=== PATIENT | female | born 1970 | race Caucasian/White ===

== ENCOUNTER → 2021-09-23 14:27 | Outpatient (CLI) | payer MEDICAID, SELFPAY ==
[2021-09-24 09:45] LABS: HIV - WCH Non-Reactive (Nonreactive); Hepatitis B Surface Antibody Non-Reactive; Hepatitis B Surface Antigen Non-Reactive (Nonreactive); Syphilis Antibodies Reactive
[2021-09-25 07:08] LABS: HEPATITIS B SURFACE AG Negative (Negative); Hepatitis A IgM Antibody Negative (Negative); Hepatitis B Core AB IgM Negative (Negative)
[2021-09-25 13:31] LABS: Hep C Antibodies <0.1 s/co ratio (0.0-0.9)
== END ==
PROVIDERS: Referring Provider Dermatology; Visit Provider Dermatology
DX: L08.9 Local infection of the skin and subcutaneous tissue, unspecified (principal)
CPT/HCPCS: 36415; 80074; 86703; 86706; 86780; 87340

== ENCOUNTER 2022-11-18 17:25 | Inpatient (IN) | payer MEDICAID, SELFPAY ==
[2022-11-18 17:30] VITALS: BP 133/81; PULSE 64; RESP 18; TEMP 35.8; O2SAT 96; BMI 30.4
[2022-11-18 17:38] VITALS: BMI 47.6
--- NOTE | 2022-11-18 18:05 | EX.ED.DYSGE1 ---
HPI History of Present Illness Chief Complaint: Confusion Informant: patient and family Onset/Context/Timing Onset: Today Context: Gradual Onset Timing: Continuous Quality: Confusion Location: Generalized Worsened by: Nothing Relieved by: Nothing Narrative Narrative: Patient presents with confusion that became worse today. Patient was admitted to [facility] yesterday and was discharged today. Brother states the patient is more confused today. Brother states patient has not been taking her lactulose as scheduled. Brother states that whenever she misses a dose of lactulose her confusion becomes worse. Brother states that patient told him that she needed to go get her car keys and then went to the refrigerator. Brother states the patient walks out of his house and is unsure where she is going. Patient is confused and is a poor informant. Prior similar symptoms: Yes PFSH [facility] Medical History Acidosis Alcohol abuse Alcoholic cirrhosis of liver without ascites Anxiety and depression Bipolar disorder Cirrhosis Edema Essential (primary) hypertension Hepatic encephalopathy Iron deficiency anemia Lactic acidosis Low urine output Pancytopenia Portal hypertension Splenomegaly Thrombocytopenia Urea cycle metabolism disorder UTI (urinary tract infection) Home Medications buspirone 10 mg tablet 10 mg PO TID 10/28/22 [History Last Taken Unknown] citalopram 40 mg tablet 40 mg PO DAILY 10/28/22 [History Last Taken Unknown] clonidine HCl 0.1 mg tablet 0.1 mg PO PRN 10/28/22 [History Last Taken Unknown] ferrous sulfate 325 mg (65 mg iron) tablet 325 mg PO DAILY 10/28/22 [History Last Taken Unknown] furosemide 20 mg tablet 20 mg PO BID 10/28/22 [History Last Taken Unknown] lactulose 10 gram/15 mL oral solution (Constulose) 45 ml PO Q6H 10/28/22 [History Last Taken Unknown] prazosin 2 mg capsule 2 mg PO QHS 10/28/22 [History Last Taken Unknown] propranolol 10 mg tablet 10 mg PO TID 10/28/22 [History Last Taken Unknown] quetiapine 50 mg tablet 50 mg PO QHS 10/28/22 [History Last Taken Unknown] rifaximin 550 mg tablet (Xifaxan) 550 mg PO BID 10/28/22 [History Last Taken Unknown] Allergy/AdvReac Type Severity Reaction Status Date / Time No Known Allergies Allergy Verified 11/18/22 17:29 Family History Grandmother Breast cancer Surgical History History of ankle surgery Hx of section Hx of cholecystectomy Hx of hand surgery Hx of shoulder surgery Hx of total knee replacement Social History Smoking Status: Current every day smoker tobacco type: e-cigarettes alcohol intake: former year quit: 2021 details: 11/26/21 substance use type: amphetamines ROS ROS ED Constitutional Constitutional ED: Reports chills and subjective; Denies fever(s) Eyes Eyes: Denies blurry vision or change in vision ENT ENT ED: Denies rhinorrhea or sore throat Cardiovascular Cardiovascular: Denies chest pain or palpitations Respiratory/Chest Respiratory/Chest: Denies cough or dyspnea Gastrointestinal Gastrointestinal: Reports nausea; Denies vomiting Genitourinary Genitourinary ED: Denies dysuria or hematuria Musculoskeletal Musculoskeletal: Denies back pain or neck pain Integumentary Denies abscess or rash Neurologic Neurologic: Denies headache(s) or weakness Allergic/Immunologic Allergic/Immunologic ED: Denies mouth swelling or urticaria EXAM Physical Exam Const Vital Signs: 11/18/22 17:30 11/18/22 19:29 Temperature 96.5 F L 97.3 F L Temperature Source Temporal Temporal Pulse Rate 64 73 Respiratory Rate 18 15 Blood Pressure 133/81 H 134/80 H Blood Pressure Mean 98 98 Pulse Ox 96 97 Oxygen Delivery Method Room Air Room Air Positive well nourished, well developed and obese General Appearance ED: well developed and NAD Nutritional Appearance: obese HEENT Reports moist mucous membranes Neck supple and no JVD Resp normal respiratory effort and clear to auscultation bilaterally Cardio regular rate, regular rhythm and no murmurs GI non-tender GI Narrative: There is some mild abdominal distention due to ascites. There is no tenderness, rebound, or guarding. Auscultation: normoactive bowel sounds Palpation: soft Extremity normal to inspection General Extremety ED: Negative for edema or tenderness General Extremity: Negative for edema Neuro CN's II-XII intact bilaterally and no sensory deficits noted Sensorium / Orientation: alert Motor Exam: strength 5/5 throughout Psych mental status grossly normal Skin no rashes or lesions noted MDM MDM MDM Narrative Medical decision making narrative: Differential diagnosis includes hepatic encephalopathy, stroke, anemia, electrolyte abnormality, pancreatitis, infection, and sepsis. CBC will be obtained to assess for leukocytosis and anemia. Comprehensive metabolic profile will be obtained to assess for electrolyte abnormality, renal function, and hepatic function. Lipase will be obtained to check for pancreatitis. Ammonia level will be obtained to check for hepatic encephalopathy. PT was INR and PTT will be obtained to assess for coagulopathy and liver function. CT scan of the brain will be obtained to assess for stroke or intracranial bleeding. Lactate will be obtained to assess for sepsis or infection. Urinalysis will be obtained to check for urinary tract infection and hematuria. Lab Data Attestation: I reviewed the patient's lab results. Lab results narrative: CBC was reviewed. White blood cell count was 4.3. Platelets were 83. Prior outpatient results were reviewed and were similar. PT with INR and PTT were reviewed and were essentially within normal limits. Comprehensive metabolic profile was reviewed. Alkaline phosphatase was mildly elevated at 155 and AST was 43. ALT was normal. Bilirubin was normal. Lipase was reviewed and was normal. Ammonia was reviewed and was elevated at 82. Lactate was reviewed and was normal. Urinalysis was reviewed. There is no evidence of urinary tract infection or hematuria. Labs: Laboratory Results - last 24 hr 11/18/22 11/18/22 11/18/22 17:50 17:50 17:50 WBC 4.3 L RBC 4.70 Hgb 13.0 Hct 41.5 MCV 88.3 MCH 27.7 MCHC 31.3 L RDW Std Deviation 67.9 H RDW Coeff of Stephon 21.8 H Plt Count 83 L MPV 9.8 Immature Gran % (Auto) 0.200 Neut % (Auto) 52.2 Lymph % (Auto) 25.1 [place] % (Auto) 14.1 H Eos % (Auto) 7.5 H Baso % (Auto) 0.9 Absolute Neuts (auto) 2.2 Absolute Lymphs (auto) 1.07 Nucleated RBC % 0 Differential Comment SCANNED Hypochromasia 1+ Anisocytosis 2+ Microcytosis 1+ Macrocytosis 1+ PT 14.9 INR 1.2 APTT 34.2 Sodium 141 Potassium 4.0 Chloride 110 H Carbon Dioxide 26.0 Anion Gap 5 BUN 15 Creatinine 0.81 Estim Creat Clear Calc 68.56 Est GFR (MDRD) Af Amer 95 Est GFR (MDRD) Non-Af 78 BUN/Creatinine Ratio 18.5 Glucose 124 H Lactic Acid Calcium 9.7 Total Bilirubin 0.90 AST 43 H ALT 33 Alkaline Phosphatase 155 H Ammonia Total Protein 6.9 Albumin 3.3 Globulin 3.6 Albumin/Globulin Ratio 0.9 Lipase 187 Urine Color Urine Clarity Urine pH Ur Specific [place] Urine Protein Urine Glucose (UA) Urine Ketones Urine Occult Blood Urine Nitrite Urine Bilirubin Urine Urobilinogen Ur Leukocyte Esterase Urine RBC Urine WBC Ur Squamous Epith Cells Urine Bacteria Urine Mucus 11/18/22 11/18/22 11/18/22 17:50 17:50 17:50 WBC RBC Hgb Hct MCV MCH MCHC RDW Std Deviation RDW Coeff of Stephon Plt Count MPV Immature Gran % (Auto) Neut % (Auto) Lymph % (Auto) [place] % (Auto) Eos % (Auto) Baso % (Auto) Absolute Neuts (auto) Absolute Lymphs (auto) Nucleated RBC % Differential Comment Hypochromasia Anisocytosis Microcytosis Macrocytosis PT INR APTT Sodium Potassium Chloride Carbon Dioxide Anion Gap BUN Creatinine Estim Creat Clear Calc Est GFR (MDRD) Af Amer Est GFR (MDRD) Non-Af BUN/Creatinine Ratio Glucose Lactic Acid 1.4 Calcium Total Bilirubin AST ALT Alkaline Phosphatase Ammonia 82.0 H Total Protein Albumin Globulin Albumin/Globulin Ratio Lipase Urine Color Yellow Urine Clarity Clear Urine pH 6.0 Ur Specific [place] 1.020 Urine Protein Negative Urine Glucose (UA) NEGATIVE Urine Ketones Negative Urine Occult Blood Negative Urine Nitrite Negative Urine Bilirubin 1 H Urine Urobilinogen 8 H Ur Leukocyte Esterase Negative Urine RBC 0 SEEN Urine WBC 0-5 SEEN Ur Squamous Epith Cells 0-5 SEEN Urine Bacteria RARE Urine Mucus 0 SEEN Treatment and Re-Evaluation Narrative: Patient and her brother were advised of her findings. Patient was given a dose of lactulose here initially. Patient was given a repeat dose of lactulose. Case was discussed with the hospitalist. She will admit the patient to her service. Patient and brother understand and are agreeable with the plan. All questions were answered. Discharge Plan Dx/Rx/DC Orders Clinical Impression: Hepatic encephalopathy, Thrombocytopenia, Cirrhosis of liver Disposition Disposition: Acute Care [facility]
[2022-11-18 18:21] LABS: Mucous, Urine 0 SEEN /hpf (<or=2+); Red Blood Cells-Urine 0 SEEN /hpf (0-5)
[2022-11-18 18:23] LABS: Absolute Lymphocyte Count 1.07 X10^3/uL (0.83-4.51); Absolute Neutrophil Count 2.2 X10^3/uL (2.0-7.7); Basophil# 0.04 X10^3/uL; Basophil% 0.9 % (0-1); Eosinophil# 0.32 X10^3/uL; Eosinophils% 7.5 % (0-5); Hematocrit 41.5 % (37-47); Lymphocyte # 1.07 X10^3/ul (0.83-4.51); Lymphocyte % 25.1 % (19-41); Mean Corp Hgb Conc 31.3 g/dL (32-36); Mean Corpuscular Hgb 27.7 pg (27.0-32.0); Mean Corpuscular Volume 88.3 fL (81-99); Mean Platelet Vol. 9.8 fl (6.2-12.0); Monocyte% 14.1 % (0-10); NRBC Flagged by Analyzer 0 % (0-5); Neutrophil # 2.23 X10^3/uL (2.7-7.7); Neutrophil % 52.2 % (47-70); POSITIVE COUNT YES; POSITIVE MORPHOLOGY YES; Platelet Count 83 K/mm3 (150-450); RBC Distribution Width CV 21.8 % (11.6-14.6); RBC Distribution Width SD 67.9 fl (35.1-43.9); White Blood Count 4.3 K/mm3 (4.4-11.0)
[2022-11-18 18:25] LABS: Differential Indicated SCAN CRITERIA MET
[2022-11-18 18:31] LABS: International Normalized Ratio 1.2; Prothrombin Time (Protime)PT. 14.9 SECONDS (11.7-14.9)
[2022-11-18 18:32] LABS: Partial Thromboplast Time 34.2 Seconds (24.1-36.2)
[2022-11-18 18:52] LABS: Color, Urine Yellow (Yellow); Glucose, Dipstick NEGATIVE (Normal); Urine Clarity Clear (Clear)
[2022-11-18 18:53] LABS: Ketone-Dipstick Negative (Negative); Leukocyte Esterase-Dipstick Negative /ul (Negative); Nitrite-Dipstick Negative (Negative); Occult Blood-Urine Negative /ul (Negative); Protein-Dipstick Negative (Negative); Urine Bilirubin Dipstick 1 mg/dL (Negative); Urine Urobilinogen 8 mg/dl (Normal)
[2022-11-18 18:54] LABS: White Blood Cells 0-5 SEEN /hpf (0-5)
[2022-11-18 18:55] LABS: Bacteria RARE /hpf (None Seen); Differential Comment SCANNED; Lactic Acid 1.4 mmol/L (0.4-1.9); Squamous Epithelial Cells - UA 0-5 SEEN /hpf (5-10)
[2022-11-18 18:56] LABS: Anisocytosis 2+; Hypochromasia 1+; Macrocytosis 1+; Microcytosis 1+
[2022-11-18 18:57] LABS: ALB/GLOB Ratio 0.9 RATIO (0.9-2.4); AST(SGOT) 43 U/L (15-37); Alanine Aminotransfer ALT/SGPT 33 U/L (13-56); Albumin, Serum 3.3 g/dL (3.2-5.0); Alkaline Phosphatase 155 U/L (45-117); Anion Gap 5 (5-15); BUN 15 mg/dL (7-18); BUN/Creat Ratio 18.5 RATIO (10-20); Calcium,Total 9.7 mg/dL (8.5-10.1); Chloride 110 mmol/L (98-107); Creatinine, Serum 0.81 mg/dL (0.55-1.02); EST Glomerular Filtration Rate 78 mL/min (>60); Est Glom Filt Rate - Afr Amer 95 mL/min (>60); Estimated Creatinine Clearance 68.56 ml/min; Globulin 3.6 g/dL (2.2-4.2); Glucose 124 mg/dL (74-106); Lipase 187 U/L (73-393); Protein, Total 6.9 g/dL (6.4-8.2); Sodium Level 141 mmol/L (136-145)
[2022-11-18] MEDS: Lactulose 20 GM/30 ML UDC 10 GM PO ×2 (19:25→20:21)
[2022-11-18 19:29] VITALS: BP 134/80; PULSE 73; RESP 15; TEMP 36.3; O2SAT 97
--- NOTE | 2022-11-18 20:19 | PCM.HP.STD ---
HPI - General General Date of Admission: 11/18/22 Date of Service: 11/18/22 Chief Complaint: Confusion. HPI Narrative The patient is a 52 y/o F w/ PMHx: Morbid Obesity, Chronic EtOH Liver Cirrhosis w/ associated Chronic pancytopenia/Portal HTN/Splenomegaly reporting sobriety since 2021, Polysubstance abuse (Meth), HTN, HLD, Anxiety and Depression/Bipolar disorder, Chronic anemia/Fe deficiency anemia, Former cigarette tobacco use transitioned to vaping who presents to the [facility] ED on 11/18/22 with history of increased confusion over the last several days, progressively worsening on day of presentation recently admitted at [place] in hospital day prior however she was discharged today despite her increased confusion per family report and reportedly not taking her scheduled lactulose as a result with progressively worsening confusion prompting family eventually bring her in for evaluation. Patient does admit that she some times when she is confused has difficulty remembering to take her lactulose regimen. She does state that she remains sober and clean since 11/26/2021. Work-up in the ED included T97.3, heart 73, BP 134/80, respiratory rate 15, 97% on room air, CBC with WC 4.3, hemoglobin 13, platelet 83 without marked shift, unremarkable coags, CMP with chloride 110, glucose 124, hepatic profile with total bili 0.90, AST/ALT 43/33, alk phos 155, ammonia level 82, lipase 187, urinalysis with no obvious evidence of UTI. In the ED patient ministered lactulose 10 mg p.o. x1. [facility] Medical History Acidosis Alcohol abuse Alcoholic cirrhosis of liver without ascites Anxiety and depression Bipolar disorder Cirrhosis Edema Essential (primary) hypertension Hepatic encephalopathy Iron deficiency anemia Lactic acidosis Low urine output Pancytopenia Portal hypertension Splenomegaly Thrombocytopenia Urea cycle metabolism disorder UTI (urinary tract infection) Home Medications buspirone 10 mg tablet 10 mg PO TID 10/28/22 [History Last Taken Unknown] citalopram 40 mg tablet 40 mg PO DAILY 10/28/22 [History Last Taken Unknown] clonidine HCl 0.1 mg tablet 0.1 mg PO PRN 10/28/22 [History Last Taken Unknown] ferrous sulfate 325 mg (65 mg iron) tablet 325 mg PO DAILY 10/28/22 [History Last Taken Unknown] furosemide 20 mg tablet 20 mg PO BID 10/28/22 [History Last Taken Unknown] lactulose 10 gram/15 mL oral solution (Constulose) 45 ml PO Q6H 10/28/22 [History Last Taken Unknown] prazosin 2 mg capsule 2 mg PO QHS 10/28/22 [History Last Taken Unknown] propranolol 10 mg tablet 10 mg PO TID 10/28/22 [History Last Taken Unknown] quetiapine 50 mg tablet 50 mg PO QHS 10/28/22 [History Last Taken Unknown] rifaximin 550 mg tablet (Xifaxan) 550 mg PO BID 10/28/22 [History Last Taken Unknown] Allergy/AdvReac Type Severity Reaction Status Date / Time No Known Allergies Allergy Verified 11/18/22 17:29 Family History Grandmother Breast cancer other (Patient denies any marked maternal or paternal family history interim parents including heart disease, diabetes, cancer, substance abuse.) Surgical History History of ankle surgery Hx of section Hx of cholecystectomy Hx of hand surgery Hx of shoulder surgery Hx of total knee replacement Social History (Updated 11/18/22 @ 20:[address] Sherri Dave MD) Smoking Status: Current every day smoker tobacco type: e-cigarettes Electronic Cigarette Use: with nicotine how long ago did patient quit smoking: Transitioned from cig tob to vaping, heavy currently. alcohol intake: former year quit: 2021 details: 11/26/21 substance use type: other details: Former amphetamine/meth use, clean since 11/26/21. ROS ROS Narrative Admission Review of Systems: CONSTITUTIONAL: No weight loss, fever, chills, + weakness or fatigue. HEENT: Eyes: No visual loss, blurred vision, double vision or yellow sclerae. Ears, Nose, Throat: No hearing loss, sneezing, congestion, runny nose or sore throat. SKIN: No rash or itching, lesions, wounds. CARDIOVASCULAR: No chest pain, chest pressure or chest discomfort, palpitations, edema, orthopnea, syncopal events. RESPIRATORY: No shortness of breath, cough or sputum, wheezing, hemoptysis. GASTROINTESTINAL: + anorexia, nausea, No vomiting or diarrhea, abdominal pain, melena, BRBPR. GENITOURINARY: No dysuria, frequency, urgency or retention. NEUROLOGICAL: + Confusion. No headache, dizziness, syncope, paralysis, ataxia, numbness or tingling in the extremities, focal weakness, change in bowel or bladder control, seizure. MUSCULOSKELETAL: + muscle, back pain, joint pain or stiffness. HEMATOLOGIC: + anemia, bleeding or bruising. LYMPHATICS: No enlarged nodes. No history of splenectomy. PSYCHIATRIC: + history of depression or anxiety. ENDOCRINOLOGIC: No reports of sweating, cold or heat intolerance. No polyuria or polydipsia. ALLERGIES: No history of asthma, hives, eczema or rhinitis. Vital Signs Vital Signs Vital Signs: 11/18/22 17:30 11/18/22 19:29 Temperature 96.5 F L 97.3 F L Temperature Source Temporal Temporal Pulse Rate 64 73 Respiratory Rate 18 15 Blood Pressure 133/81 H 134/80 H Blood Pressure Mean 98 98 Pulse Ox 96 97 Oxygen Delivery Method Room Air Room Air Weight Weight: 277 lb 5.464 oz Body Mass Index (BMI) 47.6 Physical Exam Narrative Physical Examination: General: Awake, alert, oriented to self, place and some recent events but still having difficulty recalling the last several days and per family has not been herself and not able to function appropriately, confusing objects, currently remain cooperative, seated upright in the ED, fatigued otherwise no acute distress. Skin: Normal color, normal turgor, no icterus, no cyanosis. HEENT: AT/NC, EOMI, PERRLA, mildly dry MM, no carotid bruits or JVD noted; however, thickened neck makes evaluation to. Lungs: Diminished, greater bases appropriate effort, no rales, ronchi or wheezing. Heart: Currently regular rate and rhythm; no gallop, rub audible. Abdomen: Soft, morbidly obese, NTTP, difficult to assess distention given habitus, normal BS, difficult to assess HSM given habitus Extremities: No cyanosis, clubbing, or edema. Neurological: Patient awake, alert, oriented as noted cognitive function improving but per family still not baseline intact with confusion; pupils equally reactive to light and accommodation, cranial nerves II-XII grossly normal, moving all 4 extremities, no focal deficits, strength mildly to moderately global decrease secondary to acute presentation. Psychiatric: Affect appears mildly fatigued, no acute evidence of depressive or anxiety feelings but does have underlying history. Results Lab / Micro Data Result Diagrams: 11/18/22 17:50 11/18/22 17:50 Labs: Laboratory Results - last 24 hr 11/18/22 17:50: WBC 4.3 L, RBC 4.70, Hgb 13.0, Hct 41.5, MCV 88.3, MCH 27.7, MCHC 31.3 L, RDW Std Deviation 67.9 H, RDW Coeff of Stephon 21.8 H, Plt Count 83 L, MPV 9.8, Immature Gran % (Auto) 0.200, Neut % (Auto) 52.2, Lymph % (Auto) 25.1, [place] % (Auto) 14.1 H, Eos % (Auto) 7.5 H, Baso % (Auto) 0.9, Absolute Neuts (auto) 2.2, Absolute Lymphs (auto) 1.07, Nucleated RBC % 0, Differential Comment SCANNED, Hypochromasia 1+, Anisocytosis 2+, Microcytosis 1+, Macrocytosis 1+ 11/18/22 17:50: PT 14.9, INR 1.2, APTT 34.2 11/18/22 17:50: Sodium 141, Potassium 4.0, Chloride 110 H, Carbon Dioxide 26.0, Anion Gap 5, BUN 15, Creatinine 0.81, Estim Creat Clear Calc 68.56, Est GFR (MDRD) Af Amer 95, Est GFR (MDRD) Non-Af 78, BUN/Creatinine Ratio 18.5, Glucose 124 H, Calcium 9.7, Total Bilirubin 0.90, AST 43 H, ALT 33, Alkaline Phosphatase 155 H, Total Protein 6.9, Albumin 3.3, Globulin 3.6, Albumin/Globulin Ratio 0.9, Lipase 187 11/18/22 17:50: Ammonia 82.0 H 11/18/22 17:50: Lactic Acid 1.4 11/18/22 17:50: Urine Color Yellow, Urine Clarity Clear, Urine pH 6.0, Ur Specific [place] 1.020, Urine Protein Negative, Urine Glucose (UA) NEGATIVE, Urine Ketones Negative, Urine Occult Blood Negative, Urine Nitrite Negative, Urine Bilirubin 1 H, Urine Urobilinogen 8 H, Ur Leukocyte Esterase Negative, Urine RBC 0 SEEN, Urine WBC 0-5 SEEN, Ur Squamous Epith Cells 0-5 SEEN, Urine Bacteria RARE, Urine Mucus 0 SEEN Assessment & Plan Assessment/Plan (1) Hepatic encephalopathy: PLAN: Plan The patient is a 52 y/o F w/ PMHx: Morbid Obesity, Chronic EtOH Liver Cirrhosis w/ associated Chronic pancytopenia/Portal HTN/Splenomegaly reporting sobriety since 2021, Polysubstance abuse (Meth), HTN, HLD, Anxiety and Depression/Bipolar disorder, Chronic anemia/Fe deficiency anemia, Former cigarette tobacco use transitioned to vaping who presents to the [facility] ED on 11/18/22 with history of increased confusion over the last several days, progressively worsening on day of presentation recently admitted at [place] in hospital day prior however she was discharged today despite her increased confusion per family report and reportedly not taking her scheduled lactulose as a result with progressively worsening confusion prompting family eventually bring her in for evaluation. #1. Acute hepatic encephalopathy with underlying chronic alcoholic liver cirrhosis with associated chronic pancytopenia/portal hypertension/spinal megaly reportedly so: Will admit to medical surgical floor, maintain on low Na/DM diet, will initiate aggressive lactulose regimen, continue patient home rifaximin, propranolol, Lasix home regimen, per review of current list not on spironolactone. We will continue closely monitor, maintain on fall and aspiration precautions and if necessary may involve GI #2. Anxiety and depression: We will continue patient home citalopram and BuSpar as well as Seroquel regimen once confusion has improved given acute presentation hepatic encephalopathy. #3. Chronic anemia, iron deficiency anemia: Admission hemoglobin 13, stable, continue trending and iron supplementation as able. #4. Hypertension: Continue home regimen including Lasix, prazosin, propranolol with hold parameters as needed, PRN hydralazine. #5. Hyperlipidemia: Not on statin therapy, defer given underlying history. #6. Tobacco Abuse: Prior cigarette tobacco use with transition to vaping encouraged vaping tobacco cessation, inpatient consultation per RT, NR if desired. #7. Former alcohol abuse with associated chronic alcoholic liver cirrhosis as noted #1: Encourage continued sobriety, case management consulted. #8. Former polysubstance abuse: Notes history of previous amphetamine/methamphetamine, encourage continued clean status, reports clean since 11/26/2021. #9. Obesity: Weight loss and lifestyle changes encouraged. #10. DVT prophylaxis: SCDs, given liver disease will hold on chemoprophylaxis, encourage ambulation is improving. Admission Evaluation Time spent evaluating chart, patient history, patient evaluation, care planning and discussion with specialists: 76 minutes. Charges/Coding Visit Charges Inpatient E&M: 25737 Init Hosp L3
[2022-11-18 20:43] LABS: Magnesium 2.2 mg/dL (1.6-2.6); Phosphorus 3.6 mg/dL (2.5-4.9)
[2022-11-18 21:15] VITALS: BMI 42.9
[2022-11-18 21:20] VITALS: BP 151/87; PULSE 67; RESP 18; TEMP 37.2; O2SAT 97
[2022-11-18] MEDS: busPIRone 5 MG Tablet 10 MG PO (22:37)
[2022-11-18] MEDS: Furosemide 20 MG Tablet PO (22:37)
[2022-11-18] MEDS: QUEtiapine 25 MG Tablet 50 MG PO (22:37)
[2022-11-18] MEDS: MELATONIN 3 MG TABLET PO (22:37)
[2022-11-18] MEDS: rifAXIMin 550 MG Tablet PO (22:37)
[2022-11-18] MEDS: Doxazosin 1 MG Tablet 2 MG PO (22:37)
[2022-11-18] MEDS: Propranolol 10 MG Tablet PO (22:37)
[2022-11-18] MEDS: Acetaminophen 500 MG Tablet PO (22:37)
[2022-11-18] MEDS: Ondansetron 4 MG/2 ML Vial IV (22:43)
[2022-11-18] MEDS: 0.9% Saline Lock 10 ML Syringe IV (22:43)
[2022-11-19 04:01] VITALS: BP 124/67; PULSE 68; RESP 18; TEMP 36.9; O2SAT 96
[2022-11-19] MEDS: Lactulose 20 GM/30 ML UDC PO ×4 (05:22→21:15)
[2022-11-19] MEDS: Propranolol 10 MG Tablet PO ×3 (05:22→21:05)
[2022-11-19] MEDS: busPIRone 5 MG Tablet 10 MG PO (05:22)
[2022-11-19 06:10] LABS: Absolute Lymphocyte Count 1.38 X10^3/uL (0.83-4.51); Absolute Neutrophil Count 2.3 X10^3/uL (2.0-7.7); Basophil# 0.05 X10^3/uL; Eosinophil# 0.38 X10^3/uL; Eosinophils% 7.9 % (0-5); Hematocrit 39.5 % (37-47); Hemoglobin 12.6 g/dL (12.0-15.0); Lymphocyte # 1.38 X10^3/ul (0.83-4.51); Lymphocyte % 28.8 % (19-41); Mean Corp Hgb Conc 31.9 g/dL (32-36); Mean Corpuscular Hgb 27.9 pg (27.0-32.0); Mean Corpuscular Volume 87.6 fL (81-99); Monocyte% 14.6 % (0-10); NRBC Flagged by Analyzer 0 % (0-5); Neutrophil # 2.27 X10^3/uL (2.7-7.7); Neutrophil % 47.3 % (47-70); POSITIVE COUNT YES; POSITIVE MORPHOLOGY YES; Platelet Count 86 K/mm3 (150-450); RBC Distribution Width CV 21.9 % (11.6-14.6); RBC Distribution Width SD 67.6 fl (35.1-43.9); Red Blood Count 4.51 M/mm3 (4.2-5.4); White Blood Count 4.8 K/mm3 (4.4-11.0)
[2022-11-19 06:25] LABS: Differential Indicated SCAN CRITERIA MET
[2022-11-19 06:48] LABS: ALB/GLOB Ratio 0.8 RATIO (0.9-2.4); AST(SGOT) 45 U/L (15-37); Alanine Aminotransfer ALT/SGPT 32 U/L (13-56); Albumin, Serum 3.1 g/dL (3.2-5.0); Alkaline Phosphatase 142 U/L (45-117); Anion Gap 9 (5-15); BUN 14 mg/dL (7-18); BUN/Creat Ratio 16.8 RATIO (10-20); Calcium,Total 9.2 mg/dL (8.5-10.1); Chloride 108 mmol/L (98-107); Creatinine, Serum 0.84 mg/dL (0.55-1.02); EST Glomerular Filtration Rate 76 mL/min (>60); Est Glom Filt Rate - Afr Amer 92 mL/min (>60); Estimated Creatinine Clearance 74.45 ml/min; Globulin 3.7 g/dL (2.2-4.2); Glucose 126 mg/dL (74-106); Potassium 3.7 mmol/L (3.5-5.1); Protein, Total 6.8 g/dL (6.4-8.2); Sodium Level 140 mmol/L (136-145)
[2022-11-19 06:57] LABS: Anisocytosis 2+; Platelet Estimate MOD DEC (ADEQ)
[2022-11-19 08:30] VITALS: O2SAT 96
[2022-11-19 08:43] VITALS: BP 117/52; PULSE 64; RESP 18; TEMP 36.6; O2SAT 96
[2022-11-19] MEDS: Ferrous Sulfate 325 MG Tablet PO (08:51)
[2022-11-19] MEDS: Citalopram 40 MG TABLET PO (08:51)
[2022-11-19] MEDS: rifAXIMin 550 MG Tablet PO ×2 (08:51→21:05)
[2022-11-19] MEDS: Furosemide 20 MG Tablet PO ×2 (08:51→17:25)
--- NOTE | 2022-11-19 10:25 | PCM.PN.HOSP ---
Subjective Subjective Follow-up for decompensated alcoholic cirrhosis with hepatic encephalopathy. Patient also has abdominal distention probably ascites. Objective Data Objective Data Vital Signs: Vital Signs Temp Pulse Resp BP Pulse Ox O2 Del Method 97.8 F 64 18 117/52 L 96 Room Air 11/19/22 08:43 11/19/22 08:43 11/19/22 08:43 11/19/22 08:43 11/19/22 08:43 11/19/22 08:53 Oxygen Delivery Method Room Air Weight: 274 lb 4.081 oz Body Mass Index (BMI) 42.9 Intake & Output: Intake and Output for Last 24 Hours 11/17/22 11/18/22 11/19/22 23:59 23:59 23:59 Intake Total 400 / 400 Balance 400 / 400 Lab / Micro Data Result Diagrams: 11/19/22 05:55 11/19/22 05:55 Labs: Laboratory Results - last 24 hr 11/18/22 17:50: WBC 4.3 L, RBC 4.70, Hgb 13.0, Hct 41.5, MCV 88.3, MCH 27.7, MCHC 31.3 L, RDW Std Deviation 67.9 H, RDW Coeff of Stephon 21.8 H, Plt Count 83 L, MPV 9.8, Immature Gran % (Auto) 0.200, Neut % (Auto) 52.2, Lymph % (Auto) 25.1, Dougherty % (Auto) 14.1 H, Eos % (Auto) 7.5 H, Baso % (Auto) 0.9, Absolute Neuts (auto) 2.2, Absolute Lymphs (auto) 1.07, Nucleated RBC % 0, Differential Comment SCANNED, Hypochromasia 1+, Anisocytosis 2+, Microcytosis 1+, Macrocytosis 1+ 11/18/22 17:50: PT 14.9, INR 1.2, APTT 34.2 11/18/22 17:50: Sodium 141, Potassium 4.0, Chloride 110 H, Carbon Dioxide 26.0, Anion Gap 5, BUN 15, Creatinine 0.81, Estim Creat Clear Calc 68.56, Est GFR (MDRD) Af Amer 95, Est GFR (MDRD) Non-Af 78, BUN/Creatinine Ratio 18.5, Glucose 124 H, Calcium 9.7, Total Bilirubin 0.90, AST 43 H, ALT 33, Alkaline Phosphatase 155 H, Total Protein 6.9, Albumin 3.3, Globulin 3.6, Albumin/Globulin Ratio 0.9, Lipase 187 11/18/22 17:50: Ammonia 82.0 H 11/18/22 17:50: Lactic Acid 1.4 11/18/22 17:50: Urine Color Yellow, Urine Clarity Clear, Urine pH 6.0, Ur Specific [place] 1.020, Urine Protein Negative, Urine Glucose (UA) NEGATIVE, Urine Ketones Negative, Urine Occult Blood Negative, Urine Nitrite Negative, Urine Bilirubin 1 H, Urine Urobilinogen 8 H, Ur Leukocyte Esterase Negative, Urine RBC 0 SEEN, Urine WBC 0-5 SEEN, Ur Squamous Epith Cells 0-5 SEEN, Urine Bacteria RARE, Urine Mucus 0 SEEN 11/18/22 17:50: Phosphorus 3.6, Magnesium 2.2 11/19/22 05:55: WBC 4.8, RBC 4.51, Hgb 12.6, Hct 39.5, MCV 87.6, MCH 27.9, MCHC 31.9 L, RDW Std Deviation 67.6 H, RDW Coeff of Stephon 21.9 H, Plt Count 86 L, MPV 10.0, Immature Gran % (Auto) 0.400, Neut % (Auto) 47.3, Lymph % (Auto) 28.8, Dougherty % (Auto) 14.6 H, Eos % (Auto) 7.9 H, Baso % (Auto) 1.0, Absolute Neuts (auto) 2.3, Absolute Lymphs (auto) 1.38, Nucleated RBC % 0, Platelet Estimate MOD DEC, Anisocytosis 2+ 11/19/22 05:55: Sodium 140, Potassium 3.7, Chloride 108 H, Carbon Dioxide 23.0, Anion Gap 9, BUN 14, Creatinine 0.84, Estim Creat Clear Calc 74.45, Est GFR (MDRD) Af Amer 92, Est GFR (MDRD) Non-Af 76, BUN/Creatinine Ratio 16.8, Glucose 126 H, Calcium 9.2, Total Bilirubin 0.90, AST 45 H, ALT 32, Alkaline Phosphatase 142 H, Total Protein 6.8, Albumin 3.1 L, Globulin 3.7, Albumin/Globulin Ratio 0.8 L 11/19/22 05:55: Ammonia 86.0 H Physical Exam Narrative Physical exam General: Lethargic, oriented to place and person but disoriented to time. Intermittent confusion HEENT: Atraumatic, PERRLA, EOMI, Normocephalic Oral: Oral mucosa dry. No Gingival or Mucosal Lesions/ Ulcerations Neck: Supple, No JVD, Negative Carotid Bruits Lungs: Air entry diminished in bilateral lung bases. No crepitation/rhonchi Cardiovascular: Regular rate, Regular Rhythm, Normal S1, Normal S2, No murmurs Abdomen: Soft, distended abdomen, shifting dullness present. Ascites. Bowel Sounds Present : No renal angle tenderness. No suprapubic tenderness. Extremities: Bilateral 2+ below-knee pitting edema, Capillary Refill Less than 3 Seconds Skin: No rashes, No breakdown Musculoskeletal: No Tenderness to Palpation of Joints or Extremities Neurological: Cranial nerves II-XII grossly intact, DTR 2+/4 and Symmetrical, Neuro grossly intact Psych/Mental Status: Flat affect, mild amnesia. Assessment & Plan Assessment/Plan (1) Hepatic encephalopathy: PLAN: Plan The patient is a 52 y/o F with history of alcoholic cirrhosis was admitted for confusion, altered mental status consistent with hepatic encephalopathy. 1. Acute hepatic encephalopathy due to decompensated alcoholic cirrhosis with portal hypertension, thrombocytopenia and ascites: Patient was discharged from [place] on the day of admission and was not taking lactulose. Patient is still confused in the morning. Ask repetitive questions and not able to retain answers. Continue lactulose, rifaximin, Lasix and add spironolactone. Strict intake and output, fluid restriction less than 1500 mL, daily weight monitoring, kidney and electrolytes monitoring. Patient has not seen wringer machine operator in a long time. She has appointment with Dr. Ramos. Did not had EGD. Denies recent history of hematemesis or melena. Ultrasound-guided paracentesis with lab analysis ordered. Patient is states he is sober for about 1 year. She needs to be further follow-up with tertiary care for liver transplant evaluation and listing #2. Anxiety and depression: Discontinue citalopram and BuSpar as well as Seroquel as needed regimen as patient is confused and resume once she is more alert. #3. Chronic anemia, iron deficiency anemia: Admission hemoglobin 13, and mild ascites hemoglobin is on baseline. #4. Hypertension: Continue home regimen including Lasix, prazosin, propranolol with hold parameters as needed, PRN hydralazine. #5. Hyperlipidemia: Not on statin therapy, defer given underlying history. #6. Tobacco Abuse: Prior cigarette tobacco use with transition to vaping encouraged vaping tobacco cessation, inpatient consultation per RT, NR if desired. #7. Former alcohol abuse with associated chronic alcoholic liver cirrhosis as noted #1: Encourage continued sobriety, case management consulted. #8. Former polysubstance abuse: Notes history of previous amphetamine/methamphetamine, encourage continued clean status, reports clean since 11/26/2021. #9. Obesity: Weight loss and lifestyle changes encouraged. #10. DVT prophylaxis: SCDs, given liver disease will hold on chemoprophylaxis, encourage ambulation is improving. Total time of the visit including total time spent in counseling or coordination of care, (more than 50% of the total time, spent in obtaining medical information from nurses and other ancillary care providers,explaining to the patient about labs, imaging, diagnosis and management of active complex medical conditions), medical record review, review of labs and imaging is 40 minutes. Charges/Coding Visit Charges Inpatient E&M: 12381 Subs Hosp L3
--- NOTE | 2022-11-19 11:10 | CASEMGMT ---
Addendum entered by Adriana Root 11/19/22 15:14: TC back to [facility], appt rescheduled for Nov 24 at 2pm. BECKA JESSIAC in to pt room to make aware, written on her board. Pt will set up transportation for herself. Pt states she does not know about the C yet, she will continue to think about it. Addendum entered by Adriana Root 11/19/22 13:54: TC to [facility] to reschedule pt appt, left message to cancel today's appt and asked for returned call to reschedule. Addendum entered by Adriana Root 11/19/22 12:13: BECKA JESSICA in to pt room, pt aware that Luz Dhaliwal is in [place]. Pt is agreeable to BECKA JESSICA to reschedule appt and she will set up her transportation. She prefers an afternoon appt. Discussed with her her brother's concerns with her taking her medications as ordered. Pt became upset. She states she does not want the [facility] but fine, do whatever he wants. Pt states that she will think about the C and asks BECKA JESSICA to check back. TC to Luz Dhaliwal's office, office is closed at this time. Original Note: 1057-Received tc from Estrella at [facility] who states they were ordered to see pt for medication set up. She states pt was to see NURSE CASE MANAGER Luz Dhaliwal for establishment of PCP and then they were to see her. BECKA JESSICA Assessment: Face to Face with pt for initial transition planning/care coordination assessment. BECKA JESSICA introduced self and role at [facility], pt voices understanding and consents to assessment. Pt is A/O x4 and answers all questions appropriately at this time. Pt able to carry on conversation for 15 minutes and was alert and oriented throughout. Care providers, pharmacy, and demographics verified/updated. Admitting Dx: hepatic encephalopathy PCP:Pt states she was supposed to have had an appt with Luz Dhaliwal today to establish for PCP. Pt states she is in [place] and she does not want to have a PCP in [place]. Specialists:Pt to see Dr.Friend PREM on 12/10 and she sees a counselor weekly at [facility] Preferred Pharmacy: [facility] Insurance: [facility] Prescription Benefit: yes LNOK: Vaibhav Mckeon, brother Living Arrangements: Pt lives with two brothers Vaibhav and Shon in a mobile home with 4 steps to enter with a rail. Pt reports she is I in ADL's and denies concerns at home. Transportation: Pt does not drive. She uses [employer] for transportation. DME/HHC/SNF: Pt has a rx for BSC from [facility] but did not have a chance to pick it up. Pt was set up with [facility] from [facility], pt states she does not remember this being set up. She states she does not need help with her meds. She states she takes her meds but her brother does not believe her. She states she has to plan her med times around what she is doing for the day as it causes BM's. Pt currently does not want the [facility] to see her. Pt denies SNF stays. Pt states no concerns with going home at time of dc. She is agreeable to BECKA JESSICA calling her brother Vaibhav to discuss dc plan. Pt states she will be sober 1 year on Nov 25. She states she used AA meetings and a sponsor that helped her with this. She inquires about [employer] taking her to AA meetings. She states she is currently not active with them. Notified SW of this question. Pt states no further concerns/needs. CM to follow. Advised pt to ask CM if any further question/concerns/needs arise, voices understanding. Pt Goal: Home Plan: Home vs Home with [facility] 1147-TC to pt brother Vaibhav, he states pt needs assistance with her meds. He states she does not take as ordered and she goes a couple of days and is fine but then needs rehospitalized. States pt has been to [facility] multiple times. He states he works trial justice and he cannot risk losing his job. He would like to see pt go to a facility for medical stabilization. He states pt does not want to go. He is aware that pt is alert and oriented. He would like [facility] to see her. BECKA JESSICA to follow.
--- NOTE | 2022-11-19 14:14 | CASEMGMT ---
Social Work Referral from RNCM that pt is inquiring about transportation to AA meetings. Phone call to [facility] [facility] who confirms they will transport to evening AA meetings. Pt updated and provided with written information on [facility]. Pt appreciative of information. ADALBERTO العراقي
--- NOTE | 2022-11-19 14:19 | CASEMGMT ---
Social Work Pt denies having completed living will or HCPOA. Pt is interested in information but not interested in completing at this time. SW provided blank forms and copy of Advance Directive Rack Card. Pt notified that SW can assist if pt would like to complete. ADALBERTO العراقي
[2022-11-19 14:31] VITALS: BP 109/57; PULSE 69; RESP 18; TEMP 36.9; O2SAT 94
[2022-11-19] MEDS: Spironolactone 25 MG Tablet PO (14:37)
--- NOTE | 2022-11-19 15:35 | CHAPLAIN ---
Type of Pastoral Visit _x__ Initial Visit ___ Follow-up Visit ___ On-call Visit ___ General Patient Visit ___ Spiritual Assessment ___ Family Conference ___ Bereavement ___ Rapid Response ___ Code Blue ___ Other (describe below) Pastoral Care Referral From _x__ Patient ___ Family ___ Nurse ___ Physician ___ Sales Department Manager ___ Carbon Cleaner ___ Other (describe below) Sacrament/Intervention _x__ Active listening ___ Anointing ___ Latter-Day ___ Bereavement ___ Communion _x__ Cynthia exploration ___ _x__ Life review _x__ Prayer ___ Reconciliation ___ Sacrament of Sick _x__ Supportive presence ___ Wedding ___ Other (describe below) Pastoral Comments patient spoke of her situation and feelings; pt requested prayer for procedure tomorrow; pt asked questions about finding a yazidi in her area; researched churches for her and gave same information; prayer and presence
[2022-11-19 19:45] VITALS: O2SAT 97
[2022-11-19 20:30] VITALS: BP 111/60; PULSE 70; RESP 18; TEMP 37; O2SAT 96
[2022-11-19] MEDS: Acetaminophen 500 MG Tablet PO (21:02)
[2022-11-19] MEDS: MELATONIN 3 MG TABLET PO (21:03)
[2022-11-19] MEDS: QUEtiapine 25 MG Tablet 50 MG PO (21:03)
[2022-11-19] MEDS: Doxazosin 1 MG Tablet 2 MG PO (21:04)
[2022-11-19] MEDS: busPIRone 5 MG Tablet PO (21:10)
[2022-11-20 05:05] VITALS: BP 123/62; PULSE 72; RESP 18; TEMP 36.6; O2SAT 94
[2022-11-20] MEDS: busPIRone 5 MG Tablet PO (06:29)
[2022-11-20] MEDS: Lactulose 20 GM/30 ML UDC PO ×2 (06:29→13:14)
[2022-11-20] MEDS: Propranolol 10 MG Tablet PO (06:29)
[2022-11-20 07:54] LABS: AST(SGOT) 45 U/L (15-37); Alanine Aminotransfer ALT/SGPT 34 U/L (13-56); Albumin, Serum 3.1 g/dL (3.2-5.0); Alkaline Phosphatase 148 U/L (45-117); Bilirubin, Direct 0.34 mg/dL (0.00-0.30); Globulin 3.4 g/dL (2.2-4.2); Protein, Total 6.5 g/dL (6.4-8.2)
[2022-11-20 08:03] VITALS: BP 119/65; PULSE 58; RESP 16; TEMP 37.1; O2SAT 93
[2022-11-20] MEDS: Ferrous Sulfate 325 MG Tablet PO (08:14)
--- NOTE | 2022-11-20 10:02 | PCM.DC ---
Discharge Instructions Diet Discharge Diet: 8 Cup Fluid Restriction and 2000 mg Sodium Diet Activity Discharge Activity: Return to Normal Activity and May Not Drive Weight Bearing Status: Weight bearing as tolerated Dressing / Incision Call your doctor if you observe: Fever of 101 or Higher, Coldness, Increased Pain, Numbness or Tingling, Change in Color, Inability to urinate, Inability to have a bowel movement, Using more than 1 pad per hour, Shortness of breath, Dizziness, Fainting spells, Swelling in the ankles, Chest pain, Prolonged hiccupping, Increased palpitations (irregular heartbeat) and Calf discomfort Follow Up Care When: IN 2 WEEKS Test Results: Test results from this visit will be discussed in further detail at your follow-up appointment, if applicable. Discharge Plan Admission Admit Date/Time: 11/18/22 19:44 Primary Reason for Your Visit: Decompensated alcoholic cirrhosis with hepatic encephalopathy Attending Provider: Placido Aponte Primary Care Provider: Luz Dhaliwal NP Consulting Providers: Sherri Dave Instructions Patient Instructions: DESI RN Paracentesis Dc Additional Instructions / Restrictions: Hold quetiapine, fluoxetine and citalopram while patient is confused on lethargy. Dosages of buspirone, hydroxyzine is decreased. Patient advised to follow-up primary care/psychiatrist to reconcile antipsychotic medications. Discharge Orders/Prescriptions Prescriptions: New spironolactone 25 mg Tablet 50 mg PO DAILY 30 Days Qty: 60 2RF Rx Instructions: Hold if serum potassium more than 5.0. cefdinir 300 mg capsule 300 mg PO BID 5 Days Qty: 10 0RF Continued furosemide 20 mg tablet 20 mg PO BID propranolol 10 mg tablet 10 mg PO TID Xifaxan 550 mg tablet 550 mg PO BID Label Comments: TAKE 1 TABLET BY MOUTH TWICE DAILY citalopram 40 mg tablet 40 mg PO DAILY clonidine HCl 0.1 mg tablet 0.1 mg PO TID PRN PRN (Reason: Anxiety) prazosin 2 mg capsule 2 mg PO QHS Label Comments: take 1 capsule by mouth at bedtime; 1 hour before bedtime quetiapine 50 mg tablet 100 mg PO QHS fluoxetine 20 mg capsule 20 mg PO DAILY Label Comments: TAKE 1 CAPSULE BY MOUTH ONCE DAILY bupropion HCl 300 mg tablet extended release 24 hr 300 mg PO DAILY Label Comments: take 1 tablet by mouth once daily Changed hydroxyzine pamoate 50 mg capsule 25 mg PO TID PRN PRN (Reason: Anxiety) Qty: 10 0RF Label Comments: TAKE 1 CAPSULE BY MOUTH THREE TIMES DAILY NEEDED FOR ANXIETY OR SLEEP ferrous sulfate 325 mg (65 mg iron) tablet 325 mg PO QODAY Qty: 30 0RF buspirone 10 mg tablet 10 mg PO TID PRN PRN (Reason: Anxiety) Qty: 30 0RF Label Comments: take 2 tablets by mouth three times a day if needed lactulose 10 gram/15 mL solution 30 ml PO TID Qty: 473 2RF Rx Instructions: Titrate the dose of lactulose to have a goal of 2-3 soft bowel movements per day Referrals / Follow Up: Samir Ramos DO [Med Staff - Active Staff] - Within 1 Week (Patient has appointment with Dr. Ramos in the next 1 week.) Luz Dhaliwal SOLAR CONSULTANT, SOLAR CONSULTANT-C [Primary Care Provider] - 11/24/22 2:00 pm Disposition Disposition (needs filled in before D/C Order can be placed): Home, Self Care
[2022-11-20] MEDS: Spironolactone 25 MG Tablet PO (10:21)
[2022-11-20] MEDS: buPROPion (XL) 300 MG TABLET.XL PO (10:21)
[2022-11-20] MEDS: Furosemide 20 MG Tablet PO (10:21)
[2022-11-20] MEDS: rifAXIMin 550 MG Tablet PO (10:21)
--- NOTE | 2022-11-20 10:35 | CASEMGMT ---
RN CM in to pt room, pt nurse at bedside. Pt is agreeable to having [facility] come out for medication teaching. Pt would like [facility] as that is the agency previously set up. Pt denies need for a list of other possible providers within her insurance. Reminded pt of appt with Luz Dhaliwal that is written on her board so that she can set up her transportation. Pt aware. Pt denies having transportation home today. TC to [facility], they are able to take pt home at 2pm. Updated pt nurse and pt. TC to Estrella at [facility], left for her of appointment with Luz Dhaliwal and that pt is agreeable to services. Uploaded info into careport and referral sent.
--- NOTE | 2022-11-20 10:39 | DS.PCM_ITS ---
Providers Date of Admission: 11/18/22 Date of Discharge: 11/20/22 Primary Care Physician: Luz Dhaliwal, [employer] SUPERVISOR-C Reason For Visit: HEPATIC ENCEPHALOPATHY Diagnosis Discharge Diagnosis (1) Hepatic encephalopathy: Status: Acute Code(s): K76.82 - Hepatic encephalopathy Plan The patient is a 52 y/o F with history of alcoholic cirrhosis was admitted for confusion, altered mental status consistent with hepatic encephalopathy. 1. Acute hepatic encephalopathy due to decompensated alcoholic cirrhosis with p ortal hypertension, thrombocytopenia and ascites: Patient was discharged from [place] on the day of admission and was not taking lactulose. Patient is still confused in the morning. Ask repetitive questions and not able to retain answers. Continue lactulose, rifaximin, Lasix and add spironolactone. Strict intake and output, fluid restriction less than 1500 mL, daily weight monitoring, kidney and electrolytes monitoring. Patient has not seen realty specialist in a long time. She has appointment with Dr. Ramos. Did not had EGD. Denies recent history of hematemesis or melena. Ultrasound-guided paracentesis with lab analysis ordered. Patient is states he is sober for about 1 year. She needs to be further follow- up with tertiary care for liver transplant evaluation and listing 11/20: Patient is sitting up in the bed. She is alert awake and oriented x3. She states her brother is caregiver but he works 15-16 hrs. and sometimes she forgets lactulose and cannot take very often. Discussed with social contact worker. Abdominal ultrasound was done but there was not enough fluid for tap. She has appointment with Dr. Ramos in 1 week encouraged to keep up the appointment. MELD Na score is low 8 therefore not candidate for transplant evaluation. CPT 8, class B. #2. Anxiety and depression: Discontinue citalopram and BuSpar as well as Seroquel as needed regimen as patient is confused and resume once she is more alert. 11/20: Yesterday, I tried to discontinue BuSpar, citalopram and Seroquel but patient gets very anxious. Therefore dose of hydroxyzine and BuSpar decreased. Advised to follow with PCP/psychiatrist. #3. Chronic anemia, iron deficiency anemia: Admission hemoglobin 13, and mild ascites hemoglobin is on baseline. 11/20: Hemoglobin on baseline. #4. Hypertension: Continue home regimen including Lasix, prazosin, propranolol with hold parameters as needed, PRN hydralazine. #5. Hyperlipidemia: Not on statin therapy, defer given underlying history. #6. Tobacco Abuse: Prior cigarette tobacco use with transition to vaping encouraged vaping tobacco cessation, inpatient consultation per RT, NR if desired. #7. Former alcohol abuse with associated chronic alcoholic liver cirrhosis as noted #1: Encourage continued sobriety, case management consulted. #8. Former polysubstance abuse: Notes history of previous amphetamine/methamphetamine, encourage continued clean status, reports clean since 11/26/2021. #9. Obesity: Weight loss and lifestyle changes encouraged. #10. DVT prophylaxis: SCDs, given liver disease will hold on chemoprophylaxis, encourage ambulation is improving. Discharge medication reconciliation done. Discharge follow-up instructions completed. Discharge process discussed with the patient and all questions were answered to patient's satisfaction. Total time spent, exact 35 minutes on discharge meds reconciliation, examination, coordination of care with nurses and ancillary staff, review of imaging and blood test and discussion with the patient on follow-up instructions. Medications at Discharge Home Medications citalopram 40 mg tablet 40 mg PO DAILY depression 10/28/22 clonidine HCl 0.1 mg tablet 0.1 mg PO TID PRN PRN Anxiety 10/28/22 furosemide 20 mg tablet 20 mg PO BID diuretic 10/28/22 prazosin 2 mg capsule 2 mg PO QHS sleep 10/28/22 propranolol 10 mg tablet 10 mg PO TID tremors 10/28/22 quetiapine 50 mg tablet 100 mg PO QHS sleep 10/28/22 rifaximin 550 mg tablet (Xifaxan) 550 mg PO BID cirrhosis 10/28/22 bupropion HCl 300 mg 24 hr tablet, extended release 300 mg PO DAILY depression 11/18/22 fluoxetine 20 mg capsule 20 mg PO DAILY depression 11/18/22 buspirone 10 mg tablet 10 mg PO TID PRN PRN Anxiety #30 tabs 11/20/22 cefdinir 300 mg capsule 300 mg PO BID 5 days #10 caps 11/20/22 ferrous sulfate 325 mg (65 mg iron) tablet 325 mg PO QODAY supplement #30 tabs 11/20/22 hydroxyzine pamoate 50 mg capsule 25 mg PO TID PRN PRN Anxiety #10 caps 01/27/23 lactulose 10 gram/15 mL oral solution 30 ml PO TID cirrhosis #473 mL 11/20/22 spironolactone 25 mg tablet 50 mg PO DAILY 30 days #60 tabs 11/20/22 Physical Exam Narrative Seen and examined on the day of discharge Physical exam General: Alert awake oriented x3. Patient sitting on the bed. HEENT: Atraumatic, PERRLA, EOMI, Normocephalic Oral: Oral mucosa moist. No Gingival or Mucosal Lesions/ Ulcerations Neck: Supple, No JVD, Negative Carotid Bruits Lungs: Air entry diminished in bilateral lung bases. No crepitation/rhonchi Cardiovascular: Regular rate, Regular Rhythm, Normal S1, Normal S2, No murmurs Abdomen: Soft, distended abdomen, shifting dullness present. Mild ascites. Bowel Sounds Present : No renal angle tenderness. No suprapubic tenderness. Extremities: Bilateral 1+ below-knee pitting edema, Capillary Refill Less than 3 Seconds Skin: No rashes, No breakdown Musculoskeletal: No Tenderness to Palpation of Joints or Extremities Neurological: Cranial nerves II-XII grossly intact, DTR 2+/4 and Symmetrical, Neuro grossly intact Psych/Mental Status: Flat affect, mild amnesia. Weight / BMI Weight Weight: 272 lb 4.334 oz Body Mass Index (BMI) 42.9 ABG / Lab / Microbiology Data Result Diagrams: 11/19/22 05:55 11/19/22 05:55 Laboratory: Laboratory Results - last 24 hr 11/20/22 07:06: Total Bilirubin 1.00, Direct Bilirubin 0.34 H, AST 45 H, ALT 34, Alkaline Phosphatase 148 H, Total Protein 6.5, Albumin 3.1 L, Globulin 3.4 D/C Instructions Discharge Diet: 8 Cup Fluid Restriction and 2000 mg Sodium Diet Weight Bearing Status: Weight bearing as tolerated Call your doctor if you observe: Fever of 101 or Higher, Coldness, Increased Pain, Numbness or Tingling, Change in Color, Inability to urinate, Inability to have a bowel movement, Using more than 1 pad per hour, Shortness of breath, Di zziness, Fainting spells, Swelling in the ankles, Chest pain, Prolonged hiccupping, Increased palpitations (irregular heartbeat) and Calf discomfort When: IN 2 WEEKS Meaningful Use Info Meaningful Use Diagnoses (Choose all that apply): None applicable Discharge Plan Admission Admit Date/Time: 11/18/22 19:44 Primary Reason for Your Visit: Decompensated alcoholic cirrhosis with hepatic encephalopathy Attending Provider: Placido Aponte Primary Care Provider: Luz Dhaliwal NP Consulting Providers: Sherri Dave Instructions Patient Instructions: DESI RN Paracentesis Dc Additional Instructions / Restrictions: Hold quetiapine, fluoxetine and citalopram while patient is confused on lethargy. Dosages of buspirone, hydroxyzine is decreased. Patient advised to follow-up primary care/psychiatrist to reconcile antipsychotic medications. Discharge Orders/Prescriptions Prescriptions: New spironolactone 25 mg Tablet 50 mg PO DAILY 30 Days Qty: 60 2RF Rx Instructions: Hold if serum potassium more than 5.0. cefdinir 300 mg capsule 300 mg PO BID 5 Days Qty: 10 0RF Continued furosemide 20 mg tablet 20 mg PO BID propranolol 10 mg tablet 10 mg PO TID Xifaxan 550 mg tablet 550 mg PO BID Label Comments: TAKE 1 TABLET BY MOUTH TWICE DAILY citalopram 40 mg tablet 40 mg PO DAILY clonidine HCl 0.1 mg tablet 0.1 mg PO TID PRN PRN (Reason: Anxiety) prazosin 2 mg capsule 2 mg PO QHS Label Comments: take 1 capsule by mouth at bedtime; 1 hour before bedtime quetiapine 50 mg tablet 100 mg PO QHS fluoxetine 20 mg capsule 20 mg PO DAILY Label Comments: TAKE 1 CAPSULE BY MOUTH ONCE DAILY bupropion HCl 300 mg tablet extended release 24 hr 300 mg PO DAILY Label Comments: take 1 tablet by mouth once daily Changed hydroxyzine pamoate 50 mg capsule 25 mg PO TID PRN PRN (Reason: Anxiety) Qty: 10 0RF Label Comments: TAKE 1 CAPSULE BY MOUTH THREE TIMES DAILY NEEDED FOR ANXIETY OR SLEEP ferrous sulfate 325 mg (65 mg iron) tablet 325 mg PO QODAY Qty: 30 0RF buspirone 10 mg tablet 10 mg PO TID PRN PRN (Reason: Anxiety) Qty: 30 0RF Label Comments: take 2 tablets by mouth three times a day if needed lactulose 10 gram/15 mL solution 30 ml PO TID Qty: 473 2RF Rx Instructions: Titrate the dose of lactulose to have a goal of 2-3 soft bowel movements per day Referrals / Follow Up: Samir Ramos, [Med Staff - Active Staff] - Within 1 Week (Patient has appointment with Dr. Ramos in the next 1 week.) Luz Dhaliwal NP, [employer] SUPERVISOR-C [Primary Care Provider] - 11/24/22 2:00 pm Disposition Disposition (needs filled in before D/C Order can be placed): Home Health Service Charges/Coding Visit Charges Inpatient E&M: 90264 Disch Hosp >30min
--- NOTE | 2022-11-20 12:00 | US_ITS ---
STUDY: ABDOMINAL ULTRASOUND - 4 quadrants for ascites. REASON FOR VISIT: Female, 52 years old suspected SBP -- 11/20/22 12noon TECHNIQUE: Ultrasound evaluation of the 4 quadrants was performed with real-time and static gage-scale imaging. TECHNICAL QUALITY: Adequate. COMPARISON: None. FINDINGS: The 4 quadrants of the abdomen was examined with ultrasound. No ascites is present. US/Abdomen Limited IMPRESSION: No evidence of ascites. Electronically Signed: Ronaldo Edwards MD at 15:31 EST ,
--- NOTE | 2022-11-20 12:35 | NURSING ---
Per Lonnie Rn in radiology for report: no paracentesis done as not enough fluid.
[2022-11-20 13:10] VITALS: BP 109/63; PULSE 62; RESP 16; TEMP 36.9; O2SAT 98
== END 2022-11-20 13:55 | disposition home health service (06) | DRG 280 ==
LOC: ED 19:35 → MS3 19:59
PROVIDERS: Admitting Provider Family Medicine; Emergency Provider Emergency Medicine; PCP Nurse Practitioner Family; Visit Provider Internal Medicine
DX: K70.31 Alcoholic cirrhosis of liver with ascites (principal); K76.6 Portal hypertension; D69.6 Thrombocytopenia, unspecified; F10.20 Alcohol dependence, uncomplicated; D50.9 Iron deficiency anemia, unspecified; E78.5 Hyperlipidemia, unspecified; F31.9 Bipolar disorder, unspecified; K76.82 Hepatic encephalopathy; I10 Essential (primary) hypertension; F15.90 Other stimulant use, unspecified, uncomplicated; F17.210 Nicotine dependence, cigarettes, uncomplicated; F41.9 Anxiety disorder, unspecified; Y90.9 Presence of alcohol in blood, level not specified
CPT/HCPCS: 36415; 76705; 80053; 80076; 81001; 82140; 83605; 83690; 83735; 84100; 85025; 85610; 85730; 94668; 97802; 99284; A4216; J0696; J2405

== ENCOUNTER 2022-12-01 21:43 | Emergency (ER) | payer MEDICAID, SELFPAY ==
[2022-12-01 21:43] VITALS: BP 135/90; PULSE 61; RESP 16; TEMP 36.3; O2SAT 97; BMI 42.3
--- NOTE | 2022-12-01 22:20 | EX.ED.DYSGE1 ---
HPI History of Present Illness Chief Complaint: General Illness Informant: patient and family (brother) Onset/Context/Timing Onset: Today Context: Gradual Onset Timing: Intermittent Current Severity: Mild Maximum Severity: Moderate Narrative Narrative: Patient states today she has felt like her body is warm without any subjective fevers or chills, she has had some tunnel vision, some disequilibrium, frontal headache bifrontal, some nausea. No nicole vertigo,, no recent illness, no injury. She has a history of hepatic cirrhosis, she has been compliant with her lactulose, she usually takes it 3 times a day symptoms for if she has not had a bowel movement yet, she is taking it 3 times a day and she has not had a bowel movement today. She states that this sort of feels like her hepatic encephalopathy coming on. She states that it does not usually occur this way. Brother states she usually suddenly is disoriented like you through a switch and he comes in with her tonight out of concern for safety if he puts her to sleep and she gets worse in the middle of the night. They both agree that she is not confused right now but the brother states that on occasion her speech has been abnormal today. She states at times she has been having flapping of her hands, describing asterixis that she agrees is not there right now. She has drank no alcohol. [facility] Medical History Acidosis Alcohol abuse Alcoholic cirrhosis of liver without ascites Anxiety and depression Bipolar disorder Cirrhosis Cirrhosis of liver Edema Essential (primary) hypertension Hepatic encephalopathy Iron deficiency anemia Lactic acidosis Low urine output Pancytopenia Portal hypertension Splenomegaly Thrombocytopenia Thrombocytopenia Urea cycle metabolism disorder UTI (urinary tract infection) Home Medications citalopram 40 mg tablet 40 mg PO DAILY depression 10/28/22 [History Last Taken Unknown] clonidine HCl 0.1 mg tablet 0.1 mg PO TID PRN PRN Anxiety 10/28/22 [History Last Taken Unknown] furosemide 20 mg tablet 20 mg PO BID diuretic 10/28/22 [History Last Taken Unknown] prazosin 2 mg capsule 2 mg PO QHS sleep 10/28/22 [History Last Taken Unknown] propranolol 10 mg tablet 10 mg PO TID tremors 10/28/22 [History Last Taken Unknown] quetiapine 50 mg tablet 100 mg PO QHS sleep 10/28/22 [History Last Taken Unknown] rifaximin 550 mg tablet (Xifaxan) 550 mg PO BID cirrhosis 10/28/22 [History Last Taken Unknown] bupropion HCl 300 mg 24 hr tablet, extended release 300 mg PO DAILY depression 11/18/22 [History Last Taken Unknown] fluoxetine 20 mg capsule 20 mg PO DAILY depression 11/18/22 [History Last Taken Unknown] buspirone 10 mg tablet 10 mg PO TID PRN PRN Anxiety #30 tabs 11/20/22 [Rx Last Taken Unknown] cefdinir 300 mg capsule 300 mg PO BID 5 days #10 caps 11/20/22 [Rx Last Taken Unknown] ferrous sulfate 325 mg (65 mg iron) tablet 325 mg PO QODAY supplement #30 tabs 11/20/22 [Rx Last Taken Unknown] hydroxyzine pamoate 50 mg capsule 25 mg PO TID PRN PRN Anxiety #10 caps 11/20/22 [Rx Last Taken Unknown] lactulose 10 gram/15 mL oral solution 30 ml PO TID cirrhosis #473 mL 11/20/22 [Rx Last Taken Unknown] spironolactone 25 mg tablet 50 mg PO DAILY 30 days #60 tabs 11/20/22 [Rx Last Taken Unknown] Allergy/AdvReac Type Severity Reaction Status Date / Time No Known Allergies Allergy Verified 12/01/22 21:45 Family History Grandmother Breast cancer Surgical History History of ankle surgery Hx of section Hx of cholecystectomy Hx of hand surgery Hx of shoulder surgery Hx of total knee replacement Social History Smoking Status: Current every day smoker tobacco type: e-cigarettes Electronic Cigarette Use: with nicotine how long ago did patient quit smoking: Transitioned from cig tob to vaping, heavy currently. alcohol intake: former year quit: 2021 details: 11/26/21 substance use type: other details: Former amphetamine/meth use, clean since 11/26/21. ROS ROS ED Constitutional Constitutional ED: Reports malaise; Denies chills or fever(s) Eyes Eyes: Reports change in vision bilateral (tunnel vision); Denies diplopia ENT ENT ED: Denies rhinorrhea or sore throat Cardiovascular Cardiovascular: Denies chest pain or palpitations Respiratory/Chest Respiratory/Chest: Denies cough or dyspnea Gastrointestinal Gastrointestinal: Reports nausea; Denies abdominal pain, diarrhea or vomiting Genitourinary Genitourinary ED: Denies dysuria or hematuria Musculoskeletal Musculoskeletal: Denies back pain or neck pain Integumentary Denies abscess or rash Neurologic Neurologic: Reports as per HPI, abnormal speech, disequilibrium and tremor(s); Denies confusion, headache(s), paresthesias or weakness Psychiatric Psychiatric: Reports anxiety; Denies suicidal thoughts EXAM Physical Exam Const Vital Signs: 12/01/22 21:43 12/01/22 22:34 12/01/22 23:43 Temperature 97.4 F L Temperature Source Temporal Pulse Rate 61 78 Respiratory Rate 16 16 Respiratory Pattern Normal Blood Pressure 135/90 H 132/78 H Blood Pressure Mean 105 96 Pulse Ox 97 99 Oxygen Delivery Method Room Air Room Air Positive well nourished, well developed and obese General Appearance ED: well developed and NAD Nutritional Appearance: obese HEENT Reports moist mucous membranes normocephalic and atraumatic Eyes PERRL and EOMs intact bilaterally Neck full ROM and supple Resp normal respiratory effort and clear to auscultation bilaterally Cardio regular rate, regular rhythm and no murmurs GI non-tender and non-distended GI Narrative: Probable ascites. Not tense. Auscultation: normoactive bowel sounds Palpation: soft Back/Spine no CVA tenderness General Back: other FROM Extremity normal to inspection General Extremety ED: Yes edema; Negative for pulses abnormal or tenderness General Extremity: edema bilateral lower extremity Details: mild; Negative for pulses abnormal Neuro oriented x3, CN's II-XII intact bilaterally and no sensory deficits noted Neuro Narrative: Normal speech. Conversive appropriately. Appropriate answers. No asterixis. Sensorium / Orientation: awake and alert Motor Exam: strength 5/5 throughout Psych Psych Narrative: A little anxious. Skin no rashes or lesions noted and no wounds MDM MDM MDM Narrative Medical decision making narrative: I did check labs on this patient including an ammonia. It is 136, the highest it has ever been for her, and the rest of the testing is unremarkable, so she probably is symptomatic from the elevated pneumonia, I suspect. However she is not encephalopathic. While waiting for the labs to return she was given 20 g of lactulose, she tolerated it well, and she has not yet had a bowel movement. She states she had liquid bowel movements today but no stool. I offered extended observation here in emergency department, and more lactulose until she has a bowel movement and to see if she feels better. I do not necessarily think she needs to be admitted since she is not encephalopathic, she does need to increase her lactulose intake in my judgment. She is in agreement with this and does not want to be admitted or stay here any longer she wants to go home and will take another dose of it when she gets home and follow-up with her doctor, she has an appointment with GI coming up in about 10 days, and I advise increasing her lactulose of the next couple days to take her ammonia level down. Lab Data Attestation: I reviewed the patient's lab results. Labs: Laboratory Results - last 24 hr 12/01/22 12/01/22 12/01/22 22:46 22:46 22:46 WBC 6.0 RBC 4.81 Hgb 14.0 Hct 42.6 MCV 88.6 MCH 29.1 MCHC 32.9 RDW Std Deviation 62.7 H RDW Coeff of Stephon 19.3 H Plt Count 92 L MPV 10.2 Immature Gran % (Auto) 0.300 Neut % (Auto) 46.9 L Lymph % (Auto) 29.0 [place] % (Auto) 12.6 H Eos % (Auto) 10.2 H Baso % (Auto) 1.0 Absolute Neuts (auto) 2.8 Absolute Lymphs (auto) 1.73 Nucleated RBC % 0 Sodium 141 Potassium 4.3 Chloride 108 H Carbon Dioxide 28.0 Anion Gap 5 BUN 12 Creatinine 0.90 Estim Creat Clear Calc 69.49 Est GFR (MDRD) Af Amer 84 Est GFR (MDRD) Non-Af 69 BUN/Creatinine Ratio 13.3 Glucose 112 H Calcium 9.4 Ammonia 136.0 H Urine Color Urine Clarity Urine pH Ur Specific [place] Urine Protein Urine Glucose (UA) Urine Ketones Urine Occult Blood Urine Nitrite Urine Bilirubin Urine Urobilinogen Ur Leukocyte Esterase Urine RBC Urine WBC Ur Squamous Epith Cells Urine Bacteria Urine Mucus 12/01/22 22:51 WBC RBC Hgb Hct MCV MCH MCHC RDW Std Deviation RDW Coeff of [place] Plt Count MPV Immature Gran % (Auto) Neut % (Auto) Lymph % (Auto) [place] % (Auto) Eos % (Auto) Baso % (Auto) Absolute Neuts (auto) Absolute Lymphs (auto) Nucleated RBC % Sodium Potassium Chloride Carbon Dioxide Anion Gap BUN Creatinine Estim Creat Clear Calc Est GFR (MDRD) Af Amer Est GFR (MDRD) Non-Af BUN/Creatinine Ratio Glucose Calcium Ammonia Urine Color Yellow Urine Clarity Clear Urine pH 6.0 Ur Specific [place] 1.020 Urine Protein 15 H Urine Glucose (UA) Normal Urine Ketones 5 H Urine Occult Blood 10 H Urine Nitrite Negative Urine Bilirubin Negative Urine Urobilinogen 8 H Ur Leukocyte Esterase 25 H Urine RBC 0 SEEN Urine WBC 0-5 SEEN Ur Squamous Epith Cells 0-5 SEEN Urine Bacteria RARE Urine Mucus 0 SEEN Radiography Diagnostic Testing: Clinical Impression(s) from Imaging Studies Brain CT 12/01/22 22:23 IMPRESSION: Negative head/brain CT without intravenous contrast. Electronically Signed: Kendell Zamorano MD at 23:27 EST , Discharge Plan Triage Chief Complaint: General Illness ED Provider: Shaun dOom Dx/Rx/DC Orders Clinical Impression: Hyperammonemia, Hepatic cirrhosis Instructions: Ammonia Prescriptions: No Action furosemide 20 mg tablet 20 mg PO BID propranolol 10 mg tablet 10 mg PO TID Xifaxan 550 mg tablet 550 mg PO BID Label Comments: TAKE 1 TABLET BY MOUTH TWICE DAILY citalopram 40 mg tablet 40 mg PO DAILY clonidine HCl 0.1 mg tablet 0.1 mg PO TID PRN PRN (Reason: Anxiety) prazosin 2 mg capsule 2 mg PO QHS Label Comments: take 1 capsule by mouth at bedtime; 1 hour before bedtime quetiapine 50 mg tablet 100 mg PO QHS fluoxetine 20 mg capsule 20 mg PO DAILY Label Comments: TAKE 1 CAPSULE BY MOUTH ONCE DAILY bupropion HCl 300 mg tablet extended release 24 hr 300 mg PO DAILY Label Comments: take 1 tablet by mouth once daily spironolactone 25 mg Tablet 50 mg PO DAILY 30 Days Qty: 60 2RF Rx Instructions: Hold if serum potassium more than 5.0. cefdinir 300 mg capsule 300 mg PO BID 5 Days Qty: 10 0RF hydroxyzine pamoate 50 mg capsule 25 mg PO TID PRN PRN (Reason: Anxiety) Qty: 10 0RF Label Comments: TAKE 1 CAPSULE BY MOUTH THREE TIMES DAILY NEEDED FOR ANXIETY OR SLEEP ferrous sulfate 325 mg (65 mg iron) tablet 325 mg PO QODAY Qty: 30 0RF buspirone 10 mg tablet 10 mg PO TID PRN PRN (Reason: Anxiety) Qty: 30 0RF Label Comments: take 2 tablets by mouth three times a day if needed lactulose 10 gram/15 mL solution 30 ml PO TID Qty: 473 2RF Rx Instructions: Titrate the dose of lactulose to have a goal of 2-3 soft bowel movements per day Primary Care Provider: Luz Dhaliwal NP Referrals: Luz Dhaliwal NP, ACADEMIC INTERN-C [Primary Care Provider] - As soon as possible (and/or GI as scheduled) Activity Restrictions/Additional Instructions: take extra doses of lactulose; one when you get home tonight, and 4-5 doses each day over next several days or until feeling better Disposition Disposition: Home, Self Care
--- NOTE | 2022-12-01 22:23 | CT_ITS ---
EXAM: CT HEAD WITHOUT INTRAVENOUS CONTRAST CLINICAL INDICATION: headache, dysequilibrium, hepatic cirrhosis TECHNIQUE: Multiple axial images were obtained of the head without intravenous contrast. This CT exam was performed using one or more of the following dose reduction techniques: automated exposure control, adjustment of the mA and/or kV according to patient size, and/or use of iterative reconstruction technique. This report was created using [employer] report generation technology. RADIATION DOSE: CTDIvol = 44.99 mGy, DLP = 796.11 mGy-cm. COMPARISON: None. FINDINGS: BRAIN AND EXTRA-AXIAL SPACES: Unremarkable. No intra- or extra-axial hemorrhage. No evidence of acute infarct. No intracranial mass or mass effect. There is preservation of the gage/white matter interface. Posterior fossa structures are unremarkable. Ventricles are appropriate for age. No hydrocephalus. Basal cisterns are patent. BONES/JOINTS: Unremarkable. No discrete lytic or blastic abnormalities. SINUSES: Unremarkable as visualized. Clear. MASTOID AIR CELLS: Unremarkable. Clear. ORBITS: Visualized globes, extraocular muscles, optic nerves and retrobulbar fat appear unremarkable. CT/Brain/Head without Contrast IMPRESSION: Negative head/brain CT without intravenous contrast. Electronically Signed: Kendell Zamorano MD at 23:27 EST ,
[2022-12-01] MEDS: Meclizine HCl 25 MG Tablet PO (22:43)
[2022-12-01] MEDS: Acetaminophen 500 MG Tablet 1000 MG PO (22:44)
[2022-12-01] MEDS: Lactulose 20 GM/30 ML UDC PO (22:44)
[2022-12-01] MEDS: Ondansetron ODT 4 MG Tablet 8 MG PO (22:44)
[2022-12-01 22:57] LABS: Absolute Lymphocyte Count 1.73 X10^3/uL (0.83-4.51); Absolute Neutrophil Count 2.8 X10^3/uL (2.0-7.7); Basophil# 0.06 X10^3/uL; Eosinophil# 0.61 X10^3/uL; Eosinophils% 10.2 % (0-5); Hematocrit 42.6 % (37-47); Lymphocyte # 1.73 X10^3/ul (0.83-4.51); Mean Corp Hgb Conc 32.9 g/dL (32-36); Mean Corpuscular Hgb 29.1 pg (27.0-32.0); Mean Corpuscular Volume 88.6 fL (81-99); Mean Platelet Vol. 10.2 fl (6.2-12.0); Monocyte# 0.75 X10^3/uL; Monocyte% 12.6 % (0-10); NRBC Flagged by Analyzer 0 % (0-5); Neutrophil % 46.9 % (47-70); POSITIVE COUNT YES; Platelet Count 92 K/mm3 (150-450); RBC Distribution Width CV 19.3 % (11.6-14.6); RBC Distribution Width SD 62.7 fl (35.1-43.9); Red Blood Count 4.81 M/mm3 (4.2-5.4)
[2022-12-01 23:02] LABS: Mucous, Urine 0 SEEN /hpf (<or=2+); Red Blood Cells-Urine 0 SEEN /hpf (0-5)
[2022-12-01 23:06] LABS: Color, Urine Yellow (Yellow); Glucose, Dipstick Normal (Normal); Ketone-Dipstick 5 mg/dl (Negative); Leukocyte Esterase-Dipstick 25 /ul (Negative); Nitrite-Dipstick Negative (Negative); Occult Blood-Urine 10 /ul (Negative); Protein-Dipstick 15 mg/dl (Negative); Urine Bilirubin Dipstick Negative (Negative); Urine Clarity Clear (Clear); Urine Urobilinogen 8 mg/dl (Normal)
[2022-12-01 23:10] LABS: Anion Gap 5 (5-15); BUN 12 mg/dL (7-18); BUN/Creat Ratio 13.3 RATIO (10-20); Calcium,Total 9.4 mg/dL (8.5-10.1); Chloride 108 mmol/L (98-107); EST Glomerular Filtration Rate 69 mL/min (>60); Est Glom Filt Rate - Afr Amer 84 mL/min (>60); Estimated Creatinine Clearance 69.49 ml/min; Glucose 112 mg/dL (74-106); Potassium 4.3 mmol/L (3.5-5.1); Sodium Level 141 mmol/L (136-145)
[2022-12-01 23:27] LABS: Differential Indicated SCAN CRITERIA MET
[2022-12-01 23:27] LABS: Bacteria RARE /hpf (None Seen); Squamous Epithelial Cells - UA 0-5 SEEN /hpf (5-10); White Blood Cells 0-5 SEEN /hpf (0-5)
[2022-12-01 23:43] VITALS: BP 132/78; PULSE 78; RESP 16; O2SAT 99
[2022-12-02 00:21] VITALS: BP 128/78; PULSE 78; RESP 16; O2SAT 100
== END 2022-12-02 00:31 | disposition home or self-care (01) ==
PROVIDERS: Emergency Provider Emergency Medicine; PCP Nurse Practitioner Family; Visit Provider Emergency Medicine
DX: K74.60 Unspecified cirrhosis of liver (principal); E72.4 Disorders of ornithine metabolism; F15.90 Other stimulant use, unspecified, uncomplicated; F17.210 Nicotine dependence, cigarettes, uncomplicated; I10 Essential (primary) hypertension
CPT/HCPCS: 70450; 80048; 81001; 82140; 85025; 99283

== ENCOUNTER → 2022-12-10 | Outpatient (CLI) | payer MEDICAID, SELFPAY ==
[2022-12-10 15:41] LABS: Absolute Lymphocyte Count 1.68 X10^3/uL (0.83-4.51); Absolute Neutrophil Count 3.5 X10^3/uL (2.0-7.7); Basophil# 0.05 X10^3/uL; Basophil% 0.7 % (0-1); Eosinophil# 0.49 X10^3/uL; Eosinophils% 7.3 % (0-5); Hematocrit 45.8 % (37-47); Hemoglobin 14.9 g/dL (12.0-15.0); Lymphocyte # 1.68 X10^3/ul (0.83-4.51); Mean Corp Hgb Conc 32.5 g/dL (32-36); Mean Corpuscular Hgb 29.4 pg (27.0-32.0); Mean Corpuscular Volume 90.5 fL (81-99); Mean Platelet Vol. 10.1 fl (6.2-12.0); Monocyte# 0.96 X10^3/uL; Monocyte% 14.3 % (0-10); NRBC Flagged by Analyzer 0 % (0-5); Neutrophil # 3.52 X10^3/uL (2.7-7.7); Neutrophil % 52.6 % (47-70); Platelet Count 116 K/mm3 (150-450); RBC Distribution Width CV 17.7 % (11.6-14.6); RBC Distribution Width SD 59.7 fl (35.1-43.9); Red Blood Count 5.06 M/mm3 (4.2-5.4); White Blood Count 6.7 K/mm3 (4.4-11.0)
[2022-12-10 15:54] LABS: Hemoglobin A1c 5.5 % (3.8-5.6)
[2022-12-10 15:55] LABS: Erythrocyte Sedimentation Rate 8 mm/hr (0-30)
[2022-12-10 15:58] LABS: International Normalized Ratio 1.3; Prothrombin Time (Protime)PT. 15.4 SECONDS (11.7-14.9)
[2022-12-10 16:24] LABS: ALB/GLOB Ratio 0.8 RATIO (0.9-2.4); AST(SGOT) 43 U/L (15-37); Alanine Aminotransfer ALT/SGPT 35 U/L (13-56); Albumin, Serum 3.3 g/dL (3.2-5.0); Alkaline Phosphatase 160 U/L (45-117); Anion Gap 3 (5-15); BUN 14 mg/dL (7-18); BUN/Creat Ratio 19.1 RATIO (10-20); CRP < 2.90 mg/L (0.0-3.0); Calcium,Total 9.6 mg/dL (8.5-10.1); Chloride 109 mmol/L (98-107); Creatinine, Serum 0.73 mg/dL (0.55-1.02); EST Glomerular Filtration Rate 88 mL/min (>60); Est Glom Filt Rate - Afr Amer 106 mL/min (>60); Ferritin 33 ng/mL (8-252); Glucose 73 mg/dL (74-106); Iron 69 ug/dL (50-170); Iron Binding Capacity,Total 350 ug/dL (250-450); LDH 223 U/L (84-246); PERCENT IRON SATURATION 19.7 % (15.0-55.0); Potassium 4.9 mmol/L (3.5-5.1); Protein, Total 7.3 g/dL (6.4-8.2); Sodium Level 141 mmol/L (136-145)
[2022-12-10 16:36] LABS: HIV - WCH Non-Reactive (Nonreactive); Hepatitis B Surface Antibody Non-Reactive; Vitamin B12 578 pg/mL (211-911)
[2022-12-14 14:08] LABS: Angiotensin Convert Enzyme 232 U/L (14-82); Ceruloplasmin 20.6 mg/dL (19.0-39.0); Cytoplasmic Ab (C-ANCA) <1:20 titer (Neg:<1:20); HEPATITIS B SURFACE AG Negative (Negative); Hep C Antibodies Non Reactive (Non Reactive); Hepatitis A IgM Antibody Negative (Negative); Hepatitis B Core AB IgM Negative (Negative)
[2022-12-14 15:07] LABS: Anti-Centromere B Ab <0.2 AI (0.0-0.9); Anti-Chromatin 0.3 AI (0.0-0.9); Anti-Jo <0.2 AI (0.0-0.9); Anti-Scleroderma-70 AB <0.2 AI (0.0-0.9); RNP Ab 1.3 AI (0.0-0.9); SJOGREN'S Anti-SS-A test 0.2 AI (0.0-0.9); SJOGREN'S Anti-SS-B test < 0.2 AI (0.0-0.9); Smith Ab <0.2 AI (0.0-0.9)
[2022-12-14 16:32] LABS: AFP, Tumor Marker 4.9 ng/mL (0.0-9.2); Anti-Smooth Muscle ABS 18 Units (0-19); Copper, Serum or Plasma 86 ug/dL (80-158); Haptoglobin 54 mg/dL (33-346); Perinuclear Ab (P-ANCA) <1:20 titer (Neg:<1:20)
[2022-12-14 19:19] LABS: Anti-dsDNA Ab 3 IU/mL (0-9); Vitamin D 1,25-Dihydroxy 30.6 pg/mL (24.8-81.5)
== END | disposition home or self-care (01) ==
LOC: LAB 15:03
PROVIDERS: PCP Nurse Practitioner Family; Visit Provider Nurse Practitioner Adult Health
DX: Z01.84 Encounter for antibody response examination (principal); K74.60 Unspecified cirrhosis of liver; D50.9 Iron deficiency anemia, unspecified
CPT/HCPCS: 36415; 80053; 80074; 82105; 82140; 82164; 82390; 82525; 82607; 82652; 82728; 82746; 83010; 83036; 83516; 83540; 83550; 83615; 85025; 85610; 85652; 86140; 86225; 86235; 86256; 86703; 86706

== ENCOUNTER 2023-01-02 14:44 | Inpatient (IN) | payer MEDICAID, SELFPAY ==
[2023-01-02] VITALS (7 sets, daily range): BP systolic 109–135; BP diastolic 49–79; PULSE 61–68; RESP 13–18; TEMP 35.9–37; O2SAT 94–100; BMI 45.7; BMI 43.3
--- OUTSIDE RECORDS SUMMARY | 2023-01-02 14:55 | XMS RPT_ITS | CCD ---
:1970 Author Organization [facility] Care Team Providers Name Role Phone Swa Torres Unavailable Unavailable PROVIDER, UNKNOWN Unavailable Unavailable PROVIDER, UNKNOWN Unavailable Unavailable Kendell Cha Unavailable Unavailable PROVIDER, UNKNOWN Unavailable Unavailable PROVIDER, UNKNOWN Unavailable Unavailable CAPSARMAD JAMESCY N Referring Unavailable CAPITO, JAY N Primary Care Unavailable CAPSARMAD JAMESCY N Primary Care Unavailable YESSI KENNEDY Attending Unavailable Delia Galicia I Primary Care Provider Delia Galicia I Primary Care Provider Delia Galicia MD I Primary Care Provider Mikael Drew APRN - NORBERT, Tim Primary Care Provider CHEVY WHITTINGTON Attending Unavailable Vitjovany, Delia Primary Care Unavailable PROVIDER, UNKNOWN Referring Unavailable DONTE CARUSO Attending Unavailable Helio Galician Primary Care Unavailable PROVIDER, UNKNOWN Referring Unavailable MEENA TOUSSAINT TIM Primary Care Physician [phone] TIM DELONG Attending Unavailable Unavailable Primary Care Provider Unavailable DAYO BELL Primary Care Unavailable CALVIN URBAN Admitting Unavailable CALVIN URBAN Attending Unavailable BENSON GARCIA Admitting Unavailable MEENA TOUSSAINT, TIM Primary Care Unavailable AMEE RICCI, HARMAN Maria Attending Unavailable LINDA RICCI, DR JALEESA Chandra Consulting Unavailable MEENA TOUSSAINT, TIM Consulting Unavailable KATHLEEN RICCI, CADE Consulting Unavailable ANAM KAISER DO Consulting Unavailable DR MUSTAPHA WOODWARD MD Admitting Unavailable MEENA TOUSSAINTTIM Primary Care Unavailable ALHATEM MD, DR SOHA Attending Unavailable PAULO GARCIA Attending Unavailable PAULO GARCIA Admitting Unavailable PAULO GARCIA Primary Care Unavailable CONSTANTINE JACOBSON MD Admitting Unavailable CONSTANTINE JACOBSON MD Primary Care Unavailable CONSTANTINE JACOBSON MD Attending Unavailable LYNDSEY JARRELL ROOFER GYPSUM Admitting Unavailable LYNDSEY JARRELL NP Primary Care Unavailable LYNDSEY JARRELL ROOFER GYPSUM Attending Unavailable LOIS MELGAR MD Admitting Unavailable LOIS MELGAR MD Primary Care Unavailable LOIS MELGAR MD Attending Unavailable SAW RIVER DO Primary Care Unavailable SAW RIVER DO Attending Unavailable SAW RIVER DO Admitting Unavailable Allergies Allergy Reported Allergy Type Date of Reaction(s) Facility Classification Allergen(s) Onset Acetaminophen / Drug Allergy [facility]a [facility] (11 sources) HYDROcodone; 4 Vomiting, [facility] [place], Translations: Upset [place] [HYDROCODONE-ACETA MINOPHEN] Dicyclomine Drug Allergy [facility] (8 sources) [address] [place] [address]- [place], [place] Medications Current Medications Medication Drug Class(es) Dates Sig (Normalized) Sig (Orig inal) [id number] 200 actuat albuterol 0.09 mg/actuat metered dose inhaler beta2-Adrenergic Start: take 2 puff(s) by albuterol sulfate (1 source) Agonist 08-11-2022 inhalation every six HFA (GA OVENTIL hours as needed for HFA) 108 (90 wheezing Base) MCG/ACT inhaler Inhale 2 puffs into the lungs every 6 hours as needed for Wheezing 18 g 0 08/11/2022 Active Start: 08-11-2022 take 2 puff(s) by inhalation every albut shirin sulfate HFA (PROVENTIL six hours as needed for wheezing HFA) 10 8 (90 Base) MCG/ACT inhaler Inhale 2 puf fs into the lungs every 6 hours as needed for Wheezing 18 g 0 07/25 Active ascorbic acid 500 mg oral tablet Vitamin C Start: 05-16-2020 paulina e 250 mg by 250 mg, Oral, 2 (12 sources) mouth twice daily TIMES DANIE Y, First dose on 04/25 at 0230 Start: 05-08-2020 take 250 mg by mouth twice 250 mg, Oral, 2 TIMES DAILY, First daily dose on 05/08/20 at 0900 Start: 04-09-2019 take 0.5 tablet by mouth twice vitamin C (ASCORBIC ACID) 500 MG End: 08-23-2021 daily tablet TAKE 1/2 OF A TABLET BY MOUTH TWICE DAILY. TAKE WI TH IRON 1 04/09/2019 1 Discontinued (LIST CLEANUP) Start: 02-16-2019 take 1 tablet by mouth twice Ascorbic Ac id (VITAMIN C) 250 MG End: 05-16-2020 daily tablet TAKE 1 TABLET BY MOUTH TWICE DAILY. TAKE WITH iro n. 3 02/16/2019 05/16/2020 Discontin ued (LIST CLEANUP) b yefxdoc-N-R-zinc (STRESS FORMULA W/ ZINC) 1 tablet S tart: 05-08-2020 take 1 1 tablet, Oral, (1 source) tablet by DAILY, First mouth once dose on Wed daily 05/08/20 at 0900 benzonatate 100 mg oral capsule Non-narcotic Start: 05-03-2020 take 100 mg 100 mg, Oral, 3 (2 sources) Antitussive End: 05-08-2020 by mouth TIMES DAILY three times PRN, Cough, daily as Starting Wed needed for 05/08/20 at 0539 cough 24 hr buPROPion hydrochloride 300 mg extended release oral t ablet Aminoketone Start: 10-31-2022 take 1 buPROPion 300 (14 sources) tablet by mg/24 hours mouth every (XL) oral hour, then tablet, take 1 extended tablet by release Dose : mouth once 300 mg = 1 daily tab(s), Oral, qDay, # 30 tab(s), 0 Refill(s) Start Date: 10/31/22 Status: Ordered Start: 05-12-2020 take 1 tablet by mouth once buPROPion (W ELLBUTRIN XL) 300 MG End: 08-23-2021 daily extended release tab let Take 1 tablet by mouth danie y 30 tablet 0 05/12/2020 1 Discontinued (LIST CLEANUP) Start: 04-17-2019 take 300 mg by mouth once 300 mg, Oral, DAILY, First dose on End: 05-08-2020 daily 05/08/20 at 0900 Do not crush or break. take 1 tablet by mouth once buPROPion XL (WELLBUTRIN XL) 150 mg daily 24 hr tablet Take 15 0 mg by mouth once daily. 0 Active Comment on above: Take 150 mg by mouth once da yvrose. busPIRone hydrochloride 10 mg oral tablet Start: 10-03 busPIRone 10 mg oral tablet (5 sources) Dose : 20 mg = 2 tab(s), Oral, TID, PRN Anxiety, # 90 tab(s), 1 Refil l(s) Start Date: 10/03/22 Status: Ordered Start: 04-07-2022 take 1-2 tablets by mouth three busPIRon e (BUSPAR) 5 MG tablet times daily as needed for Indications: G AD (generalized anxiety anxiety disorder) , Mood disorder ([facility]) TAKE 1 TO 2 TA BLETS BY MOUTH THREE TIMES A DAY NEEDED FOR ANXIETY 30 tablet 0 04/07/2022 Active Comment on above: Take 10 mg by mouth three ti mes daily as needed. citalopram 40 mg oral tablet Serotonin Reuptake Start: 10-03-2022 citalopram 40 mg oral (14 sources) Inhibitor tablet Dose : 4 0 mg = 1 tab(s), Oral, qDay, # 30 tab(s), 1 Refill(s) Start Date: 10/03/22 Status : Ordered Start: 03-17-2022 take 1 tablet by mouth once citalopram ( CELEXA) 40 MG tablet daily in the morning Indications: Mood d isorder ([facility]) Take 1 tablet by starr th every morning 30 tablet 2 03/17/2022 Active Start: 05-08-2020 take 40 mg by mouth once daily 40 mg, Or al, DAILY, First dose on End: 08-23-2021 Edith 05/16/20 at 0900 Comment on above: Take 40 mg by mouth once jorgito ly. cloNIDine hydrochloride 0.1 mg oral tablet Central alpha-2 Start: take 1 cloNIDine 0.1 mg (2 sources) Adrenergic 10-03-2022 tablet by oral tablet Dos e : Agonist mouth twice 0.01 mg =, Oral , daily as BID, PRN Anxiet y, 1 needed for Refill(s) Start anxiety Date: 10/03/22 Status: Ordered diclofenac sodium 0.01 mg/mg topical gel Nonsteroidal Start: diclofenac sodium (1 source) Anti-inflammatory 09-09-2022 (VOLTAREN) 1 % GEL Drug Indications: Ri ght knee pain, unspecified chronicity Appl y 2 g topically 4 sherrie es daily for 7 day s 56 g 0 07/03/2022 Active diphenhydrAMINE hydrochloride 25 mg oral tablet Histamine-1 Start: take 1 dose diphenhydrAMINE Dose (2 sources) Receptor 10-31-2022 by mouth : 25 mg =, Oral , Antagonist every six q6hr, PRN as ne eded hours as for allergy needed symptoms, 0 Refill(s) Start Date: 10/31/22 [facility]: Ordered Start: 05-08-2020 diphenhydrAMINE (INEZ ADRYL) tablet 25 mg docusate sodium 100 mg oral capsule Start: 05-16-2020 take 100 mg by mouth 100 mg, Oral, 2 TIMES (9 sources) twice daily as needed DAILY PRN, for constipation Constipatio n, Starting Edith 05/16/20 at 0205 Do not crush or br eak. Start: 05-11-2020 docusate sodium (COL AHMET) capsule End: 08-23-2021 100 mg Start: 04-09-2019 take 1 capsule by mouth once STOOL SOFTE NER 100 MG capsule daily at bedtime as needed TAKE ONE CAPS ULE BY MOUTH EVERY DAY AT BEDTIME NE EDED 0 04/09/2019 Active doxepin 3 mg oral tablet Tricyclic take 2 tablets b y doxepin (SILENOR) (1 source) Antidepressant mouth once daily, 3 MG TAB S tablet then take 1 tablet Take 6 mg by by mouth mouth nightly 0 Active 0.4 ml enoxaparin sodium 100 mg/ml prefilled syringe Low Mol ecular Weight Start: inject 40 mg by 40 mg, (1 source) Heparin 05-16-20 subcutaneous Subcutaneous, 20 injection once daily DAILY, First dose on Edith 05/16/20 at 0900 ferrous sulfate 325 mg oral tablet Start: IRON (ferrous (12 sources) 10-31-19 sulfate 325 mg) 23 65 mg oral tabl et Dose : 325 mg = 1 tab(s), Oral, qDay, Take with food., # 60 tab(s), 3 Refill(s) Start Date: 10/31/22 Status: Ordered Start: 10-07-2022 ferrous sulfate 325 mg (65 mg elemental iron) oral delayed release tablet Dose : 325 mg = 1 tab(s), Oral, qDay, # 30 tab(s), 0 Refill(s), Pharmacy: [facility][id number], 165, cm, 08/15 11:32:00 EST, Height Start Da te: 10/07/22 Status: Ordered Start: 06-26-2022 take 1 tablet by mouth once ferrous sulf ate (IRON 325) 325 (65 daily at breakfast Fe) MG tablet Indica tions: Iron deficiency anemia, u nspecified iron deficiency anem ia type Take 1 tablet by mouth danie y (with breakfast) 180 table t 1 06/26/2022 Active Start: 04-09-2019 take 1 tablet by mouth twice ferrous sul fate 325 (65 Fe) MG End: 08-23-2021 daily tablet TAKE ONE TABL ET BY MOUTH TWO TIMES A DAY. PAULINA E WITH VITAMIN C 1 04/09/201908/23 Discontinued (LIST C LEANUP) fluticasone propionate 0.05 mg/actuat metered dose nasal spr ay Corticosteroid Start: 06-09-2022 take 1 spray(s) fluticasone (3 sources) nasal route in (FLONASE) 50 the morning MCG/ACT nasal s pray Indications: Seasonal allerg ies 1 spray by Each Nostril route i n the morning. 16 g 3 06/09/2022 Acti ve fluticasone propiona te (FLONASE NASAL) Use in the nose once daily. 0 Active Comment on above: Use in the nose once daily. furosemide 20 mg oral tablet Loop Diuretic Start: 10-07-2022 Lasix 20 mg oral tablet (5 sources) Dose : 20 mg = 1 tab(s), Oral, BID, # 60 tab(s), 0 Refill(s), Phar [facility]: [facility] #[id number], 165 , cm, 10/03/22 11:32: 00 EST, Height Start Da te: 10/07/22 Status : Ordered Start: 07-16-2022 take 1 tablet by mouth once furosemide ( LASIX) 20 MG tablet daily Indications: Edema, unspecified type Take 1 tablet by starr th daily 60 tablet 3 07/16/2022 Active Start: 05-21-2020 furosemide (LASIX) i njection 20 mg End: 05-22-2020 4 ml labetalol hydrochloride 5 mg/ml cartridge beta-Adrenergic Star t: 10 mg, (1 source) Nolan 05-08-2020 Intravenous, EV LORETTA 4 HOURS PRN, Hi gh Blood Pressure, SBP>160. Use fi rst prior to hydralazine ord er, Starting 05/08/20 at 0539 HOLD for HR<60 lactulose 667 mg/ml oral solution Osmotic Laxative Start: 2022 take 1 dose Constulose 10 g/15 (10 sources) End: 12-02-2022 by mouth mL oral liqu id three times Dose : 30 gram( s) daily = 45 mL, Oral, TID, X 30 day(s ), # 4,050 mL, 0 Refill(s), 12/02/22 7:43:0 0 EST, Pharmacy: [id number], 165.1, cm , 10/31/22 1:25:0 0 EST, Height Sta rt Date: 11/02/22 St op Date: 12/02/22 Status: Ordered Start: 10-07-2022 take 1 dose by mouth every six lactulose 10 g/15 mL oral syrup Dose End: 11-06-2022 hours : 30 gram(s) = 45 mL , Oral, q6h, X 30 day(s), # 5,400 m L, 0 Refill(s), 11/06/22 11:45:00 ES T, Pharmacy: [facility] #[id number], 165 , cm, 10/03/22 11:32:00 EST, Height Start Date: 10/07/22 Stop Date: 11/06/22 Status: Ordered Start: 05-22-2020 lactulose (CHRONULAC ) 10 GM/15ML End: 08-23-2021 solution Take 15 mLs by mouth 2 times daily Ok to de crease dose if having more than two bowel movements per day. 1 Bottle 1 05/22/2020 08/23/2021 Discontin ued (LIST CLEANUP) Start: 05-22-2020 lactulose (CHRONULAC ) 10 GM/15ML solution 10 g Start: 05-20-2020 lactulose (CHRONULAC ) 10 GM/15ML End: 05-21-2020 solution 20 g loratadine 10 mg oral capsule Start: 06-09-2022 take 1 capsule by loratadine (CLARITIN) 10 (3 sources) mouth in the MG capsule Chetna cations: morning Seasonal allerg ies Take 1 capsule by mo uth in the morning. 30 capsule 3 06/09/2022 Ac tive take 1 tablet by mouth once daily lorata dine (CLARITIN) 10 mg tablet Take 10 mg by mouth once daily. 0 Active Comment on above: Take 10 mg by mouth once jorgito ly. magnesium citrate Start: 05-25-2019 take 1 dose by mag nesium citrate (1 source) mouth every other solution I ndications: day Encounter for diagnostic colo noscopy due to change i n bowel habits Take 296 mLs by mouth once for 1 dose 2 days preparatio n, see instruction let ter, pending colonos copy 296 mL 0 05/25/2019 Active melatonin 3 mg oral tablet Start: 05-08-2020 take 3 mg by mouth 3 mg, Oral, NIGHTLY (9 sources) End: 08-23-2021 once daily as PRN, Sleep, Starting needed for sleep Edith 05/16/20 at 0205 mirtazapine 15 mg oral tablet Start: 06-26-2022 take 1 tablet by mirtazapine (REMERON) (4 sources) mouth once daily 15 MG table t Indications: GA D (generalized an xiety disorder) , Anx iety Take 1 tablet b y mouth nightly 30 tabl et 1 06/26/2022 Acti ve take 1 tablet by mouth once mirtazapine (REMERON) 30 MG tablet End: 05-11-2020 daily Take 30 mg by mouth nightly 0 05/11/2020 Discontin ued (Stop Taking at Discharge) Comment on above: Take 15 mg by mouth daily at bedtime. naproxen 500 mg oral tablet Nonsteroidal Start: take 1 naproxen (1 source) Anti-inflammatory Drug 06-05-2022 tablet by (NAPR OSYN) 500 MG mouth in the tablet morning Indications: Chronic pain of right knee Take 1 tablet by mouth in the morning and 1 tablet in the evening. Ta ke with meals. Do all this for 10 days. 20 tablet 0 06/05/2022 Acti ve oxyCODONE hydrochloride 5 mg oral tablet Opioid Agonist Start: 05-22-2020 take 1 oxyCODONE (4 sources) End: 05-25-2020 tablet by (ROXICODONE) 5 MG mouth every immediate relea se six hours as tablet needed for Indications: pain Right lower quadrant abdominal pain Take 1 tablet b y mouth every 6 hours as needed (Severe pain) f or up to 3 days. 1 2 tablet 0 05/22/2020 05/25/2020 Acti ve Start: 05-20-2020 oxyCODONE (ROXICODON E) immediate release tablet 5 mg Start: 05-08-2020 take 1 tablet by mouth every oxyCODONE ( ROXICODONE) 5 MG End: 05-14-2020 four hours as needed for pain immediate release tablet Indications: Hematom a of right kidney, initial enco unter Take 1 tablet by mouth ever y 4 hours as needed for Pain for up to 3 days. 12 tablet 0 05/11/2020 05/14/2020 Active pantoprazole 40 mg delayed release oral tablet Proton Pump S tart: 05-25-2019 take 40 mg by 40 mg, Oral, DAILY (8 sources) Inhibitor End: 08-23-2021 mouth once BEFORE BREAK FAST, daily before First dose on hu breakfast 05/16/20 at 0700 Do not crush or break. polyethylene glycol 3350 34398 mg powder for oral solution O smotic Laxative Start: 05-16-2020 17 g, Oral, DAILY (1 source) PRN, Constipati on, Starting Edith 05/16/20 at 0205 First line ther apy for constipatio n prazosin 1 mg oral capsule alpha-Adrenergic Start: 06-26-2022 take 1 capsule prazosin 1 mg oral (5 sources) Nolan by mouth once capsule Dose : 2 daily at mg =, Oral, qHS , 0 bedtime Refill(s) Start Date: 10/03/22 Status: Ordered Comment on above: Take 1 mg by mouth daily at bedtime. Promethazine Phenothiazine Start: 05-16-2020 promethaz ine (PHENERGAN) tablet 12.5 (2 sources) mg Start: 05-08-2020 take 12.5 mg intravenous route 12.5 mg, Intravenous, EVERY 6 HOURS every six hours as needed for PRN, Nause a, Vomiting, Starting Wed nausea 05/08/20 at 0539 If P O nausea medication ordered, please use PO FIRST. Use IV or IM Phenergan if patient cannot ben ate PO order or use following PO med ication if the patient is having br eakthrough nausea For IV a dministration, dilute to 10ml with normal saline. Must be administered over at least 10 minutes. propranolol hydrochloride 10 mg oral tablet beta-Adrenergic Start: propranolol 10 (2 sources) Nolan 10-07-2022 mg oral tablet Dose : 10 mg = 1 tab(s), Oral, TID, # 90 tab(s), 0 Refill(s), Pharmacy: [facility] #[id number], 165 , cm, 10/03/22 11:32:00 EST, Height Start Date: 10/07/22 Status: Ordered QUEtiapine 100 mg oral tablet Atypical Start: take 1 dose QUEtiapine Dose (2 sources) Antipsychotic 10-31-2022 by mouth once : 100 mg =, daily at Oral, qHS, 0 bedtime Refill(s) Start Date: 10/31/22 Status: Ordered Start: 10-03-2022 SEROquel 50 mg oral tablet Dose : 50 mg = 1 tab(s), Oral, qHS, 0 Refill(s) Start Date : 10/03/22 Status: Ordered rifAXIMin 550 mg oral tablet Rifamycin Antibacterial Start: 022 Xifaxan 550 mg oral (3 sources) tablet Dose : 5 50 mg = 1 tab(s), Ora l, BID, # 60 tab(s ), 0 Refill(s) Start Date: 10/31/22 [facility]: Ordered sennosides, [facility] 8.6 mg oral tablet Start: 05-11-2020 senna (SENOKOT) (1 source) tablet 17.2 mg 3 ml sodium chloride 9 mg/ml injection Start: 05-20-20 20 sodium chloride (8 sources) flush 0.9 % injection 10 mL Start: 05-16-2020 10 mL, Intravenous, EVERY 12 HOURS SCHEDULED (2 t imes per day), First dose on Edith 05/16/20 at 0900 Start: 05-16-2020 take 10 mL intravenous route once 10 mL, Intravenous, PRN, Line as needed Care, After every IV line use, Starting Edith 05/16/20 at 0205 Start: 05-15-2020 0.9 % sodium chlorid e IV bolus End: 05-15-2020 3,402 mL Start: 05-15-2020 0.9 % sodium chlorid e bolus End: 05-15-2020 Start: 05-08-2020 10 mL, Intravenous, EVERY 12 HOURS SCHEDULED (2 t imes per day), First dose on Wed05/08/20 at 0900 Start: 05-08-2020 take 10 mL intravenous route once 10 mL, Intravenous, PRN, Line as needed Care, After every IV line use, Starting Wed05/08/20 at 0539 Start: 06-08-2019 0.9 % sodium chlorid e infusion sodium chloride flush 0.9 % injection 3 mL Start: 04-25 sodium chloride flush 0.9 % (1 source) injection 3 mL ursodiol 300 mg oral capsule Bile Acid Start: 05-16-2020 ursodiol (ACTIGALL) capsule (7 sources) 300 mg Start: 05-11-2020 take 1 tablet by mouth three ursodiol (A CTIGALL) 250 MG tablet End: 08-23-2021 times daily Take 1 tablet by starr 3 times daily 90 tablet 1 05/11/20 20 08/23/2021 Discontinued (LIST C LEANUP) Completed/Discontinued Medications Medication Drug Class(es) Dates Sig (Normalized) Sig (Orig inal) acetaminophen 500 mg oral tablet Start: 08-11-2022 acetaminophen (4 sources) End: 08-11-2022 (TYLENOL) ta blet 1,000 mg Start: 05-20-2020 acetaminophen (TYLEN OL) tablet 650 mg Start: 05-08-2020 acetaminophen (TYLEN OL) tablet 650 mg Start: 05-07-2020 acetaminophen (TYLEN OL) tablet 1,000 mg End: 05-07-2020 acetaminophen 325 mg / oxyCODONE hydrochloride 5 mg oral tab let Opioid Agonist Start: 05-16-2020 take 1 tablet 1 tablet, Oral, (1 source) End: 05-20-2020 by mouth every EVERY 4 HO URS PRN, four hours as Pain Moderate (4-6), needed for Starting [facility] pain at 0205 Maximum dose of acetaminophe n is 4000 mg from al l sources in 24 h ours. b complex vitamins capsule take 1 capsule b complex vitamins (7 sources) End: 08-23-2021 by mouth once capsule Paulina e 1 daily capsule by mout h daily 0 021 Discontinued (L IST CLEANUP) take 1 capsule by mouth once daily b com plex vitamins capsule Take 1 capsule by mouth daily 0 Active calcium chloride 0.0014 meq/ml / potassi um chloride 0.004 meq/ml / sodium chloride 0.103 meq/ml / sodium lactate 0.028 meq/ml injectable solution Start: 05-16-2020 1,000 mL, Intravenous, at 50 0 (3 sources) End: 05-16-2020 mL/hr, Admin ister over 2 Hours, ONCE, Edith at 0230, For 1 dose Start: 05-16-2020 Intravenous, at 125 mL/hr, CONTINUOUS, Starting Edith 05/16/20 at End: 05-17-2020 0230 Start: 05-07-2020 lactated [facility] End: 05-08-2020 cefTRIAXone (ROCEPHIN) 1 g IVPB in 50 mL D5W minibag S tart: 05-08-2020 cefTRIAXone (1 source) End: 05-08-2020 (ROCEPHIN) 1 g IVPB in 50 mL D 5W minibag docusate sodium 50 mg / sennosides, [facility] 8.6 mg oral tablet Start: 05-19-2020 sennosides-docusat (1 source) End: 05-21-2020 e sodium (SENOKOT-S) 8.6 -50 MG tablet 2 tab let ergocalciferol 1.25 mg oral capsule Provitamin D2 Start: 05-27-2020 take 1 vitamin D (6 sources) Compound End: 08-23-2021 capsule by (ERGOCALCIFE ROL) mouth every 1.25 MG (03770 UT) week CAPS capsule Ta ke 1 capsule by mo ut once a week 5 capsule 0 05/27/2020 08/23/2021 Discontinued (L IST CLEANUP) Start: 05-27-2020 take 1 capsule by mouth every vitamin D (ERGOCALCIFEROL) 1.25 MG week (64731 UT) CAPS caps ule Take 1 capsule by mouth once a week 5 capsule 0 05/27/2020 Active Start: 05-20-2020 vitamin D (ERGOCALCI FEROL) capsule 50,000 Units 2 ml famotidine 10 mg/ml injection Histamine-2 Receptor Start: 04-24 famotidine (PEPCID) (1 source) Antagonist End: 05-07-2020 injection 20 mg 2 ml fentaNYL 0.05 mg/ml injection Opioid Agonist Start: 05-20-2020 fentaNYL (SUBLIMAZE) (2 sources) End: 05-20-2020 injection Start: 05-16-2020 fentaNYL (SUBLIMAZE) injection End: 05-16-2020 1 ml HYDROmorphone hydrochloride 1 mg/ml cartridge Opioid Ag onist Start: 05-17-2020 HYDROmorphone (DILAUDID) (4 sources) End: 05-17-2020 injection 1 mg Start: 05-16-2020 take 0.5 mg by mouth every 0.5 mg, Intra venous, EVERY 4 HOURS End: 05-21-2020 four hours as needed for pain PRN, Pain Severe (7-10), Starting Edith 05/16/20 at 0205 If oral and IV narcotics ordered, u se oral first and only use IV if o ral is ineffective or canno t take oral. Do Not give oral and IV within 1 hour of each other unless specifically ordered. Start: 05-15-2020 HYDROmorphone (DILAU DID) injection 1 End: 05-15-2020 mg ibuprofen 800 mg oral tablet Nonsteroidal Start: 03-14-2019 take 1 ibuprofen (4 sources) Anti-inflammatory Drug End: 05-22-2020 tablet by (A DVIL;MOTCAROLE) 800 mouth three MG tablet TAKE 1 times daily TABLET BY MOUTH at mealtime THREE TIMES JORGITO LY as needed WITH FOOD for pain NEEDED FOR BACK /leg pain 0 03/14/2019 05/22/2020 Discontinued (S top Taking at Discharge) iopamidol (ISOVUE-370) 76 % injection 75 mL Start: iopamidol (1 source) End: 05-10-2020 (ISOVUE-370) 76 % injection 75 mL 150 ml levoFLOXacin 5 mg/ml injection Quinolone Start: 0 levoFLOXacin (1 source) Antimicrobial End: 05-16-2020 (LEVAQUIN) 750 MG/150ML infusi on 750 mg 10 ml lidocaine hydrochloride 10 mg/ml injection Antiarrhyth stew, Amide Start: 05-20-2020 lidocaine PF 1 % (1 source) Local Anesthetic End: 05-20-2020 injectio n 1 ml LORazepam 2 mg/ml injection Benzodiazepine Start: 08-23-2021 LORazepam (ATIVAN) (3 sources) End: 08-23-2021 injection 1 mg Start: 08-23-2021 take 1 tablet by mouth every LORazepam ( ATIVAN) 1 MG tablet End: 08-27-2021 eight hours as needed for Indications: A nxiety state , anxiety Shortness of breath , Shaking Take 1 tablet by mouth ev loretta 8 hours as needed for Anxiety f or up to 3 days. 9 tablet 0 08/27/2021 Active 100 ML metroNIDAZOLE 5 MG/ML Injection Nitroimidazole Start: 2019 metronidazole (1 source) Antimicrobial End: 05-08-2020 (FLAGYL) 50 0 mg in NaCl 100 mL IVP B premix 1 ml midazolam 5 mg/ml cartridge Benzodiazepine Start: 05-16-2020 midazolam (VERSED) (2 sources) End: 05-16-2020 injection 1 ml morphine sulfate 10 mg/ml injection Opioid Agonist Start: 04-24 morphine injection 4 (1 source) End: 05-08-2020 mg Multiple Vitamins-Minerals (MULTIVITAMIN ADULT PO) Multiple (7 sources) End: 08-23-2021 Vitamins-Min erals (MULTIVITAMIN A DULT PO) Take by starr th daily 0 021 Discontinued (L IST CLEANUP) Multiple Vitamins-Mi nerals (MULTIVITAMIN ADULT PO) Take by mouth daily 0 Active nadolol 20 mg oral tablet beta-Adrenergic Start: 07-31-2020 take 1 tablet nadolol (CORGARD) (2 sources) Nolan End: 08-23-2021 by mouth once 20 MG table t Take daily 1 tablet by starr th daily 30 tablet 2 07/31/2020 08/23/2021 Discontinued (LIST CLEANUP) omeprazole 40 mg delayed release oral capsule Proton Pump In hibitor Start: 04-09-2019 take 1 capsule omeprazole (2 sources) End: 05-08-2020 by mouth once (PRILOSEC) 40 MG daily before delayed release mealtime capsule TAKE ON E CAPSULE BY MOUT H EVERY DAY BEFOR E A MEAL 0 04/09/2019 05/08/2020 Discontinued (LIST CLEANUP) ondansetron 4 mg oral tablet Serotonin-3 Receptor Start: 020 take 1 tablet ondansetron (5 sources) Antagonist End: 08-23-2021 by mouth once (ZOFRAN) 4 MG daily as tablet Take 1 needed for tablet by mouth nausea daily as needed for Nausea or Vomiting 10 tablet 0 07/31/2020 08/23/2021 Discontinued (LIST CLEANUP) Start: 05-15-2020 ondansetron (ZOFRAN) injection 4 mg End: 05-15-2020 Start: 05-08-2020 take 4 mg by mouth every eight 4 mg, Ora l, EVERY 8 HOURS PRN, hours as needed for nausea Nausea, Vomit ing, Starting Wed05/08/20 at 0539 Start: 05-07-2020 ondansetron (ZOFRAN) injection 4 mg End: 05-07-2020 piperacillin 3000 mg / tazobactam 375 mg injection Penicilli n-class Start: 05-16-2020 3.375 g, (3 sources) Antibacterial, beta End: 05-20-2020 Intra venous, EVERY 8 Lactamase Inhibitor HOURS, F irst dose on Wed05/16/20 at 0230, Until Discontin ued Start: 05-15-2020 piperacillin-tazobac espino (ZOSYN) 4.5 g in dextrose 100 mL IVPB End: 05-15-2020 (premix) Start: 05-08-2020 3.375 g, Intravenous , EVERY 8 HOURS, First dose on Wed05/08/20 End: 05-11-2020 at 0700, Until Disco ntinued Suspected Sepsis of Abdominal Origin microencapsulated potassium chloride 10 meq extended release oral tablet Start: 05-22-2020 potassium chloride (5 sources) End: 05-22-2020 (KLOR-CON M) extended release tablet 40 mEq Start: 05-21-2020 potassium chloride ( KLOR-CON M) extended release tablet 40 mEq End: 05-21-2020 Start: 05-20-2020 potassium chloride 1 0 mEq/100 mL IVPB (Peripheral Line) End: 05-20-2020 Start: 05-18-2020 potassium chloride ( KLOR-CON M) extended release tablet 20 mEq End: 05-18-2020 Start: 05-09-2020 potassium chloride ( KLOR-CON) packet 40 mEq End: 05-09-2020 rOPINIRole 0.5 mg oral tablet Nonergot Dopamine Start: 05-17-2020 rOPINIRole (REQUIP) (11 sources) Agonist tablet 0.5 mg Start: 05-16-2020 rOPINIRole (REQUIP) tablet 1 mg Start: 05-08-2020 take 0.25 mg by mouth twice 0.25 mg, Ora l, 2 TIMES DAILY, First daily dose on Wed05/08/20 at 0900 Start: 04-09-2019 take 1 tablet by mouth twice rOPINIRole (REQUIP) 0.5 MG tablet End: 08-23-2021 daily Take 1 tablet by starr 2 times daily 20 tablet 0 05/22/20 20 08/23/2021 Discontinued (LIST C LEANUP) vancomycin (VANCOCIN) 1,750 mg in dextrose 5 % 500 mL IVPB Start: 05-16-2020 vancomycin (VANCOCIN) 1,750 mg (1 source) End: 05-16-2020 in dextrose 5 % 500 mL IVPB vancomycin (VANCOCIN) 2,500 mg in dextrose 5 % 500 mL IVPB Start: 05-15-2020 vancomycin (VANCOCIN) 2,500 mg (1 source) End: 05-16-2020 in dextrose 5 % 500 mL IVPB Problems Active Problems Problem Classification Problem Date Documented Date Ep isodic/Chronic Abdominal hernia Hiatal hernia; 06-08-2019 Episodic (8 sources) Translations: [Diaphragmatic hernia without obstruction or gangrene] Adjustment disorders Adjustment disorder Onset: 08-10-2014 Chronic (8 sources) with anxious mood; Translations: 4 [Adjustment disorder with anxiety] Alcohol-related disorders Alcoholic cirrhosis; Onset: Chronic (9 sources) Translations: [Alcoholic cirrhosis 2 of liver without ascites] Allergic reactions Allergy status to Onset: Epis odic (10 sources) other drugs, medicaments and 8 biological substances status; Translations: [Allergy status to narcotic agent status] Anxiety disorders Anxiety disorder, Onset: 11-06-2015 Chron ic (20 sources) unspecified; Translations: 6 [Anxiety] Blindness and vision defects Blurring of visual Episodic (1 source) image; Translations: [Blurry vision, bilateral] Chronic obstructive pulmonary disease and bronchiectasis Bronchitis ; Onset: Episodic (4 sources) Translations: [Bronchitis, not 2 specified as acute or chronic] Coagulation and hemorrhagic disorders Thrombocytopenic Chronic (1 source) disorder; Translations: [Thrombocytopenia, unspecified] Contraceptive and procreative management Tubal ligation status; Ons et: Episodic (1 source) Translations: [Tubal ligation status] 3 Deficiency and other anemia Pancytopenia; Chronic (2 sources) Translations: [Other pancytopenia] Deficiency and other anemia Anemia, unspecified; Onset: Episodic (1 source) Translations: [Anemia, unspecified] 9 Deficiency and other anemia Anemia; Translations: 05-25 Episodic (8 sources) [Anemia, unspecified] Deficiency and other anemia Iron deficiency Onset: Episodic (2 sources) anemia, unspecified; Translations: [Iron 2 deficiency anemia, unspecified] Deficiency and other anemia Iron deficiency Episodic (1 source) anemia; Translations: [Iron deficiency anemia, unspecified] Diseases of white blood cells Leukocytosis; Chronic (1 source) Translations: [Other elevated white blood cell (WBC) count] Diverticulosis and diverticulitis Diverticulosis of Chronic (8 sources) large intestine without diverticulitis; Translations: [Diverticulosis of large intestine without perforation or abscess without bleeding] Esophageal disorders Gastro-esophageal Onset: Ch ronic (2 sources) reflux disease without esophagitis; 2 Translations: [Gastro-esophageal reflux disease without esophagitis] Essential hypertension Essential Chron ic (2 sources) hypertension; Translations: [Essential (primary) hypertension] External cause codes: Natural/environment Overexertion from Onset: (2 sources) strenuous movement or load, initial 8 encounter; Translations: [Overexertion from strenuous movement or load, init] Fluid and electrolyte disorders Hypokalemia; Episodic (3 sources) Translations: [Lactic acidosis] Gastritis and duodenitis Chronic antral 06-08-2019 C hronic (2 sources) gastritis; Translations: [Unspecified chronic gastritis without bleeding] Gastritis and duodenitis Chronic antral 06-08-2019 E pisodic (6 sources) gastritis; Translations: [Chronic antral gastritis] Hemorrhoids Internal hemorrhoids 06-08-2019 Episodi c (2 sources) grade I; Translations: [First degree hemorrhoids] Hemorrhoids Internal hemorrhoids 06-08-2019 (6 sources) grade I; Translations: [First degree hemorrhoids] Influenza Influenza; Onset: Episodic (2 sources) Translations: [Influenza due to 3 other identified influenza virus with other respiratory manifestations] Mood disorders Depressive disorder; Onset: 11-06-2015 Chron ic (10 sources) Translations: [Depression] 6 Mood disorders Major depressive Onset: (3 sources) disorder, single episode, unspecified; 8 Translations: [Mood disorders] Nonmalignant breast conditions Cellulitis of breast; Episodic (1 source) Translations: [Cellulitis of left breast] Osteoarthritis Osteoarthritis of left Onset: 11-16-2017 Chr onic (4 sources) knee joint; Translations: 8 [Unilateral primary osteoarthritis, left knee] Other aftercare 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; Translations: 3 [Other watermelon harvesting supervisor (current) drug therapy] Other bone disease and musculoskeletal deformities Chondroco stal junction Onset: Episodic (1 source) syndrome [Tietze]; Translations: 9 [Chondrocostal junction syndrome (tietze)] Other connective tissue disease Presence of Onset: Chronic (2 sources) unspecified orthopedic joint implant; 8 Translations: [Presence of unspecified orthopedic joint implant] Other connective tissue disease Presence of left Onset: Chronic (3 sources) artificial knee joint; Translations: 2 [Presence of left artificial knee joint] Other diseases of kidney and ureters Hemorrhage of kidney; Onset: 05-08-2020 Episodic (2 sources) Translations: [Renal hemorrhage, right] 0 Other gastrointestinal disorders Irritable bowel Onset: Chronic (5 sources) syndrome without diarrhea; 8 Translations: [Irritable bowel syndrome without diarrhea] Other gastrointestinal disorders Irritable bowel Onset: 02-03 Chronic (2 sources) syndrome; Translations: 8 [Irritable bowel syndrome without diarrhea] Other gastrointestinal disorders Pale feces; Episodic (1 source) Translations: [Light stools] Other gastrointestinal disorders Splenomegaly; Episodic (1 source) Translations: [Splenomegaly, not elsewhere classified] Other liver diseases 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 biliary 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; Translations: [Primary biliary cirrhosis (HCC)] Other liver diseases Cirrhosis of liver; Onset: 07-18-2020 Chronic (10 sources) Translations: [Unspecified cirrhosis 8 of liver] Other liver diseases Portal hypertension; Chronic (2 sources) Translations: [Portal hypertension] Other liver diseases Unspecified cirrhosis Onset: Chronic (1 source) of liver; Translations: 3 [Unspecified cirrhosis of liver] Other liver diseases Abnormal levels of Onset: E pisodic (1 source) other serum enzymes; Translations: 9 [Abnormal levels of other serum enzymes] Other liver diseases Hepatic failure; Onset: Epi sodic (1 source) Translations: [Hepatic failure, unspecified 2 without coma] Other liver diseases Hepatic Onset: Episodi c (8 sources) encephalopathy; Translations: [Hepatic 2 encephalopathy] Other lower respiratory disease Cough; Translations: Onset: Episodic (2 sources) [Cough] 8 Other nervous system disorders Tremor; Translations: Episodic (1 source) [Tremor, unspecified] Other non-traumatic joint disorders Pain in left shoulder; Onset: Episodic (2 sources) Translations: [Pain in left shoulder] 8 Other nutritional; endocrine; and metabolic disorders 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; Translations: [Disorder of urea cycle metabolism, unspecified] Other nutritional; endocrine; and metabolic disorders Obesit y; Translations: Onset: 11-16-2017 Chronic (2 sources) [Obesity, unspecified] 8 Other nutritional; endocrine; and metabolic disorders Obese clas s II; Onset: 06-15-2022 Chronic (2 sources) Translations: [Obesity, unspecified] 2 Other nutritional; endocrine; and metabolic disorders Disord er of urea cycle Onset: Chronic (1 source) metabolism, unspecified; 3 Translations: [Disorder of urea cycle metabolism, unspecified] Other upper respiratory disease Other seasonal Onset: Chronic (2 sources) allergic rhinitis; Translations: [Other 2 seasonal allergic rhinitis] Other upper respiratory disease Pain in throat; Episodic (1 source) Translations: [Pain in throat] Other upper respiratory disease Pain in throat; Onset: Episodic (2 sources) Translations: [Pain in throat] 2 Other upper respiratory infections Acute maxillary Onset: Episodic (2 sources) sinusitis, unspecified; 8 Translations: [Acute maxillary sinusitis, unspecified] Pneumonia (except that caused by tuberculosis or sexua lly transmitted disease) Infective pneumonia; 05-16-2020 Episodic (7 sources) Translations: [Pneumonia, unspecified organism] Residual codes; unclassified Insomnia, unspecified; Onset: Episodic (4 sources) Translations: [Insomnia, 8 unspecified] Residual codes; unclassified Acquired absence of Onset: Episodic (5 sources) other specified parts of digestive tract; 8 Translations: [Acquired absence of other specified parts of digestive tract] Residual codes; unclassified Altered mental status, Onset: Episodic (4 sources) unspecified; Translations: [Altered 3 mental status, unspecified] Screening and history of mental health and substance a buse codes Personal history of Onset: Episodic (4 sources) nicotine dependence; Translations: 8 [Personal history of nicotine dependence] Septicemia (except in labor) Sepsis without acute (1 source) organ dysfunction; Translations: [Sepsis without acute organ dysfunction, due to unspecified organism (HCC)] Substance-related disorders Nicotine dependence; Onset: 06-15 Chronic (3 sources) Translations: [Nicotine dependence, 2 unspecified, uncomplicated] Unclassified Sprain of left rotator Onset: 10-09-2018 (6 sources) cuff capsule; Translations: [Sprain 8 of left rotator cuff capsule] Unclassified Finding of pelvis; (1 source) Translations: [Free fluid in pelvis] Unclassified Encounter for Onset: (1 source) laboratory testing for COVID-19 virus; 2 Translations: [Encounter for laboratory testing for COVID-19 virus] Urinary tract infections Urinary tract Ep isodic (1 source) infectious disease; Translations: [Urinary tract infection, site not specified] Past or Other Problems Problem Problem Date Documented Date Episodic/Chr onic Classification Abdominal pain Right lower quadrant Episo dic (2 sources) pain; Translations: [Right lower quadrant abdominal pain] Anal and rectal conditions Rectal polyp; 06-08-2019 Episodic (8 sources) Translations: [Rectal Resolved: 06-13-2019 polyp] Nausea and vomiting Nausea with vomiting, Onset: Episodic (1 source) unspecified; 05-06-2022 Translations: [Nausea and vomiting, unspecified vomiting type] Other and unspecified benign neoplasm Benign neoplasm of 06-08-2019 Episodic (8 sources) transverse colon; Resolved: 06-13-2019 Translations: [Benign neoplasm of transverse colon] Other and unspecified benign neoplasm Benign neoplasm of 06-08-2019 Episodic (8 sources) cecum; Translations: Resolved: 06-13-2019 [Benign neoplasm of cecum] Other and unspecified benign neoplasm History of Onset: Episodic (7 sources) adenomatous polyp of 06-13-2019 colon; Translations: [Personal history of colonic polyps] Other connective tissue disease Spasm; Translations: Onset: 1 Episodic (8 sources) [Other muscle spasm] 08-10-2014 Other diseases of kidney and ureters Hematoma of kidney; Onset: 05-17-2020 Episodic (8 sources) Translations: [Minor 05-08-2020 contusion of unspecified kidney, initial encounter] Other liver diseases Hepatic failure, Onset: Epi sodic (1 source) unspecified without 06-12-2022 coma; Translations: [Hepatic encephalopathy (HCC)] Other lower respiratory disease Dyspnea; Onset: Episodic (2 sources) Translations: 08-23-2021 [Shortness of breath] Other lower respiratory disease Shortness of breath; Onset: Episodic (1 source) Translations: 08-23-2021 [Shortness of breath] Other lower respiratory disease Other nonspecific Onset: Episodic (2 sources) abnormal finding of 08-23-2021 lung field; Translations: [Other nonspecific abnormal finding of lung field] Other non-traumatic joint disorders Shoulder pain; Onset: Episodic (8 sources) Translations: [Pain 10-09-2018 in left shoulder] Other screening for suspected conditions (not mental disorders or infectious disease) Liver function tests Onset: 08-17-2014 Episodic (16 sources) abnormal; 08-17-2014 Translations: [CT of head abnormal] Residual codes; unclassified Insomnia; Onset: 11-06-2015 Episodic (8 sources) Translations: 11-06-2015 [Insomnia, unspecified] Septicemia (except in labor) Sepsis; Translations: Onset: Episodic (8 sources) [Sepsis, unspecified 05-15-2020 organism] Spondylosis; intervertebral disc disorders; other back problems Sciatica, right side; Onset: 08-10-2014 Episodic (10 sources) Translations: [Low 08-10-2014 back pain] Sprains and strains Sprain of left Onset: 10-09-2018 Episod ic (4 sources) rotator cuff capsule, 10-09-2018 initial encounter; Translations: [Sprain of left rotator cuff capsule] Results Test Name Value Interpretation Reference Range Facility CBC + DIFF DAILY on 01-01-2023 Baso # 0.00 x10EE3/UL Normal 0.00 - 0.10 [facility] Comment on above: Performed By: #### [id number] ## ##[facility],[address] [place] [address] Basophils/100 WBC (Bld) 0.8 % Normal 0.0 - 2.0 [facility] Comment on above: Performed By: #### [id number] ## ##[facility],[address] [place] [address] CBC + DIFF DAILY Normal [facility] Comment on above: Result Comment: CBC-COMPLETE BLOOD COUNT Performed By: #### [id number] ## ##[facility],[address] [place] [address] EO # 0.20 x10EE3/UL Normal 0.00 - 0.50 [facility] Comment on above: Performed By: #### [id number] ## ##[facility],[address] [place], [place] [id number] Eosinophils/100 WBC (Bld) 7.7 % High 0.0 - 7.0 [facility] Comment on above: Performed By: #### [id number] ## ##[facility],[address] [place] [address] Erythrocyte distribution width 16.1 % High 12.0 - 15. 6 [facility] (RBC) [Ratio] Hospital Comment on above: Performed By: #### [id number] ## ##[facility],[address] [place] [address] Hematocrit (Bld) [Volume 36.8 % Normal 34.0 - 46.0 [facility]] [facility] Comment on above: Performed By: #### [id number] ## ##[facility],[address] [place], [place] [id number] Hemoglobin (Bld) [Mass/Vol] 12.2 g/dL Normal 12.0 - 16.0 [facility] Comment on above: Performed By: #### [id number] ## ##[facility],[address] [place] [address] Lymph # 1.00 x10EE3/UL Normal 0.80 - 2.80 [facility] Comment on above: Performed By: #### [id number] ## ##[facility],[address] [place] [address] Lymphocytes/100 WBC (Bld) 32.5 % Normal 20.0 - 45.0 [facility] Comment on above: Performed By: #### [id number] ## ##[facility],[address] [place] [address] MANUAL DIFF N/A Normal [facility] Comment on above: Performed By: #### [id number] ## ##[facility],[address] [place] [address] 54038 MCH (RBC) [Entitic mass] 31 pg Normal 27 - 33 [facility] Comment on above: Performed By: #### [id number] ## ##[facility],[address] [place] [address] 30689 MCHC 33 X10 3 Normal 32 - 36 [facility] Comment on above: Performed By: #### [id number] ## ##[facility],[address] [place] [address] 67377 MCV (RBC) [Entitic vol] 92 fL Normal 80 - 99 [facility] Comment on above: Performed By: #### [id number] ## ##[facility],[address] [place] [address] 33015 Sequoyah # 0.40 x10EE3/UL Normal 0.20 - 1.00 [facility] Comment on above: Performed By: #### [id number] ## ##[facility],[address] [place] [address] 27055 MONOS % 14.4 % High 0.0 - 10.0 [facility] Comment on above: Performed By: #### [id number] ## ##[facility],[address] [place] [address] 23575 Morphology Giovanni (Bld) [Interp] N/A Normal [facility] Comment on above: Performed By: #### [id number] ## ##[facility],[address] [place] [address] 15898 Neut # 1.40 x10EE3/UL Low 1.50 - 7.10 [facility] Comment on above: Performed By: #### [id number] ## ##[facility],[address] [place] [address] 60632 Neutrophils/100 WBC (Bld) 44.6 % Low 46.0 - 76.0 [facility] Comment on above: Performed By: #### [id number] ## ##[facility],[address] [place] [address] 45942 PLATELET 78 x10EE3/UL Low 150 - 450 [facility] Comment on above: Performed By: #### [id number] ## ##[facility],[address] [place] [address] 84851 Platelet mean volume (Bld) 9.1 fL Normal 6.6 - 10.5 [facility]] [facility] Comment on above: Result Comment: AUTOMATED DI FFERENTIAL Performed By: #### [id number] ## ##[facility],[address] [place] [address] 26053 RBC 3.99 x 10EE6/UL Low 4.10 - 5.30 [facility] Comment on above: Performed By: #### [id number] ## ##[facility],[address] [place] [address] 11505 WBC 3.1 x 10EE3/UL Low 4.5 - 10.8 [facility] Comment on above: Performed By: #### [id number] ## ##[facility],[address] [place] [address] CBC + DIFF DAILY on 12-31-2022 CBC + DIFF DAILY Normal [facility] Comment on above: Result Comment: CBC-COMPLETE BLOOD COUNT Performed By: #### [id number] ## ## [facility],[address] [place] [address] CELL COUNT 100 Normal [facility] Comment on above: Performed By: #### [id number] ## ## [facility],[address] [place] [address] EO 8.0 % High 0.0 - 4.0 [facility] Comment on above: Performed By: #### [id number] ## ## [facility],[address] [place] [address] Erythrocyte distribution width 16.5 % High 12.0 - 15. 6 [facility] (RBC) [Ratio] [facility] Comment on above: Performed By: #### [id number] ## ## [facility],[address] [place] [address] Hematocrit (Bld) [Volume 38.3 % Normal 34.0 - 46.0 [facility] Comment on above: Performed By: #### [id number] ## ## [facility],[address] [place] [address] Hemoglobin (Bld) [Mass/Vol] 12.7 g/dL Normal 12.0 - 16.0 [facility] Comment on above: Performed By: #### [id number] ## ## [facility],[address] [place] [address] Lymphocytes/100 WBC (Bld) 24 % Normal 20 - 40 [facility] Comment on above: Performed By: #### [id number] ## ## [facility],[address] [place] [address] MANUAL DIFF SEE BELOW Normal [facility] Comment on above: Performed By: #### [id number] ## ## [facility],[address] [place] [address] MCH (RBC) [Entitic mass] 30 pg Normal 27 - 33 [facility] Comment on above: Performed By: #### [id number] ## ## [facility],[address] [place] [address] MCHC 33 X10 3 Normal 32 - 36 [facility] Comment on above: Performed By: #### [id number] ## ## [place] [address] MCV (RBC) [Entitic vol] 92 fL Normal 80 - 99 [facility] Comment on above: Performed By: #### [id number] ## ## [facility],[address] [place] [address] MONOS 11 % High 0 - 8 [facility] Comment on above: Performed By: #### [id number] ## ## [place] [address] Morphology Giovanni (Bld) [Interp] REVIEWED Normal [facility] Comment on above: Performed By: #### [id number] ## ## [place] [address] PLATELET 79 x10EE3/UL Low 150 - 450 [facility] Comment on above: Performed By: #### [id number] ## ## [place] [address] Platelet mean volume (Bld) 8.4 fL Normal 6.6 - 10.5 [facility] [Entitic vol] [facility] Comment on above: Result Comment: AUTOMATED DI FFERENTIAL Performed By: #### [id number] ## ## [address],[place] [address] RBC 4.17 x 10EE6/UL Normal 4.10 - 5.30 [facility] Comment on above: Performed By: #### [id number] ## ## [facility],[address] [place] [address] 73123 SEGS 57 % Normal 50 - 70 [facility] Comment on above: Performed By: #### [id number] ## ## [facility],[address] [place] [address] 57480 WBC 3.6 x 10EE3/UL Low 4.5 - 10.8 [facility] Comment on above: Performed By: #### [id number] ## ## [facility],[address] [place], [place] [id number] CBC + DIFF DAILY on 12-30-2022 CBC + DIFF DAILY Normal [facility] Comment on above: Result Comment: CBC-COMPLETE BLOOD COUNT Performed By: #### [id number] ## ## [facility],[address] [place] [address] 43950 EO 8.0 % High 0.0 - 4.0 [facility] Comment on above: Performed By: #### [id number] ## ## [facility],[address] [place] [address] 22783 EO # 0.30 x10EE3/UL Normal 0.00 - 0.50 [facility] Comment on above: Performed By: #### [id number] ## ## [facility],[address] [place] [address] 52690 Erythrocyte distribution width 15.7 % High 12.0 - 15. 6 [facility] (RBC) [Ratio] [facility] Comment on above: Performed By: #### [id number] ## ## [facility],[address] [place] [address] 69623 Hematocrit (Bld) [Volume 37.3 % Normal 34.0 - 46.0 [facility] Comment on above: Performed By: #### [id number] ## ## [facility],[address] [place] [address] Hemoglobin (Bld) [Mass/Vol] 12.3 g/dL Normal 12.0 - 16.0 [facility] Comment on above: Performed By: #### [id number] ## ## [facility],[address] [place] [address] Lymph # 1.30 x10EE3/UL Normal 0.80 - 2.80 [facility] Comment on above: Performed By: #### [id number] ## ## [facility],[address] [place] [address] Lymphocytes/100 WBC (Bld) 38 % Normal 20 - 40 [facility] Comment on above: Performed By: #### [id number] ## ## [facility],[address] [place] [address] MANUAL DIFF SEE BELOW Normal [facility] Comment on above: Performed By: #### [id number] ## ## [facility],[address] [place] [address] MCH (RBC) [Entitic mass] 29 pg Normal 27 - 33 [facility] Comment on above: Performed By: #### [id number] ## ## [facility],[address] [place] [address] MCHC 33 X10 3 Normal 32 - 36 [facility] Comment on above: Performed By: #### [id number] ## ## [facility],[address] [place], [place] [id number] MCV (RBC) [Entitic vol] 89 fL Normal 80 - 99 [facility] Comment on above: Performed By: #### [id number] ## ## [facility],[address] [place] [address] Sequoyah # 0.30 x10EE3/UL Normal 0.20 - 1.00 [facility] Comment on above: Performed By: #### [id number] ## ## [facility],[address] [place] [address] 10073 MONOS 8 % Normal 0 - 8 [facility] Comment on above: Performed By: #### [id number] ## ## [facility],[address] [place] [address] 64714 Morphology Giovanni (Bld) [Interp] NORMAL Normal [facility] Comment on above: Performed By: #### [id number] ## ## [facility],[address] [place] [address] 82745 Neut # 1.50 x10EE3/UL Normal 1.50 - 7.10 [facility] Comment on above: Performed By: #### [id number] ## ## [facility],[address] [place] [address] 90279 PLATELET 72 x10EE3/UL Low 150 - 450 [facility] Comment on above: Performed By: #### [id number] ## ## [facility],[address] [place] [address] 37705 Platelet mean volume (Bld) 8.4 fL Normal 6.6 - 10.5 [facility] [[facility] Comment on above: Result Comment: AUTOMATED DI FFERENTIAL Performed By: #### [id number] ## ## [facility],[address] [place] [address] 60301 RBC 4.18 x 10EE6/UL Normal 4.10 - 5.30 [facility] Comment on above: Performed By: #### [id number] ## ## [facility],[address] [place] [address] 26654 SEGS 46 % Low 50 - 70 [facility] Comment on above: Performed By: #### [id number] ## ## [facility],[address] [place] [address] 17005 WBC 3.3 x 10EE3/UL Low 4.5 - 10.8 [facility] Comment on above: Performed By: #### [id number] ## ## [facility],[address] [place], [place] [id number] EMERGENCY REPORT on 12-30-2022 EMERGENCY REPORT [facility] Normal [facility] EMERGENCY ROOM REPORT NAME ACCOUNT SEX AGE ADMIT DISCHARGE PT MED. RECORD# NUMBER DATE DATE TYPE LINDA [id number] F 52 12/22/22 3 [facility] [id number] ROOM: ER DATE OF : 1970 DICTATING PHYSICIAN: Paulo Garcia CHIEF COMPLAINT: Confusion and mental status changes. HISTORY OF PRESENT ILLNESS: The patient has a known hi story significant for liver cirrhosis and hepatic encephalopathy. She probably has a mood disorder as well. She has had at least in the past noncompliance with medications and so recurrent episodes of confusion and me ntal status changes. She lives with her brother who helps with her care. I talke d with him and he states that she usually is quite well when she is taking her medication s. She had been doing fairly well. She had been admitted to [place] over a month ago and to [place] several weeks ago. He states that she sleeps in another room down the jackson and he hear d her through the night being somewhat restless. This morn ing when he left for work he looked in on her and she was not sleeping but did not seem in any distress. When he got home from work this afternoon she had been incontinent of stool on t he floor of her room. She was apparently playing in the [place] and seemed very confused and uncooperative. He had to call the squad to transpo rt her here. Upon arrival here she is confused, somewhat lethargic, and really not ab le to give any history. When I talked to her she will basically just repeat her name, either that or she will not answer me at all. She does not seem to be in distress. PAST MEDICAL HISTORY: As mentioned significant f or a history of alcohol abuse with liver cirrhosis. Also a history of depression, anxiety and some mood disorder. PAST SURGICAL HISTORY: As per surgery list. MEDICATIONS: Per medication reconciliation list. SOCIAL HISTORY: She lives at home with her brother who helps with her care though he states that he nee ds to leave for work and so is not there a lot. She does not smoke or drink alcohol. She has a history of drink ing in the past. REVIEW OF SYSTEMS: Unable to obtain from the patient. I talked to her brother. He states that she is seeing several physicians trying to get this condition under control and when she gets like this she is supposed to go to [place] . He did not know the name of her physicians and she is unable to tell me th ose. PHYSICAL EXAMINATION: GENERAL: A 52-year-old obese fem chris who is awake but does not really respond to questions or commands. She is not agitated or Page 1 of 2 [facility] Emergency Room Report [facility] : 1970 combative. She does not appear in any distress. SKIN: [place], warm and dry. HEENT: Normal. NECK: Supple. LUNGS: Clear. CARDIAC: Re gular rhythm without ectopy or murmurs. She is obese. ABDOMEN: Soft , nontender. She moves extremities appropriat james without any focal weakness. Good peripheral pulses and capillary refill. She do es have stool on her hands. VITAL SIGNS: Temperature 97.8. Pulse 106. Respirations 18. BP 146/67. Her O2 sa turation is 96%. DIAGNOSTIC DATA: We did proceed to get a head CT which was negative and a number of lab studies. CBC s howed a white count of 5100. Unremarkable differential. Hemoglobin 15.2 and hematocrit 46.2. Sedimentation rat e was 3. INR 1.1. CMP normal. Electrolytes normal BUN and creatinine. AST an d ALT were 43 and 27. Alkaline phosphatase 167. Bi lirubin 1.2. Lactate is 1.3. Her ammonia level returns significantly elevated at 94. CPK and CRP are normal. Troponin and BNP are normal. I did get ABGs which were generally unremarkable as well, pH 7.39, PCO2 42, PO2 66, bicarb 25. DIAGNOSIS: Impression is hepatic encephalopathy. PLAN/DISPOSITION: I talked t o her brother who is leaving and is going to be gone for a couple of days. I am i n the process of trying to arrange admission for her. Dictated By: Paulo Garcia MD 12/22/22 20:51 JOB #: [id number] Transcribed By: irwin 12/22/22 21:52 Electronically signed by: NORBERT Garcia M.D. 12/30/22 07:05 Page 2 of 2 [facility] Emergency Room Report CBC + DIFF DAILY on 12-29-2022 Baso # 0.00 x10EE3/UL Normal 0.00 - 0.10 [facility] Comment on above: Performed By: #### [id number] ## ##[facility],[address] [place] [address] 61289 Basophils/100 WBC (Bld) 1.5 % Normal 0.0 - 2.0 [facility] Comment on above: Performed By: #### [id number] ## ##[facility],[address] [place] [address] 16850 CBC + DIFF DAILY Normal [facility] Comment on above: Result Comment: CBC-COMPLETE BLOOD COUNT Performed By: #### [id number] ## ##[facility],[address] [place] [address] 40064 EO # 0.30 x10EE3/UL Normal 0.00 - 0.50 [facility] Comment on above: Performed By: #### [id number] ## ##[facility],[address] [place] [address] 00583 Eosinophils/100 WBC (Bld) 8.6 % High 0.0 - 7.0 [facility] Comment on above: Performed By: #### [id number] ## ##[facility],[address] [place] [address] 52140 Erythrocyte distribution width 16.1 % High 12.0 - 15. 6 [facility] (RBC) [Ratio] [facility] Comment on above: Performed By: #### [id number] ## ##[facility],[address] [place] [address] 58617 Hematocrit (Bld) [Volume 38.7 % Normal 34.0 - 46.0 [facility] Comment on above: Performed By: #### [id number] ## ##[facility],[address] [place] [address] 15458 Hemoglobin (Bld) [Mass/Vol] 12.7 g/dL Normal 12.0 - 16.0 [facility] Comment on above: Performed By: #### [id number] ## ##[place] [address] Lymph # 0.90 x10EE3/UL Normal 0.80 - 2.80 [facility] Comment on above: Performed By: #### [id number] ## ##[place] [address] Lymphocytes/100 WBC (Bld) 30.0 % Normal 20.0 - 45.0 [facility] Comment on above: Performed By: #### [id number] ## ##[place] [address] MANUAL DIFF N/A Normal [facility] Comment on above: Performed By: #### [id number] ## ##[place] [address] MCH (RBC) [Entitic mass] 30 pg Normal 27 - 33 [facility] Comment on above: Performed By: #### [id number] ## ##[place] [address] MCHC 33 X10 3 Normal 32 - 36 [facility] Comment on above: Performed By: #### [id number] ## ##[place] [address] MCV (RBC) [Entitic vol] 91 fL Normal 80 - 99 [facility] Comment on above: Performed By: #### [id number] ## ##[place] [address] Sequoyah # 0.40 x10EE3/UL Normal 0.20 - 1.00 [facility] Comment on above: Performed By: #### [id number] ## ##[place] [address] MONOS % 14.6 % High 0.0 - 10.0 [facility] Comment on above: Performed By: #### [id number] ## ##[facility],[address] [place] [address] 14120 Morphology Giovanni (Bld) [Interp] N/A Normal [facility] Comment on above: Performed By: #### [id number] ## ##[facility],[address] [place] [address] 19428 Neut # 1.40 x10EE3/UL Low 1.50 - 7.10 [facility] Comment on above: Performed By: #### [id number] ## ##[facility],[address] [place] [address] Neutrophils/100 WBC (Bld) 45.3 % Low 46.0 - 76.0 [facility] Comment on above: Performed By: #### [id number] ## ##[place] [address] PLATELET 67 x10EE3/UL Low 150 - 450 [facility] Comment on above: Performed By: #### [id number] ## ##[facility],[address] [place] [address] Platelet mean volume (Bld) 9.0 fL Normal 6.6 - 10.5 [facility] [[facility]] [facility] Comment on above: Result Comment: AUTOMATED DI FFERENTIAL Performed By: #### [id number] ## ##[facility],[address] [place] [address] 25584 RBC 4.23 x 10EE6/UL Normal 4.10 - 5.30 [facility] Comment on above: Performed By: #### [id number] ## ##[facility],[address] [place], [place] [id number] WBC 3.0 x 10EE3/UL Low 4.5 - 10.8 [facility] Comment on above: Performed By: #### [id number] ## ##[facility],[address] [place] [address] CORONAVIRUS (SARS) ANTIGEN TEST on EXTERNAL QC DONE? YES Normal [facility] Comment on above: Performed By: #### [id number] ## ## [facility],[address] [place] [address] 06746 INTERNAL CONTROL PASS Normal [facility] Comment on above: Performed By: #### [id number] ## ## [facility],[address] [place] [address],[facility] [address] SARS ANTIGEN Negative Normal NORMAL: NEGATIVE [facility] Comment on above: Performed By: #### [id number] ## ## [facility],[address] [place], [place] [id number] SEND TO IC? YES Normal [facility] Comment on above: Result Comment: SARS-CoV-2 THIS TEST IS BEING USED UNDE R THE FDA EUA PROCEDURE. THIS ASSAY HAS BEEN VALIDATED AT [facility] FOR USE WITH NASAL AND NASOPHARYNGEAL SWAB SPECIMENS. INTERPRETIVE DATA TEST RESULTS SHOULD ALWAYS B E CONSIDERED IN THE CONTEXT OF CLINICAL OBSERVATIONS AND EPIDEMIOLOG ICAL DATA IN MAKING FINAL DIAGNOSIS AND PATIENT MANAGEMENT DECISIONS. PATIEN T MANAGEMENT SHOULD FOLLOW CURRENT CDC GUIDELINES. THE ABIGAIL SARS ANTIGEN KEAGAN D OES NOT DIFFERENTIATE BETWEEN SARS-CoV & SARS-CoV-2. A POSITIVE TEST RESULT INDIC ATES THE PRESENCE OF SARS-CoV-2 NUCLEOCAPSID PROTEIN ANTIGEN, AND THE PATIENT IS INFECTED WITH THE VIRUS AND PRESUMED TO BE CONTAGIOUS. A NEGATIVE TEST RESULT FOR T HIS TEST MEANS THAT SARS-CoV-2 NUCLEOCAPSID PROTEIN ANTIGEN WAS NOT PRESENT IN T HE SPECIMEN ABOVE THE LIMIT OF DETECTION. HOWEVER, A NEGATIVE RESULT DOES NOT RUL E OUT COVID-19 AND SHOULD NOT BE USED THE SOLE BASIS FOR TREATMENT OR PATIE NT MANAGEMENT DECISIONS. A NEGATIVE RESULT DOES NOT EXCLUDE THE POSSIBILITY OF C OVID-19. NEGATIVE RESULTS, FROM PATIENTS WITH SYMPTOM ONSET BEYOND FIVE DA YS, SHOULD BE TREATED PRESUMPTIVE AND CONFIRMATION WITH A MOLECULA R ASSAY, IF NECESSARY, FOR PATIENT MANAGEMENT, MAY BE PERFORMED. WHEN DIAGNOSTIC TESTING IS N EGATIVE, THE POSSIBLILTY OF A FALSE NEGATIVE RESULT SHOULD BE CONSIDERED IN THE CONTEXT OF A PATIENT'S RECENT EXPOSURES AND THE PRESENCE OF CLINICAL SIGNS A ND SYMPTOMS CONSISTENT WITH COVID-19. THE POSSIBILITY OF A FALSE NEGAT COREEN RESULT SHOULD ESPECIALLY BE CONSIDERED IF THE PATIENT'S RECENT EXPOSURES O R CLINICAL PRESENTATION INDICATE THAT COVID-19 IS LIKELY, AND DIAGNOSTIC TESTS FOR OTHER CAUSES OF ILLNESS (e.g., OTHER RESPIRATORY ILLNESS) ARE NEG ATIVE. IF COVID-19 IS STILL SUSPECTED BASED ON EXPOSURE HISTORY TOGETHER WI TH OTHER CLINICAL FINDINGS, RE-TESTING SHOULD BE CONSIDERED BY [employer] IN CONSULTATION WITH PUBLIC HEALTH AUTHORITIES. Performed By: #### [id number] ## ## [facility],[address] [place], [place] [id number] AMMONIA on 12-28-2022 Ammonia (P) [Moles/Vol] 100.0 umol/L High 11.0 - 32.0 [facility] Comment on above: Performed By: #### [id number] ## ## [place] [address] CBC + DIFF DAILY on 12-28-2022 Baso # 0.00 x10EE3/UL Normal 0.00 - 0.10 [facility] Comment on above: Performed By: #### [id number] ## ## [address] [address] Basophils/100 WBC (Bld) 1.0 % Normal 0.0 - 2.0 [facility] Comment on above: Performed By: #### [id number] ## ## [address] [address] CBC + DIFF DAILY Normal [facility] Comment on above: Result Comment: CBC-COMPLETE BLOOD COUNT Performed By: #### [id number] ## ## [address] [address] EO # 0.30 x10EE3/UL Normal 0.00 - 0.50 [facility] Comment on above: Performed By: #### [id number] ## ## [address] [address] Eosinophils/100 WBC (Bld) 8.9 % High 0.0 - 7.0 [facility] Comment on above: Performed By: #### [id number] ## ## [facility],[address] [place] [address] Erythrocyte distribution width 16.6 % High 12.0 - 15. 6 [facility] (RBC) [Ratio] [facility] Comment on above: Performed By: #### [id number] ## ## [facility],[address] [place] [address] Hematocrit (Bld) [Volume 37.6 % Normal 34.0 - 46.0 [facility] Comment on above: Performed By: #### [id number] ## ## [facility],[address] [place] [address] Hemoglobin (Bld) [Mass/Vol] 12.5 g/dL Normal 12.0 - 16.0 [facility] Comment on above: Performed By: #### [id number] ## ## [facility],[address] [place] [address] Lymph # 1.00 x10EE3/UL Normal 0.80 - 2.80 [facility] Comment on above: Performed By: #### [id number] ## ## [place] [address] Lymphocytes/100 WBC (Bld) 33.6 % Normal 20.0 - 45.0 [facility] Comment on above: Performed By: #### [id number] ## ## [facility],[address] [place] [address] MANUAL DIFF REVIEWED Normal [facility] Comment on above: Performed By: #### [id number] ## ## [facility],[address] [place] [address] MCH (RBC) [Entitic mass] 30 pg Normal 27 - 33 [facility] Comment on above: Performed By: #### [id number] ## ## [facility],[address] [place], [place] [id number] MCHC 33 X10 3 Normal 32 - 36 [facility] Comment on above: Performed By: #### [id number] ## ## [facility],[address] [place] [address]576 MCV (RBC) [Entitic vol] 91 fL Normal 80 - 99 [facility] Comment on above: Performed By: #### [id number] ## ## [facility],[address] [place] [address] Sequoyah # 0.40 x10EE3/UL Normal 0.20 - 1.00 [facility] Comment on above: Performed By: #### [id number] ## ## [facility],[address] [place], [place] [id number] MONOS % 13.6 % High 0.0 - 10.0 [facility] Comment on above: Performed By: #### [id number] ## ## [facility],[address] [place], [place] [id number] Morphology Giovanni (Bld) [Interp] SEE BELOW Normal [facility] Comment on above: Performed By: #### [id number] ## ## [facility],[address] [place], [place] [id number] Neut # 1.20 x10EE3/UL Low 1.50 - 7.10 [facility] Comment on above: Performed By: #### [id number] ## ## [facility],[address] [place], [place] [id number] Neutrophils/100 WBC (Bld) 42.9 % Low 46.0 - 76.0 [facility] Comment on above: Performed By: #### [id number] ## ## [facility],[address] [place], [place] [id number] PLATELET 60 x10EE3/UL Low 150 - 450 [facility] Comment on above: Performed By: #### [id number] ## ## [facility],[address] [place] [address] 82662 Platelet mean volume (Bld) 8.7 fL Normal 6.6 - 10.5 [facility] [[facility]] [facility] Comment on above: Result Comment: AUTOMATED DI FFERENTIAL Performed By: #### [id number] ## ## [facility],[address] [place] [address] 02888 PLT EST DECREASED Normal [facility] Comment on above: Performed By: #### [id number] ## ## [facility],[address] [place] [address] 92075 RBC 4.14 x 10EE6/UL Normal 4.10 - 5.30 [facility] Comment on above: Performed By: #### [id number] ## ## [facility],[address] [place] [address] 86511 WBC 2.9 x 10EE3/UL Low 4.5 - 10.8 [facility] Comment on above: Performed By: #### [id number] ## ## [facility],[address] [place] [address] AMMONIA on 12-27-2022 Ammonia (P) [Moles/Vol] 114.0 umol/L High 11.0 - 32.0 [facility] Comment on above: Performed By: #### [id number] ## ## [facility],[address] [place] [address] 38816 AMMONIA on 12-26-2022 Ammonia (P) [Moles/Vol] 119.0 umol/L High 11.0 - 32.0 [facility] Comment on above: Performed By: #### [id number] ## ## [facility],[address] [place] [address]39 EMERGENCY REPORT on 12-26-2022 EMERGENCY REPORT [facility] Normal [facility] EMERGENCY ROOM REPORT NAME ACCOUNT SEX AGE ADMIT DISCHARGE PT MED. RECORD# NUMBER DATE DATE TYPE LINDA, [id number] F 52 12/23/22 1 [facility] [id number] ROOM: 302 DATE OF : 1970 DICTATING PHYSICIAN: Robson Gandhi CHIEF COMPLAINT: Patient came to the Emergency Departm ent last evening for altered mental status. HISTORY OF PRESENT ILLNESS: She has a history of hepat ic encephalopathy from apparently not taking her me dication. While she is here she did take her lactulose. She is pleasantly confused. She does follow commands and can be directed but she does not know what year it i s or what month. Had a conversation with Ever's brother Vaibhav. Vaibhav wanted to try t o take care of her when she was here the last time and at the end of October he felt t hat he could make her take her medications and he could live with her and he was jairon faria to try this. In talking with Vaibhav this morning he says he can no longer do this. He wo rks and is gone from the house from 4:00 a.m. to 4:00 p.m. most days and this is j ust too much for him. He has tried it for 2 months and he cannot do it any longer. Als o, an issue of contention with Ever according to Vaibhav is her medical power of finance attorney at this time. She has her own medical power of finance attorney which and she has not been c ompliant with her medications and is not able to take care of herself. She is an alcoho lic but has not had any alcohol to drink for over 2 months. Vaibhav states that she has no alcohol or drug use. She is in probation he states and gets drug tested twice a wee k. Initially Dr. Garcia talked to Dr. Jacobson and the game plan was to try to get her a dmitted to [place]. She has been here for over 15 hours. We still do not have a bed f or her, but in light of her issues I think her main issue has been noncompliance with not taking her lactulose. I think if we admit her here and she takes her lactulose we can t hen get her hopefully admitted to a fdc or half-way where she can be cared for. I did discuss this with Dr. Jacobson this morning. He is agreeable to admit her. EMERGENCY DEPARTMENT COURSE AND TREATMENT: We did repe at her blood work. Since she has been her e she has had 3 doses of lactulose, although the 3rd dose was concurrent with melia wing her blood. Her second ammonia level was 90. Her BUN is 20, creatinine 0.8. W bridger count 6,000 and she will be admitted to the hospital. DIAGNOSIS: Patient is diagno sed with altered mental status, hepatic encephalopathy, probably secondary to noncompliance. Dictated By: Robson Gandhi DO 12/23/22 19:02 Page 1 of 2 [facility] Emergency Room Report [facility] : 1970 JOB #: [id number] Transcribed By: kandice 12/23/22 19:39 Electronically signed by: NORBERT Gandhi DO 12/26/22 08:34 Page 2 of 2 [facility] Emergency Room Report AMMONIA on 12-25-2022 Ammonia (P) [Moles/Vol] 177.0 umol/L High 11.0 - 32.0 [facility] Comment on above: Performed By: #### [id number] ## ## [facility],[address] [place] [address] Ammonia (P) [Moles/Vol] 185.0 umol/L High 11.0 - 32.0 [facility] Comment on above: Performed By: #### [id number] ## ##[facility],[address] [place], [place] [id number] CBC + DIFF on 12-25-2022 Baso # 0.00 x10EE3/UL Normal 0.00 - 0.10 [facility] Comment on above: Performed By: #### [id number] ## ## [facility],[address] [place] [address] 15394 Basophils/100 WBC (Bld) 0.6 % Normal 0.0 - 2.0 [facility] Comment on above: Performed By: #### [id number] ## ## [facility],[address] [place], [place] [address] CBC + DIFF Normal [facility] Comment on above: Result Comment: CBC-COMPLETE BLOOD COUNT Performed By: #### [id number] ## ## [facility],[address] [place] [address] 61167 EO # 0.30 x10EE3/UL Normal 0.00 - 0.50 [facility] Comment on above: Performed By: #### [id number] ## ## [facility],[address] [place], [place] [id number] Eosinophils/100 WBC (Bld) 6.9 % Normal 0.0 - 7.0 [facility] Comment on above: Performed By: #### [id number] ## ## [facility],[address] [place] [address] Erythrocyte distribution width 16.9 % High 12.0 - 15. 6 [facility] (RBC) [Ratio] [facility] Comment on above: Performed By: #### [id number] ## ## [place] [address] Hematocrit (Bld) [Volume 39.7 % Normal 34.0 - 46.0 [facility] Comment on above: Performed By: #### [id number] ## ## [facility],[address] [place], [place] [id number] Hemoglobin (Bld) [Mass/Vol] 13.3 g/dL Normal 12.0 - 16.0 [facility] Comment on above: Performed By: #### [id number] ## ## [facility],[address] [place] [address] 99789 Lymph # 1.30 x10EE3/UL Normal 0.80 - 2.80 [facility] Comment on above: Performed By: #### [id number] ## ## [facility],[address] [place], [place] [id number] Lymphocytes/100 WBC (Bld) 31.3 % Normal 20.0 - 45.0 [facility] Comment on above: Performed By: #### [id number] ## ## [facility] [place] [address] MANUAL DIFF REVIEWED Normal [facility] Comment on above: Performed By: #### [id number] ## ## [facility],[address] [place] [address] MCH (RBC) [Entitic mass] 30 pg Normal 27 - 33 [facility] Comment on above: Performed By: #### [id number] ## ## [facility],[address] [place] [address] MCHC 34 X10 3 Normal 32 - 36 [facility] Comment on above: Performed By: #### [id number] ## ## [facility],[address] [place] [address] MCV (RBC) [Entitic vol] 91 fL Normal 80 - 99 [facility] Comment on above: Performed By: #### [id number] ## ## [facility],[address] [place] [address] Sequoyah # 0.70 x10EE3/UL Normal 0.20 - 1.00 [facility] Comment on above: Performed By: #### [id number] ## ## [facility],[address] [place] [address] MONOS % 15.8 % High 0.0 - 10.0 [facility] Comment on above: Performed By: #### [id number] ## ## [facility],[address] [place], [place] [id number] Morphology Giovanni (Bld) [Interp] REVIEWED Normal [facility] Comment on above: Performed By: #### [id number] ## ## [facility],[address] [place] [address] Neut # 1.90 x10EE3/UL Normal 1.50 - 7.10 [facility] Comment on above: Performed By: #### [id number] ## ## [facility],[address] [place] [address] 04092 Neutrophils/100 WBC (Bld) 45.4 % Low 46.0 - 76.0 [facility] Comment on above: Performed By: #### [id number] ## ## [facility],[address] [place] [address] 81490 PLATELET 74 x10EE3/UL Low 150 - 450 [facility] Comment on above: Performed By: #### [id number] ## ## [facility],[address] [place] [address] 96577 Platelet mean volume (Bld) 9.0 fL Normal 6.6 - 10.5 [facility] [Entitic [facility]] [facility] Comment on above: Result Comment: AUTOMATED DI FFERENTIAL Performed By: #### [id number] ## ## [facility],[address] [place] [address] 78294 RBC 4.37 x 10EE6/UL Normal 4.10 - 5.30 [facility] Comment on above: Performed By: #### [id number] ## ## [facility],[address] [place] [address] 69107 WBC 4.1 x 10EE3/UL Low 4.5 - 10.8 [facility] Comment on above: Performed By: #### [id number] ## ## [facility],[address] [place] [address] 62399 CMP with eGFR on 12-25-2022 AGE 52 years Normal [facility] Comment on above: Performed By: #### [id number] ## ## [facility],[address] [place] [address] 13258 Albumin [Mass/Vol] 2.5 g/dL Low 3.4 - 5.0 [facility] Comment on above: Performed By: #### [id number] ## ## [facility],[address] [place] [address] 51000 Albumin/Globulin [Mass ratio] 0.8 {ratio} Low 0.9 - 1.6 [facility] Comment on above: Performed By: #### [id number] ## ## [facility],[address] [place] [address] 78131 ALK PHOS 141 U/L High 46 - 116 [facility] Comment on above: Performed By: #### [id number] ## ## [facility],[address] [place] [address] 03444 ALT [Catalytic activity/Vol] 29 U/L Normal 14 - 59 [facility] Comment on above: Performed By: #### [id number] ## ## [facility],[address] [place] [address] 01501 Anion gap [Moles/Vol] 8 mmol/L Low 10 - 20 [facility] Comment on above: Performed By: #### [id number] ## ## [facility],[address] [place] [address] 87119 AST [Catalytic activity/Vol] 34 U/L Normal 13 - 39 [facility] Comment on above: Performed By: #### [id number] ## ## [facility],[address] [place] [address] 02148 B/C RATIO 16 ratio Normal 0 - 30 [facility] Comment on above: Performed By: #### [id number] ## ## [facility],[address] [place] [address] 30258 Bilirubin [Mass/Vol] 0.8 mg/dL Normal 0.2 - 1.0 [facility] Comment on above: Performed By: #### [id number] ## ## [facility],[address] [place] [address] 02734 Calcium [Mass/Vol] 9.6 mg/dL Normal 8.5 - 10.1 [facility] Comment on above: Performed By: #### [id number] ## ## [facility],[address] [facility] [address] Chloride [Moles/Vol] 105 mmol/L Normal 98 - 107 [facility] Comment on above: Performed By: #### [id number] ## ## [facility],[address] [facility] 14878 CMP with eGFR Normal [facility] Comment on above: Result Comment: COMPREHENSIV E METABOLIC PANEL Performed By: #### [id number] ## ## [facility],[address] [facility] 8[address] CO2 [Moles/Vol] 27.4 mmol/L Normal 21.0 - 32.0 [facility] Comment on above: Performed By: #### [id number] ## ## [facility],[address] [place] [address] 85572 Creatinine [Mass/Vol] 0.86 mg/dL Normal 0.55 - 1.02 [facility] Comment on above: Performed By: #### [id number] ## ## [facility],[address] [place] [address] 42249 GFR/1.73 sq M.predicted mL/min/{1.73_m2} Normal 60 - 999 [facility] among non-blacks MDRD Hospit al (S/P/Bld) [Vol rate/Area] Comment on above: Performed By: #### [id number] ## ## [facility],[address] [place] [address] 87101 Result Comment: ACCORDING TO THE NATIONAL KIDNEY DISEASE EDUCATION PROGRAM(NKDE), A NORMAL eGFR IS A VALUE GREATER THAN OR E QUAL TO 60 ML/MIN/1.73 SQ METERS. CHRONIC KIDNEY DISEASE: <60m L/MIN/1.73 SQ METERS KIDNEY FAILURE: <15mL/MIN/1. 73 SQ METERS THIS TEST SHOULD ONLY BE USE D FOR PATIENTS 18 YEARS OF AGE AND OLDER. Globulin (S) [Mass/Vol] 3.1 g/dL Normal 1.5 - 3.8 [facility] Comment on above: Performed By: #### [id number] ## ## [facility],[address] [place] [address] 90032 Glucose [Mass/Vol] 123 mg/dL High 74 - 106 [facility] Comment on above: Performed By: #### [id number] ## ## [facility],[address] [place] [address] 57197 Potassium [Moles/Vol] 3.8 mmol/L Normal 3.5 - 5.1 [facility] Comment on above: Performed By: #### [id number] ## ## [facility],[address] [place] [address] 95367 Protein [Mass/Vol] 5.6 g/dL Low 6.4 - 8.2 [facility] Comment on above: Performed By: #### [id number] ## ## [facility],[address] [place] [address] 18856 Sodium [Moles/Vol] 137 mmol/L Normal 136 - 145 [facility] Comment on above: Performed By: #### [id number] ## ## [facility],[address] [place] [address] 47791 Urea nitrogen [Mass/Vol] 14 mg/dL Normal 7 - 18 [facility] Comment on above: Performed By: #### [id number] ## ## [facility],[address] [place] [address] 25779 TROPONIN I, HIGH SENSITIVITY on 023 HS TROPONIN 5.5 pg/mL Normal 0.0 - 51.4 [facility] Comment on above: Performed By: #### [id number] ## ## [facility],[address] [place] [address] 67653 AMMONIA on 12-24-2022 Ammonia (P) [Moles/Vol] 66.0 umol/L High 11.0 - 32.0 [facility] Comment on above: Performed By: #### [id number] ## ## [facility],[address] [place] [address] 02062 CBC + DIFF on 12-24-2022 Baso # 0.00 x10EE3/UL Normal 0.00 - 0.10 [facility] Comment on above: Performed By: #### [id number] ## ##[facility],[address] [place] [address] 86719 Basophils/100 WBC (Bld) 0.8 % Normal 0.0 - 2.0 [facility] Comment on above: Performed By: #### [id number] ## ##[facility],[address] [place] [address] 07084 CBC + DIFF Normal [facility] Comment on above: Result Comment: CBC-COMPLETE BLOOD COUNT Performed By: #### [id number] ## ##[facility],[address] [place] [address] 44037 EO # 0.30 x10EE3/UL Normal 0.00 - 0.50 [facility] Comment on above: Performed By: #### [id number] ## ##[facility],[address] [place] [address] 38164 Eosinophils/100 WBC (Bld) 6.8 % Normal 0.0 - 7.0 [facility] Comment on above: Performed By: #### [id number] ## ##[facility],[address] [place] [address] 39316 Erythrocyte distribution width 17.1 % High 12.0 - 15. 6 [facility] (RBC) [Ratio] [facility] Comment on above: Performed By: #### [id number] ## ##[facility],[address] [place] [address] 24888 Hematocrit (Bld) [Volume 40.1 % Normal 34.0 - 46.0 [facility] Comment on above: Performed By: #### [id number] ## ##[facility],[address] [place] [address] 74369 Hemoglobin (Bld) [Mass/Vol] 13.5 g/dL Normal 12.0 - 16.0 [facility] Comment on above: Performed By: #### [id number] ## ##[facility],[address] [place] [address] Lymph # 1.50 x10EE3/UL Normal 0.80 - 2.80 [facility] Comment on above: Performed By: #### [id number] ## ##[facility],[address] [place] [address] Lymphocytes/100 WBC (Bld) 35.0 % Normal 20.0 - 45.0 [facility] Comment on above: Performed By: #### [id number] ## ##[facility],[address] [place] [address] MANUAL DIFF REVIEWED Normal [facility] Comment on above: Performed By: #### [id number] ## ##[facility],[address] [place] [address] MCH (RBC) [Entitic mass] 30 pg Normal 27 - 33 [facility] Comment on above: Performed By: #### [id number] ## ##[facility],[address] [place] [address] MCHC 34 X10 3 Normal 32 - 36 [facility] Comment on above: Performed By: #### [id number] ## ##[facility],[address] [place] [address] MCV (RBC) [Entitic vol] 89 fL Normal 80 - 99 [facility] Comment on above: Performed By: #### [id number] ## ##[facility],[address] [place] [address] 23982 Sequoyah # 0.60 x10EE3/UL Normal 0.20 - 1.00 [facility] Comment on above: Performed By: #### [id number] ## ##[facility],[address] [place] [address] MONOS % 13.8 % High 0.0 - 10.0 [facility] Comment on above: Performed By: #### [id number] ## ##[facility],[address] [place] [address] 78778 Morphology Giovanni (Bld) [Interp] REVIEWED Normal [facility] Comment on above: Performed By: #### [id number] ## ##[facility],[address] [place] [address] 19506 Neut # 1.90 x10EE3/UL Normal 1.50 - 7.10 [facility] Comment on above: Performed By: #### [id number] ## ##[facility],[address] [place] [address] 76980 Neutrophils/100 WBC (Bld) 43.6 % Low 46.0 - 76.0 [facility] Comment on above: Performed By: #### [id number] ## ##[facility],[address] [place] [address] 20317 PLATELET 73 x10EE3/UL Low 150 - 450 [facility] Comment on above: Performed By: #### [id number] ## ##[facility],[address] [place] [address] 95076 Platelet mean volume (Bld) 8.5 fL Normal 6.6 - 10.5 [facility] [[facility]] [facility] Comment on above: Result Comment: AUTOMATED DI FFERENTIAL Performed By: #### [id number] ## ##[facility],[address] [place] [address] 43528 RBC 4.50 x 10EE6/UL Normal 4.10 - 5.30 [facility] Comment on above: Performed By: #### [id number] ## ##[facility],[address] [place] [address] 95062 WBC 4.4 x 10EE3/UL Low 4.5 - 10.8 [facility] Comment on above: Performed By: #### [id number] ## ##[facility],[address] [place] [address] 42663 CMP with eGFR on 12-24-2022 AGE 52 years Normal [facility] Comment on above: Performed By: #### [id number] ## ## [facility],[address] [place] [address] 29210 Albumin [Mass/Vol] 2.8 g/dL Low 3.4 - 5.0 [facility] Comment on above: Performed By: #### [id number] ## ## [facility],[address] [place], [place] [id number] Albumin/Globulin [Mass ratio] 0.9 {ratio} Normal 0.9 - 1.6 [facility] Comment on above: Performed By: #### [id number] ## ## [facility],[address] [place] [address] 25566 ALK PHOS 119 U/L High 46 - 116 [facility] Comment on above: Performed By: #### [id number] ## ## [facility],[address] [place], [place] [id number] ALT [Catalytic activity/Vol] 25 U/L Normal 14 - 59 [facility] Comment on above: Performed By: #### [id number] ## ## [facility],[address] [place] [address] 86592 Anion gap [Moles/Vol] 12 mmol/L Normal 10 - 20 [facility] Comment on above: Performed By: #### [id number] ## ## [facility],[address] [place] [address] 49934 AST [Catalytic activity/Vol] 39 U/L Normal 13 - 39 [facility] Comment on above: Performed By: #### [id number] ## ## [facility],[address] [place] [address] 17587 B/C RATIO 16 ratio Normal 0 - 30 [facility] Comment on above: Performed By: #### [id number] ## ## [facility],[address] [place] [address] 03619 Bilirubin [Mass/Vol] 1.4 mg/dL High 0.2 - 1.0 [facility] Comment on above: Performed By: #### [id number] ## ## [facility],[address] [facility] [address] Calcium [Mass/Vol] 9.2 mg/dL Normal 8.5 - 10.1 [facility] Comment on above: Performed By: #### [id number] ## ## [facility],[address] [facility] 06616 Chloride [Moles/Vol] 111 mmol/L High 98 - 107 [facility] Comment on above: Performed By: #### [id number] ## ## [facility],[address] [place], [place] [id number] CMP with eGFR Normal [facility] Comment on above: Result Comment: COMPREHENSIV E METABOLIC PANEL Performed By: #### [id number] ## ## [facility],[address] [place] [address] 79031 CO2 [Moles/Vol] 23.6 mmol/L Normal 21.0 - 32.0 [facility] Comment on above: Performed By: #### [id number] ## ## [facility],[address] [place] [address] 94548 Creatinine [Mass/Vol] 0.75 mg/dL Normal 0.55 - 1.02 [facility] Comment on above: Performed By: #### [id number] ## ## [facility],[address] [place] [address] 55620 GFR/1.73 sq M.predicted mL/min/{1.73_m2} Normal 60 - 999 [facility]-blacks MDRD Hospit al (S/P/Bld) [Vol rate/Area] Comment on above: Performed By: #### [id number] ## ## [facility],[address] [place] [address] 62357 Result Comment: ACCORDING TO THE NATIONAL KIDNEY DISEASE EDUCATION PROGRAM(NKDE), A NORMAL eGFR IS A VALUE GREATER THAN OR E QUAL TO 60 ML/MIN/1.73 SQ METERS. CHRONIC KIDNEY DISEASE: <60m L/MIN/1.73 SQ METERS KIDNEY FAILURE: <15mL/MIN/1. 73 SQ METERS THIS TEST SHOULD ONLY BE USE D FOR PATIENTS 18 YEARS OF AGE AND OLDER. Globulin (S) [Mass/Vol] 3.2 g/dL Normal 1.5 - 3.8 [facility] Comment on above: Performed By: #### [id number] ## ## [facility],[address] [place] [address] 16790 Glucose [Mass/Vol] 95 mg/dL Normal 74 - 106 [facility] Comment on above: Performed By: #### [id number] ## ## [facility],[address] [place] [address] 56802 Potassium [Moles/Vol] 3.8 mmol/L Normal 3.5 - 5.1 [facility] Comment on above: Performed By: #### [id number] ## ## [facility],[address] [place] [address] 25305 Protein [Mass/Vol] 6.0 g/dL Low 6.4 - 8.2 [facility] Comment on above: Performed By: #### [id number] ## ## [facility],[address] [place] [address] 62725 Sodium [Moles/Vol] 143 mmol/L Normal 136 - 145 [facility] Comment on above: Performed By: #### [id number] ## ## [facility],[address] [place] [address] 86507 Urea nitrogen [Mass/Vol] 12 mg/dL Normal 7 - 18 [facility] Comment on above: Performed By: #### [id number] ## ## [facility],[address] [place] [address] 76289 AMMONIA on 12-23-2022 Ammonia (P) [Moles/Vol] 90.0 umol/L High 11.0 - 32.0 [facility] Comment on above: Performed By: #### [id number] ## ## [facility],[address] [place] [address] 49166 CBC + DIFF on 12-23-2022 Baso # 0.10 x10EE3/UL Normal 0.00 - 0.10 [facility] Comment on above: Performed By: #### [id number] ## ## [facility],[address] [place] [address] 84571 Basophils/100 WBC (Bld) 0.9 % Normal 0.0 - 2.0 [facility] Comment on above: Performed By: #### [id number] ## ## [facility],[address] [place] [address] 88957 CBC + DIFF Normal [facility] Comment on above: Result Comment: CBC-COMPLETE BLOOD COUNT Performed By: #### [id number] ## ## [facility],[address] [place] [address] 93930 EO # 0.30 x10EE3/UL Normal 0.00 - 0.50 [facility] Comment on above: Performed By: #### [id number] ## ## [facility],[address] [place] [address] 16256 Eosinophils/100 WBC (Bld) 5.7 % Normal 0.0 - 7.0 [facility] Comment on above: Performed By: #### [id number] ## ## [facility],[address] [place] [address] 22075 Erythrocyte distribution width 17.5 % High 12.0 - 15. 6 [facility] (RBC) [Ratio] [facility] Comment on above: Performed By: #### [id number] ## ## [facility],[address] [place] [address] 15582 Hematocrit (Bld) [Volume 41.5 % Normal 34.0 - 46.0 [facility]] [facility] Comment on above: Performed By: #### [id number] ## ## [facility],[address] [place] [address] Hemoglobin (Bld) [Mass/Vol] 13.8 g/dL Normal 12.0 - 16.0 [facility] Comment on above: Performed By: #### [id number] ## ## [facility],[address] [place] [address] Lymph # 1.50 x10EE3/UL Normal 0.80 - 2.80 [facility] Comment on above: Performed By: #### [id number] ## ## [facility],[address] [place] [address] Lymphocytes/100 WBC (Bld) 24.6 % Normal 20.0 - 45.0 [facility] Comment on above: Performed By: #### [id number] ## ## [facility],[address] [place] [address] MANUAL DIFF REVIEWED Normal [facility] Comment on above: Performed By: #### [id number] ## ## [facility],[address] [place] [address] MCH (RBC) [Entitic mass] 30 pg Normal 27 - 33 [facility] Comment on above: Performed By: #### [id number] ## ## [facility],[address] [place] [address] MCHC 33 X10 3 Normal 32 - 36 [facility] Comment on above: Performed By: #### [id number] ## ## [facility],[address] [place], [place] [id number] MCV (RBC) [Entitic vol] 90 fL Normal 80 - 99 [facility] Comment on above: Performed By: #### [id number] ## ## [facility],[address] [place] [address] Sequoyah # 1.00 x10EE3/UL Normal 0.20 - 1.00 [facility] Comment on above: Performed By: #### [id number] ## ## [facility],[address] [place] [address] 94174 MONOS % 16.3 % High 0.0 - 10.0 [facility] Comment on above: Performed By: #### [id number] ## ## [facility],[address] [place] [address] Morphology Giovanni (Bld) [Interp] REVIEWED Normal [facility] Comment on above: Result Comment: {CD] Performed By: #### [id number] ## ## [facility],[address] [place] [address] Neut # 3.20 x10EE3/UL Normal 1.50 - 7.10 [facility] Comment on above: Performed By: #### [id number] ## ## [facility],[address] [place] [address] Neutrophils/100 WBC (Bld) 52.5 % Normal 46.0 - 76.0 [facility] Comment on above: Performed By: #### [id number] ## ## [facility],[address] [place] [address] PLATELET 86 x10EE3/UL Low 150 - 450 [facility] Comment on above: Performed By: #### [id number] ## ## [facility],[address] [place] [address] Platelet mean volume (Bld) 8.6 fL Normal 6.6 - 10.5 [facility] [[facility]] [facility] Comment on above: Result Comment: AUTOMATED DI FFERENTIAL Performed By: #### [id number] ## ## [facility],[address] [place], [place] [id number] RBC 4.62 x 10EE6/UL Normal 4.10 - 5.30 [facility] Comment on above: Performed By: #### [id number] ## ## [facility],[address] [facility] 25988 WBC 6.0 x 10EE3/UL Normal 4.5 - 10.8 [facility] Comment on above: Performed By: #### [id number] ## ## [facility],[address] [facility] [facility] [id number] CMP with eGFR on 12-23-2022 AGE 52 years Normal [facility] Comment on above: Performed By: #### [id number] ## ## [facility],[address] [facility] [address] Albumin [Mass/Vol] 3.0 g/dL Low 3.4 - 5.0 [facility] Comment on above: Performed By: #### [id number] ## ## [facility] [facility] [address]017 Albumin/Globulin [Mass ratio] 0.9 {ratio} Normal 0.9 - 1.6 [facility] Comment on above: Performed By: #### [id number] ## ## [facility] [facility] [address] ALK PHOS 129 U/L High 46 - 116 [facility] Comment on above: Performed By: #### [id number] ## ## [facility],[address] [facility] [address]39 ALT [Catalytic activity/Vol] 28 U/L Normal 14 - 59 [facility] Comment on above: Performed By: #### [id number] ## ## [facility],[address] [facility] 23757 Anion gap [Moles/Vol] 10 mmol/L Normal 10 - 20 [facility] Comment on above: Performed By: #### [id number] ## ## [facility],[address] [facility] 6[address]38 AST [Catalytic activity/Vol] 41 U/L High 13 - 39 [facility] Comment on above: Performed By: #### [id number] ## ## [facility],[address] [facility] 725[address] B/C RATIO 20 ratio Normal 0 - 30 [facility] Comment on above: Performed By: #### [id number] ## ## [facility],[address] [facility] [address]758 Bilirubin [Mass/Vol] 1.2 mg/dL High 0.2 - 1.0 [facility] Comment on above: Performed By: #### [id number] ## ## [facility],[address] [facility] 9[address] Calcium [Mass/Vol] 9.4 mg/dL Normal 8.5 - 10.1 [facility] Comment on above: Performed By: #### [id number] ## ## [facility] [facility] 5[address]19 Chloride [Moles/Vol] 111 mmol/L High 98 - 107 [facility] Comment on above: Performed By: #### [id number] ## ## [facility] [facility] 39[address] CMP with eGFR Normal [facility] Comment on above: Result Comment: COMPREHENSIV E METABOLIC PANEL Performed By: #### [id number] ## ## [facility] [facility] 83524 CO2 [Moles/Vol] 26.5 mmol/L Normal 21.0 - 32.0 [facility] Comment on above: Performed By: #### [id number] ## ## [facility] [facility] [address]33 Creatinine [Mass/Vol] 0.98 mg/dL Normal 0.55 - 1.02 [facility] Comment on above: Performed By: #### [id number] ## ## [facility] [address] eGFR 59 ML/MINUTE Low 60 - 999 [facility] Comment on above: Performed By: #### [id number] ## ## [facility],[address] [place] [address] GFR/1.73 sq M.predicted mL/min/{1.73_m2} Normal 60 - 999 [facility] non-blacks MDRD Hospit al (S/P/Bld) [Vol rate/Area] Comment on above: Result Comment: ACCORDING TO THE NATIONAL KIDNEY DISEASE EDUCATION PROGRAM(NKDE), A NORMAL eGFR IS A VALUE GREATER THAN OR E QUAL TO 60 ML/MIN/1.73 SQ METERS. CHRONIC KIDNEY DISEASE: <60m L/MIN/1.73 SQ METERS KIDNEY FAILURE: <15mL/MIN/1. 73 SQ METERS THIS TEST SHOULD ONLY BE USE D FOR PATIENTS 18 YEARS OF AGE AND OLDER. Performed By: #### [id number] ## ## [facility],[address] [place] [address] Globulin (S) [Mass/Vol] 3.3 g/dL Normal 1.5 - 3.8 [facility] Comment on above: Performed By: #### [id number] ## ## [facility],[address] [place] [address]03 Glucose [Mass/Vol] 128 mg/dL High 74 - 106 [facility] Comment on above: Performed By: #### [id number] ## ## [facility],[address] [place] [address]7915 Potassium [Moles/Vol] 4.0 mmol/L Normal 3.5 - 5.1 [facility] Comment on above: Performed By: #### [id number] ## ## [facility],[address] [place] [address]250 Protein [Mass/Vol] 6.3 g/dL Low 6.4 - 8.2 [facility] Comment on above: Performed By: #### [id number] ## ## [facility],[address] [place] [address] 65365 Sodium [Moles/Vol] 143 mmol/L Normal 136 - 145 [facility] Comment on above: Performed By: #### [id number] ## ## [facility],[address] [place], [place] [id number] Urea nitrogen [Mass/Vol] 20 mg/dL High 7 - 18 [facility] Comment on above: Performed By: #### [id number] ## ## [facility],[address] [place], [place] [id number] CORONAVIRUS PCR - TOUGALOO on 3 SARS-CoV-2 (COVID-19) RNA Negative Normal NORMAL: NEGATIV E [facility]probe Ql (Un[facility] spec[facility] Comment on above: Performed By: #### [id number] ## ## [facility],[address] [place] [address] SEND TO IC? YES Normal [facility] Comment on above: Result Comment: RESULTS FAXE D TO INFECTION CONTROL. SARS-CoV-2 THIS TEST IS BEING USED UNDE R THE FDA EUA PROCEDURE. THIS ASSAY HAS BEEN VALIDATED IN THE [facility] FOR USE WITH NASOPHARYNGEAL SPECIMENS IN [facility]. INTERPRETIVE DATA LABORATORY TEST RESULTS SHOU LD ALWAYS BE CONSIDERED IN THE CONTEXT OF CLINICAL OBSERVATIONS AND EPIDEMIOLOG ICAL DATA IN MAKING FINAL DIAGNOSIS AND PATIENT MANAGEMENT DECISIONS. PATIEN T MANAGEMENT SHOULD FOLLOW CURRENT CDC GUIDELINES. A POSITIVE TEST RESULT FOR C OVID-19 INDICATES THAT RNA FROM SARS-CoV-2 WAS DETECTED, AND THE PATIENT IS INFECTED WITH THE VIRUS AND PRESUMED TO BE CONTAGIOUS. A NEGATIVE TEST RESULT FOR T HIS TEST MEANS THAT SARS-CoV-2 RNA WAS NOT PRESENT IN THE SPECIMEN ABOVE THE LI CRISTY OF DETECTION. HOWEVER, A NEGATVIE RESULT DOES NOT RULE OUT COVID-19 AND SH OULD NOT BE USED THE SOLE BASIS FOR TREATMENT OR PATIENT MANAGEMENT DECISIONS . A NEGATIVE RESULT DOES NOT EXCLUDE THE POSSIBILITY OF COVID-19. WHEN DIAGNOSTIC TESTING IS N EGATIVE, THE POSSIBLILTY OF A FALSE NEGATIVE RESULT SHOULD BE CONSIDERED IN THE CONTEXT OF A PATIENT'S RECENT EXPOSURES AND THE PRESENCE OF CLINICAL SIGNS A ND SYMPTOMS CONSISTENT WITH COVID-19. THE POSSIBILITY OF A FALSE NEGAT COREEN RESULT SHOULD ESPECIALLY BE CONSIDERED IF THE PATIENT'S RECENT EXPOSURES O R CLINICAL PRESENTATION INDICATE THAT COVID-19 IS LIKELY, AND DIAGNOSTIC TESTS FOR OTHER CAUSES OF ILLNESS (e.g., OTHER RESPIRATORY ILLNESS) ARE NEG ATIVE. IF COVID-19 IS STILL SUSPECTED BASED ON EXPOSURE HISTORY TOGETHER WI TH OTHER CLINICAL FINDINGS, RE-TESTED SHOULD BE CONSIDERED BY [employer] IN CONSULTATION WITH PUBLIC HEALTH AUTHORITIES. Performed By: #### [id number] ## ## [facility],[address] [place], [place] [address] DRUG SCREEN URINE MEDIC on 12-23-2022 AMPHETAMINES Negative [facility] Comment on above: Performed By: #### [id number] ## ## [facility],[address] [place], [place] [address] B-DIAZEPINES Negative [facility] Comment on above: Performed By: #### [id number] ## ## [facility],[address] [place], [place] [address] BARBITURATES Negative [facility] Comment on above: Performed By: #### [id number] ## ## [facility],[address] [place], [place] [address] COCAINE Negative [facility] Comment on above: Performed By: #### [id number] ## ## [facility],[address] [place], [place] [id number] DRUG SCREEN URINE MEDIC Normal [facility] Comment on above: Result Comment: DRUG SCREEN - URINE Performed By: #### [id number] ## ## [facility],[address] [place] [address] 83243 METHADONE Negative [facility] Comment on above: Performed By: #### [id number] ## ## [facility],[address] [place] [address] 26442 OPIATES Negative [facility] Comment on above: Performed By: #### [id number] ## ## [facility],[address] [place] [address]274 PCP Negative Normal [facility] Comment on above: Performed By: #### [id number] ## ## [facility],[address] [place] [address] 54424 THC Negative Normal [facility] Comment on above: Result Comment: PATIENTS REC EIVING PROTON PUMP INHIBITORS MAY DEMONSTRATE FALSE POSITIVE THC/CANNABINOID RESULTS. AN ALTERNATIVE CONFIRMATORY METHOD SHOULD BE CONSIDERED TO VERIFY POSITIVE RESULTS. Performed By: #### [id number] ## ## [facility],[address] [place] [address] URINALYSIS on 12-23-2022 Amorphous 2+ Normal [facility] Comment on above: Performed By: #### [id number] ## ##[facility],[address] [place] [address] 86830 Bacteria 3+ Normal [facility] Comment on above: Performed By: #### [id number] ## ##[facility],[address] [place] [address] 30680 Bilirubin Ql (U) Negative Normal NORMAL: NEGATIVE [facility] Comment on above: Performed By: #### [id number] ## ##[facility],[address] [place] [address] 67558 Casts NONE Normal [facility] Comment on above: Performed By: #### [id number] ## ##[facility],[address] [place] [address] 90612 Clarity (U) very cloudy Normal NORMAL: CLEAR [facility] Comment on above: Performed By: #### [id number] ## ##[facility],[address] [place] [address] 79581 Color (U) ART Normal NORMAL: YELLOW [facility] Comment on above: Performed By: #### [id number] ## ##[facility],[address] [place] [address] 45424 Crystals LM Nom (Urine sed) NONE Normal [facility] Comment on above: Performed By: #### [id number] ## ##[facility],[address] [place] [address] 42396 Epi Cells MANY Normal [facility] Comment on above: Performed By: #### [id number] ## ##[facility],[address] [place] [address] 54140 Glucose Ql (U) NORM Normal NORMAL: NORMAL [facility] Comment on above: Performed By: #### [id number] ## ##[facility],[address] [place] [address] 96014 Hemoglobin Ql (U) 50 Abnormal NORMAL: NEGATIVE [facility] Comment on above: Performed By: #### [id number] ## ##[facility],[address] [place] [address] 15158 Ketone 5 Abnormal NORMAL: NEGATIVE [facility] Comment on above: Performed By: #### [id number] ## ##[facility],[address] [place] [address] 41126 Leukocytes 25 Abnormal NORMAL: NEGATIVE [facility] Comment on above: Performed By: #### [id number] ## ##[facility],[address] [place] [address] 40464 Mucous 2+ Normal [facility] Comment on above: Performed By: #### [id number] ## ##[facility],[address] [place] [address] 25019 Nitrite Ql (U) Negative Normal NORMAL: NEGATIVE [facility] Comment on above: Performed By: #### [id number] ## ##[facility],[address] [place] [address] 71556 pH (U) 6 [pH] Normal NORMAL: 5.0-8.0 [facility] Comment on above: Performed By: #### [id number] ## ##[facility],[address] [place] [address] 81612 Protein Ql (U) 15 Abnormal NORMAL: NEGATIVE [facility] Comment on above: Performed By: #### [id number] ## ##[facility],[address] [place] [address] Rbc 10-15 Normal 0-3/hpf [facility] Comment on above: Performed By: #### [id number] ## ##[facility],[address] [place] [address] Sp [place] 1.025 Normal NORMAL: 1.010-1.030 [facility] Comment on above: Performed By: #### [id number] ## ##[facility],[address] [place] [address] Specimen Type UNSPECIFIED Normal [facility] Comment on above: Performed By: #### [id number] ## ##[facility],[address] [place] [address] Urinalysis dipstick W Reflex SEE BELOW Normal [facility] Microscopic panel (U) Comment on above: Result Comment: MICROSCOPIC Performed By: #### [id number] ## ##[facility],[address] [place] [address] Urobilinog 8 Abnormal NORMAL: NORMAL [facility] Comment on above: Performed By: #### [id number] ## ##[facility],[address] [place] [address] Wbc 6-10 Normal 0-5/hpf [facility] Comment on above: Performed By: #### [id number] ## ##[facility],[address] [place] [address] Yeast NONE Normal [facility] Comment on above: Performed By: #### [id number] ## ##[facility],[address] [place] [address] ACETAMINOPHEN on 12-22-2022 ACETAMINOPHEN <0.0 Low 10.0 - 30.0 [facility] Comment on above: Performed By: #### [id number] ## ## [facility],[address] [place] [address] ALCOHOL-BLOOD MEDICAL on 12-22-2022 Ethanol [Mass/Vol] mg/dL Normal 0 - 50 [facility] Comment on above: Performed By: #### [id number] ## ## [facility],[address] [place] [address] 82899 AMMONIA on 12-22-2022 Ammonia (P) [Moles/Vol] 94.0 umol/L High 11.0 - 32.0 [facility] Comment on above: Performed By: #### [id number] ## ## [facility],[address] [facility] [address] ARTERIAL BLOOD GAS ANALYSIS on 12-22-19 23 ALLENS TEST + Normal [facility] Comment on above: Result Comment: { TIME CHACON D 1810 Performed By: #### [id number] ## ## [facility],[address] [place] [address] ARTERIAL BLOOD GAS ANALYSIS Normal [facility] Comment on above: Result Comment: ARTERIAL BLO OD GAS Performed By: #### [id number] ## ## [facility],[address] [place] [address] 85714 BE 0 Normal -2 - 3 [facility] Comment on above: Performed By: #### [id number] ## ## [facility],[address] [facility] [address] HCO3 (Bld) [Moles/Vol] 25 mmol/L High 20 - 24 [facility] Comment on above: Performed By: #### [id number] ## ## [facility],[address] [facility] 02199 Heart rate 106 /min Normal [facility] Comment on above: Performed By: #### [id number] ## ## [facility],[address] [place] [address] 81255 MODALITY . Normal [facility] Comment on above: Performed By: #### [id number] ## ## [facility] [facility] [address]609 PCO2 42 mm Hg Normal 35 - 45 [facility] Comment on above: Performed By: #### [id number] ## ## [facility],981 [facility] [address] pH (Bld) 7.39 [pH] Normal 7.35 - 7.45 [facility] Comment on above: Performed By: #### [id number] ## ## [facility] [facility] 16349 PO2 66 mm Hg Low 80 - 105 [facility] Comment on above: Performed By: #### [id number] ## ## [facility] [facility] 960[address] SAMPLE SITE LT RAD Normal [facility] Comment on above: Performed By: #### [id number] ## ## [facility] [facility] [address] SaO2 92 Low 95 - 98 [facility] Comment on above: Result Comment: TIME RESULT CALLED _1809 12/22/[id number].[id number]. { FIO2/LPM RA Performed By: #### [id number] ## ## [facility],[address] [facility] 78071 TOTAL RR 20 Normal [facility] Comment on above: Performed By: #### [id number] ## ## [facility] [facility] 54451 VENT N/A Normal [facility] Comment on above: Performed By: #### [id number] ## ## [facility] [facility] 8[address]78 C-REACTIVE PROTEIN on 12-22-2022 CRP [Mass/Vol] mg/L Normal 0.00 - 0.90 [facility] Comment on above: Performed By: #### [id number] ## ## [facility],[address] [place] [address] CBC + DIFF on 12-22-2022 Baso # 0.00 x10EE3/UL Normal 0.00 - 0.10 [facility] Comment on above: Performed By: #### [id number] ## ##[facility],[address] [place] [address] Basophils/100 WBC (Bld) 1.0 % Normal 0.0 - 2.0 [facility] Comment on above: Performed By: #### [id number] ## ##[place] [address] CBC + DIFF Normal [facility] Comment on above: Result Comment: CBC-COMPLETE BLOOD COUNT Performed By: #### [id number] ## ##[place] [address] EO # 0.30 x10EE3/UL Normal 0.00 - 0.50 [facility] Comment on above: Performed By: #### [id number] ## ##[place] [address] Eosinophils/100 WBC (Bld) 5.7 % Normal 0.0 - 7.0 [facility] Comment on above: Performed By: #### [id number] ## ##[place] [address] Erythrocyte distribution width 17.3 % High 12.0 - 15. 6 [facility] (RBC) [Ratio] [facility] Comment on above: Performed By: #### [id number] ## ##[place] [address] Hematocrit (Bld) [Volume 46.2 % High 34.0 - 46.0 [facility]] [facility] Comment on above: Performed By: #### [id number] ## ##[place] [address] Hemoglobin (Bld) [Mass/Vol] 15.2 g/dL Normal 12.0 - 16.0 [facility] Comment on above: Performed By: #### [id number] ## ##[facility],[address] [place] [address] Lymph # 1.20 x10EE3/UL Normal 0.80 - 2.80 [facility] Comment on above: Performed By: #### [id number] ## ##[facility],[address] [place] [address] Lymphocytes/100 WBC (Bld) 24.3 % Normal 20.0 - 45.0 [facility] Comment on above: Performed By: #### [id number] ## ##[facility],[address] [place] [address] MANUAL DIFF REVIEWED Normal [facility] Comment on above: Performed By: #### [id number] ## ##[facility],[address] [place] [address] MCH (RBC) [Entitic mass] 30 pg Normal 27 - 33 [facility] Comment on above: Performed By: #### [id number] ## ##[facility],[address] [place] [address] MCHC 33 X10 3 Normal 32 - 36 [facility] Comment on above: Performed By: #### [id number] ## ##[facility],[address] [place] [address] MCV (RBC) [Entitic vol] 91 fL Normal 80 - 99 [facility] Comment on above: Performed By: #### [id number] ## ##[place] [address] Sequoyah # 0.60 x10EE3/UL Normal 0.20 - 1.00 [facility] Comment on above: Performed By: #### [id number] ## ##[place] [address] MONOS % 11.9 % High 0.0 - 10.0 [facility] Comment on above: Performed By: #### [id number] ## ##[facility],[address] [place] [address] 85954 Morphology Giovanni (Bld) [Interp] SEE BELOW Normal [facility] Comment on above: Performed By: #### [id number] ## ##[facility],[address] [place] [address] 42535 Neut # 2.90 x10EE3/UL Normal 1.50 - 7.10 [facility] Comment on above: Performed By: #### [id number] ## ##[facility],[address] [place] [address] 61590 Neutrophils/100 WBC (Bld) 57.1 % Normal 46.0 - 76.0 [facility] Comment on above: Performed By: #### [id number] ## ##[facility],[address] [place] [address] 25092 PLATELET 99 x10EE3/UL Low 150 - 450 [facility] Comment on above: Performed By: #### [id number] ## ##[facility],[address] [place] [address] 59118 Platelet mean volume (Bld) 9.0 fL Normal 6.6 - 10.5 [facility] Comment on above: Result Comment: AUTOMATED DI FFERENTIAL Performed By: #### [id number] ## ##[facility],[address] [place] [address] 24693 PLT EST DECREASED Normal [facility] Comment on above: Performed By: #### [id number] ## ##[facility],[address] [place] [address] 70559 RBC 5.09 x 10EE6/UL Normal 4.10 - 5.30 [facility] Comment on above: Performed By: #### [id number] ## ##[facility],[address] [place] [address] 37205 WBC 5.1 x 10EE3/UL Normal 4.5 - 10.8 [facility] Comment on above: Performed By: #### [id number] ## ##[facility],[address] [place] [address] 64524 Other RARE GIANT PLATELET Normal [facility] Comment on above: Result Comment: {CD] Performed By: #### [id number] ## ##[facility],[address] [place] [address] 60099 CMP with eGFR on 12-22-2022 AGE 52 years Normal [facility] Comment on above: Performed By: #### [id number] ## ## [facility],[address] [place] [address] 13859 Albumin [Mass/Vol] 3.5 g/dL Normal 3.4 - 5.0 [facility] Comment on above: Performed By: #### [id number] ## ## [facility],[address] [place], [place] [id number] Albumin/Globulin [Mass ratio] 0.9 {ratio} Normal 0.9 - 1.6 [facility] Comment on above: Performed By: #### [id number] ## ## [facility],[address] [place] [address] 23539 ALK PHOS 167 U/L High 46 - 116 [facility] Comment on above: Performed By: #### [id number] ## ## [facility],[address] [place] [address] 52683 ALT [Catalytic activity/Vol] 27 U/L Normal 14 - 59 [facility] Comment on above: Performed By: #### [id number] ## ## [facility],[address] [place] [address] 05948 Anion gap [Moles/Vol] 12 mmol/L Normal 10 - 20 [facility] Comment on above: Performed By: #### [id number] ## ## [facility],[address] [facility] [address] AST [Catalytic activity/Vol] 43 U/L High 13 - 39 [facility] Comment on above: Performed By: #### [id number] ## ## [facility] [facility] [address] B/C RATIO 17 ratio Normal 0 - 30 [facility] Comment on above: Performed By: #### [id number] ## ## [facility] [facility] [address]11 Bilirubin [Mass/Vol] 1.2 mg/dL High 0.2 - 1.0 [facility] Comment on above: Performed By: #### [id number] ## ## [facility] [facility] [address]98 Calcium [Mass/Vol] 9.7 mg/dL Normal 8.5 - 10.1 [facility] Comment on above: Performed By: #### [id number] ## ## [facility] [facility] 22002 Chloride [Moles/Vol] 110 mmol/L High 98 - 107 [facility] Comment on above: Performed By: #### [id number] ## ## [facility] [facility] 70231 CMP with eGFR Normal [facility] Comment on above: Result Comment: COMPREHENSIV E METABOLIC PANEL Performed By: #### [id number] ## ## [facility] [facility] 33336 CO2 [Moles/Vol] 27.9 mmol/L Normal 21.0 - 32.0 [facility] Comment on above: Performed By: #### [id number] ## ## [facility] [address] Creatinine [Mass/Vol] 0.84 mg/dL Normal 0.55 - 1.02 [facility] Comment on above: Performed By: #### [id number] ## ## [facility],[address] [facility] [address]402 GFR/1.73 sq M.predicted mL/min/{1.73_m2} Normal 60 - 999 [facility] non-blacks MDRD Hospit al (S/P/Bld) [Vol rate/Area] Comment on above: Performed By: #### [id number] ## ## [facility],[address] [place] [address]375 Result Comment: ACCORDING TO THE NATIONAL KIDNEY DISEASE EDUCATION PROGRAM(NKDE), A NORMAL eGFR IS A VALUE GREATER THAN OR E QUAL TO 60 ML/MIN/1.73 SQ METERS. CHRONIC KIDNEY DISEASE: <60m L/MIN/1.73 SQ METERS KIDNEY FAILURE: <15mL/MIN/1. 73 SQ METERS THIS TEST SHOULD ONLY BE USE D FOR PATIENTS 18 YEARS OF AGE AND OLDER. Globulin (S) [Mass/Vol] 3.9 g/dL High 1.5 - 3.8 [facility] Comment on above: Performed By: #### [id number] ## ## [facility],[address] [place] [address] 63152 Glucose [Mass/Vol] 104 mg/dL Normal 74 - 106 [facility] Comment on above: Performed By: #### [id number] ## ## [facility],[address] [place] [address] 90713 Potassium [Moles/Vol] 4.5 mmol/L Normal 3.5 - 5.1 [facility] Comment on above: Performed By: #### [id number] ## ## [facility],[address] [place] [address] 42797 Protein [Mass/Vol] 7.4 g/dL Normal 6.4 - 8.2 [facility] Comment on above: Performed By: #### [id number] ## ## [facility],[address] [place] [address] 81245 Sodium [Moles/Vol] 145 mmol/L Normal 136 - 145 [facility] Comment on above: Performed By: #### [id number] ## ## [facility],[address] [place] [address] 36021 Urea nitrogen [Mass/Vol] 14 mg/dL Normal 7 - 18 [facility] Comment on above: Performed By: #### [id number] ## ## [facility],[address] [place] [address] 78176 CPK on 12-22-2022 CPK 184 U/L Normal 26 - 192 [facility] Comment on above: Performed By: #### [id number] ## ## [facility],[address] [place] [address] BRAIN W/O CONTRAST on 12-22-2022 CT BRAIN W/O CONTRAST [facility] Normal [place] [address] Patient: EVER MCKEON Phone#: : 1970 Age: 52 Gender: F Pt. Type: ER Account: [id number] Location: [facility] Ordering: PAULO GARCIA Exam Date: 12/22/2022/19:36 Family Phys: Charge Code: [id number] Physician: [facility] Order #: [id number] Dose#: [id number] PROCEDURE: CT BRAIN WITHOUT CONTRAST COMPARISON: [facility], CT, BRAIN W/O CON, 11/17, 16:21. INDICATIONS: Altered mental status. TECHNIQUE: CT images were obtained without contrast de saman. All CT scans at this facilit y use dose modulation, iterative reconstruction, and/or weight based dosing when appropriate to reduce radiati on dose to as low as reasonably achievable. IV CONTRAST: No IV contrast used,0ml TOTAL DOSE: 52.30 CTDIvol(mGy) FINDINGS: CEREBRUM: No edema, hemorrha ge, mass, acute infarction, or inappropriate atrophy. CEREBELLUM: No edema, hemorr mar, mass, acute infarction, or inappropriate atrophy. BRAINSTEM: No edema, hemorrh age, mass, acute infarction, or inappropriate atrophy. CSF SPACES: Ventricles, cist erns, and sulci are appropriate for age. No hydrocephalus, subarachnoid hemorrhage, or mass. SKULL: No mass or other significant visible lesion. SINUSES: Limited views demonstrate no si gnificant mucosal thickening or fluid. ORBITS: Limited views are unremarkable. OTHER: Negative. CONCLUSION: 1. There is no evidence of acute intracranial abnormal ity. Dictated by: Danette Welsh MD on 12/22/2022 at 19:56 Approved by: Danette Welsh MD on 12/22/2022 at 19:57 CULTURE BLOOD [DIANA] on 12-22-2022 Microscopic CULTURE BLOOD [DIANA] Normal [facility] examination of blood, _BLOOD CULTURE_ [facility] culture [facility] FOR SCANNED REPO RT 12/[email or web address] Comment on above: Performed By: #### [id number] ## ## [facility],[address] [place] [address] 20138 Microscopic CULTURE BLOOD [DIANA] Normal [facility] examination of blood, _BLOOD CULTURE_ [facility] culture [facility] AND ATTACHMENTS FOR SCANNED REPO RT 12/[email or web address] Comment on above: Performed By: #### [id number] ## ## [facility],[address] [place] [address] 13689 LACTATE on 12-22-2022 Lactate [Moles/Vol] 1.3 mmol/L Normal 0.4 - 2.0 [facility] Comment on above: Performed By: #### [id number] ## ## [address] [address] MAGNESIUM on 12-22-2022 Magnesium [Mass/Vol] 2.4 mg/dL Normal 1.8 - 2.4 [facility] Comment on above: Performed By: #### [id number] ## ## [facility],[address] [place] [address] 72300 NT-proBNP on 12-22-2022 Natriuretic peptide B (Bld) 44 pg/mL Normal 0 - 125 [facility] [[facility]] [facility] Comment on above: Performed By: #### [id number] ## ## [facility],[address] [place] [address] PROTHROMBIN TIME AND INR on 12-22-2022 INR Coag (PPP) [Relative time] 1.1 {INR} Normal 0.8 - 1.2 [facility] Comment on above: Result Comment: THE HEMOS IL THROMBOPLASTIN REAGENT USED IN THE PROTHROMBIN TIME TEST INTERACTS WITH THE DRUG CUBICIN (DAPTOMYCIN) AND WILL RESULT IN FALSELY ELEVATED PT / INR RESULTS INR INTERPRETATION INR INDICATION PREVENTION AND TREATMENT OF THROMBOEMBOLISM ASSOCIATED WITH: 2.0 - 3.0 ATRIAL FIBRILLATIO N, BIOPROSTHETIC HEART VALVES, PULMONARY EMBOLISM, VENOUS THROMBOSIS, SYSTEMIC EMBOLISM POST MYOCARDIAL INFARCTION 2.5 - 3.5 [facility] Performed By: #### [id number] ## ##[facility],[address] [place] [address] PROTHROMBIN TIME AND INR Normal [facility] Comment on above: Result Comment: PROTHROMBIN TIME AND INR Performed By: #### [id number] ## ##[place] [address] PT-COUMADIN 13.3 sec Normal 9.3 - 14.1 [facility] Comment on above: Performed By: #### [id number] ## ##[place] [address] SEDRATE on 12-22-2022 SEDRATE 3 mm/hr Normal 0 - 30 [facility] Comment on above: Performed By: #### [id number] ## ##[place] [address]1284 TROPONIN I, HIGH SENSITIVITY on 023 HS TROPONIN 7.4 pg/mL Normal 0.0 - 51.4 [facility] Comment on above: Performed By: #### [id number] ## ## [facility],[address] [place] [address] 11242 HS TROPONIN 6.5 pg/mL Normal 0.0 - 51.4 [facility] Comment on above: Performed By: #### [id number] ## ## [facility],[address] [place] [address]256 TSH on 12-22-2022 TSH Qn 2.93 m[IU]/L Normal 0.35 - 3.74 [facility] Comment on above: Performed By: #### [id number] ## ## [facility],[address] [place] [address]99 EMERGENCY REPORT on 11-21-2022 EMERGENCY REPORT [facility] Normal [facility] EMERGENCY ROOM REPORT NAME ACCOUNT SEX AGE ADMIT DISCHARGE PT MED. RECORD# NUMBER DATE DATE TYPE LINDA, [id number] F 52 11/17/22 1 [facility] [id number] ROOM: [facility] DATE OF : 1970 DICTATING PHYSICIAN: Eyal Franco ADDENDUM: DIAGNOSTIC DATA: CBC revealed a white count of 4 .3, hemoglobin 13, hematocrit 43, and platelet count 95,00 0. There is no significant shift on the differential. Chemistries revealed a sodiu m of 147, potassium 4.8, chloride 111, bicarbonate 27, BUN is 11, creatinine 0.64. Glucose is 73. AST is 58, ALT 38, alkaline phosphatase 173 and total bilirubin 1.0. Her ammonia was 99. Her lacta te is normal at 0.7. Influenza screening is negative for flu A and flu B. COVID-19 PCR is negative for coronavirus. Urine drug s creen is negative. Urinalysis was negative for leukocyte esterase, negative for nitrites, 1 to 5 white cells per high-powered field, 2+ b acteria, and a few epithelial cells. No evidence of acute UTI. DIAGNOSES: 1. Hepatic encephalopathy. 2. Hyperammonemia. 3. Cirrhosis. PLAN/DISPOSITION: I discussed the case with Dr. Melgar. Dr. Melgar has accepted the patient for admission. I did discuss the case with the patient's brother. The patient's brother is Vaibhav Mckeon. His phone number is . I did talk with him. He states that she lives at home with him. He works and he cannot keep track of her med ications. She has been noncompliant with her medica tions. He says he is having a tough time taking care of her and working a full job and trying to keep the house. Costa morrison see orders. Dictated By: Eyal Franco DO 11/17/22 19:25 JOB #: [id number] Transcribed By: am 11/18/22 12:09 Page 1 of 2 EVER MCKEON Emergency Room Report LINDA EVER : 1970 Electronically signed by: Dr. Eyal Franco DO 11/21/22 07:12 Page 2 of 2 EVER MCKEON Emergency Room Report EMERGENCY REPORT [facility] Normal [facility] EMERGENCY ROOM REPORT NAME ACCOUNT SEX AGE ADMIT DISCHARGE PT MED. RECORD# NUMBER DATE DATE TYPE LINDA [id number] F 52 11/17/22 1 EVER [id number] ROOM: [facility] DATE OF : 1970 DICTATING PHYSICIAN: Eyal Franco HISTORY OF PRESENT ILLNESS: The patient is brought in with altered mental status. This is a 52-year-old female with a history of cirrhosis and hyperammonemia and confusion that is worse over her baseline at home. She was sent in for increased confusion. On arrival here, she is alert and oriented to name only. She is unable to tell me her birthday. She is unab le to tell me the month or where she is. There has been no reported nausea, vomiting, o r diarrhea. There is no family here to talk to at this point in time. I did review old charts. PAST MEDICAL HISTORY: The patient has a past medical history of depression and anxiety, IBS, cirrhosis, ascites, hepatic encephalopat hy, and hypertension. PAST SURGICAL HISTORY: Unkno wn, but no reported recent surgeries. Per old chart review, she had a previous c holecystectomy, , tubal ligation, and knee replacement. ALLERGIES: Unknown. SOCIAL HISTORY: No tobacco u se. Uncertain whether she has had any recent alcohol use. She told me no, but I a m not sure how reliable she is. She has no reported recreational drug use. REVIEW OF SYSTEMS: A complet e review of systems cannot be obtained at this time. PHYSICAL EXAMINATION: VITAL SIGNS: Revealed a temperat ure of 97.4, pulse 59, respirations 16, blood press ure 131/82, and pulse oximetry 94% on room air. HEENT: Head is normocephalic and at raumatic. The patient is alert and oriented x1. She does follow some commands. She is disoriented to place, sherrie e, or purpose. Mucous membranes are pink, moist, a nd grossly intact. NECK: Neck is supple. There is no nuchal rigidity. HEART: Regu lar and bradycardic. No murmur, click, gallop, or rub. LUNGS: Lungs are essentially clear. No nicole rales, rhonchi, or wheeze. ABDOMEN: Obese and soft, questionable fluid wave. No rebound, rigidity, or guarding. No acute peritoneal signs. EXTREMITIE S: Motor and sensory are grossly intact in the upper and lower extremities. She has g eneralized weakness. She had no significant pitting edema of the lower extremities. No unusual rashes. No petech iae or purpura. DIAGNOSTIC DATA: EKG at 1600 hours reveals sinus bradycardia, rate 56 beats per Page 1 of 2 [facility] Emergency Room Report EVER MCKEON : 1970 minute. [place] is normal. GA, QRS, and QT intervals are grossly normal. [place] is normal. There is no acute ST-T change. No evidence of acute is chemia. No STEMI. CBC revealed a white count o f 4.3, hemoglobin 13.8, hematocrit 43.3, and platelet count 95,000. There is no shift on the different ial. INR is 1.1. PTT is 29.8. Sodium is 147, potassium 4.8 , chloride 111, bicarbonate 27.7, BUN 11, creatinine 0.64. Glucose is 73. Total bilirubin is 1.0. AST is 58, ALT 38, alkaline ph osphatase 173. Lactate is normal at 0.7. Am monia level is 99.9. High-sensitivity troponin is normal at 7.9. Influenza screening is negative. CT of the brain shows no kingsley reciable acute intracranial abnormality or interval change within the limits of the study. Chest x-ray single view study shows cardiomegaly with increased pulmonary vascularity, correlate for possible CHF. EMERGENCY DEPARTMENT COURSE AND TREATMENT: We will sta rt the patient on some lactulose. She is cl early confused. I have had no opportunity to speak with family. There is no family h ere. We will attempt to see if we have a phone number to call them. DIAGNOSES: 1. Hyperammonemia. 2. Hepatic encephalopathy. PLAN/DISPOSITION: I will dic painter an addendum for disposition once the remaining studies are back. Dictated By: Eyal Franco, 11/17/22 17:49 JOB #: [id number] Transcribed By: am 11/18/22 11:46 Electronically signed by: Dr. Eyal Franco, 11/21/22 07:12 Page 2 of 2 EVER MCKEON Emergency Room Report CBC + DIFF on 11-18-2022 ANISO 2+ Normal [facility] Comment on above: Performed By: #### [id number] ## ## [place] [address] Baso # 0.00 x10EE3/UL Normal 0.00 - 0.10 [facility] Comment on above: Performed By: #### [id number] ## ## [place] [address] Basophils/100 WBC (Bld) 1.0 % Normal 0.0 - 2.0 [facility] Comment on above: Performed By: #### [id number] ## ## [facility],[address] [place] [address] CBC + DIFF Normal [facility] Comment on above: Result Comment: CBC-COMPLETE BLOOD COUNT Performed By: #### [id number] ## ## [place] [address] EO # 0.30 x10EE3/UL Normal 0.00 - 0.50 [facility] Comment on above: Performed By: #### [id number] ## ## [place] [address] Eosinophils/100 WBC (Bld) 6.8 % Normal 0.0 - 7.0 [facility] Comment on above: Performed By: #### [id number] ## ## [facility],[address] [place], [place] [id number] Erythrocyte distribution width 25.2 % High 12.0 - 15. 6 [facility] (RBC) [Ratio] [facility] Comment on above: Performed By: #### [id number] ## ## [facility],[address] [place] [address] Hematocrit (Bld) [Volume 36.0 % Normal 34.0 - 46.0 [facility] Comment on above: Performed By: #### [id number] ## ## [facility],[address] [place], [place] [id number] Hemoglobin (Bld) [Mass/Vol] 11.8 g/dL Low 12.0 - 16.0 [facility] Comment on above: Performed By: #### [id number] ## ## [facility],[address] [place] [address] HYPOCHROM 1+ Normal [facility] Comment on above: Performed By: #### [id number] ## ## [facility],[address] [place], [place] [id number] Lymph # 1.20 x10EE3/UL Normal 0.80 - 2.80 [facility] Comment on above: Performed By: #### [id number] ## ## [facility],[address] [place] [address] 93567 Lymphocytes/100 WBC (Bld) 26.2 % Normal 20.0 - 45.0 [facility] Comment on above: Performed By: #### [id number] ## ## [facility],[address] [place] [address] MANUAL DIFF N/A Normal [facility] Comment on above: Performed By: #### [id number] ## ## [facility] [facility] [address]86 MCH (RBC) [Entitic mass] 28 pg Normal 27 - 33 [facility] Comment on above: Performed By: #### [id number] ## ## [facility],[address] [facility] [address] MCHC 33 X10 3 Normal 32 - 36 [facility] Comment on above: Performed By: #### [id number] ## ## [facility],[address] [place] [address] 45164 MCV (RBC) [Entitic vol] 85 fL Normal 80 - 99 [facility] Comment on above: Performed By: #### [id number] ## ## [facility],[address] [place] [address] MICROCYTES 2+ Normal [facility] Comment on above: Performed By: #### [id number] ## ## [facility],[address] [place] [address]40 Sequoyah # 0.60 x10EE3/UL Normal 0.20 - 1.00 [facility] Comment on above: Performed By: #### [id number] ## ## [facility],[address] [place] [address] 37277 MONOS % 13.1 % High 0.0 - 10.0 [facility] Comment on above: Performed By: #### [id number] ## ## [facility],[address] [place] [address] Morphology Giovanni (Bld) [Interp] SEE BELOW Normal [facility] Comment on above: Performed By: #### [id number] ## ## [facility],[address] [facility] [address] Neut # 2.40 x10EE3/UL Normal 1.50 - 7.10 [facility] Comment on above: Performed By: #### [id number] ## ## [facility],[address] [place] [address] 44714 Neutrophils/100 WBC (Bld) 52.9 % Normal 46.0 - 76.0 [facility] Comment on above: Performed By: #### [id number] ## ## [facility],[address] [place] [address] 14822 PLATELET 87 x10EE3/UL Low 150 - 450 [facility] Comment on above: Performed By: #### [id number] ## ## [facility],[address] [place] [address] 93250 Platelet mean volume (Bld) 8.2 fL Normal 6.6 - 10.5 [facility] [[facility]] [facility] Comment on above: Result Comment: AUTOMATED DI FFERENTIAL Performed By: #### [id number] ## ## [facility],[address] [place], [place] [id number] POIKILO 1+ Normal [facility] Comment on above: Result Comment: {CD] Performed By: #### [id number] ## ## [facility],[address] [place] [address] 23353 RBC 4.24 x 10EE6/UL Normal 4.10 - 5.30 [facility] Comment on above: Performed By: #### [id number] ## ## [facility],[address] [place] [address] 37418 WBC 4.6 x 10EE3/UL Normal 4.5 - 10.8 [facility] Comment on above: Performed By: #### [id number] ## ## [facility],[address] [place] [address] 48514 CMP with eGFR on 11-18-2022 AGE 52 years Normal [facility] Comment on above: Performed By: #### [id number] ## ##[facility],[address] [place] [address] 47036 Albumin [Mass/Vol] 2.7 g/dL Low 3.4 - 5.0 [facility] Comment on above: Performed By: #### [id number] ## ##[facility],[address] [place] [address] 96824 Albumin/Globulin [Mass ratio] 0.8 {ratio} Low 0.9 - 1.6 [facility] Comment on above: Performed By: #### [id number] ## ##[facility],[address] [place] [address] 37720 ALK PHOS 125 U/L High 46 - 116 [facility] Comment on above: Performed By: #### [id number] ## ##[facility],[address] [place] [address] 42356 ALT [Catalytic activity/Vol] 29 U/L Normal 14 - 59 [facility] Comment on above: Performed By: #### [id number] ## ##[facility],[address] [place] [address] 15634 Anion gap [Moles/Vol] 13 mmol/L Normal 10 - 20 [facility] Comment on above: Performed By: #### [id number] ## ##[facility],[address] [place] [address] 71729 AST [Catalytic activity/Vol] 47 U/L High 13 - 39 [facility] Comment on above: Performed By: #### [id number] ## ##[facility],[address] [place] [address] 52725 B/C RATIO 17 ratio Normal 0 - 30 [facility] Comment on above: Performed By: #### [id number] ## ##[facility],[address] [place] [address] 01775 Bilirubin [Mass/Vol] 0.8 mg/dL Normal 0.2 - 1.0 [facility] Comment on above: Performed By: #### [id number] ## ##[facility],[address] [place] [address] 97148 Calcium [Mass/Vol] 9.2 mg/dL Normal 8.5 - 10.1 [facility] Comment on above: Performed By: #### [id number] ## ##[facility],[address] [place] [address] 97341 Chloride [Moles/Vol] 113 mmol/L High 98 - 107 [facility] Comment on above: Performed By: #### [id number] ## ##[facility],[address] [place] [address] 00319 CMP with eGFR Normal [facility] Comment on above: Result Comment: COMPREHENSIV E METABOLIC PANEL Performed By: #### [id number] ## ##[facility],[address] [place] [address] 36209 CO2 [Moles/Vol] 25.5 mmol/L Normal 21.0 - 32.0 [facility] Comment on above: Performed By: #### [id number] ## ##[facility],[address] [place] [address] 06826 Creatinine [Mass/Vol] 0.82 mg/dL Normal 0.55 - 1.02 [facility] Comment on above: Performed By: #### [id number] ## ##[facility],[address] [place] [address] 24993 GFR/1.73 sq M.predicted mL/min/{1.73_m2} Normal 60 - 999 [facility] non-blacks MDRD Hospit al (S/P/Bld) [Vol rate/Area] Comment on above: Performed By: #### [id number] ## ##[facility],[address] [place], [place] [id number] Result Comment: ACCORDING TO THE NATIONAL KIDNEY DISEASE EDUCATION PROGRAM(NKDE), A NORMAL eGFR IS A VALUE GREATER THAN OR E QUAL TO 60 ML/MIN/1.73 SQ METERS. CHRONIC KIDNEY DISEASE: <60m L/MIN/1.73 SQ METERS KIDNEY FAILURE: <15mL/MIN/1. 73 SQ METERS THIS TEST SHOULD ONLY BE USE D FOR PATIENTS 18 YEARS OF AGE AND OLDER. Globulin (S) [Mass/Vol] 3.5 g/dL Normal 1.5 - 3.8 [facility] Comment on above: Performed By: #### [id number] ## ##[facility],[address] [place] [address] 36567 Glucose [Mass/Vol] 93 mg/dL Normal 74 - 106 [facility] [facility] Comment on above: Performed By: #### [id number] ## ##[facility],[address] [place] [address] 74274 Potassium [Moles/Vol] 4.1 mmol/L Normal 3.5 - 5.1 [facility] Comment on above: Performed By: #### [id number] ## ##[facility],[address] [place] [address] 18478 Protein [Mass/Vol] 6.2 g/dL Low 6.4 - 8.2 [facility] Comment on above: Performed By: #### [id number] ## ##[facility],[address] [place] [address] 46433 Sodium [Moles/Vol] 147 mmol/L High 136 - 145 [facility] Comment on above: Performed By: #### [id number] ## ##[facility],[address] [place] [address] 28274 Urea nitrogen [Mass/Vol] 14 mg/dL Normal 7 - 18 [facility] Comment on above: Performed By: #### [id number] ## ##[facility],[address] [place] [address] 37771 TROPONIN I, HIGH SENSITIVITY on 023 HS TROPONIN 7.1 pg/mL Normal 0.0 - 51.4 [facility] Comment on above: Performed By: #### [id number] ## ## [facility],[address] [place] [address] 59870 HS TROPONIN 7.3 pg/mL Normal 0.0 - 51.4 [facility] Comment on above: Performed By: #### [id number] ## ## [facility],[address] [place] [address] ALCOHOL-BLOOD MEDICAL on 11-17-2022 Ethanol [Mass/Vol] 5 mg/dL Normal 0 - 50 [facility] Comment on above: Performed By: #### [id number] ## ##[place] [address] AMMONIA on 11-17-2022 Ammonia (P) [Moles/Vol] 99.0 umol/L High 11.0 - 32.0 [facility] Comment on above: Performed By: #### [id number] ## ## [facility],[address] [place] [address] APTT on 11-17-2022 aPTT Coag (Bld) [Time] 29.8 s Normal 25.4 - 38.4 [facility] Comment on above: Performed By: #### [id number] ## ##[facility],[address] [place] [address] Bacteria Ur Cult on 11-17-2022 Bacteria identified Cx Nom ORGANISM ID: 1 Normal [facility] (U) >=100,000 CFU/ml Normal urogenital shaneka Durant Comment on above: Performed By: #### [id number] ### # [facility] CLIA [id number] [address] [place] [address] [place] CBC + DIFF on 11-17-2022 ANISO 3+ Normal [facility] Comment on above: Result Comment: {CD] Performed By: #### [id number] ## ## [facility],[address] [place] [address] Baso # 0.00 x10EE3/UL Normal 0.00 - 0.10 [facility] Comment on above: Performed By: #### [id number] ## ## [facility],[address],[place] [address] Basophils/100 WBC (Bld) 0.9 % Normal 0.0 - 2.0 [facility] Comment on above: Performed By: #### [id number] ## ## [facility],[address] [place], [place] [id number] CBC + DIFF Normal [facility] Comment on above: Result Comment: CBC-COMPLETE BLOOD COUNT Performed By: #### [id number] ## ## [facility],[address] [place] [address] EO # 0.30 x10EE3/UL Normal 0.00 - 0.50 [facility] Comment on above: Performed By: #### [id number] ## ## [facility],[address] [place] [address] Eosinophils/100 WBC (Bld) 6.8 % Normal 0.0 - 7.0 [facility] Comment on above: Performed By: #### [id number] ## ## [facility],[address] [place] [address] Erythrocyte distribution width 25.7 % High 12.0 - 15. 6 [facility] (RBC) [Ratio] [facility] Comment on above: Performed By: #### [id number] ## ## [facility],[address] [place] [address] Hematocrit (Bld) [Volume 43.3 % Normal 34.0 - 46.0 [facility]] [facility] Comment on above: Performed By: #### [id number] ## ## [facility],[address] [place], [place] [id number] Hemoglobin (Bld) [Mass/Vol] 13.8 g/dL Normal 12.0 - 16.0 [facility] Comment on above: Performed By: #### [id number] ## ## [facility],[address] [place] [address] Lymph # 0.70 x10EE3/UL Low 0.80 - 2.80 [facility] Comment on above: Performed By: #### [id number] ## ## [facility],[address] [place] [address] 07600 Lymphocytes/100 WBC (Bld) 16.6 % Low 20.0 - 45.0 [facility] Comment on above: Performed By: #### [id number] ## ## [facility],[address] [place] [address] 14456 MANUAL DIFF REVIEWED Normal [facility] Comment on above: Performed By: #### [id number] ## ## [facility],[address] [place] [address] 83169 MCH (RBC) [Entitic mass] 27 pg Normal 27 - 33 [facility] Comment on above: Performed By: #### [id number] ## ## [facility],[address] [place] [address] 92407 MCHC 32 X10 3 Normal 32 - 36 [facility] Comment on above: Performed By: #### [id number] ## ## [facility],[address] [place] [address] 78186 MCV (RBC) [Entitic vol] 86 fL Normal 80 - 99 [facility] Comment on above: Performed By: #### [id number] ## ## [facility],[address] [place] [address] 88314 Sequoyah # 0.40 x10EE3/UL Normal 0.20 - 1.00 [facility] Comment on above: Performed By: #### [id number] ## ## [facility],[address] [place] [address] 16616 MONOS % 9.5 % Normal 0.0 - 10.0 [facility] Comment on above: Performed By: #### [id number] ## ## [facility],[address] [place] [address] 88864 Morphology Giovanni (Bld) [Interp] SEE BELOW Normal [facility] Comment on above: Performed By: #### [id number] ## ## [facility],[address] [place] [address] 04676 Neut # 2.80 x10EE3/UL Normal 1.50 - 7.10 [facility] Comment on above: Performed By: #### [id number] ## ## [facility],[address] [place] [address] 10964 Neutrophils/100 WBC (Bld) 66.2 % Normal 46.0 - 76.0 [facility] Comment on above: Performed By: #### [id number] ## ## [facility],[address] [place] [address] 67464 PLATELET 95 x10EE3/UL Low 150 - 450 [facility] Comment on above: Performed By: #### [id number] ## ## [facility],[address] [place] [address] 29809 Platelet mean volume (Bld) 8.8 fL Normal 6.6 - 10.5 [facility] Comment on above: Result Comment: AUTOMATED DI FFERENTIAL Performed By: #### [id number] ## ## [facility],[address] [place] [address] 82237 RBC 5.05 x 10EE6/UL Normal 4.10 - 5.30 [facility] Comment on above: Performed By: #### [id number] ## ## [facility],[address] [place] [address] 98444 WBC 4.3 x 10EE3/UL Low 4.5 - 10.8 [facility] Comment on above: Performed By: #### [id number] ## ## [facility],[address] [place] [address] 60004 CHEST 1 VIEW on 11-17-2022 CHEST 1 VIEW [facility] Normal [place] [address] Patient: EVER MCKEON Phone#: : 1970 Age: 52 Gender: F Pt. Type: ER Account: [id number] Location: 052 Ordering: EYAL FRANCO Exam Date: 11/17/2022/16:38 Family Phys: Charge Code: [id number] Physician: [facility] Order #: [id number] Dose#: PROCEDURE: X-RAY CHEST 1 VIEW COMPARISON: [facility], XR, CHEST 1 VIEW, 2022, 19:10. INDICATIONS: Cough. FINDINGS: Study limited by patient body habitus LUNGS: Opacification at the right costophrenic angle may be due to overlying soft tissue or space disease. VASCULATURE: Mild increased pulmonary vascularity CARDIAC: Cardiomegaly MEDIASTINUM: Normal. No visible mass or adenopathy. PLEURA: Normal. No effusion or pleural thickening. BONES: Normal. No fracture or visible bony lesion. OTHER: Monitoring leads project across the thorax CONCLUSION: 1. Cardiomegaly and increased pulmonary vascularity, c orrelate for CHF Dictated by: Nette Minor MD on 11/17/2022 at 16:44 Approved by: Nette Minor MD on 11/17/2022 at 17:02 CMP with eGFR on 11-17-2022 AGE 52 years Normal [facility] Comment on above: Performed By: #### [id number] ## ## [facility],[address] [place] [address] 08239 Albumin [Mass/Vol] 3.4 g/dL Normal 3.4 - 5.0 [facility] Comment on above: Performed By: #### [id number] ## ## [facility],[address] [place] [address] 21763 Albumin/Globulin [Mass ratio] 0.9 {ratio} Normal 0.9 - 1.6 [facility] Comment on above: Performed By: #### [id number] ## ## [facility],[address] [place] [address] 74081 ALK PHOS 173 U/L High 46 - 116 [facility] Comment on above: Performed By: #### [id number] ## ## [facility],[address] [place] [address] 83554 ALT [Catalytic activity/Vol] 38 U/L Normal 14 - 59 [facility] Comment on above: Performed By: #### [id number] ## ## [facility],[address] [place] [address] 04123 Anion gap [Moles/Vol] 13 mmol/L Normal 10 - 20 [facility] Comment on above: Performed By: #### [id number] ## ## [facility],[address] [place] [address] 80691 AST [Catalytic activity/Vol] 58 U/L High 13 - 39 [facility] Comment on above: Performed By: #### [id number] ## ## [facility],[address] [place] [address] 80386 B/C RATIO 17 ratio Normal 0 - 30 [facility] Comment on above: Performed By: #### [id number] ## ## [facility],[address] [place] [address] 75560 Bilirubin [Mass/Vol] 1.0 mg/dL Normal 0.2 - 1.0 [facility] Comment on above: Performed By: #### [id number] ## ## [facility],[address] [place] [address] 80294 Calcium [Mass/Vol] 9.5 mg/dL Normal 8.5 - 10.1 [facility] Comment on above: Performed By: #### [id number] ## ## [facility],[address] [place] [address] 78629 Chloride [Moles/Vol] 111 mmol/L High 98 - 107 [facility] Comment on above: Performed By: #### [id number] ## ## [facility],[address] [place] [address] 53146 CMP with eGFR Normal [facility] Comment on above: Result Comment: COMPREHENSIV E METABOLIC PANEL Performed By: #### [id number] ## ## [facility],[address] [place] [address] 35347 CO2 [Moles/Vol] 27.7 mmol/L Normal 21.0 - 32.0 [facility] Comment on above: Performed By: #### [id number] ## ## [facility],[address] [place], [place] [id number] Creatinine [Mass/Vol] 0.64 mg/dL Normal 0.55 - 1.02 [facility] Comment on above: Performed By: #### [id number] ## ## [facility],[address] [place], [place] [id number] GFR/1.73 sq M.predicted mL/min/{1.73_m2} Normal 60 - 999 [facility] non-blacks [facility] Hospit al (S/P/Bld) [Vol rate/Area] Comment on above: Performed By: #### [id number] ## ## [facility],[address] [place], [place] [id number] Result Comment: ACCORDING TO THE NATIONAL KIDNEY DISEASE EDUCATION PROGRAM(NKDE), A NORMAL eGFR IS A VALUE GREATER THAN OR E QUAL TO 60 ML/MIN/1.73 SQ METERS. CHRONIC KIDNEY DISEASE: <60m L/MIN/1.73 SQ METERS KIDNEY FAILURE: <15mL/MIN/1. 73 SQ METERS THIS TEST SHOULD ONLY BE USE D FOR PATIENTS 18 YEARS OF AGE AND OLDER. Globulin (S) [Mass/Vol] 3.8 g/dL Normal 1.5 - 3.8 [facility] Comment on above: Performed By: #### [id number] ## ## [facility],[address] [place], [place] [id number] Glucose [Mass/Vol] 73 mg/dL Low 74 - 106 [facility] Comment on above: Performed By: #### [id number] ## ## [facility],[address] [place] [address] 19532 Potassium [Moles/Vol] 4.8 mmol/L Normal 3.5 - 5.1 [facility] Comment on above: Performed By: #### [id number] ## ## [facility],[address] [place] [address] 06467 Protein [Mass/Vol] 7.2 g/dL Normal 6.4 - 8.2 [facility] Comment on above: Performed By: #### [id number] ## ## [facility],[address] [place] [address] Sodium [Moles/Vol] 147 mmol/L High 136 - 145 [facility] Comment on above: Performed By: #### [id number] ## ## [facility],[address] [place] [address] Urea nitrogen [Mass/Vol] 11 mg/dL Normal 7 - 18 [facility] Comment on above: Performed By: #### [id number] ## ## [facility],[address] [place], [place] [id number] CORONAVIRUS PCR - TOUGALOO on 3 SARS-CoV-2 (COVID-19) RNA Negative Normal NORMAL: NEGATIV E [facility]ADIA+probe Ql ([facility] spec[facility] Comment on above: Performed By: #### [id number] ## ## [facility],[address] [place] [address] SEND TO IC? YES Normal [facility] Comment on above: Result Comment: RESULTS FAXE D TO INFECTION CONTROL. SARS-CoV-2 THIS TEST IS BEING USED UNDE R THE FDA EUA PROCEDURE. THIS ASSAY HAS BEEN VALIDATED IN THE [facility] FOR USE WITH NASOPHARYNGEAL SPECIMENS IN [facility]. INTERPRETIVE DATA LABORATORY TEST RESULTS SHOU LD ALWAYS BE CONSIDERED IN THE CONTEXT OF CLINICAL OBSERVATIONS AND EPIDEMIOLOG ICAL DATA IN MAKING FINAL DIAGNOSIS AND PATIENT MANAGEMENT DECISIONS. PATIEN T MANAGEMENT SHOULD FOLLOW CURRENT CDC GUIDELINES. A POSITIVE TEST RESULT FOR C OVID-19 INDICATES THAT RNA FROM SARS-CoV-2 WAS DETECTED, AND THE PATIENT IS INFECTED WITH THE VIRUS AND PRESUMED TO BE CONTAGIOUS. A NEGATIVE TEST RESULT FOR T HIS TEST MEANS THAT SARS-CoV-2 RNA WAS NOT PRESENT IN THE SPECIMEN ABOVE THE LI CRISTY OF DETECTION. HOWEVER, A NEGATVIE RESULT DOES NOT RULE OUT COVID-19 AND SH OULD NOT BE USED THE SOLE BASIS FOR TREATMENT OR PATIENT MANAGEMENT DECISIONS . A NEGATIVE RESULT DOES NOT EXCLUDE THE POSSIBILITY OF COVID-19. WHEN DIAGNOSTIC TESTING IS N EGATIVE, THE POSSIBLILTY OF A FALSE NEGATIVE RESULT SHOULD BE CONSIDERED IN THE CONTEXT OF A PATIENT'S RECENT EXPOSURES AND THE PRESENCE OF CLINICAL SIGNS A ND SYMPTOMS CONSISTENT WITH COVID-19. THE POSSIBILITY OF A FALSE NEGAT COREEN RESULT SHOULD ESPECIALLY BE CONSIDERED IF THE PATIENT'S RECENT EXPOSURES O R CLINICAL PRESENTATION INDICATE THAT COVID-19 IS LIKELY, AND DIAGNOSTIC TESTS FOR OTHER CAUSES OF ILLNESS (e.g., OTHER RESPIRATORY ILLNESS) ARE NEG ATIVE. IF COVID-19 IS STILL SUSPECTED BASED ON EXPOSURE HISTORY TOGETHER WI TH OTHER CLINICAL FINDINGS, RE-TESTED SHOULD BE CONSIDERED BY [employer] IN CONSULTATION WITH PUBLIC HEALTH AUTHORITIES. Performed By: #### [id number] ## ## [facility],[address] [place] [address] CT BRAIN W/O CONTRAST on 11-17-2022 CT BRAIN W/O CONTRAST [facility] Normal [place] [address] Patient: EVER MCKEON Phone#: : 1970 Age: 52 Gender: F Pt. Type: ER Account: [id number] Location: [facility] Ordering: EYAL CSERDARELLIK Exam Date: 11/17/2022/16:21 Family Phys: Charge Code: [id number] Physician: [facility] Order #: [id number] Dose#: [id number] PROCEDURE: CT BRAIN WITHOUT CONTRAST COMPARISON: [facility], CT, BRAIN W/O CON, 10/30, 18:38. INDICATIONS: Altered mental status. TECHNIQUE: CT images were obtained without contrast taina davison. All CT scans at this facilit y use dose modulation, iterative reconstruction, and/or weight based dosing when appropriate to reduce radiati on dose to as low as reasonably achievable. IV CONTRAST: No IV contrast used,0ml TOTAL DOSE: 52.30 CTDIvol(mGy) FINDINGS: Patient motion limits the evaluation CEREBRUM: No edema, hemorrhage, mass, or inappropriate atrophy. CEREBELLUM: No edema, hemorrhage, mass, or inappropria te atrophy. BRAINSTEM: No edema, hemorrhage, mass, or inappropriat e atrophy. CSF SPACES: Ventricles, cist erns, and sulci are appropriate for age. No hydrocephalus, subarachnoid hemorrhage, or mass. SKULL: Hyperostosis frontalis interna, benign age rela dori finding SINUSES: Limited views demonstrate no si gnificant mucosal thickening or fluid. ORBITS: Limited views are unremarkable. OTHER: Negative. CONCLUSION: 1. No appreciable acute intr acranial abnormality or interval change within the limits of patient motion. Dictated by: Nette Minor MD on 11/17/2022 at 17:02 Approved by: Nette Minor MD on 11/17/2022 at 17:06 CULTURE BLOOD [DIANA] on 11-17-2022 Microscopic CULTURE BLOOD [DIANA] Normal [facility] examination of blood, _BLOOD CULTURE_ [facility] culture [facility] AND [facility]ACH[facility] FOR SCANNED REPO RT 11/[email or web address] Comment on above: Performed By: #### [id number] ## ## [place] [address] Microscopic CULTURE BLOOD [DIANA] Normal [facility] examination of blood, _BLOOD CULTURE_ [facility] culture [facility] RE[facility] AND ATTACHMENTS FOR SCANNED REPO RT 11/[email or web address] Comment on above: Performed By: #### [id number] ## ## [place] [address] DRUG SCREEN URINE MEDIC on 11-17-2022 AMPHETAMINES Negative Normal [facility] Comment on above: Performed By: #### [id number] ## ##[place] [address] B-DIAZEPINES Negative Normal [facility] Comment on above: Performed By: #### [id number] ## ##[facility],[address] [place] [address] 38799 BARBITURATES Negative [facility] Comment on above: Performed By: #### [id number] ## ##[facility],[address] [place] [address] 68755 COCAINE Negative [facility] Comment on above: Performed By: #### [id number] ## ##[facility],[address] [place] [address] 61155 DRUG SCREEN URINE MEDIC [facility] Comment on above: Result Comment: DRUG SCREEN - URINE Performed By: #### [id number] ## ##[facility],[address] [place] [address] 12626 METHADONE Negative [facility] Comment on above: Performed By: #### [id number] ## ##[facility],[address] [place] [address] 33031 OPIATES Negative [facility] Comment on above: Performed By: #### [id number] ## ##[facility],[address] [place] [address] 25863 PCP Negative [facility] Comment on above: Performed By: #### [id number] ## ##[facility],[address] [place] [address] 06076 THC Negative [facility] Comment on above: Result Comment: PATIENTS REC EIVING PROTON PUMP INHIBITORS MAY DEMONSTRATE FALSE POSITIVE THC/CANNABINOID RESULTS. AN ALTERNATIVE CONFIRMATORY METHOD SHOULD BE CONSIDERED TO VERIFY POSITIVE RESULTS. Performed By: #### [id number] ## ##[facility],[address] [place] [address] 67182 INFLUENZA VIRUS RAPID A/B on 3 INFLUENZA VIRUS RAPID IN[facility]ZA [facility] NEGATIVE INTERNAL NEG QC PASS INTERNAL POS QC PASS EXTERNAL QC DONE? YES SEND TO IC? YES A NEGATIVE TEST RESULT DOES NOT EXCLUDE INFECTION WITH INFLUENZA A OR B. THEREFORE, THE RESULTS OBTAINED FROM THIS FLU TEST SHOULD BE USED IN CONJUCTION WITH CLINIC AL FINDINGS TO MAKE AN ACCURATE DIAGNOSIS. A POSITIVE RESULT DOES NOT RULE OUT CO-INFECTIONS WITH OTHER PATHOGENS OR IDENTIFY ANY SPECIFIC INFLUENZA A VIRUS SUBTYPE.CO-INFECTION WITH INFLUENZA A AND B IS R ARE. IT IS RECOMMENDED THAT DUAL POSITIVE RESULTS BE CONF IRMED BY VIRAL CULTURE OR AN FDA-CLEARED INFLUENZA A AND B MOLECULAR ASSAY. INDIVIDUALS WHO HAVE RECEIVED NASALLY ADMINISTERED INF LUENZA A VACCINE MAY TEST POSITIVE IN COMMERCIALLY AVAILABLE INFLUENZA RAPID DIAGNOSTIC TESTS FOR UP TO THREE DAYS. RESULT CRITICAL? NO Comment on above: Performed By: #### [id number] ## ##[place] [id number] LACTATE on 11-17-2022 Lactate [Moles/Vol] 0.7 mmol/L Normal 0.4 - 2.0 [facility] Comment on above: Performed By: #### [id number] ## ## [facility],[address] [place], [place] [address] PROTHROMBIN TIME AND INR on 11-17-2022 INR Coag (PPP) [Relative time] 1.1 {INR} Normal 0.8 - 1.2 [facility] Comment on above: Result Comment: THE HEMOS IL THROMBOPLASTIN REAGENT USED IN THE PROTHROMBIN TIME TEST INTERACTS WITH THE DRUG CUBICIN (DAPTOMYCIN) AND WILL RESULT IN FALSELY ELEVATED PT / INR RESULTS INR INTERPRETATION INR INDICATION PREVENTION AND TREATMENT OF THROMBOEMBOLISM ASSOCIATED WITH: 2.0 - 3.0 ATRIAL FIBRILLATIO N, BIOPROSTHETIC HEART VALVES, PULMONARY EMBOLISM, VENOUS THROMBOSIS, SYSTEMIC EMBOLISM POST MYOCARDIAL INFARCTION 2.5 - 3.5 MECHANICAL HEART V JOSEPH Performed By: #### [id number] ## ## [facility],[address] [place], [place] [address] PROTHROMBIN TIME AND INR Normal [facility] Comment on above: Result Comment: PROTHROMBIN TIME AND INR Performed By: #### [id number] ## ## [facility],[address],[place] [address] PT-COUMADIN 13.3 sec Normal 9.3 - 14.1 [facility] Comment on above: Performed By: #### [id number] ## ## [facility],[address] [place] [address] 35158 TROPONIN I, HIGH SENSITIVITY on 023 HS TROPONIN 7.8 pg/mL Normal 0.0 - 51.4 [facility] Comment on above: Performed By: #### [id number] ## ##[facility],[address] [place] [address] 02546 HS TROPONIN 7.9 pg/mL Normal 0.0 - 51.4 [facility] Comment on above: Performed By: #### [id number] ## ## [facility],[address] [place] [address] 91110 URINALYSIS on 11-17-2022 Amorphous NONE Normal [facility] Comment on above: Performed By: #### [id number] ## ## [facility],[address] [place] [address] 50429 Bacteria 2+ Normal [facility] Comment on above: Performed By: #### [id number] ## ## [facility],[address] [place] [address] 53603 Bilirubin Ql (U) Negative Normal NORMAL: NEGATIVE [facility] Comment on above: Performed By: #### [id number] ## ## [facility],[address] [place] [address] 45297 Casts NONE Normal [facility] Comment on above: Performed By: #### [id number] ## ## [facility],[address] [place] [address] 25312 Clarity (U) clear Normal NORMAL: CLEAR [facility] Comment on above: Performed By: #### [id number] ## ## [facility],[address] [place] [address] 91840 Color (U) p.yel Normal NORMAL: YELLOW [facility] Comment on above: Performed By: #### [id number] ## ## [facility],[address] [place] [address] 44819 Crystals LM Nom (Urine sed) NONE Normal [facility] Comment on above: Performed By: #### [id number] ## ## [facility],[address] [place] [address] 23902 Epi Cells FEW Normal [facility] Comment on above: Performed By: #### [id number] ## ## [facility],[address] [place] [address],[facility] [address] Glucose Ql (U) NORM Normal NORMAL: NORMAL [facility] Comment on above: Performed By: #### [id number] ## ## [facility],[address] [place] [address] Hemoglobin Ql (U) 10 Abnormal NORMAL: NEGATIVE [facility] Comment on above: Performed By: #### [id number] ## ## [facility],[address] [place] [address] Ketone Negative Normal NORMAL: NEGATIVE [facility] Comment on above: Performed By: #### [id number] ## ## [facility],[address] [place] [address]46[address] Leukocytes Negative Normal NORMAL: NEGATIVE [facility] Comment on above: Performed By: #### [id number] ## ## [facility],[address] [place] [address] Mucous NONE Normal [facility] Comment on above: Performed By: #### [id number] ## ## [facility],[address] [place] [address] Nitrite Ql (U) Negative Normal NORMAL: NEGATIVE [facility] Comment on above: Performed By: #### [id number] ## ## [facility],[address] [address] pH (U) 7 [pH] Normal NORMAL: 5.0-8.0 [facility] Comment on above: Performed By: #### [id number] ## ## [facility],[address] [place] [address] Protein Ql (U) Negative Normal NORMAL: NEGATIVE [facility] Comment on above: Performed By: #### [id number] ## ## [facility],[address] [place] [address] Rbc 0-5 Normal 0-3/hpf [facility] Comment on above: Performed By: #### [id number] ## ## [facility],[address] [place] [address] Sp [place] 1.005 Low NORMAL: 1.010-1.030 [facility] Comment on above: Performed By: #### [id number] ## ## [facility],[address] [place] [address] Specimen Type UNSPECIFIED Normal [facility] Comment on above: Performed By: #### [id number] ## ## [facility],[address] [place] [address] Urinalysis dipstick W Reflex SEE BELOW Normal [facility] Microscopic panel (U) Comment on above: Result Comment: MICROSCOPIC Performed By: #### [id number] ## ## [facility],[address] [place] [address] Urobilinog 1 Abnormal NORMAL: NORMAL [facility] Comment on above: Performed By: #### [id number] ## ## [facility],[address] [place] [address] Wbc 1-5 Normal 0-5/hpf [facility] Comment on above: Performed By: #### [id number] ## ## [facility],[address] [place] [address] Yeast NONE Normal [facility] Comment on above: Performed By: #### [id number] ## ## [facility],[address] [place] [address] URINE CULTURE [CCL] on 11-17-2022 Bacteria identified Cx URCUL Normal [facility] Nom (U) See Results Below Hospital See Below CULTURE, URINE NORMAL UROGENITAL SHANEKA >=100,000 CFU/ml Normal urogenital shaneka SOURCE: URINE [facility] [address] [place] [address] Aristeo Malloy III, M.D. [id number] Comment on above: Performed By: #### [id number] ## ## [facility],[address] [place] [address] EMERGENCY REPORT on 11-12-2022 EMERGENCY REPORT [facility] Normal [facility] EMERGENCY ROOM REPORT NAME ACCOUNT SEX AGE ADMIT DISCHARGE PT MED. RECORD# NUMBER DATE DATE TYPE LINDA, [id number] F 52 10/30/22 10/31/22 3 [facility] [id number] ROOM: ER DATE OF : 1970 DICTATING PHYSICIAN: Saw River DATE SEEN: October 30, 2022 DIAGNOSTIC DATA: Ammonia level came back elevated at 1 10. High normal is 32. Blood alcohol was less than 3 mg/dL, so it was normal. BNP was normal at 67. Lactate was normal at 1.0. I nfluenza swab did come back positive for influenza A. So addendum diagnosis will be influenza A. EMERGENCY DEPARTMENT COURSE: I did give the patient of Tamiflu 75 mg p.o. here for the influenza. DISPOSITION/PLAN: I did annita millard with Dr. Jacobson, our hospitalist here, but he did not feel comfortable admitting h er here since we do not have gastroenterology to consult. So I spoke with the [place] transfer line since this patient had been admitted up there at [place] in September of 2022 for same problem. I spo ke with Dr. Woodward, the hospitalist on [facility]. He d id accept the patient for admission, direct admission to their regular medical floor under his service. Presently we are awaiting a bed assignment. Once we have that we will ca ll an ambulance for EMS transfer to [place] for direct admission and for the therapy. DIAGNOSES: 1. Hepatic encephalopathy. 2. Altered mental status secondary to number one. 3. Influenza A. Dictated By: Saw River DO 10/30/22 21:41 JOB #: [id number] Transcribed By: kandice 11/02/22 00:53 Electronically signed by: E-Sign: Dr. aSw River D.O. 11/12/22 06:41 Page 1 of 2 [facility] Report [facility] : 1970 Page 2 of 2 [facility] Report CNPN on 11-10-2022 [place]ERT[place] Telephone (ROSALBA) Normal [facility] ([id number]) 1970 F Medical Date Time Provider Department Center 11/10/22 MARILYNN CARBALLO During your visit today, we recorded the following inf ormation about you: Krysten Delgadoirajfreeman 11/10/2022 2:45 PM Signed No Show Documentation Ever Kiel Linda no showed for an appointment on 0 11/10/22 with Marilynn Carballo APRN.CNP at 2:00 pm. She was scheduled for a new patient hospital follow up . I called and spoke with the patient regarding her miss ed appointment. Ever stated the reason that she missed her appointment was because that she has . Been trying to call the office to reschedule. Resources discussed/offered to patient: reschedule kingsley ointment. No show determined to be fau lt of patient: N/A-patient has not established care yet. This is the patients first no show in the last 12 lidia hs. Patient was rescheduled for 11/16/22 at 2:00 pm. Letter mailed : N/A Is this the Third or Fourth No Show ? No Krysten Iris November 10, 2022 2:39 PM Allergies As of Date: 11/10/2022 Noted Allergy Reactio n VICODIN (HYDROCODONE-ACETAMINOPHE*07/16/2014 8 - GI Up set Date Reviewed: 06/12/2022 Reviewed by: Gunnar Zhou MD - Fully Assessed Reason for Visit: Missed Appointment [1304] Cmt: New patient missed appo intment. Prescriptions as of 11/10/2022 - buPROPion XL (WELLBUTRIN XL) 150 mg 24 hr tablet Take 150 mg by mouth once daily. - loratadine (CLARITIN) 10 mg tablet Take 10 mg by mouth once daily. - fluticasone propionate (FLONASE NASAL) Use in the nose once daily. - busPIRone (BUSPAR) 10 mg tablet Take 10 mg by mouth three times daily as needed. - citalopram (CELEXA) 40 mg tablet Take 40 mg by mouth once daily. - mirtazapine (REMERON) 15 mg tablet Take 15 mg by mouth daily at bedtime. - prazosin (MINIPRESS) 1 mg cap Take 1 mg by mouth daily at bedtime. Problem List As Of Date 11/10/2022 Noted Resolved Primary osteoarthritis of left knee [M17.12] 8 Non morbid obesity [E66.9] 11/16/2017 Cirrhosis of liver without ascites (HCC) [K74.6*2017 IBS (irritable bowel syndrome) [K58.9] 02/03/2018 Depression with anxiety [F41.8] 02/03/2018 OA (osteoarthritis) of knee [M17.9] 02/08/2018 Encephalopathy acute [G93.40] 06/12/2022 06/15/2022 Nicotine use disorder, F17.2 [F17.200] 06/15/2022 Obesity, Class II, BMI 35-39.9 [E66.9] 06/15/2022 Encounter Status:Closed by KRYSTEN SIMMONS on .Auto Diff on 11-02-2022 Basophil, Absolute 0.0 10 3/mcL Normal 0.0-0.3 [facility] ([place] Comment on above: Performed By: #### CMP, GFR, AMM, LAC, HEPAC #### [facility] [address] [place], [place] [address] Basophils/100 WBC (Bld) 0.7 % Normal 0.0-2.5 [facility] ([place] Comment on above: Performed By: #### CMP, GFR, AMM, LAC, HEPAC #### [address] [address] Eosinophil, Absolute 0.3 10 3/mcL Normal 0.0-0.7 [facility] ([place] Comment on above: Performed By: #### CMP, GFR, AMM, LAC, HEPAC #### [address] [address] Eosinophils/100 WBC (Bld) 6.0 % Normal 0.0-6.0 [facility] ([place] Comment on above: Performed By: #### CMP, GFR, AMM, LAC, HEPAC #### [address] [address] Lymphocyte, Absolute 1.5 10 3/mcL Normal 0.9-4.3 [facility] ([place] Comment on above: Performed By: #### CMP, GFR, AMM, LAC, HEPAC #### [address] [address] Lymphocytes/100 WBC (Bld) 25.3 % Normal 20.0-40.0 [facility] ([place] Comment on above: Performed By: #### CMP, GFR, AMM, LAC, HEPAC #### [address] [address] Monocyte, Absolute 0.8 10 3/mcL Normal 0.1-1.4 [facility] ([place] Comment on above: Performed By: #### CMP, GFR, AMM, LAC, HEPAC #### [address] [address] Monocytes/100 WBC (Bld) 14.4 % High 2.0-13.0 [facility] ([place] Comment on above: Performed By: #### CMP, GFR, AMM, LAC, HEPAC #### [address] [address] Neutrophils/100 WBC (Bld) 53.6 % Normal 50.0-75.0 [facility] ([place] Comment on above: Performed By: #### CMP, GFR, AMM, LAC, HEPAC #### [address] [address] .GFR on 11-02-2022 GFR Non- >60 Normal [facility] ([place] Comment on above: Result Comment: GFR Population mean for Afri can Chinese, Non- Americans Ages 20-29 = 116 mL/min/1.73 sq.m. Ages 30-39 = 107 mL/min/1.73 sq.m. Ages 40-49 = 99 mL/min/1.73 sq.m. Ages 50-59 = 93 mL/min/1.73 sq.m. Ages 60-69 = 85 mL/min/1.73 sq.m. Ages 70+ = 75 mL/min/1.73 sq .m. Chronic Kidney Disease: Less than 60 mL/min/1.73 square meters End Stage Renal Disease: Les s than 15 mL/min/1.73 square meters Performed By: #### CMP, GFR, AMM, LAC, HEPAC #### [address] [address] GFR >60 Normal [facility] ([place] Comment on above: Result Comment: GFR Population mean for Afri can Chinese, Non- Americans Ages 20-29 = 116 mL/min/1.73 sq.m. Ages 30-39 = 107 mL/min/1.73 sq.m. Ages 40-49 = 99 mL/min/1.73 sq.m. Ages 50-59 = 93 mL/min/1.73 sq.m. Ages 60-69 = 85 mL/min/1.73 sq.m. Ages 70+ = 75 mL/min/1.73 sq .m. Chronic Kidney Disease: Less than 60 mL/min/1.73 square meters End Stage Renal Disease: Les s than 15 mL/min/1.73 square meters Performed By: #### CMP, GFR, AMM, LAC, HEPAC #### [address] [address] .Morph on 11-02-2022 Anisocytosis Ql (Bld) 2+ Normal [facility] ([place] Comment on above: Performed By: #### CMP, GFR, AMM, LAC, HEPAC #### [address] [address] Ovalocytes 1+ Normal [facility] ([place] Comment on above: Performed By: #### CMP, GFR, AMM, LAC, HEPAC #### [address] [address] Platelet Estimate Decreased Normal [facility] ([place] Comment on above: Performed By: #### CMP, GFR, AMM, LAC, HEPAC #### [address] [address] Poik 1+ Normal [facility] ([place] Comment on above: Performed By: #### CMP, GFR, AMM, LAC, HEPAC #### [address] [address] Tear Cell 1+ Normal [facility] ([place] Comment on above: Performed By: #### CMP, GFR, AMM, LAC, HEPAC #### [address] [address] .NEUABS on 11-02-2022 Neutrophil, Absolute 3.1 10 3/mcL Normal 2.3-8.1 [facility] ([place] Comment on above: Performed By: #### CMP, GFR, AMM, LAC, HEPAC #### [address] [id number] AMM on 11-02-2022 Ammonia 111 mcmol/l High 11-32 [facility] ([place] Comment on above: Performed By: #### CMP, GFR, AMM, LAC, HEPAC #### [address] [address] BMP on 11-02-2022 BUN/Creatinine Ratio 23.7 ratio High 10.0-22.0 [facility] ([place] Comment on above: Performed By: #### CMP, GFR, AMM, LAC, HEPAC #### [address] [address] Calcium [Mass/Vol] 9.5 mg/dL Normal 8.7-10.4 [facility] ([place] Comment on above: Performed By: #### CMP, GFR, AMM, LAC, HEPAC #### [address] [address] Chloride [Moles/Vol] 110 mmol/L Normal 98-110 [facility] ([place] Comment on above: Performed By: #### CMP, GFR, AMM, LAC, HEPAC #### [address] [address] CO2 [Moles/Vol] 27 mmol/L Normal 22-32 [facility] Comment on above: Performed By: #### CMP, GFR, AMM, LAC, HEPAC #### [address] [address] Creatinine [Mass/Vol] 0.76 mg/dL Normal 0.50-1.20 [facility] ([place] Comment on above: Performed By: #### CMP, GFR, AMM, LAC, HEPAC #### [address] [address] Electrolyte Balance 4.0 mEq/L Normal 4.0-15.0 [facility] ([place] Comment on above: Performed By: #### CMP, GFR, AMM, LAC, HEPAC #### [address] [address] Glucose [Mass/Vol] 82 mg/dL Normal 70-110 [facility] ([place] Comment on above: Performed By: #### CMP, GFR, AMM, LAC, HEPAC #### [address] [address] Potassium [Moles/Vol] 3.8 mmol/L Normal 3.5-5.0 [facility] ([place] Comment on above: Performed By: #### CMP, GFR, AMM, LAC, HEPAC #### [address] [address] Sodium [Moles/Vol] 141 mmol/L Normal 136-145 [facility] ([place] Comment on above: Performed By: #### CMP, GFR, AMM, LAC, HEPAC #### [address] [place] [id number] Urea nitrogen [Mass/Vol] 18.0 mg/dL Normal 8.0-22.0 [facility] ([place] Comment on above: Performed By: #### CMP, GFR, AMM, LAC, HEPAC #### [place] [id number] CBC on 11-02-2022 Erythrocyte distribution width 27.7 % High 11.5-15.5 [facility] ([place] (RBC) [Ratio] Comment on above: Performed By: #### CMP, GFR, AMM, LAC, HEPAC #### [address] [place] [id number] Hematocrit (Bld) [Volume 35.6 % Normal 34.0-46.0 [facility] ([place] fraction] Comment on above: Performed By: #### CMP, GFR, AMM, LAC, HEPAC #### [address] [place] [id number] Hgb 11.7 G/dL Low 12.0-16.0 [facility] ([place] Comment on above: Performed By: #### CMP, GFR, AMM, LAC, HEPAC #### [address] [address] MCH (RBC) [Entitic mass] 27.1 pg Normal 27.0-33.0 [facility] ([place] Comment on above: Performed By: #### CMP, GFR, AMM, LAC, HEPAC #### [address] [place] [id number] MCHC 32.9 G/dL Normal 32.0-36.0 [facility] ([place] Comment on above: Performed By: #### CMP, GFR, AMM, LAC, HEPAC #### [address] [address] MCV (RBC) [Entitic vol] 82.5 fL Normal 80.0-99.0 [facility] ([place] Comment on above: Performed By: #### CMP, GFR, AMM, LAC, HEPAC #### [facility] [address] [place] [address] Platelet 69 10 3/mcL Low 150-450 [facility] ([place] Comment on above: Performed By: #### CMP, GFR, AMM, LAC, HEPAC #### [facility] [address] [place] [address] Platelet mean volume (Bld) 8.6 fL Normal 6.6-10.5 [facility] ([place] [Entitic vol] Comment on above: Performed By: #### CMP, GFR, AMM, LAC, HEPAC #### [address] [address] RBC 4.31 10 6/mcL Normal 4.10-5.30 [facility] ([place] Comment on above: Performed By: #### CMP, GFR, AMM, LAC, HEPAC #### [address] [address] WBC 5.8 10 3/mcL Normal 4.5-10.8 [facility] ([place] Comment on above: Performed By: #### CMP, GFR, AMM, LAC, HEPAC #### [address] [address] LABORATORY Ordered By: Gogo Campbell on 11-02-2022 Blood Glucose Routine [facility] al Testing Reason (11/02/22 8:11 AM) Work Phon e: Glucose 94 mg/dL Invalid Interpretation 70 - 110 [facility] [Mass/Vol] Code mg/dL Work Phone: LABORATORY Ordered By: SYSTEM SYSTEM on 11-02-2022 Ammonia (P) 111 umol/L Invalid 11 - 32 ADM SS [Moles/Vol] Interpretation Code mcmol/L Anisocytosis Ql (Bld) 2+ Invalid AH Wor kflow SS *NA* Interpretation Code (11/02/22 4:08 AM) Basophils (Bld) 0.0 103/mcL Invalid 0.0 - 0.3 Workflow SS [#/Vol] Interpretation Code 10^3/mcL Basophils/100 WBC 0.7 % Invalid 0.0 - 2.5 % Workflo w SS (Bld) Interpretation Code Calcium [Mass/Vol] 9.5 mg/dL Invalid 8.7 - 10.4 ADM SS Interpretation Code mg/dL Chloride [Moles/Vol] 110 mmol/L Invalid 98 - 110 AH ADM SS Interpretation Code mEq/L CO2 [Moles/Vol] 27 mmol/L Invalid 22 - 32 mEq/L AH ADM SS Interpretation Code Creatinine [Mass/Vol] 0.76 mg/dL Invalid 0.50 - 1.20 ADM SS Interpretation Code mg/dL Electrolyte Balance 4.0 mEq/L Invalid 4.0 - 15.0 ADM S S Interpretation Code mEq/L Eosinophils (Bld) 0.3 103/mcL Invalid 0.0 - 0.7 [employer] w SS [#/Vol] Interpretation Code 10^3/mcL Eosinophils/100 WBC 6.0 % Invalid 0.0 - 6.0 % Workf low SS (Bld) Interpretation Code Erythrocyte 27.7 % Invalid 11.5 - 15.5 % Workflow SS distribution width Interpretation Code (RBC) [Ratio] GFR/1.73 sq ml/min/1.73sqm Invalid Chemistry S M.predicted among Interpretation Code blacks MDRD (S/P/Bld) [Vol rate/Area] GFR/1.73 sq ml/min/1.73sqm Invalid Chemistry S M.predicted among Interpretation Code non-blacks MDRD (S/P/Bld) [Vol rate/Area] Glucose [Mass/Vol] 82 mg/dL Invalid 70 - 110 ADM SS Interpretation Code mg/dL Hematocrit (Bld) 35.6 % Invalid 34.0 - 46.0 % [employer]flo w SS [Volume fraction] Interpretation Code Hemoglobin (Bld) 11.7 G/dL Invalid 12.0 - 16.0 Workflow SS [Mass/Vol] Interpretation Code G/dL Lymphocytes (Bld) 1.5 103/mcL Invalid 0.9 - 4.3 [employer] w SS [#/Vol] Interpretation Code 10^3/mcL Lymphocytes/100 WBC 25.3 % Invalid 20.0 - 40.0 % Work flow SS (Bld) Interpretation Code MCH (RBC) [Entitic 27.1 pg Invalid 27.0 - 33.0 Workfl ow SS mass] Interpretation Code pg MCHC 32.9 G/dL Invalid 32.0 - 36.0 AH Workflow SS Interpretation Code G/dL MCV (RBC) [Entitic 82.5 fL Invalid 80.0 - 99.0 AH Workfl ow SS vol] Interpretation Code fL Monocytes (Bld) 0.8 103/mcL Invalid 0.1 - 1.4 AH Workflow SS [#/Vol] Interpretation Code 10^3/mcL Monocytes/100 WBC 14.4 % Invalid 2.0 - 13.0 % AH Workflo w SS (Bld) Interpretation Code Neutrophils (Bld) 3.1 103/mcL Invalid 2.3 - 8.1 AH [employer]flo w SS [#/Vol] Interpretation Code 10^3/mcL Neutrophils/100 WBC 53.6 % Invalid 50.0 - 75.0 % AH Work flow SS (Bld) Interpretation Code Ovalocytes LM Ql 1+ Invalid AH Workflow SS (Bld) *NA* Interpretation Code (11/02/22 4:08 AM) Platelet mean volume 8.6 fL Invalid 6.6 - 10.5 fL AH Wor kflow SS (Bld) [Entitic vol] Interpretation Code Platelets (Bld) 69 103/mcL Invalid 150 - 450 AH Workflow SS [#/Vol] Interpretation Code 10^3/mcL Platelets LM Ql (Bld) Decreased Invalid AH Wor kflow SS *NA* Interpretation Code (11/02/22 4:08 AM) Poikilocytosis LM Ql 1+ Invalid AH Work flow SS (Bld) *NA* Interpretation Code (11/02/22 4:08 AM) Potassium [Moles/Vol] 3.8 mmol/L Invalid 3.5 - 5.0 AH ADM SS Interpretation Code mEq/L RBC (Bld) [#/Vol] 4.31 106/mcL Invalid 4.10 - 5.30 AH [employer]flo w SS Interpretation Code 10^6/mcL Sodium [Moles/Vol] 141 mmol/L Invalid 136 - 145 AH ADM SS Interpretation Code mEq/L Tear Cell 1+ Invalid AH Workflow SS *NA* Interpretation Code (11/02/22 4:08 AM) Urea nitrogen 18.0 mg/dL Invalid 8.0 - 22.0 AH ADM SS [Mass/Vol] Interpretation Code mg/dL Urea 23.7 ratio Invalid 10.0 - 22.0 AH ADM SS nitrogen/Creatinine Interpretation Code ratio [Mass ratio] WBC (Bld) [#/Vol] 5.8 103/mcL Invalid 4.5 - 10.8 [employer]flo w SS Interpretation Code 10^3/mcL .Auto Diff on 11-01-2022 Basophil, Absolute 0.0 10 3/mcL Normal 0.0-0.3 [facility] ([place] Comment on above: Performed By: #### CMP, GFR, AMM, LAC, HEPAC #### [address] [address] Basophils/100 WBC (Bld) 0.7 % Normal 0.0-2.5 [facility] ([place] Comment on above: Performed By: #### CMP, GFR, AMM, LAC, HEPAC #### [address] [address] Eosinophil, Absolute 0.3 10 3/mcL Normal 0.0-0.7 [facility] ([place] Comment on above: Performed By: #### CMP, GFR, AMM, LAC, HEPAC #### [address] [address] Eosinophils/100 WBC (Bld) 4.6 % Normal 0.0-6.0 [facility] ([place] Comment on above: Performed By: #### CMP, GFR, AMM, LAC, HEPAC #### [address] [address] Lymphocyte, Absolute 1.0 10 3/mcL Normal 0.9-4.3 [facility] ([place] Comment on above: Performed By: #### CMP, GFR, AMM, LAC, HEPAC #### [address] [address] Lymphocytes/100 WBC (Bld) 16.9 % Low 20.0-40.0 [facility] ([place] Comment on above: Performed By: #### CMP, GFR, AMM, LAC, HEPAC #### [address] [address] Monocyte, Absolute 0.8 10 3/mcL Normal 0.1-1.4 [facility] ([place] Comment on above: Performed By: #### CMP, GFR, AMM, LAC, HEPAC #### [address] [address] Monocytes/100 WBC (Bld) 14.5 % High 2.0-13.0 [facility] ([place] Comment on above: Performed By: #### CMP, GFR, AMM, LAC, HEPAC #### [address] [address] Neutrophils/100 WBC (Bld) 63.3 % Normal 50.0-75.0 [facility] ([place] Comment on above: Performed By: #### CMP, GFR, AMM, LAC, HEPAC #### [address] [address] .GFR on 11-01-2022 GFR >60 Normal [facility] ([place] Comment on above: Result Comment: GFR Population mean for Afri can Chinese, Non- Americans Ages 20-29 = 116 mL/min/1.73 sq.m. Ages 30-39 = 107 mL/min/1.73 sq.m. Ages 40-49 = 99 mL/min/1.73 sq.m. Ages 50-59 = 93 mL/min/1.73 sq.m. Ages 60-69 = 85 mL/min/1.73 sq.m. Ages 70+ = 75 mL/min/1.73 sq .m. Chronic Kidney Disease: Less than 60 mL/min/1.73 square meters End Stage Renal Disease: Les s than 15 mL/min/1.73 square meters Performed By: #### CMP, GFR, AMM, LAC, HEPAC #### [address] [address] GFR Non- >60 Normal [facility] ([place] Comment on above: Result Comment: GFR Population mean for Afri can Chinese, Non- Americans Ages 20-29 = 116 mL/min/1.73 sq.m. Ages 30-39 = 107 mL/min/1.73 sq.m. Ages 40-49 = 99 mL/min/1.73 sq.m. Ages 50-59 = 93 mL/min/1.73 sq.m. Ages 60-69 = 85 mL/min/1.73 sq.m. Ages 70+ = 75 mL/min/1.73 sq .m. Chronic Kidney Disease: Less than 60 mL/min/1.73 square meters End Stage Renal Disease: Les s than 15 mL/min/1.73 square meters Performed By: #### CMP, GFR, AMM, LAC, HEPAC #### [address] [address] .Morph on 11-01-2022 Anisocytosis Ql (Bld) 2+ Normal [facility] ([place] Comment on above: Performed By: #### CMP, GFR, AMM, LAC, HEPAC #### [place] [address] Ovalocytes 1+ Normal [facility] ([place] Comment on above: Performed By: #### CMP, GFR, AMM, LAC, HEPAC #### [place] [address] Platelet Estimate Decreased Normal [facility] ([place] Comment on above: Performed By: #### CMP, GFR, AMM, LAC, HEPAC #### [place] [address] Poik 1+ Normal [facility] ([place] Comment on above: Performed By: #### CMP, GFR, AMM, LAC, HEPAC #### [place] [address] Tear Cell 1+ Normal [facility] ([place] Comment on above: Performed By: #### CMP, GFR, AMM, LAC, HEPAC #### [place] [address] .NEUABS on 11-01-2022 Neutrophil, Absolute 3.6 10 3/mcL Normal 2.3-8.1 [facility] ([place] Comment on above: Performed By: #### CMP, GFR, AMM, LAC, HEPAC #### [place] [address] AMM on 11-01-2022 Ammonia 77 mcmol/l High 11-32 [facility] ([place] Comment on above: Performed By: #### CMP, GFR, AMM, LAC, HEPAC #### [address] [address] BMP on 11-01-2022 BUN/Creatinine Ratio 21.4 ratio Normal 10.0-22.0 [facility] ([place] Comment on above: Performed By: #### CMP, GFR, AMM, LAC, HEPAC #### [address] [address] Calcium [Mass/Vol] 9.6 mg/dL Normal 8.7-10.4 [facility] ([place] Comment on above: Performed By: #### CMP, GFR, AMM, LAC, HEPAC #### [place] [id number] Chloride [Moles/Vol] 109 mmol/L Normal 98-110 [facility] ([place] Comment on above: Performed By: #### CMP, GFR, AMM, LAC, HEPAC #### [place] [id number] CO2 [Moles/Vol] 24 mmol/L Normal 22-32 [facility] Comment on above: Performed By: #### CMP, GFR, AMM, LAC, HEPAC #### [place] [id number] Creatinine [Mass/Vol] 0.70 mg/dL Normal 0.50-1.20 [facility] ([place] Comment on above: Performed By: #### CMP, GFR, AMM, LAC, HEPAC #### [place] [id number] Electrolyte Balance 8.0 mEq/L Normal 4.0-15.0 [facility] ([place] Comment on above: Performed By: #### CMP, GFR, AMM, LAC, HEPAC #### [place] [id number] Glucose [Mass/Vol] 132 mg/dL High 70-110 [facility] ([place] Comment on above: Performed By: #### CMP, GFR, AMM, LAC, HEPAC #### [place] [id number] Potassium [Moles/Vol] 3.9 mmol/L Normal 3.5-5.0 [facility] ([place] Comment on above: Performed By: #### CMP, GFR, AMM, LAC, HEPAC #### [address] [address] Sodium [Moles/Vol] 141 mmol/L Normal 136-145 [facility] ([place] Comment on above: Performed By: #### CMP, GFR, AMM, LAC, HEPAC #### [place] [id number] Urea nitrogen [Mass/Vol] 15.0 mg/dL Normal 8.0-22.0 [facility] ([place]) Comment on above: Performed By: #### CMP, GFR, AMM, LAC, HEPAC #### [address] [address] CBC on 11-01-2022 Erythrocyte distribution width 27.9 % High 11.5-15.5 [facility] ([place] (RBC) [Ratio] Comment on above: Performed By: #### CMP, GFR, AMM, LAC, HEPAC #### [place] [address] Hematocrit (Bld) [Volume 38.7 % Normal 34.0-46.0 [facility] ([place] fraction] Comment on above: Performed By: #### CMP, GFR, AMM, LAC, HEPAC #### [place] [id number] Hgb 12.4 G/dL Normal 12.0-16.0 [facility] ([place] Comment on above: Performed By: #### CMP, GFR, AMM, LAC, HEPAC #### [address] [address] MCH (RBC) [Entitic mass] 26.7 pg Low 27.0-33.0 [facility] ([place] Comment on above: Performed By: #### CMP, GFR, AMM, LAC, HEPAC #### [place] [id number] MCHC 32.0 G/dL Normal 32.0-36.0 [facility] ([place] Comment on above: Performed By: #### CMP, GFR, AMM, LAC, HEPAC #### [address] [address] MCV (RBC) [Entitic vol] 83.2 fL Normal 80.0-99.0 [facility] ([place] Comment on above: Performed By: #### CMP, GFR, AMM, LAC, HEPAC #### [place] [id number] Platelet 70 10 3/mcL Low 150-450 [facility] ([place] Comment on above: Performed By: #### CMP, GFR, AMM, LAC, HEPAC #### [place] [id number] Platelet mean volume (Bld) 8.6 fL Normal 6.6-10.5 [facility] ([place] [Entitic vol] Comment on above: Performed By: #### CMP, GFR, AMM, LAC, HEPAC #### [place] [id number] RBC 4.66 10 6/mcL Normal 4.10-5.30 [facility] ([place] Comment on above: Performed By: #### CMP, GFR, AMM, LAC, HEPAC #### [place] [id number] WBC 5.8 10 3/mcL Normal 4.5-10.8 [facility] ([place] Comment on above: Performed By: #### CMP, GFR, AMM, LAC, HEPAC #### [place] [id number] EMERGENCY REPORT on 11-01-2022 EMERGENCY REPORT [facility] Normal [facility] EMERGENCY ROOM REPORT NAME ACCOUNT SEX AGE ADMIT DISCHARGE PT MED. RECORD# [id number] DATE DATE TYPE LINDA [id number] F 52 10/30/22 10/31/22 3 [facility] [id number] ROOM: ER DATE OF : 1970 DICTATING PHYSICIAN: [place] TIME SEEN: 1850 hours. HISTORY OF PRESENT ILLNESS: This is a 52-year-old white female brought here for evaluation of altered mental status. According to her brother, she has been confused and has been noted to have some righ t-sided facial droop and difficulty speaking since last night. Brother tried to get her to come in to the hospital last night, but she had refused. Her last known well was close to 24 hours ago. She has been confused and o riented to name only. PAST MEDICAL HISTORY: Depres garrett/anxiety, irritable bowel syndrome, and cirrhosis of the liver. PAST SURGICAL HISTORY: Loulou cystectomy, previous left total knee replacement, , and tubal ligation. SOCIAL HISTORY: She does kelton e at home with family. She does have a past history of alcohol abuse. She has been sober no w for approximately 8 months, according to the history. She denies any drug or tobacco use. REVIEW OF SYSTEMS: Unobtaina ble due to the patient being a poor historian. She will answer a few questions. PHYSICAL EXAMINATION: VITAL SIGNS: Temperature is 98.8, pulse 110, respirations 18, blood pressure 184/88, pulse oximetry 99% on room air, and weight 240 pounds. GENERAL: The patient is presently kiki ke, but she is oriented to name only. She will follow some commands and other commands she will not follow. At times, it is hard to get her to pay attention to you, but if you do focus on talking to her directly she will make eye contact with you. There was some question of s ome right-sided neglect, but when we talked to her at length we did get her to look at the n corale standing on the right side of her bed, and she did actually look at her. HEENT: I do note what a ppears to be somewhat of a small right facial droop. Her speech at this time does not appear to be slurred. She is mostly nonverbal, but she will say a few words. When she tries to smile, the re is some right-sided facial droop. Her pupils are constricted but do react to light. Red reflexes are intact bilaterally. No conjunctival injection. NOSE: Nose exhibits no rhinorrhea or epistaxis. MOUTH: Mucous membranes are dry. No pharyngeal erythema. Uvula is midline and elevate s. NECK: Neck is supple. Trachea is midline. No JVD or lymphadenopathy. No posterio r cervical tenderness. No nuchal rigidity. LUNGS: Lungs are clear to auscultation bilaterally. No adventitious sounds are noted. No accessory muscle use is noted. CV: Heart rate and rhythm ar e regular. Somewhat distant heart sounds but no murmur noted. ABDOMEN: Abdomen is soft, obese and nont kike with normoactive bowel sounds x4 quadrants. No guarding or ri gidity. No rebound. No palpable abdominal masses. No Page 1 of 2 [facility] Report LINDA EVER : 1970 hepatosplenomegaly. BACK: Ba ck exhibits no midline or paraspinal region tenderness. No increased paraspinal muscle rigidity. Negative Yaron's sign. EXTREMITIES: The patient does exhibit a lot of diffuse gen eralized weakness to all 4 extremities, but I do not note any focal weakness to her extremities. We did ask her to do the [id number] test, and she did that very poorly. We did not really no mono any drift with her upper extremities, but when she holds them up she can only hold them up fo r a few seconds and then she will lower them. SKIN: Her skin is warm and dry and somewhat pa le but no diaphoresis or rash. NEUROLOGIC: Neurologic examination presently shows the patient to be awake, but she is oriented to name only. She does not know time or place. She does move all 4 extremities, but they are very weak but do appear to be symmetrically w eak. She is mostly nonverbal, but when she does speak occasionally her speech does not sound slurred to me. DIAGNOSTIC DATA: CT scan of the brain was read by the radiologist as showing no CT evidence of a large acute te rritorial infarct, hemorrhage, mass effect or midline shift. There was some cerebral parenchymal vo lume loss with mild chronic microvascular ischemic changes. No calvarial fractures. There w as a mild atraumatic deviation of the nasal septum to the left and intracranial vascular calcifications. CBC showed a white count of 4.1, hemoglobin 13.2, hematocrit 41.3, and platelet count low at 84,000. Chemistry showed a s odium of 142, potassium 4.5, chloride 108, CO2 of 24, glucose 95, BUN 10, and creatinine 0 .67. AST is 47, which is mildly elevated. Alkaline phosphatase is mildly elevated at 179. ALT was normal at 33. Total bilirubin was minimally elevated at 1.2. Anion gap is normal at 15. Her EKG was done here at 185 0 hours, and it shows a normal sinus rhythm at a rate of [address]-segment changes ar (more content not inclu ded)... LABORATORY Ordered By: [place] on 11-01-2022 Glucose [Mass/Vol] 106 mg/dL Invalid 70 - 110 [facility] Interpretation Code mg/dL Work Adolfo ne: Blood Glucose Routine [facility] al Testing Reason (11/01/22 4:34 PM) Work Phon e: Glucose [Mass/Vol] 112 mg/dL Invalid 70 - 110 [facility] Interpretation Code mg/dL Work Adolfo ne: LABORATORY Ordered By: Wolf Choi on 0 11-01-2022 Blood Glucose Testing Reason Routine [facility] (11/01/22 12:57 PM) Blood Glucose Interventions Administered food/juice [facility] (11/01/22 12:11 PM) LABORATORY Ordered By: [place] on 11-01-2022 Ammonia (P) 77 umol/L Invalid 11 - 32 ADM SS [Moles/Vol] Interpretation Code mcmol/L Anisocytosis Ql (Bld) 2+ Invalid Wor kflow SS *NA* Interpretation Code (11/01/22 4:49 AM) Basophils (Bld) 0.0 103/mcL Invalid 0.0 - 0.3 Workflow SS [#/Vol] Interpretation Code 10^3/mcL Basophils/100 WBC 0.7 % Invalid 0.0 - 2.5 % Workflo w SS (Bld) Interpretation Code Calcium [Mass/Vol] 9.6 mg/dL Invalid 8.7 - 10.4 ADM SS Interpretation Code mg/dL Chloride [Moles/Vol] 109 mmol/L Invalid 98 - 110 ADM SS Interpretation Code mEq/L CO2 [Moles/Vol] 24 mmol/L Invalid 22 - 32 mEq/L ADM SS Interpretation Code Creatinine [Mass/Vol] 0.70 mg/dL Invalid 0.50 - 1.20 ADM SS Interpretation Code mg/dL Electrolyte Balance 8.0 mEq/L Invalid 4.0 - 15.0 AH ADM S S Interpretation Code mEq/L Eosinophils (Bld) 0.3 103/mcL Invalid 0.0 - 0.7 AH Workflo w SS [#/Vol] Interpretation Code 10^3/mcL Eosinophils/100 WBC 4.6 % Invalid 0.0 - 6.0 % AH Workf low SS (Bld) Interpretation Code Erythrocyte 27.9 % Invalid 11.5 - 15.5 % AH Workflow SS distribution width Interpretation Code (RBC) [Ratio] GFR/1.73 sq ml/min/1.73sqm Invalid Chemistry S M.predicted among Interpretation Code blacks MDRD (S/P/Bld) [Vol rate/Area] GFR/1.73 sq ml/min/1.73sqm Invalid Chemistry S M.predicted among Interpretation Code non-blacks MDRD (S/P/Bld) [Vol rate/Area] Glucose [Mass/Vol] 132 mg/dL Invalid 70 - 110 ADM SS Interpretation Code mg/dL Hematocrit (Bld) 38.7 % Invalid 34.0 - 46.0 % AH Workflo w SS [Volume fraction] Interpretation Code Hemoglobin (Bld) 12.4 G/dL Invalid 12.0 - 16.0 AH Workflow SS [Mass/Vol] Interpretation Code G/dL Lymphocytes (Bld) 1.0 103/mcL Invalid 0.9 - 4.3 AH Workflo w SS [#/Vol] Interpretation Code 10^3/mcL Lymphocytes/100 WBC 16.9 % Invalid 20.0 - 40.0 % AH Work flow SS (Bld) Interpretation Code MCH (RBC) [Entitic 26.7 pg Invalid 27.0 - 33.0 AH Workfl ow SS mass] Interpretation Code pg MCHC 32.0 G/dL Invalid 32.0 - 36.0 AH Workflow SS Interpretation Code G/dL MCV (RBC) [Entitic 83.2 fL Invalid 80.0 - 99.0 AH Workfl ow SS vol] Interpretation Code fL Monocytes (Bld) 0.8 103/mcL Invalid 0.1 - 1.4 AH Workflow SS [#/Vol] Interpretation Code 10^3/mcL Monocytes/100 WBC 14.5 % Invalid 2.0 - 13.0 % AH Workflo w SS (Bld) Interpretation Code Neutrophils (Bld) 3.6 103/mcL Invalid 2.3 - 8.1 AH Workflo w SS [#/Vol] Interpretation Code 10^3/mcL Neutrophils/100 WBC 63.3 % Invalid 50.0 - 75.0 % AH Work flow SS (Bld) Interpretation Code Ovalocytes LM Ql 1+ Invalid AH Workflow SS (Bld) *NA* Interpretation Code (11/01/22 4:49 AM) Platelet mean volume 8.6 fL Invalid 6.6 - 10.5 fL AH Wor kflow SS (Bld) [Entitic vol] Interpretation Code Platelets (Bld) 70 103/mcL Invalid 150 - 450 AH Workflow SS [#/Vol] Interpretation Code 10^3/mcL Platelets LM Ql (Bld) Decreased Invalid AH Wor kflow SS *NA* Interpretation Code (11/01/22 4:49 AM) Poikilocytosis LM Ql 1+ Invalid AH Work flow SS (Bld) *NA* Interpretation Code (11/01/22 4:49 AM) Potassium [Moles/Vol] 3.9 mmol/L Invalid 3.5 - 5.0 AH ADM SS Interpretation Code mEq/L RBC (Bld) [#/Vol] 4.66 106/mcL Invalid 4.10 - 5.30 AH Workflo w SS Interpretation Code 10^6/mcL Sodium [Moles/Vol] 141 mmol/L Invalid 136 - 145 AH ADM SS Interpretation Code mEq/L Tear Cell 1+ Invalid AH Workflow SS *NA* Interpretation Code (11/01/22 4:49 AM) Urea nitrogen 15.0 mg/dL Invalid 8.0 - 22.0 AH ADM SS [Mass/Vol] Interpretation Code mg/dL Urea 21.4 ratio Invalid 10.0 - 22.0 AH ADM SS nitrogen/Creatinine Interpretation Code ratio [Mass ratio] WBC (Bld) [#/Vol] 5.8 103/mcL Invalid 4.5 - 10.8 AH Workflo w SS Interpretation Code 10^3/mcL .Auto Diff on 10-31-2022 Basophil, Absolute 0.0 10 3/mcL Normal 0.0-0.3 [facility] ([place] Comment on above: Performed By: #### GFR, MG, PRO, CMP, AMM #### [address] [address] Basophils/100 WBC (Bld) 1.0 % Normal 0.0-2.5 [facility] ([place] Comment on above: Performed By: #### GFR, MG, PRO, CMP, AMM #### [address] [address] Eosinophil, Absolute 0.3 10 3/mcL Normal 0.0-0.7 [facility] ([place] Comment on above: Performed By: #### GFR, MG, PRO, CMP, AMM #### [address] [address] Eosinophils/100 WBC (Bld) 7.3 % High 0.0-6.0 [facility] ([place] Comment on above: Performed By: #### GFR, MG, PRO, CMP, AMM #### [address] [address] Lymphocyte, Absolute 1.2 10 3/mcL Normal 0.9-4.3 [facility] ([place] Comment on above: Performed By: #### GFR, MG, PRO, CMP, AMM #### [address] [address] Lymphocytes/100 WBC (Bld) 27.6 % Normal 20.0-40.0 [facility] ([place] Comment on above: Performed By: #### GFR, MG, PRO, CMP, AMM #### [address] [address] Monocyte, Absolute 0.6 10 3/mcL Normal 0.1-1.4 [facility] ([place] Comment on above: Performed By: #### GFR, MG, PRO, CMP, AMM #### [address] [address] Monocytes/100 WBC (Bld) 13.2 % High 2.0-13.0 [facility] ([place] Comment on above: Performed By: #### GFR, MG, PRO, CMP, AMM #### [address] [address] Neutrophils/100 WBC (Bld) 50.9 % Normal 50.0-75.0 [facility] ([place] Comment on above: Performed By: #### GFR, MG, PRO, CMP, AMM #### [address] [address] .GFR on 10-31-2022 GFR Non- >60 Normal [facility] ([place] Comment on above: Result Comment: GFR Population mean for Afri can Chinese, Non- Americans Ages 20-29 = 116 mL/min/1.73 sq.m. Ages 30-39 = 107 mL/min/1.73 sq.m. Ages 40-49 = 99 mL/min/1.73 sq.m. Ages 50-59 = 93 mL/min/1.73 sq.m. Ages 60-69 = 85 mL/min/1.73 sq.m. Ages 70+ = 75 mL/min/1.73 sq .m. Chronic Kidney Disease: Less than 60 mL/min/1.73 square meters End Stage Renal Disease: Les s than 15 mL/min/1.73 square meters Performed By: #### LAC #### [place] [address] GFR >60 Normal [facility] ([place] Comment on above: Result Comment: GFR Population mean for Afri can Chinese, Non- Americans Ages 20-29 = 116 mL/min/1.73 sq.m. Ages 30-39 = 107 mL/min/1.73 sq.m. Ages 40-49 = 99 mL/min/1.73 sq.m. Ages 50-59 = 93 mL/min/1.73 sq.m. Ages 60-69 = 85 mL/min/1.73 sq.m. Ages 70+ = 75 mL/min/1.73 sq .m. Chronic Kidney Disease: Less than 60 mL/min/1.73 square meters End Stage Renal Disease: Les s than 15 mL/min/1.73 square meters Performed By: #### LAC #### [address] [address] .Morph on 10-31-2022 Anisocytosis Ql (Bld) 2+ Normal [facility] ([place] Comment on above: Performed By: #### GFR, MG, PRO, CMP, AMM #### [place] [address] Ovalocytes 1+ Normal [facility] ([place] Comment on above: Performed By: #### GFR, MG, PRO, CMP, AMM #### [place] [address] Platelet Estimate Decreased Normal [facility] ([place] Comment on above: Performed By: #### GFR, MG, PRO, CMP, AMM #### [place] [address] Poik 1+ Normal [facility] ([place] Comment on above: Performed By: #### GFR, MG, PRO, CMP, AMM #### [place] [address] Tear Cell 1+ Normal [facility] ([place] Comment on above: Performed By: #### GFR, MG, PRO, CMP, AMM #### [place] [address] .NEUABS on 10-31-2022 Neutrophil, Absolute 2.2 10 3/mcL Low 2.3-8.1 [facility]) Comment on above: Performed By: #### GFR, MG, PRO, CMP, AMM #### [place] [address] AMM on 10-31-2022 Ammonia 127 mcmol/l High 11-32 [facility] ([place] Comment on above: Performed By: #### LAC #### [place] [address] CBC on 10-31-2022 Erythrocyte distribution width 28.4 % High 11.5-15.5 [facility] ([place] (RBC) [Ratio] Comment on above: Performed By: #### LAC #### [place] [address] Hematocrit (Bld) [Volume 37.5 % Normal 34.0-46.0 [facility] ([place] fraction] Comment on above: Performed By: #### LAC #### [place] [address] Hgb 12.1 G/dL Normal 12.0-16.0 [facility] ([place] Comment on above: Performed By: #### LAC #### [address] [address] MCH (RBC) [Entitic mass] 26.8 pg Low 27.0-33.0 [facility] ([place] Comment on above: Performed By: #### LAC #### [place] [id number] MCHC 32.3 G/dL Normal 32.0-36.0 [facility] ([place] Comment on above: Performed By: #### LAC #### [place] [id number] MCV (RBC) [Entitic vol] 83.1 fL Normal 80.0-99.0 [facility] ([place] Comment on above: Performed By: #### LAC #### [place] [address] Platelet 80 10 3/mcL Low 150-450 [facility] ([place] Comment on above: Performed By: #### LAC #### [place] [address] Platelet mean volume (Bld) 8.6 fL Normal 6.6-10.5 [facility] ([place] [Entitic vol] Comment on above: Performed By: #### LAC #### [place] [address] RBC 4.51 10 6/mcL Normal 4.10-5.30 [facility] ([place] Comment on above: Performed By: #### LAC #### [place] [address] WBC 4.3 10 3/mcL Low 4.5-10.8 [facility] ([place] Comment on above: Performed By: #### LAC #### [place] [id number] CMP on 10-31-2022 Albumin Level 3.3 G/dL Normal 3.2-4.8 [facility] ([place] Comment on above: Performed By: #### LAC #### [place] [address] Albumin/Globulin [Mass ratio] 1.0 {ratio} Normal 0.9-1.6 [facility] ([place] Comment on above: Performed By: #### LAC #### [address] [address] ALP [Catalytic activity/Vol] 135 U/L High 38-126 [facility] ([place] Comment on above: Performed By: #### LAC #### [address] [address] ALT [Catalytic activity/Vol] 25 U/L Normal 10-49 [facility] ([place] Comment on above: Performed By: #### LAC #### [address] [address] AST [Catalytic activity/Vol] 41 U/L High 8-34 [facility] ([place] Comment on above: Performed By: #### LAC #### [address] [address] Bili Total 1.40 mg/dL High 0.20-1.20 [facility] ([place] Comment on above: Result Comment: Use of this assay is not recommended for patients undergoing treatment with eltrombopag d ue to the potential for falsely elevated results. Performed By: #### LAC #### [place] [id number] BUN/Creatinine Ratio 18.3 ratio Normal 10.0-22.0 [facility] ([place] Comment on above: Performed By: #### LAC #### [address] [address] Calcium [Mass/Vol] 9.4 mg/dL Normal 8.7-10.4 [facility] ([place] Comment on above: Performed By: #### LAC #### [address] [address] Chloride [Moles/Vol] 111 mmol/L High 98-110 [facility] ([place] Comment on above: Performed By: #### LAC #### [address] [address] CO2 [Moles/Vol] 22 mmol/L Normal 22-32 [facility] [place]: Performed By: #### LAC #### [address] [address] Creatinine [Mass/Vol] 0.82 mg/dL Normal 0.50-1.20 [facility] ([place] Comment on above: Performed By: #### LAC #### [address] [address] Electrolyte Balance 9.0 mEq/L Normal 4.0-15.0 [facility] ([place] Comment on above: Performed By: #### LAC #### [address] [address] Globulin 3.2 G/dL Normal 1.5-3.8 [facility] ([place] Comment on above: Performed By: #### LAC #### [place] [id number] Glucose [Mass/Vol] 244 mg/dL High 70-110 [facility] ([place] Comment on above: Performed By: #### LAC #### [place] [id number] Potassium [Moles/Vol] 4.0 mmol/L Normal 3.5-5.0 [facility] [place] Comment on above: Performed By: #### LAC #### [place] [id number] Sodium [Moles/Vol] 142 mmol/L Normal 136-145 [facility] ([place] Comment on above: Performed By: #### LAC #### [place] [id number] Total Protein 6.5 G/dL Normal 5.7-8.2 [facility] ([place] Comment on above: Result Comment: Note - New Reference Range in effect 20 Performed By: #### LAC #### [address] [address] Urea nitrogen [Mass/Vol] 15.0 mg/dL Normal 8.0-22.0 [facility] ([place] Comment on above: Performed By: #### LAC #### [address] [address] LABORATORY Ordered By: SYSTEM SYSTEM on 10-31-2022 Albumin BCP dye 3.3 G/dL Invalid 3.2 - 4.8 ADM SS [Mass/Vol] Interpretation Code G/dL Albumin/Globulin 1.0 {ratio} Invalid 0.9 - 1.6 ADM SS [Mass ratio] Interpretation Code ratio ALP [Catalytic 135 U/L Invalid 38 - 126 U/L AH ADM SS activity/Vol] Interpretation Code ALT No additional 25 U/L Invalid 10 - 49 U/L ADM SS P-5'-P [Catalytic Interpretation Code activity/Vol] Ammonia (P) 127 umol/L Invalid 11 - 32 ADM SS [Moles/Vol] Interpretation Code mcmol/L Anisocytosis Ql (Bld) 2+ Invalid Wor kflow SS *NA* Interpretation Code (10/31/22 4:17 AM) AST [Catalytic 41 U/L Invalid 8 - 34 U/L ADM SS activity/Vol] Interpretation Code Basophils (Bld) 0.0 103/mcL Invalid 0.0 - 0.3 Workflow SS [#/Vol] Interpretation Code 10^3/mcL Basophils/100 WBC 1.0 % Invalid 0.0 - 2.5 % Workflo w SS (Bld) Interpretation Code Bilirubin [Mass/Vol] 1.40 mg/dL Invalid 0.20 - 1.20 ADM SS Interpretation Code mg/dL Calcium [Mass/Vol] 9.4 mg/dL Invalid 8.7 - 10.4 ADM SS Interpretation Code mg/dL Chloride [Moles/Vol] 111 mmol/L Invalid 98 - 110 ADM SS Interpretation Code mEq/L CO2 [Moles/Vol] 22 mmol/L Invalid 22 - 32 ADM SS Interpretation Code mEq/L Creatinine [Mass/Vol] 0.82 mg/dL Invalid 0.50 - 1.20 ADM SS Interpretation Code mg/dL Electrolyte Balance 9.0 mEq/L Invalid 4.0 - 15.0 ADM S S Interpretation Code mEq/L Eosinophils (Bld) 0.3 103/mcL Invalid 0.0 - 0.7 Workflo w SS [#/Vol] Interpretation Code 10^3/mcL Eosinophils/100 WBC 7.3 % Invalid 0.0 - 6.0 % Workf low SS (Bld) Interpretation Code Erythrocyte 28.4 % Invalid 11.5 - 15.5 Workflow SS distribution width Interpretation Code % (RBC) [Ratio] GFR/1.73 sq ml/min/1.73sqm Invalid Chemistry S M.predicted among Interpretation Code blacks MDRD (S/P/Bld) [Vol rate/Area] GFR/1.73 sq ml/min/1.73sqm Invalid Chemistry S M.predicted among Interpretation Code non-blacks MDRD (S/P/Bld) [Vol rate/Area] Globulin 3.2 G/dL Invalid 1.5 - 3.8 ADM SS Interpretation Code G/dL Glucose [Mass/Vol] 244 mg/dL Invalid 70 - 110 ADM SS Interpretation Code mg/dL Hematocrit (Bld) 37.5 % Invalid 34.0 - 46.0 Workflow SS [Volume fraction] Interpretation Code % Hemoglobin (Bld) 12.1 G/dL Invalid 12.0 - 16.0 Workflow SS [Mass/Vol] Interpretation Code G/dL Lymphocytes (Bld) 1.2 103/mcL Invalid 0.9 - 4.3 Workflo w SS [#/Vol] Interpretation Code 10^3/mcL Lymphocytes/100 WBC 27.6 % Invalid 20.0 - 40.0 Workf low SS (Bld) Interpretation Code % Magnesium [Mass/Vol] 2.0 mg/dL Invalid 1.6 - 2.4 ADM SS Interpretation Code mg/dL MCH (RBC) [Entitic 26.8 pg Invalid 27.0 - 33.0 Workfl ow SS mass] Interpretation Code pg MCHC 32.3 G/dL Invalid 32.0 - 36.0 Workflow SS Interpretation Code G/dL MCV (RBC) [Entitic 83.1 fL Invalid 80.0 - 99.0 Workfl ow SS vol] Interpretation Code fL Monocytes (Bld) 0.6 103/mcL Invalid 0.1 - 1.4 Workflow SS [#/Vol] Interpretation Code 10^3/mcL Monocytes/100 WBC 13.2 % Invalid 2.0 - 13.0 % Workflo w SS (Bld) Interpretation Code Neutrophils (Bld) 2.2 103/mcL Invalid 2.3 - 8.1 Workflo w SS [#/Vol] Interpretation Code 10^3/mcL Neutrophils/100 WBC 50.9 % Invalid 50.0 - 75.0 AH Workf low SS (Bld) Interpretation Code % Ovalocytes LM Ql 1+ Invalid AH Workflow SS (Bld) *NA* Interpretation Code (10/31/22 4:17 AM) Platelet mean volume 8.6 fL Invalid 6.6 - 10.5 AH Work flow SS (Bld) [Entitic vol] Interpretation Code fL Platelets (Bld) 80 103/mcL Invalid 150 - 450 AH Workflow SS [#/Vol] Interpretation Code 10^3/mcL Platelets LM Ql (Bld) Decreased Invalid AH Wor kflow SS *NA* Interpretation Code (10/31/22 4:17 AM) Poikilocytosis LM Ql 1+ Invalid AH Work flow SS (Bld) *NA* Interpretation Code (10/31/22 4:17 AM) Potassium [Moles/Vol] 4.0 mmol/L Invalid 3.5 - 5.0 AH ADM SS Interpretation Code mEq/L Protein [Mass/Vol] 6.5 G/dL Invalid 5.7 - 8.2 AH ADM SS Interpretation Code G/dL RBC (Bld) [#/Vol] 4.51 106/mcL Invalid 4.10 - 5.30 AH Workflo w SS Interpretation Code 10^6/mcL Sodium [Moles/Vol] 142 mmol/L Invalid 136 - 145 AH ADM SS Interpretation Code mEq/L Tear Cell 1+ Invalid AH Workflow SS *NA* Interpretation Code (10/31/22 4:17 AM) Urea nitrogen 15.0 mg/dL Invalid 8.0 - 22.0 AH ADM SS [Mass/Vol] Interpretation Code mg/dL Urea 18.3 ratio Invalid 10.0 - 22.0 AH ADM SS nitrogen/Creatinine Interpretation Code ratio [Mass ratio] WBC (Bld) [#/Vol] 4.3 103/mcL Invalid 4.5 - 10.8 AH [employer] w SS Interpretation Code 10^3/mcL LABORATORY Ordered By: Ivonne Orosco on 10-31-2022 INR Coag (PPP) 1.2 {INR} Invalid Interpretation AH Auto Coag [Relative time] Code SS PT Coag (PPP) [Time] 15.0 s Invalid Interpretation 9.0 - 14.9 AH Auto Coag Code seconds SS MG on 10-31-2022 Magnesium [Mass/Vol] 2.0 mg/dL Normal 1.6-2.4 [facility] [place] Comment on above: Performed By: #### LAC #### [address] [address] PRO on 10-31-2022 INR Coag (PPP) [Relative time] 1.2 {INR} Normal [facility] [place] Comment on above: Result Comment: [employer] (CHEST, 1992, 102:312S-25S) recommended therapeutic rang e for oral anticoagulant therapy is: LOW RISK: Prophylaxis of starr ous thrombosis INR: 2.0-3.0 Treatment of pulmonary embol ism 2.0-3.0 Prevention of systemic embol ism 2.0-3.0 HIGH RISK: Mechanical prosth etic valves 2.5-3.5 Performed By: #### LAC #### [address] [id number] PT Coag (PPP) [Time] 15.0 s High 9.0-14.9 [facility] ([place] Comment on above: Result Comment: Effective , Protime results may be affected by some antibiotics (i.e. Ci profloxacin, Azithromycin, Bactrim) which may potentiate the act ion of oral anticoagulants, with further increases in Protime /INR. Performed By: #### LAC #### [place] [address] ALCOHOL-BLOOD MEDICAL on 10-30-2022 Ethanol [Mass/Vol] mg/dL Normal 0 - 50 [facility] Comment on above: Performed By: #### [id number] ## ## [facility],[address] [place] [address] AMMONIA on 10-30-2022 Ammonia (P) [Moles/Vol] 110.0 umol/L High 11.0 - 32.0 [facility] Comment on above: Performed By: #### [id number] ## ## [facility],[address] [place] [address] CBC (NO DIFF) on 10-30-2022 CBC panel Auto (Bld) Normal [facility] Comment on above: Result Comment: CBC(WITHOUT DIFFERENTIAL) Performed By: #### [id number] ## ## [facility],[address] [place] [address] Erythrocyte distribution width 27.7 % High 12.0 - 15. 6 [facility] (RBC) [Ratio] [facility] Comment on above: Performed By: #### [id number] ## ## [facility],[address] [place], [place] [id number] Hematocrit (Bld) [Volume 41.3 % Normal 34.0 - 46.0 [facility] Comment on above: Performed By: #### [id number] ## ## [facility],[address] [place], [place] [id number] Hemoglobin (Bld) [Mass/Vol] 13.2 g/dL Normal 12.0 - 16.0 [facility] Comment on above: Performed By: #### [id number] ## ## [facility],[address] [place], [place] [id number] MCH (RBC) [Entitic mass] 26 pg Low 27 - 33 [facility] Comment on above: Performed By: #### [id number] ## ## [facility],[address] [place], [place] [id number] MCHC 32 X10 3 Normal 32 - 36 [facility] Comment on above: Performed By: #### [id number] ## ## [facility],[address] [place], [place] [id number] MCV (RBC) [Entitic vol] 82 fL Normal 80 - 99 [facility] Comment on above: Performed By: #### [id number] ## ## [facility],[address] [place] [address] PLATELET 84 x10EE3/UL Low 150 - 450 [facility] Comment on above: Performed By: #### [id number] ## ## [facility],[address] [place], [place] [id number] Platelet mean volume (Bld) 8.5 fL Normal 6.6 - 10.5 J oel [facility] [Entitic [facility]] [facility] Comment on above: Result Comment: {CB] Performed By: #### [id number] ## ## [facility],[address] [place] [address] RBC 5.03 x 10EE6/UL Normal 4.10 - 5.30 [facility] Comment on above: Performed By: #### [id number] ## ## [facility],[address] [place] [address]8500 WBC 4.1 x 10EE3/UL Low 4.5 - 10.8 [facility] Comment on above: Performed By: #### [id number] ## ## [facility],[address] [place] [address] CHEST 1 VIEW on 10-30-2022 CHEST 1 VIEW [place] [address] Patient: EVER MCKEON Phone#: : 1970 Age: 52 Gender: F Pt. Type: ER Account: [id number] Location: [facility] Ordering: SAW [place] Exam Date: 10/30/2022/19:10 Family Phys: Charge Code: [id number] Physician: [facility] Order #: [id number] Dose#: PROCEDURE: X-RAY CHEST 1 VIEW COMPARISON: [facility], XR, CHEST 1 VIEW, 10/02, 23:20. INDICATIONS: Cough. FINDINGS: LUNGS: Normal. No significant pulmonary parenchymal ab normalities. VASCULATURE: Mildly increased pulmonary vasculature. CARDIAC: Normal. No cardiac silhouette abnormality or cardiomegaly. MEDIASTINUM: Normal. No visible mass or adenopathy. PLEURA: Normal. No effusion or pleural thickening. BONES: Normal. No fracture or visible bony lesion. Mil d passive congestion. OTHER: Negative. CONCLUSION: Fibndings consistent with mild congestive heart failure Dictated by: Danette Welsh MD on 10/31/2022 at 14:10 Approved by: Danette Welsh MD on 10/31/2022 at 14:13 CMP with eGFR on 10-30-2022 AGE 52 years Normal [facility] Comment on above: Performed By: #### [id number] ## ##[facility],[address] [place] [address] Albumin [Mass/Vol] 3.6 g/dL Normal 3.4 - 5.0 [facility] Comment on above: Performed By: #### [id number] ## ##[facility],[address] [place] [address] Albumin/Globulin [Mass ratio] 0.9 {ratio} Normal 0.9 - 1.6 [facility] Comment on above: Performed By: #### [id number] ## ##[facility],[address] [place] [address] ALK PHOS 179 U/L High 46 - 116 [facility] Comment on above: Performed By: #### [id number] ## ##[facility],[address] [place] [address] 22026 ALT [Catalytic activity/Vol] 33 U/L Normal 14 - 59 [facility] Comment on above: Performed By: #### [id number] ## ##[facility],[address] [place] [address]10 Anion gap [Moles/Vol] 15 mmol/L Normal 10 - 20 [facility] Comment on above: Performed By: #### [id number] ## ##[facility],[address] [place] [address] 09159 AST [Catalytic activity/Vol] 47 U/L High 13 - 39 [facility] Comment on above: Performed By: #### [id number] ## ##[facility],[address] [place] [address] B/C RATIO 15 ratio Normal 0 - 30 [facility] Comment on above: Performed By: #### [id number] ## ##[facility],[address] [place] [address] 19872 Bilirubin [Mass/Vol] 1.2 mg/dL High 0.2 - 1.0 [facility] Comment on above: Performed By: #### [id number] ## ##[facility],[address] [place] [address] Calcium [Mass/Vol] 9.4 mg/dL Normal 8.5 - 10.1 [facility] Comment on above: Performed By: #### [id number] ## ##[facility],[address] [place] [address] Chloride [Moles/Vol] 108 mmol/L High 98 - 107 [facility] Comment on above: Performed By: #### [id number] ## ##[facility],[address] [place] [address] CMP with eGFR Normal [facility] Comment on above: Result Comment: COMPREHENSIV E METABOLIC PANEL Performed By: #### [id number] ## ##[facility],[address] [place] [address] 24780 CO2 [Moles/Vol] 24.0 mmol/L Normal 21.0 - 32.0 [facility] Comment on above: Performed By: #### [id number] ## ##[facility],[address] [place] [address]60 Creatinine [Mass/Vol] 0.67 mg/dL Normal 0.55 - 1.02 [facility] Comment on above: Performed By: #### [id number] ## ##[facility],[address] [place] [address]10 GFR/1.73 sq M.predicted mL/min/{1.73_m2} Normal 60 - 999 [facility] among non-blacks MDRD Hospit al (S/P/Bld) [Vol rate/Area] Comment on above: Performed By: #### [id number] ## ##[facility],[address] [place] [address] Result Comment: ACCORDING TO THE NATIONAL KIDNEY DISEASE EDUCATION PROGRAM(NKDE), A NORMAL eGFR IS A VALUE GREATER THAN OR E QUAL TO 60 ML/MIN/1.73 SQ METERS. CHRONIC KIDNEY DISEASE: <60m L/MIN/1.73 SQ METERS KIDNEY FAILURE: <15mL/MIN/1. 73 SQ METERS THIS TEST SHOULD ONLY BE USE D FOR PATIENTS 18 YEARS OF AGE AND OLDER. Globulin (S) [Mass/Vol] 4.0 g/dL High 1.5 - 3.8 [facility] Comment on above: Performed By: #### [id number] ## ##[facility],[address] [place] [address] Glucose [Mass/Vol] 95 mg/dL Normal 74 - 106 [facility] Comment on above: Performed By: #### [id number] ## ##[facility],[address] [place] [address] 78162 Potassium [Moles/Vol] 4.5 mmol/L Normal 3.5 - 5.1 [facility] Comment on above: Performed By: #### [id number] ## ##[facility],[address] [place] [address] 57289 Protein [Mass/Vol] 7.6 g/dL Normal 6.4 - 8.2 [facility] Comment on above: Performed By: #### [id number] ## ##[facility],[address] [place] [address] Sodium [Moles/Vol] 142 mmol/L Normal 136 - 145 [facility] Comment on above: Performed By: #### [id number] ## ##[facility],[address] [place] [address] 11988 Urea nitrogen [Mass/Vol] 10 mg/dL Normal 7 - 18 [facility] Comment on above: Performed By: #### [id number] ## ##[facility],[address] [place] [address] 11745 CORONAVIRUS PCR - [place]OU[place] on 3 SARS-CoV-2 (COVID-19) RNA Negative Normal NORMAL: NEGATIV E [facility] SAADIA+probe Ql (Unsp spec) Hos pital Comment on above: Performed By: #### [id number] ## ## [facility],[address] [place] [address] SEND TO ? YES Normal [facility] Comment on above: Result Comment: RESULTS FAXE D TO INFECTION CONTROL. SARS-CoV-2 THIS TEST IS BEING USED UNDE R THE FDA EUA PROCEDURE. THIS ASSAY HAS BEEN VALIDATED IN THE [facility] FOR USE WITH NASOPHARYNGEAL SPECIMENS IN [facility]. INTERPRETIVE DATA LABORATORY TEST RESULTS SHOU LD ALWAYS BE CONSIDERED IN THE CONTEXT OF CLINICAL OBSERVATIONS AND EPIDEMIOLOG ICAL DATA IN MAKING FINAL DIAGNOSIS AND PATIENT MANAGEMENT DECISIONS. PATIEN T MANAGEMENT SHOULD FOLLOW CURRENT CDC GUIDELINES. A POSITIVE TEST RESULT FOR C OVID-19 INDICATES THAT RNA FROM SARS-CoV-2 WAS DETECTED, AND THE PATIENT IS INFECTED WITH THE VIRUS AND PRESUMED TO BE CONTAGIOUS. A NEGATIVE TEST RESULT FOR T HIS TEST MEANS THAT SARS-CoV-2 RNA WAS NOT PRESENT IN THE SPECIMEN ABOVE THE LI CRISTY OF DETECTION. HOWEVER, A NEGATVIE RESULT DOES NOT RULE OUT COVID-19 AND SH OULD NOT BE USED THE SOLE BASIS FOR TREATMENT OR PATIENT MANAGEMENT DECISIONS . A NEGATIVE RESULT DOES NOT EXCLUDE THE POSSIBILITY OF COVID-19. WHEN DIAGNOSTIC TESTING IS N EGATIVE, THE POSSIBLILTY OF A FALSE NEGATIVE RESULT SHOULD BE CONSIDERED IN THE CONTEXT OF A PATIENT'S RECENT EXPOSURES AND THE PRESENCE OF CLINICAL SIGNS A ND SYMPTOMS CONSISTENT WITH COVID-19. THE POSSIBILITY OF A FALSE NEGAT COREEN RESULT SHOULD ESPECIALLY BE CONSIDERED IF THE PATIENT'S RECENT EXPOSURES O R CLINICAL PRESENTATION INDICATE THAT COVID-19 IS LIKELY, AND DIAGNOSTIC TESTS FOR OTHER CAUSES OF ILLNESS (e.g., OTHER RESPIRATORY ILLNESS) ARE NEG ATIVE. IF COVID-19 IS STILL SUSPECTED BASED ON EXPOSURE HISTORY TOGETHER WI TH OTHER CLINICAL FINDINGS, RE-TESTED SHOULD BE CONSIDERED BY HEALTHCARE [employer]ERS IN CONSULTATION WITH PUBLIC HEALTH AUTHORITIES. Performed By: #### [id number] ## ## [facility],[address] [place] [address] CT BRAIN W/O CONTRAST on 10-30-2022 CT BRAIN W/O CONTRAST [facility] Normal [place] [address] [place], [place] [address] Patient: EVER MCKEON Phone#: : 1970 Age: 52 Gender: F Pt. Type: ER Account: [id number] Location: 052 Ordering: PAULO GARCIA Exam Date: 10/30/2022/18:38 Family Phys: Charge Code: [id number] Physician: [facility] Order #: [id number] Dose#: [id number] PROCEDURE: CT BRAIN WITHOUT CONTRAST COMPARISON: [facility], CT, BRAIN W/O CON, 06/2022, 23:14. INDICATIONS: Altered mental status. TECHNIQUE: CT images were obtained without contrast de saman. All CT scans at this facilit y use dose modulation, iterative reconstruction, and/or weight based dosing when appropriate to reduce radiati on dose to as low as reasonably achievable. IV CONTRAST: No IV contrast used,0ml TOTAL DOSE: 52.30 CTDIvol(mGy) FINDINGS: CEREBRUM: No edema, hemorrha ge, mass, acute infarction, or inappropriate atrophy. CEREBELLUM: No edema, hemorr mar, mass, acute infarction, or inappropriate atrophy. BRAINSTEM: No edema, hemorrh age, mass, acute infarction, or inappropriate atrophy. CSF SPACES: Ventricles, cist erns, and sulci are appropriate for age. No hydrocephalus, subarachnoid hemorrhage, or mass. SKULL: No mass or other significant visible lesion. SINUSES: Limited views demonstrate no si gnificant mucosal thickening or fluid. ORBITS: Limited views are unremarkable. OTHER: Negative. CONCLUSION: No acute disease. Dictated by: Danette Welsh MD on 10/31/2022 at 16:06 Approved by: Danette Welsh MD on 10/31/2022 at 16:08 CULTURE BLOOD [DIANA] on 10-30-2022 Microscopic CULTURE BLOOD [DIANA] Ladi Maria examination of blood, _BLOOD CULTURE_ Mem [facility] culture GO TO [facility] REPORTS AND ATTACHMENTS FOR SCANNED REPO RT 11/06/[email or web address] Comment on above: Performed By: #### [id number] ## ## [facility],[address] [facility] [address] Microscopic CULTURE BLOOD [DIANA] Normal [facility] examination of blood, _BLOOD CULTURE_ [facility] culture [facility] RE[facility] AND [facility]ACH[facility] FOR SCANNED REPO RT 11/06/[email or web address] Comment on above: Performed By: #### [id number] ## ## [facility],[address] [facility] [address] DRUG SCREEN URINE MEDIC on 10-30-2022 AMPHETAMINES Negative Normal [facility] Comment on above: Performed By: #### [id number] ## ## [facility],[address] [place] [address]47 B-DIAZEPINES Negative [facility] Comment on above: Performed By: #### [id number] ## ## [facility],[address] [place] [address] 21490 BARBITURATES Negative [facility] Comment on above: Performed By: #### [id number] ## ## [facility],[address] [place] [address] 19973 COCAINE Negative [facility] Comment on above: Performed By: #### [id number] ## ## [facility],[address] [place] [address] 04716 DRUG SCREEN URINE MEDIC Normal [facility] Comment on above: Result Comment: DRUG SCREEN - URINE Performed By: #### [id number] ## ## [facility],[address] [facility] [address] METHADONE Negative [facility] Comment on above: Performed By: #### [id number] ## ## [facility],[address] [place] [address] 68455 OPIATES Negative [facility] Comment on above: Performed By: #### [id number] ## ## [facility],[address] [place] [address] 35981 PCP Negative Normal [facility] Comment on above: Performed By: #### [id number] ## ## [facility],[address] [place] [address] 35331 THC Negative Normal [facility] Comment on above: Result Comment: PATIENTS REC EIVING PROTON PUMP INHIBITORS MAY DEMONSTRATE FALSE POSITIVE THC/CANNABINOID RESULTS. AN ALTERNATIVE CONFIRMATORY METHOD SHOULD BE CONSIDERED TO VERIFY POSITIVE RESULTS. Performed By: #### [id number] ## ## [facility],[address] [place] [address]396 INFLUENZA VIRUS RAPID A/B on INFLUENZA VIRUS RAPID INFLUENZA A Normal Gigi oliver A/B POSITIVE [facility] INFLUENZA B NEGATIVE INTERNAL NEG QC PASS INTERNAL POS QC PASS EXTERNAL QC DONE? YES SEND TO IC? YES A NEGATIVE TEST RESULT DOES NOT EXCLUDE INFECTION WITH INFLUENZA A OR B. THEREFORE, THE RESULTS OBTAINED FROM THIS FLU TEST SHOULD BE USED IN CONJUCTION WITH CLINIC AL FINDINGS TO MAKE AN ACCURATE DIAGNOSIS. A POSITIVE RESULT DOES NOT RULE OUT CO-INFECTIONS WITH OTHER PATHOGENS OR IDENTIFY ANY SPECIFIC INFLUENZA A VIRUS SUBTYPE.CO-INFECTION WITH INFLUENZA A AND B IS R ARE. IT IS RECOMMENDED THAT DUAL POSITIVE RESULTS BE CONF IRMED BY VIRAL CULTURE OR AN FDA-CLEARED INFLUENZA A AND B MOLECULAR ASSAY. INDIVIDUALS WHO HAVE RECEIVED NASALLY ADMINISTERED INF LUENZA A VACCINE MAY TEST POSITIVE IN COMMERCIALLY AVAILABLE INFLUENZA RAPID DIAGNOSTIC TESTS FOR UP TO THREE DAYS. RESULT CRITICAL? YES { CALLED TO MARIYA/SHAUN { READ BACK BY Comment on above: Performed By: #### [id number] ## ## [facility],[address] [place] [address] 21911 LACTATE on 10-30-2022 Lactate [Moles/Vol] 1.0 mmol/L Normal 0.4 - 2.0 [facility] Comment on above: Performed By: #### [id number] ## ## [facility],[address] [place] [address] 21034 NT-proBNP on 10-30-2022 Natriuretic peptide B (Bld) 67 pg/mL Normal 0 - 125 [facility] [[facility]] [facility] Comment on above: Performed By: #### [id number] ## ##[facility],[address] [place] [address] 70531 TROPONIN I, HIGH SENSITIVITY on 023 HS TROPONIN 7.3 pg/mL Normal 0.0 - 51.4 [facility] Comment on above: Performed By: #### [id number] ## ## [facility],[address] [place] [address] 80715 URINALYSIS on 10-30-2022 Bilirubin Ql (U) Negative Normal NORMAL: NEGATIVE [facility] Comment on above: Performed By: #### [id number] ## ## [facility],[address] [place] [address]223 Clarity (U) clear Normal NORMAL: CLEAR [facility] Comment on above: Performed By: #### [id number] ## ## [facility],[address] [place] [address] 60924 Color (U) art Normal NORMAL: YELLOW [facility] Comment on above: Performed By: #### [id number] ## ## [facility],[address] [place] [address] 79707 Glucose Ql (U) NORM Normal NORMAL: NORMAL [facility] Comment on above: Performed By: #### [id number] ## ## [facility],[address] [place] [address] 93102 Hemoglobin Ql (U) Negative Normal NORMAL: NEGATIVE [facility] Comment on above: Performed By: #### [id number] ## ## [facility],[address] [place] [address] 59164 Ketone Negative Normal NORMAL: NEGATIVE [facility] Comment on above: Performed By: #### [id number] ## ## [facility],[address] [place] [address] 61679 Leukocytes Negative Normal NORMAL: NEGATIVE [facility] Comment on above: Performed By: #### [id number] ## ## [facility],[address] [facility] [address] Nitrite Ql (U) Negative Normal NORMAL: NEGATIVE [facility] Comment on above: Performed By: #### [id number] ## ## [facility],[address] [facility] [address] pH (U) 7 [pH] Normal NORMAL: 5.0-8.0 [facility] Comment on above: Performed By: #### [id number] ## ## [facility],[address] [facility] [address] Protein Ql (U) 15 Abnormal NORMAL: NEGATIVE [facility] Comment on above: Performed By: #### [id number] ## ## [facility],[address] [facility] [address] Sp [place] 1.005 Low NORMAL: 1.010-1.030 [facility] Comment on above: Performed By: #### [id number] ## ## [facility],[address] [place] [address]15 Specimen Type Void Normal [facility] Comment on above: Performed By: #### [id number] ## ## [facility],[address] [place] [address] 43344 Urinalysis dipstick W Reflex NOT INDICATED Normal [facility] Microscopic panel (U) Hospit al Comment on above: Performed By: #### [id number] ## ## [facility],[address] [facility] [address] Urobilinog 1 Abnormal NORMAL: NORMAL [facility] Comment on above: Performed By: #### [id number] ## ## [facility],[address] [facility] [address] Progress Note on 10-16-2022 Progress Note . Normal [facility] S [facility]stem [facility] E [facility] [facility] [address] Dept: [phone] Dept Visit type: Established patient Reason for Visit: Follow-up Assessment and Plan 1. Hepatic encephalopathy 2. Alcoholic cirrhosis, unspecified whether ascites pr esent (HCC) - Chronic, uncontrolled. Rec ommenrobbie continuing lactulose and scheduling her tests that were requested from [place] discharge instruction s. Patient plans on establishing with a new PCP and scalp treatment operator that are closer to her new home in [place] because she has difficulty getting to [place]. Follow up in about 3 months (around 01/14/2023). Subjective Patient presents today for hospital follow up. According to patient she was admitted at [place] 10/02- 10/07. Ran out of lactulose and developed ment al status changes. They found her to be anemic. Low iron and platelets. She states that she is needing to get a bone marrow biopsy and upper and lower GI. She states that she was given phone numbers to schedule. Unable to access records via Care Everywhere. Ever had a previous admissio n in May that was due to hepatic encephalopathy. At her follow up visit with me , plan was for her to continue lactulose 2-3 times day with target BM 's to 4 per day and she was referred to hepatology. She has not yet established with them due to moving to [facility] and not having a ride. She states that she is tryin g to establish with a new PCP closer to her home for follow up. Today she states that she is taking l actulose but it depends on if she needs to go somewhere whether she takes it. Review of Systems Constitutional: Negative for chills and fever. Respiratory: Negative for shortness of breath. Cardiovascular: Negative for chest pain. Gastrointestinal: Negative for blood in stool. Psychiatric/Behavioral: Negative for confusion. Allergies Allergen Reactions Dicyclomine Makes me crazy Hydrocodone-Acetaminophen Nausea And Vomiting Outpatient Medications Prior to Visit Medication Sig Dispense Refill albuterol 108 (90 Base) MCG/ ACT inhaler Inhale 2 puffs every 6 hours as needed. buPROPion XL (Wellbutrin XL) 150 MG 24 hr tablet Take 150 mg by mouth daily. busPIRone (Buspar) 10 MG tab let Take 10 mg by mouth 3 times daily as needed for anxiety. citalopram (CeleXA) 40 MG tablet Take 40 mg by mouth d aily. FeroSul 325 (65 Fe) MG tablet Take 1 tablet by mouth d aily (with breakfast). fluticasone (Flonase) 50 MCG/ACT nasal s pray instill 1 spray into each nostril in the morning furosemide (Lasix) 20 MG tablet Take 1 tablet by mouth daily. ibuprofen 800 MG tablet Take 800 mg by mouth. loratadine (Claritin) 10 MG tablet Take 10 mg by mouth every morning. mirtazapine (Remeron) 15 MG tablet Take 1 tablet by mo uth Nightly. prazosin (Minipress) 1 MG capsule Take 1 mg by mouth N ightly. QUEtiapine (SEROquel) 50 MG tablet Take 50 mg by mouth Nightly. No facility-administered medications prior to visit. Past Medical History: Diagnosis Date Anxiety Depression Environmental allergies GERD (gastroesophageal reflux disease) IBS (irritable bowel syndrome) BARBARA (iron deficiency anemia) Insomnia Social History Tobacco Use Smoking status: Former Packs/day: 0.50 Types: Cigarettes Start date: 10/25/1986 Quit date: 09/24/2018 Years since quittin.0 Smokeless tobacco: Never Substance Use Topics Alcohol use: Not Currently Past Surgical History: Procedure Laterality Date ANKLE SURGERY Right 2002 SECTION (HISTORICAL) 1990, 2005 CHOLECYSTECTOMY 1998 COLONOSCOPY 06/08/2019 Dr Guerrier HAND SURGERY Right 2000 SHOULDER SURGERY Right 2009 TOTAL KNEE ARTHROPLASTY Left 2018 UPPER GASTROINTESTINAL ENDOSCOPY 06/08/2019 Dr Guerrier UPPER GASTROINTESTINAL ENDOSCOPY 07/18/2020 Dr. Gaxiola Family History Problem Relation Name Age of Onset Hyperlipidemia Mother Depression Mother Cervical cancer Mother Allergies Mother Multiple sclerosis Son Breast cancer Maternal Grandmother Hypertension Mother Liver disease Neg Hx Cirrhosis Neg Hx COPD Mother Liver cancer Neg Hx Colon cancer Neg Hx Stomach cancer Neg Hx Objective There were no vitals taken for this visit. Physical Exam Vitals reviewed: virtual visit. Constitutional: Appearance: She is not ill-appearing. HENT: Head: Normocephalic. Pulmonary: Effort: Pulmonary effort is normal. No respiratory dis tress. Comments: Patient speaking in full and complete senten melquiades; no audible wheezing; no coughing during visit Neurological: General: No focal deficit present. Mental Status: She is alert and oriented to person, pl ahmet, and time. Psychiatric: Mood and Affect: Mood is anxious. Behavior: Behavior is hyperactive. Thought Content: Thought content normal. Data Reviewed and Summarized Labs: Imaging/Testing: Tim Drew, VOICE SYSTEMS ENGINEER - HAND HIDE STRETCHER EMERGENCY REPORT on 10-09-2022 EMERGENCY REPORT [facility] Normal Gigi P [facility] EMERGENCY ROOM REPORT NAME ACCOUNT SEX AGE ADMIT DISCHARGE PT MED. RECORD# NUMBER DATE DATE TYPE LINDA, [id number] F 51 10/02/22 10/03/22 3 [facility] [id number] ROOM: ER DATE OF : 1970 DICTATING PHYSICIAN: Saw River ADDENDUM DIAGNOSTIC DATA: White count was 4.1, hemoglobin 9.6, hematocrit 31.5, platelet count was 99,000. Sodium 145, potassium 3.5, chloride 113, CO2 23.3, BUN 10, creatinine 0.84, glucose 203 . AST is 38. ALT is 31. Alk phos 189. Total bilirubin 0.7. Ammonia level was elevated a t 115. Lactate level was elevated at 3.0. We are giving the patient IV fluids here. Anion gap was normal at 12. Troponin was normal at 6.5. I do have 2 blood cultures pendin g. Her BNP came back normal at 19. Acetaminophen level was less than 2.0. Salicylat e level was 0.3. Blood alcohol was normal at less than 3 mg/dL. Her COVID swab here was negative. Her EKG was done at [address] It showed a normal sinus rhythm at a rate of 94 beats per minute. No acute S T segment changes are noted. [place] is approximately [address] scan of the brain showed no acute disease. No CT evidence of any acute cortical CVA, mass effect, intracrani al hemorrhage or skull fracture. Ventricular volume normal for age. CT scan of the abdomen and p maggi did show a nodular service contour to the liver, most consistent with underlying hepatocellular disease . Small liver size. Cholecystectomy clips were n oted in the right upper quadrant which is consistent with the patient's history. Enlar ged spleen noted to measure 17.8 cm in length. No acute process seen in the pancreas , adrenal glands and kidneys. There was some mild left colon and sigmoid colon dive rticulosis but no free air or free fluid. No abscess or hematoma. No features to sug gest acute appendicitis. No bowel or renal obstruction. No abdominal aortic aneurysm or retroperitoneal hemorrhage. Mild enlarged heart size. EMERGENCY DEPARTMENT COURSE AND TREATMENT: I did give the patient lactulose 30 mL p.o. here. I did discuss the case with Dr. Melgar, our hospitalist front edger but he felt that the patient should be transferred to a higher level of care. I did talk to [facility]. They presently h ave no beds right now. They can put us on a waiting list, which they did. I also spoke with [facility] and Dr. Garcia, the hospitalist front edger [facility] did accept the patie nt for admission to their stepdown unit with a monitored bed. They do not have a bed right now but they do anticipate having a bed later this morning. At this point, it looks like the patient will be admitted to [facility] once we obtain Page 1 of 2 [facility] Room Report [facility] : 1970 a bed assignment. The patien t has remained in a clinically stable condition. She is still confused. She will talk to y ou but she just really does not make any sense. She does not directly answer any of y our questions but she is ambulatory. She gets up and walks. DIAGNOSES: 1. Altered mental status. 2. Hepatic encephalopathy. 3. Hepatocellular disease. PLAN/DISPOSITION: At this po int we are waiting for a bed assignment and will most likely admit the patient to [facility]. Please see the written document for final patient disposition. Dictated By: Saw River DO 10/03/22 05:15 JOB #: [id number] Transcribed By: mike 10/04/22 07:48 Electronically signed by: E-Sign: Dr. Saw River D.O. 10/09/22 06:47 Page 2 of 2 [facility] Emergency Room Report EMERGENCY REPORT [facility] Normal Gigi P [facility] EMERGENCY ROOM REPORT NAME ACCOUNT SEX AGE ADMIT DISCHARGE PT MED. RECORD# NUMBER DATE DATE TYPE LINDA [id number] F 51 10/02/22 10/03/22 3 [facility] [id number] ROOM: ER DATE OF : 1970 DICTATING PHYSICIAN: Saw River DATE SEEN: October 02, 2022 TIME SEEN: 2250 hours HISTORY OF PRESENT ILLNESS: This is a 51-year-old whit e female. Family has noticed the patient has been confused all day today and has altered mental status. She has just been very confu sed. At times she really cannot comprehend what the family is asking her. The br other noticed that she would come in his room and turn the light on and then turn off a nd turn it back again and he would ask her what are you doing and she could not comp rehend why he would be asking her what she is doing. She obviously just did not r emember she was turning the light on and off. The family tried to get her to take her medications tonight but she would not take them. She admits she is not taking her medications but she cannot tell really anybody how long that has been the case. Brina torres noticed too that they just could not get a straight answer from her. She will ju st kind of meander on with an answer that does not make a whole lot of sense. She prado s not fallen. Family states she does stumble a lot but she has not fallen and they noti dustin that she has had a little bit of a resting tremor and been shaky for the past 3 - 4 day s. She has complained of being short of breath but her pulse oxygenation is noted t o be 99% in triage on room air and she has complained of some chest pain but it was v loretta vague. She could not tell me where it was at or what it felt like. She does have a h istory of cirrhosis of the liver. She has a long history of alcoholism. Brother states t hat she was sober for 13 years and then relapsed and this time she has been sober for about 8 months. PAST MEDICAL HISTORY: Alcohol abuse and from the patient's family description sounds like she does have a history of cirrhosis of the liver. She also has a history of depression and anxiety. She has a history of irritable bowel syndrome. PAST SURGICAL HISTORY: Left total knee replacement. Edmund giraldo has had a , tubal ligation. Old charts indicate she has had a cholecystectomy in the past. SOCIAL HISTORY: She presentl y denies any alcohol or drug use. But does admit to a history of alcoholism and prado s been sober this time for about 8 months according to family. REVIEW OF SYSTEMS: Does admit to some chest pain and s hortness of breath. Denies any cough, sputum, wh eezing, abdominal pain, nausea, vomiting, diarrhea, constipation, melena, hematochezia, head ache, numbness. Does admit to unsteady Page 1 of 3 [facility] Report [facility] : 1970 gait and weakness and fatigu e but denies any neck or back pain, joint pain, skin rash or swelling. Family admits to t patient being confused and exhibiting an altered mental status. Further review of systems negative. PHYSICAL EXAMINATION: Temperature 98.8, pulse 110, res pirations 18, blood pressure 184/88. Weight 240 pounds. PCP is Meghana Drew. Patient is alert, awake. She is oriented to na me but confused to time and place. She will answer your questions but mainly yes or no and when you start to ask her for details she will start to become very vague and wander off and really cannot answer your questions. But she is awake and looking about t room. HEENT: Head appears atraumatic. Pupils are equal and reactive to light. Red reflexes intact bilaterally. Extraocular muscles are intact. No conjunctival inje ction. Ears: TM's intact bilaterally. No erythema noted. No external auditory canal edema or bleeding. Nose exh ibits no rhinorrhea or epistaxis. Mouth: Mucous membranes are mildly dry. No pharyngeal erythema. Uvula is midline and elevates. Neck is supple wi th trachea midline. No JVD or lymphadenopathy. No posterio r cervical tenderness. No nuchal rigidity. Lungs are clear to auscultation bilate rally. No adventitious sounds are noted. No accessory muscle use noted. CV: Heart rate and rhythm is regular . No murmur noted. Abdomen is soft, obese, nont kike with normoactive bowel sounds x4 quadrants. No guarding or rigidity. No rebound. No palpable abdomina l masses. No hepatosplenomegaly. Back exh ibits no midline or paraspinal region tenderness. No increased paraspinal muscle rigidity. Negative Yaron's sign. Extremities: No edema or cyanosis. Peripheral puls es are intact. No motor or sensory deficits are noted. Hand chief of party is strong, symmetric. Skin is somewhat pale but warm and dry. No diaphoresis or rash. Neurolo gic examination shows the patient to be awake, alert, oriented to name only. Disor iented to time and place. She is a very vague historian. Cannot really answer any of your questions with any detail. Pretty much will just say yes or no in response to questions. Her (more content not included)... .Auto Diff on 10-07-2022 Basophil, Absolute 0.0 10 3/mcL Normal 0.0-0.3 [facility] ([place]) Comment on above: Performed By: #### CMP, GFR, AMM, LAC, HEPAC #### [address] [address] Basophils/100 WBC (Bld) 0.8 % Normal 0.0-2.5 [facility] ([place]) Comment on above: Performed By: #### CMP, GFR, AMM, LAC, HEPAC #### [address] [address] Eosinophil, Absolute 0.4 10 3/mcL Normal 0.0-0.7 [facility] ([place]) Comment on above: Performed By: #### CMP, GFR, AMM, LAC, HEPAC #### [address] [address] Eosinophils/100 WBC (Bld) 9.6 % High 0.0-6.0 [facility] ([place]) Comment on above: Performed By: #### CMP, GFR, AMM, LAC, HEPAC #### [address] [address] Lymphocyte, Absolute 0.9 10 3/mcL Normal 0.9-4.3 [facility] ([place]) Comment on above: Performed By: #### CMP, GFR, AMM, LAC, HEPAC #### [address] [address] Lymphocytes/100 WBC (Bld) 22.9 % Normal 20.0-40.0 [facility] ([place]) Comment on above: Performed By: #### CMP, GFR, AMM, LAC, HEPAC #### [address] [address] Monocyte, Absolute 0.7 10 3/mcL Normal 0.1-1.4 [facility] ([place]) Comment on above: Performed By: #### CMP, GFR, AMM, LAC, HEPAC #### [address] [address] Monocytes/100 WBC (Bld) 16.4 % High 2.0-13.0 [facility] ([place]) Comment on above: Performed By: #### CMP, GFR, AMM, LAC, HEPAC #### [address] [address] Neutrophils/100 WBC (Bld) 50.3 % Normal 50.0-75.0 [facility] ([place]) Comment on above: Performed By: #### CMP, GFR, AMM, LAC, HEPAC #### [address] [address] .GFR on 10-07-2022 GFR Non- >60 Normal [facility] ([place]) Comment on above: Result Comment: GFR Population mean for Afri can Chinese, Non- Americans Ages 20-29 = 116 mL/min/1.73 sq.m. Ages 30-39 = 107 mL/min/1.73 sq.m. Ages 40-49 = 99 mL/min/1.73 sq.m. Ages 50-59 = 93 mL/min/1.73 sq.m. Ages 60-69 = 85 mL/min/1.73 sq.m. Ages 70+ = 75 mL/min/1.73 sq .m. Chronic Kidney Disease: Less than 60 mL/min/1.73 square meters End Stage Renal Disease: Les s than 15 mL/min/1.73 square meters Performed By: #### CMP, GFR, AMM, LAC, HEPAC #### [address] [address] GFR >60 Normal [facility] ([place]) Comment on above: Result Comment: GFR Population mean for Afri can Chinese, Non- Americans Ages 20-29 = 116 mL/min/1.73 sq.m. Ages 30-39 = 107 mL/min/1.73 sq.m. Ages 40-49 = 99 mL/min/1.73 sq.m. Ages 50-59 = 93 mL/min/1.73 sq.m. Ages 60-69 = 85 mL/min/1.73 sq.m. Ages 70+ = 75 mL/min/1.73 sq .m. Chronic Kidney Disease: Less than 60 mL/min/1.73 square meters End Stage Renal Disease: Les s than 15 mL/min/1.73 square meters Performed By: #### CMP, GFR, AMM, LAC, HEPAC #### [address] [address] .NEUABS on 10-07-2022 Neutrophil, Absolute 2.0 10 3/mcL Low 2.3-8.1 [facility] ([place]) Comment on above: Performed By: #### CMP, GFR, AMM, LAC, HEPAC #### [address] [address] AMM on 10-07-2022 Ammonia 69 mcmol/l High 11-32 [facility] ([place]) Comment on above: Result Comment: Specimen sli ghtly hemolyzed. Performed By: #### CMP, GFR, AMM, LAC, HEPAC #### [address] [address] CBC on 10-07-2022 Erythrocyte distribution width 18.1 % High 11.5-15.5 [facility] ([place]) (RBC) [Ratio] Comment on above: Performed By: #### CMP, GFR, AMM, LAC, HEPAC #### [address] [address] Hematocrit (Bld) [Volume 29.5 % Low 34.0-46.0 [facility] ([place]) fraction] Comment on above: Performed By: #### CMP, GFR, AMM, LAC, HEPAC #### [address] [address] Hgb 9.3 G/dL Low 12.0-16.0 [facility] ([place]) Comment on above: Performed By: #### CMP, GFR, AMM, LAC, HEPAC #### [address] [address] MCH (RBC) [Entitic mass] 23.2 pg Low 27.0-33.0 l [facility] ([place]) Comment on above: Performed By: #### CMP, GFR, AMM, LAC, HEPAC #### [place] [address] MCHC 31.5 G/dL Low 32.0-36.0 [facility] ([place]) Comment on above: Performed By: #### CMP, GFR, AMM, LAC, HEPAC #### [place] [address] MCV (RBC) [Entitic vol] 73.6 fL Low 80.0-99.0 [facility] ([place]) Comment on above: Performed By: #### CMP, GFR, AMM, LAC, HEPAC #### [place] [address] Platelet 82 10 3/mcL Low 150-450 [facility] ([place]) Comment on above: Performed By: #### CMP, GFR, AMM, LAC, HEPAC #### [place] [address] Platelet mean volume (Bld) 9.1 fL Normal 6.6-10.5 A [facility] ([place]) [Entitic vol] Comment on above: Performed By: #### CMP, GFR, AMM, LAC, HEPAC #### [place] [address] RBC 4.01 10 6/mcL Low 4.10-5.30 [facility] ([place]) Comment on above: Performed By: #### CMP, GFR, AMM, LAC, HEPAC #### [place] [address] WBC 4.0 10 3/mcL Low 4.5-10.8 [facility] ([place]) Comment on above: Performed By: #### CMP, GFR, AMM, LAC, HEPAC #### [place] [address] CMP on 10-07-2022 Albumin Level 3.4 G/dL Normal 3.2-4.8 [facility] ([place]) Comment on above: Performed By: #### CMP, GFR, AMM, LAC, HEPAC #### [facility] [address] [place], [place] [address] Albumin/Globulin [Mass ratio] 1.3 {ratio} Normal 0.9-1.6 [facility] ([place]) Comment on above: Performed By: #### CMP, GFR, AMM, LAC, HEPAC #### [address] [address] ALP [Catalytic activity/Vol] 122 U/L Normal 38-126 [facility] ([place]) Comment on above: Performed By: #### CMP, GFR, AMM, LAC, HEPAC #### [address] [address] ALT [Catalytic activity/Vol] 26 U/L Normal 10-49 [facility] ([place]) Comment on above: Performed By: #### CMP, GFR, AMM, LAC, HEPAC #### [address] [address] AST [Catalytic activity/Vol] 56 U/L High 8-34 [facility] ([place]) Comment on above: Performed By: #### CMP, GFR, AMM, LAC, HEPAC #### [address] [address] Bili Total 0.70 mg/dL Normal 0.20-1.20 [facility] ([place]) Comment on above: Result Comment: Use of this assay is not recommended for patients undergoing treatment with eltrombopag d ue to the potential for falsely elevated results. Performed By: #### CMP, GFR, AMM, LAC, HEPAC #### [place] [id number] BUN/Creatinine Ratio 16.4 ratio Normal 10.0-22.0 [facility] ([place] Comment on above: Performed By: #### CMP, GFR, AMM, LAC, HEPAC #### [address] [address] Calcium [Mass/Vol] 9.5 mg/dL Normal 8.7-10.4 [facility] ([place]) Comment on above: Performed By: #### CMP, GFR, AMM, LAC, HEPAC #### [address] [address] Chloride [Moles/Vol] 110 mmol/L Normal 98-110 [facility] ([place]) Comment on above: Performed By: #### CMP, GFR, AMM, LAC, HEPAC #### [address] [address] CO2 [Moles/Vol] 28 mmol/L Normal 22-32 [facility] Comment on above: Performed By: #### CMP, GFR, AMM, LAC, HEPAC #### [address] [address] Creatinine [Mass/Vol] 0.61 mg/dL Normal 0.50-1.20 [facility] ([place]) Comment on above: Performed By: #### CMP, GFR, AMM, LAC, HEPAC #### [address] [address] Electrolyte Balance 7.0 mEq/L Normal 4.0-15.0 [facility] ([place]) Comment on above: Performed By: #### CMP, GFR, AMM, LAC, HEPAC #### [address] [address] Globulin 2.6 G/dL Normal 1.5-3.8 [facility] ([place]) Comment on above: Performed By: #### CMP, GFR, AMM, LAC, HEPAC #### [address] [address] Glucose [Mass/Vol] 81 mg/dL Normal 70-110 [facility] ([place]) Comment on above: Performed By: #### CMP, GFR, AMM, LAC, HEPAC #### [address] [address] Potassium [Moles/Vol] 3.6 mmol/L Normal 3.5-5.0 [facility] ([place]) Comment on above: Performed By: #### CMP, GFR, AMM, LAC, HEPAC #### [address] [address] Sodium [Moles/Vol] 145 mmol/L Normal 136-145 [facility] ([place]) Comment on above: Performed By: #### CMP, GFR, AMM, LAC, HEPAC #### [place] [address] [address] [place], [place] [id number] Total Protein 6.0 G/dL Normal 5.7-8.2 [facility] ([place]) Comment on above: Result Comment: Note - New Reference Range in effect 20 Performed By: #### CMP, GFR, AMM, LAC, HEPAC #### [place] [id number] Urea nitrogen [Mass/Vol] 10.0 mg/dL Normal 8.0-22.0 [facility] ([place]) Comment on above: Performed By: #### CMP, GFR, AMM, LAC, HEPAC #### [place] [id number] ENDO on 10-07-2022 TGT Ab (IGA) <20.0 Normal <=20.0 [facility] ([place]) Comment on above: Result Comment: Effective : Evaluation of Transglutamina se Ab (IgA) results: Negative: Less than 20 Weak positive: 20 to 30 Positive: Greater than 30 Transglutaminase Ab is prese nt in approximately 95% to 100% of patients with celiac dise ase and 80% of patients with dermatitis herpetiformis. Th e antibody is rarely found in other conditions. Transgluta minase Ab levels will decrease or increase depending on the removal or reintroduction of gluten into the diet. Patien ts who are IgA deficient develop celiac disease more frequent ly than individuals who have an intact IgA system. Therefore , gliadin and transglutaminase IgA antibodies may be absent in patients with celiac disease. IgG antibodies to gliadin ar e especially helpful in IgA deficient patients. These test results were obta ined with the [employer] Lite h-tTG IgA ZINA. h-tTG IgA v alues obtained with different manufacturers' assay methods may not be used interchangeably. Performed By: #### LAC #### [place] [address] LABORATORY Ordered By: SYSTEM SYSTEM on 10-07-2022 Albumin BCP dye 3.4 G/dL Invalid Interpretation 3.2 - 4.8 G/dL AH ADM SS [Mass/Vol] Code Albumin/Globulin [Mass 1.3 {ratio} Invalid Interpretation 0.9 - 1. 6 ratio AH ADM SS ratio] Code ALP [Catalytic 122 U/L Invalid Interpretation 38 - 126 U/L AH ADM SS activity/Vol] Code ALT No additional 26 U/L Invalid Interpretation 10 - 49 U/L AH ADM SS P-5'-P [Catalytic Code activity/Vol] Ammonia (P) 69 umol/L Invalid Interpretation 11 - 32 mcmol/L AH ADM SS [Moles/Vol] Code Comment on above: Result Comment: Specimen sli ghtly hemolyzed. AST [Catalytic 56 U/L Invalid Interpretation 8 - 34 U/L AH ADM SS activity/Vol] Code Basophils (Bld) 0.0 103/mcL Invalid Interpretation 0.0 - 0.3 Workflow SS [#/Vol] Code 10^3/mcL Basophils/100 WBC 0.8 % Invalid Interpretation 0.0 - 2.5 % Workflow SS (Bld) Code Bilirubin [Mass/Vol] 0.70 mg/dL Invalid Interpretation 0.20 - 1.2 0 ADM SS Code mg/dL Calcium [Mass/Vol] 9.5 mg/dL Invalid Interpretation 8.7 - 10.4 AH ADM SS Code mg/dL Chloride [Moles/Vol] 110 mmol/L Invalid Interpretation 98 - 110 AH ADM SS Code mEq/L CO2 [Moles/Vol] 28 mmol/L Invalid Interpretation 22 - 32 mEq/L A H ADM SS Code Creatinine [Mass/Vol] 0.61 mg/dL Invalid Interpretation 0.50 - 1. 20 AH ADM SS Code mg/dL Electrolyte Balance 7.0 mEq/L Invalid Interpretation 4.0 - 15.0 AH ADM SS Code mEq/L Eosinophils (Bld) 0.4 103/mcL Invalid Interpretation 0.0 - 0.7 Workflow SS [#/Vol] Code 10^3/mcL Eosinophils/100 WBC 9.6 % Invalid Interpretation 0.0 - 6.0 % Workflow SS (Bld) Code Erythrocyte 18.1 % Invalid Interpretation 11.5 - 15.5 % W orkflow SS distribution width Code (RBC) [Ratio] GFR/1.73 sq ml/min/1.73sq Invalid Interpretation C hemistry S M.predicted among m Code blacks MDRD (S/P/Bld) [Vol rate/Area] GFR/1.73 sq ml/min/1.73sq Invalid Interpretation C hemistry S M.predicted among m Code non-blacks MDRD (S/P/Bld) [Vol rate/Area] Globulin 2.6 G/dL Invalid Interpretation 1.5 - 3.8 AD M SS Code G/dL Glucose [Mass/Vol] 81 mg/dL Invalid Interpretation 70 - 110 ADM SS Code mg/dL Hematocrit (Bld) 29.5 % Invalid Interpretation 34.0 - 46.0 % Workflow SS [Volume fraction] Code Hemoglobin (Bld) 9.3 G/dL Invalid Interpretation 12.0 - 16.0 A H Workflow SS [Mass/Vol] Code G/dL Lymphocytes (Bld) 0.9 103/mcL Invalid Interpretation 0.9 - 4.3 Workflow SS [#/Vol] Code 10^3/mcL Lymphocytes/100 WBC 22.9 % Invalid Interpretation 20.0 - 40.0 % Workflow SS (Bld) Code Magnesium [Mass/Vol] 2.0 mg/dL Invalid Interpretation 1.6 - 2.4 ADM SS Code mg/dL MCH (RBC) [Entitic 23.2 pg Invalid Interpretation 27.0 - 33.0 Workflow SS mass] Code pg MCHC 31.5 G/dL Invalid Interpretation 32.0 - 36.0 Wo rkflow SS Code G/dL MCV (RBC) [Entitic 73.6 fL Invalid Interpretation 80.0 - 99.0 Workflow SS vol] Code fL Monocytes (Bld) 0.7 103/mcL Invalid Interpretation 0.1 - 1.4 Workflow SS [#/Vol] Code 10^3/mcL Monocytes/100 WBC 16.4 % Invalid Interpretation 2.0 - 13.0 % Workflow SS (Bld) Code Neutrophils (Bld) 2.0 103/mcL Invalid Interpretation 2.3 - 8.1 Workflow SS [#/Vol] Code 10^3/mcL Neutrophils/100 WBC 50.3 % Invalid Interpretation 50.0 - 75.0 % Workflow SS (Bld) Code Platelet mean volume 9.1 fL Invalid Interpretation 6.6 - 10.5 fL Workflow SS (Bld) [Entitic vol] Code Platelets (Bld) 82 103/mcL Invalid Interpretation 150 - 450 Workflow SS [#/Vol] Code 10^3/mcL Potassium [Moles/Vol] 3.6 mmol/L Invalid Interpretation 3.5 - 5.0 AH ADM SS Code mEq/L Protein [Mass/Vol] 6.0 G/dL Invalid Interpretation 5.7 - 8.2 AH ADM SS Code G/dL RBC (Bld) [#/Vol] 4.01 106/mcL Invalid Interpretation 4.10 - 5.30 AH Workflow SS Code 10^6/mcL Sodium [Moles/Vol] 145 mmol/L Invalid Interpretation 136 - 145 AH ADM SS Code mEq/L Urea nitrogen 10.0 mg/dL Invalid Interpretation 8.0 - 22.0 AH A DM SS [Mass/Vol] Code mg/dL Urea 16.4 ratio Invalid Interpretation 10.0 - 22.0 AH AD M SS nitrogen/Creatinine Code ratio [Mass ratio] WBC (Bld) [#/Vol] 4.0 103/mcL Invalid Interpretation 4.5 - 10.8 Workflow SS Code 10^3/mcL LABORATORY Ordered By: Omari Edwards on 10-07-2022 INR Coag (PPP) 1.3 {INR} Invalid Interpretation AH Auto Coag [Relative time] Code SS PT Coag (PPP) [Time] 15.7 s Invalid Interpretation 9.0 - 14.9 Auto Coag Code seconds SS MG on 10-07-2022 Magnesium [Mass/Vol] 2.0 mg/dL Normal 1.6-2.4 [facility] ([place] Comment on above: Performed By: #### CMP, GFR, AMM, LAC, HEPAC #### [place] [address] PRO on 10-07-2022 INR Coag (PPP) [Relative time] 1.3 {INR} Normal [facility] ([place] Comment on above: Result Comment: [employer] (CHEST, 1992, 102:[id number]) recommended therapeutic rang e for oral anticoagulant therapy is: LOW RISK: Prophylaxis of starr ous thrombosis INR: 2.0-3.0 Treatment of pulmonary embol ism 2.0-3.0 Prevention of systemic embol ism 2.0-3.0 HIGH RISK: Mechanical prosth etic valves 2.5-3.5 Performed By: #### CMP, GFR, AMM, LAC, HEPAC #### [address] [address] PT Coag (PPP) [Time] 15.7 s High 9.0-14.9 [facility] ([place] Comment on above: Result Comment: Effective , Protime results may be affected by some antibiotics (i.e. Ci profloxacin, Azithromycin, Bactrim) which may potentiate the act ion of oral anticoagulants, with further increases in Protime /INR. Performed By: #### CMP, GFR, AMM, LAC, HEPAC #### [address] [address] .Auto Diff on 10-06-2022 Basophil, Absolute 0.0 10 3/mcL Normal 0.0-0.3 [facility] ([place] Comment on above: Performed By: #### CMP, GFR, AMM, LAC, HEPAC #### [address] [address] Basophils/100 WBC (Bld) 1.1 % Normal 0.0-2.5 [facility] ([place] Comment on above: Performed By: #### CMP, GFR, AMM, LAC, HEPAC #### [address] [address] Eosinophil, Absolute 0.3 10 3/mcL Normal 0.0-0.7 [facility] ([place] Comment on above: Performed By: #### CMP, GFR, AMM, LAC, HEPAC #### [address] [address] Eosinophils/100 WBC (Bld) 9.2 % High 0.0-6.0 [facility] ([place] Comment on above: Performed By: #### CMP, GFR, AMM, LAC, HEPAC #### [address] [address] Lymphocyte, Absolute 0.7 10 3/mcL Low 0.9-4.3 [facility] ([place] Comment on above: Performed By: #### CMP, GFR, AMM, LAC, HEPAC #### [address] [address] Lymphocytes/100 WBC (Bld) 24.2 % Normal 20.0-40.0 [facility] ([place] Comment on above: Performed By: #### CMP, GFR, AMM, LAC, HEPAC #### [address] [address] Monocyte, Absolute 0.5 10 3/mcL Normal 0.1-1.4 [facility] ([place] Comment on above: Performed By: #### CMP, GFR, AMM, LAC, HEPAC #### [address] [address] Monocytes/100 WBC (Bld) 15.9 % High 2.0-13.0 [facility] ([place] Comment on above: Performed By: #### CMP, GFR, AMM, LAC, HEPAC #### [address] [address] Neutrophils/100 WBC (Bld) 49.6 % Low 50.0-75.0 [facility] ([place] Comment on above: Performed By: #### CMP, GFR, AMM, LAC, HEPAC #### [address] [address] .GFR on 10-06-2022 GFR >60 Normal [facility] ([place] Comment on above: Result Comment: GFR Population mean for Afri can Chinese, Non- Americans Ages 20-29 = 116 mL/min/1.73 sq.m. Ages 30-39 = 107 mL/min/1.73 sq.m. Ages 40-49 = 99 mL/min/1.73 sq.m. Ages 50-59 = 93 mL/min/1.73 sq.m. Ages 60-69 = 85 mL/min/1.73 sq.m. Ages 70+ = 75 mL/min/1.73 sq .m. Chronic Kidney Disease: Less than 60 mL/min/1.73 square meters End Stage Renal Disease: Les s than 15 mL/min/1.73 square meters Performed By: #### CMP, GFR, AMM, LAC, HEPAC #### [address] [address] GFR Non- >60 Normal [facility] ([place] Comment on above: Result Comment: GFR Population mean for Afri can Chinese, Non- Americans Ages 20-29 = 116 mL/min/1.73 sq.m. Ages 30-39 = 107 mL/min/1.73 sq.m. Ages 40-49 = 99 mL/min/1.73 sq.m. Ages 50-59 = 93 mL/min/1.73 sq.m. Ages 60-69 = 85 mL/min/1.73 sq.m. Ages 70+ = 75 mL/min/1.73 sq .m. Chronic Kidney Disease: Less than 60 mL/min/1.73 square meters End Stage Renal Disease: Les s than 15 mL/min/1.73 square meters Performed By: #### CMP, GFR, AMM, LAC, HEPAC #### [address] [address] .MITOT on 10-06-2022 Mitochondrial Ab Titer Pos 320 or > Normal [facility] ([place] Comment on above: Result Comment: An Anti-ora chondrial Antibody (AMA) titer of 1:160 or greater is seen in more than 90% of patients with Primary Biliary Cirrhosis (PBC). AMA may be seen in low titers in 25%-30% of patients with Chronic Active Hepatitis or Cryptogenic Cirrhosis. Performed By: #### LAC #### [address] [address] .NEUABS on 10-06-2022 Neutrophil, Absolute 1.5 10 3/mcL Low 2.3-8.1 [facility] ([place] Comment on above: Performed By: #### CMP, GFR, AMM, LAC, HEPAC #### [address] [address] AMM on 10-06-2022 Ammonia 217 mcmol/l High 11-32 [facility] ([place] Comment on above: Performed By: #### CMP, GFR, AMM, LAC, HEPAC #### [address] [address] CBC on 10-06-2022 Erythrocyte distribution width 18.2 % High 11.5-15.5 [facility] ([place] (RBC) [Ratio] Comment on above: Performed By: #### CMP, GFR, AMM, LAC, HEPAC #### [place] [phone] Hematocrit (Bld) [Volume 28.1 % Low 34.0-46.0 [facility] ([place] fraction] Comment on above: Performed By: #### CMP, GFR, AMM, LAC, HEPAC #### [place] [phone] Hgb 8.7 G/dL Low 12.0-16.0 [facility] ([place] Comment on above: Performed By: #### CMP, GFR, AMM, LAC, HEPAC #### [place] [phone] MCH (RBC) [Entitic mass] 22.8 pg Low 27.0-33.0 [facility] ([place] Comment on above: Performed By: #### CMP, GFR, AMM, LAC, HEPAC #### [place] [id number] MCHC 31.0 G/dL Low 32.0-36.0 [facility] ([place] Comment on above: Performed By: #### CMP, GFR, AMM, LAC, HEPAC #### [place] [phone] MCV (RBC) [Entitic vol] 73.7 fL Low 80.0-99.0 [facility] ([place] Comment on above: Performed By: #### CMP, GFR, AMM, LAC, HEPAC #### [place] [phone] Platelet 68 10 3/mcL Low 150-450 [facility] ([place] Comment on above: Performed By: #### CMP, GFR, AMM, LAC, HEPAC #### [place] [address] Platelet mean volume (Bld) 8.5 fL Normal 6.6-10.5 [facility] ([place] [Entitic vol] Comment on above: Performed By: #### CMP, GFR, AMM, LAC, HEPAC #### [address] [address] RBC 3.81 10 6/mcL Low 4.10-5.30 [facility] ([place] Comment on above: Performed By: #### CMP, GFR, AMM, LAC, HEPAC #### [address] [address] WBC 3.0 10 3/mcL Low 4.5-10.8 [facility] ([place] Comment on above: Performed By: #### CMP, GFR, AMM, LAC, HEPAC #### [address] [address] CMP on 10-06-2022 Albumin Level 3.5 G/dL Normal 3.2-4.8 [facility] ([place] Comment on above: Performed By: #### CMP, GFR, AMM, LAC, HEPAC #### [address] [address] Albumin/Globulin [Mass ratio] 1.3 {ratio} Normal 0.9-1.6 [facility] ([place] Comment on above: Performed By: #### CMP, GFR, AMM, LAC, HEPAC #### [address] [address] ALP [Catalytic activity/Vol] 124 U/L Normal 38-126 [facility] ([place] Comment on above: Performed By: #### CMP, GFR, AMM, LAC, HEPAC #### [address] [address] ALT [Catalytic activity/Vol] 22 U/L Normal 10-49 [facility] ([place] Comment on above: Performed By: #### CMP, GFR, AMM, LAC, HEPAC #### [address] [address] AST [Catalytic activity/Vol] 38 U/L High 8-34 [facility] ([place] Comment on above: Performed By: #### CMP, GFR, AMM, LAC, HEPAC #### [address] [address] Bili Total 0.70 mg/dL Normal 0.20-1.20 [facility] ([place] Comment on above: Result Comment: Use of this assay is not recommended for patients undergoing treatment with eltrombopag d ue to the potential for falsely elevated results. Performed By: #### CMP, GFR, AMM, LAC, HEPAC #### [address] [address] BUN/Creatinine Ratio 17.5 ratio Normal 10.0-22.0 [facility] ([place] Comment on above: Performed By: #### CMP, GFR, AMM, LAC, HEPAC #### [place] [phone] Calcium [Mass/Vol] 9.3 mg/dL Normal 8.7-10.4 [facility] ([place] Comment on above: Performed By: #### CMP, GFR, AMM, LAC, HEPAC #### [place] [phone] Chloride [Moles/Vol] 111 mmol/L High 98-110 [facility] ([place] Comment on above: Performed By: #### CMP, GFR, AMM, LAC, HEPAC #### [address] [address] CO2 [Moles/Vol] 26 mmol/L Normal 22-32 [facility] [place]: Performed By: #### CMP, GFR, AMM, LAC, HEPAC #### [address] [address] Creatinine [Mass/Vol] 0.63 mg/dL Normal 0.50-1.20 [facility] ([place] Comment on above: Performed By: #### CMP, GFR, AMM, LAC, HEPAC #### [address] [address] Electrolyte Balance 8.0 mEq/L Normal 4.0-15.0 [facility] ([place] Comment on above: Performed By: #### CMP, GFR, AMM, LAC, HEPAC #### [address] [address] Globulin 2.7 G/dL Normal 1.5-3.8 [facility] ([place] Comment on above: Performed By: #### CMP, GFR, AMM, LAC, HEPAC #### [address] [address] Glucose [Mass/Vol] 126 mg/dL High 70-110 [facility] ([place] Comment on above: Performed By: #### CMP, GFR, AMM, LAC, HEPAC #### [address] [address] Potassium [Moles/Vol] 3.9 mmol/L Normal 3.5-5.0 [facility] ([place] Comment on above: Performed By: #### CMP, GFR, AMM, LAC, HEPAC #### [address] [address] Sodium [Moles/Vol] 145 mmol/L Normal 136-145 [facility] ([place] Comment on above: Performed By: #### CMP, GFR, AMM, LAC, HEPAC #### [place] [phone] Total Protein 6.2 G/dL Normal 5.7-8.2 [facility] ([place] Comment on above: Result Comment: Note - New Reference Range in effect 20 Performed By: #### CMP, GFR, AMM, LAC, HEPAC #### [address] [address] Urea nitrogen [Mass/Vol] 11.0 mg/dL Normal 8.0-22.0 [facility] ([place] Comment on above: Performed By: #### CMP, GFR, AMM, LAC, HEPAC #### [address] [address] LABORATORY Ordered By: SYSTEM SYSTEM on 10-06-2022 Albumin BCP dye 3.5 G/dL Invalid Interpretation 3.2 - 4.8 AH ADM SS [Mass/Vol] Code G/dL Albumin/Globulin 1.3 {ratio} Invalid Interpretation 0.9 - 1.6 A H ADM SS [Mass ratio] Code ratio ALP [Catalytic 124 U/L Invalid Interpretation 38 - 126 U/L AH ADM SS activity/Vol] Code ALT No additional 22 U/L Invalid Interpretation 10 - 49 U/L AH ADM SS P-5'-P [Catalytic Code activity/Vol] Ammonia (P) 217 umol/L Invalid Interpretation 11 - 32 AH AD M SS [Moles/Vol] Code mcmol/L AST [Catalytic 38 U/L Invalid Interpretation 8 - 34 U/L AH ADM SS activity/Vol] Code Basophils (Bld) 0.0 103/mcL Invalid Interpretation 0.0 - 0.3 Workflow SS [#/Vol] Code 10^3/mcL Basophils/100 WBC 1.1 % Invalid Interpretation 0.0 - 2.5 % Workflow SS (Bld) Code Bilirubin [Mass/Vol] 0.70 mg/dL Invalid Interpretation 0.20 - 1.2 0 ADM SS Code mg/dL Calcium [Mass/Vol] 9.3 mg/dL Invalid Interpretation 8.7 - 10.4 ADM SS Code mg/dL Chloride [Moles/Vol] 111 mmol/L Invalid Interpretation 98 - 110 ADM SS Code mEq/L CO2 [Moles/Vol] 26 mmol/L Invalid Interpretation 22 - 32 mEq/L A H ADM SS Code Creatinine [Mass/Vol] 0.63 mg/dL Invalid Interpretation 0.50 - 1. 20 ADM SS Code mg/dL Electrolyte Balance 8.0 mEq/L Invalid Interpretation 4.0 - 15.0 ADM SS Code mEq/L Eosinophils (Bld) 0.3 103/mcL Invalid Interpretation 0.0 - 0.7 Workflow SS [#/Vol] Code 10^3/mcL Eosinophils/100 WBC 9.2 % Invalid Interpretation 0.0 - 6.0 % Workflow SS (Bld) Code Erythrocyte 18.2 % Invalid Interpretation 11.5 - 15.5 % W orkflow SS distribution width Code (RBC) [Ratio] GFR/1.73 sq ml/min/1.73sqm Invalid Interpretation AH Chemistry S M.predicted among Code blacks MDRD (S/P/Bld) [Vol rate/Area] GFR/1.73 sq ml/min/1.73sqm Invalid Interpretation AH Chemistry S M.predicted among Code non-blacks MDRD (S/P/Bld) [Vol rate/Area] Globulin 2.7 G/dL Invalid Interpretation 1.5 - 3.8 AD M SS Code G/dL Glucose [Mass/Vol] 126 mg/dL Invalid Interpretation 70 - 110 AH ADM SS Code mg/dL Hematocrit (Bld) 28.1 % Invalid Interpretation 34.0 - 46.0 % Workflow SS [Volume fraction] Code Hemoglobin (Bld) 8.7 G/dL Invalid Interpretation 12.0 - 16.0 A H Workflow SS [Mass/Vol] Code G/dL Lymphocytes (Bld) 0.7 103/mcL Invalid Interpretation 0.9 - 4.3 AH Workflow SS [#/Vol] Code 10^3/mcL Lymphocytes/100 WBC 24.2 % Invalid Interpretation 20.0 - 40.0 % Workflow SS (Bld) Code Magnesium [Mass/Vol] 2.0 mg/dL Invalid Interpretation 1.6 - 2.4 AH ADM SS Code mg/dL MCH (RBC) [Entitic 22.8 pg Invalid Interpretation 27.0 - 33.0 Workflow SS mass] Code pg MCHC 31.0 G/dL Invalid Interpretation 32.0 - 36.0 Wo rkflow SS Code G/dL MCV (RBC) [Entitic 73.7 fL Invalid Interpretation 80.0 - 99.0 Workflow SS vol] Code fL Monocytes (Bld) 0.5 103/mcL Invalid Interpretation 0.1 - 1.4 Workflow SS [#/Vol] Code 10^3/mcL Monocytes/100 WBC 15.9 % Invalid Interpretation 2.0 - 13.0 % Workflow SS (Bld) Code Neutrophils (Bld) 1.5 103/mcL Invalid Interpretation 2.3 - 8.1 Workflow SS [#/Vol] Code 10^3/mcL Neutrophils/100 WBC 49.6 % Invalid Interpretation 50.0 - 75.0 % Workflow SS (Bld) Code Platelet mean volume 8.5 fL Invalid Interpretation 6.6 - 10.5 fL Workflow SS (Bld) [Entitic vol] Code Platelets (Bld) 68 103/mcL Invalid Interpretation 150 - 450 Workflow SS [#/Vol] Code 10^3/mcL Potassium [Moles/Vol] 3.9 mmol/L Invalid Interpretation 3.5 - 5.0 AH ADM SS Code mEq/L Protein [Mass/Vol] 6.2 G/dL Invalid Interpretation 5.7 - 8.2 ADM SS Code G/dL RBC (Bld) [#/Vol] 3.81 106/mcL Invalid Interpretation 4.10 - 5.30 Workflow SS Code 10^6/mcL Sodium [Moles/Vol] 145 mmol/L Invalid Interpretation 136 - 145 AH ADM SS Code mEq/L Urea nitrogen 11.0 mg/dL Invalid Interpretation 8.0 - 22.0 AH A DM SS [Mass/Vol] Code mg/dL Urea 17.5 ratio Invalid Interpretation 10.0 - 22.0 AH AD M SS nitrogen/Creatinine Code ratio [Mass ratio] WBC (Bld) [#/Vol] 3.0 103/mcL Invalid Interpretation 4.5 - 10.8 Workflow SS Code 10^3/mcL LABORATORY Ordered By: Greg Ely on 10-06-2022 Hemoglobin.gastrointestinal 8th Negative Invalid Negative Manual specimen Ql (Stl) (10/06/22 3:37 AM) Interpretation Code Urine SS MG on 10-06-2022 Magnesium [Mass/Vol] 2.0 mg/dL Normal 1.6-2.4 [facility] ([place] Comment on above: Performed By: #### CMP, GFR, AMM, LAC, HEPAC #### [address] [address] OCC (LAB) on 10-06-2022 Occult Blood Fecal Negative Normal Negative [facility] ([place] Comment on above: Result Comment: This test ut ilizes the guaiac fecal blood method, which detects peroxidase activity (heme) indicating bleeding from stomach, small intestin e, or large intestine. If bleeding from either upper o r lower gastrointestinal tract is a clinical consider ation, the [place] [facility] recommends the use of both t he guaiac fecal blood test and the Immunochemical fecal blo od test. Performed By: #### CMP, GFR, AMM, LAC, HEPAC #### [address] [address] .KASHIF on 2022 SELIN Pattern 1 Speckled Normal [facility] ([place] Comment on above: Result Comment: At [place], an SELIN titer of less than 160 is not considered suggestive of sig nificant rheumatoid disease. If clinical suspicion is high, suggest repeat testing in 1-2 months. Performed By: #### LAC #### [address] [address] SELIN Titer 1 40 Normal [facility] ([place] Comment on above: Result Comment: strong cytop lasmic (ora) Performed By: #### LAC #### [address] [address] .Auto Diff on 2022 Basophil, Absolute 0.0 10 3/mcL Normal 0.0-0.3 [facility] ([place] Comment on above: Performed By: #### CMP, GFR, AMM, LAC, HEPAC #### [address] [address] Basophils/100 WBC (Bld) 0.9 % Normal 0.0-2.5 [facility] ([place] Comment on above: Performed By: #### CMP, GFR, AMM, LAC, HEPAC #### [address] [address] Eosinophil, Absolute 0.2 10 3/mcL Normal 0.0-0.7 [facility] ([place] Comment on above: Performed By: #### CMP, GFR, AMM, LAC, HEPAC #### [address] [address] Eosinophils/100 WBC (Bld) 5.5 % Normal 0.0-6.0 [facility] ([place] Comment on above: Performed By: #### CMP, GFR, AMM, LAC, HEPAC #### [address] [address] Lymphocyte, Absolute 1.0 10 3/mcL Normal 0.9-4.3 [facility] ([place] Comment on above: Performed By: #### CMP, GFR, AMM, LAC, HEPAC #### [address] [address] Lymphocytes/100 WBC (Bld) 30.7 % Normal 20.0-40.0 [facility] ([place] Comment on above: Performed By: #### CMP, GFR, AMM, LAC, HEPAC #### [address] [address] Monocyte, Absolute 0.4 10 3/mcL Normal 0.1-1.4 [facility] ([place] Comment on above: Performed By: #### CMP, GFR, AMM, LAC, HEPAC #### [address] [address] Monocytes/100 WBC (Bld) 13.8 % High 2.0-13.0 [facility] ([place] Comment on above: Performed By: #### CMP, GFR, AMM, LAC, HEPAC #### [address] [address] Neutrophils/100 WBC (Bld) 49.1 % Low 50.0-75.0 [facility] ([place] Comment on above: Performed By: #### CMP, GFR, AMM, LAC, HEPAC #### [address] [address] .GFR on 2022 GFR >60 Normal [facility] ([place] Comment on above: Result Comment: GFR Population mean for Afri can Chinese, Non- Americans Ages 20-29 = 116 mL/min/1.73 sq.m. Ages 30-39 = 107 mL/min/1.73 sq.m. Ages 40-49 = 99 mL/min/1.73 sq.m. Ages 50-59 = 93 mL/min/1.73 sq.m. Ages 60-69 = 85 mL/min/1.73 sq.m. Ages 70+ = 75 mL/min/1.73 sq .m. Chronic Kidney Disease: Less than 60 mL/min/1.73 square meters End Stage Renal Disease: Les s than 15 mL/min/1.73 square meters Performed By: #### CMP, GFR, AMM, LAC, HEPAC #### [address] [address] GFR Non- >60 Normal [facility] ([place] Comment on above: Result Comment: GFR Population mean for Afri can Chinese, Non- Americans Ages 20-29 = 116 mL/min/1.73 sq.m. Ages 30-39 = 107 mL/min/1.73 sq.m. Ages 40-49 = 99 mL/min/1.73 sq.m. Ages 50-59 = 93 mL/min/1.73 sq.m. Ages 60-69 = 85 mL/min/1.73 sq.m. Ages 70+ = 75 mL/min/1.73 sq .m. Chronic Kidney Disease: Less than 60 mL/min/1.73 square meters End Stage Renal Disease: Les s than 15 mL/min/1.73 square meters Performed By: #### CMP, GFR, AMM, LAC, HEPAC #### [address] [address] .NEUABS on 2022 Neutrophil, Absolute 1.6 10 3/mcL Low 2.3-8.1 [facility] ([place] Comment on above: Performed By: #### CMP, GFR, AMM, LAC, HEPAC #### [place] [phone] AMM on 2022 Ammonia 137 mcmol/l High 11-32 [facility] ([place] Comment on above: Performed By: #### CMP, GFR, AMM, LAC, HEPAC #### [place] [id number] SELIN on 2022 SELIN See Titer Normal Neg 40 [facility] ([place] Comment on above: Result Comment: SELIN Screen a nd Titer methodology is an immunofluorescent technique utilizing Hep2 Substrate. Performed By: #### LAC #### [address] [address] CBC on 2022 Erythrocyte distribution width 17.9 % High 11.5-15.5 [facility] ([place] (RBC) [Ratio] Comment on above: Performed By: #### GFR, MG, PRO, CMP, AMM #### [address] [address] Hematocrit (Bld) [Volume 28.6 % Low 34.0-46.0 [facility] ([place] fraction] Comment on above: Performed By: #### GFR, MG, PRO, CMP, AMM #### [address] [address] Hgb 9.0 G/dL Low 12.0-16.0 [facility] ([place] Comment on above: Performed By: #### GFR, MG, PRO, CMP, AMM #### [address] [address] MCH (RBC) [Entitic mass] 22.9 pg Low 27.0-33.0 [facility] ([place] Comment on above: Performed By: #### GFR, MG, PRO, CMP, AMM #### [place] [address] MCHC 31.6 G/dL Low 32.0-36.0 [facility] ([place] Comment on above: Performed By: #### GFR, MG, PRO, CMP, AMM #### [place] [address] MCV (RBC) [Entitic vol] 72.6 fL Low 80.0-99.0 [facility] ([place] Comment on above: Performed By: #### GFR, MG, PRO, CMP, AMM #### [place] [address] Platelet 74 10 3/mcL Low 150-450 [facility] ([place] Comment on above: Performed By: #### GFR, MG, PRO, CMP, AMM #### [place] [address] Platelet mean volume (Bld) 8.3 fL Normal 6.6-10.5 [facility] ([place] [Entitic vol] Comment on above: Performed By: #### GFR, MG, PRO, CMP, AMM #### [place] [address] RBC 3.94 10 6/mcL Low 4.10-5.30 [facility] ([place] Comment on above: Performed By: #### GFR, MG, PRO, CMP, AMM #### [place] [address] WBC 3.2 10 3/mcL Low 4.5-10.8 [facility] ([place] Comment on above: Performed By: #### GFR, MG, PRO, CMP, AMM #### [place] [address] CMP on 2022 Albumin Level 3.5 G/dL Normal 3.2-4.8 [facility] ([place] Comment on above: Performed By: #### CMP, GFR, AMM, LAC, HEPAC #### [address] [address] Albumin/Globulin [Mass ratio] 1.2 {ratio} Normal 0.9-1.6 [facility] ([place] Comment on above: Performed By: #### CMP, GFR, AMM, LAC, HEPAC #### [address] [address] ALP [Catalytic activity/Vol] 117 U/L Normal 38-126 [facility] ([place] Comment on above: Performed By: #### CMP, GFR, AMM, LAC, HEPAC #### [place] [phone] ALT [Catalytic activity/Vol] 24 U/L Normal 10-49 [facility] ([place] Comment on above: Performed By: #### CMP, GFR, AMM, LAC, HEPAC #### [place] [phone] AST [Catalytic activity/Vol] 37 U/L High 8-34 [facility] ([place] Comment on above: Performed By: #### CMP, GFR, AMM, LAC, HEPAC #### [address] [address] Bili Total 1.00 mg/dL Normal 0.20-1.20 [facility] ([place] Comment on above: Result Comment: Use of this assay is not recommended for patients undergoing treatment with eltrombopag d ue to the potential for falsely elevated results. Performed By: #### CMP, GFR, AMM, LAC, HEPAC #### [place] [phone] BUN/Creatinine Ratio 29.0 ratio High 10.0-22.0 [facility] ([place] Comment on above: Performed By: #### CMP, GFR, AMM, LAC, HEPAC #### [place] [phone] Calcium [Mass/Vol] 9.4 mg/dL Normal 8.7-10.4 [facility] ([place] Comment on above: Performed By: #### CMP, GFR, AMM, LAC, HEPAC #### [address] [address] Chloride [Moles/Vol] 110 mmol/L Normal 98-110 [facility] ([place] Comment on above: Performed By: #### CMP, GFR, AMM, LAC, HEPAC #### [address] [address] CO2 [Moles/Vol] 24 mmol/L Normal 22-32 [facility] [place] Comment on above: Performed By: #### CMP, GFR, AMM, LAC, HEPAC #### [address] [address] Creatinine [Mass/Vol] 0.62 mg/dL Normal 0.50-1.20 [facility] ([place] Comment on above: Performed By: #### CMP, GFR, AMM, LAC, HEPAC #### [address] [address] Electrolyte Balance 11.0 mEq/L Normal 4.0-15.0 [facility] ([place] Comment on above: Performed By: #### CMP, GFR, AMM, LAC, HEPAC #### [address] [address] Globulin 2.8 G/dL Normal 1.5-3.8 [facility] ([place] Comment on above: Performed By: #### CMP, GFR, AMM, LAC, HEPAC #### [address] [address] Glucose [Mass/Vol] 113 mg/dL High 70-110 [facility] ([place] Comment on above: Performed By: #### CMP, GFR, AMM, LAC, HEPAC #### [address] [address] Potassium [Moles/Vol] 4.0 mmol/L Normal 3.5-5.0 [facility] ([place] Comment on above: Performed By: #### CMP, GFR, AMM, LAC, HEPAC #### [place] [phone] [place] [address] Sodium [Moles/Vol] 145 mmol/L Normal 136-145 [facility] ([place] Comment on above: Performed By: #### CMP, GFR, AMM, LAC, HEPAC #### [address] [address] Total Protein 6.3 G/dL Normal 5.7-8.2 [facility] [facility] ([place] Comment on above: Result Comment: Note - New Reference Range in effect 20 Performed By: #### CMP, GFR, AMM, LAC, HEPAC #### [address] [address] Urea nitrogen [Mass/Vol] 18.0 mg/dL Normal 8.0-22.0 [facility] ([place]) Comment on above: Performed By: #### CMP, GFR, AMM, LAC, HEPAC #### [address] [address] LABORATORY Ordered By: SYSTEM SYSTEM on 2022 Albumin BCP dye 3.5 G/dL Invalid Interpretation 3.2 - 4.8 ADM SS [Mass/Vol] Code G/dL Albumin/Globulin 1.2 {ratio} Invalid Interpretation 0.9 - 1.6 A H ADM SS [Mass ratio] Code ratio ALP [Catalytic 117 U/L Invalid Interpretation 38 - 126 U/L ADM SS activity/Vol] Code ALT No additional 24 U/L Invalid Interpretation 10 - 49 U/L ADM SS P-5'-P [Catalytic Code activity/Vol] Ammonia (P) 137 umol/L Invalid Interpretation 11 - 32 AD M SS [Moles/Vol] Code mcmol/L AST [Catalytic 37 U/L Invalid Interpretation 8 - 34 U/L ADM SS activity/Vol] Code Basophils (Bld) 0.0 103/mcL Invalid Interpretation 0.0 - 0.3 Workflow SS [#/Vol] Code 10^3/mcL Basophils/100 WBC 0.9 % Invalid Interpretation 0.0 - 2.5 % Workflow SS (Bld) Code Bilirubin [Mass/Vol] 1.00 mg/dL Invalid Interpretation 0.20 - 1.2 0 ADM SS Code mg/dL Calcium [Mass/Vol] 9.4 mg/dL Invalid Interpretation 8.7 - 10.4 ADM SS Code mg/dL Chloride [Moles/Vol] 110 mmol/L Invalid Interpretation 98 - 110 ADM SS Code mEq/L CO2 [Moles/Vol] 24 mmol/L Invalid Interpretation 22 - 32 mEq/L A H ADM SS Code Creatinine [Mass/Vol] 0.62 mg/dL Invalid Interpretation 0.50 - 1. 20 ADM SS Code mg/dL Electrolyte Balance 11.0 mEq/L Invalid Interpretation 4.0 - 15.0 ADM SS Code mEq/L Eosinophils (Bld) 0.2 103/mcL Invalid Interpretation 0.0 - 0.7 Workflow SS [#/Vol] Code 10^3/mcL Eosinophils/100 WBC 5.5 % Invalid Interpretation 0.0 - 6.0 % Workflow SS (Bld) Code Erythrocyte 17.9 % Invalid Interpretation 11.5 - 15.5 % W orkflow SS distribution width Code (RBC) [Ratio] GFR/1.73 sq ml/min/1.73sqm Invalid Interpretation Chemistry S M.predicted among Code blacks MDRD (S/P/Bld) [Vol rate/Area] GFR/1.73 sq ml/min/1.73sqm Invalid Interpretation Chemistry S M.predicted among Code non-blacks MDRD (S/P/Bld) [Vol rate/Area] Globulin 2.8 G/dL Invalid Interpretation 1.5 - 3.8 AD M SS Code G/dL Glucose [Mass/Vol] 113 mg/dL Invalid Interpretation 70 - 110 ADM SS Code mg/dL Hematocrit (Bld) 28.6 % Invalid Interpretation 34.0 - 46.0 % Workflow SS [Volume fraction] Code Hemoglobin (Bld) 9.0 G/dL Invalid Interpretation 12.0 - 16.0 A H Workflow SS [Mass/Vol] Code G/dL Lymphocytes (Bld) 1.0 103/mcL Invalid Interpretation 0.9 - 4.3 Workflow SS [#/Vol] Code 10^3/mcL Lymphocytes/100 WBC 30.7 % Invalid Interpretation 20.0 - 40.0 % Workflow SS (Bld) Code Magnesium [Mass/Vol] 2.1 mg/dL Invalid Interpretation 1.6 - 2.4 AH ADM SS Code mg/dL MCH (RBC) [Entitic 22.9 pg Invalid Interpretation 27.0 - 33.0 Workflow SS mass] Code pg MCHC 31.6 G/dL Invalid Interpretation 32.0 - 36.0 Wo rkflow SS Code G/dL MCV (RBC) [Entitic 72.6 fL Invalid Interpretation 80.0 - 99.0 Workflow SS vol] Code fL Monocytes (Bld) 0.4 103/mcL Invalid Interpretation 0.1 - 1.4 Workflow SS [#/Vol] Code 10^3/mcL Monocytes/100 WBC 13.8 % Invalid Interpretation 2.0 - 13.0 % Workflow SS (Bld) Code Neutrophils (Bld) 1.6 103/mcL Invalid Interpretation 2.3 - 8.1 Workflow SS [#/Vol] Code 10^3/mcL Neutrophils/100 WBC 49.1 % Invalid Interpretation 50.0 - 75.0 % Workflow SS (Bld) Code Platelet mean volume 8.3 fL Invalid Interpretation 6.6 - 10.5 fL Workflow SS (Bld) [Entitic vol] Code Platelets (Bld) 74 103/mcL Invalid Interpretation 150 - 450 Workflow SS [#/Vol] Code 10^3/mcL Potassium [Moles/Vol] 4.0 mmol/L Invalid Interpretation 3.5 - 5.0 ADM SS Code mEq/L Protein [Mass/Vol] 6.3 G/dL Invalid Interpretation 5.7 - 8.2 ADM SS Code G/dL RBC (Bld) [#/Vol] 3.94 106/mcL Invalid Interpretation 4.10 - 5.30 Workflow SS Code 10^6/mcL Sodium [Moles/Vol] 145 mmol/L Invalid Interpretation 136 - 145 ADM SS Code mEq/L Urea nitrogen 18.0 mg/dL Invalid Interpretation 8.0 - 22.0 A DM SS [Mass/Vol] Code mg/dL Urea 29.0 ratio Invalid Interpretation 10.0 - 22.0 AD M SS nitrogen/Creatinine Code ratio [Mass ratio] WBC (Bld) [#/Vol] 3.2 103/mcL Invalid Interpretation 4.5 - 10.8 Workflow SS Code 10^3/mcL LABORATORY Ordered By: Charmaine Ordaz on 2022 INR Coag (PPP) 1.2 {INR} Invalid Interpretation AH Auto Coag [Relative time] Code SS PT Coag (PPP) [Time] 14.5 s Invalid Interpretation 9.0 - 14.9 AH Auto Coag Code seconds SS MG on 2022 Magnesium [Mass/Vol] 2.1 mg/dL Normal 1.6-2.4 [facility] ([place] Comment on above: Performed By: #### CMP, GFR, AMM, LAC, HEPAC #### [address] [address] ORA on 2022 Mitochondrial Ab See Titer Normal Neg 20 [facility] ([place]) Comment on above: Result Comment: Mitochondria l Ab Screen and Titer methodology is an immunofluorescent technique utilizing MSK Substrate. Performed By: #### CMP, GFR, AMM, LAC, HEPAC #### [address] [address] PRO on 2022 INR Coag (PPP) [Relative time] 1.2 {INR} Normal [facility] ([place]) Comment on above: Result Comment: [employer] (CHEST, 1992, 102:[id number]) recommended therapeutic rang e for oral anticoagulant therapy is: LOW RISK: Prophylaxis of starr ous thrombosis INR: 2.0-3.0 Treatment of pulmonary embol ism 2.0-3.0 Prevention of systemic embol ism 2.0-3.0 HIGH RISK: Mechanical prosth etic valves 2.5-3.5 Performed By: #### CMP, GFR, AMM, LAC, HEPAC #### [address] [address] PT Coag (PPP) [Time] 14.5 s Normal 9.0-14.9 [facility] ([place] Comment on above: Result Comment: Effective , Protime results may be affected by some antibiotics (i.e. Ci profloxacin, Azithromycin, Bactrim) which may potentiate the act ion of oral anticoagulants, with further increases in Protime /INR. Performed By: #### CMP, GFR, AMM, LAC, HEPAC #### [address] [address] [facility] on 2022 Smooth Muscle Ab Neg 20 Normal Neg 20 [facility] ([place] Comment on above: Result Comment: Smooth Muscl e Ab Screen and Titer methodology is an immunofluorescent technique utilizing MSK Substrate. Performed By: #### CMP, GFR, AMM, LAC, HEPAC #### [address] [address] .Auto Diff on 10-04-2022 Basophil, Absolute 0.0 10 3/mcL Normal 0.0-0.3 [facility] ([place] Comment on above: Performed By: #### CMP, GFR, AMM, LAC, HEPAC #### [address] [address] Basophils/100 WBC (Bld) 1.1 % Normal 0.0-2.5 [facility] ([place] Comment on above: Performed By: #### CMP, GFR, AMM, LAC, HEPAC #### [address] [address] Eosinophil, Absolute 0.3 10 3/mcL Normal 0.0-0.7 [facility] ([place] Comment on above: Performed By: #### CMP, GFR, AMM, LAC, HEPAC #### [address] [address] Eosinophils/100 WBC (Bld) 7.0 % High 0.0-6.0 [facility] ([place]) Comment on above: Performed By: #### CMP, GFR, AMM, LAC, HEPAC #### [address] [address] Lymphocyte, Absolute 1.3 10 3/mcL Normal 0.9-4.3 [facility] ([place] Comment on above: Performed By: #### CMP, GFR, AMM, LAC, HEPAC #### [address] [address] Lymphocytes/100 WBC (Bld) 32.4 % Normal 20.0-40.0 [facility] ([place] Comment on above: Performed By: #### CMP, GFR, AMM, LAC, HEPAC #### [address] [address] Monocyte, Absolute 0.6 10 3/mcL Normal 0.1-1.4 [facility] ([place] Comment on above: Performed By: #### CMP, GFR, AMM, LAC, HEPAC #### [address] [address] Monocytes/100 WBC (Bld) 15.6 % High 2.0-13.0 [facility] ([place] Comment on above: Performed By: #### CMP, GFR, AMM, LAC, HEPAC #### [address] [address] Neutrophils/100 WBC (Bld) 43.9 % Low 50.0-75.0 [facility] ([place] Comment on above: Performed By: #### CMP, GFR, AMM, LAC, HEPAC #### [address] [address] .GFR on 10-04-2022 GFR >60 Normal [facility] ([place] Comment on above: Result Comment: GFR Population mean for Afri can Chinese, Non- Americans Ages 20-29 = 116 mL/min/1.73 sq.m. Ages 30-39 = 107 mL/min/1.73 sq.m. Ages 40-49 = 99 mL/min/1.73 sq.m. Ages 50-59 = 93 mL/min/1.73 sq.m. Ages 60-69 = 85 mL/min/1.73 sq.m. Ages 70+ = 75 mL/min/1.73 sq .m. Chronic Kidney Disease: Less than 60 mL/min/1.73 square meters End Stage Renal Disease: Les s than 15 mL/min/1.73 square meters Performed By: #### CMP, GFR, AMM, LAC, HEPAC #### [address] [address] GFR Non- >60 Normal [facility] ([place] Comment on above: Result Comment: GFR Population mean for Afri can Chinese, Non- Americans Ages 20-29 = 116 mL/min/1.73 sq.m. Ages 30-39 = 107 mL/min/1.73 sq.m. Ages 40-49 = 99 mL/min/1.73 sq.m. Ages 50-59 = 93 mL/min/1.73 sq.m. Ages 60-69 = 85 mL/min/1.73 sq.m. Ages 70+ = 75 mL/min/1.73 sq .m. Chronic Kidney Disease: Less than 60 mL/min/1.73 square meters End Stage Renal Disease: Les s than 15 mL/min/1.73 square meters Performed By: #### CMP, GFR, AMM, LAC, HEPAC #### [address] [address] .NEUABS on 10-04-2022 Neutrophil, Absolute 1.7 10 3/mcL Low 2.3-8.1 [facility] ([place] Comment on above: Performed By: #### CMP, GFR, AMM, LAC, HEPAC #### [address] [address] AMM on 10-04-2022 Ammonia 117 mcmol/l High [facility] ([place] Comment on above: Performed By: #### CMP, GFR, AMM, LAC, HEPAC #### [address] [address] CBC on 10-04-2022 Erythrocyte distribution width 18.2 % High 11.5-15.5 [facility] ([place] (RBC) [Ratio] Comment on above: Performed By: #### CMP, GFR, AMM, LAC, HEPAC #### [place] [id number] Hematocrit (Bld) [Volume 28.0 % Low 34.0-46.0 [facility] ([place] fraction] Comment on above: Performed By: #### CMP, GFR, AMM, LAC, HEPAC #### [place] [id number] Hgb 8.9 G/dL Low 12.0-16.0 [facility] ([place] Comment on above: Performed By: #### CMP, GFR, AMM, LAC, HEPAC #### [address] [address] MCH (RBC) [Entitic mass] 23.0 pg Low 27.0-33.0 [facility] ([place] Comment on above: Performed By: #### CMP, GFR, AMM, LAC, HEPAC #### [place] [address] MCHC 31.8 G/dL Low 32.0-36.0 [facility] ([place] Comment on above: Performed By: #### CMP, GFR, AMM, LAC, HEPAC #### [place] [address] MCV (RBC) [Entitic vol] 72.3 fL Low 80.0-99.0 [facility] ([place] Comment on above: Performed By: #### CMP, GFR, AMM, LAC, HEPAC #### [place] [address] Platelet 84 10 3/mcL Low 150-450 [facility] ([place] Comment on above: Performed By: #### CMP, GFR, AMM, LAC, HEPAC #### [place] [address] Platelet mean volume (Bld) 8.4 fL Normal 6.6-10.5 [facility] ([place] [Entitic vol] Comment on above: Performed By: #### CMP, GFR, AMM, LAC, HEPAC #### [place] [address] RBC 3.87 10 6/mcL Low 4.10-5.30 [facility] ([place] Comment on above: Performed By: #### CMP, GFR, AMM, LAC, HEPAC #### [place] [address] WBC 3.9 10 3/mcL Low 4.5-10.8 [facility] ([place] Comment on above: Performed By: #### CMP, GFR, AMM, LAC, HEPAC #### [place] [address] CMP on 10-04-2022 Albumin Level 2.9 G/dL Low 3.2-4.8 [facility] ([place] Comment on above: Performed By: #### CMP, GFR, AMM, LAC, HEPAC #### [address] [address] Albumin/Globulin [Mass ratio] 1.0 {ratio} Normal 0.9-1.6 [facility] ([place] Comment on above: Performed By: #### CMP, GFR, AMM, LAC, HEPAC #### [address] [address] ALP [Catalytic activity/Vol] 122 U/L Normal 38-126 [facility] ([place] Comment on above: Performed By: #### CMP, GFR, AMM, LAC, HEPAC #### [address] [address] ALT [Catalytic activity/Vol] 25 U/L Normal 10-49 [facility] ([place] Comment on above: Performed By: #### CMP, GFR, AMM, LAC, HEPAC #### [place] [phone] AST [Catalytic activity/Vol] 37 U/L High 8-34 [facility] ([place] Comment on above: Performed By: #### CMP, GFR, AMM, LAC, HEPAC #### [address] [address] Bili Total 1.10 mg/dL Normal 0.20-1.20 [facility] ([place] Comment on above: Result Comment: Use of this assay is not recommended for patients undergoing treatment with eltrombopag d ue to the potential for falsely elevated results. Performed By: #### CMP, GFR, AMM, LAC, HEPAC #### [address] [address] BUN/Creatinine Ratio 23.9 ratio High 10.0-22.0 [facility] ([place] Comment on above: Performed By: #### CMP, GFR, AMM, LAC, HEPAC #### [address] [address] Calcium [Mass/Vol] 9.0 mg/dL Normal 8.7-10.4 [facility] ([place] Comment on above: Performed By: #### CMP, GFR, AMM, LAC, HEPAC #### [address] [address] Chloride [Moles/Vol] 113 mmol/L High 98-110 [facility] ([place] Comment on above: Performed By: #### CMP, GFR, AMM, LAC, HEPAC #### [address] [address] CO2 [Moles/Vol] 25 mmol/L Normal 22-32 [facility] [place]: Performed By: #### CMP, GFR, AMM, LAC, HEPAC #### [address] [address] Creatinine [Mass/Vol] 0.67 mg/dL Normal 0.50-1.20 [facility] ([place] Comment on above: Performed By: #### CMP, GFR, AMM, LAC, HEPAC #### [address] [address] Electrolyte Balance 9.0 mEq/L Normal 4.0-15.0 [facility] ([place] Comment on above: Performed By: #### CMP, GFR, AMM, LAC, HEPAC #### [address] [address] Globulin 3.0 G/dL Normal 1.5-3.8 [facility] ([place] Comment on above: Performed By: #### CMP, GFR, AMM, LAC, HEPAC #### [address] [address] Glucose [Mass/Vol] 102 mg/dL Normal 70-110 [facility] ([place] Comment on above: Performed By: #### CMP, GFR, AMM, LAC, HEPAC #### [address] [address] Potassium [Moles/Vol] 3.9 mmol/L Normal 3.5-5.0 [facility] ([place] Comment on above: Performed By: #### CMP, GFR, AMM, LAC, HEPAC #### [address] [address] Sodium [Moles/Vol] 147 mmol/L High 136-145 [facility] ([place] Comment on above: Performed By: #### CMP, GFR, AMM, LAC, HEPAC #### [place] [phone] [place] [address] Total Protein 5.9 G/dL Normal 5.7-8.2 [facility] ([place] Comment on above: Result Comment: Note - New Reference Range in effect 20 Performed By: #### CMP, GFR, AMM, LAC, HEPAC #### [facility] [address] [place] [address] Urea nitrogen [Mass/Vol] 16.0 mg/dL Normal 8.0-22.0 [facility] ([place] Comment on above: Performed By: #### CMP, GFR, AMM, LAC, HEPAC #### [address] [address] LABORATORY Ordered By: Ysabel Soto on 10-04-2022 Appearance (U) Clear Invalid Interpretation Clear AH Auto Urine (10/04/22 5:02 PM) Code SS Bilirubin Ql (U) Negative 1 Invalid Interpretation Neg-Trace A H Auto Urine (10/04/22 5:02 PM) Code SS Comment on above: Result Comment: Bilirubin co nfirmed by alternate method Color (U) Dark Yellow Invalid AH Auto *NA* Interpretation Code Urine SS (10/04/22 5:02 PM) Glucose Test strip Negative Invalid Negativemg/dL AH Auto (U) [Mass/Vol] Interpretation Code Urine SS Hemoglobin Auto test Negative Invalid Neg-Trace AH Auto strip (U) [Mass/Vol] (10/04/22 5:02 PM) Interpretation Code Urine SS Ketones Ql (U) Trace mg/dL Invalid Neg-Tracemg/dL AH Auto Interpretation Code Urine SS UA Leuk Est Small Invalid Negative AH Auto *ABN* Interpretation Code Urine SS (10/04/22 5:02 PM) UA Nitrite Negative Invalid Negative AH Auto (10/04/22 5:02 PM) Interpretation Code Ur ine SS UA pH 5.5 Invalid 5.0 - 8.0 AH Auto (10/04/22 5:02 PM) Interpretation Code Ur ine SS UA Protein Negative Invalid Negativemg/dL AH Auto Interpretation Code Urine SS UA RBC Rare /HPF Invalid 0-2/HPF AH Auto Interpretation Code Urine SS UA Spec Grav >=1.030 Invalid 1.006-1.029 AH Auto *ABN* Interpretation Code Urine SS (10/04/22 5:02 PM) UA Specimen Type Void Invalid AH Auto (10/04/22 5:02 PM) Interpretation Code Ur ine SS UA Squam Epithelial 3-5 /HPF Invalid 0-20/HPF AH Auto Interpretation Code Urine SS UA Transitional 0-2 /HPF Invalid AH Auto Epithelial Interpretation Code Urine SS UA Urobilinogen 2.0 E.U./dL Invalid 0.2-1.0E.U./dL AH Auto Interpretation Code Urine SS WBC LM.HPF (Urine 5-10 /HPF Invalid 0-5/HPF AH Auto sed) [#/Area] Interpretation Code Urine S S No Panel Information on 10-04-2022 Culture Urine No growth at 48 hours. [facility] Work Phone: UA on 10-04-2022 Color (U) Dark Yellow Normal [facility] ([place] Comment on above: Performed By: #### CMP, GFR, AMM, LAC, HEPAC #### [address] [address] Glucose (U) [Mass/Vol] Negative Normal Negative [facility] ([place] Comment on above: Performed By: #### CMP, GFR, AMM, LAC, HEPAC #### [address] [address] Ketones Ql (U) Trace Normal Neg-Trace [facility] ([place]) Comment on above: Performed By: #### CMP, GFR, AMM, LAC, HEPAC #### [address] [address] UA Appear Clear Normal Clear [facility] ([place] Comment on above: Performed By: #### CMP, GFR, AMM, LAC, HEPAC #### [address] [address] UA Blood Negative Normal Neg-Trace [facility] ([place] Comment on above: Performed By: #### CMP, GFR, AMM, LAC, HEPAC #### [address] [address] UA Leuk Est Small Abnormal Negative [facility] ([place] Comment on above: Performed By: #### CMP, GFR, AMM, LAC, HEPAC #### [address] [address] UA Nitrite Negative Normal Negative [facility] ([place] Comment on above: Performed By: #### CMP, GFR, AMM, LAC, HEPAC #### [address] [address] UA pH 5.5 Normal 5.0 - 8.0 [facility] ([place] Comment on above: Performed By: #### CMP, GFR, AMM, LAC, HEPAC #### [address] [address] UA Protein Negative Normal Negative [facility] ([place] Comment on above: Performed By: #### CMP, GFR, AMM, LAC, HEPAC #### [address] [address] UA Spec Grav >=1.030 Abnormal 1.006-1.029 [facility] ([place] Comment on above: Performed By: #### CMP, GFR, AMM, LAC, HEPAC #### [address] [address] UA Specimen Type Void Normal [facility] ([place] Comment on above: Performed By: #### CMP, GFR, AMM, LAC, HEPAC #### [address] [address] UA Urobilinogen 2.0 E.U./dL Abnormal 0.2-1.0 [facility] [place] [place]: Performed By: #### CMP, GFR, AMM, LAC, HEPAC #### [address] [address] Urobilinogen (U) [Mass/Vol] Negative Normal Neg-Trace [facility] ([place] Comment on above: Result Comment: Bilirubin co nfirmed by alternate method Performed By: #### CMP, GFR, AMM, LAC, HEPAC #### [address] [address] UAMIC on 10-04-2022 UA RBC Rare Normal 0-2 [facility] ([place] Comment on above: Performed By: #### CMP, GFR, AMM, LAC, HEPAC #### [address] [address] UA Squam Epithelial 3-5 Normal 0-20 [facility] ([place] Comment on above: Performed By: #### CMP, GFR, AMM, LAC, HEPAC #### [address] [address] UA Transitional Epithelial 0-2 Normal A [facility] ([place] Comment on above: Performed By: #### CMP, GFR, AMM, LAC, HEPAC #### [address] [address] UA WBC 5-10 Abnormal 0-5 [facility] ([place] Comment on above: Performed By: #### CMP, GFR, AMM, LAC, HEPAC #### [address] [address] US ABDOMEN/ELASTOGRAPHY/DOPPLER ABDOMEN on 10-04-2022 US ABDOMEN/ELASTOGRAPHY/DOPPLER ORIGINAL Normal [facility] ABDOMEN EXAMINATION: [facility] ([place] Hepatic elastography TECHNIQUE: 2D Shear Wave Elastography of the liver was performed in the right lobe. COMPARISON: None HISTORY: Cirrhosis FINDINGS: Exam sensitivity is decreased by persistent involuntar y patient motion artifact. Additionally the patient was unable to suspe nd respiration or follow direction. Cirrhotic morphology of the liver is demonstrated. Spl enomegaly is noted at 15.2 cm. Common bile duct measuring 0.4 cm. No biliary dilatation. Gallbladder surgically absent. A pancreas is suboptimally visualized. And kidneys kingsley ear within normal limits. However and left kidney is suboptimally visual ized by positioning. Aorta and IVC are also not well visualized. Median velocity: 1.69 m/s IQR/median ratio: 14 5% (Value less than or equal to 15% should be seen to ens ure exam adequacy.) IMPRESSION: Limited examination. Elastography indicates a mild mod erate risk of clinically significant liver fibrosis. Cirrhotic morphology of the liver. Splenomegaly Shear Wave Liver Elastography-liver fibrosis staging Median Velocity: Recommendation: 1.35-1.66 m/s (5.48 kPa - 8.29 kPa) Normal to mild risk of clinically significant liver fibrosis : METAVIR Stage F1 1.66-1.77 m/s (8.29 kPa - 9.40 kPa) Vavv-ir-mgkymtwm risk of clinically significant liver fibrosis. (METAVIR Stage F2) 1.77-1.99 m/s (9.40 kPa - 11.9 kPa) Moderate to severe risk of clinically significant live r fibrosis (METAVIR Stage F3) > 1.99 m/s (> 11.9 kPa) Advanced Fibrosis and/or Cirrhosis: (METAVIR Stage F4) Interpreted by: Owen Aguilar Preliminary Report By: Owen Aguilar Electronically signed By Owen Aguilar Dictated Date: 10/04/2022 8:37:01 PM Prelim Date: 10/04/2022 8:40:55 PM Sign Date: 10/04/2022 8:40:55 PM Ordering Provider: JALEESA PEREZ .Auto Diff on 10-03-2022 Basophil, Absolute 0.0 10 3/mcL Normal 0.0-0.3 [facility] ([place] Comment on above: Performed By: #### CMP, GFR, AMM, LAC, HEPAC #### [address] [address] Basophils/100 WBC (Bld) 0.8 % Normal 0.0-2.5 [facility] ([place] Comment on above: Performed By: #### CMP, GFR, AMM, LAC, HEPAC #### [address] [address] Eosinophil, Absolute 0.3 10 3/mcL Normal 0.0-0.7 [facility] ([place] Comment on above: Performed By: #### CMP, GFR, AMM, LAC, HEPAC #### [address] [address] Eosinophils/100 WBC (Bld) 5.6 % Normal 0.0-6.0 [facility] ([place] Comment on above: Performed By: #### CMP, GFR, AMM, LAC, HEPAC #### [address] [address] Lymphocyte, Absolute 1.0 10 3/mcL Normal 0.9-4.3 [facility] ([place] Comment on above: Performed By: #### CMP, GFR, AMM, LAC, HEPAC #### [address] [address] Lymphocytes/100 WBC (Bld) 20.8 % Normal 20.0-40.0 [facility] ([place] Comment on above: Performed By: #### CMP, GFR, AMM, LAC, HEPAC #### [address] [address] Monocyte, Absolute 0.6 10 3/mcL Normal 0.1-1.4 [facility] ([place] Comment on above: Performed By: #### CMP, GFR, AMM, LAC, HEPAC #### [address] [address] Monocytes/100 WBC (Bld) 12.6 % Normal 2.0-13.0 [facility] ([place] Comment on above: Performed By: #### CMP, GFR, AMM, LAC, HEPAC #### [address] [address] Neutrophils/100 WBC (Bld) 60.2 % Normal 50.0-75.0 [facility] ([place] Comment on above: Performed By: #### CMP, GFR, AMM, LAC, HEPAC #### [address] [address] .GFR on 10-03-2022 GFR Non- >60 Normal [facility] ([place] Comment on above: Result Comment: GFR Population mean for Afri can Chinese, Non- Americans Ages 20-29 = 116 mL/min/1.73 sq.m. Ages 30-39 = 107 mL/min/1.73 sq.m. Ages 40-49 = 99 mL/min/1.73 sq.m. Ages 50-59 = 93 mL/min/1.73 sq.m. Ages 60-69 = 85 mL/min/1.73 sq.m. Ages 70+ = 75 mL/min/1.73 sq .m. Chronic Kidney Disease: Less than 60 mL/min/1.73 square meters End Stage Renal Disease: Les s than 15 mL/min/1.73 square meters Performed By: #### CMP, GFR, AMM, LAC, HEPAC #### [address] [address] GFR >60 Normal [facility] ([place] Comment on above: Result Comment: GFR Population mean for Afri can Chinese, Non- Americans Ages 20-29 = 116 mL/min/1.73 sq.m. Ages 30-39 = 107 mL/min/1.73 sq.m. Ages 40-49 = 99 mL/min/1.73 sq.m. Ages 50-59 = 93 mL/min/1.73 sq.m. Ages 60-69 = 85 mL/min/1.73 sq.m. Ages 70+ = 75 mL/min/1.73 sq .m. Chronic Kidney Disease: Less than 60 mL/min/1.73 square meters End Stage Renal Disease: Les s than 15 mL/min/1.73 square meters Performed By: #### CMP, GFR, AMM, LAC, HEPAC #### [place] [address] .NEUABS on 10-03-2022 Neutrophil, Absolute 3.0 10 3/mcL Normal 2.3-8.1 [facility] ([place] Comment on above: Performed By: #### CMP, GFR, AMM, LAC, HEPAC #### [address] [address] AAT on 10-03-2022 Alpha 1 Antitrypsin 150 mg/dL Normal 78-200 [facility] ([place] Comment on above: Result Comment: Note - New Reference Range in effect 20 Performed By: #### CMP, GFR, AMM, LAC, HEPAC #### [place] [id number] ACETAMINOPHEN on 10-03-2022 Acetaminophen [Mass/Vol] ug/mL Low 10.0 - 30.0 [facility] Comment on above: Performed By: #### [id number] ## ## [facility],[address] [place] [address] AFPS on 10-03-2022 AFP, Tumor Marker 3.3 ng/mL Normal 0.0-8.5 [facility] ([place]) Comment on above: Result Comment: Patient resu lts determined by assays using different manufacturers for methods may not be comparable. Performed By: #### CMP, GFR, AMM, LAC, HEPAC #### [address] [address] ALCOHOL-BLOOD MEDICAL on 10-03-2022 Ethanol [Mass/Vol] mg/dL Normal 0 - 50 [facility] Comment on above: Performed By: #### [id number] ## ## [facility],[address] [place] [address] AMM on 10-03-2022 Ammonia 65 mcmol/l High 11-32 [facility] ([place] Comment on above: Performed By: #### CMP, GFR, AMM, LAC, HEPAC #### [place] [id number] AMMONIA on 10-03-2022 Ammonia (P) [Moles/Vol] 115.0 umol/L High 11.0 - 32.0 [facility] Comment on above: Performed By: #### [id number] ## ## [facility],[address] [place] [address] B12 on 10-03-2022 Cobalamin (Vitamin B12) 682 pg/mL Normal 211-911 [facility] ([place] [Mass/Vol] Comment on above: Performed By: #### CMP, GFR, AMM, LAC, HEPAC #### [address] [address] CBC on 10-03-2022 Erythrocyte distribution width 18.2 % High 11.5-15.5 [facility] ([place] (RBC) [Ratio] Comment on above: Performed By: #### CMP, GFR, AMM, LAC, HEPAC #### [facility] [address] [place] [address] Hematocrit (Bld) [Volume 32.0 % Low 34.0-46.0 [facility] ([place] fraction] Comment on above: Performed By: #### CMP, GFR, AMM, LAC, HEPAC #### [place] [address] Hgb 10.1 G/dL Low 12.0-16.0 [facility] ([place] Comment on above: Performed By: #### CMP, GFR, AMM, LAC, HEPAC #### [place] [id number] MCH (RBC) [Entitic mass] 22.9 pg Low 27.0-33.0 [facility] ([place] Comment on above: Performed By: #### CMP, GFR, AMM, LAC, HEPAC #### [place] [address] MCHC 31.5 G/dL Low 32.0-36.0 [facility] ([place] Comment on above: Performed By: #### CMP, GFR, AMM, LAC, HEPAC #### [place] [address] MCV (RBC) [Entitic vol] 72.5 fL Low 80.0-99.0 [facility] ([place] Comment on above: Performed By: #### CMP, GFR, AMM, LAC, HEPAC #### [place] [address] Platelet 103 10 3/mcL Low 150-450 [facility] ([place] Comment on above: Performed By: #### CMP, GFR, AMM, LAC, HEPAC #### [place] [address] Platelet mean volume (Bld) 8.6 fL Normal 6.6-10.5 [facility] ([place]) [Entitic vol] Comment on above: Performed By: #### CMP, GFR, AMM, LAC, HEPAC #### [place] [address] RBC 4.41 10 6/mcL Normal 4.10-5.30 [facility] ([place] Comment on above: Performed By: #### CMP, GFR, AMM, LAC, HEPAC #### [facility] [address] [place] [address] WBC 5.0 10 3/mcL Normal 4.5-10.8 [facility] ([place] Comment on above: Performed By: #### CMP, GFR, AMM, LAC, HEPAC #### [facility] [address] [place] [address] CBC + DIFF on 10-03-2022 Baso # 0.00 x10EE3/UL Normal 0.00 - 0.10 [facility] Comment on above: Performed By: #### [id number] ## ## [facility],[address] [place] [address] Basophils/100 WBC (Bld) 0.7 % Normal 0.0 - 2.0 [facility] Comment on above: Performed By: #### [id number] ## ## [facility],[address] [place] [address] CBC + DIFF Normal [facility] Comment on above: Result Comment: CBC-COMPLETE BLOOD COUNT Performed By: #### [id number] ## ## [facility],[address] [place] [address] EO # 0.20 x10EE3/UL Normal 0.00 - 0.50 [facility] Comment on above: Performed By: #### [id number] ## ## [facility],[address] [place] [address]23[address] Eosinophils/100 WBC (Bld) 4.7 % Normal 0.0 - 7.0 [facility] Comment on above: Performed By: #### [id number] ## ## [facility],[address] [place] [address] Erythrocyte distribution width 18.6 % High 12.0 - 15. 6 [facility] (RBC) [Ratio] [facility] Comment on above: Performed By: #### [id number] ## ## [facility],[address] [place] [address] Hematocrit (Bld) [Volume 31.5 % Low 34.0 - 46.0 [facility] Comment on above: Performed By: #### [id number] ## ## [facility],[address] [place] [address] Hemoglobin (Bld) [Mass/Vol] 9.6 g/dL Low 12.0 - 16.0 [facility] Comment on above: Performed By: #### [id number] ## ## [facility],[address] [place] [address] Lymph # 0.70 x10EE3/UL Low 0.80 - 2.80 [facility] Comment on above: Performed By: #### [id number] ## ## [facility],[address] [place] [address] Lymphocytes/100 WBC (Bld) 17.3 % Low 20.0 - 45.0 [facility] Comment on above: Performed By: #### [id number] ## ## [facility],[address] [place] [address] MANUAL DIFF N/A Normal [facility] Comment on above: Performed By: #### [id number] ## ## [facility],[address] [place] [address] MCH (RBC) [Entitic mass] 22 pg Low 27 - 33 [facility] Comment on above: Performed By: #### [id number] ## ## [facility],[address] [place] [address] MCHC 30 X10 3 Low 32 - 36 [facility] Comment on above: Performed By: #### [id number] ## ## [facility],[address] [place] [address] MCV (RBC) [Entitic vol] 74 fL Low 80 - 99 [facility] Comment on above: Performed By: #### [id number] ## ## [facility],[address] [place] [address] MICROCYTES 1+ Normal [facility] Comment on above: Result Comment: {CD] Performed By: #### [id number] ## ## [facility],[address] [facility] [address] Sequoyah # 0.50 x10EE3/UL Normal 0.20 - 1.00 [facility] Comment on above: Performed By: #### [id number] ## ## [facility],[address] [place] [address] MONOS % 13.2 % High 0.0 - 10.0 [facility] Comment on above: Performed By: #### [id number] ## ## [facility] [facility] [address] Morphology Giovanni (Bld) [Interp] SEE BELOW Normal [facility] Comment on above: Performed By: #### [id number] ## ## [facility] [facility] [address] Neut # 2.70 x10EE3/UL Normal 1.50 - 7.10 [facility] Comment on above: Performed By: #### [id number] ## ## [facility],[address] [place] [address] Neutrophils/100 WBC (Bld) 64.1 % Normal 46.0 - 76.0 [facility] Comment on above: Performed By: #### [id number] ## ## [facility] [facility] [address] PLATELET 99 x10EE3/UL Low 150 - 450 [facility] Comment on above: Performed By: #### [id number] ## ## [facility] [facility] [address] Platelet mean volume (Bld) 8.3 fL Normal 6.6 - 10.5 [facility] Comment on above: Result Comment: AUTOMATED DI FFERENTIAL Performed By: #### [id number] ## ## [facility],[address] [place] [address] RBC 4.28 x 10EE6/UL Normal 4.10 - 5.30 [facility] Comment on above: Performed By: #### [id number] ## ## [facility],[address] [place] [address] WBC 4.1 x 10EE3/UL Low 4.5 - 10.8 [facility] Comment on above: Performed By: #### [id number] ## ## [facility],[address] [place] [address] CERUL on 10-03-2022 Ceruloplasmin 26.0 mg/dL Normal 22.0-58.0 [facility] ([place] Comment on above: Performed By: #### CMP, GFR, AMM, LAC, HEPAC #### [place] [address] CHEST 1 VIEW on 10-03-2022 CHEST 1 VIEW [facility] Normal [place] [address] Patient: EVER MCKEON Phone#: : 1970 Age: 51 Gender: F Pt. Type: ER Account: [id number] Location: 052 Ordering: SAW RIVER Exam Date: 10/02/2022/23:20 Family Phys: Charge Code: [id number] Physician: [facility] Order #: [id number] Dose#: PROCEDURE: X-RAY CHEST 1 VIEW COMPARISON: None. INDICATIONS: Pneumonia. FINDINGS: LUNGS: Normal. No significant pulmonary parenchymal ab normalities. VASCULATURE: Normal. Unremarkable pulmonary vasculatur e. CARDIAC: Normal. No cardiac silhouette abnormality or cardiomegaly. MEDIASTINUM: Normal. No visible mass or adenopathy. PLEURA: Normal. No effusion or pleural thickening. BONES: Normal. No fracture or visible bony lesion. OTHER: Negative. CONCLUSION: No acute disease. Dictated by: Danette Welsh MD on 10/04/2022 at 11:42 Approved by: Danette Welsh MD on 10/04/2022 at 11:43 CMP on 10-03-2022 Albumin Level 3.4 G/dL Normal 3.2-4.8 [facility] ([place] Comment on above: Performed By: #### CMP, GFR, AMM, LAC, HEPAC #### [address] [address] Albumin/Globulin [Mass ratio] 1.0 {ratio} Normal 0.9-1.6 [facility] ([place] Comment on above: Performed By: #### CMP, GFR, AMM, LAC, HEPAC #### [address] [address] ALP [Catalytic activity/Vol] 147 U/L High 38-126 [facility] ([place] Comment on above: Performed By: #### CMP, GFR, AMM, LAC, HEPAC #### [address] [address] ALT [Catalytic activity/Vol] 29 U/L Normal 10-49 [facility] ([place] Comment on above: Performed By: #### CMP, GFR, AMM, LAC, HEPAC #### [address] [address] AST [Catalytic activity/Vol] 44 U/L High 8-34 [facility] ([place] Comment on above: Performed By: #### CMP, GFR, AMM, LAC, HEPAC #### [address] [address] Bili Total 1.20 mg/dL Normal 0.20-1.20 [facility] ([place] Comment on above: Result Comment: Use of this assay is not recommended for patients undergoing treatment with eltrombopag d ue to the potential for falsely elevated results. Performed By: #### CMP, GFR, AMM, LAC, HEPAC #### [address] [address] BUN/Creatinine Ratio 18.3 ratio Normal 10.0-22.0 [facility] ([place] Comment on above: Performed By: #### CMP, GFR, AMM, LAC, HEPAC #### [address] [address] Calcium [Mass/Vol] 9.5 mg/dL Normal 8.7-10.4 [facility] ([place] Comment on above: Performed By: #### CMP, GFR, AMM, LAC, HEPAC #### [address] [address] Chloride [Moles/Vol] 115 mmol/L High 98-110 [facility] ([place] Comment on above: Performed By: #### CMP, GFR, AMM, LAC, HEPAC #### [address] [address] CO2 [Moles/Vol] 23 mmol/L Normal 22-32 [facility] Comment on [place]: Performed By: #### CMP, GFR, AMM, LAC, HEPAC #### [address] [address] Creatinine [Mass/Vol] 0.60 mg/dL Normal 0.50-1.20 [facility] ([place] Comment on above: Performed By: #### CMP, GFR, AMM, LAC, HEPAC #### [address] [address] Electrolyte Balance 9.0 mEq/L Normal 4.0-15.0 [facility] ([place] Comment on above: Performed By: #### CMP, GFR, AMM, LAC, HEPAC #### [address] [address] Globulin 3.4 G/dL Normal 1.5-3.8 [facility] ([place] Comment on above: Performed By: #### CMP, GFR, AMM, LAC, HEPAC #### [address] [address] Glucose [Mass/Vol] 104 mg/dL Normal 70-110 [facility] ([place] Comment on above: Performed By: #### CMP, GFR, AMM, LAC, HEPAC #### [address] [address] Potassium [Moles/Vol] 3.7 mmol/L Normal 3.5-5.0 [facility] ([place] Comment on above: Performed By: #### CMP, GFR, AMM, LAC, HEPAC #### [address] [address] Sodium [Moles/Vol] 147 mmol/L High 136-145 [facility] ([place] Comment on above: Performed By: #### CMP, GFR, AMM, LAC, HEPAC #### [address] [address] Total Protein 6.8 G/dL Normal 5.7-8.2 [facility] ([place] Comment on above: Result Comment: Note - New Reference Range in effect 20 Performed By: #### CMP, GFR, AMM, LAC, HEPAC #### [address] [address] Urea nitrogen [Mass/Vol] 11.0 mg/dL Normal 8.0-22.0 [facility] ([place] Comment on above: Performed By: #### CMP, GFR, AMM, LAC, HEPAC #### [address] [address] CMP with eGFR on 10-03-2022 AGE 51 years Normal [facility] Comment on above: Performed By: #### [id number] ## ## [facility],[address] [place] [address] Albumin [Mass/Vol] 3.3 g/dL Low 3.4 - 5.0 [facility] Comment on above: Performed By: #### [id number] ## ## [facility],[address] [place] [address] Albumin/Globulin [Mass ratio] 0.9 {ratio} Normal 0.9 - 1.6 [facility] Comment on above: Performed By: #### [id number] ## ## [facility] tr[facility],[address] [facility] [address] ALK PHOS 189 U/L High 46 - 116 [facility] Comment on above: Performed By: #### [id number] ## ## [facility] [facility] [address] ALT [Catalytic activity/Vol] 31 U/L Normal 14 - 59 [facility] Comment on above: Performed By: #### [id number] ## ## [facility],[address] [place] [id number] Anion gap [Moles/Vol] 12 mmol/L Normal 10 - 20 [facility] Comment on above: Performed By: #### [id number] ## ## [facility],[address] [place] [address] AST [Catalytic activity/Vol] 38 U/L Normal 13 - 39 [facility] Comment on above: Performed By: #### [id number] ## ## [facility],[address] [facility] [address] B/C RATIO 12 ratio Normal 0 - 30 [facility] Comment on above: Performed By: #### [id number] ## ## [facility],[address] [facility] [address] Bilirubin [Mass/Vol] 0.7 mg/dL Normal 0.2 - 1.0 [facility] Comment on above: Performed By: #### [id number] ## ## [facility],[address] [facility] [address] Calcium [Mass/Vol] 8.9 mg/dL Normal 8.5 - 10.1 [facility] Comment on above: Performed By: #### [id number] ## ## [facility],[address] [facility] [address] Chloride [Moles/Vol] 113 mmol/L High 98 - 107 [facility] Comment on above: Performed By: #### [id number] ## ## [facility],[address] [place] [address] CMP with eGFR Normal [facility] Comment on above: Result Comment: COMPREHENSIV E METABOLIC PANEL Performed By: #### [id number] ## ## [facility],[address] [place] [address]33 CO2 [Moles/Vol] 23.3 mmol/L Normal 21.0 - 32.0 [facility] Comment on above: Performed By: #### [id number] ## ## [facility],[address] [place] [address] Creatinine [Mass/Vol] 0.84 mg/dL Normal 0.55 - 1.02 [facility] Comment on above: Performed By: #### [id number] ## ## [facility],[address] [place] [address]190 GFR/1.73 sq M.predicted mL/min/{1.73_m2} Normal 60 - 999 [facility]D Hospit al (S/P/Bld) [Vol rate/Area] Comment on above: Performed By: #### [id number] ## ## [facility],[address] [place] [address] Result Comment: ACCORDING TO THE NATIONAL KIDNEY DISEASE EDUCATION PROGRAM(NKDE), A NORMAL eGFR IS A VALUE GREATER THAN OR E QUAL TO 60 ML/MIN/1.73 SQ METERS. CHRONIC KIDNEY DISEASE: <60m L/MIN/1.73 SQ METERS KIDNEY FAILURE: <15mL/MIN/1. 73 SQ METERS THIS TEST SHOULD ONLY BE USE D FOR PATIENTS 18 YEARS OF AGE AND OLDER. Globulin (S) [Mass/Vol] 3.6 g/dL Normal 1.5 - 3.8 [facility] Comment on above: Performed By: #### [id number] ## ## [facility],[address] [place] [address]69 Glucose [Mass/Vol] 203 mg/dL High 74 - 106 [facility] Comment on above: Performed By: #### [id number] ## ## [facility],[address] [place] [address]24 Potassium [Moles/Vol] 3.5 mmol/L Normal 3.5 - 5.1 [facility] Comment on above: Performed By: #### [id number] ## ## [facility],[address] [place], [place] [id number] Protein [Mass/Vol] 6.9 g/dL Normal 6.4 - 8.2 [facility] Comment on above: Performed By: #### [id number] ## ## [facility],[address] [place] [address] Sodium [Moles/Vol] 145 mmol/L Normal 136 - 145 [facility] Comment on above: Performed By: #### [id number] ## ## [facility],[address] [place] [address] Urea nitrogen [Mass/Vol] 10 mg/dL Normal 7 - 18 [facility] Comment on above: Performed By: #### [id number] ## ## [facility],[address] [place] [address] CORONAVIRUS (SARS) ANTIGEN TEST on 09-24 EXTERNAL QC DONE? YES Normal [facility] Comment on above: Performed By: #### [id number] ## ## [facility],[address] [place] [address] INTERNAL CONTROL PASS Normal [facility] Comment on above: Performed By: #### [id number] ## ## [facility],[address] [place], [place] [id number] SARS ANTIGEN Negative Normal NORMAL: NEGATIVE [facility] Comment on above: Performed By: #### [id number] ## ## [facility],[address] [place], [place] [id number] SEND TO ? NO Normal [facility] Comment on above: Result Comment: SARS-CoV-2 THIS TEST IS BEING USED UNDE R THE FDA EUA PROCEDURE. THIS ASSAY HAS BEEN VALIDATED AT [facility] FOR USE WITH NASAL AND NASOPHARYNGEAL SWAB SPECIMENS. INTERPRETIVE DATA TEST RESULTS SHOULD ALWAYS B E CONSIDERED IN THE CONTEXT OF CLINICAL OBSERVATIONS AND EPIDEMIOLOG ICAL DATA IN MAKING FINAL DIAGNOSIS AND PATIENT MANAGEMENT DECISIONS. PATIEN T MANAGEMENT SHOULD FOLLOW CURRENT CDC GUIDELINES. THE ABIGAIL SARS ANTIGEN KEAGAN D OES NOT DIFFERENTIATE BETWEEN SARS-CoV & SARS-CoV-2. A POSITIVE TEST RESULT INDIC ATES THE PRESENCE OF SARS-CoV-2 NUCLEOCAPSID PROTEIN ANTIGEN, AND THE PATIENT IS INFECTED WITH THE VIRUS AND PRESUMED TO BE CONTAGIOUS. A NEGATIVE TEST RESULT FOR T HIS TEST MEANS THAT SARS-CoV-2 NUCLEOCAPSID PROTEIN ANTIGEN WAS NOT PRESENT IN T HE SPECIMEN ABOVE THE LIMIT OF DETECTION. HOWEVER, A NEGATIVE RESULT DOES NOT RUL E OUT COVID-19 AND SHOULD NOT BE USED THE SOLE BASIS FOR TREATMENT OR PATIE NT MANAGEMENT DECISIONS. A NEGATIVE RESULT DOES NOT EXCLUDE THE POSSIBILITY OF C OVID-19. NEGATIVE RESULTS, FROM PATIENTS WITH SYMPTOM ONSET BEYOND FIVE DA YS, SHOULD BE TREATED PRESUMPTIVE AND CONFIRMATION WITH A MOLECULA R ASSAY, IF NECESSARY, FOR PATIENT MANAGEMENT, MAY BE PERFORMED. WHEN DIAGNOSTIC TESTING IS N EGATIVE, THE POSSIBLILTY OF A FALSE NEGATIVE RESULT SHOULD BE CONSIDERED IN THE CONTEXT OF A PATIENT'S RECENT EXPOSURES AND THE PRESENCE OF CLINICAL SIGNS A ND SYMPTOMS CONSISTENT WITH COVID-19. THE POSSIBILITY OF A FALSE NEGAT COREEN RESULT SHOULD ESPECIALLY BE CONSIDERED IF THE PATIENT'S RECENT EXPOSURES O R CLINICAL PRESENTATION INDICATE THAT COVID-19 IS LIKELY, AND DIAGNOSTIC TESTS FOR OTHER CAUSES OF ILLNESS (e.g., OTHER RESPIRATORY ILLNESS) ARE NEG ATIVE. IF COVID-19 IS STILL SUSPECTED BASED ON EXPOSURE HISTORY TOGETHER WI TH OTHER CLINICAL FINDINGS, RE-TESTING SHOULD BE CONSIDERED BY [employer] IN CONSULTATION WITH PUBLIC HEALTH AUTHORITIES. Performed By: #### [id number] ## ## [facility],[address] [place] [address] CT ABDOMEN/PELVIS WO on 10-03-2022 CT ABDOMEN/PELVIS WO [facility] Normal [place] [address] Patient: EVER MCKEON Phone#: : 1970 Age: 51 Gender: F Pt. Type: ER Account: [id number] Location: 052 Ordering: SAW RIVER Exam Date: 10/03/2022/3:22 Family Phys: Charge Code: [id number] Physician: [facility] Order #: [id number] Dose#: 26.00 PROCEDURE: CT ABDOMEN/PELVIS WITHOUT CONTRAST COMPARISON: None. INDICATIONS: Abdominal pain. TECHNIQUE: CT images were created without intravenous contrast. All CT scans at this facilit y use dose modulation, iterative reconstruction, and/or weight based dosing when appropriate to reduce radiati on dose to as low as reasonably achievable. IV CONTRAST: No IV contrast used,0ml TOTAL DOSE: 26.00 CTDIvol(mGy) FINDINGS: LIVER: Nodular hepatic surfa ce suspicious for cirrhotic changes. No enlargement, atrophy, abnormal density, or significant focal lesion . BILIARY: The gallbladder is absent. PANCREAS: Normal. No lesion, fluid collection, d uctal dilatation, or atrophy. SPLEEN: Splenomegaly. KIDNEYS: Normal. No mass, obstruction, or calcificatio n. ADRENALS: Normal. No mass or enlargement. AORTA/VASCULAR: Normal. No aneurysm. RETROPERITONEUM: Normal. No mass or adenopathy. BOWEL/MESENTERY: Moderate hi atal hernia is present. There is sigmoid diverticulosis without inflammatory change. ABDOMINAL WALL: Small umbilical hernia with fat. URINARY BLADDER: Normal. No visible focal wall thickening, lesion, or calculus. PELVIC NODES: Normal. No adenopathy. PELVIC ORGANS: Normal. No vi sible mass. Pelvic organs appropriate for patient age. BONES: Degenerative changes of the spine are present at the L5-S1 level. Pars defect is present. Continued Report - Page 2 of 2 Patient: EVER MCKEON Phone#: : 1970 Age: 51 Gender: F Pt. Type: ER Account: [id number] Location: 052 Ordering: SAW RIVER Exam Date: 10/03/2022/3:22 Family Phys: Charge Code: [id number] Physician: [facility] Order #: [id number] Dose#: 26.00 LUNG BASES: Normal. No visible pulmonary or pleural di sease. OTHER: Negative. CONCLUSION: 1. Splenomegaly. 2. Probable cirrhotic changes the liver. Dictated by: Danette Welsh MD on 10/04/2022 at 12:26 Approved by: Danette Welsh MD on 10/04/2022 at 12:31 CT BRAIN W/O CONTRAST on 10-03-2022 CT BRAIN W/O CONTRAST [facility] Normal [place] [address] Patient: EVER MCKEON Phone#: : 1970 Age: 51 Gender: F Pt. Type: ER Account: [id number] Location: [facility] Ordering: SAW RIVER Exam Date: 10/02/2022/23:14 Family Phys: Charge Code: [id number] Physician: [facility] Order #: [id number] Dose#: 52.30 PROCEDURE: CT BRAIN WITHOUT CONTRAST COMPARISON: None. INDICATIONS: Altered mental status. TECHNIQUE: CT images were obtained without contrast [facility]. All CT scans at this facilit y use dose modulation, iterative reconstruction, and/or weight based dosing when appropriate to reduce radiati on dose to as low as reasonably achievable. IV CONTRAST: No IV contrast used,0ml TOTAL DOSE: 52.30 CTDIvol(mGy) FINDINGS: CEREBRUM: No edema, hemorrha ge, mass, acute infarction, or inappropriate atrophy. CEREBELLUM: No edema, hemorr mar, mass, acute infarction, or inappropriate atrophy. BRAINSTEM: No edema, hemorrh age, mass, acute infarction, or inappropriate atrophy. CSF SPACES: Ventricles, cist erns, and sulci are appropriate for age. No hydrocephalus, subarachnoid hemorrhage, or mass. SKULL: No mass or other significant visible lesion. SINUSES: Limited views demonstrate no si gnificant mucosal thickening or fluid. ORBITS: Limited views are unremarkable. OTHER: Negative. CONCLUSION: No acute disease. Dictated by: Danette Welsh MD on 10/04/2022 at 12:20 Approved by: Danette Welsh MD on 10/04/2022 at 12:22 CULTURE BLOOD [DIANA] on 10-03-2022 Microscopic CULTURE BLOOD [DIANA] Normal Gigi Pomereoh examination of blood, _BLOOD CULTURE_ [facility] culture [facility] FOR SCANNED REPO RT 10/09/22.1520.TLJ.COMPLETE Comment on above: Performed By: #### [id number] ## ## [facility],[address] [place] [address] Microscopic CULTURE BLOOD [DIANA] Normal Gigi Pomereoh examination of blood, _BLOOD CULTURE_ [facility] culture [facility] AND ATTACH[facility] FOR SCANNED REPO RT 10/09/22.1523.TLJ.COMPLETE Comment on above: Performed By: #### [id number] ## ## [facility],[address] [place] [address] FERR on 10-03-2022 Ferritin [Mass/Vol] 6.3 ng/mL Low 8.0-252.0 [facility] ([place] Comment on above: Performed By: #### CMP, GFR, AMM, LAC, HEPAC #### [address] [address] FES on 10-03-2022 Iron [Mass/Vol] 34 ug/dL Low 50-170 [facility] Comment on above: Performed By: #### CMP, GFR, AMM, LAC, HEPAC #### [address] [address] Iron Sat 9 % Normal [facility] ([place] Comment on above: Performed By: #### CMP, GFR, AMM, LAC, HEPAC #### [address] [address] TIBC 397 mcg/dL Normal 250-500 [facility] ([place] Comment on above: Performed By: #### CMP, GFR, AMM, LAC, HEPAC #### [address] [address] FOL on 10-03-2022 Folate 20.61 ng/mL Normal 5.38-24.00 [facility] ([place] Comment on above: Performed By: #### CMP, GFR, AMM, LAC, HEPAC #### [address] [address] HEPAC on 10-03-2022 Hep A IgM Ab Non-Reactive Normal Non-Reactive [facility] ([place] Comment on above: Performed By: #### CMP, GFR, AMM, LAC, HEPAC #### [place] [id number] Hep A IgM Ab Int Normal [facility] ([place] Comment on above: Result Comment: No serologic al evidence of a current Hepatitis A infection. See Interp Performed By: #### CMP, GFR, AMM, LAC, HEPAC #### [place] [id number] Hep B Core IgM Ab Non-Reactive Normal Non-Reactive [facility] ([place] Comment on above: Performed By: #### CMP, GFR, AMM, LAC, HEPAC #### [place] [id number] Hep B Core IgM Ab Int [facility] ([place] Comment on above: Result Comment: Samples with a value < 0.80 Index are considered nonreactive (negative) for IgM antibodies to hepatitis B core antigen. See Interp Performed By: #### CMP, GFR, AMM, LAC, HEPAC #### [place] [id number] Hep C Ab Non-Reactive Normal Non-Reactive [facility] ([place] Comment on above: Performed By: #### CMP, GFR, AMM, LAC, HEPAC #### [place] [id number] Hep C Ab Int [facility] ([place] Comment on above: Result Comment: Nonreactive: Samples with a value < 0.80 are considered nonreactive (negative) for antibodies to HCV. A negative test result does not exclude the possibility of exposure to or infection with HCV. HCV antibodies may be undetectable in some stages of the infection and in some clinical conditions. See Interp Performed By: #### CMP, GFR, AMM, LAC, HEPAC #### [address] [address] Hep A IgM Ab Non-Reactive Normal Non-Reactive [facility] ([place] Comment on above: Performed By: #### CMP, GFR, AMM, LAC, HEPAC #### [address] [address] Hep A IgM Ab Int Normal [facility] ([place] Comment on above: Result Comment: No serologic al evidence of a current Hepatitis A infection. See Interp Performed By: #### CMP, GFR, AMM, LAC, HEPAC #### [address] [address] Hep B Core IgM Ab Non-Reactive Normal Non-Reactive [facility] ([place] Comment on above: Performed By: #### CMP, GFR, AMM, LAC, HEPAC #### [address] [address] Hep B Core IgM Ab Int [facility] ([place] Comment on above: Result Comment: Samples with a value < 0.80 Index are considered nonreactive (negative) for IgM antibodies to hepatitis B core antigen. See Interp Performed By: #### CMP, GFR, AMM, LAC, HEPAC #### [place] [id number] Hep C Ab Non-Reactive Normal Non-Reactive [facility] ([place] Comment on above: Performed By: #### CMP, GFR, AMM, LAC, HEPAC #### [place] [id number] Hep C Ab Int [facility] ([place] Comment on above: Result Comment: Nonreactive: Samples with a value < 0.80 are considered nonreactive (negative) for antibodies to HCV. A negative test result does not exclude the possibility of exposure to or infection with HCV. HCV antibodies may be undetectable in some stages of the infection and in some clinical conditions. See Interp Performed By: #### CMP, GFR, AMM, LAC, HEPAC #### [address] [address] Hep B Surf Ag Non-Reactive Normal Non-Reactive [facility] ([place] Comment on above: Performed By: #### CMP, GFR, AMM, LAC, HEPAC #### [facility] [address] [place] [address] Hep B Surf Ag Non-Reactive Normal Non-Reactive [facility] ([place] Comment on above: Performed By: #### CMP, GFR, AMM, LAC, HEPAC #### [facility] [address] [place] [address] IGA on 10-03-2022 IgA [Mass/Vol] 269 mg/dL Normal 40-350 [facility] ([place] Comment on above: Result Comment: Note - New Reference Range in effect 20 Performed By: #### CMP, GFR, AMM, LAC, HEPAC #### [address] [address] LABORATORY Ordered By: Greg Ely on 10-03-2022 Lactate [Moles/Vol] 1.8 mmol/L Invalid Interpretation 0.2 - 2.0 m mol/L Auto Chem Code SS LABORATORY Ordered By: Greg Champagne on 10-03-2022 Lactate [Moles/Vol] 2.1 mmol/L Invalid Interpretation 0.2 - 2.0 m mol/L AH Auto Chem Code SS LABORATORY Ordered By: [place] on 10-03-2022 Phosphate [Mass/Vol] 3.3 mg/dL Invalid Interpretation 2.4 - 5.1 mg/dL ADM SS Code AFP [Mass/Vol] 3.3 ng/mL Invalid Interpretation 0.0 - 8.5 ng/mL ADM SS Code Alpha 1 antitrypsin 150 mg/dL Invalid Interpretation 78 - 200 mg /dL ADM SS [Mass/Vol] Code Ceruloplasmin [Mass/Vol] 26.0 mg/dL Invalid Interpretation 22.0 - 58.0 ADM SS Code mg/dL Cobalamin (Vitamin B12) 682 pg/mL Invalid Interpretation 211 - 9 11 pg/mL AH ADM SS [Mass/Vol] Code Ferritin [Mass/Vol] 6.3 ng/mL Invalid Interpretation 8.0 - 252.0 ADM SS Code ng/mL Folate [Mass/Vol] 20.61 ng/mL Invalid Interpretation 5.38 - 24.00 ADM SS Code ng/mL IgA [Mass/Vol] 269 mg/dL Invalid Interpretation 40 - 350 mg/dL A H ADM SS Code Iron [Mass/Vol] 34 ug/dL Invalid Interpretation 50 - 170 mcg/dL AH ADM SS Code Iron binding capacity 397 mcg/dL Invalid Interpretation 250 - 500 AH ADM SS [Mass/Vol] Code mcg/dL Iron saturation [Mass 9 1 Invalid Interpretation AH ADM SS fraction] Code LABORATORY Ordered By: Obdulia Drew on 10-03-2022 INR Coag (PPP) 1.2 {INR} Invalid Interpretation AH Auto Coag [Relative time] Code SS PT Coag (PPP) [Time] 14.1 s Invalid Interpretation 9.0 - 14.9 AH Auto Coag Code seconds SS LABORATORY Ordered By: Carla ley 10-03-2022 Mitochondria Ab IF Pos 320 or > Invalid Interpretation AH Man Viro/Sero (S) [Titer] (10/03/22 12:46 PM) Code SS Mitochondria Ab IF Ql See Titer Invalid Interpretation Neg 20 AH Man Viro/Sero (S) (10/03/22 12:46 PM) Code SS Nuclear Ab IF (S) 40 Invalid Interpretation AH Man Viro/Sero [Titer] (10/03/22 12:46 PM) Code SS Nuclear Ab IF Ql (S) See Titer Invalid Interpretation Neg 40 AH Man Viro/Sero (10/03/22 12:46 PM) Code SS Nuclear Ab pattern IF Speckled 3 Invalid Interpretation AH Man Viro/Sero (S) [Interp] (10/03/22 12:46 PM) Code SS Comment on above: Result Comment: At [place], an SELIN titer of less than 160 is not considered suggestive of sig nificant rheumatoid disease. If clinical suspicion is high, suggest repeat testing in 1-2 months. Smooth muscle Ab Neg 20 Invalid Interpretation Neg 20 A H Man Viro/Sero SS IF Ql (S) (10/03/22 12:46 PM) Code tTG IgA IA Qn 1 Invalid Interpretation <=20.0 AH A uto Viro/Sero (S) Code SS LAC on 10-03-2022 Lactic Acid Lvl 1.8 mmol/L Normal 0.2-2.0 [facility] Comment on above: Order Comment: Ordered carissa carreno to Lactic Acid result greater than or equal to 2.0 Performed By: #### LAC #### [facility] [address] [place] [address] Lactic Acid Lvl 2.1 mmol/L High 0.2-2.0 [facility] Comment on above: Performed By: #### CMP, GFR, AMM, LAC, HEPAC #### [address] [address] LACTATE on 10-03-2022 Lactate [Moles/Vol] 1.5 mmol/L Normal 0.4 - 2.0 [facility] Comment on above: Performed By: #### [id number] ## ## [facility],[address] [place] [address] Lactate [Moles/Vol] 3.0 mmol/L High 0.4 - 2.0 [facility] Comment on above: Result Comment: LACTATE 3 HR NOTIFIED TO: _PEYTON 10/03/22.0035.AEL. . . LACTATE 3 HR NOTIFIED BY: _A EL 10/03/22.0035.AEL. . . Performed By: #### [id number] ## ##[facility],[address] [place] [address] Laboratory - Microbiology and Antimicrob ial susceptibility Ordered By: Lyndsey Crain on 10-03-2022 HAV IgM IA Ql Non-Reactive Invalid Interpretation Non-Reactive AH A DM SS (10/03/22 12:46 PM) Code HAV IgM IA Ql No serological Invalid Interpretation AH Chemistry S evidence of a current Code Hepatitis A infection. HBV core IgM Non-Reactive Invalid Interpretation Non-Reactive AH AD M SS IA Ql (10/03/22 12:46 PM) Code HBV core IgM Samples with a value Invalid Interpretation AH Chemistry S IA Ql < 0.80 Index are Code considered nonreactive (negative) for IgM antibodies to hepatitis B core antigen. HCV Ab IA Ql Non-Reactive Invalid Interpretation Non-Reactive AH AD M SS (10/03/22 12:46 PM) Code HCV Ab IA Ql Nonreactive: Samples Invalid Interpretation AH Chemistry S with a value < 0.80 Code are considered nonreactive (negative) for antibodies to HCV.A negative test result does not exclude the possibility of exposure to or infection with HCV. HCV antibodies may be undetectable in some stages of the infection and in some clinical conditions. Laboratory - Microbiology and Antimicrob ial susceptibility Ordered By: SYSTEM SYSTEM on 10-03-2022 HBV surface Ag IA Non-Reactive Invalid Interpretation Non-Reactive AH ADM SS Ql (10/03/22 12:46 PM) Code MG on 10-03-2022 Magnesium [Mass/Vol] 1.9 mg/dL Normal 1.6-2.4 [facility] ([place] Comment on above: Performed By: #### CMP, GFR, AMM, LAC, HEPAC #### [place] [address] NT-proBNP on 10-03-2022 Natriuretic peptide B (Bld) 19 pg/mL Normal 0 - 125 [facility] [Mass/Vol] [facility] Comment on above: Performed By: #### [id number] ## ##[facility],[address] [place] [address] PHOS on 10-03-2022 Phosphate [Mass/Vol] 3.3 mg/dL Normal 2.4-5.1 [facility] ([place] Comment on above: Result Comment: Note - New Reference Range in effect 20 Performed By: #### CMP, GFR, AMM, LAC, HEPAC #### [place] [address] PRO on 10-03-2022 INR Coag (PPP) [Relative time] 1.2 {INR} Normal [facility] ([place] Comment on above: Result Comment: [employer] (CHEST, 1992, 102:312S-25S) recommended therapeutic rang e for oral anticoagulant therapy is: LOW RISK: Prophylaxis of strar ous thrombosis INR: 2.0-3.0 Treatment of pulmonary embol ism 2.0-3.0 Prevention of systemic embol ism 2.0-3.0 HIGH RISK: Mechanical prosth etic valves 2.5-3.5 Performed By: #### CMP, GFR, AMM, LAC, HEPAC #### [address] [address] PT Coag (PPP) [Time] 14.1 s Normal 9.0-14.9 [facility] ([place]) Comment on above: Result Comment: Effective , Protime results may be affected by some antibiotics (i.e. Ci profloxacin, Azithromycin, Bactrim) which may potentiate the act ion of oral anticoagulants, with further increases in Protime /INR. Performed By: #### CMP, GFR, AMM, LAC, HEPAC #### [place] [address] [place] [address] SALICYLATE on 10-03-2022 SALICYLATE 0.3 mg/dl Low 2.8 - 20.0 [facility] Comment on above: Result Comment: *PATIENTS TR EATED WITH SULFASALAZINE MAY GENERATE A FALSE HIGH RESULT FOR SALICYLATE. *PATIENTS TREATED WITH SULFA PYRIDINE MAY GENERATE A FALSE LOW RESULT FOR SALICYLATE. Performed By: #### [id number] ## ## [facility],[address] [place] [address] TROPONIN I, HIGH SENSITIVITY on 022 HS TROPONIN 6.5 pg/mL Normal 0.0 - 51.4 [facility] Comment on above: Performed By: #### [id number] ## ## [facility],[address] [place] [address] XR CHEST 1 VIEW on 10-03-2022 XR CHEST 1 VIEW ORIGINAL Normal [facility] EXAMINATION: ([place]) ONE XRAY VIEW OF THE CHEST 10/03/2022 2:20 pm COMPARISON: None. HISTORY: ORDERING SYSTEM PROVIDED HISTORY: Reason for Exam: cough FINDINGS: The cardiomediastinal silhouette appears mildly enlarg ed. Likely left atrial enlargement is appreciated. No consolidates are seen. There is no pleural effusion or pneumothorax. No free air seen beneath the level of the diaphragm. The bony thorax appears acutely intact. Rig ht shoulder postsurgical anchors are noted. IMPRESSION: No evidence of an acute process. Mild cardiomegaly with likely left atrial enlargement. Interpreted by: Mustapha Morales MD Preliminary Report By: Mustapha Morales MD Electronically signed By Mustapha Morales MD Dictated Date: 10/03/2022 3:47:55 PM Prelim Date: 10/03/2022 3:48:50 PM Sign Date: 10/03/2022 3:48:50 PM Ordering Provider: JALEESA PEREZ CR Chest Portable on 08-11-2022 CR Chest Portable Patient Name: EVER MCKEON [facility] Diagnostic Radiology ACCESSION EXAM DATE/TIME PROCEDURE ORDERING PROVIDER [id number] 08/11/2022 10:55 EDT CR Chest Portable Crow OGDEN MD, DONTE CPT code 28849 Reason For Exam (CR Chest Portable) cough Report CHEST: CLINICAL INDICATION: Cough TECHNIQUE: AP portable chest COMPARISON: 08/23/2021 FINDINGS: Support devices: EKG leads The cardiomediastinal silhouette appears unchanged fro m the prior exam. The lungs are clear. There is no sizable pleural effusion. Postsurgical changes in the right shoulder. IMPRESSION: No acute process. Report Dictated on Final Dictated: 08/11/2022 11:08 am Dictating Physician: MD CULVER NICHOLAS Signed Date and Time: 08/11/2022 11:10 am Signed by: MD CULVER NICHOLAS Transcribed Date and Time: 08/11/2022 11:08 Group A Strep Screen By PCR on 08-11-20 Group A Strep Screen By NOT Detected [facility] A PCR Expected Result: Not Detected Work Phone: Methodology - Real Time PCR (Cepheid) Test Performed by [facility], [address] Work Phone: Group A Strep Screen by PCR on 08-11-20 Group A Strep Screen by Group A Strep Screen by PCR --> Status: F N ormal [facility] PCR NOT Detected Expected Result: Not Detected Methodology - Real Time PCR (Cepheid) Expected Result: Not Detected Methodology - Real Time PCR (Cepheid) Comment on above: Performed By: #### GASPC ### # [place] [id number] [place] [address] XR CHEST PORTABLE on 08-11-2022 Patient Name: EVER MCKEON Diagnostic Radiology ACCESSION EXAM DATE/TIME PROCEDURE ORDERING PROVIDER [id number] 08/11/2022 10:55 EDT CR Chest Portable MD CARUSO VIJAY CPT code 06784 Reason For Exam (CR Chest Portable) cough Report CHEST: CLINICAL INDICATION: Cough TECHNIQUE: AP portable chest COMPARISON: 08/23/2021 FINDINGS: Support devices: EKG leads The cardiomediastinal silhouette appears unchanged fro m the prior exam. The lungs are clear. There is no sizable pleural effusion. Postsurgical changes in the right shoulder. IMPRESSION: No acute process. Report Dictated on --- Final --- Dictated: 08/11/2022 11:08 am Dictating Physician: MD CULVER NICHOLAS Signed Date and Time: 08/11/2022 11:10 am Signed by: MD CULVER NICHOLAS Transcribed Date and Time: 08/11/2022 11:08 Owen Culver MD - [facility] Patient Name: EVER MCKEON Work Phone: Diagnostic Radiology ACCESSION EXAM DATE/TIME PROCEDURE ORDERING PROVIDER [id number] 08/11/2022 10:55 EDT CR Chest Portable Crow OGDEN MD, VIJAY CPT code 23989 Reason For Exam (CR Chest Portable) cough Report CHEST: CLINICAL INDICATION: Cough TECHNIQUE: AP portable chest COMPARISON: 08/23/2021 FINDINGS: Support devices: EKG leads The cardiomediastinal silhouette appears unchanged fro m the prior exam. The lungs are clear. There is no sizable pleural effusion. Postsurgical changes in the right shoulder. IMPRESSION: No acute process. Report Dictated on --- Final --- Dictated: 08/11/2022 11:08 am Dictating Physician: MD CULVER NICHOLAS Signed Date and Time: 08/11/2022 11:10 am Signed by: MD CULVER NICHOLAS Transcribed Date and Time: 08/11/2022 11:08 Radiology Study observation [facility] (narrative) Work Phone: XR CHEST PORTABLE Ordered By: Owen Culver on 08-11-2022 [facility] Work Phone: CNDS on 06-15-2022 [facility] HNO ID: [id number] Normal [place] Author: MD Lakhwinder Gunn Service: [facility] Author Type: Resident Center Type: Discharge Summary Filed: 06/15/2022 4:40 PM Note Text: Attestation signed by Calvin Urban MD at 6:47 PM Attending Note I personally saw and examined the patient on 06/15/22 . I reviewed the resident's note. I agree with the resident's assessmen t and plan unless otherwise noted. Signature: Calvin Urban MD Attending, [facility] edicine Date: 06/15/2022 Time: 6:47 PM DISCHARGE SUMMARY PATIENT NAME: Ever Mckeon ADMISSION DATE: 06/12/2022 DISCHARGE DATE: 06/15/2022 Attending Physician: Dr. Calvin Urban Code Status: Full code Highest Readmission Risk Score: 19 The 30 day readmissions risk score is derived from an internally validated risk model which evaluates patient level larry racteristics, utilization history, medication orders and lab results up until the day of discharge. Patients with a score of 40 or above are co nsidered highest risk for readmission. Specific patient level drivers w ill be listed at the bottom of the summary. The 30 day readmissions risk score is derived from an internally validated risk model which evaluates patient level larry racteristics, utilization history, medication orders and lab results up until the day of discharge. Patients with a score of 40 or above are co nsidered highest risk for readmission. Specific patient level drivers w ill be listed at the bottom of the summary. PRINCIPAL PROBLEM: Encephalopathy acute Operations During Hospitalization: None Procedures During Hospitalization: EKG, CT scan Hospital Course: 51-year-old female with past medical history of liver cirrhosis, tobacco alcohol dependence in the past, former IV drug user, i jasbir deficiency anemia, perirenal hematoma s/p IR guided drain placeme nt, GERD, diverticulosis, IBS, cholecystitis s/p cholecystectomy , obesity, anxiety, depression, insomnia, seasonal allergies presented to [facility] for evaluation of strokelike symptoms. CT brain demonstrat ed a focal white matter hypodensity in the left frontal chaudhari radiata that was new from 2014 and could represent age-indeterminate lacunar inf arct. CTA head / neck showed diffuse small caliber of the right cervica l vertebral artery, but otherwise was unremarkable with no large vessel oc clusion. Patient was evaluated by neurology, NIHSS score of 2. Neurolog y deemed her speech difficulty likely secondary to anxiety and possible un derlying encephalopathy. [facility] Patient was started on lactulose. Also received Roceph in for SBP prophylaxis. Patient is stable for discharge with recommendation to follow-up with PCP for evaluation of abnormal liver function test and ane aye. Patient is recommended to follow-up with psychiatry she is on mul tiple psychiatric medications putting her at risk of serotonin syndrome. Consider decreasing escitalopram if intermittent delirium persists. Principal Problem (Resolved): Encephalopathy acute POA: Yes Active Problems: Nicotine use disorder, F17.2 POA: Unknown Obesity, Class II, BMI 35-39.9 POA: Unknown Consulting Teams During Hospitalization: Neurology Patient Condition @ Discharge: Stable Patient is able to complete both ADLS and IADLS which represents a return to baseline mental/physical health. Discharge Disposition: Home, Sober Living home Diet: Resume pre-hospital diet Activity: Resume pre-hospital activity Wound/Surgical Site Care: None ALLERGIES Allergen Reactions Vicodin [Hydrocodon* GI Upset Discharge Medications: Discharge Medication List as of 06/15/2022 2:07 PM START taking these medications lactulose (DUPHALAC, CONSTULOSE) 10 gram/15 mL solutio n Take 30 mL by mouth three times daily. Normal, Disp-2700 mL, R-0 CONTINUE these medications which have NOT CHANGED buPROPion XL (WELLBUTRIN XL) 150 mg 24 hr tablet Take 150 mg by mouth once daily. Historical Med loratadine (CLARITIN) 10 mg tablet Take 10 mg by mouth once daily. Historical Med fluticasone propionate (FLONASE NASAL) Use in the nose once daily. Historical Med busPIRone (BUSPAR) 10 mg tablet Take 10 mg by mouth three times daily as needed. Historical Med citalopram (CELEXA) 40 mg tablet Take 40 mg by mouth once daily. Historical Med mirtazapine (REMERON) 15 mg tablet Take 15 mg by mouth daily at bedtime. Historical Med, Long-term prazosin (MINIPRESS) 1 mg cap Take 1 mg by mouth daily at bedtime. Historical Med STOP taking these medications diclofenac (VOLTAREN) 1 % topical gel Comments: Reason for Stopping: nabumetone (RELAFEN) 500 mg tablet Comments: Reason for Stopping: naproxen (NAPROSYN) 500 mg tablet Comments: Sierra (more content not included)... Comprehensive metabolic 2000 panel on 0 06-15-2022 Albumin [Mass/Vol] 3.2 g/dL Low 3.9-4.9 [facility] Comment on above: Order Comment: Specimen Type : BLOOD SPECIMEN Ordering Facility: [facility] Address: [address] [place] [address] Performed By: #### 3298-7, 4 024-6, 5643-2 #### [facility] [id number] [address] [place] [address] [place] Y[place] ALP [Catalytic activity/Vol] 163 U/L High 34-123 [facility] Comment on above: Order Comment: Specimen Type : BLOOD SPECIMEN Ordering Facility: [facility] Address: [address] [place] [address] Performed By: #### 3298-7, 4 024-6, 5643-2 #### [facility] CLIA [id number] [address] ALT With P-5'-P [Catalytic 28 U/L Normal 7-38 A [facility] activity/Vol] Comment on above: Order Comment: Specimen Type : BLOOD SPECIMEN Ordering Facility: [facility] Address: [address] [place] [address] Performed By: #### 3298-7, 4 024-6, 5643-2 #### [facility] CLIA [id number] [address] Anion gap [Moles/Vol] 7 mmol/L Low 9-18 [facility] Comment on above: Order Comment: Specimen Type : BLOOD SPECIMEN Ordering Facility: [facility] Address: [facility] [address] [place] [address] Performed By: #### 3298-7, 4 024-6, 5643-2 #### [facility] CLIA [id number] [address] AST With P-5'-P [Catalytic 39 U/L High 13-35 A [facility] activity/Vol] Comment on above: Order Comment: Specimen Type : BLOOD SPECIMEN Ordering Facility: [facility] Address: [address] [place] [address] Performed By: #### 3298-7, 4 024-6, 5643-2 #### [facility] CLIA [id number] [address] Bilirubin [Mass/Vol] 0.3 mg/dL Normal 0.2-1.3 [facility] Comment on above: Order Comment: Specimen Type : BLOOD SPECIMEN Ordering Facility: [facility] Address: [address] [place] [address] Performed By: #### 3298-7, 4 024-6, 5643-2 #### [facility] CLIA [id number] 1 [place] [address] [place] Calcium [Mass/Vol] 8.5 mg/dL Normal 8.5-10.2 [facility] Comment on above: Order Comment: Specimen Type : BLOOD SPECIMEN Ordering Facility: [facility] Address: [address] [place] [address] Performed By: #### 3298-7, 4 024-6, 5643-2 #### [facility] CLIA [id number] 1 [place] [address] [place] Chloride [Moles/Vol] 108 mmol/L High 97-105 [facility] Comment on above: Order Comment: Specimen Type : BLOOD SPECIMEN Ordering Facility: [facility] Address: [address] [place] [address] Performed By: #### 3298-7, 4 024-6, 5643-2 #### [facility] CLIA [id number] [address] [place] [facility] CO2 [Moles/Vol] 22 mmol/L Normal 22-30 [facility] Comment on above: Order Comment: Specimen Type : BLOOD SPECIMEN Ordering Facility: [facility] Address: [address] [place] [address] Performed By: #### 3298-7, 4 024-6, 5643-2 #### [facility] CLIA [id number] 1 [place] [address] [place] Creatinine [Mass/Vol] 0.66 mg/dL Normal 0.58-0.96 [facility] Comment on above: Order Comment: Specimen Type : BLOOD SPECIMEN Ordering Facility: [facility] Address: [address] [place] [address] Performed By: #### 3298-7, 4 024-6, 5643-2 #### [facility] CLIA [id number] 1 [place] [address] [place] ESTIMATED GLOMERULAR 105 mL/min/1.73m??? Normal >=60 [facility] Comment on above: Order Comment: Specimen Type : BLOOD SPECIMEN Ordering Facility: [facility] Address: [address] [place], [place] [address] [address] Result Comment: Estimated Gl omerular Filtration Rate (eGFR) is calculated using the 2020 CK D-EPI creatinine equation. This equation utilizes serum crea tinine, sex, and age as parameters. The creatinine assay has traceab le calibration to isotope dilution-mass spectrometry. Refer to KDIGO guidelines for clinical interpretation. In patients with unstable renal function, e.g. those with acute kidney inju ry, the eGFR may not accurately reflect actual GFR. Performed By: #### 3298-7, 4 024-6, 5643-2 #### [facility] CLIA [id number] 1 [place] [address] [place] Glucose [Mass/Vol] 70 mg/dL Low 74-99 [facility] Comment on above: Order Comment: Specimen Type : BLOOD SPECIMEN Ordering Facility: [facility] Address: [address] [place] [id number] Result Comment: The [employer] Diabetes Association (ADA) provides guidance for cutoff values for fasting glucose and random glucose. The ADA defines fasting as no caloric intake for at least 8 hours. Fas ting plasma glucose results between 100 to 125 mg/dL indicate increased risk for diabetes (prediabetes). Fasting plasma glucose resul ts greater than or equal to 126 mg/dL meet the criteria for diagnosis of diabetes. In the absence of unequivocal hyperglycemia, results should be confirmed by repeat testing. In a patient with classic s ymptoms of hyperglycemia or hyperglycemic crisis, random plasma glucose results greater than or equal to 200 mg/dL meet the criteria for diagnosis of diabetes. Reference: Standards of [facility] Care in Diabetes 2016, [employer] Diabetes Association. Diabetes Care. 2016.39(Suppl 1). Performed By: #### 3298-7, 4 024-6, 5643-2 #### [facility] CLIA [id number] 1 [place] [address] [place] Potassium [Moles/Vol] 3.6 mmol/L Low 3.7-5.1 [facility] Comment on above: Order Comment: Specimen Type : BLOOD SPECIMEN Ordering Facility: [facility] Address: [facility] [address] [place] [address] Performed By: #### 3298-7, 4 024-6, 5643-2 #### [facility] CLIA [id number] [address] Protein [Mass/Vol] 5.6 g/dL Low 6.3-8.0 [facility] Comment on above: Order Comment: Specimen Type : BLOOD SPECIMEN Ordering Facility: [facility] Address: [facility] [address] [place] [place] [address] Performed By: #### 3298-7, 4 024-6, 5643-2 #### [facility] CLIA [id number] [address] [place] [address] Sodium [Moles/Vol] 137 mmol/L Normal 136-144 [facility] Comment on above: Order Comment: Specimen Type : BLOOD SPECIMEN Ordering Facility: [facility] Address: [facility] [address] [place] [address] Performed By: #### 3298-7, 4 024-6, 5643-2 #### [facility] CLIA [id number] [address] [place] [address] Urea nitrogen [Mass/Vol] 17 mg/dL Normal 7-21 [facility] Comment on above: Order Comment: Specimen Type : BLOOD SPECIMEN Ordering Facility: [facility] Address: [facility] [address] [place] [place] [address] Performed By: #### 3298-7, 4 024-6, 5643-2 #### [facility] CLIA [id number] [address] THERAPY NT on 06-15-2022 THERAPY NT HNO ID: [id number] Normal [facility] Author: Ronna Lino, PT Ce nter Service: Physical Therapy Author Type: Physical Therapist Type: Therapy (PT/OT/Speech/Resp) Filed: 06/15/2022 11:55 AM Note Text: Physical Therapy Evaluation SERVICE DATE: 06/15/2022 SERVICE TIME: 918 to 933 ROOM: [id number] Recommended Discharge Disposition: Home Recommended Discharge Disposition Comments: home with self care. patient independent in functional mobility and no further acut e PT needs identified, will sign off. Recommended Discharge Equipment: No equipment needs an ticipated PT 6 Clicks Score: 22 Current Hospital Course: 51 y/o female presents with a ltered mental status. CVA vs hepatic encephalopathy. Medical managem ent ongoing. Reason for Hospital Admission: hepatic encephalopathy Relevant Past Medical History: EtOH, cirrhosis of live r, obesity Response to Therapy Interventions: Good participation in activities, On-track to achieve discharge goals Continue skilled needs due to: (N/A) Physical Therapy Problem List: Education Deficit Home Environment Patient Lives With: Other: See Comment Comments: Recovery house Assistance Available: None Entry To Home: Stairs;With Rail Number Of Stairs Into Home: 3 Number Of Stairs To Bed/Bath: 12 Stairs to Bed/Bath with: Unilateral Rail Prior Functional Level: Within Functional Limits Prior Functional Level Comments: pateint reports typic ally completely independent in mobility, ADLs, and iADLs Patient Report: Pleasant and agreeable to PT. Reports feeling much better and wants to go home. CURRENT FUNCTIONAL STATUS: Most recent performance Current Functional Mobility Assist Level Additional In formation Rolling Supine to Sit Independent Sit to Supine Independent Scooting Sit to Stand Stand By Assistance Stand to Sit Stand By Assistance Bed to Chair Toilet/Commode Gait Contact Guard Assistance;Additional Information Gait D evice: None Gait Distance (feet): [id number] initally CGA but quickly progresses to stand by assist , no loss of balance or assist required with head turns or dual tasking Stairs Curb Step Car Transfer Blank gonzáles indicate activity not attempted General Deviations/Observations: Kathy decreased Range of Motion: Lower Extremity Comments Right Lower Extremity ROM Comments: WFL Left Lower Extremity ROM Comments: WFL Strength: Lower Extremity Comments Right Lower Extremity Strength Comments: WFL Left Lower Extremity Strength Comments: WFL Balance: Static Sitting;Dynamic Sitting;Static Standin g;Dynamic Standing Static Sitting Balance: Normal Patient able to maintai n steady balance without handhold support Dynamic Sitting Balance: Normal Patient accepts aimee l challenge and can shift weight easily within full range in all direc tions Static Standing Balance: Good Patient able to maintain balance without handhold support, limited postural sway Dynamic Standing Balance: Good Patient accepts moderat e challenge, able to maintain balance while picking up object off floor JH-HLM: 7: Walk 25 feet or more Learning/Educational Needs: Discharge Plan;Safety Goals for Plan of Care: No acute physical therapy goals identified. Patient will be discontinued from Physical Therapy whe n no further skilled needs are identified in this setting. PLAN: PT Frequency: Discontinue therapy services Reasons Therapy Services Discontinued: No skilled need s Plan of Care developed with: Patient TREATMENT INTERVENTIONS: Therapy Diagnosis: No Skilled Need Interventions Provided: Evaluation $ Evaluation-Low (77042) Billed Units: 1 unit Training AND education provided in: Benefits of in-hos pital mobility, Discharge planning, Role of Physical Therapy The following therapeutic skills were used: Activity d osing, Cuing verbal, Movement facilitation Skilled Treatment Time (minutes): 15 Please see discipline specific clinical documentation flowsheet for complete details for this therapy evaluation/treatment . SIGNATURE: Ronna Lino PT PATIENT NAME: Ever wells DATE: June 15, 2022 TIME: 11:55 AM THERAPY NT HNO ID: [id number] Normal [facility] Author: CHELSEY Bruce/[facility]in [place] Service: Occupational Therapy Author Type: Occupational Therapist Type: Therapy (PT/OT/Speech/Resp) Filed: 06/15/2022 9:34 AM Note Text: OCCUPATIONAL THERAPY MISSED VISIT SERVICE DATE: 06/15/2022 SERVICE TIME: 932 to 09 ROOM: [place] [address] Patient not seen due to No Skilled Needs. Per physical therapist, pt is currently functioning back to baseline and independent with all activities. OT will sign off at this time with no furt her skilled needs. SIGNATURE: Halle Carrasco OTR/Chin PATIENT NAME: Ever Mckeon DATE: June 15, 2022 TIME: 9:34 AM CBC panel Auto (Bld) on 06-14-2022 Erythrocyte distribution width 15.8 % High 11.5-15.0 [facility] (RBC) [Ratio] Comment on above: Order Comment: Specimen Type : BLOOD SPECIMEN Ordering Facility: [facility] Address: [address] [place] [address] Performed By: #### 3298-7, 4 024-6, 5643-2 #### [facility] CLIA [id number] [address] Hematocrit (Bld) [Volume fraction] 28.0 % Low 36.0-4 6.0 [facility] Comment on above: Order Comment: Specimen Type : BLOOD SPECIMEN Ordering Facility: [facility] Address: [address] [place] [address] Performed By: #### 3298-7, 4 024-6, 5643-2 #### [facility] CLIA [id number] [address] Hemoglobin (Bld) [Mass/Vol] 8.7 g/dL Low 11.5-15.5 [facility] Comment on above: Order Comment: Specimen Type : BLOOD SPECIMEN Ordering Facility: [facility] Address: [address] [place] [address] Performed By: #### 3298-7, 4 024-6, 5643-2 #### [facility] CLIA [id number] [address] MCH (RBC) [Entitic mass] 24.0 pg Low 26.0-34.0 [facility] Comment on above: Order Comment: Specimen Type : BLOOD SPECIMEN Ordering Facility: [facility] Address: [address] [place] [address] Performed By: #### 3298-7, 4 024-6, 5643-2 #### [facility] CLIA [id number] [address] MCHC (RBC) [Mass/Vol] 31.1 g/dL Normal 30.5-36.0 [facility] Comment on above: Order Comment: Specimen Type : BLOOD SPECIMEN Ordering Facility: [facility] Address: [address] [place] [address] Performed By: #### 3298-7, 4 024-6, 5643-2 #### [facility] CLIA [id number] [address] MCV (RBC) [Entitic vol] 77.3 fL Low 80.0-100.0 [facility] Comment on above: Order Comment: Specimen Type : BLOOD SPECIMEN Ordering Facility: [facility] Address: [address] [place] [address] Performed By: #### 3298-7, 4 024-6, 5643-2 #### [facility] CLIA [id number] [address] Nucleated RBC (Bld) [#/Vol] 10*3/uL Normal <0.01 [facility] Comment on above: Order Comment: Specimen Type : BLOOD SPECIMEN Ordering Facility: [facility] Address: [address] [place] [address] Performed By: #### 3298-7, 4 024-6, 5643-2 #### [facility] CLIA [id number] [address] Platelet mean volume (Bld) 10.7 fL Normal 9.0-12.7 [facility] [Entitic vol] Comment on above: Order Comment: Specimen Type : BLOOD SPECIMEN Ordering Facility: [facility] Address: [facility] [place] [address] Performed By: #### 3298-7, 4 024-6, 5643-2 #### [facility] CLIA [id number] [address] Platelets (Bld) [#/Vol] 78 10*3/uL Low 150-400 [facility] Comment on above: Order Comment: Specimen Type : BLOOD SPECIMEN Ordering Facility: [facility] Address: [address] [place] [address] Result Comment: Results chec ked and verified Performed By: #### 3298-7, 4 024-6, 5643-2 #### [facility] CLIA [id number] [address] [place] RBC (Bld) [#/Vol] 3.62 10*6/uL Low 3.90-5.20 [facility] Comment on above: Order Comment: Specimen Type : BLOOD SPECIMEN Ordering Facility: [facility] Address: [address] [place] [address] Performed By: #### 3298-7, 4 024-6, 5643-2 #### [facility] CLIA [id number] [address] WBC (Bld) [#/Vol] 5.69 10*3/uL Normal 3.70-11.00 [facility] Comment on above: Order Comment: Specimen Type : BLOOD SPECIMEN Ordering Facility: [facility] Address: [address] [place] [address] Performed By: #### 3298-7, 4 024-6, 5643-2 #### [facility] CLIA [id number] [address] Comprehensive metabolic 2000 panel on 0 06-14-2022 Albumin [Mass/Vol] 3.2 g/dL Low 3.9-4.9 [facility] Comment on above: Order Comment: Specimen Type : BLOOD SPECIMEN Ordering Facility: [facility] Address: [address] [place] [address] Performed By: #### 3298-7, 4 024-6, 5643-2 #### [facility] CLIA [id number] [address] [facility] ALP [Catalytic activity/Vol] 159 U/L High 34-123 [facility] Comment on above: Order Comment: Specimen Type : BLOOD SPECIMEN Ordering Facility: [facility] Address: [address] [place] [address] Performed By: #### 3298-7, 4 024-6, 5643-2 #### [facility] CLIA [id number] [address] ALT With P-5'-P [Catalytic 27 U/L Normal 7-38 [facility] activity/Vol] Comment on above: Order Comment: Specimen Type : BLOOD SPECIMEN Ordering Facility: [facility] Address: [facility] [address] [place] [address] Performed By: #### 3298-7, 4 024-6, 5643-2 #### [facility] CLIA [id number] [address] [facility] Anion gap [Moles/Vol] 9 mmol/L Normal 9-18 [facility] Comment on above: Order Comment: Specimen Type : BLOOD SPECIMEN Ordering Facility: [facility] Address: [facility] [address] [place] [address] Performed By: #### 3298-7, 4 024-6, 5643-2 #### [facility] CLIA [id number] [address] [place] [facility] AST With P-5'-P [Catalytic 37 U/L High 13-35 A [facility] activity/Vol] Comment on above: Order Comment: Specimen Type : BLOOD SPECIMEN Ordering Facility: [facility] Address: [facility] [address] [place] [address] Performed By: #### 3298-7, 4 024-6, 5643-2 #### [facility] CLIA [id number] [address] [place] Bilirubin [Mass/Vol] 0.4 mg/dL Normal 0.2-1.3 [facility] Comment on above: Order Comment: Specimen Type : BLOOD SPECIMEN Ordering Facility: [facility] Address: [address] [place] [address] Performed By: #### 3298-7, 4 024-6, 5643-2 #### [facility] CLIA [id number] [address] [place] Calcium [Mass/Vol] 8.5 mg/dL Normal 8.5-10.2 [facility] Comment on above: Order Comment: Specimen Type : BLOOD SPECIMEN Ordering Facility: [facility] Address: [address] Performed By: #### 3298-7, 4 024-6, 5643-2 #### [facility] CLIA [id number] 1 [place] [address] [place] Chloride [Moles/Vol] 110 mmol/L High 97-105 [facility] Comment on above: Order Comment: Specimen Type : BLOOD SPECIMEN Ordering Facility: [facility] Address: [address] [place] [address] Performed By: #### 3298-7, 4 024-6, 5643-2 #### [facility] CLIA [id number] 1 [place] [address] [place] CO2 [Moles/Vol] 21 mmol/L Low 22-30 [facility] Comment on above: Order Comment: Specimen Type : BLOOD SPECIMEN Ordering Facility: [facility] Address: [address] [place] [address] Performed By: #### 3298-7, 4 024-6, 5643-2 #### [facility] CLIA [id number] 1 [place] [address] [place] Creatinine [Mass/Vol] 0.65 mg/dL Normal 0.58-0.96 [facility] Comment on above: Order Comment: Specimen Type : BLOOD SPECIMEN Ordering Facility: [facility] Address: [address] [place] [address] Performed By: #### 3298-7, 4 024-6, 5643-2 #### [facility] CLIA [id number] [address] S [place] ESTIMATED GLOMERULAR 105 mL/min/1.73m??? Normal >=60 [facility] Comment on above: Order Comment: Specimen Type : BLOOD SPECIMEN Ordering Facility: [facility] Address: [address] [place] [address] Result Comment: Estimated Gl omerular Filtration Rate (eGFR) is calculated using the 2020 CK D-EPI creatinine equation. This equation utilizes serum crea tinine, sex, and age as parameters. The creatinine assay has traceab le calibration to isotope dilution-mass spectrometry. Refer to KDIGO guidelines for clinical interpretation. In patients with unstable renal function, e.g. those with acute kidney inju ry, the eGFR may not accurately reflect actual GFR. Performed By: #### 3298-7, 4 024-6, 5643-2 #### [facility] CLIA [id number] 1 [place] [address] [place] Glucose [Mass/Vol] 192 mg/dL High 74-99 [facility] Comment on above: Order Comment: Specimen Type : BLOOD SPECIMEN Ordering Facility: [facility] Address: [address] [place] [id number] Result Comment: The [place] Diabetes Association (ADA) provides guidance for cutoff values for fasting glucose and random glucose. The ADA defines fasting as no caloric intake for at least 8 hours. Fas ting plasma glucose results between 100 to 125 mg/dL indicate increased risk for diabetes (prediabetes). Fasting plasma glucose resul ts greater than or equal to 126 mg/dL meet the criteria for diagnosis of diabetes. In the absence of unequivocal hyperglycemia, results should be confirmed by repeat testing. In a patient with classic s ymptoms of hyperglycemia or hyperglycemic crisis, random plasma glucose results greater than or equal to 200 mg/dL meet the criteria for diagnosis of diabetes. Reference: Standards of [facility] Care in Diabetes 2016, [employer] Diabetes Association. Diabetes Care. 2016.39(Suppl 1). Performed By: #### 3298-7, 4 024-6, 5643-2 #### [facility] CLIA [id number] 1 [place] [address] [place] Potassium [Moles/Vol] 3.8 mmol/L Normal 3.7-5.1 [facility] Comment on above: Order Comment: Specimen Type : BLOOD SPECIMEN Ordering Facility: [facility] Address: [address] [place] [address] Performed By: #### 3298-7, 4 024-6, 5643-2 #### [facility] CLIA [id number] [address] [place] Protein [Mass/Vol] 5.4 g/dL Low 6.3-8.0 [facility] Comment on above: Order Comment: Specimen Type : BLOOD SPECIMEN Ordering Facility: [facility] Address: [address] [place] [address] Performed By: #### 3298-7, 4 024-6, 5643-2 #### [facility] CLIA [id number] [address] Sodium [Moles/Vol] 140 mmol/L Normal 136-144 [facility] Comment on above: Order Comment: Specimen Type : BLOOD SPECIMEN Ordering Facility: [facility] Address: [facility] [place] [place] [address] Performed By: #### 3298-7, 4 024-6, 5643-2 #### [facility] CLIA [id number] [address] [place] [address] Urea nitrogen [Mass/Vol] 17 mg/dL Normal 7-21 [facility] Comment on above: Order Comment: Specimen Type : BLOOD SPECIMEN Ordering Facility: [facility] Address: [facility] [place] [address] Performed By: #### 3298-7, 4 024-6, 5643-2 #### [facility] CLIA [id number] [address] CBC panel Auto (Bld) on 06-13-2022 Erythrocyte distribution width 15.6 % High 11.5-15.0 [facility] (RBC) [Ratio] Comment on above: Order Comment: Specimen Type : BLOOD SPECIMEN Ordering Facility: [facility] Address: [address] [place] [address] Performed By: #### 3298-7, 4 024-6, 5643-2 #### [facility] CLIA [id number] [address] [facility] Hematocrit (Bld) [Volume fraction] 26.4 % Low 36.0-4 6.0 [facility] Comment on above: Order Comment: Specimen Type : BLOOD SPECIMEN Ordering Facility: [facility] Address: [address] [place] [address] Performed By: #### 3298-7, 4 024-6, 5643-2 #### [facility] CLIA [id number] [address] S [facility] Hemoglobin (Bld) [Mass/Vol] 8.3 g/dL Low 11.5-15.5 [facility] Comment on above: Order Comment: Specimen Type : BLOOD SPECIMEN Ordering Facility: [facility] Address: [address] [place] [address] Performed By: #### 3298-7, 4 024-6, 5643-2 #### [facility] CLIA [id number] [address] [place] [address] [place] OF [place] MCH (RBC) [Entitic mass] 24.4 pg Low 26.0-34.0 [facility] Comment on above: Order Comment: Specimen Type : BLOOD SPECIMEN Ordering Facility: [facility] Address: [address] [address] Performed By: #### 3298-7, 4 024-6, 5643-2 #### [facility] CLIA [id number] [address] [place] [address] [place] [facility] MCHC (RBC) [Mass/Vol] 31.4 g/dL Normal 30.5-36.0 [facility] Comment on above: Order Comment: Specimen Type : BLOOD SPECIMEN Ordering Facility: [facility] Address: [address] [place] [address] Performed By: #### 3298-7, 4 024-6, 5643-2 #### [facility] CLIA [id number] [address] [place] [facility] MCV (RBC) [Entitic vol] 77.6 fL Low 80.0-100.0 [facility] Comment on above: Order Comment: Specimen Type : BLOOD SPECIMEN Ordering Facility: [facility] Address: [address] Performed By: #### 3298-7, 4 024-6, 5643-2 #### [facility] CLIA [id number] 1 [place] [address] [place] Nucleated RBC (Bld) [#/Vol] 10*3/uL Normal <0.01 [facility] Comment on above: Order Comment: Specimen Type : BLOOD SPECIMEN Ordering Facility: [facility] Address: [address] [place] [address] Performed By: #### 3298-7, 4 024-6, 5643-2 #### [facility] CLIA [id number] [address] [facility] Platelet mean volume (Bld) 10.2 fL Normal 9.0-12.7 [facility] [Entitic vol] Comment on above: Order Comment: Specimen Type : BLOOD SPECIMEN Ordering Facility: [facility] Address: [facility] [place] [address] Performed By: #### 3298-7, 4 024-6, 5643-2 #### [facility] CLIA [id number] [address] [place] Platelets (Bld) [#/Vol] 76 10*3/uL Low 150-400 [facility] Comment on above: Order Comment: Specimen Type : BLOOD SPECIMEN Ordering Facility: [facility] Address: [address] [place] [address] Result Comment: Platelet cou nt confirmed by manual review of peripheral blood smear Performed By: #### 3298-7, 4 024-6, 5643-2 #### [facility] CLIA [id number] 1 [place] [address] [place] [facility] [place] RBC (Bld) [#/Vol] 3.40 10*6/uL Low 3.90-5.20 [facility] Comment on above: Order Comment: Specimen Type : BLOOD SPECIMEN Ordering Facility: [facility] Address: [address] [place] [address] Performed By: #### 3298-7, 4 024-6, 5643-2 #### [facility] CLIA [id number] [address] OF [facility] WBC (Bld) [#/Vol] 3.36 10*3/uL Low 3.70-11.00 [facility] Comment on above: Order Comment: Specimen Type : BLOOD SPECIMEN Ordering Facility: [facility] Address: [address] [place] [address] Performed By: #### 3298-7, 4 024-6, 5643-2 #### [facility] CLIA [id number] [address] Comprehensive metabolic 2000 panel on 0 06-13-2022 Albumin [Mass/Vol] 3.2 g/dL Low 3.9-4.9 [facility] Comment on above: Order Comment: Specimen Type : BLOOD SPECIMEN Ordering Facility: [facility] Address: [address] [place] [address] Performed By: #### 3298-7, 4 024-6, 5643-2 #### [facility] CLIA [id number] [address] ALP [Catalytic activity/Vol] 155 U/L High 34-123 [facility] Comment on above: Order Comment: Specimen Type : BLOOD SPECIMEN Ordering Facility: [facility] Address: [address] [place] [address] Performed By: #### 3298-7, 4 024-6, 5643-2 #### [facility] CLIA [id number] [address] ALT With P-5'-P [Catalytic 29 U/L Normal 7-38 A [facility] activity/Vol] Comment on above: Order Comment: Specimen Type : BLOOD SPECIMEN Ordering Facility: [facility] Address: [address] [place] [address] Performed By: #### 3298-7, 4 024-6, 5643-2 #### [facility] CLIA [id number] 1 [place] [address] [place] Anion gap [Moles/Vol] 9 mmol/L Normal 9-18 [facility] Comment on above: Order Comment: Specimen Type : BLOOD SPECIMEN Ordering Facility: [facility] Address: [address] [place] [address] [place] [address] Performed By: #### 3298-7, 4 024-6, 5643-2 #### [facility] CLIA [id number] 1 [place] [address] [place] AST With P-5'-P [Catalytic 44 U/L High 13-35 A [facility] activity/Vol] Comment on above: Order Comment: Specimen Type : BLOOD SPECIMEN Ordering Facility: [facility] Address: [address] [place] [address] Performed By: #### 3298-7, 4 024-6, 5643-2 #### [facility] CLIA [id number] [address] [place] Bilirubin [Mass/Vol] 0.7 mg/dL Normal 0.2-1.3 [facility] Comment on above: Order Comment: Specimen Type : BLOOD SPECIMEN Ordering Facility: [facility] Address: [facility] [place] [address] Performed By: #### 3298-7, 4 024-6, 5643-2 #### [facility] CLIA [id number] [address] [place] Calcium [Mass/Vol] 8.7 mg/dL Normal 8.5-10.2 [facility] Comment on above: Order Comment: Specimen Type : BLOOD SPECIMEN Ordering Facility: [facility] Address: [address] [place] [address] [place] [address] Performed By: #### 3298-7, 4 024-6, 5643-2 #### [facility] CLIA [id number] [address] [place] Chloride [Moles/Vol] 109 mmol/L High 97-105 [facility] Comment on above: Order Comment: Specimen Type : BLOOD SPECIMEN Ordering Facility: [facility] Address: [address] [place] [address] Performed By: #### 3298-7, 4 024-6, 5643-2 #### [facility] CLIA [id number] [address] S [facility] CO2 [Moles/Vol] 23 mmol/L Normal 22-30 [facility] Comment on above: Order Comment: Specimen Type : BLOOD SPECIMEN Ordering Facility: [facility] Address: [address] [place] [address] Performed By: #### 3298-7, 4 024-6, 5643-2 #### [facility] CLIA [id number] [address] Creatinine [Mass/Vol] 0.53 mg/dL Low 0.58-0.96 [facility] Comment on above: Order Comment: Specimen Type : BLOOD SPECIMEN Ordering Facility: [facility] Address: [address] [place] [address] Performed By: #### 3298-7, 4 024-6, 5643-2 #### [facility] CLIA [id number] [address] ESTIMATED GLOMERULAR 111 mL/min/1.73m??? Normal >=60 [facility] Comment on above: Order Comment: Specimen Type : BLOOD SPECIMEN Ordering Facility: [facility] Address: [address] [place] [address] Result Comment: Estimated Gl omerular Filtration Rate (eGFR) is calculated using the 2020 CK D-EPI creatinine equation. This equation utilizes serum crea tinine, sex, and age as parameters. The creatinine assay has traceab le calibration to isotope dilution-mass spectrometry. Refer to KDIGO guidelines for clinical interpretation. In patients with unstable renal function, e.g. those with acute kidney inju ry, the eGFR may not accurately reflect actual GFR. Performed By: #### 3298-7, 4 024-6, 5643-2 #### [facility] CLIA [id number] 1 [place] [address] [place] Glucose [Mass/Vol] 102 mg/dL High 74-99 [facility] Comment on above: Order Comment: Specimen Type : BLOOD SPECIMEN Ordering Facility: [facility] Address: [address] [address] Result Comment: The [employer] Diabetes Association (ADA) provides guidance for cutoff values for fasting glucose and random glucose. The ADA defines fasting as no caloric intake for at least 8 hours. Fas ting plasma glucose results between 100 to 125 mg/dL indicate increased risk for diabetes (prediabetes). Fasting plasma glucose resul ts greater than or equal to 126 mg/dL meet the criteria for diagnosis of diabetes. In the absence of unequivocal hyperglycemia, results should be confirmed by repeat testing. In a patient with classic s ymptoms of hyperglycemia or hyperglycemic crisis, random plasma glucose results greater than or equal to 200 mg/dL meet the criteria for diagnosis of diabetes. Reference: Standards of [facility] Care in Diabetes 2016, [employer] Diabetes Association. Diabetes Care. 2016.39(Suppl 1). Performed By: #### 3298-7, 4 024-6, 5643-2 #### [facility] CLIA [id number] 1 [place] [address] [place] Potassium [Moles/Vol] 3.6 mmol/L Low 3.7-5.1 [facility] Comment on above: Order Comment: Specimen Type : BLOOD SPECIMEN Ordering Facility: [facility] Address: [address] [place] [id number] Performed By: #### 3298-7, 4 024-6, 5643-2 #### [facility] CLIA [id number] 1 [place] [address] [place] Protein [Mass/Vol] 5.8 g/dL Low 6.3-8.0 [facility] Comment on above: Order Comment: Specimen Type : BLOOD SPECIMEN Ordering Facility: [facility] Address: [address] [address] Performed By: #### 3298-7, 4 024-6, 5643-2 #### [facility] CLIA [id number] [address] [place] [facility] Sodium [Moles/Vol] 141 mmol/L Normal 136-144 [facility] Comment on above: Order Comment: Specimen Type : BLOOD SPECIMEN Ordering Facility: [facility] Address: [address] [place], [place] [address] Performed By: #### 3298-7, 4 024-6, 5643-2 #### [facility] CLIA [id number] [address] [place] [facility] Urea nitrogen [Mass/Vol] 14 mg/dL Normal 7-21 [facility] Comment on above: Order Comment: Specimen Type : BLOOD SPECIMEN Ordering Facility: [facility] Address: [address] [place] [address] Performed By: #### 3298-7, 4 024-6, 5643-2 #### [facility] CLIA [id number] [address] [place] US ASCITES SURVEY on 06-13-2022 ASCITES SURVEY * * *Final Report* * * Normal [facility] DATE OF EXAM: Jun 13 2022 11:17AM [facility] 1016 - ASCITES SURVEY / PROCEDURE REASON: Cirrhosis * * * * Physician Interpretation * * * * EXAMINATION: Ascites survey CLINICAL HISTORY: Ascites. TECHNIQUE: Sonography of the abdomen was performed. Im ages were obtained and stored in a permanent archive. COMPARISON: CT from May 04, 2015 No soft tissue mass or collection. No ascites is seen. Struck morphology of the imaged liver. Probable splenomegaly. IMPRESSION: No ascites identified. House Sitter: PSCB Transcribe Date/Time: Jun 13 2022 12:18P Dictated by : RAMSES VILLALTA MD This examination was interpreted and the report review ed and electronically signed by: RAMSES VILLALTA MD on Jun 13 2022 12:19PM EST [id number] APAP SerPl-mCnc on 06-12-2022 Acetaminophen [Mass/Vol] ug/mL Low 10-30 [facility] Comment on above: Order Comment: Specimen Type : BLOOD SPECIMEN Ordering Facility: [facility] Address: [address] [place] [phone] Result Comment: Toxic > 150 ug/mL 4 hours post ingestion The Kacy Panda nomogram can be used to estimate the probability of hepatotoxicity via the relationship of plasma acetaminophen concentration to the post ingestion interval. (Myles. Pedi atrics. 1975. 55:871 to 876 and Kacy et al. Arch Saw Maker Med. 1981. 141:380 to 385). Reference ranges and high/lo w indicator flags are provided as general guidelines only. The treating physician must determine appropriate target levels/dosing based on the specific clinical situation. Performed By: #### 3298-7, 4 024-6, 5643-2 #### [facility] CLIA [id number] 1 [place] [address] [place] Ammonia Plas-sCnc on 06-12-2022 Ammonia (P) [Moles/Vol] 107 umol/L High 11-51 [facility] Comment on above: Order Comment: Specimen Type : BLOOD SPECIMEN Ordering Facility: [facility] Address: [address] [place] [phone] Performed By: #### 3298-7, 4 024-6, 5643-2 #### [facility] CLIA [id number] 1 [place] [address] [place] Bacteria Ur Cult on 06-12-2022 Bacteria identified Cx >=100,000 CFU/mL Three or Abnormal [facility] (U) more organisms, no one type Center predominant, suggesting contamination during collection. Recollect if clinically indicated. Comment on above: Order Comment: Specimen Type : URINE SPECIMENOrdering Facility: [facility] Address: [address] [place] [phone] Performed By: #### 630-4 ### [facility] [id number] [place] [address] [place] Basic metabolic 2000 panel on 2 Anion gap [Moles/Vol] 9 mmol/L Normal 9-18 [facility] Comment on above: Order Comment: Specimen Type : BLOOD SPECIMEN Ordering Facility: [facility] Address: [address] [place] [address] Performed By: #### 3298-7, 4 024-6, 5643-2 #### [facility] CLIA [id number] 1 [place] [address] [place] Calcium [Mass/Vol] 9.5 mg/dL Normal 8.5-10.2 [facility] Comment on above: Order Comment: Specimen Type : BLOOD SPECIMEN Ordering Facility: [facility] Address: [address] [place] [address] Performed By: #### 3298-7, 4 024-6, 5643-2 #### [facility] CLIA [id number] 1 [place] [address] [place] Chloride [Moles/Vol] 109 mmol/L High 97-105 [facility] Comment on above: Order Comment: Specimen Type : BLOOD SPECIMEN Ordering Facility: [facility] Address: [address] [place] [address] Performed By: #### 3298-7, 4 024-6, 5643-2 #### [facility] CLIA [id number] 1 [place] [address] [place] CO2 [Moles/Vol] 22 mmol/L Normal 22-30 [facility] Comment on above: Order Comment: Specimen Type : BLOOD SPECIMEN Ordering Facility: [facility] Address: [address] [place] [address] Performed By: #### 3298-7, 4 024-6, 5643-2 #### [facility] CLIA [id number] 1 [place] [address] [place] Creatinine [Mass/Vol] 0.58 mg/dL Normal 0.58-0.96 [facility] Comment on above: Order Comment: Specimen Type : BLOOD SPECIMEN Ordering Facility: [facility] Address: [address] [place] [address] Performed By: #### 3298-7, 4 024-6, 5643-2 #### [facility] CLIA [id number] 1 [place] [address] [place] ESTIMATED GLOMERULAR 108 mL/min/1.73m??? Normal >=60 [facility] Comment on above: Order Comment: Specimen Type : BLOOD SPECIMEN Ordering Facility: [facility] Address: [address] [place] [address] Result Comment: Estimated Gl omerular Filtration Rate (eGFR) is calculated using the 2020 CK D-EPI creatinine equation. This equation utilizes serum crea tinine, sex, and age as parameters. The creatinine assay has traceab le calibration to isotope dilution-mass spectrometry. Refer to KDIGO guidelines for clinical interpretation. In patients with unstable renal function, e.g. those with acute kidney inju ry, the eGFR may not accurately reflect actual GFR. Performed By: #### 3298-7, 4 024-6, 5643-2 #### [facility] CLIA [id number] [address] [place] [address] [place] Glucose [Mass/Vol] 114 mg/dL High 74-99 [facility] Comment on above: Order Comment: Specimen Type : BLOOD SPECIMEN Ordering Facility: [facility] Address: [address] [place] [address] Result Comment: The [employer] Diabetes Association (ADA) provides guidance for cutoff values for fasting glucose and random glucose. The ADA defines fasting as no caloric intake for at least 8 hours. Fas ting plasma glucose results between 100 to 125 mg/dL indicate increased risk for diabetes (prediabetes). Fasting plasma glucose resul ts greater than or equal to 126 mg/dL meet the criteria for diagnosis of diabetes. In the absence of unequivocal hyperglycemia, results should be confirmed by repeat testing. In a patient with classic s ymptoms of hyperglycemia or hyperglycemic crisis, random plasma glucose results greater than or equal to 200 mg/dL meet the criteria for diagnosis of diabetes. Reference: Standards of [facility] Care in Diabetes 2016, [employer] Diabetes Association. Diabetes Care. 2016.39(Suppl 1). Performed By: #### 3298-7, 4 024-6, 5643-2 #### [facility] CLIA [id number] [address] [place] [facility] Potassium [Moles/Vol] 3.7 mmol/L Normal 3.7-5.1 [facility] Comment on above: Order Comment: Specimen Type : BLOOD SPECIMEN Ordering Facility: [facility] Address: [facility] [place] [address] Performed By: #### 3298-7, 4 024-6, 5643-2 #### [facility] CLIA [id number] [address] [place] [facility] Sodium [Moles/Vol] 140 mmol/L Normal 136-144 [facility] Comment on above: Order Comment: Specimen Type : BLOOD SPECIMEN Ordering Facility: [facility] Address: [facility] [place] [address] Performed By: #### 3298-7, 4 024-6, 5643-2 #### [facility] CLIA [id number] [address] Urea nitrogen [Mass/Vol] 15 mg/dL Normal 7-21 [facility] Comment on above: Order Comment: Specimen Type : BLOOD SPECIMEN Ordering Facility: [facility] Address: [facility] [place] [place] [address] Performed By: #### 3298-7, 4 024-6, 5643-2 #### [facility] CLIA [id number] [address] S [facility] CBC panel Auto (Bld) on 06-12-2022 Erythrocyte distribution width 15.7 % High 11.5-15.0 [facility] (RBC) [Ratio] Comment on above: Order Comment: Specimen Type : BLOOD SPECIMEN Ordering Facility: [facility] Address: [facility] [place] [place] [address] Performed By: #### 3298-7, 4 024-6, 5643-2 #### [facility] CLIA [id number] [address] [place] [address] [place] Hematocrit (Bld) [Volume fraction] 31.5 % Low 36.0-4 6.0 [facility] Comment on above: Order Comment: Specimen Type : BLOOD SPECIMEN Ordering Facility: [facility] Address: [facility] [place] [place] [address] Performed By: #### 3298-7, 4 024-6, 5643-2 #### [facility] CLIA [id number] [address] [place] [facility] Hemoglobin (Bld) [Mass/Vol] 9.9 g/dL Low 11.5-15.5 [facility] Comment on above: Order Comment: Specimen Type : BLOOD SPECIMEN Ordering Facility: [facility] Address: [facility] [address] [place] [address] Performed By: #### 3298-7, 4 024-6, 5643-2 #### [facility] CLIA [id number] [address] [place] [address] [facility] MCH (RBC) [Entitic mass] 24.7 pg Low 26.0-34.0 [facility] Comment on above: Order Comment: Specimen Type : BLOOD SPECIMEN Ordering Facility: [facility] Address: [facility] [address] [place] [address] Performed By: #### 3298-7, 4 024-6, 5643-2 #### [facility] CLIA [id number] [address] [place] [address] [facility] MCHC (RBC) [Mass/Vol] 31.4 g/dL Normal 30.5-36.0 [facility] Comment on above: Order Comment: Specimen Type : BLOOD SPECIMEN Ordering Facility: [facility] Address: [facility] [address] [place] [address] Performed By: #### 3298-7, 4 024-6, 5643-2 #### [facility] CLIA [id number] [address] [place] MCV (RBC) [Entitic vol] 78.6 fL Low 80.0-100.0 [facility] Comment on above: Order Comment: Specimen Type : BLOOD SPECIMEN Ordering Facility: [facility] Address: [address] [place] [address] Performed By: #### 3298-7, 4 024-6, 5643-2 #### [facility] CLIA [id number] 1 [place] [address] [place] Nucleated RBC (Bld) [#/Vol] 10*3/uL Normal <0.01 [facility] Comment on above: Order Comment: Specimen Type : BLOOD SPECIMEN Order[facility] Facility: [facility] Address: [address] [place] [address] Performed By: #### 3298-7, 4 024-6, 5643-2 #### [facility] CLIA [id number] [address] [place] Platelet mean volume (Bld) 10.0 fL Normal 9.0-12.7 [facility] [Entitic vol] Comment on above: Order Comment: Specimen Type : BLOOD SPECIMEN Order[facility] Facility: [facility] Address: [address] [place] [address] Performed By: #### 3298-7, 4 024-6, 5643-2 #### [facility] CLIA [id number] [address] [place] Platelets (Bld) [#/Vol] 99 10*3/uL Low 150-400 [facility] Comment on above: Order Comment: Specimen Type : BLOOD SPECIMEN [facility] Facility: [facility] Address: [address] [place] [address] Performed By: #### 3298-7, 4 024-6, 5643-2 #### [facility] CLIA [id number] 1 [place] [address] [place] RBC (Bld) [#/Vol] 4.01 10*6/uL Normal 3.90-5.20 [facility] Comment on above: Order Comment: Specimen Type : BLOOD SPECIMEN Ordering Facility: [facility] Address: [address], [place] [address] Performed By: #### 3298-7, 4 024-6, 5643-2 #### [facility] CLIA [id number] 1 [place] [address] [place] WBC (Bld) [#/Vol] 5.11 10*3/uL Normal 3.70-11.00 [facility] Comment on above: Order Comment: Specimen Type : BLOOD SPECIMEN Ordering Facility: [facility] Address: [address] [place] [address] Performed By: #### 3298-7, 4 024-6, 5643-2 #### [facility] [place] [id number] [address] [place] [id number] [facility] [place] CONSULT on 06-12-2022 CONSULT HNO ID: [id number] Normal [facility] Medical Author: Roderick Benavidez MD [facility] er Service: Neurology General Author Type: Physician Type: Consults Filed: 06/12/2022 1:08 PM Note Text: NEURO STROKE INITIAL CONSULT SERVICE DATE: 06/12/2022 SERVICE TIME: 929 REQUESTING PHYSICIAN: Dr Zhou PCP: No primary care provider on file. REASON FOR STROKE EVALUATION: speech difficulty Subjective HPI: 51 year old female with hx of prior alcoholism and res ulting cirrhosis, anxiety, who called EMS earlier today due to suddenly feeling 'unwell', but could not describe, family felt her speech was imp aired, and stroke team activated upon arrival. Patient was tearful and v loretta anxious during time of our encounter and was able to communicate bett er under calm environment. A CTH and CTA head/neck were unremarkable for acute process. Upon repeated assessment, it was felt her speech diffi culty was predominantly due to anxiety and possible underlying e ncephalopathy, although underlying small stroke could not be entirely dismissed. [place] IVT risks outweigh benefits at this time. Pre-morbid mRS: Premorbid Modified Murdock Score: 0 - N o symptoms at all PAST MEDICAL HISTORY Diagnosis Date Depression with anxiety 02/03/2018 IBS (irritable bowel syndrome) Non morbid obesity 11/16/2017 Primary osteoarthritis of left knee 11/16/2017 PAST SURGICAL HISTORY Procedure Laterality Date ANKLE fx with hardware CHOLECYSTECTOMY HX HAND SURGERY HX Right reconstruction ORTHOPEDICS SURGERY HX rt shoulder PAST SURGICAL HISTORY OF x2 PAST SURGICAL HISTORY OF tubal ligation Social History Tobacco Use Smoking status: Former Packs/day: 0.50 Years: 5.00 Pack years: 2.50 Types: Cigarettes Quit date: 11/02/2017 Years since quittin.6 Smokeless tobacco: Never Tobacco comments: quit 17 months ago Substance Use Topics Alcohol use: Yes Comment: social Drug use: No FAMILY HISTORY Problem Relation Age of Onset Hypertension Mother Hyperlipidemia Mother Cancer Mother cervical other (Fibromyalgia) Mother COPD Father ALLERGIES Allergen Reactions Vicodin [Hydrocodon* GI Upset MEDICATION Pre-admission aspirin 325 mg tablet, Take 1 tablet by mouth twice da yvrose., Disp: 40 tablet, Rfl: 0 Current aspirin 325 mg tabletTake 1 tablet by mouth twice danie y.Disp: 40 tabletRfl: 0 REVIEW OF SYSTEMS limited due to anxiety Objective PHYSICAL EXAM Vital Signs: BP 113/75 Pulse (!) 98 Temp 37.1 ?C (98.8 ?F) (Ora l) Resp 18 Ht 170.2 cm (5' 7 ) Wt 115 kg (253 lb 8.5 oz) LMP 02/02/2018 (Exact Date) SpO2 98% BMI 39.71 kg/m? NEUROLOGICAL: LOC: 0 - alert and responsive 0 LOC Questions: 1 - one correct 1 LOC Commands: 0 - both correct 0 Best Gaze: 0 - normal gaze 0 Visual: 0 - no visual loss 0 Facial Palsy: 0 - normal 0 Motor Left Arm: 0 - no drift 0 Motor Right Arm: 0 - no drift 0 Motor Left Le - no drift 0 Motor Right Le - no drift 0 Limb Ataxia: 0 - no ataxia (or aphasic, hemiplegic) 0 Sensory: 0 - normal 0 Best Language: 1 - mild-mod aphasia (comprehensible) 1 Dysarthria: 0 - normal 0 Extinction and Inattention: 0 - normal, none detected (or visual loss alone) 0 Initial NIHSS Score: 2 (06/12/22 1304 : Sergio Lopez) 2 MENTAL STATUS: Follows commands, very anxious CRANIAL NERVES: EOM's intact, Visual gonzáles intact to confrontation, Extraocular movements intact, Facial sensation intact, Face symmetric, and No facial droop or ptosis MOTOR: No drift MOTOR STRENGTH: Upper and lower extremity 5/5 bilatera lly REFLEXES: UE and LE reflexes are equal and reactive SENSATION: Intact light touch COORDINATION: Finger-to- nose-finger intact bilaterall y DATA: Diagnostic tests reviewed for today's visit: Lipids, HbA1c, CMP, CBC, Coags Recent Labs 06/12/22 0936 06/12/22 0927 NA 140 -- K 3.7 -- CHLOR 109* -- CO2 22 -- BUN 15 -- CREAT 0.58 0.71 GLUC 114* -- CA 9.5 -- WBC 5.11 -- HB 9.9* -- HCT 31.5* -- PLT 99* -- INR 1.1 -- APTT 26.2 -- Cardiac Enzymes Most recent labs and imaging results. STROKE CARE PATH CAREY [employer] Initial NIHSS Score: 2 Date Patient Last Known Well: 06/12/22 Time Patient Last Known Well: 08 Date of Patient Arrival at THIS Facility: 06/12/22 Time of Patient Arrival at THIS Facility: [address] Imaging Review: CT Imaging reviewed, NO acute infar ct/hemorrhage seen CTA Imaging Review: CTA Imaging reviewed, NO large ves kristen occlusion or severe stenosis seen Endovascular Therapy Details Candidate for Endovascular Therapy (Last Known Well wi thin 24 hours): No - Negative for evidence of large vessel occlusion Floyd Coma Scale Totals (Calculated): 15 Stroke Care and Prevention (personally reviewed by Thor Benavidez MD): PROBLEM LIST: Active Problems: * No active hospital problems. * Resolved Problems: * No resolved hospital problems. * Impression/Recommendations IMPRESSION 51 year old (more content not included)... CT BRAIN ATTACK WO IVCON on 06-12-2022 CT BRAIN ATTACK * * *Final Report* * * Invalid Interpretation [facility] WO IVCON DATE OF EXAM: Jun 12 2022 9:40AM [facility] 0502 - CT BRAIN ATTACK WO IVCON / [id number] PROCEDURE REASON: Focal neuro deficit, new, fixed, or worsening, 4.5 to 24 hours, NIHSS 6 or great * * * * Physician Interpretation * * * * EXAMINATION: CT BRAIN ATTACK WO IVCON CLINICAL HISTORY: Focal neuro deficit, new, fixed, or worsening, 4.5 to 24 hours, NIHSS 6 or great Brain attack. TECHNIQUE: Routine CT of the brain without IV contrast . MQ: CTBA_4 CT Radiation dose: Integrated CT Dose-Length Product ( DLP) for this visit = 729 mGy*cm CT Dose Reduction Employed: Iterative recon COMPARISON: CT brain 08/01/2014 RESULT: Acute ischemic change: There is focal white matter hyp odensity in the left frontal chaudhari radiata (2:16) ASPECT Score = 10 Hemorrhage: No evidence of acute intracranial hemorrha ge. ECASS hemorrhagic transformation score: Not Applicable Mass Lesion / Mass Effect: There is no evidence of an intracranial mass or extraaxial fluid collection. No significant mass ef fect. Chronic change: None. Parenchyma: There is no significant volume loss. The b rain parenchyma is otherwise within normal limits for age. Ventricles: Normal caliber and morphology. Other: The visualized calvarium, skull base, orbits an d extracranial soft tissues are normal. Fingerprinter (topogram) images: No additional findings. IMPRESSION: Focal white matter hypodensity in the left frontal cor arron radiata is new from 2013, which may represent age-indeterminate lacun ar infarct. CRITICAL TEST/RESULTS: Communicated with on at 9:48 AM. CR_1 House Sitter: NGOC Transcribe Date/Time: Jun 12 2022 9:43A Dictated by : PHILL WALLIS MD This examination was interpreted and the report review ed and electronically signed by: PHILL WALLIS MD on Jun 12 2022 9:48AM EST [id number] CRITICAL!! CTA HEAD W IVCON on 06-12-2022 CTA HEAD W IVCON * * *Final Report* * * Normal A [facility] DATE OF EXAM: Jun 12 2022 9:50AM [facility] 0022 - CTA HEAD W IVCON / PROCEDURE REASON: Focal neuro deficit, new, fixed, or worsening, 4.5 to 24 hours, NIHSS < 6, strok * * * * Physician Interpretation * * * * EXAMINATION: CTA NECK W IVCON, CTA HEAD W IVCON HISTORY: Focal neuro deficit, new, fixed, or worsening , 4.5 to 24 hours, NIHSS < 6, strok TECHNIQUE: Spiral high resolution axial images were ob tained through the head, neck and superior mediastinum following bolu s administration of intravenous contrast for CT angiography. 3D maximum in tensity projection images were created, reviewed and archived . MQ: CTAHN_4 Contrast: 100 mL Omnipaque [address] Radiation dose: Integrated Dose-Length Product (DLP ) for this visit = 490 mGy*cm. CT Dose Reduction Employed: Automated exposure control (AEC) and iterative recon COMPARISON: Same day CT brain RESULT: BRAIN: Evaluation of the individual slices of the CTA demonst rates no evidence of an acute stroke. ASPECT Score = 10 Hemorrhage: No evidence of acute intracranial hemorrha ge. ECASS hemorrhagic transformation score: Not Applicable Spot Sign Presence: Not Applicable Spot Sign Number: Not Applicable NECK: Soft tissues: The soft tissue planes are maintained th roughout. No evidence of a soft tissue mass in the neck or superior mediastinum. No significant lymphadenopathy is seen. Spine: Straightening of the cervical lordosis. Mild de generative changes are present. Lung apices: The visualized lung apices are clear. CT ARTERIOGRAM: Extracranial Circulation: Aortic Arch: There is a normal branching pattern from the aortic arch.. There is no significant stenosis in the proximal brach iocephalic vessels. No dissection or pseudoaneurysm in the neck vessels. Carotid Stenosis: Right Common: No significant stenosis. Right Internal Carotid Plaque: No significant plaque f ormation. Right Internal Carotid Stenosis (% by NASCET Criteria) : 0% Left Common: No significant stenosis. Left Internal Carotid Plaque: No significant plaque fo rmation. Left Internal Carotid Stenosis (% by NASCET Criteria): 0% Cervical Vertebral Arteries: Diffuse small caliber of the right cervical vertebral artery. Patency: Bilateral Dominance: Left Intracranial Circulation: Anterior Circulation: Intracranial ICAs are patent. Th e ACAs and MCAs are patent. No significant stenosis. No aneurysm. Vertebrobasilar Circulation: The right V4 segment is d iminished after PICA taking off. The left V4 segment is dominant and n ormal, which supplies the basilar artery. The basilar artery is pat ent. trailer mechanic are patent. SCAs are patent. No significant stenosis. No a neurysm. The major dural sinuses and draining veins are patent. Fingerprinter (topogram) images: No additional findings. IMPRESSION: Diffuse small caliber of the right cervical vertebral artery. The right V4 segment is diminished after PICA takeoff, which is of questionable clinical significance. The left vertebral artery is do minant and normal, which supplies the normal basilar artery. Otherwise unremarkable CTA head and neck. Arterial blood flow was measured to detect acute large vessel occlusion by computer aided detection software: None. Concordance between software and imaging review: Lindsey bell. House Sitter: [employer] Transcribe Date/Time: Jun 12 2022 9:56A Dictated by : PHILL WALLIS MD This examination was interpreted and the report review ed and electronically signed by: PHILL WALLIS MD on Jun 12 2022 10:17AM EST [id number] CTA NECK W IVCON on 06-12-2022 CTA NECK W IVCON * * *Final Report* * * Normal A [facility] DATE OF EXAM: Jun 12 2022 9:50AM Center [facility] 0024 - CTA NECK W IVCON / PROCEDURE REASON: Focal neuro deficit, new, fixed, or worsening, 4.5 to 24 hours, NIHSS < 6, strok * * * * Physician Interpretation * * * * EXAMINATION: CTA NECK W IVCON, CTA HEAD W IVCON HISTORY: Focal neuro deficit, new, fixed, or worsening , 4.5 to 24 hours, NIHSS < 6, strok TECHNIQUE: Spiral high resolution axial images were ob tained through the head, neck and superior mediastinum following bolu s administration of intravenous contrast for CT angiography. 3D maximum in tensity projection images were created, reviewed and archived . MQ: CTAHN_4 Contrast: 100 mL Omnipaque [address] Radiation dose: Integrated Dose-Length Product (DLP ) for this visit = 490 mGy*cm. CT Dose Reduction Employed: Automated exposure control (AEC) and iterative recon COMPARISON: Same day CT brain RESULT: BRAIN: Evaluation of the individual slices of the CTA demonst rates no evidence of an acute stroke. ASPECT Score = 10 Hemorrhage: No evidence of acute intracranial hemorrha ge. ECASS hemorrhagic transformation score: Not Applicable Spot Sign Presence: Not Applicable Spot Sign Number: Not Applicable NECK: Soft tissues: The soft tissue planes are maintained th roughout. No evidence of a soft tissue mass in the neck or superior mediastinum. No significant lymphadenopathy is seen. Spine: Straightening of the cervical lordosis. Mild de generative changes are present. Lung apices: The visualized lung apices are clear. CT ARTERIOGRAM: Extracranial Circulation: Aortic Arch: There is a normal branching pattern from the aortic arch.. There is no significant stenosis in the proximal brach iocephalic vessels. No dissection or pseudoaneurysm in the neck vessels. Carotid Stenosis: Right Common: No significant stenosis. Right Internal Carotid Plaque: No significant plaque f ormation. Right Internal Carotid Stenosis (% by NASCET Criteria) : 0% Left Common: No significant stenosis. Left Internal Carotid Plaque: No significant plaque fo rmation. Left Internal Carotid Stenosis (% by NASCET Criteria): 0% Cervical Vertebral Arteries: Diffuse small caliber of the right cervical vertebral artery. Patency: Bilateral Dominance: Left Intracranial Circulation: Anterior Circulation: Intracranial ICAs are patent. Th e ACAs and MCAs are patent. No significant stenosis. No aneurysm. Vertebrobasilar Circulation: The right V4 segment is d iminished after PICA taking off. The left V4 segment is dominant and n ormal, which supplies the basilar artery. The basilar artery is pat ent. trailer mechanic are patent. SCAs are patent. No significant stenosis. No a neurysm. The major dural sinuses and draining veins are patent. Fingerprinter (topogram) images: No additional findings. IMPRESSION: Diffuse small caliber of the right cervical vertebral artery. The right V4 segment is diminished after PICA takeoff, which is of questionable clinical significance. The left vertebral artery is do minant and normal, which supplies the normal basilar artery. Otherwise unremarkable CTA head and neck. Arterial blood flow was measured to detect acute large vessel occlusion by computer aided detection software: None. Concordance between software and imaging review: Lindsey bell. House Sitter: NGOC Transcribe Date/Time: Jun 12 2022 9:56A Dictated by : PHILL WALLIS MD This examination was interpreted and the report review ed and electronically signed by: PHILL WALLIS MD on Jun 12 2022 10:17AM EST [id number] ECG COMPLETE on 06-12-2022 ECG COMPLETE Ventricular Rate : 112 BPM Normal A [facility] Atrial Rate : 112 BPM Center P-R Interval : 166 ms QRS Duration : 88 ms Q-T Interval : 358 ms QTC Calculation(Bazett) : 488 ms Calculated P [place] : 66 degrees Calculated R [place] : 46 degrees Calculated T [place] : 40 degrees SINUS TACHYCARDIA OTHERWISE NORMAL ECG NO PREVIOUS ECGS AVAILABLE Confirmed by MD WADE THOMAS ([id number]) on 06/19/2022 4: 41:58 PM NAME : EVER MCKEON PID : [id number] : 1970 Gender : Female Race : ORD : [id number] Procedure Date : Jun 12 2022 09:57:44 Edit Date : Jun 19 2022 16:42:02 Diagnosis: SINUS TACHYCARDIA OTHERWISE NORMAL ECG NO PREVIOUS ECGS AVAILABLE Confirmed by MD WADE THOMAS ([id number]) on 06/19/2022 4: 41:58 PM Test Reason : Stroke Location : 4 : [facility] EM Overread By : MD WADE THOMAS Edited By : MD WADE THOMAS Referred By : , Acquired by : SOSA DELANEY ED NOTE on 06-12-2022 ED NOTE HNO ID: [id number] [facility] Author: Paula Vital RN Service: Emergency Medicine Author Type: Registered Nurse Type: ED Notes Filed: 06/12/2022 11:21 AM Note Text: To bathroom with steady gait ED NOTE HNO ID: [id number] [facility] Author: Paula Vital RN Service: Emergency Medicine Author Type: Registered Nurse Type: ED Notes Filed: 06/12/2022 10:33 AM Note Text: Error in charting time @0833 actual time 0933 ED PROV NOTE on 06-12-2022 ED HNO ID: [id number] [facility] Author: Manish Huddleston MD General NOTE Service: Emergency Medicine Medical Author Type: Resident Center Type: ED Provider Notes Filed: 06/12/2022 2:14 PM Note Text: Attestation signed by Gunnar Zhou MD at 06/12/2022 2:38 PM Attending Note I evaluated the patient and personally participated in the carey components. I agree with the resident's findings and plan as anjana meadows and have discussed the case and management of the patient's care with the resident. Please see separate ED provi jose note for additional details/changes to resident documentation. Signature: Gunnar Zhou MD Date: 06/12/2022 Time: 2:37 PM ED Provider Note Patient Name: Ever Mckeon : 1970 SERVICE DATE: 06/12/22 History Patient presents with: Potential Stroke Symptoms: See stroke narrator This is a 51-year-old female who presents to the emerg ency department for strokelike symptoms. Patient began having altered ment al status this morning with last known normal at 8:15 AM. EMS noted e xpressive aphasia during their evaluation. Patient denies any symptoms a nd is unsure why she is in the emergency department. Blood glucose was 121. Patient's health care consultant came in later and states that patient has a history of alcohol abuse and drug a buse but as long as she is now on her over the last 6 months she has been clean with no relapse that she is aware of. Per chart review, patient does have a history of alcoh olic cirrhosis. PAST MEDICAL HISTORY Diagnosis Date Depression with anxiety 02/03/2018 IBS (irritable bowel syndrome) Non morbid obesity 11/16/2017 Primary osteoarthritis of left knee 11/16/2017 PAST SURGICAL HISTORY Procedure Laterality Date ANKLE fx with hardware CHOLECYSTECTOMY HX HAND SURGERY HX Right reconstruction ORTHOPEDICS SURGERY HX rt shoulder PAST SURGICAL HISTORY OF x2 PAST SURGICAL HISTORY OF tubal ligation FAMILY HISTORY Problem Relation Age of Onset Hypertension Mother Hyperlipidemia Mother Cancer Mother cervical other (Fibromyalgia) Mother COPD Father Social History Tobacco Use Smoking status: Former Packs/day: 0.50 Years: 5.00 Pack years: 2.50 Types: Cigarettes Quit date: 11/02/2017 Years since quittin.6 Smokeless tobacco: Never Tobacco comments: quit 17 months ago Substance and Sexual Activity Alcohol use: Yes Comment: social Drug use: No Sexual activity: Never ALLERGIES Allergen Reactions Vicodin [Hydrocodon* GI Upset Review of Systems Unable to perform ROS: Mental status change Physical Exam Vitals BP Pulse Temp Temp src Resp SpO2 Weight Height 06/12/22 0930 06/12/22 0930 06/12/22 0954 06/12/22 095 4 06/12/22 0930 06/12/22 0930 06/12/22 0930 06/12/22 0930 127/65 (!) 111 37.1 ?C (98.8 ?F) Oral 20 100 % 115 kg (253 lb 8.5 oz) 1.702 m (5' 7 ) Physical Exam Vitals and nursing note reviewed. Constitutional: General: She is not in acute distress. Appearance: Normal appearance. She is not ill-appearin g. HENT: Head: Normocephalic and atraumatic. Mouth/Throat: Mouth: Mucous membranes are moist. Pharynx: No oropharyngeal exudate or posterior orophar yngeal erythema. Eyes: Extraocular Movements: Extraocular movements intact. Conjunctiva/sclera: Conjunctivae normal. Pupils: Pupils are equal, round, and reactive to light . Cardiovascular: Rate and Rhythm: Normal rate and regular rhythm. Pulses: Normal pulses. Heart sounds: Normal heart sounds. No murmur heard. No friction rub. No gallop. Pulmonary: Effort: Pulmonary effort is normal. No respiratory dis tress. Breath sounds: Normal breath sounds. No wheezing. Chest: Chest wall: No tenderness. Abdominal: General: Abdomen is flat. Bowel sounds are normal. The re is no distension. Palpations: Abdomen is soft. Tenderness: There is no abdominal tenderness. There is no guarding. Musculoskeletal: General: No deformity. Normal range of motion. Skin: General: Skin is warm and dry. Findings: No bruising or rash. Neurological: General: No focal deficit present. Mental Status: She is alert. She is disoriented. Cranial Nerves: No cranial nerve deficit. Sensory: No sensory deficit. Motor: No weakness. Coordination: Coordination normal. Comments: NIHSS: 1(a). Mental Status - LOC 0 = Alert and Attentive 1(b). LOC Questions 2 = Neither 1(c). LOC-Commands 0 = Both 2. Gaze 0 = Normal 3. Visual Gonzáles 0 = Full 4. Facial Weakness 0 = Normal 5(a). Left Arm 0 = No drift 5(b). Right Arm 0 = No drift 6(a). Left Leg 0 = No drift 6(b). Right Leg 0 = No drift 7. Ataxia 0 = Absent 8. Sensory 0 = Normal 9. Aphasia 1 = Mild to Moderate 10. Dysarthria 0 = Absent 11. Neglect 0 = None NIHSS Total (0-42): 3 No asterixis on exam (more content not included)... ED HNO ID: [id number] Normal [place] PROV Author: MD Lakhwinder Hein al NOTE Service: Emergency Medicine Medical Author Type: Physician Brittany del rio Type: ED Provider Notes Filed: 06/12/2022 2:51 PM Note Text: Attending Note I personally saw and examined the patient. I reviewed the resident's note. I agree with the resident's assessment and plan unless otherwise noted. I was present for the significant portion of the procedu re(s). Brief HPI: Ever Mckeon is a 51 year old female with a PMH of alcoholism, anxiety presenting the emergency departmen t for difficulty speaking and feeling unwell. EMS called to home for di fficulty speaking. Last normal 0815 (seen by family, went upstairs and ca me downstairs shortly after with speech difficulty). Evaluated in S bay upon arrival. Tearful and anxious on arrival. NIHSS: 0930 (upon arrival to Ed) was struggling to ans wer orientation question / given birthday / year. Repeat phrases witho ut difficulty. Speech not slurred. 1(a). Mental Status - LOC 0 = Alert and Attentive 1(b). LOC Questions 2 = Neither 1(c). LOC-Commands 0 = Both 2. Gaze 0 = Normal 3. Visual Gonzáles 0 = Full 4. Facial Weakness 0 = Normal 5(a). Left Arm 0 = No drift 5(b). Right Arm 0 = No drift 6(a). Left Leg 0 = No drift 6(b). Right Leg 0 = No drift 7. Ataxia 0 = Absent 8. Sensory 0 = Normal 9. Aphasia 2 = Severe 10. Dysarthria 0 = Absent 11. Neglect 0 = None NIHSS Total (0-42): 4 PAST MEDICAL HISTORY Diagnosis Date Depression with anxiety 02/03/2018 IBS (irritable bowel syndrome) Non morbid obesity 11/16/2017 Primary osteoarthritis of left knee 11/16/2017 Physical Exam: - Gen: Well appearing, NAD, anxious. BP hypertensive f or EMS improved in ED. - HEENT: AT/NC, PERRL. No visual field deficit. Full e xtraocular motions intact. Normal range of motion the neck. - CV: mildly tachycardic. - Pulm: No respiratory distress, CTAB - abdomen: mild distension, soft, non tender. - Neuro: oriented to person and place. Does not rememb er year. NIHSS as above. MDM/Plan: Due to speech impairment/aphasia stroke team was called upon arrival. Her symptoms did improve in the emergency dep artment and felt more to be able related to a mild self colopathy versu s anxiety. Work-up was notable for an elevated ammonia level (looks to prado ve been referred to GI for cirrhosis workup in the past but does not appea r to have been completed). Later in ED visit was alert and oriented x 3 for staff and speech was much improved. Discussion with stroke neurology, felt that tPA risks outweighs benefits and neurologic exam improving on arrival. Utox neg. Am monia 107. Remainder of labs reviewed -elevated alk phos. Nitrite in urine. Culture sent and pending. Admit for AMS / additional stroke workup. Gunnar Zhou MD 06/12/22 1451 Ethanol SerPl-mCnc on 06-12-2022 Ethanol [Mass/Vol] mg/dL Normal <11 [facility] Comment on above: Order Comment: Specimen Type : BLOOD SPECIMEN Ordering Facility: [facility] Address: [address] [place] [address] Performed By: #### 3298-7, 4 024-6, 5643-2 #### [facility] CLIA [id number] [address] [place] [address] [place] HIGH SENSITIVITY TROPONIN T on 06-12-20 HIGH SENSITIVITY JEFFERY 8 ng/L Normal <12 [facility] Comment on above: Order Comment: Specimen Type : BLOOD SPECIMEN Ordering Facility: [facility] Address: [address] [place] [address] Result Comment: When assessi ng risk for acute coronary syndromes: In patients undergoing blood draw greater than or equal to 2 hours from symptom onset, with his tory of very low to moderate risk and non-ischemic ECG, an initial hs-Troponin T less than 12 ng/L AND a 1 hour delta hs-Troponin T l ess than 3 ng/L should be considered very low risk for 30 day MAC E. Performed By: #### 3298-7, 4 [id number] [id number] #### [facility] CLIA [id number] [address] [place] [address] [place] HISTORY PHYSICAL on 06-12-2022 HISTORY HNO ID: [id number] Normal [place] PHYSICAL Author: Neel juarez Service: [facility] Author Type: ? Center Type: [facility] Filed: 06/12/2022 6:54 PM Note Text: Attestation signed by Calvin Urban MD at 8:48 PM Supervision of Medical Student Attestation Note I verified the medical student?s documentation in the medical record. I personally performed a physical exam and medical decis ion making. I made appropriate changes to the documentation and the assessment and plan based on my verification, exam and medical decision making Signature: Calvin Urban MD Date: 06/12/2022 Time: 8:48 PM [facility] Patient Name: Ever Mckeon Admission: Altered Mental Status Date:June 12, 2022 Subjective HPI Ms. Ever Mckeon is a 51 year old female with PMH: a lcohol dependence (Quit in 2021), cirrhosis of liver without ascites, IB S, depression with anxiety, Iron defiency anemia, obesity, insomnia, and Osteoarthritis Patient presented to [facility] 06/12/2022 for evaluation of altered mental status. Her last known well was 8:15 in the morning of 06/12. She was tearful and anxious on arrival and was confused for th e reason for being in the hospital. The patient's health care consultant reported t hat she has a history of alcohol abuse. However, over the 6 months s he has been clean and has had no relapses. Neurology was consulted for s uspicion of stroke and they suggested a toxin/metabolic workup. On arrival to the ED her NIHSS score of 4. Labs were d one. BMP was wnl except for elevated glucose of 114. Her CBC was signif icant for microcytosis, Hgb of 9.9, and platelets of 99. Her LFT s were significant for albumin of 3.8, alk phos of 224, AST of 49, ALT of 32. Her urine tox was negative. Her EtOH level, salicylate, and acetamin ophen levels were normal. CT of the brain showed focal white matter hypo density in the left frontal chaudhari radiata age inderteminate. EKG showed n ormal sinus rhythm. CTA of the head/neck showed no acute stroke but showed , diffuse small caliber of the right cervical vertebral artery. Neurol shelli saw here and suggested that a metabolic workup be done, due to isch emic or hemorrhagic stroke being less likely. Ammonia level was obtained a nd was significant of 107, and she was given a dose of lactulose. She was then admitted to the house medicine service. Spoke to her at bedside. When starting the conversatio n she appeared to be confused and was having difficulty speaking, howeve r, within a minute she was speaking normally. She reports that the last t krystian she felt well was last night. Overnight she reports difficulty sleep ing. She reports that she had one episode of confusion like this in the past, but her workup was largely negative. She reports no recent dif ficulty walking, speaking, lifting things, problems with balance, slurr ed speech, changes in vision, hearing, tinnitus, loss of sensation, or he adaches. She also denies fevers, dysuria, hematuria, incontinence, or po lyuria. She does report increased size of her abdomen over the last 6 m onths. She denies every having gotten a paracentesis. She also reports t hat their is no neurological history in her family, except Multiple sc lerosis in her son. Review of Systems All other systems reviewed and are negative. PAST MEDICAL HISTORY Diagnosis Date Depression with anxiety 02/03/2018 IBS (irritable bowel syndrome) Non morbid obesity 11/16/2017 Primary osteoarthritis of left knee 11/16/2017 PAST SURGICAL HISTORY Procedure Laterality Date ANKLE fx with hardware CHOLECYSTECTOMY HX HAND SURGERY HX Right reconstruction ORTHOPEDICS SURGERY HX rt shoulder PAST SURGICAL HISTORY OF x2 PAST SURGICAL HISTORY OF tubal ligation FAMILY HISTORY Problem Relation Age of Onset Hypertension Mother Hyperlipidemia Mother Cancer Mother cervical other (Fibromyalgia) Mother COPD Father Social History Tobacco Use Smoking status: Former Packs/day: 0.50 Years: 5.00 Pack years: 2.50 Types: Cigarettes Quit date: 11/02/2017 Years since quittin.6 Smokeless tobacco: Never Tobacco comments: quit 17 months ago Substance Use Topics Alcohol use: Yes Comment: social Drug use: No No current facility-administered medications on file p rior to encounter. Current Outpatient Medications on File Prior to Encoun ter Medication Sig buPROPion XL (WELLBUTRIN XL) 150 mg 24 hr tablet Take 150 mg by mouth once daily. diclofenac (VOLTAREN) 1 % topical gel Apply 2 g to aff ected area three times daily. For 10 days nabumetone (RELAFEN) 500 mg tablet Take 500 mg by mout h twice daily. For 10 days with meals loratadine (CLARITIN) 10 mg tablet Take 10 mg by mouth once daily. fluticasone propionate (FLONASE NASAL) Use in the nose once daily. busPIRone ( (more content not included)... HISTORY HNO ID: [id number] Normal [place] PHYSICAL Author: DO Omkar Good Service: [facility] Medicine santos Author Type: Resident Center Type: HANDP Filed: 06/12/2022 5:23 PM Note Text: Attestation signed by Calvin Urban MD at 8:48 PM Supervision of Medical Student Attestation Note I verified the medical student?s documentation in the medical record. I personally performed a physical exam and medical decis ion making. I made appropriate changes to the documentation and the assessment and plan based on my verification, exam and medical decision making Signature: Calvin Urban MD Date: 06/12/2022 Time: 8:48 PM [facility] HANDP Patient Name: Ever Mckeon Date:June 12, 2022 Subjective HPI Ms. Ever Mckeon is a 51 year old female with a past medical history significant for: - Liver cirrhosis [thought to be crossover between lula karen biliary cholangitis, autoimmune hepatitis, and EtOH] - Former alcohol dependence [x 20 years, quit ] - Former tobacco dependence [0.5ppd x 15 years, quit 2 018] - Former IVDU [methamphetamines, last use 05/2019] - Iron deficiency anemia - Hx of pararenal hematoma [04/2020, s/p IR-guided drai n placement] - Diverticulosis - GERD - Moderate hiatal hernia - IBS [constipation] - Cholecystitis [s/p cholecystectomy 1998] - Obesity [BMI 39] - Osteoarthritis [left knee] - Seasonal allergies - Anxiety - Depression - Insomnia Prior ED visit for aphasia [at [facility] on 08/23/2021]: The patient presented with difficulty speaking and fin ding her words. NIH was 0 and neurological workup was unremarkable. The pa jamari was given lorazepam with improvement of her symptoms, which were deemed likely secondary to anxiety / panic attack. She was discharge d with a supply of lorazepam, which the patient says she was never actual ly able to use because it was stolen. Prior GI history [full imaging reports listed under Ob jective]: - Denies family history of colon or stomach cancer - Abdominal surgeries include x2 and cholecy stectomy - EGD [06/08/2019] by Dr. Guerrier to evaluate for source of unexplained BARBARA showed a small hiatal hernia and mild gastritis. Biops y showed reactive gastropathy and focal intestinal metaplasia. - Colonoscopy [06/08/2019] by Dr. Guerrier to evaluate for source of unexplained BARBARA revealed 4 polyps [transverse colon, c ecum, rectum]. Biopsies returned as tubular adenomas. Recommended fol low up colonoscopy in 3 years. - Paracentesis for perihepatic loculated ascites [05/22]: Only drained 10cc fluid, no SBP. - EGD [07/18/2020] by Dr. 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 06/12/2022 for evaluation of stro ke-like symptoms. The patient states that she lives in a rehab home, and last night her housemates were concerned that she was acting strangel y. She reports staying up all night and that she was pouring milk int o a bunch of different containers for no reason, but she did not re radha it was strange at the time. She then reportedly became acutely altere d the morning of presentation, with her last known normal being earlier in the morning at 8:15 AM. Her housemates were concerned that her speech was acutely impaired and felt she should go to the hospital. EMS e ndorsed aphasia on their evaluation. Of note, she was hypertensive to sys tolics of 180s en route to the hospital [with no history of hypertension ]. ED Course [06/12/2022]: Upon arrival, the patient was mildly tachycardic up to 116, but otherwise hemodynamically stable and protecting her airway with adequate saturations on room air. The patient's rn field case manager was present, a nd reports that in the last 6 months that she has been working with the [employer], the patient has not had any relapse of drug or alcohol use. Stroke Team was called for the patient's symptoms, and Dr. Itrat [Neurology] came to bedside to evaluate the patient. Initial lab work showed microcyt ic anemia with hemoglobin 9.9, platelets 99, BG 114, BUN 15, creatini ne 0.58, no significant electrolyte derangements, normal coags, Hs JEFFERY negative, albumin 3.8, total bilirubin 0.5, alk phos 224, AST 49 , ALT 32, negative EtOH, negative salicylates, negative acetaminophen, nega (more content not included)... Hepatic function 2000 panel on 06-12-20 Albumin [Mass/Vol] 3.8 g/dL Low 3.9-4.9 [facility] Comment on above: Order Comment: Specimen Type : BLOOD SPECIMEN Ordering Facility: [facility] Address: [address] [place] [address] [place] [address] Performed By: #### 3298-7, 4 024-6, 5643-2 #### [facility] CLIA [id number] [address] [facility] ALP [Catalytic activity/Vol] 224 U/L High 34-123 [facility] Comment on above: Order Comment: Specimen Type : BLOOD SPECIMEN Ordering Facility: [facility] Address: [address] [place] [address] [place] [address] Performed By: #### 3298-7, 4 024-6, 5643-2 #### [facility] CLIA [id number] [address] [facility] ALT With P-5'-P [Catalytic 32 U/L Normal 7-38 A [facility] activity/Vol] Comment on above: Order Comment: Specimen Type : BLOOD SPECIMEN Ordering Facility: [facility] Address: [address] [place] [address] Performed By: #### 3298-7, 4 024-6, 5643-2 #### [facility] CLIA [id number] [address] [facility] AST With P-5'-P [Catalytic 49 U/L High 13-35 A [facility] activity/Vol] Comment on above: Order Comment: Specimen Type : BLOOD SPECIMEN Ordering Facility: [facility] Address: [address] Performed By: #### 3298-7, 4 024-6, 5643-2 #### [facility] CLIA [id number] [address] [place] Bilirubin [Mass/Vol] 0.5 mg/dL Normal 0.2-1.3 [facility] Comment on above: Order Comment: Specimen Type : BLOOD SPECIMEN Ordering Facility: [facility] Address: [address] [place] [address] Performed By: #### 3298-7, 4 024-6, 5643-2 #### [facility] CLIA [id number] [address] Bilirubin.conjugated [Mass/Vol] mg/dL Normal <0.2 [facility] Comment on above: Order Comment: Specimen Type : BLOOD SPECIMEN Ordering Facility: [facility] Address: [address] [place] [address] Performed By: #### 3298-7, 4 024-6, 5643-2 #### [facility] CLIA [id number] [address] Protein [Mass/Vol] 6.8 g/dL Normal 6.3-8.0 [facility] Comment on above: Order Comment: Specimen Type : BLOOD SPECIMEN Ordering Facility: [facility] Address: [address] [place] [address] Performed By: #### 3298-7, 4 024-6, 5643-2 #### [facility] CLIA [id number] [address] PT panel Coag (PPP) on 06-12-2022 INR Coag (PPP) [Relative time] 1.1 {INR} Normal 0.9-1.3 [facility] Comment on above: Order Comment: Specimen Type : BLOOD SPECIMEN Ordering Facility: [facility] Address: [address] [place] [address] Result Comment: Vitamin K An tagonist (VKA) Therapeutic Range: INR 2 to 3 (Target INR of 2.5) Note: For patients treated w ith VKA drugs, such as warfarin, the [employer] 2012 Guideline recommends a therapeutic INR range of 2 to 3 (target INR of 2.5). This recommendation includes high-risk patients with antiphospholipid syndrome with previous arterial or venous thromboembolism, current-generation mechanical or bioprosthetic aortic heart valve replacement. Note: Patients with experimental preflight mechanic al aortic valve replacement and additional risk factors for thromboembolic events (atrial fibrillation, previous thromboembolism, LV dysfunction, hypercoagulable conditions) or an older generation mecha nical AVR (i.e., ball in-Cage) or any mechanical MVR should have a INR therapeutic range of 2.5 to 3.5 (target INR of 3). Xochitl ZEPEDA, et al. Chest 2012 , 141:7S-47S Denisse MCKEON et al. [facility] 20 , 70: 252-289 Performed By: #### 3298-7, 4 024-6, 5643-2 #### [facility] CLIA [id number] 1 [place] [address] [place] PT Coag (PPP) [Time] 11.6 s Normal 9.7-13.0 [facility] Comment on above: Order Comment: Specimen Type : BLOOD SPECIMEN Ordering Facility: [facility] Address: [address] [place] [phone] Performed By: #### 3298-7, 4 024-6, 5643-2 #### [facility] CLIA [id number] 1 [place] [address] [place] SARS-CoV-2 RNA Resp Ql SAADIA+probe on SARS-CoV-2 (COVID-19) SARS-CoV-2 (Agent of Normal Not Detecte d [facility] RNA SAADIA+probe Ql (Resp) COVID-19) Not Detected [facility] by RT-PCR or equivalent method. Comment on above: Order Comment: Specimen Type : SWAB OF INTERNAL NOSEOrdering Facility: [facility] Address: [address] [place] [phone] Result Comment: This test prado s been authorized by FDA under an Emergency Use Authorization (EUA). Performed By: #### 96607-2 # ###[facility] [id number] [facility] [address] [place] Salicylates SerPl-mCnc on 06-12-2022 Salicylates [Mass/Vol] mg/dL Low 3.0-30.0 [facility] Comment on above: Order Comment: Specimen Type : BLOOD SPECIMEN Ordering Facility: [facility] Address: [address] [place] [address] Result Comment: The therapeu tic range varies and has been reported to be 3.0 to 10.0 mg/dL for anti pyretic/analgesic conditions and 15.0 to 30.0 mg/dL for anti inflammatory/rheumatic fever conditions. Ranges published by the inst rument atm technician. Reference ranges and high/lo w indicator flags are provided as general guidelines only. The treating physician must determine appropriate target levels/dosing based on the specific clinical situation. Performed By: #### 3298-7, 4 024-6, 5643-2 #### [facility] CLIA [id number] [address] [place] [address] [place] TOX SCREEN ROUT UR on 06-12-2022 Amphetamines Confirm (U) Negative Normal Negative [facility] [Mass/Vol] Center Comment on above: Order Comment: Specimen Type : URINE SPECIMEN Ordering Facility: [facility] Address: [address] [place] [address] Result Comment: Cutoff thres hold at 1000 ng/mL. Performed By: #### UTOX2 ### # [facility] CLIA [id number] [address] [place] BARBITURATES, URINE Negative Normal Negative [facility] Comment on above: Order Comment: Specimen Type : URINE SPECIMEN Ordering Facility: [facility] Address: [address] [place], [place] [id number] Result Comment: Cutoff thres hold at 200 ng/mL. Performed By: #### UTOX2 ### # [facility] CLIA [id number] [address] [facility] BENZODIAZEPINES, UR Negative Normal Negative [facility] Comment on above: Order Comment: Specimen Type : URINE SPECIMEN Ordering Facility: [facility] Address: [address] [place] [place] [address] Result Comment: Cutoff thres hold at 200 ng/mL. Performed By: #### UTOX2 ### # [facility] CLIA [id number] [address] [facility] CANNABINOIDS,URINE Negative Normal Negative [facility] Comment on above: Order Comment: Specimen Type : URINE SPECIMEN Ordering Facility: [facility] Address: [address] [place] [address] Result Comment: Cutoff thres hold at 50 ng/mL. Performed By: #### UTOX2 ### # [facility] CLIA [id number] [address] Cocaine Ql (U) Negative Normal Negative [facility] Comment on above: Order Comment: Specimen Type : URINE SPECIMEN Ordering Facility: [facility] Address: [address] [place] [address] Result Comment: Cutoff thres hold at 300 ng/mL. Performed By: #### UTOX2 ### # [facility] CLIA [id number] [address] Ethanol (U) [Mass/Vol] <11 Normal <11 [facility] Comment on above: Order Comment: Specimen Type : URINE SPECIMEN Ordering Facility: [facility] Address: [address] [place] [address] Performed By: #### UTOX2 ### # [facility] CLIA [id number] [address] Opiates Screen Ql (U) Negative Normal Negative [facility] Comment on above: Order Comment: Specimen Type : URINE SPECIMEN Ordering Facility: [facility] Address: [address] [place] [address] Result Comment: Cutoff thres hold at 300 ng/mL. Performed By: #### UTOX2 ### # [facility] CLIA [id number] [address] oxyCODONE cutoff Screen (U) Negative Normal Negative [facility] [Mass/Vol] Comment on above: Order Comment: Specimen Type : URINE SPECIMEN Ordering Facility: [facility] Address: [address] [place] [address] Result Comment: Cutoff thres hold at 100 ng/mL. Performed By: #### UTOX2 ### # [facility] CLIA [id number] [address] Phencyclidine Ql (U) Negative Normal Negative [facility] Comment on above: Order Comment: Specimen Type : URINE SPECIMEN Ordering Facility: [facility] Address: [address] [place] [address] Result Comment: Cutoff thres hold at 25 ng/mL. Performed By: #### UTOX2 ### # [facility] CLIA [id number] [address] Urinalysis complete panel (U) on 2021 Bilirubin Ql (U) Negative Normal Negative [facility] Comment on above: Order Comment: Specimen Type : BLOOD SPECIMEN Ordering Facility: [facility] Address: [address] [place] [address] Performed By: #### 3298-7, 4 024-6, 5643-2 #### [facility] CLIA [id number] [address] Clarity (Unsp spec) Clear Normal Clear [facility] Comment on above: Order Comment: Specimen Type : BLOOD SPECIMEN [facility]ing Facility: [facility] Address: [address] [place] [address] Performed By: #### 3298-7, 4 024-6, 5643-2 #### [facility] CLIA [id number] [address] Color (U) Light Yellow Normal yellow [facility] Comment on above: Order Comment: Specimen Type : BLOOD SPECIMEN Ordering Facility: [facility] Address: [address] [place] [address] Performed By: #### 3298-7, 4 024-6, 5643-2 #### [facility] CLIA [id number] [address] Glucose Test strip (U) Negative Normal Negative [facility] [Mass/Vol] Comment on above: Order Comment: Specimen Type : BLOOD SPECIMEN Ordering Facility: [facility] Address: [address] [place] [address] Performed By: #### 3298-7, 4 024-6, 5643-2 #### [facility] CLIA [id number] [address] Hemoglobin Ql (U) Negative Normal Negative [facility] Comment on above: Order Comment: Specimen Type : BLOOD SPECIMEN Ordering Facility: [facility] Address: [address] [place] [address] Performed By: #### 3298-7, 4 024-6, 5643-2 #### [facility] CLIA [id number] [address] Ketones Ql (U) Negative Normal Negative [facility] Comment on above: Order Comment: Specimen Type : BLOOD SPECIMEN Ordering Facility: [facility] Address: [address] [place] [address] Performed By: #### 3298-7, 4 024-6, 5643-2 #### [facility] CLIA [id number] [address] Leukocyte esterase Test strip Negative Normal Negative [facility] Ql (U) Comment on above: Order Comment: Specimen Type : BLOOD SPECIMEN Ordering Facility: [facility] Address: [address] [place] [address] Performed By: #### 3298-7, 4 024-6, 5643-2 #### [facility] CLIA [id number] [address] [place] Nitrite Ql (U) 2+ Abnormal Negative [facility] Comment on above: Order Comment: Specimen Type : BLOOD SPECIMEN Ordering Facility: [facility] Address: [address] [place] [address] [place] [address] Performed By: #### 3298-7, 4 024-6, 5643-2 #### [facility] CLIA [id number] [address] [place] pH (U) 7.0 [pH] Normal 5.0-8.0 [facility] Comment on above: Order Comment: Specimen Type : BLOOD SPECIMEN Ordering Facility: [facility] Address: [address] [place] [address] Performed By: #### 3298-7, 4 024-6, 5643-2 #### [facility] CLIA [id number] [address] [place] [address] S [facility] Protein (U) [Mass/Vol] Negative Normal Negative [facility] Comment on above: Order Comment: Specimen Type : BLOOD SPECIMEN Ordering Facility: [facility] Address: [address] [place] [address] Performed By: #### 3298-7, 4 024-6, 5643-2 #### [facility] CLIA [id number] [address] [facility] RBC LM.HPF (Urine sed) 3-5 /HPF Abnormal 0-3 /HPF [facility] [#/Area] Comment on above: Order Comment: Specimen Type : BLOOD SPECIMEN Ordering Facility: [facility] Address: [address] [place] [address] Performed By: #### 3298-7, 4 024-6, 5643-2 #### [facility] CLIA [id number] [address] [place] [address] [facility] Specific gravity (U) [Rel 1.030 Normal 1.005-1.030 [place] density] Comment on above: Order Comment: Specimen Type : BLOOD SPECIMEN Ordering Facility: [facility] Address: [address] Performed By: #### 3298-7, 4 024-6, 5643-2 #### [facility] CLIA [id number] [address] Urobilinogen Ql (U) Normal Normal Negative [facility] Comment on above: Order Comment: Specimen Type : BLOOD SPECIMEN Ordering Facility: [facility] Address: [facility] [place] [address] Performed By: #### 3298-7, 4 024-6, 5643-2 #### [facility] CLIA [id number] [address] [place] [address] WBC LM.HPF (Urine sed) [#/Area] 0-5 /HPF Normal 0-5 /HPF [facility] Comment on above: Order Comment: Specimen Type : BLOOD SPECIMEN Ordering Facility: [facility] Address: [facility] [place] [address] Performed By: #### 3298-7, 4 024-6, 5643-2 #### [facility] CLIA [id number] [address] [place] [address] aPTT PPP on 06-12-2022 aPTT Coag (PPP) [Time] 26.2 s Normal 23.0-32.4 [facility] Comment on above: Order Comment: Specimen Type : BLOOD SPECIMEN Ordering Facility: [facility] Address: [facility] [place] [place] [address] Performed By: #### 3298-7, 4 024-6, 5643-2 #### [facility] CLIA [id number] [address] [place] [address] ED PROV NOTE on 05-06-2022 ED PROV NOTE HNO ID: [id number] Normal [facility] Author: Bharat Lane PA-C Center Service: Emergency Medicine Author Type: Physician Balance Recesser Type: ED Provider Notes Filed: 05/07/2022 12:20 AM Note Text: ED Provider Note Patient Name: Ever Mckeon : 1970 SERVICE DATE: 05/06/22 History Patient presents with: Covid19 Concern: Pt sent from a recovery house for cov id test. + nausea, + vomiting since today, + cough, + low grade fever yeste rday 100.3f. Denies abd pain. + ear pain This is a 51-year-old female presenting to the emergen cy department for needing a COVID-19 test. Patient is currently staying at a recovery house, she states that she felt nauseous today and had an episode of vomiting. She states that she is now feeling fine just a bit nauseous. She also reports a cough. She states that she was refe rred to the ER to get COVID tested by the staff at the recovery house. C ontrary to triage note, patient denies any fever. She denies any chest p ain, shortness of breath, sore throat congestion. No sick contacts. PAST MEDICAL HISTORY Diagnosis Date - Depression with anxiety 02/03/2018 - IBS (irritable bowel syndrome) - Non morbid obesity 11/16/2017 - Primary osteoarthritis of left knee 11/16/2017 PAST SURGICAL HISTORY Procedure Laterality Date - ANKLE fx with hardware - CHOLECYSTECTOMY HX - HAND SURGERY HX Right reconstruction - ORTHOPEDICS SURGERY HX rt shoulder - PAST SURGICAL HISTORY OF x2 - PAST SURGICAL HISTORY OF tubal ligation FAMILY HISTORY Problem Relation Age of Onset - Hypertension Mother - Hyperlipidemia Mother - Cancer Mother cervical - other (Fibromyalgia) Mother - COPD Father Social History Tobacco Use - Smoking status: Former Smoker Packs/day: 0.50 Years: 5.00 Pack years: 2.50 Types: Cigarettes Quit date: 11/02/2017 Years since quittin.5 - Smokeless tobacco: Never Used - Tobacco comment: quit 17 months ago Substance and Sexual Activity - Alcohol use: Yes Comment: social - Drug use: No - Sexual activity: Never ALLERGIES Allergen Reactions - Vicodin [Hydrocodon* GI Upset Review of Systems Constitutional: Negative for chills and fever. Respiratory: Positive for cough. Negative for shortnes s of breath. Cardiovascular: Negative for chest pain. Gastrointestinal: Positive for nausea and vomiting. Ne gative for abdominal pain and diarrhea. Genitourinary: Negative for dysuria and hematuria. Psychiatric/Behavioral: Negative for suicidal ideas. All other systems reviewed and are negative. Physical Exam Vitals [05/06/22 1149] BP Pulse Temp Temp src Resp SpO2 Weight Height 136/58 88 36.6 ?C (97.9 ?F) Oral 18 97 % 90.3 kg (199 lb) 1.702 m (5' 7 ) Physical Exam Diagnostic Testing ED Labs Ordered and Reviewed - No data to display Results for orders placed or performed during the hosp ital encounter of 05/06/22 EXPEDITED COVID, FLU A/B + RSV Specimen: UPPER RESPIRATORY TRACT SWAB; Nasal Swab Result Value Ref Range COVID 19 Result Not Detected SARS-CoV-2 (Agent of COVID-19) Not Detected by RT-PCR or equivalent method. Influenza A PCR Negative for Influenza A by RT-PCR Neg ative for Influenza A by RT-PCR Influenza B PCR Negative for Influenza B by RT-PCR Neg ative for Influenza B by RT-PCR RSV PCR Negative for Respiratory Syncytial Virus (RSV) by PCR Negative for Respiratory Syncytial Virus (RSV) by PCR Procedures ED Course / Clinical Impression Vital signs were reviewed. Triage records were reviewed. Medical records were reviewed. Nursing notes were reviewed and incorporated. ASSESSMENT: Briefly, patient is a 51 year old female who presents with nausea, vomiting, also complaining of ear pain here for COVID test. ED COURSE: On arrival to the emergency department vital signs not ed be stable in triage. On exam, heart rate and rhythm is regular. Andreas gs are clear to auscultation throughout. Bilateral TMs show an effusio n no evidence of infection. Oropharynx is clear no erythema or exudate. No tonsillar swelling. Patient was given Zofran here for nausea. Sh e was tested for COVID along with flu and RSV. This was negative. Patie nt tolerated ki chris and crackers. Patient will be discharged ho ms. Will prescribe Zofran if she feels any more nausea. Also given Zyrtec prescription for bilateral TM effusions. We will have patient follow-up with primary care and return if she develops any new or worsening sympto ms. Pt discharged home d/t good condition. Pt instructed to f/u with PCP and encouraged to return if symptoms worsen or if new symptoms develop. Patient expressed understanding and consented to the a sade plan. No barriers of communication were apparent and I answered all questions. This note was generated using [employer] voice dictation. All resonable efforts were made to correct dictation errors but they still may occur given the nature of the software. Clinical Impressions (more content not included)... RPR on 10-08-2021 Reagin Ab RPR Ql (S) REAC Abnormal Non Reactive [facility] Comment on above: Performed By: #### RPR, RPRQ NT, SYPHTX #### [facility] [address] [place] [phone] RPR Quant Titer on 10-08-2021 RPR Quant Titer [id number] Normal [facility] Reference Lab Comment on above: Performed By: #### RPR, RPRQ NT, SYPHTX #### [facility] [address] [place] [phone] Syphilis Ttl w/Reflx on 10-08-2021 Syphilis Interp SYPH2 Normal [facility] Reference [facility] Comment on above: Performed By: #### RPR, RPRQ NT, SYPHTX #### [facility] [address] [place] [phone] Syphilis Ttl w/Reflx on 10-07-2021 Syphilis Screen Rslt REAC Abnormal Non Reactive [facility] Comment on above: Performed By: #### RPR, RPRQ NT, SYPHTX #### [facility] [address] [place] [phone] T. pallidum Ab IgG on 10-07-2021 T. pallidum IgG Qual Abnormal Negative [facility] Comment on above: Result Comment: Incorrect te st ordered. Correct order placed. Results to follow. SEE [id number] CHANGED PER CLIENT SERVICES CALL WITH [employer] [id number] Account Credited T. pallidum, IgG Normal [facility] Reference [facility] Comment on above: Result Comment: Incorrect te st ordered. Correct order placed. Results to follow. SEE [id number] CHANGED PER CLIENT SERVICES CALL WITH [employer] CR [id number] Account Credited GC/Chlamydia Amplif on 12-01-2021 Chlamydia Amplif Normal [facility] Comment on above: Result Comment: Positive for In low prevalence population s, the likelihood of a false positive may be higher than a true positive. Retesting by another method may be appropriate for patients who lack risk factors or clinical signs and symptoms consistent with infection. Chlamydia In low prevalence population s, the likelihood of a false positive may be higher than a true positive. Retesting by another method may be appropriate for patients who lack risk factors or clinical signs and symptoms consistent with infection. trachomatis by In low prevalence population s, the likelihood of a false positive may be higher than a true positive. Retesting by another method may be appropriate for patients who lack risk factors or clinical signs and symptoms consistent with infection. amplification.(*) In low prevalence population s, the likelihood of a false positive may be higher than a true positive. Retesting by another method may be appropriate for patients who lack risk factors or clinical signs and symptoms consistent with infection. GC Amplification NGPOS Normal [facility] RPR on 09-24-2021 Reagin Ab RPR Ql (S) Reactive Abnormal Non Reactive [facility] Comment on above: Performed By: #### RPR, RPRQ NT #### [facility] Immunology [address] [address] RPR Quant Titer on 09-24-2021 RPR Quant Titer [id number] Normal [facility] in Reference Lab Comment on above: Performed By: #### RPR, RPRQ NT #### [facility] [address] [address] Trich vaginalis Ampl on 09-24-2021 Trichomonas RNA Normal [facility] Reference [facility] Comment on above: Result Comment: Negative for This test was developed and its performance characteristics determined by [facility] [place] ([facility]). It has not been cleared or approved by the FDA. [facility] is regul ated under CLIA as qualified to perform high complexity testing. This test is used for clinical purposes. It should not be regarded as investigational or for research. Trichomonas This test was developed and its performance characteristics determined by [facility] [place] ([facility]). It has not been cleared or approved by the FDA. [facility] is regul ated under CLIA as qualified to perform high complexity testing. This test is used for clinical purposes. It should not be regarded as investigational or for research. vaginalis by This test was developed and its performance characteristics determined by [facility] [place] ([facility]). It has not been cleared or approved by the FDA. [facility] is regul ated under CLIA as qualified to perform high complexity testing. This test is used for clinical purposes. It should not be regarded as investigational or for research. amplification This test was developed and its performance characteristics determined by [facility] [place] ([facility]). It has not been cleared or approved by the FDA. [facility] is regul ated under CLIA as qualified to perform high complexity testing. This test is used for clinical purposes. It should not be regarded as investigational or for research. GC/Chlamydia Amplif on 09-23-2021 GC/Chlam Amp Source Vaginal Normal [facility] Reference [facility] Trich vaginalis Ampl on 09-23-2021 Trich vag Amp Source Urine Normal [facility] Basic Metabolic Panel on 08-23-2021 Anion gap [Moles/Vol] 7 mmol/L Normal 3-13 [facility] Comment on above: Performed By: #### BMP3, HEM DF, TROPN #### [facility] [address] [place] [address] Calcium [Mass/Vol] 9.3 mg/dL Normal 8.4-10.4 [facility] Comment on above: Performed By: #### BMP3, HEM DF, TROPN #### [facility] [address] [place] [address] CO2 [Moles/Vol] 23 mmol/L Normal -30 [facility] Comment on above: Performed By: #### BMP3, HEM DF, TROPN #### [facility] [address] [place] [address] Glucose [Mass/Vol] 121 mg/dL High 70-100 [facility] Comment on above: Performed By: #### BMP3, HEM DF, TROPN #### [facility] [address] [place] [address] Urea nitrogen [Mass/Vol] 21 mg/dL High 9-20 [facility] Comment on above: Performed By: #### BMP3, HEM DF, TROPN #### [facility] [address] [place] [address] Creatinine [Mass/Vol] 0.69 mg/dL Normal 0.52-1.25 [facility] Comment on above: Performed By: #### BMP3, HEM DF, TROPN #### [facility] [address] [place] [address] eGFR OTHER > 90.0 Normal >60 [facility] stem Comment on above: Result Comment: KDIGO guidel halley provide the following GFR categories: Stage GFR(ml/min/1.73 m2) [place] G1 >=90 Normal or high G2 60-89 Mildly decreased* G3a 45-59 Mildly to moderate ly decreased G3b 30-44 Moderately to haris rely decreased G4 15-29 Severely decreased G5 <15 Kidney failure *Relative to young adult lev el. In the absence of evidence o f kidney damage, neither GFR category G1 nor G2 fulfill t he criteria for CKD. The CKD-EPI equation is rajesh dated in individuals 18 years of age and older. Currently the best equation for estimating glomerular filtra tion rate (GFR) from serum creatinine in children is th e Bedside Kumar equation. It is less accurate in patie nts with extremes of muscle mass, restriction of dietary protein, ingestion of creatine, extra-renal metabolism of cr eatinine, or treatment with medications that affect sofía l tubular creatinine secretion. Performed By: #### BMP3, HEM DF, TROPN #### [facility] [address] [place] [address] GFR/1.73 sq M.predicted among blacks mL/min/{1.73_m2} Normal >60 [facility] MDRD (S/P/Bld) [Vol rate/Area] Comment on above: Performed By: #### BMP3, HEM DF, TROPN #### [facility] [address] [place] [address] Potassium [Moles/Vol] 3.9 mmol/L Normal 3.5-5.1 [facility] Comment on above: Performed By: #### BMP3, HEM DF, TROPN #### [facility] [address] [place] [address] Sodium [Moles/Vol] 137 mmol/L Normal 135-145 [facility] Comment on above: Performed By: #### BMP3, HEM DF, TROPN #### [facility] [address] [place] [address] Chloride [Moles/Vol] 107 mmol/L Normal 98-107 [facility] Comment on above: Performed By: #### BMP3, HEM DF, TROPN #### [facility] [address] [place] [address] Basic Metabolic Panel Ordered By: Ace Diamond on 08-23-2021 Anion gap [Moles/Vol] 7 mmol/L 3 - 13 mmol/L [facility] Work Phone: Calcium [Mass/Vol] 9.3 mg/dL 8.4 - 10.4 mg/dL [facility] Work Phone: Chloride [Moles/Vol] 107 mmol/L 98 - 107 mmol/L [facility] Work Phone: CO2 [Moles/Vol] 23 mmol/L 22 - 30 mmol/L [facility] Work Phone: [phone] Creatinine [Mass/Vol] 0.69 mg/dL 0.52 - 1.25 mg/dL [facility] Work Phone: EGFR IF NonAfrican >90.0 >60 mL/min [facility] Chinese Work Phone: [phone] Comment on above: KDIGO guidelines provide the following GFR categories: Stage GFR(ml/min/1.73 m2) [place] G1 >=90 Normal or high G2 60-89 Mildly decreased* G3a 45-59 Mildly to moderate ly decreased G3b 30-44 Moderately to haris rely decreased G4 15-29 Severely decreased G5 <15 Kidney failure *Relative to young adult lev el. In the absence of evidence o f kidney damage, neither GFR category G1 nor G2 fulfill t he criteria for CKD. The CKD-EPI equation is rajesh dated in individuals 18 years of age and older. Currently the best equation for estimating glomerular filtra tion rate (GFR) from serum creatinine in children is th e Bedside Kumar equation. It is less accurate in patie nts with extremes of muscle mass, restriction of dietary protein, ingestion of creatine, extra-renal metabolism of cr eatinine, or treatment with medications that affect sofía l tubular creatinine secretion. GFR/1.73 sq mL/min/{1.73_m2} >60 mL/min [facility] Work Phone : blacks MDRD (S/P/Bld) [Vol rate/Area] Glucose [Mass/Vol] 121 mg/dL High 70 - 100 [facility] mg/dL Work Phone: [phone] Interpretation and Abnormal [facility] review of laboratory Work Ph one: results Potassium [Moles/Vol] 3.9 mmol/L 3.5 - 5.1 [facility] mmol/L Work Phone: [phone] Sodium [Moles/Vol] 137 mmol/L 135 - 145 [facility] mmol/L Work Phone: [phone] Urea nitrogen (BldV) 21 mg/dL High 9 - 20 mg/dL [facility] [Mass/Vol] Work Phone: [phone] Test Performed by [facility], [address] [place]: [place] [address] [facility] Work Phone: [phone] CBC WITH AUTO DIFFERENTIAL Ordered By: Rodrigo Diamond on 08-23-2021 Absolute Baso # 0.0 10*3/uL 0.0 - 0.2 [facility] 10*3/uL Work Phone: [phone] Absolute Neut # 4.5 10*3/uL 1.8 - 7.0 [facility] 10*3/uL Work Phone: [phone] Basophils/100 WBC (Bld) 0.6 % 0.0 - 2.0 % [facility] Work Phone: [phone] Eosinophils (Bld) 0.0 10*3/uL 0.0 - 0.5 [facility] [#/Vol] 10*3/uL Work Phone: [phone] Eosinophils/100 WBC 0.4 % Low 1.0 - 6.0 % [facility] (Bld) Work Phone: [phone] Granulocytes/100 WBC 59.9 % 40.0 - 80.0 % [facility] (Bld) Work Phone: [phone] Hematocrit (Bld) 35.8 % 35.0 - 47.0 % [facility] [Volume fraction] Work Phone : Hemoglobin.gastrointest 12.0 g/dL 11.7 - 16.0 g/dL [facility] inal spec 1 Ql (Stl) Work Ph one: Interpretation and Abnormal [facility] review of laboratory Work Ph one: results Lymphocytes (Bld) 1.8 10*3/uL 1.0 - 4.3 [facility] [#/Vol] 10*3/uL Work Phone: [phone] Lymphocytes/100 WBC 24.1 % 20.0 - 40.0 % [facility] (Bld) Work Phone: [phone] MCH (RBC) [Entitic 30.6 pg 26.0 - 34.0 pg [facility] mass] Work Phone: [phone] MCHC (RBC) [Mass/Vol] 33.7 % 32.0 - 36.0 % [facility] Work Phone: [phone] MCV (RBC) [Entitic vol] 91.0 fL 79.0 - 98.0 fL [facility] Work Phone: [phone] Monocytes (Bld) [#/Vol] 1.1 10*3/uL High 0.0 - 0.8 [facility] 10*3/uL Work Phone: [phone] Monocytes/100 WBC (Bld) 15.0 % High 2.0 - 10.0 % [facility] Work Phone: [phone] Platelet distribution 14.6 % High 11.5 - 14.5 % [facility] width (Bld) [Ratio] Work Adolfo ne: Platelet mean volume 8.4 fL 7.4 - 10.4 fL [facility] (Bld) [Entitic vol] Work Adolfo ne: Platelets (Bld) [#/Vol] 301 10*3/uL 140 - 440 [facility] 10*3/uL Work Phone: RBC (Bld) [#/Vol] 3.93 10*6/uL 3.80 - 5.20 [facility] 10*6/uL Work Phone: WBC (Bld) [#/Vol] 7.5 10*3/uL 3.6 - 10.7 [facility] 10*3/uL Work Phone: Test Performed by 1-4 All Work Phone: System, [address] [place] [address] [employer] Work Phone: CR Chest Portable on 08-23-2021 CR Chest Portable Patient Name: EVER MCKEON [facility] Diagnostic Radiology ACCESSION EXAM DATE/TIME PROCEDURE ORDERING PROVIDER [phone] 08/23/2021 21:28 EDT CR Chest Portable SANDRA CAVAZOS CHARLES G CPT code 25318 Reason For Exam (CR Chest Portable) sob Report CLINICAL INFORMATION: Shortness of breath. Portable view of the chest at 2135 hours is provided a nd compared with a previous study dated 05/15/2020. FINDINGS: The cardiac silhouette and mediastinum are w ithin normal limits. A subtle coarse infiltrate has developed in th e periphery the right upper lobe. The left lung remains clear. IMPRESSION: 1. Subtle coarse infiltrate in the periphery the right upper lobe. This is nonspecific. Follow-up studies are recommended until clear. Report Dictated on Final Dictated: 08/23/2021 9:36 pm Dictating Physician: MD LEROY JEFFREY Signed Date and Time: 08/23/2021 9:38 pm Signed by: MD LEROY JEFFREY Transcribed Date and Time: 08/23/2021 9:36 Hemogram w/ Autodiff on 08-23-2021 Abs Baso Cnt 0.0 10*3/uL Normal 0.0-0.2 [facility] stem Comment on above: Performed By: #### BMP3, HEM DF, TROPN #### [address] [place] [address] Abs Neutrophile Cnt 4.5 10*3/uL Normal 1.8-7.0 [facility] Comment on above: Performed By: #### BMP3, HEM DF, TROPN #### [address] [place] [address] Basophils/100 WBC (Bld) 0.6 % Normal 0.0-2.0 [facility] Comment on above: Performed By: #### BMP3, HEM DF, TROPN #### [address] [address] Eosinophils (Bld) [#/Vol] 0.0 10*3/uL Normal 0.0-0.5 [facility] Comment on above: Performed By: #### BMP3, HEM DF, TROPN #### [address] [address] Eosinophils/100 WBC (Bld) 0.4 % Low 1.0-6.0 [facility] Comment on above: Performed By: #### BMP3, HEM DF, TROPN #### [address] [address] Erythrocyte distribution width (RBC) 14.6 % High 11.5 -14.5 [facility] [Ratio] Comment on above: Performed By: #### BMP3, HEM DF, TROPN #### [address] [address] Granulocytes/100 WBC (Bld) 59.9 % Normal 40.0-80.0 S [facility] Comment on above: Performed By: #### BMP3, HEM DF, TROPN #### [address] [address] Hematocrit (Bld) [Volume fraction] 35.8 % Normal 35.0-4 7.0 [facility] Comment on above: Performed By: #### BMP3, HEM DF, TROPN #### [address] [place] [address] Hemoglobin (Bld) [Mass/Vol] 12.0 g/dL Normal 11.7-16.0 [facility] Comment on above: Performed By: #### BMP3, HEM DF, TROPN #### [address] [place] [address] Lymphocytes (Bld) [#/Vol] 1.8 10*3/uL Normal 1.0-4.3 [facility] Comment on above: Performed By: #### BMP3, HEM DF, TROPN #### [address] [address] [place] [address] Lymphocytes/100 WBC (Bld) 24.1 % Normal 20.0-40.0 [facility] Comment on above: Performed By: #### BMP3, HEM DF, TROPN #### [address] [address] MCH (RBC) [Entitic mass] 30.6 pg Normal 26.0-34.0 [facility] Comment on above: Performed By: #### BMP3, HEM DF, TROPN #### [address] [address] [place] [address] MCHC 33.7 % Normal 32.0-36.0 [facility] stem Comment on above: Performed By: #### BMP3, HEM DF, TROPN #### [address] [place] [address] MCV (RBC) [Entitic vol] 91.0 fL Normal 79.0-98.0 [facility] Comment on above: Performed By: #### BMP3, HEM DF, TROPN #### [address] [place] [address] Monocytes (Bld) [#/Vol] 1.1 10*3/uL High 0.0-0.8 [facility] Comment on above: Performed By: #### BMP3, HEM DF, TROPN #### [address] [address] Monocytes/100 WBC (Bld) 15.0 % High 2.0-10.0 [facility] Comment on above: Performed By: #### BMP3, HEM DF, TROPN #### [address] [address] [place] [address] Platelet mean volume (Bld) [Entitic vol] 8.4 fL Normal 7.4-10.4 [facility] Comment on above: Performed By: #### BMP3, HEM DF, TROPN #### [address] [address] Platelets (Bld) [#/Vol] 301 10*3/uL Normal 140-440 [facility] Comment on above: Performed By: #### BMP3, HEM DF, TROPN #### [address] [address] RBC (Bld) [#/Vol] 3.93 10*6/uL Normal 3.80-5.20 [facility] Comment on above: Performed By: #### BMP3, HEM DF, TROPN #### [address] [address] WBC (Bld) [#/Vol] 7.5 10*3/uL Normal 3.6-10.7 [facility] Comment on above: Performed By: #### BMP3, HEM DF, TROPN #### [address] [address] Troponin Ordered By: Rodrigo Diamond on Troponin I.cardiac [Mass/Vol] ng/mL 0.000 - 0.0 34 ng/mL [facility] Work Phone: Comment on above: . Test Performed by [facility], [address] [place] [address] Work Phone: [facility] Work Phone: Troponin I on 08-23-2021 Troponin I.cardiac [Mass/Vol] ng/mL Normal 0.000-0.034 [facility] Comment on above: Result Comment: . Performed By: #### BMP3, HEM DF, TROPN #### [facility] [address] [place] [address] XR CHEST PORTABLE Ordered By: Rodrigo zamudio on 08-23-2021 Patient Name: EVER MCKEON [id number] Diagnostic Radiology ACCESSION EXAM Work Phone: DATE/TIME PROCEDURE ORDERING PROVIDER [phone] 08/23/2021 21:28 EDT CR Chest Portable SANDRA DIAMOND CHARLES G CPT code 18276 Reason For Exam (CR Chest Portable) sob Report CLINICAL INFORMATION: Shortness of breath. Portable view of the chest at 2135 hours is provided and compared with a previous study dated 05/15/2020. FINDINGS: The cardiac silhouette and mediastinum are within normal limits. A subtle coarse infiltrate has developed in the periphery the right upper lobe. The left lung remains clear. IMPRESSION: 1. Subtle coarse infiltrate in the periphery the right upper lobe. This is nonspecific. Follow-up studies are recommended until clear. Report Dictated on --- Final --- Dictated: 08/23/2021 9:36 pm Dictating Physician: MD LEROY JEFFREY Signed Date and Time: 08/23/2021 9:38 pm Signed by: MD LREOY JEFFREY Transcribed Date and Time: 08/23/2021 9:36 Ricky, [facility] Incoming Radiolog y Results From [facility] - 08/23/2021 9:39 PM EDT [facility] Patient Name: EVER MCKEON Work Phone: Diagnostic Radiology ACCESSION EXAM DATE/TIME PROCEDURE ORDERING PROVIDER [phone] 08/23/2021 21:28 EDT CR Chest Portable SANDRA CAVAZOS CHARLES G CPT code 87765 Reason For Exam (CR Chest Portable) sob Report CLINICAL INFORMATION: Shortness of breath. Portable view of the chest at 2135 hours is provided a nd compared with a previous study dated 05/15/2020. FINDINGS: The cardiac silhouette and mediastinum are w ithin normal limits. A subtle coarse infiltrate has developed in th e periphery the right upper lobe. The left lung remains clear. IMPRESSION: 1. Subtle coarse infiltrate in the periphery the right upper lobe. This is nonspecific. Follow-up studies are recommended until clear. Report Dictated on --- Final --- Dictated: 08/23/2021 9:36 pm Dictating Physician: MD LEROY JEFFREY Signed Date and Time: 08/23/2021 9:38 pm Signed by: MD LEROY JEFFREY Transcribed Date and Time: 08/23/2021 9:36 [facility] Work Phone: MRI ABDOMEN WO CONTRAST on 08-08-2020 Patient Name: EVER MCKEON FIN: [place], [place] [id number] ---MRI--- Exam Date/Time 08/08/2020 12:11 :55 EDT Exam MRI Abdomen w/o Contrast Ordering Physician ROLAND DENISE MAUREEN CLAIRE Accession Number [id number] CPT4 Codes 48736 () Reason For Exam bili akbar obstruction Report MRI OF THE ABDOMEN WITH MRCP: CLINI SHANNA INDICATION: Elevated liver function tests, biliary obstruction. TECHNIQUE: Transaxial and coronal T1 and T2 breath hold along with transaxial and coronal gradient echo sequences were performed through the abdomen. Thi ck section multi-angle and thin section multi-slice MRCP sequences were performed through the abdomen as well. Maximum intensity projection 3-D images were created w ith the latter data set on an independent workstation. COMPARISON: 05/19/2020 FINDINGS: Gallbladder: Surgicall y absent. A cystic duct stump is present. Biliary tree: No intrahepatic biliary dilation. Borderline extrahepatic biliary dilation. Common hepatic duct luminal caliber: 0.6 cm. Common bile duct luminal caliber: 0.7 cm. No filli ng defects identified. Normal tapered configuration of th e distal end of the common bile duct. Pancreatic duct: Normal caliber. Liver: Normal size. Nodular contours a nd heterogeneity related to cirrhosis. No focal lesion. Pancreas: No mass or peripancreatic fluid identified. Spleen: Enlarged measuring 16.5 cm in craniocaudal diameter. Adrenals:Normal Kidneys: No contour abnormal ity or hydronephrosis. Small left renal cyst. Vasculature: Normal caliber aorta. Prominent perisplenic varices an d varices in the anterior abdomen. Visualized Osseous structures: Unremarkable. Other: Moderate hiatal herni a. Small right pleural effusion. IMPRESSION: 1. Mild extrahepatic biliary dilation likely due to prior cholecystectomy. No choledocholithiasis or definite pancreatic/periampullary mass. No pancreatic duct dila tion to suggest an occult mass, but correlate with liver function tests and if there is concern for an occult biliary obstructive process, ERCP could be obtained. 2 . Cirrhotic appearing liver. Findings of portal hyperten garrett including splenomegaly and varices. 3. Small right ple ural effusion. 4. Moderate hiatal hernia. Report Dictated o n --- Final --- Dictated: 08/08/2020 2:43 pm Dictating Physician: MD CULVER NICHOLAS Signed Date and Time: 08/08/2020 3:01 pm Sign ed by: MD CULVER NICHOLAS Transcribed Date and Time: 08/08/2020 2:57 Ricky, [facility] Incoming Radiology Results From Radnet - 3:02 PM EDT [place], [place] Patient Name: EVER MCKEON ---MRI--- Exam Date/Time 08/08/2020 12:11:55 EDT Exam MRI Abdomen w/o Contrast Ordering Physician ROLAND DENISE MAUREEN CLAIRE Accession Number [id number] CPT4 Codes 57022 () Reason For Exam biliary obstruction Report MRI OF THE ABDOMEN WITH MRCP: CLINICAL INDICATION: Elevated liver function tests, bi liary obstruction. TECHNIQUE: Transaxial and coronal T1 and T2 breath hol d along with transaxial and coronal gradient echo sequences were pe rformed through the abdomen. Thick section multi-angle and thin sectio n multi-slice MRCP sequences were performed through the abdomen as w ell. Maximum intensity projection 3-D images were created with the latter data set on an independent workstation. COMPARISON: 05/19/2020 FINDINGS: Gallbladder: Surgically absent. A cystic duct stump is present. Biliary tree: No intrahepatic biliary dilation. Border line extrahepatic biliary dilation. Common hepatic duct lum inal caliber:0.6 cm. Common bile duct luminal caliber: 0.7 cm. No filli ng defects identified. Normal tapered configuration of the distal end of the common bile duct. Pancreatic duct: Normal caliber. Liver: Normal size. Nodular contours and heterogeneity related to cirrhosis. No focal lesion. Pancreas: No mass or peripancreatic fluid identified. Spleen: Enlarged measuring 16.5 cm in craniocaudal jimmie meter. Adrenals:Normal Kidneys: No contour abnormality or hydronephrosis. Sma ll left renal cyst. Vasculature: Normal caliber aorta. Prominent perisplen ic varices and varices in the anterior abdomen. Visualized Osseous structures: Unremarkable. Other: Moderate hiatal hernia. Small right pleural eff usion. IMPRESSION: 1. Mild extrahepatic biliary dilation likely due to pr ior cholecystectomy. No choledocholithiasis or definite pancreatic/periampullary mass. No pancreatic duct dila tion to suggest an occult mass, but correlate with liver function test s and if there is concern for an occult biliary obstructive process, ERCP could be obtained. 2. Cirrhotic appearing liver. Findings of portal hyper tension including splenomegaly and varices. 3. Small right pleural effusion. 4. Moderate hiatal hernia. Report Dictated on --- Final --- Dictated: 08/08/2020 2:43 pm Dictating Physician: MD CULVER NICHOLAS Signed Date and Time: 08/08/2020 3:01 pm Signed by: MD CULVER NICHOLAS Transcribed Date and Time: 08/08/2020 2:57 Basic Metabolic Panel w/ Reflex to MG o n 05-22-2020 Anion gap [Moles/Vol] 7 mmol/L [place], [place] Calcium [Mass/Vol] 8.2 mg/dL Low 8.4 - 10.4 mg/dL [place], [place] Chloride [Moles/Vol] 100 mmol/L 98 - 107 mmol/L [place], [place] CO2 [Moles/Vol] 24 mmol/L 22 - 30 mmol/L [place], [place] Creatinine [Mass/Vol] 0.48 mg/dL Low 0.52 - 1.25 mg/dL [place], [place] EGFR IF NonAfrican Chinese >90.0 >60 mL/min [place], [place] Comment on above: KDIGO guidelines provide the following GFR categories: Stage GFR(ml/min/1.73 m2) [place] G1 >=90 Normal or high G2 60-89 Mildly decreased* G3a 45-59 Mildly to moderate ly decreased G3b 30-44 Moderately to haris rely decreased G4 15-29 Severely decreased G5 <15 Kidney failure *Relative to young adult meron ha. In the absence of evidence o f kidney damage, neither GFR category G1 nor G2 fulfill t criteria for CKD. The CKD-EPI equation is rajesh dated in individuals 18 years of age and older. Currently the best equation for estimating glomerular filtra tion rate (GFR) from serum creatinine in children is [facility] Bedside Kumar equation. It is less accurate in patie nts with extremes of muscle mass, restriction of dietary protein, ingestion of creatine, extra-renal metabolism of cr eatinine, or treatment with medications that affect sofía l tubular creatinine secretion. GFR/1.73 sq M predicted mL/min/{1.73_m2} >60 mL/min [facility]- among blacks MDRD [place] (S/P/Bld) [Vol rate/Area] Glucose [Mass/Vol] 74 mg/dL 70 - 100 mg/dL [place], [place] Interpretation and Abnormal [facility]- review of laboratory [place], [place] results Potassium [Moles/Vol] 3.6 mmol/L 3.5 - 5.1 [facility]- mmol/L [place], [place] Sodium [Moles/Vol] 132 mmol/L Low 135 - 145 [facility]- mmol/L [place] Urea nitrogen [Mass/Vol] 9 mg/dL 7 - 20 mg/dL [place], [place] Test Performed by [facility], [address] [place] [address] CBC Auto Differential on 05-22-2020 Absolute Baso # 0.1 10*3/uL 0 - 0.2 10*3/uL [place], [place] Absolute Neut # 4.2 10*3/uL 1.8 - 7 10*3/uL [place], [place] Basophils/100 WBC (Bld) 1.1 % 0 - 2 % [facility], [place] Eosinophils (Bld) [#/Vol] 0.2 10*3/uL 0 - 0.5 10*3/uL [facility], [place] Eosinophils/100 WBC (Bld) 1.9 % 1 - 6 % [facility], [place] Erythrocyte distribution 15.6 % High 11.5 - 14.5 % [facility], width (RBC) [Ratio] [place] Granulocytes/100 WBC 53.8 % 40 - 80 % [facility], (Bld) [place] Hematocrit (Bld) [Volume 30.8 % Low 35 - 47 % [facility], fraction] [place] Hemoglobin (Bld) 10.4 g/dL Low 11.7 - 16 g/dL [facility], [Mass/Vol] [place] Interpretation and review Abnormal [facility], of laboratory results [place] Lymphocytes (Bld) [#/Vol] 2.1 10*3/uL 1 - 4.3 10*3/uL [facility], [place] Lymphocytes/100 WBC (Bld) 26.7 % 20 - 40 % [facility], [place] MCH (RBC) [Entitic mass] 30.4 pg 26 - 34 pg [facility], [place] MCHC (RBC) [Mass/Vol] 33.7 % 32 - 36 % [facility], [place] MCV (RBC) [Entitic vol] 90.1 fL 79 - 98 fL [facility], [place] Monocytes (Bld) [#/Vol] 1.3 10*3/uL High 0 - 0.8 10*3/uL [facility], [place] Monocytes/100 WBC (Bld) 16.5 % High 2 - 10 % [facility], [place] Platelet mean volume 7.4 fL 7.4 - 10.4 fL [facility], (Bld) [Entitic vol] [place] Platelets (Bld) [#/Vol] 174 10*3/uL 140 - 440 10*3/uL [facility], [place] RBC (Bld) [#/Vol] 3.42 10*6/uL Low 3.8 - 5.2 10*6/uL [place], [place] WBC (Bld) [#/Vol] 7.8 10*3/uL 3.6 - 10.7 10*3/uL [place] Test Performed by [facility], [facility], [place] [address] [place] [address] Cytology, non gyne on 05-22-2020 Cytology report Cyto SEE BELOW [place], [place] stain.thin prep Doc (Cvx/Vag) 1 [facility] [id number] [place] DEPARTMENT OF PATHOLOGY AND [facility] LABORATORY MEDICINE [address] [place] [address] FINAL MEDICAL CYTOLOGY REPORT ____ NAME: EVER MCKEON Kiel : 1970 49 Y F BILLING NO.: [id number] LOCATION: [address] [place] [address] PROCEDURE 05/20/2020 A DATE: PHYSICIAN: LUZ MARIA GARCIA MD RECEIVED DATE: 05/21/2020 ATTENDING: WINSTON FLANNERY DO REPORT DATE: 05/22/2020 COPIES TO: SOCO WISE MD; DANIELLA PATTEN DO ____ CLINICAL DATA: DIAGNOSIS NO MALIGNANT CELLS IDENTIFIED. SPECIMEN: ASCITES FLUID PROCEDURE(S): FLUID COLLECTION GROSS DESCRIPTION: 12 ml, yellow fluid, w/o cytolyt Materials Prepared & Examined: Cell Blocks . . . . . . . . . . . . 1 Monolayers . . . . . . . . . . . . 1 JJ1 Screened by JARRED H DEEKEN, M.D. The following statement applies to all immunohistochemistry, in situ hybridization, molecular studies, and immunofluorescence testing. The use of one or more reagents in the above tests is regulated as an analyte specific reagent (ASR). These tests were developed and their performance characteristics determined by the clinical laboratories of [facility]. They have not been cleared by the US Food and Drug Administration (FDA). The FDA has determined that such clearance or approval is not necessary. All the above immunostains were performed on paraffin embedded tissue. Appropriate positive and negative controls (where applicable) were run in parallel with the patient's specimen; these controls showed expected staining pattern, with acceptable intensity of staining. Immunohistochemical assays have not been validated on decalcified tissues. Results should be interpreted with caution given the raised possibility of false negativity on decalcified specimens. Case reviewed at [place] [address] [place] [address]. 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: 1970 Requested By: Sergio RAZA Order Number: [id number] Reading MD: Cinthya Li Measurements Intervals [place] Rate: 84 P: 76 GA: 170 QRS: 48 QRSD: 100 T: -20 QT: 460 QTc: 544 Interpretive Statements Sinus rhythm Borderline T abnormalities, inferior leads Prolonged QT interval Compared to ECG 05/20/2020 12:22:13 No significant changes Electronically Signed On 05-22-2020 7:04:27 EDT by Trista sal johnson [facility] Test Date: 2020-05-21 [facility]: [facility] Room: 1539 Gen jose: F 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 Test [facility], [address] [place] [address] US PARACENTESIS INITIAL on 05-22-2020 Ricky, [facility] Incoming Radiology Results From Radnet - 1:45 PM EDT [place], [place] Patient Name: EVER MCKEON ---Ultrasound--- Exam Date/Time 05/20/2020 16:23:27 EDT Exam US Paracentesis Initial Ordering Physician MD RADHA, [facility] Accession Number [id number] CPT4 Codes 47105 () Reason For Exam perihepatic fluid collection Report ULTRASOUND GUIDED PARACENTESIS: Indication: Ascites. Procedure: Following discussion with the patient regar ding risks, benefits and alternatives, the skin was sterilely prep ared and local anesthesia was applied. Ultrasound shows small perihep atic fluid collection with internal septations, suggesting locula tions. A Yueh catheter was advanced under ultrasound guidance into t he peritoneal cavity within the right mid abdomen near the axillary line. A total of 10 mL of clear yellow fluid was aspirated. Ascitic fluid was sent for Gram stain and culture. The patient tolerated proc edure well. IMPRESSION: Technically successful ultrasound-guided needle parace ntesis of loculated perihepatic fluid. A percutaneous drainage c atheter would likely not be helpful given loculated fluid. Report Dictated on --- Final --- Dictated: 05/22/2020 1:41 pm Dictating Physician: SAW KHAN DO, I Signed Date and Time: 05/22/2020 1:43 pm Signed by: SAW KHAN DO, I Transcribed Date and Time: 05/22/2020 1:41 Patient Name: EVER MCKEON FIN: [place], [place] [id number] ---Ultrasound--- Exam Date/Time 0 16:23:27 EDT Exam US Paracentesis Initial Ordering Physician MD RADHA, [facility] Accession Number [id number] CPT4 Codes 28390 () Reason For Exam perihepatic fluid collection Report ULTRASOUND GUIDED PARACENTESIS: Indication: Ascites. Procedure: Followin g discussion with the patient regarding risks, benefits and alternatives, the skin was sterilely prepared and loca l anesthesia was applied. Ultrasound shows small perihep atic fluid collection with internal septations, suggesting loculations. A Graduway catheter was advanced under ultras ound guidance into the peritoneal cavity within the right m id abdomen near the axillary line. A total of 10 mL of cl ear yellow fluid was aspirated. Ascitic fluid was sent for Gram stain and culture. The patient tolerated procedur e well. IMPRESSION: Technically successful ultrasound-gu ided needle paracentesis of loculated perihepatic fluid. A percutaneous drainage catheter would likely not be hel pful given loculated fluid. Report Dictated on --- Final --- Dictated: 05/22/2020 1:41 pm Dictating Physician: SAW KHAN DO, I Signed Date and Time: 05/22/2020 1:43 pm Signed by: ISSAC KHAN DO, I Transcribed Date and Time: 05/22/2020 1:41 Add On Lab Test on 05-21-2020 Sodium [Moles/Vol] Accepted [place], [place] Comment on above: Specimen available & accepta ble for analysis. Test Performed by [employer] [facility], [facility] [address] [place] [address] Albumin, Fluid on 05-21-2020 Albumin, Fluid 1.5 g/dL No Range [place], [place] Basic Metabolic Panel w/ Reflex to MG on 05-21-2020 Anion gap [Moles/Vol] 7 mmol/L [place], [place] Calcium [Mass/Vol] 8.2 mg/dL Low 8.4 - 10.4 mg/dL [place], [place] Chloride [Moles/Vol] 101 mmol/L 98 - 107 mmol/L [place], [place] CO2 [Moles/Vol] 25 mmol/L 22 - 30 mmol/L [facility], [place] Creatinine [Mass/Vol] 0.47 mg/dL Low 0.52 - 1.25 mg/dL [place], [place] EGFR IF NonAfrican Chinese >90.0 >60 mL/min [place], [place] Comment on above: KDIGO guidelines provide the following GFR categories: Stage GFR(ml/min/1.73 m2) [place] G1 >=90 Normal or high G2 60-89 Mildly decreased* G3a 45-59 Mildly to moderate ly decreased G3b 30-44 Moderately to haris rely decreased G4 15-29 Severely decreased G5 <15 Kidney failure *Relative to young adult meron el. In the absence of evidence o f kidney damage, neither GFR category G1 nor G2 fulfill t he criteria for CKD. The CKD-EPI equation is rajesh dated in individuals 18 years of age and older. Currently the best equation for estimating glomerular filtra tion rate (GFR) from serum creatinine in children is [facility] Bedside Kumar equation. It is less accurate in patie nts with extremes of muscle mass, restriction of dietary protein, ingestion of creatine, extra-renal metabolism of cr eatinine, or treatment with medications that affect sofía l tubular creatinine secretion. GFR/1.73 sq M predicted mL/min/{1.73_m2} >60 mL/min [facility]- among blacks MDRD [place], [place] (S/P/Bld) [Vol rate/Area] Glucose [Mass/Vol] 79 mg/dL 70 - 100 mg/dL [place], [place] Interpretation and Abnormal [facility]- review of laboratory [place], [place] results Potassium [Moles/Vol] 3.4 mmol/L Low 3.5 - 5.1 [facility]- mmol/L [place], [place] Sodium [Moles/Vol] 133 mmol/L Low 135 - 145 [facility]- mmol/L [place] Urea nitrogen [Mass/Vol] 8 mg/dL 7 - 20 mg/dL [place], [place] Test Performed by [facility], [address] [place] [address] Body Fluid Cell Count with Differential on 05-21-2020 Nucl Cell, Fluid 269 {cells}/uL [place], [place] Comment on above: clumped cells founded, inter pret with caution RED BLOOD CELLS, BODY FLUID 620 {RBC}/uL [place], [place] Sodium [Moles/Vol] Ascites [place], [place] Test Performed by [facility], [place] System, [facility] [place] [address] CBC Auto Differential on 05-21-2020 Erythrocyte distribution 15.6 % High 11.5 - 14.5 % [place], [place] width (RBC) [Ratio] Hematocrit (Bld) [Volume 31.1 % Low 35 - 47 % [place], [place] fraction] Hemoglobin (Bld) [Mass/Vol] 10.6 g/dL Low 11.7 - 16 g/d L [place], [place] Interpretation and review of Abnormal [place], [place] laboratory results MCH (RBC) [Entitic mass] 30.5 pg 26 - 34 pg [place], [place] MCHC (RBC) [Mass/Vol] 34.3 % 32 - 36 % [place], [place] MCV (RBC) [Entitic vol] 88.9 fL 79 - 98 fL [place], [place] Platelet mean volume (Bld) 7.3 fL Low 7.4 - 10.4 fL [place], [place] [Entitic vol] Platelets (Bld) [#/Vol] 177 10*3/uL 140 - 440 10*3/uL [place], [place] RBC (Bld) [#/Vol] 3.49 10*6/uL Low 3.8 - 5.2 10*6/uL [place], [place] WBC (Bld) [#/Vol] 8.2 10*3/uL 3.6 - 10.7 10*3/uL [place], [place] Culture, Anaerobic on 05-21-2020 Anaerobic Culture No growth of anaerobes at 5 days. [place], [place] Test Performed by [facility], [address] [place], [place] [address] Differential, Body Fluid on 05-21-2020 Eosinophils/100 WBC (Bld) 3 % [place], [place] Lymphocytes/100 WBC (Bld) 10 % Me [facility], [place] Macrophage count 1 % [facility], [place] Monocytes/100 WBC (Bld) 5 % [facility], [place] Neutrophils/100 WBC (Bld) 81 % Me [facility], [place] Sodium [Moles/Vol] 100 mmol/L [facility], [place] EKG 12 Lead on 05-21-2020 [facility] Test Date: 2020-05-20 Pat Name: [facility] MONICA Mckeon Department: 1A5W Room: [address] [place] [address] 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 : 1970 Requested By: LUZ MARIA GARCIA Order Number: [id number] Reading MD: Lela Grajeda Measurements Intervals [place] Rate: 82 P: 52 GA: 181 QRS: 42 QRSD: 83 T: -15 QT: 443 QTc: 518 Interpretive Statements Sinus rhythm Low voltage, precordial leads Borderline T abnormalities, diffuse leads Prolonged QT interval Electronically Signed On 05-21-2020 17:07:18 EDT by Ector Grajeda Glucose, Body Fluid on 05-21-2020 Glucose, Body Fluid 25 mg/dL No Range [facility], [place] Sodium [Moles/Vol] Acites [facility], [place] Test Performed by [facility], [place] System, [address] [place] [address] Gram stain on 05-21-2020 INR Coag (Bld) [Relative Many polymorphonuclear cells/lpf. [place], [place] time] No organisms seen. Cytocentrifugation performed. Microscopic observation and enumeration of white blood cells should be confirmed b Cell Count with Differential. Test Performed by [facility], [place] System, [address] [place] [address] Specimen Source Comment:Ascitic Fluid Hepatic Function Panel on 05-21-2020 Albumin [Mass/Vol] 2.5 g/dL Low 3.5 - 5 g/dL [place], [place] ALP [Catalytic activity/Vol] 124 U/L 38 - 126 U/L [place], [place] ALT [Catalytic activity/Vol] 12 U/L 0 - 34 U/L [place], [place] Comment on above: The ALT test is performed by an updated assay method. Please note that the referen ce intervals have been changed and are now sex spec ific. AST [Catalytic 45 U/L 15 - 46 U/L [facility], activity/Vol] [place] Bilirubin Ql (U) 1.0 mg/dL 0.2 - 1.3 mg/dL [place], [place] Bilirubin.direct [Mass/Vol] 0.0 mg/dL 0 - 0.3 mg/dL [place], [place] Interpretation and review Abnormal [facility], of laboratory results [place] Protein [Mass/Vol] 6.3 g/dL 6.3 - 8.2 g/dL [place], [place] Test Performed by [facility], [place], [place] [address] [place] [address] Lactate Dehydrogenase, Body Fluid on LD, Fluid 992 U/L No Range [place], [place] Magnesium on 05-21-2020 Magnesium [Mass/Vol] 2.1 mg/dL 1.6 - 2.3 mg/dL [place] Test Performed by [place] [facility], [address] [place] [address] Manual Differential on 05-21-2020 Absolute Baso # 0.1 10*3/uL 0 - 0.2 10*3/uL [facility] [place] [place] Absolute Eos # 0.1 10*3/uL 0 - 0.5 10*3/uL [facility] [place] Absolute Lymph # 0.9 10*3/uL Low 1.1 - 4.5 10*3/uL [facility] [place] Absolute [place] # 0.5 10*3/uL 0.2 - 1.1 10*3/uL [facility] [place] Absolute Neut # 6.5 10*3/uL 2.2 - 8.2 10*3/uL [facility] [place] Atypical Lymphocytes 1 % Abnormal <1 [facility] [place] Bands 4 % High 0 - 3 % [facility] [place] Basophils 1 % 0 - 2 % [facility] [place] Eosinophils 1 % 1 - 6 % [facility] [place] Interpretation and Abnormal [facility]- review of laboratory [place] results Lymphocytes 11 % Low 20 - 40 % [facility] [place] Monocytes 6 % 2 - 10 % [facility] [place] Myelocytes 1 % Abnormal <1 [facility] [place] Ovalocytes Slight [facility] [place] Poikilocytes Slight [facility] [place] Polychromasia Slight [facility] [place] RBC morphology finding ABNORMAL [facility]- Nom (Bld) [place] Seg Neutrophils 75 % 40 - 80 % [facility] [place] Stomatocytes Slight [facility] [place] TOTAL CELLS COUNTED 100 [facility] Toxic Granulation Slight [facility] [place] TOXIC VACUOLES Slight [facility] Test Performed by [facility] [place] System, [address] [place] [address] Other on 05-21-2020 Test Performed by [employer], [address] [facility], [place] [address] Test Performed by [employer] [facility], [address] [facility] [place], [place] [address] Total Protein, Fluid on 05-21-2020 Protein, body fluid 4.0 g/dL No Range [place], [place] Troponin on 05-21-2020 Troponin I.cardiac [Mass/Vol] ng/mL 0 - 0.034 n g/mL [place], [place] Comment on above: . Test Performed by [facility] [facility], [address] [facility], [place] [address] Add On Lab Test on 05-20-2020 Sodium [Moles/Vol] Accepted [place], [place] Comment on above: Specimen available & accepta ble for analysis. Test Performed by [facility], [address] [facility], [place] [address] Basic Metabolic Panel w/ Reflex to MG o n 05-20-2020 Anion gap [Moles/Vol] 8 mmol/L [place], [place] Calcium [Mass/Vol] 8.5 mg/dL 8.4 - 10.4 mg/dL [place], [place] Chloride [Moles/Vol] 100 mmol/L 98 - 107 mmol/L [place], [place] CO2 [Moles/Vol] 26 mmol/L 22 - 30 mmol/L [place], [place] Creatinine [Mass/Vol] 0.5 mg/dL Low 0.52 - 1.25 mg/dL [place], [place] EGFR IF NonAfrican Chinese >90.0 >60 mL/min [place], [place] Comment on above: KDIGO guidelines provide the following GFR categories: Stage GFR(ml/min/1.73 m2) [place] G1 >=90 Normal or high G2 60-89 Mildly decreased* G3a 45-59 Mildly to moderate ly decreased G3b 30-44 Moderately to haris rely decreased G4 15-29 Severely decreased G5 <15 Kidney failure *Relative to young adult lev el. In the absence of evidence o f kidney damage, neither GFR category G1 nor G2 fulfill [facility] criteria for CKD. The CKD-EPI equation is rajesh dated in individuals 18 years of age and older. Currently the best equation for estimating glomerular filtra tion rate (GFR) from serum creatinine in children is e Bedside Kumar equation. It is less accurate in patie nts with extremes of muscle mass, restriction of dietary protein, ingestion of creatine, extra-renal metabolism of cr eatinine, or treatment with medications that affect sofía l tubular creatinine secretion. GFR/1.73 sq M predicted mL/min/{1.73_m2} >60 mL/min [facility]- among blacks [place]D [place] (S/P/Bld) [Vol rate/Area] Glucose [Mass/Vol] 75 mg/dL 70 - 100 mg/dL [place], [place] Interpretation and Abnormal [facility]- review of laboratory [place], [place] results Potassium [Moles/Vol] 3.2 mmol/L Low 3.5 - 5.1 [facility]- mmol/L [place] Sodium [Moles/Vol] 133 mmol/L Low 135 - 145 [facility]- mmol/L [place], [place] Urea nitrogen [Mass/Vol] 9 mg/dL 7 - 20 mg/dL [facility], [place] Test Performed by [facility], [address], [place] [address] CBC Auto Differential on 05-20-2020 Absolute Baso # 0.0 10*3/uL 0 - 0.2 10*3/uL [facility], [place] Absolute Neut # 5.6 10*3/uL 1.8 - 7 10*3/uL [facility], [place] Basophils/100 WBC (Bld) 0.4 % 0 - 2 % [facility], [place] Eosinophils (Bld) [#/Vol] 0.1 10*3/uL 0 - 0.5 10*3/uL [facility], [place] Eosinophils/100 WBC (Bld) 1.3 % 1 - 6 % [facility], [place] Erythrocyte distribution 15.3 % High 11.5 - 14.5 % [facility], width (RBC) [Ratio] [place] Granulocytes/100 WBC 66.5 % 40 - 80 % [facility], (Bld) [place] Hematocrit (Bld) [Volume 31.1 % Low 35 - 47 % [facility], fraction] [place] Hemoglobin (Bld) 10.6 g/dL Low 11.7 - 16 g/dL [facility], [Mass/Vol] [place] Interpretation and review Abnormal [facility], of laboratory results [place] Lymphocytes (Bld) [#/Vol] 1.3 10*3/uL 1 - 4.3 10*3/uL [place], [place] Lymphocytes/100 WBC (Bld) 15.4 % Low 20 - 40 % [place], [place] MCH (RBC) [Entitic mass] 30.5 pg 26 - 34 pg [place], [place] MCHC (RBC) [Mass/Vol] 34.2 % 32 - 36 % [place], [place] MCV (RBC) [Entitic vol] 89.2 fL 79 - 98 fL [place], [place] Monocytes (Bld) [#/Vol] 1.4 10*3/uL High 0 - 0.8 10*3/uL [place], [place] Monocytes/100 WBC (Bld) 16.4 % High 2 - 10 % [place], [place] Platelet mean volume 7.2 fL Low 7.4 - 10.4 fL [facility], (Bld) [Entitic vol] [place] Platelets (Bld) [#/Vol] 181 10*3/uL 140 - 440 10*3/uL [place], [place] RBC (Bld) [#/Vol] 3.48 10*6/uL Low 3.8 - 5.2 10*6/uL [place], [place] WBC (Bld) [#/Vol] 8.4 10*3/uL 3.6 - 10.7 10*3/uL [place] Test Performed by [facility], [place], [place] [address] [place] [address] Culture, Blood 1 on 05-20-2020 Blood Culture, Routine No growth at 5 days. [place], [place] Test Performed by [facility], [place] System, [address] [place] [address] Specimen Source Comment:Blood Culture, Blood 2 on 05-20-2020 Blood Culture, Routine No growth at 5 days. [place], [place] Test Performed by [facility], [place] System, [address] [place] [address] Specimen Source Comment:Blood Magnesium on 05-20-2020 Magnesium [Mass/Vol] 2.1 mg/dL 1.6 - 2.3 mg/dL [place], [place] Test Performed by [place], [place] [facility], [address] [place] [address] PROTIME INR on 05-20-2020 INR Coag (PPP) [Relative time] 1.7 {INR} High [place], [place] Comment on above: Recommended Anticoagulant Th erapy: SEE BELOW ----- INR of 2.0 - 3.0 : - Prophylaxis of Venous Thro mbosis (high-risk surgery) - Treatment of Venous Thromb osis - Treatment of Pulmonary Emb olism (Includes tissue heart valves, Acute Myocardial Inf arction to prevent systemic embolism, Valvular Heart Dis ease, and Atrial Fibrillation) ----- INR of 2.5 - 3.5 : - Mechanical Prosthetic Valv es (high risk) - If oral anticoagulant ther apy is used to prevent Myocardial Infarction Interpretation and review of laboratory Abnormal [place], [place] results PT Coag (PPP) [Time] 18.2 s High 9 - 12 s [place], [place] Comment on above: . Test Performed by [facility], [address] [place] [address] Procalcitonin on 05-20-2020 Interpretation and review of laboratory Abnormal [place], [place] results Procalcitonin 0.3 ng/mL Abnormal <0.10 [place], [place] Sodium [Moles/Vol] See Below [place], [place] Comment on above: PCT <0.50 = Low risk of haris re sepsis and/or septic shock. PCT >2.00 = High risk of sev ere sepsis and/or septic shock. Test Performed by [employer] [place] [address] VITAMIN D 25 HYDROXY on 05-20-2020 Interpretation and review of Abnormal [place], [place] laboratory results Vit D, 25-Hydroxy 14 ng/mL Low 30 - 100 ng/mL [place], [place] Comment on above: Therapy is based on measurem ent of Total 25-OHD with the following classification lev els: Less than 20 ng/mL: Indicati ve of Vit D deficiency 20-30 ng/mL: Suggests Vit D insufficiency Optimal: Greater than or equ al to 30 ng/mL Test performed by [employer], measuring Total Vitamin D, n ot individual fractions. Test Performed by [facility] [facility], [address], [facility], [place], [place] [address] Add On Lab Test on 05-19-2020 Sodium [Moles/Vol] Accepted [place], [place] Comment on above: Specimen available & accepta ble for analysis. Test Performed by [facility], [address] [facility], [place] [address] Ammonia on 05-19-2020 Ammonia (P) [Mass/Vol] 37 umol/L High 9 - 30 umol/L [place], [place] Interpretation and review Abnormal Me [facility], of laboratory results [place] Test Performed by [facility], [facility], [place] [address] [place] [address] Basic Metabolic Panel w/ Reflex to MG o n 05-19-2020 Anion gap [Moles/Vol] 8 mmol/L [place], [place] Calcium [Mass/Vol] 8.3 mg/dL Low 8.4 - 10.4 mg/dL [place], [place] Chloride [Moles/Vol] 100 mmol/L 98 - 107 mmol/L [place], [place] CO2 [Moles/Vol] 24 mmol/L 22 - 30 mmol/L [place], [place] Creatinine [Mass/Vol] 0.53 mg/dL 0.52 - 1.25 mg/dL [place], [place] EGFR IF NonAfrican Chinese >90.0 >60 mL/min [place], [place] Comment on above: KDIGO guidelines provide the following GFR categories: Stage GFR(ml/min/1.73 m2) [place] G1 >=90 Normal or high G2 60-89 Mildly decreased* G3a 45-59 Mildly to moderate ly decreased G3b 30-44 Moderately to haris rely decreased G4 15-29 Severely decreased G5 <15 Kidney failure *Relative to young adult meron el. In the absence of evidence o f kidney damage, neither GFR category G1 nor G2 fulfill t he criteria for CKD. The CKD-EPI equation is rajesh dated in individuals 18 years of age and older. Currently the best equation for estimating glomerular filtra tion rate (GFR) from serum creatinine in children is e Bedside Kumar equation. It is less accurate in patie nts with extremes of muscle mass, restriction of dietary protein, ingestion of creatine, extra-renal metabolism of cr eatinine, or treatment with medications that affect sofía l tubular creatinine secretion. GFR/1.73 sq M predicted mL/min/{1.73_m2} >60 mL/min [facility]- among blacks MDRD [place], [place] (S/P/Bld) [Vol rate/Area] Glucose [Mass/Vol] 91 mg/dL 70 - 100 mg/dL [place], [place] Interpretation and Abnormal [facility]- review of laboratory [place], [place] results Potassium [Moles/Vol] 3.5 mmol/L 3.5 - 5.1 [facility]- mmol/L [place], [place] Sodium [Moles/Vol] 131 mmol/L Low 135 - 145 [facility]- mmol/L [place], [place] Urea nitrogen [Mass/Vol] 9 mg/dL 7 - 20 mg/dL [place], [place] Test Performed by [facility], [address] [place], [place] [address] CBC Auto Differential on 05-19-2020 Absolute Baso # 0.0 10*3/uL 0 - 0.2 10*3/uL [place], [place] Absolute Neut # 7.0 10*3/uL 1.8 - 7 10*3/uL [place], [place] Basophils/100 WBC (Bld) 0.3 % 0 - 2 % [place], [place] Eosinophils (Bld) [#/Vol] 0.1 10*3/uL 0 - 0.5 10*3/uL [place], [place] Eosinophils/100 WBC (Bld) 0.7 % Low 1 - 6 % [place], [place] Erythrocyte distribution 14.8 % High 11.5 - 14.5 % [facility], width (RBC) [Ratio] [place] Granulocytes/100 WBC 71.5 % 40 - 80 % [facility], (Bld) [place] Hematocrit (Bld) [Volume 30.7 % Low 35 - 47 % [facility], fraction] [place] Hemoglobin (Bld) 10.3 g/dL Low 11.7 - 16 g/dL [facility], [Mass/Vol] [place] Interpretation and review Abnormal [facility], of laboratory results [place] Lymphocytes (Bld) [#/Vol] 1.3 10*3/uL 1 - 4.3 10*3/uL [place], [place] Lymphocytes/100 WBC (Bld) 12.8 % Low 20 - 40 % [place], [place] MCH (RBC) [Entitic mass] 30.0 pg 26 - 34 pg [facility], [place] MCHC (RBC) [Mass/Vol] 33.7 % 32 - 36 % [place], [place] MCV (RBC) [Entitic vol] 89.0 fL 79 - 98 fL [place], [place] Monocytes (Bld) [#/Vol] 1.4 10*3/uL High 0 - 0.8 10*3/uL [facility], [place] Monocytes/100 WBC (Bld) 14.7 % High 2 - 10 % [place], [place] Platelet mean volume 7.1 fL Low 7.4 - 10.4 fL [facility], (Bld) [Entitic vol] [place] Platelets (Bld) [#/Vol] 195 10*3/uL 140 - 440 10*3/uL [place], [place] RBC (Bld) [#/Vol] 3.45 10*6/uL Low 3.8 - 5.2 10*6/uL [facility], [place] WBC (Bld) [#/Vol] 10.0 10*3/uL 3.6 - 10.7 10*3/uL [place] Test Performed by [facility], [facility], [address] [address] [address] ABDOMEN PELVIS W CONTRAST on Patient Name: EVER MCKEON FIN: [place], [place] [id number] ---CT--- Exam Date/Time 05/19/2020 17:24: [address] Abdomen/Pelvis w/ IV Contrast (IV Onl [facility] Physician MD RADHA, [facility] Accession Number [id number] CPT4 Codes 50186 (CT Abdomen/Pelvis w/ I V Contrast (IV Onl), Q9967 (CT ISOVUE 370MG/ML&[id number]&ML&1) Reason For Exam abdominal p ain Report CT ABDOMEN AND PELVIS WITH CONTRAST CLINICAL INDICATION: Abdominal pain, recent drain placement for kidney hematoma Axial CT images of the abdomen and pel vis were acquired after the administration of intravenous contrast. 75 ml of Isovue 370 contrast was given intravenously. Oral contrast was not given for this examination. COMPARISON: CT abdomen and pelvis dated 05/15/2020 FINDINGS: There has been interval placement of a percutaneous pigtail type drainage catheter which terminates just lateral to the right kidney. The previously noted pararenal fluid collection in this ar ea has essentially resolved. There does appear to be persistent perihepatic fluid surrounding the right hep atic lobe. When compared to the study from 05/15/2020, the enhancing rim surrounding the perihepatic fluid appear s more prominent. There is a cirrhotic appearance of the liver with a nodular contour. There is recanalization of the umbilical vein and multiple mesenteric varices. Th e spleen is enlarged. No focal hepatic lesions are identified. The gallbladder has been removed. The pancreas, adrenal glands, and left kidney appear gross ly normal. The abdominal aorta is normal in caliber. Ther e is no retroperitoneal, pelvic, or inguinal adenopathy. Th e urinary bladder is nearly empty, limiting evaluation. The uterus does not appear enlarged. There are multiple left-sided periuterine varices with enlargement of the left gonadal vein. Large and small bowel loops appear grossly normal without evidence of wall thickening or dilatation. There is a moderate-sized hiatal hernia. T here is a small right pleural effusion with consolidation a t the right lung base, worsening when compared to the pr ior examination. The left lung appears clear. IMPRESSION: Interval placement of a percutaneous pigtail type drai nage catheter within the previously described right perinep hric fluid collection. This fluid collection has essentiall y resolved. There is persistent fluid surrounding the ri ght hepatic lobe. There appears to be an enhancing rim surrounding this collection which appears slightly mor e prominent when compared to the study from 05/15/2020. T he sterility of this fluid cannot be assessed by imaging. This would be accessible for aspiration or drainage un jose CT or ultrasound guidance if clinically desired. Cirrh otic appearance of the liver with portal hypertension and splenomegaly, similar to the prior study. Moderate-siz ed hiatal hernia. Right basilar infiltrate and small righ t pleural effusion, worsened when compared to the prior study. Report Dictated on --- Final --- Dictated: 05/19/2020 5:48 pm Dictating Physician: MD COX JONATHAN R Signed Date and Time : 05/19/2020 5:58 pm Signed by: MD COX JONATHAN R Transcribed Date and Time: 05/19/2020 5:48 Ricky, [facility] Incoming Radiology Results From [facility] - 5:59 PM EDT [place], [place] Patient Name: EVER MCKEON ---CT--- Exam Date/Time 05/19/2020 17:24:[address] Abdomen/Pelvis w/ IV Contrast (IV Onl Ordering Physician MD [facility] Accession Number [id number] CPT4 Codes 36607 (CT Abdomen/Pelvis w/ IV Contrast (IV Onl), Q996 7 (CT ISOVUE 370MG/ML&[id number]&ML&1) Reason For Exam abdominal pain Report CT ABDOMEN AND PELVIS WITH CONTRAST CLINICAL INDICATION: Abdominal pain, recent drain plac ement for kidney hematoma Axial CT images of the abdomen and pelvis were acquire d after the administration of intravenous contrast. 75 ml of Isovu e 370 contrast was given intravenously. Oral contrast was not given f or this examination. COMPARISON: CT abdomen and pelvis dated 05/15/2020 FINDINGS: There has been interval placement of a percutaneous pi gtail type drainage catheter which terminates just lateral to the right kidney. The previously noted pararenal fluid collection in thi s area has essentially resolved. There does appear to be persiste nt perihepatic fluid surrounding the right hepatic lobe. When compare d to the study from 05/15/2020, the enhancing rim surrounding the gualberto hepatic fluid appears more prominent. There is a cirrhotic appearance of the liver with a no dular contour. There is recanalization of the umbilical vein and mult iple mesenteric varices. The spleen is enlarged. No focal hepatic lesi ons are identified. The gallbladder has been removed. The panc reas, adrenal glands, and left kidney appear grossly normal. The abdominal aorta is normal in caliber. There is no retroperitoneal, pelvic, or inguinal adenopathy. The urinary bladder is nearly empty, limiting evaluati on. The uterus does not appear enlarged. There are multiple left-side d periuterine varices with enlargement of the left gonadal vein. Large and small bowel loops appear grossly normal with out evidence of wall thickening or dilatation. There is a moderate-siz ed hiatal hernia. There is a small right pleural effusion with consolida tion at the right lung base, worsening when compared to the prior examination. The left lung appears clear. IMPRESSION: Interval placement of a percutaneous pigtail type drai nage catheter within the previously described right perinephric flui d collection. This fluid collection has essentially resolved. There is persistent fluid surrounding the right hepati c lobe. There appears to be an enhancing rim surrounding this collec tion which appears slightly more prominent when compared to the s tudy from 05/15/2020. The sterility of this fluid cannot be asses sed by imaging. This would be accessible for aspiration or drainage un jose CT or ultrasound guidance if clinically desired. Cirrhotic appearance of the liver with portal hyperten garrett and splenomegaly, similar to the prior study. Moderate-sized hiatal hernia. Right basilar infiltrate and small right pleural effus ion, worsened when compared to the prior study. Report Dictated on --- Final --- Dictated: 05/19/2020 5:48 pm Dictating Physician: MD [facility] JONATHAN R Signed Date and Time: 05/19/2020 5:58 pm Signed by: MD [facility] JONATHAN R Transcribed Date and Time: 05/19/2020 5:48 Culture, Aerobic Bacteria with Gram Stai n on 05-19-2020 Aerobic Culture No growth at 3 days. [facility] INR Coag (Bld) [Relative Many polymorphonuclear cells/lpf. [employer] time] No organisms seen. 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1970 Requested By: LUZ MARIA GARCIA Order Number: [id number] Reading MD: Chriss Kimbrough Measurements Intervals [place] Rate: 93 P: 73 GA: 180 QRS: 38 QRSD: 98 T: -27 QT: 405 QTc: 504 Interpretive Statements Sinus rhythm Ventricular premature complex Low voltage, precordial leads Borderline T abnormalities, diffuse leads Borderline prolonged QT interval Electronically Signed On 05-19-2020 16:31:45 EDT by Brendan Kimbrough [facility] Test Date: 2020-05-18 [facility] Department: 1A5[facility] Room: 1539 [facility] er: 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 : 1970 Requested By: PAU GARCIA Order Number: [id number] Reading MD: Chriss Kimbrough Measurements Intervals [place] Rate: 93 P: 73 GA: 180 QRS : 38 QRSD: 98 T: -27 QT: 405 QTc: 504 Interpretive Stateme nts Sinus rhythm Ventricular premature complex Low voltage , precordial leads Borderline T abnormalities, diffuse l adrian Borderline prolonged QT interval Magnesium [Mass/Vol] 2.0 mg/dL 1.6 - 2.3 mg/dL [facility] [place] Test Performed by [facility] [employer] [facility] [employer] [facility], [facility] [place] [address] TSH without Reflex on 05-19-2020 TSH Qn 2.695 u[IU]/mL 0.465 - 4.68 u[IU]/mL [facility] Test Performed by [facility], [facility] [place] [address] Vitamin B12 on 05-19-2020 Cobalamin (Vitamin B12) 927 pg/mL 239 - 931 pg/mL [facility] [Mass/Vol] Test Performed by [facility], [address] [place] [address] Add On Lab Test on 05-18-2020 Ammonia (P) [Mass/Vol] Test Performed by [facility], [address] [place] [address] Lft added, unable to add ammonia- needs green top sent on ice. 05/18/2020 11:18 Sodium [Moles/Vol] see comment [place], [place] Basic Metabolic Panel w/ Reflex to MG o n 05-18-2020 Anion gap [Moles/Vol] 9 mmol/L [place], [place] Calcium [Mass/Vol] 8.3 mg/dL Low 8.4 - 10.4 mg/dL [place], [place] Chloride [Moles/Vol] 99 mmol/L 98 - 107 mmol/L [place], [place] CO2 [Moles/Vol] 23 mmol/L 22 - 30 mmol/L [place], [place] Creatinine [Mass/Vol] 0.57 mg/dL 0.52 - 1.25 mg/dL [place], [place] EGFR IF NonAfrican Chinese >90.0 >60 mL/min [place], [place] Comment on above: KDIGO guidelines provide the following GFR categories: Stage GFR(ml/min/1.73 m2) [place] G1 >=90 Normal or high G2 60-89 Mildly decreased* G3a 45-59 Mildly to moderate ly decreased G3b 30-44 Moderately to haris rely decreased G4 15-29 Severely decreased G5 <15 Kidney failure *Relative to young adult lev el. In the absence of evidence o f kidney damage, neither GFR category G1 nor G2 fulfill t criteria for CKD. The CKD-EPI equation is rajesh dated in individuals 18 years of age and older. Currently the best equation for estimating glomerular filtra tion rate (GFR) from serum creatinine in children is [facility] Bedside Kumar equation. It is less accurate in patie nts with extremes of muscle mass, restriction of dietary protein, ingestion of creatine, extra-renal metabolism of cr eatinine, or treatment with medications that affect sofía l tubular creatinine secretion. GFR/1.73 sq M predicted mL/min/{1.73_m2} >60 mL/min [facility]- among blacks MDRD [place], [place] (S/P/Bld) [Vol rate/Area] Glucose [Mass/Vol] 92 mg/dL 70 - 100 mg/dL [place], [place] Interpretation and Abnormal [facility]- review of laboratory [place], [place] results Potassium [Moles/Vol] 3.4 mmol/L Low 3.5 - 5.1 [facility]- mmol/L [place] Sodium [Moles/Vol] 131 mmol/L Low 135 - 145 [facility]- mmol/L [place], [place] Urea nitrogen [Mass/Vol] 11 mg/dL 7 - 20 mg/dL [facility], [place] Test Performed by [facility], [place] [address] CBC Auto Differential on 05-18-2020 Absolute Baso # 0.1 10*3/uL 0 - 0.2 10*3/uL [place], [place] Absolute Neut # 7.7 10*3/uL High 1.8 - 7 10*3/uL [place], [place] Basophils/100 WBC (Bld) 0.6 % 0 - 2 % [place], [place] Eosinophils (Bld) [#/Vol] 0.1 10*3/uL 0 - 0.5 10*3/uL [place], [place] Eosinophils/100 WBC (Bld) 0.8 % Low 1 - 6 % [facility], [place] Erythrocyte distribution 14.9 % High 11.5 - 14.5 % [facility], width (RBC) [Ratio] [place] Granulocytes/100 WBC 75.8 % 40 - 80 % [facility], (Bld) [place] Hematocrit (Bld) [Volume 30.3 % Low 35 - 47 % [facility], fraction] [place] Hemoglobin (Bld) 10.3 g/dL Low 11.7 - 16 g/dL [facility], [Mass/Vol] [place] Interpretation and review Abnormal [facility], of laboratory results [place] Lymphocytes (Bld) [#/Vol] 1.2 10*3/uL 1 - 4.3 10*3/uL [place], [place] Lymphocytes/100 WBC (Bld) 11.7 % Low 20 - 40 % [place], [place] MCH (RBC) [Entitic mass] 30.7 pg 26 - 34 pg [place], [place] MCHC (RBC) [Mass/Vol] 34.1 % 32 - 36 % [place], [place] MCV (RBC) [Entitic vol] 90.1 fL 79 - 98 fL [place], [place] Monocytes (Bld) [#/Vol] 1.1 10*3/uL High 0 - 0.8 10*3/uL [place], [place] Monocytes/100 WBC (Bld) 11.1 % High 2 - 10 % [place], [place] Platelet mean volume 7.3 fL Low 7.4 - 10.4 fL [facility], (Bld) [Entitic vol] [place] Platelets (Bld) [#/Vol] 187 10*3/uL 140 - 440 10*3/uL [place], [place] RBC (Bld) [#/Vol] 3.36 10*6/uL Low 3.8 - 5.2 10*6/uL [place], [place] WBC (Bld) [#/Vol] 10.1 10*3/uL 3.6 - 10.7 10*3/uL [place] Test Performed by [address] [address] Hepatic Function Panel on 05-18-2020 Albumin [Mass/Vol] 2.5 g/dL Low 3.5 - 5 g/dL [place], [place] ALP [Catalytic activity/Vol] 134 U/L High 38 - 126 U/L [place], [place] ALT [Catalytic activity/Vol] 12 U/L 0 - 34 U/L [place], [place] Comment on above: The ALT test is performed by an updated assay method. Please note that the referen ce intervals have been changed and are now sex spec ific. AST [Catalytic 31 U/L 15 - 46 U/L [facility], activity/Vol] [place] Bilirubin Ql (U) 0.9 mg/dL 0.2 - 1.3 mg/dL [place], [place] Bilirubin.direct 0.0 mg/dL 0 - 0.3 mg/dL [facility], [Mass/Vol] [place] Interpretation and review Abnormal Me [facility], of laboratory results [place] Protein [Mass/Vol] 6.1 g/dL Low 6.3 - 8.2 g/dL [place], [place] Test Performed by [facility], [facility], [place] [address] [place] [address] Magnesium on 05-18-2020 Magnesium [Mass/Vol] 1.9 mg/dL 1.6 - 2.3 mg/dL [place], [place] Test Performed by [facility], [facility] [place] [address] [place] [address] Basic Metabolic Panel w/ Reflex to MG o n 05-17-2020 Anion gap [Moles/Vol] 11 mmol/L [place], [place] Calcium [Mass/Vol] 8.4 mg/dL 8.4 - 10.4 mg/dL [place], [place] Chloride [Moles/Vol] 98 mmol/L 98 - 107 mmol/L [place], [place] CO2 [Moles/Vol] 22 mmol/L 22 - 30 mmol/L [place], [place] Creatinine [Mass/Vol] 0.6 mg/dL 0.52 - 1.25 mg/dL [place], [place] EGFR IF NonAfrican Chinese >90.0 >60 mL/min [place], [place] Comment on above: KDIGO guidelines provide the following GFR categories: Stage GFR(ml/min/1.73 m2) [place] G1 >=90 Normal or high G2 60-89 Mildly decreased* G3a 45-59 Mildly to moderate ly decreased G3b 30-44 Moderately to haris rely decreased G4 15-29 Severely decreased G5 <15 Kidney failure *Relative to young adult lev el. In the absence of evidence o f kidney damage, neither GFR category G1 nor G2 fulfill t he criteria for CKD. The CKD-EPI equation is rajesh dated in individuals 18 years of age and older. Currently the best equation for estimating glomerular filtra tion rate (GFR) from serum creatinine in children is [facility] Bedside Kumar equation. It is less accurate in patie nts with extremes of muscle mass, restriction of dietary protein, ingestion of creatine, extra-renal metabolism of cr eatinine, or treatment with medications that affect sofía l tubular creatinine secretion. GFR/1.73 sq M predicted mL/min/{1.73_m2} >60 mL/min [facility]- among blacks MDRD [place], [place] (S/P/Bld) [Vol rate/Area] Glucose [Mass/Vol] 86 mg/dL 70 - 100 mg/dL [place], [place] Interpretation and Abnormal [facility]- review of laboratory [place], [place] results Potassium [Moles/Vol] 3.5 mmol/L 3.5 - 5.1 [facility]- mmol/L [place], [place] Sodium [Moles/Vol] 131 mmol/L Low 135 - 145 [facility]- mmol/L [place] Urea nitrogen [Mass/Vol] 11 mg/dL 7 - 20 mg/dL [facility], [place] Test Performed by [facility], [address] [place] [address] CBC Auto Differential on 05-17-2020 Absolute Baso # 0.1 10*3/uL 0 - 0.2 10*3/uL [place], [place] Absolute Neut # 12.6 10*3/uL High 1.8 - 7 10*3/uL [place], [place] Basophils/100 WBC (Bld) 0.4 % 0 - 2 % [place] Eosinophils (Bld) [#/Vol] 0.2 10*3/uL 0 - 0.5 10*3/uL [place], [place] Eosinophils/100 WBC (Bld) 1.5 % 1 - 6 % [facility], [place] Erythrocyte distribution 14.7 % High 11.5 - 14.5 % [facility], width (RBC) [Ratio] [place] Granulocytes/100 WBC 78.8 % 40 - 80 % [facility], (Bld) [place] Hematocrit (Bld) [Volume 31.2 % Low 35 - 47 % [facility], fraction] [place] Hemoglobin (Bld) 10.5 g/dL Low 11.7 - 16 g/dL [facility], [Mass/Vol] [place] Interpretation and review Abnormal [facility], of laboratory results [place] Lymphocytes (Bld) [#/Vol] 1.6 10*3/uL 1 - 4.3 10*3/uL [place], [place] Lymphocytes/100 WBC (Bld) 9.9 % Low 20 - 40 % [place], [place] MCH (RBC) [Entitic mass] 30.3 pg 26 - 34 pg [place], [place] MCHC (RBC) [Mass/Vol] 33.5 % 32 - 36 % [place], [place] MCV (RBC) [Entitic vol] 90.4 fL 79 - 98 fL [place], [place] Monocytes (Bld) [#/Vol] 1.5 10*3/uL High 0 - 0.8 10*3/uL [place], [place] Monocytes/100 WBC (Bld) 9.4 % 2 - 10 % [place], [place] Platelet mean volume 7.7 fL 7.4 - 10.4 fL [facility], (Bld) [Entitic vol] [place] Platelets (Bld) [#/Vol] 192 10*3/uL 140 - 440 10*3/uL [place], [place] RBC (Bld) [#/Vol] 3.46 10*6/uL Low 3.8 - 5.2 10*6/uL [place], [place] WBC (Bld) [#/Vol] 15.9 10*3/uL High 3.6 - 10.7 10*3/uL [place] Test Performed by [facility], [address] [address] Culture, Urine on 05-17-2020 Bacteria identified Cx Nom (U) No growth (<1,000 CFU/ml). 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 Basic Metabolic Panel w/ Reflex to MG o n 05-16-2020 Anion gap [Moles/Vol] 7 mmol/L [place], [place] Calcium [Mass/Vol] 7.9 mg/dL Low 8.4 - 10.4 mg/dL [place], [place] Chloride [Moles/Vol] 99 mmol/L 98 - 107 mmol/L [place] CO2 [Moles/Vol] 24 mmol/L 22 - 30 mmol/L [place], [place] Creatinine [Mass/Vol] 0.57 mg/dL 0.52 - 1.25 mg/dL [place], [place] EGFR IF NonAfrican Chinese >90.0 >60 mL/min [place], [place] Comment on above: KDIGO guidelines provide the following GFR categories: Stage GFR(ml/min/1.73 m2) [place] G1 >=90 Normal or high G2 60-89 Mildly decreased* G3a 45-59 Mildly to moderate ly decreased G3b 30-44 Moderately to haris rely decreased G4 15-29 Severely decreased G5 <15 Kidney failure *Relative to young adult meron el. In the absence of evidence o f kidney damage, neither GFR category G1 nor G2 fulfill [facility] criteria for CKD. The CKD-EPI equation is rajesh dated in individuals 18 years of age and older. Currently the best equation for estimating glomerular filtra tion rate (GFR) from serum creatinine in children is [facility] Bedside Kumar equation. It is less accurate in patie nts with extremes of muscle mass, restriction of dietary protein, ingestion of creatine, extra-renal metabolism of cr eatinine, or treatment with medications that affect sofía l tubular creatinine secretion. GFR/1.73 sq M predicted mL/min/{1.73_m2} >60 mL/min [facility]- among blacks MDRD [place] (S/P/Bld) [Vol rate/Area] Glucose [Mass/Vol] 79 mg/dL 70 - 100 mg/dL [place], [place] Interpretation and Abnormal [facility]- review of laboratory [place], [place] results Potassium [Moles/Vol] 3.4 mmol/L Low 3.5 - 5.1 [facility]- mmol/L [place], [place] Sodium [Moles/Vol] 131 mmol/L Low 135 - 145 [facility]- mmol/L [place], [place] Urea nitrogen [Mass/Vol] 10 mg/dL 7 - 20 mg/dL [place], [place] Test Performed by [facility], [address] [place], [place] [address] CBC on 05-16-2020 Erythrocyte distribution 14.4 % 11.5 - 14.5 % [facility] (RBC) [Ratio] [place] Hematocrit (Bld) [Volume 32.9 % Low 35 - 47 % [facility], fraction] [place] Hemoglobin (Bld) 10.9 g/dL Low 11.7 - 16 g/dL [facility], [Mass/Vol] [place] Interpretation and review Abnormal Me [facility], of laboratory results [place] MCH (RBC) [Entitic mass] 30.1 pg 26 - 34 pg [facility], [place] MCHC (RBC) [Mass/Vol] 33.1 % 32 - 36 % [facility], [place] MCV (RBC) [Entitic vol] 91.0 fL 79 - 98 fL [facility], [place] Platelet mean volume (Bld) 7.6 fL 7.4 - 10.4 fL [facility], [Entitic vol] [place] Platelets (Bld) [#/Vol] 206 10*3/uL 140 - 440 [facility], 10*3/uL [place] RBC (Bld) [#/Vol] 3.61 10*6/uL Low 3.8 - 5.2 [facility], 10*6/uL [place] WBC (Bld) [#/Vol] 21.0 10*3/uL High 3.6 - 10.7 [facility], 10*3/uL [place] Test Performed by [facility], [facility], [address] [address] [place] ABSCESS DRAIN PERITONEAL on 05-16-20 20 [facility] Incoming Radiology [facility] - 4:36 PM EDT [place], [place] Patient Name: EVER MCKEON ---CT--- Exam Date/Time 05/16/2020 14:57:[address] Drainage Peritoneal Ordering Physician MD ANTONELLA,ISAEL Dyson Accession Number [id number] CPT4 Codes 63100 (CT Drainage Peritoneal/Retroperitoneal), [address]12 () Reason For Exam right pararenal/ hepatic fluid collection drain placem ent Report CT GUIDED PARARENAL FLUID COLLECTION DRAIN PLACEMENT Reasons for examination: Right pararenal fluid collect ion. Prior imaging studies were reviewed and the patient wa s examined and interviewed. After discussion of the benefits and risk s of the abscess drainage procedure, informed consent was obtained. The procedure was performed under moderate sedation. Sedation was admini stered by the radiology nurse who monitored the patient's vital sign s throughout the procedure under my supervision. The intraservice moder ate sedation time was [address] scans were obtained with the patient in the l eft lateral decubitus position. The right pararenal fluid collecti on was localized, and deemed suitable for percutaneous draina ge. Following sterile preparation, draping, and local anesthetic adm inistration, an 18 gauge needle was used to access the collection. CT scans confirmed good needle position. A guidewire was advanced into th e collection. The tract was dilated with serial dilators, and then a n 8 Swiss pigtail drain was placed into the collection over the wire. The pigtail catheter position was finalized, and the pigta il was locked. The catheter was left to a closed suction drainage sys tem, and secured with silk suture and a Perc-u-stay device. Post procedure CT scan demonstrated satisfactory posit ioning of the pigtail drainage catheter. The patient tolerated the p rocedure and there were no immediate complications. The patient was transferred to the recovery area in stable condition. IMPRESSION: 1. Successful CT guided right pararenal fluid collecti on drain placement. Report Dictated on --- Final --- Dictated: 05/16/2020 4:33 pm Dictating Physician: MD BOSWELL GEORGE RICHARD Signed Date and Time: 05/16/2020 4:35 pm Signed by: MD BOSWELL GEORGE RICHARD Transcribed Date and Time: 05/16/2020 4:33 Patient Name: EVER MCKEON FIN: [place], [place] [id number] ---CT--- Exam Date/Time 05/16/2020 14:57: [address] Drainage Peritoneal Ordering Physician MD ANTONELLA,ISAEL Dyson Accession Number [id number] C PT4 Codes 80066 (CT Drainage Peritoneal/Retroperitoneal), 95707 () Reason For Exam right pararenal/ hepatic flui d collection drain placement Report CT GUIDED PARARENAL FLUID COLLECTION DRAIN PLACEMENT Reasons for examinati on: Right pararenal fluid collection. Prior imaging studie s were reviewed and the patient was examined and interviewed. After discussion of the benefits and risk s of the abscess drainage procedure, informed consent was obtained. The procedure was performed under moderate sedation. Sedation was administered by the radiology jhoana mane who monitored the patient's vital signs throughout the procedure under my supervision. The intraservice moder ate sedation time was [address] scans were obta ined with the patient in the left lateral decubitus positio n. The right pararenal fluid collection was localized, an d deemed suitable for percutaneous drainage. Following sterile preparation, draping, and local anesthetic administration, an 18 gauge needle was used to access the collection. CT scans confirmed good needle position. A guidewire was advanced into the collection. The tract was dilated with serial dilators, and then an 8 Swiss pig tail drain was placed into the collection over the wire. Th e pigtail catheter position was finalized, and the pigta il was locked. The catheter was left to a closed suction drainage system, and secured with silk suture and a Perc-u-stay device. Post procedure CT scan demonstrate d satisfactory positioning of the pigtail drainage kylah ter. The patient tolerated the procedure and there were no immediate complications. The patient was transferred t o the recovery area in stable condition. IMPRESSION: 1. Successful CT guided right pararenal fluid collection drain placement. Report Dictated on Workstation: [id number] --- Final --- Dictated: 05/16/2020 4:33 pm Dictati Physician: MD BOSWELL GEORGE RICHARD Signed Date and Ti me: 05/16/2020 4:35 pm Signed by: MD BOSWELL GEORGE RICHARD Transcribed Date and Time: 05/16/2020 4:33 Lactic Acid, Plasma on 05-16-2020 Lactate [Moles/Vol] 1.7 mmol/L 0.7 - 2 mmol/L [facility] [place] Test Performed by [facility] [place], [place] [facility] [place] [address] Legionella Antigen, Urine on 05-16-2020 LEGIONELLA ANTIGEN Legionella antigen NOT DETECTED. [email or web address] [place] Magnesium on 05-16-2020 Magnesium [Mass/Vol] 1.7 mg/dL 1.6 - 2.3 mg/dL [facility] [place], [place] Other on 05-16-2020 Test Performed by [facility] [address] [place] [address] Test Performed by [facility] [address] [place] [address] Specimen Source Comment:Urine, clean c atch Procalcitonin on 05-16-2020 Interpretation and review of Abnormal [place], [place] laboratory results Procalcitonin 1.13 ng/mL Abnormal <0.10 [place], [place] Sodium [Moles/Vol] See Below [place], [place] Comment on above: PCT <0.50 = Low risk of haris re sepsis and/or septic shock. PCT >2.00 = High risk of sev ere sepsis and/or septic shock. Test [facility] [address] [place] [address] Respiratory Virus PCR Panel on 05-16-20 20 Respiratory Panel PCR NEGATIVE: No targets were detected by the [facility] [place], [place] Respiratory Pathogens PCR Panel. PLEASE NOTE: This assay DOES NOT detect SARS-CoV-2/COV ID-19. _ The [employer] [place] Respiratory Pathogens PCR Panel can detect the following targets: Adenovirus, Coronavirus 229E, Coronavirus HKU1, Coronavirus NL63, Coronavirus OC43, Human Metapneumovirus, Human Rhinovirus/Enterovirus, Influenza A, Influenza B, Parainfluenza Virus 1, Parainfluenza Virus 2, Parainfluenza Virus 3, Parainfluenza Virus 4, Respiratory Syncytial Virus, Bordetella pertussis, Bordetella parapertussis, Chlamydia pneumoniae, Mycoplasma pneumoniae Test Performed by [facility], [place], [place] [address] [place] [address] Specimen Source Comment:Nasopharyngeal STREP PNEUMONIAE ANTIGEN on 05-16-2020 Interpretation and review of Abnormal [place], [place] laboratory results STREP PNEUMONIAE ANTIGEN, Strep pneumo antigen Abnormal [place], [place] URINE DETECTED. Basic Metabolic Panel on 05-15-2020 Anion gap [Moles/Vol] 9 mmol/L [place], [place] Calcium [Mass/Vol] 8.4 mg/dL 8.4 - 10.4 mg/dL [place], [place] Chloride [Moles/Vol] 97 mmol/L Low 98 - 107 mmol/L [place], [place] CO2 [Moles/Vol] 24 mmol/L 22 - 30 mmol/L [place], [place] Creatinine [Mass/Vol] 0.51 mg/dL Low 0.52 - 1.25 mg/dL [place], [place] EGFR IF NonAfrican Chinese >90.0 >60 mL/min [place], [place] Comment on above: KDIGO guidelines provide the following GFR categories: Stage GFR(ml/min/1.73 m2) [place] G1 >=90 Normal or high G2 60-89 Mildly decreased* G3a 45-59 Mildly to moderate ly decreased G3b 30-44 Moderately to haris rely decreased G4 15-29 Severely decreased G5 <15 Kidney failure *Relative to young adult meron el. In the absence of evidence o f kidney damage, neither GFR category G1 nor G2 fulfill t he criteria for CKD. The CKD-EPI equation is rajesh dated in individuals 18 years of age and older. Currently the best equation for estimating glomerular filtra tion rate (GFR) from serum creatinine in children is [facility] Bedside Kumar equation. It is less accurate in patie nts with extremes of muscle mass, restriction of dietary protein, ingestion of creatine, extra-renal metabolism of cr eatinine, or treatment with medications that affect sofía l tubular creatinine secretion. GFR/1.73 sq M predicted mL/min/{1.73_m2} >60 mL/min [place], [place] among blacks MDRD (S/P/Bld) [Vol rate/Area] Glucose [Mass/Vol] 151 mg/dL High 70 - 100 mg/dL [place], [place] Potassium [Moles/Vol] 3.5 mmol/L 3.5 - 5.1 mmol/L [place], [place] Sodium [Moles/Vol] 131 mmol/L Low 135 - 145 mmol/L [place], [place] Urea nitrogen [Mass/Vol] 9 mg/dL 7 - 20 mg/dL [place] CT ABDOMEN PELVIS W CONTRAST on 020 Patient Name: EVER MCKEON FIN: [place], [place] [id number] ---CT--- Exam Date/Time 05/15/2020 21:31: [address] Abdomen/Pelvis w/ IV Contrast (IV Onl Orde ring Physician MD JORGE, AYSHA Blank Accession Number [id number] CPT4 Codes 33090 (CT Abdomen/Pelvis w/ I V Contrast (IV Onl), Q9967 (CT ISOVUE 370MG/[id number]&ML&1) Reason For Exam abdominal p ain and fever Report CT abdomen and pelvis with contrast HISTORY: Abdominal pain and fever Protocol: 3 mm axial images with intravenous contrast, oral contrast was no t given COMPARISON: 05/10/2020 Patchy infiltrate in the r ight lung base. Moderate hiatal hernia. Again seen is a cys tic lesion arising from the lower pole of the right kidney which communicates with patchy fluid in the right pararenal space. This fluid could be infected. There i s a new hepatic subcapsular fluid collection which could a lso be infected. Cirrhotic appearance of liver. Splenomega ly. Portal hypertension. Free fluid in the pelvis. The ortega dder is unremarkable. No bowel inflammation or bowel obstruction. IMPRESSION: Patchy infiltrate in the righ t lung base. Moderate hiatal hernia. Again seen is a cys tic lesion arising from the lower pole of the right kidney which communicates with patchy fluid in the right pararenal space. This fluid could be infected. There i s a new hepatic subcapsular fluid collection which could a lso be infected. Cirrhotic appearance of liver. Splenomega ly. Portal hypertension. Free fluid in the pelvis. Report Dictated on Workstation: [id number] --- Final --- Dictated: 05/15/2020 9:36 pm Dictating Physician: MD TOPETE MALAY Signed Date and Time: 05/15/2020 9:39 pm Sig vicente by: MD TOPETE MALAY Transcribed Date and Time: 020 9:36 Ricky, Bryona Incoming Radiology Results From [facility] - 9:41 PM EDT [place], [place] Patient Name: EVER MCKEON ---CT--- Exam Date/Time 05/15/2020 21:31:[address] Abdomen/Pelvis w/ IV Contrast (IV Onl Ordering Physician MD JORGE, AYSHA D Accession Number [id number] CPT4 Codes 60320 (CT Abdomen/Pelvis w/ IV Contrast (IV Onl), Q996 7 (CT ISOVUE 370MG/[id number]&ML&1) Reason For Exam abdominal pain and fever Report CT abdomen and pelvis with contrast HISTORY: Abdominal pain and fever Protocol: 3 mm axial images with intravenous contrast, oral contrast was not given COMPARISON: 05/10/2020 Patchy infiltrate in the right lung base. Moderate hia tristin hernia. Again seen is a cystic lesion arising from the lower p ole of the right kidney which communicates with patchy fluid in the rig ht pararenal space. This fluid could be infected. There is a new he patic subcapsular fluid collection which could also be infec dori. Cirrhotic appearance of liver. Splenomegaly. Portal hypertension . Free fluid in the pelvis. The bladder is unremarkable. No bowel infl ammation or bowel obstruction. IMPRESSION: Patchy infiltrate in the right lung base. Moderate hiatal hernia. Again seen is a cystic lesion arising from the lower p ole of the right kidney which communicates with patchy fluid in the rig ht pararenal space. This fluid could be infected. There is a new hepatic subcapsular fluid collection wh ich could also be infected. Cirrhotic appearance of liver. Splenomegaly. Portal hy pertension. Free fluid in the pelvis. Report Dictated on Workstation: [id number] --- Final --- Dictated: 05/15/2020 9:36 pm Dictating Physician: MD TOPETE MALAY Signed Date and Time: 05/15/2020 9:39 pm Signed by: MD TOPETE MALAY Transcribed Date and Time: 05/15/2020 9:36 Hemogram (CBC) w/Auto Diff on 05-15-20 20 Absolute Baso # 0.1 10*3/uL 0 - 0.2 10*3/uL [facility], [place] Absolute Neut # 20.7 10*3/uL High 1.8 - 7 10*3/uL [facility], [place] Basophils/100 WBC (Bld) 0.4 % 0 - 2 % [place], [place] Eosinophils (Bld) [#/Vol] 0.0 10*3/uL 0 - 0.5 10*3/uL [facility], [place] Eosinophils/100 WBC (Bld) 0.2 % Low 1 - 6 % [facility], [place] Erythrocyte distribution 14.7 % High 11.5 - 14.5 % [facility], width (RBC) [Ratio] [place] Granulocytes/100 WBC 86.1 % High 40 - 80 % [facility], (Bld) [place] Hematocrit (Bld) [Volume 36.9 % 35 - 47 % [facility], fraction] [place] Hemoglobin (Bld) 12.4 g/dL 11.7 - 16 g/dL [facility], [Mass/Vol] [place] Interpretation and review Abnormal [facility], of laboratory results [place] Lymphocytes (Bld) [#/Vol] 1.7 10*3/uL 1 - 4.3 10*3/uL [facility], [place] Lymphocytes/100 WBC (Bld) 7.3 % Low 20 - 40 % [facility], [place] MCH (RBC) [Entitic mass] 30.0 pg 26 - 34 pg [facility], [place] MCHC (RBC) [Mass/Vol] 33.6 % 32 - 36 % [facility], [place] MCV (RBC) [Entitic vol] 89.4 fL 79 - 98 fL [place], [place] Monocytes (Bld) [#/Vol] 1.5 10*3/uL High 0 - 0.8 10*3/uL [facility], [place] Monocytes/100 WBC (Bld) 6.0 % 2 - 10 % [facility], [place] Platelet mean volume 7.3 fL Low 7.4 - 10.4 fL [facility], (Bld) [Entitic vol] [place] Platelets (Bld) [#/Vol] 268 10*3/uL 140 - 440 10*3/uL [facility], [place] RBC (Bld) [#/Vol] 4.13 10*6/uL 3.8 - 5.2 10*6/uL [facility], [place] WBC (Bld) [#/Vol] 24.0 10*3/uL High 3.6 - 10.7 10*3/uL [place], [place] Test Performed by [facility], [facility], [place] [address] [place] [address] Hepatic Function Panel on 05-15-2020 Albumin [Mass/Vol] 2.8 g/dL Low 3.5 - 5 g/dL [place], [place] ALP [Catalytic activity/Vol] 148 U/L High 38 - 126 U/L [place], [place] ALT [Catalytic activity/Vol] 15 U/L 0 - 34 U/L [place], [place] Comment on above: The ALT test is performed by an updated assay method. Please note that the referen ce intervals have been changed and are now sex spec ific. AST [Catalytic activity/Vol] 29 U/L 15 - 46 U/L [place], [place] Bilirubin Ql (U) 1.5 mg/dL High 0.2 - 1.3 mg/dL [place], [place] Bilirubin.direct [Mass/Vol] 0.0 mg/dL 0 - 0.3 mg/dL [place], [place] Interpretation and review of Abnormal [place], [place] laboratory results Protein [Mass/Vol] 6.7 g/dL 6.3 - 8.2 g/dL [place], [place] Lactic Acid, Plasma on 05-15-2020 Interpretation and review Abnormal [facility] laboratory results [place] Lactate [Moles/Vol] 3 mmol/L Critically high 0.7 - 2 mmol/L [place], [place] Comment on above: Critical Panic Lactate has f ivanna below the [facility] CCL/ED Panic Call Protocol. For [facility] ED patients ONLY the Lactate Levels greater than 2.0 and less than or equal to 4.0 mmol/L fall under the Panic Call Po licy. Test Performed by [facility], [place] [address] [place] [address] Lactate [Moles/Vol] 2.7 mmol/L Critically high 0.7 - [address] [facility] mmol/L [place] Comment on above: Critical Panic Lactate has f ivanna below the [facility] CCL/ED Panic Call Protocol. For [facility] ED patients ONLY the Lactate Levels greater than 2.0 and less than or equal to 4.0 mmol/L fall under the Panic Call Po licy. Lipase on 05-15-2020 Lipase [Catalytic activity/Vol] 39 U/L 23 - 300 U/L [place], [place] Other on 05-15-2020 Test Performed by [facility], [facility] [place] [address] Interpretation and review of Abnormal [place], [place] laboratory results Test Performed by [facility], [facility] [place] [address] Protime-INR on 05-15-2020 INR Coag (PPP) [Relative time] 1.5 {INR} [place], [place] Comment on above: Recommended Anticoagulant Th erapy: SEE BELOW ----- INR of 2.0 - 3.0 : - Prophylaxis of Venous Thro mbosis (high-risk surgery) - Treatment of Venous Thromb osis - Treatment of Pulmonary Emb olism (Includes tissue heart valves, Acute Myocardial Inf arction to prevent systemic embolism, Valvular Heart Dis ease, and Atrial Fibrillation) ----- INR of 2.5 - 3.5 : - Mechanical Prosthetic Valv es (high risk) - If oral anticoagulant ther apy is used to prevent Myocardial Infarction Interpretation and review of laboratory Abnormal [place], [place] results PT Coag (PPP) [Time] 15.5 s High 9 - 12 s [place], [place] Comment on above: . Test Performed by [facility], [facility] [address] [facility] [address] [place] [address] Urinalysis on 05-15-2020 Appearance (U) Clear Clear NA [place], [place] Comment on above: . Bacteria, UA Negative Negative /[HPF] [place], [place] Comment on above: . Bilirubin Urine Negative Negative mg/dL [place], [place] Comment on above: . Color (U) Yellow Lt. Yellow NA [place], [place] Comment on above: . Glucose, Ur Normal Normal (<70) mg/dL [place], [place] Comment on above: . Hyaline Casts, UA Negative Negative /[LPF] [place], [place] Comment on above: . Interpretation and review of Abnormal [place], [place] laboratory results Ketones Ql (U) Negative Negative mg/dL [place], [place] Comment on above: . LEUKOCYTES, UA Negative Negative Mario/uL [place], [place] Comment on above: . Mucous Threads Few Negative /[LPF] [place], [place] Comment on above: . Nitrite, Urine Negative Negative NA [place], [place] Comment on above: . Occult Blood,Urine Negative Negative mg/dL [place], [place] Comment on above: . pH (U) 6.5 [pH] [place], [place] Comment on above: . Protein (U) [Mass/Vol] 10 mg/dL Abnormal Negative [place], [place] Comment on above: . RBC (U) [#/Vol] 0-2 0 - 2 /[HPF] [place], [place] Comment on above: . Specific [place], Urine >1.030 Abnormal [place], [place] Comment on above: . Squam Epithel, UA 11-25 Abnormal 3 - 5 /[HPF] [place], [place] Comment on above: . Urobilinogen, Urine 4 mg/dL Abnormal Normal (0-1) [place], [place] Comment on above: . WBC, UA 0-2 0 - 5 /[HPF] [place], [place] Comment on above: . Test Performed by [facility], [address] [place] [address] XR CHEST (2 VW) on 05-15-2020 Ricky, [facility] Incoming Radiology Results From [facility] - 6:47 PM EDT [place], [place] Patient Name: EVER MCKEON ---Diagnostic Radiology--- Exam Date/Time 05/15/2020 18:41:40 EDT Exam CR Chest PA/LAT Ordering Physician WOLF DELGADO Accession Number [id number] CPT4 Codes 51350 () Reason For Exam sepsis Report Indication: Sepsis. Comparison 05/07/2020. Findings and impression: Chest two views. Focal infilt rate right lower lobe. No definite effusion or pneumothorax. Mediastinu m difficult to evaluate due to technique; cardiac enlargement possibl e. A right lower lobe pneumonia is suspected. Report Dictated on --- Final --- Dictated: 05/15/2020 6:45 pm Dictating Physician: MD SANTOS JOHN Signed Date and Time: 05/15/2020 6:46 pm Signed by: MD SANTOS JOHN Transcribed Date and Time: 05/15/2020 6:45 Patient Name: EVER MCKEON FIN: [place], [place] [id number] ---Diagnostic Radiology--- Exam Date/Time 05/15/2020 18:41:40 EDT Exam CR Chest PA/LAT Ordering Physician WOLF DELGADO Accession Number [id number] CPT4 Codes 10551 () Reason For Exam seps is Report Indication: Sepsis. Comparison 05/07/2020. Findi ngs and impression: Chest two views. Focal infiltrate righ t lower lobe. No definite effusion or pneumothorax. Mediastinum difficult to evaluate due to technique; cardiac enlargement possible. A right lower lobe pneum onia is suspected. Report Dictated on 1 --- Final --- Dictated: 05/15/2020 6:45 pm Dictati ng Physician: MD SANTOS JOHN Signed Date and Time: 05/15/2020 6:46 pm Signed by: MD SANTOS JOHN Transcribed Date and Time: 05/15/2020 6:45 Add On Lab Test on 05-11-2020 Sodium [Moles/Vol] Accepted [place], [place] Comment on above: Specimen available & accepta ble for analysis. Test Performed by [employer] [facility], [address] [facility] [place] [address] Basic Metabolic Panel on 05-11-2020 Anion gap [Moles/Vol] 7 mmol/L [place], [place] Calcium [Mass/Vol] 9.0 mg/dL 8.4 - 10.4 mg/dL [place], [place] Chloride [Moles/Vol] 96 mmol/L Low 98 - 107 mmol/L [place], [place] CO2 [Moles/Vol] 29 mmol/L 22 - 30 mmol/L [place], [place] Creatinine [Mass/Vol] 0.61 mg/dL 0.52 - 1.25 mg/dL [place], [place] EGFR IF NonAfrican Chinese >90.0 >60 mL/min [place], [place] Comment on above: KDIGO guidelines provide the following GFR categories: Stage GFR(ml/min/1.73 m2) [place] G1 >=90 Normal or high G2 60-89 Mildly decreased* G3a 45-59 Mildly to moderate ly decreased G3b 30-44 Moderately to haris rely decreased G4 15-29 Severely decreased G5 <15 Kidney failure *Relative to young adult meron el. In the absence of evidence o f kidney damage, neither GFR category G1 nor G2 fulfill t criteria for CKD. The CKD-EPI equation is rajesh dated in individuals 18 years of age and older. Currently the best equation for estimating glomerular filtra tion rate (GFR) from serum creatinine in children is [facility] Bedside Kumar equation. It is less accurate in patie nts with extremes of muscle mass, restriction of dietary protein, ingestion of creatine, extra-renal metabolism of cr eatinine, or treatment with medications that affect sofía l tubular creatinine secretion. GFR/1.73 sq M predicted mL/min/{1.73_m2} >60 mL/min [facility] among blacks MDRD [place], [place] (S/P/Bld) [Vol rate/Area] Glucose [Mass/Vol] 115 mg/dL High 70 - 100 mg/dL [place], [place] Interpretation and Abnormal [facility]- review of laboratory [place], [place] results Potassium [Moles/Vol] 3.7 mmol/L 3.5 - 5.1 [facility]- mmol/L [place], [place] Sodium [Moles/Vol] 132 mmol/L Low 135 - 145 [facility]- mmol/L [place] Urea nitrogen [Mass/Vol] 8 mg/dL 7 - 20 mg/dL [place], [place] Test Performed by [facility], [address] [place], [place] [address] C-Reactive Protein on 05-11-2020 CRP [Mass/Vol] 210 mg/L High 0 - 6 mg/L [place], [place] Comment on above: . Interpretation and review of Abnormal [place], [place] laboratory results Test Performed by [facility], [address] [place] [id number] CBC Auto Differential on 05-11-2020 Absolute Baso # 0.1 10*3/uL 0 - 0.2 10*3/uL [place], [place] Absolute Neut # 6.1 10*3/uL 1.8 - 7 10*3/uL [facility], [place] Basophils/100 WBC (Bld) 0.7 % 0 - 2 % [place], [place] Eosinophils (Bld) [#/Vol] 0.2 10*3/uL 0 - 0.5 10*3/uL [place], [place] Eosinophils/100 WBC (Bld) 2.2 % 1 - 6 % [place], [place] Erythrocyte distribution 13.9 % 11.5 - 14.5 % [facility] width (RBC) [Ratio] [place] Granulocytes/100 WBC 69.3 % 40 - 80 % [facility], (Bld) [place] Hematocrit (Bld) [Volume 34.2 % Low 35 - 47 % [facility], fraction] [place] Hemoglobin (Bld) 11.6 g/dL Low 11.7 - 16 g/dL [facility], [Mass/Vol] [place] Interpretation and review Abnormal [facility], of laboratory results [place] Lymphocytes (Bld) [#/Vol] 1.3 10*3/uL 1 - 4.3 10*3/uL [place], [place] Lymphocytes/100 WBC (Bld) 14.8 % Low 20 - 40 % [place], [place] MCH (RBC) [Entitic mass] 30.3 pg 26 - 34 pg [place], [place] MCHC (RBC) [Mass/Vol] 33.8 % 32 - 36 % [place], [place] MCV (RBC) [Entitic vol] 89.8 fL 79 - 98 fL [place], [place] Monocytes (Bld) [#/Vol] 1.1 10*3/uL High 0 - 0.8 10*3/uL [place], [place] Monocytes/100 WBC (Bld) 13.0 % High 2 - 10 % [place], [place] Platelet mean volume 8.0 fL 7.4 - 10.4 fL [facility], (Bld) [Entitic vol] [place] Platelets (Bld) [#/Vol] 245 10*3/uL 140 - 440 10*3/uL [place], [place] RBC (Bld) [#/Vol] 3.81 10*6/uL 3.8 - 5.2 10*6/uL [place], [place] WBC (Bld) [#/Vol] 8.8 10*3/uL 3.6 - 10.7 10*3/uL [place] Test Performed by [place] [address] [place] [address] Procalcitonin on 05-11-2020 Interpretation and review of Abnormal [place], [place] laboratory results Procalcitonin 0.32 ng/mL Abnormal <0.10 [place], [place] Sodium [Moles/Vol] See Below [place], [place] Comment on above: PCT <0.50 = Low risk of haris re sepsis and/or septic shock. PCT >2.00 = High risk of sev ere sepsis and/or septic shock. Test Performed by [place] [address] [place] [address] Sedimentation Rate on 05-11-2020 Interpretation and review Abnormal [facility] laboratory results [place] Sed Rate 71 mm/h High 0 - 20 mm/h [place], [place] Test Performed by [place] [address] [place] [address] Add On Lab Test on 05-10-2020 Sodium [Moles/Vol] Accepted [place], [place] Comment on above: Specimen available & accepta ble for analysis. Test Performed by [facility] [place] [address] [place] [address] Basic Metabolic Panel on 05-10-2020 Anion gap [Moles/Vol] 9 mmol/L [place], [place] Calcium [Mass/Vol] 8.8 mg/dL 8.4 - 10.4 mg/dL [place], [place] Chloride [Moles/Vol] 97 mmol/L Low 98 - 107 mmol/L [place] CO2 [Moles/Vol] 25 mmol/L 22 - 30 mmol/L [place], [place] Creatinine [Mass/Vol] 0.57 mg/dL 0.52 - 1.25 mg/dL [place], [place] EGFR IF NonAfrican Chinese >90.0 >60 mL/min [place], [place] Comment on above: KDIGO guidelines provide the following GFR categories: Stage GFR(ml/min/1.73 m2) [place] G1 >=90 Normal or high G2 60-89 Mildly decreased* G3a 45-59 Mildly to moderate ly decreased G3b 30-44 Moderately to haris rely decreased G4 15-29 Severely decreased G5 <15 Kidney failure *Relative to young adult lev el. In the absence of evidence o f kidney damage, neither GFR category G1 nor G2 fulfill t he criteria for CKD. The CKD-EPI equation is rajesh dated in individuals 18 years of age and older. Currently the best equation for estimating glomerular filtra tion rate (GFR) from serum creatinine in children is [facility] Bedside Kumar equation. It is less accurate in patie nts with extremes of muscle mass, restriction of dietary protein, ingestion of creatine, extra-renal metabolism of cr eatinine, or treatment with medications that affect sofía l tubular creatinine secretion. GFR/1.73 sq M predicted mL/min/{1.73_m2} >60 mL/min [place] among blacks MDRD (S/P/Bld) [Vol rate/Area] Glucose [Mass/Vol] 104 mg/dL High 70 - 100 mg/dL [place], [place] Potassium [Moles/Vol] 3.7 mmol/L 3.5 - 5.1 mmol/L [place], [place] Sodium [Moles/Vol] 131 mmol/L Low 135 - 145 mmol/L [place], [place] Urea nitrogen [Mass/Vol] 9 mg/dL 7 - 20 mg/dL [place] C-Reactive Protein on 05-10-2020 CRP [Mass/Vol] 246.1 mg/L High 0 - 6 mg/L [place], [place] Comment on above: . Interpretation and review of Abnormal [place], [place] laboratory results Test Performed by [facility], [address] [place] [id number] CBC Auto Differential on 05-10-2020 Absolute Baso # 0.1 10*3/uL 0 - 0.2 10*3/uL [place], [place] Absolute Neut # 7.2 10*3/uL High 1.8 - 7 10*3/uL [place], [place] Basophils/100 WBC (Bld) 0.6 % 0 - 2 % [place] Eosinophils (Bld) [#/Vol] 0.2 10*3/uL 0 - 0.5 10*3/uL [place], [place] Eosinophils/100 WBC (Bld) 1.7 % 1 - 6 % [place] Erythrocyte distribution 13.7 % 11.5 - 14.5 % [facility] width (RBC) [Ratio] [place] Granulocytes/100 WBC 68.8 % 40 - 80 % [facility], (Bld) [place] Hematocrit (Bld) [Volume 33.3 % Low 35 - 47 % [facility], fraction] [place] Hemoglobin (Bld) 11.4 g/dL Low 11.7 - 16 g/dL [facility], [Mass/Vol] [place] Interpretation and review Abnormal [facility] of laboratory results [place] Lymphocytes (Bld) [#/Vol] 1.7 10*3/uL 1 - 4.3 10*3/uL [place], [place] Lymphocytes/100 WBC (Bld) 15.7 % Low 20 - 40 % [place] MCH (RBC) [Entitic mass] 30.5 pg 26 - 34 pg [place] MCHC (RBC) [Mass/Vol] 34.2 % 32 - 36 % [place], [place] MCV (RBC) [Entitic vol] 89.4 fL 79 - 98 fL [place], [place] Monocytes (Bld) [#/Vol] 1.4 10*3/uL High 0 - 0.8 10*3/uL [place], [place] Monocytes/100 WBC (Bld) 13.2 % High 2 - 10 % [place], [place] Platelet mean volume 8.6 fL 7.4 - 10.4 fL [facility], (Bld) [Entitic vol] [place] Platelets (Bld) [#/Vol] 248 10*3/uL 140 - 440 10*3/uL [place], [place] RBC (Bld) [#/Vol] 3.72 10*6/uL Low 3.8 - 5.2 10*6/uL [place], [place] WBC (Bld) [#/Vol] 10.5 10*3/uL 3.6 - 10.7 10*3/uL [place] Test Performed by [facility], [address] [address] [address] Abdomen Pelvis W Contrast on 020 Ricky, [facility] Incoming [facility]iology [facility] - 1:12 PM EDT [place] Patient Name: EVER MCKEON ---CT--- Exam Date/Time 05/10/2020 12:12:[address] Abdomen/Pelvis w/ IV Contrast (IV Onl Ordering Physician [id number] ANUPAMA SAMER Accession Number [id number] CPT4 Codes 12856 (CT Abdomen/Pelvis w/ IV Contrast (IV Onl), Q996 7 (CT ISOVUE 370MG/[id number]&1) Reason For Exam Eval progression of perinephric hematoma/hemorrhage Report CT ABDOMEN AND PELVIS WITH IV CONTRAST CLINICAL: Evaluate progression of perinephric hematoma COMPARISON: CT abdomen and pelvis May 07, 2020 CT imaging of the abdomen and pelvis was performed fol lowing 75 mL of Isovue-370. Included lung bases show minimal atelectatic change. M oderate to large sized hiatal hernia is present. There a few diaphragma tic lymph nodes, unchanged. There is redemonstration of the cirrhotic appearance o f the liver. No discrete hepatic mass is appreciated. The gallbladder is absent. Splenomegaly is again noted. Multiple abdominal varice s are again noted. Recanalization of the umbilical vein. The adren als appear within limits. Few mesenteric and retroperitoneal enla rged lymph nodes are again seen. Pancreas appears within limits. There is redemonstration of the right renal 3.8 cm hyp odense mass with adjacent perinephric hematoma extending laterally and inferiorly. On image 82 of the current examination, the main componen t of the perinephric hematoma collection lateral to the kidney measures approximately 9.6 x 6.4 cm compared to approximately 9 .2 x 5.2 cm previously at the corresponding level. The left kidney appears unremarkable. The renal nephrograms are symmetric. The re is no hydronephrosis. Urinary bladder is incompletely disten ded however appears grossly unremarkable. Abdominal aorta is normal in caliber. There is atheros clerotic disease of the aorta and iliac distributions. Small amount of free fluid is seen within the lower pelvis. Varices are also seen wi thin the left hemipelvis. Osseous structures appear grossly intact. Mild degener ative changes of the lower lumbar spine and sacroiliac joints. IMPRESSION: Redemonstration of the hypodense right renal lesion wi th slight interval enlargement of the adjacent perinephric hemat shital collection within compared to examination of three days prior. Cirrhotic liver, changes of portal hypertension and sp lenomegaly. Report Dictated on Workstation: [id number] --- Final --- Dictated: 05/10/2020 1:03 pm Dictating Physician: MD GUEVARA BRIAN Signed Date and Time: 05/10/2020 1:11 pm Signed by: MD GUEVARA BRIAN Transcribed Date and Time: 05/10/2020 1:03 Patient Name: EVER MCKEON FIN: [place], [place] [id number] ---CT--- Exam Date/Time 05/10/2020 12:12: [address] Abdomen/Pelvis w/ IV Contrast (IV Onl Ordering Physician [id number] ALTMAN SAMER Accession Num [id number] CPT4 Codes 51936 (CT Abdomen/Pelvis w/ IV Contrast (IV Onl), Q9967 (CT ISOVUE 370MG/ML&[id number]&ML&1) Reason For Exam Eval progression of perinephric hematoma/hemorrhage Report CT ABDOMEN AND PELVIS WITH IV CONTRAST CLINICAL: Evaluate progression of perinephric hematoma COMPARISON: CT abd omen and pelvis May 07, 2020 CT imaging of the abdomen and pelvis was performed following 75 mL of Isovue-370. Included lung bases show minimal atelectatic change. Moderate to large sized hiatal hernia is present. Ther e a few diaphragmatic lymph nodes, unchanged. There is redemonstration of the cirrhotic appearance of the kelton er. No discrete hepatic mass is appreciated. The gallbladd er is absent. Splenomegaly is again noted. Multiple abdom inal varices are again noted. Recanalization of the umbilic al vein. The adrenals appear within limits. Few mesenteri c and retroperitoneal enlarged lymph nodes are again see n. Pancreas appears within limits. There is redemonstrati on of the right renal 3.8 cm hypodense mass with adjacent perinephric hematoma extending laterally and inferiorl y. On image 82 of the current examination, the main compo nent of the perinephric hematoma collection lateral to the kidney measures approximately 9.6 x 6.4 cm compared to approximately 9.2 x 5.2 cm previously at the correspon ding level. The left kidney appears unremarkable. The renal nephrograms are symmetric. There is no hydronephrosis. Urinary bladder is incompletely distended however appe ars grossly unremarkable. Abdominal aorta is normal in caliber. There is atherosclerotic disease of the aorta and iliac distributions. Small amount of free fluid is see n within the lower pelvis. Varices are also seen within the left hemipelvis. Osseous structures appear grossly int act. Mild degenerative changes of the lower lumbar spine an d sacroiliac joints. IMPRESSION: Redemonstration of the hypodense right renal lesion with slight interval enlargement of the adjacent perinephric hematoma collection within compared to examination of three day s prior. Cirrhotic liver, changes of portal hypertension and splenomegaly. Report Dictated on Workstation: [id number] --- Final --- Dictated: 05/10/2020 1:03 pm Dictati ng Physician: MD GUEVARA BRIAN Signed Date and Time: 05/10/2020 1:11 pm Signed by: MD GUEVARA BRIAN Transcr ibed Date and Time: 05/10/2020 1:03 Hepatic Function Panel on 05-10-2020 Albumin [Mass/Vol] 2.8 g/dL Low 3.5 - 5 g/dL [facility] [place], [place] ALP [Catalytic activity/Vol] 165 U/L High 38 - 126 U/L [place], [place] ALT [Catalytic activity/Vol] 16 U/L 0 - 34 U/L [place], [place] Comment on above: The ALT test is performed by an updated assay method. Please note that the referen ce intervals have been changed and are now sex spec ific. AST [Catalytic activity/Vol] 36 U/L 15 - 46 U/L [place], [place] Bilirubin Ql (U) 1.0 mg/dL 0.2 - 1.3 mg/dL [place], [place] Bilirubin.direct [Mass/Vol] 0.0 mg/dL 0 - 0.3 mg/dL [place], [place] Interpretation and review of Abnormal [place], [place] laboratory results Protein [Mass/Vol] 6.6 g/dL 6.3 - 8.2 g/dL [place], [place] Lipase on 05-10-2020 Lipase [Catalytic activity/Vol] 105 U/L 23 - 300 U/L [place], [place] Other on 05-10-2020 Test Performed by [address] [address] Interpretation and review of Abnormal [place], [place] laboratory results Test Performed by [address] [address] Sedimentation Rate on 05-10-2020 Sed Rate 68 mm/h High 0 - 20 mm/h [place], [place] US DOPPLER ABD/PEL/RETRO/LMTD on 2019 Ricky, [facility] Incoming Radiology Results From [facility] - 2:45 PM EDT [place], [place] Patient Name: EVER MCKEON ---Ultrasound--- Exam Date/Time 05/10/2020 14:23:24 EDT Exam US Art/Vein Abd/Pelvis/Scrotal Complete Ordering Physician [id number] PANTOJA Accession Number [id number] CPT4 Codes 81519 () Reason For Exam Eval for budd chiari Report US ABDOMEN WITH COLOR-FLOW AND SPECTRAL DOPPLER IMAGIN G CLINICAL INDICATION: 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 Splenic vein: Patent antegrade flow with normal spectr al waveform Main portal vein: Patent hepatopedal flow with normal spectral waveform Left portal vein: Patent hepatopedal flow with normal spectral waveform Right portal vein: Patent hepatopedal flow with normal spectral waveform Hepatic artery: Patent pulsatile flow with normal spec tral waveform. Resistive index = 0.79, borderline elevated. Hepatic veins: Poorly visualized Inferior vena cava: Patent antegrade flow with normal spectral waveform Other: No other abnormal findings. IMPRESSION: 1. Cirrhotic morphology of the liver. 2. Portal veins are patent with normal hepatopedal eileen w. 3. Hepatic artery is patent with borderline elevated r esistive index, which may be seen in the setting of hepatic cirrhosis or hepatic venous congestion among other possibilities. 4. Hepatic veins are poorly visualized, which may be d ue in part to difficulty of examination from patient body habitus al though venoocclusive disease is also possible in the proper c linical context. Report Dictated on --- Final --- Dictated: 05/10/2020 2:26 pm Dictating Physician: MD MASON JAMES Signed Date and Time: 05/10/2020 2:44 pm Signed by: MD MASON JAMES Transcribed Date and Time: 05/10/2020 2:26 Patient Name: EVER MCKEON FIN: [place], [place] [id number] ---Ultrasound--- Exam Date/Time 0 14:23:24 EDT Exam US Art/Vein Abd/Pelvis/Scrotal Compl ete Ordering Physician [id number] PANTOJA Accession Num [id number] CPT4 Codes 28992 () Reason For Exam Eval for budd chiari Report US ABDOMEN WITH COLOR-FLOW AND SPEC TRAL DOPPLER IMAGING CLINICAL INDICATION: Concern for Budd-Chiari TECHNIQUE: Ultrasonographic evaluation of the upper abdomen with color-flow and spectral Doppler evaluation of the hepatic and portal vasculature COMPARISON: CT from 05/10/2020 FINDINGS: Liver: The kelton er demonstrates heterogeneous echotexture with nodular contour. Splenic vein: Patent antegrade flow with norm al spectral waveform Main portal vein: Patent hepatopedal flow with normal spectral waveform Left portal vein: Patent hepatopedal flow with normal spectral waveform Right portal vein: Patent hepatopedal flow with normal spectral waveform Hepatic artery: Patent pulsatile eileen w with normal spectral waveform. Resistive index = 0.79, borderline elevated. Hepatic veins: Poorly visualized Inferior vena cava: Patent antegrade flow with normal spectral waveform Other: No other abnormal findings. IMPRESSION: 1. Cirrhotic morphology of the liver. 2. Portal veins are patent with normal hepatopedal flow. 3. Hepatic artery is patent with borderline elevated resistive index, which may be seen in the setting of hepatic cirrhosis or hepatic venous congestion among o ther possibilities. 4. Hepatic veins are poorly visualized, which may be due in part to difficulty of examination from patient body habitus although venoocclusive disease is also possible in the proper clinical context. Report Dictated on --- Final --- Dictat ed: 05/10/2020 2:26 pm Dictating Physician: MD MARLON, PAOLO LOZADA Signed Date and Time: 05/10/2020 2:44 pm Signed by: KANDICE GALLARDO MD, MARISA Transcribed Date and Time: 05/10/2020 2:26 Basic Metabolic Panel on 05-09-2020 Anion gap [Moles/Vol] 10 mmol/L [place], [place] Calcium [Mass/Vol] 8.9 mg/dL 8.4 - 10.4 mg/dL [place], [place] Chloride [Moles/Vol] 95 mmol/L Low 98 - 107 mmol/L [place] CO2 [Moles/Vol] 26 mmol/L 22 - 30 mmol/L [place] Creatinine [Mass/Vol] 0.62 mg/dL 0.52 - 1.25 mg/dL [place], [place] EGFR IF NonAfrican Chinese >90.0 >60 mL/min [place], [place] Comment on above: KDIGO guidelines provide the following GFR categories: Stage GFR(ml/min/1.73 m2) [place] G1 >=90 Normal or high G2 60-89 Mildly decreased* G3a 45-59 Mildly to moderate ly decreased G3b 30-44 Moderately to haris rely decreased G4 15-29 Severely decreased G5 <15 Kidney failure *Relative to young adult meron ha. In the absence of evidence o f kidney damage, neither GFR category G1 nor G2 fulfill t he criteria for CKD. The CKD-EPI equation is rajesh dated in individuals 18 years of age and older. Currently the best equation for estimating glomerular filtra tion rate (GFR) from serum creatinine in children is e Bedside Kumar equation. It is less accurate in patie nts with extremes of muscle mass, restriction of dietary protein, ingestion of creatine, extra-renal metabolism of cr eatinine, or treatment with medications that affect sofía l tubular creatinine secretion. GFR/1.73 sq M predicted mL/min/{1.73_m2} >60 mL/min [facility]- among blacks MDRD [place] (S/P/Bld) [Vol rate/Area] Glucose [Mass/Vol] 127 mg/dL High 70 - 100 mg/dL [place], [place] Interpretation and Abnormal [facility]- review of laboratory [place], [place] results Potassium [Moles/Vol] 3.2 mmol/L Low 3.5 - 5.1 [facility]- mmol/L [place] Sodium [Moles/Vol] 130 mmol/L Low 135 - 145 [facility]- mmol/L [place] Urea nitrogen [Mass/Vol] 11 mg/dL 7 - 20 mg/dL [place], [place] Test Performed by [facility], [address] [place], [place] [address] CBC Auto Differential on 05-09-2020 Absolute Baso # 0.0 10*3/uL 0 - 0.2 10*3/uL [place], [place] Absolute Neut # 9.8 10*3/uL High 1.8 - 7 10*3/uL [place], [place] Basophils/100 WBC (Bld) 0.2 % 0 - 2 % [place] Eosinophils (Bld) [#/Vol] 0.2 10*3/uL 0 - 0.5 10*3/uL [place], [place] Eosinophils/100 WBC (Bld) 1.4 % 1 - 6 % [facility], [place] Erythrocyte distribution 14.0 % 11.5 - 14.5 % [facility], width (RBC) [Ratio] [place] Granulocytes/100 WBC 74.8 % 40 - 80 % [facility], (Bld) [place] Hematocrit (Bld) [Volume 35.9 % 35 - 47 % [facility], fraction] [place] Hemoglobin (Bld) 12.1 g/dL 11.7 - 16 g/dL [facility], [Mass/Vol] [place] Interpretation and review Abnormal [facility], of laboratory results [place] Lymphocytes (Bld) [#/Vol] 1.8 10*3/uL 1 - 4.3 10*3/uL [facility], [place] Lymphocytes/100 WBC (Bld) 13.7 % Low 20 - 40 % [facility], [place] MCH (RBC) [Entitic mass] 30.1 pg 26 - 34 pg [facility], [place] MCHC (RBC) [Mass/Vol] 33.6 % 32 - 36 % [facility], [place] MCV (RBC) [Entitic vol] 89.3 fL 79 - 98 fL [place], [place] Monocytes (Bld) [#/Vol] 1.3 10*3/uL High 0 - 0.8 10*3/uL [facility], [place] Monocytes/100 WBC (Bld) 9.9 % 2 - 10 % [place] Platelet mean volume 7.9 fL 7.4 - 10.4 fL [facility], (Bld) [Entitic vol] [place] Platelets (Bld) [#/Vol] 264 10*3/uL 140 - 440 10*3/uL [facility], [place] RBC (Bld) [#/Vol] 4.02 10*6/uL 3.8 - 5.2 10*6/uL [facility], [place] WBC (Bld) [#/Vol] 13.0 10*3/uL High 3.6 - 10.7 10*3/uL [place] Test Performed by [facility], [address] [address] [place] [address] Hemoglobin and Hematocrit, Blood on Hematocrit (Bld) [Volume 33.9 % Low 35 - 47 % [facility]] [place] Hemoglobin (Bld) [Mass/Vol] 11.5 g/dL Low 11.7 - 16 g/d L [place], [place] Interpretation and review Abnormal Me [facility], of laboratory results [place] Test Performed by [facility], [facility], [facility] [place] [address] Add On Lab Test on 05-08-2020 Sodium [Moles/Vol] see comment [place], [place] Test Performed by [facility], [facility], [address] [address] cbc w/diff added. Manual diff not possible to be added on. Basic Metabolic Panel on 05-08-2020 Anion gap [Moles/Vol] 10 mmol/L [place], [place] Calcium [Mass/Vol] 8.9 mg/dL 8.4 - 10.4 mg/dL [place], [place] Chloride [Moles/Vol] 98 mmol/L 98 - 107 mmol/L [place] CO2 [Moles/Vol] 25 mmol/L 22 - 30 mmol/L [place], [place] Creatinine [Mass/Vol] 0.66 mg/dL 0.52 - 1.25 mg/dL [place], [place] EGFR IF NonAfrican Chinese >90.0 >60 mL/min [place], [place] Comment on above: KDIGO guidelines provide the following GFR categories: Stage GFR(ml/min/1.73 m2) [place] G1 >=90 Normal or high G2 60-89 Mildly decreased* G3a 45-59 Mildly to moderate ly decreased G3b 30-44 Moderately to haris rely decreased G4 15-29 Severely decreased G5 <15 Kidney failure *Relative to young adult lev el. In the absence of evidence o f kidney damage, neither GFR category G1 nor G2 fulfill t he criteria for CKD. The CKD-EPI equation is rajesh dated in individuals 18 years of age and older. Currently the best equation for estimating glomerular filtra tion rate (GFR) from serum creatinine in children is th e Bedside Kumar equation. It is less accurate in patie nts with extremes of muscle mass, restriction of dietary protein, ingestion of creatine, extra-renal metabolism of cr eatinine, or treatment with medications that affect sofía l tubular creatinine secretion. GFR/1.73 sq M predicted mL/min/{1.73_m2} >60 mL/min [facility] among blacks MDRD [place] (S/P/Bld) [Vol rate/Area] Glucose [Mass/Vol] 136 mg/dL High 70 - 100 mg/dL [facility]- [place], [place] Interpretation and Abnormal [facility]- review of laboratory [place] results Potassium [Moles/Vol] 3.3 mmol/L Low 3.5 - 5.1 [facility] mmol/L [place] Sodium [Moles/Vol] 132 mmol/L Low 135 - 145 [facility]- mmol/L [place] Urea nitrogen [Mass/Vol] 12 mg/dL 7 - 20 mg/dL [facility], [place] Test Performed by [facility], [address] [place], [place] [address] CBC Auto Differential on 05-08-2020 Erythrocyte distribution 14.0 % 11.5 - 14.5 % [facility], width (RBC) [Ratio] [place] Hematocrit (Bld) [Volume 37.5 % 35 - 47 % [facility], fraction] [place] Hemoglobin (Bld) 12.7 g/dL 11.7 - 16 g/dL [facility]- [place], [Mass/Vol] [place] Interpretation and review Abnormal [facility], of laboratory results [place] MCH (RBC) [Entitic mass] 30.6 pg 26 - 34 pg [facility], [place] MCHC (RBC) [Mass/Vol] 34.0 % 32 - 36 % [place], [place] MCV (RBC) [Entitic vol] 90.0 fL 79 - 98 fL [facility], [place] Platelet mean volume (Bld) 8.3 fL 7.4 - 10.4 fL [facility], [Entitic vol] [place] Platelets (Bld) [#/Vol] 297 10*3/uL 140 - 440 [facility], 10*3/uL [place] RBC (Bld) [#/Vol] 4.16 10*6/uL 3.8 - 5.2 [facility], 10*6/uL [place] WBC (Bld) [#/Vol] 17.3 10*3/uL High 3.6 - 10.7 [facility], 10*3/uL [place] Test Performed by [facility], [facility], [facility] [address] [place] [address] EKG 12 Lead on 05-08-2020 [facility] Test Date: 2020-05-07 Pat Name: Prateek schmid [facility], [place] Linda Department: 1A Room: [address] [place] [address] 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 : 1970 Requested By: MARISA PETERS Order Number: [id number] Reading MD: Regan lan Measurements Intervals [place] Rate: 101 P: 75 GA: 160 QR S: 34 QRSD: 86 T: -2 QT: 343 QTc: 445 Interpretive Statements Sinus tachycardia Electronically Signed On 05-08-2020 13:00:43 EDT by Regan García [facility] Incoming Cardiolo gy Results From [facility] - 05/08/2020 1:01 PM EDT [facility], [place] Test Date: 2020-05-07 Pat Name: Ever Mckeon Department: [facility] Room: [facility] 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, [facility], [place] [address] Manual Differential on 05-08-2020 Absolute Baso # 0.0 10*3/uL 0 - 0.2 10*3/uL [place], [place] Absolute Eos # 0.2 10*3/uL 0 - 0.5 10*3/uL [place], [place] Absolute Lymph # 1.2 10*3/uL 1.1 - 4.5 10*3/uL [place], [place] Absolute Sequoyah # 0.9 10*3/uL 0.2 - 1.1 10*3/uL [place], [place] Absolute Neut # 15.1 10*3/uL High 2.2 - 8.2 10*3/uL [place], [place] Bands 21 % [place], [place] Basophils 0 % 0 - 2 % [place], [place] Comment SLIDE SCANNED [place], [place] Eosinophils 1 % [place], [place] Interpretation and review Abnormal Me [facility] of laboratory results [place] Lymphocytes 7 % [place], [place] Monocytes 5 % [place], [place] RBC morphology finding NORMAL [facility] Nom (Bld) [place] Seg Neutrophils 66 % [place], [place] TOTAL CELLS COUNTED 100 [place], [place] Test Performed by [facility], [facility] [place] [address] , Urine on 05-08-2020 Beta HCG ( test) Ql (U) Negative Negative NA [place], [place] Comment on above: is the most common reason for HCG in urine, although choriocarcinoma, hydatidifor m mole, and certain nontropho- blastic malignancies also re sult in detectable urinary HCG levels. Sensitivity = 20mIU/ mL. Test Performed by [place] [address] [facility] [address] [place] [address] Add On Lab Test on 05-07-2020 Sodium [Moles/Vol] Accepted [place], [place] Comment on above: Specimen available & accepta ble for analysis. Test Performed by [facility], [place] [address] [address] [facility], [place] [address] Sodium [Moles/Vol] Accepted [place], [place] Comment on above: Specimen available & accepta ble for analysis. Test [facility], [facility] [address] [facility] [address] [place] [address] Basic Metabolic Panel on 05-07-2020 Anion gap [Moles/Vol] 9 mmol/L [place], [place] Calcium [Mass/Vol] 8.9 mg/dL 8.4 - 10.4 mg/dL [place], [place] Chloride [Moles/Vol] 96 mmol/L Low 98 - 107 mmol/L [place], [place] CO2 [Moles/Vol] 25 mmol/L 22 - 30 mmol/L [place], [place] Creatinine [Mass/Vol] 0.67 mg/dL 0.52 - 1.25 mg/dL [place], [place] EGFR IF NonAfrican Chinese >90.0 >60 mL/min [place], [place] Comment on above: KDIGO guidelines provide the following GFR categories: Stage GFR(ml/min/1.73 m2) [place] G1 >=90 Normal or high G2 60-89 Mildly decreased* G3a 45-59 Mildly to moderate ly decreased G3b 30-44 Moderately to haris rely decreased G4 15-29 Severely decreased G5 <15 Kidney failure *Relative to young adult lev el. In the absence of evidence o f kidney damage, neither GFR category G1 nor G2 fulfill t criteria for CKD. The CKD-EPI equation is rajesh dated in individuals 18 years of age and older. Currently the best equation for estimating glomerular filtra tion rate (GFR) from serum creatinine in children is [facility] Bedside Kumar equation. It is less accurate in patie nts with extremes of muscle mass, restriction of dietary protein, ingestion of creatine, extra-renal metabolism of cr eatinine, or treatment with medications that affect sofía l tubular creatinine secretion. GFR/1.73 sq M predicted mL/min/{1.73_m2} >60 mL/min [place], [place] among blacks MDRD (S/P/Bld) [Vol rate/Area] Glucose [Mass/Vol] 168 mg/dL High 70 - 100 mg/dL [place], [place] Potassium [Moles/Vol] 3.3 mmol/L Low 3.5 - 5.1 mmol/L [place], [place] Sodium [Moles/Vol] 130 mmol/L Low 135 - 145 mmol/L [place], [place] Urea nitrogen [Mass/Vol] 10 mg/dL 7 - 20 mg/dL [place], [place] Brain Natriuretic Peptide on 05-07-2020 Interpretation and review of Abnormal [place], [place] laboratory results Natriuretic peptide B (Bld) 383 pg/mL High 0 - 125 pg/mL [place], [place] [Mass/Vol] C-Reactive Protein on 05-07-2020 CRP [Mass/Vol] 232.3 mg/L High 0 - 6 mg/L [place], [place] Comment on above: . COVID-19 on 05-07-2020 SARS-CoV-2 Not Detected [place], [place] Expected Result: Not Detected _ Real-time, RT-PCR performed on the IOCS System by the [facility]. Negative results do not preclude SARS-CoV-2 infection and should not be used as the sole basis for treatment or other patient management decisions. This assay was developed by [employer] and distributed under an Emergency Use Authorization (EUA) granted by the FDA for the qualitative detection of SARS-CoV-2 nucleic acid. Test Performed by [facility], [address] [place] [address] Specimen Source Comment:Nasopharyngeal Swab CT Abdomen Pelvis W Contrast on 020 Patient Name: EVER MCKEON FIN: [place], [place] [id number] ---CT--- Exam Date/Time 05/07/2020 22:36: [address] Abdomen/Pelvis w/ IV Contrast (IV Onl Ordering Physician MD LORRAINE, MARISA [place] [phone] CPT4 Codes 32705 (CT Abdomen/Pelvis w/ IV Contrast (IV Onl), Q9967 (CT ISOVUE 370MG/[id number]&ML&1) Reason For Exam RUQ and RLQ pain Report CT ABDOMEN AND PELVIS WITH CONTRAST CLINIC AL INDICATION: RUQ and RLQ pain TECHNIQUE: CT scan of the abdomen and pelvis, with IV contrast. Multiplanar reformations. COMPARISON: None. FINDINGS: Abdomen: Visualized lung bases grossly clear. Moderate hiatal hernia. Gallbladder surgically absent. Liver demonstra shayne nodular margins without focal abnormality. Spleen enlarged, and multiple varices are noted in the upper abdomen and also in the left pelvis. Pancreas without significant abnormality. Ovoid hypodensity in right re nal midpole cortex measuring 2.5 x 3.8 cm, with perinephri c hemorrhage/hematoma extending inferolaterally and measuring approximately 6 x 10 cm in maximal cross-sectional diameter. Adrenal glands without significant abnormality. Pelvis: Bowel grossly unremarkable. Appendix not confidently identified. Tra ce amount of nonspecific, free peritoneal fluid or possib le blood in the pelvic cul-de-sac. No discrete abscess. Abdominal aorta is nonaneurysmal. Axial skeleton gross ly intact. Small, fat-containing umbilical hernia, which also can obtain some collateral vessels or varices.. IMPRESSION: 1. Ovoid, hypodense and possible complex cystic focus in right kidney, with adjacent perinephri c hemorrhage or hematoma. Follow-up to resolution sugges dori to exclude underlying neoplastic process. 2. Findings compatible with cirrhotic liver and sequelae of portal venous hypertension. 3. Hiatal hernia. Critical Test Results: Results were discussed with Dr. Sanchez in the ED on April, at approximately 2308 hours. Report Dictated on Workstation: [id number] --- Final --- Dictated: 05/07/2020 10:53 pm Dictating Physician: GERBER CARRILLO MD, WENDELL Signed Date and Time: 05/07/2020 11:08 pm Signed by: MD BEDOLLA WENDELL Transcribed Date and Sherrie e: 05/07/2020 11:03 Ricky, [facility] Incoming Radiology Results From [facility] - 11:09 PM EDT [place], [place] Patient Name: EVER MCKEON ---CT--- Exam Date/Time 05/07/2020 22:36:[address] Abdomen/Pelvis w/ IV Contrast (IV Onl Ordering Physician MD PETERS JAMES Accession Number [id number] CPT4 Codes 73829 (CT Abdomen/Pelvis w/ IV Contrast (IV Onl), Q996 7 (CT ISOVUE 370MG/ML&[id number]&ML&1) Reason For Exam RUQ and RLQ pain Report CT ABDOMEN AND PELVIS WITH CONTRAST CLINICAL INDICATION: RUQ and RLQ pain TECHNIQUE: CT scan of the abdomen and pelvis, with IV contrast. Multiplanar reformations. COMPARISON: None. FINDINGS: Abdomen: Visualized lung bases grossly clear. Moderate hiatal h ernia. Gallbladder surgically absent. Liver demonstrates nodular margins without focal abnor mality. Spleen enlarged, and multiple varices are noted in the upper abdomen and also in the left pelvis. Pancreas without significant abnormality. Ovoid hypodensity in right renal midpole cortex measur ing 2.5 x 3.8 cm, with perinephric hemorrhage/hematoma extending inf erolaterally and measuring approximately 6 x 10 cm in maximal cross-sec tional diameter. Adrenal glands without significant abnormality. Pelvis: Bowel grossly unremarkable. Appendix not confidently identified. Trace amount of nonspecific, free peritoneal fluid or possible blood in the pelvic cul-de-sac. No discrete abscess. Abdominal aorta is nonaneurysmal. Axial skeleton grossly intact. Small, fat-containing u mbilical hernia, which also can obtain some collateral vessels or varic es.. IMPRESSION: 1. Ovoid, hypodense and possible complex cystic focus in right kidney, with adjacent perinephric hemorrhage or hematoma. Foll ow-up to resolution suggested to exclude underlying neoplastic process. 2. Findings compatible with cirrhotic liver and sequel ae of portal venous hypertension. 3. Hiatal hernia. Critical Test Results: Results were discussed with Dr. Sanchez in the ED on April, at approximately 2308 hours. Report Dictated on Workstation: [id number] --- Final --- Dictated: 05/07/2020 10:53 pm Dictating Physician: MD BEDOLLA WENDELL Signed Date and Time: 05/07/2020 11:08 pm Signed by: MD BEDOLLA WENDELL Transcribed Date and Time: 05/07/2020 11:03 Hemogram (CBC) on 05-07-2020 Erythrocyte distribution 14.0 % 11.5 - 14.5 % [facility]- [place], width (RBC) [Ratio] [place] Hematocrit (Bld) [Volume 37.2 % 35 - 47 % [facility]- [place], fraction] [place] Hemoglobin (Bld) 12.6 g/dL 11.7 - 16 g/dL [facility], [Mass/Vol] [place] Interpretation and review Abnormal [facility], of laboratory results [place] MCH (RBC) [Entitic mass] 30.3 pg 26 - 34 pg [place], [place] MCHC (RBC) [Mass/Vol] 34.0 % 32 - 36 % [place], [place] MCV (RBC) [Entitic vol] 89.1 fL 79 - 98 fL [place], [place] Platelet mean volume (Bld) 8.4 fL 7.4 - 10.4 fL [facility], [Entitic vol] [place] Platelets (Bld) [#/Vol] 325 10*3/uL 140 - 440 [facility], 10*3/uL [place] RBC (Bld) [#/Vol] 4.18 10*6/uL 3.8 - 5.2 [facility], 10*6/uL [place] WBC (Bld) [#/Vol] 17.7 10*3/uL High 3.6 - 10.7 [facility], 10*3/uL [place] Test Performed by [facility], [place] [address] [place] [address] Hepatic Function Panel on 05-07-2020 Albumin [Mass/Vol] 3.0 g/dL Low 3.5 - 5 g/dL [place], [place] ALP [Catalytic activity/Vol] 181 U/L High 38 - 126 U/L [place], [place] ALT [Catalytic activity/Vol] 21 U/L 0 - 34 U/L [place], [place] Comment on above: The ALT test is performed by an updated assay method. Please note that the referen ce intervals have been changed and are now sex spec ific. AST [Catalytic activity/Vol] 37 U/L 15 - 46 U/L [place], [place] Bilirubin Ql (U) 1.1 mg/dL 0.2 - 1.3 mg/dL [place], [place] Bilirubin.direct [Mass/Vol] 0.0 mg/dL 0 - 0.3 mg/dL [place], [place] Interpretation and review of Abnormal [place], [place] laboratory results Protein [Mass/Vol] 7.3 g/dL 6.3 - 8.2 g/dL [place], [place] Lipase on 05-07-2020 Lipase [Catalytic activity/Vol] 111 U/L 23 - 300 U/L [place], [place] Other on 05-07-2020 Test Performed by [facility], [facility] [place] [address] Interpretation and review of Abnormal [place], [place] laboratory results Test Performed by [facility], [facility] [place] [address] Test Performed by [facility], [facility] [place] [address] Troponin on 05-07-2020 Troponin I.cardiac [Mass/Vol] ng/mL 0 - 0.034 n g/mL [place], [place] Comment on above: . Urinalysis on 05-07-2020 Appearance (U) Clear Clear [place], [place] Comment on above: . Bacteria, UA Few Abnormal Negative /[HPF] [place], [place] Comment on above: . Bilirubin Urine Negative Negative mg/dL [place], [place] Comment on above: . Color (U) Yellow Lt. Yellow [place], [place] Comment on above: . Glucose, Ur Normal Normal (<70) mg/dL [place], [place] Comment on above: . Hyaline Casts, UA Negative Negative /[LPF] [place], [place] Comment on above: . Interpretation and review of Abnormal [place], [place] laboratory results Ketones Ql (U) Negative Negative mg/dL [place], [place] Comment on above: . LEUKOCYTES, UA 25 Abnormal Negative Mario/uL [place], [place] Comment on above: . Mucous Threads Few Negative /[LPF] [place], [place] Comment on above: . Nitrite, Urine Negative Negative [place], [place] Comment on above: . Occult Blood,Urine Negative Negative mg/dL [place], [place] Comment on above: . pH (U) 6.5 [pH] [place], [place] Comment on above: . Protein (U) [Mass/Vol] Negative Negative mg/dL [place], [place] Comment on above: . RBC (U) [#/Vol] 0-2 0 - 2 /[HPF] [place], [place] Comment on above: . Specific [place], Urine 1.010 [place], [place] Comment on above: . Squam Epithel, UA 3-5 3 - 5 /[HPF] [place], [place] Comment on above: . Urobilinogen, Urine 12 mg/dL Abnormal Normal (0-1) [place], [place] Comment on above: . WBC, UA 3-5 0 - 5 /[HPF] [place], [place] Comment on above: . Test Performed by [facility], [facility] [address] [address] [place] [address] XR CHEST PORTABLE on 05-07-2020 Patient Name: EVER MCKEON FIN: [place], [place] [id number] ---Diagnostic Radiology--- Exam Date/Time 05/07/2020 21:27:00 EDT Exam CR Chest Portable Orderin g Physician [id number] NEIL OLSEN Accession Number [id number] CPT4 Codes 47896 () Reason For Exam sob, cough and fever Report Portable chest 05/07/2020: Clini shanna Information: Cough, fever. Findings: A single AP zeyad ble view of the chest was obtained at 2104 hours. No prior studies for comparison. The trachea is midline. The he art is not enlarged. No focal areas of consolidation or vo lume loss are seen. There are no pleural effusions. The pulmonary vasculature does not appear congested. The visualized bony structures are intact. Impression: No acute process. Report Dictated on Workstation: [id number] --- Final --- Dictated: 05/07/2020 9:25 pm Dictati ng Physician: MD KIMBROUGH RISA Signed Date and Time: 2019 9:25 pm Signed by: MD KIMBROUGH RISA Transcribed Date and Time: 05/07/2020 9:25 [facility] - 9:27 PM EDT [place], [place] Patient Name: EVER MCKEON ---Diagnostic Radiology--- Exam Date/Time 05/07/2020 21:27:00 EDT Exam CR Chest Portable Ordering Physician [id number] -SANCHEZNEIL Accession Number [id number] CPT4 Codes 24170 () Reason For Exam sob, cough and fever Report Portable chest 05/07/2020: Clinical Information: Cough, fever. Findings: A single AP portable view of the chest was o btained at 2104 hours. No prior studies for comparison. The trachea is midline. The heart is not enlarged. No focal areas of consolidation or volume loss are seen. There are no pl eural effusions. The pulmonary vasculature does not appear congested. T he visualized bony structures are intact. Impression: No acute process. Report Dictated on --- Final --- Dictated: 05/07/2020 9:25 pm Dictating Physician: MD KIMBROUGH RISA Signed Date and Time: 05/07/2020 9:25 pm Signed by: MD KIMBROUGH RISA Transcribed Date and Time: 05/07/2020 9:25 Coronavirus 2019 on 04-26-2020 COVID 19 Result ROOFER GYPSUM Negative Normal Negative for COVID19 ( SARS CoV2) [facility] by PCR. Comment on above: Result Comment: This test wa s developed and its performance characteristics determined by [facility]'s [facility] [place]. This test has been authorized by FDA under an Emergency Us e Authorization (EUA). This test has been validated in accordance with the FDA's Guidance Document Policy for Diagnostics Testing in Laboratories Certified to Perform High Complexity Testing under CLIA prior to Emergency use Authorization for Coronavir us Disease 2019 during the Public Health Emergency issued on December 23, 2019. Performed By: #### COVID ### # [facility] [address] [facility] [address] [facility] [phone] [facility] [address] [place], [place] [address] COVID 19 Source [facility]OOFER GYPSUM Nasopharyngeal Swab Normal [facility] Comment on above: Performed By: #### COVID ### # [facility] [address] [facility] [phone] [facility] [address] [place], [place] [address] ED NOTE on 04-26-2020 ED NOTE HNO ID: [id number] Normal Berta sorensen Author: Carla (Rn) BECKA [place] Service: ? Author Type: Registered Nurse Type: ED Notes Filed: 04/26/2020 5:11 PM Note Text: Unable to eat for past 3 days, drinking ok. Fevers x 4 days 100-103.4, headache, eye pain, ear ringing, muscle cramps. Suppos ed to be getting her son back from foster care Wednesday wants to make dawna e she doesn't have covid and needs something for nausea. ED PROV NOTE on 04-26-2020 ED PROV NOTE HNO ID: [id number] Normal Berta sorensen Author: Thaddeus Alexis) Ernesto Service: ? Author Type: Physician Balance Recesser Type: ED Provider Notes Filed: 04/26/2020 9:20 PM Note Text: ED Provider Note Patient Name: Ever Mckeon SERVICE DATE: 04/26/20 History Patient presents with: Covid19 Concern 49-year-old female presents emergency department with concerns of having chronic virus. Patient states that she is being reunit ed with her son who is currently in foster care on Wednesday and wants to juan e sure she doesn't have chronic virus. States that she has had fevers, ch ills, body aches as well as a decrease in appetite. States that she's been able to keep liquids down. Denies any chest pain or shortness of br eath. States she has a slight cough but no difficulty breathing. 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 PAST MEDICAL HISTORY Diagnosis Date - Depression with anxiety 02/03/2018 - IBS (irritable bowel syndrome) - Non morbid obesity 11/16/2017 - Primary osteoarthritis of left knee 11/16/2017 PAST SURGICAL HISTORY Procedure Laterality Date - ANKLE fx with hardware - CHOLECYSTECTOMY HX - HAND SURGERY HX Right reconstruction - ORTHOPEDICS SURGERY HX rt shoulder - PAST SURGICAL HISTORY OF x2 - PAST SURGICAL HISTORY OF tubal ligation FAMILY HISTORY Problem Relation Age of Onset - Hypertension Mother - Hyperlipidemia Mother - Cancer Mother cervical - other (Fibromyalgia) Mother - COPD Father Social History Tobacco Use - Smoking status: Former Smoker Packs/day: 0.50 Years: 5.00 Pack years: 2.50 Types: Cigarettes Last attempt to quit: 11/02/2017 Years since quittin.4 - Smokeless tobacco: Never Used - Tobacco comment: quit 17 months ago Substance and Sexual Activity - Alcohol use: Yes Comment: social - Drug use: No - Sexual activity: Never ALLERGIES Allergen Reactions - Vicodin [Hydrocodon* GI Upset Review of Systems Constitutional: Positive for fever. HENT: Negative. Respiratory: Positive for cough. Negative for shortnes s of breath. Cardiovascular: Negative. Gastrointestinal: Negative. Genitourinary: Negative. Musculoskeletal: Positive for myalgias. Negative for b ack pain and neck pain. Skin: Negative. Negative for rash and wound. Neurological: Negative for dizziness, syncope, weaknes s, light-headedness and headaches. Psychiatric/Behavioral: Negative. Physical Exam BP 110/58 Pulse 89 Temp (Src) 100.1 (Oral) Resp 16 Ht 5' 7 (1.70m) Wt 250 lb (113.4kg) SpO2 95% LMP 018 BMI 39.15 kg/(m2). O2 Therapy: Room Air Physical Exam Vitals signs and nursing note reviewed. Constitutional: General: She is not in acute distress. Appearance: Normal appearance. She is normal weight. S he is not ill-appearing or toxic-appearing. HENT: Head: Atraumatic. Nose: Nose normal. Mouth/Throat: Mouth: Mucous membranes are moist. Eyes: Conjunctiva/sclera: Conjunctivae normal. Neck: Musculoskeletal: Normal range of motion. Cardiovascular: Rate and Rhythm: Normal rate and regular rhythm. Pulses: Normal pulses. Heart sounds: Normal heart sounds. Pulmonary: Effort: Pulmonary effort is normal. No respiratory dis tress. Breath sounds: Normal breath sounds. No wheezing. Musculoskeletal: Normal range of motion. Skin: General: Skin is warm. Capillary Refill: Capillary refill takes less than 2 s econds. Neurological: General: No focal deficit present. Mental Status: She is alert and oriented to person, pl ahmet, and time. Psychiatric: Mood and Affect: Mood normal. Behavior: Behavior normal. Thought Content: Thought content normal. Judgment: Judgment normal. Diagnostic Testing ED Labs Ordered and Reviewed 2018 CORONAVIRUS Procedures ED Course / Clinical Impression Clinical Impressions as of Apr 26 2116 Viral illness Acute nonintractable headache, unspecified headache ty pe Nausea MDM / Disposition / Plan MDM Clinically and hemodynamically stable at time of disch arge. Test is pending. Patient does not require further workup at th is time and feels comfortable with discharge plan. Advised to return her e if symptoms change or worsen and to follow-up with primary care do ctor. The patient was DISCHARGED: Counseled patient odellin g suspected diagnosis AND need for follow-up. Discharged home with verbal and written instructions. They were instructed to return as needed for persistent or worsening symptoms or any new concerns. Condition at time of disposition: stable SIGNATURE: ROLAND Wallace (Pa) 04/26/202119 CBC With Platelet and Differential on 0 02-15-2019 Anisocytosis Ql (Bld) 1+ Normal [facility] Comment on above: Performed By: #### CBCWD ### # [facility] [address] [place] [address] Hypochromia 1+ Normal [facility] Comment on above: Performed By: #### CBCWD ### # [facility] [address] [place] [address] Microcytic 1+ Normal [facility] Comment on above: Performed By: #### CBCWD ### # [facility] r [address] [place] [address] Basophils #/vol (Bld) 0.0 10*3/uL Normal 0.0-0.2 [facility] Comment on above: Performed By: #### CBCWD ### # [facility] r [address] [place] [address] Basophils/100 WBC (Bld) 1.1 % Normal [facility] Comment on above: Performed By: #### CBCWD ### # [facility] r [address] [place] [address] Eosinophils #/vol (Bld) 0.2 10*3/uL Normal 0.0-0.7 [facility] Comment on above: Performed By: #### CBCWD ### # [facility] r [address] [place] [address] Eosinophils/100 WBC (Bld) 5.6 % Normal [facility] Comment on above: Performed By: #### CBCWD ### # [facility] r [address] [place] [address] Erythrocyte distribution 17.3 % Critically high 11.5-14.5 [facility] width Ratio (RBC) Center Comment on above: Performed By: #### CBCWD ### # [facility] [address] [place] [address] Hematocrit Volume Fraction (Bld) 29.4 % Low 37.0-47. 0 [facility] Comment on above: Performed By: #### CBCWD ### # [facility] [address] [place] [address] Hemoglobin mass conc (Bld) 9.6 g/dL Low 12.0-16.0 [facility] Comment on above: Performed By: #### CBCWD ### # [facility] [address] [place] [address] Lymphocytes #/vol (Bld) 1.2 10*3/uL Normal 1.0-4.8 [facility] Comment on above: Performed By: #### CBCWD ### # [facility] [address] [place] [address] Lymphocytes/100 WBC (Bld) 27.8 % Normal [facility] Comment on above: Performed By: #### CBCWD ### # [facility] [address] [place] [address] MCH Entitic mass (RBC) 24.2 pg Low 27.0-31.3 [facility] Comment on above: Performed By: #### CBCWD ### # [facility] [address] [place] [address] MCHC mass conc (RBC) 32.7 % Low 33.0-37.0 [facility] Comment on above: Performed By: #### CBCWD ### # [facility] r [address] [place] [address] MCV Entitic volume (RBC) 74.1 fL Low 82.0-100.0 [facility] Comment on above: Performed By: #### CBCWD ### # [facility] [address] [place] [address] Monocytes #/vol (Bld) 0.5 10*3/uL Normal 0.2-0.8 [facility] Comment on above: Performed By: #### CBCWD ### # [facility] [address] [place] [address] Monocytes/100 WBC (Bld) 12.4 % Normal [facility] Comment on above: Performed By: #### CBCWD ### # [facility] [address] [place] [address] Neutrophils #/vol (Bld) 2.2 10*3/uL Normal 1.4-6.5 [facility] Comment on above: Performed By: #### CBCWD ### # [facility] [address] [place] [address] Neutrophils/100 WBC (Bld) 53.1 % Normal [facility] Comment on above: Performed By: #### CBCWD ### # [facility] [address] [place] [address] Platelets #/vol (Bld) 154 10*3/uL Normal 130-400 [facility] Comment on above: Performed By: #### CBCWD ### # [facility] [address] [place] [address] RBC #/vol (Bld) 3.97 10*6/uL Low 4.20-5.40 [facility] Comment on above: Performed By: #### CBCWD ### # [facility] [address] [place] [address] WBC #/vol (Bld) 4.2 10*3/uL Low 4.8-10.8 [facility] Comment on above: Performed By: #### CBCWD ### # [facility] [address] [place] [address] Comprehensive Metabolic Panel on 2018 Albumin mass conc 3.6 g/dL Normal 3.5-4.6 [facility] Comment on above: Result Comment: Effective: New reference range for this analyte has been established. Performed By: #### CMP #### [facility] [address] [place] [address] ALP enzyme act/vol 189 U/L Critically high 40-130 [facility] Comment on above: Performed By: #### CMP #### [facility] r [address] [place] [address] ALT enzyme act/vol 49 U/L Critically high 0-33 [facility] Comment on above: Performed By: #### CMP #### [facility] r [address] [place] [address] Anion gap molar conc 9 mmol/L Normal 9-15 [facility] Comment on above: Result Comment: Effective: New reference range for this analyte has been established. Performed By: #### CMP #### [facility] [address] [place] [address] AST enzyme act/vol 51 U/L Critically high 0-35 [facility] Comment on above: Performed By: #### CMP #### [facility] [address] [place] [address] Bilirubin mass conc 0.3 mg/dL Normal 0.2-0.7 [facility] Comment on above: Result Comment: Effective: New reference range for this analyte has been established. Performed By: #### CMP #### [facility] [address] [place] [address] Calcium mass conc 8.9 mg/dL Normal 8.5-9.9 [facility] Comment on above: Result Comment: Effective: New reference range for this analyte has been established. Performed By: #### CMP #### [facility] [address] [place] [address] Chloride molar conc 107 mmol/L Normal 95-107 [facility] Comment on above: Result Comment: Effective: New reference range for this analyte has been established. Performed By: #### CMP #### [facility] r [address] [place] [address] CO2 molar conc 25 mmol/L Normal 20-31 [facility] Comment on above: Result Comment: Effective: New reference range for this analyte has been established. Performed By: #### CMP #### [facility] r [address] [place] [address] Creatinine mass conc 0.42 mg/dL Low 0.50-0.90 [facility] Comment on above: Performed By: #### CMP #### [facility] [address] [place] [address] GFR/1.73 sq M predicted among mL/min/{1.73_m2} Normal >60 [facility] (S/P/Bld) Comment on above: Result Comment: >60 mL/min/1 .73m2 EGFR, calc. for ages 18 and older using the MDRD formula (not corrected for weight), is valid for stable renal function. Performed By: #### CMP #### [facility] [address] [place] [address] GFR/1.73 sq M.predicted MDRD mL/min/{1.73_m2} Normal >60 [facility] vol rate/area Center Comment on above: Result Comment: >60 mL/min/1 .73m2 EGFR, calc. for ages 18 and older using the MDRD formula (not corrected for weight), is valid for stable renal function. Performed By: #### CMP #### [facility] r [address] [place] [address] Globulin mass conc (S) 3.4 g/dL Normal 2.3-3.5 [facility] Comment on above: Performed By: #### CMP #### [facility] r [address] [place] [address] Glucose mass conc 90 mg/dL Normal 70-99 [facility] Comment on above: Result Comment: Effective: New reference range for this analyte has been established. Performed By: #### CMP #### [facility] [address] [place] [address] Potassium molar conc 4.3 mmol/L Normal 3.4-4.9 [facility] Comment on above: Result Comment: Effective: New reference range for this analyte has been established. Performed By: #### CMP #### [facility] r [address] [place] [address] Protein mass conc 7.0 g/dL Normal 6.3-8.0 [facility] Comment on above: Result Comment: Effective: New reference range for this analyte has been established. Performed By: #### CMP #### [facility] r [address] [place] [address] Sodium molar conc 141 mmol/L Normal 135-144 [facility] Comment on above: Result Comment: Effective: New reference range for this analyte has been established. Performed By: #### CMP #### [facility] r [address] [place] [address] Urea nitrogen mass conc 14 mg/dL Normal 6-20 [facility] Comment on above: Performed By: #### CMP #### [facility] r [address] [place] [address] Creatine Kinase on 02-15-2019 CK enzyme act/vol 70 U/L Normal 0-170 [facility] Comment on above: Performed By: #### CPK #### [facility] r [address] [place] [place] [address] Culture, Blood 2 on 02-15-2019 Culture, Blood 2 ORDERED BY: BRENT YESSI Normal [facility] SOURCE: Blood COLLECTED: 02/15/19 10:51 Center ANTIBIOTICS AT BARRIE.: RECEIVED : 02/15/19 10:53 Culture, Blood 2 FINAL 02/20/19 12:15 No growth after 5 days of incubation. Comment on above: Performed By: #### CXBL2 ### # [facility] [address] [facility] [address] Troponin on 02-15-2019 Troponin I.cardiac mass conc ng/mL Normal 0.000-0.01 [facility] Comment on above: Result Comment: Methodology by Troponin T. Performed By: #### TROP #### [facility] r [address] [facility] [address] XR CHEST (2 VW) on 02-15-2019 XR CHEST (2 VW) EXAMINATION: XR CHEST (2 VW) Normal [facility] CLINICAL HISTORY: cough . Ce nter COMPARISONS: None available. FINDINGS: Frontal and latera l views the chest were obtained. The heart is not enlarged. Mediastinum is not widened or shifted. The aorta is not dilated. There is incidental small hiatal hernia behind th e heart. There is no acute process in the lungs. The chest wall is unremarkable. CONCLUSION: NO ACUTE CARDIOPULMONARY ABNORMALITY. Interpreted by: Tello Calle MD Signed by: Tello Calle MD 02/15/19 Final result proBNP on 02-15-2019 Natriuretic peptide B mass conc (Bld) 12 pg/mL Normal [facility] Comment on above: Result Comment: NT-pro BNP A CUTE Interpretive Guidelines: Age Cutoff for Heart Failure Less than 50 yrs 450 pg/mL 50-75 yrs 900 pg/mL Greater than 75 yrs 1800 pg/ mL NT-pro BNP NON-ACUTE Interpr etive Guidelines: Age Reference Range Less than 74 yrs 0-125 pg/mL Greater than 74 yrs 0-450 pg /mL Other possible causes of an elevated NT-proBNP include: cardiac ischemia, acute briana nary syndrome, COPD, pneumonia, atrial fibrillation, pulmona ry emboli, pulmonary hypertension, pericarditis Reference: Fredy Cabrera, et al. NT-proBN P testing for diagnosis and short-term prognosis in acut e destabilized HF: an international pooled analysis of 1256 trisha ents. Heart Journal. 2006;27:330-337 Performed By: #### BNPPR ### # [facility] [address] [place] [address] Hemoglobin A1c on 01-19-2019 Hemoglobin A1c/Hemoglobin.total mass 5.4 % Normal 4.8- 5.9 [facility] (d) Center Comment on above: Performed By: #### A1C #### [facility] [address] [place] [address] XR LUMBAR SPINE (MIN 4 VIEWS) on 2018 XR LUMBAR SPINE (MIN EXAMINATION: XR LUMBAR SPINE (MIN 4 VIEWS) Nor mal [facility] 4 VIEWS) CLINICAL HISTORY: M54.31 Right sided sciatica ICD10 Center COMPARISON: none FINDINGS: Six views of the l umbar spine including oblique views are submitted. There are 5 lumbar type vertebrae. No acute fractures. Disk spaces are intact No significant spondylolisthesis. There are s ome degenerative changes of posterior facets of lower lumbar spine. The SI joints are unremarkable. IMPRESSION NO ACUTE FRACTURE. If there are findings of radiculopathy then consider M RI to further evaluate Interpreted by: Vinicius Brewer MD Signed by: Vinicius Brewer MD 01/19/19 Final result HIV-1,2 Combo Ag/Ab, Reflexive Panel on 01-04-2019 HIV 1,2 Combo Antigen/Antibody Negative Normal Negative [facility] Comment on above: Order Comment: CALL doctor L 8832 tel. [phone], Please fax results to [phone] Result Comment: The specimen was non-reactive for HIV-1 and HIV-2 antibodies, and p24 antigen. Based on this non-r eactive screen result, further reflexive testing was not indicated and was, t herefore, not performed INTERPRETIVE INFORMATION: HI V-1,2 Combo Ag/Ab EIA, w/Reflex This assay should not be use d for blood donor screening, associated re-entry protocols, or for screening Human Cells, Tissues, and Cellular and Tissue-Based Products (HCT/P ). Performed by BHARATI lozada, [address] [facility] [address] [email or web address], Hugo Garcia do, MD - Lab. Director Glucose on 01-02-2019 Glucose mass conc 93 mg/dL Normal 70-99 [facility] Comment on above: Order Comment: CALL doctor Chin 8055 tel. [phone], Please fax results to [phone] Result Comment: Effective: New reference range for this analyte has been established. Hepatitis Acute Panel on 01-02-2019 Protein mass conc see below Normal [facility] Comment on above: Order Comment: CALL doctor Chin 8055 tel. [phone], Please fax results to [phone] Result Comment: The acute he patitis panel is negative. There is no evidence of acute hepatitis A, B, C. Hepatitis A Antibody (IgM) Interp Non-reactive [facility] Comment on above: Order Comment: CALL doctor Chin 8055 tel. [phone], Please fax results to [phone] Hepatitis B Core Ab IgM Interp Non-reactive [facility] Comment on above: Order Comment: CALL doctor L 8055 tel. [phone], Please fax results to [phone] Hepatitis B Surface Ag Interp Non-reactive [facility] Comment on above: Order Comment: CALL doctor L 8055 tel. [phone], Please fax results to [phone] Hepatitis C Antibody Interp Non-reactive [facility] Comment on above: Order Comment: CALL doctor L 8055 tel. [phone], Please fax results to [phone] Liver Panel on 01-02-2019 Albumin mass conc 4.0 g/dL Normal 3.5-4.6 [facility] Comment on above: Order Comment: CALL doctor Chin 8055 tel. [phone], Please fax results to [phone] Result Comment: Effective: New reference range for this analyte has been established. ALP enzyme act/vol 179 U/L Critically high 40-130 [facility] Comment on above: Order Comment: CALL doctor L 8055 tel. [phone], Please fax results to [phone] ALT enzyme act/vol 50 U/L Critically high 0-33 [facility] Comment on above: Order Comment: CALL doctor L 8055 tel. [phone], Please fax results to [phone] AST enzyme act/vol 63 U/L Critically high 0-35 [facility] Comment on above: Order Comment: CALL doctor L 8055 tel. [phone], Please fax results to [phone] Bilirubin Indirect see below Normal 0.0-0.6 [facility] Comment on above: Order Comment: CALL doctor L 8055 tel. [phone], Please fax results to [phone] Result Comment: Indirect Duarte irubin cannot be calculated since Total Bilirubin and/or Direct Bilirubin is b elow measurable range. Bilirubin mass conc 0.5 mg/dL Normal 0.2-0.7 [facility] Comment on above: Order Comment: CALL doctor L 8055 tel. [phone], Please fax results to [phone] Result Comment: Effective: New reference range for this analyte has been established. Bilirubin.direct mass conc mg/dL Normal 0.0-0.4 M [facility] Comment on above: Order Comment: CALL doctor L 8055 tel. [phone], Please fax results to [phone] Result Comment: Effective: New reference range for this analyte has been established. Protein mass conc 7.5 g/dL Normal 6.3-8.0 [facility] Comment on above: Order Comment: CALL doctor L 8055 tel. [phone], Please fax results to [phone] Result Comment: Effective: New reference range for this analyte has been established. Vital Signs Date Time Vital Sign Value Performing Clinician Facilit y 12-22-2022 SaO2% (BldA) [Mass 93 % APULO GARCIA Gigi Lopez maira 20:22-0500 fraction] [facility] Comment on above: Performed By: #### [id number] ## ## Gigi [facility],[address] [place] [address] 11-02-[address] MUSTAPHA WOODWARD MD [facility] 06:59-0500 Location 11-02-[address] MUSTAPHA WOODWARD MD [facility] 06:59-0500 Method 11-02-[address] MUSTAPHA WOODWARD [facility] 06:59-0500 [degF] 11-02-2022 Diastolic Blood [address] MUSTAPHA WOODWARD MD [facility] 06:59-0500 Pressure Non-Invasive 11-02-2022 Heart rate 78 /min DR MUSTAPHA WOODWARD MD [facility] 06:59-0500 11-02-2022 Mean blood pressure 97 mm[Hg] DR MUSTAPHA WOODWARD MD [facility] 06:59-0500 11-02-2022 Respiratory rate 18 /min DR MUSTAPHA WOODWARD [facility] 06:59-0500 11-02-2022 Systolic Blood [address] MUSTAPHA WOODWARD MD [facility] 06:59-0500 Pressure Non-Invasive 11-02-[address] MUSTAPHA WOODWARD MD [facility] 00:54-0500 [degF] 11-02-2022 Diastolic Blood [address] MUSTAPHA WOODWARD MD [facility] 00:54-0500 Pressure Non-Invasive 11-02-2022 Heart rate 68 /min DR MUSTAPHA WOODWARD MD [facility] 00:54-0500 11-02-2022 Systolic Blood [address] MUSTAPHA WOODWARD MD [facility] 00:54-0500 Pressure Non-Invasive 11-01-[address] MUSTAPHA WOODWARD MD [facility] 21:140500 [degF] 11-01-2022 Diastolic Blood [address] MUSTAPHA WOODWARD MD [facility] 21:140500 Pressure Non-Invasive 11-01-2022 Heart rate 64 /min DR MUSTAPHA WOODWARD MD [facility] 21:140500 11-01-2022 Respiratory rate 18 /min DR MUSTAPHA WOODWARD MD [facility] 21:140500 11-01-2022 Systolic Blood [address] MUSTAPHA WOODWARD MD [facility] 21:140500 Pressure Non-Invasive 11-01-2022 Respiratory rate 17 /min DR MUSTAPHA WOODWARD [facility] 14:280500 10-31-2022 Body height 165.[address] MUSTAPHA WOODWARD MD [facility] 01:250500 10-31-2022 Body weight 128.[address] MUSTAPHA WOODWARD MD [facility] 01:250500 10-31-2022 Body weight 47.29 kg/m2 DR MUSTAPHA WOODWARD MD [facility] 01:250500 10-07-2022 Body temperature 98.42 BENSON GARCIA MD [facility] 11:0500 [degF] 10-07-2022 Diastolic Blood 54 1 BENSON GARCIA MD [facility] 11:050500 Pressure Non-Invasive 10-07-2022 Heart rate 78 /min BENSON GARCIA MD [facility] 11:05-0500 10-07-2022 Reason For Taking BENSON GARCIA MD [facility] 11:05-0500 VItal Signs 10-07-2022 Respiratory rate 18 /min BENSON GARCIA MD [facility] 11:05-0500 10-07-2022 Systolic Blood 100 1 BENSON GARCIA MD [facility] 11:05-0500 Pressure Non-Invasive 10-07-2022 Body temperature 98.6 [degF] BENSON GARCIA MD [facility] 02:52-0500 10-07-2022 Diastolic Blood 68 1 BENSON GARCIA MD [facility] 02:52-0500 Pressure Non-Invasive 10-07-2022 Heart rate 71 /min BENSON GARCIA MD [facility] ital 02:52-0500 10-07-2022 Respiratory rate 18 /min BENSON GARCIA MD [facility] 02:52-0500 10-07-2022 Systolic Blood 133 1 BENSON GARCIA MD [facility] 02:52-0500 Pressure Non-Invasive 10-06-2022 Body temperature 97.88 BENSON GARCIA MD [facility] 22:45-0500 [degF] 10-06-2022 Diastolic Blood 67 1 BENSON GARCIA MD [facility] 22:45-0500 Pressure Non-Invasive 10-06-2022 Heart rate 70 /min BENSON GARCIA MD [facility] ital 22:45-0500 10-06-2022 Reason For Taking BENSON GARCIA MD [facility] 22:45-0500 VItal Signs 10-06-2022 Respiratory rate 18 /min BENSON GARICA MD [facility] 22:45-0500 10-06-2022 Systolic Blood 118 1 BENSON GARCIA MD [facility] 22:45-0500 Pressure Non-Invasive 10-06-2022 Reason For Taking BENSON GARCIA MD [facility] 14:53-0500 VItal Signs 2022 Heart rate 85 /min BENSON GARCIA MD [facility] ital 22:50-0500 2022 Heart rate 86 /min BENSON GARCIA MD [facility] ital 18:57-0500 2022 Heart rate 90 /min BENSON GARCIA MD [facility] ital 15:12-0500 2022 Body temperature 97.16 BENSON GARCIA MD [facility] 03:08-0500 [degF] 10-04-2022 Body temperature 98.6 [degF] BENSON GARCIA MD [facility] 03:35-0500 10-03-2022 Body height 165 cm BENSON GARCIA MD [facility] ital 11:32-0500 10-03-2022 Body weight 120.6 kg BENSON GARCIA MD [facility] ital 11:32-0500 10-03-2022 Body weight 44.3 kg/m2 BENSON GARCIA MD [facility] ital 11:32-0500 08-11-2022 Body mass index 37.59 kg/m2 Donte SAM 10:0400 (BMI) [Ratio] Work Phone: 10-18-2022 Body temperature 97.81 Donte Caruso MD [facility] 10:-0400 [degF] Work Phone: 08-11-2022 Body weight 108.86 kg Donte Caruso MD [facility] 10:-0400 Work Phone: 08-11-2022 Diastolic blood 75 mm[Hg] Donte Caruso [facility] 10:0400 pressure Work Phone: 08-11-2022 Heart rate 97 /min Donte Caruso MD [facility] 10:0400 Work Phone: 08-11-2022 Respiratory rate 24 /min Donte Caruso MD [facility] 10:0400 Work Phone: 08-11-2022 SaO2% (BldA) [Mass 97 % Donte Caruso MD [facility] 10:0400 fraction] Work Phone: 08-11-2022 Systolic blood 115 mm[Hg] Donte Caruso [facility] 10:0400 pressure Work Phone: 08-23-2021 Diastolic blood 75 mm[Hg] Chevy Whittington MD [facility] 22:56-0400 pressure Work Phone: W [place] Phone: 08-23-2021 Heart rate 75 /min Chevy Whittington MD [facility] 22:56-0400 Work Phone: W [place]k Phone: 08-23-2021 Respiratory rate 16 /min Chevy Whittington MD [facility] 22:56-0400 Work Phone: W ork Phone: 08-23-2021 SaO2% (BldA) [Mass 98 % Chevy Whittington MD [facility] 22:56-0400 fraction] Work Phone: W ork Phone: 08-23-2021 Systolic blood 121 mm[Hg] Chevy Whittington MD [facility] 22:56-0400 pressure Work Phone: W ork Phone: 08-23-2021 Body height 170.2 cm Chevy Whittington MD [facility] 19:58-0400 Work Phone: W [place]k Phone: 08-23-2021 Body mass index 29.6 kg/m2 Chevy Whittington [facility] 19:58-0400 (BMI) [Ratio] Work Phone: Work Phone: 08-23-2021 Body temperature 97.5 [degF] Chevy Whittington MD [facility] 19:58-0400 Work Phone: W ork Phone: 08-23-2021 Body weight 85.73 kg Chevy Whittington [facility] 19:58-0400 Work Phone: W ork Phone: 07-18-2020 BP Diastolic 87 mm[Hg] Nadine Gaxiola [facility]- 10:40-0400 [place], 07-18-2020 BP Systolic 139 mm[Hg] [facility]- 10:40-0400 [place], 07-18-2020 Pulse (Heart Rate) 80 /min Nadine Carranza [facility]- 10:40-0400 [place], 07-18-2020 Pulse Oximetry 96 % Nadine Carranza [employer] [facility]- 10:40-0400 [place], 07-18-2020 Respiratory Rate 18 /min Nadine Carranza [facility] lt- 10:40-0400 [place], 07-18-2020 BMI (Body Mass 37.59 kg/m2 [facility] 08:31-0400 Index) [place], 07-18-2020 Body Temperature 97.39 Nadine Singh [facility]- 08:31-0400 [degF] [place], 07-18-2020 Body weight 108.86 kg [facility]- 08:31-0400 [place], 07-18-2020 Height 170.2 cm Nadine [facility]- 08:310400 [place], 05-22-2020 Body Temperature 97.39 [facility] - 11:46-0400 [degF] [place], 05-22-2020 BP Diastolic 51 mm[Hg] [facility] 11:46-0400 [place], 05-22-2020 BP Systolic 124 mm[Hg] [facility]- 11:460400 [place], 05-22-2020 Pulse (Heart Rate) 89 /min [facility]- 11:460400 [place], 05-22-2020 Pulse Oximetry 96 % [facility] 11:460400 [place], 05-22-2020 Respiratory Rate 18 /min [facility]- 11:46-0400 [place], 05-22-2020 BMI (Body Mass 42.32 kg/m2 [facility] - :0 Index) [place], 05-22-2020 Body weight 122.56 kg [facility] 04:0400 [place], 05-15-2020 Height 170.2 cm [facility]- 17:020400 [place], 05-11-2020 Body Temperature 97.3 [degF] Marisa Carranza [facility]- 15:0400 [place], 05-11-2020 BP Diastolic 47 mm[Hg] [facility] 15:0400 [place], 05-11-2020 BP Systolic 96 mm[Hg] [facility]- 15:0400 [place], 05-11-2020 Pulse (Heart Rate) 83 /min [facility] 15:0400 [place], 05-11-2020 Pulse Oximetry 93 % [facility] h- 15:0400 [place], 05-11-2020 Respiratory Rate 14 /min Marisa Carranza [facility] lt- 15:0400 [place], 05-11-2020 BMI (Body Mass 39.37 kg/m2 [facility] h- 03:10-0400 [place]) [place] 05-11-2020 Body weight 114.03 kg Marisa [facility]:0400 [place] 05-08-2020 Height 170.2 cm Marisa [facility]- 14:29-0400 [place] 06-08-2019 BP Diastolic 68 mm[Hg] [facility] 14[facility] [place] 06-08-2019 BP Systolic 107 mm[Hg] [facility] 14:39-[facility] 06-08-2019 Pulse (Heart Rate) 79 /min Cuco Carranza [facility] lth- 14:39-0400 [place] 06-08-2019 Pulse Oximetry 94 % Cuco Carranza [facility]- 14:39-0400 [place] 06-08-2019 Respiratory Rate 18 /min Cuco Carranza [facility] h- 14:39-0400 [place] 06-08-2019 BMI (Body Mass 40.57 kg/m2 [facility] 12:0400 Index) [place] 06-08-2019 Body Temperature 98.29 Cuco Carranza [facility]- 12:04-0400 [degF] [place] 06-08-2019 Body weight 117.48 kg [facility] 12:[facility] 06-08-2019 Height 170.2 cm [facility] 12:[facility]00 [place] Encounters Encounter Date Encounter Type Care Provider Facility Start: 12-23-2022 Evaluation and CONSTANTINE JACOBSON [facility] End: 01-01-2023 management of inpatient Hospital Start: 11-19-2022 ambulatory LYNDSEY JARRELL [facility] Start: 11-17-2022 ambulatory LOIS MELGAR [facility] End: 11-18-2022 Hospital Start: 11-16-2022 Telephone encounter Marilynn Carballo APRN.[facility] Work Phone: [place] Comment on above: No Show (Pt no showed for ap pt on 11/16) Start: 11-10-2022 Telephone encounter Marilynn Carballo APRN.CNP [facility] Work Phone: [place] Comment on above: Missed Appointment (New trisha ent missed appointment. ) Start: 10-31-[address] MUSTAPHA WOODWARD MD Facility:A End: 11-02-2022 management of inpatient Start: 10-31-[address] [facility]: 11-02-2022 management of Work P giovanni: inpatient Start: 10-30-2022 Emergency department PAULO GARCIA [facility] End: 10-31-2022 patient visit Hospital Start: 10-15-2022 ambulatory [facility] End: 10-16-2022 [facility] Start: 10-03-2022 Evaluation and BENSON GARCIA Facility:A End: 10-07-2022 management of inpatient Start: 10-03-2022 Evaluation and BENSON GARCIA [facility] End: 10-07-2022 management of Work P giovanni: inpatient Start: 10-03-2022 Emergency department SAW KEARNEY [facility] End: 10-03-2022 patient visit Hospital Start: 08-11-2022 Emergency department DONTE CARUSO [facility] End: 08-11-2022 patient visit Start: 08-11-2022 Emergency department Donte davila Emergency End: 08-11-2022 patient visit Work Phone: Dept Comment on above: Bronchitis (Primary Dx); Throat pain Start: 06-12-2022 Evaluation and CALVIN URBAN [facility] End: 06-15-2022 management of inpatient Start: 05-06-2022 Emergency department DAYO BELL Facility :[facility] End: 05-06-2022 patient visit Start: 08-23-2021 Emergency department CHEVY Sam [facility] End: 08-24-2021 patient visit Start: 08-23-2021 Emergency department Chevy peguero Emergency Dept End: 08-24-2021 patient visit Work Phone: Comment on above: Anxiety state (Primary Dx); Shortness of breath; Shaking Start: 08-08-2020 Subsequent hospital [facility] End: 08-08-2020 visit by physician Work Phone: MR Morales Comment on above: Arrived Start: 07-18-2020 Subsequent hospital Nadine Gaxiola [facility] [address] End: 07-18-2020 visit by physician Work Phone: En doscopy Comment on above: Arrived Start: 07-03-2020 Subsequent [facility] [address] MRI End: 07-03-2020 visit by physician Work Phone: Comment on above: Light stools; Other cirrhosis of liver (HC C) Start: 05-15-2020 Evaluation and Luis Avalos [facility] 5W TELEMET RY End: 05-22-2020 management of inpatient Work Phone: Comment on above: Pneumonia due to organism (P rimary Dx); Septicemia (HCC); Free fluid in pelvis; Kidney hematoma, unspecified laterality, subsequent encounter; Lactic acidosis; Right lower quadrant abdomin al pain; Hypokalemia; Other elevated white blood c ell (WBC) count; Sepsis without acute organ d ysfunction, due to unspecified organism (HCC) Start: 05-07-2020 Evaluation and Marisa Peters [facility] [address] [facility] End: 05-11-2020 management of inpatient Work Phone: Comment on above: Hematoma of right kidney, in itial encounter (Primary Dx); Right lower quadrant abdomin al pain; Cellulitis of left breast; Primary biliary cirrhosis (H CC); Blurry vision, bilateral Start: 06-08-2019 Subsequent hospital Cuco Guerrier [facility] [address] H End: 06-08-2019 visit by physician Work Phone: En doscopy Comment on above: Arrived Start: 02-15-2019 [facility]: 02-15-2019 patient visit Center Start: 01-19-2019 Patient encounter procedure JAY KINGSTON [facility] End: 01-22-2019 Center Start: 10-09-[address] [facility] patient [facility] Start: 08-27-2018 Emergency department Kendell Cha [facility] patient visit Procedures Date Procedure Procedure Detail Performing Clin ician Start: 12-23-2022 Urinalysis PAULO GARCIA Comment on above: Result Comment: URINALYSIS Performed By: #### [id number] ## ##[facility],[address] [place] [address] Start: 11-17-2022 Urinalysis PAULO GARCIA Comment on above: Result Comment: URINALYSIS Performed By: #### [id number] ## ## [facility],[address] [place] [address] Start: 10-30-2022 Urinalysis PAULO GARCIA Comment on above: Result Comment: URINALYSIS Performed By: #### [id number] ## ## [facility],[address] [place] [address] Start: 08-11-2022 Radiologic exam chest single view Donte Caruso MD Work Phone: Start: 08-11-2022 Iaadiadoo streptococcus group a Donte Caruso MD Work Phone: Start: 08-23-2021 Radiologic exam chest single view Rodrigo FLORES Work Phone: Start: 08-23-2021 Basic metabolic panel calcium total Rodrigo FLORES Work Phone: Start: 08-08-2020 Mri abdomen w/o contrast material Tierra Denise Work Phone: Start: 07-18-2020 HM ENDOSCOPY REPORT 3m Scannin g Start: 05-22-2020 Blood count complete auto&auto Margarita L Quick difrntl wbc Start: 05-22-2020 Assay of troponin quantitative Moises Subichin Work Phone: [phone] Start: 05-22-2020 BASIC METABOLIC PANEL W/ REFLEX TO Moises Subichin MG FOR LOW K Work Phone: Start: 05-21-2020 ADD ON LAB TEST Sosa Andrade n Work Phone: Start: 05-21-2020 Ecg routine ecg w/least 12 lds M Daniella Raza w/i&r Work Phone: Start: 05-21-2020 Assay of magnesium Moises wesleyin Work Phone: Start: 05-21-2020 Assay of troponin quantitative Moises Stroud Work Phone: Start: 05-21-2020 BASIC METABOLIC PANEL W/ REFLEX TO Moises Stroud MG FOR LOW K Work Phone: Start: 05-21-2020 Blood count complete auto&auto Taralexa Radha difrntl wbc Work Phone: Start: 05-21-2020 Hepatic function panel Moises Stroud Work Phone: Start: 05-21-2020 MANUAL DIFFERENTIAL Moises colonhijhoana Work Phone: Start: 05-20-2020 Cell count misc body fluids Ta ranjot Radah w/differential count Work Phone: Start: 05-20-2020 US PARACENTESIS INITIAL Taranj ot Radha Work Phone: Start: 05-20-2020 Prothrombin time Taralexa Jand a Work Phone: Start: 05-20-2020 Ecg routine ecg w/least 12 lds Taralexa Bobda w/i&r Work Phone: Start: 05-20-2020 DIFFERENTIAL, BODY FLUID Malachi jot Radha Work Phone: Start: 05-20-2020 Glucose body fluid other than blood Taranbingt Radha Work Phone: Start: 05-20-2020 Lactate dehydrogenase ldh Maddi njot Radha Work Phone: Start: 05-20-2020 Other source albumin quantitative Luz Maria Bobda each specimen Work Phone: [phone] Start: 05-20-2020 Smr prim src gram/giemsa stain bct Taralexa Bobda fungi/cell Work Phone: Start: 05-20-2020 TOTAL PROTEIN, FLUID Luz Maria Bobda Work Phone: [phone] Start: 05-20-2020 ADD ON LAB TEST Luz Maria Bobda Work Phone: Start: 05-20-2020 25 hydroxy includes fractions if Taranjot Radha performed Work Phone: Start: 05-20-2020 Assay of magnesium Moises Sub ichin Work Phone: Start: 05-20-2020 BASIC METABOLIC PANEL W/ REFLEX TO Moises Subichin MG FOR LOW K Work Phone: Start: 05-20-2020 Blood count complete auto&auto Taranlorene Bobda difrntl wbc Work Phone: Start: 05-20-2020 Procalcitonin (pct) Moises Pickens bichin Work Phone: Start: 05-20-2020 Cytopath fl nongyn, sm/fltr Ta daniel Garcia Work Phone: Start: 05-19-2020 Computed tomography of abdomen and Luz Maria Garcia pelvis with contrast Work Phone: Start: 05-19-2020 ADD ON LAB TEST Luz Maria Garcia Work Phone: Start: 05-19-2020 Assay of ammonia Taralexa Bobd a Work Phone: Start: 05-19-2020 Assay of magnesium Moises Sub ichin Work Phone: Start: 05-19-2020 Assay of thyroid stimulating S tephen Subichin hormone tsh Work Phone: Start: 05-19-2020 BASIC METABOLIC PANEL W/ REFLEX TO Moises Subichin MG FOR LOW K Work Phone: Start: 05-19-2020 Blood count complete auto&auto Taranjot Radha difrntl wbc Work Phone: Start: 05-19-[address]ocobalamin vitamin b-12 [address] ep[address] Subichin Work Phone: Start: 05-18-2020 ADD ON LAB TEST Luz Maria Garcia Work Phone: Start: 05-18-2020 Ecg routine ecg w/least 12 lds Luz Maria Garcia w/i&r Work Phone: Start: 05-18-2020 Assay of magnesium Moises Sub ichin Work Phone: Start: 05-18-2020 BASIC METABOLIC PANEL W/ REFLEX TO Moises Subichin MG FOR LOW K Work Phone: Start: 05-18-2020 Blood count complete auto&auto Samer Shaker difrntl wbc Work Phone: Start: 05-18-2020 Hepatic function panel Moises Subichin Work Phone: Start: 05-17-2020 Assay of magnesium Moises Sub ichin Work Phone: Start: 05-17-2020 BASIC METABOLIC PANEL W/ REFLEX TO Moises Subichin MG FOR LOW K Work Phone: Start: 05-17-2020 Blood count complete auto&auto Samer Shaker difrntl wbc Work Phone: Start: 05-16-2020 Culture bacterial any source T yler A Venkataash anaerobic iso&id Work Phone: Start: 05-16-2020 Culture bacterial blood aerobic Luis A Gombash w/id isolates Work Phone: Start: 05-16-2020 CT ABSCESS DRAIN PERITONEAL Ma x J Roehmholdt Work Phone: Start: 05-16-2020 ADD ON LAB TEST Samer Shaker Work Phone: Start: 05-16-2020 Iadna respiratry probe & rev trnscr Moises Subichin 12-25 target Work Phone: Start: 05-16-2020 Assay of lactate Moises Subic hin Work Phone: Start: 05-16-2020 Assay of magnesium Moises Sub ichin Work Phone: Start: 05-16-2020 BASIC METABOLIC PANEL W/ REFLEX TO Moises Subichin MG FOR LOW K Work Phone: Start: 05-16-2020 Blood count complete automated Moises Subichin Work Phone: Start: 05-16-2020 Procalcitonin (pct) Moises Pickens bichin Work Phone: Start: 05-15-2020 Urnls dip stick/tablet rgnt auto Aysha Wangell w/o microscopy Work Phone: Start: 05-15-2020 Computed tomography of abdomen and Aysha Robbie Villegas pelvis with contrast Work Phone: Start: 05-15-2020 Assay of lactate Wolf Drew Work Phone: Start: 05-15-2020 Radiologic exam chest 2 views Wolf Drew Work Phone: Start: 05-15-2020 Ecg routine ecg w/least 12 lds Wolf Drew w/i&r Work Phone: Start: 05-15-2020 CULTURE, BLOOD 1 Aysha Wange ll Work Phone: Start: 05-15-2020 Culture bacterial quanttative Moises Subichin colony count urine Work Phone: Start: 05-15-2020 Iaad ia mult step method nos each Moises Subichin organism Work Phone: Start: 05-15-2020 STREP PNEUMONIAE ANTIGEN Keila en Subichin Work Phone: Start: 05-15-2020 Assay of lactate Aysha D Kathleene ll Work Phone: Start: 05-15-2020 Assay of lipase Aysha D Kathelenel l Work Phone: Start: 05-15-2020 Basic metabolic panel calcium total Aysha D Villegas Work Phone: Start: 05-15-2020 Blood count complete auto&auto Aysha D Villegas difrntl wbc Work Phone: Start: 05-15-2020 Culture bacterial blood aerobic Aysha Robbie Villegas w/id isolates Work Phone: Start: 05-15-2020 Hepatic function panel Aysha Villegas Work Phone: Start: 05-15-2020 Prothrombin time Aysha Robbie Ovalles ll Work Phone: Start: 05-11-2020 ADD ON LAB TEST Samer Shaker Work Phone: Start: 05-11-2020 Basic metabolic panel calcium total M Daniella Raza Work Phone: Start: 05-11-2020 Blood count complete auto&auto Samer Shaker difrntl wbc Work Phone: Start: 05-11-2020 C-reactive protein Samer Shake r Work Phone: Start: 05-11-2020 Procalcitonin (pct) Sergio Raza Work Phone: Start: 05-11-2020 Sedimentation rate rbc automated Samer Shaker Work Phone: Start: 05-10-2020 Dup-scan artl eileen Samer Shaker abdl/pel/scrot&/rpr orgn lmt Wor k Phone: Start: 05-10-2020 CT ABDOMEN PELVIS W CONTRAST S amer Shaker Work Phone: Start: 05-10-2020 ADD ON LAB TEST Samer Shaker Work Phone: Start: 05-10-2020 Assay of lipase Sergio Nunez ldo Work Phone: Start: 05-10-2020 Basic metabolic panel calcium total Sergio Raza Work Phone: Start: 05-10-2020 Blood count complete auto&auto Samer Shaker difrntl wbc Work Phone: Start: 05-10-2020 C-reactive protein Samer Shake r Work Phone: Start: 05-10-2020 Hepatic function panel M Sylvester Raza Work Phone: Start: 05-10-2020 Sedimentation rate rbc automated Samer Shaker Work Phone: Start: 05-09-2020 Blood count hemoglobin Samer S haker Work Phone: Start: 05-09-2020 Basic metabolic panel calcium total M Daniella Raza Work Phone: Start: 05-09-2020 Blood count complete auto&auto Samer Shaker difrntl wbc Work Phone: Start: 05-08-2020 Blood count hemoglobin Samer S haker Work Phone: Start: 05-08-2020 ADD ON LAB TEST Samer Shaker Work Phone: Start: 05-08-2020 Basic metabolic panel calcium total M Daniella Raza Work Phone: Start: 05-08-2020 Blood count complete auto&auto Sergio Raza difrntl wbc Work Phone: Start: 05-08-2020 MANUAL DIFFERENTIAL Sergio Raza Work Phone: Start: 05-07-2020 CT ABDOMEN PELVIS W CONTRAST J lita Peters Work Phone: Start: 05-07-2020 Ecg routine ecg w/least 12 lds Marisa Peters w/i&r Work Phone: Start: 05-07-2020 Urine test visual color Marisa Peters cmprsn meths Work Phone: Start: 05-07-2020 Urnls dip stick/tablet rgnt auto Marisa Peters w/o microscopy Work Phone: Start: 05-07-2020 ADD ON LAB TEST Marisa Bey el End: 05-07-2020 Work Phone: Start: 05-07-2020 Radiologic exam chest single view Neil U Sanchez Work Phone: [phone] Start: 05-07-2020 Assay of lipase Neil U Sanchez Work Phone: Start: 05-07-2020 Assay of troponin quantitative Neil U Sanchez Work Phone: Start: 05-07-2020 Basic metabolic panel calcium total Neil U Sanchez Work Phone: Start: 05-07-2020 Blood count complete automated Neil U Sanchez Work Phone: Start: 05-07-2020 C-reactive protein Neil U Sanchez Work Phone: [phone] Start: 05-07-2020 COVID-19 Neil U Sanchez Work Phone: [phone] Start: 05-07-2020 Hepatic function panel Neil U P atel Work Phone: Start: 05-07-2020 Natriuretic peptide Neil U Mina l Work Phone: Start: 06-08-2019 Colonoscopy 3m Scanning End: 06-08-2019 Start: 02-15-2019 Radiologic exam chest 2 views JAY LUISJACOB Start: 02-15-2019 Culture bacterial blood aerobic JAY KINGSTON w/id isolates Start: 02-15-2019 Microscopic examination of blood, JAY KINGSTON culture Comment on above: Performed By: #### CXBL #### [facility] [address] [place] [address] Start: 02-15-2019 Assay of troponin quantitative JAY KINGSTON Start: 02-15-2019 Blood count complete auto&auto difrntl wbc JAY LUISJACOB Start: 02-15-2019 BRAIN NATRIURETIC PEPTIDE FÉLIX Y VASHTI Start: 02-15-2019 Comprehensive metabolic panel JAY CAPJACOB Start: 02-15-2019 Creatine kinase total AJY CA DANII Start: 02-15-2019 Ecg routine ecg w/least 12 lds w/i&r JAY VASHTI Start: 01-19-2019 Radex spine lumbosacral minimum 4 views JAY VASHTI Plan of Treatment Date Care Activity Detail Author Start: DTaP/Tdap/Td vaccine DTaP/Tdap/Td vaccine (2 - S UMMT 06-09-2032 (2 - Td or Tdap) Td or Tdap) Start: Urine microalbumin DTAP,TDAP,TD (2 - Td or [facility] 06-09-2032 profile Tdap) Start: Lipid panel Lipids [facility] 06-09-2027 Start: DIABETES SCREEN DIABETES SCREEN [facility] 06-15-2025 Start: Diabetes screen Diabetes screen [facility] 06-09-2025 Start: Depression Monitoring Depression Monitoring [facility] 06-05-2023 Start: 08-13-2022 Patient encounter 08/13/2022 Office Visit [facility] Medical End: 08-13-2022 procedure Internal Medicine [place] [facility] Internal Drew, Tim, VOICE SYSTEMS ENGINEER - Medici ne HAND HIDE STRETCHER [address] [place] [address] Start: Influenza vaccination INFLUENZA (#1) [facility] 06-25-2022 Start: Screening for [facility] 06-08-2022 malignant neoplasm of colon Start: Influenza vaccination Flu vaccine (#1) [facility] 05-25-2022 Start: Diabetes screen Diabetes screen [place], [place] 01-18-2022 Start: Influenza vaccination Flu vaccine (#1) [facility] 06-25-2021 Work Phone: Start: Creatinine Creatinine monitoring [facility], [place] 05-22-2021 measurement Start: Potassium monitoring Potassium monitoring [place], [place] 05-22-2021 Start: Breast cancer screen Breast cancer screen [place], [place] 05-17-2021 Start: Screening for Breast cancer screen [facility] 05-17-2021 malignant neoplasm of breast Start: 08-21-2020 Virtual Visit 08/21/2020 Virtual Visit [facility] End: 08-21-2020 Gastroenterology Tierra Denise PA-C [address] [place] [address] [phone] Start: 08-01-2020 Virtual Visit 08/01/2020 Virtual Visit [facility] End: 08-01-2020 Gastroenterology Tierra Denise PA-C [address] [address] [place] [address] [phone] Start: 07-18-2020 Appointment 07/18/2020 Appointment IP [facility] End: 07-18-2020 Unit Nadine Gaxiola MD [address] [facility] [address] [place] [address] Start: Influenza vaccination [facility] [place] 06-25-2020 Start: 05-29-2020 Basic metabolic 2000 Basic Metabolic Panel Lab [place], [place] End: 05-22-2021 panel Routine Hypokalemia Sepsis without acute organ dysfunction, due to unspecified organism (HCC) Expected: 05/29/2020, Expires: 05/22/2021 Comment on above: Expected: 05/29/2020, s: 05/22/2021 Start: 05-29-2020 CBC CBC Lab Routine Other elevated white [place], [place] End: 05-22-2021 blood cell (WBC) count Sepsis wi thout acute organ dysfunction, due to unspecified organism (HCC) Expec dori: 05/29/2020, Expires: 05/22/2021 Comment on above: Expected: 05/29/2020, s: 05/22/2021 Start: 05-29-2020 Procalcitonin Procalcitonin Lab Routine [place] End: 05-22-2021 Sepsis without acute organ dysfunction, due to unspecified organism (HCC) Expected: 05/29/2020, Expires: 05/22/2021 Comment on above: Expected: 05/29/2020, s: 05/22/2021 Start: 05-29-2020 Virtual Visit 05/29/2020 Virtual Visit [facility] [employer] End: 05-29-2020 Internal Medicine [facility] Delia Morales MD [address] [place] [address] [phone] Start: 05-17-2020 CBC CBC Lab Routine [facility] [place] End: 05-11-2021 right kidney, initial encounter Expected: 05/17/2020, Expires: 05/11/2021 Comment on above: Expected: 05/17/2020, s: 05/11/2021 Start: 08-22-2019 Office Visit 08/22/2019 Office Visit [facility] End: 08-22-2019 Internal Medicine [facility] Bushra Harkins, VOICE SYSTEMS ENGINEER - HAND HIDE STRETCHER [address] [place] [address] Start: 08-10-2019 [facility]: 08-10-2019 [facility] Start: 06-25-2019 Influenza vaccination Flu vaccine (#1) [facility] Start: 06-23-2019 Office Visit 06/23/2019 Office Visit Gastro enterology [facility] End: 06-23-2019 Gastroenterology Simi Navarrete, VOICE SYSTEMS ENGINEER - HAND HIDE STRETCHER [address] [address] Start: 2018 Colon cancer screen Colon cancer screen [facility] colonoscopy colonoscopy Start: 2018 Shingles Vaccine (1 Shingles Vaccine (1 of [facility]) 2) Start: 2018 SHINGRIX VACCINE (1 SHINGRIX VACCINE (1 of [facility] of 2) 2) Start: 2013 COLOGUARD (FIT-DNA) COLOGUARD (FIT-DNA) [facility] Start: 2013 [facility]oscopy [facility] Start: 2013 COLORECTAL CANCER COLORECTAL CANCER [facility] SCREENING SCREENING Start: [address] [facility] Start: 2013 FECAL OCCULT BLOOD FECAL OCCULT BLOOD [facility] Start: 2013 LIPID SCREEN LIPID SCREEN [facility] Start: 2013 Screening for [facility] malignant neoplasm of colon Start: 2013 SIGMOIDOSCOPY [facility] Start: 2008 Mammography MAMMOGRAM [facility] Start: 1998 HPV TESTING HPV TESTING [facility] Start: 1998 Screening for [facility] malignant neoplasm of cervix Start: 1989 Cervical cancer Cervical cancer screen [facility] screen Start: 1989 PAP TESTING PAP TESTING [facility] Start: 1989 Screening for [facility] malignant neoplasm of cervix Start: 1987 DTaP/Tdap/Td vaccine DTaP/Tdap/Td vaccine (1 M [place], [place] (1 - Tdap) - Tdap) Start: 1987 Hepatitis B vaccine Hepatitis B vaccine (1 [facility] (1 of 3 - Risk 3-dose of 3 - Risk 3-dose series) series) Start: 1986 HIV SCREENING HIV SCREENING [facility] Start: 1980 COVID-19 Vaccine (1) COVID-19 Vaccine (1) [facility] Work Phone: Start: 1974 PNEUMOCOCCAL (1 - PNEUMOCOCCAL (1 - PCV) [facility] PCV) Start: 1974 Pneumococcal 0-64 Pneumococcal 0-64 years [facility] years Vaccine (1 - Vaccine (1 - PCV) PCV) Start: 1974 Pneumococcal 0-64 Pneumococcal 0-64 years [place] years Vaccine (1 of 1 Vaccine (1 of 1 - - PPSV23) PPSV23) Start: 1974 Pneumococcal 0-64 Pneumococcal 0-64 years [facility] years Vaccine (1 of 2 Vaccine (1 of 2 - Work Adolfo ne: - PPSV23) PPSV23) Start: 1969 HEPATITIS A (1 of 2 - HEPATITIS A (1 of 2 - Cl [facility] Risk 2-dose series) Risk 2-dose series) Start: 1969 Hepatitis A vaccine Hepatitis A vaccine (1 [facility] (1 of 2 - Risk 2-dose of 2 - Risk 2-dose series) series) Start: 04-05-1969 COVID-19 Vaccine (#1) COVID-19 Vaccine (#1) PICKENS MMA Albumin, fluid Albumin, fluid [place] End: 05-20-2020 Routine One Time for 1 Occurrences starting 05/20/2020 until 05/20/2020 Comment on above: One Time for 1 Occurrences s tarting 05/20/2020 until 05/20/2020 Basic metabolic 2000 panel Basic Metabolic Panel Lab Routine [place] Daily until discontinued startin g 05/08/2020, 4 completed Comment on above: Daily until discontinued sta rting 05/08/2020, 4 completed Basic Metabolic Panel w/ Basic Metabolic Panel w / Reflex [place] Reflex to MG to MG Lab Routine Daily until discontinued starting 05/16/2020, 7 completed Comment on above: Daily until discontinued sta rting 05/16/2020, 7 completed Blood glucose - POCT Blood glucose - POCT [place] End: 06-08-2019 of Care Testing Routine One Time for 1 Occurrences starting 06/08/2019 until 06/08/2019 Comment on above: One Time for 1 Occurrences s tarting 06/08/2019 until 06/08/2019 Body fluid cell count Body fluid cell count [facility], End: 05-20-2020 with differential with differential Lab [place] Routine One Time for 1 Occurrences starting 05/20/2020 until 05/20/2020 Comment on above: One Time for 1 Occurrences s tarting 05/20/2020 until 05/20/2020 CBC Auto Differential CBC Auto Differential [place] End: 05-19-2020 Routine Daily for 10 Occurrences starting 05/10/2020 until 05/19/2020, 2 completed Comment on above: Daily for 10 Occurrences sta rting 05/10/2020 until 05/19/2020, 2 completed CBC Auto Differential CBC Auto Differential [place] End: 06-17-2020 Routine Daily for 30 Occurrences starting 05/19/2020 until 06/17/2020, 3 completed Comment on above: Daily for 30 Occurrences sta rting 05/19/2020 until 06/17/2020, 3 completed CBC Auto Differential CBC Auto Differential [place] Routine 05/22/2020 2:43 AM EDT Culture, Anaerobic and Culture, Anaerobic and Me [place], [place] Aerobic Aerobic Microbiology Routine 05/20/2020 12:15 PM EDT Culture, Blood 1 Culture, Blood 1 [place] Microbiology STAT 05/08/2020 5:59 AM EDT Culture, Blood 2 Culture, Blood 2 [place] Microbiology STAT 05/08/2020 6:04 AM EDT Culture, Body Fluid Culture, Body Fluid [place] Microbiology Routine 05/20/2020 12:15 PM EDT Culture, Respiratory Culture, Respiratory [place], [place] End: 05-16-2020 Microbiology Routine One Time for 1 Occurrences starting 05/16/2020 until 05/16/2020 Comment on above: One Time for 1 Occurrences s tarting 05/16/2020 until 05/16/2020 Glucose, body fluid Glucose, body fluid Lab [place] End: 05-20-2020 Routine One Time for 1 Occurrences starting 05/20/2020 until 05/20/2020 Comment on above: One Time for 1 Occurrences s tarting 05/20/2020 until 05/20/2020 Hemoglobin and Hematocrit, Hemoglobin and Hemato crit, [place] Blood Blood Lab Routine 05/09/2020 2:51 AM EDT Incentive spirometry Incentive spirometry RT [place] Respiratory Care Routine Every 2hr while awake until discontinued starting 05/21/2020 Comment on above: Every 2hr while awake until discontinued starting 05/21/2020 Initiate Oxygen Therapy Initiate Oxygen Therapy Protocol [place] Protocol Respiratory Care Routine Daily until discontinued starting 05/08/2020 Comment on above: Daily until discontinued sta rting 05/08/2020 Lactate dehydrogenase, Lactate dehydrogenase, [facility], End: 05-20-2020 body fluid body fluid Lab Routine [place] One Time for 1 Occurrences starting 05/20/2020 until 05/20/2020 Comment on above: One Time for 1 Occurrences s tarting 05/20/2020 until 05/20/2020 Microscopic observation GRAM STAIN Microbiology [facility], End: 05-16-2020 Gram stain Nom (Unsp Routine One Time for 1 [place] spec) Occurrences starting 05/16/2020 until 05/16/2020 Comment on above: One Time for 1 Occurrences s tarting 05/16/2020 until 05/16/2020 Oxygen therapy Initiate Oxygen Therapy Protocol Respiratory [place] Care Routine Daily until discont inued starting 05/16/2020 Comment on above: Daily until discontinued sta rting 05/16/2020 , URINE , URINE Lab [facility] [place] End: 05-08-2020 One Time for 1 Occurrences starting 05/08/2020 until 05/08/2020 Comment on above: One Time for 1 Occurrences s tarting 05/08/2020 until 05/08/2020 Protein, body fluid Protein, body fluid Lab [place] End: 05-20-2020 Routine One Time for 1 Occurrences starting 05/20/2020 until 05/20/2020 Comment on above: One Time for 1 Occurrences s tarting 05/20/2020 until 05/20/2020 Pulse Oximetry Spot Pulse Oximetry Spot Check [place] End: 06-08-2019 Check Respiratory Care Routine One Time for 1 Occurrences starting 06/08/2019 until 06/08/2019 Comment on above: One Time for 1 Occurrences s tarting 06/08/2019 until 06/08/2019 Sputum induction Sputum induction Respiratory Ca re Routine [place] Daily until discontinued startin g 05/16/2020 Comment on above: Daily until discontinued sta rting 05/16/2020 Troponin I.cardiac Troponin Lab [facility] [place], [place] End: 05-21-2020 [Mass/Vol] Time for 1 Occurrences starting 05/21/2020 until 05/21/2020 Comment on above: One Time for 1 Occurrences s tarting 05/21/2020 until 05/21/2020 [facility] Immunizations Immunization Date Immunization Notes Care Provider Facility 06-09-2022 tetanus toxoid, reduced Donte Caruso MD [facility] dip[facility] toxoid, and Work Phone: acellular pertussis vaccine, adsorbed 10-03-2019 influenza, injectable, Marilynn Trill VOICE SYSTEMS ENGINEER .HAND HIDE STRETCHER [facility] quadrivalent, contains Work Phone: preservative 08-25-2017 influenza nasal, Marilynn Trill VOICE SYSTEMS ENGINEER.HAND HIDE STRETCHER [facility] unspecified formulation Work Phone: 08-25-2017 influenza virus Cuco Guerrier [facility] vaccine, unspecified formulation 08-25-2017 influenza, seasonal, Marilynn Trill VOICE SYSTEMS ENGINEER.C ROOFER GYPSUM [facility] injectable Work Phone: 08-10-2014 influenza virus Cuco Guerrier [facility] vaccine, unspecified formulation 08-10-2014 influenza virus Marilynn Trill VOICE SYSTEMS ENGINEER.HAND HIDE STRETCHER [facility] vaccine, whole virus Work Phone: Payers Date Payer Category Payer Unknown [facility] xxxxxxx xxxx MEDICAID [id number] 2015-Present [id number] CLAIMS DEPARTMENT [address] [place] [address] [facility] xxxxxxx [id number] MEDICAID [id number] 2015-Present [id number] CLAIMS DEPARTMENT [address] [place] [address] 2015 Medicaid [facility] MEDICAID [id number] [facility] MEDICAID [id number] 2015-Present [phone] [address] [place] [address] Medicaid 2015 Unknown [id number] 1968 Unknown [id number] 3.3.579.2. 668 1968 Unknown [id number] 3.3.579.2. 668 1968 Unknown [id number] 3.3.579.2. 182 1968 Unknown [id number] 3.3.579.2. 182 1968 Unknown [id number] 3.3.579.2. 668 1968 Unknown [id number] 3.3.579.2. 668 1968 Unknown [id number] 3.3.579.2. 627 1968 Unknown [id number] 3.3.579.2. 627 1968 Unknown [id number] 3.3.579.2. 651 1968 Unknown [id number] 3.3.579.2. 651 1968 Unknown [id number] 3.3.579.2. 651 1968 Unknown [id number] 3.3.579.2. 651 Unknown Unknown [id number] Worker's Compensation Social History Date Type Detail Facility Start: 06-08-2019 Tobacco smoking status Former smoker Tere carney [facility] End: 04-26-2020 [facility] Start: 10-25-1986 History of tobacco use Current smoker [facility] End: 09-24-2018 Start: 06-08-2019 Cigarettes smoked Tere Valderrama [facility] End: 04-26-2020 current (pack per day) - Reported Start: 06-08-2019 [facility] intake [facility] Start: 04-20-2019 History SDOH Physical 7 [facility] Activity DPW Start: 04-20-2019 History SDOH Physical 3 [facility] End: 06-05-2022 Activity MPS Start: 04-20-2019 History SDOH Stress 2 Tere Graf [place] Start: 04-20-2019 History SDOH Financial 5 [place] Start: 04-20-2019 History SDOH Food Worry 1 [place] Start: 05-25-2019 Tobacco Comment pt quit 09/2018, off Tere Singh [place] and smoker Start: 05-25-2019 Alcohol Comment Last Drinking 10/2017, [place] hx EtoH for 20 years, attended AA program 2001 to 2013 Start: 1970 Sex Assigned At Not on file [facility] Start: 04-26-2020 Tobacco use and Never used [place] End: 05-07-2020 exposure Start: 05-07-2020 Alcohol intake [facility] End: 05-16-2020 alcohol (finding) Start: 08-01-2022 Exposure to SARS-CoV-2 Not sure [facility] End: 08-11-2022 (event) Start: 06-17-2020 Alcohol intake Ex-drinker (finding) Tere Singh [place] End: 08-11-2022 Start: 06-17-2020 Tobacco Comment pt quit 09/2018, off [facility] [place], [place] and on smoker Start: 06-17-2020 Alcohol Comment Last Drinking May [facility], [place] 2018, hx EtoH for 20 years, attended AA program 2001 to 2013 Start: 06-17-2020 Tobacco Comment pt quit 09/2018, off [facility] End: 06-05-2022 and on smoker Work Phone: Start: 06-17-2020 Alcohol Comment Last Drinking May, hx EtoH for 20 Work Phone: years, attended AA program 2001 to 2013 Start: 10-25-1986 History of tobacco use Cigarette Smoker [facility] End: 09-24-2018 Work Phone: Tobacco smoking status No Smoking Status [facility] Entered Work Phone: Sex Assigned At Female Diana Jace sorensen Start: 04-26-2020 Alcohol intake Current drinker of Rajesh farah alcohol (finding) Start: 04-26-2020 Tobacco Comment quit 17 months ago Rajesh farah Start: 07-19-2017 Alcohol Comment social [facility] ic Medical Equipment Procedure Code Equipment Code Equipment Original Equipment Identifi er Dates Text Cement Simplex Bone [id number] Start: High Viscosity - 02-08-2018 [id number] Insert Triathlon 3 [id number] Start: X3 9mm Tibial 02-08-2018 Condylar Stabilized Knee - [id number] Component Triathlon [id number] Start: 32mm Asymmetric X3 8 10mm Patellar Knee - [id number] Baseplate Triathlon [id number] Start: 3 Tibial Primary 02-08-2018 Cement Knee - [id number] Functional Status Date Assessment Result Facility 11-02-2022 Functional Status Room check performed Diana Adelso [facility] 11-02-2022 Functional Status Mobile home [facility] 11-02-2022 Functional Status [facility] 11-02-2022 Functional Status [facility] 11-02-2022 Functional Status [facility] 11-01-2022 Functional Status Done [facility] 11-01-2022 Functional Status Activity Assistance Independ t [facility] 11-01-2022 Functional Status Assistive Device None [facility] 11-01-2022 Functional Status Ambulation in [place] [facility] 10-31-2022 Functional Status [facility] 10-31-2022 Functional Status Done [facility] 10-07-2022 Functional Status Done [facility] 10-07-2022 [facility] 10-06[facility] Functional Status Mod I [facility] 2022 Functional Status Yes [facility] 2022 Functional Status Mobile home [facility] 10-04-2022 Functional Status [facility] 10-04-2022 Functional Status [facility] 10-04-2022 Functional Status [facility] 10-03-2022 Functional Status Sensory Deficits None [facility] Mental Status Date Assessment Result Facility 11-02-2022 Mental Status Oriented x 4 [facility] 11-01-2022 Mental Status [facility] 11-01-2022 Mental Status [facility] 10-07-2022 Mental Status Orientation Oriented x 4 [facility] 10-07-2022 Mental Status [facility] 10-07-2022 Mental Status [facility] 10-06-2022 Mental Status Orientation Assessment Oriented x 4 [facility] 2022 Mental Status [facility] 2022 Mental Status [facility] Clinical Notes 05-06-2022 to 12-28-2022 Telephone Encounter - Nadege Morales - 11/16/2022 2:18 PM ESTTelephone Encounter - Krysten Iris - 11/10/2022 2:38 PM EST Note Date & Type Note Facility 12-28-2022 Note . [facility] MICRO - Microbiology ([place]) PROCEDURE: Blood Culture [id number] (bacterial) [*1] SOURCE: Blood BODY SITE: COLLECTED DATE/TIME: 12/22/19 18:10 EST RECEIVED DATE/TIME: 12/23/2022 16:50 EST START DATE/TIME: 12/23/2022 16:51 EST FREE TEXT SOURCE: FINAL REPORTS Final Report [] Verified Date/Time/Personnel: 12/28/2022 1 6:59 EST Blood Culture: No Growth at 5 days. PRELIMINARY REPORTS Preliminary Report [] Verified Date/Time/Personnel: 12/23/2022 1 7:59 EST Culture has been received in lab and is no growth to date. Routine cultures are held for 5 days. Performing Locations *1: This test was performed at: [address], [address]- , 12-28-2022 Note . [facility] MICRO - Microbiology ([place]) PROCEDURE: Blood Culture [id number] (bacterial) [*1] SOURCE: Blood BODY SITE: COLLECTED DATE/TIME: 12/22/19 18:22 EST RECEIVED DATE/TIME: 12/23/2022 16:50 EST START DATE/TIME: 12/23/2022 16:51 EST FREE TEXT SOURCE: FINAL REPORTS Final Report [] Verified Date/Time/Personnel: 12/28/2022 1 6:59 EST Blood Culture: No Growth at 5 days. PRELIMINARY REPORTS Preliminary Report [] Verified Date/Time/Personnel: 12/23/2022 1 7:59 EST Culture has been received in lab and is no growth to date. Routine cultures are held for 5 days. Performing Locations *1: This test was performed at: [address], [address] , 11-24-2022 Note [facility] HISTORY & PHYSICAL/DISCHARGE SUMMARY NAME ACCOUNT SEX AGE ADMIT DISCHARGE PT MED. RECORD# NUMBER DATE DATE TYPE LINDA, [id number] F 52 11/17/22 1 [facility] [id number] ROOM: [facility] DATE OF : 66 DICTATING PHYSICIAN: Lois Melgar CHIEF COMPLAINT: Mental status changes. HISTORY OF PRESENT ILLNESS: The patient is a 52-year-old female with a past medical history significant for liver cirrhosis, noncompliance with medications, and mood disorder. I was called from the emergency room that she could not talk, and with her laboratory values and ammoni a level I initially felt she was acute encephalopathy, which would qualify for admission. However when I went to see her this morning, she is hyperverbal. She is confused , and her brother states that she has been like this, and he has had difficulty taking ca re of her at home. I do think that she would qualify for an observation overnight stay. She is able to ambulate the hallways well, and does not require therapy. Staff did contact the prateek rausch, and he is requesting some home healthcare at this point. PAST MEDICAL HISTORY: (1) Liver cirrhosi s. (2) Chronic alcohol abuse. (3) Depression with anxiety. (4) Irritable bowel syndrome. (5) Chronic tobacco use. PAST SURGICAL HISTORY: She states she prado s had surgeries, but she does not know what they are. MEDICATIONS: Current medications at home : Bupropion XL 300 mg daily, BuSpar 20 mg every 8 hours p.r.n., cit alopram 40 mg daily, clonidine 0.1 mg 3 times daily p.r.n., Constulose 45 mL every 6 hours, furosemi de 20 mg twice daily, Prazosin 3 mg at bedtime, Propranolol 10 mg 3 times daily, Seroquel 50 mg at bedtime, this has not been verified by pharmacy, and Xifaxan 550 mg twice daily. ALLERGIES: No known drug allergies. FAMILY HISTORY: She states b oth of her parents are alive. She is not sure how old they are or if they have any medical pro blems. SOCIAL HISTORY: She lives at home with h er brother. She states that she is a smoker. She also drinks alcohol on a jorgito ly basis. She cannot say how much she smokes or drinks. She denies any illicit drug use. REVIEW OF SYSTEMS: Review of systems is essentially negative from her standpoint. No headache. No visual kirk es. No fever or chills. No chest pain. No shortness of breath. No bowel or bladder changes. The rest of the review of systems were discussed Page 1 of 3 EVER MCKEON History Physical/Discharge Summary EVER MCKEON :1970 and were negative. PHYSICAL EXAMINATION GENERAL APPEARANCE: The patient was sitt ing up in no acute distress. She was alert and pleasant. VITAL SIGNS: Blood pressure 136/75, heart rate 62, respirations 16, temperature 97.5, oxygen saturation 95% on room air, weigh t 277 pounds with BMI of 46.11. HEENT: Unremarkable. NECK: Neck is supple. No JVD. LUNGS: Normal respiratory effort, equal lung expansion, clear to auscultation bilaterally. HEART: Regular rate and rhythm. ABDOMEN: Obese, positive bowel sounds, a nd nontender. EXTREMITIES: Trace of edema. NEUROLOGIC: She is alert and oriented to person only. Her speech is clear. She is hyperverbal, flight of ideas with no acu te other neurologic deficits. DIAGNOSTIC DATA: Previous CT of the abdo men and pelvis was reviewed from September which shows cirrhos is. There was not one repeated in the emergency room. Chest x-ray AP with cardiomegaly. No inf iltrate. CT of the brain without contrast complet ed in the emergency room with no acute abnormality. Laboratory data: White count is 4.3 and this morning 4.6, hemoglobin 11.8, hematocrit 36.0. Ammonia level was elev ated to 99; however, looking at previous ammonia levels as an outpatient she was 110 and 115. Wh ite count was 4.6, hemoglobin 11.8, hematocrit 36.2. IMPRESSION/PLAN: 1. Mental status changes. From my initia l report, it appeared to be acute encephalopathy; however, I think this is chronic with chronic liver cirrhosis, continued alcohol use, and ammonia level is the same as her outpatient laboratories. She was admitt ed overnight and observed with no acute condition to keep her in the hospital. I did discuss with her medication compliance. I am not sure how much she comprehended. She does have a brother at home who thinks that he Page 2 of 3 EVER MCKEON History Physical/Discharge Summary LINDA EVER :1970 can take her home with home healthcare. She will be discharged home today. With the help of utilization revi ew and home health, she should go back on her lactulose, as well as all of her home medications. 2. Liver cirrhosis. 3. Chronic alcohol use. 4. Chronic tobacco use. 5. Depression with anxiety. She needs outpatient followup and home health services. No medication changes on discharge. I evaluated the patient myse lf the above accurate E&M is done by me Poncho Melgar MD Dictated by yulisa Headley for Ya s (more content not included)... 11-23-2022 Note . [facility]phani[facility] MICRO - Microbiology ([place]) PROCEDURE: Blood Culture [id number] (bacterial) [*1] SOURCE: Blood BODY SITE: COLLECTED DATE/TIME: 11/17/19 16:10 EST RECEIVED DATE/TIME: 11/18/2022 14:12 EST START DATE/TIME: 11/18/2022 14:12 EST SOFIA E TEXT SOURCE: FINAL REPORTS Final Report [] Verified Date/Time/Personnel: 11/23/2022 14:59 EST Blood Culture: No Growth at 5 days. PRELIMINARY REPORTS Preliminary Report [] Verified Date/Time/Personnel: 11/18/2022 14:59 EST Culture has been received in lab and is no growth to date. Routine cultures are held for 5 days. Performing Locations *1: This test was performed at: [address], [id number]- [facility] 11-23-2022 Note . [facility] Found [facility] MICRO - Microbiology ([place]) PROCEDURE: Blood Culture [id number] (bacterial) [*1] SOURCE: Blood BODY SITE: COLLECTED DATE/TIME: 11/17/19 16:05 EST RECEIVED DATE/TIME: 11/18/2022 14:11 EST START DATE/TIME: 11/18/2022 14:12 EST SOFIA E TEXT SOURCE: FINAL REPORTS Final Report [] Verified Date/Time/Personnel: 11/23/2022 14:59 EST Blood Culture: No Growth at 5 days. PRELIMINARY REPORTS Preliminary Report [] Verified Date/Time/Personnel: 11/18/2022 14:59 EST Culture has been received in lab and is no growth to date. Routine cultures are held for 5 days. Performing Locations *1: This test was performed at: [address], [id number]- , 11-16-2022 Miscellaneous Formatting of this note migh t be different from the original. [facility] Notes No Show Documentation Ever Mckeon no showed for an appointment on 11/16/22 with Marilynn Carballo APRN.HAND HIDE STRETCHER at 2:00pm. She was scheduled for Hospital follow up . I called and unable to speak with the patient regarding her missed appointment. Ever did not state the reaso n that she missed her appointment was because she did not answer the call. Resources discussed/offered to patient: left message to call and schedule if needed. No show determined to be fault of patien t: Yes This is the patients third no show in [facility] last 12 months. Patient was not rescheduled at this time . Letter mailed : No Is this the Third or Fourth No Show ? N o Nadege Morales November 16, 2022 2:19 PM documented in this encounter 11-10-2022 Miscellaneous Formatting of this note migh t be different from the original. [facility] Notes No Show Documentation Ever Mckeon no showed for an appointment on 11/10/22 with Marilynn Carballo APRN.CNP at 2:00 pm. She was scheduled for a new patient hosp ital follow up. I called and spoke with the patient ruiz rding her missed appointment. Ever stated the reason that she missed h er appointment was because that she has . Been trying to call the office to resche may. Resources discussed/offered to patient: reschedule appointment. No show determined to be fau lt of patient: N/A-patient has not established care yet. This is the patients first no show in [facility] last 12 months. Patient was rescheduled for 11/16/22 at 2:00 pm. Letter mailed : N/A Is this the Third or Fourth No Show ? N o Krysten Simmons November 10, 2022 2:39 PM documented in this encounter 11-05-2022 Note . [facility] MICRO - Microbiology ([place]) PROCEDURE: Blood Culture [id number] (bacterial) [*1] SOURCE: Blood BODY SITE: COLLECTED DATE/TIME: 10/30/2022 19:39 EST RECEIVED DATE/TIME: 10/31/2022 17:26 EST START DATE/TIME: 10/31/2022 17:28 EST FREE TEXT SOURCE: FINAL REPORTS Final Report [] Verified Date/Time/Personnel: 11/05/2022 17:59 EST Blood Culture: No Growth at 5 days. PRELIMINARY REPORTS Preliminary Report [] Verified Date/Time/Personnel: 10/31/2022 1 7:59 EST Culture has been received in lab and is no growth to date. Routine cultures are held for 5 days. Performing Locations *1: This test was performed at: [address], [address]- , [place] 11-05-2022 Note . [facility] MICRO - Microbiology ([place]) PROCEDURE: Blood Culture [id number] (bacterial) [O1 *1] SOURCE: Blood BODY SITE: COLLECTED DATE/TIME: 10/30/2022 19:35 EST RECEIVED DATE/TIME: 10/31/2022 17:25 EST START DATE/TIME: 10/31/2022 17:27 EST FREE TEXT SOURCE: FINAL REPORTS Final Report [] Verified Date/Time/Personnel: 11/05/2022 17:59 EST Blood Culture: No Growth at 5 days. PRELIMINARY REPORTS Preliminary Report [] Verified Date/Time/Personnel: 10/31/2022 1 7:59 EST Culture has been received in lab and is no growth to date. Routine cultures are held for 5 days. Order Comments O1: Blood Culture (bacterial) fax to [phone] Collection date on specimen label Performing Locations *1: This test was performed at: [address], [address]- , [place] 11-02-2022 Discharge summary [facility] Date of Service 11/02/2022 Discharge Diagnosis 1. 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 2. Chronic pancytopenia. 3. Influenza A bronchitis. 4P anxiety/de pression/bipolar disorder. 5. Alcohol abuse. 6. Hypertension. 7. Alcoholic liver cirrhosis. 8. 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 - ICD-10-CM) Influenza due to other iden tified influenza virus with other respiratory manifestations (J10.1 - ICD-10-CM) Bronchitis, not specified as acute or c hronic (J40 - ICD-10-CM) Bipolar disorder, unspecified (F31.9 - ICD-10-CM) Anxiety disorder, unspecified (F41.9 - ICD-10-CM) Alcohol abuse, in remission (F10.11 - I CD-10-CM) Essential (primary) hypertension (I10 - ICD-10-CM) Additional Orders: Other status: Ammonia Leve l,11/02/22 5:01:00 EST, Next AM Draw (one day only), Blood, Once, Stop date 11/02/22 4:00:00 EST(Complete) Other status: BMP,11/02/22 5:01:00 EST, Next AM Draw (one day only), Blood, Once, Stop date 11/02/22 4:00:00 EST(Complete) Other status: CBC,11/02/22 5:01:00 EST, Next AM Draw (one day only), Blood, Once, Stop date 11/02/22 4:00:00 EST(Complete) Discontinued: Constulose 10 g/15 mL oral liquid,Dose : 30 gram(s) = 45 mL, Oral, q6h, # 480 mL, 0 Refill(s) Ordered: Constulose 10 g/15 mL oral liquid,Dose : 30 gram(s) = 45 mL, Oral, TID, X 30 day(s), # 4,050 mL, 0 Refill(s), 12/02/22 7:43:00 EST, Pharmacy: [id number], 165.1, cm, 10/31/22 1:25:00 EST, Height Other status: Discharge,11/02/22 7:44:0 0 EST, Discharged to: Home(Complete) Ordered: Discharge Activity ,Resume your pre-hospitalization activity, 11/02/22 7:44:00 EST Ordered: Discharge Diet,Fol low the diet changes as instructed by the dietitian, 11/02/22 7:44:00 EST Discontinued: Discharge Andrew e Equipment,Bedside commode, 99 month(s), 11/02/22 8:59:00 [facility] Hospital Course 52-year-old female with mul tiple medical problems listed above presented to the hospital complaining of confusion, generalized weakness, patient was found to have hepatic encephalopathy, elevated jamir ia, patient was started on l actulose, I did talk to her brother, who told me that the patient has been noncompliant with the lactulose at home, patient started having bowel movements here, her ammonia l evel decreased, she started to wake up, this morning she was awake alert and oriented x3, we will were able to have a good conversation, where the patient told me that she has been skipping some of her lactulose dosages because it caused her to have accidents, and she has things to do, appointments to go to, that is why she was hesitant to take it as prescribed, so I did educate the patient about the importance of having the lac tulose taken, as well as the rest of her medication, she seemed to understand, and she stated that the plan sounds reasonable, and she will try to stick with it. Patient was awake alert and oriented x3, denying any chest pain shortness breath cough fever chills, denies any abdominal pain nausea or vomiting, no headache lightheadedness or dizziness, she is tolera ting diet fairly well, patie nt is medically optimized for discharge home today. Allergies NKA Procedures None Consults No qualifying data available. Imaging Results and Diagnostics Please see Cerner Objective Vitals and Measurements T: 36.6 C (Oral) TMIN: 36.6 C (Oral) TMAX: 37.1 C (Oral) HR: 78 RR: 18 BP: 137/77 SpO2: 91% Weight Dosing Weight: 128.9 kg (10/31/22) Head: atraumatic normocephalic Neck: supple no JVD Lungs: clear to auscultation bilaterally , no wheezes no accessory muscle use. Heart: S1-S2 regular rate and rhythm, no murmurs Abdomen: soft nontender nondistended, ruth wel sounds are present all 4 quadrants Lower extremities: no cyanos is, no chronic skin changes, pulse palpable +1 bilaterally, no edema Skin: showed no rash Neurological: patient is kiki ke alert and oriented 3, no focal neurological deficit Pending Labs and Studies None Code Status Full code Admission Date 10/31/2022 Discharge Date 11/02/2022 Patient Instructions Take the lactulose 3 times a day, however if you do not have a bowel movement by early afternoon take an extra dose of lactulose, you need to have at least 2 bowel movements each day. Medications Changed lactulose (Constulose 10 g/1 5 mL oral liquid)45 Milliliter by mouth three (3) times a day for 30 Days. Refills: 0. Unchanged buPROPion (buPROPion 300 mg/ 24 hours (XL) oral tablet, extended release)1 tab(s) by mouth once a day. busPIRone (busPIRone 10 mg o ral tablet)2 tab(s) by mouth three (3) times a day as needed Anxiety. citalopram (citalopram 40 mg oral tablet )1 tab(s) by mouth once a day. cloNIDine (cloNIDine 0.1 mg oral tablet)0.01 Milligram by mouth two (2) times a day as needed Anxiety. [id number] Milligram by mouth every 6 hours as needed as needed for allergy symptoms. ferrous sulfate (IRON (lauren us sulfate 325 mg) 65 mg oral tablet)1 tab(s) by mouth once a day. Take with food.. furosemide (Lasix 20 mg oral tablet)1 tab(s) by mouth two (2) times a day. Refills: 0. prazosin (prazosin 1 mg oral capsule)2 M illigram by mouth daily at bedtime. propranolol (propranolol 10 mg oral tablet)1 tab(s) by mouth three (3) times a day. Refills: 0. [id number] Milligram by mouth daily a t bedtime. rifaximin (Xifaxan 550 mg oral tablet)1 tab(s) by mouth two (2) times a day. rifaximin (Xifaxan 550 mg or al tablet)1 tab(s) by mouth two (2) times a day. Refills: 0. Follow Up Follow Up with TIM ROBLEDO CNP When Within 1-2 days Why: Please call the office to schedule a follow up appointment Where: [address] [place] [id number]- Follow Up Appointments No qualifying data available. Follow Up Labs/Studies Discharge Labs No Follow-up Labs Discharge Studies No Follow-up Studies Discharge Diet Discharge Diet - Ordered -- Follow the diet changes as instructed by the dietitian, 11/02/22 7:44:00 EST Discharge Activity Discharge Activity - Ordered -- Resume your pre-hospitalization david chow, 11/02/22 7:44:00 EST Condition on Discharge Stable Readmission Risk/Palliative Score LACE Score: 10 (11/02/22 10:12:00) LACE Score: 12 (11/02/22 08:44:00) Palliative Total Score: 3 (11/02/22 10:1 2:00) Discharge Disposition Home Time Spent 32 minutes Digitally Signed by SOHA DANIELS MD on 11/02/2022 02:02 PM 11-02-2022 Hospital Discharge Patient Education 11/02/2022 10:06:32 Ammonia Test Ammonia Test [facility] instructions Why am I having this test? Work Phone: ( [phone] Ammonia testing is used to h p diagnose and monitor severe liver diseases. It is also used to diagnose and monitor a brain disorder that can develop in individuals who have liver disease (hepatic encephalopathy). What is being tested? This test measures the level s of ammonia in the blood. Ammonia levels can rise when the liver and kidneys are not working well enough to get rid of urea. Urea is produced by the liver when it breaks down proteins from food. A buildup of ammonia in the body can cause mental and neurological changes that can lead to confusion, disorientation, sleepiness, and eventually coma and even . Infants and children with increased ammonia levels may become i rritable, may vomit often, and may become increasingly lethargic. If ammonia levels stay too high, they may experience seizures and breathing difficulties, and may go into a coma and . What kind of sample is taken? A blood sample is needed for this test. It is usually collected by inserting a needle into a blood vessel. How do I prepare for this test? Follow instructions from you r health care provider or your child's health care provider about avoiding the following before the test: Exercise. Smoking cigarettes. Certain medicines. Ask your health care provider what medicines to avoid. How are the results reported? The test results will be rep orted as ranges. The health care provider will compare the results to normal ranges that were established after testing a large group of people (reference ranges). Reference ranges may vary [facility]. For this test, common reference ranges are: Adult: 10 80 mcg/dL or 6 47 micromol/L (SI units). Child: 40 80 mcg/dL. : 90 150 mcg/dL. What do the results mean? Increased levels of ammonia may mean silvino t you have or your child has: Liver disease. Gastrointestinal (GI) bleeding or GI ob struction. Severe heart failure. Hemolytic disease of the . Hepatic encephalopathy. A genetic metabolic disorder. Samuel syndrome. Decreased levels of ammonia may mean silvino t you have or your child has: High blood pressure (hypertension). A genetic metabolic syndrome. Talk with the health care provider about what the results mean. Questions to ask your health care provid er Ask your health care provider, or the de partment that is doing the test: When will my results be ready? How will I get my results? What are my treatment options? What other tests do I need? What are my next steps? Summary Ammonia testing is used to help diagnos e and monitor severe liver diseases. This test measures the leve ls of ammonia in the blood. Ammonia levels can rise when the liver and kidneys are not working well enough to get rid of urea. Urea is produced by the liver when it breaks down proteins from food. A buildup of ammonia in the body can cause mental and neurological changes that can lead to confusion, disorientation, sleepiness, and eventually coma and even . This information is not inte nded to replace advice given to you by your health care provider. Make sure you discuss any questions you have with your health care provider. Document Released: 6 Document Revised: 09/23/2018 Document Reviewed: 05/10/2018 10sec Patient Education 2020 [employer]. Follow Up Care 10/31/2022 01:02:36 With:TIM ROBLEDO CNP Address: [address] [place] [id number]- When:1-2 days Comments:Please call the office to stormy álvarez a follow up appointment 11-02-2022 Note [facility] Discharge Instructions Thank you for allowing [facility] to assist you with your healthcare needs. The following is important discharge information regarding your hospital visit. Your Care Team TIM ROBLEDO CNP What to do next Instructions From Your Doctor Take the lactulose 3 times a day, however if you do not have a bowel movement by early afternoon take an extra dose of lactulose, you need to have at least 2 bowel movements each day. Follow Up Appointments Follow Up with TIM ROBLEDO CNP When Within 1-2 days Why: Please call the office to schedule a follow up appointment Where: [address] [place] [address] [address] [place] [address]- The Following Activity and Diet Have Bee n Ordered for You Discharge Activity - Ordered -- Resume your pre-hospitalization acti vity, 11/02/22 7:44:00 EST Discharge Diet - Ordered -- Follow the diet changes as instructed by the dietitian, 11/02/22 7:44:00 EST The Following Equipment Has Been Ordered for You No qualifying data available. The Following Treatments Have Been Order ed for You Discharge Labs No qualifying data available. Discharge Radiology No qualifying data available. Other Therapies No qualifying data available. Post Acute Orders No qualifying data available. Someone Will Contact You Regarding These Home Health Referrals No home referrals have been ordered for you. No one will call you. Allergies NKA Medications Please ask your primary doct or or pharmacist before taking any other medication not listed, including over the counter drugs, herbal medications, vitamins and or supplements as they may interact with your home medications. What How Much When Instructi ons Last Dose Changed lactulose (Constulose 10 g/ 15 mL oral liquid) 45 Milliliter by mouth Three (3) times a day Duration: 30 Days Pickup at [id number] Unchanged buPROPion (buPROPi on 300 mg/ 24 hours (XL) oral tablet, extended release) 1 tab(s) by mouth Once a day Unchanged busPIRone (busPIRone 10 mg ora l tablet) 2 tab(s) by mouth Three (3) times a day as needed for Anxi ety Unchanged citalopram (citalopram 40 mg o ral tablet) 1 tab(s) by mouth Once a day Unchanged cloNIDine (cloNIDine 0.1 mg or al tablet) 0.01 Milligram by mouth Two (2) times a day as needed for Anxiet y Unchanged diphenhydrAMINE 25 Milligram by mouth Every 6 hours as needed for as needed fo r allergy symptoms Unchanged ferrous sulfate (IRON (ferrous sulfate 325 mg) 65 mg oral tablet) 1 tab(s) by mouth Once a day Take with food. Unchanged furosemide (Lasix 20 mg oral t ablet) 1 tab(s) by mouth Two (2) times a day Unchanged prazosin (prazosin 1 mg oral c apsule) 2 Milligram by mouth Daily at bedtime Unchanged propranolol (propranolol 10 mg oral tablet) 1 tab(s) by mouth Three (3) times a day Unchanged QUEtiapine 100 Milligram by mouth Daily at bedtime Unchanged rifaximin (Xifaxan 550 mg oral tablet) 1 tab(s) by mouth Two (2) times a day Unchanged rifaximin (Xifaxan 550 mg oral tablet) 1 tab(s) by mouth Two (2) times a day Pharmacy Information [id number]: [address], [place] [id number] [phone] Please take this list to you r next doctor s visit. Bring all medications you take, including over the counter medications, herbals and other supplements with you to your doctor s visit. Patients and fam ilies are reminded to discar d old lists and to update any records with all medication providers or retail pharmacies. Medication Leaflets lactulose (oral) (LAK too lose) Constulose, Generlac, Kristalose What is the most important information I should know about lactulose? Use only as directed. Tell your doctor if you use other medicines or have other medical conditions or allergies. What is lactulose? Lactulose is used to treat chronic cons tipation. Lactulose is sometimes used to treat or prevent certain conditions of the brain that are caused by liver failure. These conditions can lead to confusion, problems with memory or thinking, behavior briceno ges, tremors, feeling irrita ble, sleep problems, loss of coordination, and loss of consciousness. Lactulose may also be used for purposes not listed in this medication guide. What should I discuss with my healthcar e provider before taking lactulose? You should not use lactulos e if you are on a special diet low in galactose (milk sugar). Tell your doctor if you have ever had: diabetes; or if you need to have any typ e of intestinal test using a scope (such as a colonoscopy). Tell your doctor if you are or . How should I take lactulose? Follow all directions on yo ur prescription label and read all medication guides or instruction sheets. Use the medicine exactly as directed. Mix lactulose powder with at least 4 ou nces of water, milk, or fruit juice. Measure liquid medicine wit h the supplied measuring device (not a kitchen spoon). Lactulose should produce a bowel moveme nt within 24 to 48 hours. If you use this medicine long-term, you may need frequent medical tests. Tell your doctor if you have a planned colonoscopy or proctoscopy procedure. Store tightly closed at rafaela m temperature, away from moisture and heat. Avoid freezing. The liquid may turn darker in color, but this will not affect the medicine. Do not use the medicine if it becomes very dark or gets thicker or thinner in texture. What happens if I miss a dose? Take the medicine as soon a s you can, but skip the missed dose if it is almost time for your next dose. Do not take two doses at one time. What happens if I overdose? Seek emergency medical atte ntion or call the Poison Help line at . Overdose may cause nausea, vomiting, diarrhea, and stomach cramps, or symptoms of low blood potassium or low blood sodium (confusion, weakness, constipation, irregular heartbeats, fluttering in your ch est, increased thirst or uri nation, numbness or tingling, muscle weakness or limp feeling). What should I avoid while taking lactul ose? Ask your doctor before taki ng any other laxative or an antacid, and take only the type your doctor recommends. What are the possible side effects of l actulose? Get emergency medical help if you have signs of an allergic reaction: hives; difficult breathing; swelling of your face, lips, tongue, or throat. Stop using lactulose and ca ll your doctor at once if you have severe or ongoing diarrhea. Common side effects may include: bloating, gas; stomach pain; diarrhea; or nausea, vomiting. This is not a complete list of side effects and others may occur. Call your doctor for medical advice about side effects. You may report side effects to FDA at 2-469-PDA-2828. What other drugs will affect lactulose? Other drugs may affect lact ulose, including prescription and kugg-fcm-shjdiwm medicines, vitamins, and herbal products. Tell your doctor about all other medicines you use. Where can I get more information? Your pharmacist can provide more inform ation about lactulose. Remember, keep this and all other medicines out of the reach of children, never share your medicines with others, and use this medication only for the indication prescribed. Every effort has been made to ensure that the information provided by [employer]. ('[employer]') is accurate, up-to-date, and complete, but no guarantee is made to that effect. Drug information con tained herein may be time se nsitive. [employer] information has been compiled for use by healthcare practitioners and consumers in the [place] and therefore [employer] does not warrant that uses outside o f the [place] are appr opriate, unless specifically indicated otherwise. [employer]'s drug information does not endorse drugs, diagnose patients or recommend therapy. [employer] drug information is an in formational resource designe d to assist licensed healthcare practitioners in caring for their patients and/or to serve consumers viewing this service as a supplement to, and not a substitute for, the ex pertise, skill, knowledge an d judgment of healthcare practitioners. The absence of a warning for a given drug or drug combination in no way should be construed to indicate that the drug or drug combinat ion is safe, effective or ap propriate for any given patient. [employer] does not assume any responsibility for any aspect of healthcare administered with the aid of information [employer] provides. The informat ion contained herein is not intended to cover all possible uses, directions, precautions, warnings, drug interactions, allergic reactions, or adverse effects. If you have questions about the drugs you a re taking, check with your doctor, nurse or pharmacist. Copyright 7162-4703 [employer]. Version: 3.01. Revision Date: 07/29/2021. Education Materials Ammonia Test Why am I having this test? Ammonia testing is used to h elp diagnose and monitor severe liver diseases. It is also used to diagnose and monitor a brain disorder that can develop in individuals who have liver disease (hepatic encephalopathy). What is being tested? This test measures the level s of ammonia in the blood. Ammonia levels can rise when the liver and kidneys are not working well enough to get rid of urea. Urea is produced by the liver when it breaks down proteins from food. A buildup of ammonia in the body can cause mental and neurological changes that can lead to confusion, disorientation, sleepiness, and eventually coma and even . Infants and children with increased ammonia levels may become i rritable, may vomit often, and may become increasingly lethargic. If ammonia levels stay too high, they may experience seizures and breathing difficulties, and may go into a coma and . What kind of sample is taken? A blood sample is needed for this test. It is usually collected by inserting a needle into a blood vessel. How do I prepare for this test? Follow instructions from you r health care provider or your child's health care provider about avoiding the following before the test: Exercise. Smoking cigarettes. Certain medicines. Ask your health care provider what medicines to avoid. How are the results reported? The test results will be rep orted as ranges. The health care provider will compare the results to normal ranges that were established after testing a large group of people (reference ranges). Reference ranges may vary [facility]. For this test, common reference ranges are: Adult: 10 80 mcg/dL or 6 47 micromol/L ( SI units). Child: 40 80 mcg/dL. [place]: 90 150 mcg/dL. What do the results mean? Increased levels of ammonia may mean silvino t you have or your child has: Liver disease. Gastrointestinal (GI) bleeding or GI obs truction. Severe heart failure. Hemolytic disease of the . Hepatic encephalopathy. A genetic metabolic disorder. Samuel syndrome. Decreased levels of ammonia may mean silvino t you have or your child has: High blood pressure (hypertension). A genetic metabolic syndrome. Talk with the health care provider about what the results mean. Questions to ask your health care provid er Ask your health care provider, or the de partment that is doing the test: When will my results be ready? How will I get my results? What are my treatment options? What other tests do I need? What are my next steps? Summary Ammonia testing is used to help diagnose and monitor severe liver diseases. This test measures the level s of ammonia in the blood. Ammonia levels can rise when the liver and kidneys are not working well enough to get rid of urea. Urea is produced by the liver when it breaks down proteins from food. A buildup of ammonia in the body can cause mental and neurological changes that can lead to confusion, disorientation, sleepiness, and eventually coma and even . This information is not inte nded to replace advice given to you by your health care provider. Make sure you discuss any questions you have with your health care provider. Document Released: 6 Document Revised: 09/23/2018 Document Reviewed: 05/10/2018 Elsevier Patient Education 2020 Elsevier Inc. Additional Information VACCINATE! IT SAVES LIVES! Members of the community who have not yet received the COVID-19 vaccine and would like to receive it can visit one of [facility] vaccine clinics. There are many vaccine clinic locations within the [facility]. For locations and available times, please visit [email or web address] It is important to note that some COVID mobile vaccine clinics are held outdoors and may be canceled in rainy or stormy conditions. To learn more about pediatr ic vaccinations (ages 5-11), we invite you to visit the [employer] webpage. [email or web address] T o learn more about the COVID -19 vaccine, we invite you to visit the [employer] website for a list of frequently asked questions. [email or web address] [place] [facility] Patient Portal Access I nstructions: [facility] and access your personal medical information anytime with the [employer] Patient Portal.If you would like a full copy of your medical records, please conta ct the [facility] Records Department, Wednesday through Wednesday between 8a.m. and 4:30p.m. Please follow the directions below to access the portal: 1.Access the email account y jaquan provided upon registration to the hospital.2.Look for an invitation email from [facility].3.Open the email and access the invitation link: Accept Invitation to [facility] an [facility]4.Fill in the required gonzáles to create your account. Sign into [email or web address].[facility] wi th your username and password that you created in the above steps to stay up to date. You can then view a summary of results, a summary of your visits, and the ability to alpa nload your summaries to your computer or send the information securely to a physician. Remember that your healthcare information is confidential, so carefully consider who you will allow to register on the [employer] Patient Portal for access to your information. You can also access the [employer] Patient Portal on the [employer] [place]. Simply click on Health Records under Health Data and then click on the [employer] logo. HOW TO SAFELY DISPOSE OF PRESCRIPTION ME DICATIONS Please use one of the follow ing methods to safely dispose of your unused medications. 1.Use a drug disposal kit: t he drug disposal pouch allows you to safely discard your old and unused drugs. Ask your nurse to give you one when you are discharged.2.Visit a local take-back location: Many local pharmacies and police departments have programs that collect old and unwanted prescription drugs. Call your local pharmacy or go to http://[employer]/8N7Bk8k to find one close to you.3.Make use of ho usehold items: Use cat litte r or old coffee grounds to dispose medications if other options are not available. Mix your drugs with these household products, seal them in an airtight container and throw it into the garbage. Call [place] EPA: 511.205.4875 to be sure your drugs can be disposed of in this way. Some medicines may require a different approach.4.Never flush your medications down the toilet. IF YOU HAVE BEEN PRESCRIBED AN OPIOID FO R PAIN If you have been prescribed an opioid (such as hydrocodone, oxycodone or morphine), it is critical to understand the possible side effects and risks of opioid pain medications. Even when taken as direct ed, opioids can have several side effect s including: Tolerance, meaning you migh t need to take more of a medication for the same pain relief. Nausea, vomiting and/or constipation. Sleepiness, dizziness, dry mouth, confusion, depression or itching. Physic al dependence, meaning you h ave withdrawal symptoms when a medication is stopped, can develop within a few days. KNOW YOUR RESPONSIBILITIES It is important to know exac tly how much and how often to take the opioid pain medications you are prescribed. Never take opioids in highe r amounts or more often than prescribed. Do not combine opioids with alcohol or other drugs that cause drowsiness, such as benzodiazepines, also known as benzos, including di azepam and alprazolam, muscl e relaxants or sleep aids. Never sell or share prescription opioids. This is illegal. Store opioids in a secure place and out of reach of others (including children, family, friends and visitors). The last page of this document has been signed and retained as a CHART COPY. Signatures Patient Education Materials Ammonia Test Medication Leaflets lactulose (oral) My discharge plan and instru ctions have been reviewed and explained to me and I,EVER MCKEON understand my current condition and have read and understand these discharge instructions. I have received a written copy of the plan/in structions. If I have questions, I am aware that I should contact my doctor. 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: Date/Time: Relationship to Patient: Witness Name/Signature: Date/Time: 11-01-2022 Note Subjective: Patient seen for hepatic enc ephalopathy [facility] patient was examined and nette luated today, he was awake, alert, followed commands, but she was still confused, and it takes her a while to answer some of the questions, some of the answers she got them w rite some of the answers she was getting wrong she is still having a sitter with her because nursing staff reported that she keeps on trying to climb out of the bed even though we are telling her at silvino t if she needs to get out of the bed she needs to call for help since she is unsteady, nursing staff reported 3 bowel movements over the last 24 hours, and 2 bowel movements since this morning. Ammonia level is dropping, and the p atient is still confused but she is definitely more awake than yesterday Vitals Signs(Last 24 hrs)__L ast Charted Minimum Maximum Temp36.8(NOV 01 14:28)36.8(NOV 01:) 37.0(OCT 31:) Resp Rate17(NOV 01:)16(OCT 31 23:53 )18(OCT 31:) EFS418(NOV 01:)131(NOV 01:)C 1 60(OCT 31:) DBP75(NOV 01:)74(NOV 01:02)H 92( OCT 31:) Physical examination: HEENT, is atraumatic normocephalic, pupi ls are equal, no pallor Neck supple no JVD Lungs clear to auscultation bilaterally, no wheezes, no rhonchi, no accessory muscle use Heart S1-S2 regular Abdomen soft nontender nondistended simin l sounds are present all 4 quadrants Lower extremities show no edema, no cyan osis, pulses palpable +2 bilaterally Skin showed no rash Neurological examination pat ient is awake alert and oriented to place and person, confused, cranial nerves are grossly intact, no focal neurological defect could be appreciated Assessment and plan: 1. Hepatic encephalopathy. 2. Chronic pancytopenia. 3. Influenza A bronchitis. 4. Anxiety/depression/bipolar disorder. 5. Alcohol abuse. 6. Hypertension. 7. Alcohol liver cirrhosis. 8. Noncompliance Plan: 1. Continue with the lactulose 2. Continue with the rifaximin, proprano lol. 3. Continue to monitor patient clinicall y as well as her labs. I did talk to the patient's brother Vaibhav, updated him about the patient's condition, all his questions were answered, all his concerns were addressed. Labs: Basic Metabolic Profile Glucose Level: 132 mg/dL High (11/01/22 04:49:00) Sodium Level: 141 mEq/L (11/01/22 04:49: 00) Potassium Level: 3.9 mEq/L (11/01/22 04: 49:00) Chloride: 109 mEq/L (11/01/22 04:49:00) CO2: 24 mEq/L (11/01/22 04:49:00) BUN/Creatinine Ratio: 21.4 ratio ( 04:49:00) Complete Blood Count WBC: 5.8 10^3/mcL (11/01/22 04:49:00) RBC: 4.66 10^6/mcL (11/01/22 04:49:00) Hgb: 12.4 G/dL (11/01/22 04:49:00) Hct: 38.7 % (11/01/22 04:49:00) MCV: 83.2 fL (11/01/22 04:49:00) MCH: 26.7 pg Low (11/01/22 04:49:00) MCHC: 32 G/dL (11/01/22 04:49:00) RDW: 27.9 % High (11/01/22 04:49:00) Platelet: 70 10^3/mcL Low (11/01/22 04:4 9:00) MPV: 8.6 fL (11/01/22 04:49:00) Medications (18) Active Scheduled: (9) bupropion 300 mg/24 hours ER tablet 300 mg 1 tab(s), Oral, qDay citalopram 40 mg tablet 40 mg 1 tab(s), Oral, qDay ferrous sulfate 325 mg Tablet 325 mg 1 t ab(s), Oral, qDay furosemide 20 mg tablet 20 mg 1 tab(s), Oral, BID lactulose 20 g/30 mL UD cup 40 gram(s) 6 0 mL, Oral, q8h prazosin 2 mg capsule 2 mg 1 cap(s), Ora l, qHS propranolol 10 mg tablet 10 mg 1 tab(s), Oral, TID QUEtiapine 100 mg tablet 100 mg 1 tab(s) , Oral, qHS rifaximin 550 mg tablet 550 mg 1 tab(s), Oral, BID Continuous: (0) PRN: (9) albuterol - ipratropium 2.5 mg-0.5 mg/3 mL Inhal Sheri UD 3 mL, Inhalation, q4hRT busPIRone 10 mg Tablet 20 mg 2 tab(s), O ral, TID clonidine 0.1 mg tablet 0.1 mg 1 tab(s), Oral, BID diphenhydramine 25 mg tablet 25 mg 1 tab (s), Oral, q6hr guaifenesin 100 mg/5 mL 120 mL liquid 20 0 mg 10 mL, Oral, q4h melatonin 3 mg tablet 3 mg 1 tab(s), Ora l, qHS ondansetron 2 mg/ 1 mL 2 mL INJ 4 mg 2 m L, IV Push, q4h prochlorperazine 10 mg/2 mL vial 5 mg 1 mL, IV Push, q6h tramadol 50 mg Tablet 50 mg 1 tab(s), Or al, q4h Signature: Soha Daniels MD Digitally Signed by SOHA DANIELS MD on 11/01/2022 03:11 PM 10-31-2022 Evaluation + Plan note Extracted from: Title:Clinical Document Author:MUSTAPHA WOODWARD MD Date:10/31/22 [facility] Medicine Hospitalist History and Physical Date of Admission: 10/31/2022 Chief complaint: Change in mental status History of present illness: History is t aken from talking with the emergency room physician at [facility] as well as talking with the patient. Patient is a very poor historian currently due to her mental status. Patient has a past medical history of an xiety/depression, alcohol abuse, hypertension, bipolar disorder, alcoholic cirrhosis of the liver, hepatic encephalopathy, portal hypertension, urinary tract infection. Patient was last discharged from here on 10/07/2022 and during that admission the patient was here for altered mental status and was found to have hepatic encephalopathy as well as alcohol withdrawal. P washing[place] was seen by hematology and gastro enterology. Patient had her lactulose dose adjusted during the admission. Patient was ultimately discharged to follow- up with her primary education trainer at [facility]. Patient is not able to tell me for how l jacinto she has been getting progressively worsening confusion. She did tell me that she is compliant with her medications. She states that she takes the lactulose an d that she has been having around 3 simin l movements a day. She denies fevers, chills or night sweats. Denies abdominal pain. Labs and imaging from [facility] CT head without contrast per emergency r oom physician unremarkable. I did not see the results. Alcohol level less than 3 Ammonia level 110 WBC 4.1 hemoglobin 13.2 platelet count 8 4 Sodium 142 potassium 4.5 glucose 95 crea tinine 0.67 AST 47 alkaline phosphatase 179 total bi lirubin 1.2 ALT 33 Negative for COVID-19 Drug screen negative High-sensitivity troponin 7.3 Positive for influenza A Lactic acid 1.0 proBNP 67 Urinalysis not concerning for infection emergency room physician did try to a dmit her there but there hospitalist wanted her transferred to where they had a education trainer. Past medical history: anxiety/depression, alcohol abuse, hyper tension, bipolar disorder, alcoholic cirrhosis of the liver, hepatic encephalopathy, portal hypertension, urinary tract infection. Family history: Hypertension Social history: Patient reports that she has not had any alcohol since her admission here in September which was several weeks ago. Medications: Home Medications (10) Active busPIRone 10 mg oral tablet 10 mg = 1 ta b(s), Oral, TID citalopram 40 mg oral tablet 40 mg = 1 t ab(s), Oral, qDay cloNIDine 0.1 mg oral tablet 0.01 mg, GA N, Oral ferrous sulfate 325 mg (65 mg elemental iron) oral delayed release tablet 325 mg = 1 tab(s), Oral, qDay lactulose 10 g/15 mL oral syrup 30 gram( s) = 45 mL, Oral, q6h Lasix 20 mg oral tablet 20 mg = 1 tab(s) , Oral, BID prazosin 1 mg oral capsule 1 mg, Oral, 1 hHS propranolol 10 mg oral tablet 10 mg = 1 tab(s), Oral, TID SEROquel 50 mg oral tablet 50 mg = 1 tab (s), Oral, qHS Xifaxan 550 mg oral tablet 550 mg = 1 ta b(s), Oral, BID Allergies: NKA Review of systems: See HPI for pertinent positives and nega tives. All other review of systems have been reviewed and they are negative. Temperature 98.8 respiratory 12 heart ra te 101 blood pressure 144/88, 98% room air. Physical examination: HEENT: No Pallor, No Icterus Cardiac: RRR, No murmur Lungs: CTA, good air entry Abdomen: Soft Non tender Musculoskeletal: No joint pains or swell ing Extremities: No edema, good pulses Neurological: Alert but very confused Skin: No rash, no nodules Labs: As mentioned in the HPI Assessment and plan: Patient presents as a transfer from [facility] emergency room due to having encephalopathy. Hepatic encephalopathy. Ammonia level wa s 110. Very likely that she is not compliant with her home medications. I will increase her home lactulose from 30 g every 6 hours to 40 g. We will check repeat l abs in the morning. No concern for spont aneous bacterial peritonitis at this point. Would have low threshold for starting antibiotics if she were to become febrile. Chronic pancytopenia secondary to alcoho lic cirrhosis of the liver. Stable. Was evaluated by hematology during recent admission. Influenza A bronchitis. She is not hypox ic and therefore we will hold off on starting any treatment. Will monitor closely. Anxiety/depression/bipolar disorder. We will continue her home medications. I think her current confusion is all secondary to hepatic encephalopathy. I do not think that there is any psychiatric component at this point. History of alcohol abuse. Patient report s that she has not had any alcohol for several weeks. Hypertension. Continue home medications. Well-controlled Alcoholic cirrhosis of the liver with po rtal hypertension. I did increase her lactulose as mentioned above. Continue Lasix, rifaximin. Patient can follow-up outpatient with her primary education trainer in [place]. Prophylaxis SCDs CODE STATUS full code [facility] 01-07-2023 NoteSubjective: Patient seen for hepatic encephalopathy patient was examined and evaluated today, patient was admitted and seen earlier by one of our nut steamer, I examined her again this morning she still confused, she is oriented to self and place, but not to time, I had to ask the questions multiple times in order to get a response, and sometimes the response is irrelevant, so definitely the patient is remaining confused, according to the nursing staff she was agitated and she was trying to get out of the bed so they have her with a sitter for now. Patient stated that she is not having any abdominal pain or chest pain, but she feels sick when I asked her what does she mean by feeling sick, she said that she is nauseated so we will give her some antinausea medicine and will monitor clinically, she did not have any bowel movement yet, therefore I amplanning to increase lactulose frequency. Vitals Signs(Last 24 hrs)__Last Charted Minimum Maximum Temp36.6(OCT 31:09)36.6(OCT 31:09)37(OCT 31:45) Resp Rate16(OCT 31:09)16(OCT 31 07:09)17(OCT 31:45) EGT434(OCT 31:09)103(OCT 31:09)129(MELANIE 07 01:45) DBPC 49(OCT 31:09)C 49(OCT 31 07:09)72(OCT 31:45) Physical examination: HEENT, is atraumatic normocephalic, pupils are equal, no pallor Neck supple no JVD Lungs clear to auscultation bilaterally, no wheezes, no rhonchi, no accessory muscle use Heart S1-S2 regular Abdomen soft nontender nondistended bowel sounds are present all 4 quadrants Lower extremities show no edema, no cyanosis, pulses palpable +2 bilaterally Skin showed no rash Neurological examination patient is awake alert and oriented to place and person, confused, cranial nerves are grossly intact, no focal neurological defect could be appreciated Assessment and plan: 1. Hepatic encephalopathy. 2. Chronic pancytopenia. 3. Influenza A bronchitis. 4. Anxiety/depression/bipolar disorder. 5. Alcohol abuse. 6. Hypertension. 7. Alcohol liver cirrhosis. 8. Noncompliance Plan: 1. Patient remains confused, I will increase the rate of the lactulose to 4 hours instead of every 6, since the patient did not have any bowel movement yet, once the patient started having 1-2 bowel movements a day we will decrease the frequency again. 2. Continue with the rifaximin, propranolol. 3. Continue to monitor patient clinically as well as her labs. I did talk to the patient's brother Vaibhav, updated him about the patient's condition, the brother stated that the patient has been having multiple bowel movements with the use of the lactulose to the point that she was having multiple accidents at home that is why she stopped taking the medication, I did explain to the brother when the patient is more awake I will explain to her the concept of using the lactulose and the reasons beyond it and the best way to use it. All his questions were answered, all his concerns were addressed. Labs: Basic Metabolic Profile Glucose Level: 244 mg/dL High (10/31/22 04:17:00) Sodium Level: 142 mEq/L (10/31/22 04:17:00) Potassium Level: 4 mEq/L (10/31/22 04:17:00) Chloride: 111 mEq/L High (10/31/22 04:17:00) CO2: 22 mEq/L (10/31/22 04:17:00) BUN/Creatinine Ratio: 18.3 ratio (10/31/22 04:17:00) Complete Blood Count WBC: 4.3 10^3/mcL Low (10/31/22 04:17:00) RBC: 4.51 10^6/mcL (10/31/22 04:17:00) Hgb: 12.1 G/dL (10/31/22 04:17:00) Hct: 37.5 % (10/31/22 04:17:00) MCV: 83.1 fL (10/31/22 04:17:00) MCH: 26.8 pg Low (10/31/22 04:17:00) MCHC: 32.3 G/dL (10/31/22 04:17:00) RDW: 28.4 % High (10/31/22 04:17:00) Platelet: 80 10^3/mcL Low (10/31/22 04:17:00) MPV: 8.6 fL (10/31/22 04:17:00) Medications (18) Active Scheduled: (9) bupropion 300 mg/24 hours ER tablet 300 mg 1 tab(s), Oral, qDay citalopram 40 mg tablet 40 mg 1 tab(s), Oral, qDay ferrous sulfate 325 mg Tablet 325 mg 1 tab(s), Oral, qDay furosemide 20 mg tablet 20 mg 1 tab(s), Oral, BID lactulose 20 g/30 mL UD cup 40 gram(s) 60 mL, Oral, q6h prazosin 2 mg capsule 2 mg 1 cap(s), Oral, qHS propranolol 10 mg tablet 10 mg 1 tab(s), Oral, TID QUEtiapine 100 mg tablet 100 mg 1 tab(s), Oral, qHS rifaximin 550 mg tablet 550 mg 1 tab(s), Oral, BID Continuous: (0) PRN: (9) albuterol - ipratropium 2.5 mg-0.5 mg/3 mL Inhal Sheri UD 3 mL, Inhalation, q4hRT busPIRone 10 mg Tablet 20 mg 2 tab(s), Oral, TID clonidine 0.1 mg tablet 0.1 mg 1 tab(s), Oral, BID diphenhydramine 25 mg tablet 25 mg 1 tab(s), Oral, q6hr guaifenesin 100 mg/5 mL 120 mL liquid 200 mg 10 mL, Oral, q4h melatonin 3 mg tablet 3 mg 1 tab(s), Oral, qHS ondansetron 2 mg/ 1 mL 2 mL INJ 4 mg 2 mL, IV Push, q4h prochlorperazine 10 mg/2 mL vial 5 mg 1 mL, IV Push, q6h tramadol 50 mg Tablet 50 mg 1 tab(s), Oral, q4h Signature: Soha Daniels MD Digitally Signed by SOHA DANIELS MD on 10/31/2022 08:21 [facility]01-07-2023 History and physical note [facility] Medicine Hospitalist History and Physical Date of Admission: 10/31/2022 Chief complaint: Change in mental status History of present illness: History is taken from talking with the emergency room physician at [facility] as well as talking with the patient. Patient is a very poor historian currently due to her mental status. Patient has a past medical history of anxiety/depression, alcohol abuse, hypertension, bipolar disorder, alcoholic cirrhosis of the liver, hepatic encephalopathy, portal hypertension, urinary tract infection. Patient was last discharged from here on 10/07/2022 and during that admission the patient was here for altered mental status and was found to have hepatic encephalopathy as well as alcohol withdrawal. Patient was seen by hematology and gastroenterology. Patient had her lactulose dose adjusted during the admission. Patient was ultimately discharged to follow-up with her primary education trainer at [facility]. Patient is not able to tell me for how long she has been getting progressively worsening confusion. She did tell me that she is compliant with her medications. She states that she takes the lactulose and that she has been having around 3 bowel movements a day. She denies fevers, chills or night sweats. Denies abdominal pain. Labs and imaging from [facility] CT head without contrast per emergency room physician unremarkable. I did not see the results. Alcohol level less than 3 Ammonia level 110 WBC 4.1 hemoglobin 13.2 platelet count 84 Sodium 142 potassium 4.5 glucose 95 creatinine 0.67 AST 47 alkaline phosphatase 179 total bilirubin 1.2 ALT 33 Negative for COVID-19 Drug screen negative High-sensitivity troponin 7.3 Positive for influenza A Lactic acid 1.0 proBNP 67 Urinalysis not concerning for infection emergency room physician did try to admit her there but there hospitalist wanted her transferred to where they had a education trainer. Past medical history: anxiety/depression, alcohol abuse, hypertension, bipolar disorder, alcoholic cirrhosis of the liver,hepatic encephalopathy, portal hypertension, urinary tract infection. Family history: Hypertension Social history: Patient reports that she has not had any alcohol since her admission here in September which was several weeks ago. Medications: Home Medications (10) Active busPIRone 10 mg oral tablet 10 mg = 1 tab(s), Oral, TID citalopram 40 mg oral tablet 40 mg = 1 tab(s), Oral, qDay cloNIDine 0.1 mg oral tablet 0.01 mg, PRN, Oral ferrous sulfate 325 mg (65 mg elemental iron) oral delayed release tablet 325 mg = 1 tab(s), Oral, qDay lactulose 10 g/15 mL oral syrup 30 gram(s) = 45 mL, Oral, q6h Lasix 20 mg oral tablet 20 mg = 1 tab(s), Oral, BID prazosin 1 mg oral capsule 1 mg, Oral, 1hHS propranolol 10 mg oral tablet 10 mg = 1 tab(s), Oral, TID SEROquel 50 mg oral tablet 50 mg = 1 tab(s), Oral, qHS Xifaxan 550 mg oral tablet 550 mg = 1 tab(s), Oral, BID Allergies: NKA Review of systems: See HPI for pertinent positives and negatives. All other review of systems have been reviewed and they are negative. Temperature 98.8 respiratory 12 heart rate 101 blood pressure 144/88, 98% room air. Physical examination: HEENT: No Pallor, No Icterus Cardiac: RRR, No murmur Lungs: CTA, good air entry Abdomen: Soft Non tender Musculoskeletal: No joint pains or swelling Extremities: No edema, good pulses Neurological: Alert but very confused Skin: No rash, no nodules Labs: As mentioned in the HPI Assessment and plan: Patient presents as a transfer from [facility] emergency room due to having encephalopathy. Hepatic encephalopathy. Ammonia level was 110. Very likely that she is not compliant with her home medications. I will increase her home lactulose from 30 g every 6 hours to 40 g. We will check repeat labs in the morning. No concern for spontaneous bacterial peritonitis at this point. Would have low threshold for starting antibiotics if she were to become febrile. Chronic pancytopenia secondary to alcoholic cirrhosis of the liver. Stable. Was evaluated by hematology during recent admission. Influenza A bronchitis. She is not hypoxic and therefore we will hold off on starting any treatment.Will monitor closely. Anxiety/depression/bipolar disorder. We will continue her home medications. I think her current confusion is all secondary to hepatic encephalopathy. I do not think that there is any psychiatric component at this point. History of alcohol abuse. Patient reports that she has not had any alcohol for several weeks. Hypertension. Continue home medications. Well-controlled Alcoholic cirrhosis of the liver with portal hypertension. I did increase her lactulose as mentionedabove. Continue Lasix, rifaximin. Patient can follow-up outpatient with her primary education trainer in [place]. Prophylaxis SCDs CODE STATUS full code Digitally Signed by MUSTAPHA WOODWARD MD on 10/31/2022 02:11 [facility]12-15-2022 Note. MICRO - Microbiology PROCEDURE: Blood Culture (bacterial) [O1 *1] SOURCE: Blood BODY SITE: COLLECTED DATE/TIME: 10/02/2022 23:50 EST RECEIVED DATE/TIME: 10/03/2022 18:46 EST START DATE/TIME: 10/03/2022 18:48 EST FREE TEXT SOURCE: FINAL REPORTS Final Report [] Verified Date/Time/Personnel: 10/08/2022 18:59 EST Blood Culture: No Growth at 5 days. PRELIMINARY REPORTS Preliminary Report [] Verified Date/Time/Personnel: 10/03/2022 19:59 EST Culture has been received in lab and is no growth to date. Routine cultures are held for 5 days. Order Comments O1: Blood Culture (bacterial) fax [phone] Performing Locations *1: This test was performed at: [facility], [address] [place] [address], [facility] , [facility] ([place])10-08-2022 Note. MICRO - Microbiology PROCEDURE: Blood Culture (bacterial) [O1 *1] SOURCE: Blood BODY SITE: COLLECTED DATE/TIME: 10/03/2022 00:01 EST RECEIVED DATE/TIME: 10/03/2022 18:48 EST START DATE/TIME: 10/03/2022 18:48 EST FREE TEXT SOURCE: FINAL REPORTS Final Report [] Verified Date/Time/Personnel: 10/08/2022 18:59 EST Blood Culture: No Growth at 5 days. PRELIMINARY REPORTS Preliminary Report [] Verified Date/Time/Personnel: 10/03/2022 19:59 EST Culture has been received in lab and is no growth to date. Routine cultures are held for 5 days. Order Comments O1: Blood Culture (bacterial) fax [phone] Performing Locations *1: This test was performed at: [facility], [address] [place] [address], [place], [address]- , [facility] [place]10-07-2022 Note Discharge Instructions Thank you for allowing [place] to assist you with your healthcare needs. The following is important discharge information regarding your hospital visit. Your Care Team TIM ROBLEDO CNP Your Diagnosis Cirrhosis Hepatic encephalopathy What to do next Instructions From Your Doctor Thank you for choosing [facility] - it has been a pleasure taking part in your medical care. Please follow up with your Primary Care Physician (PCP) as soon as possible after your discharge and any specialists as noted within 1-2 weeks for further evaluation. If your symptoms should persist or worsen, please return immediately to the nearest Emergency Room for further care. If you have any questions about the care you received please call us anytime at . Please follow up with your primary care provider, Gastroenterology/Hepatology (liver specialist) andHematology/Oncology (blood specialist). Blood work ordered in 7-10 days. Please take your medications as listed. Follow Up Appointments Follow Up with TIM ROBLEDO CNP When Within 1-2 days Why: Please call the office to schedule follow up appointment. Where: [address] [facility] [address] [place] [address]- [phone] Follow Up with PREMA STAHL MD When In 1 week Why: Please call the office to schedule follow up appointment. Where: [address] [place] [address] [place] [address]- [phone] Follow Up with RAYA ALMAZAN MD When Within 1-2 days Why: Please call the office to schedule appointment Where: [address] [facility] [address] [place] [address]- [phone] Follow Up with MAINOR COLE MD When Within 1-2 days Why: Choice #1 Where: [facility] [address] [place] [address]- Follow Up with FRANCESCA VILLEGAS MD When Within 1-2 days Why: Choice #2 Where: [address] [facility] [address] [place] [address]- Follow Up with JIMBO DURANT DO When Within 1-2 days Why: Choice #3 Where: [facility] [address] [facility] [place] [address]- The Following Activity and Diet Have Been Ordered for You Discharge Activity - Ordered -- Activity As Tolerated, 10/07/22 12:00:00 EST Discharge Diet - Ordered -- No changes were made to your diet during your hospital stay. Please resume your pre hospitalization diet on discharge., 10/07/22 12:00:00 EST The Following Equipment Has Been Ordered for You No qualifying data available. The Following Treatments Have Been Ordered for You Discharge Labs Discharge Outpatient Labwork - Ordered -- cbc, cmp, ammonia, pancytopenia, hypernatremia, cirrhosis, follow-up within: 10 days, Results Notify to: TIM ROBLEDO HAND HIDE STRETCHER, 10/07/22 12:00:00 EST Discharge Radiology No qualifying data available. Other Therapies No qualifying data available. Post Acute Orders No qualifying data available. Someone Will Contact You Regarding These Home Health Referrals No home referrals have been ordered for you. No one will call you. Allergies NKA Medications Please ask your primary doctor or pharmacist before taking any other medication not listed, including over the counter drugs, herbal medications, vitamins and or supplements as they may interact with your home medications. What How Much When Instructions Last Dose New ferrous sulfate (ferrous sulfate 325 mg (65 mg elemental iron) oral delayed release tablet) 1 tab(s) by mouth Once a day Pickup at [facility] #[id number] New furosemide (Lasix 20 mg oral tablet) 1 tab(s) by mouth Two (2) times a day Pickup at [facility] #[id number] New lactulose (lactulose 10 g/ 15 mL oral syrup) 45 Milliliter by mouth Every 6 hours Duration: 30 Days Pickup at [facility] #[id number] New propranolol (propranolol 10 mg oral tablet) 1 tab(s) by mouth Three (3) times a day Pickup at [facility] #[id number] New rifaximin (Xifaxan 550 mg oral tablet) 1 tab(s) by mouth Two (2) times a day Pickup at [facility] #[id number] Unchanged busPIRone (busPIRone 10 mg oral tablet) 1 tab(s) by mouth Three (3) times a day Unchanged citalopram (citalopram 40 mg oral tablet) 1 tab(s) by mouth Once a day Unchanged cloNIDine (cloNIDine 0.1 mg oral tablet) 0.01 Milligram by mouth As needed for Anxiety Unchanged prazosin (prazosin 1 mg oral capsule) 1 Milligram by mouth 1 hour before bedtime Unchanged QUEtiapine (SEROquel 50 mg oral tablet) 1 tab(s) by mouth Daily at bedtime Pharmacy Information [facility] #[id number]: [address] [place], [place] [phone] Please take this list to your next doctor s visit. Bring all medications you take, including over the counter medications, herbals and other supplements with you to your doctor s visit. Patients and families are reminded to discard old lists and to update any records with all medication providers or retail pharmacies. Education Materials Cirrhosis Cirrhosis is long-term (chronic) liver injury. The liver is the body's largest internal organ, and it performs many functions. It converts food into energy, removes toxic material from the blood, makesimportant proteins, and absorbs necessary vitamins from food. In cirrhosis, healthy liver cells are replaced by scar tissue. This prevents blood from flowing through the liver, making it difficult for the liver to function. Scarring of the liver cannot be reversed, but treatment can prevent it from getting worse. What are the causes? Common causes of this condition are hepatitis C and long-term alcohol abuse. Other causes include: Nonalcoholic fatty liver disease. This happens when fat is deposited in the liver by causes other than alcohol. Hepatitis B infection. Autoimmune hepatitis. In this condition, the body's defense system (immune system) mistakenly attacks the liver cells, causing irritation and swelling (inflammation). Diseases that cause blockage of ducts inside the liver. Inherited liver diseases, such as hemochromatosis. This is one of the most common inherited liver diseases. In this disease, deposits of iron collect in the liver and other organs. Reactions to certain long-term medicines, such as amiodarone, a heart medicine. Parasitic infections. These include schistosomiasis, which is caused by a flatworm. Long-term contact to certain toxins. These toxins include certain organic solvents, such as toluene and chloroform. What increases the risk? You are more likely to develop this condition if: You have certain types of viral hepatitis. You abuse alcohol, especially if you are female. You are overweight. You share needles. You have unprotected sex with someone who has viral hepatitis. What are the signs or symptoms? You may not have any signs and symptoms at first. Symptoms may not develop until the damage to your liver starts to get worse. Early symptoms may include: Weakness and tiredness (fatigue). Changes in sleep patterns or having trouble sleeping. Itchiness. Tenderness in the right-upper part of your abdomen. Weight loss and muscle loss. Nausea. Loss of appetite. Appearance of tiny blood vessels under the skin. Later symptoms may include: Fatigue or weakness that is getting worse. Yellow skin and eyes (jaundice). Buildup of fluid in the abdomen (ascites). You may notice that your clothes are tight around your waist. Weight gain. Swelling of the feet and ankles (edema). Trouble breathing. Easy bruising and bleeding. Vomiting blood. Black or bloody stool. Mental confusion. How is this diagnosed? Your health care provider may suspect cirrhosis based on your symptoms and medical history, especially if you have other medical conditions or a history of alcohol abuse. Your health care provider willdo a physical exam to feel your liver and to check for signs of cirrhosis. He or she may perform other tests, including: Blood tests to check: ? For hepatitis B or C. ? Kidney function. ? Liver function. Imaging tests such as: ? MRI or CT scan to look for changes seen in advanced cirrhosis. ? Ultrasound to see if normal liver tissue is being replaced by scar tissue. A procedure in which a long needle is used to take a sample of liver tissue to be checked in a lab (biopsy). Liver biopsy can confirm the diagnosis of cirrhosis. How is this treated? Treatment for this condition depends on how damaged your liver is and what caused the damage. It mayinclude treating the symptoms of cirrhosis, or treating the underlying causes in order to slow the damage. Treatment may include: Making lifestyle changes, such as: ? Eating a healthy diet. You may need to work with your health care provider or a diet and epic ambulatory specialists (dietitian) to develop an eating plan. ? Restricting salt intake. ? Maintaining a healthy weight. ? Not abusing drugs or alcohol. Taking medicines to: ? Treat liver infections or other infections. ? Control itching. ? Reduce fluid buildup. ? Reduce certain blood toxins. ? Reduce risk of bleeding from enlarged blood vessels in the stomach or esophagus (varices). Liver transplant. In this procedure, a liver from a donor is used to replace your diseased liver. This is done if cirrhosis has caused liver failure. Other treatments and procedures may be done depending on the problems that you get from cirrhosis. Common problems include liver-related kidney failure (hepatorenal syndrome). Follow these instructions at home: Take medicines only as told by your health care provider. Do not use medicines that are toxic to your liver. Ask your health care provider before taking any new medicines, including ggpr-wpo-tgvbnbn medicines. Rest as needed. Eat a well-balanced diet. Ask your health care provider or dietitian for more information. Limit your salt or water intake, if your health care provider asks you to do this. Do not drink alcohol. This is especially important if you are taking acetaminophen. Keep all follow-up visits as told by your health care provider. This is important. Contact a health care provider if you: Have fatigue or weakness that is getting worse. Develop swelling of the hands, feet, legs, or face. Have a fever. Develop loss of appetite. Have nausea or vomiting. Develop jaundice. Develop easy bruising or bleeding. Get help right away if you: Vomit bright red blood or a material that looks like coffee grounds. Have blood in your stools. Notice that your stools appear black and tarry. Become confused. Have chest pain or trouble breathing. Summary Cirrhosis is chronic liver injury. Liver damage cannot be reversed. Common causes are hepatitis C and long-term alcohol abuse. Tests used to diagnose cirrhosis include blood tests, imaging tests, and liver biopsy. Treatment for this condition involves treating the underlying cause. Avoid alcohol, drugs, salt, andmedicines that may damage your liver. Contact your health care provider if you develop ascites, edema, jaundice, fever, nausea or vomiting, easy bruising or bleeding, or worsening fatigue. This information is not intended to replace advice given to you by your health care provider. Make sure you discuss any questions you have with your health care provider. Document Released: 10/11/2006 Document Revised: 01/31/2020 Document Reviewed: 08/31/2018 Elsevier Patient Education 2020 [employer] Additional Information VACCINATE! IT SAVES LIVES! Members of the community who have not yet received the COVID-19 vaccine and would like to receive itcan visit one of [facility] vaccine clinics. There are many vaccine clinic locations within the [facility].For locations and available times, please visit [email or web address] It is important to note that some COVID mobile vaccine clinics are held outdoors and may be canceled in rainy or stormy conditions. To learn more about pediatric vaccinations (ages 5-11), we invite you to visit the [facility] webpage. [email or web address]/pages/6290-Corpj-[email or web address]-Tntxm-Fer stions.html To learn more about the COVID-19 vaccine, we invite you to visit the [facility] website for a list of frequently asked questions. [email or web address] [facility] Patient Portal Access Instructions: Stay connected with your healthcare team and access your personal medical information anytime with the [facility] Patient Portal.If you would like a full copy of your medical records, please contact the [facility] Medical Records Department, Wednesday through Wednesday between 8a.m. and 4:30p.m.Please follow the directions below to access the portal: 1.Access the email account you provided upon registration to the hospital.2.Look for an invitation email from [facility].3.Open the email and access the invitation link: Accept Invitation to [facility]4.Fill in the required gonzáles to create your account. Sign into www.[facility] with your username and password that you created in the above steps to stay up to date. You can then view a summary of results, a summary of your visits, and the ability to download your summaries to your computer or send the information securely to a physician. Remember thatyour healthcare information is confidential, so carefully consider who you will allow to register onthe [facility] Patient Portal for access to your information. You can also access the [facility] Patient Portal on the [employer] [place]. Simply click on Health Records under Health Data and then click on the [facility] logo. HOW TO SAFELY DISPOSE OF PRESCRIPTION MEDICATIONS Please use one of the following methods to safely dispose of your unused medications. 1.Use a drug disposal kit: the drug disposal pouch allows you to safely discard your old and unused drugs. Ask your nurse to give you one when you are discharged.2.Visit a local take-back location: Many local pharmacies and police departments have programs that collect old and unwanted prescription drugs. Call your local pharmacy or go to http://Orthera.[employer]/1Z1Fp4s to find one close to you.3.Make use of household items: Use cat litter or old coffee grounds to dispose medications if other options are not available. Mix your drugs with these household products, seal them in an airtight container and throwit into the garbage. Call [facility]: [phone] to be sure your drugs can be disposed of in this way. Some medicines may require a different approach.4.Never flush your medications down the toilet. IF YOU HAVE BEEN PRESCRIBED AN OPIOID FOR PAIN If you have been prescribed an opioid (such as hydrocodone, oxycodone or morphine), it is critical to understand the possible side effects and risks of opioid pain medications. Even when taken as directed, opioids can have several side effects including: Tolerance, meaning you might need to take more of a medication for the same pain relief. Nausea, vomiting and/or constipation. Sleepiness, dizziness, dry mouth, confusion, depression or itching. Physical dependence, meaning you have withdrawal symptoms when a medication is stopped, can develop withina few days. KNOW YOUR RESPONSIBILITIES It is important to know exactly how much and how often to take the opioid pain medications you are prescribed. Never take opioids in higher amounts or more often than prescribed. Do not combine opioids with alcohol or other drugs that cause drowsiness, such as benzodiazepines, also known as benzos, including diazepam and alprazolam, muscle relaxants or sleep aids. Never sell or share prescription opioids. This is illegal. Store opioids in a secure place and out of reach of others (including children, family,friends and visitors). The last page of this document has been signed and retained as a CHART COPY. Signatures Patient Education Materials Cirrhosis Medication Leaflets My discharge plan and instructions have been reviewed and explained to me and I,EVER MCKEON understand my current condition and have read and understand these discharge instructions. I have received a written copy of the plan/instructions. If I have questions, I am aware that I should contact my doct or. 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) Acidosis, unspecified (E87.20 - ICD-10-CM) Portal hypertension (K76.6 - ICD-10-CM) Other pancytopenia (D61.818 - ICD-10-CM) Urinary tract infection, site not specified (N39.0 - ICD-10-CM) Iron deficiency anemia, unspecified (D50.9 - ICD-10-CM) Thrombocytopenia, unspecified (D69.6 - ICD-10-CM) Alcoholic cirrhosis of liver without ascites (K70.30 - ICD-10-CM) Essential (primary) hypertension (I10 - ICD-10-CM) Splenomegaly, not elsewhere classified (R16.1 - ICD-10-CM) Alcohol abuse, 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) Bipolar disorder, unspecified (F31.9 - ICD-10-CM) Hepatic encephalopathy Thrombocytopenia splenomegaly Cirrhosis History of alcohol abuse Urinary tract infection Low urine output Edema Iron deficiency anemia Lactic acidosis, resolved Pancytopenia Hypertension Anxiety/depression Bipolar psychosis Additional Orders: Other status: Ammonia Level,10/07/22 5:01:00 EST, Next AM Draw (one day only), Blood, Once, Stop date 10/07/22 4:00:00 EST(Complete) Ordered: Discharge,10/07/22 12:00:00 EST, Discharged to: Home Ordered: Discharge Activity,Activity As Tolerated, 10/07/22 12:00:00 EST Ordered: Discharge Diet,No changes were made to your diet during your hospital stay. Please resume your pre hospitalization diet on discharge., 10/07/22 12:00:00 EST Ordered: Discharge Outpatient Labwork,cbc, cmp, ammonia, pancytopenia, hypernatremia, cirrhosis, follow-up within: 10 days, Results Notify to: TIM SPAIN HAND HIDE STRETCHER, 10/07/22 12:00:00 EST Ordered: Lasix 20 mg oral tablet,Dose : 20 mg = 1 tab(s), Oral, BID, # 60 tab(s), 0 Refill(s), Pharmacy: [facility] #[id number], 165, cm, 10/03/22 11:32:00 EST, Height Other status: Magnesium Level,10/07/22 5:01:00 EST, Next AM Draw (one day only), Blood, Once, Stop date 10/07/22 4:00:00 EST(Complete) Ordered: Xifaxan 550 mg oral tablet,Dose : 550 mg = 1 tab(s), Oral, BID, # 60 tab(s), 0 Refill(s), Pharmacy: [facility] #[id number], 165, cm, 10/03/22 11:32:00 EST, Height Ordered: ferrous sulfate 325 mg (65 mg elemental iron) oral delayed release tablet,Dose : 325 mg = 1 tab(s), Oral, qDay, # 30 tab(s), 0 Refill(s), Pharmacy: [facility] #[id number], 165, cm, 10/03/22 11:32:00EST, Height Ordered: lactulose 10 g/15 mL oral syrup,Dose : 30 gram(s) = 45 mL, Oral, q6h, X 30 day(s), # 5,400mL, 0 Refill(s), 11/06/22 11:45:00 EST, Pharmacy: [facility] #[id number], 165, cm, 10/03/22 11:32:00 EST, Height Ordered: propranolol 10 mg oral tablet,Dose : 10 mg = 1 tab(s), Oral, TID, # 90 tab(s), 0 Refill(s), Pharmacy: [facility] #[id number], 165, cm, 10/03/22 11:32:00 EST, Height Hospital Course 52-year-old female PMH HTN, depression, anxiety, bipolar psychosis, alcohol abuse in the past. Patient presented to outside hospital with altered mental status transferred to [place] 10/03 for GI/hepatology evaluation. CT brain negative on presentation, CT abdomen pelvis nodular surface contour of theliver consistent with hepatocellular disease cholecystectomy clips in right upper quadrant enlarged spleen 17.8 cm in length and collateral vessels noted in the left upper quadrant, anterior abdomen consistent with varices ammonia elevated at 115, patient initiated on lactulose. GI work-up underway for liver cirrhosis. Hematology on consult secondary to pancytopenia, iron deficiency anemia and splenomegaly. Patient also with urinary tract infection on broad-spectrum antibiotics cultures requested. Appreciate GI/hepatology input, pathology work-up including hepatitis panel, Alpha-1 antitrypsin unrevealing. Etiology of patient's liver cirrhosis likely related to prior alcohol abuse. Final work-upand cultures pending at the time of this dictation and should be followed. Patient states has been dry for the past several months, encourage continued abstinence. Lactulose adjusted during this hospital stay, importance of medication use as written discussed with patient at bedside at great length. GI recommending outpatient EGD/colonoscopy with Dr. Almazan in [place]. Patient with pancytopenia including thrombocytopenia and splenomegaly on imaging hematology on consultation appreciate their input. [place] is on broad-spectrum antibiotics for urinary tract infection cultures negative to date, patient afebrile the last 48 hours. Patient is completed the course of IV antibiotics however final culture results should be followed. Initially with reduced urine output which is improved during the hospita lization. IV iron supplementation per hematology recommending oral replacement at discharge. Duplex ultrasound lower extremities negative for DVT. Diuresis with Lasix to continue at discharge. Concern for essential tremors patient continues on newly initiated propranolol. Patient seen examined at bedside today. Patient states overall feeling back to her usual self and wants to go home today. Patient denies chest pain, shortness of breath, abdominal pain, nausea/vomiting. Patient tolerating oral intake and ambulating in the hospital room without difficulty. Discussed with patient regarding recommended follow-up with providers and medication list at discharge. Discussed warning signs that should prompt patient to return to the emergency department or seek immediate medical attention, including but not limited to worsening of symptoms. Patient states understanding and appreciation for care. Offered to update family, patient declines. Allergies NKA Consults Consult to Physician - Ordered -- 10/03/22 11:35:00 HANNAH WEST SANJIV MD, Routine, hepatic encephalopathy Consult to Physician - Ordered -- 10/05/22 18:50:00 KATHLEEN WEST SUNITHA MD, Routine, low platelets with splenomegaly Imaging Results and Diagnostics US Abdomen/Elastography/Doppler Abdomen Result Date: October 04, 2022 Verified By: OWEN AGUILAR MD CLINICAL STATEMENT: IMPRESSION: Limited examination. Elastography indicates a mild moderate risk ofclinically significant liver fibrosis. Cirrhotic morphology of the liver. Splenomegaly Shear Wave Liver Elastography-liver fibrosis staging Median Velocity:Recommendation: 1.35-1.66 m/s (5.48 kPa - 8.29 kPa) Normalto mild risk of clinically significant liver fibrosis : METAVIR Stage F1 1.66-1.77 m/s (8.29 kPa - 9.40 kPa)Pyuf-ak-etysdyyf risk of clinically significant liver fibrosis. (METAVIRStage F2) 1.77-1.99 m/s (9.40 kPa - 11.9 kPa)Moderate to severe risk of clinically significant liver fibrosis (METAVIRStage F3) > 1.99 m/s (> 11.9 kPa)Advanced Fibrosis and/or Cirrhosis: (METAVIR Stage F4) XR Chest 1 View Result Date: October 03, 2022 Verified By: MUSTAPHA MORALES MD CLINICAL STATEMENT: IMPRESSION: No evidence of an acute process. Mild cardiomegaly with likely left atrial enlargement. Physical Exam Vitals and Measurements T: 36.9 C (Oral) TMIN: 36.6 C (Oral) TMAX: 37 C (Oral) HR: 78 RR: 18 BP: 100/54 SpO2: 98% Weight Dosing Weight: 120.6 kg (10/03/22) General: NAD HEENT: NC/AT Cardiac: S1, S2, regular Lungs: clear to auscultation bilateral Abdomen: Soft, Non tender, obese, + bowel sounds Musculoskeletal: No joint pains or swelling Extremities: lower extremity edema present, 1+ distal pulses Neurological: AAOx4 Pending Labs and Studies follow up labs as outlined above Final cultures pending at the time of this dictation. Code Status Code Status - Ordered -- 10/03/22 11:35:00 EST, Full Code, Constant Order Admission Date 10/03/2022 Discharge Date 10/07/2022 Patient Instructions Thank you for choosing [facility] - it has been a pleasure taking part in your medical care. Please follow up with your Primary Care Physician (PCP) as soon as possible after your discharge and any specialists as noted within 1-2 weeks for further evaluation. If your symptoms should persist or worsen, please return immediately to the nearest Emergency Room for further care. If you have any questions about the care you received please call us anytime at . Please follow up with your primary care provider, Gastroenterology/Hepatology (liver specialist) andHematology/Oncology (blood specialist). Blood work ordered in 7-10 days. Please take your medications as listed. Medications New Prescription ferrous sulfate (ferrous sulfate 325 mg (65 mg elemental iron) oral delayed release tablet)1 tab(s) by mouth once a day. Refills: 0. furosemide (Lasix 20 mg oral tablet)1 tab(s) by mouth two (2) times a day. Refills: 0. lactulose (lactulose 10 g/15 mL oral syrup)45 Milliliter by mouth every 6 hours for 30 Days. Refills: 0. propranolol (propranolol 10 mg oral tablet)1 tab(s) by mouth three (3) times a day. Refills: 0. rifaximin (Xifaxan 550 mg oral tablet)1 tab(s) by mouth two (2) times a day. Refills: 0. Unchanged busPIRone (busPIRone 10 mg oral tablet)1 tab(s) by mouth three (3) times a day. citalopram (citalopram 40 mg oral tablet)1 tab(s) by mouth once a day. cloNIDine (cloNIDine 0.1 mg oral tablet)0.01 Milligram by mouth as needed Anxiety. prazosin (prazosin 1 mg oral capsule)1 Milligram by mouth 1 hour before bedtime. QUEtiapine (SEROquel 50 mg oral tablet)1 tab(s) by mouth daily at bedtime. Follow Up Follow Up with TIM ROBLEDO CNP When Within 1-2 days Why: Please call the office to schedule follow up appointment. Where: [address] [place] [phone] Follow Up with PREMA STAHL MD When In 1 week Why: Please call the office to schedule follow up appointment. Where: [address] [facility] [place] [address]- [phone] Follow Up with RAYA ALMAZAN MD When Within 1-2 days Why: Please call the office to schedule appointment Where: [address] [facility] [address] [place], [place] [phone] Follow Up with MAINOR COLE MD When Within 1-2 days Why: Choice #1 Where: [facility] [address] [place] [address]- Follow Up with FRANCESCA VILLEGAS MD When Within 1-2 days Why: Choice #2 Where: [address] [facility] [address] [place] [address]- Follow Up with JIMBO DURANT DO When Within 1-2 days Why: Choice #3 Where: [facility] [address] [facility] [place] [address]- Follow Up Appointments No qualifying data available. Follow Up Labs/Studies Discharge Labs Discharge Outpatient Labwork - Ordered -- cbc, cmp, ammonia, pancytopenia, hypernatremia, cirrhosis, follow-up within: 10 days, Results Notify to: TIM ROBLEDO CNP, 10/07/22 12:00:00 EST Discharge Studies No Follow-up Studies Discharge Diet Discharge Diet - Ordered -- No changes were made to your diet during your hospital stay. Please resume your pre hospitalization diet on discharge., 10/07/22 12:00:00 EST Discharge Activity Discharge Activity - Ordered -- Activity As Tolerated, 10/07/22 12:00:00 EST Condition on Discharge Fair Discharge Disposition Home Information Provided To Patient and medical staff Time Spent 38 minutes Digitally Signed by AMEE RICCI HARMAN Maria on 10/07/2022 12:11 [facility]12-14-2022 Gastroenterology Progress note Date of Service 10/07/2022 Subjective Patient is ambulatory in the room. States she woke up today. She has had several bowel movements yesterday and feels much more alert today. She denies any complaints of abdominal pain. Denies any melena, hematemesis or hematochezia. Denies any nausea or vomiting. Tolerating diet Objective Vitals and Measurements T: 37 C (Oral) TMIN: 36.6 C (Oral) TMAX: 37.0 C (Oral) HR: 71 RR: 18 BP: 133/68 SpO2: 94% Intake and Output 7AM Yesterday to 7AM Today Intake and Output (Last 24 hours) Intake Output Stool Count 5.00 Total Summary Total Intake 0.00 Total Output 0.00 Fluid Balance 0.00 Physical Exam General : patient resting in bed. Appears comfortable. Heart: regular rate and rhythm Lung: clear bilaterally to ascultation Abdomen: soft, non tender, bowel sounds present x 4. no distended. Morbidly obese Neuro: alert and oriented x3. speech is clear and regular. No asterixis noted Skin: warm and dry. no rashes noted. Weight Dosing Weight: 120.6 kg (10/03/22) Medications Medications (16) Active Scheduled: (11) busPIRone 10 mg Tablet 10 mg 1 tab(s), Oral, TID cefTRIAXone IVP syringe 1 gram(s) 10 mL, IV Push (INT), qDay citalopram 40 mg tablet 40 mg 1 tab(s), Oral, qDay enoxaparin 40 mg/ 0.4mL syringe 40 mg 0.4 mL, Subcutaneous, qDay ferrous sulfate 325 mg Tablet 325 mg 1 tab(s), Oral, qDayM furosemide 20 mg tablet 20 mg 1 tab(s), Oral, BID lactulose 20 g/30 mL UD cup 30 gram(s) 45 mL, Oral, q6h prazosin 1 mg Capsule 1 mg 1 cap(s), Oral, 1hHS propranolol 10 mg tablet 10 mg 1 tab(s), Oral, TID QUEtiapine 50 mg tablet 50 mg 1 tab(s), Oral, qHS rifaximin 550 mg tablet 550 mg 1 tab(s), Oral, BID Continuous: (0) PRN: (5) albuterol - ipratropium 2.5 mg-0.5 mg/3 mL Inhal Sheri UD 3 mL, Inhalation, q4hRT clonidine 0.1 mg tablet 0.1 mg 1 tab(s), Oral, BID melatonin 3 mg tablet 3 mg 1 tab(s), Oral, qHS oxycodone 5 mg tablet (immediate release) 5 mg 1 tab(s), Oral, q4h trimethobenzamide 200 mg/2 mL Solution 200 mg 2 mL, Intramuscular, q6h Lab Results 10/07 06:06 WBC: 4.0 L Hgb: 9.3 L Hct: 29.5 L Platelet: 82 L Neutrophil %: 50.3 Protime: 15.7 H PT International Ratio: 1.3 Glucose Level: 81 Sodium Level: 145 Potassium Level: 3.6 BUN: 10.0 Creatinine Lvl (s): 0.61 10/06 05:38 WBC: 3.0 L Hgb: 8.7 L Hct: 28.1 L Platelet: 68 L Neutrophil %: 49.6 L Glucose Level: 126 H Sodium Level: 145 Potassium Level: 3.9 BUN: 11.0 Creatinine Lvl (s): 0.63 Assessment/Plan 1. Cirrhosis Likely secondary to alcohol. Work-up is otherwise proven to be negative. 2. Hepatic encephalopathy Much improved. No asterixis noted on exam. Patient will need to continue with Xifaxan and lactulose at discharge. Patient was educated on this. The importance was stressed about having 3 bowel movements a day. To prevent repeat hospitalizations for hepatic encephalopathy. Patient did verbalize understa nding. Patient is planning to follow-up with GI Dr. Barbosa and will start for management of the cirrhosis and upper endoscopy evaluation. Nothing really further to add from our standpoint. We will sign off. Please call if we are needed further however further management to be completed by her GI and will start. Digitally Signed by JENNIFER SMITH on 10/07/2022 09:05 [facility]12-13-2022 Hematology Consult note Date of Service 10/06/2022 Reason for Consultation pancytopenia This is a split/shared visit between Dr. Stahl and myself History of Present Illness Patient is a 51-year-old female with past medical history of HTN, depression, anxiety, bipolar psychosis, alcohol abuse. Patient presented to [facility] with AMS. She was transferred to [facility] on 10/03 for GI evaluation. Per family patient has not been taking her medication for months and has confusion. CT head was negative. CT abdomen/pelvis nodular surface contour of the liver consistentwith hepatocellular disease cholecystectomy clips in the right upper quadrant enlarged spleen 17.8 cm in length also collateral vessels noted in the left upper quadrant and anterior abdomen consistent with varices. Ammonia level was noted to be 115, patient was started on lactulose. GI following for ci rrhosis work-up. Today patient is resting in bed. She reports she came in due to AMS. She was a alert and oriented x3 but does complain of having some intermittent confusion. Patient newly diagnosed with cirrhosis this admission and was also noted to have splenomegaly. She does report newly diagnosed anemia and was started on iron a few months ago. She does report noncompliance. She denies any frequent labs drawn toreview. She does report history of alcohol abuse and substance abuse, patient reports she quit 10 months ago. Patient reports she was taking methamphetamines. She denies cigarette use but reports she does vape. She did have a colonoscopy several years ago and a polyp was noted. She denies any dark stools or active bleeding. Stool occult was negative. She denies previous history of blood disorders or family history of blood disorders. She was noted to have iron deficiency this admission and was started on IV iron. Will start pt on oral iron. Lab Results Test Name Test Result Date/TimeWBC 3.0 10^3/mcL (Low) 10/06/2022 05:38 EST Hgb 8.7 G/dL (Low) 10/06/2022 05:38 EST Platelet 68 10^3/mcL (Low) 10/06/2022 05:38 EST Review of Systems 14 system review is negative except as charted in the HPI Physical Exam Vitals and Measurements T: 36.8 C (Oral) TMIN: 36.4 C (Oral) TMAX: 36.8 C (Oral) HR: 67 RR: 18 BP: 128/63 SpO2: 98% General Appearance: no acute distress Eyes: PERRLA Nose: External nose normal Ears: External ears normal Throat: Trachea midline Neck: no mass Lymph nodes: Not palpable Cardiac: RRR S1 and S2 no murmur Lungs: clear bilaterally Abdomen: soft non-tender BSx4 Neurological: A&Ox3 follows commands Skin: warm dry and intact Musculoskeletal: strength intact Psychiatric: appropriate mood and affect Weight Dosing Weight: 120.6 kg (10/03/22) Lab Results 10/06 05:38 WBC: 3.0 L Hgb: 8.7 L Hct: 28.1 L Platelet: 68 L Neutrophil %: 49.6 L Glucose Level: 126 H Sodium Level: 145 Potassium Level: 3.9 BUN: 11.0 Creatinine Lvl (s): 0.63 10/05 07:04 WBC: 3.2 L Hgb: 9.0 L Hct: 28.6 L Platelet: 74 L Neutrophil %: 49.1 L Protime: 14.5 PT International Ratio: 1.2 Glucose Level: 113 H Sodium Level: 145 Potassium Level: 4.0 BUN: 18.0 Creatinine Lvl (s): 0.62 Imaging Results and Diagnostics (10/04/2022 07:01 EST US Abdomen/Elastography/Doppler Abdomen) IMPRESSION: Limited examination. Elastography indicates a mild moderate risk of clinically significant liver fibrosis. Cirrhotic morphology of the liver. Splenomegaly [1] Assessment/Plan 1. Cirrhosis 2. Hepatic encephalopathy Increased ammonia levels, on lactulose, MOM and rifaximin, newly diagnosed cirrhosis, elastography showing mild to moderate risk of fibrosis and splenomegaly, GI following for work-up, likely alcohol use, GI recommend EGD and colonoscopy as an outpatient UTI, urine cultures pending, patient on Rocephin Pancytopenia, WBC 3, hemoglobin 8.7, PLT 68, likely due to liver disease and iron deficiency, completed 3 days of IV iron, will start pt on oral iron Please see Dr. Stahl's addendum for further recommendations Problem List/Past Medical History Ongoing Cirrhosis Hepatic encephalopathy Historical No qualifying data Procedure/Surgical History No qualifying data available. Medications busPIRone, 10 mg= 1 tab(s), Oral, TID busPIRone 10 mg oral tablet, 10 mg= 1 tab(s), Oral, TID citalopram, 40 mg= 1 tab(s), Oral, qDay citalopram 40 mg oral tablet, 40 mg= 1 tab(s), Oral, qDay cloNIDine, 0.1 mg= 1 tab(s), Oral, BID, PRN cloNIDine 0.1 mg oral tablet, 0.01 mg, Oral, PRN DuoNeb, 3 mL, Inhalation, q4hRT, PRN lactulose, 30 gram(s)= 45 mL, Oral, q6h Lasix, 20 mg= 1 tab(s), Oral, BID Lovenox, 40 mg= 0.4 mL, Subcutaneous, qDay melatonin, 3 mg= 1 tab(s), Oral, qHS, PRN oxyCODONE 5 mg oral tablet ( IMMEDIATE release ), 5 mg= 1 tab(s), Oral, q4h, PRN prazosin, 1 mg= 1 cap(s), Oral, 1hHS prazosin 1 mg oral capsule, 1 mg, Oral, 1hHS propranolol, 10 mg= 1 tab(s), Oral, TID Rocephin, 1 gram(s)= 10 mL, IV Push (INT), qDay SEROquel, 50 mg= 1 tab(s), Oral, qHS SEROquel 50 mg oral tablet, 50 mg= 1 tab(s), Oral, qHS Tigan, 200 mg= 2 mL, Intramuscular, q6h, PRN Xifaxan 550 mg oral tablet, 550 mg= 1 tab(s), Oral, BID Allergies NKA [1] US Abdomen/Elastography/Doppler Abdomen; OWEN AGUILAR MD 10/04/2022 07:01 EST Digitally Signed by SWAPNIL STRATTON on 10/06/2022 12:28 [facility]12-13-2022 Note Date of Service 10/06/2022 Chief Complaint Hepatic encephalopathy Subjective 51-year-old female PMH HTN, depression, anxiety, bipolar psychosis, alcohol abuse in the past. Patient presented to outside hospital with altered mental status transferred to [place] 10/03 for GI/hepotology evaluation. CT brain negative on presentation, CT abdomen pelvis nodular surface contour of theliver consistent with hepatocellular disease cholecystectomy clips in right upper quadrant enlarged spleen 17.8 cm in length and collateral vessels noted in the left upper quadrant, anterior abdomen consistent with varices ammonia elevated at 115, patient initiated on lactulose. GI work-up underway for liver cirrhosis. Hematology on consult secondary to pancytopenia, iron deficiency anemia and splenomegaly. Patient also with urinary tract infection on broad-spectrum antibiotics cultures requested. Patient seen examined at bedside today. Patient resting comfortably, appears to be in no acute distress. Patient is awake and alert answers questions appropriately and follows commands. Patient denies chest pain, shortness of breath, abdominal pain, nausea/vomiting. Patient states she is taking the lactulose and is moved her bowels several times over the past 24 hours, denies black or bloody stools. Objective Vitals and Measurements T: 36.8 C (Oral) TMIN: 36.4 C (Oral) TMAX: 37.0 C (Oral) HR: 65 RR: 18 BP: 136/84 SpO2: 98% Intake and Output 7AM Yesterday to 7AM Today Intake and Output (Last 24 hours) Intake Oral Intake 480.00 Output Stool Count 4.00 Total Summary Total Intake 480.00 Total Output 0.00 Fluid Balance 480.00 Physical Exam General: NAD HEENT: No Pallor, No Icterus Cardiac: S1, S2, regular Lungs: CTA, good air entry Abdomen: Soft, Non tender, obese, + bowel sounds Musculoskeletal: No joint pains or swelling Extremities: lower extremity edema present, 1+ distal pulses Neurological: AAOx4, moving extremities upon request Weight Dosing Weight: 120.6 kg (10/03/22) Medications Medications (16) Active Scheduled: (11) busPIRone 10 mg Tablet 10 mg 1 tab(s), Oral, TID cefTRIAXone IVP syringe 1 gram(s) 10 mL, IV Push (INT), qDay citalopram 40 mg tablet 40 mg 1 tab(s), Oral, qDay enoxaparin 40 mg/ 0.4mL syringe 40 mg 0.4 mL, Subcutaneous, qDay ferrous sulfate 325 mg Tablet 325 mg 1 tab(s), Oral, qDayM furosemide 20 mg tablet 20 mg 1 tab(s), Oral, BID lactulose 20 g/30 mL UD cup 30 gram(s) 45 mL, Oral, q6h prazosin 1 mg Capsule 1 mg 1 cap(s), Oral, 1hHS propranolol 10 mg tablet 10 mg 1 tab(s), Oral, TID QUEtiapine 50 mg tablet 50 mg 1 tab(s), Oral, qHS rifaximin 550 mg tablet 550 mg 1 tab(s), Oral, BID Continuous: (0) PRN: (5) albuterol - ipratropium 2.5 mg-0.5 mg/3 mL Inhal Sheri UD 3 mL, Inhalation, q4hRT clonidine 0.1 mg tablet 0.1 mg 1 tab(s), Oral, BID melatonin 3 mg tablet 3 mg 1 tab(s), Oral, qHS oxycodone 5 mg tablet (immediate release) 5 mg 1 tab(s), Oral, q4h trimethobenzamide 200 mg/2 mL Solution 200 mg 2 mL, Intramuscular, q6h Lab Results 10/06 05:38 WBC: 3.0 L Hgb: 8.7 L Hct: 28.1 L Platelet: 68 L Neutrophil %: 49.6 L Glucose Level: 126 H Sodium Level: 145 Potassium Level: 3.9 BUN: 11.0 Creatinine Lvl (s): 0.63 10/05 07:04 WBC: 3.2 L Hgb: 9.0 L Hct: 28.6 L Platelet: 74 L Neutrophil %: 49.1 L Protime: 14.5 PT International Ratio: 1.2 Glucose Level: 113 H Sodium Level: 145 Potassium Level: 4.0 BUN: 18.0 Creatinine Lvl (s): 0.62 Imaging Results and Diagnostics US Abdomen/Elastography/Doppler Abdomen Result Date: October 04, 2022 Verified By: OWEN AGUILAR MD CLINICAL STATEMENT: IMPRESSION: Limited examination. Elastography indicates a mild moderate risk ofclinically significant liver fibrosis. Cirrhotic morphology of the liver. Splenomegaly Shear Wave Liver Elastography-liver fibrosis staging Median Velocity:Recommendation: 1.35-1.66 m/s (5.48 kPa - 8.29 kPa) Normalto mild risk of clinically significant liver fibrosis : METAVIR Stage F1 1.66-1.77 m/s (8.29 kPa - 9.40 kPa)Uztg-in-lwjzvzoy risk of clinically significant liver fibrosis. (METAVIRStage F2) 1.77-1.99 m/s (9.40 kPa - 11.9 kPa)Moderate to severe risk of clinically significant liver fibrosis (METAVIRStage F3) > 1.99 m/s (> 11.9 kPa)Advanced Fibrosis and/or Cirrhosis: (METAVIR Stage F4) XR Chest 1 View Result Date: October 03, 2022 Verified By: MUSTAPHA MORALES MD CLINICAL STATEMENT: IMPRESSION: No evidence of an acute process. Mild cardiomegaly with likely left atrial enlargement. EKG No qualifying data available. Assessment/Plan Hepatic encephalopathy Thrombocytopenia splenomegaly Cirrhosis History of alcohol abuse Urinary tract infection Low urine output Edema Iron deficiency anemia Lactic acidosis, resolved Pancytopenia Hypertension Anxiety/depression Bipolar psychosis PLAN: Appreciate GI/hepatology input work-up for cirrhosis currently underway. History of alcohol abuse however does not drink in several months according to patient and family. Lactulose adjusted during this hospital stay. GI recommending outpatient EGD/colonoscopy with Dr. Mchugh. Patient with pancytopeniaincluding thrombocytopenia and splenomegaly on imaging hematology on consultation appreciate their input. Patient is on broad-spectrum antibiotics for urinary tract infection cultures being monitored. Initially with reduced urine output which is improved during the hospitalization continue to monitor in this regard. IV iron supplementation continues appreciate hematology input. Duplex ultrasound lower extremities pending currently secondary to edema. Diuresis with Lasix also requested. Concern for essential tremors patient continues on newly initiated propranolol we will continue monitor closely. AM labs requested DVT prophylaxis CODE STATUS is full code Prognosis guarded The above discussed the patient at bedside at great length who states understanding and agreement with current plan. Discussed with medical staff. Questions on answered. Time Spent 36 minutes, >50% of time spent in direct care and counseling. Digitally Signed by HARMAN LUBIN MD on 10/06/2022 05:15 [facility]12-13-2022 Hematology Consult note Date of Service 10/06/2022 Reason for Consultation pancytopenia This is a split/shared visit between Dr. Stahl and myself History of Present Illness Patient is a 51-year-old female with past medical history of HTN, depression, anxiety, bipolar psychosis, alcohol abuse. Patient presented to [facility] with AMS. She was transferred to [facility] on 10/03 for GI evaluation. Per family patient has not been taking her medication for months and has confusion. CT head was negative. CT abdomen/pelvis nodular surface contour of the liver consistentwith hepatocellular disease cholecystectomy clips in the right upper quadrant enlarged spleen 17.8 cm in length also collateral vessels noted in the left upper quadrant and anterior abdomen consistent with varices. Ammonia level was noted to be 115, patient was started on lactulose. GI following for ci rrhosis work-up. Today patient is resting in bed. She reports she came in due to AMS. She was a alert and oriented x3 but does complain of having some intermittent confusion. Patient newly diagnosed with cirrhosis this admission and was also noted to have splenomegaly. She does report newly diagnosed anemia and was started on iron a few months ago. She does report noncompliance. She denies any frequent labs drawn toreview. She does report history of alcohol abuse and substance abuse, patient reports she quit 10 months ago. Patient reports she was taking methamphetamines. She denies cigarette use but reports she does vape. She did have a colonoscopy several years ago and a polyp was noted. She denies any dark stools or active bleeding. Stool occult was negative. She denies previous history of blood disorders or family history of blood disorders. She was noted to have iron deficiency this admission and was started on IV iron. Will start pt on oral iron. Lab Results Test Name Test Result Date/TimeWBC 3.0 10^3/mcL (Low) 10/06/2022 05:38 EST Hgb 8.7 G/dL (Low) 10/06/2022 05:38 EST Platelet 68 10^3/mcL (Low) 10/06/2022 05:38 EST Review of Systems 14 system review is negative except as charted in the HPI Physical Exam Vitals and Measurements T: 36.8 C (Oral) TMIN: 36.4 C (Oral) TMAX: 36.8 C (Oral) HR: 67 RR: 18 BP: 128/63 SpO2: 98% General Appearance: no acute distress Eyes: PERRLA Nose: External nose normal Ears: External ears normal Throat: Trachea midline Neck: no mass Lymph nodes: Not palpable Cardiac: RRR S1 and S2 no murmur Lungs: clear bilaterally Abdomen: soft non-tender BSx4 Neurological: A&Ox3 follows commands Skin: warm dry and intact Musculoskeletal: strength intact Psychiatric: appropriate mood and affect Weight Dosing Weight: 120.6 kg (10/03/22) Lab Results 10/06 05:38 WBC: 3.0 L Hgb: 8.7 L Hct: 28.1 L Platelet: 68 L Neutrophil %: 49.6 L Glucose Level: 126 H Sodium Level: 145 Potassium Level: 3.9 BUN: 11.0 Creatinine Lvl (s): 0.63 10/05 07:04 WBC: 3.2 L Hgb: 9.0 L Hct: 28.6 L Platelet: 74 L Neutrophil %: 49.1 L Protime: 14.5 PT International Ratio: 1.2 Glucose Level: 113 H Sodium Level: 145 Potassium Level: 4.0 BUN: 18.0 Creatinine Lvl (s): 0.62 Imaging Results and Diagnostics (10/04/2022 07:01 EST US Abdomen/Elastography/Doppler Abdomen) IMPRESSION: Limited examination. Elastography indicates a mild moderate risk of clinically significant liver fibrosis. Cirrhotic morphology of the liver. Splenomegaly [1] Assessment/Plan 1. Cirrhosis 2. Hepatic encephalopathy Increased ammonia levels, on lactulose, MOM and rifaximin, newly diagnosed cirrhosis, elastography showing mild to moderate risk of fibrosis and splenomegaly, GI following for work-up, likely alcohol use, GI recommend EGD and colonoscopy as an outpatient UTI, urine cultures pending, patient on Rocephin Pancytopenia, WBC 3, hemoglobin 8.7, PLT 68, likely due to liver disease and iron deficiency, completed 3 days of IV iron, will start pt on oral iron Please see Dr. Stahl's addendum for further recommendations Problem List/Past Medical History Ongoing Cirrhosis Hepatic encephalopathy Historical No qualifying data Procedure/Surgical History No qualifying data available. Medications busPIRone, 10 mg= 1 tab(s), Oral, TID busPIRone 10 mg oral tablet, 10 mg= 1 tab(s), Oral, TID citalopram, 40 mg= 1 tab(s), Oral, qDay citalopram 40 mg oral tablet, 40 mg= 1 tab(s), Oral, qDay cloNIDine, 0.1 mg= 1 tab(s), Oral, BID, PRN cloNIDine 0.1 mg oral tablet, 0.01 mg, Oral, PRN DuoNeb, 3 mL, Inhalation, q4hRT, PRN lactulose, 30 gram(s)= 45 mL, Oral, q6h Lasix, 20 mg= 1 tab(s), Oral, BID Lovenox, 40 mg= 0.4 mL, Subcutaneous, qDay melatonin, 3 mg= 1 tab(s), Oral, qHS, PRN oxyCODONE 5 mg oral tablet ( IMMEDIATE release ), 5 mg= 1 tab(s), Oral, q4h, PRN prazosin, 1 mg= 1 cap(s), Oral, 1hHS prazosin 1 mg oral capsule, 1 mg, Oral, 1hHS propranolol, 10 mg= 1 tab(s), Oral, TID Rocephin, 1 gram(s)= 10 mL, IV Push (INT), qDay SEROquel, 50 mg= 1 tab(s), Oral, qHS SEROquel 50 mg oral tablet, 50 mg= 1 tab(s), Oral, qHS Tigan, 200 mg= 2 mL, Intramuscular, q6h, PRN Xifaxan 550 mg oral tablet, 550 mg= 1 tab(s), Oral, BID Allergies NKA [1] US Abdomen/Elastography/Doppler Abdomen; OWEN AGUILAR MD 10/04/2022 07:01 EST Digitally Signed by SWAPNIL STRATTON on 10/06/2022 12:28 [facility]12-13-2022 Gastroenterology Progress note Date of Service October 06, 2022 Chief Complaint Hepatic encephalopathy, iron deficiency anemia Subjective She is better since admission. The confusion has resolved. She is oriented in time and place. She mentioned that she was mildly confused and dropping things last night. Ammonia continues to be elevatedat 217. Work-up of liver disease including hepatitis serologies, SELIN, mitochondrial antibodies, smooth muscle antibodies, AFP and alpha-1 antitrypsin have been unremarkable. Iron studies are suggestiveof iron deficiency anemia. There are no signs of GI bleeding. Hemoglobin is stable at 8.9. Elastography showed cirrhotic liver with mild to moderate risk of fibrosis. She is on lactulose and Xifaxan. She had 4 bowel movements yesterday. Chest x-ray and urinalysis are unremarkable She mentioned that she has a long history of intermittent binge drinking. She will drink excessive alcohol for few years and then go off alcohol. She has not had any alcohol for the last 10 months. She also has history of amphetamine use in the past. Objective Vitals and Measurements T: 36.8 C (Oral) TMIN: 36.4 C (Oral) TMAX: 36.8 C (Oral) HR: 67 RR: 18 BP: 128/63 SpO2: 98% Intake and Output 7AM Yesterday to 7AM Today Intake and Output (Last 24 hours) Intake Oral Intake 480.00 Output Stool Count 4.00 Urine Count 1.00 Total Summary Total Intake 480.00 Total Output 0.00 Fluid Balance 480.00 Physical Exam Eyes: No icterus or pallor ENMT: No thyromegaly or lymphadenopathy CVS: No lifts or heaves. No murmur or rub. Respiratory: Chest was clear to auscultation and percussion Gastrointestinal: Abdomen was soft and nontender. Liver and spleen are not palpable. Bowel sounds are normal. Neurological: Patient was alert and oriented 3. There was no focal neurological deficit. Asterixis was noted Psych: Mood and affect are normal. Skin: The skin was warm and there was no jaundice. Weight Dosing Weight: 120.6 kg (10/03/22) Medications Medications (15) Active Scheduled: (10) busPIRone 10 mg Tablet 10 mg 1 tab(s), Oral, TID cefTRIAXone IVP syringe 1 gram(s) 10 mL, IV Push (INT), qDay citalopram 40 mg tablet 40 mg 1 tab(s), Oral, qDay enoxaparin 40 mg/ 0.4mL syringe 40 mg 0.4 mL, Subcutaneous, qDay furosemide 20 mg tablet 20 mg 1 tab(s), Oral, BID lactulose 20 g/30 mL UD cup 30 gram(s) 45 mL, Oral, q6h prazosin 1 mg Capsule 1 mg 1 cap(s), Oral, 1hHS propranolol 10 mg tablet 10 mg 1 tab(s), Oral, TID QUEtiapine 50 mg tablet 50 mg 1 tab(s), Oral, qHS rifaximin 550 mg tablet 550 mg 1 tab(s), Oral, BID Continuous: (0) PRN: (5) albuterol - ipratropium 2.5 mg-0.5 mg/3 mL Inhal Sheri UD 3 mL, Inhalation, q4hRT clonidine 0.1 mg tablet 0.1 mg 1 tab(s), Oral, BID melatonin 3 mg tablet 3 mg 1 tab(s), Oral, qHS oxycodone 5 mg tablet (immediate release) 5 mg 1 tab(s), Oral, q4h trimethobenzamide 200 mg/2 mL Solution 200 mg 2 mL, Intramuscular, q6h Lab Results 10/06 05:38 WBC: 3.0 L Hgb: 8.7 L Hct: 28.1 L Platelet: 68 L Neutrophil %: 49.6 L Glucose Level: 126 H Sodium Level: 145 Potassium Level: 3.9 BUN: 11.0 Creatinine Lvl (s): 0.63 10/05 07:04 WBC: 3.2 L Hgb: 9.0 L Hct: 28.6 L Platelet: 74 L Neutrophil %: 49.1 L Protime: 14.5 PT International Ratio: 1.2 Glucose Level: 113 H Sodium Level: 145 Potassium Level: 4.0 BUN: 18.0 Creatinine Lvl (s): 0.62 EKG No qualifying data available. Assessment/Plan 1. Cirrhosis 2. Hepatic encephalopathy Assessment: 1. Cirrhosis most likely secondary to previous history of alcohol use. CT scan shows nodular liver with collaterals, portal hypertension and splenomegaly. 2. Hepatic encephalopathy. Her mental status is better but she still has mild confusion especially at night and mild asterixis. Ammonia is continues to be elevated. 3. Iron deficiency anemia. There are no signs of active GI bleeding Plan: 1. Continue lactulose and Xifaxan. Xifaxan was started only yesterday 2. CBC CMP and INR tomorrow Digitally Signed by HAN YOUNG MD on 10/06/2022 09:44 [facility]12-13-2022 Gastroenterology Progress note Date of Service October 06, 2022 Chief Complaint Hepatic encephalopathy, iron deficiency anemia Subjective She is better since admission. The confusion has resolved. She is oriented in time and place. She mentioned that she was mildly confused and dropping things last night. Ammonia continues to be elevatedat 217. Work-up of liver disease including hepatitis serologies, SELIN, mitochondrial antibodies, smooth muscle antibodies, AFP and alpha-1 antitrypsin have been unremarkable. Iron studies are suggestiveof iron deficiency anemia. There are no signs of GI bleeding. Hemoglobin is stable at 8.9. Elastography showed cirrhotic liver with mild to moderate risk of fibrosis. She is on lactulose and Xifaxan. She had 4 bowel movements yesterday. Chest x-ray and urinalysis are unremarkable She mentioned that she has a long history of intermittent binge drinking. She will drink excessive alcohol for few years and then go off alcohol. She has not had any alcohol for the last 10 months. She also has history of amphetamine use in the past. Objective Vitals and Measurements T: 36.8 C (Oral) TMIN: 36.4 C (Oral) TMAX: 36.8 C (Oral) HR: 67 RR: 18 BP: 128/63 SpO2: 98% Intake and Output 7AM Yesterday to 7AM Today Intake and Output (Last 24 hours) Intake Oral Intake 480.00 Output Stool Count 4.00 Urine Count 1.00 Total Summary Total Intake 480.00 Total Output 0.00 Fluid Balance 480.00 Physical Exam Eyes: No icterus or pallor ENMT: No thyromegaly or lymphadenopathy CVS: No lifts or heaves. No murmur or rub. Respiratory: Chest was clear to auscultation and percussion Gastrointestinal: Abdomen was soft and nontender. Liver and spleen are not palpable. Bowel sounds are normal. Neurological: Patient was alert and oriented 3. There was no focal neurological deficit. Asterixis was noted Psych: Mood and affect are normal. Skin: The skin was warm and there was no jaundice. Weight Dosing Weight: 120.6 kg (10/03/22) Medications Medications (15) Active Scheduled: (10) busPIRone 10 mg Tablet 10 mg 1 tab(s), Oral, TID cefTRIAXone IVP syringe 1 gram(s) 10 mL, IV Push (INT), qDay citalopram 40 mg tablet 40 mg 1 tab(s), Oral, qDay enoxaparin 40 mg/ 0.4mL syringe 40 mg 0.4 mL, Subcutaneous, qDay furosemide 20 mg tablet 20 mg 1 tab(s), Oral, BID lactulose 20 g/30 mL UD cup 30 gram(s) 45 mL, Oral, q6h prazosin 1 mg Capsule 1 mg 1 cap(s), Oral, 1hHS propranolol 10 mg tablet 10 mg 1 tab(s), Oral, TID QUEtiapine 50 mg tablet 50 mg 1 tab(s), Oral, qHS rifaximin 550 mg tablet 550 mg 1 tab(s), Oral, BID Continuous: (0) PRN: (5) albuterol - ipratropium 2.5 mg-0.5 mg/3 mL Inhal Sheri UD 3 mL, Inhalation, q4hRT clonidine 0.1 mg tablet 0.1 mg 1 tab(s), Oral, BID melatonin 3 mg tablet 3 mg 1 tab(s), Oral, qHS oxycodone 5 mg tablet (immediate release) 5 mg 1 tab(s), Oral, q4h trimethobenzamide 200 mg/2 mL Solution 200 mg 2 mL, Intramuscular, q6h Lab Results 10/06 05:38 WBC: 3.0 L Hgb: 8.7 L Hct: 28.1 L Platelet: 68 L Neutrophil %: 49.6 L Glucose Level: 126 H Sodium Level: 145 Potassium Level: 3.9 BUN: 11.0 Creatinine Lvl (s): 0.63 10/05 07:04 WBC: 3.2 L Hgb: 9.0 L Hct: 28.6 L Platelet: 74 L Neutrophil %: 49.1 L Protime: 14.5 PT International Ratio: 1.2 Glucose Level: 113 H Sodium Level: 145 Potassium Level: 4.0 BUN: 18.0 Creatinine Lvl (s): 0.62 EKG No qualifying data available. Assessment/Plan 1. Cirrhosis 2. Hepatic encephalopathy Assessment: 1. Cirrhosis most likely secondary to previous history of alcohol use. CT scan shows nodular liver with collaterals, portal hypertension and splenomegaly. 2. Hepatic encephalopathy. Her mental status is better but she still has mild confusion especially at night and mild asterixis. Ammonia is continues to be elevated. 3. Iron deficiency anemia. There are no signs of active GI bleeding Plan: 1. Continue lactulose and Xifaxan. Xifaxan was started only yesterday 2. CBC CMP and INR tomorrow Digitally Signed by HAN YOUNG MD on 10/06/2022 09:44 [facility]12-13-2022 Note. MICRO - Microbiology PROCEDURE: Urine Culture [*1] SOURCE: Urine BODY SITE: COLLECTED DATE/TIME: 10/04/2022 17:02 EST RECEIVED DATE/TIME: 10/04/2022 22:00 EST START DATE/TIME: 10/04/2022 22:00 EST FREE TEXT SOURCE: FINAL REPORTS Final Report [] Verified Date/Time/Personnel: 10/06/2022 07:41 EST No growth at 48 hours. PRELIMINARY REPORTS Preliminary Report [] Verified Date/Time/Personnel: 2022 10:20 EST No growth to date Performing Locations *1: This test was performed at: [facility], [address] [place] [address], [id number] , [facility] [place] ([place])2022 Note Date of Service 2022 Chief Complaint Hepatic encephalopathy Subjective 51-year-old female with history of alcohol abuse having not drank in months, HTN, anxiety/depression& bipolar psychosis that presented with hepatic encephalopathy. CT head was negative. CT abdomenwas consistent with hepatocellular disease , cholecystectomy clips in the right upper quadrant enlarged spleen 17.8 cm in length also collateral vessels noted in the left upper quadrant and anterior abdomen consistent with varices. Alcohol level at outside hospital was actually < 3. GI is on board for cirrhosis work-up. SP and viral hepatitis panel were negative. She is no longer confused and AAOx3. She does states she does have dark malodorous urine. Status post 2 bowel movement today which is not at goal. She does also describe essential tremors. Otherwise 10 point review of systems is negative. Plan of care was discussed with patient and nursing staff. Objective Vitals and Measurements T: 36.7 C (Oral) TMIN: 36.2 C (Axillary) TMAX: 36.9 C (Oral) HR: 90(Monitored) RR: 18 BP: 147/76 SpO2: 96% Intake and Output 7AM Yesterday to 7AM Today Intake and Output (Last 24 hours) Intake Output Urine Count 2.00 Total Summary Total Intake 0.00 Total Output 0.00 Fluid Balance 0.00 Physical Exam General: AAO x3, appears anxious Heart: RRR, S1/S2. No murmurs. Lungs: CTA B/L, unlabored Abdomen: Soft, nontender, distended, + bowel sounds Extremities: + 1 pitting edema B/L, +2 dorsalis pedis pulses bilaterally. Mildly tremulous Weight Dosing Weight: 120.6 kg (10/03/22) Medications Medications (14) Active Scheduled: (9) albumin human 25% (50 mL) vial 25 gram(s) 100 mL, Intravenous, TID busPIRone 10 mg Tablet 10 mg 1 tab(s), Oral, TID citalopram 40 mg tablet 40 mg 1 tab(s), Oral, qDay enoxaparin 40 mg/ 0.4mL syringe 40 mg 0.4 mL, Subcutaneous, qDay iron sucrose 300 mg 15 mL, IV Piggyback, Daily lactulose 20 g/30 mL UD cup 20 gram(s) 30 mL, Oral, q6h prazosin 1 mg Capsule 1 mg 1 cap(s), Oral, 1hHS QUEtiapine 50 mg tablet 50 mg 1 tab(s), Oral, qHS rifaximin 550 mg tablet 550 mg 1 tab(s), Oral, BID Continuous: (0) PRN: (5) albuterol - ipratropium 2.5 mg-0.5 mg/3 mL Inhal Sheri UD 3 mL, Inhalation, q4hRT clonidine 0.1 mg tablet 0.1 mg 1 tab(s), Oral, BID melatonin 3 mg tablet 3 mg 1 tab(s), Oral, qHS oxycodone 5 mg tablet (immediate release) 5 mg 1 tab(s), Oral, q4h trimethobenzamide 200 mg/2 mL Solution 200 mg 2 mL, Intramuscular, q6h Lab Results 10/05 07:04 WBC: 3.2 L Hgb: 9.0 L Hct: 28.6 L Platelet: 74 L Neutrophil %: 49.1 L Protime: 14.5 PT International Ratio: 1.2 Glucose Level: 113 H Sodium Level: 145 Potassium Level: 4.0 BUN: 18.0 Creatinine Lvl (s): 0.62 EKG No qualifying data available. Assessment/Plan Hepatic encephalopathy UTI Thrombocytopenia with splenomegaly Cirrhosis possibly secondary to alcohol Possible essential tremors Low urine output Edema History of alcohol abuse-has not drank in months per family Iron deficiency anemia-uncertain of baseline hemoglobin. Lactic acidosis-resolved Thrombocytopenia HTN Anxiety/depression/bipolar psychosis With increased ammonia increase lactulose and recheck in the morning. MOM and rifaximin per GI. GI work-up for cirrhosis though alcohol is likely etiology. Abdominal Doppler ultrasound with elastography is concerning for mild to moderate risk fibrosis and splenomegaly. GI recommends outpatient EGD/col onoscopy with Dr. Barbosa. With worsening thrombocytopenia and splenomegaly we will consult hematology. Viral hepatitis panel was negative. Off alcohol withdrawal protocol as unlikely to withdrawal. With UTI will order Rocephin and follow urine cultures. Patient was receiving albumin 3 times a day to help replace volume in vasculature and allow for increased urine output, but at this point nursing staff states patient has good urine output therefore we will trial off IV albumin. Continue IV iron day2/3. Check stool occult. Transfuse for hemoglobin less than 7. Check lower extremity ultrasounds. She states she was on Lasix at home therefore will order Lasix 20 mg twice daily. Trial propranolol forpossible essential tremors. Check a.m. labs and ammonia level. Disposition: Awaiting PT/OT. Digitally Signed by ANAM KAISER DO on 2022 07:23 [facility]12-12-2022 Nurse Progress note2 bottles of med. & inhaler in med. room Digitally Signed by Charmaine Levy LPN on 2022 12:07 [facility]12-12-2022 Hospital Discharge instructions Patient Bquphafud20/12/2022 09:44:38CirrhosisCirrhosis Cirrhosis is long-term (chronic) liver injury. The liver is the body's largest internal organ, and it performs many functions. It converts food into energy, removes toxic material from the blood, makesimportant proteins, and absorbs necessary vitamins from food. In cirrhosis, healthy liver cells are replaced by scar tissue. This prevents blood from flowing through the liver, making it difficult for the liver to function. Scarring of the liver cannot be reversed, but treatment can prevent it from getting worse. What are the causes? Common causes of this condition are hepatitis C and long-term alcohol abuse. Other causes include: Nonalcoholic fatty liver disease. This happens when fat is deposited in the liver by causes other than alcohol. Hepatitis B infection. Autoimmune hepatitis. In this condition, the body's defense system (immune system) mistakenly attacks the liver cells, causing irritation and swelling (inflammation). Diseases that cause blockage of ducts inside the liver. Inherited liver diseases, such as hemochromatosis. This is one of the most common inherited liver diseases. In this disease, deposits of iron collect in the liver and other organs. Reactions to certain long-term medicines, such as amiodarone, a heart medicine. Parasitic infections. These include schistosomiasis, which is caused by a flatworm. Long-term contact to certain toxins. These toxins include certain organic solvents, such as tolueneand chloroform. What increases the risk? You are more likely to develop this condition if: You have certain types of viral hepatitis. You abuse alcohol, especially if you are female. You are overweight. You share needles. You have unprotected sex with someone who has viral hepatitis. What are the signs or symptoms? You may not have any signs and symptoms at first. Symptoms may not develop until the damage to your liver starts to get worse. Early symptoms may include: Weakness and tiredness (fatigue). Changes in sleep patterns or having trouble sleeping. Itchiness. Tenderness in the right-upper part of your abdomen. Weight loss and muscle loss. Nausea. Loss of appetite. Appearance of tiny blood vessels under the skin. Later symptoms may include: Fatigue or weakness that is getting worse. Yellow skin and eyes (jaundice). Buildup of fluid in the abdomen (ascites). You may notice that your clothes are tight around your waist. Weight gain. Swelling of the feet and ankles (edema). Trouble breathing. Easy bruising and bleeding. Vomiting blood. Black or bloody stool. Mental confusion. How is this diagnosed? Your health care provider may suspect cirrhosis based on your symptoms and medical history, especially if you have other medical conditions or a history of alcohol abuse. Your health care provider willdo a physical exam to feel your liver and to check for signs of cirrhosis. He or she may perform other tests, including: Blood tests to check: ?For hepatitis B or C. ?Kidney function. ?Liver function. Imaging tests such as: ?MRI or CT scan to look for changes seen in advanced cirrhosis. ?Ultrasound to see if normal liver tissue is being replaced by scar tissue. A procedure in which a long needle is used to take a sample of liver tissue to be checked in a lab (biopsy). Liver biopsy can confirm the diagnosis of cirrhosis. How is this treated? Treatment for this condition depends on how damaged your liver is and what caused the damage. It mayinclude treating the symptoms of cirrhosis, or treating the underlying causes in order to slow the damage. Treatment may include: Making lifestyle changes, such as: ?Eating a healthy diet. You may need to work with your health care provider or a diet and epic ambulatory specialists (dietitian) to develop an eating plan. ?Restricting salt intake. ?Maintaining a healthy weight. ?Not abusing drugs or alcohol. Taking medicines to: ?Treat liver infections or other infections. ?Control itching. ?Reduce fluid buildup. ?Reduce certain blood toxins. ?Reduce risk of bleeding from enlarged blood vessels in the stomach or esophagus (varices). Liver transplant. In this procedure, a liver from a donor is used to replace your diseased liver. This is done if cirrhosis has caused liver failure. Other treatments and procedures may be done depending on the problems that you get from cirrhosis. Common problems include liver-related kidney failure (hepatorenal syndrome). Follow these instructions at home: Take medicines only as told by your health care provider. Do not use medicines that are toxic to your liver. Ask your health care provider before taking any new medicines, including [id number] medicines. Rest as needed. Eat a well-balanced diet. Ask your health care provider or dietitian for more information. Limit your salt or water intake, if your health care provider asks you to do this. Do not drink alcohol. This is especially important if you are taking acetaminophen. Keep all follow-up visits as told by your health care provider. This is important. Contact a health care provider if you: Have fatigue or weakness that is getting worse. Develop swelling of the hands, feet, legs, or face. Have a fever. Develop loss of appetite. Have nausea or vomiting. Develop jaundice. Develop easy bruising or bleeding. Get help right away if you: Vomit bright red blood or a material that looks like coffee grounds. Have blood in your stools. Notice that your stools appear black and tarry. Become confused. Have chest pain or trouble breathing. Summary Cirrhosis is chronic liver injury. Liver damage cannot be reversed. Common causes are hepatitis C and long-term alcohol abuse. Tests used to diagnose cirrhosis include blood tests, imaging tests, and liver biopsy. Treatment for this condition involves treating the underlying cause. Avoid alcohol, drugs, salt, and medicines that may damage your liver. Contact your health care provider if you develop ascites, edema, jaundice, fever, nausea or vomiting, easy bruising or bleeding, or worsening fatigue. This information is not intended to replace advice given to you by your health care provider. Make sure you discuss any questions you have with your health care provider. Document Released: 10/11/2006 Document Revised: 01/31/2020 Document Reviewed: 08/31/2018 [employer] Patient Education 2020 [employer] Follow Up Care10/03/2022 11:19:14With:TIM ROBLEDO CNP Address: [address] [place] [phone] When:1-2 days Comments:Please call the office to schedule follow up appointment.With: PREMA STAHL MD Address: [address] [place] [address] [place] [phone] When:Within 1 Week(s) Comments:Please call the office to schedule follow up appointment.With:RAYA ALMAZAN MD Address: [address] [place], [place] [address]- [phone] When:1-2 days Comments:Please call the office to schedule appointmentWith:MAINOR COLE MD Address: [facility] [address] [facility] [address] [place] [address]- When:1-2 days Comments:Choice #1With:FRANCESCA VILLEGAS MD Address: [address] [facility] [address] [place] [address]- When:1-2 days Comments:Choice #2With:JIMBO DURANT DO Address: [facility] [address] [place] [address] [place] [address]- When:1-2 days [facility] Progress note Date of Service 2022 Chief Complaint Hepatic encephalopathy and confusion Subjective She is doing much better. She seems to be oriented in time and place. She denies any confusion. There is no abdominal pain nausea or vomiting. She is not certain how many bowel movements she had yesterday. There is no hematemesis melena or hematochezia. Hemoglobin is stable at 9.0. Iron studies are consistent with iron deficiency anemia. Hepatitis serology, ceruloplasmin and alpha-1 antitrypsin are unremarkable. SELIN, smooth muscle antibodies and AMA are pending. Objective Vitals and Measurements T: 36.9 C (Oral) TMIN: 36.2 C (Axillary) TMAX: 37.0 C (Oral) HR: 95(Monitored) RR: 18 BP: 128/63 SpO2: 94% Intake and Output 7AM Yesterday to 7AM Today Intake and Output (Last 24 hours) Intake Output Urinary Catheter Output: 100.00 Urine Count 1.00 Total Summary Total Intake 0.00 Total Output 100.00 Fluid Balance -100.00 Physical Exam Eyes: No icterus or pallor ENMT: No thyromegaly or lymphadenopathy CVS: No lifts or heaves. No murmur or rub. Respiratory: Chest was clear to auscultation and percussion Gastrointestinal: Abdomen was soft and nontender. Liver and spleen are not palpable. Bowel sounds are normal. Neurological: Patient was alert and oriented 3. There was no focal neurological deficit. Psych: Mood and affect are normal. Skin: The skin was warm and there was no jaundice. Weight Dosing Weight: 120.6 kg (10/03/22) Medications Medications (14) Active Scheduled: (9) albumin human 25% (50 mL) vial 25 gram(s) 100 mL, Intravenous, TID busPIRone 10 mg Tablet 10 mg 1 tab(s), Oral, TID citalopram 40 mg tablet 40 mg 1 tab(s), Oral, qDay enoxaparin 40 mg/ 0.4mL syringe 40 mg 0.4 mL, Subcutaneous, qDay iron sucrose 300 mg 15 mL, IV Piggyback, Daily lactulose 20 g/30 mL UD cup 20 gram(s) 30 mL, Oral, q6h prazosin 1 mg Capsule 1 mg 1 cap(s), Oral, 1hHS QUEtiapine 50 mg tablet 50 mg 1 tab(s), Oral, qHS rifaximin 550 mg tablet 550 mg 1 tab(s), Oral, BID Continuous: (0) PRN: (5) albuterol - ipratropium 2.5 mg-0.5 mg/3 mL Inhal Sheri UD 3 mL, Inhalation, q4hRT clonidine 0.1 mg tablet 0.1 mg 1 tab(s), Oral, BID melatonin 3 mg tablet 3 mg 1 tab(s), Oral, qHS oxycodone 5 mg tablet (immediate release) 5 mg 1 tab(s), Oral, q4h trimethobenzamide 200 mg/2 mL Solution 200 mg 2 mL, Intramuscular, q6h Lab Results 10/05 07:04 WBC: 3.2 L Hgb: 9.0 L Hct: 28.6 L Platelet: 74 L Neutrophil %: 49.1 L Protime: 14.5 PT International Ratio: 1.2 Glucose Level: 113 H Sodium Level: 145 Potassium Level: 4.0 BUN: 18.0 Creatinine Lvl (s): 0.62 10/04 05:55 WBC: 3.9 L Hgb: 8.9 L Hct: 28.0 L Platelet: 84 L Neutrophil %: 43.9 L Glucose Level: 102 Sodium Level: 147 H Potassium Level: 3.9 BUN: 16.0 Creatinine Lvl (s): 0.67 EKG EKG - Completed -- 10/04/22 8:00:00 EST Assessment/Plan 1. Cirrhosis 2. Hepatic encephalopathy Orders: rifaximin, Start: 10/04/22 10:19:00 EST, Dose = 550 mg, = 1 tab(s), Oral, BID, 10/04/22 10:19:00 EST Assessment: 1. Cirrhosis 2. Hepatic encephalopathy. This seems to be getting better 3. Iron deficiency anemia Plan: 1. Continue Xifaxan and lactulose 2. She will need EGD and colonoscopy as an outpatient when hepatic encephalopathy has improved. She mentioned she lives far from [place]. I gave her the name of Dr. Barbosa in [place] for follow-up Digitally Signed by HAN YOUNG MD on 2022 09:46 [facility]12-12-2022 Nurse Progress noteAttempted to call Vaibhav as patient wanted to talk to him. First call resulted in a busy tone, and the second call said that number was no loner in service. Digitally Signed by Art Peralta LPN on 2022 01:32 [facility]12-11-2022 Note ORIGINAL EXAMINATION: Hepatic elastography TECHNIQUE: 2D Shear Wave Elastography of the liver was performed in the right lobe. COMPARISON: None HISTORY: Cirrhosis FINDINGS: Exam sensitivity is decreased by persistent involuntary patient motion artifact. Additionally the patient was unable to suspend respiration or follow direction. Cirrhotic morphology of the liver is demonstrated. Splenomegaly is noted at 15.2 cm. Common bile duct measuring 0.4 cm. No biliary dilatation. Gallbladder surgically absent. A pancreas is suboptimally visualized. And kidneys appear within normal limits. However and left kidney is suboptimally visualized by positioning. Aorta and IVC are also not well visualized. Median velocity: 1.69 m/s IQR/median ratio: 14 5% (Value less than or equal to 15% should be seen to ensure exam adequacy.) IMPRESSION: Limited examination. Elastography indicates a mild moderate risk of clinically significant liver fibrosis. Cirrhotic morphology of the liver. Splenomegaly Shear Wave Liver Elastography-liver fibrosis staging Median Velocity: Recommendation: 1.35-1.66 m/s (5.48 kPa - 8.29 kPa) Normal to mild risk of clinically significant liver fibrosis : METAVIR Stage F1 1.66-1.77 m/s (8.29 kPa - 9.40 kPa) Agny-br-hqduplog risk of clinically significant liver fibrosis. (METAVIR Stage F2) 1.77-1.99 m/s (9.40 kPa - 11.9 kPa) Moderate to severe risk of clinically significant liver fibrosis (METAVIR Stage F3) > 1.99 m/s (> 11.9 kPa) Advanced Fibrosis and/or Cirrhosis: (METAVIR Stage F4) Interpreted by: Owen Aguilar Preliminary Report By: Owen Aguilar Electronically signed By Owen Aguilar Dictated Date: 10/04/2022 8:37:01 PM Prelim Date: 10/04/2022 8:40:55 PM Sign Date: 10/04/2022 8:40:55 PM Ordering Provider: [facility]12-11-2022 Note Date of Service 10/04/2022 Chief Complaint Hepatic encephalopathy Subjective 51-year-old female with history of alcohol abuse having not drank in months, HTN, anxiety/depression& bipolar psychosis that presented with hepatic encephalopathy. CT head was negative. CT abdomenwas consistent with hepatocellular disease , cholecystectomy clips in the right upper quadrant enlarged spleen 17.8 cm in length also collateral vessels noted in the left upper quadrant and anterior abdomen consistent with varices. Alcohol level at outside hospital was actually < 3. GI is on board for cirrhosis work-up. SP and viral hepatitis panel were negative. Patient is still confused. Status post 1 bowel movement today which is not at goal. Per nursing staff she has poor urine output with only 146 cc on bladder scan. Otherwise 10 point review of systems is negative. Plan of care was discussed with patient and nursing staff. Objective Vitals and Measurements T: 37.0 C (Oral) TMIN: 36.9 C (Oral) TMAX: 37.1 C (Oral) HR: 92 BP: 109/63 SpO2: 95% Intake and Output 7AM Yesterday to 7AM Today Intake and Output (Last 24 hours) Intake Output Total Summary Total Intake 0.00 Total Output 0.00 Fluid Balance 0.00 Physical Exam General: AAO x1, no acute distress Heart: RRR, S1/S2. No murmurs. Lungs: CTA B/L, unlabored Abdomen: Soft, nontender, distended, + bowel sounds Extremities: +2 pitting edema B/L, +2 dorsalis pedis pulses bilaterally. Weight Dosing Weight: 120.6 kg (10/03/22) Medications Medications (13) Active Scheduled: (8) albumin human 25% (50 mL) vial 25 gram(s) 100 mL, Intravenous, TID busPIRone 10 mg Tablet 10 mg 1 tab(s), Oral, TID citalopram 40 mg tablet 40 mg 1 tab(s), Oral, qDay enoxaparin 40 mg/ 0.4mL syringe 40 mg 0.4 mL, Subcutaneous, qDay lactulose 20 g/30 mL UD cup 20 gram(s) 30 mL, Oral, q6h prazosin 1 mg Capsule 1 mg 1 cap(s), Oral, 1hHS QUEtiapine 50 mg tablet 50 mg 1 tab(s), Oral, qHS rifaximin 550 mg tablet 550 mg 1 tab(s), Oral, BID Continuous: (0) PRN: (5) albuterol - ipratropium 2.5 mg-0.5 mg/3 mL Inhal Sheri UD 3 mL, Inhalation, q4hRT clonidine 0.1 mg tablet 0.1 mg 1 tab(s), Oral, BID melatonin 3 mg tablet 3 mg 1 tab(s), Oral, qHS oxycodone 5 mg tablet (immediate release) 5 mg 1 tab(s), Oral, q4h trimethobenzamide 200 mg/2 mL Solution 200 mg 2 mL, Intramuscular, q6h Lab Results 10/04 05:55 WBC: 3.9 L Hgb: 8.9 L Hct: 28.0 L Platelet: 84 L Neutrophil %: 43.9 L Glucose Level: 102 Sodium Level: 147 H Potassium Level: 3.9 BUN: 16.0 Creatinine Lvl (s): 0.67 10/03 12:46 Protime: 14.1 PT International Ratio: 1.2 Glucose Level: 104 Sodium Level: 147 H Potassium Level: 3.7 BUN: 11.0 Creatinine Lvl (s): 0.60 10/03 12:45 WBC: 5.0 Hgb: 10.1 L Hct: 32.0 L Platelet: 103 L Neutrophil %: 60.2 Imaging Results and Diagnostics XR Chest 1 View Result Date: October 03, 2022 Verified By: MUSTAPHA MORALES MD CLINICAL STATEMENT: IMPRESSION: No evidence of an acute process. Mild cardiomegaly with likely left atrial enlargement. EKG EKG - Completed -- 10/04/22 8:00:00 EST Assessment/Plan Hepatic encephalopathy Cirrhosis possibly secondary to alcohol Low urine output Edema History of alcohol abuse-has not drank in months per family Iron deficiency anemia-uncertain of baseline hemoglobin. Lactic acidosis-resolved Thrombocytopenia HTN Anxiety/depression/bipolar psychosis Continue lactulose. MOM and rifaximin per GI. Recheck ammonia level, and once normalized if still confused consider psychiatry consult. GI work-up for cirrhosis though alcohol is likely etiology. Awaiting abdominal Doppler ultrasound with elastography. Viral hepatitis panel was negative. Discontinue al cohol withdrawal protocol as unlikely to withdrawal. Will need straight cath to obtain UA and urine culture as ordered yesterday. Will order albumin 3 times a day to help replace volume and vasculatureand allow for increased urine output. Order IV iron. Check stool occult. Transfuse for hemoglobin less than 7. Check lower extremity ultrasounds. Check a.m. labs and ammonia level. Condition: Guarded. Digitally Signed by ANAM KAISER DO on 10/04/2022 02:49 [facility]12-11-2022 Gastroenterology Progress note Date of Service October 04, 2022 Chief Complaint Hepatic encephalopathy Subjective She continues to be confused. She had 1 bowel movement yesterday and 1 bowel meant today. There is no hematemesis melena or hematochezia. She denies any abdominal pain nausea or vomiting. Objective Vitals and Measurements T: 36.9 C (Oral) TMIN: 36.9 C (Oral) TMAX: 37.1 C (Oral) HR: 99 RR: 18 BP: 119/72 SpO2: 95% HT: 165 cm WT: 120.6 kg BMI: 44.3 Intake and Output 7AM Yesterday to 7AM Today Intake and Output (Last 24 hours) Intake Output Total Summary Total Intake 0.00 Total Output 0.00 Fluid Balance 0.00 Physical Exam Eyes: No icterus or pallor ENMT: No thyromegaly or lymphadenopathy CVS: No lifts or heaves. No murmur or rub. Respiratory: Chest was clear to auscultation and percussion Gastrointestinal: Abdomen was soft and nontender. Liver and spleen are not palpable. Bowel sounds are normal. Neurological: Mild asterixis was noted Psych: She is confused Skin: The skin was warm and there was no jaundice. Weight Dosing Weight: 120.6 kg (10/03/22) Medications Medications (21) Active Scheduled: (12) busPIRone 10 mg Tablet 10 mg 1 tab(s), Oral, TID citalopram 40 mg tablet 40 mg 1 tab(s), Oral, qDay enoxaparin 40 mg/ 0.4mL syringe 40 mg 0.4 mL, Subcutaneous, qDay folic acid 1 mg 0.2 mL, IV Piggyback, qDay folic acid 1 mg tablet 1 mg 1 tab(s), Oral, qDay lactulose 20 g/30 mL UD cup 20 gram(s) 30 mL, Oral, q6h magnesium hydroxide 8% Suspension 30 mL UD 30 mL, Oral, Once prazosin 1 mg Capsule 1 mg 1 cap(s), Oral, 1hHS QUEtiapine 50 mg tablet 50 mg 1 tab(s), Oral, qHS rifaximin 550 mg tablet 550 mg 1 tab(s), Oral, BID thiamine (w/calcium) 100 mg tablet 100 mg 1 tab(s), Oral, qDay thiamine 200 mg/2 mL Solution 100 mg 1 mL, IV Push, qDay Continuous: (0) PRN: (9) albuterol - ipratropium 2.5 mg-0.5 mg/3 mL Inhal Sheri UD 3 mL, Inhalation, q4hRT clonidine 0.1 mg tablet 0.1 mg 1 tab(s), Oral, BID LORAZEPam 0.5 mg tablet 0.5 mg 1 tab(s), Oral, q30min LORAZEPam 1 mg Tablet 1 mg 1 tab(s), Oral, q30min LORAZEPam 2 mg/mL 1 mL vial 1 mg 0.5 mL, IV Push, q30min LORAZEPam 2 mg/mL 1 mL vial 0.5 mg 0.25 mL, IV Push, q30min melatonin 3 mg tablet 3 mg 1 tab(s), Oral, qHS oxycodone 5 mg tablet (immediate release) 5 mg 1 tab(s), Oral, q4h trimethobenzamide 200 mg/2 mL Solution 200 mg 2 mL, Intramuscular, q6h Lab Results 10/04 05:55 WBC: 3.9 L Hgb: 8.9 L Hct: 28.0 L Platelet: 84 L Neutrophil %: 43.9 L Glucose Level: 102 Sodium Level: 147 H Potassium Level: 3.9 BUN: 16.0 Creatinine Lvl (s): 0.67 10/03 12:46 Protime: 14.1 PT International Ratio: 1.2 Glucose Level: 104 Sodium Level: 147 H Potassium Level: 3.7 BUN: 11.0 Creatinine Lvl (s): 0.60 10/03 12:45 WBC: 5.0 Hgb: 10.1 L Hct: 32.0 L Platelet: 103 L Neutrophil %: 60.2 EKG Electrocardiogram (EKG) - InProcess -- 10/04/22 8:00:00 EST Assessment/Plan 1. Cirrhosis 2. Hepatic encephalopathy Orders: magnesium hydroxide, Start: 10/04/22 10:30:00 EST, Dose = 30 mL, Susp-Oral, Oral, Once, Stop: 10/04/22 10:30:00 EST, 10/04/22 10:20:00 EST rifaximin, Start: 10/04/22 10:19:00 EST, Dose = 550 mg, = 1 tab(s), Oral, BID, 10/04/22 10:19:00 EST Complete Blood Count Complete Metabolic Panel Prothrombin Time - Panel Assessment: 1. Hepatic encephalopathy. She continues to be confused. Serum ammonia is still elevatedat 117. 2. Cirrhosis the etiology is not clear but may be related to alcohol use. Is difficult to get history from her. Alpha-fetoprotein, hepatitis serologies, alpha-1 antitrypsin are unremarkable. BUN is 16 creatinine 0.67. Serum ferritin is low at 6 3. Anemia which is probably related to liver disease. Is also possible she may portal hypertensive gastropathy because of cirrhosis. There are no signs of active GI bleeding Plan: 1. See orders above 2. Continue lactulose and add Xifaxan. I discussed with the pharmacy and the fact will be dispensed for her Digitally Signed by HAN YOUNG MD on 10/04/2022 10:25 [facility]12-11-2022 Note ORIGINAL EXAMINATION: Hepatic elastography TECHNIQUE: 2D Shear Wave Elastography of the liver was performed in the right lobe. COMPARISON: None HISTORY: Cirrhosis FINDINGS: Exam sensitivity is decreased by persistent involuntary patient motion artifact. Additionally the patient was unable to suspend respiration or follow direction. Cirrhotic morphology of the liver is demonstrated. Splenomegaly is noted at 15.2 cm. Common bile duct measuring 0.4 cm. No biliary dilatation. Gallbladder surgically absent. A pancreas is suboptimally visualized. And kidneys appear within normal limits. However and left kidney is suboptimally visualized by positioning. Aorta and IVC are also not well visualized. Median velocity: 1.69 m/s IQR/median ratio: 14 5% (Value less than or equal to 15% should be seen to ensure exam adequacy.) IMPRESSION: Limited examination. Elastography indicates a mild moderate risk of clinically significant liver fibrosis. Cirrhotic morphology of the liver. Splenomegaly Shear Wave Liver Elastography-liver fibrosis staging Median Velocity: Recommendation: 1.35-1.66 m/s (5.48 kPa - 8.29 kPa) Normal to mild risk of clinically significant liver fibrosis : METAVIR Stage F1 1.66-1.77 m/s (8.29 kPa - 9.40 kPa) Eahd-qi-vlllckna risk of clinically significant liver fibrosis. (METAVIR Stage F2) 1.77-1.99 m/s (9.40 kPa - 11.9 kPa) Moderate to severe risk of clinically significant liver fibrosis (METAVIR Stage F3) > 1.99 m/s (> 11.9 kPa) Advanced Fibrosis and/or Cirrhosis: (METAVIR Stage F4) Interpreted by: Owen Aguilar Preliminary Report By: Owen Aguilar Electronically signed By Owen Aguilar Dictated Date: 10/04/2022 8:37:01 PM Prelim Date: 10/04/2022 8:40:55 PM Sign Date: 10/04/2022 8:40:55 PM Ordering Provider: [facility]12-10-2022 Note ORIGINAL EXAMINATION: ONE XRAY VIEW OF THE CHEST 10/03/2022 2:20 pm COMPARISON: None. HISTORY: ORDERING SYSTEM PROVIDED HISTORY: Reason for Exam: cough FINDINGS: The cardiomediastinal silhouette appears mildly enlarged. Likely left atrial enlargement is appreciated. No consolidates are seen. There is no pleural effusion or pneumothorax. No free air seen beneath the level of the diaphragm. The bony thorax appears acutely intact. Right shoulder postsurgical anchors are noted. IMPRESSION: No evidence of an acute process. Mild cardiomegaly with likely left atrial enlargement. Interpreted by: Mustapha Morales MD Preliminary Report By: Mustapha Morales MD Electronically signed By Mustapha Morales MD Dictated Date: 10/03/2022 3:47:55 PM Prelim Date: 10/03/2022 3:48:50 PM Sign Date: 10/03/2022 3:48:50 PM Ordering Provider: [facility]12-10-2022 Note ORIGINAL EXAMINATION: ONE XRAY VIEW OF THE CHEST 10/03/2022 2:20 pm COMPARISON: None. HISTORY: ORDERING SYSTEM PROVIDED HISTORY: Reason for Exam: cough FINDINGS: The cardiomediastinal silhouette appears mildly enlarged. Likely left atrial enlargement is appreciated. No consolidates are seen. There is no pleural effusion or pneumothorax. No free air seen beneath the level of the diaphragm. The bony thorax appears acutely intact. Right shoulder postsurgical anchors are noted. IMPRESSION: No evidence of an acute process. Mild cardiomegaly with likely left atrial enlargement. Interpreted by: Mustapha Morales MD Preliminary Report By: Mustapha Morales MD Electronically signed By Mustapha Morales MD Dictated Date: 10/03/2022 3:47:55 PM Prelim Date: 10/03/2022 3:48:50 PM Sign Date: 10/03/2022 3:48:50 PM Ordering Provider: [facility]12-10-2022 Evaluation + Plan noteExtracted from: Title:History and Physical Author:JALEESA PEREZ MD Martin e:10/03/22 Orders: albuterol-ipratropium, Start: 10/03/22 1 1:35:00 EST, Dose = 3 mL, Soln, Inhalation, q4hRT, PRN, Shortness of breath or wheezing, 10/03/22 11:35:00 EST busPIRone, Start: 10/03/22 12:09:00 EST, Dose = 10 mg, = 1 tab(s), Oral, TID, 10/03/22 12:09:00 EST citalopram, Start: 10/03/22 12:09:00 EST , Dose = 40 mg, = 1 tab(s), Oral, qDay, 10/03/22 12:09:00 EST enoxaparin, Start: 10/03/22 11:39:00 EST , Dose = 40 mg, = 0.4 mL, Subcutaneous, qDay, 0, 10/03/22 11:35:00 EST folic acid, Start: 10/03/22 12:09:00 EST , Dose = 1 mg, = 1 tab(s), Oral, qDay, 3 dose(s), Stop: 10/05/22 9:00:00 EST, 10/03/22 12:09:00 EST folic acid, Start: 10/03/22 12:09:00 EST , Dose = 1 mg, IV Piggyback, qDay, 3 dose(s), Stop: 10/05/22 9:00:00 EST, Infuse over: 30 minute(s), 10/03/22 12:09:00 EST lactulose, Start: 10/03/22 12:00:00 EST, Dose = 20 gram(s), = 30 mL, Oral, q6h, 10/03/22 11:35:00 EST LORazepam, Start: 10/03/22 12:09:00 EST, Dose = 1 mg, = 1 tab(s), Oral, q30min, PRN, for Alcohol Withdrawal Score of 6-7, 10/03/22 12:09:00 EST LORazepam, Start: 10/03/22 12:09:00 EST, Dose = 1 mg, = 0.5 mL, IV Push, q30min, PRN, for Alcohol Withdrawal Score of 6-7, 10/03/22 12:09:00 EST LORazepam, Start: 10/03/22 12:09:00 EST, Dose = 0.5 mg, = 1 tab(s), Oral, q30min, PRN, for Alcohol Withdrawal Score of 3-5, 10/03/22 12:09:00 EST LORazepam, Start: 10/03/22 12:09:00 EST, Dose = 0.5 mg, = 0.25 mL, IV Push, q30min, PRN, for Alcohol Withdrawal Score of 3-5, 10/03/22 12:09:00 EST melatonin, Start: 10/03/22 11:35:00 EST, Dose = 3 mg, = 1 tab(s), Oral, qHS, PRN, Sleep, 10/03/22 11:35:00 EST oxyCODONE, Start: 10/03/22 11:35:00 EST, Dose = 5 mg, = 1 tab(s), Oral, q4h, PRN, Pain, scale 4-6, 10/03/22 11:35:00 EST prazosin, Start: 10/03/22 21:00:00 EST, Dose = 1 mg, = 1 cap(s), Oral, 1hHS, 10/03/22 12:09:00 EST QUEtiapine, Start: 10/03/22 22:00:00 EST , Dose = 50 mg, = 1 tab(s), Oral, qHS, 10/03/22 12:10:00 EST thiamine, Start: 10/03/22 12:09:00 EST, Dose = 100 mg, = 1 tab(s), Oral, qDay, 3 dose(s), Stop: 10/05/22 9:00:00 EST, 10/03/22 12:09:00 EST thiamine, Start: 10/03/22 12:09:00 EST, Dose = 100 mg, = 1 mL, IV Push, qDay, 3 dose(s), Stop: 10/05/22 9:00:00 EST, 10/03/22 12:09:00 EST trimethobenzamide, Start: 10/03/22 12:08 :00 EST, Dose = 200 mg, = 2 mL, Intramuscular, q6h, PRN, Nausea/Vomiting, 10/03/22 12:08:00 EST Acute Hepatitis Panel Admit to Inpatient Alcohol Withdrawal Protocol - stepdown Alcohol Withdrawal Severity Score Alcohol Withdrawal Severity Score Ambulate Ammonia Level Blood Glucose Call Parameter Blood Glucose Call Parameter Blood Glucose Monitoring Bedside PRN Call Parameters Call Parameters Hot Roll Laminator Code Status Communication Order (continuous) Communication Order (continuous) Communication Order (continuous) Communication Order (scheduled) Communication Order (scheduled) Complete Blood Count Complete Blood Count Complete Metabolic Panel Complete Metabolic Panel Consult to Physician Diet Order Intake and Output IV Catheter Insertion/Care Lactic Acid Magnesium Level Notify Provider NPO after Midnight Phosphorus Level Prn Adapter Pulse Oximeter - Continuous Pulse Oximeter - Intermittent ROUTINE EMERGENCY TREATMENT - Full Code Seizure Precautions Telemetry Monitoring Urinalysis Urine Culture US Abdomen/Elastography/Doppler Abdomen Vital Signs Assessment 1. Hepatic encephalopathy 2. Lactic acidosis 3. Alcohol abuse with concern for withdr awal 4. Other medical history including hyper tension, depression anxiety, bipolar psychosis Plan 1. Continue lactulose 20 g every 6h. Ult rasound abdomen with Doppler. Hepatitis panel. Consult GI. She was slightly tachycardic on presenta tion and also at [facility] in the 110s. Presenting here at 102. She is unable to tell me the last time she had a drink. For now we will monitor on alcohol withd oly protocol this can be discontinued in the next 48 hours if no evidence of withdrawal. DVT prophylaxis. Concern the patient's underlying psychia tric history might be contributing to her symptoms she was somewhat apathetic given her confusion to answer any questions. If no overt improvement can consider ps ychiatry consultation. Monitor QTC close ly given underlying medication with Seroquel. EKG in the morning. Hold off on IV hydration for now as she is able to tolerate oral intake. UA and culture. This document was transcribed using a vo ice recognition software and may contain typographical errors. [facility] 12-10-2022 Gastroenterology Consult note Date of Service 10/03/2022 Reason for Consultation Decompensated cirrhosis, hepatic encephalopathy Referring Physician Dr. Perez History of Present Illness The patient is a 51-year-old female, who has a past medical history significant for probable cirrhosis likely secondary to alcohol versus other, HTN and likely underlying psych disease possibly depression/anxiety (per review of her home medications). Patient initially presented to [facility] in [facility] for further evaluation and treatment of shortness of breath, confusion and altered mentalstatus. Reportedly patient lives alone but was not acting quite right and had been noncompliant withmedications. On arrival to [facility] she was noted to have multiple lab abnormalities including hyperammonemia with ammonia level of 115. LFTs were also noted to be abnormal with T bili 0.7, AST 38, ALT 31, and alk phos 189. She was transferred to [facility] for further management. Noted to have lactic acidosis with initial lactic acid level of 3.0 but improved to 1.5 on recheck. Acetaminophen level <2.0. She was anemic with hemoglobin of 9.6 and MCV 74. Evidence of thrombocytopenia with platelet count of 99. CT head/brain showed no acute abnormalities. CT of abdomen pelvis was notable for a small, nodular appearing liver, per report consistent with underlying hepatocellular disease as well as splenomegaly and collateral vessels in the left upper quadrant, per report consistent with varices. We have been consulted to see the patient from a GI standpoint. She has a brother Vaibhav listed as a primary contact but no family is available at bedside. As above patient is confused and cannot provide much history. Therefore the majority of information obtained was from chart review and discussion with nursing staff. This afternoon patient was seen and examined resting in bed. She is awake, alert and oriented to person only. She cannot provide much history and does not reliably answer questions. She confirms a diagnosis of cirrhosis but cannot provide any details as regards to when this was diagnosed or the etiology. She does not believe she follows with a education trainer. Her endoscopy history is questionable. She has no known family history for GI disease or malignancies. She states that she has a current smoker and drinker. Transfer sheet from [facility] states that she has been sober for the past 8 months but this cannot be confirmed. Per discussion with nursing staff patient had a brown bowel movement . There is been no evidence of overt GI bleeding, no hematemesis, melena or hematochezia. Review of Systems 10 system review of systems was completed all pertinent positives were described above and are otherwise negative. Physical Exam Vitals and Measurements T: 37.1 C (Oral) TMIN: 37.0 C (Oral) TMAX: 37.1 C (Oral) HR: 92 RR: 18 BP: 128/87 SpO2: 99% HT: 165 cm WT: 120.6 kg BMI: 44.3 Weight Dosing Weight: 120.6 kg (10/03/22) General Appearance: Patient is alert, chronically ill-appearing, in no acute distress. Confused but cooperative. HEENT: Head is normocephalic and atraumatic. Conjunctivae are clear without exudates or hemorrhage sclera is nonicteric. Nasal mucosa is pink and moist. Oral mucosa is pink and moist. The pharynx is normal in appearance. Neck supple. Trachea midline. Cardiac: Heart rate and rhythm are normal. S1 and S2 are heard and are of normal intensity. Lungs: No signs of respiratory distress. Lung sounds are clear in all lobes bilaterally without rales, rhonchi, or wheezes. On room air Abdomen: Abdomen is soft, large, obese, symmetric and nontender without distention. There are no visible lesions or scars. Umbilicus is midline without herniation. Bowel sounds are present and active in all 4 quadrants. No masses, hepatomegaly or splenomegaly are noted. Rectal: Normal rectal sphincter tone. No external masses or lesions. Amount of light brown stool noted in rectal vault with LIV. Extremities: 1-2+ edema noted of bilateral lower extremities. Neurological: The patient is awake, alert and oriented x1. Confused and poor historian. Asterisks noted on exam. Skin: Skin is warm and dry. Lab Results No 36 Hour Lab Data Assessment/Plan 1. Cirrhosis 2. Hepatic encephalopathy We have been consulted to see the patient for decompensated cirrhosis of unknown etiology and hepatic encephalopathy in the setting of altered mental status, confusion and hyperammonemia of [address] scan of abdomen pelvis at hospital was notable for small, nodular appearing liver, splenomegaly and collateral vessels in the left upper abdominal quadrant, prorated report consistent with varices. Cirrhosis has also been complicated by thrombocytopenia with a platelet count of 99 and evidence of portal hypertension with splenomegaly and reports of varices on CT. Etiology of cirrhosis is unknown but suspect this is secondary to alcohol abuse. Patient has reported history of alcoholism, reportedly she has been sober for 8 months but this is unknown and she cannot provide any history. Reason for decompensation remains on known. Patient is anemic with hemoglobin of 9.6, MCV 74 but has no evidence of overt GI bleeding. There is been no hematemesis, melena hematochezia. LIV notable for brown stool. Recent alcohol use is unknown, she lives alone and question if reported sobriety is accurate. No evidence of ascites or free fluid on abdominal imaging. Possible thatdecompensation may be secondary to advancement of liver disease versus underlying infectious process versus noncompliance with medications. Patient is currently afebrile and on room air but she is mildly tachycardic with heart rate in the low 100s but otherwise hemodynamically stable. We will initiate complete serologic liver work-up to rule out any autoimmune, hereditary and viral liver etiologies. We will check AFP. We will check PT/INR so we can calculate a meld score. Check B12 and folate. Repeat CBC and CMP in the a.m. Evaluation for infectious process per primary team. Discussed with hospitalist after Dr. Perez. Urinalysis has been ordered. Continue with lactulose for treatment of HE. Titrate to goal of 3-4 bowel movements per day. Agree with CIWA protocol per primary team. At some point patient will need nonemergent EGD for screening of esophageal/gastric varices and/or possible portal hypertensive gastropathy as well as a nonemergent colonoscopy further evaluation of her anemia. In the absence of overt GI bleeding this can likely be arranged in the outpatient setting. Obviously sobriety and abstinence from alcohol will be sent for this patient going forward in orderto reduce her risk of morbidity, or tolerating complications of alcoholic liver disease. Thank you for this consult. We will continue to closely follow with you. Please call with questions. Refer to Dr. Young's addendum turnover further recommendations. Orders: a-1 Antitrypsin Acute Hepatitis Panel AFP tumor marker Ammonia Level Antinuclear Antibody Screen, Serum Ceruloplasmin Ferritin IgA Iron Studies Mitochondrial Antibody Prothrombin Time - Panel Smooth Muscle Antibody Screen TGT Ab (IGA) Problem List/Past Medical History Ongoing Cirrhosis Hepatic encephalopathy Historical No qualifying data Procedure/Surgical History No qualifying data available. Medications Inpatient Ativan, 1 mg= 1 tab(s), Oral, q30min, PRN Ativan, 1 mg= 0.5 mL, IV Push, q30min, PRN Ativan, 0.5 mg= 1 tab(s), Oral, q30min, PRN Ativan, 0.5 mg= 0.25 mL, IV Push, q30min, PRN busPIRone, 10 mg= 1 tab(s), Oral, TID citalopram, 40 mg= 1 tab(s), Oral, qDay DuoNeb, 3 mL, Inhalation, q4hRT, PRN folic acid, 1 mg= 1 tab(s), Oral, qDay folic acid lactulose, 20 gram(s)= 30 mL, Oral, q6h Lovenox, 40 mg= 0.4 mL, Subcutaneous, qDay melatonin, 3 mg= 1 tab(s), Oral, qHS, PRN oxyCODONE 5 mg oral tablet ( IMMEDIATE release ), 5 mg= 1 tab(s), Oral, q4h, PRN prazosin, 1 mg= 1 cap(s), Oral, 1hHS SEROquel, 50 mg= 1 tab(s), Oral, qHS Tigan, 200 mg= 2 mL, Intramuscular, q6h, PRN Vitamin B1 (thiamine), 100 mg= 1 tab(s), Oral, qDay Vitamin B1 (thiamine), 100 mg= 1 mL, IV Push, qDay Home busPIRone 10 mg oral tablet, 10 mg= 1 tab(s), Oral, TID citalopram 40 mg oral tablet, 40 mg= 1 tab(s), Oral, qDay cloNIDine 0.1 mg oral tablet, 0.01 mg, Oral, PRN prazosin 1 mg oral capsule, 1 mg, Oral, 1hHS SEROquel 50 mg oral tablet, 50 mg= 1 tab(s), Oral, qHS Allergies NKA Immunizations No qualifying data available. Digitally Signed by NIRALI OZUNA on 10/03/2022 12:46 PM Digitally Signed by NIRALI OZUNA on 10/03/2022 12:49 PM Digitally Signed by NIRALI OZUNA on 10/03/2022 01:06 [facility]12-10-2022 Gastroenterology Consult note Date of Service 10/03/2022 Reason for Consultation Decompensated cirrhosis, hepatic encephalopathy Referring Physician Dr. Perez History of Present Illness The patient is a 51-year-old female, who has a past medical history significant for probable cirrhosis likely secondary to alcohol versus other, HTN and likely underlying psych disease possibly depression/anxiety (per review of her home medications). Patient initially presented to [facility] in [facility] for further evaluation and treatment of shortness of breath, confusion and altered mentalstatus. Reportedly patient lives alone but was not acting quite right and had been noncompliant withmedications. On arrival to [facility] she was noted to have multiple lab abnormalities including hyperammonemia with ammonia level of 115. LFTs were also noted to be abnormal with T bili 0.7, AST 38, ALT 31, and alk phos 189. She was transferred to [facility] for further management. Noted to have lactic acidosis with initial lactic acid level of 3.0 but improved to 1.5 on recheck. Acetaminophen level <2.0. She was anemic with hemoglobin of 9.6 and MCV 74. Evidence of thrombocytopenia with platelet count of 99. CT head/brain showed no acute abnormalities. CT of abdomen pelvis was notable for a small, nodular appearing liver, per report consistent with underlying hepatocellular disease as well as splenomegaly and collateral vessels in the left upper quadrant, per report consistent with varices. We have been consulted to see the patient from a GI standpoint. She has a brother Vaibhav listed as a primary contact but no family is available at bedside. As above patient is confused and cannot provide much history. Therefore the majority of information obtained was from chart review and discussion with nursing staff. This afternoon patient was seen and examined resting in bed. She is awake, alert and oriented to person only. She cannot provide much history and does not reliably answer questions. She confirms a diagnosis of cirrhosis but cannot provide any details as regards to when this was diagnosed or the etiology. She does not believe she follows with a education trainer. Her endoscopy history is questionable. She has no known family history for GI disease or malignancies. She states that she has a currentsmoker and drinker. Transfer sheet from [facility] states that she has been sober for the past 8 months but this cannot be confirmed. Per discussion with nursing staff patient had a brown bowel movemen t. There is been no evidence of overt GI bleeding, no hematemesis, melena or hematochezia. Review of Systems 10 system review of systems was completed all pertinent positives were described above and are otherwise negative. Physical Exam Vitals and Measurements T: 37.1 C (Oral) TMIN: 37.0 C (Oral) TMAX: 37.1 C (Oral) HR: 92 RR: 18 BP: 128/87 SpO2: 99% HT: 165 cm WT: 120.6 kg BMI: 44.3 Weight Dosing Weight: 120.6 kg (10/03/22) General Appearance: Patient is alert, chronically ill-appearing, in no acute distress. Confused but cooperative. HEENT: Head is normocephalic and atraumatic. Conjunctivae are clear without exudates or hemorrhage sclera is nonicteric. Nasal mucosa is pink and moist. Oral mucosa is pink and moist. The pharynx is normal in appearance. Neck supple. Trachea midline. Cardiac: Heart rate and rhythm are normal. S1 and S2 are heard and are of normal intensity. Lungs: No signs of respiratory distress. Lung sounds are clear in all lobes bilaterally without rales, rhonchi, or wheezes. On room air Abdomen: Abdomen is soft, large, obese, symmetric and nontender without distention. There are no visible lesions or scars. Umbilicus is midline without herniation. Bowel sounds are present and active in all 4 quadrants. No masses, hepatomegaly or splenomegaly are noted. Rectal: Normal rectal sphincter tone. No external masses or lesions. Amount of light brown stool noted in rectal vault with LIV. Extremities: 1-2+ edema noted of bilateral lower extremities. Neurological: The patient is awake, alert and oriented x1. Confused and poor historian. Asterisks noted on exam. Skin: Skin is warm and dry. Lab Results No 36 Hour Lab Data Assessment/Plan 1. Cirrhosis 2. Hepatic encephalopathy We have been consulted to see the patient for decompensated cirrhosis of unknown etiology and hepatic encephalopathy in the setting of altered mental status, confusion and hyperammonemia of [address] scan of abdomen pelvis at [facility] was notable for small, nodular appearing liver, splenomegaly and collateral vessels in the left upper abdominal quadrant, prorated report consistent with varices. Cirrhosis has also been complicated by thrombocytopenia with a platelet count of 99 and evidence of portal hypertension with splenomegaly and reports of varices on CT. Etiology of cirrhosis is unknown but suspect this is secondary to alcohol abuse. Patient has reported history of alcoholism, reportedly she has been sober for 8 months but this is unknown and she cannot provide any history. Reason for decompensation remains on known. Patient is anemic with hemoglobin of 9.6, MCV 74 but has no evidence of overt GI bleeding. There is been no hematemesis, melena hematochezia. LIV notable for brown stool. Recent alcohol use is unknown, she lives alone and question if reported sobriety is accurate. No evidence of ascites or free fluid on abdominal imaging. Possible thatdecompensation may be secondary to advancement of liver disease versus underlying infectious process versus noncompliance with medications. Patient is currently afebrile and on room air but she is mildly tachycardic with heart rate in the low 100s but otherwise hemodynamically stable. We will initiate complete serologic liver work-up to rule out any autoimmune, hereditary and viral liver etiologies. We will check AFP. We will check PT/INR so we can calculate a meld score. Check B12 and folate. Repeat CBC and CMP in the a.m. Evaluation for infectious process per primary team. Discussed with hospitalist after Dr. Perez. Urinalysis has been ordered. Continue with lactulose for treatment of HE. Titrate to goal of 3-4 bowel movements per day. Agree with CIWA protocol per primary team. At some point patient will need nonemergent EGD for screening of esophageal/gastric varices and/orpossible portal hypertensive gastropathy as well as a nonemergent colonoscopy further evaluation of her anemia. In the absence of overt GI bleeding this can likely be arranged in the outpatient setting. Obviously sobriety and abstinence from alcohol will be sent for this patient going forward in orderto reduce her risk of morbidity, or tolerating complications of alcoholic liver disease. Thank you for this consult. We will continue to closely follow with you. Please call with questions. Refer to Dr. Young's addendum turnover further recommendations. Orders: a-1 Antitrypsin Acute Hepatitis Panel AFP tumor marker Ammonia Level Antinuclear Antibody Screen, Serum Ceruloplasmin Ferritin IgA Iron Studies Mitochondrial Antibody Prothrombin Time - Panel Smooth Muscle Antibody Screen TGT Ab (IGA) Problem List/Past Medical History Ongoing Cirrhosis Hepatic encephalopathy Historical No qualifying data Procedure/Surgical History No qualifying data available. Medications Inpatient Ativan, 1 mg= 1 tab(s), Oral, q30min, PRN Ativan, 1 mg= 0.5 mL, IV Push, q30min, PRN Ativan, 0.5 mg= 1 tab(s), Oral, q30min, PRN Ativan, 0.5 mg= 0.25 mL, IV Push, q30min, PRN busPIRone, 10 mg= 1 tab(s), Oral, TID citalopram, 40 mg= 1 tab(s), Oral, qDay DuoNeb, 3 mL, Inhalation, q4hRT, PRN folic acid, 1 mg= 1 tab(s), Oral, qDay folic acid lactulose, 20 gram(s)= 30 mL, Oral, q6h Lovenox, 40 mg= 0.4 mL, Subcutaneous, qDay melatonin, 3 mg= 1 tab(s), Oral, qHS, PRN oxyCODONE 5 mg oral tablet ( IMMEDIATE release ), 5 mg= 1 tab(s), Oral, q4h, PRN prazosin, 1 mg= 1 cap(s), Oral, 1hHS SEROquel, 50 mg= 1 tab(s), Oral, qHS Tigan, 200 mg= 2 mL, Intramuscular, q6h, PRN Vitamin B1 (thiamine), 100 mg= 1 tab(s), Oral, qDay Vitamin B1 (thiamine), 100 mg= 1 mL, IV Push, qDay Home busPIRone 10 mg oral tablet, 10 mg= 1 tab(s), Oral, TID citalopram 40 mg oral tablet, 40 mg= 1 tab(s), Oral, qDay cloNIDine 0.1 mg oral tablet, 0.01 mg, Oral, PRN prazosin 1 mg oral capsule, 1 mg, Oral, 1hHS SEROquel 50 mg oral tablet, 50 mg= 1 tab(s), Oral, qHS Allergies NKA Immunizations No qualifying data available. Digitally Signed by NIRALI OZUNA on 10/03/2022 12:46 PM Digitally Signed by NIRALI OZUNA on 10/03/2022 12:49 PM Digitally Signed by NIRALI OZUNA on 10/03/2022 01:06 [facility]12-10-2022 History and physical note Date of Service 10/03/22 Chief Complaint Altered mental status History of Present Illness 51-year-old lady past medical history of alcohol abuse, hypertension, depression anxiety, bipolar psychosis presents due to altered mental status from [facility]. Per family she has not been taking her medications for months and also has been confused. CT head was negative for any acute findings. CT abdomen was obtained which showed nodular surface contour of the liver consistent with hepatocellular disease cholecystectomy clips in the right upper quadrant enlarged spleen 17.8 cm in length also collateral vessels noted in the left upper quadrant and anterior abdomen consistent with varices ammonia level of 115 lactic acid of 3.0 she was given lactulose. Lactic acid came down to 1.5. EKG sinus bradycardia QTC 485. White count 4.1 hemoglobin 9.6, platelets 99,000 Tylenol level 2.0, alcohol level of 3, proBNP 19 troponin 6.5, sodium 145, potassium 3.5, chloride 113, CO2 23.3, BUN 10, creatinine 0.80, AST 38 alk phos 190, ALT 31, total bilirubin 0.7, albumin 3.3, total protein 6.9. She was transferred here given concern she require GI evaluation. Review of Systems Unable to obtain due to her mental status Physical Exam Vitals and Measurements T: 37.0 C (Oral) HR: 102 RR: 18 BP: 118/67 SpO2: 100% HT: 165 cm WT: 120.6 kg BMI: 44.3 Weight Dosing Weight: 120.6 kg (10/03/22) General- in no acute distress, alert Cardiac- Normal S1 S2, with no murmur rubs or gallops, no edema HEENT- PERRLA, eyes- sclera nonicteric, oral mucosa moist Lungs- Clear to auscultation bilaterally Abdomen- Nontender to palpation but distended, positive bowel sounds Neurology- No focal neuro deficit, follows command Skin- no rash Psychiatry- oriented to person only Lab Results No 36 Hour Lab Data Assessment/Plan Orders: albuterol-ipratropium, Start: 10/03/22 11:35:00 EST, Dose = 3 mL, Soln, Inhalation, q4hRT, PRN, Shortness of breath or wheezing, 10/03/22 11:35:00 EST busPIRone, Start: 10/03/22 12:09:00 EST, Dose = 10 mg, = 1 tab(s), Oral, TID, 10/03/22 12:09:00 EST citalopram, Start: 10/03/22 12:09:00 EST, Dose = 40 mg, = 1 tab(s), Oral, qDay, 10/03/22 12:09:00 EST enoxaparin, Start: 10/03/22 11:39:00 EST, Dose = 40 mg, = 0.4 mL, Subcutaneous, qDay, 0, 10/03/22 11:35:00 EST folic acid, Start: 10/03/22 12:09:00 EST, Dose = 1 mg, = 1 tab(s), Oral, qDay, 3 dose(s), Stop: 10/05/22 9:00:00 EST, 10/03/22 12:09:00 EST folic acid, Start: 10/03/22 12:09:00 EST, Dose = 1 mg, IV Piggyback, qDay, 3 dose(s), Stop: :00:00 EST, Infuse over: 30 minute(s), 10/03/22 12:09:00 EST lactulose, Start: 10/03/22 12:00:00 EST, Dose = 20 gram(s), = 30 mL, Oral, q6h, 10/03/22 11:35:00 EST LORazepam, Start: 10/03/22 12:09:00 EST, Dose = 1 mg, = 1 tab(s), Oral, q30min, PRN, for Alcohol Withdrawal Score of 6-7, 10/03/22 12:09:00 EST LORazepam, Start: 10/03/22 12:09:00 EST, Dose = 1 mg, = 0.5 mL, IV Push, q30min, PRN, for Alcohol Withdrawal Score of 6-7, 10/03/22 12:09:00 EST LORazepam, Start: 10/03/22 12:09:00 EST, Dose = 0.5 mg, = 1 tab(s), Oral, q30min, PRN, for Alcohol Withdrawal Score of 3-5, 10/03/22 12:09:00 EST LORazepam, Start: 10/03/22 12:09:00 EST, Dose = 0.5 mg, = 0.25 mL, IV Push, q30min, PRN, for AlcoholWithdrawal Score of 3-5, 10/03/22 12:09:00 EST melatonin, Start: 10/03/22 11:35:00 EST, Dose = 3 mg, = 1 tab(s), Oral, qHS, PRN, Sleep, 10/03/22 11:35:00 EST oxyCODONE, Start: 10/03/22 11:35:00 EST, Dose = 5 mg, = 1 tab(s), Oral, q4h, PRN, Pain, scale 4-6, 10/03/22 11:35:00 EST prazosin, Start: 10/03/22 21:00:00 EST, Dose = 1 mg, = 1 cap(s), Oral, 1hHS, 10/03/22 12:09:00 EST QUEtiapine, Start: 10/03/22 22:00:00 EST, Dose = 50 mg, = 1 tab(s), Oral, qHS, 10/03/22 12:10:00 EST thiamine, Start: 10/03/22 12:09:00 EST, Dose = 100 mg, = 1 tab(s), Oral, qDay, 3 dose(s), Stop: 10/05/22 9:00:00 EST, 10/03/22 12:09:00 EST thiamine, Start: 10/03/22 12:09:00 EST, Dose = 100 mg, = 1 mL, IV Push, qDay, 3 dose(s), Stop: 10/05/22 9:00:00 EST, 10/03/22 12:09:00 EST trimethobenzamide, Start: 10/03/22 12:08:00 EST, Dose = 200 mg, = 2 mL, Intramuscular, q6h, PRN, Nausea/Vomiting, 10/03/22 12:08:00 EST Acute Hepatitis Panel Admit to Inpatient Alcohol Withdrawal Protocol - stepdown Alcohol Withdrawal Severity Score Alcohol Withdrawal Severity Score Ambulate Ammonia Level Blood Glucose Call Parameter Blood Glucose Call Parameter Blood Glucose Monitoring Bedside PRN Call Parameters Call Parameters Hot Roll Laminator Code Status Communication Order (continuous) Communication Order (continuous) Communication Order (continuous) Communication Order (scheduled) Communication Order (scheduled) Complete Blood Count Complete Blood Count Complete Metabolic Panel Complete Metabolic Panel Consult to Physician Diet Order Intake and Output IV Catheter Insertion/Care Lactic Acid Magnesium Level Notify Provider NPO after Midnight Phosphorus Level Prn Adapter Pulse Oximeter - Continuous Pulse Oximeter - Intermittent ROUTINE EMERGENCY TREATMENT - Full Code Seizure Precautions Telemetry Monitoring Urinalysis Urine Culture US Abdomen/Elastography/Doppler Abdomen Vital Signs Assessment 1. Hepatic encephalopathy 2. Lactic acidosis 3. Alcohol abuse with concern for withdrawal 4. Other medical history including hypertension, depression anxiety, bipolar psychosis Plan 1. Continue lactulose 20 g every 6h. Ultrasound abdomen with Doppler. Hepatitis panel. Consult GI. She was slightly tachycardic on presentation and also at [facility] in the 110s. Presenting here at102. She is unable to tell me the last time she had a drink. For now we will monitor on alcohol withdrawal protocol this can be discontinued in the next 48 hours if no evidence of withdrawal. DVT prophylaxis. Concern the patient's underlying psychiatric history might be contributing to her symptoms she was somewhat apathetic given her confusion to answer any questions. If no overt improvement can consider psychiatry consultation. Monitor QTC closely given underlying medication with Seroquel. EKG in the morning. Hold off on IV hydration for now as she is able to tolerate oral intake. UA and culture. This document was transcribed using a voice recognition software and may contain typographical errors. Problem List/Past Medical History Hypertension Depression/Anxiety Alcohol use Bipolar Procedure/Surgical History No qualifying data available. Medications Home Medications (5) Active busPIRone 10 mg oral tablet 10 mg = 1 tab(s), Oral, TID citalopram 40 mg oral tablet 40 mg = 1 tab(s), Oral, qDay cloNIDine 0.1 mg oral tablet 0.01 mg, PRN, Oral prazosin 1 mg oral capsule 1 mg, Oral, 1hHS SEROquel 50 mg oral tablet 50 mg = 1 tab(s), Oral, qHS Allergies NKA Social History Unable to obtain due to her mental status Family History Unable to obtain due to mental status Immunizations No qualifying data available. Code Status Code Status - Ordered -- 10/03/22 11:35:00 EST, Full Code, Constant Order Digitally Signed by JALEESA PEREZ MD on 10/03/2022 12:22 [facility]10-18-2022 Hospital Discharge instructions Discharge InstructionsDonte Caruso MD - 08/11/2022 12:02 PM EDT Strep swab was negative; Would get covid testing' Follow with your doctor AttachmentsThe following attachments cannot be sent through Care Everywhere.Sore Throat (Romanian)documented in this encounterSUMMA Work Phone: [phone] NoteHNO ID: [id number] Author: Priya David Service: Pharmacy Author Type: ? Type: Plan of Care Filed: 06/15/2022 2:08 PM Note Text: PHARMACY BEDSIDE DELIVERY SERVICE Patient Name: Ever Mckeon The marked outpatient medications were Filled at: [place] and delivered to the patient's bedside to patient Medication List START taking these medications lactulose 10 gram/15 mL solution Commonly known as: DUPHALAC, CONSTULOSE Take 30 mL by mouth three times daily. CONTINUE taking these medications buPROPion XL 150 mg 24 hr tablet Commonly known as: WELLBUTRIN XL busPIRone 10 mg tablet Commonly known as: BUSPAR CeleXA 40 mg tablet Generic drug: citalopram FLONASE NASAL loratadine 10 mg tablet Commonly known as: CLARITIN prazosin 1 mg Cap Commonly known as: MINIPRESS REMERON 15 mg tablet Generic drug: mirtazapine You might also be taking other medications not listed above. If you have questions about any of your other medications, talk to the person who prescribed them or your Primary Care Provider. STOP taking these medications aspirin 325 mg tablet diclofenac 1 % topical gel Commonly known as: VOLTAREN nabumetone 500 mg tablet Commonly known as: RELAFEN naproxen 500 mg tablet Commonly known as: NAPROSYN Priya Frankie PAGER: [phone] June 15, 2022 2:07 [facility]08-22-2022 NoteHNO ID: [id number] Author: Emmett Meadows RPh Service: Pharmacy Author Type: Pharmacist Type: Plan of Care Filed: 06/15/2022 12:50 PM Note Text: PHARMACY MEDICATION REVIEW Patient Name: Ever Mckeon : 1970 The following medications were updated within the [employer]ING [employer]NAGER medication list: Medications ADDED to [employer]ING [employer]AMS MANAGER medication list None Medications CHANGED on [employer]ING [employer]GRAMS MANAGER medication list None Medications REMOVED from [employer] MANAGER medication list Aspirin Additional comments: Patient states not taking aspirin any longer, stopped a while ago Patient states has not yet picked up her prescription for voltaren gel but states going to use soon for knee pain States only took one dose of naproxen prior to coming into the hospital States orthopaedic doctor was prescribing nabumetone soon but had not started taking it yet States was supposed to have an appointment the day she was admitted to the hospital to discuss her psych meds, states mirtazapine and buspirone do not seem to be helping her Due to liver cirrhosis team has decided to stop all oral NSAIDS The below information represents the best possible medication history: Yes Medication history completed by: Pharmacist: Emmett Meadows RPh Source of history: Patient: Reliability of source: Appears reliable, clearly identified: Medication name, Medication dose, and Medication frequency and [facility] records Medication nonadherence identified: No barriers noted Reconciliation completed: Yes Completed by: [facility] All MARKETING PROGRAMS MANAGER medications addressed by LIP Patient interested in Bedside Delivery Services or using CC OP Pharmacy at discharge? Yes. Discharge Pharmacy Updated Pref[facility] outpatient pharmacy: [id number] [place] [address] [facility] [address] [facility] [phone] [id number] [facility] Allergies: Vicodin [Hydrocodon* GI Upset Prior to Admission Medications Prescriptions Last Dose Informant Patient Reported? Taking? aspirin 325 mg tablet No No Sig: Take 1 tablet by mouth twice daily. buPROPion XL (WELLBUTRIN XL) 150 mg 24 hr tablet Yes Yes Sig: Take 150 mg by mouth once daily. busPIRone (BUSPAR) 10 mg tablet Yes Yes Sig: Take 10 mg by mouth three times daily as needed. citalopram (CELEXA) 40 mg tablet Yes Yes Sig: Take 40 mg by mouth once daily. diclofenac (VOLTAREN) 1 % topical gel Yes Yes Sig: Apply 2 g to affected area three times daily. For 10 days fluticasone propionate (FLONASE NASAL) Yes Yes Sig: Use in the nose once daily. loratadine (CLARITIN) 10 mg tablet Yes Yes Sig: Take 10 mg by mouth once daily. mirtazapine (REMERON) 15 mg tablet Yes Yes Sig: Take 15 mg by mouth daily at bedtime. nabumetone (RELAFEN) 500 mg tablet Yes No Sig: Take 500 mg by mouth twice daily. For 10 days with meals naproxen (NAPROSYN) 500 mg tablet Yes No Sig: Take 500 mg by mouth twice daily with meals. For 10 days last filled 06/05 prazosin (MINIPRESS) 1 mg cap Yes Yes Sig: Take 1 mg by mouth daily at bedtime. Facility-Administered Medications: None Emmett Meadows RPh 06/15/2022[facility]08-22-2022 NoteHNO ID: [id number] Author: Yeni Rose RN Service: Care Management Author Type: Registered Nurse Type: Care Mgt Initial Assessment Filed: 06/15/2022 11:17 AM Note Text: CARE MANAGEMENT: ASSESSMENT AND DISCHARGE PLAN SERVICE DATE: June 15, 2022 SERVICE TIME: 11:14 AM PRIMARY CARE PHYSICIAN: No primary care provider on file. Phone: None Primary Contact: Extended Emergency Contact Information Primary Emergency Contact: Lida Green Mobile Relation: Micro Computer Specialist ADMISSION STATUS: Inpatient Insurance Provider: [employer] MEDICAID NEEDS PRIOR TO DISCHARGE Needs Prior to Discharge: To Be Determined POTENTIAL TRANSITION PLANS Based on clinical judgement, Care Management will address the following needs: Social Patient's perception of need for this admission: confusion ADVANCE DIRECTIVES Current Advance Directive: Health Care Power of Java Lead Engineer In Chart: Yes Up To Date and Valid: Yes MS/BEHAVIOR Baseline Mental Status Prior to this Illness what was the patient's Baseline Mental Status?: Alert AND Oriented Prior to this illness, has anyone described the patient having any of the following behaviors?: Not Applicable Relationship of the informant to the patient:: Self READMISSION Last Discharge Date: 05/06/22 Is this Within the Past 30 days? 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 She cannot recall the name. but last saw her Wednesday or . 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 scores in the EMR?: No Any potential risks related to substance abuse and/or behavioral health?: Yes Situation: ETOH Based on clinical judgement, Care Management will address the following needs: Social CAREGIVER ASSESSMENT MEDICAL No medical discharge barriers identified at this time. No behavioral/cognitive discharge barriers identified at this time. No functional discharge barriers identified at this time. FREEDOM OF CHOICE EXPLAINED: Are you interested in bedside delivery of your medications? No Is Patient Psychosocially Complex?: Yes, refer to Social Work ASSESSMENT AND PLAN: Patient admitted with stroke like symptoms of confusion / disorientation. Her ammonia level was elevated. She is from a sober living home environment at this time. Call placed to Social Work for clarification of the HIPPA rights to the patient in regards to releasing information to the house wrecker . At this time, I do not anticipate any dc TCC needs. SIGNATURE: Yeni Rose RN PATIENT NAME: Ever Mckeon DATE: June 15, 2022 TIME: 11:14 AM CONTACT #: [phone] NoteHNO ID: [id number] Author: Robby Caldera MD Service: Hospital Medicine Author Type: Resident Type: Progress Notes Filed: 06/15/2022 2:36 PM Note Text: Attestation signed by Calvin Urban MD at 06/15/2022 6:53 PM Attending Note I personally saw and examined the patient on 06/15/22 . I reviewed the resident's note. I agree with the resident's assessment and plan unless otherwise noted. Signature: Calvin Urban MD Attending, Internal Medicine Date: 06/15/2022 Time: 6:53 PM [facility] PROGRESS NOTE Patient Name: Ever Mckeon Date: 06/15/2022 Admission for: altered mental status LOS:3 Subjective HPI Ms. 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, autoimmune hepatitis, and EtOH] - Former alcohol dependence [x 20 years, quit ] - Former tobacco dependence [0.5ppd x 15 years, quit 2017] - Former IVDU [methamphetamines, last use 05/2019] - Iron deficiency anemia - Hx of pararenal hematoma [04/2020, s/p IR-guided drain placement] - Diverticulosis - GERD - Moderate hiatal hernia - IBS [constipation] - Cholecystitis [s/p cholecystectomy 1998] - Obesity [BMI 39] - Osteoarthritis [left knee] - Seasonal allergies - Anxiety - Depression - Insomnia Prior ED visit for aphasia [at [facility] on 08/23/2021]: The patient presented with difficulty speaking and finding her words. NIH was 0 and neurological workup was unremarkable. The patient was given lorazepam with improvement of her symptoms, which were deemed likely secondary to anxiety / panic attack. She was discharged with a supply of lorazepam, which the patient says she was never actually able to use because it was stolen. Prior GI history [full imaging reports listed under Objective]: - Denies family history of colon or stomach cancer - Abdominal surgeries include x2 and cholecystectomy - EGD [06/08/2019] by Dr. Guerrier to evaluate for source of unexplained BARBARA showed a small hiatal hernia and mild gastritis. Biopsy showed reactive gastropathy and focal intestinal metaplasia. - Colonoscopy [06/08/2019] by Dr. Guerrier to evaluate for source of unexplained BARBARA revealed 4 polyps [transverse colon, cecum, rectum]. Biopsies returned as tubular adenomas. Recommended follow up colonoscopy in 3 years. - Paracentesis for perihepatic loculated ascites [05/22/2020]: Only drained 10cc fluid, no SBP. - EGD [07/18/2020] by Dr. 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 06/12/2022 for evaluation of stroke-like symptoms. The patient states that she lives in a rehab home, and last night her housemates were concerned that she was acting strangely. She reports staying up all night and that she was pouring milk into a bunch of different containers for no reason, but she did not realize it was strange at the time. She then reportedly became acutely altered the morning of presentation, with her last known normal being earlier in the morning at 8:15 AM. Her housemates were concerned that her speech was acutely impaired and felt she should go to the hospital. EMS endorsed aphasia on their evaluation. Of note, she was hypertensive to systolics of 180s en route to the hospital [with no history of hypertension]. ED Course [06/12/2022]: Upon arrival, the patient was mildly tachycardic up to 116, but otherwise hemodynamically stable and protecting her airway with adequate saturations on room air. The patient's rn field case manager was present, and reports that in the last 6 months that she has been working with the patient, the patient has not had any relapse of drug or alcohol use. Stroke Team was called for the patient's symptoms, and Dr. Benavidez [Neurology] came to bedside to evaluate the patient. Initial lab work showed microcytic anemia with hemoglobin 9.9, platelets 99, BG 114, BUN 15, creatinine 0.58, no significant electrolyte derangements, normal coags, HsTNT negative, albumin 3.8, total bilirubin 0.5, alk phos 224, AST 49, ALT 32, negative EtOH, negative salicylates, negative acetaminophen, negative urine tox screen, negative COVID, UA with nitrites + RBCs, and ammonia elevated at 107 (more content not included)...[facility]08-21-2022 NoteHNO ID: [id number] Author: Fabby Frances MD Service: Hospital Medicine Author Type: Resident Type: Progress Notes Filed: 06/14/2022 1:13 PM Note Text: Attestation signed by Calvin Urban MD at 06/14/2022 1:29 PM Attending Note I personally saw and examined the patient on 06/14/22. I reviewed the resident's note. I agree with the resident's assessment and plan unless otherwise noted. Normal gross neuro exam Stable for discharge from medical standpoint, will await PT/OT input Signature: Calvin Urban MD Attending, Internal Medicine Date: 06/14/2022 Time: 1:28 PM HOUSE MEDICINE SERVICE PROGRESS NOTE SERVICE DATE: June 14, 2022 SERVICE TIME: 8:20am NIGHT AND WEEKEND COVERAGE: From 6 AM to 5 PM: You may reach the House Medicine product management internship currently assigned to this patient by finding their pager number on the treatment team (they will be assigned as the product management internship or resident). It is the last four digits in the phone number beginning with ([phone]). We encourage the use of [employer] Secure Chat. SUBJECTIVE HPI: Ms. 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, autoimmune hepatitis, and EtOH] - Former alcohol dependence [x 20 years, quit ] - Former tobacco dependence [0.5ppd x 15 years, quit 2017] - Former IVDU [methamphetamines, last use 05/2019] - Iron deficiency anemia - Hx of pararenal hematoma [04/2020, s/p IR-guided drain placement] - Diverticulosis - GERD - Moderate hiatal hernia - IBS [constipation] - Cholecystitis [s/p cholecystectomy 1998] - Obesity [BMI 39] - Osteoarthritis [left knee] - Seasonal allergies - Anxiety - Depression - Insomnia Prior ED visit for aphasia [at [facility] on 08/23/2021]: The patient presented with difficulty speaking and finding her words. NIH was 0 and neurological workup was unremarkable. The patient was given lorazepam with improvement of her symptoms, which were deemed likely secondary to anxiety / panic attack. She was discharged with a supply of lorazepam, which the patient says she was never actually able to use because it was stolen. Prior GI history [full imaging reports listed under Objective]: - Denies family history of colon or stomach cancer - Abdominal surgeries include x2 and cholecystectomy - EGD [06/08/2019] by Dr. Guerrier to evaluate for source of unexplained BARBARA showed a small hiatal hernia and mild gastritis. Biopsy showed reactive gastropathy and focal intestinal metaplasia. - Colonoscopy [06/08/2019] by Dr. Guerrier to evaluate for source of unexplained BARBARA revealed 4 polyps [transverse colon, cecum, rectum]. Biopsies returned as tubular adenomas. Recommended follow up colonoscopy in 3 years. - Paracentesis for perihepatic loculated ascites [05/22/2020]: Only drained 10cc fluid, no SBP. - EGD [07/18/2020] by Dr. 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 06/12/2022 for evaluation of stroke-like symptoms. The patient states that she lives in a rehab home, and last night her housemates were concerned that she was acting strangely. She reports staying up all night and that she was pouring milk into a bunch of different containers for no reason, but she did not realize it was strange at the time. She then reportedly became acutely altered the morning of presentation, with her last known normal being earlier in the morning at 8:15 AM. Her housemates were concerned that her speech was acutely impaired and felt she should go to the hospital. EMS endorsed aphasia on their evaluation. Of note, she was hypertensive to systolics of 180s en route to the hospital [with no history of hypertension]. ED Course [06/12/2022]: Upon arrival, the patient was mildly tachycardic up to 116, but otherwise hemodynamically stable and protecting her airway with adequate saturations on room air. The patient's rn field case manager was present, and reports that in the last 6 months that she has been working with the patient, the patient has not had any relapse of drug or alcohol use. Stroke Team was called for the patient's symptoms, and Dr. Itrat [Neurology] came to bedside to (more content not included)...[facility]08-20-2022 NoteHNO ID: [id number] Author: Shravan Huitron MD Service: Critical Care Author Type: Resident Type: Progress Notes Filed: 06/13/2022 3:31 PM Note Text: Attestation signed by Calvin Urban MD at 06/13/2022 9:42 PM Attending Note I personally saw and examined the patient on 06/13/22 . I reviewed the resident's note. I agree with the resident's assessment and plan unless otherwise noted. Signature: Calvin Urban MD Attending, Internal Medicine Date: 06/13/2022 Time: 9:42 PM HOUSE MEDICINE SERVICE PROGRESS NOTE SERVICE DATE: June 13, 2022 SERVICE TIME: 8:20am NIGHT AND WEEKEND COVERAGE: From 6 AM to 5 PM: You may reach the House Medicine product management internship currently assigned to this patient by finding their pager number on the treatment team (they will be assigned as the product management internship or resident). It is the last four digits in the phone number beginning with ([phone]). We encourage the use of Look[employer] Secure Chat. SUBJECTIVE HPI: Ms. 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, autoimmune hepatitis, and EtOH] - Former alcohol dependence [x 20 years, quit ] - Former tobacco dependence [0.5ppd x 15 years, quit 2017] - Former IVDU [methamphetamines, last use 05/2019] - Iron deficiency anemia - Hx of pararenal hematoma [04/2020, s/p IR-guided drain placement] - Diverticulosis - GERD - Moderate hiatal hernia - IBS [constipation] - Cholecystitis [s/p cholecystectomy 1998] - Obesity [BMI 39] - Osteoarthritis [left knee] - Seasonal allergies - Anxiety - Depression - Insomnia Prior ED visit for aphasia [at [facility] on 08/23/2021]: The patient presented with difficulty speaking and finding her words. NIH was 0 and neurological workup was unremarkable. The patient was given lorazepam with improvement of her symptoms, which were deemed likely secondary to anxiety / panic attack. She was discharged with a supply of lorazepam, which the patient says she was never actually able to use because it was stolen. Prior GI history [full imaging reports listed under Objective]: - Denies family history of colon or stomach cancer - Abdominal surgeries include x2 and cholecystectomy - EGD [06/08/2019] by Dr. Guerrier to evaluate for source of unexplained BARBARA showed a small hiatal hernia and mild gastritis. Biopsy showed reactive gastropathy and focal intestinal metaplasia. - Colonoscopy [06/08/2019] by Dr. Guerrier to evaluate for source of unexplained BARBARA revealed 4 polyps [transverse colon, cecum, rectum]. Biopsies returned as tubular adenomas. Recommended follow up colonoscopy in 3 years. - Paracentesis for perihepatic loculated ascites [05/22/2020]: Only drained 10cc fluid, no SBP. - EGD [07/18/2020] by Dr. 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 06/12/2022 for evaluation of stroke-like symptoms. The patient states that she lives in a rehab home, and last night her housemates were concerned that she was acting strangely. She reports staying up all night and that she was pouring milk into a bunch of different containers for no reason, but she did not realize it was strange at the time. She then reportedly became acutely altered the morning of presentation, with her last known normal being earlier in the morning at 8:15 AM. Her housemates were concerned that her speech was acutely impaired and felt she should go to the hospital. EMS endorsed aphasia on their evaluation. Of note, she was hypertensive to systolics of 180s en route to the hospital [with no history of hypertension]. ED Course [06/12/2022]: Upon arrival, the patient was mildly tachycardic up to 116, but otherwise hemodynamically stable and protecting her airway with adequate saturations on room air. The patient's rn field case manager was present, and reports that in the last 6 months that she has been working with the patient, the patient has not had any relapse of drug or alcohol use. Stroke Team was called for the patient's symptoms, and Dr. Benavidez [Neurology] came to bedside to evaluate the patient. Initial lab work showed microcytic anemia with hemoglobin 9.9, platelets 99, (more content not included)...[facility]08-19-2022 History of Past illness Narrative Problem Noted Date Resolved Date Encephalopathy acute 06/12/2022 06/15/2022 documented as of this encounter (statuses as of 11/10/2022)[facility] 06-12-2022 History of Past illness Narrative Problem Noted Date Resolved Date Encephalopathy acute 06/12/2022 06/15/2022 documented as of this encounter (statuses as of 11/16/2022)[facility] 06-12-2022 NoteHNO ID: [id number] Author: Ivonne Montoya RPh Service: Pharmacy Author Type: Pharmacist Type: Progress Notes Filed: 06/12/2022 10:44 AM Note Text: PHARMACY ACUTE STROKE RESPONSE Patient Name: Ever Mckeon Allergies: ALLERGIES Allergen Reactions Vicodin [Hydrocodon* GI Upset Pharmacy participated in multidisciplinary team bedside response for a potential acute stroke in the emergency department. Any identified issues relating to medication therapy have been discussed directly with the physician(s) currently providing care for this patient. No TNKase Signature: Aurora Montoya RPh Pager/Phone: [phone] Date of Service: 06/12/2022 Time of Service: 10:41 [facility]07-13-2022 NoteCOVID 19 RESULT: SARS-CoV-2 (Agent of COVID-19) Not Detected by RT-PCR or equivalent method. This test has been authorized by FDA under an Emergency Use Authorization (EUA). INFLUENZA A PCR: Negative for Influenza A by RT-PCR INFLUENZA B PCR: Negative for Influenza B by RT-PCR RSV PCR: Negative for Respiratory Syncytial Virus (RSV) by PCRStephens Memorial HospitalComment on above:Performed By: #### [id number] ####[facility]ORATORYCLIA [id number] [place] [address] [place] AMER[place]AEvaluation note Diagnosis Anxiety state- Primary Anxiety state, unspecified Shortness of breath Shaking Abnormal involuntary movements documented in this [facility] Work Phone: Evaluation note Diagnosis Bronchitis- Primary Bronchitis, not specified as acute or ch ronic Throat pain documented in this [facility] Work Phone: Hospital course NarrativeNo data available for this [facility] Discharge instructionsAttachmentsThe following attachments cannot be sent through Care Everywhere.Anxiety Disorder (Romanian) Video: Anxiety: How to Change Anxious Thoughts (Romanian)Video: Anxiety: Treatment Options (Romanian)SOB (Shortness of Breath) (Romanian)documented in this [facility] Work Phone: Summary Purpose Family History No Family History Records FoundNo Family History Records FoundNo Family History Records FoundNo Family History Records FoundNo Family History Records FoundNo Family History Records FoundNo Family History Records FoundNo Family History Records FoundNo Family History Records FoundNo Family History Records FoundNo Family History Records Found Advance Directives No Advanced Directives Records Found Documents on File Type Date Recorded 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 Explanati on Advance Directives and Living Will Power of Java Lead Engineer Documents on File Type Date Recorded 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 Explanati on Advance Directives and Living Will Power of Java Lead Engineer Latest Code Status on File Code Status Date Activated Date Inactivated Comments Full Code 05/08/2020 5:40 AM Documents on File Type Date Recorded 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 Explanati on ACP-Advance Directive ACP-Power of Java Lead Engineer Latest Code Status on File Code Status Date Activated Date Inactivated Comments Full Code 05/16/2020 2:06 AM 05/23/2020 1:06 AM Full Code 05/08/2020 5:40 AM 05/11/2020 6:29 PM Latest Code Status on File Code Status Date Activated Date Inactivated Comments Full Code 07/18/2020 8:18 AM Full Code 05/16/2020 2:06 AM 05/23/2020 1:06 AM Latest Code Status on File Code Status Date Activated Date Inactivated Comments Full Code 07/18/2020 8:18 AM 07/18/2020 12:49 PM Latest Code Status on File Code Status Date Activated Date Inactivated Comments Full Code 05/16/2020 2:06 AM Documents on File Type Date Recorded 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 Avoid making critical decisions, signing legal documents, or performing any activity that requires alertness for the rest of the day. You may be bloated or have gas pains since air was introduced into the stomach for the procedure. You may need to pass the gas throughout the day. You may experience a mild sore throat. You may use an iffu-akn-[id number] chloraseptic spray, gargle with warm salt water, or use throat lozenges. Notify your physician if this feeling lasts more than 48 hours. Rest the remainder of the day. You may resume normal activity tomorrow. You may return to work tomorrow. DIET: You may resume a normal diet unless notified or recommended by your physician. You may be eager to eat a large meal after fasting, but it is a good idea to start with light meals and ease into solid foods the first day. (*) If your stomach is upset, try clear liquids and bland, low-fat foods like plain toast or rice. Drink plenty of fluids for the first 24 hours (unless your physician states otherwise). MEDICATION: Resume your normal home medications unless notified or recommended by your physician. If you take blood thinners (such as Coumadin, Eliquis, Plavix, Aspirin, etc.) or anti-inflammatory medications (Advil, Motrin, Aleve, etc.), ask your physician when you may resume these medications. FOLLOW-UP APPOINTMENT: Follow up with or call your physician as needed. When to call for help: Call your doctor IMMEDIATELY or seek medical care if you experience: ? Severe pain or vomiting ? Coughing up more than a teaspoon of blood ? You pass a large amount of tar-like stools ? Your belly is swollen and firm with severe pain ? A fever greater than 101 degrees ? Redness or swelling of arm from the IV site for more than 48 hours ? Sudden onset of chest pain or shortness of breath ? If you become extremely dizzy or pass out (lose consciousness) IF YOU ARE UNABLE TO REACH YOUR PHYSICIAN GO TO NEAREST EMERGENCY DEPARTMENT Colonoscopy: What to expect at home ACTIVITY: DO NOT DRIVE, OPERATE MACHINERY, OR DRINK ANY ALCOHOL TODAY. Avoid making critical decisions, signing legal documents, or performing any activity that requires alertness for the rest of the day. You may be bloated or have gas pains since air was introduced into the colon for the procedure. You may need to pass the gas throughout the day. You may experience a small amount of rectal bleeding; this can be normal after your colonoscopy. Notify your physician if the bleeding is enough to saturate your clothes. Rest the remainder of the day. You may resume normal activity tomorrow. You may return to work tomorrow. DIET: You may resume a normal diet unless notified or recommended by your physician. You may be eager to eat a large meal after fasting, but it is a good idea to start with light meals and ease into solid foods the first day. (*) If your stomach is upset, try clear liquids and bland, low-fat foods like plain toast or rice. Drink plenty of fluids for the first 24 hours (unless your physician states otherwise). MEDICATION: Resume your normal home medications unless notified or recommended by your physician. If you take blood thinners (such as Coumadin, Eliquis, Plavix, Aspirin, etc.) or anti-inflammatory medications (Advil, Motrin, Aleve, etc.), ask your physician when you may resume these medications. FOLLOW-UP APPOINTMENT: Follow up with or call your physician as needed. When to call for help: Call your doctor IMMEDIATELY or seek medical care if you experience: ? Severe pain or vomiting ? A large amount (filling the toilet) of maroon, bloody stools or tar-like stools ? Your belly is swollen and firm with severe pain ? A fever greater than 101 degrees ? Redness or swelling of arm from the IV site for more than 48 hours ? Sudden onset of chest pain or shortness of breath ? If you become extremely dizzy or pass out (lose consciousness) IF YOU ARE UNABLE TO REACH YOUR PHYSICIAN GO TO NEAREST EMERGENCY DEPARTMENT documented in this encounterInsAcacia Davison RN - 07/18/2020Upper GI Endoscopy: What to expect at home ACTIVITY: DO NOT DRIVE, OPERATE MACHINERY, OR DRINK ANY ALCOHOL TODAY. Avoid making critical decisions, signing legal documents, or performing any activity that requires alertness for the rest of the day. You may be bloated or have gas pains since air was introduced into the stomach for the procedure. You may need to pass the gas throughout the day. You may experience a mild sore throat. You may use an cnjg-amx-jdmnefu chloraseptic spray, gargle with warm salt water, or use throat lozenges. Notify your physician if this feeling lasts more than 48 hours. Rest the remainder of the day. You may resume normal activity tomorrow. You may return to work tomorrow. DIET: You may resume a normal diet unless notified or recommended by your physician. You may be eager to eat a large meal after fasting, but it is a good idea to start with light meals and ease into solid foods the first day. (*) If your stomach is upset, try clear liquids and bland, low-fat foods like plain toast or rice. Drink plenty of fluids for the first 24 hours (unless your physician states otherwise). MEDICATION: Resume your normal home medications unless notified or recommended by your physician. If you take blood thinners (such as Coumadin, Eliquis, Plavix, Aspirin, etc.) or anti-inflammatory medications (Advil, Motrin, Aleve, etc.), ask your physician when you may resume these medications. FOLLOW-UP APPOINTMENT: Follow up with or call your physician as needed. When to call for help: Call your doctor IMMEDIATELY or seek medical care if you experience: ? Severe pain or vomiting ? Coughing up more than a teaspoon of blood ? You pass a large amount of tar-like stools ? Your belly is swollen and firm with severe pain ? A fever greater than 101 degrees ? Redness or swelling of arm from the IV site for more than 48 hours ? Sudden onset of chest pain or shortness of breath ? If you become extremely dizzy or pass out (lose consciousness) IF YOU ARE UNABLE TO REACH YOUR PHYSICIAN GO TO NEAREST EMERGENCY DEPARTMENT documented in this encounterWinston Arana DO - 05/22/2020Please take medications as prescribed. Please follow up with your PCP within 1 week to discuss hospital stay. Repeat blood work in one week and follow up results with your PCP. Follow up with Gastroenterology for further cirrhosis work up. Please call your PCP or return to the ED with new or worsening symptoms. documented in this encounter Reason for Referral Status Reason Specialty Diagnoses / Referred By Referred To Procedures Contact Contact Pending Specialty Ophthalmology Diagnoses Blurry vision, bilateral Sveta [facility] [address] [place] [phone] [place], [place] Phone: [phone] Phone: Scheduling Instructions [facility] Ophthalmology - [address] [address] Status Reason Specialty Diagnoses / Referred By Referred To Procedures Contact Contact Open Specialty Gastroenterology Diagnoses Primary biliary cirrhosis (HCC) Sveta [facility] Gastro [facility] [address] [phone] Phone: Fax: Scheduling Instructions [facility] Gastroenterology [address] [place] [address], [address] [phone] Fax: Status Reason Specialty Diagnoses / Referred By Referred To Procedures Contact Contact Open Specialty Behavioral Diagnoses Anxiety state Chevy Whittington CM [facility] MD [facility] Required [address] [place] [phone] Phone: Fax: Fax: Scheduling Instructions [place] [facility] [address] [place] [address] Status Reason Specialty Diagnoses / Referred By Referred To Procedures Contact Contact Open Specialty Family Medicine Diagnoses Anxiety state Chevy Whittington [facility] / Internal MD [facility] Required Medicine [address] [facility] [address] [place] [phone] Phone: Fax: Scheduling Instructions [facility] Medicine [address] [place] [address] History of Present Illness Delia Hurd RN - 05/11/2020 4:03 PM EDTAVS, medication list, and follow up appointments reviewed with pt. Pt given printed papers for eye doctor, labs and GI doctor. Paper script for oxycodone given to pt. Pt aware that 2 medications need to be picked up at [facility]. . Sveta Leslie MD - 05/11/2020 11:13 AM EDT [facility] Progress Note Ever Dyson Linda : 1970(49 y.o.) Date: 05/11/20 Subjective: CC: Abd pain Feels like abd pain is improving, although later says pain meds are no longer working. Is having intermittent nausea. States vision is continuing to improve. Scheduled Meds: b [id number]-Y-V-zinc 1 tablet Oral Daily vitamin C 250 mg Oral BID buPROPion 300 mg Oral Daily citalopram 40 mg Oral Daily ferrous sulfate 325 mg Oral BID WC pantoprazole 40 mg Oral QAM AC rOPINIRole 0.25 mg Oral BID sodium chloride flush 10 mL Intravenous 2 times per day piperacillin-tazobactam 3.375 g Intravenous Q8H Continuous Infusions: PRN Meds:benzonatate, sodium chloride flush, acetaminophen OR acetaminophen, melatonin, labetalol, ondansetron, promethazine, oxyCODONE, diphenhydrAMINE Review of Systems Constitutional: Negative for chills, fatigue and fever. Eyes: Positive for visual disturbance (blurry; is improving). Respiratory: Negative for cough and shortness of breath. Cardiovascular: Negative for chest pain. Gastrointestinal: Positive for abdominal pain and nausea. Negative for vomiting. Genitourinary: Negative for dysuria. Psychiatric/Behavioral: Negative for agitation and confusion. Interval Pertinent History: Social History Tobacco Use Smoking status: Former Smoker Packs/day: 0.50 Years: 15.00 Pack years: 7.50 Start date: 10/25/1986 Last attempt to quit: 09/24/2018 Years since quittin.6 Smokeless tobacco: Never Used Tobacco comment: pt quit 09/2018, off and smoker Substance Use Topics Alcohol use: No Comment: Last Drinking 10/2017, hx EtoH for 20 years, attended AA program 2001 to 2013 Objective: Patient Vitals for the past 24 hrs: BP Temp Temp src Pulse Resp SpO2 Weight 05/11/20 0837 115/60 98.9 F (37.2 C) Oral 88 14 91 % 05/11/20 0310 105/69 99.6 F (37.6 C) Temporal 85 16 92 % 251 lb 6.4 oz (114 kg) 05/10/20 2306 102/64 99 F (37.2 C) Oral 90 14 95 % 05/10/20 1955 (!) 115/54 98.5 F (36.9 C) Oral 80 16 92 % 05/10/20 1455 (!) 97/48 99 F (37.2 C) Oral 86 16 92 % Average, Min, and Max for last 24 hours Vitals: TEMPERATURE: Temp Av F (37.2 C) Min: 98.5 F (36.9 C) Max: 99.6 F (37.6 C) RESPIRATIONS RANGE: Resp Av.2 Min: 14 Max: 16 PULSE RANGE: Pulse Av.8 Min: 80 Max: 90 BLOOD PRESSURE RANGE: Systolic (24hrs), Av , Min:97 , Max:115 ; Diastolic (24hrs), Av, Min:48, Max:69 PULSE OXIMETRY RANGE: SpO2 Av.4 % Min: 91 % Max: 95 % I/O last 3 completed shifts: In: 1864 [P.O.:1764; IV Piggyback:100] Out: - Physical Exam Constitutional: General: She is not in acute distress. Appearance: She is obese. She is not ill-appearing, toxic-appearing or diaphoretic. HENT: Head: Normocephalic and atraumatic. Cardiovascular: Rate and Rhythm: Normal rate and regular rhythm. Heart sounds: No murmur. No friction rub. No gallop. Pulmonary: Effort: Pulmonary effort is normal. No respiratory distress. Breath sounds: Normal breath sounds. No stridor. No wheezing, rhonchi or rales. Abdominal: General: Abdomen is flat. There is no distension. Palpations: Abdomen is soft. Tenderness: There is abdominal tenderness (RUQ). There is no guarding. Musculoskeletal: Right lower leg: No edema. Left lower leg: No edema. Neurological: Mental Status: She is alert. Lab Results Component Value Date WBC 8.8 05/11/2020 HGB 11.6 (L) 05/11/2020 HCT 34.2 (L) 05/11/2020 MCV 89.8 05/11/2020 PLT 245 05/11/2020 Lab Results Component Value Date NA 132 05/11/2020 K 3.7 05/11/2020 CL 96 05/11/2020 CO2 29 05/11/2020 BUN 8 05/11/2020 CREATININE 0.61 05/11/2020 GLUCOSE 115 05/11/2020 CALCIUM 9.0 05/11/2020 Lab Results Component Value Date LABA1C 5.4 01/18/2019 Additional results of the last 24 hours have been reviewed. Assessment and Plan: Active Problems: Renal hemorrhage, right Resolved Problems: * No resolved hospital problems. * R perinephric hematoma, abd infection -Presented w/ abd pain and fevers over the last 2 weeks that have progressively worsened. CT A/P showed perinephric hematoma/hemorrhage. Concern for infection given leukocytosis and fever. -WBC improving and BC x2 w/ NGTD. Getting zosyn. Despite this, has elevated ESR/CRP that are not improving. Also has an elevated procal. Will consult ID. -Pain management w/ PRN oxycodone. PRN zofran/phenergan Cirrhosis -CT showed cirrhotic morphology of liver. Pt states she hasn't drank alcohol in a year, but that this used to be an issue for her. States she follows w/ GI for this, however I only see one appt and it did not seem to address this. Will refer on discharge. Constipation -Hasn't had a BM since admission; ordered colace and senna. Blurry vision -Unclear if incidental. Will likely require f/u outpatient w/ ophthalmology unless symptoms worsen. Per pt blurry vision is improving. Hyponatremia -Likely from poor PO intake. Up to 132 today. Will continue trending. Depression, anxiety -Continuing celexa and wellbutrin. DVTProphylaxis: SCDs Disposition:await test results, await cognos consultant recommendations, await clinical improvement and anticipate discharge 1-2 days I spent over 51% of total time providing counseling or incoordination of care: > 35 minutes discussed with nurse, patient and family updated, I personally examined the patient and I personallyreviewed chart, data, labs radiology reports. Reviewed plan w/ pt and discussed GI hx. 6AM-6PM please page: 6PM-6AM please page: [facility] Internal Medicine Sveta Leslie MD - 05/10/2020 6:41 AM EDT [facility] Progress Note Ever Mckeon : 1970(49 y.o.) Date: 05/10/20 Subjective: CC: Abd pain Feels like her abd pain is improving, but now pain is along RUQ rather than RLQ. Able to urinate again w/o issue. Blurry vision improving. Scheduled Meds: b rtlfzox-K-Z-zinc 1 tablet Oral Daily vitamin C 250 mg Oral BID buPROPion 300 mg Oral Daily citalopram 40 mg Oral Daily ferrous sulfate 325 mg Oral BID WC pantoprazole 40 mg Oral QAM AC rOPINIRole 0.25 mg Oral BID sodium chloride flush 10 mL Intravenous 2 times per day piperacillin-tazobactam 3.375 g Intravenous Q8H sodium chloride flush 3 mL Intravenous Q8H Continuous Infusions: PRN Meds:benzonatate, sodium chloride flush, acetaminophen OR acetaminophen, melatonin, labetalol, ondansetron, promethazine, oxyCODONE, diphenhydrAMINE Review of Systems Constitutional: Negative for chills, fatigue and fever. Respiratory: Negative for cough and shortness of breath. Cardiovascular: Negative for chest pain. Gastrointestinal: Positive for abdominal pain and nausea. Negative for vomiting. Psychiatric/Behavioral: Negative for agitation and confusion. Interval Pertinent History: Social History Tobacco Use Smoking status: Former Smoker Packs/day: 0.50 Years: 15.00 Pack years: 7.50 Start date: 10/25/1986 Last attempt to quit: 09/24/2018 Years since quittin.6 Smokeless tobacco: Never Used Tobacco comment: pt quit 09/2018, off and smoker Substance Use Topics Alcohol use: No Comment: Last Drinking 10/2017, hx EtoH for 20 years, attended AA program 2001 to 2013 Objective: Patient Vitals for the past 24 hrs: BP Temp Temp src Pulse Resp SpO2 Weight 05/10/20 0536 245 lb 9.6 oz (111.4 kg) 05/10/20 0453 118/79 99 F (37.2 C) Oral 93 16 93 % 05/09/202009 133/67 99.5 F (37.5 C) Oral 93 20 95 % 05/09/20 0823 (!) 108/55 98.5 F (36.9 C) Oral 98 16 94 % Average, Min, and Max for last 24 hours Vitals: TEMPERATURE: Temp Av F (37.2 C) Min: 98.5 F (36.9 C) Max: 99.5 F (37.5 C) RESPIRATIONS RANGE: Resp Av.3 Min: 16 Max: 20 PULSE RANGE: Pulse Av.7 Min: 93 Max: 98 BLOOD PRESSURE RANGE: Systolic (24hrs), Av , Min:108 , Max:133 ; Diastolic (24hrs), Av, Min:55, Max:79 PULSE OXIMETRY RANGE: SpO2 Av % Min: 93 % Max: 95 % I/O last 3 completed shifts: In: 1030 [P.O.:980; IV Piggyback:50] Out: - Physical Exam Constitutional: General: She is not in acute distress. Appearance: She is obese. She is not ill-appearing, toxic-appearing or diaphoretic. HENT: Head: Normocephalic and atraumatic. Mouth/Throat: Pharynx: Oropharynx is clear. Eyes: Conjunctiva/sclera: Conjunctivae normal. Pupils: Pupils are equal, round, and reactive to light. Cardiovascular: Rate and Rhythm: Normal rate and regular rhythm. Heart sounds: No murmur. No friction rub. No gallop. Pulmonary: Effort: Pulmonary effort is normal. No respiratory distress. Breath sounds: Normal breath sounds. No stridor. No wheezing, rhonchi or rales. Abdominal: General: Abdomen is flat. Bowel sounds are normal. There is no distension. Palpations: Abdomen is soft. Tenderness: There is abdominal tenderness (RUQ). There is no right CVA tenderness, left CVA tenderness or guarding. Musculoskeletal: Right lower leg: No edema. Left lower leg: No edema. Skin: General: Skin is warm and dry. Neurological: Mental Status: She is alert. Lab Results Component Value Date WBC 13.0 (H) 05/09/2020 HGB 11.5 (L) 05/09/2020 HCT 33.9 (L) 05/09/2020 MCV 89.3 05/09/2020 PLT 264 05/09/2020 Lab Results Component Value Date NA 130 05/09/2020 K 3.2 05/09/2020 CL 95 05/09/2020 CO2 26 05/09/2020 BUN 11 05/09/2020 CREATININE 0.62 05/09/2020 GLUCOSE 127 05/09/2020 CALCIUM 8.9 05/09/2020 Lab Results Component Value Date LABA1C 5.4 01/18/2019 Additional results of the last 24 hours have been reviewed. Assessment and Plan: Active Problems: Renal hemorrhage, right Resolved Problems: * No resolved hospital problems. * R perinephric hematoma, abd infection -Presented w/ abd pain and fevers over the last 2 weeks that have progressively worsened. CT A/P showed perinephric hematoma/hemorrhage. Concern for infection given leukocytosis and fever. -Trending H+H q12. Is stable. -BC x2 w/ NGTD. WBC continuing to improve but inflammatory markers remain elevated; if improving tmrw then will discharge. Continuing zosyn. -Urology following, appreciate their help. No indication for drain placement at this time. -Repeat CT A/P showed mild increase in hematoma; urology updated. -Pain management w/ PRN oxycodone. PRN zofran/phenergan Cirrhosis -CT showed cirrhotic morphology of liver. Will discuss w/ pt. Will need outpatient GI f/u. Blurry vision -Unclear if incidental. Will likely require f/u outpatient w/ ophthalmology unless symptoms worsen. Per pt blurry vision is improving. Hyponatremia -Possibly related to diminished PO intake. Is 131 today, was 130 yday. Will continue to monitor trend. Depression, anxiety -Continuing celexa and wellbutrin. DVTProphylaxis: SCDs Disposition:await test results, await cognos consultant recommendations, await clinical improvement and anticipate discharge 1-2 days I spent over 51% of total time providing counseling or incoordination of care: > 35 minutes discussed with nurse, discussed with TCC/SW, patient and family updated, I personally examined the patient and I personally reviewed chart, data, labs radiology reports. Touched base w/ urology. 6AM-6PM please page: 6PM-6AM please page: [facility] Internal Medicine ineda Soto MD - 05/09/2020 7:51 AM EDT Department of Urology Daily Progress Note Patient Name: Ever Mckeon Date of : 1970 Admission Date: 05/07/2020 7:38 PM Today's Date: 05/09/2020 Subjective: Subjective fevers overnight. Still with RUQ pain. Feels run down. Appetite improving, tolerating diet. Current Medications: Current Facility-Administered Medications Medication Dose Route Frequency Provider Last Rate Last Dose potassium chloride (KLOR-CON) packet 40 mEq 40 mEq Oral Once Samer MD prateek Ricahrds yyppmvi-N-R-zinc (STRESS FORMULA W/ ZINC) 1 tablet 1 tablet Oral Daily M Daniella Raza MD 1 tablet at 05/08/20 09 vitamin C (ASCORBIC ACID) tablet 250 mg 250 mg Oral BID M Daniella Raza MD 250 mg at 05/08/202100 benzonatate (TESSALON) capsule 100 mg 100 mg Oral TID PRN Daniella Raza MD buPROPion (WELLBUTRIN XL) extended release tablet 300 mg 300 mg Oral Daily M Daniella Raza MD 300 mg at 05/08/20954 citalopram (CELEXA) tablet 40 mg 40 mg Oral Daily Daniella Raza MD 40 mg at 05/08/20 0955 ferrous sulfate (IRON 325) tablet 325 mg 325 mg Oral BID WC Sergio Raza MD 325 mg at 05/08/20 0925 pantoprazole (PROTONIX) tablet 40 mg 40 mg Oral QAM AC Daniella Raza MD 40 mg at 05/09/20 0605 rOPINIRole (REQUIP) tablet 0.25 mg 0.25 mg Oral BID M Daniella Raza MD 0.25 mg at 05/08/202100 sodium chloride flush 0.9 % injection 10 mL 10 mL Intravenous 2 times per day Sergio Raza MD10 mL at 05/08/20 1117 sodium chloride flush 0.9 % injection 10 mL 10 mL Intravenous PRN Sergio Raza MD acetaminophen (TYLENOL) tablet 650 mg 650 mg Oral Q6H PRN Sergio Raza MD Or acetaminophen (TYLENOL) suppository 650 mg 650 mg Rectal Q6H PRN M Daniella Raza MD piperacillin-tazobactam (ZOSYN) 3.375 g in dextrose 50 mL IVPB extended infusion (premix) 3.375 g Intravenous Q8H M Daniella Raza MD 12.5 mL/hr at 05/09/20 0605 3.375 g at 05/09/20 0605 melatonin tablet 3 mg 3 mg Oral Nightly PRN M Daniella Raza MD labetalol (NORMODYNE;TRANDATE) injection 10 mg 10 mg Intravenous Q4H PRN Daniella Raza MD ondansetron (ZOFRAN-ODT) disintegrating tablet 4 mg 4 mg Oral Q8H PRN M Daniella Raza MD promethazine (PHENERGAN) injection 12.5 mg 12.5 mg Intravenous Q6H PRN M Daniella Raza MD 12.5 mg at 05/08/20 1022 oxyCODONE (ROXICODONE) immediate release tablet 5 mg 5 mg Oral Q4H PRN Sveta Richards MD 5 mg at 05/09/20 0650 diphenhydrAMINE (BENADRYL) tablet 25 mg 25 mg Oral Q6H PRN Sveta Richards MD sodium chloride flush 0.9 % injection 3 mL 3 mL Intravenous Q8H Neil Sanchez MD 3 mL at 05/08/20 0009 Objective: Vitals: 05/08/20 1429 05/08/20 1942 05/08/20 2334 05/09/20 0255 BP: 119/63 121/67 (!) 109/57 Pulse: 94 87 96 Resp: 16 19 17 Temp: 100.3 F (37.9 C) 99.7 F (37.6 C) 100.3 F (37.9 C) TempSrc: Oral Oral Temporal SpO2: 92% 93% 95% Weight: Height: 5' 7 (1.702 m) Intake/Output: Intake/Output Summary (Last 24 hours) at 05/09/2020 0752 Last data filed at 05/09/2020 0614 Gross per 24 hour Intake 600 ml Output Net 600 ml Physical Exam: General: Alert, in no acute distress Head: Normocephalic, atraumatic Neck: supple, trachea is midline, no obvious masses Respiratory: normal effort, no audible wheezes Cardiovascular: regular pulse and no cyanosis Musculoskeletal: moving all extremities, normal tone Skin: warm and dry Psych: normal mood and affect, oriented Abdomen: soft, non distended, TTP in RUQ : No CVA TTP Lab Results Component Value Date WBC 13.0 (H) 05/09/2020 HGB 12.1 05/09/2020 HCT 35.9 05/09/2020 MCV 89.3 05/09/2020 PLT 264 05/09/2020 Lab Results Component Value Date NA 130 05/09/2020 K 3.2 05/09/2020 CL 95 05/09/2020 CO2 26 05/09/2020 BUN 11 05/09/2020 CREATININE 0.62 05/09/2020 GLUCOSE 127 05/09/2020 CALCIUM 8.9 05/09/2020 Urinalysis: Lab Results Component Value Date APPEARANCE Clear 05/07/2020 COLORU Yellow 05/07/2020 LABSPEC 1.010 05/07/2020 LABPH 6.5 05/07/2020 NITRU Negative 05/07/2020 GLUCOSEU Normal 05/07/2020 KETUA Negative 05/07/2020 UROBILINOGEN 12 05/07/2020 BILIRUBINUR Negative 05/07/2020 OCBU Negative 05/07/2020 Urine Culture: No results found for: LABURIN Radiology: CT Abdomen Pelvis W Contrast Patient Name: EVER MCKEON ---CT--- Exam Date/Time 05/07/2020 22:36:[address] Abdomen/Pelvis w/ IV Contrast (IV Onl Ordering Physician MD PETERS JAMES Accession Number [id number] CPT4 Codes 94400 (CT Abdomen/Pelvis w/ IV Contrast (IV Onl), Q9967 (CT ISOVUE 370MG/ML&[id number]&ML&1) Reason For Exam RUQ and RLQ pain Report CT ABDOMEN AND PELVIS WITH CONTRAST CLINICAL INDICATION: RUQ and RLQ pain TECHNIQUE: CT scan of the abdomen and pelvis, with IV contrast. Multiplanar reformations. COMPARISON: None. FINDINGS: Abdomen: Visualized lung bases grossly clear. Moderate hiatal hernia. Gallbladder surgically absent. Liver demonstrates nodular margins without focal abnormality. Spleen enlarged, and multiple varices are noted in the upper abdomen and also in the left pelvis. Pancreas without significant abnormality. Ovoid hypodensity in right renal midpole cortex measuring 2.5 x 3.8 cm, with perinephric hemorrhage/hematoma extending inferolaterally and measuring approximately 6 x 10 cm in maximal cross-sectional diameter. Adrenal glands without significant abnormality. Pelvis: Bowel grossly unremarkable. Appendix not confidently identified. Trace amount of nonspecific, free peritoneal fluid or possible blood in the pelvic cul-de-sac. No discrete abscess. Abdominal aorta is nonaneurysmal. Axial skeleton grossly intact. Small, fat-containing umbilical hernia, which also can obtain some collateral vessels or varices.. IMPRESSION: 1. Ovoid, hypodense and possible complex cystic focus in right kidney, with adjacent perinephric hemorrhage or hematoma. Follow-up to resolution suggested to exclude underlying neoplastic process. 2. Findings compatible with cirrhotic liver and sequelae of portal venous hypertension. 3. Hiatal hernia. Critical Test Results: Results were discussed with Dr. Sanchez in the ED on April, at approximately 2308 hours. Report Dictated on Workstation: [id number] --- Final --- Dictated: 05/07/2020 10:53 pm Dictating Physician: MD BEDOLLA WENDELL Signed Date and Time: 05/07/2020 11:08 pm Signed by: MD BEDOLLA WENDELL Transcribed Date and Time: 05/07/2020 11:03 XR CHEST PORTABLE Patient Name: EVER MCKEON ---Diagnostic Radiology--- Exam Date/Time 05/07/2020 21:27:00 EDT Exam CR Chest Portable Ordering Physician [id number] DUGGAN Accession Number [id number] CPT4 Codes 33562 () Reason For Exam sob, cough and fever Report Portable chest 05/07/2020: Clinical Information: Cough, fever. Findings: A single AP portable view of the chest was obtained at 2104 hours. No prior studies for comparison. The trachea is midline. The heart is not enlarged. No focal areas of consolidation or volume loss are seen. There are no pleural effusions. The pulmonary vasculature does not appear congested. The visualized bony structures are intact. Impression: No acute process. Report Dictated on --- Final --- Dictated: 05/07/2020 9:25 pm Dictating Physician: MD KIMBROUGH RISA Signed Date and Time: 05/07/2020 9:25 pm Signed by: MD KIMBROUGH RISA Transcribed Date and Time: 05/07/2020 9:25 Assessment: 49 y.o. female with 10x6 cm R perinephric fluid collection (differential hematoma vs phlegmon), sepsis - UA negative - BCx pending - WBC improving (13 from 17) - Persistent low grade temps (Tmax 100.3) Plan: - Continue IV Abx - Blood cultures pending - Trend fever curve, WBC - If no improvement, would plan to reimage and possibly place a drain with IR - Will follow Champ Norris MD 7:52 AM 05/09/2020 - Page front edger resident with questions. Discussed with the urology resident. I concur with the assessment and plan. Pineda Soto M.D. Sveta Leslie MD - 05/09/2020 6:29 AM EDT [facility] Progress Note Ever Mckeon : 1970(49 y.o.) Date: 05/09/20 Subjective: CC: abd pain Feels somewhat better in regards to pain, but notes that she is now having difficulty urinating. Specifically is having trouble initiating stream, and says this has happened the lats 4-6 times she tried to urinate. Also mentions that she has had blurry vision for the last week. Has never seen an director of patient financial services, but has reading glasses she uses as needed. Noted that her vision became blurry, but doesn't think itsworsened since it started. Denies eye pain, itching, discharge (occasional tearing, but no more thanbaseline), and photophobia. Mentions at first she felt like her eyes were both 'burning', but that it hasn't happened since it started. Scheduled Meds: b [id number] 1 tablet Oral Daily vitamin C 250 mg Oral BID buPROPion 300 mg Oral Daily citalopram 40 mg Oral Daily ferrous sulfate 325 mg Oral BID WC pantoprazole 40 mg Oral QAM AC rOPINIRole 0.25 mg Oral BID sodium chloride flush 10 mL Intravenous 2 times per day piperacillin-tazobactam 3.375 g Intravenous Q8H sodium chloride flush 3 mL Intravenous Q8H Continuous Infusions: PRN Meds:benzonatate, sodium chloride flush, acetaminophen OR acetaminophen, melatonin, labetalol, ondansetron, promethazine, oxyCODONE, diphenhydrAMINE Review of Systems Constitutional: Positive for fever. Negative for chills and fatigue. Eyes: Positive for visual disturbance (blurry). Negative for photophobia, pain, discharge, redness and itching. Respiratory: Negative for cough and shortness of breath. Cardiovascular: Negative for chest pain and leg swelling. Gastrointestinal: Positive for abdominal pain. Negative for nausea and vomiting. Genitourinary: Positive for decreased urine volume and difficulty urinating. Negative for dysuria, flank pain, frequency and urgency. Psychiatric/Behavioral: Negative for agitation and confusion. Interval Pertinent History: Social History Tobacco Use Smoking status: Former Smoker Packs/day: 0.50 Years: 15.00 Pack years: 7.50 Start date: 10/25/1986 Last attempt to quit: 09/24/2018 Years since quittin.6 Smokeless tobacco: Never Used Tobacco comment: pt quit 09/2018, off and smoker Substance Use Topics Alcohol use: No Comment: Last Drinking 10/2017, hx EtoH for 20 years, attended AA program 2001 to 2013 Objective: Patient Vitals for the past 24 hrs: BP Temp Temp src Pulse Resp SpO2 Height 05/09/20 0255 (!) 109/57 100.3 F (37.9 C) Temporal 96 17 95 % 05/08/20 2334 121/67 99.7 F (37.6 C) Oral 87 19 93 % 05/08/20 1942 119/63 100.3 F (37.9 C) Oral 94 16 92 % 05/08/20 1429 5' 7 (1.702 m) 05/08/20 1030 116/72 100.1 F (37.8 C) Oral 98 16 93 % 05/08/20 0806 (!) 140/61 100.1 F (37.8 C) Oral 99 16 95 % Average, Min, and Max for last 24 hours Vitals: TEMPERATURE: Temp Av.1 F (37.8 C) Min: 99.7 F (37.6 C) Max: 100.3 F (37.9 C) RESPIRATIONS RANGE: Resp Av.8 Min: 16 Max: 19 PULSE RANGE: Pulse Av.8 Min: 87 Max: 99 BLOOD PRESSURE RANGE: Systolic (24hrs), Av , Min:109 , Max:140 ; Diastolic (24hrs), Av, Min:57, Max:72 PULSE OXIMETRY RANGE: SpO2 Av.6 % Min: 92 % Max: 95 % I/O last 3 completed shifts: In: 1050 [IV Piggyback:1050] Out: - Physical Exam Constitutional: General: She is not in acute distress. Appearance: She is obese. She is not ill-appearing, toxic-appearing or diaphoretic. HENT: Head: Normocephalic and atraumatic. Mouth/Throat: Pharynx: Oropharynx is clear. Eyes: General: No scleral icterus. Right eye: No discharge. Left eye: No discharge. Extraocular Movements: Extraocular movements intact. Conjunctiva/sclera: Conjunctivae normal. Pupils: Pupils are equal, round, and reactive to light. Cardiovascular: Rate and Rhythm: Normal rate and regular rhythm. Heart sounds: No murmur. No friction rub. No gallop. Pulmonary: Effort: Pulmonary effort is normal. No respiratory distress. Breath sounds: Normal breath sounds. No stridor. No wheezing, rhonchi or rales. Abdominal: General: Abdomen is flat. Bowel sounds are normal. There is no distension. Palpations: Abdomen is soft. Tenderness: There is abdominal tenderness (RLQ). There is no right CVA tenderness, left CVA tenderness or guarding. Musculoskeletal: Right lower leg: No edema. Left lower leg: No edema. Skin: General: Skin is warm and dry. Neurological: Mental Status: She is alert. Lab Results Component Value Date WBC 13.0 (H) 05/09/2020 HGB 12.1 05/09/2020 HCT 35.9 05/09/2020 MCV 89.3 05/09/2020 PLT 264 05/09/2020 Lab Results Component Value Date NA 130 05/09/2020 K 3.2 05/09/2020 CL 95 05/09/2020 CO2 26 05/09/2020 BUN 11 05/09/2020 CREATININE 0.62 05/09/2020 GLUCOSE 127 05/09/2020 CALCIUM 8.9 05/09/2020 Lab Results Component Value Date LABA1C 5.4 01/18/2019 Additional results of the last 24 hours have been reviewed. Assessment and Plan: Active Problems: Renal hemorrhage, right Resolved Problems: * No resolved hospital problems. * R perinephric hematoma -Presented w/ abd pain and fevers over the last 2 weeks that have progressively worsened. -Found on CT A/P to have perinephric hematoma/hemorrhage. Hgb stable; will broaden H+H to q12 ratherthan q8. -Getting zosyn. BC x2 in process. Continuing to have fevers, however leukocytosis improving (17 ydayto 13 today and no bandemia today unlike yday). -BC x2 w/ NGTD. Will f/u w/ urology regarding drain placement. -Pain management w/ PRN oxycodone. PRN zofran/phenergan Blurry vision -Unclear if incidental. Will likely require f/u outpatient w/ ophthalmology unless symptoms worsen. Hyponatremia -Possibly related to diminished PO intake. Will monitor trend, but if it continues to drop then willstart workup. Depression, anxiety -Patient states she wasn't taking remeron; discontinuing but will continue celexa and wellbutrin. DVTProphylaxis: SCDs Disposition:await test results, await cognos consultant recommendations, await clinical improvement and anticipate discharge 2-3 days I spent over 51% of total time providing counseling or incoordination of care: > 35 minutes discussed with nurse, patient and family updated, I personally examined the patient and I personallyreviewed chart, data, labs radiology reports. Reviewed plan w/ patient. 6AM-6PM please page: 6PM-6AM please page: [facility] Internal Medicine Natalya Jorge MS, RD, LD - 05/08/2020 2:38 PM EDTComprehensive Nutrition Assessment Type and Reason for Visit: Initial Nutrition Recommendations/Plan: 1. Continue current General diet. 2. Monitor adequacy of PO for need to initiate ONS. 3. Please document % meal intakes under I/O flowsheet to better assess adequacy of PO. 4. Monitor nutrition status, intakes/tolerance, wt trends, labs, and fluid balance. RD will continueto follow. Nutrition Assessment: Pt admitted w/ worsening R sided abs pain/n/v, fevers, and flu-like symptoms for ~2 weeks; recently tested negative for COVID. CT A/P showing R sided perinephric hematoma possibly2/2 renal cyst. Pt was sleeping and did not wake upon RD entering room and name call. Recently advanced to solid foods; no intakes yet documented. 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 Hypoactive BS. No edema. Daren 18. Glucose 136, Na+ 132 Wounds: None Current Nutrition Therapies: DIET GENERAL; Anthropometric Measures: Height: 5' 7 (170.2 cm) Current Body Weight: 250 lb (113.4 kg) Usual Body Weight: 259 lb (117.5 kg)(per [facility] 06/08) [place] Body Weight: 135 lbs; 185.2 lbs BMI: 39.1 Adjusted Body Weight: ; No Adjustment BMI Categories: Obese Class 2 (BMI 35.0 -39.9) Nutrition Diagnosis: Predicted inadequate energy intake related to altered GI function, pain(n/v) as evidenced by poor intake prior to admission Nutrition Interventions: Food and/or Nutrient Delivery: Continue Current Diet Nutrition Education/Counseling: No recommendation at this time Coordination of Nutrition Care: Continued Inpatient Monitoring Goals: Pt to consume and tolerate >50% of meals Nutrition Monitoring and Evaluation: Food/Nutrient Intake Outcomes: Diet Advancement/Tolerance, Food and Nutrient Intake Physical Signs/Symptoms Outcomes: Biochemical Data, Nausea or Vomiting, Fluid Status or Edema, Skin,Weight, Nutrition Focused Physical Findings Contact: [phone] documented in this encounterSTierra Hutchinson DTR - 05/22/2020 7:50 AM EDT Nutrition update completed. Chart reviewed. Refer patient to the Dietitian. Daniella Patten DO - 05/21/2020 11:41 AM EDT [facility] - Infectious Diseases Attending Progress Note Subjective: Following for concern of infection; recent R hemorrhagic cyst rupture and subcapsular hepatic collection s/p drainage. Drain placed last week and so far all cultures negative. Interim events and notes reviewed.. Cultures so far negative and mental status much improved with lactulose. Objective: Vitals: BP (!) 113/52 Pulse 84 Temp 98.2 F (36.8 C) (Temporal) Resp 18 Ht 5' 7 (1.702 m) Wt 269 lb 12.8 oz (122.4 kg) LMP 07/25/2014 SpO2 92% BMI 42.26 kg/m Intake/Output Summary (Last 24 hours) at 05/21/2020 1141 Last data filed at 05/20/2020 1408 Gross per 24 hour Intake 120 ml Output Net 120 ml Physical Exam Constitutional: General: She is not in acute distress. Appearance: She is obese. HENT: Head: Normocephalic and atraumatic. Right Ear: External ear normal. Left Ear: External ear normal. Nose: Nose normal. Mouth/Throat: Mouth: Mucous membranes are moist. Eyes: Extraocular Movements: Extraocular movements intact. Conjunctiva/sclera: Conjunctivae normal. Pupils: Pupils are equal, round, and reactive to light. Neck: Musculoskeletal: Normal range of motion and neck supple. Cardiovascular: Rate and Rhythm: Normal rate and regular rhythm. Pulses: Normal pulses. Pulmonary: Effort: Pulmonary effort is normal. Abdominal: General: Bowel sounds are normal. There is no distension. Palpations: Abdomen is soft. Tenderness: There is abdominal tenderness (RUQ). Comments: Drain in place Musculoskeletal: Normal range of motion. Right lower leg: No edema. Left lower leg: No edema. Skin: General: Skin is warm and dry. Neurological: General: No focal deficit present. Mental Status: She is alert and oriented to person, place, and time. Mental status is at baseline. Cranial Nerves: Cranial nerves are intact. Motor: Weakness present. Comments: Psychiatric: Attention and Perception: She is attentive. Mood and Affect: Mood normal. Speech: Speech is not delayed. Behavior: Behavior normal. Behavior is cooperative. Cognition and Memory: Cognition is not impaired. Labs: Component Value Date/Time NA 133 (L) 05/21/2020 0406 K 3.4 (L) 05/21/2020 0406 CL 101 05/21/2020 0406 CO2 25 05/21/2020 0406 BUN 8 05/21/2020 0406 CREATININE 0.47 (L) 05/21/2020 0406 GLUCOSE 79 05/21/2020 0406 CALCIUM 8.2 (L) 05/21/2020 0406 PROT 6.3 05/21/2020 0406 LABALBU 2.5 (L) 05/21/2020 0406 LABALBU 3.6 02/15/2019 1015 BILITOT 1.0 05/21/2020 0406 ALKPHOS 124 05/21/2020 0406 AST 45 05/21/2020 0406 ALT 12 05/21/2020 0406 PROCAL 0.30 (A) 05/20/2020 0355 PROCAL 1.13 (A) 05/16/2020 0424 PROCAL 0.32 (A) 05/11/2020 0248 Component Value Date/Time WBC 8.2 05/21/2020 0406 WBC 4.2 (L) 02/15/2019 1015 HGB 10.6 (L) 05/21/2020 0406 HCT 31.1 (L) 05/21/2020 0406 PLT 177 05/21/2020 0406 GRANULOCYTES 66.5 05/20/2020 0355 LYMPHOPCT 15.4 (L) 05/20/2020 0355 MONOPCT 6 05/21/2020 0406 MONOPCT 12.4 02/15/2019 1015 LABEOS 1 05/21/2020 0406 BASOPCT 1 05/21/2020 0406 BASOPCT 1.1 02/15/2019 1015 NEUTROABS 6.5 05/21/2020 0406 NEUTROABS 2.2 02/15/2019 1015 Micro: Blood cultures: Lab Results Component Value Date BC No growth at 5 days. 05/15/2020 BC No growth at 5 days. 05/15/2020 BC No growth at 5 days. 05/08/2020 BC No growth at 5 days. 05/08/2020 BC No growth after 5 days of incubation. 02/15/201905/15 Urine culture: No growth (<1,000 CFU/ml) 05/15 Respiratory sputum cx pending 05/15 Strep pneumo antigen: Positive 05/15 Legionella antigen: Negative 05/15 UA: Negative 05/16 Respiratory Virus PCR: Negative Lines: PIV Radiography/Echo/Other: CT abdomen and pxablk-3-09-2020 05-19-2020 Antimicrobials, Start/End Dates: Zosyn 3.375 g IV q8h 05/15-05/20/2020 Impression: 1. Fever and leukocytosis 2. New subcapsular hepatic collection 3. R hemorrhagic renal cyst 4. Known biliary cirrhosis 5. Positive HBcAb (+), HBsAb (-), HBsAg (-), HCV (-) 6. Previous EtOH abuse sober x 1 year Plan: 1. No obvious infectious process 2. Observe off ABX 3. Care per primary Will sign-off please call with questions Pager: [phone] Winston Jacobson DO - 05/21/2020 9:55 AM EDT [facility] Progress Note Ever Mckeon : 1970(49 y.o.) Date: 05/21/20 Subjective: HPI Transition of care. Hospital course reviewed. Pt reports improvement in abdominal pain this morning. She reports at least 4 BM yesterday. She reports right sided pleuritic CP that started this AM. Denies CP at rest. Denies history of chest pain inpast. Denies SOB, abdominal pain, melena, hematochezia. Scheduled Meds: [START ON 05/22/2020] lactulose 10 g Oral Daily vitamin D 50,000 Units Oral Weekly acetaminophen 650 mg Oral 3 times per day buPROPion 300 mg Oral Daily citalopram 40 mg Oral Daily ferrous sulfate 325 mg Oral BID WC vitamin C 250 mg Oral BID pantoprazole 40 mg Oral QAM AC sodium chloride flush 10 mL Intravenous 2 times per day enoxaparin 40 mg Subcutaneous Daily ursodiol 300 mg Oral TID rOPINIRole 0.5 mg Oral QAM rOPINIRole 1 mg Oral Nightly sodium chloride flush 3 mL Intravenous Q8H Continuous Infusions: PRN Meds:oxyCODONE OR oxyCODONE, sodium chloride flush, docusate sodium, melatonin, HYDROmorphone, sodium chloride flush, polyethylene glycol, promethazine OR ondansetron Review of Systems Respiratory: Positive for cough. Negative for shortness of breath. Cardiovascular: Positive for chest pain and leg swelling. Gastrointestinal: Negative for abdominal distention, abdominal pain and constipation. Interval Pertinent History: Social History Tobacco Use Smoking status: Former Smoker Packs/day: 0.50 Years: 15.00 Pack years: 7.50 Start date: 10/25/1986 Last attempt to quit: 09/24/2018 Years since quittin.6 Smokeless tobacco: Never Used Tobacco comment: pt quit 09/2018, off and smoker Substance Use Topics Alcohol use: No Comment: Last Drinking 10/2017, hx EtoH for 20 years, attended AA program 2001 to 2013 Objective: Patient Vitals for the past 24 hrs: BP Temp Temp src Pulse Resp SpO2 Weight 05/21/20 0817 (!) 113/52 98.2 F (36.8 C) Temporal 84 18 92 % 05/21/20 0354 130/70 98.1 F (36.7 C) Temporal 96 20 93 % 269 lb 12.8 oz (122.4 kg) 05/20/20 2258 (!) 114/53 98 F (36.7 C) Temporal 85 20 90 % 05/20/201999 138/72 97.8 F (36.6 C) Temporal 95 20 93 % 05/20/20 1636 114/70 97.7 F (36.5 C) Temporal 88 18 93 % 05/20/20 1610 (!) 106/58 85 16 91 % 05/20/20 1605 92 % 05/20/20 1601 110/62 87 93 % 05/20/20 1548 111/65 89 18 94 % 05/20/20 1242 117/67 97.7 F (36.5 C) Temporal 84 20 90 % Average, Min, and Max for last 24 hours Vitals: TEMPERATURE: Temp Av.9 F (36.6 C) Min: 97.7 F (36.5 C) Max: 98.2 F (36.8 C) RESPIRATIONS RANGE: Resp Av.8 Min: 16 Max: 20 PULSE RANGE: Pulse Av.1 Min: 84 Max: 96 BLOOD PRESSURE RANGE: Systolic (24hrs), Av , Min:106 , Max:138 ; Diastolic (24hrs), Av, Min:52, Max:72 PULSE OXIMETRY RANGE: SpO2 Av.1 % Min: 90 % Max: 94 % I/O last 3 completed shifts: In: 120 [P.O.:120] Out: - Physical Exam Vitals signs and nursing note reviewed. Constitutional: Appearance: Normal appearance. She is not diaphoretic. HENT: Head: Normocephalic and atraumatic. Eyes: Conjunctiva/sclera: Conjunctivae normal. Cardiovascular: Rate and Rhythm: Normal rate and regular rhythm. Heart sounds: Murmur present. Comments: DP pulses palpable and symmetric Pulmonary: Effort: Pulmonary effort is normal. Breath sounds: No wheezing. Comments: Diminished breath sounds in right lung base Abdominal: General: There is no distension. Palpations: Abdomen is soft. Tenderness: There is no abdominal tenderness. There is no guarding or rebound. Comments: obese Musculoskeletal: General: No swelling. Right lower leg: Edema (2+ pitting) present. Left lower leg: Edema (2+ pitting edema ) present. Comments: Moving all extremities Skin: General: Skin is warm and dry. Neurological: General: No focal deficit present. Mental Status: She is alert. Comments: Speech appropriate, answering questions appropriately Psychiatric: Mood and Affect: Mood normal. Behavior: Behavior normal. Thought Content: Thought content normal. Lab Results Component Value Date WBC 8.2 05/21/2020 HGB 10.6 (L) 05/21/2020 HCT 31.1 (L) 05/21/2020 MCV 88.9 05/21/2020 PLT 177 05/21/2020 Lab Results Component Value Date NA 133 05/21/2020 K 3.4 05/21/2020 CL 101 05/21/2020 CO2 25 05/21/2020 BUN 8 05/21/2020 CREATININE 0.47 05/21/2020 GLUCOSE 79 05/21/2020 CALCIUM 8.2 05/21/2020 Lab Results Component Value Date LABA1C 5.4 01/18/2019 Additional results of the last 24 hours have been reviewed. Assessment and Plan: Active Problems: Kidney hematoma Sepsis (HCC) Pneumonia due to organism Resolved Problems: * No resolved hospital problems. * Sepsis- fever, leukocytosis, lactic acidosis on presentation New hepatic collection and R hemorrhagic renal cyst -Urology recommendations appreciated. Pending drain management. -ID recommendations appreciated. Blood culture and fluid cultures remain negative. Zosyn discontinued on 05/20/20 (completed four full days of abx). - GI recommendations appreciated. s/p US guided ascites sampling 05/20/20, fluid studies pending. Acute encephalopathy, improved - Likely metabolic vs med related -Continue lactulose and titrate PRN to average 2 BM daily Abdominal pain- likely d/t perihepatic fluid +constipation, resolved Biliary cirrhosis and liver cirrhosis with portal HTN -Previous work up from [facility] in 2002. Continue home ursodiol, after discussion with GI she will require full work up on outpatient basis. Pt understands and is agreeable to this. - Abdominal pain resolved following multiple BM. R basilar infiltrate with pleural effusion Pleuritis - Suspect effusion could be contributing to pleuritic CP. Troponin and EKG without acute changes. Lasix 20 mg IV ordered x1. Follow symptoms response. Mild Hypokalemia - Replete, monitor Prolonged QTc - Monitor Depression, anxiety -Continuing celexa and wellbutrin. Prior meth/ETOH abuse - Sober x1 yr DVTProphylaxis: lovenox 40 q 24hr - creatinine clearance >30 Disposition:await test results, await cognos consultant recommendations and await clinical improvement I spent over 51% of total time providing counseling or incoordination of care: > 35 minutes discussed with nurse, discussed with the patient and Sosa FLORES, I personally examined the patientand I personally reviewed chart, data, labs radiology reports 6AM-6PM please page: 6PM-6AM please page: [facility] Internal Medicine Sosa Noriega PA-C - 05/21/2020 8:23 AM EDT Department of Internal Medicine Gastroenterology Attending Progress Note SUBJECTIVE: GI following for abdominal pain and cirrhosis. Today, she is feeling much better. She had 5-6 bowel movements yesterday with a few more overnight. She denies melena, hematochezia, nausea, vomiting, dysphagia, or odynophagia. She is tolerating her diet today and eating more than she has been Medications Current Facility-Administered Medications: potassium chloride (KLOR-CON M) extended release tablet 40 mEq, 40 mEq, Oral, Once vitamin D (ERGOCALCIFEROL) capsule 50,000 Units, 50,000 Units, Oral, Weekly acetaminophen (TYLENOL) tablet 650 mg, 650 mg, Oral, 3 times per day oxyCODONE (ROXICODONE) immediate release tablet 5 mg, 5 mg, Oral, Q4H PRN OR oxyCODONE (ROXICODONE) immediate release tablet 10 mg, 10 mg, Oral, Q4H PRN lactulose (CHRONULAC) 10 GM/15ML solution 20 g, 20 g, Oral, BID sodium chloride flush 0.9 % injection 10 mL, 10 mL, Intravenous, PRN sennosides-docusate sodium (SENOKOT-S) 8.6-50 MG tablet 2 tablet, 2 tablet, Oral, Daily buPROPion (WELLBUTRIN XL) extended release tablet 300 mg, 300 mg, Oral, Daily citalopram (CELEXA) tablet 40 mg, 40 mg, Oral, Daily docusate sodium (COLACE) capsule 100 mg, 100 mg, Oral, BID PRN ferrous sulfate (IRON 325) tablet 325 mg, 325 mg, Oral, BID WC vitamin C (ASCORBIC ACID) tablet 250 mg, 250 mg, Oral, BID melatonin tablet 3 mg, 3 mg, Oral, Nightly PRN pantoprazole (PROTONIX) tablet 40 mg, 40 mg, Oral, QAM AC HYDROmorphone (DILAUDID) injection 0.5 mg, 0.5 mg, Intravenous, Q4H PRN sodium chloride flush 0.9 % injection 10 mL, 10 mL, Intravenous, 2 times per day sodium chloride flush 0.9 % injection 10 mL, 10 mL, Intravenous, PRN polyethylene glycol (GLYCOLAX) packet 17 g, 17 g, Oral, Daily PRN promethazine (PHENERGAN) tablet 12.5 mg, 12.5 mg, Oral, Q6H PRN OR ondansetron (ZOFRAN) injection 4 mg, 4 mg, Intravenous, Q6H PRN enoxaparin (LOVENOX) injection 40 mg, 40 mg, Subcutaneous, Daily ursodiol (ACTIGALL) capsule 300 mg, 300 mg, Oral, TID rOPINIRole (REQUIP) tablet 0.5 mg, 0.5 mg, Oral, QAM rOPINIRole (REQUIP) tablet 1 mg, 1 mg, Oral, Nightly [COMPLETED] Saline lock IV, , , Continuous AND sodium chloride flush 0.9 % injection 3 mL, 3 mL,Intravenous, Q8H OBJECTIVE VITALS: BP (!) 113/52 Pulse 84 Temp 98.2 F (36.8 C) (Temporal) Resp 18 Ht 5' 7 (1.702 m) Wt 269 lb 12.8 oz (122.4 kg) LMP 07/25/2014 SpO2 92% BMI 42.26 kg/m TEMPERATURE: Current - Temp: 98.2 F (36.8 C); Max - Temp Av.9 F (36.6 C) Min: 97.7 F (36.5 C) Max: 98.2 F (36.8 C) RESPIRATIONS RANGE: Resp Av.8 Min: 16 Max: 20 PULSE RANGE: Pulse Av.1 Min: 84 Max: 96 BLOOD PRESSURE RANGE: Systolic (24hrs), Av , Min:106 , Max:138 ; Diastolic (24hrs), Av, Min:52, Max:72 PULSE OXIMETRY RANGE: SpO2 Av.1 % Min: 90 % Max: 94 % 24HR INTAKE/OUTPUT: Intake/Output Summary (Last 24 hours) at 05/21/2020 0823 Last data filed at 05/20/2020 1408 Gross per 24 hour Intake 120 ml Output Net 120 ml GENERAL: Pleasant and NAD, resting in bed, obese HEENT: NCAT, PERRLA, EOMI, Scleral anicteric. Oropharhynx clear with no erythema or exudate. Neck supple, no cervical LAD or thyromegaly. CV: RRR, NL S1/S2, no murmurs. Distal pulses palpable and equal b/l. LUNGS: CTA b/l. Normal palpation. No W/R/R. Abdomen: + BS, soft, non tender to palpation and non-distended. No hepatosplenomegaly. No mass felt.No rebound or guarding. No hernia. R draining tube in place, output noted, brown in color Extremities: No C/C/E. No muscle atrophy. Skin: No skin lesion or breakdown. Lymph: No cervical or supraclavicular LAD. Musculoskeletal: Strength 5/5 in all exts. No joint tenderness or effusions in LEs. Neurologic: A&O x 3, CN II-XII grossly intact. DTR +1 symmetric in patella. Normal cerebellar fxn. Asterixis (-). Non-focal. Psych: Normal affect and speech. Data Recent blood work and radiologic studywere reviewed with the patient. CBC: Recent Labs 05/19/2020105/20/2035405/21/20405 WBC 10.0 8.4 8.2 RBC 3.45* 3.48* 3.49* HGB 10.3* 10.6* 10.6* HCT 30.7* 31.1* 31.1* MCV 89.0 89.2 88.9 MCH 30.0 30.5 30.5 MCHC 33.7 34.2 34.3 RDW 14.8* 15.3* 15.6* PLT 195 181 177 MPV 7.1* 7.2* 7.3* CMP: Recent Labs 05/19/2020105/20/2035405/21/20405 NA 131* 133* 133* K 3.5 3.2* 3.4* CL 100 100 101 CO2 24 26 25 BUN 9 9 8 CREATININE 0.53 0.50* 0.47* GLUCOSE 91 75 79 CALCIUM 8.3* 8.5 8.2* PT/INR: Recent Labs 05/20/20 1239 INR 1.7* Results for EVER MCKEON ( ) as of 05/21/2020 09:15 Ref. Range 05/20/2020 23:56 Nucl Cell, Fluid Latest Units: cells/uL 269 05/21/2020 12:19 AM - [facility] Results From Soft[facility] Component Value Ref Range & Units Status Collected Lab Protein, body fluid 4.0 05/21/2020 3:00 AM - [facility], [facility] Incoming Lab Results From Soft/[facility] Component Value Ref Range & Units Status Collected Lab Neutrophils % 81 % Final 05/20/2020 12:15 PM [facility] Lymphocytes 10 % Final 05/20/2020 12:15 PM [facility] Monocytes 5 % Final 05/20/2020 12:15 PM [facility] Eosinophils 3 % Final 05/20/2020 12:15 PM [facility] Macrophage count 1 % Final 05/20/2020 12:15 PM [facility] Differential Count 100 NA Final 05/20/2020 12:15 PM [facility] Component Collected Lab Gram Stain Result 05/20/2020 12:15 PM [facility] Many polymorphonuclear cells/lpf. No organisms seen. Cytocentrifugation performed. Microscopic observation and enumeration of white blood cells should be confirmed by Cell Count with Differential. Radiology Review: RUQ Fluid aspiration 05/20/2020 12 ccs clear yellow fluid obtained. Bandaid applied to site. 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 MELD 22, 19.6% estimated 3-month mortality. Small amount of rim enhancing perihepatic fluid SAAG 1, not thought to be 2/2 from portal HTN. Total protein 4, unclear etiology. No SBP Abdominal pain - likely 2/2 R pararenal hematoma RLB pneumonia - blood cultures draw on 05/15 NGTD Pararenal hematoma - urology evaluated and had drain placed by IR. Infectious disease evaluated Hx polysubstance abuse - sober 1 year PLAN - Will start on lactulose for mild hepatic encephalopathy. Please titrate to two bowel movements a day. Patient expressed understanding - DC'ed senna - Currently on low sodium diet - Will need close follow up and further outpatient work up of cirrhosis to determine if this is PBC,autoimmune, alcoholic, MORRIS, or mix. Patient received our card with instructions for follow up - Educated on continued alcohol cessation - Continue conservative care per primary team - Patient will need close f/u with PCP and GI clinic. Patient will contact own GI physician or call our GI clinic at [phone] to make f/u appointment as soon as patient is d/c'ed home. Patient voiced understanding and agreed of this recommendation. The GI/Liver consult service will sign off. Please call if there are any questions, concerns or change of patient's GI condition. Thanks. Sergio Raza MD - 05/21/2020 8:11 AM EDTPaged by nursing for sharp CP 03/03 with breathing earlier this AM. Adding a troponin to the 4:06 am labs and getting one now stat. Checking EKG as well Kayla Dumont RN - 05/20/2020 4:19 PM EDTPatient arrived to ultrasound department [facility]Q fluid [facility] . Dr. Lynchum in to discuss procedure with patient and informed consent obtained.. environmental monitoring specialist on. 12 ccs clear yellow fluid obtained. Bandaid applied to site. Patient tolerated procedure well. Report called to Delmy CAMPBELL. and patient transferred to [facility]. Daniella Arndt DO - 05/20/2020 10:38 AM EDT [facility] - Infectious Diseases Attending Progress Note Subjective: Following for concern of infection; recent R hemorrhagic cyst rupture and subcapsular hepatic collection s/p drainage. Drain placed last week and so far all cultures negative. Interim events and notes reviewed.. Cultures so far negative. She has developed encephalopathy over the weekend. Still complained of abdominal pain. Objective: Vitals: BP 137/75 Pulse 96 Temp 98.4 F (36.9 C) (Temporal) Resp 20 Ht 5' 7 (1.702 m) Wt 269 lb 14.4 oz (122.4 kg) LMP 07/25/2014 SpO2 91% BMI 42.27 kg/m Intake/Output Summary (Last 24 hours) at 05/20/2020 1041 Last data filed at 05/20/2020 0438 Gross per 24 hour Intake 360 ml Output 441 ml Net -81 ml Physical Exam Constitutional: General: She is not in acute distress. Appearance: She is obese. HENT: Head: Normocephalic and atraumatic. Right Ear: External ear normal. Left Ear: External ear normal. Nose: Nose normal. Mouth/Throat: Mouth: Mucous membranes are moist. Eyes: Extraocular Movements: Extraocular movements intact. Conjunctiva/sclera: Conjunctivae normal. Pupils: Pupils are equal, round, and reactive to light. Neck: Musculoskeletal: Normal range of motion and neck supple. Cardiovascular: Rate and Rhythm: Normal rate and regular rhythm. Pulses: Normal pulses. Pulmonary: Effort: Pulmonary effort is normal. Abdominal: General: Bowel sounds are normal. There is no distension. Palpations: Abdomen is soft. Tenderness: There is abdominal tenderness (RUQ). Comments: Drain in place Musculoskeletal: Normal range of motion. Right lower leg: No edema. Left lower leg: No edema. Skin: General: Skin is warm and dry. Neurological: General: No focal deficit present. Mental Status: She is alert. She is disoriented. Cranial Nerves: Cranial nerves are intact. Motor: Weakness present. Comments: Subtle confusion Psychiatric: Attention and Perception: She is inattentive. Speech: Speech is delayed. Behavior: Behavior is cooperative. Cognition and Memory: Cognition is impaired. Labs: Component Value Date/Time NA 133 (L) 05/20/2020 0355 K 3.2 (L) 05/20/2020 0355 CL 100 05/20/2020 0355 CO2 26 05/20/2020 0355 BUN 9 05/20/2020 0355 CREATININE 0.50 (L) 05/20/2020 0355 GLUCOSE 75 05/20/2020 0355 CALCIUM 8.5 05/20/2020 0355 PROT 6.1 (L) 05/18/2020 0611 LABALBU 2.5 (L) 05/18/2020 0611 LABALBU 3.6 02/15/2019 1015 BILITOT 0.9 05/18/2020 0611 ALKPHOS 134 (H) 05/18/2020 0611 AST 31 05/18/2020 0611 ALT 12 05/18/2020 0611 PROCAL 1.13 (A) 05/16/2020 0424 PROCAL 0.32 (A) 05/11/2020 0248 Component Value Date/Time WBC 8.4 05/20/2020 0355 WBC 4.2 (L) 02/15/2019 1015 HGB 10.6 (L) 05/20/2020 0355 HCT 31.1 (L) 05/20/2020 0355 PLT 181 05/20/2020 0355 GRANULOCYTES 66.5 05/20/2020 0355 LYMPHOPCT 15.4 (L) 05/20/2020 0355 MONOPCT 16.4 (H) 05/20/2020 0355 MONOPCT 12.4 02/15/2019 1015 LABEOS 1.3 05/20/2020 0355 BASOPCT 0.4 05/20/2020 0355 BASOPCT 1.1 02/15/2019 1015 NEUTROABS 5.6 05/20/2020 0355 NEUTROABS 2.2 02/15/2019 1015 Micro: Blood cultures: Lab Results Component Value Date BC 05/15/2020 No growth at 1 day. No growth at 2 days. No growth at 3 days. No growth at 4 days. 05/15/2020 No growth at 1 day. No growth at 2 days. No growth at 3 days. No growth at 4 days. No growth at 5 days. 05/08/2020 BC No growth at 5 days. 05/08/2020 BC No growth after 5 days of incubation. 02/15/201905/15 Urine culture: No growth (<1,000 CFU/ml) 05/15 Respiratory sputum cx pending 05/15 Strep pneumo antigen: Positive 05/15 Legionella antigen: Negative 05/15 UA: Negative 05/16 Respiratory Virus PCR: Negative Lines: PIV Radiography/Echo/Other: CT abdomen and saotkn-[id number] 05-19-2020 Antimicrobials, Start/End Dates: Zosyn 3.375 g IV q8h 05/15- Impression: 1. Fever and leukocytosis 2. New subcapsular hepatic collection 3. R hemorrhagic renal cyst 4. Known biliary cirrhosis 5. Positive HBcAb (+), HBsAb (-), HBsAg (-), HCV (-) 6. Previous EtOH abuse sober x 1 year Plan: 1. DC piperacillin-tazobactam 2. Care per primary and GI Pager: [phone] Luz Maria Arredondo MD - 05/20/2020 8:40 AM EDT [facility] Progress Note Ever Mckeon : 1970(49 y.o.) Date: 05/20/20 Subjective: CC: abd pain Continues to have abd pain, requiring IV and PO pain meds No fever or chills Having small BMs, but distention/bloating worsened Scheduled Meds: potassium chloride 10 mEq Intravenous Q1H sennosides-docusate sodium 2 tablet Oral Daily buPROPion 300 mg Oral Daily citalopram 40 mg Oral Daily ferrous sulfate 325 mg Oral BID WC vitamin C 250 mg Oral BID pantoprazole 40 mg Oral QAM AC piperacillin-tazobactam 3.375 g Intravenous Q8H sodium chloride flush 10 mL Intravenous 2 times per day enoxaparin 40 mg Subcutaneous Daily ursodiol 300 mg Oral TID rOPINIRole 0.5 mg Oral QAM rOPINIRole 1 mg Oral Nightly sodium chloride flush 3 mL Intravenous Q8H Continuous Infusions: PRN Meds:docusate sodium, melatonin, oxyCODONE-acetaminophen, HYDROmorphone, sodium chloride flush, acetaminophen OR acetaminophen, polyethylene glycol, promethazine OR ondansetron Review of Systems Constitutional: Positive for fatigue. Negative for chills and fever. Respiratory: Negative for cough and shortness of breath. Cardiovascular: Negative for chest pain. Gastrointestinal: Positive for abdominal pain and constipation. Negative for nausea and vomiting. Psychiatric/Behavioral: Positive for confusion. Negative for agitation. Interval Pertinent History: Social History Tobacco Use Smoking status: Former Smoker Packs/day: 0.50 Years: 15.00 Pack years: 7.50 Start date: 10/25/1986 Last attempt to quit: 09/24/2018 Years since quittin.6 Smokeless tobacco: Never Used Tobacco comment: pt quit 09/2018, off and smoker Substance Use Topics Alcohol use: No Comment: Last Drinking 10/2017, hx EtoH for 20 years, attended AA program 2001 to 2013 Objective: Patient Vitals for the past 24 hrs: BP Temp Temp src Pulse Resp SpO2 Weight 05/20/20 0755 137/75 98.4 F (36.9 C) Temporal 96 20 91 % 05/20/20 0438 125/63 98.4 F (36.9 C) Temporal 91 20 93 % 269 lb 14.4 oz (122.4 kg) 05/19/20 2356 (!) 141/66 98.8 F (37.1 C) Temporal 94 20 92 % 05/19/20 2028 108/63 97.2 F (36.2 C) Temporal 97 18 92 % 05/19/20 1441 (!) 112/58 97.6 F (36.4 C) Temporal 94 16 93 % 05/19/20 1216 (!) 124/58 98.3 F (36.8 C) Temporal 96 18 93 % Average, Min, and Max for last 24 hours Vitals: TEMPERATURE: Temp Av.1 F (36.7 C) Min: 97.2 F (36.2 C) Max: 98.8 F (37.1 C) RESPIRATIONS RANGE: Resp Av.7 Min: 16 Max: 20 PULSE RANGE: Pulse Av.7 Min: 91 Max: 97 BLOOD PRESSURE RANGE: Systolic (24hrs), Av , Min:108 , Max:141 ; Diastolic (24hrs), Av, Min:58, Max:75 PULSE OXIMETRY RANGE: SpO2 Av.3 % Min: 91 % Max: 93 % I/O last 3 completed shifts: In: 360 [P.O.:360] Out: 1141 [Urine:1101; Drains:40] Physical Exam Constitutional: General: She is not in acute distress. Appearance: She is obese. She is not ill-appearing, toxic-appearing or diaphoretic. HENT: Head: Normocephalic and atraumatic. Eyes: Conjunctiva/sclera: Conjunctivae normal. Cardiovascular: Rate and Rhythm: Normal rate and regular rhythm. Heart sounds: No murmur. No friction rub. No gallop. Pulmonary: Effort: Pulmonary effort is normal. No respiratory distress. Breath sounds: Normal breath sounds. No stridor. No wheezing, rhonchi or rales. Abdominal: General: Abdomen is flat. Bowel sounds are normal. There is distension. Palpations: Abdomen is soft. Tenderness: There is abdominal tenderness (RUQ). There is no guarding. Comments: Drain in place w/ small amt of fluid Musculoskeletal: Right lower leg: No edema. Left lower leg: No edema. Skin: General: Skin is warm and dry. Neurological: Mental Status: She is alert. Lab Results Component Value Date WBC 8.4 05/20/2020 HGB 10.6 (L) 05/20/2020 HCT 31.1 (L) 05/20/2020 MCV 89.2 05/20/2020 PLT 181 05/20/2020 Lab Results Component Value Date NA 133 05/20/2020 K 3.2 05/20/2020 CL 100 05/20/2020 CO2 26 05/20/2020 BUN 9 05/20/2020 CREATININE 0.50 05/20/2020 GLUCOSE 75 05/20/2020 CALCIUM 8.5 05/20/2020 Lab Results Component Value Date LABA1C 5.4 01/18/2019 Additional results of the last 24 hours have been reviewed. Assessment and Plan: Active Problems: Kidney hematoma Sepsis (HCC) Pneumonia due to organism Resolved Problems: * No resolved hospital problems. * Sepsis- fever, leukocytosis, lactic acidosis on presentation New subscapsular hepatic collection and R hemorrhagic renal cyst -Pt presented w/ worsening abd pain and fever. Was admitted 05/07-05/11 for similar cause; at that time had perinephric hematoma/hemorrhage. CT A/P repeated in ED showed possible pedro infiltrate in RLB vs fluid in R pararenal space from R kidney, and new hepatic collection -Urology consulted; s/p drain placement- staff to ask urology when drain can be removed. Small drainage -Appreciate ID's help. BC and fluid Cx with no growth to date. On zosyn. Check procal today -Rpt CT A/P 05/19 shows resolved R perinephric fluid collection. Persistent/more prominent fluid surrounding R hepatic lobe with enhancing rim, unchange cirrhotic liver with portal HTN and splenomegaly,R basilar infiltrate and small R pleural effusion -Consult GI -Will order US drainage perihepatic fluid with fluid analysis Acute encephalopathy - Likely metabolic vs med related, mild hepatic encephalopathy - Ammonia was mildly elevated, TSH, B12 NEG, low vit D (replacement ordered) - GI started lactulose for confusion and constipation Abdominal pain- likely d/t perihepatic fluid +constipation Biliary cirrhosis and liver cirrhosis with portal HTN -Per a note from [facility] in 2002. Was on ursodiol, recently restarted this month -Follows with GI outpatient, -GI consult, will need FU and OP workup of cirrhosis R basilar infiltrate on CT - Patient has no respiratory symptoms, on zosyn. Strep pneumo Ag pos, Resp Cx neg Hypokalemia - Replete, monitor Prolonged QTc - Monitor Depression, anxiety -Continuing celexa and wellbutrin. Prior meth/ETOH abuse - Sober x1 yr DVTProphylaxis: lovenox 40 q 24hr - creatinine clearance >30 Disposition:await test results, await cognos consultant recommendations and await clinical improvement I spent over 51% of total time providing counseling or incoordination of care: > 35 minutes discussed with nurse, discussed with TCC/SW, patient and family updated, I personally examined the patient and I personally reviewed chart, data, labs radiology reports. D/W treatment plan with patient extensively 6AM-6PM please page: Electronically signed by Luz Maria Garcia MD 6PM-6AM please page: [facility] Internal Medicine Luz Maria Arredondo MD - 05/19/2020 9:08 AM EDT [facility] Progress Note Ever Mckeon : 1970(49 y.o.) Date: 05/19/20 Subjective: CC: abd pain Continues to have mild confusion Abdominal pain still present, requiring multiple prn pain doses Mild nausea and vomiting No fever or chills No BM in last 4 days Scheduled Meds: buPROPion 300 mg Oral Daily citalopram 40 mg Oral Daily ferrous sulfate 325 mg Oral BID WC vitamin C 250 mg Oral BID pantoprazole 40 mg Oral QAM AC piperacillin-tazobactam 3.375 g Intravenous Q8H sodium chloride flush 10 mL Intravenous 2 times per day enoxaparin 40 mg Subcutaneous Daily ursodiol 300 mg Oral TID rOPINIRole 0.5 mg Oral QAM rOPINIRole 1 mg Oral Nightly sodium chloride flush 3 mL Intravenous Q8H Continuous Infusions: PRN Meds:docusate sodium, melatonin, oxyCODONE-acetaminophen, HYDROmorphone, sodium chloride flush, acetaminophen OR acetaminophen, polyethylene glycol, promethazine OR ondansetron Review of Systems Constitutional: Positive for fatigue. Negative for chills and fever. Respiratory: Negative for cough and shortness of breath. Cardiovascular: Negative for chest pain. Gastrointestinal: Positive for abdominal pain. Negative for nausea and vomiting. Psychiatric/Behavioral: Positive for confusion. Negative for agitation. Interval Pertinent History: Social History Tobacco Use Smoking status: Former Smoker Packs/day: 0.50 Years: 15.00 Pack years: 7.50 Start date: 10/25/1986 Last attempt to quit: 09/24/2018 Years since quittin.6 Smokeless tobacco: Never Used Tobacco comment: pt quit 09/2018, off and smoker Substance Use Topics Alcohol use: No Comment: Last Drinking 10/2017, hx EtoH for 20 years, attended AA program 2001 to 2013 Objective: Patient Vitals for the past 24 hrs: BP Temp Temp src Pulse Resp SpO2 Weight 05/19/20 0747 134/65 99.1 F (37.3 C) Temporal 89 18 93 % 05/19/20 0300 (!) 130/56 97.6 F (36.4 C) Temporal 95 16 93 % 271 lb 11.2 oz (123.2 kg) 05/18/20 2248 (!) 140/57 97.6 F (36.4 C) Temporal 95 20 92 % 05/18/20 1956 101/61 98.1 F (36.7 C) Temporal 89 20 92 % 05/18/20 1426 123/62 97 F (36.1 C) Temporal 95 18 92 % 05/18/20 1141 (!) 116/57 97.5 F (36.4 C) Temporal 89 18 96 % Average, Min, and Max for last 24 hours Vitals: TEMPERATURE: Temp Av.8 F (36.6 C) Min: 97 F (36.1 C) Max: 99.1 F (37.3 C) RESPIRATIONS RANGE: Resp Av.3 Min: 16 Max: 20 PULSE RANGE: Pulse Av Min: 89 Max: 95 BLOOD PRESSURE RANGE: Systolic (24hrs), Av , Min:101 , Max:140 ; Diastolic (24hrs), Av, Min:56, Max:65 PULSE OXIMETRY RANGE: SpO2 Av % Min: 92 % Max: 96 % I/O last 3 completed shifts: In: 1060 [P.O.:1060] Out: 800 [Urine:800] Physical Exam Constitutional: General: She is not in acute distress. Appearance: She is obese. She is not ill-appearing, toxic-appearing or diaphoretic. HENT: Head: Normocephalic and atraumatic. Eyes: Conjunctiva/sclera: Conjunctivae normal. Cardiovascular: Rate and Rhythm: Normal rate and regular rhythm. Heart sounds: No murmur. No friction rub. No gallop. Pulmonary: Effort: Pulmonary effort is normal. No respiratory distress. Breath sounds: Normal breath sounds. No stridor. No wheezing, rhonchi or rales. Abdominal: General: Abdomen is flat. Bowel sounds are normal. There is no distension. Palpations: Abdomen is soft. Tenderness: There is abdominal tenderness (RUQ). There is no guarding. Comments: Drain in place w/ small amt of fluid Musculoskeletal: Right lower leg: No edema. Left lower leg: No edema. Skin: General: Skin is warm and dry. Neurological: Mental Status: She is alert. Lab Results Component Value Date WBC 10.0 05/19/2020 HGB 10.3 (L) 05/19/2020 HCT 30.7 (L) 05/19/2020 MCV 89.0 05/19/2020 PLT 195 05/19/2020 Lab Results Component Value Date NA 131 05/19/2020 K 3.5 05/19/2020 CL 100 05/19/2020 CO2 24 05/19/2020 BUN 9 05/19/2020 CREATININE 0.53 05/19/2020 GLUCOSE 91 05/19/2020 CALCIUM 8.3 05/19/2020 Lab Results Component Value Date LABA1C 5.4 01/18/2019 Additional results of the last 24 hours have been reviewed. Assessment and Plan: Active Problems: Kidney hematoma Sepsis (HCC) Pneumonia due to organism Resolved Problems: * No resolved hospital problems. * Sepsis- fever +leukocytosis +lactic acidosis on presentation New subscapsular hepatic collection R hemorrhagic renal cyst Positive strep pneumo urine Ag- possible RLL PNA -Pt presented w/ worsening abd pain and fever. Was admitted 05/07-05/11 for similar cause; at that time had perinephric hematoma/hemorrhage. CT A/P repeated in ED showed possible pedro infiltrate in RLB vs fluid in R pararenal space from R kidney, and new hepatic collection. Concern for infection -Urology consulted; s/p drain placement- monitor output -Appreciate ID's help. -BC x2 in process, fluid Cx with no growth to date -Cont zosyn -Check CT A/P today given persistent pain -Add SennaS for constipation Acute encephalopathy - Likely metabolic vs med related - Continue to monitor - Ammonia only mildly elevated, check TSH, B12, vit D Hypokalemia - Replete, monitor Biliary cirrhosis Liver cirrhosis Portal HTN -Per a note from [facility] in 2002. Was on ursodiol, but hasn't taken it in years. Resumed it lastweekend; will continue until pt follows up w/ GI outpatient. Prolonged QTc - Monitor Depression, anxiety -Continuing celexa and wellbutrin. Prior meth/ETOH abuse - Sober x1 yr DVTProphylaxis: lovenox 40 q 24hr - creatinine clearance >30 Disposition:await test results, await cognos consultant recommendations and await clinical improvement I spent over 51% of total time providing counseling or incoordination of care: > 35 minutes discussed with nurse, discussed with TCC/SW, patient and family updated, I personally examined the patient and I personally reviewed chart, data, labs radiology reports. 6AM-6PM please page: Electronically signed by Luz Maria Garcia MD 6PM-6AM please page: [facility] Internal Medicine Luz Maria Arredondo MD - 05/18/2020 9:18 AM EDT [facility] Progress Note Ever Mckeon : 1970(49 y.o.) Date: 05/18/20 Subjective: CC: abd pain Feels slightly confused this morning- like she has been sleep talking Alert and oriented otherwise Mild abdominal pain, improved since admission No nausea, vomiting, fever or chills Scheduled Meds: buPROPion 300 mg Oral Daily citalopram 40 mg Oral Daily ferrous sulfate 325 mg Oral BID WC vitamin C 250 mg Oral BID pantoprazole 40 mg Oral QAM AC piperacillin-tazobactam 3.375 g Intravenous Q8H sodium chloride flush 10 mL Intravenous 2 times per day enoxaparin 40 mg Subcutaneous Daily ursodiol 300 mg Oral TID rOPINIRole 0.5 mg Oral QAM rOPINIRole 1 mg Oral Nightly sodium chloride flush 3 mL Intravenous Q8H Continuous Infusions: PRN Meds:docusate sodium, melatonin, oxyCODONE-acetaminophen, HYDROmorphone, sodium chloride flush, acetaminophen OR acetaminophen, polyethylene glycol, promethazine OR ondansetron Review of Systems Constitutional: Positive for fatigue. Negative for chills and fever. Respiratory: Negative for cough and shortness of breath. Cardiovascular: Negative for chest pain. Gastrointestinal: Positive for abdominal pain. Negative for nausea and vomiting. Psychiatric/Behavioral: Positive for confusion. Negative for agitation. Interval Pertinent History: Social History Tobacco Use Smoking status: Former Smoker Packs/day: 0.50 Years: 15.00 Pack years: 7.50 Start date: 10/25/1986 Last attempt to quit: 09/24/2018 Years since quittin.6 Smokeless tobacco: Never Used Tobacco comment: pt quit 09/2018, off and smoker Substance Use Topics Alcohol use: No Comment: Last Drinking 10/2017, hx EtoH for 20 years, attended AA program 2001 to 2013 Objective: Patient Vitals for the past 24 hrs: BP Temp Temp src Pulse Resp SpO2 Weight 05/18/20 0742 111/71 97.2 F (36.2 C) Temporal 92 18 98 % 05/18/20 0304 107/66 96.9 F (36.1 C) Temporal 71 20 98 % 272 lb 3.2 oz (123.5 kg) 05/17/20 2309 (!) 140/83 96.7 F (35.9 C) Temporal 92 20 92 % 05/17/202006 133/61 98.5 F (36.9 C) Oral 97 16 91 % 05/17/20 1611 122/64 98 F (36.7 C) Temporal 89 20 92 % 05/17/20 1223 (!) 128/49 98.4 F (36.9 C) Temporal 92 18 (!) 89 % Average, Min, and Max for last 24 hours Vitals: TEMPERATURE: Temp Av.6 F (36.4 C) Min: 96.7 F (35.9 C) Max: 98.5 F (36.9 C) RESPIRATIONS RANGE: Resp Av.7 Min: 16 Max: 20 PULSE RANGE: Pulse Av.8 Min: 71 Max: 97 BLOOD PRESSURE RANGE: Systolic (24hrs), Av , Min:107 , Max:140 ; Diastolic (24hrs), Av, Min:49, Max:83 PULSE OXIMETRY RANGE: SpO2 Av.3 % Min: 89 % Max: 98 % I/O last 3 completed shifts: In: 760 [P.O.:760] Out: 800 [Urine:750; Drains:50] Physical Exam Constitutional: General: She is not in acute distress. Appearance: She is obese. She is not ill-appearing, toxic-appearing or diaphoretic. HENT: Head: Normocephalic and atraumatic. Eyes: Conjunctiva/sclera: Conjunctivae normal. Cardiovascular: Rate and Rhythm: Normal rate and regular rhythm. Heart sounds: No murmur. No friction rub. No gallop. Pulmonary: Effort: Pulmonary effort is normal. No respiratory distress. Breath sounds: Normal breath sounds. No stridor. No wheezing, rhonchi or rales. Abdominal: General: Abdomen is flat. Bowel sounds are normal. There is no distension. Palpations: Abdomen is soft. Tenderness: There is abdominal tenderness (RUQ). There is no guarding. Comments: Drain in place w/ small amt of fluid Musculoskeletal: Right lower leg: No edema. Left lower leg: No edema. Skin: General: Skin is warm and dry. Neurological: Mental Status: She is alert. Lab Results Component Value Date WBC 10.1 05/18/2020 HGB 10.3 (L) 05/18/2020 HCT 30.3 (L) 05/18/2020 MCV 90.1 05/18/2020 PLT 187 05/18/2020 Lab Results Component Value Date NA 131 05/18/2020 K 3.4 05/18/2020 CL 99 05/18/2020 CO2 23 05/18/2020 BUN 11 05/18/2020 CREATININE 0.57 05/18/2020 GLUCOSE 92 05/18/2020 CALCIUM 8.3 05/18/2020 Lab Results Component Value Date LABA1C 5.4 01/18/2019 Additional results of the last 24 hours have been reviewed. Assessment and Plan: Active Problems: Kidney hematoma Sepsis (HCC) Pneumonia due to organism Resolved Problems: * No resolved hospital problems. * Sepsis- fever +leukocytosis on presentation Lactic acidosis- resolved New subscapsular hepatic collection R hemorrhagic renal cyst Positive strep pneumo urine Ag- possible RLL PNA -Pt presented w/ worsening abd pain and fever. Was admitted 05/07-05/11 for similar cause; at that time had perinephric hematoma/hemorrhage. CT A/P repeated in ED showed possible pedro infiltrate in RLB vs fluid in R pararenal space from R kidney, and new hepatic collection. Concern for infection -Urology consulted; s/p drain placement- monitor output -Appreciate ID's help. -BC x2 in process, fluid Cx with no growth to date -Cont zosyn Acute encephalopathy - Likely metabolic vs med related - Check LFTs and ammonia level, continue to monitor Hypokalemia - Replete, monitor Biliary cirrhosis Liver cirrhosis Portal HTN -Per a note from [employer] in 2002. Was on ursodiol, but hasn't taken it in years. Resumed it lastweekend; will continue until pt follows up w/ GI outpatient. Prolonged QTc - Monitor Depression, anxiety -Continuing celexa and wellbutrin. Prior meth/ETOH abuse - Sober x1 yr DVTProphylaxis: lovenox 40 q 24hr - creatinine clearance >30 Disposition:await test results, await cognos consultant recommendations and await clinical improvement I spent over 51% of total time providing counseling or incoordination of care: > 35 minutes discussed with nurse, discussed with TCC/SW, patient and family updated, I personally examined the patient and I personally reviewed chart, data, labs radiology reports. D/W RN 6AM-6PM please page: Electronically signed by Luz Maria Garcia MD 6PM-6AM please page: [facility] Internal Medicine ITMTim brown - 05/17/2020 11:32 AM EDT Nutrition rescreen completed. Chart reviewed. Patient to be monitored and followed by the diet water treatment technician. BRANDON Bunn angMarisa MD - 05/17/2020 10:00 AM EDT [facility] - Infectious Diseases Attending Progress Note Subjective: Following for concern of infection. Patient seen and examined today. No acute overnight events. Drain placed by IR yesterday. She states that she feels better today. She reports ongoing RUQ abdominal pain that radiates inferiorly. Currently afebrile. Objective: Vitals: Patient Vitals for the past 24 hrs: BP Temp Temp src Pulse Resp SpO2 Weight 05/17/20 0841 (!) 132/59 99 F (37.2 C) Oral 89 20 (!) 89 % 05/17/20 0319 104/82 98.9 F (37.2 C) Temporal 98 18 95 % 211 lb 3.2 oz (95.8 kg) 05/16/20 2221 121/65 97.7 F (36.5 C) Temporal 96 18 97 % 05/16/20 1918 (!) 104/58 99.2 F (37.3 C) Temporal 106 18 92 % 05/16/20 1615 128/70 99.8 F (37.7 C) Temporal 93 20 92 % 05/16/20 1445 95/66 90 17 93 % 05/16/20 1440 84/61 93 25 93 % 05/16/20 1435 (!) 93/53 93 18 93 % 05/16/20 1430 (!) 101/57 97 20 93 % 05/16/20 1425 98/61 95 17 90 % 05/16/20 1420 (!) 103/56 94 21 96 % 05/16/20 1154 118/60 98.2 F (36.8 C) Oral 92 16 93 % Physical Exam Constitutional: General: She is not in acute distress. Appearance: She is obese. HENT: Head: Normocephalic and atraumatic. Right Ear: External ear normal. Left Ear: External ear normal. Nose: Nose normal. Mouth/Throat: Mouth: Mucous membranes are moist. Eyes: Extraocular Movements: Extraocular movements intact. Conjunctiva/sclera: Conjunctivae normal. Pupils: Pupils are equal, round, and reactive to light. Neck: Musculoskeletal: Normal range of motion and neck supple. Cardiovascular: Rate and Rhythm: Normal rate and regular rhythm. Pulses: Normal pulses. Pulmonary: Effort: Pulmonary effort is normal. Abdominal: General: Bowel sounds are normal. There is no distension. Palpations: Abdomen is soft. Tenderness: There is abdominal tenderness (RUQ). Comments: Drain in place Musculoskeletal: Normal range of motion. Right lower leg: No edema. Left lower leg: No edema. Skin: General: Skin is warm and dry. Neurological: Mental Status: She is alert and oriented to person, place, and time. Psychiatric: Mood and Affect: Mood normal. Behavior: Behavior normal. Thought Content: Thought content normal. Labs: Component Value Date/Time NA 131 (L) 05/17/2020 0059 K 3.5 05/17/2020 0059 CL 98 05/17/2020 0059 CO2 22 05/17/2020 0059 BUN 11 05/17/2020 0059 CREATININE 0.60 05/17/2020 0059 GLUCOSE 86 05/17/2020 0059 CALCIUM 8.4 05/17/2020 0059 PROT 6.7 05/15/2020 1726 LABALBU 2.8 (L) 05/15/2020 1726 LABALBU 3.6 02/15/2019 1015 BILITOT 1.5 (H) 05/15/2020 1726 ALKPHOS 148 (H) 05/15/2020 1726 AST 29 05/15/2020 1726 ALT 15 05/15/2020 1726 PROCAL 1.13 (A) 05/16/2020 0424 PROCAL 0.32 (A) 05/11/2020 0248 Component Value Date/Time WBC 15.9 (H) 05/17/2020 005 WBC 4.2 (L) 02/15/2019 1015 HGB 10.5 (L) 05/17/2020 005 HCT 31.2 (L) 05/17/2020 005 PLT 192 05/17/2020 005 GRANULOCYTES 78.8 05/17/2020 005 LYMPHOPCT 9.9 (L) 05/17/2020 005 MONOPCT 9.4 05/17/2020 005 MONOPCT 12.4 02/15/2019 1015 LABEOS 1.5 05/17/2020 005 BASOPCT 0.4 05/17/2020 005 BASOPCT 1.1 02/15/2019 1015 NEUTROABS 12.6 (H) 05/17/2020 005 NEUTROABS 2.2 02/15/2019 1015 Micro: 05/15 BC1: No growth at day 1 05/15 BC2: No growth at day 1 05/15 Urine culture: No growth (<1,000 CFU/ml) 05/15 Respiratory sputum cx pending 05/15 Strep pneumo antigen: Positive 05/15 Legionella antigen: Negative 05/15 UA: Negative 05/16 Respiratory Virus PCR: Negative Lines: Peripheral Radiography/Echo/Other: 05/15 CT abd/pelvis w/ contrast: IMPRESSION: Patchy infiltrate in the right lung base. Moderate hiatal hernia. Again seen is a cystic lesion arising from the lower pole of the right kidney which communicates with patchy fluid in the right pararenal space. This fluid could be infected. There is a new hepatic subcapsular fluid collection which could also be infected. Cirrhotic appearance of liver. Splenomegaly. Portal hypertension. Free fluid in the pelvis. 05/15 CXR: Findings and impression: Chest two views. Focal infiltrate right lower lobe. No definite effusion or pneumothorax. Mediastinum difficult to evaluate due to technique; cardiac enlargement possible. A right lower lobe pneumonia is suspected. 05/10 US Doppler abd/pelvis/retro/lmtd: IMPRESSION: 1. Cirrhotic morphology of the liver. 2. Portal veins are patent with normal hepatopedal flow. 3. Hepatic artery is patent with borderline elevated resistive index, which may be seen in the setting of hepatic cirrhosis or hepatic venous congestion among other possibilities. 4. Hepatic veins are poorly visualized, which may be due in part to difficulty of examination from patient body habitus although venoocclusive disease is also possible in the proper clinical context. Antimicrobials, Start/End Dates: Zosyn 3.375 g IV q8h 05/15- Vancomycin 05/15-05/16 Impression: 49 yo female with past medical history significant for IBS, BARBARA, GERD, anxiety, depression, and meth/alcohol abuse (sober for 1 year) who presents with worsening abdominal pain and fever for the past couple weeks. Patient was recently admitted to [facility] for similar abdominal pain and fever from 05/07-05/11and then discharged home in stable condition without antibiotics. - Fever and leukocytosis - WBC 15.9 from 21.0 yesterday - Cystic lesion on right kidney with fluid in right pararenal space - New hepatic subcapsular fluid collection - Strep pneumo Pneumonia - Known biliary cirrhosis ([facility] - prior ursodiol 250 mg TID) - Positive HBcAb (+), HBsAb (-), HBsAg (-), HCV (-) - Lactic acidosis - Initially 3.0 on presentation to ER, but now 1.7 - Elevated procalcitonin 1.13 on 05/16 Plan: - Follow blood cultures - Continue zosyn - IR guided drain in place - Will continue to follow and monitor Associated attestation - Daniella Patten DO - 05/17/2020 3:24 PM EDTAttending Supervising Physician's Attestation Statement for Progress Note Patient was seen and examined under my direct supervision and the above is a reflection of my history, exam and assessment and plan and independently verified. I have personally interviewed, examined the patient and verified elements of the exam listed below. Interval changes are as noted and addended. I agree with the current plan of care including the workup, evaluation, management, and diagnosis. I have discussed the findings and plans with the resident physician/student and agree as documented above. The documentation below has been reviewed, verified, re-performed and addended as needed in blue font to reflect the findings of my evaluation. Patient re-assessed and agreed with house staff. Pain better today but still present. Cultures so far negative. Discussed with: [x]Residents [x]Patient []RN []Consultants []SW/TCC []Other Reviewed: [x]Epic notes [x]Radiology studies [x]Labs [x]Microbiology []Operative notes/Outside records Impression: Fever and leukocytosis New subcapsular hepatic collection R hemorrhagic renal cyst Known biliary cirrhosis ([facility] - prior ursodiol 250 mg tid) Positive HBcAb (+), HBsAb (-), HBsAg (-), HCV (-) Previous EtOH sober x 1 year Plan: No particular pathogens so far in cultures remains on piperacillin-tazobactam for now Pain control and care per primary Re-assess 05-20-2020 Subsequent Inpatient: Spent >51% of time discussing, counseling, reviewing studies/imaging and microbiological data and coordinating care for patient. Time spent 25 minutes. Pager: [phone] Kamryn Avila MD - 05/17/2020 6:42 AM EDT UROLOGY PROGRESS NOTE PATIENT NAME: Ever Mckeon DATE OF : 1970 ADMISSION DATE: 05/15/2020 4:36 PM TODAY'S DATE: 05/17/2020 Subjective No acute events overnight. Afebrile. Tolerating diet. No nausea or vomiting Still with anterior right abdominal pain radiating inferiorly Drain placed by IR yesterday Objective VS: BP 104/82 Pulse 98 Temp 98.9 F (37.2 C) (Temporal) Resp 18 Ht 5' 7 (1.702 m) Wt 211 lb 3.2 oz (95.8 kg) LMP 07/25/2014 SpO2 95% BMI 33.08 kg/m Vitals: 05/17/20 0319 BP: 104/82 Pulse: 98 Resp: 18 Temp: 98.9 F (37.2 C) SpO2: 95% I & O - 24hr: Intake/Output Summary (Last 24 hours) at 05/17/2020 0643 Last data filed at 05/17/2020 0636 Gross per 24 hour Intake 400 ml Output 650 ml Net -250 ml Physical Exam: General: Neck: Resp: Abdomen: No acute distress Supple Normal effort Soft, ATTP right upper and lower quadrant, non-distended, : No CVA TTP, Right flank drain with some seropurulent output Skin: Skin color, texture, turgor normal, no rashes or lesions Labs and Imaging Studies Labs: CBC: Recent Labs 05/15/20172505/16/2042305/17/2058 WBC 24.0* 21.0* 15.9* HGB 12.4 10.9* 10.5* HCT 36.9 32.9* 31.2* MCV 89.4 91.0 90.4 PLT 268 206 192 BMP: Recent Labs 05/15/20172505/16/2042305/17/2058 NA 131* 131* 131* K 3.5 3.4* 3.5 CL 97* 99 98 CO2 BUN 9 10 11 CREATININE 0.51* 0.57 0.60 Magnesium: Lab Results Component Value Date MG 1.7 05/17/2020 Phosphate: No results found for: PHOS PT/INR: Recent Labs 05/15/201725 PROTIME 15.5* INR 1.5* U/A: Lab Results Component Value Date LEUKOCYTESUR Negative 05/15/2020 WBCUA 0-2 05/15/2020 RBCUA 0-2 05/15/2020 BACTERIA Negative 05/15/2020 GLUCOSEU Normal 05/15/2020 Urine Culture: No results found for: LABURIN Blood Culture: No growth at one day Imaging Studies: CT abd/pel: IMPRESSION: Patchy infiltrate in the right lung base. Moderate hiatal hernia. Again seen is a cystic lesion arising from the lower pole of the right kidney which communicates with patchy fluid in the right pararenal space. This fluid could be infected. There is a new hepatic subcapsular fluid collection which could also be infected. Cirrhotic appearance of liver. Splenomegaly. Portal hypertension. Free fluid in the pelvis. Assessment and Plan ASSESMENT: 49 y.o. female with right pararenal and hepatic subcapsular fluid collection, and right lower lobe pneumonia PLAN: - Drain placed by IR yesterday, 150cc output, culture pending - Urine culture pending - Strep Pneumo +, currently on IV Zosyn per primary team - Leukocytosis downtrending - No fevers - Likely D/C drain once output nadirs - Will need follow up imaging as outpatient - Will follow peripherally Kamryn Avila, PGY-5 05/17/2020 6:43 AM For questions/concerns please page front edger Urology resident Associated attestation - Corbin Solares MD - 05/17/2020 9:55 AM EDTI agree with residents assessment and plan. This patient was seen and examined by me personally. I performed a history and physical examination of the patient and discussed the management with the resident. Sveta Richards MD - 05/17/2020 6:39 AM EDT [facility] Progress Note Ever Mckeon : 1970(49 y.o.) Date: 05/17/20 Subjective: CC: abd pain Continues to have RUQ pain. Says its unchanged from yday, but that she had difficulty sleeping overnight from it (and from her roommate who kept yelling throughout the night). Denies nausea or vomiting. Got anxious from drain placement, but otherwise has no complaints. Scheduled Meds: buPROPion 300 mg Oral Daily citalopram 40 mg Oral Daily ferrous sulfate 325 mg Oral BID WC vitamin C 250 mg Oral BID pantoprazole 40 mg Oral QAM AC piperacillin-tazobactam 3.375 g Intravenous Q8H sodium chloride flush 10 mL Intravenous 2 times per day enoxaparin 40 mg Subcutaneous Daily ursodiol 300 mg Oral TID rOPINIRole 0.5 mg Oral QAM rOPINIRole 1 mg Oral Nightly sodium chloride flush 3 mL Intravenous Q8H Continuous Infusions: lactated ringers 125 mL/hr at 05/17/20 0050 PRN Meds:docusate sodium, melatonin, oxyCODONE-acetaminophen, HYDROmorphone, sodium chloride flush, acetaminophen OR acetaminophen, polyethylene glycol, promethazine OR ondansetron Review of Systems Constitutional: Positive for fatigue. Negative for chills and fever. Respiratory: Negative for cough and shortness of breath. Cardiovascular: Negative for chest pain. Gastrointestinal: Positive for abdominal pain. Negative for nausea and vomiting. Psychiatric/Behavioral: Negative for agitation and confusion. Interval Pertinent History: Social History Tobacco Use Smoking status: Former Smoker Packs/day: 0.50 Years: 15.00 Pack years: 7.50 Start date: 10/25/1986 Last attempt to quit: 09/24/2018 Years since quittin.6 Smokeless tobacco: Never Used Tobacco comment: pt quit 09/2018, off and smoker Substance Use Topics Alcohol use: No Comment: Last Drinking 10/2017, hx EtoH for 20 years, attended AA program 2001 to 2013 Objective: Patient Vitals for the past 24 hrs: BP Temp Temp src Pulse Resp SpO2 Weight 05/17/20 0319 104/82 98.9 F (37.2 C) Temporal 98 18 95 % 211 lb 3.2 oz (95.8 kg) 05/16/20 2221 121/65 97.7 F (36.5 C) Temporal 96 18 97 % 05/16/20 1918 (!) 104/58 99.2 F (37.3 C) Temporal 106 18 92 % 05/16/20 1615 128/70 99.8 F (37.7 C) Temporal 93 20 92 % 05/16/20 1445 95/66 90 17 93 % 05/16/20 1440 84/61 93 25 93 % 05/16/20 1435 (!) 93/53 93 18 93 % 05/16/20 1430 (!) 101/57 97 20 93 % 05/16/20 1425 98/61 95 17 90 % 05/16/20 1420 (!) 103/56 94 21 96 % 05/16/20 1154 118/60 98.2 F (36.8 C) Oral 92 16 93 % 05/16/20 0714 119/64 98 F (36.7 C) Oral 88 20 92 % Average, Min, and Max for last 24 hours Vitals: TEMPERATURE: Temp Av.6 F (37 C) Min: 97.7 F (36.5 C) Max: 99.8 F (37.7 C) RESPIRATIONS RANGE: Resp Av Min: 16 Max: 25 PULSE RANGE: Pulse Av.6 Min: 88 Max: 106 BLOOD PRESSURE RANGE: Systolic (24hrs), Av , Min:84 , Max:128 ; Diastolic (24hrs), Av, Min:53, Max:82 PULSE OXIMETRY RANGE: SpO2 Av.3 % Min: 90 % Max: 97 % I/O last 3 completed shifts: In: 400 [P.O.:400] Out: - Physical Exam Constitutional: General: She is not in acute distress. Appearance: She is obese. She is not ill-appearing, toxic-appearing or diaphoretic. HENT: Head: Normocephalic and atraumatic. Eyes: Conjunctiva/sclera: Conjunctivae normal. Cardiovascular: Rate and Rhythm: Normal rate and regular rhythm. Heart sounds: No murmur. No friction rub. No gallop. Pulmonary: Effort: Pulmonary effort is normal. No respiratory distress. Breath sounds: Normal breath sounds. No stridor. No wheezing, rhonchi or rales. Abdominal: General: Abdomen is flat. Bowel sounds are normal. There is no distension. Palpations: Abdomen is soft. Tenderness: There is abdominal tenderness (RUQ). There is no guarding. Comments: Drain in place w/ dark red fluid present Musculoskeletal: Right lower leg: No edema. Left lower leg: No edema. Skin: General: Skin is warm and dry. Neurological: Mental Status: She is alert. Lab Results Component Value Date WBC 15.9 (H) 05/17/2020 HGB 10.5 (L) 05/17/2020 HCT 31.2 (L) 05/17/2020 MCV 90.4 05/17/2020 PLT 192 05/17/2020 Lab Results Component Value Date NA 131 05/17/2020 K 3.5 05/17/2020 CL 98 05/17/2020 CO2 22 05/17/2020 BUN 11 05/17/2020 CREATININE 0.60 05/17/2020 GLUCOSE 86 05/17/2020 CALCIUM 8.4 05/17/2020 Lab Results Component Value Date LABA1C 5.4 01/18/2019 Additional results of the last 24 hours have been reviewed. Assessment and Plan: Active Problems: Sepsis (HCC) Pneumonia due to organism Resolved Problems: * No resolved hospital problems. * Sepsis -Pt presented w/ worsening abd pain and fever. Was admitted 05/07-05/11 for similar cause; at that time had perinephric hematoma/hemorrhage. CT A/P repeated in ED showed possible pedro infiltrate in RLB vs fluid in R pararenal space from R kidney. -Pt's symptoms more consistent w/ abd source rather than respiratory, however will add on procal. RVP negative. Legionella Ag negative however strep pneumo Ag positive. Sputum cx ordered however pt w/oproductive cough. -Urology consulted; agree w/ drain placement. Will f/u cxs from fluid. -Appreciate ID's help. -BC x2 in process. Continuing zosyn. Lactic acidosis -Presumably from infection. Was 2.7 on presentation, went up to 3.0, but is now 1.7 after getting IVF and abx. Biliary cirrhosis -Per a note from [employer] in 2002. Was on ursodiol, but hasn't taken it in years. Resumed it lastweekend; will continue until pt follows up w/ GI outpatient. Depression, anxiety -Continuing celexa and wellbutrin. DVTProphylaxis: lovenox 40 q 24hr - creatinine clearance >30 Disposition:await test results, await cognos consultant recommendations, await clinical improvement and anticipate discharge 2-3 days I spent over 51% of total time providing counseling or incoordination of care: > 35 minutes discussed with nurse, discussed with TCC/SW, patient and family updated, I personally examined the patient and I personally reviewed chart, data, labs radiology reports. Reviewed plan w/ pt. Touched base w/ urology. 6AM-6PM please page: 6PM-6AM please page: [facility] Internal Medicine Kayla Dumont RN - 05/16/2020 3:[address] department from room 539A for a pararenal/hepatic fluid collection drain placement . Dr. Boswell in to discuss procedure with patient and informed consent obtained. Patient assisted to CT table environmental monitoring specialist on.#8 fr. Pigtail drain to accordian placed right flankregion. Sutured in place.Specimen obtained. Stayfix and tegaderm applied to site.Patient tolerated procedure well. Report called to Niki Campbell on and patient transferred to room 539A. oAba staples, [facility] - 05/16/2020 10:31 AM EDTInfectious Diseases has been consulted and will manage Vancomycin at this time. Thank you for the consult. Pharmacy signing off for vancomycin dosing. Aba Kendrick [facility] Date: 05/16/20 Time: 10:31 AM documented in this encounter Assessments Diagnosis Hematoma of right kidney, initial encoun ter Right lower quadrant abdominal pain Abdominal pain, right lower quadrant Cellulitis of left breast Primary biliary cirrhosis (HCC) Biliary cirrhosis Blurry vision, bilateral Other specified visual disturbances Renal hemorrhage, right Vascular disorders of kidney Diagnosis Light stools Nonspecific abnormal finding in stool co ntents Other cirrhosis of liver (HCC) Diagnosis Pneumonia due to organism Pneumonia due to other specified organis m Septicemia (HCC) Unspecified septicemia Free fluid in pelvis Kidney hematoma, unspecified laterality, subsequent encounter Lactic acidosis Acidosis Right lower quadrant abdominal pain Abdominal pain, right lower quadrant Hypokalemia Hypopotassemia Other elevated white blood cell (WBC) co unt Sepsis without acute organ dysfunction, due to unspecified organism (HCC) Sepsis (HCC) Hospital Course Winston Flannery, - 05/22/2020 9:50 AM EDT [facility] Discharge Summary with Discharge DayProgress Note and Transition Note Ever Kiel Mckeon : 1970 ADMIT DATE: 05/15/2020 DISCHARGE DATE: 05/22/2020 PRIMARYCARE PHYSICIAN: Delia Galicia MD VISIT STATUS: Admission CODE STATUS: Full Code DISCHARGE DIAGNOSES: Active Problems: Kidney hematoma Sepsis (HCC) Pneumonia due to organism Resolved Problems: * No resolved hospital problems. * HOSPITAL COURSE: 49F hx biliary and hepatic cirrhosis presented to the hospital with cc of abdominal pain and fever. Work up concerning for sepsis of unknown etiology. CT abd/pelvis demonstrated perinephric fluid collection which was sampled and negative for organisms. Repeat imaging demonstrated perihepatic fluid collection which was again sampled and inconsistent with infection. ID was following and recommended discontinuation of antibiotics (pt completed 4+ days of zosyn). GI was consulted and recommended initiation of lactulose. Pt had improvement in her abdominal pain following multiple BMs. Of note, patient found to have RLL infiltrate with effusion - no additional coverage was provided following zosyn administration. She complained of some pleuritic chest pain which improved with diuresis. Pt lives at homewith her son and denied need for SNF or HHC. She was discharged home with instruction to follow up with GI for full cirrhosis work up and PCP within one week. Repeat BMP/CBC/procalcitonin ordered for 05/29/20 to reassess given unclear source of infection. Pt discharged in stable condition. DAY OF DISCHARGE: Review of Systems Respiratory: Negative for shortness of breath. Cardiovascular: Intermittent pleuritic chest pain however improved from yesterday Gastrointestinal: Positive for abdominal pain (intermittent, however improved from previous).. Negative for diarrhea, nausea and vomiting. Abdominal distention: intermittent, however improved from previous. LNBM 05/21/20 Patient Vitals for the past 24 hrs: BP Temp Temp src Pulse Resp SpO2 Weight 05/22/20 0838 (!) 121/57 98.1 F (36.7 C) Temporal 89 18 91 % 05/22/20 0429 117/74 97.6 F (36.4 C) Temporal 95 20 93 % 270 lb 3.2 oz (122.6 kg) 05/21/20 2226 107/81 97.6 F (36.4 C) Temporal 89 20 92 % 05/21/20 1925 (!) 93/40 98.4 F (36.9 C) Temporal 96 20 95 % 05/21/20 1614 (!) 104/58 98.4 F (36.9 C) Temporal 92 18 90 % 05/21/20 1151 (!) 123/52 97.9 F (36.6 C) Temporal 90 20 91 % Average, Min, and Max forlast 24 hours Vitals: TEMPERATURE: Temp Av F (36.7 C) Min: 97.6 F (36.4 C) Max: 98.4 F (36.9 C) RESPIRATIONS RANGE: Resp Av.3 Min: 18 Max: 20 PULSE RANGE: Pulse Av.8 Min: 89 Max: 96 BLOOD PRESSURE RANGE: Systolic (24hrs), Av , Min:93 , Max:123 ; Diastolic (24hrs), Av, Min:40, Max:81 PULSE OXIMETRYRANGE: SpO2 Av % Min: 90 % Max: 95 % No intake/output data recorded. Physical Exam Vitals signs and nursing note reviewed. Constitutional: Appearance: Normal appearance. She is not diaphoretic. HENT: Head: Normocephalic and atraumatic. Eyes: Conjunctiva/sclera: Conjunctivae normal. Cardiovascular: Rate and Rhythm: Normal rate and regular rhythm. Heart sounds: Murmur present. Comments: DP pulses palpable and symmetric Pulmonary: Effort: Pulmonary effort is normal. Breath sounds: Normal breath sounds. No wheezing. Abdominal: General: There is no distension. Palpations: Abdomen is soft. Tenderness: There is abdominal tenderness (mild right sided). There is no guarding or rebound. Comments: obese Musculoskeletal: General: No swelling. Right lower leg: Edema (1+ pitting) present. Left lower leg: Edema (1+ pitting edema ) present. Comments: Moving all extremities Skin: General: Skin is warm and dry. Neurological: General: No focal deficit present. Mental Status: She is alert. Comments: Speech appropriate, answering questions appropriately Psychiatric: Mood and Affect: Mood normal. Behavior: Behavior normal. Thought Content: Thought content normal. PROCEDURES: Perinephric fluid sampling and drain placement 05/16 Perihepatic fluid sampling 05/20 Pigtail catheter removed 05/20 CONSULTANTS: Infectious Disease Urology Gastroenterology DISCHARGE MEDICATIONS: Significant Medication Changes: Ever Mckeon Home Medication Instructions THERESA:[id number] Printed on:05/22/20 6351 Medication Information b complex vitamins capsule Take 1 capsule by mouth daily buPROPion (WELLBUTRIN XL) 300 MG extended release tablet Take 1 tablet by mouth daily citalopram (CELEXA) 40 MG tablet Take 40 mg by mouth daily docusate sodium (COLACE) 100 MG capsule Take 100 mg by mouth 2 times daily as needed for Constipation ferrous sulfate 325 (65 Fe) MG tablet TAKE ONE TABLET BY MOUTH TWO TIMES A DAY. TAKE WITH VITAMIN C lactulose (CHRONULAC) 10 GM/15ML solution Take 15 mLs by mouth 2 times daily Ok to decrease dose if having more than two bowel movements per day. melatonin 3 MG TABS tablet Take 3 mg by mouth nightly as needed Multiple Vitamins-Minerals (MULTIVITAMIN ADULT PO) Take by mouth daily oxyCODONE (ROXICODONE) 5 MG immediate release tablet Take 1 tablet by mouth every 6 hours as needed (Severe pain) for up to 3 days. pantoprazole (PROTONIX) 40 MG tablet Take 1 tablet by mouth every morning (before breakfast) rOPINIRole (REQUIP) 0.5 MG tablet Take 1 tablet by mouth 2 times daily ursodiol (ACTIGALL) 250 MG tablet Take 1 tablet by mouth 3 times daily vitamin C (ASCORBIC ACID) 500 MG tablet TAKE 1/2 OF A TABLET BY MOUTH TWICE DAILY. TAKE WITH IRON vitamin D (ERGOCALCIFEROL) 1.25 MG (55784 UT) CAPS capsule Take 1 capsule by mouth once a week DIET: regular ACTIVITY: resume regular activity SIGNIFICANT DIAGNOSTIC STUDIES: CT abd/pelvis COMPLEXITY OF FOLLOW UP: [] Moderate Complexity: follow up within 7-14 calendar days (65154) [x] Severe Complexity: follow up within 7 calendar days (91728) FOLLOW UP TESTING, PENDING RESULTS ORREFERRALS AT TRANSITIONAL CARE VISIT: [x] Yes [] No DISPOSITION: Home FACILITY/HOME CARE AGENCY NAME: n/a Follow up with Delia Galicia MD to be scheduled within 7 days Notification (telephone encounter) to PCP initiated: [x] Yes [] No INSTRUCTIONS TO MA/SW: Please call patient on day after discharge (must document patient contacted within 2 business days of discharge). FOLLOW UP QUESTIONS FOR MA/SW: 1. Did you get medications filled and takingthem as instructed from discharge? 2. Are you following your discharge instructions from your hospital stay? 3. Please confirm patient is scheduled for a follow up appointment within the above time frame. DISCHARGE TIME: > 30 minutes documented in this encounter Additional Source Comments INFORMATION SOURCE (unrecognized section and content) DATE CREATED AUTHOR AUTHOR'S ORGANIZ ATION 10/14/2018 [facility] DATE CREATED AUTHOR AUTHOR'S ORGANIZATIO N 01/22/2019 [facility] [place] DATE CREATED AUTHOR AUTHOR'S ORGANIZATIO N 02/23/2019 [facility] DATE CREATED AUTHOR AUTHOR'S ORGANIZATIO N 05/17/2020 [facility] DATE CREATED AUTHOR AUTHOR'S ORGANIZATIO N 10/09/2021 [facility] DATE CREATED AUTHOR AUTHOR'S ORGANIZATIO N 08/19/2022 [facility] DATE CREATED AUTHOR AUTHOR'S ORGANIZATIO N 10/17/2022 [facility] DATE CREATED AUTHOR AUTHOR'S ORGANIZATIO N 11/12/2022 [facility] DATE CREATED AUTHOR AUTHOR'S ORGANIZATIO N 11/20/2022 [facility] [place] DATE CREATED AUTHOR AUTHOR'S ORGANIZATIO N 12/30/2022 [facility] ([place] DATE CREATED AUTHOR AUTHOR'S ORGANIZATIO N 01/01/2023 [facility] Reason for Visit (unrecognized section a nd content) Reason Comments Shortness of Breath pt having flu like symtpoms for approx 3 weeks, states she tested negative for covid 2wks ago Fever reports fever of 102 at home , taking ibuprofen and tylenol Cough dry cough non productive Abdominal Pain RUQ pain, severe nause denie s vomiting Reason Comments Abdominal Pain states was seen here last we ek and dx with a bleeding liver and has come back due to worsening p ain; denies any n/v/d Reason Comments Panic Attack Reason Comments Shortness of Breath Reason Comments Missed Appointment New patient missed appointme nt. Reason Comments No Show Pt no showed for appt on 10/26 3 Ordered Prescriptions (unrecognized sect ion and content) Prescription Sig Dispensed Refills Start Date End Date LORazepam (ATIVAN) 1 MG Take 1 tablet by 9 tablet 0 202008/27/2021 tabletIndications: mouth every 8 hours Anxiety state, Shortness as needed for of breath, Shaking Anxiety for up to 3 days. LORazepam (ATIVAN) 1 MG Take 1 tablet by 9 tablet 0 202008/24/2021 tabletIndications: mouth every 8 hours Anxiety state, Shortness as needed for of breath, Shaking Anxiety for up to 3 days. Prescription Sig Dispensed Refills Start Date End Date albuterol sulfate HFA Inhale 2 puffs into 18 g 0 08/11 (PROVENTIL HFA) 108 (90 the lungs every 6 Base) MCG/ACT inhaler hours as needed for Wheezing Scheduled Active and Recently Administered Medicat ions (unrecognized section and content) Medication Order 08/22/2021 08/23/2021 08/24/2021 LORazepam (ATIVAN) injection 1 mg (COMPLETED) 2104 (Given - Provider: Komal Pate, RN) 1 mg, IntraVENous, ONCE, On 08/23/21 at 2045, For 1 dose Scheduled Medication Order 08/09/2022 08/10/2022 08/11/2022 acetaminophen (TYLENOL) tablet 1,000 mg (COMPLETED) 1153 (Given - Provider: Gunnar Black, BECKA) 1,000 mg, Oral, ONCE, 1 dose, On Wed at 1200, Maximum dose of acetaminophen is 4000 mg from all sources in 24 hours. Care Teams (unrecognized section and con tent) Molder Punch Relationship Specialty Start Date End Date Tim Delong, VOICE SYSTEMS ENGINEER - PCP - [place] [id number] Care Team (unrecognized section and cont ent) Care Team Personnel Name: TIM ROBLEDO HAND HIDE STRETCHER Member Role: Primary Care Physician Address: Address: [address] [place] [address] Care Team Personnel Name: TIM ROBLEDO HAND HIDE STRETCHER Member Role: Primary Care Physician Address: Address: [address] [place] [address] Care Team Related Persons Name: VAIBHAV MCKEON Source Comments (unrecognized section an d content) In the event this information is protect ed by the Federal Confidentiality of Alcohol and Drug Abuse Patient Records regulatio ns: This information has been disclosed to you from records protected by Federal co nfidentiality rules ( The Federal rules restrict any use of the information to criminally investigate or prosecute any alcohol or drug abuse patient. [facility] event this information is protected by [facility] Confidentiality of Alcohol and Drug Abuse Patient Records regulations: This information has been disclosed to you from records protected by Federal confid entiality rules ( The Federal rules restrict any use of th e information to criminally investigate or prosecute any alcohol or drug abuse trisha ent. [facility] FOR RECORDS PERTAINING TO PATIENTS WHO ARE OR HAVE BEEN ENROLLED IN A CHEMICAL DEPENDENCY/SUBSTANCE ABUSE PROGRAM, SOME INFORMATION MAY BE OMITTED. This clinical summary was aggregated from multiple sources. Caution should be exercised in using it in the provision of clinical care. This summary normalizes information from multiple sources, and as a consequence, information in this document may materially change the coding, format and clinical context of patient data. In addition, data may be omittedin some cases. CLINICAL DECISIONS SHOULD BE BASED ON THE PRIMARY CLINICAL RECORDS. [facility]. provides no warranty or guarantee of the accuracy or completeness of information in this document.
--- NOTE | 2023-01-02 15:36 | EDS_ITS ---
HPI History of Present Illness Chief Complaint: Confusion Detail of Chief Complaint: Disorientation Informant: patient Onset/Context/Timing Onset: - (Unknown) Context: - (Unknown) Timing: Continuous (Presumed) Quality: Patient was recently admitted to [facility] for hepatic encephalopathy Location: Per triage patient presents from home Current Severity: Moderate Maximum Severity: Moderate Worsened by: Based on outside records patient has history of noncompliance Relieved by: Nothing Associated Symptoms Associated Symptoms: Unable to determine Narrative Narrative: Patient is a 52-year-old woman with history of hepatic encephalopathy with history of noncompliance. Presently patient is disoriented to time and place. She is unable to answer questions. She made the comment I should contact my brother . Per records from outside facility her brother's name is Vaibhav Esposito has attempted to care for her but has been unsuccessful. He made comment to the emergency physician at outside facility that he cannot longer care for her. 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 Furthermore there is a history of alcoholism. She had received 3 doses of lactulose prior to them obtaining a second ammonia level which was 90. Renal function was unremarkable. White count was 6000. During her hospital stay she had a drop in her white count to 3.1 thousand with 44% segs 32% lymphs 14% monocytes and 7.7% eosinophils. A COVID test was obtained and was negative. The COVID test was obtained on 12 29. Patient's ammonia level on December 27 was 114. Prior similar symptoms: Yes Recent Illness/Hospitalization: Yes [facility] Medical History Acidosis Alcohol abuse Alcohol use Alcoholic cirrhosis of liver without ascites Anxiety and depression Bipolar disorder Cirrhosis Easy bruising Edema Essential (primary) hypertension Former smoker Gastric reflux Hepatic encephalopathy Hepatitis History of edema History of IBS History of pain when walking Hx of scarlet fever Immunity status testing Iron deficiency anemia Lactic acidosis Low urine output Pancytopenia Portal hypertension Post-menopausal Restless legs Shortness of breath on exertion Splenomegaly Thrombocytopenia Urea cycle metabolism disorder UTI (urinary tract infection) Wears dentures Wears glasses Home Medications citalopram 40 mg tablet 40 mg PO DAILY depression 10/28/22 [History Last Taken Unknown] furosemide 20 mg tablet 20 mg PO TID diuretic 10/28/22 [History Last Taken Unknown] prazosin 2 mg capsule 3 mg PO QHS sleep 10/28/22 [History Last Taken Unknown] propranolol 10 mg tablet 20 mg PO TID tremors 10/28/22 [History Last Taken Unknown] quetiapine 50 mg tablet (Seroquel) 100 mg PO QHS sleep 10/28/22 [History Last Taken Unknown] rifaximin 550 mg tablet (Xifaxan) 550 mg PO BID cirrhosis 10/28/22 [History Last Taken Unknown] bupropion HCl 300 mg 24 hr tablet, extended release 300 mg PO DAILY depression 11/18/22 [History Last Taken Unknown] ferrous sulfate 325 mg (65 mg iron) tablet 325 mg PO QODAY supplement #30 tabs 11/20/22 [Rx Last Taken Unknown] lactulose 10 gram/15 mL oral solution 30 ml PO TID cirrhosis #473 mL 11/20/22 [Rx Last Taken Unknown] spironolactone 25 mg tablet 50 mg PO DAILY 30 days #60 tabs 11/20/22 [Rx Last Taken Unknown] diazepam 10 mg tablet (Valium) 10 mg PO .COMPLEX #1 TAB 12/15/22 [Rx Last Taken Unknown] ursodiol 300 mg capsule 300 mg PO BID #180 caps 12/15/22 [Rx Last Taken Unknown] buspirone 10 mg tablet 10 - 20 mg PO TID PRN PRN Anxiety 12/17/22 [History Last Taken Unknown] ondansetron 4 mg disintegrating tablet 4 mg PO PRN PRN Nausea 12/17/22 [History Last Taken Unknown] Allergy/AdvReac Type Severity Reaction Status Date / Time No Known Allergies Allergy Verified 01/02/23 15:42 Family History (Reviewed 12/10/22 @ 14:16 by Lily Miller SENIOR PRINCIPAL ARCHITECT, SENIOR PRINCIPAL ARCHITECT-C) Grandmother Breast cancer Surgical History History of ankle surgery Hx of section Hx of cholecystectomy Hx of hand surgery Hx of shoulder surgery Hx of total knee replacement Social History Smoking Status: Former smoker Electronic Cigarette Use: with nicotine how long ago did patient quit smoking: Transitioned from cig tob to vaping, heavy currently. alcohol intake: former year quit: 2021 details: 11/26/21 substance use type: other details: Former amphetamine/meth use, clean since 11/26/21. ROS ROS ED Review of Systems ROS Unobtainable: due to mental status EXAM Physical Exam Const Vital Signs: 01/02/23 14:47 01/02/23 15:38 01/02/23 16:03 Temperature 96.7 F L Temperature Source Temporal Pulse Rate 61 62 65 Respiratory Rate 18 13 15 Blood Pressure 135/62 H 117/58 L 117/49 L Blood Pressure Mean 86 77 71 Pulse Ox 97 95 97 Oxygen Delivery Method Room Air Room Air Room Air Positive well nourished, well developed, obese and unkempt General Appearance ED: unkempt, well developed and NAD; Negative for cyanotic, diaphoretic or pallor Nutritional Appearance: obese HEENT Reports dry mucous membranes HEENT Narrative: Head is atraumatic normocephalic. Ears are normal. TMs are normal. Nares patent. Uvula is midline. Posterior pharynx is unremarkable. Mouth ED: Yes dry mucous membranes Mouth: dry mucous membranes Eyes PERRL and EOMs intact bilaterally General Eye ED: Negative for pale conjunctiva or scleral icterus Neck no lymphadenopathy, supple and no JVD Neck Narrative: Trachea is midline. There is no sore: Adenopathy Chest Wall inspection of chest normal and palpation of chest normal Resp normal respiratory effort and clear to auscultation bilaterally Cardio regular rate, regular rhythm, S1 normal heart sound, S2 normal heart sound and no murmurs GI normal to inspection, nondistended, normoactive bowel sounds, non-tender, non- distended and no masses; Negative for hepatosplenomegaly Palpation: soft Back/Spine no CVA tenderness Cervical Spine: Negative for cervical spine tenderness Thoracic Spine / Upper Back: Negative for thoracic spinal tenderness Lumbar Spine / Lower Back: Negative for lumbar spinal tenderness Extremity normal to inspection Psych Psych Narrative: Slow psychomotor skills Appearance: unkempt Skin no rashes or lesions noted, no wounds and skin turgor normal General Skin Exam: Negative for jaundice or pallor Lesions: No lesion noted Rashes: No rashes noted Trauma: Negative for abrasion MDM MDM MDM Narrative Medical decision making narrative: Patient is presently disoriented. Need to rule out metabolic versus infectious cause. Cath urine was ordered to assess for evidence infection, ketones and specific gravity. Comprehensive metabolic panel was obtained to assess electrolytes, renal function, glucose since CO2 anion gap. Liver enzymes were ordered and we will compare to outside facility. Lipase was ordered. Ammonia level was ordered as well since #1 concern is hepatic encephalopathy based on review of outside records. Since she is not tachycardic, tachypneic and O2 sat is normal with a normal auscultatory exam of the chest x-ray was not obtained. Patient will receive lactulose in the emergency department. History & Record Review Discussion w/independent historian: Patient Additional record(s) reviewed:: Prior inpatient record (From outside facilities [facility]. Patient was discharged yesterday from facility.), Prior outpatient record, Prior ED visit and Prior labs Lab Data Attestation: I reviewed the patient's lab results. Lab results narrative: Patient is neutropenic. There is no bandemia. Patient has predominance of monocytes and eosinophils as noted at outside facility earlier this month. Comprehensive metabolic panel reveals slight elevation of chloride 109. BUN and creatinine are normal with a BUN/creatinine ratio of 21:1. Glucose is normal. Alkaline phosphatase is slight elevated 171. Total protein and albumin are low at 6.3 and 2.8 respectively. Ammonia is 119. With no significant change in blood work compared to earlier this month other than the ammonia level diagnosis is hepatic encephalopathy. Awaiting UA to rule out concomitant urinary tract infection. Urine microscopic is negative. Labs: Laboratory Results - last 24 hr 01/02/23 01/02/23 01/02/23 15:31 15:38 15:38 WBC 3.5 L RBC 4.31 Hgb 13.2 Hct 39.7 MCV 92.1 MCH 30.6 MCHC 33.2 RDW Std Deviation 49.6 H RDW Coeff of Stephon 14.8 H Plt Count 76 L MPV 10.4 Immature Gran % (Auto) 0.300 Neut % (Auto) 52.2 Lymph % (Auto) 21.6 [place] % (Auto) 15.9 H Eos % (Auto) 9.1 H Baso % (Auto) 0.9 Absolute Neuts (auto) 1.8 L Absolute Lymphs (auto) 0.76 L Nucleated RBC % 0 Sodium 141 Potassium 4.1 Chloride 109 H Carbon Dioxide 27.0 Anion Gap 5 BUN 13 Creatinine 0.62 Estim Creat Clear Calc 100.87 Est GFR (MDRD) Af Amer 129 Est GFR (MDRD) Non-Af 107 BUN/Creatinine Ratio 21.0 H Glucose 79 Calcium 9.1 Total Bilirubin 0.80 AST 37 ALT 32 Alkaline Phosphatase 171 H Ammonia Total Protein 6.3 L Albumin 2.8 L Globulin 3.5 Albumin/Globulin Ratio 0.8 L Lipase 227 Urine Color Urine Clarity Urine pH Ur Specific [place] Urine Protein Urine Glucose (UA) Urine Ketones Urine Occult Blood Urine Nitrite Urine Bilirubin Urine Urobilinogen Ur Leukocyte Esterase Urine RBC Urine WBC Ur Squamous Epith Cells Urine Bacteria Urine Mucus POC Glucose 71 L 01/02/23 01/02/23 15:38 16:11 WBC RBC Hgb Hct MCV MCH MCHC RDW Std Deviation RDW Coeff of Stephon Plt Count MPV Immature Gran % (Auto) Neut % (Auto) Lymph % (Auto) [place] % (Auto) Eos % (Auto) Baso % (Auto) Absolute Neuts (auto) Absolute Lymphs (auto) Nucleated RBC % Sodium Potassium Chloride Carbon Dioxide Anion Gap BUN Creatinine Estim Creat Clear Calc Est GFR (MDRD) Af Amer Est GFR (MDRD) Non-Af BUN/Creatinine Ratio Glucose Calcium Total Bilirubin AST ALT Alkaline Phosphatase Ammonia 119.0 H Total Protein Albumin Globulin Albumin/Globulin Ratio Lipase Urine Color Elena Urine Clarity Clear Urine pH 6.0 Ur Specific [place] 1.020 Urine Protein Negative Urine Glucose (UA) Normal Urine Ketones 5 H Urine Occult Blood Negative Urine Nitrite Negative Urine Bilirubin Negative Urine Urobilinogen 4 H Ur Leukocyte Esterase 25 H Urine RBC 0 SEEN Urine WBC 0 SEEN Ur Squamous Epith Cells 0-5 SEEN Urine Bacteria 0 SEEN Urine Mucus 0 SEEN POC Glucose Discharge Plan Triage Chief Complaint: Confusion ED Provider: Bhavesh Simmons Dx/Rx/DC Orders Clinical Impression: Acute hepatic encephalopathy, Depression, Neutropenia, Eosinophilia, unspecified Prescriptions: No Action furosemide 20 mg tablet 20 mg PO TID propranolol 10 mg tablet 20 mg PO TID Xifaxan 550 mg tablet 550 mg PO BID Label Comments: TAKE 1 TABLET BY MOUTH TWICE DAILY citalopram 40 mg tablet 40 mg PO DAILY prazosin 2 mg capsule 3 mg PO QHS Label Comments: take 1 capsule by mouth at bedtime; 1 hour before bedtime quetiapine [Seroquel] 50 mg tablet 100 mg PO QHS bupropion HCl 300 mg tablet extended release 24 hr 300 mg PO DAILY Label Comments: take 1 tablet by mouth once daily spironolactone 25 mg Tablet 50 mg PO DAILY 30 Days Qty: 60 2RF Rx Instructions: Hold if serum potassium more than 5.0. ferrous sulfate 325 mg (65 mg iron) tablet 325 mg PO QODAY Qty: 30 0RF lactulose 10 gram/15 mL solution 30 ml PO TID Qty: 473 2RF Rx Instructions: Titrate the dose of lactulose to have a goal of 2-3 soft bowel movements per day buspirone 10 mg tablet 10 - 20 mg PO TID PRN PRN (Reason: Anxiety) Label Comments: take 2 tablets by mouth three times a day if needed ondansetron 4 mg tablet,disintegrating 4 mg PO PRN PRN (Reason: Nausea) ursodiol 300 mg capsule 300 mg PO BID Qty: 180 3RF diazepam [Valium] 10 mg tablet 10 mg PO .COMPLEX Qty: 1 0RF Rx Instructions: take 1 hour prior to MRI Primary Care Provider: Luz Dhaliwal NP Referrals: Luz Dhaliwal NP, SENIOR PRINCIPAL ARCHITECT-C [Primary Care Provider] - Disposition Disposition: Acute Care Hospital [facility]
--- OUTSIDE RECORDS SUMMARY | 2023-01-02 15:45 | XMS RPT_ITS | CCD ---
:1970 [facility] Organization [facility] [place] Care Team Providers Name Role Phone Saw Torres Unavailable Unavailable PROVIDER, UNKNOWN Unavailable Unavailable [...] Unavailable MEENA TOUSSAINT TIM Primary Care Physician [phone] TIM DELONG Attending Unavailable Unavailable Primary Care [...] CONSTANTINE JACOBSON MD Attending Unavailable LYNDSEY JARRELL TEMPLATE REPRODUCTION TECHNICIAN Admitting Unavailable LYNDSEY JARRELL NP Primary Care Unavailable LYNDSEY JARRELL TEMPLATE REPRODUCTION TECHNICIAN Attending Unavailable LOIS MELGAR MD Admitting Unavailable [...] MINOPHEN] Dicyclomine Drug All[facility] (8 sources) [address] [place] [address]- [place], [place] Medications Current Medications Medication Drug Class(es) Dates Sig (Normalized) Sig (Orig inal) [id number] 200 actuat albuterol 0.09 mg/actuat metered dose inhaler beta2-Adrenergic Start: take 2 puff(s) by albuterol sulfate (1 source) Agonist 08-11-2022 inhalation every six HFA (MT OVENTIL hours as needed for HFA) 108 [...] 02/16/2019 05/16/2020 Discontin ued (LIST CLEANUP) b eoklazt-N-O-zinc (STRESS FORMULA W/ ZINC) 1 tablet S [...] (generalized anxiety anxiety disorder) , Mood disorder ([facility]) TAKE 1 TO 2 TA BLETS BY [...] in the morning Indications: Mood d isorder ([facility]) Take 1 tablet by starr th every [...] 30 tab(s), 0 Refill(s), Pharmacy: [facility] #[id number], 165, cm, 08/15 11:32:00 EST, Height Start [...] tab(s), 0 Refill(s), Phar prashant: [facility] #[id number], 165 , cm, 10/03/22 11:32: 00 EST, [...] 0 Refill(s), 12/02/22 7:43:0 0 EST, Pharmacy: [facility] y 1724, 165.1, cm , 10/31/22 1:25:0 0 EST, Height Sta rt Date: 11/02/22 St op Date: 12/02/22 Status: Ordered Start: 10-07-2022 take 1 dose by mouth every six lactulose 10 g/15 mL oral syrup Dose End: 11-06-2022 hours : 30 gram(s) = 45 mL , Oral, q6h, X 30 day(s), # 5,400 m L, 0 Refill(s), 11/06/22 11:45:00 ES T, Pharmacy: [facility] #[id number], 165 , cm, 10/03/22 11:32:00 EST, Height [...] not crush or break. polyethylene glycol 3350 53700 mg powder for oral solution O smotic [...] TID, # 90 tab(s), 0 Refill(s), Pharmacy: [facility] #[id number], 165 , cm, 10/03/22 11:32:00 EST, Height [...] Start Date: 10/31/22 St atus: Ordered sennosides, shelter 8.6 mg oral tablet Start: 05-11-2020 senna [...] as Pain Moderate (4-6), needed for Starting [facility] pain at 0205 Maximum dose of acetaminophe [...] End: 05-17-2020 0230 Start: 05-07-2020 lactated [facility]ers [facility] End: 05-08-2020 cefTRIAXone (ROCEPHIN) 1 g IVPB in 50 mL D5W minibag S tart: 05-08-2020 cefTRIAXone (1 source) End: 05-08-2020 (ROCEPHIN) 1 g IVPB in 50 mL D 5W minibag docusate sodium 50 mg / sennosides, shelter 8.6 mg oral tablet Start: 05-19-2020 sennosides-docusat (1 source) End: 05-21-2020 e sodium (SENOKOT-S) 8.6 -50 MG tablet 2 tab let ergocalciferol 1.25 mg oral capsule Provitamin D2 Start: 05-27-2020 take 1 vitamin D (6 sources) Compound End: 08-23-2021 capsule by (ERGOCALCIFE ROL) mouth every 1.25 MG (01705 UT) week CAPS capsule Ta ke 1 capsule by mo ut once a week 5 capsule 0 05/27/2020 08/23/2021 Discontinued (L IST CLEANUP) Start: 05-27-2020 take 1 capsule by mouth every vitamin D (ERGOCALCIFEROL) 1.25 MG week (33905 UT) CAPS caps ule Take 1 capsule [...] primary osteoarthritis, left knee] Other aftercare Other machine long goods helper Onset: Episodic (1 source) (current) drug therapy; Translations: 3 [Other machine long goods helper (current) drug therapy] Other bone disease and [...] elsewhere classified] Other liver diseases Primary biliary Culinary Specialist robyn (1 source) cholangitis; Translations: [Primary biliary [...] x10EE3/UL Normal 0.00 - 0.10 [facility] Comment on above: Performed By: #### [id number] ## ##[facility],[address] [place] [address] Basophils/100 WBC (Bld) 0.8 % Normal 0.0 - 2.0 [facility] Comment on above: Performed By: #### [id number] ## ##[facility],[address] [place] [address] CBC + DIFF DAILY Normal [place] Comment on above: Result Comment: CBC-COMPLETE BLOOD COUNT Performed By: #### [id number] ## ##[facility],[address] [place] [address] EO # 0.20 x10EE3/UL Normal 0.00 - 0.50 [facility] Comment on above: Performed By: #### [id number] ## ##[facility],[address] [place], [place] [id number] Eosinophils/100 WBC (Bld) 7.7 % High 0.0 - 7.0 [facility] Comment on above: Performed By: #### [id number] ## ##[facility],[address] [place] [address] Erythrocyte distribution width 16.1 % High 12.0 - 15. 6 [facility] (RBC) [Ratio] Hospital Comment on above: Performed By: #### [id number] ## ##[facility],[address] [place] [address] Hematocrit (Bld) [Volume 36.8 % Normal 34.0 - 46.0 [facility]] [facility] Comment on above: Performed By: #### [id number] ## ##[facility],[address] [place], [place] [address] Hemoglobin (Bld) [Mass/Vol] 12.2 g/dL Normal 12.0 - 16.0 [facility] Comment on above: Performed By: #### [id number] ## ##[facility],[address] [place] [address] Lymph # 1.00 x10EE3/UL Normal 0.80 - 2.80 [facility] Comment on above: Performed By: #### [id number] ## ##[facility],[address] [place] [address] Lymphocytes/100 WBC (Bld) 32.5 % Normal 20.0 - 45.0 [facility] Comment on above: Performed By: #### [id number] ## ##[facility],[address] [place] [address] MANUAL DIFF N/A Normal [facility] Comment on above: Performed By: #### [id number] ## ##[facility],[address] [place] [address] MCH (RBC) [Entitic mass] 31 pg Normal 27 - 33 [facility] Comment on above: Performed By: #### [id number] ## ##[facility],[address] [place] [address]77[address] MCHC 33 X10 3 Normal 32 - 36 [facility] Comment on above: Performed By: #### [id number] ## ##[facility],[address] [place] [address] 77813 MCV (RBC) [Entitic vol] 92 fL Normal 80 - 99 [facility] Comment on above: Performed By: #### [id number] ## ##[facility],[address] [place] [address] 01589 Luna # 0.40 x10EE3/UL Normal 0.20 - 1.00 [facility] Comment on above: Performed By: #### [id number] ## ##[facility],[address] [place] [address] 63861 MONOS % 14.4 % High 0.0 - 10.0 [facility] Comment on above: Performed By: #### [id number] ## ##[facility],[address] [place] [address] 50518 Morphology Giovanni (Bld) [Interp] N/A Normal [facility] Comment on above: Performed By: #### [id number] ## ##[facility],[address] [place] [address] 30588 Neut # 1.40 x10EE3/UL Low 1.50 - 7.10 [facility] Comment on above: Performed By: #### [id number] ## ##[facility],[address] [place] [address] 17480 Neutrophils/100 WBC (Bld) 44.6 % Low 46.0 - 76.0 [facility] Comment on above: Performed By: #### [id number] ## ##[facility],[address] [place] [address] 14673 PLATELET 78 x10EE3/UL Low 150 - 450 [facility] Comment on above: Performed By: #### [id number] ## ##[facility],[address] [place] [address] 03982 Platelet mean volume (Bld) 9.1 fL Normal 6.6 - 10.5 [facility] [[facility]] [facility] Comment on above: Result Comment: AUTOMATED DI FFERENTIAL Performed By: #### [id number] ## ##[facility],[address] [place] [address] 32997 RBC 3.99 x 10EE6/UL Low 4.10 - 5.30 [facility] Comment on above: Performed By: #### [id number] ## ##[facility],[address] [place] [address] 23947 WBC 3.1 x 10EE3/UL Low 4.5 - 10.8 [facility] Comment on above: Performed By: #### [id number] ## ##[facility],[address] [place] [address] CBC + DIFF DAILY on 12-31-2022 CBC + DIFF DAILY Normal [place] Comment on above: Result Comment: CBC-COMPLETE BLOOD COUNT Performed By: #### [id number] ## ## [facility],[address] [place] [address] CELL COUNT 100 Normal [facility] Comment on above: Performed By: #### [id number] ## ## [facility],[address] [place] [address] EO 8.0 % High 0.0 - 4.0 [facility] Comment on above: Performed By: #### [id number] ## ## [facility],[address] [place] [address] Erythrocyte distribution width 16.5 % High 12.0 - 15. 6 [facility] (RBC) [Ratio] [facility] Comment on above: Performed By: #### [id number] ## ## [facility],[address] [place] [address] Hematocrit (Bld) [Volume 38.3 % Normal 34.0 - 46.0 [facility] Comment on above: Performed By: #### [id number] ## ## [facility],[address] [place] [address] Hemoglobin (Bld) [Mass/Vol] 12.7 g/dL Normal 12.0 - 16.0 [facility] Comment on above: Performed By: #### [id number] ## ## [facility],[address] [place] [address] Lymphocytes/100 WBC (Bld) 24 % Normal 20 - 40 [facility] Comment on above: Performed By: #### [id number] ## ## [facility],[address] [place] [address] MANUAL DIFF SEE BELOW Normal [facility] Comment on above: Performed By: #### [id number] ## ## [facility],[address] [place] [address] MCH (RBC) [Entitic mass] 30 pg Normal 27 - 33 [facility] Comment on above: Performed By: #### [id number] ## ## [facility],[address] [place] [address] MCHC 33 X10 3 Normal 32 - 36 [facility] Comment on above: Performed By: #### [id number] ## ## [place] [address] MCV (RBC) [Entitic vol] 92 fL Normal 80 - 99 [facility] Comment on above: Performed By: #### [id number] ## ## [facility],[address] [place] [address] MONOS 11 % High 0 - 8 [facility] Comment on above: Performed By: #### [id number] ## ## [place] [address] Morphology Giovanni (Bld) [Interp] REVIEWED Normal [facility] Comment on above: Performed By: #### [id number] ## ## [place] [address] PLATELET 79 x10EE3/UL Low 150 - 450 [facility] Comment on above: Performed By: #### [id number] ## ## [place] [address] Platelet mean volume (Bld) 8.4 fL Normal 6.6 - 10.5 [facility] [Entitic vol] [facility] Comment on above: Result Comment: AUTOMATED DI FFERENTIAL Performed By: #### [id number] ## ## [address],[place] [address] RBC 4.17 x 10EE6/UL Normal 4.10 - 5.30 [facility] Comment on above: Performed By: #### [id number] ## ## [facility],[address] [place] [address] 24222 SEGS 57 % Normal 50 - 70 [facility] Comment on above: Performed By: #### [id number] ## ## [facility],[address] [place] [address] 89891 WBC 3.6 x 10EE3/UL Low 4.5 - 10.8 [facility] Comment on above: Performed By: #### [id number] ## ## [facility],[address] [place], [place] [id number] CBC + DIFF DAILY on 12-30-2022 CBC + DIFF DAILY Normal [place] Comment on above: Result Comment: CBC-COMPLETE BLOOD COUNT Performed By: #### [id number] ## ## [facility],[address] [place] [address] 66496 EO 8.0 % High 0.0 - 4.0 [facility] Comment on above: Performed By: #### [id number] ## ## [facility],[address] [place] [address] 47185 EO # 0.30 x10EE3/UL Normal 0.00 - 0.50 [facility] Comment on above: Performed By: #### [id number] ## ## [facility],[address] [place] [address] 71457 Erythrocyte distribution width 15.7 % High 12.0 - 15. 6 [facility] (RBC) [Ratio] [facility] Comment on above: Performed By: #### [id number] ## ## [facility],[address] [place] [address] 26112 Hematocrit (Bld) [Volume 37.3 % Normal 34.0 - 46.0 [facility] Comment on above: Performed By: #### [id number] ## ## [facility],[address] [place] [address] Hemoglobin (Bld) [Mass/Vol] 12.3 g/dL Normal 12.0 - 16.0 [facility] Comment on above: Performed By: #### [id number] ## ## [facility],[address] [place] [address] Lymph # 1.30 x10EE3/UL Normal 0.80 - 2.80 [facility] Comment on above: Performed By: #### [id number] ## ## [facility],[address] [place] [address] Lymphocytes/100 WBC (Bld) 38 % Normal 20 - 40 [facility] Comment on above: Performed By: #### [id number] ## ## [facility],[address] [place] [address] MANUAL DIFF SEE BELOW Normal [facility] Comment on above: Performed By: #### [id number] ## ## [facility],[address] [place] [address] MCH (RBC) [Entitic mass] 29 pg Normal 27 - 33 [facility] Comment on above: Performed By: #### [id number] ## ## [facility],[address] [place] [address] MCHC 33 X10 3 Normal 32 - 36 [facility] Comment on above: Performed By: #### [id number] ## ## [facility],[address] [place], [place] [id number] MCV (RBC) [Entitic vol] 89 fL Normal 80 - 99 [facility] Comment on above: Performed By: #### [id number] ## ## [facility],[address] [place] [address] Luna # 0.30 x10EE3/UL Normal 0.20 - 1.00 [facility] Comment on above: Performed By: #### [id number] ## ## [facility],[address] [place] [address] 13836 MONOS 8 % Normal 0 - 8 [facility] Comment on above: Performed By: #### [id number] ## ## [facility],[address] [place] [address] 73670 Morphology Giovanni (Bld) [Interp] NORMAL Normal [facility] Comment on above: Performed By: #### [id number] ## ## [facility],[address] [place] [address] 97140 Neut # 1.50 x10EE3/UL Normal 1.50 - 7.10 [facility] Comment on above: Performed By: #### [id number] ## ## [facility],[address] [place] [address] 40134 PLATELET 72 x10EE3/UL Low 150 - 450 [facility] Comment on above: Performed By: #### [id number] ## ## [facility],[address] [place] [address] 88880 Platelet mean volume (Bld) 8.4 fL Normal 6.6 - 10.5 [facility] [[facility] Comment on above: Result Comment: AUTOMATED DI FFERENTIAL Performed By: #### [id number] ## ## [facility],[address] [place] [address] 98363 RBC 4.18 x 10EE6/UL Normal 4.10 - 5.30 [facility] Comment on above: Performed By: #### [id number] ## ## [facility],[address] [place] [address] 54519 SEGS 46 % Low 50 - 70 [facility] Comment on above: Performed By: #### [id number] ## ## [facility],[address] [place] [address] 84449 WBC 3.3 x 10EE3/UL Low 4.5 - 10.8 [facility] Comment on above: Performed By: #### [id number] ## ## [facility],[address] [place], [place] [id number] EMERGENCY REPORT on 12-30-2022 EMERGENCY REPORT [facility] Normal [facility] EMERGENCY ROOM REPORT NAME ACCOUNT SEX AGE ADMIT DISCHARGE PT MED. RECORD# NUMBER DATE DATE TYPE LINDA [id number] F 52 12/22/22 3 [facility] [id number] ROOM: ER DATE OF : 1970 DICTATING [...] fairly well. She had been admitted to [place] over a month ago and to [place] several weeks ago. He states that she [...] room. She was apparently playing in the [employer] and seemed very confused and uncooperative. He [...] this she is supposed to go to [place] . He did not know the name [...] does not appear in any distress. SKIN: [place], warm and dry. HEENT: Normal. NECK: Supple. [...] Paulo Garcia MD 12/22/22 20:51 JOB #: [id number] Transcribed By: irwin 12/22/22 21:52 Electronically signed by: NORBERT Garcia M.D. 12/30/22 07:05 Page 2 of 2 [facility] Report CBC + DIFF DAILY on 12-29-2022 Baso # 0.00 x10EE3/UL Normal 0.00 - 0.10 [facility] Comment on above: Performed By: #### [id number] ## ##[facility],[address] [place] [address] 39850 Basophils/100 WBC (Bld) 1.5 % Normal 0.0 - 2.0 [facility] Comment on above: Performed By: #### [id number] ## ##[facility],[address] [place] [address] 72158 CBC + DIFF DAILY Normal [place] Comment on above: Result Comment: CBC-COMPLETE BLOOD COUNT Performed By: #### [id number] ## ##[facility],[address] [place] [address] 83269 EO # 0.30 x10EE3/UL Normal 0.00 - 0.50 [facility] Comment on above: Performed By: #### [id number] ## ##[facility],[address] [place] [address] 43903 Eosinophils/100 WBC (Bld) 8.6 % High 0.0 - 7.0 [facility] Comment on above: Performed By: #### [id number] ## ##[facility],[address] [place] [address] 27805 Erythrocyte distribution width 16.1 % High 12.0 - 15. 6 [facility] (RBC) [Ratio] [facility] Comment on above: Performed By: #### [id number] ## ##[facility],[address] [place] [address] 65976 Hematocrit (Bld) [Volume 38.7 % Normal 34.0 - 46.0 [facility] Comment on above: Performed By: #### [id number] ## ##[facility],[address] [place] [address] 61090 Hemoglobin (Bld) [Mass/Vol] 12.7 g/dL Normal 12.0 - 16.0 [facility] Comment on above: Performed By: #### [id number] ## ##[place] [address] Lymph # 0.90 x10EE3/UL Normal 0.80 - 2.80 [facility] Comment on above: Performed By: #### [id number] ## ##[place] [address] Lymphocytes/100 WBC (Bld) 30.0 % Normal 20.0 - 45.0 [facility] Comment on above: Performed By: #### [id number] ## ##[place] [address] MANUAL DIFF N/A Normal [facility] Comment on above: Performed By: #### [id number] ## ##[place] [address] MCH (RBC) [Entitic mass] 30 pg Normal 27 - 33 [facility] Comment on above: Performed By: #### [id number] ## ##[place] [address] MCHC 33 X10 3 Normal 32 - 36 [facility] Comment on above: Performed By: #### [id number] ## ##[place] [address] MCV (RBC) [Entitic vol] 91 fL Normal 80 - 99 [facility] Comment on above: Performed By: #### [id number] ## ##[place] [address] Luna # 0.40 x10EE3/UL Normal 0.20 - 1.00 [facility] Comment on above: Performed By: #### [id number] ## ##[place] [address] MONOS % 14.6 % High 0.0 - 10.0 [facility] Comment on above: Performed By: #### [id number] ## ##[facility],[address] [place] [address] 34621 Morphology Giovanni (Bld) [Interp] N/A Normal [facility] Comment on above: Performed By: #### [id number] ## ##[facility],[address] [place] [address] 74613 Neut # 1.40 x10EE3/UL Low 1.50 - 7.10 [facility] Comment on above: Performed By: #### [id number] ## ##[facility],[address] [place] [address] Neutrophils/100 WBC (Bld) 45.3 % Low 46.0 - 76.0 [facility] Comment on above: Performed By: #### [id number] ## ##[place] [address] PLATELET 67 x10EE3/UL Low 150 - 450 [facility] Comment on above: Performed By: #### [id number] ## ##[facility],[address] [place] [address] Platelet mean volume (Bld) 9.0 fL Normal 6.6 - 10.5 [facility] [[facility]] [facility] Comment on above: Result Comment: AUTOMATED DI FFERENTIAL Performed By: #### [id number] ## ##[facility],[address] [place] [address] 56819 RBC 4.23 x 10EE6/UL Normal 4.10 - 5.30 [facility] Comment on above: Performed By: #### [id number] ## ##[facility],[address] [place], [place] [phone] WBC 3.0 x 10EE3/UL Low 4.5 - 10.8 [facility] Comment on above: Performed By: #### [id number] ## ##[facility],[address] [place] [address] CORONAVIRUS (SARS) ANTIGEN TEST on EXTERNAL QC DONE? YES Normal [facility] Comment on above: Performed By: #### [id number] ## ## [facility],[address] [place] [address] 29006 INTERNAL CONTROL PASS Normal [place] Comment on above: Performed By: #### [id number] ## ## [facility],[address] [place] [address],[facility] [address] SARS ANTIGEN Negative Normal NORMAL: NEGATIVE [place] Comment on above: Performed By: #### [id number] ## ## [facility],[address] [place], [place] [id number] SEND TO IC? YES Normal [facility] Comment on above: Result Comment: SARS-CoV-2 THIS TEST IS BEING USED UNDE R THE FDA EUA PROCEDURE. THIS ASSAY HAS BEEN VALIDATED AT [facility] FOR USE WITH NASAL AND NASOPHARYNGEAL [...] WITH PUBLIC HEALTH AUTHORITIES. Performed By: #### [id number] ## ## [facility],[address] [place], [place] [phone] AMMONIA on 12-28-2022 Ammonia (P) [Moles/Vol] 100.0 umol/L High 11.0 - 32.0 [facility] Comment on above: Performed By: #### [id number] ## ## [place] [address] CBC + DIFF DAILY on 12-28-2022 Baso # 0.00 x10EE3/UL Normal 0.00 - 0.10 [facility] Comment on above: Performed By: #### [id number] ## ## [address] [address] Basophils/100 WBC (Bld) 1.0 % Normal 0.0 - 2.0 [facility] Comment on above: Performed By: #### [id number] ## ## [address] [address] CBC + DIFF DAILY Normal [place] Comment on above: Result Comment: CBC-COMPLETE BLOOD COUNT Performed By: #### [id number] ## ## [address] [address] EO # 0.30 x10EE3/UL Normal 0.00 - 0.50 [facility] Comment on above: Performed By: #### [id number] ## ## [address] [address] Eosinophils/100 WBC (Bld) 8.9 % High 0.0 - 7.0 [facility] Comment on above: Performed By: #### [id number] ## ## [facility],[address] [place] [address] Erythrocyte distribution width 16.6 % High 12.0 - 15. 6 [facility] (RBC) [Ratio] Hospital Comment on above: Performed By: #### [id number] ## ## [facility],[address] [place] [address] Hematocrit (Bld) [Volume 37.6 % Normal 34.0 - 46.0 [facility] Comment on above: Performed By: #### [id number] ## ## [facility],[address] [place] [address] Hemoglobin (Bld) [Mass/Vol] 12.5 g/dL Normal 12.0 - 16.0 [facility] Comment on above: Performed By: #### [id number] ## ## [facility],[address] [place] [address] Lymph # 1.00 x10EE3/UL Normal 0.80 - 2.80 [facility] Comment on above: Performed By: #### [id number] ## ## [place] [address] Lymphocytes/100 WBC (Bld) 33.6 % Normal 20.0 - 45.0 [facility] Comment on above: Performed By: #### [id number] ## ## [facility],[address] [place] [address] MANUAL DIFF REVIEWED Normal [facility] Comment on above: Performed By: #### [id number] ## ## [facility],[address] [place] [address] MCH (RBC) [Entitic mass] 30 pg Normal 27 - 33 [facility] Comment on above: Performed By: #### [id number] ## ## [facility],[address] [place], [place] [id number] MCHC 33 X10 3 Normal 32 - 36 [facility] Comment on above: Performed By: #### [id number] ## ## [facility],[address] [place] [address] 18473 MCV (RBC) [Entitic vol] 91 fL Normal 80 - 99 [facility] Comment on above: Performed By: #### [id number] ## ## [facility],[address] [place] [address] Luna # 0.40 x10EE3/UL Normal 0.20 - 1.00 [facility] Comment on above: Performed By: #### [id number] ## ## [facility],[address] [place], [place] [id number] MONOS % 13.6 % High 0.0 - 10.0 [facility] Comment on above: Performed By: #### [id number] ## ## [facility],[address] [place], [place] [id number] Morphology Giovanni (Bld) [Interp] SEE BELOW Normal [facility] Comment on above: Performed By: #### [id number] ## ## [facility],[address] [place], [place] [id number] Neut # 1.20 x10EE3/UL Low 1.50 - 7.10 [facility] Comment on above: Performed By: #### [id number] ## ## [facility],[address] [place], [place] [id number] Neutrophils/100 WBC (Bld) 42.9 % Low 46.0 - 76.0 [facility] Comment on above: Performed By: #### [id number] ## ## [facility],[address] [place], [place] [id number] PLATELET 60 x10EE3/UL Low 150 - 450 [facility] Comment on above: Performed By: #### [id number] ## ## [facility],[address] [place] [address] Platelet mean volume (Bld) 8.7 fL Normal 6.6 - 10.5 [facility] [[facility]] [facility] Comment on above: Result Comment: AUTOMATED DI FFERENTIAL Performed By: #### [id number] ## ## [facility],[address] [place] [address] 78667 PLT EST DECREASED Normal [facility] Comment on above: Performed By: #### [id number] ## ## [facility],[address] [place] [address] 66145 RBC 4.14 x 10EE6/UL Normal 4.10 - 5.30 [facility] Comment on above: Performed By: #### [id number] ## ## [facility],[address] [place] [address]36 WBC 2.9 x 10EE3/UL Low 4.5 - 10.8 [facility] Comment on above: Performed By: #### [id number] ## ## [facility],[address] [place] [address] 223[address] AMMONIA on 12-27-2022 Ammonia (P) [Moles/Vol] 114.0 umol/L High 11.0 - 32.0 [facility] Comment on above: Performed By: #### [id number] ## ## [facility],[address] [place] [address] AMMONIA on 12-26-2022 Ammonia (P) [Moles/Vol] 119.0 umol/L High 11.0 - 32.0 [facility] Comment on above: Performed By: #### [id number] ## ## [facility],[address] [place] [address]694 EMERGENCY REPORT on 12-26-2022 EMERGENCY REPORT [facility] Normal [facility] EMERGENCY ROOM REPORT NAME ACCOUNT SEX AGE ADMIT DISCHARGE PT MED. RECORD# NUMBER DATE DATE TYPE LINDA, [id number] F 52 12/23/22 1 EVER [id number] ROOM: 302 DATE OF : 1970 DICTATING [...] to Vaibhav is her medical power of document review attorney at this time. She has her own medical power of document review attorney which and she has not been [...] try to get her a dmitted to [place]. She has been here for over 15 hours. We still do not have a bed f or her, but in light of her issues I think her main issue has been noncompliance with not taking her lactulose. I think if we admit her here and she takes her lactulose we can t hen get her hopefully admitted to a [facility] or penitentiary where she can be cared for. I [...] Report EVER MCKEON : 1970 JOB #: [id number] Transcribed By: [email or web address] 12/23/22 19:39 Electronically signed by: NORBERT Gandhi DO 12/26/22 08:34 Page 2 of 2 [facility] Emergency Room Report AMMONIA on 12-25-2022 Ammonia (P) [Moles/Vol] 177.0 umol/L High 11.0 - 32.0 [facility] Comment on above: Performed By: #### [id number] ## ## [facility],[address] [place] [address] Ammonia (P) [Moles/Vol] 185.0 umol/L High 11.0 - 32.0 [facility] Comment on above: Performed By: #### [id number] ## ##[facility],[address] [place], [place] [address] CBC + DIFF on 12-25-2022 Baso # 0.00 x10EE3/UL Normal 0.00 - 0.10 [facility] Comment on above: Performed By: #### [id number] ## ## [facility],[address] [place] [address] 26444 Basophils/100 WBC (Bld) 0.6 % Normal 0.0 - 2.0 [facility] Comment on above: Performed By: #### [id number] ## ## [facility],[address] [place], [place] [address] CBC + DIFF Normal [facility] Comment on above: Result Comment: CBC-COMPLETE BLOOD COUNT Performed By: #### [id number] ## ## [facility],[address] [place] [address] 19168 EO # 0.30 x10EE3/UL Normal 0.00 - 0.50 [facility] Comment on above: Performed By: #### [id number] ## ## [facility],[address] [place], [place] [id number] Eosinophils/100 WBC (Bld) 6.9 % Normal 0.0 - 7.0 [facility] Comment on above: Performed By: #### [id number] ## ## [facility],[address] [place] [address] Erythrocyte distribution width 16.9 % High 12.0 - 15. 6 [facility] (RBC) [Ratio] [facility] Comment on above: Performed By: #### [id number] ## ## [place] [address] Hematocrit (Bld) [Volume 39.7 % Normal 34.0 - 46.0 [facility] Comment on above: Performed By: #### [id number] ## ## [facility],[address] [place], [place] [id number] Hemoglobin (Bld) [Mass/Vol] 13.3 g/dL Normal 12.0 - 16.0 [facility] Comment on above: Performed By: #### [id number] ## ## [facility],[address] [place] [address] Lymph # 1.30 x10EE3/UL Normal 0.80 - 2.80 [facility] Comment on above: Performed By: #### [id number] ## ## [facility],[address] [place], [place] [address] Lymphocytes/100 WBC (Bld) 31.3 % Normal 20.0 - 45.0 [facility] Comment on above: Performed By: #### [id number] ## ## [facility] [place] [address] MANUAL DIFF REVIEWED Normal [facility] Comment on above: Performed By: #### [id number] ## ## [facility],[address] [place] [address] MCH (RBC) [Entitic mass] 30 pg Normal 27 - 33 [facility] Comment on above: Performed By: #### [id number] ## ## [facility],[address] [place] [address] MCHC 34 X10 3 Normal 32 - 36 [facility] Comment on above: Performed By: #### [id number] ## ## [facility],[address] [place] [address] MCV (RBC) [Entitic vol] 91 fL Normal 80 - 99 [facility] Comment on above: Performed By: #### [id number] ## ## [facility],[address] [place] [address] Luna # 0.70 x10EE3/UL Normal 0.20 - 1.00 [facility] Comment on above: Performed By: #### [id number] ## ## [facility],[address] [place] [address] MONOS % 15.8 % High 0.0 - 10.0 [facility] Comment on above: Performed By: #### [id number] ## ## [facility],[address] [place], [place] [id number] Morphology Giovanni (Bld) [Interp] REVIEWED Normal [facility] Comment on above: Performed By: #### [id number] ## ## [facility],[address] [place] [address] Neut # 1.90 x10EE3/UL Normal 1.50 - 7.10 [facility] Comment on above: Performed By: #### [id number] ## ## [facility],[address] [place] [address] Neutrophils/100 WBC (Bld) 45.4 % Low 46.0 - 76.0 [facility] Comment on above: Performed By: #### [id number] ## ## [facility],[address] [place] [address] PLATELET 74 x10EE3/UL Low 150 - 450 [facility] Comment on above: Performed By: #### [id number] ## ## [facility],[address] [place] [address]161 Platelet mean volume (Bld) 9.0 fL Normal 6.6 - 10.5 [facility] [Entitic [facility]] [facility] Comment on above: Result Comment: AUTOMATED DI FFERENTIAL Performed By: #### [id number] ## ## [facility],[address] [place] [address] 31277 RBC 4.37 x 10EE6/UL Normal 4.10 - 5.30 [facility] Comment on above: Performed By: #### [id number] ## ## [facility],[address] [place] [address] 16459 WBC 4.1 x 10EE3/UL Low 4.5 - 10.8 [facility] Comment on above: Performed By: #### [id number] ## ## [facility],[address] [place] [address]5313 CMP with eGFR on 12-25-2022 AGE 52 years Normal [facility] Comment on above: Performed By: #### [id number] ## ## [facility],[address] [place] [address] 39666 Albumin [Mass/Vol] 2.5 g/dL Low 3.4 - 5.0 [facility] Comment on above: Performed By: #### [id number] ## ## [facility],[address] [place] [address]1909 Albumin/Globulin [Mass ratio] 0.8 {ratio} Low 0.9 - 1.6 [facility] Comment on above: Performed By: #### [id number] ## ## [facility],[address] [place] [address]856 ALK PHOS 141 U/L High 46 - 116 [facility] Comment on above: Performed By: #### [id number] ## ## [facility],[address] [place] [address] 24714 ALT [Catalytic activity/Vol] 29 U/L Normal 14 - 59 [facility] Comment on above: Performed By: #### [id number] ## ## [facility],[address] [place] [address] 11511 Anion gap [Moles/Vol] 8 mmol/L Low 10 - 20 [facility] Comment on above: Performed By: #### [id number] ## ## [facility],[address] [place] [address] 33547 AST [Catalytic activity/Vol] 34 U/L Normal 13 - 39 [facility] Comment on above: Performed By: #### [id number] ## ## [facility],[address] [place] [address] 12354 B/C RATIO 16 ratio Normal 0 - 30 [facility] Comment on above: Performed By: #### [id number] ## ## [facility],[address] [place] [address] 33922 Bilirubin [Mass/Vol] 0.8 mg/dL Normal 0.2 - 1.0 [facility] Comment on above: Performed By: #### [id number] ## ## [facility],[address] [place] [address] 07049 Calcium [Mass/Vol] 9.6 mg/dL Normal 8.5 - 10.1 [facility] Comment on above: Performed By: #### [id number] ## ## [facility],[address] [facility] [address] Chloride [Moles/Vol] 105 mmol/L Normal 98 - 107 [facility] Comment on above: Performed By: #### [id number] ## ## [facility],[address] [facility] [address] CMP with eGFR Normal [facility] Comment on above: Result Comment: COMPREHENSIV E METABOLIC PANEL Performed By: #### [id number] ## ## [facility],[address] [facility] [address] CO2 [Moles/Vol] 27.4 mmol/L Normal 21.0 - 32.0 [facility] Comment on above: Performed By: #### [id number] ## ## [facility],[address] [place] [address] 57915 Creatinine [Mass/Vol] 0.86 mg/dL Normal 0.55 - 1.02 [facility] Comment on above: Performed By: #### [id number] ## ## [facility],[address] [place] [address] 78784 GFR/1.73 sq M.predicted mL/min/{1.73_m2} Normal 60 - 999 [facility] among non-blacks MDRD Hospit al (S/P/Bld) [Vol rate/Area] Comment on above: Performed By: #### [id number] ## ## [facility],[address] [place] [address] 24170 Result Comment: ACCORDING TO THE NATIONAL KIDNEY [...] g/dL Normal 1.5 - 3.8 [facility] Comment on above: Performed By: #### [id number] ## ## [facility],[address] [place] [address] 43585 Glucose [Mass/Vol] 123 mg/dL High 74 - 106 [facility] Comment on above: Performed By: #### [id number] ## ## [facility],[address] [place] [address] 23749 Potassium [Moles/Vol] 3.8 mmol/L Normal 3.5 - 5.1 [facility] Comment on above: Performed By: #### [id number] ## ## [facility],[address] [place] [address] 44721 Protein [Mass/Vol] 5.6 g/dL Low 6.4 - 8.2 [facility] Comment on above: Performed By: #### [id number] ## ## [facility],[address] [place] [address] 81298 Sodium [Moles/Vol] 137 mmol/L Normal 136 - 145 [facility] Comment on above: Performed By: #### [id number] ## ## [facility],[address] [place] [address] 89996 Urea nitrogen [Mass/Vol] 14 mg/dL Normal 7 - 18 [facility] Comment on above: Performed By: #### [id number] ## ## [facility],[address] [place] [address] 31237 TROPONIN I, HIGH SENSITIVITY on 023 HS TROPONIN 5.5 pg/mL Normal 0.0 - 51.4 [facility] Comment on above: Performed By: #### [id number] ## ## [facility],[address] [place] [address] 94270 AMMONIA on 12-24-2022 Ammonia (P) [Moles/Vol] 66.0 umol/L High 11.0 - 32.0 [facility] Comment on above: Performed By: #### [id number] ## ## [facility],[address] [place] [address] 84777 CBC + DIFF on 12-24-2022 Baso # 0.00 x10EE3/UL Normal 0.00 - 0.10 [facility] Comment on above: Performed By: #### [id number] ## ##[facility],[address] [place] [address] 37285 Basophils/100 WBC (Bld) 0.8 % Normal 0.0 - 2.0 [facility] Comment on above: Performed By: #### [id number] ## ##[facility],[address] [place] [address] 80753 CBC + DIFF Normal [facility] Comment on above: Result Comment: CBC-COMPLETE BLOOD COUNT Performed By: #### [id number] ## ##[facility],[address] [place] [address] 97636 EO # 0.30 x10EE3/UL Normal 0.00 - 0.50 [facility] Comment on above: Performed By: #### [id number] ## ##[facility],[address] [place] [address] 11443 Eosinophils/100 WBC (Bld) 6.8 % Normal 0.0 - 7.0 [facility] Comment on above: Performed By: #### [id number] ## ##[facility],[address] [place] [address] 60464 Erythrocyte distribution width 17.1 % High 12.0 - 15. 6 [facility] (RBC) [Ratio] [facility] Comment on above: Performed By: #### [id number] ## ##[facility],[address] [place] [address] 44050 Hematocrit (Bld) [Volume 40.1 % Normal 34.0 - 46.0 [facility] Comment on above: Performed By: #### [id number] ## ##[facility],[address] [place] [address] 12456 Hemoglobin (Bld) [Mass/Vol] 13.5 g/dL Normal 12.0 - 16.0 [facility] Comment on above: Performed By: #### [id number] ## ##[facility],[address] [place] [address] Lymph # 1.50 x10EE3/UL Normal 0.80 - 2.80 [facility] Comment on above: Performed By: #### [id number] ## ##[facility],[address] [place] [address] Lymphocytes/100 WBC (Bld) 35.0 % Normal 20.0 - 45.0 [facility] Comment on above: Performed By: #### [id number] ## ##[facility],[address] [place] [address] MANUAL DIFF REVIEWED Normal [facility] Comment on above: Performed By: #### [id number] ## ##[facility],[address] [place] [address] MCH (RBC) [Entitic mass] 30 pg Normal 27 - 33 [facility] Comment on above: Performed By: #### [id number] ## ##[facility],[address] [place] [address] MCHC 34 X10 3 Normal 32 - 36 [facility] Comment on above: Performed By: #### [id number] ## ##[facility],[address] [place] [address] MCV (RBC) [Entitic vol] 89 fL Normal 80 - 99 [facility] Comment on above: Performed By: #### [id number] ## ##[facility],[address] [place] [address] 86295 Luna # 0.60 x10EE3/UL Normal 0.20 - 1.00 [facility] Comment on above: Performed By: #### [id number] ## ##[facility],[address] [place] [address] MONOS % 13.8 % High 0.0 - 10.0 [facility] Comment on above: Performed By: #### [id number] ## ##[facility],[address] [place] [address] 79940 Morphology Giovanni (Bld) [Interp] REVIEWED Normal [facility] Comment on above: Performed By: #### [id number] ## ##[facility],[address] [place] [address] 22052 Neut # 1.90 x10EE3/UL Normal 1.50 - 7.10 [facility] Comment on above: Performed By: #### [id number] ## ##[facility],[address] [place] [address] 93809 Neutrophils/100 WBC (Bld) 43.6 % Low 46.0 - 76.0 [facility] Comment on above: Performed By: #### [id number] ## ##[facility],[address] [place] [address] 92753 PLATELET 73 x10EE3/UL Low 150 - 450 [facility] Comment on above: Performed By: #### [id number] ## ##[facility],[address] [place] [address] 99371 Platelet mean volume (Bld) 8.5 fL Normal 6.6 - 10.5 [facility] [[facility]] [facility] Comment on above: Result Comment: AUTOMATED DI FFERENTIAL Performed By: #### [id number] ## ##[facility],[address] [place] [address] 20397 RBC 4.50 x 10EE6/UL Normal 4.10 - 5.30 [facility] Comment on above: Performed By: #### [id number] ## ##[facility],[address] [place] [address] 94538 WBC 4.4 x 10EE3/UL Low 4.5 - 10.8 [facility] Comment on above: Performed By: #### [id number] ## ##[facility],[address] [place] [address] 80417 CMP with eGFR on 12-24-2022 AGE 52 years Normal [facility] Comment on above: Performed By: #### [id number] ## ## [facility],[address] [place] [address] 43456 Albumin [Mass/Vol] 2.8 g/dL Low 3.4 - 5.0 [facility] Comment on above: Performed By: #### [id number] ## ## [facility],[address] [place], [place] [id number] Albumin/Globulin [Mass ratio] 0.9 {ratio} Normal 0.9 - 1.6 [facility] Comment on above: Performed By: #### [id number] ## ## [facility],[address] [place] [address] 45842 ALK PHOS 119 U/L High 46 - 116 [facility] Comment on above: Performed By: #### [id number] ## ## [facility],[address] [place], [place] [id number] ALT [Catalytic activity/Vol] 25 U/L Normal 14 - 59 [facility] Comment on above: Performed By: #### [id number] ## ## [facility],[address] [place] [address] 26524 Anion gap [Moles/Vol] 12 mmol/L Normal 10 - 20 [facility] Comment on above: Performed By: #### [id number] ## ## [facility],[address] [place] [address] 50916 AST [Catalytic activity/Vol] 39 U/L Normal 13 - 39 [facility] Comment on above: Performed By: #### [id number] ## ## [facility],[address] [place] [address] 85522 B/C RATIO 16 ratio Normal 0 - 30 [facility] Comment on above: Performed By: #### [id number] ## ## [facility],[address] [place] [address] 61763 Bilirubin [Mass/Vol] 1.4 mg/dL High 0.2 - 1.0 [facility] Comment on above: Performed By: #### [id number] ## ## [facility] [facility] [address] Calcium [Mass/Vol] 9.2 mg/dL Normal 8.5 - 10.1 [facility] Comment on above: Performed By: #### [id number] ## ## [facility] [address] Chloride [Moles/Vol] 111 mmol/L High 98 - 107 [facility] Comment on above: Performed By: #### [id number] ## ## [facility],[address] [place], [place] [id number] CMP with eGFR Normal [facility] Comment on above: Result Comment: COMPREHENSIV E METABOLIC PANEL Performed By: #### [id number] ## ## [facility],[address] [place] [address] 35628 CO2 [Moles/Vol] 23.6 mmol/L Normal 21.0 - 32.0 [facility] Comment on above: Performed By: #### [id number] ## ## [facility],[address] [place] [address] 52407 Creatinine [Mass/Vol] 0.75 mg/dL Normal 0.55 - 1.02 [facility] Comment on above: Performed By: #### [id number] ## ## [facility],[address] [place] [address] 37929 GFR/1.73 sq M.predicted mL/min/{1.73_m2} Normal 60 - 999 [facility] among non-blacks MDRD Hospit al (S/P/Bld) [Vol rate/Area] Comment on above: Performed By: #### [id number] ## ## [facility],[address] [place] [address] 71073 Result Comment: ACCORDING TO THE NATIONAL KIDNEY [...] g/dL Normal 1.5 - 3.8 [facility] Comment on above: Performed By: #### [id number] ## ## [facility],[address] [place] [address] 25518 Glucose [Mass/Vol] 95 mg/dL Normal 74 - 106 [facility] Comment on above: Performed By: #### [id number] ## ## [facility],[address] [place] [address] 71396 Potassium [Moles/Vol] 3.8 mmol/L Normal 3.5 - 5.1 [facility] Comment on above: Performed By: #### [id number] ## ## [facility],[address] [place] [address] 18834 Protein [Mass/Vol] 6.0 g/dL Low 6.4 - 8.2 [facility] Comment on above: Performed By: #### [id number] ## ## [facility],[address] [place] [address] 65719 Sodium [Moles/Vol] 143 mmol/L Normal 136 - 145 [facility] Comment on above: Performed By: #### [id number] ## ## [facility],[address] [place] [address] 39062 Urea nitrogen [Mass/Vol] 12 mg/dL Normal 7 - 18 [facility] Comment on above: Performed By: #### [id number] ## ## [facility],[address] [place] [address] 13560 AMMONIA on 12-23-2022 Ammonia (P) [Moles/Vol] 90.0 umol/L High 11.0 - 32.0 [facility] Comment on above: Performed By: #### [id number] ## ## [facility],[address] [place] [address] 18885 CBC + DIFF on 12-23-2022 Baso # 0.10 x10EE3/UL Normal 0.00 - 0.10 [facility] Comment on above: Performed By: #### [id number] ## ## [facility],[address] [place] [address] 42728 Basophils/100 WBC (Bld) 0.9 % Normal 0.0 - 2.0 [facility] Comment on above: Performed By: #### [id number] ## ## [facility],[address] [place] [address] 14241 CBC + DIFF Normal [facility] Comment on above: Result Comment: CBC-COMPLETE BLOOD COUNT Performed By: #### [id number] ## ## [facility],[address] [place] [address] 71123 EO # 0.30 x10EE3/UL Normal 0.00 - 0.50 [facility] Comment on above: Performed By: #### [id number] ## ## [facility],[address] [place] [address] 59183 Eosinophils/100 WBC (Bld) 5.7 % Normal 0.0 - 7.0 [facility] Comment on above: Performed By: #### [id number] ## ## [facility],[address] [place] [address] 16398 Erythrocyte distribution width 17.5 % High 12.0 - 15. 6 [facility] (RBC) [Ratio] [facility] Comment on above: Performed By: #### [id number] ## ## [facility],[address] [place] [address] 14017 Hematocrit (Bld) [Volume 41.5 % Normal 34.0 - 46.0 [facility]] [facility] Comment on above: Performed By: #### [id number] ## ## [facility],[address] [place] [address] Hemoglobin (Bld) [Mass/Vol] 13.8 g/dL Normal 12.0 - 16.0 [facility] Comment on above: Performed By: #### [id number] ## ## [facility],[address] [place] [address] Lymph # 1.50 x10EE3/UL Normal 0.80 - 2.80 [facility] Comment on above: Performed By: #### [id number] ## ## [facility],[address] [place] [address] Lymphocytes/100 WBC (Bld) 24.6 % Normal 20.0 - 45.0 [facility] Comment on above: Performed By: #### [id number] ## ## [facility],[address] [place] [address] MANUAL DIFF REVIEWED Normal [facility] Comment on above: Performed By: #### [id number] ## ## [facility],[address] [place] [address] MCH (RBC) [Entitic mass] 30 pg Normal 27 - 33 [facility] Comment on above: Performed By: #### [id number] ## ## [facility],[address] [place] [address] MCHC 33 X10 3 Normal 32 - 36 [facility] Comment on above: Performed By: #### [id number] ## ## [facility],[address] [place], [place] [id number] MCV (RBC) [Entitic vol] 90 fL Normal 80 - 99 [facility] Comment on above: Performed By: #### [id number] ## ## [facility],[address] [place] [address] Luna # 1.00 x10EE3/UL Normal 0.20 - 1.00 [facility] Comment on above: Performed By: #### [id number] ## ## [facility],[address] [place] [address] 53410 MONOS % 16.3 % High 0.0 - 10.0 [facility] Comment on above: Performed By: #### [id number] ## ## [facility],[address] [place] [address] Morphology Giovanni (Bld) [Interp] REVIEWED Normal [facility] Comment on above: Result Comment: {CD] Performed By: #### [id number] ## ## [facility],[address] [place] [address] Neut # 3.20 x10EE3/UL Normal 1.50 - 7.10 [facility] Comment on above: Performed By: #### [id number] ## ## [facility],[address] [place] [address] Neutrophils/100 WBC (Bld) 52.5 % Normal 46.0 - 76.0 [facility] Comment on above: Performed By: #### [id number] ## ## [facility],[address] [place] [address] PLATELET 86 x10EE3/UL Low 150 - 450 [facility] Comment on above: Performed By: #### [id number] ## ## [facility],[address] [place] [address] Platelet mean volume (Bld) 8.6 fL Normal 6.6 - 10.5 [facility] [[facility]] [facility] Comment on above: Result Comment: AUTOMATED DI FFERENTIAL Performed By: #### [id number] ## ## [facility],[address] [place], [place] [id number] RBC 4.62 x 10EE6/UL Normal 4.10 - 5.30 [facility] Comment on above: Performed By: #### [id number] ## ## [facility],[address] [facility] [address] WBC 6.0 x 10EE3/UL Normal 4.5 - 10.8 [facility] Comment on above: Performed By: #### [id number] ## ## [facility],[address] [facility] [address] CMP with eGFR on 12-23-2022 AGE 52 years Normal [facility] Comment on above: Performed By: #### [id number] ## ## [facility],[address] [facility] [address] Albumin [Mass/Vol] 3.0 g/dL Low 3.4 - 5.0 [facility] Comment on above: Performed By: #### [id number] ## ## [facility] [address] Albumin/Globulin [Mass ratio] 0.9 {ratio} Normal 0.9 - 1.6 [facility] Comment on above: Performed By: #### [id number] ## ## [facility] [facility] [address] ALK PHOS 129 U/L High 46 - 116 [facility] Comment on above: Performed By: #### [id number] ## ## [facility],[address] [facility] [address] ALT [Catalytic activity/Vol] 28 U/L Normal 14 - 59 [facility] Comment on above: Performed By: #### [id number] ## ## [facility],[address] [facility] [address] Anion gap [Moles/Vol] 10 mmol/L Normal 10 - 20 [facility] Comment on above: Performed By: #### [id number] ## ## [facility],[address] [facility] [address] AST [Catalytic activity/Vol] 41 U/L High 13 - 39 [facility] Comment on above: Performed By: #### [id number] ## ## [facility],[address] [facility] [address] B/C RATIO 20 ratio Normal 0 - 30 [facility] Comment on above: Performed By: #### [id number] ## ## [facility],[address] [facility] [address] Bilirubin [Mass/Vol] 1.2 mg/dL High 0.2 - 1.0 [facility] Comment on above: Performed By: #### [id number] ## ## [facility],[address] [facility] [address] Calcium [Mass/Vol] 9.4 mg/dL Normal 8.5 - 10.1 [facility] Comment on above: Performed By: #### [id number] ## ## [facility] [facility] [address] Chloride [Moles/Vol] 111 mmol/L High 98 - 107 [facility] Comment on above: Performed By: #### [id number] ## ## [facility] [facility] [address] CMP with eGFR Normal [facility] Comment on above: Result Comment: COMPREHENSIV E METABOLIC PANEL Performed By: #### [id number] ## ## [facility] [facility] [address] CO2 [Moles/Vol] 26.5 mmol/L Normal 21.0 - 32.0 [facility] Comment on above: Performed By: #### [id number] ## ## [facility] [facility] [address] Creatinine [Mass/Vol] 0.98 mg/dL Normal 0.55 - 1.02 [facility] Comment on above: Performed By: #### [id number] ## ## [facility] [address] eGFR 59 ML/MINUTE Low 60 - 999 [facility] Comment on above: Performed By: #### [id number] ## ## [facility],[address] [place] [address] 35200 GFR/1.73 sq M.predicted mL/min/{1.73_m2} Normal 60 - 999 [facility] among non-blacks MDRD Hospit al (S/P/Bld) [...] OF AGE AND OLDER. Performed By: #### [id number] ## ## [facility],[address] [place] [address] 32193 Globulin (S) [Mass/Vol] 3.3 g/dL Normal 1.5 - 3.8 [facility] Comment on above: Performed By: #### [id number] ## ## [facility],[address] [place] [address] 89701 Glucose [Mass/Vol] 128 mg/dL High 74 - 106 [facility] Comment on above: Performed By: #### [id number] ## ## [facility],[address] [place] [address] 21686 Potassium [Moles/Vol] 4.0 mmol/L Normal 3.5 - 5.1 [facility] Comment on above: Performed By: #### [id number] ## ## [facility],[address] [place] [address] 50790 Protein [Mass/Vol] 6.3 g/dL Low 6.4 - 8.2 [facility] Comment on above: Performed By: #### [id number] ## ## [facility],[address] [place] [address] 07349 Sodium [Moles/Vol] 143 mmol/L Normal 136 - 145 [facility] Comment on above: Performed By: #### [id number] ## ## [facility],[address] [place], [place] [id number] Urea nitrogen [Mass/Vol] 20 mg/dL High 7 - 18 [facility] Comment on above: Performed By: #### [id number] ## ## [facility],[address] [place], [place] [id number] CORONAVIRUS PCR - WILSON on 3 SARS-CoV-2 (COVID-19) RNA Negative Normal NORMAL: NEGATIV E [facility] SAADIA+probe Ql (Unsp spec) [facility]ital Comment on above: Performed By: #### [id number] ## ## [facility],[address] [place] [address] SEND TO IC? YES Normal [facility] Comment on above: Result Comment: RESULTS FAXE D TO INFECTION CONTROL. SARS-CoV-2 THIS TEST IS BEING USED UNDE R THE FDA EUA PROCEDURE. THIS ASSAY HAS BEEN VALIDATED IN THE [facility] FOR USE WITH NASOPHARYNGEAL SPECIMENS IN [facility]. INTERPRETIVE DATA LABORATORY TEST RESULTS SHOU LD [...] WITH PUBLIC HEALTH AUTHORITIES. Performed By: #### [id number] ## ## [facility],[address] [place], [place] [address] DRUG SCREEN URINE MEDIC on 12-23-2022 AMPHETAMINES Negative [facility] Comment on above: Performed By: #### [id number] ## ## [facility],[address] [place], [place] [address] B-DIAZEPINES Negative [facility] Comment on above: Performed By: #### [id number] ## ## [facility],[address] [place], [place] [address] BARBITURATES Negative [facility] Comment on above: Performed By: #### [id number] ## ## [facility],[address] [place], [place] [address] COCAINE Negative [facility] Comment on above: Performed By: #### [id number] ## ## [facility],[address] [place], [place] [id number] DRUG SCREEN URINE MEDIC Normal [facility] Comment on above: Result Comment: DRUG SCREEN - URINE Performed By: #### [id number] ## ## [facility],[address] [place] [address] 33296 METHADONE Negative [facility] Comment on above: Performed By: #### [id number] ## ## [facility],[address] [place] [address] 76749 OPIATES Negative [facility] Comment on above: Performed By: #### [id number] ## ## [facility],[address] [place] [address] 37224 PCP Negative Normal [facility] Comment on above: Performed By: #### [id number] ## ## [facility],[address] [place] [address] 87520 THC Negative Normal [facility] Comment on above: Result Comment: PATIENTS REC EIVING PROTON PUMP INHIBITORS MAY DEMONSTRATE FALSE POSITIVE THC/CANNABINOID RESULTS. AN ALTERNATIVE CONFIRMATORY METHOD SHOULD BE CONSIDERED TO VERIFY POSITIVE RESULTS. Performed By: #### [id number] ## ## [facility],[address] [place] [address] 08804 URINALYSIS on 12-23-2022 Amorphous 2+ Normal [facility] Comment on above: Performed By: #### [id number] ## ##[facility],[address] [place] [address] 36213 Bacteria 3+ Normal [facility] Comment on above: Performed By: #### [id number] ## ##[facility],[address] [place] [address] 11060 Bilirubin Ql (U) Negative Normal NORMAL: NEGATIVE [facility] Comment on above: Performed By: #### [id number] ## ##[facility],[address] [place] [address] 61741 Casts NONE Normal [facility] Comment on above: Performed By: #### [id number] ## ##[facility],[address] [place] [address] 21510 Clarity (U) very cloudy Normal NORMAL: CLEAR [facility] Comment on above: Performed By: #### [id number] ## ##[facility],[address] [place] [address] 04711 Color (U) ART Normal NORMAL: YELLOW [facility] Comment on above: Performed By: #### [id number] ## ##[facility],[address] [place] [address] 41718 Crystals LM Nom (Urine sed) NONE Normal [facility] Comment on above: Performed By: #### [id number] ## ##[facility],[address] [place] [address] 05646 Epi Cells MANY Normal [facility] Comment on above: Performed By: #### [id number] ## ##[facility],[address] [place] [address] 61838 Glucose Ql (U) NORM Normal NORMAL: NORMAL [place] Comment on above: Performed By: #### [id number] ## ##[facility],[address] [place] [address] 14312 Hemoglobin Ql (U) 50 Abnormal NORMAL: NEGATIVE [facility] Comment on above: Performed By: #### [id number] ## ##[facility],[address] [place] [address] 00562 Ketone 5 Abnormal NORMAL: NEGATIVE [place] Comment on above: Performed By: #### [id number] ## ##[facility],[address] [place] [address] 69323 Leukocytes 25 Abnormal NORMAL: NEGATIVE [place] Comment on above: Performed By: #### [id number] ## ##[facility],[address] [place] [address] 85206 Mucous 2+ Normal [facility] Comment on above: Performed By: #### [id number] ## ##[facility],[address] [place] [address] 87468 Nitrite Ql (U) Negative Normal NORMAL: NEGATIVE [facility] Comment on above: Performed By: #### [id number] ## ##[facility],[address] [place] [address] 14525 pH (U) 6 [pH] Normal NORMAL: 5.0-8.0 [facility] Comment on above: Performed By: #### [id number] ## ##[facility],[address] [place] [address] 31776 Protein Ql (U) 15 Abnormal NORMAL: NEGATIVE [facility] Comment on above: Performed By: #### [id number] ## ##[facility],[address] [place] [address] Rbc 10-15 Normal 0-3/hpf [facility] Comment on above: Performed By: #### [id number] ## ##[facility],[address] [place] [address] Sp [place] 1.025 Normal NORMAL: 1.010-1.030 [facility] Comment on above: Performed By: #### [id number] ## ##[facility],[address] [place] [address] Specimen Type UNSPECIFIED Normal [facility] Comment on above: Performed By: #### [id number] ## ##[facility],[address] [place] [address] Urinalysis dipstick W Reflex SEE BELOW Normal [facility] Microscopic panel (U) Comment on above: Result Comment: MICROSCOPIC Performed By: #### [id number] ## ##[facility],[address] [place] [address] Urobilinog 8 Abnormal NORMAL: NORMAL [facility] Comment on above: Performed By: #### [id number] ## ##[facility],[address] [place] [address] Wbc 6-10 Normal 0-5/hpf [facility] Comment on above: Performed By: #### [id number] ## ##[facility],[address] [place] [address] Yeast NONE Normal [facility] Comment on above: Performed By: #### [id number] ## ##[facility],[address] [place] [address] ACETAMINOPHEN on 12-22-2022 ACETAMINOPHEN <0.0 Low 10.0 - 30.0 [facility] Comment on above: Performed By: #### [id number] ## ## [facility],[address] [place] [address] ALCOHOL-BLOOD MEDICAL on 12-22-2022 Ethanol [Mass/Vol] mg/dL Normal 0 - 50 [facility] Comment on above: Performed By: #### [id number] ## ## [facility],[address] [place] [address] 60730 AMMONIA on 12-22-2022 Ammonia (P) [Moles/Vol] 94.0 umol/L High 11.0 - 32.0 [facility] Comment on above: Performed By: #### [id number] ## ## [facility],[address] [facility] [address] ARTERIAL BLOOD GAS ANALYSIS on 12-22-19 23 ALLENS TEST + Normal [facility] Comment on above: Result Comment: { TIME CHACON D 1810 Performed By: #### [id number] ## ## [facility],[address] [place] [address] ARTERIAL BLOOD GAS ANALYSIS Normal [facility] Comment on above: Result Comment: ARTERIAL BLO OD GAS Performed By: #### [id number] ## ## [facility],[address] [place] [address] 30524 BE 0 Normal -2 - 3 [facility] Comment on above: Performed By: #### [id number] ## ## [facility],[address] [facility] [address] HCO3 (Bld) [Moles/Vol] 25 mmol/L High 20 - 24 [facility] Comment on above: Performed By: #### [id number] ## ## [facility],[address] [facility] [address] Heart rate 106 /min Normal [facility] Comment on above: Performed By: #### [id number] ## ## [facility],[address] [place] [address] 88648 MODALITY . Normal [facility] Comment on above: Performed By: #### [id number] ## ## [facility] [facility] [address] PCO2 42 mm Hg Normal 35 - 45 [facility] Comment on above: Performed By: #### [id number] ## ## [facility],[address] [facility] [address] pH (Bld) 7.39 [pH] Normal 7.35 - 7.45 [facility] Comment on above: Performed By: #### [id number] ## ## [facility] [facility] [address] PO2 66 mm Hg Low 80 - 105 [facility] Comment on above: Performed By: #### [id number] ## ## [facility] [facility] [address] SAMPLE SITE LT RAD Normal [facility] Comment on above: Performed By: #### [id number] ## ## [facility] [facility] [address]876 SaO2 92 Low 95 - 98 [facility] Comment on above: Result Comment: TIME RESULT CALLED _[id number] 12/22/22.1821.[id number]. { FIO2/LPM RA Performed By: #### [id number] ## ## [facility],[address] [facility] [address] TOTAL RR 20 Normal [facility] Comment on above: Performed By: #### [id number] ## ## [facility] [facility] [address] VENT N/A Normal [facility] Comment on above: Performed By: #### [id number] ## ## [facility] [facility] [address] C-REACTIVE PROTEIN on 12-22-2022 CRP [Mass/Vol] mg/L Normal 0.00 - 0.90 [facility] Comment on above: Performed By: #### [id number] ## ## [facility],[address] [place] [address] CBC + DIFF on 12-22-2022 Baso # 0.00 x10EE3/UL Normal 0.00 - 0.10 [facility] Comment on above: Performed By: #### [id number] ## ##[facility],[address] [place] [address] Basophils/100 WBC (Bld) 1.0 % Normal 0.0 - 2.0 [facility] Comment on above: Performed By: #### [id number] ## ##[place] [address] CBC + DIFF Normal [facility] Comment on above: Result Comment: CBC-COMPLETE BLOOD COUNT Performed By: #### [id number] ## ##[place] [address] EO # 0.30 x10EE3/UL Normal 0.00 - 0.50 [facility] Comment on above: Performed By: #### [id number] ## ##[place] [address] Eosinophils/100 WBC (Bld) 5.7 % Normal 0.0 - 7.0 [facility] Comment on above: Performed By: #### [id number] ## ##[place] [address] Erythrocyte distribution width 17.3 % High 12.0 - 15. 6 [facility] (RBC) [Ratio] [facility] Comment on above: Performed By: #### [id number] ## ##[place] [address] Hematocrit (Bld) [Volume 46.2 % High 34.0 - 46.0 [facility]] [facility] Comment on above: Performed By: #### [id number] ## ##[place] [address] Hemoglobin (Bld) [Mass/Vol] 15.2 g/dL Normal 12.0 - 16.0 [facility] Comment on above: Performed By: #### [id number] ## ##[facility],[address] [place] [address] Lymph # 1.20 x10EE3/UL Normal 0.80 - 2.80 [facility] Comment on above: Performed By: #### [id number] ## ##[facility],[address] [place] [address] Lymphocytes/100 WBC (Bld) 24.3 % Normal 20.0 - 45.0 [facility] Comment on above: Performed By: #### [id number] ## ##[facility],[address] [place] [address] MANUAL DIFF REVIEWED Normal [facility] Comment on above: Performed By: #### [id number] ## ##[facility],[address] [place] [address] MCH (RBC) [Entitic mass] 30 pg Normal 27 - 33 [facility] Comment on above: Performed By: #### [id number] ## ##[facility],[address] [place] [address] MCHC 33 X10 3 Normal 32 - 36 [facility] Comment on above: Performed By: #### [id number] ## ##[facility],[address] [place] [address] MCV (RBC) [Entitic vol] 91 fL Normal 80 - 99 [facility] Comment on above: Performed By: #### [id number] ## ##[place] [address] Luna # 0.60 x10EE3/UL Normal 0.20 - 1.00 [facility] Comment on above: Performed By: #### [id number] ## ##[place] [address] MONOS % 11.9 % High 0.0 - 10.0 [facility] Comment on above: Performed By: #### [id number] ## ##[facility],[address] [place] [address] Morphology Giovanni (Bld) [Interp] SEE BELOW Normal [facility] Comment on above: Performed By: #### [id number] ## ##[facility],[address] [place] [address] Neut # 2.90 x10EE3/UL Normal 1.50 - 7.10 [facility] Comment on above: Performed By: #### [id number] ## ##[facility],[address] [place] [address] Neutrophils/100 WBC (Bld) 57.1 % Normal 46.0 - 76.0 [facility] Comment on above: Performed By: #### [id number] ## ##[facility],[address] [place] [address] PLATELET 99 x10EE3/UL Low 150 - 450 [facility] Comment on above: Performed By: #### [id number] ## ##[facility],[address] [place] [address] Platelet mean volume (Bld) 9.0 fL Normal 6.6 - 10.5 [facility] [[facility]] [facility] Comment on above: Result Comment: AUTOMATED DI FFERENTIAL Performed By: #### [id number] ## ##[facility],[address] [place] [address] PLT EST DECREASED Normal [facility] Comment on above: Performed By: #### [id number] ## ##[facility],[address] [place] [address] RBC 5.09 x 10EE6/UL Normal 4.10 - 5.30 [facility] Comment on above: Performed By: #### [id number] ## ##[facility],[address] [place] [address] WBC 5.1 x 10EE3/UL Normal 4.5 - 10.8 [facility] Comment on above: Performed By: #### [id number] ## ##[facility],[address] [place] [address]33[address] Other RARE GIANT PLATELET Normal [facility] Comment on above: Result Comment: {CD] Performed By: #### [id number] ## ##[facility],[address] [place] [address] CMP with eGFR on 12-22-2022 AGE 52 years Normal [facility] Comment on above: Performed By: #### [id number] ## ## [facility],[address] [place] [address] Albumin [Mass/Vol] 3.5 g/dL Normal 3.4 - 5.0 [facility] Comment on above: Performed By: #### [id number] ## ## [facility],[address] [place], [place] [id number] Albumin/Globulin [Mass ratio] 0.9 {ratio} Normal 0.9 - 1.6 [facility] Comment on above: Performed By: #### [id number] ## ## [facility],[address] [place] [address] ALK PHOS 167 U/L High 46 - 116 [facility] Comment on above: Performed By: #### [id number] ## ## [facility],[address] [place] [address] ALT [Catalytic activity/Vol] 27 U/L Normal 14 - 59 [facility] Comment on above: Performed By: #### [id number] ## ## [facility],[address] [place] [address]90[address] Anion gap [Moles/Vol] 12 mmol/L Normal 10 - 20 [facility] Comment on above: Performed By: #### [id number] ## ## [facility],[address] [facility] [address] AST [Catalytic activity/Vol] 43 U/L High 13 - 39 [facility] Comment on above: Performed By: #### [id number] ## ## [facility] [facility] [address] B/C RATIO 17 ratio Normal 0 - 30 [facility] Comment on above: Performed By: #### [id number] ## ## [facility] [facility] [address] Bilirubin [Mass/Vol] 1.2 mg/dL High 0.2 - 1.0 [facility] Comment on above: Performed By: #### [id number] ## ## [facility] [facility] [address] Calcium [Mass/Vol] 9.7 mg/dL Normal 8.5 - 10.1 [facility] Comment on above: Performed By: #### [id number] ## ## [facility] [facility] [address] Chloride [Moles/Vol] 110 mmol/L High 98 - 107 [facility] Comment on above: Performed By: #### [id number] ## ## [facility] [facility] [address] CMP with eGFR Normal [facility] Comment on above: Result Comment: COMPREHENSIV E METABOLIC PANEL Performed By: #### [id number] ## ## [facility] [facility] [address] CO2 [Moles/Vol] 27.9 mmol/L Normal 21.0 - 32.0 [facility] Comment on above: Performed By: #### [id number] ## ## [facility] [facility] [address] Creatinine [Mass/Vol] 0.84 mg/dL Normal 0.55 - 1.02 [facility] Comment on above: Performed By: #### [id number] ## ## [facility],[address] [facility] [address] GFR/1.73 sq M.predicted mL/min/{1.73_m2} Normal 60 - 999 [facility] among non-blacks MDRD Hospit al (S/P/Bld) [Vol rate/Area] Comment on above: Performed By: #### [id number] ## ## [facility],[address] [place] [address] Result Comment: ACCORDING TO THE NATIONAL KIDNEY [...] g/dL High 1.5 - 3.8 [facility] Comment on above: Performed By: #### [id number] ## ## [facility],[address] [place] [address] Glucose [Mass/Vol] 104 mg/dL Normal 74 - 106 [facility] Comment on above: Performed By: #### [id number] ## ## [facility],[address] [place] [address] Potassium [Moles/Vol] 4.5 mmol/L Normal 3.5 - 5.1 [facility] Comment on above: Performed By: #### [id number] ## ## [facility],[address] [place] [address] Protein [Mass/Vol] 7.4 g/dL Normal 6.4 - 8.2 [facility] Comment on above: Performed By: #### [id number] ## ## [facility],[address] [place] [address] Sodium [Moles/Vol] 145 mmol/L Normal 136 - 145 [facility] Comment on above: Performed By: #### [id number] ## ## [facility],[address] [place] [address] Urea nitrogen [Mass/Vol] 14 mg/dL Normal 7 - 18 [facility] Comment on above: Performed By: #### [id number] ## ## [facility],[address] [place] [address] CPK on 12-22-2022 CPK 184 U/L Normal 26 - 192 [facility] Comment on above: Performed By: #### [id number] ## ## [facility],[address] [place] [address] BRAIN W/O CONTRAST on 12-22-2022 CT BRAIN W/O CONTRAST [facility] Normal J [place] [address] Patient: EVER MCKEON Phone#: : 1970 Age: 52 Gender: F Pt. Type: ER Account: [id number] Location: [facility] Ordering: PAULO GARCIA Exam Date: 12/22/2022/19:36 Family Phys: Charge Code: [id number] Physician: Dupage Order #: [id number] Dose#: [id number] PROCEDURE: CT BRAIN WITHOUT CONTRAST COMPARISON: [facility], CT, BRAIN W/O CON, 11/17, 16:21. INDICATIONS: Altered mental status. TECHNIQUE: CT images were obtained without contrast ky saman. All CT scans at this facilit [...] on 12-22-2022 Microscopic CULTURE BLOOD [DIANA] Normal [facility] examination of blood, _BLOOD CULTURE_ [facility] FOR SCANNED REPO RT 12/29/[email or web address] Comment on above: Performed By: #### [id number] ## ## [facility],[address] [place] [address] Microscopic CULTURE BLOOD [DIANA] Normal [facility] examination of blood, _BLOOD CULTURE_ [facility] culture [facility] AND ATTACH[facility] FOR SCANNED REPO RT 12/29/[email or web address] Comment on above: Performed By: #### [id number] ## ## [facility],[address] [place] [address] LACTATE on 12-22-2022 Lactate [Moles/Vol] 1.3 mmol/L Normal 0.4 - 2.0 [facility] Comment on above: Performed By: #### [id number] ## ## [address] [address] MAGNESIUM on 12-22-2022 Magnesium [Mass/Vol] 2.4 mg/dL Normal 1.8 - 2.4 [facility] Comment on above: Performed By: #### [id number] ## ## [facility],[address] [place] [address] NT-proBNP on 12-22-2022 Natriuretic peptide B (Bld) 44 pg/mL Normal 0 - 125 [facility] Comment on above: Performed By: #### [id number] ## ## [facility],[address] [place] [address] PROTHROMBIN TIME AND INR on 12-22-2022 INR Coag (PPP) [Relative time] 1.1 {INR} Normal 0.8 - 1.2 [facility] Comment on above: Result Comment: [...] MECHANICAL HEART V JOSEPH Performed By: #### [id number] ## ##[facility],[address] [place] [address] PROTHROMBIN TIME AND INR Normal [facility] Comment on above: Result Comment: PROTHROMBIN TIME AND INR Performed By: #### [id number] ## ##[place] [address] PT-COUMADIN 13.3 sec Normal 9.3 - 14.1 [facility] Comment on above: Performed By: #### [id number] ## ##[place] [address] SEDRATE on 12-22-2022 SEDRATE 3 mm/hr Normal 0 - 30 [facility] Comment on above: Performed By: #### [id number] ## ##[place] [address] TROPONIN I, HIGH SENSITIVITY on 023 HS TROPONIN 7.4 pg/mL Normal 0.0 - 51.4 [facility] Comment on above: Performed By: #### [id number] ## ## [facility],[address] [place] [address] HS TROPONIN 6.5 pg/mL Normal 0.0 - 51.4 [facility] Comment on above: Performed By: #### [id number] ## ## [facility],[address] [place] [address] TSH on 12-22-2022 TSH Qn 2.93 m[IU]/L Normal 0.35 - 3.74 [facility] Comment on above: Performed By: #### [id number] ## ## [facility],[address] [place] [address] EMERGENCY REPORT on 11-21-2022 EMERGENCY REPORT [facility] Normal [facility] EMERGENCY ROOM REPORT NAME ACCOUNT SEX AGE ADMIT DISCHARGE PT MED. RECORD# NUMBER DATE DATE TYPE LINDA, [id number] F 52 11/17/22 1 [facility] [id number] ROOM: [facility] DATE OF : 1970 DICTATING PHYSICIAN: Eyal [...] is Vaibhav Mckeon. His phone number is [phone]. I did talk with him. He states [...] Eyal Franco DO 11/17/22 19:25 JOB #: [id number] Transcribed By: am 11/18/22 12:09 Page 1 of 2 EVER MCKEON Emergency Room Report LINDA EVER : 1970 Electronically signed by: Dr. Eyal Franco DO 11/21/22 07:12 Page 2 of 2 EVER MCKEON Emergency Room Report EMERGENCY REPORT [facility] Normal [facility] EMERGENCY ROOM REPORT NAME ACCOUNT SEX AGE ADMIT DISCHARGE PT MED. RECORD# NUMBER DATE DATE TYPE LINDA [id number] F 52 11/17/22 1 EVER [id number] ROOM: [facility] DATE OF : 1970 DICTATING PHYSICIAN: Eyal [...] Room Report EVER MCKEON : 1970 minute. [place] is normal. MT, QRS, and QT intervals are grossly normal. [place] is normal. There is no acute ST-T [...] By: Eyal Franco, 11/17/22 17:49 JOB #: [id number] Transcribed By: am 11/18/22 11:46 Electronically signed by: Dr. Eyal Franco, 11/21/22 07:12 Page 2 of 2 EVER MCKEON Emergency Room Report CBC + DIFF on 11-18-2022 ANISO 2+ Normal [facility] Comment on above: Performed By: #### [id number] ## ## [place] [address] Baso # 0.00 x10EE3/UL Normal 0.00 - 0.10 [facility] Comment on above: Performed By: #### [id number] ## ## [place] [address] Basophils/100 WBC (Bld) 1.0 % Normal 0.0 - 2.0 [facility] Comment on above: Performed By: #### [id number] ## ## [facility],[address] [place] [address] CBC + DIFF Normal [facility] Comment on above: Result Comment: CBC-COMPLETE BLOOD COUNT Performed By: #### [id number] ## ## [place] [address] EO # 0.30 x10EE3/UL Normal 0.00 - 0.50 [facility] Comment on above: Performed By: #### [id number] ## ## [place] [address] Eosinophils/100 WBC (Bld) 6.8 % Normal 0.0 - 7.0 [facility] Comment on above: Performed By: #### [id number] ## ## [facility],[address] [place], [place] [id number] Erythrocyte distribution width 25.2 % High 12.0 - 15. 6 [facility] (RBC) [Ratio] [facility] Comment on above: Performed By: #### [id number] ## ## [facility],[address] [place] [address] Hematocrit (Bld) [Volume 36.0 % Normal 34.0 - 46.0 [facility] Comment on above: Performed By: #### [id number] ## ## [facility],[address] [place], [place] [address] Hemoglobin (Bld) [Mass/Vol] 11.8 g/dL Low 12.0 - 16.0 [facility] Comment on above: Performed By: #### [id number] ## ## [facility],[address] [place] [address] HYPOCHROM 1+ Normal [facility] Comment on above: Performed By: #### [id number] ## ## [facility],[address] [place], [place] [address] Lymph # 1.20 x10EE3/UL Normal 0.80 - 2.80 [facility] Comment on above: Performed By: #### [id number] ## ## [facility],[address] [place] [address] Lymphocytes/100 WBC (Bld) 26.2 % Normal 20.0 - 45.0 [facility] Comment on above: Performed By: #### [id number] ## ## [facility],[address] [place] [address] MANUAL DIFF N/A Normal [facility] Comment on above: Performed By: #### [id number] ## ## [facility] [facility] [address] MCH (RBC) [Entitic mass] 28 pg Normal 27 - 33 [facility] Comment on above: Performed By: #### [id number] ## ## [facility],[address] [facility] [address] MCHC 33 X10 3 Normal 32 - 36 [facility] Comment on above: Performed By: #### [id number] ## ## [facility],[address] [place] [address] MCV (RBC) [Entitic vol] 85 fL Normal 80 - 99 [facility] Comment on above: Performed By: #### [id number] ## ## [facility],[address] [place] [address] MICROCYTES 2+ Normal [facility] Comment on above: Performed By: #### [id number] ## ## [facility],[address] [place] [address] Luna # 0.60 x10EE3/UL Normal 0.20 - 1.00 [facility] Comment on above: Performed By: #### [id number] ## ## [facility],[address] [place] [address]956 MONOS % 13.1 % High 0.0 - 10.0 [facility] Comment on above: Performed By: #### [id number] ## ## [facility],[address] [place] [address] Morphology Giovanni (Bld) [Interp] SEE BELOW Normal [facility] Comment on above: Performed By: #### [id number] ## ## [facility],[address] [facility] [address] Neut # 2.40 x10EE3/UL Normal 1.50 - 7.10 [facility] Comment on above: Performed By: #### [id number] ## ## [facility],[address] [place] [address]69 Neutrophils/100 WBC (Bld) 52.9 % Normal 46.0 - 76.0 [facility] Comment on above: Performed By: #### [id number] ## ## [facility],[address] [place] [address]19 PLATELET 87 x10EE3/UL Low 150 - 450 [facility] Comment on above: Performed By: #### [id number] ## ## [facility],[address] [place] [address]2229 Platelet mean volume (Bld) 8.2 fL Normal 6.6 - 10.5 [facility] [[facility]] [facility] Comment on above: Result Comment: AUTOMATED DI FFERENTIAL Performed By: #### [id number] ## ## [facility],[address] [place], [place] [id number] POIKILO 1+ Normal [facility] Comment on above: Result Comment: {CD] Performed By: #### [id number] ## ## [facility],[address] [place] [address] 30617 RBC 4.24 x 10EE6/UL Normal 4.10 - 5.30 [facility] Comment on above: Performed By: #### [id number] ## ## [facility],[address] [place] [address]30 WBC 4.6 x 10EE3/UL Normal 4.5 - 10.8 [facility] Comment on above: Performed By: #### [id number] ## ## [facility],[address] [place] [address] 23823 CMP with eGFR on 11-18-2022 AGE 52 years Normal [facility] Comment on above: Performed By: #### [id number] ## ##[facility],[address] [place] [address] 82974 Albumin [Mass/Vol] 2.7 g/dL Low 3.4 - 5.0 [facility] Comment on above: Performed By: #### [id number] ## ##[facility],[address] [place] [address]396 Albumin/Globulin [Mass ratio] 0.8 {ratio} Low 0.9 - 1.6 [facility] Comment on above: Performed By: #### [id number] ## ##[facility],[address] [place] [address]35 ALK PHOS 125 U/L High 46 - 116 [facility] Comment on above: Performed By: #### [id number] ## ##[facility],[address] [place] [address] 01907 ALT [Catalytic activity/Vol] 29 U/L Normal 14 - 59 [facility] Comment on above: Performed By: #### [id number] ## ##[facility],[address] [place] [address] 47231 Anion gap [Moles/Vol] 13 mmol/L Normal 10 - 20 [facility] Comment on above: Performed By: #### [id number] ## ##[facility],[address] [place] [address] 89094 AST [Catalytic activity/Vol] 47 U/L High 13 - 39 [facility] Comment on above: Performed By: #### [id number] ## ##[facility],[address] [place] [address] 93559 B/C RATIO 17 ratio Normal 0 - 30 [facility] Comment on above: Performed By: #### [id number] ## ##[facility],[address] [place] [address] 86458 Bilirubin [Mass/Vol] 0.8 mg/dL Normal 0.2 - 1.0 [facility] Comment on above: Performed By: #### [id number] ## ##[facility],[address] [place] [address] 51869 Calcium [Mass/Vol] 9.2 mg/dL Normal 8.5 - 10.1 [facility] Comment on above: Performed By: #### [id number] ## ##[facility],[address] [place] [address] 30852 Chloride [Moles/Vol] 113 mmol/L High 98 - 107 [facility] Comment on above: Performed By: #### [id number] ## ##[facility],[address] [place] [address] 29640 CMP with eGFR Normal [facility] Comment on above: Result Comment: COMPREHENSIV E METABOLIC PANEL Performed By: #### [id number] ## ##[facility],[address] [place] [address] 56307 CO2 [Moles/Vol] 25.5 mmol/L Normal 21.0 - 32.0 [facility] [facility] Comment on above: Performed By: #### [id number] ## ##[facility],[address] [place] [address] 25875 Creatinine [Mass/Vol] 0.82 mg/dL Normal 0.55 - 1.02 [facility] Comment on above: Performed By: #### [id number] ## ##[facility],[address] [place] [address] 58836 GFR/1.73 sq M.predicted mL/min/{1.73_m2} Normal 60 - 999 [facility] among non-blacks MDRD Hospit al (S/P/Bld) [Vol rate/Area] Comment on above: Performed By: #### [id number] ## ##[facility],[address] [place], [place] [id number] Result Comment: ACCORDING TO THE NATIONAL KIDNEY [...] g/dL Normal 1.5 - 3.8 [facility] Comment on above: Performed By: #### [id number] ## ##[facility],[address] [place] [address] 80769 Glucose [Mass/Vol] 93 mg/dL Normal 74 - 106 [facility] Comment on above: Performed By: #### [id number] ## ##[facility],[address] [place] [address] 05058 Potassium [Moles/Vol] 4.1 mmol/L Normal 3.5 - 5.1 [facility] Comment on above: Performed By: #### [id number] ## ##[facility],[address] [place] [address] 38526 Protein [Mass/Vol] 6.2 g/dL Low 6.4 - 8.2 [facility] Comment on above: Performed By: #### [id number] ## ##[facility],[address] [place] [address] 62954 Sodium [Moles/Vol] 147 mmol/L High 136 - 145 [facility] Comment on above: Performed By: #### [id number] ## ##[facility],[address] [place] [address] 69027 Urea nitrogen [Mass/Vol] 14 mg/dL Normal 7 - 18 [facility] Comment on above: Performed By: #### [id number] ## ##[facility],[address] [place] [address] 02984 TROPONIN I, HIGH SENSITIVITY on 023 HS TROPONIN 7.1 pg/mL Normal 0.0 - 51.4 [facility] Comment on above: Performed By: #### [id number] ## ## [facility],[address] [place] [address] 61460 HS TROPONIN 7.3 pg/mL Normal 0.0 - 51.4 [facility] Comment on above: Performed By: #### [id number] ## ## [facility],[address] [place] [address] ALCOHOL-BLOOD MEDICAL on 11-17-2022 Ethanol [Mass/Vol] 5 mg/dL Normal 0 - 50 [facility] Comment on above: Performed By: #### [id number] ## ##[place] [address] AMMONIA on 11-17-2022 Ammonia (P) [Moles/Vol] 99.0 umol/L High 11.0 - 32.0 [facility] Comment on above: Performed By: #### [id number] ## ## [facility],[address] [place] [address] APTT on 11-17-2022 aPTT Coag (Bld) [Time] 29.8 s Normal 25.4 - 38.4 [facility] Comment on above: Performed By: #### [id number] ## ##[facility],[address] [place] [address] Bacteria Ur Cult on 11-17-2022 Bacteria identified Cx Nom ORGANISM ID: 1 Normal [facility] (U) >=100,000 CFU/ml Normal urogenital shaneka Hendrix Comment on above: Performed By: #### [id number] ### # [facility] CLIA [id number] [address] [place] [address] [place] CBC + DIFF on 11-17-2022 ANISO 3+ Normal [facility] Comment on above: Result Comment: {CD] Performed By: #### [id number] ## ## [facility],[address] [place] [address] Baso # 0.00 x10EE3/UL Normal 0.00 - 0.10 [facility] Comment on above: Performed By: #### [id number] ## ## [facility],[address],[place] [address] Basophils/100 WBC (Bld) 0.9 % Normal 0.0 - 2.0 [facility] Comment on above: Performed By: #### [id number] ## ## [facility],[address] [place], [place] [id number] CBC + DIFF Normal [facility] Comment on above: Result Comment: CBC-COMPLETE BLOOD COUNT Performed By: #### [id number] ## ## [facility],[address] [place] [address] EO # 0.30 x10EE3/UL Normal 0.00 - 0.50 [facility] Comment on above: Performed By: #### [id number] ## ## [facility],[address] [place] [address] Eosinophils/100 WBC (Bld) 6.8 % Normal 0.0 - 7.0 [facility] Comment on above: Performed By: #### [id number] ## ## [facility],[address] [place] [address] Erythrocyte distribution width 25.7 % High 12.0 - 15. 6 [facility] (RBC) [Ratio] [facility] Comment on above: Performed By: #### [id number] ## ## [facility],[address] [place] [address] Hematocrit (Bld) [Volume 43.3 % Normal 34.0 - 46.0 [facility]] [facility] Comment on above: Performed By: #### [id number] ## ## [facility],[address] [place], [place] [id number] Hemoglobin (Bld) [Mass/Vol] 13.8 g/dL Normal 12.0 - 16.0 [facility] Comment on above: Performed By: #### [id number] ## ## [facility],[address] [place] [address] Lymph # 0.70 x10EE3/UL Low 0.80 - 2.80 [facility] Comment on above: Performed By: #### [id number] ## ## [facility],[address] [place] [address] 06364 Lymphocytes/100 WBC (Bld) 16.6 % Low 20.0 - 45.0 [facility] Comment on above: Performed By: #### [id number] ## ## [facility],[address] [place] [address] 99040 MANUAL DIFF REVIEWED Normal [facility] Comment on above: Performed By: #### [id number] ## ## [facility],[address] [place] [address] 89670 MCH (RBC) [Entitic mass] 27 pg Normal 27 - 33 [facility] Comment on above: Performed By: #### [id number] ## ## [facility],[address] [place] [address] 82555 MCHC 32 X10 3 Normal 32 - 36 [facility] Comment on above: Performed By: #### [id number] ## ## [facility],[address] [place] [address] 56332 MCV (RBC) [Entitic vol] 86 fL Normal 80 - 99 [facility] Comment on above: Performed By: #### [id number] ## ## [facility],[address] [place] [address] 64116 Luna # 0.40 x10EE3/UL Normal 0.20 - 1.00 [facility] Comment on above: Performed By: #### [id number] ## ## [facility],[address] [place] [address] 37188 MONOS % 9.5 % Normal 0.0 - 10.0 [facility] Comment on above: Performed By: #### [id number] ## ## [facility],[address] [place] [address] 97626 Morphology Giovanni (Bld) [Interp] SEE BELOW Normal [facility] Comment on above: Performed By: #### [id number] ## ## [facility],[address] [place] [address] 03318 Neut # 2.80 x10EE3/UL Normal 1.50 - 7.10 [facility] Comment on above: Performed By: #### [id number] ## ## [facility],[address] [place] [address] 07873 Neutrophils/100 WBC (Bld) 66.2 % Normal 46.0 - 76.0 [facility] Comment on above: Performed By: #### [id number] ## ## [facility],[address] [place] [address] 41618 PLATELET 95 x10EE3/UL Low 150 - 450 [facility] Comment on above: Performed By: #### [id number] ## ## [facility],[address] [place] [address] 65311 Platelet mean volume (Bld) 8.8 fL Normal 6.6 - 10.5 [facility] [[facility] Comment on above: Result Comment: AUTOMATED DI FFERENTIAL Performed By: #### [id number] ## ## [facility],[address] [place] [address] 99483 RBC 5.05 x 10EE6/UL Normal 4.10 - 5.30 [facility] Comment on above: Performed By: #### [id number] ## ## [facility],[address] [place] [address] 78496 WBC 4.3 x 10EE3/UL Low 4.5 - 10.8 [facility] Comment on above: Performed By: #### [id number] ## ## [facility],[address] [place] [address] 41513 CHEST 1 VIEW on 11-17-[address] [facility] Normal [place] [address] Patient: EVER MCKEON Phone#: : 1970 Age: 52 Gender: F Pt. Type: ER Account: [id number] Location: 052 Ordering: EYAL FRANCO Exam Date: 11/17/2022/16:38 Family Phys: Charge Code: [id number] Physician: Dupage Order #: [id number] Dose#: PROCEDURE: X-RAY CHEST 1 VIEW COMPARISON: [facility], XR, CHEST 1 VIEW, 2022, 19:10. [...] eGFR on 11-17-2022 AGE 52 years Normal [facility] Comment on above: Performed By: #### [id number] ## ## [facility],[address] [place] [address] 98829 Albumin [Mass/Vol] 3.4 g/dL Normal 3.4 - 5.0 [facility] Comment on above: Performed By: #### [id number] ## ## [facility],[address] [place] [address] 85304 Albumin/Globulin [Mass ratio] 0.9 {ratio} Normal 0.9 - 1.6 [facility] Comment on above: Performed By: #### [id number] ## ## [facility],[address] [place] [address] 13581 ALK PHOS 173 U/L High 46 - 116 [facility] Comment on above: Performed By: #### [id number] ## ## [facility],[address] [place] [address] 91431 ALT [Catalytic activity/Vol] 38 U/L Normal 14 - 59 [facility] Comment on above: Performed By: #### [id number] ## ## [facility],[address] [place] [address] 53594 Anion gap [Moles/Vol] 13 mmol/L Normal 10 - 20 [facility] Comment on above: Performed By: #### [id number] ## ## [facility],[address] [place] [address] 97044 AST [Catalytic activity/Vol] 58 U/L High 13 - 39 [facility] Comment on above: Performed By: #### [id number] ## ## [facility],[address] [place] [address] 81905 B/C RATIO 17 ratio Normal 0 - 30 [facility] Comment on above: Performed By: #### [id number] ## ## [facility],[address] [place] [address] 61188 Bilirubin [Mass/Vol] 1.0 mg/dL Normal 0.2 - 1.0 [facility] Comment on above: Performed By: #### [id number] ## ## [facility],[address] [place] [address] 03187 Calcium [Mass/Vol] 9.5 mg/dL Normal 8.5 - 10.1 [facility] Comment on above: Performed By: #### [id number] ## ## [facility],[address] [place] [address] 28084 Chloride [Moles/Vol] 111 mmol/L High 98 - 107 [facility] Comment on above: Performed By: #### [id number] ## ## [facility],[address] [place] [address] 90976 CMP with eGFR Normal [facility] Comment on above: Result Comment: COMPREHENSIV E METABOLIC PANEL Performed By: #### [id number] ## ## [facility],[address] [place] [address] 33385 CO2 [Moles/Vol] 27.7 mmol/L Normal 21.0 - 32.0 [facility] Comment on above: Performed By: #### [id number] ## ## [facility],[address] [place], [place] [address] Creatinine [Mass/Vol] 0.64 mg/dL Normal 0.55 - 1.02 [facility] Comment on above: Performed By: #### [id number] ## ## [facility],[address] [place], [place] [address] GFR/1.73 sq M.predicted mL/min/{1.73_m2} Normal 60 - 999 [facility] among non-blacks MDRD Hospit al (S/P/Bld) [Vol rate/Area] Comment on above: Performed By: #### [id number] ## ## [facility],[address] [place], [place] [address] Result Comment: ACCORDING TO THE NATIONAL KIDNEY [...] g/dL Normal 1.5 - 3.8 [facility] Comment on above: Performed By: #### [id number] ## ## [facility],[address] [place], [place] [address] Glucose [Mass/Vol] 73 mg/dL Low 74 - 106 [facility] Comment on above: Performed By: #### [id number] ## ## [facility],[address] [place] [address] 84767 Potassium [Moles/Vol] 4.8 mmol/L Normal 3.5 - 5.1 [facility] Comment on above: Performed By: #### [id number] ## ## [facility],[address] [place] [address] 86159 Protein [Mass/Vol] 7.2 g/dL Normal 6.4 - 8.2 [facility] Comment on above: Performed By: #### [id number] ## ## [facility],[address] [place] [address] Sodium [Moles/Vol] 147 mmol/L High 136 - 145 [facility] Comment on above: Performed By: #### [id number] ## ## [facility],[address] [place] [address] Urea nitrogen [Mass/Vol] 11 mg/dL Normal 7 - 18 [facility] Comment on above: Performed By: #### [id number] ## ## [facility],[address] [place], [place] [id number] CORONAVIRUS PCR - WILSON on 3 SARS-CoV-2 (COVID-19) RNA Negative Normal NORMAL: NEGATIV E [facility] SAADIA+probe Ql (Unsp spec) Hos pital Comment on above: Performed By: #### [id number] ## ## [facility],[address] [place] [address] SEND TO IC? YES Normal [facility] Comment on above: Result Comment: RESULTS FAXE D TO INFECTION CONTROL. SARS-CoV-2 THIS TEST IS BEING USED UNDE R THE FDA EUA PROCEDURE. THIS ASSAY HAS BEEN VALIDATED IN THE [facility] FOR USE WITH NASOPHARYNGEAL SPECIMENS IN [facility]. INTERPRETIVE DATA LABORATORY TEST RESULTS SHOU LD [...] WITH PUBLIC HEALTH AUTHORITIES. Performed By: #### [id number] ## ## [facility],[address] [place] [address] CT BRAIN W/O CONTRAST on 11-17-2022 CT BRAIN W/O CONTRAST [facility] Normal [place] [address] Patient: EVER MCKEON Phone#: : 1970 Age: 52 Gender: F Pt. Type: ER Account: [id number] Location: [facility] Ordering: EYAL CSERDARELLIK Exam Date: 11/17/2022/16:21 Family Phys: Charge Code: [id number] Physician: Dupage Order #: [id number] Dose#: [id number] PROCEDURE: CT BRAIN WITHOUT CONTRAST COMPARISON: [facility], CT, BRAIN W/O CON, 10/30, 18:38. [...] on 11-17-2022 Microscopic CULTURE BLOOD [DIANA] Normal [facility] examination of blood, _BLOOD CULTURE_ [facility] AND [facility]ACH[facility] FOR SCANNED REPO RT 11/24/[email or web address] Comment on above: Performed By: #### [id number] ## ## [place] [address] Microscopic CULTURE BLOOD [DIANA] Normal [facility] examination of blood, _BLOOD CULTURE_ [facility] culture [facility] AND ATTACH[facility] FOR SCANNED REPO RT 11/24/[email or web address] Comment on above: Performed By: #### [id number] ## ## [place] [address] DRUG SCREEN URINE MEDIC on 11-17-2022 AMPHETAMINES Negative Normal [facility] Comment on above: Performed By: #### [id number] ## ##[place] [address] B-DIAZEPINES Negative Normal [facility] Comment on above: Performed By: #### [id number] ## ##[facility],[address] [place] [address] 56280 BARBITURATES Negative [facility] Comment on above: Performed By: #### [id number] ## ##[facility],[address] [place] [address] 91916 COCAINE Negative [facility] Comment on above: Performed By: #### [id number] ## ##[facility],[address] [place] [address] 97924 DRUG SCREEN URINE MEDIC [facility] Comment on above: Result Comment: DRUG SCREEN - URINE Performed By: #### [id number] ## ##[facility],[address] [place] [address] 25722 METHADONE Negative [facility] Comment on above: Performed By: #### [id number] ## ##[facility],[address] [place] [address] 41040 OPIATES Negative [facility] Comment on above: Performed By: #### [id number] ## ##[facility],[address] [place] [address] 31954 PCP Negative [facility] Comment on above: Performed By: #### [id number] ## ##[facility],[address] [place] [address] 13841 THC Negative [facility] Comment on above: Result Comment: PATIENTS REC EIVING PROTON PUMP INHIBITORS MAY DEMONSTRATE FALSE POSITIVE THC/CANNABINOID RESULTS. AN ALTERNATIVE CONFIRMATORY METHOD SHOULD BE CONSIDERED TO VERIFY POSITIVE RESULTS. Performed By: #### [id number] ## ##[facility],[address] [place] [address] 09984 INFLUENZA VIRUS RAPID A/B on 3 INFLUENZA VIRUS RAPID [facility]ZA [facility] B NEGATIVE INTERNAL NEG QC [...] NO Comment on above: Performed By: #### [id number] ## ##[place] [address] LACTATE on 11-17-2022 Lactate [Moles/Vol] 0.7 mmol/L Normal 0.4 - 2.0 [facility] Comment on above: Performed By: #### [id number] ## ## [facility],[address] [place], [place] [address] PROTHROMBIN TIME AND INR on 11-17-2022 INR Coag (PPP) [Relative time] 1.1 {INR} Normal 0.8 - 1.2 [facility] Comment on above: Result Comment: [...] MECHANICAL HEART V JOSEPH Performed By: #### [id number] ## ## [facility],[address] [place], [place] [address] PROTHROMBIN TIME AND INR Normal [facility] Comment on above: Result Comment: PROTHROMBIN TIME AND INR Performed By: #### [id number] ## ## [facility],[address],[place] [address] PT-COUMADIN 13.3 sec Normal 9.3 - 14.1 [facility] Comment on above: Performed By: #### [id number] ## ## [facility],[address] [place] [address] 28779 TROPONIN I, HIGH SENSITIVITY on 023 HS TROPONIN 7.8 pg/mL Normal 0.0 - 51.4 [facility] Comment on above: Performed By: #### [id number] ## ##[facility],[address] [place] [address] 19297 HS TROPONIN 7.9 pg/mL Normal 0.0 - 51.4 [facility] Comment on above: Performed By: #### [id number] ## ## [facility],[address] [place] [address] 83092 URINALYSIS on 11-17-2022 Amorphous NONE Normal [facility] Comment on above: Performed By: #### [id number] ## ## [facility],[address] [place] [address] 06370 Bacteria 2+ Normal [facility] Comment on above: Performed By: #### [id number] ## ## [facility],[address] [place] [address] 36084 Bilirubin Ql (U) Negative Normal NORMAL: NEGATIVE [facility] Comment on above: Performed By: #### [id number] ## ## [facility],[address] [place] [address] 87892 Casts NONE Normal [facility] Comment on above: Performed By: #### [id number] ## ## [facility],[address] [place] [address] 84687 Clarity (U) clear Normal NORMAL: CLEAR [facility] Comment on above: Performed By: #### [id number] ## ## [facility],[address] [place] [address] 00103 Color (U) p.yel Normal NORMAL: YELLOW [facility] Comment on above: Performed By: #### [id number] ## ## [facility],[address] [place] [address] 98354 Crystals LM Nom (Urine sed) NONE Normal [facility] Comment on above: Performed By: #### [id number] ## ## [facility],[address] [place] [address] 53014 Epi Cells FEW Normal [facility] Comment on above: Performed By: #### [id number] ## ## [facility],[address] [place] [address],[facility] [address] Glucose Ql (U) NORM Normal NORMAL: NORMAL [place] Comment on above: Performed By: #### [id number] ## ## [facility],[address] [place] [address] 58852 Hemoglobin Ql (U) 10 Abnormal NORMAL: NEGATIVE [facility] Comment on above: Performed By: #### [id number] ## ## [facility],[address] [place] [address] 55705 Ketone Negative Normal NORMAL: NEGATIVE [place] Comment on above: Performed By: #### [id number] ## ## [facility],[address] [place] [address] 18250 Leukocytes Negative Normal NORMAL: NEGATIVE [place] Comment on above: Performed By: #### [id number] ## ## [facility],[address] [place] [address] 52683 Mucous NONE Normal [facility] Comment on above: Performed By: #### [id number] ## ## [facility],[address] [place] [address] 65587 Nitrite Ql (U) Negative Normal NORMAL: NEGATIVE [facility] Comment on above: Performed By: #### [id number] ## ## [facility],[address] [place] [address] pH (U) 7 [pH] Normal NORMAL: 5.0-8.0 [facility] Comment on above: Performed By: #### [id number] ## ## [facility],[address] [place] [address] Protein Ql (U) Negative Normal NORMAL: NEGATIVE [facility] Comment on above: Performed By: #### [id number] ## ## [facility],[address] [place] [address] Rbc 0-5 Normal 0-3/hpf [facility] Comment on above: Performed By: #### [id number] ## ## [facility],[address] [place] [address] Sp [place] 1.005 Low NORMAL: 1.010-1.030 [facility] Comment on above: Performed By: #### [id number] ## ## [facility],[address] [place] [address] Specimen Type UNSPECIFIED Normal [facility] Comment on above: Performed By: #### [id number] ## ## [facility],[address] [place] [address] Urinalysis dipstick W Reflex SEE BELOW Normal [facility] Microscopic panel (U) Comment on above: Result Comment: MICROSCOPIC Performed By: #### [id number] ## ## [facility],[address] [place] [address] Urobilinog 1 Abnormal NORMAL: NORMAL [facility] Comment on above: Performed By: #### [id number] ## ## [facility],[address] [place] [address] Wbc 1-5 Normal 0-5/hpf [facility] Comment on above: Performed By: #### [id number] ## ## [facility],[address] [place] [address] Yeast NONE Normal [facility] Comment on above: Performed By: #### [id number] ## ## [facility],[address] [place] [id number] URINE CULTURE [CCL] on 11-17-2022 Bacteria identified Cx URCUL Normal [facility] Nom (U) See Results Below Hospital See Below CULTURE, URINE NORMAL UROGENITAL SHANEKA >=100,000 CFU/ml Normal urogenital shaneka SOURCE: URINE [facility] [address] [place] [address] Aristeo Malloy III, M.D. [id number] Comment on above: Performed By: #### [id number] ## ## [facility],[address] [place] [id number] EMERGENCY REPORT on 11-12-2022 EMERGENCY REPORT [facility] Normal [facility] EMERGENCY ROOM REPORT NAME ACCOUNT SEX AGE ADMIT DISCHARGE PT MED. RECORD# NUMBER DATE DATE TYPE LINDA, [id number] F 52 10/30/22 10/31/22 3 [facility] [id number] ROOM: ER DATE OF : 1970 DICTATING [...] to consult. So I spoke with the [place] transfer line since this patient had been admitted up there at [place] in September of 2022 for same problem. I spo ke with Dr. Woodward, the hospitalist on [facility]. He d id accept the patient for admission, direct admission to their regular medical floor under his service. Presently we are awaiting a bed assignment. Once we have that we will ca ll an ambulance for EMS transfer to [place] for direct admission and for the therapy. DIAGNOSES: 1. Hepatic encephalopathy. 2. Altered mental status secondary to number one. 3. Influenza A. Dictated By: Saw River DO 10/30/22 21:41 JOB #: [id number] Transcribed By: kandice 11/02/22 00:53 Electronically signed by: E-Sign: Dr. Saw River D.O. 11/12/22 06:41 Page 1 of 2 [facility] Emergency Room Report [facility] : 1970 Page 2 of 2 [facility] Emergency Room Report CNPN on 11-10-2022 [place]ERT[place] Telephone (ROSALBA) Normal [facility] ([id number]) 1970 F Medical Date Time Provider Department [...] Basophil, Absolute 0.0 10 3/mcL Normal 0.0-0.3 [facility] ([place]) Comment on above: Performed By: #### CMP, GFR, AMM, LAC, HEPAC #### [facility] [address] [place], [place] [address] Basophils/100 WBC (Bld) 0.7 % Normal 0.0-2.5 [facility] ([place]) Comment on above: Performed By: #### CMP, GFR, AMM, LAC, HEPAC #### [address] [address] Eosinophil, Absolute 0.3 10 3/mcL Normal 0.0-0.7 [facility] ([place]) Comment on above: Performed By: #### CMP, GFR, AMM, LAC, HEPAC #### [address] [address] Eosinophils/100 WBC (Bld) 6.0 % Normal 0.0-6.0 [facility] ([place]) Comment on above: Performed By: #### CMP, GFR, AMM, LAC, HEPAC #### [address] [address] Lymphocyte, Absolute 1.5 10 3/mcL Normal 0.9-4.3 [facility] ([place]) Comment on above: Performed By: #### CMP, GFR, AMM, LAC, HEPAC #### [address] [address] Lymphocytes/100 WBC (Bld) 25.3 % Normal 20.0-40.0 [facility] ([place] Comment on above: Performed By: #### CMP, GFR, AMM, LAC, HEPAC #### [address] [address] Monocyte, Absolute 0.8 10 3/mcL Normal 0.1-1.4 [facility] ([place]) Comment on above: Performed By: #### CMP, GFR, AMM, LAC, HEPAC #### [address] [address] Monocytes/100 WBC (Bld) 14.4 % High 2.0-13.0 [facility] ([place]) Comment on above: Performed By: #### CMP, GFR, AMM, LAC, HEPAC #### [address] [address] Neutrophils/100 WBC (Bld) 53.6 % Normal 50.0-75.0 [facility] ([place] Comment on above: Performed By: #### CMP, GFR, AMM, LAC, HEPAC #### [address] [address] .GFR on 11-02-2022 GFR Non- >60 Normal [facility] ([place]) Comment on above: Result Comment: GFR Population mean for Afri can Egyptian, Non- Americans Ages 20-29 = 116 mL/min/1.73 [...] #### CMP, GFR, AMM, LAC, HEPAC #### [place] [address] GFR >60 Normal [facility] ([place]) Comment on above: Result Comment: GFR Population mean for Afri can Egyptian, Non- Americans Ages 20-29 = 116 mL/min/1.73 [...] #### CMP, GFR, AMM, LAC, HEPAC #### [address] [address] .Morph on 11-02-2022 Anisocytosis Ql (Bld) 2+ Normal [facility] ([place]) Comment on above: Performed By: #### CMP, GFR, AMM, LAC, HEPAC #### [address] [address] Ovalocytes 1+ Normal [facility] ([place]) Comment on above: Performed By: #### CMP, GFR, AMM, LAC, HEPAC #### [place] [address] Platelet Estimate Decreased Normal [facility] ([place]) Comment on above: Performed By: #### CMP, GFR, AMM, LAC, HEPAC #### [address] [address] Poik 1+ Normal [facility] ([place]) Comment on above: Performed By: #### CMP, GFR, AMM, LAC, HEPAC #### [place] [address] Tear Cell 1+ Normal [facility] ([place] Comment on above: Performed By: #### CMP, GFR, AMM, LAC, HEPAC #### [address] [address] .NEUABS on 11-02-2022 Neutrophil, Absolute 3.1 10 3/mcL Normal 2.3-8.1 [facility] ([place] Comment on above: Performed By: #### CMP, GFR, AMM, LAC, HEPAC #### [place] [id number] AMM on 11-02-2022 Ammonia 111 mcmol/l High 11-32 [facility] ([place]) Comment on above: Performed By: #### CMP, GFR, AMM, LAC, HEPAC #### [address] [address] BMP on 11-02-2022 BUN/Creatinine Ratio 23.7 ratio High 10.0-22.0 [facility] ([place]) Comment on above: Performed By: #### CMP, GFR, AMM, LAC, HEPAC #### [place] [address] Calcium [Mass/Vol] 9.5 mg/dL Normal 8.7-10.4 [facility] ([place]) Comment on above: Performed By: #### CMP, GFR, AMM, LAC, HEPAC #### [address] [address] Chloride [Moles/Vol] 110 mmol/L Normal 98-110 [facility] ([place]) Comment on above: Performed By: #### CMP, GFR, AMM, LAC, HEPAC #### [address] [address] CO2 [Moles/Vol] 27 mmol/L Normal 22-32 [facility] ([place]) Comment on above: Performed By: #### CMP, GFR, AMM, LAC, HEPAC #### [address] [address] Creatinine [Mass/Vol] 0.76 mg/dL Normal 0.50-1.20 [facility] ([place]) Comment on above: Performed By: #### CMP, GFR, AMM, LAC, HEPAC #### [address] [address] Electrolyte Balance 4.0 mEq/L Normal 4.0-15.0 [facility] ([place]) Comment on above: Performed By: #### CMP, GFR, AMM, LAC, HEPAC #### [address] [address] Glucose [Mass/Vol] 82 mg/dL Normal 70-110 [facility] ([place]) Comment on above: Performed By: #### CMP, GFR, AMM, LAC, HEPAC #### [address] [address] Potassium [Moles/Vol] 3.8 mmol/L Normal 3.5-5.0 [facility] ([place]) Comment on above: Performed By: #### CMP, GFR, AMM, LAC, HEPAC #### [address] [address] Sodium [Moles/Vol] 141 mmol/L Normal 136-145 [facility] ([place]) Comment on above: Performed By: #### CMP, GFR, AMM, LAC, HEPAC #### [place] [id number] Urea nitrogen [Mass/Vol] 18.0 mg/dL Normal 8.0-22.0 [facility] ([place]) Comment on above: Performed By: #### CMP, GFR, AMM, LAC, HEPAC #### [place] [id number] CBC on 11-02-2022 Erythrocyte distribution width 27.7 % High 11.5-15.5 [facility] ([place]) (RBC) [Ratio] Comment on above: Performed By: #### CMP, GFR, AMM, LAC, HEPAC #### [place] [id number] Hematocrit (Bld) [Volume 35.6 % Normal 34.0-46.0 [facility] ([place]) fraction] Comment on above: Performed By: #### CMP, GFR, AMM, LAC, HEPAC #### [place] [id number] Hgb 11.7 G/dL Low 12.0-16.0 [facility] ([place]) Comment on above: Performed By: #### CMP, GFR, AMM, LAC, HEPAC #### [place] [address] MCH (RBC) [Entitic mass] 27.1 pg Normal 27.0-33.0 [facility] ([place]) Comment on above: Performed By: #### CMP, GFR, AMM, LAC, HEPAC #### [place] [id number] MCHC 32.9 G/dL Normal 32.0-36.0 [facility] ([place]) Comment on above: Performed By: #### CMP, GFR, AMM, LAC, HEPAC #### [place] [address] MCV (RBC) [Entitic vol] 82.5 fL Normal 80.0-99.0 [facility] ([place]) Comment on above: Performed By: #### CMP, GFR, AMM, LAC, HEPAC #### [facility] [address] [place] [address] Platelet 69 10 3/mcL Low 150-450 [facility] ([place]) Comment on above: Performed By: #### CMP, GFR, AMM, LAC, HEPAC #### [facility] [address] [place] [address] Platelet mean volume (Bld) 8.6 fL Normal 6.6-10.5 A [facility] ([place]) [Entitic vol] Comment on above: Performed By: #### CMP, GFR, AMM, LAC, HEPAC #### [address] [address] RBC 4.31 10 6/mcL Normal 4.10-5.30 [facility] ([place]) Comment on above: Performed By: #### CMP, GFR, AMM, LAC, HEPAC #### [address] [address] WBC 5.8 10 3/mcL Normal 4.5-10.8 [facility] ([place]) Comment on above: Performed By: #### CMP, GFR, AMM, LAC, HEPAC #### [address] [address] LABORATORY Ordered By: Gogo Campbell on 11-02-2022 Blood Glucose Routine [facility] al Testing Reason (11/02/22 8:11 AM) Work Phon e: Glucose 94 mg/dL Invalid Interpretation 70 - 110 [facility] [Mass/Vol] Code mg/dL Work Phone: LABORATORY Ordered [...] Basophil, Absolute 0.0 10 3/mcL Normal 0.0-0.3 [facility] ([place]) Comment on above: Performed By: #### CMP, GFR, AMM, LAC, HEPAC #### [address] [address] Basophils/100 WBC (Bld) 0.7 % Normal 0.0-2.5 [facility] ([place]) Comment on above: Performed By: #### CMP, GFR, AMM, LAC, HEPAC #### [address] [address] Eosinophil, Absolute 0.3 10 3/mcL Normal 0.0-0.7 [facility] ([place]) Comment on above: Performed By: #### CMP, GFR, AMM, LAC, HEPAC #### [address] [address] Eosinophils/100 WBC (Bld) 4.6 % Normal 0.0-6.0 [facility] ([place]) Comment on above: Performed By: #### CMP, GFR, AMM, LAC, HEPAC #### [address] [address] Lymphocyte, Absolute 1.0 10 3/mcL Normal 0.9-4.3 [facility] ([place]) Comment on above: Performed By: #### CMP, GFR, AMM, LAC, HEPAC #### [address] [address] Lymphocytes/100 WBC (Bld) 16.9 % Low 20.0-40.0 [facility] ([place]) Comment on above: Performed By: #### CMP, GFR, AMM, LAC, HEPAC #### [address] [address] Monocyte, Absolute 0.8 10 3/mcL Normal 0.1-1.4 [facility] ([place]) Comment on above: Performed By: #### CMP, GFR, AMM, LAC, HEPAC #### [address] [address] Monocytes/100 WBC (Bld) 14.5 % High 2.0-13.0 [facility] ([place]) Comment on above: Performed By: #### CMP, GFR, AMM, LAC, HEPAC #### [address] [address] Neutrophils/100 WBC (Bld) 63.3 % Normal 50.0-75.0 [facility] ([place]) Comment on above: Performed By: #### CMP, GFR, AMM, LAC, HEPAC #### [address] [address] .GFR on 11-01-2022 GFR >60 Normal [facility] ([place]) Comment on above: Result Comment: GFR Population mean for Afri can Egyptian, Non- Americans Ages 20-29 = 116 mL/min/1.73 [...] #### CMP, GFR, AMM, LAC, HEPAC #### [address] [address] GFR Non- >60 Normal [facility] ([place]) Comment on above: Result Comment: GFR Population mean for Afri can Egyptian, Non- Americans Ages 20-29 = 116 mL/min/1.73 [...] #### CMP, GFR, AMM, LAC, HEPAC #### [address] [address] .Morph on 11-01-2022 Anisocytosis Ql (Bld) 2+ Normal [facility] ([place]) Comment on above: Performed By: #### CMP, GFR, AMM, LAC, HEPAC #### [place] [address] Ovalocytes 1+ Normal [facility] ([place]) Comment on above: Performed By: #### CMP, GFR, AMM, LAC, HEPAC #### [place] [address] Platelet Estimate Decreased Normal [facility] ([place]) Comment on above: Performed By: #### CMP, GFR, AMM, LAC, HEPAC #### [place] [address] Poik 1+ Normal [facility] ([place]) Comment on above: Performed By: #### CMP, GFR, AMM, LAC, HEPAC #### [place] [address] Tear Cell 1+ Normal [facility] ([place]) Comment on above: Performed By: #### CMP, GFR, AMM, LAC, HEPAC #### [place] [address] .NEUABS on 11-01-2022 Neutrophil, Absolute 3.6 10 3/mcL Normal 2.3-8.1 [facility] ([place] Comment on above: Performed By: #### CMP, GFR, AMM, LAC, HEPAC #### [place] [address] AMM on 11-01-2022 Ammonia 77 mcmol/l High 11-32 [facility] ([place]) Comment on above: Performed By: #### CMP, GFR, AMM, LAC, HEPAC #### [address] [address] BMP on 11-01-2022 BUN/Creatinine Ratio 21.4 ratio Normal 10.0-22.0 [facility] ([place]) Comment on above: Performed By: #### CMP, GFR, AMM, LAC, HEPAC #### [address] [address] Calcium [Mass/Vol] 9.6 mg/dL Normal 8.7-10.4 [facility] ([place]) Comment on above: Performed By: #### CMP, GFR, AMM, LAC, HEPAC #### [place] [id number] Chloride [Moles/Vol] 109 mmol/L Normal 98-110 [facility] ([place]) Comment on above: Performed By: #### CMP, GFR, AMM, LAC, HEPAC #### [place] [id number] CO2 [Moles/Vol] 24 mmol/L Normal 22-32 [facility] ([place]) Comment on above: Performed By: #### CMP, GFR, AMM, LAC, HEPAC #### [place] [id number] Creatinine [Mass/Vol] 0.70 mg/dL Normal 0.50-1.20 [facility] ([place]) Comment on above: Performed By: #### CMP, GFR, AMM, LAC, HEPAC #### [place] [id number] Electrolyte Balance 8.0 mEq/L Normal 4.0-15.0 [facility] ([place]) Comment on above: Performed By: #### CMP, GFR, AMM, LAC, HEPAC #### [place] [id number] Glucose [Mass/Vol] 132 mg/dL High 70-110 [facility] ([place]) Comment on above: Performed By: #### CMP, GFR, AMM, LAC, HEPAC #### [place] [id number] Potassium [Moles/Vol] 3.9 mmol/L Normal 3.5-5.0 [facility] ([place]) Comment on above: Performed By: #### CMP, GFR, AMM, LAC, HEPAC #### [address] [address] Sodium [Moles/Vol] 141 mmol/L Normal 136-145 [facility] ([place]) Comment on above: Performed By: #### CMP, GFR, AMM, LAC, HEPAC #### [place] [id number] Urea nitrogen [Mass/Vol] 15.0 mg/dL Normal 8.0-22.0 [facility] ([place]) Comment on above: Performed By: #### CMP, GFR, AMM, LAC, HEPAC #### [address] [address] CBC on 11-01-2022 Erythrocyte distribution width 27.9 % High 11.5-15.5 [facility] ([place]) (RBC) [Ratio] Comment on above: Performed By: #### CMP, GFR, AMM, LAC, HEPAC #### [place] [address] Hematocrit (Bld) [Volume 38.7 % Normal 34.0-46.0 [facility] ([place]) fraction] Comment on above: Performed By: #### CMP, GFR, AMM, LAC, HEPAC #### [place] [id number] Hgb 12.4 G/dL Normal 12.0-16.0 [facility] ([place]) Comment on above: Performed By: #### CMP, GFR, AMM, LAC, HEPAC #### [address] [address] MCH (RBC) [Entitic mass] 26.7 pg Low 27.0-33.0 [facility] ([place]) Comment on above: Performed By: #### CMP, GFR, AMM, LAC, HEPAC #### [place] [id number] MCHC 32.0 G/dL Normal 32.0-36.0 [facility] ([place]) Comment on above: Performed By: #### CMP, GFR, AMM, LAC, HEPAC #### [address] [address] MCV (RBC) [Entitic vol] 83.2 fL Normal 80.0-99.0 [facility] ([place]) Comment on above: Performed By: #### CMP, GFR, AMM, LAC, HEPAC #### [place] [id number] Platelet 70 10 3/mcL Low 150-450 [facility] ([place]) Comment on above: Performed By: #### CMP, GFR, AMM, LAC, HEPAC #### [place] [id number] Platelet mean volume (Bld) 8.6 fL Normal 6.6-10.5 A [facility] ([place]) [Entitic vol] Comment on above: Performed By: #### CMP, GFR, AMM, LAC, HEPAC #### [place] [id number] RBC 4.66 10 6/mcL Normal 4.10-5.30 [facility] ([place]) Comment on above: Performed By: #### CMP, GFR, AMM, LAC, HEPAC #### [place] [id number] WBC 5.8 10 3/mcL Normal 4.5-10.8 [facility] ([place]) Comment on above: Performed By: #### CMP, GFR, AMM, LAC, HEPAC #### [place] [id number] EMERGENCY REPORT on 11-01-2022 EMERGENCY REPORT [facility] Normal [facility] EMERGENCY ROOM REPORT NAME ACCOUNT SEX AGE ADMIT DISCHARGE PT MED. RECORD# NUMBER DATE DATE TYPE LINDA [id number] F 52 10/30/22 10/31/22 3 [facility] [id number] ROOM: ER DATE OF : 1970 DICTATING [...] We did ask her to do the [id number] test, and she did that very poorly. [...] [Mass/Vol] 106 mg/dL Invalid 70 - 110 [facility] Interpretation Code mg/dL Work Adolfo ne: Blood Glucose Routine [facility] al Testing Reason (11/01/22 4:34 PM) Work Phon e: Glucose [Mass/Vol] 112 mg/dL Invalid 70 - 110 [facility] Interpretation Code mg/dL Work Adolfo ne: LABORATORY Ordered By: Wolf Choi on 0 11-01-2022 Blood Glucose Testing Reason Routine [facility] (11/01/22 12:57 PM) Blood Glucose Interventions Administered food/juice [facility] (11/01/22 12:11 PM) LABORATORY Ordered By: [employer] on 11-01-2022 Ammonia (P) 77 umol/L Invalid [...] Basophil, Absolute 0.0 10 3/mcL Normal 0.0-0.3 [facility] ([place]) Comment on above: Performed By: #### GFR, MG, PRO, CMP, AMM #### [address] [address] Basophils/100 WBC (Bld) 1.0 % Normal 0.0-2.5 [facility] ([place]) Comment on above: Performed By: #### GFR, MG, PRO, CMP, AMM #### [address] [address] Eosinophil, Absolute 0.3 10 3/mcL Normal 0.0-0.7 [facility] ([place]) Comment on above: Performed By: #### GFR, MG, PRO, CMP, AMM #### [address] [address] Eosinophils/100 WBC (Bld) 7.3 % High 0.0-6.0 [facility] ([place]) Comment on above: Performed By: #### GFR, MG, PRO, CMP, AMM #### [address] [address] Lymphocyte, Absolute 1.2 10 3/mcL Normal 0.9-4.3 [facility] ([place]) Comment on above: Performed By: #### GFR, MG, PRO, CMP, AMM #### [address] [address] Lymphocytes/100 WBC (Bld) 27.6 % Normal 20.0-40.0 [facility] ([place]) Comment on above: Performed By: #### GFR, MG, PRO, CMP, AMM #### [address] [address] Monocyte, Absolute 0.6 10 3/mcL Normal 0.1-1.4 [facility] ([place]) Comment on above: Performed By: #### GFR, MG, PRO, CMP, AMM #### [address] [address] Monocytes/100 WBC (Bld) 13.2 % High 2.0-13.0 [facility] ([place]) Comment on above: Performed By: #### GFR, MG, PRO, CMP, AMM #### [address] [address] Neutrophils/100 WBC (Bld) 50.9 % Normal 50.0-75.0 [facility] ([place] Comment on above: Performed By: #### GFR, MG, PRO, CMP, AMM #### [address] [address] .GFR on 10-31-2022 GFR Non- >60 Normal [facility] ([place]) Comment on above: Result Comment: GFR Population mean for Afri can Egyptian, Non- Americans Ages 20-29 = 116 mL/min/1.73 [...] square meters Performed By: #### LAC #### [place] [address] GFR >60 Normal [facility] ([place]) Comment on above: Result Comment: GFR Population mean for Afri can Egyptian, Non- Americans Ages 20-29 = 116 mL/min/1.73 [...] square meters Performed By: #### LAC #### [address] [address] .Morph on 10-31-2022 Anisocytosis Ql (Bld) 2+ Normal [facility] ([place]) Comment on above: Performed By: #### GFR, MG, PRO, CMP, AMM #### [place] [address] Ovalocytes 1+ Normal [facility] ([place]) Comment on above: Performed By: #### GFR, MG, PRO, CMP, AMM #### [place] [address] Platelet Estimate Decreased Normal [facility] ([place]) Comment on above: Performed By: #### GFR, MG, PRO, CMP, AMM #### [place] [address] Poik 1+ Normal [facility] ([place]) Comment on above: Performed By: #### GFR, MG, PRO, CMP, AMM #### [place] [address] Tear Cell 1+ Normal [facility] ([place] Comment on above: Performed By: #### GFR, MG, PRO, CMP, AMM #### [place] [address] .NEUABS on 10-31-2022 Neutrophil, Absolute 2.2 10 3/mcL Low 2.3-8.1 [facility]) Comment on above: Performed By: #### GFR, MG, PRO, CMP, AMM #### [place] [address] AMM on 10-31-2022 Ammonia 127 mcmol/l High 11-32 [facility] ([place] Comment on above: Performed By: #### LAC #### [place] [address] CBC on 10-31-2022 Erythrocyte distribution width 28.4 % High 11.5-15.5 [facility] ([place] (RBC) [Ratio] Comment on above: Performed By: #### LAC #### [place] [address] Hematocrit (Bld) [Volume 37.5 % Normal 34.0-46.0 [facility] ([place]) fraction] Comment on above: Performed By: #### LAC #### [place] [address] Hgb 12.1 G/dL Normal 12.0-16.0 [facility] ([place]) Comment on above: Performed By: #### LAC #### [address] [address] MCH (RBC) [Entitic mass] 26.8 pg Low 27.0-33.0 [facility] ([place]) Comment on above: Performed By: #### LAC #### [place] [id number] MCHC 32.3 G/dL Normal 32.0-36.0 [facility] ([place] Comment on above: Performed By: #### LAC #### [place] [id number] MCV (RBC) [Entitic vol] 83.1 fL Normal 80.0-99.0 [facility] ([place]) Comment on above: Performed By: #### LAC #### [place] [address] Platelet 80 10 3/mcL Low 150-450 [facility] ([place] Comment on above: Performed By: #### LAC #### [place] [address] Platelet mean volume (Bld) 8.6 fL Normal 6.6-10.5 A [facility] ([place] [Entitic vol] Comment on above: Performed By: #### LAC #### [place] [address] RBC 4.51 10 6/mcL Normal 4.10-5.30 [facility] ([place] Comment on above: Performed By: #### LAC #### [place] [address] WBC 4.3 10 3/mcL Low 4.5-10.8 [facility] ([place] Comment on above: Performed By: #### LAC #### [place] [id number] CMP on 10-31-2022 Albumin Level 3.3 G/dL Normal 3.2-4.8 [facility] ([place] Comment on above: Performed By: #### LAC #### [place] [address] Albumin/Globulin [Mass ratio] 1.0 {ratio} Normal 0.9-1.6 [facility] ([place] Comment on above: Performed By: #### LAC #### [address] [address] ALP [Catalytic activity/Vol] 135 U/L High 38-126 [facility] ([place] Comment on above: Performed By: #### LAC #### [address] [address] ALT [Catalytic activity/Vol] 25 U/L Normal 10-49 [facility] ([place] Comment on above: Performed By: #### LAC #### [address] [address] AST [Catalytic activity/Vol] 41 U/L High 8-34 [facility] ([place] Comment on above: Performed By: #### LAC #### [address] [address] Bili Total 1.40 mg/dL High 0.20-1.20 [facility] ([place] Comment on above: Result Comment: Use of this assay is not recommended for patients undergoing treatment with eltrombopag d ue to the potential for falsely elevated results. Performed By: #### LAC #### [place] [id number] BUN/Creatinine Ratio 18.3 ratio Normal 10.0-22.0 [facility] ([place] Comment on above: Performed By: #### LAC #### [address] [address] Calcium [Mass/Vol] 9.4 mg/dL Normal 8.7-10.4 [facility] ([place]) Comment on above: Performed By: #### LAC #### [address] [address] Chloride [Moles/Vol] 111 mmol/L High 98-110 [facility] ([place] Comment on above: Performed By: #### LAC #### [address] [address] CO2 [Moles/Vol] 22 mmol/L Normal 22-32 [facility] ([place]) Comment on above: Performed By: #### LAC #### [address] [address] Creatinine [Mass/Vol] 0.82 mg/dL Normal 0.50-1.20 [facility] ([place]) Comment on above: Performed By: #### LAC #### [address] [address] Electrolyte Balance 9.0 mEq/L Normal 4.0-15.0 [facility] ([place]) Comment on above: Performed By: #### LAC #### [address] [address] Globulin 3.2 G/dL Normal 1.5-3.8 [facility] ([place]) Comment on above: Performed By: #### LAC #### [place] [id number] Glucose [Mass/Vol] 244 mg/dL High 70-110 [facility] ([place]) Comment on above: Performed By: #### LAC #### [place] [id number] Potassium [Moles/Vol] 4.0 mmol/L Normal 3.5-5.0 [facility] ([place]) Comment on above: Performed By: #### LAC #### [place] [id number] Sodium [Moles/Vol] 142 mmol/L Normal 136-145 [facility] ([place]) Comment on above: Performed By: #### LAC #### [place] [id number] Total Protein 6.5 G/dL Normal 5.7-8.2 [facility] ([place]) Comment on above: Result Comment: Note - New Reference Range in effect 20 Performed By: #### LAC #### [address] [address] Urea nitrogen [Mass/Vol] 15.0 mg/dL Normal 8.0-22.0 [facility] ([place]) Comment on above: Performed By: #### LAC #### [address] [address] LABORATORY Ordered By: SYSTEM SYSTEM on 10-31-2022 [...] 10-31-2022 Magnesium [Mass/Vol] 2.0 mg/dL Normal 1.6-2.4 [facility] ([place]) Comment on above: Performed By: #### LAC #### [address] [address] PRO on 10-31-2022 INR Coag (PPP) [Relative time] 1.2 {INR} Normal [facility] ([place]) Comment on above: Result Comment: [employer] (CHEST, 1992, 102:312S-25S) recommended therapeutic rang e for oral anticoagulant therapy is: LOW RISK: Prophylaxis of starr ous thrombosis INR: 2.0-3.0 Treatment of pulmonary embol ism 2.0-3.0 Prevention of systemic embol ism 2.0-3.0 HIGH RISK: Mechanical prosth etic valves 2.5-3.5 Performed By: #### LAC #### [address] [address] PT Coag (PPP) [Time] 15.0 s High 9.0-14.9 [facility] ([place]) Comment on above: Result Comment: Effective , Protime results may be affected by some antibiotics (i.e. Ci profloxacin, Azithromycin, Bactrim) which may potentiate the act ion of oral anticoagulants, with further increases in Protime /INR. Performed By: #### LAC #### [place] [address] ALCOHOL-BLOOD MEDICAL on 10-30-2022 Ethanol [Mass/Vol] mg/dL Normal 0 - 50 [facility] Comment on above: Performed By: #### [id number] ## ## [facility],[address] [place] [address] AMMONIA on 10-30-2022 Ammonia (P) [Moles/Vol] 110.0 umol/L High 11.0 - 32.0 [facility] Comment on above: Performed By: #### [id number] ## ## [facility],[address] [place] [address] CBC (NO DIFF) on 10-30-2022 CBC panel Auto (Bld) Normal [facility] Comment on above: Result Comment: CBC(WITHOUT DIFFERENTIAL) Performed By: #### [id number] ## ## [facility],[address] [place] [address] Erythrocyte distribution width 27.7 % High 12.0 - 15. 6 [facility] (RBC) [Ratio] [facility] Comment on above: Performed By: #### [id number] ## ## [facility],[address] [place], [place] [id number] Hematocrit (Bld) [Volume 41.3 % Normal 34.0 - 46.0 [facility] Comment on above: Performed By: #### [id number] ## ## [facility],[address] [place], [place] [id number] Hemoglobin (Bld) [Mass/Vol] 13.2 g/dL Normal 12.0 - 16.0 [facility] Comment on above: Performed By: #### [id number] ## ## [facility],[address] [place], [place] [id number] MCH (RBC) [Entitic mass] 26 pg Low 27 - 33 [facility] Comment on above: Performed By: #### [id number] ## ## [facility],[address] [place], [place] [id number] MCHC 32 X10 3 Normal 32 - 36 [facility] Comment on above: Performed By: #### [id number] ## ## [facility],[address] [place], [place] [id number] MCV (RBC) [Entitic vol] 82 fL Normal 80 - 99 [facility] Comment on above: Performed By: #### [id number] ## ## [facility],[address] [place] [address] PLATELET 84 x10EE3/UL Low 150 - 450 [facility] Comment on above: Performed By: #### [id number] ## ## [facility],[address] [place], [place] [id number] Platelet mean volume (Bld) 8.5 fL Normal 6.6 - 10.5 J oel [facility] [Entitic [facility]] [facility] Comment on above: Result Comment: {CB] Performed By: #### [id number] ## ## [facility],[address] [place] [address]45 RBC 5.03 x 10EE6/UL Normal 4.10 - 5.30 [facility] Comment on above: Performed By: #### [id number] ## ## [facility],[address] [place] [address] WBC 4.1 x 10EE3/UL Low 4.5 - 10.8 [facility] Comment on above: Performed By: #### [id number] ## ## [facility],[address] [place] [address] CHEST 1 VIEW on 10-30-2022 CHEST 1 VIEW [place] [address] Patient: EVER MCKEON Phone#: : 1970 Age: 52 Gender: F Pt. Type: ER Account: [id number] Location: [facility] Ordering: SAW RIVER Exam Date: 10/30/2022/19:10 Family Phys: Charge Code: [id number] Physician: Dupage Order #: [id number] Dose#: PROCEDURE: X-RAY CHEST 1 VIEW COMPARISON: [facility], XR, CHEST 1 VIEW, 10/02, 23:20. [...] eGFR on 10-30-2022 AGE 52 years Normal [facility] Comment on above: Performed By: #### [id number] ## ##[facility],[address] [place] [address] Albumin [Mass/Vol] 3.6 g/dL Normal 3.4 - 5.0 [facility] Comment on above: Performed By: #### [id number] ## ##[facility],[address] [place] [address] Albumin/Globulin [Mass ratio] 0.9 {ratio} Normal 0.9 - 1.6 [facility] Comment on above: Performed By: #### [id number] ## ##[facility],[address] [place] [address]62 ALK PHOS 179 U/L High 46 - 116 [facility] Comment on above: Performed By: #### [id number] ## ##[facility],[address] [place] [address]403 ALT [Catalytic activity/Vol] 33 U/L Normal 14 - 59 [facility] Comment on above: Performed By: #### [id number] ## ##[facility],[address] [place] [address] Anion gap [Moles/Vol] 15 mmol/L Normal 10 - 20 [facility] Comment on above: Performed By: #### [id number] ## ##[facility],[address] [place] [address] AST [Catalytic activity/Vol] 47 U/L High 13 - 39 [facility] Comment on above: Performed By: #### [id number] ## ##[facility],[address] [place] [address] B/C RATIO 15 ratio Normal 0 - 30 [facility] Comment on above: Performed By: #### [id number] ## ##[facility],[address] [place] [address]108 Bilirubin [Mass/Vol] 1.2 mg/dL High 0.2 - 1.0 [facility] Comment on above: Performed By: #### [id number] ## ##[facility],[address] [place] [address] Calcium [Mass/Vol] 9.4 mg/dL Normal 8.5 - 10.1 [facility] Comment on above: Performed By: #### [id number] ## ##[facility],[address] [place] [address]95 Chloride [Moles/Vol] 108 mmol/L High 98 - 107 [facility] Comment on above: Performed By: #### [id number] ## ##[facility],[address] [place] [address] 22961 CMP with eGFR Normal [facility] Comment on above: Result Comment: COMPREHENSIV E METABOLIC PANEL Performed By: #### [id number] ## ##[facility],[address] [place] [address] CO2 [Moles/Vol] 24.0 mmol/L Normal 21.0 - 32.0 [facility] Comment on above: Performed By: #### [id number] ## ##[facility],[address] [place] [address] Creatinine [Mass/Vol] 0.67 mg/dL Normal 0.55 - 1.02 [facility] Comment on above: Performed By: #### [id number] ## ##[facility],[address] [place] [address] GFR/1.73 sq M.predicted mL/min/{1.73_m2} Normal 60 - 999 [facility] among non-blacks MDRD Hospit al (S/P/Bld) [Vol rate/Area] Comment on above: Performed By: #### [id number] ## ##[facility],[address] [place] [address] Result Comment: ACCORDING TO THE NATIONAL KIDNEY [...] g/dL High 1.5 - 3.8 [facility] Comment on above: Performed By: #### [id number] ## ##[facility],[address] [place] [address] Glucose [Mass/Vol] 95 mg/dL Normal 74 - 106 [facility] Comment on above: Performed By: #### [id number] ## ##[facility],[address] [place] [address] 13793 Potassium [Moles/Vol] 4.5 mmol/L Normal 3.5 - 5.1 [facility] Comment on above: Performed By: #### [id number] ## ##[facility],[address] [place] [address] Protein [Mass/Vol] 7.6 g/dL Normal 6.4 - 8.2 [facility] Comment on above: Performed By: #### [id number] ## ##[facility],[address] [place] [address] Sodium [Moles/Vol] 142 mmol/L Normal 136 - 145 [facility] Comment on above: Performed By: #### [id number] ## ##[facility],[address] [place] [address] 82507 Urea nitrogen [Mass/Vol] 10 mg/dL Normal 7 - 18 [facility] Comment on above: Performed By: #### [id number] ## ##[facility],[address] [place] [address] CORONAVIRUS PCR - WILSON on 3 SARS-CoV-2 (COVID-19) RNA Negative Normal NORMAL: NEGATIV E [facility] SAADIA+probe Ql (Unsp spec) Hos pital Comment on above: Performed By: #### [id number] ## ## [facility],[address] [place] [address] SEND TO ? YES Normal [facility] Comment on above: Result Comment: RESULTS FAXE D TO INFECTION CONTROL. SARS-CoV-2 THIS TEST IS BEING USED UNDE R THE FDA EUA PROCEDURE. THIS ASSAY HAS BEEN VALIDATED IN THE [facility] FOR USE WITH NASOPHARYNGEAL SPECIMENS IN [facility]. INTERPRETIVE DATA LABORATORY TEST RESULTS SHOU LD [...] WITH PUBLIC HEALTH AUTHORITIES. Performed By: #### [id number] ## ## [facility],[address] [place] [address] CT BRAIN W/O CONTRAST on 10-30-2022 CT BRAIN W/O CONTRAST [facility] Normal [place] [address] [place], [place] [address] Patient: EVER MCKEON Phone#: : 1970 Age: 52 Gender: F Pt. Type: ER Account: [id number] Location: 052 Ordering: PAULO GARCIA Exam Date: 10/30/2022/18:38 Family Phys: Charge Code: [id number] Physician: Dupage Order #: [id number] Dose#: [id number] PROCEDURE: CT BRAIN WITHOUT CONTRAST COMPARISON: [facility], CT, BRAIN W/O CON, 06/2022, 23:14. INDICATIONS: Altered mental status. TECHNIQUE: CT images were obtained without contrast ky saman. All CT scans at this facilit [...] Maria examination of blood, _BLOOD CULTURE_ Mem [facility] culture GO TO [facility] REPORTS AND ATTACHMENTS FOR SCANNED REPO RT 11/06/[email or web address] Comment on above: Performed By: #### [id number] ## ## [facility],[address] [facility] [address] Microscopic CULTURE BLOOD [DIANA] Normal [facility] examination of blood, _BLOOD CULTURE_ [facility] culture [facility]ACH[facility] FOR SCANNED REPO RT 11/06/[email or web address] Comment on above: Performed By: #### [id number] ## ## [facility],[address] [facility] [address] DRUG SCREEN URINE MEDIC on 10-30-2022 AMPHETAMINES Negative Normal [facility] Comment on above: Performed By: #### [id number] ## ## [facility],[address] [place] [address] B-DIAZEPINES Negative [facility] Comment on above: Performed By: #### [id number] ## ## [facility],[address] [place] [address] BARBITURATES Negative [facility] Comment on above: Performed By: #### [id number] ## ## [facility],[address] [place] [address] COCAINE Negative [facility] Comment on above: Performed By: #### [id number] ## ## [facility],[address] [place] [address]28 DRUG SCREEN URINE MEDIC Normal [facility] Comment on above: Result Comment: DRUG SCREEN - URINE Performed By: #### [id number] ## ## [facility],[address] [facility] [address] METHADONE Negative [facility] Comment on above: Performed By: #### [id number] ## ## [facility],[address] [place] [address] OPIATES Negative [facility] Comment on above: Performed By: #### [id number] ## ## [facility],[address] [place] [address] PCP Negative Normal [facility] Comment on above: Performed By: #### [id number] ## ## [facility],[address] [place] [address] 82890 THC Negative Normal [facility] Comment on above: Result Comment: PATIENTS REC EIVING PROTON PUMP INHIBITORS MAY DEMONSTRATE FALSE POSITIVE THC/CANNABINOID RESULTS. AN ALTERNATIVE CONFIRMATORY METHOD SHOULD BE CONSIDERED TO VERIFY POSITIVE RESULTS. Performed By: #### [id number] ## ## [facility],[address] [place] [address] INFLUENZA VIRUS RAPID A/B on INFLUENZA VIRUS RAPID INFLUENZA A Normal Gigi oliver A/B POSITIVE [facility] al INFLUENZA B NEGATIVE INTERNAL NEG QC [...] BY Comment on above: Performed By: #### [id number] ## ## [facility],[address] [place] [address] LACTATE on 10-30-2022 Lactate [Moles/Vol] 1.0 mmol/L Normal 0.4 - 2.0 [facility] Comment on above: Performed By: #### [id number] ## ## [facility],[address] [place] [address] 40092 NT-proBNP on 10-30-2022 Natriuretic peptide B (Bld) 67 pg/mL Normal 0 - 125 [facility] [[facility] Comment on above: Performed By: #### [id number] ## ##[facility],[address] [place] [address] TROPONIN I, HIGH SENSITIVITY on 023 HS TROPONIN 7.3 pg/mL Normal 0.0 - 51.4 [facility] Comment on above: Performed By: #### [id number] ## ## [facility],[address] [place] [address] URINALYSIS on 10-30-2022 Bilirubin Ql (U) Negative Normal NORMAL: NEGATIVE [facility] Comment on above: Performed By: #### [id number] ## ## [facility],[address] [place] [address]16 Clarity (U) clear Normal NORMAL: CLEAR [facility] Comment on above: Performed By: #### [id number] ## ## [facility],[address] [place] [address] Color (U) art Normal NORMAL: YELLOW [facility] Comment on above: Performed By: #### [id number] ## ## [facility],[address] [place] [address]1709 Glucose Ql (U) NORM Normal NORMAL: NORMAL [place] Comment on above: Performed By: #### [id number] ## ## [facility],[address] [place] [address] Hemoglobin Ql (U) Negative Normal NORMAL: NEGATIVE [facility] Comment on above: Performed By: #### [id number] ## ## [facility],[address] [place] [address] 30153 Ketone Negative Normal NORMAL: NEGATIVE [place] Comment on above: Performed By: #### [id number] ## ## [facility],[address] [place] [address] 21448 Leukocytes Negative Normal NORMAL: NEGATIVE [place] Comment on above: Performed By: #### [id number] ## ## [facility] Hospi tristin,[address] [facility] [address] Nitrite Ql (U) Negative Normal NORMAL: NEGATIVE [facility] Comment on above: Performed By: #### [id number] ## ## [facility] Hospi tristin,[address] [facility] [address] pH (U) 7 [pH] Normal NORMAL: 5.0-8.0 [facility] Comment on above: Performed By: #### [id number] ## ## [facility] Hospi tristin,[address] [facility] [address] Protein Ql (U) 15 Abnormal NORMAL: NEGATIVE [facility] Comment on above: Performed By: #### [id number] ## ## [facility],[address] [facility] [address] Sp [place] 1.005 Low NORMAL: 1.010-1.030 [facility] Comment on above: Performed By: #### [id number] ## ## [facility],[address] [place] [address]40 Specimen Type Void Normal [facility] Comment on above: Performed By: #### [id number] ## ## [facility],[address] [place] [address] 98490 Urinalysis dipstick W Reflex NOT INDICATED Normal [facility] Microscopic panel (U) Hospit al Comment on above: Performed By: #### [id number] ## ## [facility] Hospi tristin,[address] [facility] [address] Urobilinog 1 Abnormal NORMAL: NORMAL [facility] Comment on above: Performed By: #### [id number] ## ## [facility] Hospi tristin,[address] [facility] [address] Progress Note on 10-16-2022 Progress Note . Normal [facility] S ystem [facility] [facility] [address] Dept: [phone] Dept Visit type: Established patient Reason for Visit: Follow-up Assessment and Plan 1. Hepatic encephalopathy 2. Alcoholic cirrhosis, unspecified whether ascites pr esent (HCC) - Chronic, uncontrolled. Rec ommenrobbie continuing lactulose and scheduling her tests that were requested from [facility] discharge instruction s. Patient plans on establishing with a new PCP and social worker health services that are closer to her new home in [place] because she has difficulty getting to [place]. Follow up in about 3 months (around 01/14/2023). Subjective Patient presents today for hospital follow up. According to patient she was admitted at [facility] 10/02- 10/07. Ran out of lactulose and [...] established with them due to moving to [facility] and not having a ride. She [...] Reviewed and Summarized Labs: Imaging/Testing: Tim Drew, EMPLOYEE COUNSELOR - GRAPHICS EDITOR EMERGENCY REPORT on 10-09-2022 EMERGENCY REPORT [facility] Normal Gigi P [facility] EMERGENCY ROOM REPORT NAME ACCOUNT SEX AGE ADMIT DISCHARGE PT MED. RECORD# NUMBER DATE DATE TYPE LINDA, [id number] F 51 10/02/22 10/03/22 3 [facility] [id number] ROOM: ER DATE OF : 1970 DICTATING [...] acute S T segment changes are noted. [place] is approximately [address] scan of [...] the case with Dr. Melgar, our hospitalist field contact technician but he felt that the patient should be transferred to a higher level of care. I did talk to [facility]. They presently h ave no beds right now. They can put us on a waiting list, which they did. I also spoke with [facility] and Dr. Garcia, the hospitalist field contact technician [facility] did accept the patie nt for admission to their stepdown unit with a monitored bed. They do not have a bed right now but they do anticipate having a bed later this morning. At this point, it looks like the patient will be admitted to [facility] once we obtain Page 1 of 2 [...] will most likely admit the patient to [facility]. Please see the written document for final patient disposition. Dictated By: [place] DO 10/03/22 05:15 JOB #: [id number] Transcribed By: mike 10/04/22 07:48 Electronically signed by: E-Sign: Dr. [place] River D.O. 10/09/22 06:47 Page 2 of 2 EVER MCKEON Emergency Room Report EMERGENCY REPORT [facility] Normal Gigi P [facility] EMERGENCY ROOM REPORT NAME ACCOUNT SEX AGE ADMIT DISCHARGE PT MED. RECORD# NUMBER DATE DATE TYPE LINDA [id number] F 51 10/02/22 10/03/22 3 EVER [id number] ROOM: ER DATE OF : 1970 DICTATING [...] motor or sensory deficits are noted. 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 Skin is somewhat pale [...] Basophil, Absolute 0.0 10 3/mcL Normal 0.0-0.3 [facility] ([place]) Comment on above: Performed By: #### CMP, GFR, AMM, LAC, HEPAC #### [address] [address] Basophils/100 WBC (Bld) 0.8 % Normal 0.0-2.5 [facility] ([place]) Comment on above: Performed By: #### CMP, GFR, AMM, LAC, HEPAC #### [address] [address] Eosinophil, Absolute 0.4 10 3/mcL Normal 0.0-0.7 [facility] ([place]) Comment on above: Performed By: #### CMP, GFR, AMM, LAC, HEPAC #### [address] [address] Eosinophils/100 WBC (Bld) 9.6 % High 0.0-6.0 [facility] ([place]) Comment on above: Performed By: #### CMP, GFR, AMM, LAC, HEPAC #### [address] [address] Lymphocyte, Absolute 0.9 10 3/mcL Normal 0.9-4.3 [facility] ([place]) Comment on above: Performed By: #### CMP, GFR, AMM, LAC, HEPAC #### [address] [address] Lymphocytes/100 WBC (Bld) 22.9 % Normal 20.0-40.0 [facility] ([place]) Comment on above: Performed By: #### CMP, GFR, AMM, LAC, HEPAC #### [address] [address] Monocyte, Absolute 0.7 10 3/mcL Normal 0.1-1.4 [facility] ([place]) Comment on above: Performed By: #### CMP, GFR, AMM, LAC, HEPAC #### [address] [address] Monocytes/100 WBC (Bld) 16.4 % High 2.0-13.0 [facility] ([place]) Comment on above: Performed By: #### CMP, GFR, AMM, LAC, HEPAC #### [address] [address] Neutrophils/100 WBC (Bld) 50.3 % Normal 50.0-75.0 [facility] ([place]) Comment on above: Performed By: #### CMP, GFR, AMM, LAC, HEPAC #### [address] [address] .GFR on 10-07-2022 GFR Non- >60 Normal [facility] ([place]) Comment on above: Result Comment: GFR Population mean for Afri can Egyptian, Non- Americans Ages 20-29 = 116 mL/min/1.73 [...] #### CMP, GFR, AMM, LAC, HEPAC #### [address] [address] GFR >60 Normal [facility] ([place]) Comment on above: Result Comment: GFR Population mean for Afri can Egyptian, Non- Americans Ages 20-29 = 116 mL/min/1.73 [...] #### CMP, GFR, AMM, LAC, HEPAC #### [address] [address] .NEUABS on 10-07-2022 Neutrophil, Absolute 2.0 10 3/mcL Low 2.3-8.1 [facility] ([place]) Comment on above: Performed By: #### CMP, GFR, AMM, LAC, HEPAC #### [address] [address] AMM on 10-07-2022 Ammonia 69 mcmol/l High 11-32 [facility] ([place]) Comment on above: Result Comment: Specimen sli ghtly hemolyzed. Performed By: #### CMP, GFR, AMM, LAC, HEPAC #### [address] [address] CBC on 10-07-2022 Erythrocyte distribution width 18.1 % High 11.5-15.5 [facility] ([place]) (RBC) [Ratio] Comment on above: Performed By: #### CMP, GFR, AMM, LAC, HEPAC #### [address] [address] Hematocrit (Bld) [Volume 29.5 % Low 34.0-46.0 [facility] ([place]) fraction] Comment on above: Performed By: #### CMP, GFR, AMM, LAC, HEPAC #### [address] [address] Hgb 9.3 G/dL Low 12.0-16.0 [facility] ([place]) Comment on above: Performed By: #### CMP, GFR, AMM, LAC, HEPAC #### [address] [address] MCH (RBC) [Entitic mass] 23.2 pg Low 27.0-33.0 l [facility] ([place]) Comment on above: Performed By: #### CMP, GFR, AMM, LAC, HEPAC #### [place] [address] MCHC 31.5 G/dL Low 32.0-36.0 [facility] ([place]) Comment on above: Performed By: #### CMP, GFR, AMM, LAC, HEPAC #### [place] [address] MCV (RBC) [Entitic vol] 73.6 fL Low 80.0-99.0 [facility] ([place]) Comment on above: Performed By: #### CMP, GFR, AMM, LAC, HEPAC #### [place] [address] Platelet 82 10 3/mcL Low 150-450 [facility] ([place]) Comment on above: Performed By: #### CMP, GFR, AMM, LAC, HEPAC #### [place] [address] Platelet mean volume (Bld) 9.1 fL Normal 6.6-10.5 A [facility] ([place]) [Entitic vol] Comment on above: Performed By: #### CMP, GFR, AMM, LAC, HEPAC #### [place] [address] RBC 4.01 10 6/mcL Low 4.10-5.30 [facility] ([place]) Comment on above: Performed By: #### CMP, GFR, AMM, LAC, HEPAC #### [place] [address] WBC 4.0 10 3/mcL Low 4.5-10.8 [facility] ([place]) Comment on above: Performed By: #### CMP, GFR, AMM, LAC, HEPAC #### [place] [address] CMP on 10-07-2022 Albumin Level 3.4 G/dL Normal 3.2-4.8 [facility] ([place]) Comment on above: Performed By: #### CMP, GFR, AMM, LAC, HEPAC #### [facility] [address] [place], [place] [address] Albumin/Globulin [Mass ratio] 1.3 {ratio} Normal 0.9-1.6 [facility] ([place]) Comment on above: Performed By: #### CMP, GFR, AMM, LAC, HEPAC #### [address] [address] ALP [Catalytic activity/Vol] 122 U/L Normal 38-126 [facility] ([place]) Comment on above: Performed By: #### CMP, GFR, AMM, LAC, HEPAC #### [address] [address] ALT [Catalytic activity/Vol] 26 U/L Normal 10-49 [facility] ([place]) Comment on above: Performed By: #### CMP, GFR, AMM, LAC, HEPAC #### [address] [address] AST [Catalytic activity/Vol] 56 U/L High 8-34 [facility] ([place]) Comment on above: Performed By: #### CMP, GFR, AMM, LAC, HEPAC #### [address] [address] Bili Total 0.70 mg/dL Normal 0.20-1.20 [facility] ([place]) Comment on above: Result Comment: Use of this assay is not recommended for patients undergoing treatment with eltrombopag d ue to the potential for falsely elevated results. Performed By: #### CMP, GFR, AMM, LAC, HEPAC #### [place] [id number] BUN/Creatinine Ratio 16.4 ratio Normal 10.0-22.0 [facility] ([place]) Comment on above: Performed By: #### CMP, GFR, AMM, LAC, HEPAC #### [address] [address] Calcium [Mass/Vol] 9.5 mg/dL Normal 8.7-10.4 [facility] ([place]) Comment on above: Performed By: #### CMP, GFR, AMM, LAC, HEPAC #### [address] [address] Chloride [Moles/Vol] 110 mmol/L Normal 98-110 [facility] ([place]) Comment on above: Performed By: #### CMP, GFR, AMM, LAC, HEPAC #### [address] [address] CO2 [Moles/Vol] 28 mmol/L Normal 22-32 [facility] ([place]) Comment on above: Performed By: #### CMP, GFR, AMM, LAC, HEPAC #### [address] [address] Creatinine [Mass/Vol] 0.61 mg/dL Normal 0.50-1.20 [facility] ([place]) Comment on above: Performed By: #### CMP, GFR, AMM, LAC, HEPAC #### [address] [address] Electrolyte Balance 7.0 mEq/L Normal 4.0-15.0 [facility] ([place]) Comment on above: Performed By: #### CMP, GFR, AMM, LAC, HEPAC #### [address] [address] Globulin 2.6 G/dL Normal 1.5-3.8 [facility] ([place]) Comment on above: Performed By: #### CMP, GFR, AMM, LAC, HEPAC #### [address] [address] Glucose [Mass/Vol] 81 mg/dL Normal 70-110 [facility] ([place]) Comment on above: Performed By: #### CMP, GFR, AMM, LAC, HEPAC #### [address] [address] Potassium [Moles/Vol] 3.6 mmol/L Normal 3.5-5.0 [facility] ([place]) Comment on above: Performed By: #### CMP, GFR, AMM, LAC, HEPAC #### [address] [address] Sodium [Moles/Vol] 145 mmol/L Normal 136-145 [facility] ([place]) Comment on above: Performed By: #### CMP, GFR, AMM, LAC, HEPAC #### [place] [id number] [place], [place] [id number] Total Protein 6.0 G/dL Normal 5.7-8.2 [facility] ([place]) Comment on above: Result Comment: Note - New Reference Range in effect 20 Performed By: #### CMP, GFR, AMM, LAC, HEPAC #### [place] [id number] Urea nitrogen [Mass/Vol] 10.0 mg/dL Normal 8.0-22.0 [facility] ([place]) Comment on above: Performed By: #### CMP, GFR, AMM, LAC, HEPAC #### [place] [id number] ENDO on 10-07-2022 TGT Ab (IGA) <20.0 Normal <=20.0 [facility] ([place]) Comment on above: Result Comment: Effective : [...] used interchangeably. Performed By: #### LAC #### [place] [address] LABORATORY Ordered By: SYSTEM SYSTEM on 10-07-2022 [...] 10-07-2022 Magnesium [Mass/Vol] 2.0 mg/dL Normal 1.6-2.4 [facility] ([place]) Comment on above: Performed By: #### CMP, GFR, AMM, LAC, HEPAC #### [place] [address] PRO on 10-07-2022 INR Coag (PPP) [Relative time] 1.3 {INR} Normal [facility] ([place]) Comment on above: Result Comment: [employer] (CHEST, 1992, 102:[id number]) recommended therapeutic rang e for oral anticoagulant therapy is: LOW RISK: Prophylaxis of starr ous thrombosis INR: 2.0-3.0 Treatment of pulmonary embol ism 2.0-3.0 Prevention of systemic embol ism 2.0-3.0 HIGH RISK: Mechanical prosth etic valves 2.5-3.5 Performed By: #### CMP, GFR, AMM, LAC, HEPAC #### [address] [address] PT Coag (PPP) [Time] 15.7 s High 9.0-14.9 [facility] ([place]) Comment on above: Result Comment: Effective , Protime results may be affected by some antibiotics (i.e. Ci profloxacin, Azithromycin, Bactrim) which may potentiate the act ion of oral anticoagulants, with further increases in Protime /INR. Performed By: #### CMP, GFR, AMM, LAC, HEPAC #### [address] [address] .Auto Diff on 10-06-2022 Basophil, Absolute 0.0 10 3/mcL Normal 0.0-0.3 [facility] ([place]) Comment on above: Performed By: #### CMP, GFR, AMM, LAC, HEPAC #### [address] [address] Basophils/100 WBC (Bld) 1.1 % Normal 0.0-2.5 [facility] ([place]) Comment on above: Performed By: #### CMP, GFR, AMM, LAC, HEPAC #### [address] [address] Eosinophil, Absolute 0.3 10 3/mcL Normal 0.0-0.7 [facility] ([place]) Comment on above: Performed By: #### CMP, GFR, AMM, LAC, HEPAC #### [address] [address] Eosinophils/100 WBC (Bld) 9.2 % High 0.0-6.0 [facility] ([place]) Comment on above: Performed By: #### CMP, GFR, AMM, LAC, HEPAC #### [address] [address] Lymphocyte, Absolute 0.7 10 3/mcL Low 0.9-4.3 [facility] ([place]) Comment on above: Performed By: #### CMP, GFR, AMM, LAC, HEPAC #### [address] [address] Lymphocytes/100 WBC (Bld) 24.2 % Normal 20.0-40.0 [facility] ([place]) Comment on above: Performed By: #### CMP, GFR, AMM, LAC, HEPAC #### [address] [address] Monocyte, Absolute 0.5 10 3/mcL Normal 0.1-1.4 [facility] ([place]) Comment on above: Performed By: #### CMP, GFR, AMM, LAC, HEPAC #### [address] [address] Monocytes/100 WBC (Bld) 15.9 % High 2.0-13.0 [facility] ([place]) Comment on above: Performed By: #### CMP, GFR, AMM, LAC, HEPAC #### [address] [address] Neutrophils/100 WBC (Bld) 49.6 % Low 50.0-75.0 [facility] ([place]) Comment on above: Performed By: #### CMP, GFR, AMM, LAC, HEPAC #### [address] [address] .GFR on 10-06-2022 GFR >60 Normal [facility] ([place]) Comment on above: Result Comment: GFR Population mean for Afri can Egyptian, Non- Americans Ages 20-29 = 116 mL/min/1.73 [...] #### CMP, GFR, AMM, LAC, HEPAC #### [address] [address] GFR Non- >60 Normal [facility] ([place]) Comment on above: Result Comment: GFR Population mean for Afri can Egyptian, Non- Americans Ages 20-29 = 116 mL/min/1.73 [...] #### CMP, GFR, AMM, LAC, HEPAC #### [address] [address] .MITOT on 10-06-2022 Mitochondrial Ab Titer Pos 320 or > Normal [facility] ([place]) Comment on above: Result Comment: An Anti-ora chondrial Antibody (AMA) titer of 1:160 or greater is seen in more than 90% of patients with Primary Biliary Cirrhosis (PBC). AMA may be seen in low titers in 25%-30% of patients with Chronic Active Hepatitis or Cryptogenic Cirrhosis. Performed By: #### LAC #### [address] [address] .NEUABS on 10-06-2022 Neutrophil, Absolute 1.5 10 3/mcL Low 2.3-8.1 [facility] ([place]) Comment on above: Performed By: #### CMP, GFR, AMM, LAC, HEPAC #### [address] [address] AMM on 10-06-2022 Ammonia 217 mcmol/l High 11-32 [facility] ([place]) Comment on above: Performed By: #### CMP, GFR, AMM, LAC, HEPAC #### [address] [address] CBC on 10-06-2022 Erythrocyte distribution width 18.2 % High 11.5-15.5 [facility] ([place]) (RBC) [Ratio] Comment on above: Performed By: #### CMP, GFR, AMM, LAC, HEPAC #### [place] [id number] Hematocrit (Bld) [Volume 28.1 % Low 34.0-46.0 [facility] ([place]) fraction] Comment on above: Performed By: #### CMP, GFR, AMM, LAC, HEPAC #### [place] [id number] Hgb 8.7 G/dL Low 12.0-16.0 [facility] ([place]) Comment on above: Performed By: #### CMP, GFR, AMM, LAC, HEPAC #### [place] [id number] MCH (RBC) [Entitic mass] 22.8 pg Low 27.0-33.0 [facility] ([place]) Comment on above: Performed By: #### CMP, GFR, AMM, LAC, HEPAC #### [place] [id number] MCHC 31.0 G/dL Low 32.0-36.0 [facility] ([place]) Comment on above: Performed By: #### CMP, GFR, AMM, LAC, HEPAC #### [place] [id number] MCV (RBC) [Entitic vol] 73.7 fL Low 80.0-99.0 [facility] ([place]) Comment on above: Performed By: #### CMP, GFR, AMM, LAC, HEPAC #### [place] [id number] Platelet 68 10 3/mcL Low 150-450 [facility] ([place]) Comment on above: Performed By: #### CMP, GFR, AMM, LAC, HEPAC #### [place] [address] Platelet mean volume (Bld) 8.5 fL Normal 6.6-10.5 A [facility] ([place]) [Entitic vol] Comment on above: Performed By: #### CMP, GFR, AMM, LAC, HEPAC #### [address] [address] RBC 3.81 10 6/mcL Low 4.10-5.30 [facility] ([place]) Comment on above: Performed By: #### CMP, GFR, AMM, LAC, HEPAC #### [address] [address] WBC 3.0 10 3/mcL Low 4.5-10.8 [facility] ([place]) Comment on above: Performed By: #### CMP, GFR, AMM, LAC, HEPAC #### [address] [address] CMP on 10-06-2022 Albumin Level 3.5 G/dL Normal 3.2-4.8 [facility] ([place]) Comment on above: Performed By: #### CMP, GFR, AMM, LAC, HEPAC #### [address] [address] Albumin/Globulin [Mass ratio] 1.3 {ratio} Normal 0.9-1.6 [facility] ([place]) Comment on above: Performed By: #### CMP, GFR, AMM, LAC, HEPAC #### [address] [address] ALP [Catalytic activity/Vol] 124 U/L Normal 38-126 [facility] ([place]) Comment on above: Performed By: #### CMP, GFR, AMM, LAC, HEPAC #### [address] [address] ALT [Catalytic activity/Vol] 22 U/L Normal 10-49 [facility] ([place]) Comment on above: Performed By: #### CMP, GFR, AMM, LAC, HEPAC #### [address] [address] AST [Catalytic activity/Vol] 38 U/L High 8-34 [facility] ([place]) Comment on above: Performed By: #### CMP, GFR, AMM, LAC, HEPAC #### [address] [address] Bili Total 0.70 mg/dL Normal 0.20-1.20 [facility] ([place]) Comment on above: Result Comment: Use of this assay is not recommended for patients undergoing treatment with eltrombopag d ue to the potential for falsely elevated results. Performed By: #### CMP, GFR, AMM, LAC, HEPAC #### [address] [address] BUN/Creatinine Ratio 17.5 ratio Normal 10.0-22.0 [facility] ([place]) Comment on above: Performed By: #### CMP, GFR, AMM, LAC, HEPAC #### [place] [id number] Calcium [Mass/Vol] 9.3 mg/dL Normal 8.7-10.4 [facility] ([place]) Comment on above: Performed By: #### CMP, GFR, AMM, LAC, HEPAC #### [place] [id number] Chloride [Moles/Vol] 111 mmol/L High 98-110 [facility] ([place]) Comment on above: Performed By: #### CMP, GFR, AMM, LAC, HEPAC #### [address] [address] CO2 [Moles/Vol] 26 mmol/L Normal 22-32 [facility] ([place]) Comment on above: Performed By: #### CMP, GFR, AMM, LAC, HEPAC #### [address] [address] Creatinine [Mass/Vol] 0.63 mg/dL Normal 0.50-1.20 [facility] ([place]) Comment on above: Performed By: #### CMP, GFR, AMM, LAC, HEPAC #### [address] [address] Electrolyte Balance 8.0 mEq/L Normal 4.0-15.0 [facility] ([place]) Comment on above: Performed By: #### CMP, GFR, AMM, LAC, HEPAC #### [address] [address] Globulin 2.7 G/dL Normal 1.5-3.8 [facility] ([place]) Comment on above: Performed By: #### CMP, GFR, AMM, LAC, HEPAC #### [address] [address] Glucose [Mass/Vol] 126 mg/dL High 70-110 [facility] ([place]) Comment on above: Performed By: #### CMP, GFR, AMM, LAC, HEPAC #### [address] [address] Potassium [Moles/Vol] 3.9 mmol/L Normal 3.5-5.0 [facility] ([place]) Comment on above: Performed By: #### CMP, GFR, AMM, LAC, HEPAC #### [address] [address] Sodium [Moles/Vol] 145 mmol/L Normal 136-145 [facility] ([place]) Comment on above: Performed By: #### CMP, GFR, AMM, LAC, HEPAC #### [place] [id number] Total Protein 6.2 G/dL Normal 5.7-8.2 [facility] ([place]) Comment on above: Result Comment: Note - New Reference Range in effect 20 Performed By: #### CMP, GFR, AMM, LAC, HEPAC #### [address] [address] Urea nitrogen [Mass/Vol] 11.0 mg/dL Normal 8.0-22.0 [facility] ([place]) Comment on above: Performed By: #### CMP, GFR, AMM, LAC, HEPAC #### [address] [address] LABORATORY Ordered By: SYSTEM SYSTEM on 10-06-2022 [...] 10-06-2022 Magnesium [Mass/Vol] 2.0 mg/dL Normal 1.6-2.4 [facility] ([place]) Comment on above: Performed By: #### CMP, GFR, AMM, LAC, HEPAC #### [address] [address] OCC (LAB) on 10-06-2022 Occult Blood Fecal Negative Normal Negative [facility] ([place]) Comment on above: Result Comment: This test ut ilizes the guaiac fecal blood method, which detects peroxidase activity (heme) indicating bleeding from stomach, small intestin e, or large intestine. If bleeding from either upper o r lower gastrointestinal tract is a clinical consider ation, the [facility] recommends the use of both t he guaiac fecal blood test and the Immunochemical fecal blo od test. Performed By: #### CMP, GFR, AMM, LAC, HEPAC #### [address] [address] .KASHIF on 2022 SELIN Pattern 1 Speckled Normal [facility] ([place]) Comment on above: Result Comment: At [facility], an SELIN titer of less than 160 is not considered suggestive of sig nificant rheumatoid disease. If clinical suspicion is high, suggest repeat testing in 1-2 months. Performed By: #### LAC #### [address] [address] SELIN Titer 1 40 Normal [facility] ([place]) Comment on above: Result Comment: strong cytop lasmic (ora) Performed By: #### LAC #### [address] [address] .Auto Diff on 2022 Basophil, Absolute 0.0 10 3/mcL Normal 0.0-0.3 [facility] ([place]) Comment on above: Performed By: #### CMP, GFR, AMM, LAC, HEPAC #### [address] [address] Basophils/100 WBC (Bld) 0.9 % Normal 0.0-2.5 [facility] ([place]) Comment on above: Performed By: #### CMP, GFR, AMM, LAC, HEPAC #### [address] [address] Eosinophil, Absolute 0.2 10 3/mcL Normal 0.0-0.7 [facility] ([place]) Comment on above: Performed By: #### CMP, GFR, AMM, LAC, HEPAC #### [address] [address] Eosinophils/100 WBC (Bld) 5.5 % Normal 0.0-6.0 [facility] ([place]) Comment on above: Performed By: #### CMP, GFR, AMM, LAC, HEPAC #### [address] [address] Lymphocyte, Absolute 1.0 10 3/mcL Normal 0.9-4.3 [facility] ([place]) Comment on above: Performed By: #### CMP, GFR, AMM, LAC, HEPAC #### [address] [address] Lymphocytes/100 WBC (Bld) 30.7 % Normal 20.0-40.0 [facility] ([place]) Comment on above: Performed By: #### CMP, GFR, AMM, LAC, HEPAC #### [address] [address] Monocyte, Absolute 0.4 10 3/mcL Normal 0.1-1.4 [facility] ([place]) Comment on above: Performed By: #### CMP, GFR, AMM, LAC, HEPAC #### [address] [address] Monocytes/100 WBC (Bld) 13.8 % High 2.0-13.0 [facility] ([place]) Comment on above: Performed By: #### CMP, GFR, AMM, LAC, HEPAC #### [address] [address] Neutrophils/100 WBC (Bld) 49.1 % Low 50.0-75.0 [facility] ([place]) Comment on above: Performed By: #### CMP, GFR, AMM, LAC, HEPAC #### [address] [address] .GFR on 2022 GFR >60 Normal [facility] ([place]) Comment on above: Result Comment: GFR Population mean for Afri can Egyptian, Non- Americans Ages 20-29 = 116 mL/min/1.73 [...] #### CMP, GFR, AMM, LAC, HEPAC #### [address] [address] GFR Non- >60 Normal [facility] ([place]) Comment on above: Result Comment: GFR Population mean for Afri can Egyptian, Non- Americans Ages 20-29 = 116 mL/min/1.73 [...] #### CMP, GFR, AMM, LAC, HEPAC #### [address] [address] .NEUABS on 2022 Neutrophil, Absolute 1.6 10 3/mcL Low 2.3-8.1 [facility] ([place]) Comment on above: Performed By: #### CMP, GFR, AMM, LAC, HEPAC #### [place] [id number] AMM on 2022 Ammonia 137 mcmol/l High 11-32 [facility] ([place]) Comment on above: Performed By: #### CMP, GFR, AMM, LAC, HEPAC #### [place] [id number] SELIN on 2022 SELIN See Titer Normal Neg 40 [facility] ([place]) Comment on above: Result Comment: SELIN Screen a nd Titer methodology is an immunofluorescent technique utilizing Hep2 Substrate. Performed By: #### LAC #### [address] [address] CBC on 2022 Erythrocyte distribution width 17.9 % High 11.5-15.5 [facility] ([place]) (RBC) [Ratio] Comment on above: Performed By: #### GFR, MG, PRO, CMP, AMM #### [address] [address] Hematocrit (Bld) [Volume 28.6 % Low 34.0-46.0 [facility] ([place]) fraction] Comment on above: Performed By: #### GFR, MG, PRO, CMP, AMM #### [address] [address] Hgb 9.0 G/dL Low 12.0-16.0 [facility] ([place]) Comment on above: Performed By: #### GFR, MG, PRO, CMP, AMM #### [address] [address] MCH (RBC) [Entitic mass] 22.9 pg Low 27.0-33.0 [facility] ([place]) Comment on above: Performed By: #### GFR, MG, PRO, CMP, AMM #### [place] [address] MCHC 31.6 G/dL Low 32.0-36.0 [facility] ([place]) Comment on above: Performed By: #### GFR, MG, PRO, CMP, AMM #### [place] [address] MCV (RBC) [Entitic vol] 72.6 fL Low 80.0-99.0 [facility] ([place]) Comment on above: Performed By: #### GFR, MG, PRO, CMP, AMM #### [place] [address] Platelet 74 10 3/mcL Low 150-450 [facility] ([place]) Comment on above: Performed By: #### GFR, MG, PRO, CMP, AMM #### [place] [address] Platelet mean volume (Bld) 8.3 fL Normal 6.6-10.5 A [facility] ([place]) [Entitic vol] Comment on above: Performed By: #### GFR, MG, PRO, CMP, AMM #### [place] [address] RBC 3.94 10 6/mcL Low 4.10-5.30 [facility] ([place]) Comment on above: Performed By: #### GFR, MG, PRO, CMP, AMM #### [place] [address] WBC 3.2 10 3/mcL Low 4.5-10.8 [facility] ([place]) Comment on above: Performed By: #### GFR, MG, PRO, CMP, AMM #### [place] [address] CMP on 2022 Albumin Level 3.5 G/dL Normal 3.2-4.8 [facility] ([place]) Comment on above: Performed By: #### CMP, GFR, AMM, LAC, HEPAC #### [address] [address] Albumin/Globulin [Mass ratio] 1.2 {ratio} Normal 0.9-1.6 [facility] ([place]) Comment on above: Performed By: #### CMP, GFR, AMM, LAC, HEPAC #### [address] [address] ALP [Catalytic activity/Vol] 117 U/L Normal 38-126 [facility] ([place]) Comment on above: Performed By: #### CMP, GFR, AMM, LAC, HEPAC #### [place] [id number] ALT [Catalytic activity/Vol] 24 U/L Normal 10-49 [facility] ([place]) Comment on above: Performed By: #### CMP, GFR, AMM, LAC, HEPAC #### [place] [id number] AST [Catalytic activity/Vol] 37 U/L High 8-34 [facility] ([place]) Comment on above: Performed By: #### CMP, GFR, AMM, LAC, HEPAC #### [address] [address] Bili Total 1.00 mg/dL Normal 0.20-1.20 [facility] ([place]) Comment on above: Result Comment: Use of this assay is not recommended for patients undergoing treatment with eltrombopag d ue to the potential for falsely elevated results. Performed By: #### CMP, GFR, AMM, LAC, HEPAC #### [place] [id number] BUN/Creatinine Ratio 29.0 ratio High 10.0-22.0 [facility] ([place]) Comment on above: Performed By: #### CMP, GFR, AMM, LAC, HEPAC #### [place] [id number] Calcium [Mass/Vol] 9.4 mg/dL Normal 8.7-10.4 [facility] ([place]) Comment on above: Performed By: #### CMP, GFR, AMM, LAC, HEPAC #### [address] [address] Chloride [Moles/Vol] 110 mmol/L Normal 98-110 [facility] ([place]) Comment on above: Performed By: #### CMP, GFR, AMM, LAC, HEPAC #### [address] [address] CO2 [Moles/Vol] 24 mmol/L Normal 22-32 [facility] ([place]) Comment on above: Performed By: #### CMP, GFR, AMM, LAC, HEPAC #### [address] [address] Creatinine [Mass/Vol] 0.62 mg/dL Normal 0.50-1.20 [facility] ([place]) Comment on above: Performed By: #### CMP, GFR, AMM, LAC, HEPAC #### [address] [address] Electrolyte Balance 11.0 mEq/L Normal 4.0-15.0 [facility] ([place]) Comment on above: Performed By: #### CMP, GFR, AMM, LAC, HEPAC #### [address] [address] Globulin 2.8 G/dL Normal 1.5-3.8 [facility] ([place]) Comment on above: Performed By: #### CMP, GFR, AMM, LAC, HEPAC #### [address] [address] Glucose [Mass/Vol] 113 mg/dL High 70-110 [facility] ([place]) Comment on above: Performed By: #### CMP, GFR, AMM, LAC, HEPAC #### [address] [address] Potassium [Moles/Vol] 4.0 mmol/L Normal 3.5-5.0 [facility] ([place]) Comment on above: Performed By: #### CMP, GFR, AMM, LAC, HEPAC #### [place] [address] [place] [address] Sodium [Moles/Vol] 145 mmol/L Normal 136-145 [facility] ([place]) Comment on above: Performed By: #### CMP, GFR, AMM, LAC, HEPAC #### [address] [address] Total Protein 6.3 G/dL Normal 5.7-8.2 [facility] ([place]) Comment on above: Result Comment: Note - New Reference Range in effect 20 Performed By: #### CMP, GFR, AMM, LAC, HEPAC #### [address] [address] Urea nitrogen [Mass/Vol] 18.0 mg/dL Normal 8.0-22.0 [facility] ([place]) Comment on above: Performed By: #### CMP, GFR, AMM, LAC, HEPAC #### [address] [address] LABORATORY Ordered By: SYSTEM SYSTEM on 2022 [...] 2022 Magnesium [Mass/Vol] 2.1 mg/dL Normal 1.6-2.4 [facility] ([place]) Comment on above: Performed By: #### CMP, GFR, AMM, LAC, HEPAC #### [address] [id number] ORA on 2022 Mitochondrial Ab See Titer Normal Neg 20 [facility] ([place]) Comment on above: Result Comment: Mitochondria l Ab Screen and Titer methodology is an immunofluorescent technique utilizing MSK Substrate. Performed By: #### CMP, GFR, AMM, LAC, HEPAC #### [address] [address] PRO on 2022 INR Coag (PPP) [Relative time] 1.2 {INR} Normal [facility] ([place]) Comment on above: Result Comment: [employer] (CHEST, 1992, [id number]) recommended therapeutic rang e for oral anticoagulant therapy is: LOW RISK: Prophylaxis of starr ous thrombosis INR: 2.0-3.0 Treatment of pulmonary embol ism 2.0-3.0 Prevention of systemic embol ism 2.0-3.0 HIGH RISK: Mechanical prosth etic valves 2.5-3.5 Performed By: #### CMP, GFR, AMM, LAC, HEPAC #### [address] [id number] PT Coag (PPP) [Time] 14.5 s Normal 9.0-14.9 [facility] ([place]) Comment on above: Result Comment: Effective , Protime results may be affected by some antibiotics (i.e. Ci profloxacin, Azithromycin, Bactrim) which may potentiate the act ion of oral anticoagulants, with further increases in Protime /INR. Performed By: #### CMP, GFR, AMM, LAC, HEPAC #### [address] [address] [facility] on 2022 Smooth Muscle Ab Neg 20 Normal Neg 20 [facility] ([place]) Comment on above: Result Comment: Smooth Muscl e Ab Screen and Titer methodology is an immunofluorescent technique utilizing MSK Substrate. Performed By: #### CMP, GFR, AMM, LAC, HEPAC #### [address] [address] .Auto Diff on 10-04-2022 Basophil, Absolute 0.0 10 3/mcL Normal 0.0-0.3 [facility] ([place]) Comment on above: Performed By: #### CMP, GFR, AMM, LAC, HEPAC #### [address] [address] Basophils/100 WBC (Bld) 1.1 % Normal 0.0-2.5 [facility] ([place]) Comment on above: Performed By: #### CMP, GFR, AMM, LAC, HEPAC #### [address] [address] Eosinophil, Absolute 0.3 10 3/mcL Normal 0.0-0.7 [facility] ([place]) Comment on above: Performed By: #### CMP, GFR, AMM, LAC, HEPAC #### [address] [address] Eosinophils/100 WBC (Bld) 7.0 % High 0.0-6.0 [facility] ([place]) Comment on above: Performed By: #### CMP, GFR, AMM, LAC, HEPAC #### [address] [address] Lymphocyte, Absolute 1.3 10 3/mcL Normal 0.9-4.3 [facility] ([place]) Comment on above: Performed By: #### CMP, GFR, AMM, LAC, HEPAC #### [address] [address] Lymphocytes/100 WBC (Bld) 32.4 % Normal 20.0-40.0 [facility] ([place]) Comment on above: Performed By: #### CMP, GFR, AMM, LAC, HEPAC #### [address] [address] Monocyte, Absolute 0.6 10 3/mcL Normal 0.1-1.4 [facility] ([place]) Comment on above: Performed By: #### CMP, GFR, AMM, LAC, HEPAC #### [address] [address] Monocytes/100 WBC (Bld) 15.6 % High 2.0-13.0 [facility] ([place]) Comment on above: Performed By: #### CMP, GFR, AMM, LAC, HEPAC #### [address] [address] Neutrophils/100 WBC (Bld) 43.9 % Low 50.0-75.0 [facility] ([place]) Comment on above: Performed By: #### CMP, GFR, AMM, LAC, HEPAC #### [address] [address] .GFR on 10-04-2022 GFR >60 Normal [facility] ([place]) Comment on above: Result Comment: GFR Population mean for Afri can Egyptian, Non- Americans Ages 20-29 = 116 mL/min/1.73 [...] #### CMP, GFR, AMM, LAC, HEPAC #### [address] [address] GFR Non- >60 Normal [facility] ([place]) Comment on above: Result Comment: GFR Population mean for Afri can Egyptian, Non- Americans Ages 20-29 = 116 mL/min/1.73 [...] #### CMP, GFR, AMM, LAC, HEPAC #### [address] [address] .NEUABS on 10-04-2022 Neutrophil, Absolute 1.7 10 3/mcL Low 2.3-8.1 [facility] ([place]) Comment on above: Performed By: #### CMP, GFR, AMM, LAC, HEPAC #### [address] [address] AMM on 10-04-2022 Ammonia 117 mcmol/l High [facility] ([place]) Comment on above: Performed By: #### CMP, GFR, AMM, LAC, HEPAC #### [address] [address] CBC on 10-04-2022 Erythrocyte distribution width 18.2 % High 11.5-15.5 [facility] ([place]) (RBC) [Ratio] Comment on above: Performed By: #### CMP, GFR, AMM, LAC, HEPAC #### [place] [id number] Hematocrit (Bld) [Volume 28.0 % Low 34.0-46.0 [facility] ([place]) fraction] Comment on above: Performed By: #### CMP, GFR, AMM, LAC, HEPAC #### [place] [id number] Hgb 8.9 G/dL Low 12.0-16.0 [facility] ([place]) Comment on above: Performed By: #### CMP, GFR, AMM, LAC, HEPAC #### [address] [address] MCH (RBC) [Entitic mass] 23.0 pg Low 27.0-33.0 [facility] ([place]) Comment on above: Performed By: #### CMP, GFR, AMM, LAC, HEPAC #### [place] [address] MCHC 31.8 G/dL Low 32.0-36.0 [facility] ([place]) Comment on above: Performed By: #### CMP, GFR, AMM, LAC, HEPAC #### [place] [address] MCV (RBC) [Entitic vol] 72.3 fL Low 80.0-99.0 [facility] ([place]) Comment on above: Performed By: #### CMP, GFR, AMM, LAC, HEPAC #### [place] [address] Platelet 84 10 3/mcL Low 150-450 [facility] ([place]) Comment on above: Performed By: #### CMP, GFR, AMM, LAC, HEPAC #### [place] [address] Platelet mean volume (Bld) 8.4 fL Normal 6.6-10.5 A [facility] ([place]) [Entitic vol] Comment on above: Performed By: #### CMP, GFR, AMM, LAC, HEPAC #### [place] [address] RBC 3.87 10 6/mcL Low 4.10-5.30 [facility] ([place]) Comment on above: Performed By: #### CMP, GFR, AMM, LAC, HEPAC #### [place] [address] WBC 3.9 10 3/mcL Low 4.5-10.8 [facility] ([place]) Comment on above: Performed By: #### CMP, GFR, AMM, LAC, HEPAC #### [place] [address] CMP on 10-04-2022 Albumin Level 2.9 G/dL Low 3.2-4.8 [facility] ([place]) Comment on above: Performed By: #### CMP, GFR, AMM, LAC, HEPAC #### [address] [address] Albumin/Globulin [Mass ratio] 1.0 {ratio} Normal 0.9-1.6 [facility] ([place]) Comment on above: Performed By: #### CMP, GFR, AMM, LAC, HEPAC #### [address] [address] ALP [Catalytic activity/Vol] 122 U/L Normal 38-126 [facility] ([place]) Comment on above: Performed By: #### CMP, GFR, AMM, LAC, HEPAC #### [address] [address] ALT [Catalytic activity/Vol] 25 U/L Normal 10-49 [facility] ([place]) Comment on above: Performed By: #### CMP, GFR, AMM, LAC, HEPAC #### [place] [id number] AST [Catalytic activity/Vol] 37 U/L High 8-34 [facility] ([place]) Comment on above: Performed By: #### CMP, GFR, AMM, LAC, HEPAC #### [address] [address] Bili Total 1.10 mg/dL Normal 0.20-1.20 [facility] ([place]) Comment on above: Result Comment: Use of this assay is not recommended for patients undergoing treatment with eltrombopag d ue to the potential for falsely elevated results. Performed By: #### CMP, GFR, AMM, LAC, HEPAC #### [address] [address] BUN/Creatinine Ratio 23.9 ratio High 10.0-22.0 [facility] ([place]) Comment on above: Performed By: #### CMP, GFR, AMM, LAC, HEPAC #### [address] [address] Calcium [Mass/Vol] 9.0 mg/dL Normal 8.7-10.4 [facility] ([place]) Comment on above: Performed By: #### CMP, GFR, AMM, LAC, HEPAC #### [address] [address] Chloride [Moles/Vol] 113 mmol/L High 98-110 [facility] ([place]) Comment on above: Performed By: #### CMP, GFR, AMM, LAC, HEPAC #### [address] [address] CO2 [Moles/Vol] 25 mmol/L Normal 22-32 [facility] ([place]) Comment on above: Performed By: #### CMP, GFR, AMM, LAC, HEPAC #### [address] [address] Creatinine [Mass/Vol] 0.67 mg/dL Normal 0.50-1.20 [facility] ([place]) Comment on above: Performed By: #### CMP, GFR, AMM, LAC, HEPAC #### [address] [address] Electrolyte Balance 9.0 mEq/L Normal 4.0-15.0 [facility] ([place]) Comment on above: Performed By: #### CMP, GFR, AMM, LAC, HEPAC #### [address] [address] Globulin 3.0 G/dL Normal 1.5-3.8 [facility] ([place]) Comment on above: Performed By: #### CMP, GFR, AMM, LAC, HEPAC #### [address] [address] Glucose [Mass/Vol] 102 mg/dL Normal 70-110 [facility] ([place]) Comment on above: Performed By: #### CMP, GFR, AMM, LAC, HEPAC #### [address] [address] Potassium [Moles/Vol] 3.9 mmol/L Normal 3.5-5.0 [facility] ([place]) Comment on above: Performed By: #### CMP, GFR, AMM, LAC, HEPAC #### [address] [address] Sodium [Moles/Vol] 147 mmol/L High 136-145 [facility] ([place]) Comment on above: Performed By: #### CMP, GFR, AMM, LAC, HEPAC #### [place] [id number] [place] [address] Total Protein 5.9 G/dL Normal 5.7-8.2 [facility] ([place]) Comment on above: Result Comment: Note - New Reference Range in effect 20 Performed By: #### CMP, GFR, AMM, LAC, HEPAC #### [facility] [address] [place] [address] Urea nitrogen [Mass/Vol] 16.0 mg/dL Normal 8.0-22.0 [facility] ([place]) Comment on above: Performed By: #### CMP, GFR, AMM, LAC, HEPAC #### [address] [address] LABORATORY Ordered By: Ysabel Soto on 10-04-2022 [...] Culture Urine No growth at 48 hours. [facility] Work Phone: UA on 10-04-2022 Color (U) Dark Yellow Normal [facility] ([place]) Comment on above: Performed By: #### CMP, GFR, AMM, LAC, HEPAC #### [address] [address] Glucose (U) [Mass/Vol] Negative Normal Negative [facility] ([place]) Comment on above: Performed By: #### CMP, GFR, AMM, LAC, HEPAC #### [address] [address] Ketones Ql (U) Trace Normal Neg-Trace [facility] ([place]) Comment on above: Performed By: #### CMP, GFR, AMM, LAC, HEPAC #### [address] [address] UA Appear Clear Normal Clear [facility] ([place]) Comment on above: Performed By: #### CMP, GFR, AMM, LAC, HEPAC #### [address] [address] UA Blood Negative Normal Neg-Trace [facility] ([place]) Comment on above: Performed By: #### CMP, GFR, AMM, LAC, HEPAC #### [address] [address] UA Leuk Est Small Abnormal Negative [facility] ([place]) Comment on above: Performed By: #### CMP, GFR, AMM, LAC, HEPAC #### [address] [address] UA Nitrite Negative Normal Negative [facility] ([place]) Comment on above: Performed By: #### CMP, GFR, AMM, LAC, HEPAC #### [address] [address] UA pH 5.5 Normal 5.0 - 8.0 [facility] ([place]) Comment on above: Performed By: #### CMP, GFR, AMM, LAC, HEPAC #### [address] [address] UA Protein Negative Normal Negative [facility] ([place]) Comment on above: Performed By: #### CMP, GFR, AMM, LAC, HEPAC #### [address] [address] UA Spec Grav >=1.030 Abnormal 1.006-1.029 [facility] ([place]) Comment on above: Performed By: #### CMP, GFR, AMM, LAC, HEPAC #### [address] [address] UA Specimen Type Void Normal [facility] ([place]) Comment on above: Performed By: #### CMP, GFR, AMM, LAC, HEPAC #### [address] [address] UA Urobilinogen 2.0 E.U./dL Abnormal 0.2-1.0 [facility] ([place]) Comment on above: Performed By: #### CMP, GFR, AMM, LAC, HEPAC #### [address] [address] Urobilinogen (U) [Mass/Vol] Negative Normal Neg-Trace [facility] ([place]) Comment on above: Result Comment: Bilirubin co nfirmed by alternate method Performed By: #### CMP, GFR, AMM, LAC, HEPAC #### [address] [address] UAMIC on 10-04-2022 UA RBC Rare Normal 0-2 [facility] ([place]) Comment on above: Performed By: #### CMP, GFR, AMM, LAC, HEPAC #### [address] [address] UA Squam Epithelial 3-5 Normal 0-20 [facility] ([place]) Comment on above: Performed By: #### CMP, GFR, AMM, LAC, HEPAC #### [address] [address] UA Transitional Epithelial 0-2 Normal A [facility] ([place]) Comment on above: Performed By: #### CMP, GFR, AMM, LAC, HEPAC #### [address] [address] UA WBC 5-10 Abnormal 0-5 [facility] ([place]) Comment on above: Performed By: #### CMP, GFR, AMM, LAC, HEPAC #### [address] [address] US ABDOMEN/ELASTOGRAPHY/DOPPLER ABDOMEN on 10-04-2022 US ABDOMEN/ELASTOGRAPHY/DOPPLER ORIGINAL Normal [facility] ABDOMEN EXAMINATION: [facility] [place] ([place]) Hepatic elastography TECHNIQUE: 2D Shear Wave Elastography [...] 1.66-1.77 m/s (8.29 kPa - 9.40 kPa) Hhtu-le-wuxbcdym risk of clinically significant liver fibrosis. (METAVIR [...] Basophil, Absolute 0.0 10 3/mcL Normal 0.0-0.3 [facility] ([place]) Comment on above: Performed By: #### CMP, GFR, AMM, LAC, HEPAC #### [address] [address] Basophils/100 WBC (Bld) 0.8 % Normal 0.0-2.5 [facility] ([place]) Comment on above: Performed By: #### CMP, GFR, AMM, LAC, HEPAC #### [address] [address] Eosinophil, Absolute 0.3 10 3/mcL Normal 0.0-0.7 [facility] ([place]) Comment on above: Performed By: #### CMP, GFR, AMM, LAC, HEPAC #### [address] [address] Eosinophils/100 WBC (Bld) 5.6 % Normal 0.0-6.0 [facility] ([place]) Comment on above: Performed By: #### CMP, GFR, AMM, LAC, HEPAC #### [address] [address] Lymphocyte, Absolute 1.0 10 3/mcL Normal 0.9-4.3 [facility] ([place]) Comment on above: Performed By: #### CMP, GFR, AMM, LAC, HEPAC #### [address] [address] Lymphocytes/100 WBC (Bld) 20.8 % Normal 20.0-40.0 [facility] ([place]) Comment on above: Performed By: #### CMP, GFR, AMM, LAC, HEPAC #### [address] [address] Monocyte, Absolute 0.6 10 3/mcL Normal 0.1-1.4 [facility] ([place]) Comment on above: Performed By: #### CMP, GFR, AMM, LAC, HEPAC #### [address] [address] Monocytes/100 WBC (Bld) 12.6 % Normal 2.0-13.0 [facility] ([place]) Comment on above: Performed By: #### CMP, GFR, AMM, LAC, HEPAC #### [address] [address] Neutrophils/100 WBC (Bld) 60.2 % Normal 50.0-75.0 [facility] ([place]) Comment on above: Performed By: #### CMP, GFR, AMM, LAC, HEPAC #### [address] [address] .GFR on 10-03-2022 GFR Non- >60 Normal [facility] ([place]) Comment on above: Result Comment: GFR Population mean for Afri can Egyptian, Non- Americans Ages 20-29 = 116 mL/min/1.73 [...] #### CMP, GFR, AMM, LAC, HEPAC #### [address] [address] GFR >60 Normal [facility] ([place]) Comment on above: Result Comment: GFR Population mean for Afri can Egyptian, Non- Americans Ages 20-29 = 116 mL/min/1.73 [...] #### CMP, GFR, AMM, LAC, HEPAC #### [place] [address] .NEUABS on 10-03-2022 Neutrophil, Absolute 3.0 10 3/mcL Normal 2.3-8.1 [facility] ([place]) Comment on above: Performed By: #### CMP, GFR, AMM, LAC, HEPAC #### [address] [address] AAT on 10-03-2022 Alpha 1 Antitrypsin 150 mg/dL Normal 78-200 [facility] ([place]) Comment on above: Result Comment: Note - New Reference Range in effect 20 Performed By: #### CMP, GFR, AMM, LAC, HEPAC #### [place] [id number] ACETAMINOPHEN on 10-03-2022 Acetaminophen [Mass/Vol] ug/mL Low 10.0 - 30.0 [facility] Comment on above: Performed By: #### [id number] ## ## [facility],[address] [place] [address] AFPS on 10-03-2022 AFP, Tumor Marker 3.3 ng/mL Normal 0.0-8.5 [facility] ([place]) Comment on above: Result Comment: Patient resu lts determined by assays using different manufacturers for methods may not be comparable. Performed By: #### CMP, GFR, AMM, LAC, HEPAC #### [address] [address] ALCOHOL-BLOOD MEDICAL on 10-03-2022 Ethanol [Mass/Vol] mg/dL Normal 0 - 50 [facility] Comment on above: Performed By: #### [id number] ## ## [facility],[address] [place] [address] AMM on 10-03-2022 Ammonia 65 mcmol/l High 11-32 [facility] ([place]) Comment on above: Performed By: #### CMP, GFR, AMM, LAC, HEPAC #### [place] [id number] AMMONIA on 10-03-2022 Ammonia (P) [Moles/Vol] 115.0 umol/L High 11.0 - 32.0 [facility] Comment on above: Performed By: #### [id number] ## ## [facility],[address] [place] [address] B12 on 10-03-2022 Cobalamin (Vitamin B12) 682 pg/mL Normal 211-911 [facility] ([place]) [Mass/Vol] Comment on above: Performed By: #### CMP, GFR, AMM, LAC, HEPAC #### [address] [address] CBC on 10-03-2022 Erythrocyte distribution width 18.2 % High 11.5-15.5 [facility] ([place]) (RBC) [Ratio] Comment on above: Performed By: #### CMP, GFR, AMM, LAC, HEPAC #### [facility] [address] [place] [address] Hematocrit (Bld) [Volume 32.0 % Low 34.0-46.0 [facility] ([place]) fraction] Comment on above: Performed By: #### CMP, GFR, AMM, LAC, HEPAC #### [place] [address] Hgb 10.1 G/dL Low 12.0-16.0 [facility] ([place]) Comment on above: Performed By: #### CMP, GFR, AMM, LAC, HEPAC #### [place] [id number] MCH (RBC) [Entitic mass] 22.9 pg Low 27.0-33.0 [facility] ([place]) Comment on above: Performed By: #### CMP, GFR, AMM, LAC, HEPAC #### [place] [address] MCHC 31.5 G/dL Low 32.0-36.0 [facility] ([place]) Comment on above: Performed By: #### CMP, GFR, AMM, LAC, HEPAC #### [place] [address] MCV (RBC) [Entitic vol] 72.5 fL Low 80.0-99.0 [facility] ([place]) Comment on above: Performed By: #### CMP, GFR, AMM, LAC, HEPAC #### [place] [address] Platelet 103 10 3/mcL Low 150-450 [facility] ([place]) Comment on above: Performed By: #### CMP, GFR, AMM, LAC, HEPAC #### [place] [address] Platelet mean volume (Bld) 8.6 fL Normal 6.6-10.5 A [facility] ([place]) [Entitic vol] Comment on above: Performed By: #### CMP, GFR, AMM, LAC, HEPAC #### [place] [address] RBC 4.41 10 6/mcL Normal 4.10-5.30 [facility] ([place]) Comment on above: Performed By: #### CMP, GFR, AMM, LAC, HEPAC #### [facility] [address] [place] [address] WBC 5.0 10 3/mcL Normal 4.5-10.8 [facility] ([place]) Comment on above: Performed By: #### CMP, GFR, AMM, LAC, HEPAC #### [facility] [address] [place] [address] CBC + DIFF on 10-03-2022 Baso # 0.00 x10EE3/UL Normal 0.00 - 0.10 [facility] Comment on above: Performed By: #### [id number] ## ## [facility],[address] [place] [address] Basophils/100 WBC (Bld) 0.7 % Normal 0.0 - 2.0 [facility] Comment on above: Performed By: #### [id number] ## ## [facility],[address] [place] [address] CBC + DIFF Normal [facility] Comment on above: Result Comment: CBC-COMPLETE BLOOD COUNT Performed By: #### [id number] ## ## [facility],[address] [place] [address] EO # 0.20 x10EE3/UL Normal 0.00 - 0.50 [facility] Comment on above: Performed By: #### [id number] ## ## [facility],[address] [place] [address] Eosinophils/100 WBC (Bld) 4.7 % Normal 0.0 - 7.0 [facility] Comment on above: Performed By: #### [id number] ## ## [facility],[address] [place] [address] Erythrocyte distribution width 18.6 % High 12.0 - 15. 6 [facility] (RBC) [Ratio] [facility] Comment on above: Performed By: #### [id number] ## ## [facility],[address] [place] [address] Hematocrit (Bld) [Volume 31.5 % Low 34.0 - 46.0 [facility] Comment on above: Performed By: #### [id number] ## ## [facility],[address] [place] [address] Hemoglobin (Bld) [Mass/Vol] 9.6 g/dL Low 12.0 - 16.0 [facility] Comment on above: Performed By: #### [id number] ## ## [facility],[address] [place] [address] Lymph # 0.70 x10EE3/UL Low 0.80 - 2.80 [facility] Comment on above: Performed By: #### [id number] ## ## [facility],[address] [place] [address] Lymphocytes/100 WBC (Bld) 17.3 % Low 20.0 - 45.0 [facility] Comment on above: Performed By: #### [id number] ## ## [facility],[address] [place] [address] MANUAL DIFF N/A Normal [facility] Comment on above: Performed By: #### [id number] ## ## [facility],[address] [place] [address] MCH (RBC) [Entitic mass] 22 pg Low 27 - 33 [facility] Comment on above: Performed By: #### [id number] ## ## [facility],[address] [place] [address] MCHC 30 X10 3 Low 32 - 36 [facility] Comment on above: Performed By: #### [id number] ## ## [facility],[address] [place] [address] MCV (RBC) [Entitic vol] 74 fL Low 80 - 99 [facility] Comment on above: Performed By: #### [id number] ## ## [facility],[address] [place] [address] MICROCYTES 1+ Normal [facility] Comment on above: Result Comment: {CD] Performed By: #### [id number] ## ## [facility],[address] [facility] [address] Luna # 0.50 x10EE3/UL Normal 0.20 - 1.00 [facility] Comment on above: Performed By: #### [id number] ## ## [facility],[address] [place] [address] MONOS % 13.2 % High 0.0 - 10.0 [facility] Comment on above: Performed By: #### [id number] ## ## [facility] [facility] [address] Morphology Giovanni (Bld) [Interp] SEE BELOW Normal [facility] Comment on above: Performed By: #### [id number] ## ## [facility] [facility] [address] Neut # 2.70 x10EE3/UL Normal 1.50 - 7.10 [facility] Comment on above: Performed By: #### [id number] ## ## [facility],[address] [place] [address] Neutrophils/100 WBC (Bld) 64.1 % Normal 46.0 - 76.0 [facility] Comment on above: Performed By: #### [id number] ## ## [facility] [facility] [address] PLATELET 99 x10EE3/UL Low 150 - 450 [facility] Comment on above: Performed By: #### [id number] ## ## [facility] [facility] [address] Platelet mean volume (Bld) 8.3 fL Normal 6.6 - 10.5 [facility] [[facility]] [facility] Comment on above: Result Comment: AUTOMATED DI FFERENTIAL Performed By: #### [id number] ## ## [facility],[address] [place] [address] RBC 4.28 x 10EE6/UL Normal 4.10 - 5.30 [facility] Comment on above: Performed By: #### [id number] ## ## [facility],[address] [place] [address] WBC 4.1 x 10EE3/UL Low 4.5 - 10.8 [facility] Comment on above: Performed By: #### [id number] ## ## [facility],[address] [place] [address] CERUL on 10-03-2022 Ceruloplasmin 26.0 mg/dL Normal 22.0-58.0 [facility] ([place]) Comment on above: Performed By: #### CMP, GFR, AMM, LAC, HEPAC #### [place] [address] CHEST 1 VIEW on 10-03-[address] [facility] Normal [place] [address] Patient: EVER MCKEON Phone#: : [phone] Age: 51 Gender: F Pt. Type: ER Account: [id number] Location: [id number] Ordering: [place] Exam Date: 10/02/2022/23:20 Family Phys: Charge Code: [id number] Physician: Dupage Order #: [id number] Dose#: PROCEDURE: X-RAY CHEST 1 VIEW COMPARISON: [...] 10-03-2022 Albumin Level 3.4 G/dL Normal 3.2-4.8 [facility] ([place]) Comment on above: Performed By: #### CMP, GFR, AMM, LAC, HEPAC #### [address] [address] Albumin/Globulin [Mass ratio] 1.0 {ratio} Normal 0.9-1.6 [facility] ([place]) Comment on above: Performed By: #### CMP, GFR, AMM, LAC, HEPAC #### [address] [address] ALP [Catalytic activity/Vol] 147 U/L High 38-126 [facility] ([place]) Comment on above: Performed By: #### CMP, GFR, AMM, LAC, HEPAC #### [address] [address] ALT [Catalytic activity/Vol] 29 U/L Normal 10-49 [facility] ([place]) Comment on above: Performed By: #### CMP, GFR, AMM, LAC, HEPAC #### [address] [address] AST [Catalytic activity/Vol] 44 U/L High 8-34 [facility] ([place]) Comment on above: Performed By: #### CMP, GFR, AMM, LAC, HEPAC #### [address] [address] Bili Total 1.20 mg/dL Normal 0.20-1.20 [facility] ([place]) Comment on above: Result Comment: Use of this assay is not recommended for patients undergoing treatment with eltrombopag d ue to the potential for falsely elevated results. Performed By: #### CMP, GFR, AMM, LAC, HEPAC #### [address] [address] BUN/Creatinine Ratio 18.3 ratio Normal 10.0-22.0 [facility] ([place]) Comment on above: Performed By: #### CMP, GFR, AMM, LAC, HEPAC #### [address] [address] Calcium [Mass/Vol] 9.5 mg/dL Normal 8.7-10.4 [facility] ([place]) Comment on above: Performed By: #### CMP, GFR, AMM, LAC, HEPAC #### [address] [address] Chloride [Moles/Vol] 115 mmol/L High 98-110 [facility] ([place]) Comment on above: Performed By: #### CMP, GFR, AMM, LAC, HEPAC #### [address] [address] CO2 [Moles/Vol] 23 mmol/L Normal 22-32 [facility] ([place]) Comment on above: Performed By: #### CMP, GFR, AMM, LAC, HEPAC #### [address] [address] Creatinine [Mass/Vol] 0.60 mg/dL Normal 0.50-1.20 [facility] ([place]) Comment on above: Performed By: #### CMP, GFR, AMM, LAC, HEPAC #### [address] [address] Electrolyte Balance 9.0 mEq/L Normal 4.0-15.0 [facility] ([place]) Comment on above: Performed By: #### CMP, GFR, AMM, LAC, HEPAC #### [address] [address] Globulin 3.4 G/dL Normal 1.5-3.8 [facility] ([place]) Comment on above: Performed By: #### CMP, GFR, AMM, LAC, HEPAC #### [address] [address] Glucose [Mass/Vol] 104 mg/dL Normal 70-110 [facility] ([place]) Comment on above: Performed By: #### CMP, GFR, AMM, LAC, HEPAC #### [address] [address] Potassium [Moles/Vol] 3.7 mmol/L Normal 3.5-5.0 [facility] ([place]) Comment on above: Performed By: #### CMP, GFR, AMM, LAC, HEPAC #### [address] [address] Sodium [Moles/Vol] 147 mmol/L High 136-145 [facility] ([place]) Comment on above: Performed By: #### CMP, GFR, AMM, LAC, HEPAC #### [address] [address] Total Protein 6.8 G/dL Normal 5.7-8.2 [facility] ([place]) Comment on above: Result Comment: Note - New Reference Range in effect 20 Performed By: #### CMP, GFR, AMM, LAC, HEPAC #### [address] [address] Urea nitrogen [Mass/Vol] 11.0 mg/dL Normal 8.0-22.0 [facility] ([place]) Comment on above: Performed By: #### CMP, GFR, AMM, LAC, HEPAC #### [address] [address] CMP with eGFR on 10-03-2022 AGE 51 years Normal [facility] Comment on above: Performed By: #### [id number] ## ## [facility],[address] [place] [address] Albumin [Mass/Vol] 3.3 g/dL Low 3.4 - 5.0 [facility] Comment on above: Performed By: #### [id number] ## ## [facility],[address] [place] [address] Albumin/Globulin [Mass ratio] 0.9 {ratio} Normal 0.9 - 1.6 [facility] Comment on above: Performed By: #### [id number] ## ## [facility] tristin,[address] [facility] [address] ALK PHOS 189 U/L High 46 - 116 [facility] Comment on above: Performed By: #### [id number] ## ## [facility],[address] [facility] [address] ALT [Catalytic activity/Vol] 31 U/L Normal 14 - 59 [facility] Comment on above: Performed By: #### [id number] ## ## [facility],[address] [place] [id number] Anion gap [Moles/Vol] 12 mmol/L Normal 10 - 20 [facility] Comment on above: Performed By: #### [id number] ## ## [facility],[address] [place] [address] AST [Catalytic activity/Vol] 38 U/L Normal 13 - 39 [facility] Comment on above: Performed By: #### [id number] ## ## [facility],[address] [facility] [address] B/C RATIO 12 ratio Normal 0 - 30 [facility] Comment on above: Performed By: #### [id number] ## ## [facility],[address] [facility] [address] Bilirubin [Mass/Vol] 0.7 mg/dL Normal 0.2 - 1.0 [facility] Comment on above: Performed By: #### [id number] ## ## [facility],[address] [facility] [address] Calcium [Mass/Vol] 8.9 mg/dL Normal 8.5 - 10.1 [facility] Comment on above: Performed By: #### [id number] ## ## [facility],[address] [facility] [address] Chloride [Moles/Vol] 113 mmol/L High 98 - 107 [facility] Comment on above: Performed By: #### [id number] ## ## [facility],[address] [place] [address] CMP with eGFR Normal [facility] Comment on above: Result Comment: COMPREHENSIV E METABOLIC PANEL Performed By: #### [id number] ## ## [facility],[address] [place] [address] CO2 [Moles/Vol] 23.3 mmol/L Normal 21.0 - 32.0 [facility] Comment on above: Performed By: #### [id number] ## ## [facility],[address] [place] [address] Creatinine [Mass/Vol] 0.84 mg/dL Normal 0.55 - 1.02 [facility] Comment on above: Performed By: #### [id number] ## ## [facility],[address] [place] [address] GFR/1.73 sq M.predicted mL/min/{1.73_m2} Normal 60 - 999 [facility] among non-blacks MDRD Hospit al (S/P/Bld) [Vol rate/Area] Comment on above: Performed By: #### [id number] ## ## [facility],[address] [place] [address] Result Comment: ACCORDING TO THE NATIONAL KIDNEY [...] g/dL Normal 1.5 - 3.8 [facility] Comment on above: Performed By: #### [id number] ## ## [facility],[address] [place] [address] Glucose [Mass/Vol] 203 mg/dL High 74 - 106 [facility] Comment on above: Performed By: #### [id number] ## ## [facility],[address] [place] [address] Potassium [Moles/Vol] 3.5 mmol/L Normal 3.5 - 5.1 [facility] Comment on above: Performed By: #### [id number] ## ## [facility],[address] [place], [place] [id number] Protein [Mass/Vol] 6.9 g/dL Normal 6.4 - 8.2 [facility] Comment on above: Performed By: #### [id number] ## ## [facility],[address] [place] [address] Sodium [Moles/Vol] 145 mmol/L Normal 136 - 145 [facility] Comment on above: Performed By: #### [id number] ## ## [facility],[address] [place] [address] Urea nitrogen [Mass/Vol] 10 mg/dL Normal 7 - 18 [facility] Comment on above: Performed By: #### [id number] ## ## [facility],[address] [place] [address] CORONAVIRUS (SARS) ANTIGEN TEST on 09-24 EXTERNAL QC DONE? YES Normal [facility] Comment on above: Performed By: #### [id number] ## ## [facility],[address] [place] [address] INTERNAL CONTROL PASS Normal [place] Comment on above: Performed By: #### [id number] ## ## [facility],[address] [place], [place] [id number] SARS ANTIGEN Negative Normal NORMAL: NEGATIVE [place] Comment on above: Performed By: #### [id number] ## ## [facility],[address] [place], [place] [address] SEND TO ? NO Normal [facility] Comment on above: Result Comment: SARS-CoV-2 THIS TEST IS BEING USED UNDE R THE FDA EUA PROCEDURE. THIS ASSAY HAS BEEN VALIDATED AT [facility] FOR USE WITH NASAL AND NASOPHARYNGEAL [...] WITH PUBLIC HEALTH AUTHORITIES. Performed By: #### [id number] ## ## [facility],[address] [place] [address] CT ABDOMEN/PELVIS WO on 10-03-2022 CT ABDOMEN/PELVIS WO [facility] Normal [place] [address] Patient: EVER MCKEON Phone#: : 1970 Age: 51 Gender: F Pt. Type: ER Account: [id number] Location: 052 Ordering: [place] Exam Date: 10/03/2022/3:22 Family Phys: Charge Code: 400897 Physician: Dupage Order #: [id number] Dose#: 26.00 PROCEDURE: CT ABDOMEN/PELVIS WITHOUT CONTRAST [...] 51 Gender: F Pt. Type: ER Account: [id number] Location: 052 Ordering: [place] Exam Date: 10/03/2022/3:22 Family Phys: Charge Code: [id number] Physician: Dupage Order #: [id number] Dose#: 26.00 LUNG BASES: Normal. No visible pulmonary or pleural di sease. OTHER: Negative. CONCLUSION: 1. Splenomegaly. 2. Probable cirrhotic changes the liver. Dictated by: Danette Welsh MD on 10/04/2022 at 12:26 Approved by: Danette Welsh MD on 10/04/2022 at 12:31 CT BRAIN W/O CONTRAST on 10-03-2022 CT BRAIN W/O CONTRAST [facility] Normal [address] [place] [address] Patient: EVER MCKEON Phone#: : 1970 Age: 51 Gender: F Pt. Type: ER Account: [id number] Location: [facility] Ordering: [place] Exam Date: 10/02/2022/23:14 Family Phys: Charge Code: 219170 Physician: Dupage Order #: [id number] Dose#: 52.30 PROCEDURE: CT BRAIN WITHOUT CONTRAST COMPARISON: None. INDICATIONS: Altered mental status. TECHNIQUE: CT images were obtained without contrast [facility]. All CT scans at this facilit y [...] 10-03-2022 Microscopic CULTURE BLOOD [DIANA] Normal Gigi Pomerewy examination of blood, _BLOOD CULTURE_ [facility] culture [facility] AND [facility]ACH[facility] FOR SCANNED REPO RT 10/09/22.1520.TLJ.COMPLETE Comment on above: Performed By: #### [id number] ## ## [facility],[address] [place] [address] Microscopic CULTURE BLOOD [DIANA] Normal Gigi Pomerewy examination of blood, _BLOOD CULTURE_ [facility] culture [facility] AND ATTACHMENTS FOR SCANNED REPO RT 10/09/22.1523.TLJ.COMPLETE Comment on above: Performed By: #### [id number] ## ## Gigi [facility],[address] [place] [address] FERR on 10-03-2022 Ferritin [Mass/Vol] 6.3 ng/mL Low 8.0-252.0 [facility] ([place]) Comment on above: Performed By: #### CMP, GFR, AMM, LAC, HEPAC #### [address] [address] FES on 10-03-2022 Iron [Mass/Vol] 34 ug/dL Low 50-170 [facility] ([place]) Comment on above: Performed By: #### CMP, GFR, AMM, LAC, HEPAC #### [address] [address] Iron Sat 9 % Normal [facility] ([place]) Comment on above: Performed By: #### CMP, GFR, AMM, LAC, HEPAC #### [address] [address] TIBC 397 mcg/dL Normal 250-500 [facility] ([place]) Comment on above: Performed By: #### CMP, GFR, AMM, LAC, HEPAC #### [address] [address] FOL on 10-03-2022 Folate 20.61 ng/mL Normal 5.38-24.00 [facility] ([place]) Comment on above: Performed By: #### CMP, GFR, AMM, LAC, HEPAC #### [address] [address] HEPAC on 10-03-2022 Hep A IgM Ab Non-Reactive Normal Non-Reactive [facility] ([place]) Comment on above: Performed By: #### CMP, GFR, AMM, LAC, HEPAC #### [place] [id number] Hep A IgM Ab Int Normal [facility] ([place]) Comment on above: Result Comment: No serologic al evidence of a current Hepatitis A infection. See Interp Performed By: #### CMP, GFR, AMM, LAC, HEPAC #### [place] [id number] Hep B Core IgM Ab Non-Reactive Normal Non-Reactive [facility] ([place]) Comment on above: Performed By: #### CMP, GFR, AMM, LAC, HEPAC #### [place] [id number] Hep B Core IgM Ab Int [facility] ([place]) Comment on above: Result Comment: Samples with a value < 0.80 Index are considered nonreactive (negative) for IgM antibodies to hepatitis B core antigen. See Interp Performed By: #### CMP, GFR, AMM, LAC, HEPAC #### [place] [id number] Hep C Ab Non-Reactive Normal Non-Reactive [facility] ([place]) Comment on above: Performed By: #### CMP, GFR, AMM, LAC, HEPAC #### [place] [id number] Hep C Ab Int [facility] ([place]) Comment on above: Result Comment: Nonreactive: Samples with a value < 0.80 are considered nonreactive (negative) for antibodies to HCV. A negative test result does not exclude the possibility of exposure to or infection with HCV. HCV antibodies may be undetectable in some stages of the infection and in some clinical conditions. See Interp Performed By: #### CMP, GFR, AMM, LAC, HEPAC #### [address] [address] Hep A IgM Ab Non-Reactive Normal Non-Reactive [facility] ([place]) Comment on above: Performed By: #### CMP, GFR, AMM, LAC, HEPAC #### [address] [address] Hep A IgM Ab Int Normal [facility] ([place]) Comment on above: Result Comment: No serologic al evidence of a current Hepatitis A infection. See Interp Performed By: #### CMP, GFR, AMM, LAC, HEPAC #### [address] [address] Hep B Core IgM Ab Non-Reactive Normal Non-Reactive [facility] ([place]) Comment on above: Performed By: #### CMP, GFR, AMM, LAC, HEPAC #### [address] [address] Hep B Core IgM Ab Int [facility] ([place]) Comment on above: Result Comment: Samples with a value < 0.80 Index are considered nonreactive (negative) for IgM antibodies to hepatitis B core antigen. See Interp Performed By: #### CMP, GFR, AMM, LAC, HEPAC #### [place] [id number] Hep C Ab Non-Reactive Normal Non-Reactive [facility] ([place]) Comment on above: Performed By: #### CMP, GFR, AMM, LAC, HEPAC #### [place] [id number] Hep C Ab Int [facility] ([place]) Comment on above: Result Comment: Nonreactive: Samples with a value < 0.80 are considered nonreactive (negative) for antibodies to HCV. A negative test result does not exclude the possibility of exposure to or infection with HCV. HCV antibodies may be undetectable in some stages of the infection and in some clinical conditions. See Interp Performed By: #### CMP, GFR, AMM, LAC, HEPAC #### [address] [address] Hep B Surf Ag Non-Reactive Normal Non-Reactive [facility] ([place]) Comment on above: Performed By: #### CMP, GFR, AMM, LAC, HEPAC #### [facility] [address] [place] [address] Hep B Surf Ag Non-Reactive Normal Non-Reactive [facility] ([place]) Comment on above: Performed By: #### CMP, GFR, AMM, LAC, HEPAC #### [facility] [address] [place] [address] IGA on 10-03-2022 IgA [Mass/Vol] 269 mg/dL Normal 40-350 [facility] ([place]) Comment on above: Result Comment: Note - New Reference Range in effect 20 Performed By: #### CMP, GFR, AMM, LAC, HEPAC #### [address] [address] LABORATORY Ordered By: Greg Ely on 10-03-2022 Lactate [Moles/Vol] 1.8 mmol/L Invalid Interpretation 0.2 - 2.0 m mol/L Auto Chem Code SS LABORATORY Ordered By: Greg Champagne on 10-03-2022 Lactate [Moles/Vol] 2.1 mmol/L Invalid Interpretation 0.2 - 2.0 m mol/L AH Auto Chem Code SS LABORATORY Ordered By: [employer] on 10-03-2022 Phosphate [Mass/Vol] 3.3 mg/dL Invalid [...] Code seconds SS LABORATORY Ordered By: Carla ely 10-03-2022 Mitochondria Ab IF Pos 320 or [...] SS Comment on above: Result Comment: At [place], an SELIN titer of less than 160 [...] Lactic Acid Lvl 1.8 mmol/L Normal 0.2-2.0 [facility] ([place]) Comment on above: Order Comment: Ordered carissa carreno to Lactic Acid result greater than or equal to 2.0 Performed By: #### LAC #### [facility] [address] [place] [address] Lactic Acid Lvl 2.1 mmol/L High 0.2-2.0 [facility] ([place]) Comment on above: Performed By: #### CMP, GFR, AMM, LAC, HEPAC #### [address] [address] LACTATE on 10-03-2022 Lactate [Moles/Vol] 1.5 mmol/L Normal 0.4 - 2.0 [facility] Comment on above: Performed By: #### [id number] ## ## [facility],[address] [place] [address] Lactate [Moles/Vol] 3.0 mmol/L High 0.4 - 2.0 [facility] Comment on above: Result Comment: LACTATE 3 HR NOTIFIED TO: _PEYTON 10/03/22.0035.AEL. . . LACTATE 3 HR NOTIFIED BY: _A EL 10/03/22.0035.AEL. . . Performed By: #### [id number] ## ##[facility],[address] [place] [address] Laboratory - Microbiology and Antimicrob ial susceptibility [...] 10-03-2022 Magnesium [Mass/Vol] 1.9 mg/dL Normal 1.6-2.4 [facility] ([place]) Comment on above: Performed By: #### CMP, GFR, AMM, LAC, HEPAC #### [place] [address] NT-proBNP on 10-03-2022 Natriuretic peptide B (Bld) 19 pg/mL Normal 0 - 125 [facility] [Mass/Vol] [facility] Comment on above: Performed By: #### [id number] ## ##[facility],[address] [place] [address] PHOS on 10-03-2022 Phosphate [Mass/Vol] 3.3 mg/dL Normal 2.4-5.1 [facility] ([place]) Comment on above: Result Comment: Note - New Reference Range in effect 20 Performed By: #### CMP, GFR, AMM, LAC, HEPAC #### [place] [address] PRO on 10-03-2022 INR Coag (PPP) [Relative time] 1.2 {INR} Normal [facility] ([place]) Comment on above: Result Comment: [employer] (CHEST, 1992, 102:312S-25S) recommended therapeutic rang e for oral anticoagulant therapy is: LOW RISK: Prophylaxis of starr ous thrombosis INR: 2.0-3.0 Treatment of pulmonary embol ism 2.0-3.0 Prevention of systemic embol ism 2.0-3.0 HIGH RISK: Mechanical prosth etic valves 2.5-3.5 Performed By: #### CMP, GFR, AMM, LAC, HEPAC #### [address] [address] PT Coag (PPP) [Time] 14.1 s Normal 9.0-14.9 [facility] ([place]) Comment on above: Result Comment: Effective , Protime results may be affected by some antibiotics (i.e. Ci profloxacin, Azithromycin, Bactrim) which may potentiate the act ion of oral anticoagulants, with further increases in Protime /INR. Performed By: #### CMP, GFR, AMM, LAC, HEPAC #### [place] [address] [place] [address] SALICYLATE on 10-03-2022 SALICYLATE 0.3 mg/dl Low 2.8 - 20.0 [facility] Comment on above: Result Comment: *PATIENTS TR EATED WITH SULFASALAZINE MAY GENERATE A FALSE HIGH RESULT FOR SALICYLATE. *PATIENTS TREATED WITH SULFA PYRIDINE MAY GENERATE A FALSE LOW RESULT FOR SALICYLATE. Performed By: #### [id number] ## ## [facility],[address] [place] [address] TROPONIN I, HIGH SENSITIVITY on 022 HS TROPONIN 6.5 pg/mL Normal 0.0 - 51.4 [facility] Comment on above: Performed By: #### [id number] ## ## [facility],[address] [place] [address] XR CHEST 1 VIEW on 10-03-2022 XR CHEST 1 VIEW ORIGINAL Normal [facility] EXAMINATION: ([place]) ONE XRAY VIEW OF THE [...] CR Chest Portable Patient Name: EVER MCKEON [facility] Diagnostic Radiology ACCESSION EXAM DATE/TIME PROCEDURE ORDERING PROVIDER [id number] 08/11/2022 10:55 EDT CR Chest Portable Crow OGDEN MD, DONTE CPT code 38259 Reason For Exam (CR Chest Portable) cough [...] Time PCR (Cepheid) Test Performed by [facility], [address] Work Phone: Group A Strep Screen by PCR on 08-11-20 [facility] Strep Screen by [facility] Strep Screen by PCR --> Status: F N ormal [facility] PCR NOT Detected Expected Result: Not Detected Methodology - Real Time PCR (Cepheid) Expected Result: Not Detected Methodology - Real Time PCR (Cepheid) Comment on above: Performed By: #### [facility] ### # [place] [address] [place] [address] XR CHEST PORTABLE on 08-11-2022 Patient Name: EVER MCKEON Diagnostic Radiology ACCESSION EXAM DATE/TIME PROCEDURE ORDERING PROVIDER [id number] 08/11/2022 10:55 EDT CR Chest Portable MD CARUSO VIJAY CPT code 66795 Reason For Exam (CR Chest Portable) cough [...] Time: 08/11/2022 11:08 Owen Culver MD - [facility] Patient Name: EVER MCKEON Work Phone: Diagnostic Radiology ACCESSION EXAM DATE/TIME PROCEDURE ORDERING PROVIDER [id number] 08/11/2022 10:55 EDT CR Chest Portable Crow OGDEN MD, VIJAY CPT code 20795 Reason For Exam (CR Chest Portable) cough [...] Phone: XR CHEST PORTABLE Ordered By: Owen Cluver on 08-11-2022 [facility] Work Phone: [facility]DS on 06-15-2022 [facility] HNO ID: [id number] Normal [place] Author: MD Lakhwinder Gunn Service: [facility] Author Type: Resident Center Type: Discharge Summary Filed: 06/15/2022 4:40 PM Note Text: Attestation signed by Calvin Urban MD at 6:47 PM Attending Note I personally saw and examined the patient on 06/15/22 . I reviewed the resident's note. I agree with the resident's assessmen t and plan unless otherwise noted. Signature: Calvin Urban MD Attending, [facility] edicine Date: 06/15/2022 Time: 6:47 PM DISCHARGE [...] anxiety, depression, insomnia, seasonal allergies presented to [facility] for evaluation of strokelike symptoms. CT [...] derlying encephalopathy. [facility]. Patient was [...] 06-15-2022 Albumin [Mass/Vol] 3.2 g/dL Low 3.9-4.9 [facility] Comment on above: Order Comment: Specimen Type : BLOOD SPECIMEN Ordering Facility: [facility] Address: [address] [place] [address] Performed By: #### 3298-7, 4 024-6, 5643-2 #### [facility] [id number] [address] [place] [address] [place] ALP [Catalytic activity/Vol] 163 U/L High 34-123 [facility] Comment on above: Order Comment: Specimen Type : BLOOD SPECIMEN Ordering Facility: [facility] Address: [address] [place] [address] Performed By: #### 3298-7, 4 024-6, 5643-2 #### [facility] CLIA [id number] [address] ALT With P-5'-P [Catalytic 28 U/L Normal 7-38 A [facility] activity/Vol] Comment on above: Order Comment: Specimen Type : BLOOD SPECIMEN Ordering Facility: [facility] Address: [address] [place] [address] Performed By: #### 3298-7, 4 024-6, 5643-2 #### [facility] CLIA [id number] [address] Anion gap [Moles/Vol] 7 mmol/L Low 9-18 [facility] Comment on above: Order Comment: Specimen Type : BLOOD SPECIMEN Ordering Facility: [facility] Address: [facility] [address] [place] [address] Performed By: #### 3298-7, 4 024-6, 5643-2 #### [facility] CLIA [id number] [address] AST With P-5'-P [Catalytic 39 U/L High 13-35 A [facility] activity/Vol] Comment on above: Order Comment: Specimen Type : BLOOD SPECIMEN Ordering Facility: [facility] Address: [address] [place] [address] Performed By: #### 3298-7, 4 024-6, 5643-2 #### [facility] CLIA [id number] [address] Bilirubin [Mass/Vol] 0.3 mg/dL Normal 0.2-1.3 [facility] Comment on above: Order Comment: Specimen Type : BLOOD SPECIMEN Ordering Facility: [facility] Address: [address] [place] [address] Performed By: #### 3298-7, 4 024-6, 5643-2 #### [facility] CLIA [id number] [address] [place] [address] [place] Calcium [Mass/Vol] 8.5 mg/dL Normal 8.5-10.2 [facility] Comment on above: Order Comment: Specimen Type : BLOOD SPECIMEN Ordering Facility: [facility] Address: [address] [place] [address] Performed By: #### 3298-7, 4 024-6, 5643-2 #### [facility] CLIA [id number] 1 [place] [address] [place] Chloride [Moles/Vol] 108 mmol/L High 97-105 [facility] Comment on above: Order Comment: Specimen Type : BLOOD SPECIMEN Ordering Facility: [facility] Address: [address] [place] [address] Performed By: #### 3298-7, 4 024-6, 5643-2 #### [facility] CLIA [id number] [address] [place] [facility] CO2 [Moles/Vol] 22 mmol/L Normal 22-30 [facility] Comment on above: Order Comment: Specimen Type : BLOOD SPECIMEN [facility]ing Facility: [facility] Address: [address] [place] [address] Performed By: #### 3298-7, 4 024-6, 5643-2 #### [facility] CLIA [id number] 1 [place] [address] [place] Creatinine [Mass/Vol] 0.66 mg/dL Normal 0.58-0.96 [facility] Comment on above: Order Comment: Specimen Type : BLOOD SPECIMEN [facility]ing Facility: [facility] Address: [address] [place] [address] Performed By: #### 3298-7, 4 024-6, 5643-2 #### [facility] CLIA [id number] 1 [place] [address] [place] ESTIMATED GLOMERULAR 105 mL/min/1.73m??? Normal >=60 [facility] Comment on above: Order Comment: Specimen Type : BLOOD SPECIMEN Ordering Facility: [facility] Address: [address] [place], [place] [address] [address] Result Comment: Estimated Gl omerular Filtration Rate [...] By: #### 3298-7, 4 024-6, 5643-2 #### [facility] CLIA [id number] 1 [place] [address] [place] Glucose [Mass/Vol] 70 mg/dL Low 74-99 [facility] Comment on above: Order Comment: Specimen Type : BLOOD SPECIMEN [facility] Facility: [facility] Address: [address] [place] [id number] Result Comment: The [place] Diabetes [employer] (ADA) provides guidance for cutoff [...] for diagnosis of diabetes. Reference: Standards of [facility] Care in Diabetes 2016, [place] [employer]. Diabetes Care. 2016.39(Suppl 1). Performed By: #### 3298-7, 4 024-6, 5643-2 #### [facility] CLIA [id number] 1 [place] [address] [place] Potassium [Moles/Vol] 3.6 mmol/L Low 3.7-5.1 [facility] Comment on above: Order Comment: Specimen Type : BLOOD SPECIMEN [facility]ing Facility: [facility] Address: [facility] [address] [place] [address] Performed By: #### 3298-7, 4 024-6, 5643-2 #### [facility] CLIA [id number] [address] Protein [Mass/Vol] 5.6 g/dL Low 6.3-8.0 [facility] Comment on above: Order Comment: Specimen Type : BLOOD SPECIMEN [facility] Facility: [facility] Address: [facility] [address] [place] [address] Performed By: #### 3298-7, 4 024-6, 5643-2 #### [facility] CLIA [id number] [address] [place] [address] Sodium [Moles/Vol] 137 mmol/L Normal 136-144 [facility] Comment on above: Order Comment: Specimen Type : BLOOD SPECIMEN [facility] Facility: [facility] Address: [facility] [address] [place] [address] Performed By: #### 3298-7, 4 024-6, 5643-2 #### [facility] CLIA [id number] [address] [place] [address] Urea nitrogen [Mass/Vol] 17 mg/dL Normal 7-21 [facility] Comment on above: Order Comment: Specimen Type : BLOOD SPECIMEN [facility] Facility: [facility] Address: [facility] [address] [place] [address] Performed By: #### 3298-7, 4 024-6, 5643-2 #### [facility] CLIA [id number] [address] THERAPY NT on 06-15-2022 THERAPY NT HNO ID: [id number] Normal [facility] Author: Ronna Lino, PT Ce nter Service: Physical Therapy Author Type: Physical Therapist Type: Therapy (PT/OT/Speech/Resp) Filed: 06/15/2022 11:55 AM Note Text: Physical Therapy Evaluation SERVICE DATE: 06/15/2022 SERVICE TIME: 918 to 933 ROOM: [id number] Recommended Discharge Disposition: Home Recommended Discharge Disposition [...] Gait D evice: None Gait Distance (feet): 092vcm5 initally CGA but quickly progresses to stand [...] Skilled Need Interventions Provided: Evaluation $ Evaluation-Low (70255) Billed Units: 1 unit Training AND education [...] TIME: 11:55 AM THERAPY NT HNO ID: [id number] Normal [facility] Author: CHELSEY [facility] Service: Occupational Therapy Author Type: Occupational Therapist Type: Therapy (PT/OT/Speech/Resp) Filed: 06/15/2022 9:34 AM Note Text: OCCUPATIONAL THERAPY MISSED VISIT SERVICE DATE: 06/15/2022 SERVICE TIME: 932 to 09 ROOM: [place] [address] Patient not seen due to No Skilled [...] Erythrocyte distribution width 15.8 % High 11.5-15.0 [facility] (RBC) [Ratio] Comment on above: Order Comment: Specimen Type : BLOOD SPECIMEN [facility] Facility: [facility] Address: [address] [place] [address] Performed By: #### 3298-7, 4 024-6, 5643-2 #### [facility] CLIA [id number] [address] Hematocrit (Bld) [Volume fraction] 28.0 % Low 36.0-4 6.0 [facility] Comment on above: Order Comment: Specimen Type : BLOOD SPECIMEN [facility] Facility[facility] Address: [address] [place] [address] Performed By: #### 3298-7, 4 024-6, 5643-2 #### [facility] CLIA [id number] [address] Hemoglobin (Bld) [Mass/Vol] 8.7 g/dL Low 11.5-15.5 [facility] Comment on above: Order Comment: Specimen Type : BLOOD SPECIMEN [facility] Facility: [facility] Address: [address] [place] [place] [address] Performed By: #### 3298-7, 4 024-6, 5643-2 #### [facility] CLIA [id number] [address] MCH (RBC) [Entitic mass] 24.0 pg Low 26.0-34.0 [facility] Comment on above: Order Comment: Specimen Type : BLOOD SPECIMEN [facility] Facility: [facility] Address: [address] [place] [address] Performed By: #### 3298-7, 4 024-6, 5643-2 #### [facility] CLIA [id number] [address] MCHC (RBC) [Mass/Vol] 31.1 g/dL Normal 30.5-36.0 [facility] Comment on above: Order Comment: Specimen Type : BLOOD SPECIMEN [facility] Facility: [facility] Address: [address] [place] [address] Performed By: #### 3298-7, 4 024-6, 5643-2 #### [facility] CLIA [id number] [address] MCV (RBC) [Entitic vol] 77.3 fL Low 80.0-100.0 [facility] Comment on above: Order Comment: Specimen Type : BLOOD SPECIMEN [facility]ing Facility: [facility] Address: [address] [place] [address] Performed By: #### 3298-7, 4 024-6, 5643-2 #### [facility] CLIA [id number] [address] Nucleated RBC (Bld) [#/Vol] 10*3/uL Normal <0.01 [facility] Comment on above: Order Comment: Specimen Type : BLOOD SPECIMEN [facility]ing Facility: [facility] Address: [address] [place] [address] Performed By: #### 3298-7, 4 024-6, 5643-2 #### [facility] CLIA [id number] [address] Platelet mean volume (Bld) 10.7 fL Normal 9.0-12.7 [facility] [Entitic vol] Comment on above: Order Comment: Specimen Type : BLOOD SPECIMEN [facility]ing Facility: [facility] Address: [facility] [place] [address] Performed By: #### 3298-7, 4 024-6, 5643-2 #### [facility] CLIA [id number] [address] Platelets (Bld) [#/Vol] 78 10*3/uL Low 150-400 [facility] Comment on above: Order Comment: Specimen Type : BLOOD SPECIMEN [facility]ing Facility: [facility] Address: [address] [place] [address] Result Comment: Results chec ked and verified Performed By: #### 3298-7, 4 024-6, 5643-2 #### [facility] CLIA [id number] [address] [place] RBC (Bld) [#/Vol] 3.62 10*6/uL Low 3.90-5.20 [facility] Comment on above: Order Comment: Specimen Type : BLOOD SPECIMEN [facility]ing Facility: [facility] Address: [address] [place] [address] Performed By: #### 3298-7, 4 024-6, 5643-2 #### [facility] CLIA [id number] [address] WBC (Bld) [#/Vol] 5.69 10*3/uL Normal 3.70-11.00 [facility] Comment on above: Order Comment: Specimen Type : BLOOD SPECIMEN [facility]ing Facility: [facility] Address: [address] [place] [address] Performed By: #### 3298-7, 4 024-6, 5643-2 #### [facility] CLIA [id number] [address] Comprehensive metabolic 2000 panel on 0 06-14-2022 Albumin [Mass/Vol] 3.2 g/dL Low 3.9-4.9 [facility] Comment on above: Order Comment: Specimen Type : BLOOD SPECIMEN [facility]ing Facility: [facility] Address: [address] [place] [address] Performed By: #### 3298-7, 4 024-6, 5643-2 #### [facility] CLIA [id number] [address] [facility] ALP [Catalytic activity/Vol] 159 U/L High 34-123 [facility] Comment on above: Order Comment: Specimen Type : BLOOD SPECIMEN [facility]ing Facility[facility] Address: [address] [place] [address] Performed By: #### 3298-7, 4 024-6, 5643-2 #### [facility] CLIA [id number] [address] ALT With P-5'-P [Catalytic 27 U/L Normal 7-38 [facility] activity/Vol] Comment on above: Order Comment: Specimen Type : BLOOD SPECIMEN [facility]ing Facility: [facility] Address: [facility] [address] [place] [address] Performed By: #### 3298-7, 4 024-6, 5643-2 #### [facility] CLIA [id number] [address] [facility] Anion gap [Moles/Vol] 9 mmol/L Normal 9-18 [facility] Comment on above: Order Comment: Specimen Type : BLOOD SPECIMEN [facility]ing Facility: [facility] Address: [facility] [address] [place] [address] Performed By: #### 3298-7, 4 024-6, 5643-2 #### [facility] CLIA [id number] [address] [facility] AST With P-5'-P [Catalytic 37 U/L High 13-35 [facility] activity/Vol] Comment on above: Order Comment: Specimen Type : BLOOD SPECIMEN [facility] Facility: [facility] Address: [facility] [address] [place] [address] Performed By: #### 3298-7, 4 024-6, 5643-2 #### [facility] CLIA [id number] [address] [place] Bilirubin [Mass/Vol] 0.4 mg/dL Normal 0.2-1.3 [facility] Comment on above: Order Comment: Specimen Type : BLOOD SPECIMEN [facility] Facility[facility] Address: [address] [place] [place] [address] Performed By: #### 3298-7, 4 024-6, 5643-2 #### [facility] CLIA [id number] [address] [place] Calcium [Mass/Vol] 8.5 mg/dL Normal 8.5-10.2 [facility] Comment on above: Order Comment: Specimen Type : BLOOD SPECIMEN [facility]ing Facility: [facility] Address: [address] Performed By: #### 3298-7, 4 024-6, 5643-2 #### [facility] CLIA [id number] 1 [place] [address] [place] Chloride [Moles/Vol] 110 mmol/L High 97-105 [facility] Comment on above: Order Comment: Specimen Type : BLOOD SPECIMEN [facility] Facility[facility] Address: [address] [place] [place] [address] Performed By: #### 3298-7, 4 024-6, 5643-2 #### [facility] CLIA [id number] 1 [place] [address] [place] CO2 [Moles/Vol] 21 mmol/L Low 22-30 [facility] Comment on above: Order Comment: Specimen Type : BLOOD SPECIMEN [facility]ing Facility[facility] Address: [address] [place] [address] Performed By: #### 3298-7, 4 024-6, 5643-2 #### [facility] CLIA [id number] 1 [place] [address] [place] Creatinine [Mass/Vol] 0.65 mg/dL Normal 0.58-0.96 [facility] Comment on above: Order Comment: Specimen Type : BLOOD SPECIMEN [facility]ing Facility[facility] Address: [address] [place] [address] Performed By: #### 3298-7, 4 024-6, 5643-2 #### [facility] CLIA [id number] [address] [place] ESTIMATED GLOMERULAR 105 mL/min/1.73m??? Normal >=60 [facility] Comment on above: Order Comment: Specimen Type : BLOOD SPECIMEN [facility]ing Facility[facility] Address: [address] [place] [place] [address] Result Comment: Estimated Gl omerular Filtration Rate [...] By: #### 3298-7, 4 024-6, 5643-2 #### [facility] CLIA [id number] 1 [place] [address] [place] Glucose [Mass/Vol] 192 mg/dL High 74-99 [facility] Comment on above: Order Comment: Specimen Type : BLOOD SPECIMEN Ordering Facility[facility] Address: [address] [place] [id number] Result Comment: The [place] Diabetes Association (ADA) provides guidance for cutoff [...] for diagnosis of diabetes. Reference: Standards of [facility] Care in Diabetes 2016, [place] [employer]. Diabetes Care. 2016.39(Suppl 1). Performed By: #### 3298-7, 4 024-6, 5643-2 #### [facility] CLIA [id number] 1 [place] [address] [place] Potassium [Moles/Vol] 3.8 mmol/L Normal 3.7-5.1 [facility] Comment on above: Order Comment: Specimen Type : BLOOD SPECIMEN Ordering Facility: [facility] Address: [address] [place] [address] Performed By: #### 3298-7, 4 024-6, 5643-2 #### [facility] CLIA [id number] [address] [place] Protein [Mass/Vol] 5.4 g/dL Low 6.3-8.0 [facility] Comment on above: Order Comment: Specimen Type : BLOOD SPECIMEN [facility]ing Facility: [facility] Address: [address] [place] [address] Performed By: #### 3298-7, 4 024-6, 5643-2 #### [facility] CLIA [id number] [address] Sodium [Moles/Vol] 140 mmol/L Normal 136-144 [facility] Comment on above: Order Comment: Specimen Type : BLOOD SPECIMEN [facility] Facility[facility] Address: [facility] [address] [place] [address] Performed By: #### 3298-7, 4 024-6, 5643-2 #### [facility] CLIA [id number] [address] [place] [address] Urea nitrogen [Mass/Vol] 17 mg/dL Normal 7-21 [facility] Comment on above: Order Comment: Specimen Type : BLOOD SPECIMEN [facility]ing Facility[facility] Address: [facility] [address] [place] [address] Performed By: #### 3298-7, 4 024-6, 5643-2 #### [facility] CLIA [id number] [address] CBC panel Auto (Bld) on 06-13-2022 Erythrocyte distribution width 15.6 % High 11.5-15.0 [facility] (RBC) [Ratio] Comment on above: Order Comment: Specimen Type : BLOOD SPECIMEN [facility] Facility[facility] Address: [address] [place] [address] Performed By: #### 3298-7, 4 024-6, 5643-2 #### [facility] CLIA [id number] [address] OF [facility] Hematocrit (Bld) [Volume fraction] 26.4 % Low 36.0-4 6.0 [facility] Comment on above: Order Comment: Specimen Type : BLOOD SPECIMEN Ordering Facility: [facility] Address: [address] [place] [address] Performed By: #### 3298-7, 4 024-6, 5643-2 #### [facility] CLIA [id number] [address] S OF [facility] Hemoglobin (Bld) [Mass/Vol] 8.3 g/dL Low 11.5-15.5 [facility] Comment on above: Order Comment: Specimen Type : BLOOD SPECIMEN [facility] Facility[facility] Address: [address] [place] [address] Performed By: #### 3298-7, 4 024-6, 5643-2 #### [facility] CLIA [id number] [address] [place] [address] [place] OF [place] MCH (RBC) [Entitic mass] 24.4 pg Low 26.0-34.0 [facility] Comment on above: Order Comment: Specimen Type : BLOOD SPECIMEN [facility] Facility[facility] Address: [address] [place] [place] [address] Performed By: #### 3298-7, 4 024-6, 5643-2 #### [facility] CLIA [id number] [address] [place] [address] S [facility] MCHC (RBC) [Mass/Vol] 31.4 g/dL Normal 30.5-36.0 [facility] Comment on above: Order Comment: Specimen Type : BLOOD SPECIMEN [facility] Facility[facility] Address: [address] [place] [place] [address] Performed By: #### 3298-7, 4 024-6, 5643-2 #### [facility] CLIA [id number] [address] S OF [facility] MCV (RBC) [Entitic vol] 77.6 fL Low 80.0-100.0 [facility] Comment on above: Order Comment: Specimen Type : BLOOD SPECIMEN [facility] Facility[facility] Address: [address] Performed By: #### 3298-7, 4 024-6, 5643-2 #### [facility] CLIA [id number] 1 [place] [address] [place] Nucleated RBC (Bld) [#/Vol] 10*3/uL Normal <0.01 [facility] Comment on above: Order Comment: Specimen Type : BLOOD SPECIMEN [facility] Facility[facility] Address: [address] [place] [address] Performed By: #### 3298-7, 4 024-6, 5643-2 #### [facility] CLIA [id number] [address] [facility] Platelet mean volume (Bld) 10.2 fL Normal 9.0-12.7 [facility] [Entitic vol] Comment on above: Order Comment: Specimen Type : BLOOD SPECIMEN [facility] Facility[facility] Address: [facility] [address] [place] [address] Performed By: #### 3298-7, 4 024-6, 5643-2 #### [facility] CLIA [id number] [address] [place] OF [place] Platelets (Bld) [#/Vol] 76 10*3/uL Low 150-400 [facility] Comment on above: Order Comment: Specimen Type : BLOOD SPECIMEN [facility] Facility[facility] Address: [address] [place] [address] Result Comment: Platelet cou nt confirmed by manual review of peripheral blood smear Performed By: #### 3298-7, 4 024-6, 5643-2 #### [facility] CLIA [id number] 1 [place] [address] [facility] S OF [place] RBC (Bld) [#/Vol] 3.40 10*6/uL Low 3.90-5.20 [facility] Comment on above: Order Comment: Specimen Type : BLOOD SPECIMEN [facility] Facility[facility] Address: [address] [place] [address] Performed By: #### 3298-7, 4 024-6, 5643-2 #### [facility] CLIA [id number] [address] OF [facility] WBC (Bld) [#/Vol] 3.36 10*3/uL Low 3.70-11.00 [facility] Comment on above: Order Comment: Specimen Type : BLOOD SPECIMEN [facility] Address: [address] [place] [address] Performed By: #### 3298-7, 4 024-6, 5643-2 #### [facility] CLIA [id number] [address] Comprehensive metabolic 2000 panel on 0 06-13-2022 Albumin [Mass/Vol] 3.2 g/dL Low 3.9-4.9 [facility] Comment on above: Order Comment: Specimen Type : BLOOD SPECIMEN [facility] Facility[facility] Address: [address] [place] [place] [address] Performed By: #### 3298-7, 4 024-6, 5643-2 #### [facility] CLIA [id number] [address] ALP [Catalytic activity/Vol] 155 U/L High 34-123 [facility] Comment on above: Order Comment: Specimen Type : BLOOD SPECIMEN [facility] Address: [address] [place] [address] Performed By: #### 3298-7, 4 024-6, 5643-2 #### [facility] CLIA [id number] [address] ALT With P-5'-P [Catalytic 29 U/L Normal 7-38 [facility] activity/Vol] Comment on above: Order Comment: Specimen Type : BLOOD SPECIMEN [facility] Facility[facility] Address: [address] [place] [address] Performed By: #### 3298-7, 4 024-6, 5643-2 #### [facility] CLIA [id number] 1 [place] [address] [place] Anion gap [Moles/Vol] 9 mmol/L Normal 9-18 [facility] Comment on above: Order Comment: Specimen Type : BLOOD SPECIMEN [facility] Facility: [facility] Address: [address] [place] [address] [place] [address] Performed By: #### 3298-7, 4 024-6, 5643-2 #### [facility] CLIA [id number] 1 [place] [address] [place] AST With P-5'-P [Catalytic 44 U/L High 13-35 [facility] activity/Vol] Comment on above: Order Comment: Specimen Type : BLOOD SPECIMEN [facility] Facility[facility] Address: [address] [place] [address] Performed By: #### 3298-7, 4 024-6, 5643-2 #### [facility] CLIA [id number] [address] [place] Bilirubin [Mass/Vol] 0.7 mg/dL Normal 0.2-1.3 [facility] Comment on above: Order Comment: Specimen Type : BLOOD SPECIMEN [facility] Facility[facility] Address: [facility] [place] [address] Performed By: #### 3298-7, 4 024-6, 5643-2 #### [facility] CLIA [id number] [address] [place] Calcium [Mass/Vol] 8.7 mg/dL Normal 8.5-10.2 [facility] Comment on above: Order Comment: Specimen Type : BLOOD SPECIMEN [facility] Facility[facility] Address: [address] [place] [address] [place] [address] Performed By: #### 3298-7, 4 024-6, 5643-2 #### [facility] CLIA [id number] [address] [place] Chloride [Moles/Vol] 109 mmol/L High 97-105 [facility] Comment on above: Order Comment: Specimen Type : BLOOD SPECIMEN [facility] Address: [address] [place] [address] Performed By: #### 3298-7, 4 024-6, 5643-2 #### [facility] CLIA [id number] [address] S OF [facility] CO2 [Moles/Vol] 23 mmol/L Normal 22-30 [facility] Comment on above: Order Comment: Specimen Type : BLOOD SPECIMEN [facility] Facility[facility] Address: [address] [place] [address] Performed By: #### 3298-7, 4 024-6, 5643-2 #### [facility] CLIA [id number] [address] Creatinine [Mass/Vol] 0.53 mg/dL Low 0.58-0.96 [facility] Comment on above: Order Comment: Specimen Type : BLOOD SPECIMEN [facility] Facility[facility] Address: [address] [place] [address] Performed By: #### 3298-7, 4 024-6, 5643-2 #### [facility] CLIA [id number] [address] ESTIMATED GLOMERULAR 111 mL/min/1.73m??? Normal >=60 [facility] Comment on above: Order Comment: Specimen Type : BLOOD SPECIMEN [facility] Facility[facility] Address: [address] [place] [address] Result Comment: Estimated Gl omerular Filtration Rate [...] By: #### 3298-7, 4 024-6, 5643-2 #### [facility] CLIA [id number] 1 [place] [address] [place] Glucose [Mass/Vol] 102 mg/dL High 74-99 [facility] Comment on above: Order Comment: Specimen Type : BLOOD SPECIMEN Ordering Facility: [facility] Address: [address] [place] [place] [address] Result Comment: The [place] [employer] (ADA) provides guidance for cutoff [...] for diagnosis of diabetes. Reference: Standards of [facility] Care in Diabetes 2016, [place] [employer]. Diabetes Care. 2016.39(Suppl 1). Performed By: #### 3298-7, 4 024-6, 5643-2 #### [facility] CLIA [id number] 1 [place] [address] [place] Potassium [Moles/Vol] 3.6 mmol/L Low 3.7-5.1 [facility] Comment on above: Order Comment: Specimen Type : BLOOD SPECIMEN Ordering Facility: [facility] Address: [address] [id number] Performed By: #### 3298-7, 4 024-6, 5643-2 #### [facility] CLIA [id number] 1 [place] [address] [place] Protein [Mass/Vol] 5.8 g/dL Low 6.3-8.0 [facility] Comment on above: Order Comment: Specimen Type : BLOOD SPECIMEN [facility] Facility[facility] Address: [address] [place] [address] Performed By: #### 3298-7, 4 024-6, 5643-2 #### [facility] CLIA [id number] [address] STATE S OF [facility] Sodium [Moles/Vol] 141 mmol/L Normal 136-144 [facility] Comment on above: Order Comment: Specimen Type : BLOOD SPECIMEN [facility] Facility[facility] Address: [address] [place], [place] [address] Performed By: #### 3298-7, 4 024-6, 5643-2 #### [facility] CLIA [id number] [address] [place] [facility] Urea nitrogen [Mass/Vol] 14 mg/dL Normal 7-21 [facility] Comment on above: Order Comment: Specimen Type : BLOOD SPECIMEN [facility] Facility[facility] Address: [address] [place] [address] Performed By: #### 3298-7, 4 024-6, 5643-2 #### [facility] CLIA [id number] [address] [place] US ASCITES SURVEY on 06-13-2022 ASCITES SURVEY * * *Final Report* * * Normal [facility] DATE OF EXAM: Jun 13 2022 11:17AM [facility] 1016 - ASCITES SURVEY / PROCEDURE [...] liver. Probable splenomegaly. IMPRESSION: No ascites identified. [place]: PSCB Transcribe Date/Time: Jun 13 2022 12:18P Dictated by : RAMSES VILLALTA MD This examination was interpreted and the report review ed and electronically signed by: RAMSES VILLALTA MD on Jun 13 2022 12:19PM EST [id number] APAP SerPl-mCnc on 06-12-2022 Acetaminophen [Mass/Vol] ug/mL Low 10-30 [facility] Comment on above: Order Comment: Specimen Type : BLOOD SPECIMEN [facility] Facility[facility] Address: [address] [place] [id number] Result Comment: Toxic > 150 ug/mL 4 hours post ingestion The Kacy Panda nomogram can be used to estimate the probability of hepatotoxicity via the relationship of plasma acetaminophen concentration to the post ingestion interval. (Myles. Pedi atrics. 1975. 55:871 to 876 and Kacy et al. Arch Care Consultant Med. 1981. 141:380 to 385). Reference ranges and high/lo w indicator flags are provided as general guidelines only. The treating physician must determine appropriate target levels/dosing based on the specific clinical situation. Performed By: #### 3298-7, 4 024-6, 5643-2 #### [facility] CLIA [id number] 1 [place] [address] [place] Ammonia Plas-sCnc on 06-12-2022 Ammonia (P) [Moles/Vol] 107 umol/L High 11-51 [facility] Comment on above: Order Comment: Specimen Type : BLOOD SPECIMEN [facility] Facility[facility] Address: [address] [place] [id number] Performed By: #### 3298-7, 4 024-6, 5643-2 #### [facility] CLIA [id number] 1 [place] [address] [place] Bacteria Ur Cult on 06-12-2022 Bacteria identified Cx >=100,000 CFU/mL Three or Abnormal [facility] (U) more organisms, no one type Center predominant, suggesting contamination during collection. Recollect if clinically indicated. Comment on above: Order Comment: Specimen Type : URINE SPECIMENOrdering Facility: [facility] Address: [address] [phone] Performed By: #### 630-4 ### [facility] [id number] [place] [address] [place] Basic metabolic 2000 panel on 2 Anion gap [Moles/Vol] 9 mmol/L Normal 9-18 [facility] Comment on above: Order Comment: Specimen Type : BLOOD SPECIMEN [facility] Facility[facility] Address: [address] [place] [address] Performed By: #### 3298-7, 4 024-6, 5643-2 #### [facility] CLIA [id number] 1 [place] [address] [place] Calcium [Mass/Vol] 9.5 mg/dL Normal 8.5-10.2 [facility] Comment on above: Order Comment: Specimen Type : BLOOD SPECIMEN [facility] Facility[facility] Address: [address] [place] [address] Performed By: #### 3298-7, 4 024-6, 5643-2 #### [facility] CLIA [id number] 1 [place] [address] [place] Chloride [Moles/Vol] 109 mmol/L High 97-105 [facility] Comment on above: Order Comment: Specimen Type : BLOOD SPECIMEN [facility] Address: [address] [place] [address] Performed By: #### 3298-7, 4 024-6, 5643-2 #### [facility] CLIA [id number] 1 [place] [address] [place] CO2 [Moles/Vol] 22 mmol/L Normal 22-30 [facility] Comment on above: Order Comment: Specimen Type : BLOOD SPECIMEN [facility] Address: [address] [place] [address] Performed By: #### 3298-7, 4 024-6, 5643-2 #### [facility] CLIA [id number] 1 [place] [address] [place] Creatinine [Mass/Vol] 0.58 mg/dL Normal 0.58-0.96 [facility] Comment on above: Order Comment: Specimen Type : BLOOD SPECIMEN [facility] Address: [address] [place] [address] Performed By: #### 3298-7, 4 024-6, 5643-2 #### [facility] CLIA [id number] 1 [place] [address] [place] ESTIMATED GLOMERULAR 108 mL/min/1.73m??? Normal >=60 [facility] FILTRATION RATE Center Comment on above: Order Comment: Specimen Type : BLOOD SPECIMEN [facility] Address: [address] [place] [address] Result Comment: Estimated Gl omerular Filtration Rate [...] By: #### 3298-7, 4 024-6, 5643-2 #### [facility] CLIA [id number] [address] [place] [address] [place] Glucose [Mass/Vol] 114 mg/dL High 74-99 [facility] Comment on above: Order Comment: Specimen Type : BLOOD SPECIMEN [facility] Address: [address] [place] [address] Result Comment: The [place] Diabetes Association (ADA) provides guidance for cutoff [...] for diagnosis of diabetes. Reference: Standards of [facility] Care in Diabetes 2016, [place] Diabetes Association. Diabetes Care. 2016.39(Suppl 1). Performed By: #### 3298-7, 4 024-6, 5643-2 #### [facility] CLIA [id number] [address] [place] [facility] Potassium [Moles/Vol] 3.7 mmol/L Normal 3.7-5.1 [facility] Comment on above: Order Comment: Specimen Type : BLOOD SPECIMEN [facility] Address: [facility] [address] [place] [address] Performed By: #### 3298-7, 4 024-6, 5643-2 #### [facility] CLIA [id number] [address] S OF [facility] Sodium [Moles/Vol] 140 mmol/L Normal 136-144 [facility] Comment on above: Order Comment: Specimen Type : BLOOD SPECIMEN [facility] Facility[facility] Address: [facility] [address] [place] [address] Performed By: #### 3298-7, 4 024-6, 5643-2 #### [facility] CLIA [id number] [address] Urea nitrogen [Mass/Vol] 15 mg/dL Normal 7-21 [facility] Comment on above: Order Comment: Specimen Type : BLOOD SPECIMEN [facility] Address: [facility] [address] [place] [address] Performed By: #### 3298-7, 4 024-6, 5643-2 #### [facility] CLIA [id number] [address] S OF [facility] CBC panel Auto (Bld) on 06-12-2022 Erythrocyte distribution width 15.7 % High 11.5-15.0 [facility] (RBC) [Ratio] Comment on above: Order Comment: Specimen Type : BLOOD SPECIMEN [facility] Address: [facility] [address] [place] [address] Performed By: #### 3298-7, 4 024-6, 5643-2 #### [facility] CLIA [id number] [address] [place] [address] [place] Hematocrit (Bld) [Volume fraction] 31.5 % Low 36.0-4 6.0 [facility] Comment on above: Order Comment: Specimen Type : BLOOD SPECIMEN [facility] Address: [facility] [address] [place] [address] Performed By: #### 3298-7, 4 024-6, 5643-2 #### [facility] CLIA [id number] [address] S OF [facility] Hemoglobin (Bld) [Mass/Vol] 9.9 g/dL Low 11.5-15.5 [facility] Comment on above: Order Comment: Specimen Type : BLOOD SPECIMEN [facility] Address: [facility] [address] [place] [address] Performed By: #### 3298-7, 4 024-6, 5643-2 #### [facility] CLIA [id number] [address] [place] [address] S OF [facility] MCH (RBC) [Entitic mass] 24.7 pg Low 26.0-34.0 [facility] Comment on above: Order Comment: Specimen Type : BLOOD SPECIMEN [facility] Facility[facility] Address: [facility] [address] [place] [address] Performed By: #### 3298-7, 4 024-6, 5643-2 #### [facility] CLIA [id number] [address] [place] [address] S OF [facility] MCHC (RBC) [Mass/Vol] 31.4 g/dL Normal 30.5-36.0 [facility] Comment on above: Order Comment: Specimen Type : BLOOD SPECIMEN [facility] Facility[facility] Address: [facility] [address] [place] [address] Performed By: #### 3298-7, 4 024-6, 5643-2 #### [facility] CLIA [id number] [address] [place] MCV (RBC) [Entitic vol] 78.6 fL Low 80.0-100.0 [facility] Comment on above: Order Comment: Specimen Type : BLOOD SPECIMEN [facility] Facility[facility] Address: [address] [place] [address] Performed By: #### 3298-7, 4 024-6, 5643-2 #### [facility] CLIA [id number] 1 [place] [address] [place] Nucleated RBC (Bld) [#/Vol] 10*3/uL Normal <0.01 [facility] Comment on above: Order Comment: Specimen Type : BLOOD SPECIMEN [facility] Address: [address] [place] [address] Performed By: #### 3298-7, 4 024-6, 5643-2 #### [facility] CLIA [id number] [address] [place] Platelet mean volume (Bld) 10.0 fL Normal 9.0-12.7 [facility] [Entitic vol] Comment on above: Order Comment: Specimen Type : BLOOD SPECIMEN [facility] Address: [address] [place] [address] Performed By: #### 3298-7, 4 024-6, 5643-2 #### [facility] CLIA [id number] [address] [place] Platelets (Bld) [#/Vol] 99 10*3/uL Low 150-400 [facility] Comment on above: Order Comment: Specimen Type : BLOOD SPECIMEN [facility] Address: [address] [place] [address] Performed By: #### 3298-7, 4 024-6, 5643-2 #### [facility] CLIA [id number] 1 [place] [address] [place] RBC (Bld) [#/Vol] 4.01 10*6/uL Normal 3.90-5.20 [facility] Comment on above: Order Comment: Specimen Type : BLOOD SPECIMEN [facility] Facility[facility] Address: [address], [place] [address] Performed By: #### 3298-7, 4 024-6, 5643-2 #### [facility] CLIA [id number] 1 [place] [address] [place] WBC (Bld) [#/Vol] 5.11 10*3/uL Normal 3.70-11.00 [facility] Comment on above: Order Comment: Specimen Type : BLOOD SPECIMEN [facility]ing Facility[facility] Address: [address] [place] [address] Performed By: #### 3298-7, 4 024-6, 5643-2 #### [facility] IA [id number] 1 [address] [id number] [facility] S OF [place] CONSULT on 06-12-2022 CONSULT HNO ID: [id number] Normal [facility] Medical Author: Roderick Benavidez MD [facility] er Service: Neurology General Author Type: [...] small stroke could not be entirely dismissed. Hardin IVT risks outweigh benefits at this time. Pre-morbid mRS: Premorbid Modified Holbrook Score: 0 - N o symptoms at [...] * *Final Report* * * Invalid Interpretation [facility] WO IVCON DATE OF EXAM: Jun 12 2022 9:40AM [facility] 0502 - CT BRAIN ATTACK WO IVCON / [id number] PROCEDURE REASON: Focal neuro deficit, new, fixed, [...] an d extracranial soft tissues are normal. Sales Process Manager (topogram) images: No additional findings. IMPRESSION: Focal white matter hypodensity in the left frontal cor arron radiata is new from 2013, which may represent age-indeterminate lacun ar infarct. CRITICAL TEST/RESULTS: Communicated with on at 9:48 AM. CR_1 [place]: NGOC Transcribe Date/Time: Jun 12 2022 9:43A Dictated by : PHILL WALLIS MD This examination was interpreted and the report review ed and electronically signed by: PHILL WALLIS MD on Jun 12 2022 9:48AM EST [id number] CRITICAL!! CTA HEAD W IVCON on 06-12-2022 CTA HEAD W IVCON * * *Final Report* * * Normal A [facility] DATE OF EXAM: Jun 12 2022 9:50AM [facility] 0022 - CTA HEAD W IVCON / [...] artery. The basilar artery is pat ent. telecom analyst are patent. SCAs are patent. No significant stenosis. No a neurysm. The major dural sinuses and draining veins are patent. Sales Process Manager (topogram) images: No additional findings. IMPRESSION: Diffuse [...] between software and imaging review: Lindsey bell. [place]: PSCPrateek Transcribe Date/Time: Jun 12 2022 9:56A Dictated by : PHILL WALLIS MD This examination was interpreted and the report review ed and electronically signed by: PHILL WALLIS MD on Jun 12 2022 10:17AM EST [id number] CTA NECK W IVCON on 06-12-2022 CTA NECK W IVCON * * *Final Report* * * Normal A [facility] DATE OF EXAM: Jun 12 2022 9:50AM Center [facility] 0024 - CTA NECK W IVCON / [...] artery. The basilar artery is pat ent. telecom analyst are patent. SCAs are patent. No significant stenosis. No a neurysm. The major dural sinuses and draining veins are patent. Sales Process Manager (topogram) images: No additional findings. IMPRESSION: Diffuse [...] between software and imaging review: Lindsey bell. [place]: NGOC Transcribe Date/Time: Jun 12 2022 9:56A Dictated by : PHILL WALLIS MD This examination was interpreted and the report review ed and electronically signed by: PHILL WALLIS MD on Jun 12 2022 10:17AM EST [id number] ECG COMPLETE on 06-12-2022 ECG COMPLETE Ventricular Rate : 112 BPM Normal A [facility] Atrial Rate : 112 BPM Center P-R Interval : 166 ms QRS Duration : 88 ms Q-T Interval : 358 ms QTC Calculation(Bazett) : 488 ms Calculated P [place] : 66 degrees Calculated R [place] : 46 degrees Calculated T [place] : 40 degrees SINUS TACHYCARDIA OTHERWISE NORMAL ECG NO PREVIOUS ECGS AVAILABLE Confirmed by MD WADE THOMAS ([id number]) on 06/19/2022 4: 41:58 PM NAME : EVER MCKEON PID : [id number] : 1970 Gender : Female Race : ORD : [id number] Procedure Date : Jun 12 2022 09:57:44 Edit Date : Jun 19 2022 16:42:02 Diagnosis: SINUS TACHYCARDIA OTHERWISE NORMAL ECG NO PREVIOUS ECGS AVAILABLE Confirmed by MD WADE THOMAS ([id number]) on 06/19/2022 4: 41:58 PM Test Reason : Stroke Location : 4 : [facility] EM Overread By : MD WADE THOMAS Edited By : MD WADE THOMAS Referred By : , Acquired by : SOSA DELANEY ED NOTE on 06-12-2022 ED NOTE HNO ID: [id number] [facility] Author: Palua Vital RN Service: Emergency Medicine Author Type: Registered Nurse Type: ED Notes Filed: 06/12/2022 11:21 AM Note Text: To bathroom with steady gait ED NOTE HNO ID: [id number] [facility] Author: Paula Vital RN Service: Emergency Medicine Author Type: Registered Nurse Type: ED Notes Filed: 06/12/2022 10:33 AM Note Text: Error in charting time @0833 actual time 0933 ED PROV NOTE on 06-12-2022 ED HNO ID: [id number] [facility] Author: Manish Huddleston MD General NOTE [...] emergency department. Blood glucose was 121. Patient's vision care associate came in later and states that patient [...] (more content not included)... ED HNO ID: [id number] Normal [place] [facility] Author: MD Lakhwinder Hein al NOTE [...] on 06-12-2022 Ethanol [Mass/Vol] mg/dL Normal <11 [facility] Comment on above: Order Comment: Specimen Type : BLOOD SPECIMEN [facility] Address: [address] [place] [address] Performed By: #### 3298-7, 4 024-6, 5643-2 #### [facility] CLIA [id number] 1 [place] [address] [place] HIGH SENSITIVITY TROPONIN T on 06-12-20 HIGH SENSITIVITY JEFFERY 8 ng/L Normal <12 [facility] Comment on above: Order Comment: Specimen Type : BLOOD SPECIMEN [facility] Address: [address] [place] [address] Result Comment: When assessi ng risk for [...] By: #### 3298-7, 4 024-6 5643-2 #### [facility] CLIA [id number] 1 [place] [address] [place] HISTORY PHYSICAL on 06-12-2022 HISTORY HNO ID: [id number] Normal [place] PHYSICAL Author: Neel juarez Service: [facility] Author Type: ? Center Type: [facility] Filed: 06/12/2022 6:54 PM Note Text: [...] Urban MD Date: 06/12/2022 Time: 8:48 PM [facility] Patient Name: Ever Mckeon Admission: Altered Mental Status Date:June 12, 2022 Subjective HPI Ms. Ever Mckeon is a 51 year old female with PMH: a lcohol dependence (Quit in 2021), cirrhosis of liver without ascites, IB S, depression with anxiety, Iron defiency anemia, obesity, insomnia, and Osteoarthritis Patient presented to [facility] 06/12/2022 for evaluation of altered mental status. Her last known well was 8:15 in the morning of 06/12. She was tearful and anxious on arrival and was confused for th e reason for being in the hospital. The patient's vision care associate reported t hat she has a history [...] matter hypo density in the left frontal chuadhari radiata age inderteminate. EKG showed n ormal [...] (more content not included)... HISTORY HNO ID: [id number] Normal [place] PHYSICAL Author: DO Omkar Good Service: [facility] Medicine santos Author Type: Resident Center [...] Urban MD Date: 06/12/2022 Time: 8:48 PM [facility] HANDP Patient Name: Ever Mckeon [...] Insomnia Prior ED visit for aphasia [at [facility] 08/23/2021]: The patient presented with difficulty [...] moderat e hiatal hernia She presented to [facility] 06/12/2022 for evaluation of stro ke-like symptoms. [...] adequate saturations on room air. The patient's outsole caser was present, a nd reports that in the last 6 months that she has been working with the [employer], the patient has not had any relapse [...] 06-12-20 Albumin [Mass/Vol] 3.8 g/dL Low 3.9-4.9 [facility] Comment on above: Order Comment: Specimen Type : BLOOD SPECIMEN [facility] Facility[facility] Address: [address] [place] [address] [place] [address] Performed By: #### 3298-7, 4 024-6, 5643-2 #### [facility] CLIA [id number] [address] S [facility] ALP [Catalytic activity/Vol] 224 U/L High 34-123 [facility] Comment on above: Order Comment: Specimen Type : BLOOD SPECIMEN [facility] Facility[facility] Address: [address] [place] [address] [place] [address] Performed By: #### 3298-7, 4 024-6, 5643-2 #### [facility] CLIA [id number] [address] S [facility] ALT With P-5'-P [Catalytic 32 U/L Normal 7-38 [facility] activity/Vol] Comment on above: Order Comment: Specimen Type : BLOOD SPECIMEN [facility] Address: [address] [place] [address] Performed By: #### 3298-7, 4 024-6, 5643-2 #### [facility] CLIA [id number] [address] [facility] AST With P-5'-P [Catalytic 49 U/L High 13-35 [facility] activity/Vol] Comment on above: Order Comment: Specimen Type : BLOOD SPECIMEN [facility] Address: [address] Performed By: #### 3298-7, 4 024-6, 5643-2 #### [facility] CLIA [id number] [address] S [place] Bilirubin [Mass/Vol] 0.5 mg/dL Normal 0.2-1.3 [facility] Comment on above: Order Comment: Specimen Type : BLOOD SPECIMEN [facility] Address: [address] [place] [place] [address] Performed By: #### 3298-7, 4 024-6, 5643-2 #### [facility] CLIA [id number] [address] Bilirubin.conjugated [Mass/Vol] mg/dL Normal <0.2 [facility] Comment on above: Order Comment: Specimen Type : BLOOD SPECIMEN [facility] Address: [address] [place] [address] Performed By: #### 3298-7, 4 024-6, 5643-2 #### [facility] CLIA [id number] [address] Protein [Mass/Vol] 6.8 g/dL Normal 6.3-8.0 [facility] Comment on above: Order Comment: Specimen Type : BLOOD SPECIMEN [facility] Address: [address] [place] [address] Performed By: #### 3298-7, 4 024-6, 5643-2 #### [facility] CLIA [id number] [address] PT panel Coag (PPP) on 06-12-2022 INR Coag (PPP) [Relative time] 1.1 {INR} Normal 0.9-1.3 [facility] Comment on above: Order Comment: Specimen Type : BLOOD SPECIMEN [facility] Address: [address] [place] [address] Result Comment: Vitamin K An tagonist (VKA) Therapeutic Range: INR 2 to 3 (Target INR of 2.5) Note: For patients treated w ith VKA drugs, such as warfarin, the [place] [employer] 2012 Guideline recommends a therapeutic INR range of 2 to 3 (target INR of 2.5). This recommendation includes high-risk patients with antiphospholipid syndrome with previous arterial or venous thromboembolism, current-generation mechanical or bioprosthetic aortic heart valve replacement. Note: Patients with pbx mechanic al aortic valve replacement and additional risk factors for thromboembolic events (atrial fibrillation, previous thromboembolism, LV dysfunction, hypercoagulable conditions) or an older generation mecha nical AVR (i.e., ball in-Cage) or any mechanical MVR should have a INR therapeutic range of 2.5 to 3.5 (target INR of 3). Xochitl ZEPEDA, et al. Chest 2012 , 141:7S-47S Denisse MCKEON et al. [facility] 20 , 70: 252-289 Performed By: #### 3298-7, 4 024-6, 5643-2 #### [facility] CLIA [id number] 1 [place] [address] [place] PT Coag (PPP) [Time] 11.6 s Normal 9.7-13.0 [facility] Comment on above: Order Comment: Specimen Type : BLOOD SPECIMEN [facility] Facility[facility] Address: [address] [place] [address] Performed By: #### 3298-7, 4 024-6, 5643-2 #### [facility] CLIA [id number] 1 [place] [address] [place] SARS-CoV-2 RNA Resp Ql SAADIA+probe on SARS-CoV-2 (COVID-19) SARS-CoV-2 (Agent of Normal Not Detecte d [facility] RNA SAADIA+probe Ql (Resp) COVID-19) Not Detected [facility] by RT-PCR or equivalent method. Comment on above: Order Comment: Specimen Type : SWAB OF INTERNAL NOSEOrdering Facility: [facility] Address: [address] [place] [phone] Result Comment: This test prado s been authorized by FDA under an Emergency Use Authorization (EUA). Performed By: #### 67222-0 # ###[facility] LABORATORYCLIA [id number] [facility] [facility] [place] Salicylates SerPl-mCnc on 06-12-2022 Salicylates [Mass/Vol] mg/dL Low 3.0-30.0 [facility] Comment on above: Order Comment: Specimen Type : BLOOD SPECIMEN [facility]ing Facility: [facility] Address: [address] [place] [address] Result Comment: The therapeu tic range varies and has been reported to be 3.0 to 10.0 mg/dL for anti pyretic/analgesic conditions and 15.0 to 30.0 mg/dL for anti inflammatory/rheumatic fever conditions. Ranges published by the inst rument attending urologist. Reference ranges and high/lo w indicator flags are provided as general guidelines only. The treating physician must determine appropriate target levels/dosing based on the specific clinical situation. Performed By: #### 3298-7, 4 024-6, 5643-2 #### [facility] CLIA [id number] [address] [place] [address] [place] TOX SCREEN ROUT UR on 06-12-2022 Amphetamines Confirm (U) Negative Normal Negative Akr [facility] [Mass/Vol] Center Comment on above: Order Comment: Specimen Type : URINE SPECIMEN [facility] Facility[facility] Address: [address] [place] [address] Result Comment: Cutoff thres hold at 1000 ng/mL. Performed By: #### UTOX2 ### # [facility] CLIA [id number] [address] [place] S OF [place] BARBITURATES, URINE Negative Normal Negative [facility] Comment on above: Order Comment: Specimen Type : URINE SPECIMEN [facility] Facility: [facility] Address: [address] [place], [place] [id number] Result Comment: Cutoff thres hold at 200 ng/mL. Performed By: #### UTOX2 ### # [facility] CLIA [id number] [address] [facility] BENZODIAZEPINES, UR Negative Normal Negative [facility] Comment on above: Order Comment: Specimen Type : URINE SPECIMEN [facility] Facility: [facility] Address: [address] [address] Result Comment: Cutoff thres hold at 200 ng/mL. Performed By: #### UTOX2 ### # [facility] CLIA [id number] [address] [facility] CANNABINOIDS,URINE Negative Normal Negative [facility] Comment on above: Order Comment: Specimen Type : URINE SPECIMEN [facility]ing Facility[facility] Address: [address] [place] [address] Result Comment: Cutoff thres hold at 50 ng/mL. Performed By: #### UTOX2 ### # [facility] CLIA [id number] [address] Cocaine Ql (U) Negative Normal Negative [facility] Comment on above: Order Comment: Specimen Type : URINE SPECIMEN [facility] Facility[facility] Address: [address] [place] [address] Result Comment: Cutoff thres hold at 300 ng/mL. Performed By: #### UTOX2 ### # [facility] CLIA [id number] [address] Ethanol (U) [Mass/Vol] <11 Normal <11 [facility] Comment on above: Order Comment: Specimen Type : URINE SPECIMEN [facility] Facility[facility] Address: [address] [address] Performed By: #### UTOX2 ### # [facility] CLIA [id number] [address] Opiates Screen Ql (U) Negative Normal Negative [facility] Comment on above: Order Comment: Specimen Type : URINE SPECIMEN [facility] Facility[facility] Address: [address] [address] Result Comment: Cutoff thres hold at 300 ng/mL. Performed By: #### UTOX2 ### # [facility] CLIA [id number] [address] oxyCODONE cutoff Screen (U) Negative Normal Negative [facility] [Mass/Vol] Comment on above: Order Comment: Specimen Type : URINE SPECIMEN [facility] Facility[facility] Address: [address] [place] [address] Result Comment: Cutoff thres hold at 100 ng/mL. Performed By: #### UTOX2 ### # [facility] CLIA [id number] [address] Phencyclidine Ql (U) Negative Normal Negative [facility] Comment on above: Order Comment: Specimen Type : URINE SPECIMEN [facility] Address: [address] [place] [address] Result Comment: Cutoff thres hold at 25 ng/mL. Performed By: #### UTOX2 ### # [facility] CLIA [id number] [address] Urinalysis complete panel (U) on 2021 Bilirubin Ql (U) Negative Normal Negative [facility] Comment on above: Order Comment: Specimen Type : BLOOD SPECIMEN [facility] Facility[facility] Address: [address] [place] [address] Performed By: #### 3298-7, 4 024-6, 5643-2 #### [facility] CLIA [id number] [address] Clarity (Unsp spec) Clear Normal Clear [facility] Comment on above: Order Comment: Specimen Type : BLOOD SPECIMEN [facility] Address: [address] [place] [address] Performed By: #### 3298-7, 4 024-6, 5643-2 #### [facility] CLIA [id number] [address] Color (U) Light Yellow Normal yellow [facility] Comment on above: Order Comment: Specimen Type : BLOOD SPECIMEN [facility] Address: [address] [place] [address] Performed By: #### 3298-7, 4 024-6, 5643-2 #### [facility] CLIA [id number] [address] Glucose Test strip (U) Negative Normal Negative [facility] [Mass/Vol] Comment on above: Order Comment: Specimen Type : BLOOD SPECIMEN [facility] Address: [address] [place] [address] Performed By: #### 3298-7, 4 024-6, 5643-2 #### [facility] CLIA [id number] [address] Hemoglobin Ql (U) Negative Normal Negative [facility] Comment on above: Order Comment: Specimen Type : BLOOD SPECIMEN [facility] Address: [address] [place] [address] Performed By: #### 3298-7, 4 024-6, 5643-2 #### [facility] CLIA [id number] [address] Ketones Ql (U) Negative Normal Negative [facility] Comment on above: Order Comment: Specimen Type : BLOOD SPECIMEN [facility] Address: [address] [place] [address] Performed By: #### 3298-7, 4 024-6, 5643-2 #### [facility] CLIA [id number] [address] Leukocyte esterase Test strip Negative Normal Negative [facility] Ql (U) Comment on above: Order Comment: Specimen Type : BLOOD SPECIMEN [facility] Facility[facility] Address: [address], [place] [address] Performed By: #### 3298-7, 4 024-6, 5643-2 #### [facility] CLIA [id number] [address] OF [place] Nitrite Ql (U) 2+ Abnormal Negative [facility] Comment on above: Order Comment: Specimen Type : BLOOD SPECIMEN [facility] Facility[facility] Address: [address] [place] [address] [address] [place] [address] Performed By: #### 3298-7, 4 024-6, 5643-2 #### [facility] CLIA [id number] [address] OF [place] pH (U) 7.0 [pH] Normal 5.0-8.0 [facility] Comment on above: Order Comment: Specimen Type : BLOOD SPECIMEN [facility] Address: [address] [place] [address] Performed By: #### 3298-7, 4 024-6, 5643-2 #### [facility] CLIA [id number] [address] [place] [address] S [facility] Protein (U) [Mass/Vol] Negative Normal Negative [facility] Comment on above: Order Comment: Specimen Type : BLOOD SPECIMEN [facility] Address: [address] [place] [address] Performed By: #### 3298-7, 4 024-6, 5643-2 #### [facility] CLIA [id number] [address] [facility] RBC LM.HPF (Urine sed) 3-5 /HPF Abnormal 0-3 /HPF [facility] [#/Area] Comment on above: Order Comment: Specimen Type : BLOOD SPECIMEN [facility] Address: [address] [place] [address] Performed By: #### 3298-7, 4 024-6, 5643-2 #### [facility] CLIA [id number] [address] [place] [address] S [facility] Specific gravity (U) [Rel 1.030 Normal 1.005-1.030 [facility] density] Comment on above: Order Comment: Specimen Type : BLOOD SPECIMEN [facility] Address: [address] Performed By: #### 3298-7, 4 024-6, 5643-2 #### [facility] CLIA [id number] [address] Urobilinogen Ql (U) Normal Normal Negative [facility] Comment on above: Order Comment: Specimen Type : BLOOD SPECIMEN [facility] Address: [facility] [address] [place] [address] Performed By: #### 3298-7, 4 024-6, 5643-2 #### [facility] CLIA [id number] [address] [place] [address] WBC LM.HPF (Urine sed) [#/Area] 0-5 /HPF Normal 0-5 /HPF [facility] Comment on above: Order Comment: Specimen Type : BLOOD SPECIMEN [facility] Address: [facility] [address] [address] Performed By: #### 3298-7, 4 024-6, 5643-2 #### [facility] CLIA [id number] [address] [place] [address] aPTT PPP on 06-12-2022 aPTT Coag (PPP) [Time] 26.2 s Normal 23.0-32.4 [facility] Comment on above: Order Comment: Specimen Type : BLOOD SPECIMEN [facility] Address: [facility] [address] [place] [address] Performed By: #### 3298-7, 4 024-6, 5643-2 #### [facility] CLIA [id number] [address] [place] [address] ED PROV NOTE on 05-06-2022 ED PROV NOTE HNO ID: [id number] Normal [facility] Author: Bharat Lane PA-C Center Service: Emergency Medicine Author Type: Physician Corpsman Type: ED Provider Notes Filed: 05/07/2022 12:20 [...] and crackers. Patient will be discharged ho al. Will prescribe Zofran if she feels any [...] all questions. This note was generated using [employer] voice dictation. All resonable efforts were made to correct dictation errors but they still may occur given the nature of the software. Clinical Impressions (more content not included)... RPR on 10-08-2021 Reagin Ab RPR Ql (S) REAC Abnormal Non Reactive [facility] Comment on above: Performed By: #### RPR, RPRQ NT, SYPHTX #### [facility] [address] [place] [phone] RPR Quant Titer on 10-08-2021 RPR Quant Titer D2048 Normal [facility] Comment on above: Performed By: #### RPR, RPRQ NT, SYPHTX #### [facility] [address] [place] [phone] Syphilis Ttl w/Reflx on 10-08-2021 Syphilis Interp SYPH2 Normal [facility] Comment on above: Performed By: #### RPR, RPRQ NT, SYPHTX #### [facility] [address] [place] [phone] Syphilis Ttl w/Reflx on 10-07-2021 Syphilis Screen Rslt REAC Abnormal Non Reactive [facility] Comment on above: Performed By: #### RPR, RPRQ NT, SYPHTX #### [facility] [address] [place] [phone] T. pallidum Ab IgG on 10-07-2021 T. pallidum IgG Qual Abnormal Negative [facility] Comment on above: Result Comment: Incorrect te st ordered. Correct order placed. Results to follow. SEE [id number] CHANGED PER CLIENT SERVICES CALL WITH [employer] [phone] Account Credited T. pallidum, IgG Normal [facility] Comment on above: Result Comment: Incorrect te st ordered. Correct order placed. Results to follow. SEE [id number] CHANGED PER CLIENT SERVICES CALL WITH [employer] CR [phone] Account Credited GC/Chlamydia Amplif on 12-01-2021 Chlamydia Amplif Normal [facility] Comment on above: Result [...] consistent with infection. GC Amplification NGPOS Normal [facility] RPR on 09-24-2021 Reagin Ab RPR Ql (S) Reactive Abnormal Non Reactive [facility] Comment on above: Performed By: #### RPR, RPRQ NT #### [facility] [address] [address] RPR Quant Titer on 09-24-2021 RPR Quant Titer D1024 Normal [facility] in Reference Lab Comment on above: Performed By: #### RPR, RPRQ NT #### [facility] [address] [address] Trich vaginalis Ampl on 09-24-2021 Trichomonas RNA Normal [facility] Comment on above: Result Comment: Negative for This test was developed and its performance characteristics determined by [facility] [place] ([facility]). It has not been cleared or approved by the FDA. [facility] is regul ated under CLIA as qualified to perform high complexity testing. This test is used for clinical purposes. It should not be regarded as investigational or for research. Trichomonas This test was developed and its performance characteristics determined by [facility]'s [facility] [place] ([facility]). It has not been cleared or approved by the FDA. [facility] is regul ated under CLIA as qualified to perform high complexity testing. This test is used for clinical purposes. It should not be regarded as investigational or for research. vaginalis by This test was developed and its performance characteristics determined by [facility] [place] ([facility]). It has not been cleared or approved by the FDA. [facility] is regul ated under CLIA as qualified to perform high complexity testing. This test is used for clinical purposes. It should not be regarded as investigational or for research. amplification This test was developed and its performance characteristics determined by [facility] [place] ([facility]). It has not been cleared or approved by the FDA. [facility] is regul ated under CLIA as qualified to perform high complexity testing. This test is used for clinical purposes. It should not be regarded as investigational or for research. GC/Chlamydia Amplif on 09-23-2021 GC/Chlam Amp Source Vaginal Normal [facility] Trich vaginalis Ampl on 09-23-2021 Trich vag Amp Source Urine Normal [facility] Basic Metabolic Panel on 08-23-2021 Anion gap [Moles/Vol] 7 mmol/L Normal 3-13 [facility] Comment on above: Performed By: #### BMP3, HEM DF, TROPN #### [facility] [address] [place] [address] Calcium [Mass/Vol] 9.3 mg/dL Normal 8.4-10.4 [facility] Comment on above: Performed By: #### BMP3, HEM DF, TROPN #### [facility] [address] [place] [address] CO2 [Moles/Vol] 23 mmol/L Normal -30 [facility] Comment on above: Performed By: #### BMP3, HEM DF, TROPN #### [facility] [address] [place] [address] Glucose [Mass/Vol] 121 mg/dL High 70-100 [facility] Comment on above: Performed By: #### BMP3, HEM DF, TROPN #### [facility] [address] [place] [address] Urea nitrogen [Mass/Vol] 21 mg/dL High 9-20 [facility] Comment on above: Performed By: #### BMP3, HEM DF, TROPN #### [facility] [address] [place] [address] Creatinine [Mass/Vol] 0.69 mg/dL Normal 0.52-1.25 [facility] Comment on above: Performed By: #### BMP3, HEM DF, TROPN #### [facility] [address] [place] [address] eGFR OTHER > 90.0 Normal >60 [facility] stem Comment on above: Result Comment: KDIGO [...] By: #### BMP3, HEM DF, TROPN #### [facility] [address] [place] [address] GFR/1.73 sq M.predicted among blacks mL/min/{1.73_m2} Normal >60 [facility] MDRD (S/P/Bld) [Vol rate/Area] Comment on above: Performed By: #### BMP3, HEM DF, TROPN #### [facility] [address] [place] [address] Potassium [Moles/Vol] 3.9 mmol/L Normal 3.5-5.1 [facility] Comment on above: Performed By: #### BMP3, HEM DF, TROPN #### [facility] [address] [place] [address] Sodium [Moles/Vol] 137 mmol/L Normal 135-145 [facility] Comment on above: Performed By: #### BMP3, HEM DF, TROPN #### [facility] [address] [place] [address] Chloride [Moles/Vol] 107 mmol/L Normal 98-107 [facility] Comment on above: Performed By: #### BMP3, HEM DF, TROPN #### [facility] [address] [place] [address] Basic Metabolic Panel Ordered By: Ace Diamond on 08-23-2021 Anion gap [Moles/Vol] 7 mmol/L 3 - 13 mmol/L [facility] Work Phone: Calcium [Mass/Vol] 9.3 mg/dL 8.4 - 10.4 mg/dL [facility] Work Phone: Chloride [Moles/Vol] 107 mmol/L 98 - 107 mmol/L [facility] Work Phone: CO2 [Moles/Vol] 23 mmol/L 22 - 30 mmol/L [facility] Work Phone: [phone] Creatinine [Mass/Vol] 0.69 mg/dL 0.52 - 1.25 mg/dL [facility] Work Phone: EGFR IF NonAfrican >90.0 >60 mL/min [facility] [employer] Work Phone: [phone] Comment on above: KDIGO guidelines provide the [...] 70 - 100 [facility] mg/dL Work Phone: [phone] Interpretation and Abnormal [facility] review of laboratory Work Ph one: results Potassium [Moles/Vol] 3.9 mmol/L 3.5 - 5.1 [facility] mmol/L Work Phone: [phone] Sodium [Moles/Vol] 137 mmol/L 135 - 145 [facility] mmol/L Work Phone: [phone] Urea nitrogen (BldV) 21 mg/dL High 9 - 20 mg/dL [facility] [Mass/Vol] Work Phone: [phone] Test Performed by [facility] [employer], [address]: [place] [address] [facility] Work Phone: [phone] CBC WITH AUTO DIFFERENTIAL Ordered By: Rodrigo Diamond on 08-23-2021 Absolute Baso # 0.0 10*3/uL 0.0 - 0.2 [facility] 10*3/uL Work Phone: [phone] Absolute Neut # 4.5 10*3/uL 1.8 - 7.[address] [facility] 10*3/uL Work Phone: [phone] Basophils/100 WBC (Bld) 0.6 % 0.0 - 2.0 % [facility] A Work Phone: [phone] Eosinophils (Bld) [...] [facility] 10*3/uL Work Phone: Test Performed by [email or web address] Work Phone: System, [address] [place] [address] [employer] Work Phone: CR Chest Portable on 08-23-2021 CR Chest Portable Patient Name: EVER MCKEON [facility] Diagnostic Radiology ACCESSION EXAM DATE/TIME PROCEDURE ORDERING PROVIDER [phone] 08/23/2021 21:28 EDT CR Chest Portable SANDRA CAVAZOS CHARLES G CPT code 24417 Reason For Exam (CR Chest Portable) sob [...] Abs Baso Cnt 0.0 10*3/uL Normal 0.0-0.2 [facility] stem Comment on above: Performed By: #### BMP3, HEM DF, TROPN #### [address] [place] [address] Abs Neutrophile Cnt 4.5 10*3/uL Normal 1.8-7.0 [facility] Comment on above: Performed By: #### BMP3, HEM DF, TROPN #### [address] [place] [address] Basophils/100 WBC (Bld) 0.6 % Normal 0.0-2.0 [facility] Comment on above: Performed By: #### BMP3, HEM DF, TROPN #### [address] [address] Eosinophils (Bld) [#/Vol] 0.0 10*3/uL Normal 0.0-0.5 [facility] Comment on above: Performed By: #### BMP3, HEM DF, TROPN #### [address] [address] Eosinophils/100 WBC (Bld) 0.4 % Low 1.0-6.0 [facility] Comment on above: Performed By: #### BMP3, HEM DF, TROPN #### [address] [address] Erythrocyte distribution width (RBC) 14.6 % High 11.5 -14.5 [facility] [Ratio] Comment on above: Performed By: #### BMP3, HEM DF, TROPN #### [address] [address] Granulocytes/100 WBC (Bld) 59.9 % Normal 40.0-80.0 [facility] Comment on above: Performed By: #### BMP3, HEM DF, TROPN #### [address] [address] Hematocrit (Bld) [Volume fraction] 35.8 % Normal 35.0-4 7.0 [facility] Comment on above: Performed By: #### BMP3, HEM DF, TROPN #### [address] [place] [address] Hemoglobin (Bld) [Mass/Vol] 12.0 g/dL Normal 11.7-16.0 [facility] Comment on above: Performed By: #### BMP3, HEM DF, TROPN #### [address] [place] [address] Lymphocytes (Bld) [#/Vol] 1.8 10*3/uL Normal 1.0-4.3 [facility] Comment on above: Performed By: #### BMP3, HEM DF, TROPN #### [address] [address] [place] [address] Lymphocytes/100 WBC (Bld) 24.1 % Normal 20.0-40.0 [facility] Comment on above: Performed By: #### BMP3, HEM DF, TROPN #### [address] [address] MCH (RBC) [Entitic mass] 30.6 pg Normal 26.0-34.0 [facility] Comment on above: Performed By: #### BMP3, HEM DF, TROPN #### [address] [address] [place] [address] MCHC 33.7 % Normal 32.0-36.0 [facility] stem Comment on above: Performed By: #### BMP3, HEM DF, TROPN #### [address] [place] [address] MCV (RBC) [Entitic vol] 91.0 fL Normal 79.0-98.0 [facility] Comment on above: Performed By: #### BMP3, HEM DF, TROPN #### [address] [place] [address] Monocytes (Bld) [#/Vol] 1.1 10*3/uL High 0.0-0.8 [facility] Comment on above: Performed By: #### BMP3, HEM DF, TROPN #### [address] [address] Monocytes/100 WBC (Bld) 15.0 % High 2.0-10.0 [facility] Comment on above: Performed By: #### BMP3, HEM DF, TROPN #### [address] [address] [place] [address] Platelet mean volume (Bld) [Entitic vol] 8.4 fL Normal 7.4-10.4 [facility] Comment on above: Performed By: #### BMP3, HEM DF, TROPN #### [address] [address] Platelets (Bld) [#/Vol] 301 10*3/uL Normal 140-440 [facility] Comment on above: Performed By: #### BMP3, HEM DF, TROPN #### [address] [address] RBC (Bld) [#/Vol] 3.93 10*6/uL Normal 3.80-5.20 [facility] Comment on above: Performed By: #### BMP3, HEM DF, TROPN #### [address] [address] WBC (Bld) [#/Vol] 7.5 10*3/uL Normal 3.6-10.7 [facility] Comment on above: Performed By: #### BMP3, HEM DF, TROPN #### [address] [address] Troponin Ordered By: Rodrigo Diamond on Troponin I.cardiac [Mass/Vol] ng/mL 0.000 - 0.0 34 ng/mL [facility] Work Phone: Comment on above: . Test Performed by [facility], [address] [place] [address] Work Phone: [facility] Work Phone: Troponin I on 08-23-2021 Troponin I.cardiac [Mass/Vol] ng/mL Normal 0.000-0.034 [facility] Comment on above: Result Comment: . Performed By: #### BMP3, HEM DF, TROPN #### [facility] [address] [place] [address] XR CHEST PORTABLE Ordered By: Rodrigo zamudio on 08-23-2021 Patient Name: EVER MCKEON [id number] Diagnostic Radiology ACCESSION EXAM Work Phone: DATE/TIME PROCEDURE ORDERING PROVIDER [phone] 08/23/2021 21:28 EDT CR Chest Portable SANDRA DIAMOND CHARLES G CPT code 60257 Reason For Exam (CR Chest Portable) sob [...] Transcribed Date and Time: 08/23/2021 9:36 Ricky, [facility] Incoming Radiolog y Results From [employer] - 08/23/2021 9:39 PM EDT [facility] [facility] Patient Name: EVER MCKEON Work Phone: Diagnostic Radiology ACCESSION EXAM DATE/TIME PROCEDURE ORDERING PROVIDER [phone] 08/23/2021 21:28 EDT CR Chest Portable SANDRA CAVAZOS CHARLES G CPT code 17893 Reason For Exam (CR Chest Portable) sob [...] Dictated: 08/23/2021 9:36 pm Dictating Physician: MD ELROY JEFFREY Signed Date and Time: 08/23/2021 9:38 pm Signed by: MD LEROY JEFFREY Transcribed Date and Time: 08/23/2021 9:36 [facility] Work Phone: MRI ABDOMEN WO CONTRAST on 08-08-2020 Patient Name: EVER MCKEON FIN: [place], [place] [id number] ---MRI--- Exam Date/Time 08/08/2020 12:11 :55 EDT Exam MRI Abdomen w/o Contrast Ordering Physician ROLAND DENISE MAUREEN CLAIRE Accession Number [id number] CPT4 Codes 79967 () Reason For Exam bili akbar obstruction [...] Results From Radnet - 3:02 PM EDT [place] Patient Name: EVER MCKEON ---MRI--- Exam Date/Time 08/08/2020 12:11:55 EDT Exam MRI Abdomen w/o Contrast Ordering Physician ROLAND DENISE MAUREEN CLAIRE Accession Number [id number] CPT4 Codes 11331 () Reason For Exam biliary obstruction Report [...] n 05-22-2020 Anion gap [Moles/Vol] 7 mmol/L [place] Calcium [Mass/Vol] 8.2 mg/dL Low 8.4 - 10.4 mg/dL [place] Chloride [Moles/Vol] 100 mmol/L 98 - 107 mmol/L [place], [place] CO2 [Moles/Vol] 24 mmol/L 22 - 30 mmol/L [place], [place] Creatinine [Mass/Vol] 0.48 mg/dL Low 0.52 - 1.25 mg/dL [place], [place] EGFR IF NonAfrican Egyptian >90.0 >60 mL/min [place], [place] Comment on above: KDIGO guidelines provide [...] (GFR) from serum creatinine in children is [facility] Bedside Kumar equation. It is less accurate in patie nts with extremes of muscle mass, restriction of dietary protein, ingestion of creatine, extra-renal metabolism of cr eatinine, or treatment with medications that affect sofía l tubular creatinine secretion. GFR/1.73 sq M predicted mL/min/{1.73_m2} >60 mL/min [facility]- among blacks MDRD [place] (S/P/Bld) [Vol rate/Area] Glucose [Mass/Vol] 74 mg/dL 70 - 100 mg/dL [place], [place] Interpretation and Abnormal [facility]- review of laboratory [place], [place] results Potassium [Moles/Vol] 3.6 mmol/L 3.5 - 5.1 [facility]- mmol/L [place] Sodium [Moles/Vol] 132 mmol/L Low 135 - 145 [facility]- mmol/L [place] Urea nitrogen [Mass/Vol] 9 mg/dL 7 - 20 mg/dL [place], [place] Test Performed by [facility], [address] [place] [address] CBC Auto Differential on 05-22-2020 Absolute Baso # 0.1 10*3/uL 0 - 0.2 10*3/uL [place] Absolute Neut # 4.2 10*3/uL 1.8 - 7 10*3/uL [place] Basophils/100 WBC (Bld) 1.1 % 0 - 2 % [facility], [place] Eosinophils (Bld) [#/Vol] 0.2 10*3/uL 0 - 0.5 10*3/uL [facility], [place] Eosinophils/100 WBC (Bld) 1.9 % 1 - 6 % [facility], [place] Erythrocyte distribution 15.6 % High 11.5 - 14.5 % [facility], width (RBC) [Ratio] [place] Granulocytes/100 WBC 53.8 % 40 - 80 % [facility], (Bld) [place] Hematocrit (Bld) [Volume 30.8 % Low 35 - 47 % [facility], fraction] [place] Hemoglobin (Bld) 10.4 g/dL Low 11.7 - 16 g/dL [facility], [Mass/Vol] [place] Interpretation and review Abnormal [facility], of laboratory results [place] Lymphocytes (Bld) [#/Vol] 2.1 10*3/uL 1 - 4.3 10*3/uL [facility], [place] Lymphocytes/100 WBC (Bld) 26.7 % 20 - 40 % [facility], [place] MCH (RBC) [Entitic mass] 30.4 pg 26 - 34 pg [facility], [place] MCHC (RBC) [Mass/Vol] 33.7 % 32 - 36 % [facility], [place] MCV (RBC) [Entitic vol] 90.1 fL 79 - 98 fL [facility], [place] Monocytes (Bld) [#/Vol] 1.3 10*3/uL High 0 - 0.8 10*3/uL [facility], [place] Monocytes/100 WBC (Bld) 16.5 % High 2 - 10 % [facility], [place] Platelet mean volume 7.4 fL 7.4 - 10.4 fL [facility], (Bld) [Entitic vol] [place] Platelets (Bld) [#/Vol] 174 10*3/uL 140 - 440 10*3/uL [facility], [place] RBC (Bld) [#/Vol] 3.42 10*6/uL Low 3.8 - 5.2 10*6/uL [place] WBC (Bld) [#/Vol] 7.8 10*3/uL 3.6 - 10.7 10*3/uL [place], [place] Test Performed by [facility], [facility], [place] [address] [place] [address] Cytology, non gyne on 05-22-2020 Cytology report Cyto SEE BELOW [place], [place] stain.thin prep Doc (Cvx/Vag) 1 [facility] [id number] [place] DEPARTMENT OF PATHOLOGY AND [facility] LABORATORY MEDICINE [address] [place] [address] FINAL MEDICAL CYTOLOGY REPORT ____ NAME: EVER MCKEON Kiel : 1970 49 Y F BILLING NO.: [id number] LOCATION: [address] [place] [address] PROCEDURE 05/20/2020 A DATE: PHYSICIAN: LUZ MARIA GARCIA MD RECEIVED DATE: 05/21/2020 ATTENDING: WINSTON LFANNERY DO REPORT DATE: 05/22/2020 COPIES TO: SOCO [...] characteristics determined by the clinical laboratories of [facility]. They have not been cleared by [...] negativity on decalcified specimens. Case reviewed at [place] [address] [place] [address]. DEPARTMENT OF PATHOLOGY AND LABORATORY MEDICINE [place], [place] [id number] EKG 12 Lead on 05-22-2020 Ricky, [facility] Cardiolo gy Results From Merge/Epiphany - 05/22/2020 7:[address] [facility]- [place] D[place] Test Date: 2020-05-21 Pat Name: Ever Whitleyrows Department: 1A5W Room: 1539 Gender: F Neurosurgeon: JONNY FLANAGANB: 1970 Requested By: Sergio RAZA Order Number: [id number] Reading MD: Cinthya Li Measurements Intervals [place] Rate: 84 P: 76 MT: 170 QRS: 48 QRSD: 100 T: -20 QT: 460 QTc: 544 Interpretive Statements Sinus rhythm Borderline T abnormalities, inferior leads Prolonged QT interval Compared to ECG 05/20/2020 12:22:13 No significant changes Electronically Signed On 05-22-2020 7:04:27 EDT by Trista sal johnson [facility] Test Date: 2020-05-21 [facility] Room: 1539 Gen jose: F Neurosurgeon: JONNY FLANAGANB: 1970 Requested By: Sergio OTTO DO Order Number: [id number] Reading : Cinthya Li Measurements Intervals [place] Rate: 84 P: 76 MT: 170 QR S: 48 QRSD: 100 T: -20 QT: 460 QTc: 544 Interpretive Statements Sinus rhythm Borderline T abnormalities, inferior leads Prolonged QT interval Compared to ECG 05/20/2020 12:22:13 No significant changes Nirav asencio Signed On 05-22-2020 7:04:27 EDT by Cinthya Yaakovjohnson Troponin on 05-22-2020 Troponin I.cardiac [Mass/Vol] ng/mL 0 - 0.034 n g/mL [place], [place] Comment on above: . [facility], [address] [place] [address] US PARACENTESIS INITIAL on 05-22-2020 Ricky, [facility] Incoming Radiology Results From Radnet - 1:45 PM EDT [place] Patient Name: EVER MCKEON ---Ultrasound--- Exam Date/Time 05/20/2020 16:23:27 EDT Exam US Paracentesis Initial Ordering Physician MD RADHA, [facility] Accession Number [id number] CPT4 Codes 72861 () Reason For Exam perihepatic fluid collection [...] 05/22/2020 1:41 Patient Name: EVER MCKEON FIN: [place], [place] [id number] ---Ultrasound--- Exam Date/Time 0 16:23:27 EDT Exam US Paracentesis Initial Ordering Physician MD RADHA, [facility] Accession Number [id number] CPT4 Codes 02252 () Reason For Exam perihepatic fluid collection Report ULTRASOUND GUIDED PARACENTESIS: Indication: Ascites. Procedure: Followin g discussion with the patient regarding risks, benefits and alternatives, the skin was sterilely prepared and loca l anesthesia was applied. Ultrasound shows small perihep atic fluid collection with internal septations, suggesting loculations. A [employer] catheter was advanced under ultras ound guidance [...] Lab Test on 05-21-2020 Sodium [Moles/Vol] Accepted [place], [place] Comment on above: Specimen available & accepta ble for analysis. Test Performed by [facility], [facility] [address] [place] [address] Albumin, Fluid on 05-21-2020 Albumin, Fluid 1.5 g/dL No Range [place], [place] Basic Metabolic Panel w/ Reflex to MG on 05-21-2020 Anion gap [Moles/Vol] 7 mmol/L [place] Calcium [Mass/Vol] 8.2 mg/dL Low 8.4 - 10.4 mg/dL [place] Chloride [Moles/Vol] 101 mmol/L 98 - 107 mmol/L [place], [place] CO2 [Moles/Vol] 25 mmol/L 22 - 30 mmol/L [facility], [place] Creatinine [Mass/Vol] 0.47 mg/dL Low 0.52 - 1.25 mg/dL [place], [place] EGFR IF NonAfrican Egyptian >90.0 >60 mL/min [place] Comment on above: KDIGO guidelines provide [...] (GFR) from serum creatinine in children is [facility] Bedside Kumar equation. It is less accurate in patie nts with extremes of muscle mass, restriction of dietary protein, ingestion of creatine, extra-renal metabolism of cr eatinine, or treatment with medications that affect sofía l tubular creatinine secretion. GFR/1.73 sq M predicted mL/min/{1.73_m2} >60 mL/min [facility]- among blacks MDRD [place] (S/P/Bld) [Vol rate/Area] Glucose [Mass/Vol] 79 mg/dL 70 - 100 mg/dL [place], [place] Interpretation and Abnormal [facility]- review of laboratory [place], [place] results Potassium [Moles/Vol] 3.4 mmol/L Low 3.5 - 5.1 [facility]- mmol/L [place] Sodium [Moles/Vol] 133 mmol/L Low 135 - 145 [facility]- mmol/L [place] Urea nitrogen [Mass/Vol] 8 mg/dL 7 - 20 mg/dL [place], [place] Test Performed by [facility], [address], [place] [address] Body Fluid Cell Count with Differential on 05-21-2020 Nucl Cell, Fluid 269 {cells}/uL [place], [place] Comment on above: clumped cells founded, inter pret with caution RED BLOOD CELLS, BODY FLUID 620 {RBC}/uL [place], [place] Sodium [Moles/Vol] Ascites [place], [place] Test Performed by [place] System, [facility] [place] [address] CBC Auto Differential on 05-21-2020 Erythrocyte distribution 15.6 % High 11.5 - 14.5 % [place] width (RBC) [Ratio] Hematocrit (Bld) [Volume 31.1 % Low 35 - 47 % [place], [place] fraction] Hemoglobin (Bld) [Mass/Vol] 10.6 g/dL Low 11.7 - 16 g/d L [place], [place] Interpretation and review of Abnormal [place] laboratory results MCH (RBC) [Entitic mass] 30.5 pg 26 - 34 pg [place], [place] MCHC (RBC) [Mass/Vol] 34.3 % 32 - 36 % [place] MCV (RBC) [Entitic vol] 88.9 fL 79 - 98 fL [place], [place] Platelet mean volume (Bld) 7.3 fL Low 7.4 - 10.4 fL [place] [Entitic vol] Platelets (Bld) [#/Vol] 177 10*3/uL 140 - 440 10*3/uL [place] RBC (Bld) [#/Vol] 3.49 10*6/uL Low 3.8 - 5.2 10*6/uL [place] WBC (Bld) [#/Vol] 8.2 10*3/uL 3.6 - 10.7 10*3/uL [place], [place] Culture, Anaerobic on 05-21-2020 Anaerobic Culture No growth of anaerobes at 5 days. [place], [place] Test Performed by [facility], [address] [place], [place] [address] Differential, Body Fluid on 05-21-2020 Eosinophils/100 WBC (Bld) 3 % [place], [place] Lymphocytes/100 WBC (Bld) 10 % [facility], [place] Macrophage count 1 % [facility], [place] Monocytes/100 WBC (Bld) 5 % [facility], [place] Neutrophils/100 WBC (Bld) 81 % [facility], [place] Sodium [Moles/Vol] 100 mmol/L [facility], [place] EKG 12 Lead on 05-21-2020 [facility] Test Date: 2020-05-20 Pat Name: [facility] MONICA Mckeon Department: 1A5W Room: [address] [place] [address] er: F Neurosurgeon: JOSE CRUZ : 1970 Requested By: PAU GARCIA Order Number: [id number] Reading MD: Lela Grajeda Measurements Intervals [place] Rate: 82 P: 52 MT: 181 QRS: 42 QRSD: 83 T: -15 QT: 443 QTc: 518 Interpretive Statements Sinus rhythm Low voltage, precordial leads Borderline T abnormalities, diffuse leads Prolonged QT interval Electronically Signed On 05-21-2020 17:07:18 E DT by [facility] Results From Merge/Epiphany - 05/21/2020 5:08 PM EDT [facility], [place] Test Date: 2020-05-20 Pat Name: Ever Mckeon Department: 1A5W Room: [facility] Gender: F Neurosurgeon: JOSE CRUZ : 1970 Requested By: LUZ MARIA GARCIA Order Number: [id number] Reading MD: Lela Grajeda Measurements Intervals [place] Rate: 82 P: 52 MT: 181 QRS: 42 QRSD: 83 T: -15 QT: 443 QTc: 518 Interpretive Statements Sinus rhythm Low voltage, precordial leads Borderline T abnormalities, diffuse leads Prolonged QT interval Electronically Signed On 05-21-2020 17:07:18 EDT by Ector Grajeda Glucose, Body Fluid on 05-21-2020 Glucose, Body Fluid 25 mg/dL No Range [facility], [place] Sodium [Moles/Vol] Acites [facility], [place] Test Performed by [place], [place] System, [address] [place] [address] Gram stain on 05-21-2020 INR Coag (Bld) [Relative Many polymorphonuclear cells/lpf. [place], [place] time] No organisms seen. Cytocentrifugation performed. Microscopic observation and enumeration of white blood cells should be confirmed b Cell Count with Differential. Test Performed by [place], [place] System, [address] [place] [address] Specimen Source Comment:Ascitic Fluid Hepatic Function Panel on 05-21-2020 Albumin [Mass/Vol] 2.5 g/dL Low 3.5 - 5 g/dL [place] ALP [Catalytic activity/Vol] 124 U/L 38 - 126 U/L [place] ALT [Catalytic activity/Vol] 12 U/L 0 - 34 U/L [place] Comment on above: The ALT test is performed by an updated assay method. Please note that the referen ce intervals have been changed and are now sex spec ific. AST [Catalytic 45 U/L 15 - 46 U/L [facility], activity/Vol] [place] Bilirubin Ql (U) 1.0 mg/dL 0.2 - 1.3 mg/dL [place], [place] Bilirubin.direct [Mass/Vol] 0.0 mg/dL 0 - 0.3 mg/dL [place] Interpretation and review Abnormal [facility], of laboratory results [place] Protein [Mass/Vol] 6.3 g/dL 6.3 - 8.2 g/dL [place], [place] Test Performed by [facility], [place], [place] [address] [place] [address] Lactate Dehydrogenase, Body Fluid on LD, Fluid 992 U/L No Range [place], [place] Magnesium on 05-21-2020 Magnesium [Mass/Vol] 2.1 mg/dL 1.6 - 2.3 mg/dL [place] Test Performed by [place] Health System, [address] [place] [address] Manual Differential on 05-21-2020 Absolute Baso # 0.1 10*3/uL 0 - 0.2 10*3/uL [facility] [place] [place] Absolute Eos # 0.1 10*3/uL 0 - 0.5 10*3/uL [facility] [place] Absolute Lymph # 0.9 10*3/uL Low 1.1 - 4.5 10*3/uL [facility] [place], [place] Absolute Luna # 0.5 10*3/uL 0.2 - 1.1 10*3/uL [...] [facility] [place], [place] Interpretation and Abnormal [facility]- review of laboratory [place], [place] results Lymphocytes 11 % Low 20 - 40 % [facility] [place], [place] Monocytes 6 % 2 - 10 % [facility] [place] Myelocytes 1 % Abnormal <1 [facility] [place] Ovalocytes Slight [facility] [place] Poikilocytes Slight [facility] [place] Polychromasia Slight [facility] [place] RBC morphology finding ABNORMAL [facility]- Nom (Bld) [place], [place] Seg Neutrophils 75 % 40 - 80 % [facility] [place] Stomatocytes Slight [facility] [place] TOTAL CELLS COUNTED 100 [facility] Toxic Granulation Slight [facility] [place] TOXIC VACUOLES Slight [facility] Test Performed by [facility] [place], [place] System, [address] [place] [address] Other on 05-21-2020 Test Performed by [facility], [address] [facility] [place], [place] [address] Test Performed by [employer] [facility], [address] [facility] [place], [place] [address] Total Protein, Fluid on 05-21-2020 Protein, body fluid 4.0 g/dL No Range [place], [place] Troponin on 05-21-2020 Troponin I.cardiac [Mass/Vol] ng/mL 0 - 0.034 n g/mL [place], [place] Comment on above: . Test Performed by [facility], [address] [facility], [place] [address] Add On Lab Test on 05-20-2020 Sodium [Moles/Vol] Accepted [place], [place] Comment on above: Specimen available & accepta ble for analysis. Test Performed by [facility], [address] [facility], [place] [address] Basic Metabolic Panel w/ Reflex to MG o n 05-20-2020 Anion gap [Moles/Vol] 8 mmol/L [place] Calcium [Mass/Vol] 8.5 mg/dL 8.4 - 10.4 mg/dL [place] Chloride [Moles/Vol] 100 mmol/L 98 - 107 mmol/L [place], [place] CO2 [Moles/Vol] 26 mmol/L 22 - 30 mmol/L [place], [place] Creatinine [Mass/Vol] 0.5 mg/dL Low 0.52 - 1.25 mg/dL [place], [place] EGFR IF NonAfrican Egyptian >90.0 >60 mL/min [place] Comment on above: KDIGO guidelines provide [...] neither GFR category G1 nor G2 fulfill [facility] criteria for CKD. The CKD-EPI equation is [...] GFR/1.73 sq M predicted mL/min/{1.73_m2} >60 mL/min [facility]- among blacks MDRD [place] (S/P/Bld) [Vol rate/Area] Glucose [Mass/Vol] 75 mg/dL 70 - 100 mg/dL [place] Interpretation and Abnormal [facility]- review of laboratory [place] results Potassium [Moles/Vol] 3.2 mmol/L Low 3.5 - 5.1 [facility]- mmol/L [place], [place] Sodium [Moles/Vol] 133 mmol/L Low 135 - 145 [facility]- mmol/L [place] Urea nitrogen [Mass/Vol] 9 mg/dL 7 - 20 mg/dL [facility], [place] Test Performed by [facility], [address] [place] [address] CBC Auto Differential on 05-20-2020 Absolute Baso # 0.0 10*3/uL 0 - 0.2 10*3/uL [facility], [place] Absolute Neut # 5.6 10*3/uL 1.8 - 7 10*3/uL [facility], [place] Basophils/100 WBC (Bld) 0.4 % 0 - 2 % [facility], [place] Eosinophils (Bld) [#/Vol] 0.1 10*3/uL 0 - 0.5 10*3/uL [facility], [place] Eosinophils/100 WBC (Bld) 1.3 % 1 - 6 % [facility], [place] Erythrocyte distribution 15.3 % High 11.5 - 14.5 % [facility], width (RBC) [Ratio] [place] Granulocytes/100 WBC 66.5 % 40 - 80 % [facility], (Bld) [place] Hematocrit (Bld) [Volume 31.1 % Low 35 - 47 % [facility], fraction] [place] Hemoglobin (Bld) 10.6 g/dL Low 11.7 - 16 g/dL [facility], [Mass/Vol] [place] Interpretation and review Abnormal [facility], of laboratory results [place] Lymphocytes (Bld) [#/Vol] 1.3 10*3/uL 1 - 4.3 10*3/uL [place] Lymphocytes/100 WBC (Bld) 15.4 % Low 20 - 40 % [place] MCH (RBC) [Entitic mass] 30.5 pg 26 - 34 pg [place], [place] MCHC (RBC) [Mass/Vol] 34.2 % 32 - 36 % [place] MCV (RBC) [Entitic vol] 89.2 fL 79 - 98 fL [place], [place] Monocytes (Bld) [#/Vol] 1.4 10*3/uL High 0 - 0.8 10*3/uL [place], [place] Monocytes/100 WBC (Bld) 16.4 % High 2 - 10 % [place], [place] Platelet mean volume 7.2 fL Low 7.4 - 10.4 fL [facility], (Bld) [Entitic vol] [place] Platelets (Bld) [#/Vol] 181 10*3/uL 140 - 440 10*3/uL [place] RBC (Bld) [#/Vol] 3.48 10*6/uL Low 3.8 - 5.2 10*6/uL [place] WBC (Bld) [#/Vol] 8.4 10*3/uL 3.6 - 10.7 10*3/uL [place], [place] Test Performed by [facility], [place], [place] [address] [place] [address] Culture, Blood 1 on 05-20-2020 Blood Culture, Routine No growth at 5 days. [place] Test Performed by [place] System, [address] [place] [address] Specimen Source Comment:Blood Culture, Blood 2 on 05-20-2020 Blood Culture, Routine No growth at 5 days. [place] Test Performed by [place] System, [address] [place] [address] Specimen Source Comment:Blood Magnesium on 05-20-2020 Magnesium [Mass/Vol] 2.1 mg/dL 1.6 - 2.3 mg/dL [place], [place] Test Performed by [place] [facility] System, [address] [place] [address] PROTIME INR on 05-20-2020 INR Coag (PPP) [Relative time] 1.7 {INR} High [place] Comment on above: Recommended Anticoagulant Th [...] Infarction Interpretation and review of laboratory Abnormal [place], [place] results PT Coag (PPP) [Time] 18.2 s High 9 - 12 s [place], [place] Comment on above: . Test Performed by [facility], [address] [place] [address] Procalcitonin on 05-20-2020 Interpretation and review of laboratory Abnormal [place] results Procalcitonin 0.3 ng/mL Abnormal <0.10 [place] Sodium [Moles/Vol] See Below [place], [place] Comment on above: PCT <0.50 = Low risk of haris re sepsis and/or septic shock. PCT >2.00 = High risk of sev ere sepsis and/or septic shock. Test Performed by [facility], [place] [address] VITAMIN D 25 HYDROXY on 05-20-2020 Interpretation and review of Abnormal [place] laboratory results Vit D, 25-Hydroxy 14 ng/mL Low 30 - 100 ng/mL [place], [place] Comment on above: Therapy is based on measurem ent of Total 25-OHD with the following classification lev els: Less than 20 ng/mL: Indicati ve of Vit D deficiency 20-30 ng/mL: Suggests Vit D insufficiency Optimal: Greater than or equ al to 30 ng/mL Test performed by [employer] [employer] Immunoassay, measuring Total Vitamin D, n ot individual fractions. Test Performed by [facility], [address], [facility], [place], [place] [address] Add On Lab Test on 05-19-2020 Sodium [Moles/Vol] Accepted [place], [place] Comment on above: Specimen available & accepta ble for analysis. Test Performed by [facility], [address] [facility], [place] [address] Ammonia on 05-19-2020 Ammonia (P) [Mass/Vol] 37 umol/L High 9 - 30 umol/L [place], [place] Interpretation and review Abnormal [facility], of laboratory results [place] Test Performed by [facility], [facility], [place] [address] [place] [address] Basic Metabolic Panel w/ Reflex to MG o n 05-19-2020 Anion gap [Moles/Vol] 8 mmol/L [place] Calcium [Mass/Vol] 8.3 mg/dL Low 8.4 - 10.4 mg/dL [place] Chloride [Moles/Vol] 100 mmol/L 98 - 107 mmol/L [place], [place] CO2 [Moles/Vol] 24 mmol/L 22 - 30 mmol/L [place], [place] Creatinine [Mass/Vol] 0.53 mg/dL 0.52 - 1.25 mg/dL [place], [place] EGFR IF NonAfrican Egyptian >90.0 >60 mL/min [place] Comment on above: KDIGO guidelines provide [...] GFR/1.73 sq M predicted mL/min/{1.73_m2} >60 mL/min [facility]- among blacks MDRD [place] (S/P/Bld) [Vol rate/Area] Glucose [Mass/Vol] 91 mg/dL 70 - 100 mg/dL [place] Interpretation and Abnormal [facility]- review of laboratory [place], [place] results Potassium [Moles/Vol] 3.5 mmol/L 3.5 - 5.1 [facility]- mmol/L [place] Sodium [Moles/Vol] 131 mmol/L Low 135 - 145 [facility]- mmol/L [place], [place] Urea nitrogen [Mass/Vol] 9 mg/dL 7 - 20 mg/dL [place], [place] Test Performed by [facility], [address] [place], [place] [address] CBC Auto Differential on 05-19-2020 Absolute Baso # 0.0 10*3/uL 0 - 0.2 10*3/uL [place], [place] Absolute Neut # 7.0 10*3/uL 1.8 - 7 10*3/uL [place], [place] Basophils/100 WBC (Bld) 0.3 % 0 - 2 % [place], [place] Eosinophils (Bld) [#/Vol] 0.1 10*3/uL 0 - 0.5 10*3/uL [place] Eosinophils/100 WBC (Bld) 0.7 % Low 1 - 6 % [place] Erythrocyte distribution 14.8 % High 11.5 - 14.5 % [facility], width (RBC) [Ratio] [place] Granulocytes/100 WBC 71.5 % 40 - 80 % [facility], (Bld) [place] Hematocrit (Bld) [Volume 30.7 % Low 35 - 47 % [facility], fraction] [place] Hemoglobin (Bld) 10.3 g/dL Low 11.7 - 16 g/dL [facility], [Mass/Vol] [place] Interpretation and review Abnormal [facility], of laboratory results [place] Lymphocytes (Bld) [#/Vol] 1.3 10*3/uL 1 - 4.3 10*3/uL [place] Lymphocytes/100 WBC (Bld) 12.8 % Low 20 - 40 % [place], [place] MCH (RBC) [Entitic mass] 30.0 pg 26 - 34 pg [facility], [place] MCHC (RBC) [Mass/Vol] 33.7 % 32 - 36 % [place], [place] MCV (RBC) [Entitic vol] 89.0 fL 79 - 98 fL [place], [place] Monocytes (Bld) [#/Vol] 1.4 10*3/uL High 0 - 0.8 10*3/uL [facility], [place] Monocytes/100 WBC (Bld) 14.7 % High 2 - 10 % [place] Platelet mean volume 7.1 fL Low 7.4 - 10.4 fL [facility], (Bld) [Entitic vol] [place] Platelets (Bld) [#/Vol] 195 10*3/uL 140 - 440 10*3/uL [place] RBC (Bld) [#/Vol] 3.45 10*6/uL Low 3.8 - 5.2 10*6/uL [facility], [place] WBC (Bld) [#/Vol] 10.0 10*3/uL 3.6 - 10.7 10*3/uL [place], [place] Test Performed by [facility], [facility], [address] [address] [address] ABDOMEN PELVIS W CONTRAST on Patient Name: EVER MCKEON FIN: [place], [place] [id number] ---CT--- Exam Date/Time 05/19/2020 17:24: [address] Abdomen/Pelvis w/ IV Contrast (IV Onl [facility] Physician MD RADHA, [facility] Accession Number [id number] CPT4 Codes 56784 (CT Abdomen/Pelvis w/ I V Contrast (IV Onl), Q9967 (CT ISOVUE 370MG/ML&[id number]&ML&[id number]) Reason For Exam abdominal p ain Report [...] 5:48 Ricky, [facility] Incoming Radiology Results From [facility] - 5:59 PM EDT [place] Patient Name: EVER MCKEON ---CT--- Exam Date/Time 05/19/2020 17:24:[address] Abdomen/Pelvis w/ IV Contrast (IV Onl [facility]ing [facility] Accession Number [id number] CPT4 Codes 35850 (CT Abdomen/Pelvis w/ IV Contrast (IV Onl), Q996 7 (CT ISOVUE 370MG/ML&[id number]&ML&1) Reason For Exam abdominal pain Report CT [...] Aerobic Culture No growth at 3 days. [employer] INR Coag (Bld) [Relative Many polymorphonuclear cells/lpf. Tallyfy time] No organisms seen. Test Performed by [employer] [facility], [facility] [place] [address] EKG 12 Lead on 05-19-2020 Ricky, [facility] Incoming Cardiolo gy Results From [facility] - 05/19/2020 4:32 PM EDT [facility] [employer] MONICA Test Date: 2020-05-18 Pat Name: Ever Mckeon Department: 1A5W Room: 1539 Gender: F Neurosurgeon: CHRIS : 1970 Requested By: LUZ MARIA GARCIA Order Number: [id number] Reading MD: Chriss Kimbrough Measurements Intervals [place] Rate: 93 P: 73 MT: 180 QRS: 38 QRSD: 98 T: -27 QT: 405 QTc: 504 Interpretive Statements Sinus rhythm Ventricular premature complex Low voltage, precordial leads Borderline T abnormalities, diffuse leads Borderline prolonged QT interval Electronically Signed On 05-19-2020 16:31:45 EDT by Brendan Kimbrough [facility] Test Date: 2020-05-18 [facility]: 1A5[facility] Room: 1539 [facility] er: F Neurosurgeon: CHRIS : 1970 Requested By: PAU GARCIA Order Number: [id number] Reading MD: Chriss Kimbrough Measurements Intervals [place] Rate: 93 P: 73 MT: 180 QRS : 38 QRSD: 98 T: -27 QT: 405 QTc: 504 Interpretive Stateme nts Sinus rhythm Ventricular premature complex Low voltage , precordial leads Borderline T abnormalities, diffuse l adrian Borderline prolonged QT interval Magnesium [Mass/Vol] 2.0 mg/dL 1.6 - 2.3 mg/dL [facility] [place], [place] Test Performed by [facility] [employer] [facility], [facility] [place] [address] TSH without Reflex on 05-19-2020 TSH Qn 2.695 u[IU]/mL 0.465 - 4.68 u[IU]/mL [facility] [place] Test Performed by [facility], [facility] [place] [address] Vitamin B12 on 05-19-2020 Cobalamin (Vitamin B12) 927 pg/mL 239 - 931 pg/mL [facility] [place] [Mass/Vol] Test Performed by [facility], [address] [place] [address] Add On Lab Test on 05-18-2020 Ammonia (P) [Mass/Vol] Test Performed by [facility], [address] [place] [address] Lft added, unable to add ammonia- needs green top sent on ice. 05/18/2020 11:18 Sodium [Moles/Vol] see comment [place], [place] Basic Metabolic Panel w/ Reflex to MG o n 05-18-2020 Anion gap [Moles/Vol] 9 mmol/L [place], [place] Calcium [Mass/Vol] 8.3 mg/dL Low 8.4 - 10.4 mg/dL [place], [place] Chloride [Moles/Vol] 99 mmol/L 98 - 107 mmol/L [place], [place] CO2 [Moles/Vol] 23 mmol/L 22 - 30 mmol/L [place], [place] Creatinine [Mass/Vol] 0.57 mg/dL 0.52 - 1.25 mg/dL [place], [place] EGFR IF NonAfrican Egyptian >90.0 >60 mL/min [place], [place] Comment on above: KDIGO guidelines provide [...] (GFR) from serum creatinine in children is [facility] Bedside Kumar equation. It is less accurate in patie nts with extremes of muscle mass, restriction of dietary protein, ingestion of creatine, extra-renal metabolism of cr eatinine, or treatment with medications that affect sofía l tubular creatinine secretion. GFR/1.73 sq M predicted mL/min/{1.73_m2} >60 mL/min [facility]- among blacks MDRD [place], [place] (S/P/Bld) [Vol rate/Area] Glucose [Mass/Vol] 92 mg/dL 70 - 100 mg/dL [place], [place] Interpretation and Abnormal [facility]- review of laboratory [place], [place] results Potassium [Moles/Vol] 3.4 mmol/L Low 3.5 - 5.1 [facility]- mmol/L [place], [place] Sodium [Moles/Vol] 131 mmol/L Low 135 - 145 [facility]- mmol/L [place], [place] Urea nitrogen [Mass/Vol] 11 mg/dL 7 - 20 mg/dL [facility], [place] Test Performed by [facility], [place] [address] CBC Auto Differential on 05-18-2020 Absolute Baso # 0.1 10*3/uL 0 - 0.2 10*3/uL [place], [place] Absolute Neut # 7.7 10*3/uL High 1.8 - 7 10*3/uL [place], [place] Basophils/100 WBC (Bld) 0.6 % 0 - 2 % [place] Eosinophils (Bld) [#/Vol] 0.1 10*3/uL 0 - 0.5 10*3/uL [place] Eosinophils/100 WBC (Bld) 0.8 % Low 1 - 6 % [facility], [place] Erythrocyte distribution 14.9 % High 11.5 - 14.5 % [facility], width (RBC) [Ratio] [place] Granulocytes/100 WBC 75.8 % 40 - 80 % [facility], (Bld) [place] Hematocrit (Bld) [Volume 30.3 % Low 35 - 47 % [facility], fraction] [place] Hemoglobin (Bld) 10.3 g/dL Low 11.7 - 16 g/dL [facility], [Mass/Vol] [place] Interpretation and review Abnormal [facility], of laboratory results [place] Lymphocytes (Bld) [#/Vol] 1.2 10*3/uL 1 - 4.3 10*3/uL [place] Lymphocytes/100 WBC (Bld) 11.7 % Low 20 - 40 % [place], [place] MCH (RBC) [Entitic mass] 30.7 pg 26 - 34 pg [place], [place] MCHC (RBC) [Mass/Vol] 34.1 % 32 - 36 % [place] MCV (RBC) [Entitic vol] 90.1 fL 79 - 98 fL [place], [place] Monocytes (Bld) [#/Vol] 1.1 10*3/uL High 0 - 0.8 10*3/uL [place] Monocytes/100 WBC (Bld) 11.1 % High 2 - 10 % [place] Platelet mean volume 7.3 fL Low 7.4 - 10.4 fL [facility], (Bld) [Entitic vol] [place] Platelets (Bld) [#/Vol] 187 10*3/uL 140 - 440 10*3/uL [place] RBC (Bld) [#/Vol] 3.36 10*6/uL Low 3.8 - 5.2 10*6/uL [place] WBC (Bld) [#/Vol] 10.1 10*3/uL 3.6 - 10.7 10*3/uL [place] Test Performed by [address] [address] Hepatic Function Panel on 05-18-2020 Albumin [Mass/Vol] 2.5 g/dL Low 3.5 - 5 g/dL [place], [place] ALP [Catalytic activity/Vol] 134 U/L High 38 - 126 U/L [place], [place] ALT [Catalytic activity/Vol] 12 U/L 0 - 34 U/L [place] Comment on above: The ALT test is performed by an updated assay method. Please note that the referen ce intervals have been changed and are now sex spec ific. AST [Catalytic 31 U/L 15 - 46 U/L [facility], activity/Vol] [place] Bilirubin Ql (U) 0.9 mg/dL 0.2 - 1.3 mg/dL [place], [place] Bilirubin.direct 0.0 mg/dL 0 - 0.3 mg/dL [facility], [Mass/Vol] [place] Interpretation and review Abnormal [facility], of laboratory results [place] Protein [Mass/Vol] 6.1 g/dL Low 6.3 - 8.2 g/dL [place], [place] Test Performed by [facility], [facility], [place] [address] [place] [address] Magnesium on 05-18-2020 Magnesium [Mass/Vol] 1.9 mg/dL 1.6 - 2.3 mg/dL [place], [place] Test Performed by [facility], [facility] [place] [address] Basic Metabolic Panel w/ Reflex to MG o n 05-17-2020 Anion gap [Moles/Vol] 11 mmol/L [place], [place] Calcium [Mass/Vol] 8.4 mg/dL 8.4 - 10.4 mg/dL [place] Chloride [Moles/Vol] 98 mmol/L 98 - 107 mmol/L [place], [place] CO2 [Moles/Vol] 22 mmol/L 22 - 30 mmol/L [place], [place] Creatinine [Mass/Vol] 0.6 mg/dL 0.52 - 1.25 mg/dL [place], [place] EGFR IF NonAfrican Egyptian >90.0 >60 mL/min [place], [place] Comment on above: KDIGO guidelines provide [...] (GFR) from serum creatinine in children is [facility] Bedside Kumar equation. It is less accurate in patie nts with extremes of muscle mass, restriction of dietary protein, ingestion of creatine, extra-renal metabolism of cr eatinine, or treatment with medications that affect sofía l tubular creatinine secretion. GFR/1.73 sq M predicted mL/min/{1.73_m2} >60 mL/min [facility]- among blacks MDRD [place] (S/P/Bld) [Vol rate/Area] Glucose [Mass/Vol] 86 mg/dL 70 - 100 mg/dL [place], [place] Interpretation and Abnormal [facility]- review of laboratory [place], [place] results Potassium [Moles/Vol] 3.5 mmol/L 3.5 - 5.1 [facility]- mmol/L [place] Sodium [Moles/Vol] 131 mmol/L Low 135 - 145 [facility]- mmol/L [place] Urea nitrogen [Mass/Vol] 11 mg/dL 7 - 20 mg/dL [facility], [place] Test Performed by [facility], [address] [place] [address] CBC Auto Differential on 05-17-2020 Absolute Baso # 0.1 10*3/uL 0 - 0.2 10*3/uL [place] Absolute Neut # 12.6 10*3/uL High 1.8 - 7 10*3/uL [place], [place] Basophils/100 WBC (Bld) 0.4 % 0 - 2 % [place] Eosinophils (Bld) [#/Vol] 0.2 10*3/uL 0 - 0.5 10*3/uL [place] Eosinophils/100 WBC (Bld) 1.5 % 1 - 6 % [facility], [place] Erythrocyte distribution 14.7 % High 11.5 - 14.5 % [facility], width (RBC) [Ratio] [place] Granulocytes/100 WBC 78.8 % 40 - 80 % [facility], (Bld) [place] Hematocrit (Bld) [Volume 31.2 % Low 35 - 47 % [facility], fraction] [place] Hemoglobin (Bld) 10.5 g/dL Low 11.7 - 16 g/dL [facility], [Mass/Vol] [place] Interpretation and review Abnormal [facility], of laboratory results [place] Lymphocytes (Bld) [#/Vol] 1.6 10*3/uL 1 - 4.3 10*3/uL [place] Lymphocytes/100 WBC (Bld) 9.9 % Low 20 - 40 % [place] MCH (RBC) [Entitic mass] 30.3 pg 26 - 34 pg [place], [place] MCHC (RBC) [Mass/Vol] 33.5 % 32 - 36 % [place] MCV (RBC) [Entitic vol] 90.4 fL 79 - 98 fL [place], [place] Monocytes (Bld) [#/Vol] 1.5 10*3/uL High 0 - 0.8 10*3/uL [place], [place] Monocytes/100 WBC (Bld) 9.4 % 2 - 10 % [place], [place] Platelet mean volume 7.7 fL 7.4 - 10.4 fL [facility], (Bld) [Entitic vol] [place] Platelets (Bld) [#/Vol] 192 10*3/uL 140 - 440 10*3/uL [place] RBC (Bld) [#/Vol] 3.46 10*6/uL Low 3.8 - 5.2 10*6/uL [place] WBC (Bld) [#/Vol] 15.9 10*3/uL High 3.6 - 10.7 10*3/uL [place], [place] Test Performed by [facility], [address] [address] Culture, Urine on 05-17-2020 Bacteria identified Cx Nom (U) No growth (<1,000 CFU/ml). [place], [place] Test Performed by [address] [address] Specimen Source Comment:Urine, clean catch EKG 12 lead on 05-17-2020 Ricky, [facility] Incoming Cardiolo gy Results From [facility] - 05/17/2020 5:16 PM EDT [facility], [place] Test Date: 2020-05-15 Pat Name: Ever Mckeon Department: 1AER Room: 1539 Gender: F Neurosurgeon: : 1970 Requested By: WOLF DREW Order Number: [id number] Reading MD: Pineda oconnell Measurements Intervals [place] Rate: 97 P: 71 MT: 158 QRS: 24 QRSD: 100 T: 3 QT: 406 QTc: 516 Interpretive Statements Sinus rhythm Probable left atrial enlargement Nonspecific ST-T wave changes Prolonged QT interval Electronically Signed On 05-17-2020 17:15:48 EDT by José Gonzalez [facility] Test Date: 2020-05-15 Pat Name: Prateek schmid [facility] MONICA Mckeon Department: 1A Room: 1539 Gen jose: F Neurosurgeon: : 1970 Requested By: WOLF DREW Order Number: [id number] Reading MD: Pineda Gonzalez Measurements Intervals [place] Rate: 97 P: 7 1 MT: 158 QRS: 24 QRSD: 100 T: 3 QT: 406 QTc: 516 Interpretive Statements Sinus rhythm Probable left atr ial enlargement Nonspecific ST-T wave changes Prolonged QT interval Magnesium [Mass/Vol] 1.7 mg/dL 1.6 - 2.3 mg/dL [place], [place] Test Performed by [facility], [address] [place] [address] Add On Lab Test on 05-16-2020 Sodium [Moles/Vol] Accepted [place], [place] Comment on above: Specimen available & accepta ble for analysis. Basic Metabolic Panel w/ Reflex to MG o n 05-16-2020 Anion gap [Moles/Vol] 7 mmol/L [place] Calcium [Mass/Vol] 7.9 mg/dL Low 8.4 - 10.4 mg/dL [place] Chloride [Moles/Vol] 99 mmol/L 98 - 107 mmol/L [place], [place] CO2 [Moles/Vol] 24 mmol/L 22 - 30 mmol/L [place], [place] Creatinine [Mass/Vol] 0.57 mg/dL 0.52 - 1.25 mg/dL [place] EGFR IF NonAfrican Egyptian >90.0 >60 mL/min [place], [place] Comment on above: KDIGO guidelines provide [...] neither GFR category G1 nor G2 fulfill [facility] criteria for CKD. The CKD-EPI equation is rajesh dated in individuals 18 years of age and older. Currently the best equation for estimating glomerular filtra tion rate (GFR) from serum creatinine in children is [facility] Bedside Kumar equation. It is less accurate in patie nts with extremes of muscle mass, restriction of dietary protein, ingestion of creatine, extra-renal metabolism of cr eatinine, or treatment with medications that affect sofía l tubular creatinine secretion. GFR/1.73 sq M predicted mL/min/{1.73_m2} >60 mL/min [facility]- among blacks MDRD [place], [place] (S/P/Bld) [Vol rate/Area] Glucose [Mass/Vol] 79 mg/dL 70 - 100 mg/dL [place], [place] Interpretation and Abnormal [facility]- review of laboratory [place], [place] results Potassium [Moles/Vol] 3.4 mmol/L Low 3.5 - 5.1 [facility]- mmol/L [place], [place] Sodium [Moles/Vol] 131 mmol/L Low 135 - 145 [facility]- mmol/L [place], [place] Urea nitrogen [Mass/Vol] 10 mg/dL 7 - 20 mg/dL [place], [place] Test Performed by [facility], [address] [place], [place] [address] CBC on 05-16-2020 Erythrocyte distribution 14.4 % 11.5 - 14.5 % [facility] (RBC) [Ratio] [place] Hematocrit (Bld) [Volume 32.9 % Low 35 - 47 % [facility], fraction] [place] Hemoglobin (Bld) 10.9 g/dL Low 11.7 - 16 g/dL [facility], [Mass/Vol] [place] Interpretation and review Abnormal [facility], of laboratory results [place] MCH (RBC) [Entitic mass] 30.1 pg 26 - 34 pg [facility], [place] MCHC (RBC) [Mass/Vol] 33.1 % 32 - 36 % [facility], [place] MCV (RBC) [Entitic vol] 91.0 fL 79 - 98 fL [facility], [place] Platelet mean volume (Bld) 7.6 fL 7.4 - 10.4 fL [facility], [Entitic vol] [place] Platelets (Bld) [#/Vol] 206 10*3/uL 140 - 440 [facility], 10*3/uL [place] RBC (Bld) [#/Vol] 3.61 10*6/uL Low 3.8 - 5.2 [facility], 10*6/uL [place] WBC (Bld) [#/Vol] 21.0 10*3/uL High 3.6 - 10.7 [facility], 10*3/uL [place] Test Performed by [facility], [facility], [address] [address] [address] ABSCESS DRAIN PERITONEAL on 05-16-20 20 [facility] Incoming Radiology Results From [facility] - 4:36 PM EDT [place] Patient Name: EVER MCKEON ---CT--- Exam Date/Time 05/16/2020 14:57:[address] Drainage Peritoneal Ordering Physician MD ANTONELLA,ISAEL Dyson Accession Number [id number] CPT4 Codes 27814 (CT Drainage Peritoneal/Retroperitoneal), 07308 () Reason For Exam right pararenal/ hepatic [...] moder ate sedation time was [address] scans were obtained with the patient [...] serial dilators, and then a n 8 Kittitian pigtail drain was placed into the collection [...] 05/16/2020 4:33 Patient Name: EVER MCKEON FIN: [place], [place] [id number] ---CT--- Exam Date/Time 05/16/2020 14:57: [address] Drainage Peritoneal Ordering Physician MD ANTONELLA,ISAEL Dyson Accession Number [id number] PT4 Codes 25509 (CT Drainage Peritoneal/Retroperitoneal), 06952 () Reason For Exam right pararenal/ hepatic [...] moder ate sedation time was [address] scans were obta ined with the [...] with serial dilators, and then an 8 Kittitian pig tail drain was placed into the [...] [Moles/Vol] 1.7 mmol/L 0.7 - 2 mmol/L [employer] [place] Test Performed by [facility] [place], [place] [facility] [place] [address] Legionella Antigen, Urine on 05-16-2020 LEGIONELLA ANTIGEN Legionella antigen NOT DETECTED. [employer] [facility] [employer] Magnesium on 05-16-2020 Magnesium [Mass/Vol] 1.7 mg/dL 1.6 - 2.3 mg/dL [facility] [employer] [place], [place] Other on 05-16-2020 Test Performed by [facility] [address] [place] [address] Test Performed by [facility] [address] [address] [place] [address] Specimen Source Comment:Urine, clean c atch Procalcitonin on 05-16-2020 Interpretation and review of Abnormal [place], [place] laboratory results Procalcitonin 1.13 ng/mL Abnormal <0.10 [place] Sodium [Moles/Vol] See Below [place], [place] Comment on above: PCT <0.50 = Low risk of haris re sepsis and/or septic shock. PCT >2.00 = High risk of sev ere sepsis and/or septic shock. Test [facility] [employer] [address] [place] [address] Respiratory Virus PCR Panel on 05-16-20 20 Respiratory Panel PCR NEGATIVE: No targets were detected by the [employer] [place], [place] Respiratory Pathogens PCR Panel. PLEASE NOTE: This assay DOES NOT detect SARS-CoV-2/COV ID-19. _ The [employer] [place] Respiratory Pathogens PCR Panel can detect the following targets: Adenovirus, Coronavirus 229E, Coronavirus HKU1, Coronavirus NL63, Coronavirus OC43, Human Metapneumovirus, Human Rhinovirus/Enterovirus, Influenza A, Influenza B, Parainfluenza Virus 1, Parainfluenza Virus 2, Parainfluenza Virus 3, Parainfluenza Virus 4, Respiratory Syncytial Virus, Bordetella pertussis, Bordetella parapertussis, Chlamydia pneumoniae, Mycoplasma pneumoniae Test Performed by [facility], [place], [place] [address] [place] [address] Specimen Source Comment:Nasopharyngeal STREP PNEUMONIAE ANTIGEN on 05-16-2020 Interpretation and review of Abnormal [place] laboratory results STREP PNEUMONIAE ANTIGEN, Strep pneumo antigen Abnormal [place] URINE DETECTED. Basic Metabolic Panel on 05-15-2020 Anion gap [Moles/Vol] 9 mmol/L [place], [place] Calcium [Mass/Vol] 8.4 mg/dL 8.4 - 10.4 mg/dL [place], [place] Chloride [Moles/Vol] 97 mmol/L Low 98 - 107 mmol/L [place], [place] CO2 [Moles/Vol] 24 mmol/L 22 - 30 mmol/L [place], [place] Creatinine [Mass/Vol] 0.51 mg/dL Low 0.52 - 1.25 mg/dL [place], [place] EGFR IF NonAfrican Egyptian >90.0 >60 mL/min [place], [place] Comment on above: KDIGO guidelines provide [...] (GFR) from serum creatinine in children is [facility] Bedside Kumar equation. It is less accurate in patie nts with extremes of muscle mass, restriction of dietary protein, ingestion of creatine, extra-renal metabolism of cr eatinine, or treatment with medications that affect sofía l tubular creatinine secretion. GFR/1.73 sq M predicted mL/min/{1.73_m2} >60 mL/min [place] among blacks MDRD (S/P/Bld) [Vol rate/Area] Glucose [Mass/Vol] 151 mg/dL High 70 - 100 mg/dL [place], [place] Potassium [Moles/Vol] 3.5 mmol/L 3.5 - 5.1 mmol/L [place], [place] Sodium [Moles/Vol] 131 mmol/L Low 135 - 145 mmol/L [place], [place] Urea nitrogen [Mass/Vol] 9 mg/dL 7 - 20 mg/dL [place], [place] CT ABDOMEN PELVIS W CONTRAST on 020 Patient Name: EVER MCKEON FIN: [place], [place] [id number] ---CT--- Exam Date/Time 05/15/2020 21:31: [address] Abdomen/Pelvis w/ IV Contrast (IV Onl Orde ring Physician MD JORGE, AYSHA Blank Accession Number [id number] CPT4 Codes 80353 (CT Abdomen/Pelvis w/ I V Contrast (IV Onl), Q9967 (CT ISOVUE 370MG/ML&[id number]&ML&1) Reason For Exam abdominal p ain and [...] Results From [facility] - 9:41 PM EDT [place] Patient Name: EVER MCKEON ---CT--- Exam Date/Time 05/15/2020 21:31:[address] Abdomen/Pelvis w/ IV Contrast (IV Onl Ordering Physician MD JORGE, AYSHA D Accession Number [id number] CPT4 Codes 25603 (CT Abdomen/Pelvis w/ IV Contrast (IV Onl), Q996 7 (CT ISOVUE 370MG/ML&[id number]&ML&1) Reason For Exam abdominal pain and fever [...] # 0.1 10*3/uL 0 - 0.2 10*3/uL [facility], [place] Absolute Neut # 20.7 10*3/uL High 1.8 - 7 10*3/uL [facility], [place] Basophils/100 WBC (Bld) 0.4 % 0 - 2 % [place], [place] Eosinophils (Bld) [#/Vol] 0.0 10*3/uL 0 - 0.5 10*3/uL [facility], [place] Eosinophils/100 WBC (Bld) 0.2 % Low 1 - 6 % [facility], [place] Erythrocyte distribution 14.7 % High 11.5 - 14.5 % [facility], width (RBC) [Ratio] [place] Granulocytes/100 WBC 86.1 % High 40 - 80 % [facility], (Bld) [place] Hematocrit (Bld) [Volume 36.9 % 35 - 47 % [facility], fraction] [place] Hemoglobin (Bld) 12.4 g/dL 11.7 - 16 g/dL [facility], [Mass/Vol] [place] Interpretation and review Abnormal [facility], of laboratory results [place] Lymphocytes (Bld) [#/Vol] 1.7 10*3/uL 1 - 4.3 10*3/uL [facility], [place] Lymphocytes/100 WBC (Bld) 7.3 % Low 20 - 40 % [facility], [place] MCH (RBC) [Entitic mass] 30.0 pg 26 - 34 pg [facility], [place] MCHC (RBC) [Mass/Vol] 33.6 % 32 - 36 % [facility], [place] MCV (RBC) [Entitic vol] 89.4 fL 79 - 98 fL [place], [place] Monocytes (Bld) [#/Vol] 1.5 10*3/uL High 0 - 0.8 10*3/uL [facility], [place] Monocytes/100 WBC (Bld) 6.0 % 2 - 10 % [facility], [place] Platelet mean volume 7.3 fL Low 7.4 - 10.4 fL [facility], (Bld) [Entitic vol] [place] Platelets (Bld) [#/Vol] 268 10*3/uL 140 - 440 10*3/uL [facility], [place] RBC (Bld) [#/Vol] 4.13 10*6/uL 3.8 - 5.2 10*6/uL [facility], [place] WBC (Bld) [#/Vol] 24.0 10*3/uL High 3.6 - 10.7 10*3/uL [place], [place] Test Performed by [facility], [facility], [place] [address] [place] [address] Hepatic Function Panel on 05-15-2020 Albumin [Mass/Vol] 2.8 g/dL Low 3.5 - 5 g/dL [place], [place] ALP [Catalytic activity/Vol] 148 U/L High 38 - 126 U/L [place] ALT [Catalytic activity/Vol] 15 U/L 0 - 34 U/L [place] Comment on above: The ALT test is performed by an updated assay method. Please note that the referen ce intervals have been changed and are now sex spec ific. AST [Catalytic activity/Vol] 29 U/L 15 - 46 U/L [place] Bilirubin Ql (U) 1.5 mg/dL High 0.2 - 1.3 mg/dL [place], [place] Bilirubin.direct [Mass/Vol] 0.0 mg/dL 0 - 0.3 mg/dL [place], [place] Interpretation and review of Abnormal [place] laboratory results Protein [Mass/Vol] 6.7 g/dL 6.3 - 8.2 g/dL [place], [place] Lactic Acid, Plasma on 05-15-2020 Interpretation and review Abnormal [facility] laboratory results [place] Lactate [Moles/Vol] 3 mmol/L Critically high 0.7 - 2 mmol/L [place], [place] Comment on above: Critical Panic Lactate has f ivanna below the [facility] CCL/ED Panic Call Protocol. For [facility] ED patients ONLY the Lactate Levels greater than 2.0 and less than or equal to 4.0 mmol/L fall under the Panic Call Po licy. Test Performed by [facility] [facility], [place] [address] [place] [address] Lactate [Moles/Vol] 2.7 mmol/L Critically high 0.7 - 2 [facility] mmol/L [place] Comment on above: Critical Panic Lactate has f ivanna below the [facility] CCL/ED Panic Call Protocol. For [facility] ED patients ONLY the Lactate Levels greater than 2.0 and less than or equal to 4.0 mmol/L fall under the Panic Call Po licy. Lipase on 05-15-2020 Lipase [Catalytic activity/Vol] 39 U/L 23 - 300 U/L [place], [place] Other on 05-15-2020 Test Performed by [facility], [place] [address] Interpretation and review of Abnormal [place], [place] laboratory results Test Performed by [facility], [place] [address] Protime-INR on 05-15-2020 INR Coag (PPP) [Relative time] 1.5 {INR} High [place], [place] Comment on above: Recommended Anticoagulant Th [...] Infarction Interpretation and review of laboratory Abnormal [place], [place] results PT Coag (PPP) [Time] 15.5 s High 9 - 12 s [place], [place] Comment on above: . Test Performed by [facility], [facility] [address] [facility] [address] [place] [address] Urinalysis on 05-15-2020 Appearance (U) Clear Clear NA [place], [place] Comment on above: . Bacteria, UA Negative Negative /[HPF] [place], [place] Comment on above: . Bilirubin Urine Negative Negative mg/dL [place], [place] Comment on above: . Color (U) Yellow Lt. Yellow NA [place], [place] Comment on above: . Glucose, Ur Normal Normal (<70) mg/dL [place], [place] Comment on above: . Hyaline Casts, UA Negative Negative /[LPF] [place], [place] Comment on above: . Interpretation and review of Abnormal [place] laboratory results Ketones Ql (U) Negative Negative mg/dL [place], [place] Comment on above: . LEUKOCYTES, UA Negative Negative Mario/uL [place], [place] Comment on above: . Mucous Threads Few Negative /[LPF] [place], [place] Comment on above: . Nitrite, Urine Negative Negative NA [place], [place] Comment on above: . Occult Blood,Urine Negative Negative mg/dL [place], [place] Comment on above: . pH (U) 6.5 [pH] [place], [place] Comment on above: . Protein (U) [Mass/Vol] 10 mg/dL Abnormal Negative [place], [place] Comment on above: . RBC (U) [#/Vol] 0-2 0 - 2 /[HPF] [place], [place] Comment on above: . Specific [place], Urine >1.030 Abnormal [place], [place] Comment on above: . Squam Epithel, UA 11-25 Abnormal 3 - 5 /[HPF] [place], [place] Comment on above: . Urobilinogen, Urine 4 mg/dL Abnormal Normal (0-1) [place], [place] Comment on above: . WBC, UA 0-2 0 - 5 /[HPF] [place], [place] Comment on above: . Test Performed by [facility], [address] [place] [address] XR CHEST (2 VW) on 05-15-2020 Ricky, [facility] Incoming Radiology Results From [facility] - 6:47 PM EDT [place] Patient Name: EVER MCKEON ---Diagnostic Radiology--- Exam Date/Time 05/15/2020 18:41:40 EDT Exam CR Chest PA/LAT Ordering Physician WOLF DELGADO Accession Number [id number] CPT4 Codes 53108 () Reason For Exam sepsis Report Indication: [...] 05/15/2020 6:45 Patient Name: EVER MCKEON FIN: [place], [place] [id number] ---Diagnostic Radiology--- Exam Date/Time 05/15/2020 18:41:40 EDT Exam CR Chest PA/LAT Ordering Physician WOLF DELGADO Accession Number [id number] CPT4 Codes 82629 () Reason For Exam seps is Report [...] Lab Test on 05-11-2020 Sodium [Moles/Vol] Accepted [place], [place] Comment on above: Specimen available & accepta ble for analysis. Test Performed by [facility], [address] [facility], [place] [address] Basic Metabolic Panel on 05-11-2020 Anion gap [Moles/Vol] 7 mmol/L [place], [place] Calcium [Mass/Vol] 9.0 mg/dL 8.4 - 10.4 mg/dL [place], [place] Chloride [Moles/Vol] 96 mmol/L Low 98 - 107 mmol/L [place], [place] CO2 [Moles/Vol] 29 mmol/L 22 - 30 mmol/L [place], [place] Creatinine [Mass/Vol] 0.61 mg/dL 0.52 - 1.25 mg/dL [place] EGFR IF NonAfrican Egyptian >90.0 >60 mL/min [place], [place] Comment on above: KDIGO guidelines provide [...] (GFR) from serum creatinine in children is [facility] Bedside Kumar equation. It is less accurate in patie nts with extremes of muscle mass, restriction of dietary protein, ingestion of creatine, extra-renal metabolism of cr eatinine, or treatment with medications that affect sofía l tubular creatinine secretion. GFR/1.73 sq M predicted mL/min/{1.73_m2} >60 mL/min [facility] among blacks MDRD [place] (S/P/Bld) [Vol rate/Area] Glucose [Mass/Vol] 115 mg/dL High 70 - 100 mg/dL [place], [place] Interpretation and Abnormal [facility]- review of laboratory [place], [place] results Potassium [Moles/Vol] 3.7 mmol/L 3.5 - 5.1 [facility]- mmol/L [place] Sodium [Moles/Vol] 132 mmol/L Low 135 - 145 [facility]- mmol/L [place], [place] Urea nitrogen [Mass/Vol] 8 mg/dL 7 - 20 mg/dL [place], [place] Test Performed by [facility], [address] [place], [place] [address] C-Reactive Protein on 05-11-2020 CRP [Mass/Vol] 210 mg/L High 0 - 6 mg/L [place], [place] Comment on above: . Interpretation and review of Abnormal [place], [place] laboratory results Test Performed by [facility], [address] [place] [id number] CBC Auto Differential on 05-11-2020 Absolute Baso # 0.1 10*3/uL 0 - 0.2 10*3/uL [place], [place] Absolute Neut # 6.1 10*3/uL 1.8 - 7 10*3/uL [facility], [place] Basophils/100 WBC (Bld) 0.7 % 0 - 2 % [place], [place] Eosinophils (Bld) [#/Vol] 0.2 10*3/uL 0 - 0.5 10*3/uL [place], [place] Eosinophils/100 WBC (Bld) 2.2 % 1 - 6 % [place], [place] Erythrocyte distribution 13.9 % 11.5 - 14.5 % [facility] width (RBC) [Ratio] [place] Granulocytes/100 WBC 69.3 % 40 - 80 % [facility], (Bld) [place] Hematocrit (Bld) [Volume 34.2 % Low 35 - 47 % [facility], fraction] [place] Hemoglobin (Bld) 11.6 g/dL Low 11.7 - 16 g/dL [facility], [Mass/Vol] [place] Interpretation and review Abnormal [facility], of laboratory results [place] Lymphocytes (Bld) [#/Vol] 1.3 10*3/uL 1 - 4.3 10*3/uL [place], [place] Lymphocytes/100 WBC (Bld) 14.8 % Low 20 - 40 % [place], [place] MCH (RBC) [Entitic mass] 30.3 pg 26 - 34 pg [place], [place] MCHC (RBC) [Mass/Vol] 33.8 % 32 - 36 % [place], [place] MCV (RBC) [Entitic vol] 89.8 fL 79 - 98 fL [place], [place] Monocytes (Bld) [#/Vol] 1.1 10*3/uL High 0 - 0.8 10*3/uL [place], [place] Monocytes/100 WBC (Bld) 13.0 % High 2 - 10 % [place], [place] Platelet mean volume 8.0 fL 7.4 - 10.4 fL [facility], (Bld) [Entitic vol] [place] Platelets (Bld) [#/Vol] 245 10*3/uL 140 - 440 10*3/uL [place], [place] RBC (Bld) [#/Vol] 3.81 10*6/uL 3.8 - 5.2 10*6/uL [place], [place] WBC (Bld) [#/Vol] 8.8 10*3/uL 3.6 - 10.7 10*3/uL [place] Test Performed by [place] [address] [place] [address] Procalcitonin on 05-11-2020 Interpretation and review of Abnormal [place], [place] laboratory results Procalcitonin 0.32 ng/mL Abnormal <0.10 [place] Sodium [Moles/Vol] See Below [place], [place] Comment on above: PCT <0.50 = Low risk of haris re sepsis and/or septic shock. PCT >2.00 = High risk of sev ere sepsis and/or septic shock. Test Performed by [place] [address], [place] [address] Sedimentation Rate on 05-11-2020 Interpretation and review Abnormal [facility] laboratory results [place] Sed Rate 71 mm/h High 0 - 20 mm/h [place], [place] Test Performed by [place] [address] [place] [address] Add On Lab Test on 05-10-2020 Sodium [Moles/Vol] Accepted [place], [place] Comment on above: Specimen available & accepta ble for analysis. Test Performed by [facility] [place] [address] [place] [address] Basic Metabolic Panel on 05-10-2020 Anion gap [Moles/Vol] 9 mmol/L [place], [place] Calcium [Mass/Vol] 8.8 mg/dL 8.4 - 10.4 mg/dL [place], [place] Chloride [Moles/Vol] 97 mmol/L Low 98 - 107 mmol/L [place], [place] CO2 [Moles/Vol] 25 mmol/L 22 - 30 mmol/L [place], [place] Creatinine [Mass/Vol] 0.57 mg/dL 0.52 - 1.25 mg/dL [place] EGFR IF NonAfrican Egyptian >90.0 >60 mL/min [place], [place] Comment on above: KDIGO guidelines provide [...] criteria for CKD. The CKD-EPI equation is rjaesh dated in individuals 18 years of age and older. Currently the best equation for estimating glomerular filtra tion rate (GFR) from serum creatinine in children is [facility] Bedside Kumar equation. It is less accurate in patie nts with extremes of muscle mass, restriction of dietary protein, ingestion of creatine, extra-renal metabolism of cr eatinine, or treatment with medications that affect sofía l tubular creatinine secretion. GFR/1.73 sq M predicted mL/min/{1.73_m2} >60 mL/min [place] among [place] MDRD (S/P/Bld) [Vol rate/Area] Glucose [Mass/Vol] 104 mg/dL High 70 - 100 mg/dL [place], [place] Potassium [Moles/Vol] 3.7 mmol/L 3.5 - 5.1 mmol/L [place], [place] Sodium [Moles/Vol] 131 mmol/L Low 135 - 145 mmol/L [place], [place] Urea nitrogen [Mass/Vol] 9 mg/dL 7 - 20 mg/dL [place], [place] C-Reactive Protein on 05-10-2020 CRP [Mass/Vol] 246.1 mg/L High 0 - 6 mg/L [place], [place] Comment on above: . Interpretation and review of Abnormal [place], [place] laboratory results Test Performed by [facility], [address] [place] [address] CBC Auto Differential on 05-10-2020 Absolute Baso # 0.1 10*3/uL 0 - 0.2 10*3/uL [place] Absolute Neut # 7.2 10*3/uL High 1.8 - 7 10*3/uL [place], [place] Basophils/100 WBC (Bld) 0.6 % 0 - 2 % [place], [place] Eosinophils (Bld) [#/Vol] 0.2 10*3/uL 0 - 0.5 10*3/uL [place], [place] Eosinophils/100 WBC (Bld) 1.7 % 1 - 6 % [place] Erythrocyte distribution 13.7 % 11.5 - 14.5 % [facility] width (RBC) [Ratio] [place] Granulocytes/100 WBC 68.8 % 40 - 80 % [facility], (Bld) [place] Hematocrit (Bld) [Volume 33.3 % Low 35 - 47 % [facility], fraction] [place] Hemoglobin (Bld) 11.4 g/dL Low 11.7 - 16 g/dL [facility], [Mass/Vol] [place] Interpretation and review Abnormal [facility] of laboratory results [place] Lymphocytes (Bld) [#/Vol] 1.7 10*3/uL 1 - 4.3 10*3/uL [place], [place] Lymphocytes/100 WBC (Bld) 15.7 % Low 20 - 40 % [place], [place] MCH (RBC) [Entitic mass] 30.5 pg 26 - 34 pg [place], [place] MCHC (RBC) [Mass/Vol] 34.2 % 32 - 36 % [place], [place] MCV (RBC) [Entitic vol] 89.4 fL 79 - 98 fL [place], [place] Monocytes (Bld) [#/Vol] 1.4 10*3/uL High 0 - 0.8 10*3/uL [place] Monocytes/100 WBC (Bld) 13.2 % High 2 - 10 % [place], [place] Platelet mean volume 8.6 fL 7.4 - 10.4 fL [facility], (Bld) [Entitic vol] [place] Platelets (Bld) [#/Vol] 248 10*3/uL 140 - 440 10*3/uL [place] RBC (Bld) [#/Vol] 3.72 10*6/uL Low 3.8 - 5.2 10*6/uL [place], [place] WBC (Bld) [#/Vol] 10.5 10*3/uL 3.6 - 10.7 10*3/uL [place] Test Performed by [facility], [address] [address] [address] Abdomen Pelvis W Contrast on 020 Ricky, [facility] Incoming Radiology Results From [facility] - 1:12 PM EDT [place] Patient Name: EVER MCKEON ---CT--- Exam Date/Time 05/10/2020 12:12:[address] Abdomen/Pelvis w/ IV Contrast (IV Onl Ordering Physician [id number] ANUPAMA SAMER Accession Number [id number] CPT4 Codes 64987 (CT Abdomen/Pelvis w/ IV Contrast (IV Onl), Q996 7 (CT ISOVUE [id number]/[id number]) Reason For Exam Eval progression of perinephric [...] and sp lenomegaly. Report Dictated on Workstation: [employer] --- Final --- Dictated: 05/10/2020 1:03 pm Dictating Physician: MD GUEVARA BRIAN Signed Date and Time: 05/10/2020 1:11 pm Signed by: MD GUEVARA BRIAN Transcribed Date and Time: 05/10/2020 1:03 Patient Name: EVER MCKEON FIN: [place], [place] [id number] ---CT--- Exam Date/Time 05/10/2020 12:12: [address] Abdomen/Pelvis w/ IV Contrast (IV Onl Ordering Physician [id number] ALTMAN SAMER Accession Num [id number] CPT4 Codes 87550 (CT Abdomen/Pelvis w/ IV Contrast (IV Onl), Q9967 (CT ISOVUE [id number]/[id number]) Reason For Exam Eval progression of perinephric [...] 165 U/L High 38 - 126 U/L [place], [place] ALT [Catalytic activity/Vol] 16 U/L 0 - 34 U/L [place], [place] Comment on above: The ALT test is performed by an updated assay method. Please note that the referen ce intervals have been changed and are now sex spec ific. AST [Catalytic activity/Vol] 36 U/L 15 - 46 U/L [place], [place] Bilirubin Ql (U) 1.0 mg/dL 0.2 - 1.3 mg/dL [place], [place] Bilirubin.direct [Mass/Vol] 0.0 mg/dL 0 - 0.3 mg/dL [place] Interpretation and review of Abnormal [place], [place] laboratory results Protein [Mass/Vol] 6.6 g/dL 6.3 - 8.2 g/dL [place], [place] Lipase on 05-10-2020 Lipase [Catalytic activity/Vol] 105 U/L 23 - 300 U/L [place], [place] Other on 05-10-2020 Test Performed by [address] [address] Interpretation and review of Abnormal [place] laboratory results Test Performed by [address] [address] Sedimentation Rate on 05-10-2020 Sed Rate 68 mm/h High 0 - 20 mm/h [place] US DOPPLER ABD/PEL/RETRO/LMTD on 2019 Ricky, [facility] Incoming Radiology Results From [facility] - 2:45 PM EDT [place] Patient Name: EVER MCKEON ---Ultrasound--- Exam Date/Time 05/10/2020 14:23:24 EDT Exam US Art/Vein Abd/Pelvis/Scrotal Complete Ordering Physician [id number] PANTOJA Accession Number [id number] CPT4 Codes 69342 () Reason For Exam Eval for budd [...] 05/10/2020 2:26 Patient Name: EVER MCKEON FIN: [place], [place] [id number] ---Ultrasound--- Exam Date/Time 0 14:23:24 EDT Exam US Art/Vein Abd/Pelvis/Scrotal Compl ete Ordering Physician [id number] PANTOJA Accession Num [id number] CPT4 Codes 17010 () Reason For Exam Eval for budd [...] on 05-09-2020 Anion gap [Moles/Vol] 10 mmol/L [place], [place] Calcium [Mass/Vol] 8.9 mg/dL 8.4 - 10.4 mg/dL [place], [place] Chloride [Moles/Vol] 95 mmol/L Low 98 - 107 mmol/L [place], [place] CO2 [Moles/Vol] 26 mmol/L 22 - 30 mmol/L [place], [place] Creatinine [Mass/Vol] 0.62 mg/dL 0.52 - 1.25 mg/dL [place], [place] EGFR IF NonAfrican Egyptian >90.0 >60 mL/min [place], [place] Comment on above: KDIGO guidelines provide [...] GFR/1.73 sq M predicted mL/min/{1.73_m2} >60 mL/min [facility]- among blacks MDRD [place], [place] (S/P/Bld) [Vol rate/Area] Glucose [Mass/Vol] 127 mg/dL High 70 - 100 mg/dL [place], [place] Interpretation and Abnormal [facility]- review of laboratory [place], [place] results Potassium [Moles/Vol] 3.2 mmol/L Low 3.5 - 5.1 [facility]- mmol/L [place], [place] Sodium [Moles/Vol] 130 mmol/L Low 135 - 145 [facility]- mmol/L [place], [place] Urea nitrogen [Mass/Vol] 11 mg/dL 7 - 20 mg/dL [place], [place] Test Performed by [facility], [address] [place], [place] [address] CBC Auto Differential on 05-09-2020 Absolute Baso # 0.0 10*3/uL 0 - 0.2 10*3/uL [place], [place] Absolute Neut # 9.8 10*3/uL High 1.8 - 7 10*3/uL [place], [place] Basophils/100 WBC (Bld) 0.2 % 0 - 2 % [place], [place] Eosinophils (Bld) [#/Vol] 0.2 10*3/uL 0 - 0.5 10*3/uL [place], [place] Eosinophils/100 WBC (Bld) 1.4 % 1 - 6 % [facility], [place] Erythrocyte distribution 14.0 % 11.5 - 14.5 % [facility], width (RBC) [Ratio] [place] Granulocytes/100 WBC 74.8 % 40 - 80 % [facility], (Bld) [place] Hematocrit (Bld) [Volume 35.9 % 35 - 47 % [facility], fraction] [place] Hemoglobin (Bld) 12.1 g/dL 11.7 - 16 g/dL [facility], [Mass/Vol] [place] Interpretation and review Abnormal [facility], of laboratory results [place] Lymphocytes (Bld) [#/Vol] 1.8 10*3/uL 1 - 4.3 10*3/uL [facility], [place] Lymphocytes/100 WBC (Bld) 13.7 % Low 20 - 40 % [facility], [place] MCH (RBC) [Entitic mass] 30.1 pg 26 - 34 pg [facility], [place] MCHC (RBC) [Mass/Vol] 33.6 % 32 - 36 % [facility], [place] MCV (RBC) [Entitic vol] 89.3 fL 79 - 98 fL [place], [place] Monocytes (Bld) [#/Vol] 1.3 10*3/uL High 0 - 0.8 10*3/uL [facility], [place] Monocytes/100 WBC (Bld) 9.9 % 2 - 10 % [place], [place] Platelet mean volume 7.9 fL 7.4 - 10.4 fL [facility], (Bld) [Entitic vol] [place] Platelets (Bld) [#/Vol] 264 10*3/uL 140 - 440 10*3/uL [facility], [place] RBC (Bld) [#/Vol] 4.02 10*6/uL 3.8 - 5.2 10*6/uL [facility], [place] WBC (Bld) [#/Vol] 13.0 10*3/uL High 3.6 - 10.7 10*3/uL [place], [place] Test Performed by [facility], [place] [address] [place] [address] Hemoglobin and Hematocrit, Blood on Hematocrit (Bld) [Volume 33.9 % Low 35 - 47 % [facility]] [place] Hemoglobin (Bld) [Mass/Vol] 11.5 g/dL Low 11.7 - 16 g/d L [place], [place] Interpretation and review Abnormal [facility], of laboratory results [place] Test Performed by [facility], [facility], [facility] [place] [address] Add On Lab Test on 05-08-2020 Sodium [Moles/Vol] see comment [place], [place] Test Performed by [facility], [facility], [address] [address] cbc w/diff added. Manual diff not possible to be added on. Basic Metabolic Panel on 05-08-2020 Anion gap [Moles/Vol] 10 mmol/L [place], [place] Calcium [Mass/Vol] 8.9 mg/dL 8.4 - 10.4 mg/dL [place], [place] Chloride [Moles/Vol] 98 mmol/L 98 - 107 mmol/L [place], [place] CO2 [Moles/Vol] 25 mmol/L 22 - 30 mmol/L [place], [place] Creatinine [Mass/Vol] 0.66 mg/dL 0.52 - 1.25 mg/dL [place], [place] EGFR IF NonAfrican Egyptian >90.0 >60 mL/min [place], [place] Comment on above: KDIGO guidelines provide [...] GFR/1.73 sq M predicted mL/min/{1.73_m2} >60 mL/min [facility] among blacks MDRD [place], [place] (S/P/Bld) [Vol rate/Area] Glucose [Mass/Vol] 136 mg/dL High 70 - 100 mg/dL [facility] [place], [place] Interpretation and Abnormal [facility]- review of laboratory [place], [place] results Potassium [Moles/Vol] 3.3 mmol/L Low 3.5 - 5.1 [facility] mmol/L [place], [place] Sodium [Moles/Vol] 132 mmol/L Low 135 - 145 [facility]- mmol/L [place], [place] Urea nitrogen [Mass/Vol] 12 mg/dL 7 - 20 mg/dL [facility], [place] Test Performed by [facility], [address] [place], [place] [address] CBC Auto Differential on 05-08-2020 Erythrocyte distribution 14.0 % 11.5 - 14.5 % [facility], width (RBC) [Ratio] [place] Hematocrit (Bld) [Volume 37.5 % 35 - 47 % [facility], fraction] [place] Hemoglobin (Bld) 12.7 g/dL 11.7 - 16 g/dL [facility]- [place], [Mass/Vol] [place] Interpretation and review Abnormal [facility], of laboratory results [place] MCH (RBC) [Entitic mass] 30.6 pg 26 - 34 pg [facility], [place] MCHC (RBC) [Mass/Vol] 34.0 % 32 - 36 % [place], [place] MCV (RBC) [Entitic vol] 90.0 fL 79 - 98 fL [facility], [place] Platelet mean volume (Bld) 8.3 fL 7.4 - 10.4 fL [facility], [Entitic vol] [place] Platelets (Bld) [#/Vol] 297 10*3/uL 140 - 440 [facility], 10*3/uL [place] RBC (Bld) [#/Vol] 4.16 10*6/uL 3.8 - 5.2 [facility], 10*6/uL [place] WBC (Bld) [#/Vol] 17.3 10*3/uL High 3.6 - 10.7 [facility], 10*3/uL [place] Test Performed by [facility], [facility], [facility] [place] [address] EKG 12 Lead on 05-08-2020 [facility] Test Date: 2020-05-07 Pat Name: Prateek schmid [facility], [place] Linda Department: 1A Room: [address] [place] [address] er: F Neurosurgeon: JOSE CRUZ : 1970 Requested By: MARISA PETERS Order Number: [id number] Reading MD: Regan lan Measurements Intervals [place] Rate: 101 P: 75 MT: 160 QR S: 34 QRSD: 86 T: -2 QT: 343 QTc: 445 Interpretive Statements Sinus tachycardia Electronically Signed On 05-08-2020 13:00:43 EDT by Regan García [facility] Incoming Cardiolo gy Results From [facility] - 05/08/2020 1:01 PM EDT [facility], [place] Test Date: 2020-05-07 Pat Name: Ever Mckeon Department: [facility] Room: [facility] Gender: F Neurosurgeon: JOSE CRUZ : 1970 Requested By: MARISA PETERS Order Number: [id number] Reading MD: Regan Cortez Measurements Intervals [place] Rate: 101 P: 75 MT: 160 QRS: 34 QRSD: 86 T: -2 QT: 343 QTc: 445 Interpretive Statements Sinus tachycardia Electronically Signed On 05-08-2020 13:00:43 EDT by Chris Cortez Hemoglobin and Hematocrit, Blood on Hematocrit (Bld) [Volume 35.9 % 35 - 47 % [place], [place] fraction] Hemoglobin (Bld) 12.1 g/dL 11.7 - 16 g/dL [facility], [place] [Mass/Vol] Test Performed by [facility], [facility], [place] [address] Manual Differential on 05-08-2020 Absolute Baso # 0.0 10*3/uL 0 - 0.2 10*3/uL [place], [place] Absolute Eos # 0.2 10*3/uL 0 - 0.5 10*3/uL [place], [place] Absolute Lymph # 1.2 10*3/uL 1.1 - 4.5 10*3/uL [place], [place] Absolute Luna # 0.9 10*3/uL 0.2 - 1.1 10*3/uL [place], [place] Absolute Neut # 15.1 10*3/uL High 2.2 - 8.2 10*3/uL [place], [place] Bands 21 % [place], [place] Basophils 0 % 0 - 2 % [place], [place] Comment SLIDE SCANNED [place], [place] Eosinophils 1 % [place], [place] Interpretation and review Abnormal [facility] of laboratory results [place] Lymphocytes 7 % [place], [place] Monocytes 5 % [place], [place] RBC morphology finding NORMAL [facility] Nom (Bld) [place] Seg Neutrophils 66 % [place], [place] TOTAL CELLS COUNTED 100 [place], [place] Test Performed by [facility], [facility] [place] [address] , Urine on 05-08-2020 Beta HCG ( test) Ql (U) Negative Negative NA [place], [place] Comment on above: is the most common reason for HCG in urine, although choriocarcinoma, hydatidifor m mole, and certain nontropho- blastic malignancies also re sult in detectable urinary HCG levels. Sensitivity = 20mIU/ mL. Test Performed by [place] [address] [facility] [place] [address] Add On Lab Test on 05-07-2020 Sodium [Moles/Vol] Accepted [place], [place] Comment on above: Specimen available & accepta ble for analysis. Test Performed by [facility], [place] [address] [address] [facility], [place] [address] Sodium [Moles/Vol] Accepted [place], [place] Comment on above: Specimen available & accepta ble for analysis. [facility], [facility] [address] [facility] [address] [place] [address] Basic Metabolic Panel on 05-07-2020 Anion gap [Moles/Vol] 9 mmol/L [place], [place] Calcium [Mass/Vol] 8.9 mg/dL 8.4 - 10.4 mg/dL [place], [place] Chloride [Moles/Vol] 96 mmol/L Low 98 - 107 mmol/L [place], [place] CO2 [Moles/Vol] 25 mmol/L 22 - 30 mmol/L [place], [place] Creatinine [Mass/Vol] 0.67 mg/dL 0.52 - 1.25 mg/dL [place], [place] EGFR IF NonAfrican Egyptian >90.0 >60 mL/min [place], [place] Comment on above: KDIGO guidelines provide [...] (GFR) from serum creatinine in children is [facility] Bedside Kumar equation. It is less accurate in patie nts with extremes of muscle mass, restriction of dietary protein, ingestion of creatine, extra-renal metabolism of cr eatinine, or treatment with medications that affect sofía l tubular creatinine secretion. GFR/1.73 sq M predicted mL/min/{1.73_m2} >60 mL/min [place] among blacks MDRD (S/P/Bld) [Vol rate/Area] Glucose [Mass/Vol] 168 mg/dL High 70 - 100 mg/dL [place], [place] Potassium [Moles/Vol] 3.3 mmol/L Low 3.5 - 5.1 mmol/L [place], [place] Sodium [Moles/Vol] 130 mmol/L Low 135 - 145 mmol/L [place], [place] Urea nitrogen [Mass/Vol] 10 mg/dL 7 - 20 mg/dL [place], [place] Brain Natriuretic Peptide on 05-07-2020 Interpretation and review of Abnormal [place] laboratory results Natriuretic peptide B (Bld) 383 pg/mL High 0 - 125 pg/mL [place], [place] [Mass/Vol] C-Reactive Protein on 05-07-2020 CRP [Mass/Vol] 232.3 mg/L High 0 - 6 mg/L [place], [place] Comment on above: . COVID-19 on 05-07-2020 SARS-CoV-2 Not Detected [place], [place] Expected Result: Not Detected _ Real-time, RT-PCR performed on the [employer] System by the [facility] Microbiology Service. Negative results do not preclude SARS-CoV-2 infection and should not be used as the sole basis for treatment or other patient management decisions. This assay was developed by [employer] and distributed under an Emergency Use Authorization (EUA) granted by the FDA for the qualitative detection of SARS-CoV-2 nucleic acid. Test Performed by [facility], [address] [place] [address] Specimen Source Comment:Nasopharyngeal Swab CT Abdomen Pelvis W Contrast on 020 Patient Name: EVER MCKEON FIN: [place], [place] [id number] ---CT--- Exam Date/Time 05/07/2020 22:36: [address] Abdomen/Pelvis w/ IV Contrast (IV Onl Ordering Physician MD LORRAINE, MARISA del rio [phone] CPT4 Codes 24471 (CT Abdomen/Pelvis w/ IV Contrast (IV Onl), Q9967 (CT ISOVUE 370MG/ML&[id number]&ML&1) Reason For Exam RUQ and RLQ pain [...] 11:03 Ricky, [facility] Incoming Radiology Results From [facility] - 11:09 PM EDT [place], [place] Patient Name: EVER MCKEON ---CT--- Exam Date/Time 05/07/2020 22:36:[address] Abdomen/Pelvis w/ IV Contrast (IV Onl Ordering Physician MD PETERS JAMES Accession Number [id number] CPT4 Codes 63736 (CT Abdomen/Pelvis w/ IV Contrast (IV Onl), Q996 7 (CT ISOVUE 370MG/ML&[id number]&ML&1) Reason For Exam RUQ and RLQ pain [...] Dictated: 05/07/2020 10:53 pm Dictating Physician: MD BEODLLA WENDELL Signed Date and Time: 05/07/2020 11:08 pm Signed by: MD BEDOLLA WENDELL Transcribed Date and Time: 05/07/2020 11:03 Hemogram (CBC) on 05-07-2020 Erythrocyte distribution 14.0 % 11.5 - 14.5 % [facility]- [place], width (RBC) [Ratio] [place] Hematocrit (Bld) [Volume 37.2 % 35 - 47 % [facility]- [place], fraction] [place] Hemoglobin (Bld) 12.6 g/dL 11.7 - 16 g/dL [facility], [Mass/Vol] [place] Interpretation and review Abnormal [facility], of laboratory results [place] MCH (RBC) [Entitic mass] 30.3 pg 26 - 34 pg [place], [place] MCHC (RBC) [Mass/Vol] 34.0 % 32 - 36 % [place], [place] MCV (RBC) [Entitic vol] 89.1 fL 79 - 98 fL [place], [place] Platelet mean volume (Bld) 8.4 fL 7.4 - 10.4 fL [facility], [Entitic vol] [place] Platelets (Bld) [#/Vol] 325 10*3/uL 140 - 440 [facility], 10*3/uL [place] RBC (Bld) [#/Vol] 4.18 10*6/uL 3.8 - 5.2 [facility], 10*6/uL [place] WBC (Bld) [#/Vol] 17.7 10*3/uL High 3.6 - 10.7 [facility], 10*3/uL [place] Test Performed by [facility], [place] [address] [place] [address] Hepatic Function Panel on 05-07-2020 Albumin [Mass/Vol] 3.0 g/dL Low 3.5 - 5 g/dL [place], [place] ALP [Catalytic activity/Vol] 181 U/L High 38 - 126 U/L [place], [place] ALT [Catalytic activity/Vol] 21 U/L 0 - 34 U/L [place] Comment on above: The ALT test is performed by an updated assay method. Please note that the referen ce intervals have been changed and are now sex spec ific. AST [Catalytic activity/Vol] 37 U/L 15 - 46 U/L [place] Bilirubin Ql (U) 1.1 mg/dL 0.2 - 1.3 mg/dL [place], [place] Bilirubin.direct [Mass/Vol] 0.0 mg/dL 0 - 0.3 mg/dL [place] Interpretation and review of Abnormal [place] laboratory results Protein [Mass/Vol] 7.3 g/dL 6.3 - 8.2 g/dL [place], [place] Lipase on 05-07-2020 Lipase [Catalytic activity/Vol] 111 U/L 23 - 300 U/L [place] Other on 05-07-2020 Test Performed by [facility], [place] [address] Interpretation and review of Abnormal [place], [place] laboratory results Test Performed by [facility], [place] [address] Test Performed by [facility], [place] [address] Troponin on 05-07-2020 Troponin I.cardiac [Mass/Vol] ng/mL 0 - 0.034 n g/mL [place], [place] Comment on above: . Urinalysis on 05-07-2020 Appearance (U) Clear Clear [place], [place] Comment on above: . Bacteria, UA Few Abnormal Negative /[HPF] [place], [place] Comment on above: . Bilirubin Urine Negative Negative mg/dL [place], [place] Comment on above: . Color (U) Yellow Lt. Yellow [place] Comment on above: . Glucose, Ur Normal Normal (<70) mg/dL [place], [place] Comment on above: . Hyaline Casts, UA Negative Negative /[LPF] [place], [place] Comment on above: . Interpretation and review of Abnormal [place] laboratory results Ketones Ql (U) Negative Negative mg/dL [place], [place] Comment on above: . LEUKOCYTES, UA 25 Abnormal Negative Mario/uL [place], [place] Comment on above: . Mucous Threads Few Negative /[LPF] [place] Comment on above: . Nitrite, Urine Negative Negative [place], [place] Comment on above: . Occult Blood,Urine Negative Negative mg/dL [place] Comment on above: . pH (U) 6.5 [pH] [place], [place] Comment on above: . Protein (U) [Mass/Vol] Negative Negative mg/dL [place], [place] Comment on above: . RBC (U) [#/Vol] 0-2 0 - 2 /[HPF] [place], [place] Comment on above: . Specific [place], Urine 1.010 [place], [place] Comment on above: . Squam Epithel, UA 3-5 3 - 5 /[HPF] [place], [place] Comment on above: . Urobilinogen, Urine 12 mg/dL Abnormal Normal (0-1) [place], [place] Comment on above: . WBC, UA 3-5 0 - 5 /[HPF] [place] Comment on above: . Test Performed by [facility], [facility] [address] [place] [address] XR CHEST PORTABLE on 05-07-2020 Patient Name: EVER MCKEON FIN: [place], [place] [id number] ---Diagnostic Radiology--- Exam Date/Time 05/07/2020 21:27:00 EDT Exam CR Chest Portable Orderin g Physician [id number] NEIL OLSEN Accession Number [id number] CPT4 Codes 97442 () Reason For Exam sob, cough and [...] Transcribed Date and Time: 05/07/2020 9:25 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 Comment on above: Result Comment: This test wa s developed and its performance characteristics determined by [facility]'s [facility] [place]. This test has been authorized by FDA [...] 2019. 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 Author Type: Physician Corpsman Type: ED Provider Notes Filed: 04/26/2020 9:20 [...] no difficulty breathing. 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 PAST MEDICAL HISTORY Diagnosis Date [...] 0 02-15-2019 Anisocytosis Ql (Bld) 1+ Normal [facility] Comment on above: Performed By: #### CBCWD ### # [facility] [address] [place] [address] Hypochromia 1+ Normal [facility] Comment on above: Performed By: #### CBCWD ### # [facility] [address] [place] [address] Microcytic 1+ Normal [facility] Comment on above: Performed By: #### CBCWD ### # [facility] [address] [place] [address] Basophils #/vol (Bld) 0.0 10*3/uL Normal 0.0-0.2 [facility] Comment on above: Performed By: #### CBCWD ### # [facility] r [address] [place] [address] Basophils/100 WBC (Bld) 1.1 % Normal [facility] Comment on above: Performed By: #### CBCWD ### # [facility] [address] [place] [address] Eosinophils #/vol (Bld) 0.2 10*3/uL Normal 0.0-0.7 [facility] Comment on above: Performed By: #### CBCWD ### # [facility] [address] [place] [address] Eosinophils/100 WBC (Bld) 5.6 % Normal [facility] Comment on above: Performed By: #### CBCWD ### # [facility] [address] [place] [address] Erythrocyte distribution 17.3 % Critically high 11.5-14.5 [facility] width Ratio (RBC) Center Comment on above: Performed By: #### CBCWD ### # [facility] [address] [place] [address] Hematocrit Volume Fraction (Bld) 29.4 % Low 37.0-47. 0 [facility] Comment on above: Performed By: #### CBCWD ### # [facility] [address] [place] [address] Hemoglobin mass conc (Bld) 9.6 g/dL Low 12.0-16.0 [facility] Comment on above: Performed By: #### CBCWD ### # [facility] [address] [place] [address] Lymphocytes #/vol (Bld) 1.2 10*3/uL Normal 1.0-4.8 [facility] Comment on above: Performed By: #### CBCWD ### # [facility] [address] [place] [address] Lymphocytes/100 WBC (Bld) 27.8 % Normal [facility] Comment on above: Performed By: #### CBCWD ### # [facility] [address] [place] [address] MCH Entitic mass (RBC) 24.2 pg Low 27.0-31.3 [facility] Comment on above: Performed By: #### CBCWD ### # [facility] [address] [place] [address] MCHC mass conc (RBC) 32.7 % Low 33.0-37.0 [facility] Comment on above: Performed By: #### CBCWD ### # [facility] [address] [place] [address] MCV Entitic volume (RBC) 74.1 fL Low 82.0-100.0 [facility] Comment on above: Performed By: #### CBCWD ### # [facility] [address] [place] [address] Monocytes #/vol (Bld) 0.5 10*3/uL Normal 0.2-0.8 [facility] Comment on above: Performed By: #### CBCWD ### # [facility] [address] [place] [address] Monocytes/100 WBC (Bld) 12.4 % Normal [facility] Comment on above: Performed By: #### CBCWD ### # [facility] [address] [place] [address] Neutrophils #/vol (Bld) 2.2 10*3/uL Normal 1.4-6.5 [facility] Comment on above: Performed By: #### CBCWD ### # [facility] [address] [place] [address] Neutrophils/100 WBC (Bld) 53.1 % Normal [facility] Comment on above: Performed By: #### CBCWD ### # [facility] [address] [place] [address] Platelets #/vol (Bld) 154 10*3/uL Normal 130-400 [facility] Comment on above: Performed By: #### CBCWD ### # [facility] [address] [place] [address] RBC #/vol (Bld) 3.97 10*6/uL Low 4.20-5.40 [facility] Comment on above: Performed By: #### CBCWD ### # [facility] [address] [place] [address] WBC #/vol (Bld) 4.2 10*3/uL Low 4.8-10.8 [facility] Comment on above: Performed By: #### CBCWD ### # [facility] [address] [place] [address] Comprehensive Metabolic Panel on 2018 Albumin mass conc 3.6 g/dL Normal 3.5-4.6 [facility] Comment on above: Result Comment: Effective: New reference range for this analyte has been established. Performed By: #### CMP #### [facility] [address] [place] [address] ALP enzyme act/vol 189 U/L Critically high 40-130 [facility] Comment on above: Performed By: #### CMP #### [facility] [address] [place] [address] ALT enzyme act/vol 49 U/L Critically high 0-33 [facility] Comment on above: Performed By: #### CMP #### [facility] [address] [place] [address] Anion gap molar conc 9 mmol/L Normal 9-15 [facility] Comment on above: Result Comment: Effective: New reference range for this analyte has been established. Performed By: #### CMP #### [facility] [address] [place] [address] AST enzyme act/vol 51 U/L Critically high 0-35 [facility] Comment on above: Performed By: #### CMP #### [facility] [address] [place] [address] Bilirubin mass conc 0.3 mg/dL Normal 0.2-0.7 [facility] Comment on above: Result Comment: Effective: New reference range for this analyte has been established. Performed By: #### CMP #### [facility] [address] [place] [address] Calcium mass conc 8.9 mg/dL Normal 8.5-9.9 [facility] Comment on above: Result Comment: Effective: New reference range for this analyte has been established. Performed By: #### CMP #### [facility] [address] [place] [address] Chloride molar conc 107 mmol/L Normal 95-107 [facility] Comment on above: Result Comment: Effective: New reference range for this analyte has been established. Performed By: #### CMP #### [facility] [address] [place] [address] CO2 molar conc 25 mmol/L Normal 20-31 [facility] Comment on above: Result Comment: Effective: New reference range for this analyte has been established. Performed By: #### CMP #### [facility] [address] [place] [address] Creatinine mass conc 0.42 mg/dL Low 0.50-0.90 [facility] Comment on above: Performed By: #### CMP #### [facility] [address] [place] [address] GFR/1.73 sq M predicted among mL/min/{1.73_m2} Normal >60 [facility]/area nter (S/P/Bld) Comment on above: Result Comment: >60 mL/min/1 .73m2 EGFR, calc. for ages 18 and older using the MDRD formula (not corrected for weight), is valid for stable renal function. Performed By: #### CMP #### [facility] [address] [place] [address] GFR/1.73 sq M.predicted MDRD mL/min/{1.73_m2} Normal >60 [facility] vol rate/area Center Comment on above: Result Comment: >60 mL/min/1 .73m2 EGFR, calc. for ages 18 and older using the MDRD formula (not corrected for weight), is valid for stable renal function. Performed By: #### CMP #### [facility] [address] [place] [address] Globulin mass conc (S) 3.4 g/dL Normal 2.3-3.5 [facility] Comment on above: Performed By: #### CMP #### [facility] [address] [place] [address] Glucose mass conc 90 mg/dL Normal 70-99 [facility] Comment on above: Result Comment: Effective: New reference range for this analyte has been established. Performed By: #### CMP #### [facility] [address] [place] [address] Potassium molar conc 4.3 mmol/L Normal 3.4-4.9 [facility] Comment on above: Result Comment: Effective: New reference range for this analyte has been established. Performed By: #### CMP #### [facility] [address] [place] [address] Protein mass conc 7.0 g/dL Normal 6.3-8.0 [facility] Comment on above: Result Comment: Effective: New reference range for this analyte has been established. Performed By: #### CMP #### [facility] [address] [place] [address] Sodium molar conc 141 mmol/L Normal 135-144 [facility] Comment on above: Result Comment: Effective: New reference range for this analyte has been established. Performed By: #### CMP #### [facility] [address] [place] [address] Urea nitrogen mass conc 14 mg/dL Normal 6-20 [facility] Comment on above: Performed By: #### CMP #### [facility] [address] [place] [address] Creatine Kinase on 02-15-2019 CK enzyme act/vol 70 U/L Normal 0-170 [facility] Comment on above: Performed By: #### CPK #### [facility] [address] [place] [address] Culture, Blood 2 on 02-15-2019 Culture, Blood 2 ORDERED BY: BRENT YESSI Normal [facility] SOURCE: Blood COLLECTED: 02/15/19 10:51 Center ANTIBIOTICS AT BARRIE.: RECEIVED : 02/15/19 10:53 Culture, Blood 2 FINAL 02/20/19 12:15 No growth after 5 days of incubation. Comment on above: Performed By: #### CXBL2 ### # [facility] [address] [facility] [address] Troponin on 02-15-2019 Troponin I.cardiac mass conc ng/mL Normal 0.000-0.01 [facility] Comment on above: Result Comment: Methodology by Troponin T. Performed By: #### TROP #### [facility] [address] [facility] [address] XR CHEST (2 VW) on 02-15-2019 XR CHEST (2 VW) EXAMINATION: XR CHEST (2 VW) Normal [facility] CLINICAL HISTORY: cough . Ce nter [...] B mass conc (Bld) 12 pg/mL Normal [facility] Comment on above: Result Comment: NT-pro BNP [...] 2006;27:330-337 Performed By: #### BNPPR ### # [facility] [address] [place] [address] Hemoglobin A1c on 01-19-2019 Hemoglobin A1c/Hemoglobin.total mass 5.4 % Normal 4.8- 5.9 [facility] (d) Center Comment on above: Performed By: #### A1C #### [facility] [address] [place] [address] XR LUMBAR SPINE (MIN 4 VIEWS) on 2018 XR LUMBAR SPINE (MIN EXAMINATION: XR LUMBAR SPINE (MIN 4 VIEWS) Nor mal [facility] 4 VIEWS) CLINICAL HISTORY: M54.31 Right [...] HIV 1,2 Combo Antigen/Antibody Negative Normal Negative [facility] Comment on above: Order Comment: CALL doctor L 9994 tel. [phone], Please fax results to [phone] Result Comment: The specimen was non-reactive for [...] ). Performed by BHARATI lozada, [address] [facility] [address] [email or web address], Hugo Garcia do, MD - Lab. Director Glucose on 01-02-2019 Glucose mass conc 93 mg/dL Normal 70-99 [facility] Comment on above: Order Comment: CALL doctor Chin 8055 tel. [phone], Please fax results to [phone] Result Comment: Effective: New reference range for this analyte has been established. Hepatitis Acute Panel on 01-02-2019 Protein mass conc see below Normal [facility] Comment on above: Order Comment: CALL doctor Chin 8055 tel. [phone], Please fax results to [phone] Result Comment: The acute he patitis panel is negative. There is no evidence of acute hepatitis A, B, C. Hepatitis A Antibody (IgM) Interp Non-reactive [facility] Comment on above: Order Comment: CALL doctor Chin 8055 tel. [phone], Please fax results to [phone] Hepatitis B Core Ab IgM Interp Non-reactive [facility] Comment on above: Order Comment: CALL doctor L 8055 tel. [phone], Please fax results to [phone] Hepatitis B Surface Ag Interp Non-reactive [facility] Comment on above: Order Comment: CALL doctor L 8055 tel. [phone], Please fax results to [phone] Hepatitis C Antibody Interp Non-reactive [facility] Comment on above: Order Comment: CALL doctor L 8055 tel. [phone], Please fax results to [phone] Liver Panel on 01-02-2019 Albumin mass conc 4.0 g/dL Normal 3.5-4.6 [facility] Comment on above: Order Comment: CALL doctor Chin 8055 tel. [phone], Please fax results to [phone] Result Comment: Effective: New reference range for this analyte has been established. ALP enzyme act/vol 179 U/L Critically high 40-130 [facility] Comment on above: Order Comment: CALL doctor L 8055 tel. [phone], Please fax results to [phone] ALT enzyme act/vol 50 U/L Critically high 0-33 [facility] Comment on above: Order Comment: CALL doctor L 8055 tel. [phone], Please fax results to [phone] AST enzyme act/vol 63 U/L Critically high 0-35 [facility] Comment on above: Order Comment: CALL doctor L 8055 tel. [phone], Please fax results to [phone] Bilirubin Indirect see below Normal 0.0-0.6 [facility] Comment on above: Order Comment: CALL doctor L 8055 tel. [phone], Please fax results to [phone] Result Comment: Indirect Duarte irubin cannot be calculated since Total Bilirubin and/or Direct Bilirubin is b elow measurable range. Bilirubin mass conc 0.5 mg/dL Normal 0.2-0.7 [facility] Comment on above: Order Comment: CALL doctor L 8055 tel. [phone], Please fax results to [phone] Result Comment: Effective: New reference range for this analyte has been established. Bilirubin.direct mass conc mg/dL Normal 0.0-0.4 M [facility] Comment on above: Order Comment: CALL doctor L 8055 tel. [phone], Please fax results to [phone] Result Comment: Effective: New reference range for this analyte has been established. Protein mass conc 7.5 g/dL Normal 6.3-8.0 [facility] Comment on above: Order Comment: CALL doctor L 8055 tel. [phone], Please fax results to [phone] Result Comment: Effective: New reference range for this analyte has been established. Vital Signs Date Time Vital Sign Value Performing Clinician Facilit y 12-22-2022 SaO2% (BldA) [Mass 93 % PAULO GARCIA Gigi Lopez maira 20:22-0500 fraction] [facility] Comment on above: Performed By: #### [id number] ## ## Gigi [facility],[address] [place] [id number] 11-02-[address] MUSTAPHA WOODWARD MD [facility] ospital 06:59-0500 Location 11-02-[address] MUSTAPHA WOODWARD MD [facility]ital 06:59-0500 Method 11-02-[address] MUSTAPHA WOODWARD [facility] 06:59-0500 [degF] 11-02-2022 Diastolic Blood [address] MUSTAPHA WOODWARD MD [facility] 06:59-0500 Pressure Non-Invasive 11-02-2022 Heart rate 78 /min DR MUSTAPHA WOODWARD MD [facility] 06:59-0500 11-02-2022 Mean blood pressure 97 mm[Hg] DR MUSTAPHA WOODWARD MD [facility] 06:59-0500 11-02-2022 Respiratory rate 18 /min DR MUSTAPHA WOODWARD [facility] 06:59-0500 11-02-2022 Systolic Blood [address] MUSTAPHA WOODWARD MD [facility] 06:59-0500 Pressure Non-Invasive 11-02-[address] MUSTAPHA WOODWARD MD [facility] 00:54-0500 [degF] 11-02-2022 Diastolic Blood [address] MUSTAPHA WOODWARD MD [facility] 00:54-0500 Pressure Non-Invasive 11-02-2022 Heart rate 68 /min DR MUSTAPHA WOODWARD MD [facility] 00:54-0500 11-02-2022 Systolic Blood [address] MUSTAPHA WOODWARD MD [facility] 00:54-0500 Pressure Non-Invasive 11-01-[address] MUSTAPHA WOODWARD MD [facility] 21:140500 [degF] 11-01-2022 Diastolic Blood [address] MUSTAPHA WOODWARD MD [facility] 21:140500 Pressure Non-Invasive 11-01-2022 Heart rate 64 /min DR MUSTAPHA WOODWARD MD [facility] 21:140500 11-01-2022 Respiratory rate 18 /min DR MUSTAPHA WOODWARD MD [facility] 21:140500 11-01-2022 Systolic Blood [address] MUSTAPHA WOODWARD MD [facility] 21:140500 Pressure Non-Invasive 11-01-2022 Respiratory rate 17 /min DR [facility] WOODWARD [facility] [facility] [id number] 10-31-2022 Body height 165.[address] MUSTAPHA WOODWARD MD [facility] 01:250500 10-31-2022 Body weight 128.[address] MUSTAPHA WOODWARD MD [facility] 01:250500 10-31-2022 Body weight 47.29 kg/m2 DR MUSTAPHA WOODWARD MD [facility] 01:250500 10-07-2022 Body temperature 98.42 BENSON GARCIA MD [facility] 11:0500 [degF] 10-07-2022 Diastolic Blood 54 1 BENSON GARCIA MD [facility] 11:050500 Pressure Non-Invasive 10-07-2022 Heart rate 78 /min BENSON GARCIA MD [facility] 11:05-0500 10-07-2022 Reason For Taking BENSON GARCIA MD [facility] 11:05-0500 VItal Signs 10-07-2022 Respiratory rate 18 /min BENSON GARCIA MD [facility] 11:05-0500 10-07-2022 Systolic Blood 100 1 BENSON GARCIA MD [facility] spital 11:05-0500 Pressure Non-Invasive 10-07-2022 Body temperature 98.6 [degF] BENSON GARCIA MD [facility] 02:52-0500 10-07-2022 Diastolic Blood 68 1 BENSON GARCIA MD [facility] 02:52-0500 Pressure Non-Invasive 10-07-2022 Heart rate 71 /min BENSON GARCIA MD [facility] ital 02:52-0500 10-07-2022 Respiratory rate 18 /min BENSON GARCIA MD [facility] 02:52-0500 10-07-2022 Systolic Blood 133 1 BENSON GARCIA MD [facility] spital 02:52-0500 Pressure Non-Invasive 10-06-2022 Body temperature 97.88 BENSON GARCIA MD [facility] 22:45-0500 [degF] 10-06-2022 Diastolic Blood 67 1 BENSON GARCIA MD [facility] 22:45-0500 Pressure Non-Invasive 10-06-2022 Heart rate 70 /min BENSON GARCIA MD [facility] ital 22:45-0500 10-06-2022 Reason For Taking BENSON GARCIA MD [facility] 22:45-0500 VItal Signs 10-06-2022 Respiratory rate 18 /min BENSON GARCIA MD [facility] 22:45-0500 10-06-2022 Systolic Blood 118 1 BENSON GARCIA MD [facility] spital 22:45-0500 Pressure Non-Invasive 10-06-2022 Reason For Taking BENSON GARCIA MD [facility] 14:53-0500 VItal Signs 2022 Heart rate 85 /min BENSON GARCIA MD [facility] ital 22:50-0500 2022 Heart rate 86 /min BENSON GARCIA MD [facility] ital 18:57-0500 2022 Heart rate 90 /min BENSON GARCIA MD [facility] ital 15:12-0500 2022 Body temperature 97.16 BENSON GARCIA MD [facility] 03:08-0500 [degF] 10-04-2022 Body temperature 98.6 [degF] BENSON GARCIA MD [facility] 03:35-0500 10-03-2022 Body height 165 cm BENSON GARCIA MD [facility] ital 11:32-0500 10-03-2022 Body weight 120.6 kg BENSON GARCIA MD [facility] ital 11:32-0500 10-03-2022 Body weight 44.3 kg/m2 BENSON GARCIA MD [facility] ital 11:32-0500 08-11-2022 Body mass index 37.59 kg/m2 Donte SAM 10:0400 (BMI) [Ratio] Work Phone: 10-18-2022 Body temperature 97.81 Donte Caruso MD [facility] 10:-0400 [degF] Work Phone: 08-11-2022 Body weight 108.86 kg Donte Caruso MD [facility] 10:-0400 Work Phone: 08-11-2022 Diastolic blood 75 mm[Hg] Donte [facility] 10:0400 pressure Work Phone: 08-11-2022 Heart rate 97 /min Donte Caruso MD [facility] 10:0400 Work Phone: 08-11-2022 Respiratory rate 24 /min Donte Caruso MD [facility] A 10:0400 Work Phone: 08-11-2022 SaO2% (BldA) [Mass 97 % Donte Caruso MD [employer] 10:0400 fraction] Work Phone: 08-11-2022 Systolic blood 115 mm[Hg] Don[facility] 10:0400 pressure Work Phone: 08-23-2021 Diastolic [...] mass index 29.6 kg/m2 Chevy Whittington [facility] 19:58-0400 (BMI) [Ratio] Work Phone: Work Phone: 08-23-2021 Body temperature 97.5 [degF] Chevy Whittington MD [facility] 19:58-0400 Work Phone: W ork Phone: 08-23-2021 Body weight 85.73 kg Chevy Whittington [facility] 19:58-0400 Work Phone: W ork Phone: 07-18-2020 BP Diastolic 87 mm[Hg] Nadine Gaxiola [facility]- 10:40-0400 [place], 07-18-2020 BP Systolic 139 mm[Hg] [employer] [facility]- 10:40-0400 [place], 07-18-2020 Pulse (Heart Rate) 80 /min Nadine Carranza [facility]- 10:40-0400 [place], 07-18-2020 Pulse Oximetry 96 % Nadine Carranza [employer] h- 10:40-0400 [place], 07-18-2020 Respiratory Rate 18 /min Nadine Carranza [facility] lt- 10:40-0400 [place], 07-18-2020 BMI (Body Mass 37.59 kg/m2 Nadine Carranza [employer]- 08:31-0400 Index) [place], 07-18-2020 Body Temperature 97.39 Nadine Singh [facility]- 08:31-0400 [degF] [place], 07-18-2020 Body weight 108.86 kg [employer] [facility]- 08:31-0400 [place], 07-18-2020 Height 170.2 cm Nadine [employer]- 08:310400 [place], 05-22-2020 Body Temperature 97.39 [facility] - 11:46-0400 [degF] [place], 05-22-2020 BP Diastolic 51 mm[Hg] [facility] 11:46-0400 [place], 05-22-2020 BP Systolic 124 mm[Hg] [facility]- 11:460400 [place], 05-22-2020 Pulse (Heart Rate) 89 /min [facility]- 11:460400 [place], 05-22-2020 Pulse Oximetry 96 % [facility] 11:460400 [place], 05-22-2020 Respiratory Rate 18 /min [facility]- 11:46-0400 [place], 05-22-2020 BMI (Body Mass 42.32 kg/m2 [facility] - :0 Index) [place], 05-22-2020 Body weight 122.56 kg [facility] 04:0400 [place], 05-15-2020 Height 170.2 cm [facility]- 17:020400 [place], 05-11-2020 Body Temperature 97.3 [degF] Marisa Carranza [facility]- 15:0400 [place], 05-11-2020 BP Diastolic 47 mm[Hg] [facility]- 15:0400 [place], 05-11-2020 BP Systolic 96 mm[Hg] [facility]- 15:0400 [place], 05-11-2020 Pulse (Heart Rate) 83 /min [facility] 15:0400 [place], 05-11-2020 Pulse Oximetry 93 % Marisa Peters [facility] h- 15:0400 [place], 05-11-2020 Respiratory Rate 14 /min Marisa Carranza [facility] lt- 15:0400 [place], 05-11-2020 BMI (Body Mass 39.37 kg/m2 [facility]isa [facility] h- 03:10-0400 Index) [place], [place] 05-11-2020 Body weight 114.03 kg Marisa [facility]- 03:0400 [place] 05-08-2020 Height 170.2 cm Marisa [facility]- 14:29-0400 [place] 06-08-2019 BP Diastolic 68 mm[Hg] [facility] 14:39-0400 [place] 06-08-2019 BP Systolic 107 mm[Hg] [facility] 14:39-0400 [place] 06-08-2019 Pulse (Heart Rate) 79 /min Cuco Carranza [facility]th- 14:39-0400 [place] 06-08-2019 Pulse Oximetry 94 % Cuco Carranza [facility]- 14:39-0400 [place] 06-08-2019 Respiratory Rate 18 /min Cuco Carranza [facility] h- 14:39-0400 [place] 06-08-2019 BMI (Body Mass 40.57 kg/m2 [facility] 12:0400 Index) [place], [place] 06-08-2019 Body Temperature 98.29 Cuco Carranza [facility]- 12:04-0400 [degF] [place] 06-08-2019 Body weight 117.48 kg [facility] 12:0400 [place] 06-08-2019 Height 170.2 cm [facility] 12:0400 [place] Encounters Encounter Date Encounter Type Care Provider Facility Start: 12-23-2022 Evaluation and CONSTANTINE JACOBSON [facility] End: 01-01-2023 management of inpatient Hospital Start: 11-19-2022 ambulatory LYNDSEY JARRELL [place] Start: 11-17-2022 ambulatory LOIS MELGAR [facility] End: 11-18-2022 Hospital Start: 11-16-2022 Telephone [...] inpatient Start: 10-31-[address] [facility] End: 11-02-2022 management of Work P giovanni: inpatient Start: 10-30-2022 Emergency department PAULO GARCIA [facility] End: 10-31-2022 patient visit Hospital Start: 10-15-2022 ambulatory [facility] End: 10-16-2022 [facility] Start: 10-03-2022 Evaluation and BENSON GARCIA Facility:A End: 10-07-2022 management of inpatient Start: 10-03-2022 Evaluation and BENSON GARCIA [facility] End: 10-07-2022 management of Work P giovanni: inpatient Start: 10-03-2022 Emergency department SAW KEARNEY [facility] End: 10-03-2022 patient visit Hospital Start: 08-11-2022 Emergency department DONTE CARUSO [facility] End: 08-11-2022 patient visit Start: 08-11-2022 Emergency department Donte davila Emergency End: 08-11-2022 patient visit Work Phone: Dept Comment on above: Bronchitis (Primary Dx); Throat pain Start: 06-12-2022 Evaluation and CALVIN URBAN [facility] End: 06-15-2022 management of inpatient Start: 05-06-2022 Emergency department DAYO BELL Facility [facility] End: 05-06-2022 patient visit Start: 08-23-2021 Emergency department CHEVY Sam [facility] End: 08-24-2021 patient visit Start: 08-23-2021 Emergency department Chevy peugero Emergency Dept End: 08-24-2021 patient visit Work Phone: Comment on above: Anxiety state (Primary Dx); Shortness of breath; Shaking Start: 08-08-2020 Subsequent hospital [facility] End: 08-08-2020 visit by physician Work Phone: MR Morales Comment on above: Arrived Start: 07-18-2020 Subsequent hospital Nadine Gaxiola [facility] [address] End: 07-18-2020 visit by physician Work Phone: En doscopy Comment on above: Arrived Start: 07-03-2020 Subsequent [facility] [address] H MRI End: 07-03-2020 visit by physician Work Phone: Comment on above: Light stools; Other cirrhosis of liver (HC C) Start: 05-15-2020 Evaluation and Luis Avalos [facility] 5W TELEMET RY End: 05-22-2020 management of [...] above: Arrived Start: 02-15-2019 [facility]: 02-15-2019 patient visit Center Start: 01-19-2019 Patient encounter procedure JAY KINGSTON [facility] End: 01-22-2019 Center Start: 10-09-2018 [facility] Start: 08-27-2018 Emergency department [facility] patient visit Procedures Date Procedure Procedure Detail Performing Clin ician Start: 12-23-2022 Urinalysis PAULO GARCIA Comment on above: Result Comment: URINALYSIS Performed By: #### [id number] ## ##[facility],[address] [place] [address] Start: 11-17-2022 Urinalysis PAULO GARCIA Comment on above: Result Comment: URINALYSIS Performed By: #### [id number] ## ## [facility],[address] [place] [address] Start: 10-30-2022 Urinalysis PAULO GARCIA Comment on above: Result Comment: URINALYSIS Performed By: #### [id number] ## ## [facility],[address] [place] [address] Start: 08-11-2022 Radiologic exam chest single view [...] troponin quantitative Moises Subichin Work Phone: [phone] Start: 05-22-2020 BASIC METABOLIC PANEL W/ REFLEX [...] Cell count misc body fluids Ta ranjot Radha w/differential count Work Phone: Start: 05-20-2020 US [...] Maria Bobda each specimen Work Phone: [phone] Start: 05-20-2020 Smr prim src gram/giemsa stain bct Taralexa Bobda fungi/cell Work Phone: Start: 05-20-2020 TOTAL PROTEIN, FLUID Luz Maria Bobda Work Phone: [phone] Start: 05-20-2020 ADD ON LAB TEST Luz [...] Work Phone: Start: 05-15-2020 Assay of lactate oWlf Drew Work Phone: Start: 05-15-2020 Radiologic exam [...] Start: 05-15-2020 Assay of lipase Aysha D Kathleenel l Work Phone: Start: 05-15-2020 Basic metabolic [...] view Neil U Sanchez Work Phone: [phone] Start: 05-07-2020 Assay of lipase Neil U Sanchez Work Phone: Start: 05-07-2020 Assay of troponin quantitative Neil U Sanchez Work Phone: Start: 05-07-2020 Basic metabolic panel calcium total Neil U Sanchez Work Phone: Start: 05-07-2020 Blood count complete automated Neil U Sanchez Work Phone: Start: 05-07-2020 C-reactive protein Neil U Sanchez Work Phone: [phone] Start: 05-07-2020 COVID-19 Neil U Sanchez Work Phone: [phone] Start: 05-07-2020 Hepatic function panel Neil U [...] on above: Performed By: #### CXBL #### [facility] [address] [place] [address] Start: 02-15-2019 Assay of troponin quantitative JAY KINGSTON Start: 02-15-2019 Blood count complete auto&auto difrntl wbc JAY LUISJACOB Start: 02-15-2019 BRAIN NATRIURETIC PEPTIDE FÉLIX Y VASHTI Start: 02-15-2019 Comprehensive metabolic panel JAY CAPJACOB Start: 02-15-2019 Creatine kinase total JAY CA DANII Start: 02-15-2019 Ecg routine ecg w/least 12 lds w/i&r JAY VASHTI Start: 01-19-2019 Radex spine lumbosacral minimum 4 views JAY VASHTI Plan of Treatment Date Care Activity Detail Author Start: DTaP/Tdap/Td vaccine DTaP/Tdap/Td vaccine (2 - S [facility] 06-09-2032 (2 - Td or Tdap) Td or Tdap) Start: Urine microalbumin DTAP,TDAP,TD (2 - Td or [facility] 06-09-2032 profile Tdap) Start: Lipid panel Lipids [facility] 06-09-2027 Start: DIABETES SCREEN DIABETES SCREEN [facility] 06-15-2025 Start: Diabetes screen Diabetes screen [facility] 06-09-2025 Start: Depression Monitoring Depression Monitoring [facility] 06-05-2023 Start: 08-13-2022 Patient encounter 08/13/2022 Office Visit [facility] Medical End: 08-13-2022 procedure Internal Medicine [facility] Internal Drew, Tim, EMPLOYEE COUNSELOR - Medici ne GRAPHICS EDITOR [address] [facility] [address] [place] [address] Start: Influenza vaccination INFLUENZA (#1) [facility] 06-25-2022 Start: Screening for [facility] 06-08-2022 malignant neoplasm of colon Start: Influenza vaccination Flu vaccine (#1) [facility] 05-25-2022 Start: Diabetes screen Diabetes screen [place], [place] 01-18-2022 Start: Influenza vaccination Flu vaccine (#1) [facility] 06-25-2021 Work Phone: Start: Creatinine Creatinine monitoring [facility] [place] 05-22-2021 measurement Start: Potassium monitoring Potassium monitoring [place], [place] 05-22-2021 Start: Breast cancer screen Breast cancer screen [place], [place] 05-17-2021 Start: Screening for Breast cancer screen [facility] 05-17-2021 malignant neoplasm of breast Start: 08-21-2020 Virtual Visit 08/21/2020 Virtual Visit [facility] End: 08-21-2020 Gastroenterology Tierra Denise PA-C [address] [place] [address] [phone] Start: 08-01-2020 Virtual Visit 08/01/2020 Virtual Visit [facility] End: 08-01-2020 Gastroenterology Tierra Denise PA-C [address] [place] [address] [phone] Start: 07-18-2020 Appointment 07/18/2020 Appointment IP [facility] End: 07-18-2020 Unit Nadine Gaxiola MD [address] [facility] [address] [place] [address] Start: Influenza vaccination Flu vaccine (#1) [facility] [place] 06-25-2020 Start: 05-29-2020 Basic metabolic 2000 Basic Metabolic Panel Lab [place] End: 05-22-2021 panel Routine Hypokalemia Sepsis without acute organ dysfunction, due to unspecified organism (HCC) Expected: 05/29/2020, Expires: 05/22/2021 Comment on above: Expected: 05/29/2020, s: 05/22/2021 Start: 05-29-2020 CBC CBC Lab Routine Other elevated white [place] End: 05-22-2021 blood cell (WBC) count Sepsis wi thout acute organ dysfunction, due to unspecified organism (HCC) Expec dori: 05/29/2020, Expires: 05/22/2021 Comment on above: Expected: 05/29/2020, s: 05/22/2021 Start: 05-29-2020 Procalcitonin Procalcitonin Lab Routine [place], [place] End: 05-22-2021 Sepsis without acute organ dysfunction, due to unspecified organism (HCC) Expected: 05/29/2020, Expires: 05/22/2021 Comment on above: Expected: 05/29/2020, s: 05/22/2021 Start: 05-29-2020 Virtual Visit 05/29/2020 Virtual Visit [facility] Intrinsic-ID End: 05-29-2020 Internal Medicine Frida, [facility] Delia Morales MD [address] [place] [address] [phone] Start: 05-17-2020 CBC CBC Lab Routine [facility] [place] End: 05-11-2021 right kidney, initial encounter Expected: 05/17/2020, Expires: 05/11/2021 Comment on above: Expected: 05/17/2020, s: 05/11/2021 Start: 08-22-2019 Office Visit 08/22/2019 Office Visit [facility] End: 08-22-2019 Internal Medicine [facility] Bushra Harkins, EMPLOYEE COUNSELOR - GRAPHICS EDITOR [address] [place] [address] Start: 08-10-2019 [facility]id [facility] Start: 08-10-2019 Lipid screen [facility] Start: 06-25-2019 Influenza vaccination Flu vaccine (#1) [facility] Start: 06-23-2019 Office Visit 06/23/2019 Office Visit Gastro enterology [facility] End: 06-23-2019 Gastroenterology Simi Navarrete, EMPLOYEE COUNSELOR - GRAPHICS EDITOR [address] [address] Start: 2018 Colon cancer screen Colon cancer screen [facility] colonoscopy colonoscopy Start: 2018 Shingles Vaccine (1 Shingles Vaccine (1 of [facility] of 2) 2) Start: 2018 SHINGRIX VACCINE (1 SHINGRIX VACCINE (1 of [facility] of 2) 2) Start: 2013 COLOGUARD (FIT-DNA) [facility]FIT-DNA) [facility] Start: 2013 [facility] Start: 2013 COLORECTAL CANCER COLORECTAL CANCER [facility] SCREENING SCREENING Start: [address] [facility] Start: 2013 FECAL OCCULT BLOOD FECAL [facility]CCULT BLOOD [facility] Start: 2013 LIPID SCREEN [facility]ID SCREEN [facility] Start: 2013 Screening for [facility] malignant neoplasm of colon Start: 2013 SIGMOIDOSCOPY [facility] Start: 2008 Mammography MAMMOGRAM [facility] Start: 1998 HPV TESTING HPV TESTING [facility] Start: 1998 Screening for [facility] malignant neoplasm of cervix Start: 1989 Cervical cancer Cervical cancer screen [facility] Start: 1989 PAP TESTING PAP TESTING [facility] Start: 1989 Screening for [facility] malignant neoplasm of cervix Start: 1987 DTaP/Tdap/Td vaccine DTaP/Tdap/Td vaccine (1 [place] (1 - Tdap) - Tdap) Start: 1987 Hepatitis B vaccine Hepatitis B vaccine (1 [facility] (1 of 3 - Risk 3-dose of 3 - Risk 3-dose series) series) Start: 1986 HIV SCREENING HIV SCREENING [facility] ic Start: 1980 COVID-19 Vaccine (1) COVID-19 Vaccine (1) [facility] Work Phone: Start: 1974 PNEUMOCOCCAL (1 - PNEUMOCOCCAL (1 - PCV) [facility] PCV) Start: 1974 Pneumococcal 0-64 Pneumococcal 0-64 years [facility] A years Vaccine (1 - Vaccine (1 - PCV) PCV) Start: 1974 Pneumococcal 0-64 Pneumococcal 0-64 years [place] years Vaccine (1 of 1 Vaccine (1 of 1 - - PPSV23) PPSV23) Start: 1974 Pneumococcal 0-64 Pneumococcal 0-64 years [facility] A years Vaccine (1 of 2 Vaccine (1 of 2 - Work Adolfo ne: - PPSV23) PPSV23) Start: 1969 HEPATITIS A (1 of 2 - HEPATITIS A (1 of 2 - Cl [facility] Risk 2-dose series) Risk 2-dose series) Start: 1969 Hepatitis A vaccine Hepatitis A vaccine (1 [facility] (1 of 2 - Risk 2-dose of 2 - Risk 2-dose series) series) Start: 04-05-1969 COVID-19 Vaccine (#1) COVID-19 Vaccine (#1) [employer] Albumin, fluid Albumin, fluid Lab [place] End: 05-20-2020 Routine One Time for 1 Occurrences starting 05/20/2020 until 05/20/2020 Comment on above: One Time for 1 Occurrences s tarting 05/20/2020 until 05/20/2020 Basic metabolic 2000 panel Basic Metabolic Panel Lab Routine [place] Daily until discontinued startin g 05/08/2020, 4 completed Comment on above: Daily until discontinued sta rting 05/08/2020, 4 completed Basic Metabolic Panel w/ Basic Metabolic Panel w / Reflex [place] Reflex to MG to MG Lab Routine Daily until discontinued starting 05/16/2020, 7 completed Comment on above: Daily until discontinued sta rting 05/16/2020, 7 completed Blood glucose - POCT Blood glucose - POCT [place] End: 06-08-2019 of Care Testing Routine One Time for 1 Occurrences starting 06/08/2019 until 06/08/2019 Comment on above: One Time for 1 Occurrences s tarting 06/08/2019 until 06/08/2019 Body fluid cell count Body fluid cell count [facility], End: 05-20-2020 with differential with differential Lab [place] Routine One Time for 1 Occurrences starting 05/20/2020 until 05/20/2020 Comment on above: One Time for 1 Occurrences s tarting 05/20/2020 until 05/20/2020 CBC Auto Differential CBC Auto Differential Lab [place] End: 05-19-2020 Routine Daily for 10 Occurrences starting 05/10/2020 until 05/19/2020, 2 completed Comment on above: Daily for 10 Occurrences sta rting 05/10/2020 until 05/19/2020, 2 completed CBC Auto Differential CBC Auto Differential Lab [place] End: 06-17-2020 Routine Daily for 30 Occurrences starting 05/19/2020 until 06/17/2020, 3 completed Comment on above: Daily for 30 Occurrences sta rting 05/19/2020 until 06/17/2020, 3 completed CBC Auto Differential CBC Auto Differential Lab [place] Routine 05/22/2020 2:43 AM EDT Culture, Anaerobic and Culture, Anaerobic and Me [place], [place] Aerobic Aerobic Microbiology Routine 05/20/2020 12:15 PM EDT Culture, Blood 1 Culture, Blood 1 [place], [place] Microbiology STAT 05/08/2020 5:59 AM EDT Culture, Blood 2 Culture, Blood 2 [place], [place] Microbiology STAT 05/08/2020 6:04 AM EDT Culture, Body Fluid Culture, Body Fluid [place], [place] Microbiology Routine 05/20/2020 12:15 PM EDT Culture, Respiratory Culture, Respiratory [place] End: 05-16-2020 Microbiology Routine One Time for 1 Occurrences starting 05/16/2020 until 05/16/2020 Comment on above: One Time for 1 Occurrences s tarting 05/16/2020 until 05/16/2020 Glucose, body fluid Glucose, body fluid Lab [place] End: 05-20-2020 Routine One Time for 1 Occurrences starting 05/20/2020 until 05/20/2020 Comment on above: One Time for 1 Occurrences s tarting 05/20/2020 until 05/20/2020 Hemoglobin and Hematocrit, Hemoglobin and Hemato crit, [place] Blood Blood Lab Routine 05/09/2020 2:51 AM EDT Incentive spirometry Incentive spirometry RT [place], [place] Respiratory Care Routine Every 2hr while awake until discontinued starting 05/21/2020 Comment on above: Every 2hr while awake until discontinued starting 05/21/2020 Initiate Oxygen Therapy Initiate Oxygen Therapy Protocol [place], [place] Protocol Respiratory Care Routine Daily until discontinued starting 05/08/2020 Comment on above: Daily until discontinued sta rting 05/08/2020 Lactate dehydrogenase, Lactate dehydrogenase, [facility], End: 05-20-2020 body fluid body fluid Lab Routine [place] One Time for 1 Occurrences starting 05/20/2020 until 05/20/2020 Comment on above: One Time for 1 Occurrences s tarting 05/20/2020 until 05/20/2020 Microscopic observation GRAM STAIN Microbiology [facility], End: 05-16-2020 Gram stain Nom (Unsp Routine One Time for 1 [place] spec) Occurrences starting 05/16/2020 until 05/16/2020 Comment on above: One Time for 1 Occurrences s tarting 05/16/2020 until 05/16/2020 Oxygen therapy Initiate Oxygen Therapy Protocol Respiratory [place], [place] Care Routine Daily until discont inued starting 05/16/2020 Comment on above: Daily until discontinued sta rting 05/16/2020 , URINE , URINE Lab Add-On [place], [place] End: 05-08-2020 One Time for 1 Occurrences starting 05/08/2020 until 05/08/2020 Comment on above: One Time for 1 Occurrences s tarting 05/08/2020 until 05/08/2020 Protein, body fluid Protein, body fluid Lab [place], [place] End: 05-20-2020 Routine One Time for 1 Occurrences starting 05/20/2020 until 05/20/2020 Comment on above: One Time for 1 Occurrences s tarting 05/20/2020 until 05/20/2020 Pulse Oximetry Spot Pulse Oximetry Spot Check [place], [place] End: 06-08-2019 Check Respiratory Care Routine One Time for 1 Occurrences starting 06/08/2019 until 06/08/2019 Comment on above: One Time for 1 Occurrences s tarting 06/08/2019 until 06/08/2019 Sputum induction Sputum induction Respiratory Ca re Routine [place], [place] Daily until discontinued startin g 05/16/2020 Comment on above: Daily until discontinued sta rting 05/16/2020 Troponin I.cardiac Troponin Lab [facility] [place], [place] End: 05-21-2020 [Mass/Vol] Time for 1 Occurrences starting 05/21/2020 until 05/21/2020 Comment on above: One Time for 1 Occurrences s tarting 05/21/2020 until 05/21/2020 [facility] Immunizations Immunization Date Immunization Notes Care Provider Facility 06-09-2022 tetanus toxoid, reduced Donte Caruso MD [facility] diphtheria toxoid, and Work Phone: acellular pertussis vaccine, adsorbed 10-03-2019 influenza, injectable, Marilynn Trill EMPLOYEE COUNSELOR .GRAPHICS EDITOR [facility] quadrivalent, contains Work Phone: preservative 08-25-2017 influenza nasal, Marilynn Trill EMPLOYEE COUNSELOR.GRAPHICS EDITOR [facility] unspecified formulation Work Phone: 08-25-2017 influenza virus Cuco Guerrier [facility] vaccine, unspecified formulation 08-25-2017 influenza, seasonal, Marilynn Trill EMPLOYEE COUNSELOR.C TEMPLATE REPRODUCTION TECHNICIAN [facility] injectable Work Phone: 08-10-2014 influenza virus Cuco Guerrier [facility] vaccine, unspecified formulation 08-10-2014 influenza virus Marilynn Trill EMPLOYEE COUNSELOR.GRAPHICS EDITOR [facility] vaccine, whole virus Work Phone: Payers Date Payer Category Payer Unknown [facility] xxxxxxx xxxx MEDICAID [id number] 2015-Present [id number] CLAIMS DEPARTMENT [address] [place] [address] 2015 Unknown [facility] xxxxxxx [id number] MEDICAID [id number] 2015-Present [id number] CLAIMS DEPARTMENT [address] [place] [address] 2015 Medicaid [facility] MEDICAID [id number] [facility] MEDICAID [id number] 2015-Present [phone] [address] [place] [address] Medicaid 2015 Unknown [id number] 1968 Unknown [id number] 3.3.579.2. 668 1968 Unknown [id number] [id number] 3.3.579.2. 668 1968 Unknown [id number] 3.3.579.2. 182 1968 Unknown [id number] [id number] 3.3.579.2. 182 1968 Unknown [id number] 2.16.840.1.91987 3.3.579.2. 668 1968 Unknown [id number] [id number] 3.3.579.2. 668 1968 Unknown [id number] 2.16.840.1.24398 3.3.579.2. 627 1968 Unknown [id number] 2.16.840.1.71567 3.3.579.2. 627 1968 Unknown [id number] 2.16.840.1.15390 3.3.579.2. 651 1968 Unknown [id number] 2.16.840.1.40021 3.3.579.2. 651 1968 Unknown [id number] 2.16.840.1.79138 3.3.579.2. 651 1968 Unknown [id number] [id number] 3.3.579.2. 651 Unknown Unknown [id number] Worker's Compensation Social History Date Type Detail Facility Start: 06-08-2019 Tobacco smoking status Former smoker Tere carney [facility] End: 04-26-2020 [facility] Start: 10-25-1986 History of tobacco use Current smoker [facility] End: 09-24-2018 Start: 06-08-2019 Cigarettes smoked Tere Valderrama [facility] End: 04-26-2020 current (pack per day) - Reported Start: 06-08-2019 [facility] intake [facility] Start: 04-20-2019 History SDOH Physical 7 [facility] Activity DPW Start: 04-20-2019 History SDOH Physical 3 [facility] End: 06-05-2022 Activity MPS Start: 04-20-2019 History SDOH Stress 2 Tere Graf [place], [place] Start: 04-20-2019 History SDOH Financial 5 [place] Start: 04-20-2019 History SDOH Food Worry 1 [place] Start: 05-25-2019 Tobacco Comment pt quit 09/2018, off Tere Singh [place], [place] and smoker Start: 05-25-2019 Alcohol Comment Last Drinking 10/2017, [place] h[place] EtoH [place] 20 years, attended AA program 2001 to 2013 Start: 1970 Sex Assigned At Not on file [facility] Start: 04-26-2020 Tobacco use and Never used [place] End: 05-07-2020 exposure Start: 05-07-2020 Alcohol intake [facility] End: 05-16-2020 alcohol (finding) Start: 08-01-2022 Exposure to SARS-CoV-2 Not sure [facility] End: 08-11-2022 (event) Start: 06-17-2020 Alcohol intake Ex-drinker (finding) Tere Singh [place] End: 08-11-2022 Start: 06-17-2020 Tobacco Comment pt quit 09/2018, off Adey Hea [facility]- [place], [place] and on smoker Start: 06-17-2020 Alcohol Comment Last Drinking May [facility], [place] 2018, hx EtoH for 20 [...] Phone: Tobacco smoking status No Smoking Status [facility] Entered Work Phone: Sex Assigned At Female Diana Jace sorensen Start: 04-26-2020 Alcohol intake Current drinker of Rajesh farah alcohol (finding) Start: 04-26-2020 Tobacco Comment quit 17 months ago Rajesh farah Start: 07-19-2017 Alcohol Comment social [facility] ic Medical Equipment Procedure Code Equipment Code Equipment Original Equipment Identifi er Dates Text Cement Simplex Bone [id number] Start: High Viscosity - 02-08-2018 [id number] Insert Triathlon 3 [id number] Start: X3 9mm Tibial 02-08-2018 Condylar Stabilized Knee - [id number] Component Triathlon [id number] Start: 32mm Asymmetric X3 8 10mm Patellar Knee - [id number] Baseplate Triathlon [id number] Start: 3 Tibial Primary 02-08-2018 Cement Knee - [id number] Functional Status Date Assessment Result Facility 11-02-2022 Functional Status Room check performed [facility] 11-02-2022 Functional Status Mobile home [facility] 11-02-2022 Functional Status [facility] 11-02-2022 Functional Status [facility] 11-02-2022 Functional Status [facility] 11-01-2022 Functional Status Done [facility] 11-01-2022 Functional Status Activity Assistance Independ t [facility] 11-01-2022 Functional Status Assistive Device None [facility] 11-01-2022 Functional Status Ambulation in [facility] 10-31-2022 Functional Status [facility] 10-31-2022 Functional Status Done [facility] 10-07-2022 Functional Status Done [facility] 10-07-2022 [facility] 10-06-2022 Functional Status Mod I [facility] 2022 Functional Status Yes [facility] 2022 Functional Status Mobile home [facility] 10-04-2022 Functional Status [facility] 10-04-2022 Functional Status [facility] 10-04-2022 Functional Status [facility] 10-03-2022 Functional Status Sensory Deficits None [facility] Mental Status Date Assessment Result Facility 11-02-2022 Mental Status Oriented x 4 [facility] 11-01-2022 Mental Status [facility] 11-01-2022 Mental Status [facility] 10-07-2022 Mental Status Orientation Oriented x 4 [facility] 10-07-2022 Mental Status [facility] 10-07-2022 Mental Status [facility] 10-06-2022 Mental Status Orientation Assessment Oriented x 4 [facility] 2022 Mental Status [facility] 2022 Mental Status [facility] Clinical Notes 05-06-2022 to 12-28-2022 Telephone Encounter - Nadege Morales - 11/16/2022 2:18 PM ESTTelephone Encounter - Krysten Iris - 11/10/2022 2:38 PM EST Note Date & Type Note Facility 12-28-2022 Note . [facility] MICRO - Microbiology ([place]) PROCEDURE: Blood Culture [id number] (bacterial) [*1] SOURCE: Blood BODY SITE: COLLECTED [...] Locations *1: This test was performed at: [address], [address]- , 12-28-2022 Note . [facility] MICRO - Microbiology ([place]) PROCEDURE: Blood Culture [id number] (bacterial) [*1] SOURCE: Blood BODY SITE: COLLECTED [...] Locations *1: This test was performed at: [address], [address] , 11-24-2022 Note [facility] HISTORY & PHYSICAL/DISCHARGE SUMMARY NAME ACCOUNT SEX AGE ADMIT DISCHARGE PT MED. RECORD# NUMBER DATE DATE TYPE LINDA, [id number] F 52 11/17/22 1 [facility] [id number] ROOM: [facility] DATE OF : 66 DICTATING PHYSICIAN: Lois [...] (more content not included)... 11-23-2022 Note . [facility] Found stephaniion MICRO - Microbiology ([place]) PROCEDURE: Blood Culture [id number] (bacterial) [*1] SOURCE: Blood BODY SITE: COLLECTED [...] Locations *1: This test was performed at: [address], [address]- [facility] 11-23-2022 Note . [facility] Found atrhiannon MICRO - Microbiology ([place]) PROCEDURE: Blood Culture [id number] (bacterial) [*1] SOURCE: Blood BODY SITE: COLLECTED [...] Locations *1: This test was performed at: [address], [address]- , 11-16-2022 Miscellaneous Formatting of this note migh t be different from the original. [facility] Notes No Show Documentation Ever Mckeon no showed for an appointment on 11/16/22 with Marilynn Carballo APRN.GRAPHICS EDITOR at 2:00pm. She was scheduled for Hospital [...] is the patients third no show in [facility] last 12 months. Patient was not rescheduled at this time . Letter mailed : No Is this the Third or Fourth No Show ? N o Nadege Morales November 16, 2022 2:19 PM documented in this encounter 11-10-2022 Miscellaneous Formatting of this note migh t be different from the original. [facility] Notes No Show Documentation Ever Mckeon no showed for an appointment on 11/10/22 with Marilynn Carballo APRN.CNP at 2:00 pm. She was scheduled for a new patient hosp ital follow up. I called and spoke with the patient riuz rding her missed appointment. Ever stated the reason that she missed h er appointment was because that she has . Been trying to call the office to resche may. Resources discussed/offered to patient: reschedule appointment. No show determined to be fau lt of patient: N/A-patient has not established care yet. This is the patients first no show in [facility] last 12 months. Patient was rescheduled for 11/16/22 at 2:00 pm. Letter mailed : N/A Is this the Third or Fourth No Show ? N o Krysten Simmons November 10, 2022 2:39 PM documented in this encounter 11-05-2022 Note . [facility] Found [facility]ending [facility] MICRO - Microbiology ([place]) PROCEDURE: Blood Culture [id number] (bacterial) [*1] SOURCE: Blood BODY SITE: COLLECTED [...] Locations *1: This test was performed at: [address], [address]- , [place] 11-05-2022 Note . [facility] MICRO - Microbiology ([place]) PROCEDURE: Blood Culture [id number] (bacterial) [O1 *1] SOURCE: Blood BODY SITE: [...] Comments O1: Blood Culture (bacterial) fax to [phone] Collection date on specimen label Performing Locations *1: This test was performed at: [address], [address]- , [place] 11-02-2022 Discharge summary [facility] Date of Service 11/02/2022 Discharge Diagnosis 1. [...] mL, 0 Refill(s), 12/02/22 7:43:00 EST, Pharmacy: [facility], 165.1, cm, 10/31/22 1:25:00 EST, Height Other status: Discharge,11/02/22 7:44:0 0 EST, Discharged to: Home(Complete) Ordered: Discharge Activity ,Resume your pre-hospitalization activity, 11/02/22 7:44:00 EST Ordered: Discharge Diet,Fol low the diet changes as instructed by the dietitian, 11/02/22 7:44:00 EST Discontinued: Discharge Andrew e Equipment,Bedside commode, 99 month(s), 11/02/22 8:59:00 [facility] Hospital Course 52-year-old female with mul tiple [...] (2) times a day as needed Anxiety. [id number] Milligram by mouth every 6 hours as [...] three (3) times a day. Refills: 0. [id number] Milligram by mouth daily a t bedtime. rifaximin (Xifaxan 550 mg oral tablet)1 tab(s) by mouth two (2) times a day. rifaximin (Xifaxan 550 mg or al tablet)1 tab(s) by mouth two (2) times a day. Refills: 0. Follow Up Follow Up with TIM ROBLEDO CNP When Within 1-2 days Why: Please call the office to schedule a follow up appointment Where: [address] [place] [address]- Follow Up Appointments No qualifying data available. [...] Education 11/02/2022 10:06:32 Ammonia Test Ammonia Test [facility] instructions Why am I having this test? Work Phone: Ammonia testing is used to h p [...] Reference ranges may vary among labs [facility]. For this test, common reference ranges [...] 6 Document Revised: 09/23/2018 Document Reviewed: 05/10/2018 [employer] Patient Education 2020 [employer]. Follow Up Care 10/31/2022 01:02:36 With:TIM ROBLEDO CNP Address: [address] [place] [address]- When:1-2 days Comments:Please call the office to stormy álvarez a follow up appointment 11-02-2022 Note [facility] Discharge Instructions Thank you for allowing [facility] to assist you with your healthcare [...] to schedule a follow up appointment Where: [address] [place] [address] [address] [place] [address]- The Following Activity and Diet Have Bee [...] a day Duration: 30 Days Pickup at [facility] Unchanged buPROPion (buPROPi on 300 mg/ 24 [...] Two (2) times a day Pharmacy Information [facility]: [address], [place] [id number] [phone] Please take this list to you r [...] may report side effects to FDA at 3-310-QBQ-0212. What other drugs will affect lactulose? Other drugs may affect lact ulose, including prescription and ybpn-jjd-jusomje medicines, vitamins, and herbal products. Tell your [...] to ensure that the information provided by [employer] [address] ('[employer]') is accurate, up-to-date, and complete, but no guarantee is made to that effect. Drug information con tained herein may be time se nsitive. [employer] information has been compiled for use by healthcare practitioners and consumers in the [place] and therefore [employer] does not warrant that uses outside o f the [place] are appr opriate, unless specifically indicated otherwise. [employer]'s drug information does not endorse drugs, diagnose patients or recommend therapy. View the Spaces drug information is an in formational resource [...] or ap propriate for any given patient. [employer] does not assume any responsibility for any aspect of healthcare administered with the aid of information [employer] provides. The informat ion contained herein is not intended to cover all possible uses, directions, precautions, warnings, drug interactions, allergic reactions, or adverse effects. If you have questions about the drugs you a re taking, check with your doctor, nurse or pharmacist. Copyright 8547-5988 [employer]. Version: 3.01. Revision Date: 07/29/2021. Education Materials [...] Reference ranges may vary among labs [facility]. For this test, common reference ranges are: Adult: 10 80 mcg/dL or 6 47 micromol/L ( SI units). Child: 40 80 mcg/dL. [place]: 90 150 mcg/dL. What do the results [...] to receive it can visit one of [facility] vaccine clinics. There are many vaccine clinic locations within the [facility]. For locations and available times, please visit [email or web address] It is important to note that some COVID mobile vaccine clinics are held outdoors and may be canceled in rainy or stormy conditions. To learn more about pediatr ic vaccinations (ages 5-11), we invite you to visit the [employer] webpage. https://[email or web address].org/pages/[email or web address]-Ysxhu-Gsakbmgupnz-Qhmsuokjeo-Buyau-Wjp stions.html T o learn more about the COVID -19 vaccine, we invite you to visit the [employer] website for a list of frequently asked questions. [email or web address]_ Asked-Questions.pdf [facility] Patient Portal Access I nstructions: Stay connected with [facility] and access your personal medical information anytime with the [facility] Patient Portal.If you would like a full copy of your medical records, please conta ct the [facility] Records Department, Wednesday through Wednesday between 8a.m. and 4:30p.m. Please follow the directions below to access the portal: 1.Access the email account y jaquan provided upon registration to the hospital.2.Look for an invitation email from [facility].3.Open the email and access the invitation link: Accept Invitation to [facility] an [facility]4.Fill in the required gonzáles to create your account. Sign into [email or web address] wi th your username and password that [...] you will allow to register on the [employer] Patient Portal for access to your information. You can also access the [employer] Patient Portal on the [employer] [place]. Simply click on Health Records under Health Data and then click on the [facility] logo. HOW TO SAFELY DISPOSE OF PRESCRIPTION [...] Call your local pharmacy or go to [email or web address] to find one close to you.3.Make use of ho usehold items: Use cat litte r or old coffee grounds to dispose medications if other options are not available. Mix your drugs with these household products, seal them in an airtight container and throw it into the garbage. Call [place] EPA: [phone] to be sure your drugs can be [...] aware that I should contact my doctor. Patient/Carrot Tier Signcrow ture: Date/Time: Relationship to Patient: Witness Name/Signature: Date/Time: 11-01-2022 Note Subjective: Patient seen for hepatic enc ephalopathy [facility] patient was examined and nette luated today, [...] Resp Rate17(NOV 01:)16(OCT 31 23:53 )18(OCT 31:) IYE279(NOV 01:)131(NOV 01:)C 1 60(OCT 31:) DBP75(NOV 01:)74(NOV [...] from: Title:Clinical Document Author:MUSTAPHA WOODWARD MD Date:10/31/22 [facility] Hospitalist History and Physical Date of Admission: 10/31/2022 Chief complaint: Change in mental status History of present illness: History is t aken from talking with the emergency room physician at [facility] as well as talking with the patient. [...] discharged to follow- up with her primary concrete pipe plant supervisor at [facility]. Patient is not able to tell me [...] abdominal pain. Labs and imaging from [facility] CT head without contrast per emergency r [...] her transferred to where they had a concrete pipe plant supervisor. Past medical history: anxiety/depression, alcohol abuse, hyper [...] cloNIDine 0.1 mg oral tablet 0.01 mg, MT N, Oral ferrous sulfate 325 mg (65 [...] Patient presents as a transfer from [facility] emergency room due to having encephalopathy. Hepatic [...] Patient can follow-up outpatient with her primary concrete pipe plant supervisor in [place]. Prophylaxis SCDs CODE STATUS full code [facility] 01-07-2023 NoteSubjective: Patient seen for hepatic encephalopathy patient was examined and evaluated today, patient was admitted and seen earlier by one of our meat team member, I examined her again this morning she [...] 31:45) Resp Rate16(OCT 31:09)16(OCT 31 07:09)17(OCT 31:45) ENO691(OCT 31:09)103(OCT 31:09)129(MELANIE 07 01:45) DBPC 49(OCT 31:09)C [...] by SOHA DANIELS MD on 10/31/2022 08:21 [facility]01-07-2023 History and physical note [facility] Hospitalist History and Physical Date of Admission: 10/31/2022 Chief complaint: Change in mental status History of present illness: History is taken from talking with the emergency room physician at [facility] as well as talking with the patient. [...] ultimately discharged to follow-up with her primary concrete pipe plant supervisor at [facility]. Patient is not able to tell me for how long she has been getting progressively worsening confusion. She did tell me that she is compliant with her medications. She states that she takes the lactulose and that she has been having around 3 bowel movements a day. She denies fevers, chills or night sweats. Denies abdominal pain. Labs and imaging from [facility] CT head without contrast per emergency room [...] her transferred to where they had a concrete pipe plant supervisor. Past medical history: anxiety/depression, alcohol abuse, hypertension, [...] Patient presents as a transfer from [facility] emergency room due to having encephalopathy. Hepatic [...] Patient can follow-up outpatient with her primary concrete pipe plant supervisor in [place]. Prophylaxis SCDs CODE STATUS full code Digitally Signed by MUSTAPHA WOODWARD MD on 10/31/2022 02:11 [facility]12-15-2022 Note. MICRO - Microbiology PROCEDURE: Blood [...] Order Comments O1: Blood Culture (bacterial) fax [phone] Performing Locations *1: This test was performed at: [facility], [address] [place] [address], [facility] , [facility] ([place])10-08-2022 Note. MICRO - Microbiology PROCEDURE: Blood Culture [...] Order Comments O1: Blood Culture (bacterial) fax [phone] Performing Locations *1: This test was performed at: [facility], [address] [place] [address], [place], [address]- , [facility] ([place])10-07-2022 Note Discharge Instructions Thank you for allowing [facility] to assist you with your healthcare needs. The following is important discharge information regarding your hospital visit. Your Care Team TIM ROBLEDO CNP Your Diagnosis Cirrhosis Hepatic encephalopathy What to do next Instructions From Your Doctor Thank you for choosing [facility] - it has been a pleasure taking [...] to schedule follow up appointment. Where: [address] [facility] [address] [place] [phone] Follow Up with PREMA STAHL MD When In 1 week Why: Please call the office to schedule follow up appointment. Where: [address] [place] [address] Hematology [place] [address] [phone] Follow Up with RAYA ALMAZAN MD When Within 1-2 days Why: Please call the office to schedule appointment Where: [address] [facility] [address] [place] [phone] Follow Up with MAINOR COLE MD When Within 1-2 days Why: Choice #1 Where: [facility] [address] [place] [address]- Follow Up with FRANCESCA VILLEGAS MD When Within 1-2 days Why: Choice #2 Where: [address] [facility] [address] [place] [address]- Follow Up with JIMBO DURANT DO When Within 1-2 days Why: Choice #3 Where: [facility] [address] [facility] [place] [address]- The Following Activity and Diet Have Been [...] 10 days, Results Notify to: TIM ROBLEDO GRAPHICS EDITOR, 10/07/22 12:00:00 EST Discharge Radiology No qualifying [...] Once a day Pickup at [id number] New furosemide (Lasix 20 mg oral tablet) 1 tab(s) by mouth Two (2) times a day Pickup at [facility]15 New lactulose (lactulose 10 g/ 15 mL oral syrup) 45 Milliliter by mouth Every 6 hours Duration: 30 Days Pickup at [facility] New propranolol (propranolol 10 mg oral tablet) 1 tab(s) by mouth Three (3) times a day Pickup at [id number] New rifaximin (Xifaxan 550 mg oral tablet) 1 tab(s) by mouth Two (2) times a day Pickup at [id number] Unchanged busPIRone (busPIRone 10 mg oral tablet) [...] Daily at bedtime Pharmacy Information [id number]: [address] [place], [place] [phone] Please take this list to your next [...] health care provider or a diet and nutrition services aide (dietitian) to develop an eating plan. ? [...] provider before taking any new medicines, including wkcr-ikw-jkicrhr medicines. Rest as needed. Eat a well-balanced [...] Document Reviewed: 08/31/2018 Elsevier Patient Education 2020 [employer] Additional Information VACCINATE! IT SAVES LIVES! Members of the community who have not yet received the COVID-19 vaccine and would like to receive itcan visit one of [facility] vaccine clinics. There are many vaccine clinic locations within the [facility].For locations and available times, please visit [email or web address]/. It is important to note that some COVID mobile vaccine clinics are held outdoors and may be canceled in rainy or stormy conditions. To learn more about pediatric vaccinations (ages 5-11), we invite you to visit the [facility] webpage. https://[email or web address].org/[email or web address]-Fbcja-Dbfdnwrvzsa-Kvxqcyxcoc-Bujfb-Cyq stions.html To learn more about the COVID-19 vaccine, we invite you to visit the [facility] website for a list of frequently asked questions. [email or web address]-ffl-Amhllnlk/gcejh-[email or web address]-Avrhcpidfn_Pw ked-Questions.pdf [facility] Patient Portal Access Instructions: Stay connected with your healthcare team and access your personal medical information anytime with the [facility] Patient Portal.If you would like a full copy of your medical records, please contact the [facility] Medical Records Department, Wednesday through Wednesday between 8a.m. and 4:30p.m.Please follow the directions below to access the portal: 1.Access the email account you provided upon registration to the hospital.2.Look for an invitation email from [facility].3.Open the email and access the invitation link: Accept Invitation to [facility]4.Fill in the required gonzáles to create your account. Sign into www.iPositioning with your username and password that you [...] who you will allow to register onthe [facility] Patient Portal for access to your information. You can also access the [employer] Patient Portal on the [employer] kingsley. Simply click on Health Records under Health Data and then click on the [facility] logo. HOW TO SAFELY DISPOSE OF PRESCRIPTION [...] Call your local pharmacy or go to [email or web address] to find one close to you.3.Make use of household items: Use cat litter or old coffee grounds to dispose medications if other options are not available. Mix your drugs with these household products, seal them in an airtight container and throwit into the garbage. Call [facility]: [phone] to be sure your drugs can be [...] that I should contact my doct or. Patient/Carrot Tier Signature: Date/Time: Relationship to Patient: Witness Name/Signature: Date/Time: [id number] Discharge summary Date of Service 10/07/2022 Discharge [...] 10 days, Results Notify to: TIM SPAIN GRAPHICS EDITOR, 10/07/22 12:00:00 EST Ordered: Lasix 20 mg oral tablet,Dose : 20 mg = 1 tab(s), Oral, BID, # 60 tab(s), 0 Refill(s), [facility]: [id number], 165, cm, 10/03/22 11:32:00 EST, Height Other status: Magnesium Level,10/07/22 5:01:00 EST, Next AM Draw (one day only), Blood, Once, Stop date 10/07/22 4:00:00 EST(Complete) Ordered: Xifaxan 550 mg oral tablet,Dose : 550 mg = 1 tab(s), Oral, BID, # 60 tab(s), 0 Refill(s), [facility]: [facility] #[id number], 165, cm, 10/03/22 11:32:00 EST, Height Ordered: ferrous sulfate 325 mg (65 mg elemental iron) oral delayed release tablet,Dose : 325 mg = 1 tab(s), Oral, qDay, # 30 tab(s), 0 Refill(s), [facility]: [facility] #[id number], 165, cm, 10/03/22 11:32:00EST, Height Ordered: lactulose 10 g/15 mL oral syrup,Dose : 30 gram(s) = 45 mL, Oral, q6h, X 30 day(s), # 5,400mL, 0 Refill(s), 11/06/22 11:45:00 EST, Pharmacy: [facility] #[id number], 165, cm, 10/03/22 11:32:00 EST, Height Ordered: propranolol 10 mg oral tablet,Dose : 10 mg = 1 tab(s), Oral, TID, # 90 tab(s), 0 Refill(s), Pharmacy: [facility] #[id number], 165, cm, 10/03/22 11:32:00 EST, Height Hospital Course 52-year-old female PMH HTN, depression, anxiety, bipolar psychosis, alcohol abuse in the past. Patient presented to outside hospital with altered mental status transferred to [place] 10/03 for GI/hepatology evaluation. CT brain negative [...] recommending outpatient EGD/colonoscopy with Dr. Almazan in [place]. Patient with pancytopenia including thrombocytopenia and splenomegaly [...] F1 1.66-1.77 m/s (8.29 kPa - 9.40 kPa)Abcz-kt-qtwkkiry risk of clinically significant liver fibrosis. (METAVIRStage [...] 10/07/2022 Patient Instructions Thank you for choosing [facility] - it has been a pleasure taking [...] to schedule follow up appointment. Where: [address] [facility] [address] [place] [phone] Follow Up with PREMA STAHL MD When In 1 week Why: Please call the office to schedule follow up appointment. Where: [address] [facility] Hematology [place] [address]- [phone] Follow Up with RAYA ALMAZAN MD When Within 1-2 days Why: Please call the office to schedule appointment Where: [address] [address] [place], [place] [phone]- [phone] Follow Up with MAINOR COLE MD When Within 1-2 days Why: Choice #1 Where: [facility] [address] [facility] [address] [address] [place] [address]- Follow Up with FRANCESCA VILLEGAS MD When Within 1-2 days Why: [facility] #2 Where: [address] [facility] [address] [place] [address]- Follow Up with JIMBO DURANT DO When Within 1-2 days Why: Choice #3 Where: [facility] [address] [facility] [place] [address]- Follow Up Appointments No qualifying data available. [...] AMEE RICCI HARMAN Maria on 10/07/2022 12:11 [facility]12-14-2022 Gastroenterology Progress note Date of Service 10/07/2022 [...] Signed by JENNIFER SMITH on 10/07/2022 09:05 [facility]12-13-2022 Hematology Consult note Date of Service 10/06/2022 Reason for Consultation pancytopenia This is a split/shared visit between Dr. Stahl and myself History of Present Illness Patient is a 51-year-old female with past medical history of HTN, depression, anxiety, bipolar psychosis, alcohol abuse. Patient presented to [facility] with AMS. She was transferred to [facility] on 10/03 for GI evaluation. Per [...] Signed by SWAPNIL STRATTON on 10/06/2022 12:28 [facility]12-13-2022 Note Date of Service 10/06/2022 Chief Complaint Hepatic encephalopathy Subjective 51-year-old female PMH HTN, depression, anxiety, bipolar psychosis, alcohol abuse in the past. Patient presented to outside hospital with altered mental status transferred to [place] 10/03 for GI/hepotology evaluation. CT brain negative [...] F1 1.66-1.77 m/s (8.29 kPa - 9.40 kPa)Pytt-jp-cvclspmc risk of clinically significant liver fibrosis. (METAVIRStage [...] by HARMAN LUBIN MD on 10/06/2022 05:15 [facility]12-13-2022 Hematology Consult note Date of Service 10/06/2022 Reason for Consultation pancytopenia This is a split/shared visit between Dr. Stahl and myself History of Present Illness Patient is a 51-year-old female with past medical history of HTN, depression, anxiety, bipolar psychosis, alcohol abuse. Patient presented to [facility] with AMS. She was transferred to [facility] on 10/03 for GI evaluation. Per [...] Signed by SWAPNIL STRATTON on 10/06/2022 12:28 [facility]12-13-2022 Gastroenterology Progress note Date of Service October [...] by HAN YOUNG MD on 10/06/2022 09:44 [facility]12-13-2022 Gastroenterology Progress note Date of Service [...] by HAN YOUNG MD on 10/06/2022 09:44 [facility]12-13-2022 Note. MICRO - Microbiology PROCEDURE: Urine [...] Locations *1: This test was performed at: [facility], [address] [place] [address], [address] , [facility] ([place])2022 Note Date of Service 2022 Chief Complaint [...] by ANAM KAISER DO on 2022 07:23 [facility]12-12-2022 Nurse Progress note2 bottles of med. & inhaler in med. room Digitally Signed by Charmaine Levy LPN on 2022 12:07 [facility]12-12-2022 Hospital Discharge instructions Patient Mejlgakdr36/12/2022 09:44:38CirrhosisCirrhosis Cirrhosis is long-term (chronic) liver injury. [...] health care provider or a diet and nutrition services aide (dietitian) to develop an eating plan. ?Restricting [...] provider before taking any new medicines, including gqpy-xvz-qebsgee medicines. Rest as needed. Eat a well-balanced [...] 10/11/2006 Document Revised: 01/31/2020 Document Reviewed: 08/31/2018 [employer] Patient Education 2020 [employer] Follow Up Care10/03/2022 11:19:14With:TIM ROBLEDO CNP Address: [address] [place] [phone] When:1-2 days Comments:Please call the office to schedule follow up appointment.With: PREMA STAHL MD Address: [address] [place] [address] Hematology [place] [phone] When:Within 1 Week(s) Comments:Please call the office to schedule follow up appointment.With:RAYA ALMAZAN MD Address: [address] [place], [place] [address]- [phone] When:1-2 days Comments:Please call the office to schedule appointmentWith:MAINOR COLE MD Address: [facility] [address] [facility] [address] [place] [address]- When:1-2 days Comments:Choice #1With:FRANCESCA VILLEGAS MD Address: [address] [facility] [address] [place] [address]- When:1-2 days Comments:Choice #2With:JIMBO DURANT DO Address: [facility] [address] [place] [address] [place] [address]- When:1-2 days [facility] Progress note Date of [...] improved. She mentioned she lives far from [place]. I gave her the name of Dr. Barbosa in [place] for follow-up Digitally Signed by HAN YOUNG MD on 2022 09:46 [facility]12-12-2022 Nurse Progress noteAttempted to call Vaibhav as patient wanted to talk to him. First call resulted in a busy tone, and the second call said that number was no loner in service. Digitally Signed by Art Peralta LPN on 2022 01:32 [facility]12-11-2022 Note ORIGINAL EXAMINATION: Hepatic elastography TECHNIQUE: [...] 1.66-1.77 m/s (8.29 kPa - 9.40 kPa) Kxmv-uo-ykwnfsed risk of clinically significant liver fibrosis. (METAVIR [...] Sign Date: 10/04/2022 8:40:55 PM Ordering Provider: [facility]12-11-2022 Note Date of Service 10/04/2022 Chief Complaint [...] by ANAM KAISER DO on 10/04/2022 02:49 [facility]12-11-2022 Gastroenterology Progress note Date of Service October [...] by HAN YOUNG MD on 10/04/2022 10:25 [facility]12-11-2022 Note ORIGINAL EXAMINATION: Hepatic elastography TECHNIQUE: [...] 1.66-1.77 m/s (8.29 kPa - 9.40 kPa) Nhuc-an-ttfvlhne risk of clinically significant liver fibrosis. (METAVIR [...] Sign Date: 10/04/2022 8:40:55 PM Ordering Provider: [facility]12-10-2022 Note ORIGINAL EXAMINATION: ONE XRAY VIEW OF [...] Sign Date: 10/03/2022 3:48:50 PM Ordering Provider: [facility]12-10-2022 Note ORIGINAL EXAMINATION: ONE XRAY VIEW OF [...] Sign Date: 10/03/2022 3:48:50 PM Ordering Provider: [facility]12-10-2022 Evaluation + Plan noteExtracted from: Title:History and [...] Monitoring Bedside PRN Call Parameters Call Parameters Netsuite Consultant Code Status Communication Order (continuous) Communication Order [...] on presenta tion and also at [facility] in the 110s. Presenting here at 102. [...] recognition software and may contain typographical errors. [facility] 12-10-2022 Gastroenterology Consult note Date of Service [...] home medications). Patient initially presented to [facility] in [facility] for further evaluation and treatment of shortness of breath, confusion and altered mentalstatus. Reportedly patient lives alone but was not acting quite right and had been noncompliant withmedications. On arrival to [facility] she was noted to have multiple lab abnormalities including hyperammonemia with ammonia level of 115. LFTs were also noted to be abnormal with T bili 0.7, AST 38, ALT 31, and alk phos 189. She was transferred to [facility] for further management. Noted to have lactic [...] does not believe she follows with a concrete pipe plant supervisor. Her endoscopy history is questionable. She has no known family history for GI disease or malignancies. She states that she has a current smoker and drinker. Transfer sheet from [facility] states that she has been sober for [...] Signed by NIRALI OZUNA on 10/03/2022 01:06 [facility]12-10-2022 Gastroenterology Consult note Date of Service 10/03/2022 Reason for Consultation Decompensated cirrhosis, hepatic encephalopathy Referring Physician Dr. Perez History of Present Illness The patient is a 51-year-old female, who has a past medical history significant for probable cirrhosis likely secondary to alcohol versus other, HTN and likely underlying psych disease possibly depression/anxiety (per review of her home medications). Patient initially presented to [facility] in [facility] for further evaluation and treatment of shortness of breath, confusion and altered mentalstatus. Reportedly patient lives alone but was not acting quite right and had been noncompliant withmedications. On arrival to [facility] she was noted to have multiple lab abnormalities including hyperammonemia with ammonia level of 115. LFTs were also noted to be abnormal with T bili 0.7, AST 38, ALT 31, and alk phos 189. She was transferred to [facility] for further management. Noted to have lactic [...] does not believe she follows with a concrete pipe plant supervisor. Her endoscopy history is questionable. She has no known family history for GI disease or malignancies. She states that she has a currentsmoker and drinker. Transfer sheet from [facility] states that she has been sober for [...] CT scan of abdomen pelvis at [facility] was notable for small, nodular appearing liver, [...] Signed by NIRALI OZUNA on 10/03/2022 01:06 [facility]12-10-2022 History and physical note Date of Service 10/03/22 Chief Complaint Altered mental status History of Present Illness 51-year-old lady past medical history of alcohol abuse, hypertension, depression anxiety, bipolar psychosis presents due to altered mental status from [facility]. Per family she has not been taking [...] Monitoring Bedside PRN Call Parameters Call Parameters Netsuite Consultant Code Status Communication Order (continuous) Communication Order [...] tachycardic on presentation and also at [facility] in the 110s. Presenting here at102. She [...] by JALEESA PEREZ MD on 10/03/2022 12:22 [facility]10-18-2022 Hospital Discharge instructions Discharge InstructionsDonte Caruso MD - 08/11/2022 12:02 PM EDT Strep swab was negative; Would get covid testing' Follow with your doctor AttachmentsThe following attachments cannot be sent through Care Everywhere.Sore Throat (Ivorian)documented in this encounterSUMMA Work Phone: [phone] 153-819108-22-2022 NoteHNO ID: [id number] Author: Priya David Service: Pharmacy Author Type: ? Type: Plan of Care Filed: 06/15/2022 2:08 PM Note Text: PHARMACY BEDSIDE DELIVERY SERVICE Patient Name: Ever Mckeon The marked outpatient medications were Filled at: [place] and delivered to the patient's bedside to [...] Commonly known as: NAPROSYN Priya Frankie PAGER: [phone] June 15, 2022 2:07 [facility]08-22-2022 NoteHNO ID: [id number] Author: Emmett Meadows RPh Service: Pharmacy Author Type: Pharmacist Type: Plan of Care Filed: 06/15/2022 12:50 PM Note Text: PHARMACY MEDICATION REVIEW Patient Name: Ever Mckeon : 1970 The following medications were updated within the [facility] medication list: Medications ADDED to [facility] medication list None Medications CHANGED on [facility] [facility] medication list None Medications REMOVED from [facility] [facility] medication list Aspirin Additional comments: Patient states [...] name, Medication dose, and Medication frequency and [facility] records Medication nonadherence identified: No barriers noted Reconciliation completed: Yes Completed by: [facility] All [employer] medications addressed by LIP Patient interested in Bedside Delivery Services or using CC OP Pharmacy at discharge? Yes. Discharge Pharmacy Updated Preferred outpatient pharmacy: [id number] [place] [address] [address] [facility] - [phone] [address] [facility] Allergies: Vicodin [Hydrocodon* GI [...] bedtime. Facility-Administered Medications: None Emmett Meadows RPh 06/15/2022[facility]08-22-2022 NoteHNO ID: [id number] Author: Yeni Rose RN Service: Care Management Author Type: Registered Nurse Type: Care Mgt Initial Assessment Filed: 06/15/2022 11:17 AM Note Text: CARE MANAGEMENT: ASSESSMENT AND DISCHARGE PLAN SERVICE DATE: June 15, 2022 SERVICE TIME: 11:14 AM PRIMARY CARE PHYSICIAN: No primary care provider on file. Phone: None Primary Contact: Extended Emergency Contact Information Primary Emergency Contact: Lida Green Mobile Relation: Cartography Professor ADMISSION STATUS: Inpatient Insurance Provider: [employer] MEDICAID NEEDS PRIOR TO DISCHARGE Needs Prior to Discharge: To Be Determined POTENTIAL TRANSITION PLANS Based on clinical judgement, Care Management will address the following needs: Social Patient's perception of need for this admission: confusion ADVANCE DIRECTIVES Current Advance Directive: Health Care Power of Subscription Clerk In Chart: Yes Up To Date and [...] discharge within 30 days: No PATIENT SCREEN Patient/Carrot Tier Stated Goals: To have reduction in symptoms;To improve my functional status Under the care of a PCP?: Yes, Internal Provider Provider Name: Patient has new PCP at [facility]. She cannot recall the name. but last saw her Wednesday or . Does the patient have transportation upon discharge?: (unsure) Situation: Patient from a sober living home Use of any community resources?: Yes Situation: Patient has outsole caser through [employer], resides in a sober living home at [...] in regards to releasing information to the senior data warehouse developer . At this time, I do not anticipate any dc TCC needs. SIGNATURE: Yeni Rose RN PATIENT NAME: Ever Mckeon DATE: June 15, 2022 TIME: 11:14 AM CONTACT #: [phone] [facility]08-[facility]-2022 NoteHNO ID: [id number] Author: Robby Caldera MD Service: Hospital Medicine [...] Internal Medicine Date: 06/15/2022 Time: 6:53 PM [facility] PROGRESS NOTE Patient Name: Ever Mckeon Date: [...] Insomnia Prior ED visit for aphasia [at [facility] on 08/23/2021]: The patient presented with difficulty [...] a moderate hiatal hernia She presented to [facility] 06/12/2022 for evaluation of stroke-like symptoms. The [...] adequate saturations on room air. The patient's outsole caser was present, and reports that in the [...] ammonia elevated at 107 (more content not included)...[facility]08-21-2022 NoteHNO ID: [id number] Author: Fabby Frances MD Service: Hospital Medicine [...] PM: You may reach the House Medicine safety intern currently assigned to this patient by finding their pager number on the treatment team (they will be assigned as the safety intern or resident). It is the last four digits in the phone number beginning with ([phone]). We encourage the use of [employer] Secure Chat. SUBJECTIVE HPI: Ms. Ever Mckeon [...] Insomnia Prior ED visit for aphasia [at [facility] on 08/23/2021]: The patient presented with difficulty [...] a moderate hiatal hernia She presented to [facility] 06/12/2022 for evaluation of stroke-like symptoms. The [...] adequate saturations on room air. The patient's outsole caser was present, and reports that in the last 6 months that she has been working with the patient, the patient has not had any relapse of drug or alcohol use. Stroke Team was called for the patient's symptoms, and Dr. Itrat [Neurology] came to bedside to (more content not included)...[facility]08-20-2022 NoteHNO ID: [id number] Author: Shravan Huitron MD Service: Critical Care [...] PM: You may reach the House Medicine safety intern currently assigned to this patient by finding their pager number on the treatment team (they will be assigned as the safety intern or resident). It is the last four digits in the phone number beginning with ([phone]). We encourage the use of [employer] Secure Chat. SUBJECTIVE HPI: Ms. Ever Mckeon [...] Insomnia Prior ED visit for aphasia [at [facility] on 08/23/2021]: The patient presented with difficulty [...] a moderate hiatal hernia She presented to [facility] 06/12/2022 for evaluation of stroke-like symptoms. The [...] adequate saturations on room air. The patient's outsole caser was present, and reports that in the last 6 months that she has been working with the patient, the patient has not had any relapse of drug or alcohol use. Stroke Team was called for the patient's symptoms, and Dr. Benavidez [Neurology] came to bedside to evaluate the patient. Initial lab work showed microcytic anemia with hemoglobin 9.9, platelets 99, (more content not included)...[facility]08-19-2022 History of Past illness Narrative Problem Noted Date Resolved Date Encephalopathy acute 06/12/2022 06/15/2022 documented as of this encounter (statuses as of 11/10/2022)[facility] 06-12-2022 History of Past illness Narrative Problem Noted Date Resolved Date Encephalopathy acute 06/12/2022 06/15/2022 documented as of this encounter (statuses as of 11/16/2022)[facility] 06-12-2022 NoteHNO ID: [id number] Author: Ivonne Montoya RPh Service: Pharmacy Author [...] No TNKase Signature: Aurora Montoya RPh Pager/Phone: [phone] Date of Service: 06/12/2022 Time of Service: 10:41 [facility]07-13-2022 NoteCOVID 19 RESULT: SARS-CoV-2 (Agent of COVID-19) Not Detected by RT-PCR or equivalent method. This test has been authorized by FDA under an Emergency Use Authorization (EUA). INFLUENZA A PCR: Negative for Influenza A by RT-PCR INFLUENZA B PCR: Negative for Influenza B by RT-PCR RSV PCR: Negative for Respiratory Syncytial Virus (RSV) by PCRFranklin Memorial HospitalComment on above:Performed By: #### [id number] ####[facility] LABORATORYCLIA [id number] [place] [address] [place] AMERICAEvaluation note Diagnosis Anxiety state- Primary Anxiety state, unspecified Shortness of breath Shaking Abnormal involuntary movements documented in this [facility] Work Phone: Evaluation note Diagnosis Bronchitis- Primary Bronchitis, not specified as acute or ch ronic Throat pain documented in this [facility] [facility] [place] Work Phone: Hospital course NarrativeNo data available for this [facility] Hospital Discharge instructionsAttachmentsThe following attachments cannot be sent through Care Everywhere.Anxiety Disorder (Ivorian) Video: Anxiety: How to Change Anxious Thoughts (Ivorian)Video: Anxiety: Treatment Options (Ivorian)SOB (Shortness of Breath) (Ivorian)documented in this [facility] Work Phone: Summary Purpose Family History No [...] Documents on File Type Date Recorded Patient Carrot Tier Explanati on Advance Directives and Living Will Power of Subscription Clerk Documents on File Type Date Recorded Patient Carrot Tier Explanati on Advance Directives and Living Will Power of Subscription Clerk Latest Code Status on File Code Status Date Activated Date Inactivated Comments Full Code 05/08/2020 5:40 AM Documents on File Type Date Recorded Patient Carrot Tier Explanati on ACP-Advance Directive ACP-Power of Subscription Clerk Latest Code Status on File Code Status [...] Documents on File Type Date Recorded Patient Carrot Tier Explanati on ACP-Advance Directive ACP-Power of Subscription Clerk Latest Code Status on File Code Status Date Activated Date Inactivated Comments Full Code 07/18/2020 8:18 AM 07/18/2020 12:49 PM Full Code 05/16/2020 2:06 AM 05/23/2020 1:06 AM Full Code 05/08/2020 5:40 AM 05/11/2020 6:29 PM Documents on File Type Date Recorded Patient Carrot Tier Explanati on Advance Directive(s) 02/09/2018 2:59 PM [...] mild sore throat. You may use an omez-dhe-siqhshf chloraseptic spray, gargle with warm salt water, [...] mild sore throat. You may use an viyf-jet-dhqdhvl chloraseptic spray, gargle with warm salt water, [...] Sveta Richards [facility] [address] [place] [phone] [place], [place] Phone: [phone] Phone: Scheduling Instructions [facility] Ophthalmology - [address] [address] Status Reason Specialty Diagnoses / Referred By Referred To Procedures Contact Contact Open Specialty Gastroenterology Diagnoses Primary biliary cirrhosis (HCC) Sveta Richards [facility] Gastro Services [facility] [address] [phone] Phone: Fax: Scheduling Instructions [facility] Gastroenterology [address] [place] [address], [address] [address] Fax: Status Reason Specialty Diagnoses / Referred By Referred To Procedures Contact Contact Open Specialty Behavioral Diagnoses Anxiety state Chevy Whittington CM [facility] Health MD [facility] Professional Required [address] [place] [address] Phone: Fax: Fax: Scheduling Instructions [facility] [address] [place] [address] Status Reason Specialty Diagnoses / Referred By Referred To Procedures Contact Contact Open Specialty Family Medicine Diagnoses Anxiety state Chevy Whittington [facility] / Internal MD [facility] Required Medicine [address] [facility] [address] [place] [phone] Phone: Fax: Scheduling Instructions [facility] Medicine [address] [place] [address] History of Present Illness Delia Hurd RN - 05/11/2020 4:03 PM EDTAVS, medication list, and follow up appointments reviewed with pt. Pt given printed papers for eye doctor, labs and GI doctor. Paper script for oxycodone given to pt. Pt aware that 2 medications need to be picked up at [facility]. . Sveta Leslie MD - 05/11/2020 11:[address] [facility] Progress Note Ever Dyson Linda : 1970(49 y.o.) Date: 05/11/20 Subjective: CC: Abd pain Feels like abd pain is improving, although later says pain meds are no longer working. Is having intermittent nausea. States vision is continuing to improve. Scheduled Meds: b izhaaek-U-A-zinc 1 tablet Oral Daily vitamin C 250 [...] wellbutrin. DVTProphylaxis: SCDs Disposition:await test results, await call center support consultant recommendations, await clinical improvement and anticipate discharge 1-2 days I spent over 51% of total time providing counseling or incoordination of care: > 35 minutes discussed with nurse, patient and family updated, I personally examined the patient and I personallyreviewed chart, data, labs radiology reports. Reviewed plan w/ pt and discussed GI hx. 6AM-6PM please page: 6PM-6AM please page: [facility] Internal Medicine Sveta Leslie MD - 05/10/2020 6:41 AM EDT [facility] Progress Note Ever Mckeon : 1970(49 y.o.) Date: 05/10/20 Subjective: CC: Abd pain Feels like her abd pain is improving, but now pain is along RUQ rather than RLQ. Able to urinate again w/o issue. Blurry vision improving. Scheduled Meds: b mljrqxd-T-N-zinc 1 tablet Oral Daily vitamin C 250 [...] wellbutrin. DVTProphylaxis: SCDs Disposition:await test results, await call center support consultant recommendations, await clinical improvement and anticipate discharge 1-2 days I spent over 51% of total time providing counseling or incoordination of care: > 35 minutes discussed with nurse, discussed with TCC/SW, patient and family updated, I personally examined the patient and I personally reviewed chart, data, labs radiology reports. Touched base w/ urology. 6AM-6PM please page: 6PM-6AM please page: [facility] Internal Medicine ineda Soto MD - 05/09/2020 [...] 40 mEq Oral Once Samer MD prateek Richards bxjgtub-Z-G-zinc (STRESS FORMULA W/ ZINC) 1 tablet 1 [...] Ordering Physician MD PETERS JAMES Accession Number [id number] CPT4 Codes 69677 (CT Abdomen/Pelvis w/ IV Contrast (IV Onl), Q9967 (CT ISOVUE 370MG/ML&[id number]&ML&1) Reason For Exam RUQ and RLQ pain [...] EDT Exam CR Chest Portable Ordering Physician [id number] DUGGAN Accession Number [id number] CPT4 Codes 42328 () Reason For Exam sob, cough and [...] Norris MD 7:52 AM 05/09/2020 - Page field contact technician resident with questions. Discussed with the urology resident. I concur with the assessment and plan. Pineda Soto M.D. Sveta Leslie MD - 05/09/2020 6:[address] [facility] Progress Note Ever Mckeon : 1970(49 [...] the last week. Has never seen an conductor and engineer, but has reading glasses she uses as needed. Noted that her vision became blurry, but doesn't think itsworsened since it started. Denies eye pain, itching, discharge (occasional tearing, but no more thanbaseline), and photophobia. Mentions at first she felt like her eyes were both 'burning', but that it hasn't happened since it started. Scheduled Meds: b pucdqtw-X-O-zinc 1 tablet Oral Daily vitamin C 250 [...] wellbutrin. DVTProphylaxis: SCDs Disposition:await test results, await call center support consultant recommendations, await clinical improvement and anticipate discharge 2-3 days I spent over 51% of total time providing counseling or incoordination of care: > 35 minutes discussed with nurse, patient and family updated, I personally examined the patient and I personallyreviewed chart, data, labs radiology reports. Reviewed plan w/ patient. 6AM-6PM please page: 6PM-6AM please page: [facility] Internal Medicine Natalya Jorge MS, RD, LD [...] Intake: Unable to assess(Pt reports poor PO PRODUCE SHIPPER d/t n/v) Weight Loss: No significant weight loss Body Fat Loss: Unable to assess Muscle Mass Loss: Unable to assess Fluid Accumulation: No significant fluid accumulation Manager Unit Strength: Not Performed Estimated Daily Nutrient Needs: Energy (kcal): 8459-6374; Weight Used for Energy Requirements: [employer] Protein (g): 49-61; Weight Used for Protein Requirements: [employer] Fluid (ml/day): per MD; Nutrition Related Findings: +I&O. Hypoactive BS. No edema. Daren 18. Glucose 136, Na+ 132 Wounds: None Current Nutrition Therapies: DIET GENERAL; Anthropometric Measures: Height: 5' 7 (170.2 cm) Current Body Weight: 250 lb (113.4 kg) Usual Body Weight: 259 lb (117.5 kg)(per [facility] 06/08) [employer] Body Weight: 135 lbs; 185.2 lbs BMI: [...] Edema, Skin,Weight, Nutrition Focused Physical Findings Contact: [phone] documented in this encounterSTierra Hutchinson DTR - 05/22/2020 7:50 AM EDT Nutrition update completed. Chart reviewed. Refer patient to the Dietitian. Daniella Patten DO - 05/21/2020 11:41 AM EDT [facility] - Infectious Diseases Attending [...] Negative Lines: PIV Radiography/Echo/Other: CT abdomen and eiijxs-9-19-2020 05-19-2020 Antimicrobials, Start/End Dates: Zosyn 3.375 g [...] Will sign-off please call with questions Pager: [phone] Winston Jacobson DO - 05/21/2020 9:[address] [facility] Progress Note Ever Mckeon : [...] with portal HTN -Previous work up from [facility] in 2002. Continue home ursodiol, after [...] creatinine clearance >30 Disposition:await test results, await call center support consultant recommendations and await clinical improvement I spent over 51% of total time providing counseling or incoordination of care: > 35 minutes discussed with nurse, discussed with the patient and Sosa FLORES, I personally examined the patientand I personally reviewed chart, data, labs radiology reports 6AM-6PM please page: 6PM-6AM please page: [facility] Internal Medicine Sosa Noriega PA-C - 05/21/2020 [...] cells/uL 269 05/21/2020 12:19 AM [facility] Results From Soft[facility]Medlab Component Value Ref Range & Units Status Collected Lab Protein, body fluid 4.0 05/21/2020 3:00 AM - Ricky, [facility] Incoming Lab Results From Soft/Medlab Component Value Ref Range & Units Status Collected Lab Neutrophils % 81 % Final 05/20/2020 12:15 PM [facility] Lymphocytes 10 % Final 05/20/2020 12:15 PM [facility] Monocytes 5 % Final 05/20/2020 12:15 PM [facility] Eosinophils 3 % Final 05/20/2020 12:15 PM [facility] Macrophage count 1 % Final 05/20/2020 12:15 PM [facility] Differential Count 100 NA Final 05/20/2020 12:15 PM [facility] Lab Component Collected Lab Gram Stain Result 05/20/2020 12:15 PM [facility] Many polymorphonuclear cells/lpf. No organisms seen. Cytocentrifugation performed. Microscopic observation and enumeration of white blood cells should be confirmed by Cell Count with Differential. Radiology Review: RUQ Fluid aspiration 05/20/2020 12 ccs clear yellow fluid obtained. Bandaid applied to site. ASSESSMENT AND PLAN ?Biliary cirrhosis - follows outpatient at [facility], last note from 2002, thought ot [...] physician or call our GI clinic at [phone] to make f/u appointment as soon as [...] PM EDTPatient arrived to ultrasound department from [facility] for a RUQ fluid aspiration . Dr. Lynchum in to discuss procedure with patient and informed consent obtained.. monitor technician on. 12 ccs clear yellow fluid obtained. Bandaid applied to site. Patient tolerated procedure well. Report called to Delmy CAMPBELL. and patient transferred to [facility]. Daniella Arndt DO - 05/20/2020 10:38 AM EDT [facility] - Infectious Diseases Attending [...] Negative Lines: PIV Radiography/Echo/Other: CT abdomen and fysizv-0-57-2020 05-19-2020 Antimicrobials, Start/End Dates: Zosyn 3.375 g IV q8h 05/15- Impression: 1. Fever and leukocytosis 2. New subcapsular hepatic collection 3. R hemorrhagic renal cyst 4. Known biliary cirrhosis 5. Positive HBcAb (+), HBsAb (-), HBsAg (-), HCV (-) 6. Previous EtOH abuse sober x 1 year Plan: 1. DC piperacillin-tazobactam 2. Care per primary and GI Pager: [phone] Luz Maria Arredondo MD - 05/20/2020 8:[address] [facility] Progress Note Ever Mckeon : 1970(49 [...] with portal HTN -Per a note from [facility] in 2002. Was on ursodiol, recently restarted [...] creatinine clearance >30 Disposition:await test results, await call center support consultant recommendations and await clinical improvement I [...] Luz Maria Garcia MD 6PM-6AM please page: [facility] Internal Medicine Luz Maria Arredondo MD - 05/19/2020 9:[address] [facility] Progress Note Ever Mckeon : [...] cirrhosis Portal HTN -Per a note from [facility] in 2002. Was on ursodiol, but hasn't taken it in years. Resumed it lastweekend; will continue until pt follows up w/ GI outpatient. Prolonged QTc - Monitor Depression, anxiety -Continuing celexa and wellbutrin. Prior meth/ETOH abuse - Sober x1 yr DVTProphylaxis: lovenox 40 q 24hr - creatinine clearance >30 Disposition:await test results, await call center support consultant recommendations and await clinical improvement I spent over 51% of total time providing counseling or incoordination of care: > 35 minutes discussed with nurse, discussed with TCC/SW, patient and family updated, I personally examined the patient and I personally reviewed chart, data, labs radiology reports. 6AM-6PM please page: Electronically signed by Luz Maria Garcia MD 6PM-6AM please page: [facility] Internal Medicine Luz Maria Arredondo MD - 05/18/2020 9:[address] [facility] Progress Note Ever Mckeon : 1970(49 [...] cirrhosis Portal HTN -Per a note from [facility] in 2002. Was on ursodiol, but hasn't taken it in years. Resumed it lastweekend; will continue until pt follows up w/ GI outpatient. Prolonged QTc - Monitor Depression, anxiety -Continuing celexa and wellbutrin. Prior meth/ETOH abuse - Sober x1 yr DVTProphylaxis: lovenox 40 q 24hr - creatinine clearance >30 Disposition:await test results, await call center support consultant recommendations and await clinical improvement I spent over 51% of total time providing counseling or incoordination of care: > 35 minutes discussed with nurse, discussed with TCC/SW, patient and family updated, I personally examined the patient and I personally reviewed chart, data, labs radiology reports. D/W RN 6AM-6PM please page: Electronically signed by Luz Maria Garcia MD 6PM-6AM please page: [facility] Internal Medicine ITMTim brown - 05/17/2020 11:32 AM EDT Nutrition rescreen completed. Chart reviewed. Patient to be monitored and followed by the diet network operations center technician. BRANDON Bunn angMarisa MD - 05/17/2020 10:00 AM EDT [facility] - Infectious Diseases Attending Progress Note Subjective: [...] couple weeks. Patient was recently admitted to [facility] for similar abdominal pain and fever from [...] for patient. Time spent 25 minutes. Pager: [phone] Kamryn Avila MD - 05/17/2020 6:42 AM [...] 05/17/2020 6:43 AM For questions/concerns please page field contact technician Urology resident Associated attestation - Corbin Solares MD - 05/17/2020 9:55 AM EDTI agree with residents assessment and plan. This patient was seen and examined by me personally. I performed a history and physical examination of the patient and discussed the management with the resident. Sveta Rcihards MD - 05/17/2020 6:[address] [facility] Progress Note Ever Mckeon : 1970(49 [...] abx. Biliary cirrhosis -Per a note from [facility] in 2002. Was on ursodiol, but hasn't taken it in years. Resumed it lastweekend; will continue until pt follows up w/ GI outpatient. Depression, anxiety -Continuing celexa and wellbutrin. DVTProphylaxis: lovenox 40 q 24hr - creatinine clearance >30 Disposition:await test results, await call center support consultant recommendations, await clinical improvement and anticipate [...] urology. 6AM-6PM please page: 6PM-6AM please page: [facility] Internal Medicine Kayla Dumont RN - 05/16/2020 3:02 [address] arrived to CT department from room 539A for a pararenal/hepatic fluid collection drain placement . Dr. Boswell in to discuss procedure with patient and informed consent obtained. Patient assisted to CT table monitor technician on.#8 fr. Pigtail drain to accordian placed right flankregion. Sutured in place.Specimen obtained. Stayfix and tegaderm applied to site.Patient tolerated procedure well. Report called to Niki Campbell on and patient transferred to room 539A. oAba staples, [facility] - 05/16/2020 10:31 AM EDTInfectious Diseases has been consulted and will manage Vancomycin at this time. Thank you for the consult. Pharmacy signing off for vancomycin dosing. Aba Kendrick [facility] Date: 05/16/20 Time: 10:31 AM documented in [...] Winston Flannery, - 05/22/2020 9:50 AM EDT [facility] Discharge Summary with Discharge DayProgress Note and [...] Medication Changes: Ever Mckeon Home Medication Instructions THERESA:[id number] Printed on:05/22/20 9738 Medication Information b complex vitamins capsule Take [...] WITH IRON vitamin D (ERGOCALCIFEROL) 1.25 MG (03824 UT) CAPS capsule Take 1 capsule by mouth once a week DIET: regular ACTIVITY: resume regular activity SIGNIFICANT DIAGNOSTIC STUDIES: CT abd/pelvis COMPLEXITY OF FOLLOW UP: [] Moderate Complexity: follow up within 7-14 calendar days (56691) [x] Severe Complexity: follow up within 7 calendar days (13243) FOLLOW UP TESTING, PENDING RESULTS ORREFERRALS AT [...] DATE CREATED AUTHOR AUTHOR'S ORGANIZ ATION 10/14/2018 [facility] DATE CREATED AUTHOR AUTHOR'S ORGANIZATIO N 01/22/2019 [facility] DATE CREATED AUTHOR AUTHOR'S ORGANIZATIO N 02/23/2019 [facility] DATE CREATED AUTHOR AUTHOR'S ORGANIZATIO N 05/17/2020 [facility] DATE CREATED AUTHOR AUTHOR'S ORGANIZATIO N 10/09/2021 [facility] Ref [facility] DATE CREATED AUTHOR AUTHOR'S ORGANIZATIO N 08/19/2022 [facility] DATE CREATED AUTHOR AUTHOR'S ORGANIZATIO N 10/17/2022 [facility] DATE CREATED AUTHOR AUTHOR'S ORGANIZATIO N 11/12/2022 [facility] DATE CREATED AUTHOR AUTHOR'S ORGANIZATIO N 11/20/2022 [facility] DATE CREATED AUTHOR AUTHOR'S ORGANIZATIO N 12/30/2022 [facility] ([place]) DATE CREATED AUTHOR AUTHOR'S ORGANIZATIO N 01/01/[address] [facility] Reason for Visit (unrecognized section a nd [...] Care Teams (unrecognized section and con tent) Small Parts Shaper Operator Relationship Specialty Start Date End Date Tim Delong, EMPLOYEE COUNSELOR - PCP - [place] [address] Care Team (unrecognized section and cont ent) Care Team Personnel Name: TIM ROBLEDO GRAPHICS EDITOR Member Role: Primary Care Physician Address: Address: [address] [place] [address] Care Team Personnel Name: TIM ROBLEDO GRAPHICS EDITOR Member Role: Primary Care Physician Address: Address: [address] [place] [address] Care Team Related Persons Name: VAIBHAV MCKEON [...] prosecute any alcohol or drug abuse patient. [facility] the event this information is protected by [facility] Confidentiality of Alcohol and Drug Abuse Patient Records regulations: This information has been disclosed to you from records protected by Federal confid entiality rules ( The Federal rules restrict any use of th e information to criminally investigate or prosecute any alcohol or drug abuse trisha ent. [facility] FOR RECORDS PERTAINING TO PATIENTS WHO ARE [...] BE BASED ON THE PRIMARY CLINICAL RECORDS. [facility] [facility]. provides no warranty or guarantee of the accuracy or completeness of information in this document.
[2023-01-02 15:48] LABS: Absolute Lymphocyte Count 0.76 X10^3/uL (0.83-4.51); Absolute Neutrophil Count 1.8 X10^3/uL (2.0-7.7); Basophil# 0.03 X10^3/uL; Basophil% 0.9 % (0-1); Eosinophil# 0.32 X10^3/uL; Eosinophils% 9.1 % (0-5); Hematocrit 39.7 % (37-47); Hemoglobin 13.2 g/dL (12.0-15.0); Lymphocyte # 0.76 X10^3/ul (0.83-4.51); Lymphocyte % 21.6 % (19-41); Mean Corp Hgb Conc 33.2 g/dL (32-36); Mean Corpuscular Hgb 30.6 pg (27.0-32.0); Mean Corpuscular Volume 92.1 fL (81-99); Mean Platelet Vol. 10.4 fl (6.2-12.0); Monocyte# 0.56 X10^3/uL; Monocyte% 15.9 % (0-10); NRBC Flagged by Analyzer 0 % (0-5); Neutrophil # 1.84 X10^3/uL (2.7-7.7); Neutrophil % 52.2 % (47-70); POSITIVE COUNT YES; Platelet Count 76 K/mm3 (150-450); RBC Distribution Width CV 14.8 % (11.6-14.6); RBC Distribution Width SD 49.6 fl (35.1-43.9); Red Blood Count 4.31 M/mm3 (4.2-5.4); White Blood Count 3.5 K/mm3 (4.4-11.0)
[2023-01-02 15:51] LABS: Bedside Glucose 71 mg/dL (74-106)
--- NOTE | 2023-01-02 15:59 | ED.RN ---
PT ASKED THIS RN TO ASSIST HER WITH CALLING HER BROTHER SHAKIRA VERDUZCO (POA). SHAKIRA TOLD THIS RN THAT THE PT WAS DISCHARGED FROM [facility] YESTERDAY. PT HAS BEEN INCONTINENT AT HOME AND HAS NOT TAKEN MEDICATIONS SINCE DISCHARGE. MR. VERDUZCO ALSO TOLD THIS RN THAT PT HAS AN ENDOSCOPE SCHEDULED AT [facility] TOMORROW.
[2023-01-02] MEDS: Lactulose 20 GM/30 ML UDC PO (16:16)
[2023-01-02 16:19] LABS: ALB/GLOB Ratio 0.8 RATIO (0.9-2.4); AST(SGOT) 37 U/L (15-37); Alanine Aminotransfer ALT/SGPT 32 U/L (13-56); Albumin, Serum 2.8 g/dL (3.2-5.0); Alkaline Phosphatase 171 U/L (45-117); Anion Gap 5 (5-15); BUN 13 mg/dL (7-18); Calcium,Total 9.1 mg/dL (8.5-10.1); Chloride 109 mmol/L (98-107); Creatinine, Serum 0.62 mg/dL (0.55-1.02); EST Glomerular Filtration Rate 107 mL/min (>60); Est Glom Filt Rate - Afr Amer 129 mL/min (>60); Estimated Creatinine Clearance 100.87 ml/min; Globulin 3.5 g/dL (2.2-4.2); Glucose 79 mg/dL (74-106); Lipase 227 U/L (73-393); Potassium 4.1 mmol/L (3.5-5.1); Protein, Total 6.3 g/dL (6.4-8.2); Sodium Level 141 mmol/L (136-145)
[2023-01-02 16:22] LABS: Bacteria 0 SEEN /hpf (None Seen); Mucous, Urine 0 SEEN /hpf (<or=2+); Red Blood Cells-Urine 0 SEEN /hpf (0-5); White Blood Cells 0 SEEN /hpf (0-5)
[2023-01-02 16:36] LABS: Color, Urine Amber (Yellow); Glucose, Dipstick Normal (Normal); Ketone-Dipstick 5 mg/dl (Negative); Leukocyte Esterase-Dipstick 25 /ul (Negative); Nitrite-Dipstick Negative (Negative); Occult Blood-Urine Negative /ul (Negative); Protein-Dipstick Negative (Negative); Urine Bilirubin Dipstick Negative (Negative); Urine Clarity Clear (Clear); Urine Urobilinogen 4 mg/dl (Normal)
[2023-01-02 16:53] LABS: Squamous Epithelial Cells - UA 0-5 SEEN /hpf (5-10)
--- NOTE | 2023-01-02 17:26 | ED.RN ---
THIS RN CALLED SHAKIRAMARIA DEL ROSARIO VERDUZCO ON BEHALF OF THE PT PER HER VERBAL CONSENT. THIS RN TOLD MR. VERDUZCO THAT THE PT WAS GOING TO BE ADMITTED. MR. VERDUZCO WAS UNABLE TO HELP WITH THE HOME MEDICATION LIST BUT DID SAY SHE IS SUPPOSED TO BE TAKING LACTULOSE.
--- NOTE | 2023-01-02 17:34 | HP.PCM.HOS_ITS ---
HPI - General General Date of Admission: 01/02/23 Date of Service: 01/02/23 Chief Complaint: Altered mental status HPI Narrative EVER VERDUZCO, is a 52 F with a history of recurrent hepatic encephalopathy, cirrhosis, PTSD who presented to [facility] 01/02/2023 with worsening mental status and disorientation. She reportedly was admitted to [facility] 12/23 and just discharged yesterday but had increasing confusion and was brought to the ED. Her brother Vaibhav has been her flatwork presser but per documentation he has had increasing difficulty caring for her and there was a comment made to an ED physician outlying facility regarding this difficulty caring for her. In the ED she had elevated ammonia of 119, ALP 171, AST ALT within normal limits as was bilirubin, lipase 227, UA negative, platelets of 76 and white blood cell count 3.5. Blood pressure 135/62 with a heart rate of 61, 97% on room air. Hospitalist consulted for admission for hepatic encephalopathy. Evaluated patient at bedside and she is resting comfortably and wakes up easily, pleasantly confused. Reports that she has had some intermittent generalized abdominal aching that she was not able to further characterize, she is unsure if she has had any bowel movements and was unable to comment about her compliance. Did not have any other complaints that she voiced. [facility] Medical History Acidosis Alcohol abuse Alcohol use Alcoholic cirrhosis of liver without ascites Anxiety and depression Bipolar disorder Cirrhosis Easy bruising Edema Essential (primary) hypertension Former smoker Gastric reflux Hepatic encephalopathy Hepatitis History of edema History of IBS History of pain when walking Hx of scarlet fever Immunity status testing Iron deficiency anemia Lactic acidosis Low urine output Pancytopenia Portal hypertension Post-menopausal Restless legs Shortness of breath on exertion Splenomegaly Thrombocytopenia Urea cycle metabolism disorder UTI (urinary tract infection) Wears dentures Wears glasses Home Medications citalopram 40 mg tablet 40 mg PO DAILY depression 10/28/22 [History Last Taken Unknown] furosemide 20 mg tablet 20 mg PO TID diuretic 10/28/22 [History Last Taken Unknown] prazosin 2 mg capsule 3 mg PO QHS sleep 10/28/22 [History Last Taken Unknown] propranolol 10 mg tablet 20 mg PO TID tremors 10/28/22 [History Last Taken Unknown] quetiapine 50 mg tablet (Seroquel) 100 mg PO QHS sleep 10/28/22 [History Last Taken Unknown] rifaximin 550 mg tablet (Xifaxan) 550 mg PO BID cirrhosis 10/28/22 [History Last Taken Unknown] bupropion HCl 300 mg 24 hr tablet, extended release 300 mg PO DAILY depression 11/18/22 [History Last Taken Unknown] ferrous sulfate 325 mg (65 mg iron) tablet 325 mg PO QODAY supplement #30 tabs 11/20/22 [Rx Last Taken Unknown] lactulose 10 gram/15 mL oral solution 30 ml PO TID cirrhosis #473 mL 11/20/22 [Rx Last Taken Unknown] spironolactone 25 mg tablet 50 mg PO DAILY 30 days #60 tabs 11/20/22 [Rx Last Taken Unknown] diazepam 10 mg tablet (Valium) 10 mg PO .COMPLEX #1 TAB 12/15/22 [Rx Last Taken Unknown] ursodiol 300 mg capsule 300 mg PO BID #180 caps 12/15/22 [Rx Last Taken Unknown] buspirone 10 mg tablet 10 - 20 mg PO TID PRN PRN Anxiety 12/17/22 [History Last Taken Unknown] ondansetron 4 mg disintegrating tablet 4 mg PO PRN PRN Nausea 12/17/22 [History Last Taken Unknown] Allergy/AdvReac Type Severity Reaction Status Date / Time No Known Allergies Allergy Verified 01/02/23 15:42 Family History Grandmother Breast cancer Surgical History History of ankle surgery Hx of section Hx of cholecystectomy Hx of hand surgery Hx of shoulder surgery Hx of total knee replacement Social History Smoking Status: Former smoker Electronic Cigarette Use: with nicotine how long ago did patient quit smoking: Transitioned from cig tob to vaping, heavy currently. alcohol intake: former year quit: 2021 details: 11/26/21 substance use type: other details: Former amphetamine/meth use, clean since 11/26/21. ROS ROS Narrative Unable to obtain full ROS secondary to mental status, reported occasionally having some abdominal discomfort but cannot describe this any further, denies chest pain or shortness of breath, unable to provide other ROS Vital Signs Vital Signs Vital Signs: 01/02/23 14:47 01/02/23 15:38 01/02/23 16:03 Temperature 96.7 F L Temperature Source Temporal Pulse Rate 61 62 65 Respiratory Rate 18 13 15 Blood Pressure 135/62 H 117/58 L 117/49 L Blood Pressure Mean 86 77 71 Pulse Ox 97 95 97 Oxygen Delivery Method Room Air Room Air Room Air 01/02/23 17:15 01/02/23 17:21 Temperature 98.6 F Temperature Source Oral Pulse Rate 68 64 Respiratory Rate 13 13 Blood Pressure 124/79 H 124/79 H Blood Pressure Mean 94 94 Pulse Ox 94 94 Oxygen Delivery Method Room Air Room Air Weight Weight: 132.5 kg Body Mass Index (BMI) 45.7 Physical Exam Narrative General: Easily woken but disoriented HEENT: Atraumatic, normocephalic Eyes: Anicteric, normal conjunctiva, extraocular movements grossly intact, does have some nystagmus on far lateral gaze bilaterally Neck: Supple Respiratory: Clear to auscultation bilaterally, normal respiratory effort Cardiovascular: Regular rate and rhythm GI: Soft, no rebound, guarding, rigidity, nondistended Extremities: No edema Musculoskeletal: Moving all extremities Neuro: No overt focal neurological deficits, would not outstretch hands to assess for asterixis Skin: No rashes appreciated Psych: Overall cooperative Results Lab / Micro Data Result Diagrams: 01/02/23 15:38 01/02/23 15:38 Labs: Laboratory Results - last 24 hr 01/02/23 15:31: POC Glucose 71 L 01/02/23 15:38: WBC 3.5 L, RBC 4.31, Hgb 13.2, Hct 39.7, MCV 92.1, MCH 30.6, MCHC 33.2, RDW Std Deviation 49.6 H, RDW Coeff of Stephon 14.8 H, Plt Count 76 L, MPV 10.4, Immature Gran % (Auto) 0.300, Neut % (Auto) 52.2, Lymph % (Auto) 21.6, [place] % (Auto) 15.9 H, Eos % (Auto) 9.1 H, Baso % (Auto) 0.9, Absolute Neuts (auto) 1.8 L, Absolute Lymphs (auto) 0.76 L, Nucleated RBC % 0 01/02/23 15:38: Sodium 141, Potassium 4.1, Chloride 109 H, Carbon Dioxide 27.0, Anion Gap 5, BUN 13, Creatinine 0.62, Estim Creat Clear Calc 100.87, Est GFR (MDRD) Af Amer 129, Est GFR (MDRD) Non-Af 107, BUN/Creatinine Ratio 21.0 H, Glucose 79, Calcium 9.1, Total Bilirubin 0.80, AST 37, ALT 32, Alkaline Phosphatase 171 H, Total Protein 6.3 L, Albumin 2.8 L, Globulin 3.5, Albumin/Globulin Ratio 0.8 L, Lipase 227 01/02/23 15:38: Ammonia 119.0 H 01/02/23 16:11: Urine Color Elena, Urine Clarity Clear, Urine pH 6.0, Ur Specific [place] 1.020, Urine Protein Negative, Urine Glucose (UA) Normal, Urine Ketones 5 H, Urine Occult Blood Negative, Urine Nitrite Negative, Urine Bilirubin Negative, Urine Urobilinogen 4 H, Ur Leukocyte Esterase 25 H, Urine RBC 0 SEEN, Urine WBC 0 SEEN, Ur Squamous Epith Cells 0-5 SEEN, Urine Bacteria 0 SEEN, Urine Mucus 0 SEEN Assessment & Plan Assessment/Plan (1) Acute hepatic encephalopathy: PLAN: Plan #Acute hepatic encephalopathy with hx alcoholic cirrhosis -Ammonia 119 in the emergency department -We will schedule lactulose, continue rifaximin -Appears somewhat dehydrated, will also give gentle hydration -We will hold Lasix and spironolactone given concern that she is mildly dehydrated -Given her altered mental status we will plan to hold Seroquel at this time -Recently established with gastroenterology 12/10/2022. She is to have outpatient endoscopy to eval for varices and gastropathy. -Based on documentation has been sober from alcohol for 1 year, will obtain serum alcohol and UDS -Case management and social work consult to assist with DC dispo given brothers report that he cannot care for her any further -If not improving can consider inpatient GI consult #Thrombocytopenia -Secondary to her cirrhosis -Appears to be at baseline #History of depression, anxiety, PTSD -Continue Wellbutrin, citalopram, prazosin -Patient tired and altered so plan to hold Seroquel until mental status improves the low threshold to resume #Morbid obesity -BMI 45.8 -Complicates treatment, prognosis, outcomes -Recommend weight loss and lifestyle changes #DVT ppx: SCDs given thrombocytopenia Zaina Champagne MD Time spent in the patient's overall evaluation,decision-making process, review of diagnostic data, adjustment of management, discussion with other providers, nursing nursing and ancillary staff involved in patient's care documentation, 60 minutes Charges/Coding Visit Charges Inpatient E&M: 08549 Init Hosp L2
--- OUTSIDE RECORDS SUMMARY | 2023-01-02 17:50 | XMS RPT_ITS | CCD ---
:1970 Author Organization [facility] Care Team Providers Name Role Phone Saw [...] Unavailable MEENA TOUSSAINT TIM Primary Care Physician TIM DELONG Attending Unavailable Unavailable Primary Care Provider Unavailable DAYO BELL Primary Care Unavailable CAVLIN URBAN Admitting Unavailable CALVIN URBAN Attending Unavailable [...] CONSTANTINE JACOBSON MD Attending Unavailable LYNDSEY JARRELL HARNESS CLEANER Admitting Unavailable LYNDSEY JARRELL NP Primary Care Unavailable LYNDSEY JARRELL HARNESS CLEANER Attending Unavailable LOIS MELGAR MD Admitting Unavailable [...] MINOPHEN] Dicyclomine Drug All[facility] (8 sources) [address] [place] [address]- [place], [place] Medications Current Medications Medication Drug Class(es) Dates Sig (Normalized) Sig (Orig inal) [id number] 200 actuat albuterol 0.09 mg/actuat metered dose inhaler beta2-Adrenergic Start: take 2 puff(s) by albuterol sulfate (1 source) Agonist 08-11-2022 inhalation every six HFA (NE OVENTIL hours as needed for HFA) 108 [...] 02/16/2019 05/16/2020 Discontin ued (LIST CLEANUP) b ygnxozi-Q-U-zinc (STRESS FORMULA W/ ZINC) 1 tablet S [...] (generalized anxiety anxiety disorder) , Mood disorder ([facility]) TAKE 1 TO 2 TA BLETS [...] in the morning Indications: Mood d isorder ([facility]) Take 1 tablet by starr th [...] 30 tab(s), 0 Refill(s), Pharmacy: [id number], 165, cm, 08/15 11:32:00 EST, Height Start [...] tab(s), 0 Refill(s), Phar prashant: [facility] #[id number], 165 , cm, 10/03/22 11:32: 00 EST, [...] 0 Refill(s), 12/02/22 7:43:0 0 EST, Pharmacy: [id number], 165.1, cm , 10/31/22 1:25:0 0 EST, Height Sta rt Date: 11/02/22 St op Date: 12/02/22 Status: Ordered Start: 10-07-2022 take 1 dose by mouth every six lactulose 10 g/15 mL oral syrup Dose End: 11-06-2022 hours : 30 gram(s) = 45 mL , Oral, q6h, X 30 day(s), # 5,400 m L, 0 Refill(s), 11/06/22 11:45:00 ES T, Pharmacy: [facility] #[id number], 165 , cm, 10/03/22 11:32:00 EST, Height [...] not crush or break. polyethylene glycol 3350 96528 mg powder for oral solution O smotic [...] TID, # 90 tab(s), 0 Refill(s), Pharmacy: [facility] #[id number], 165 , cm, 10/03/22 11:32:00 EST, Height [...] Start Date: 10/31/22 St atus: Ordered sennosides, mcfp 8.6 mg oral tablet Start: 05-11-2020 senna [...] as Pain Moderate (4-6), needed for Starting [facility] pain at 0205 Maximum dose of [...] End: 05-17-2020 0230 Start: 05-07-2020 lactated [facility] End: 05-08-2020 cefTRIAXone (ROCEPHIN) 1 g IVPB in 50 mL D5W minibag S tart: 05-08-2020 cefTRIAXone (1 source) End: 05-08-2020 (ROCEPHIN) 1 g IVPB in 50 mL D 5W minibag docusate sodium 50 mg / sennosides, mcfp 8.6 mg oral tablet Start: 05-19-2020 sennosides-docusat (1 source) End: 05-21-2020 e sodium (SENOKOT-S) 8.6 -50 MG tablet 2 tab let ergocalciferol 1.25 mg oral capsule Provitamin D2 Start: 05-27-2020 take 1 vitamin D (6 sources) Compound End: 08-23-2021 capsule by (ERGOCALCIFE ROL) mouth every 1.25 MG (23107 UT) week CAPS capsule Ta ke 1 capsule by mo ut once a week 5 capsule 0 05/27/2020 08/23/2021 Discontinued (L IST CLEANUP) Start: 05-27-2020 take 1 capsule by mouth every vitamin D (ERGOCALCIFEROL) 1.25 MG week (07208 UT) CAPS caps ule Take 1 capsule [...] primary osteoarthritis, left knee] Other aftercare Other intermodal dispatcher Onset: Episodic (1 source) (current) drug therapy; Translations: 3 [Other intermodal dispatcher (current) drug therapy] Other bone disease and [...] elsewhere classified] Other liver diseases Primary biliary Supervisor Kennel robyn (1 source) cholangitis; Translations: [Primary biliary [...] x10EE3/UL Normal 0.00 - 0.10 [facility] Comment on above: Performed By: #### [id number] ## ##[facility],[address] [place] [address] Basophils/100 WBC (Bld) 0.8 % Normal 0.0 - 2.0 [facility] Comment on above: Performed By: #### [id number] ## ##[facility],[address] [place] [address] CBC + DIFF DAILY Normal [facility] Comment on above: Result Comment: CBC-COMPLETE BLOOD COUNT Performed By: #### [id number] ## ##[facility],[address] [place] [address] EO # 0.20 x10EE3/UL Normal 0.00 - 0.50 [facility] Comment on above: Performed By: #### [id number] ## ##[facility],[address] [place], [place] [id number] Eosinophils/100 WBC (Bld) 7.7 % High 0.0 - 7.0 [facility] Comment on above: Performed By: #### [id number] ## ##[facility],[address] [place] [address] Erythrocyte distribution width 16.1 % High 12.0 - 15. 6 [facility] (RBC) [Ratio] Hospital Comment on above: Performed By: #### [id number] ## ##[facility],[address] [place] [address] Hematocrit (Bld) [Volume 36.8 % Normal 34.0 - 46.0 [facility]] [facility] Comment on above: Performed By: #### [id number] ## ##[facility],[address] [place], [place] [id number] Hemoglobin (Bld) [Mass/Vol] 12.2 g/dL Normal 12.0 - 16.0 [facility] Comment on above: Performed By: #### [id number] ## ##[facility],[address] [place] [address] Lymph # 1.00 x10EE3/UL Normal 0.80 - 2.80 [facility] Comment on above: Performed By: #### [id number] ## ##[facility],[address] [place] [address] Lymphocytes/100 WBC (Bld) 32.5 % Normal 20.0 - 45.0 [facility] Comment on above: Performed By: #### [id number] ## ##[facility],[address] [place] [address] MANUAL DIFF N/A Normal [facility] Comment on above: Performed By: #### [id number] ## ##[facility],[address] [place] [address] 09571 MCH (RBC) [Entitic mass] 31 pg Normal 27 - 33 [facility] Comment on above: Performed By: #### [id number] ## ##[facility],[address] [place] [address] 52266 MCHC 33 X10 3 Normal 32 - 36 [facility] Comment on above: Performed By: #### [id number] ## ##[facility],[address] [place] [address] 51928 MCV (RBC) [Entitic vol] 92 fL Normal 80 - 99 [facility] Comment on above: Performed By: #### [id number] ## ##[facility],[address] [place] [address] [place] # 0.40 x10EE3/UL Normal 0.20 - 1.00 [facility] Comment on above: Performed By: #### [id number] ## ##[facility],[address] [place] [address] 75337 MONOS % 14.4 % High 0.0 - 10.0 [facility] Comment on above: Performed By: #### [id number] ## ##[facility],[address] [place] [address] 26445 Morphology Giovanni (Bld) [Interp] N/A Normal [facility] Comment on above: Performed By: #### [id number] ## ##[facility],[address] [place] [address] 47404 Neut # 1.40 x10EE3/UL Low 1.50 - 7.10 [facility] Comment on above: Performed By: #### [id number] ## ##[facility],[address] [place] [address] 67047 Neutrophils/100 WBC (Bld) 44.6 % Low 46.0 - 76.0 [facility] Comment on above: Performed By: #### [id number] ## ##[facility],[address] [place] [address] 51955 PLATELET 78 x10EE3/UL Low 150 - 450 [facility] Comment on above: Performed By: #### [id number] ## ##[facility],[address] [place] [address] 10155 Platelet mean volume (Bld) 9.1 fL Normal 6.6 - 10.5 [facility] [[facility]] [facility] Comment on above: Result Comment: AUTOMATED DI FFERENTIAL Performed By: #### [id number] ## ##[facility],[address] [place] [address] 72594 RBC 3.99 x 10EE6/UL Low 4.10 - 5.30 [facility] Comment on above: Performed By: #### [id number] ## ##[facility],[address] [place] [address] 96715 WBC 3.1 x 10EE3/UL Low 4.5 - 10.8 [facility] Comment on above: Performed By: #### [id number] ## ##[facility],[address] [place] [address] CBC + DIFF DAILY on 12-31-2022 CBC + DIFF DAILY Normal [facility] Comment on above: Result Comment: CBC-COMPLETE BLOOD COUNT Performed By: #### [id number] ## ## [facility],[address] [place] [address] CELL COUNT 100 Normal [facility] Comment on above: Performed By: #### [id number] ## ## [facility],[address] [place] [address] EO 8.0 % High 0.0 - 4.0 [facility] Comment on above: Performed By: #### [id number] ## ## [facility],[address] [place] [address] Erythrocyte distribution width 16.5 % High 12.0 - 15. 6 [facility] (RBC) [Ratio] [facility] Comment on above: Performed By: #### [id number] ## ## [facility],[address] [place] [address] Hematocrit (Bld) [Volume 38.3 % Normal 34.0 - 46.0 [facility] Comment on above: Performed By: #### [id number] ## ## [facility],[address] [place] [address] Hemoglobin (Bld) [Mass/Vol] 12.7 g/dL Normal 12.0 - 16.0 [facility] Comment on above: Performed By: #### [id number] ## ## [facility],[address] [place] [address] Lymphocytes/100 WBC (Bld) 24 % Normal 20 - 40 [facility] Comment on above: Performed By: #### [id number] ## ## [facility],[address] [place] [address] MANUAL DIFF SEE BELOW Normal [facility] Comment on above: Performed By: #### [id number] ## ## [facility],[address] [place] [address] MCH (RBC) [Entitic mass] 30 pg Normal 27 - 33 [facility] Comment on above: Performed By: #### [id number] ## ## [facility],[address] [place] [address] MCHC 33 X10 3 Normal 32 - 36 [facility] Comment on above: Performed By: #### [id number] ## ## [place] [address] MCV (RBC) [Entitic vol] 92 fL Normal 80 - 99 [facility] Comment on above: Performed By: #### [id number] ## ## [facility],[address] [place] [address] MONOS 11 % High 0 - 8 [facility] Comment on above: Performed By: #### [id number] ## ## [place] [address] Morphology Giovanni (Bld) [Interp] REVIEWED Normal [facility] Comment on above: Performed By: #### [id number] ## ## [place] [address] PLATELET 79 x10EE3/UL Low 150 - 450 [facility] Comment on above: Performed By: #### [id number] ## ## [place] [address] Platelet mean volume (Bld) 8.4 fL Normal 6.6 - 10.5 [facility] [Entitic vol] [facility] Comment on above: Result Comment: AUTOMATED DI FFERENTIAL Performed By: #### [id number] ## ## [address],[place] [address] RBC 4.17 x 10EE6/UL Normal 4.10 - 5.30 [facility] Comment on above: Performed By: #### [id number] ## ## [facility],[address] [place] [address] 21381 SEGS 57 % Normal 50 - 70 [facility] Comment on above: Performed By: #### [id number] ## ## [facility],[address] [place] [address] 42307 WBC 3.6 x 10EE3/UL Low 4.5 - 10.8 [facility] Comment on above: Performed By: #### [id number] ## ## [facility],[address] [place], [place] [id number] CBC + DIFF DAILY on 12-30-2022 CBC + DIFF DAILY Normal [facility] Comment on above: Result Comment: CBC-COMPLETE BLOOD COUNT Performed By: #### [id number] ## ## [facility],[address] [place] [address] 24688 EO 8.0 % High 0.0 - 4.0 [facility] Comment on above: Performed By: #### [id number] ## ## [facility],[address] [place] [address] 88215 EO # 0.30 x10EE3/UL Normal 0.00 - 0.50 [facility] Comment on above: Performed By: #### [id number] ## ## [facility],[address] [place] [address] 8[address]13 Erythrocyte distribution width 15.7 % High 12.0 - 15. 6 [facility] (RBC) [Ratio] [facility] Comment on above: Performed By: #### [id number] ## ## [facility],[address] [place] [address] 18517 Hematocrit (Bld) [Volume 37.3 % Normal 34.0 - 46.0 [facility] Comment on above: Performed By: #### [id number] ## ## [facility],[address] [place] [address] Hemoglobin (Bld) [Mass/Vol] 12.3 g/dL Normal 12.0 - 16.0 [facility] Comment on above: Performed By: #### [id number] ## ## [facility],[address] [place] [address] Lymph # 1.30 x10EE3/UL Normal 0.80 - 2.80 [facility] Comment on above: Performed By: #### [id number] ## ## [facility],[address] [place] [address] Lymphocytes/100 WBC (Bld) 38 % Normal 20 - 40 [facility] Comment on above: Performed By: #### [id number] ## ## [facility],[address] [place] [address] MANUAL DIFF SEE BELOW Normal [facility] Comment on above: Performed By: #### [id number] ## ## [facility],[address] [place] [address] MCH (RBC) [Entitic mass] 29 pg Normal 27 - 33 [facility] Comment on above: Performed By: #### [id number] ## ## [facility],[address] [place] [address] MCHC 33 X10 3 Normal 32 - 36 [facility] Comment on above: Performed By: #### [id number] ## ## [facility],[address] [place], [place] [id number] MCV (RBC) [Entitic vol] 89 fL Normal 80 - 99 [facility] Comment on above: Performed By: #### [id number] ## ## [facility],[address] [place] [address] [place] # 0.30 x10EE3/UL Normal 0.20 - 1.00 [facility] Comment on above: Performed By: #### [id number] ## ## [facility],[address] [place] [address] 60324 MONOS 8 % Normal 0 - 8 [facility] Comment on above: Performed By: #### [id number] ## ## [facility],[address] [place] [address] 97289 Morphology Giovanni (Bld) [Interp] NORMAL Normal [facility] Comment on above: Performed By: #### [id number] ## ## [facility],[address] [place] [address] 40130 Neut # 1.50 x10EE3/UL Normal 1.50 - 7.10 [facility] Comment on above: Performed By: #### [id number] ## ## [facility],[address] [place] [address] 11399 PLATELET 72 x10EE3/UL Low 150 - 450 [facility] Comment on above: Performed By: #### [id number] ## ## [facility],[address] [place] [address] 77690 Platelet mean volume (Bld) 8.4 fL Normal 6.6 - 10.5 [facility] [[facility] Comment on above: Result Comment: AUTOMATED DI FFERENTIAL Performed By: #### [id number] ## ## [facility],[address] [place] [address] 62901 RBC 4.18 x 10EE6/UL Normal 4.10 - 5.30 [facility] Comment on above: Performed By: #### [id number] ## ## [facility],[address] [place] [address] 36402 SEGS 46 % Low 50 - 70 [facility] Comment on above: Performed By: #### [id number] ## ## [facility],[address] [place] [address] 37599 WBC 3.3 x 10EE3/UL Low 4.5 - 10.8 [facility] Comment on above: Performed By: #### [id number] ## ## [facility],[address] [place], [place] [id number] EMERGENCY REPORT on 12-30-2022 EMERGENCY REPORT [facility] Normal [facility] EMERGENCY ROOM REPORT NAME ACCOUNT SEX AGE ADMIT DISCHARGE PT MED. RECORD# NUMBER DATE DATE TYPE LINDA [id number] F 52 12/22/22 3 [facility] [id number] ROOM: ER DATE OF : 1970 DICTATING [...] fairly well. She had been admitted to [facility] over a month ago and to [place] several weeks ago. He states that she [...] room. She was apparently playing in the [employer] and seemed very confused and uncooperative. He [...] this she is supposed to go to [facility] . He did not know the name [...] does not appear in any distress. SKIN: [place], warm and dry. HEENT: Normal. NECK: Supple. [...] Paulo Garcia MD 12/22/22 20:51 JOB #: [id number] Transcribed By: irwin 12/22/22 21:52 Electronically signed by: NORBERT Garcia M.D. 12/30/22 07:05 Page 2 of 2 [facility] Report CBC + DIFF DAILY on 12-29-2022 Baso # 0.00 x10EE3/UL Normal 0.00 - 0.10 [facility] Comment on above: Performed By: #### [id number] ## ##[facility],[address] [place] [address] 78496 Basophils/100 WBC (Bld) 1.5 % Normal 0.0 - 2.0 [facility] Comment on above: Performed By: #### [id number] ## ##[facility],[address] [place] [address] 85168 CBC + DIFF DAILY Normal [facility] Comment on above: Result Comment: CBC-COMPLETE BLOOD COUNT Performed By: #### [id number] ## ##[facility],[address] [place] [address] 19128 EO # 0.30 x10EE3/UL Normal 0.00 - 0.50 [facility] Comment on above: Performed By: #### [id number] ## ##[facility],[address] [place] [address] 01285 Eosinophils/100 WBC (Bld) 8.6 % High 0.0 - 7.0 [facility] Comment on above: Performed By: #### [id number] ## ##[facility],[address] [place] [address] 23148 Erythrocyte distribution width 16.1 % High 12.0 - 15. 6 [facility] (RBC) [Ratio] [facility] Comment on above: Performed By: #### [id number] ## ##[facility],[address] [place] [address] 78847 Hematocrit (Bld) [Volume 38.7 % Normal 34.0 - 46.0 [facility] Comment on above: Performed By: #### [id number] ## ##[facility],[address] [place] [address] 35667 Hemoglobin (Bld) [Mass/Vol] 12.7 g/dL Normal 12.0 - 16.0 [facility] Comment on above: Performed By: #### [id number] ## ##[place] [address] Lymph # 0.90 x10EE3/UL Normal 0.80 - 2.80 [facility] Comment on above: Performed By: #### [id number] ## ##[place] [address] Lymphocytes/100 WBC (Bld) 30.0 % Normal 20.0 - 45.0 [facility] Comment on above: Performed By: #### [id number] ## ##[place] [address] MANUAL DIFF N/A Normal [facility] Comment on above: Performed By: #### [id number] ## ##[place] [address] MCH (RBC) [Entitic mass] 30 pg Normal 27 - 33 [facility] Comment on above: Performed By: #### [id number] ## ##[place] [address] MCHC 33 X10 3 Normal 32 - 36 [facility] Comment on above: Performed By: #### [id number] ## ##[place] [address] MCV (RBC) [Entitic vol] 91 fL Normal 80 - 99 [facility] Comment on above: Performed By: #### [id number] ## ##[place] [address] [place] # 0.40 x10EE3/UL Normal 0.20 - 1.00 [facility] Comment on above: Performed By: #### [id number] ## ##[place] [address] MONOS % 14.6 % High 0.0 - 10.0 [facility] Comment on above: Performed By: #### [id number] ## ##[facility],[address] [place] [address] 85311 Morphology Giovanni (Bld) [Interp] N/A Normal [facility] Comment on above: Performed By: #### [id number] ## ##[facility],[address] [place] [address] 56021 Neut # 1.40 x10EE3/UL Low 1.50 - 7.10 [facility] Comment on above: Performed By: #### [id number] ## ##[facility],[address] [place] [address] Neutrophils/100 WBC (Bld) 45.3 % Low 46.0 - 76.0 [facility] Comment on above: Performed By: #### [id number] ## ##[place] [address] PLATELET 67 x10EE3/UL Low 150 - 450 [facility] Comment on above: Performed By: #### [id number] ## ##[facility],[address] [place] [address] Platelet mean volume (Bld) 9.0 fL Normal 6.6 - 10.5 [facility] [[facility]] [facility] Comment on above: Result Comment: AUTOMATED DI FFERENTIAL Performed By: #### [id number] ## ##[facility],[address] [place] [address] 32320 RBC 4.23 x 10EE6/UL Normal 4.10 - 5.30 [facility] Comment on above: Performed By: #### [id number] ## ##[facility],[address] [place], [place] [id number] WBC 3.0 x 10EE3/UL Low 4.5 - 10.8 [facility] Comment on above: Performed By: #### [id number] ## ##[facility],[address] [place] [address] CORONAVIRUS (SARS) ANTIGEN TEST on EXTERNAL QC DONE? YES Normal [facility] Comment on above: Performed By: #### [id number] ## ## [facility],[address] [place] [address]96[address] INTERNAL CONTROL PASS Normal [facility] Comment on above: Performed By: #### [id number] ## ## [facility],[address] [place] [address],[facility] [address] SARS ANTIGEN Negative Normal NORMAL: NEGATIVE [facility] Comment on above: Performed By: #### [id number] ## ## [facility],[address] [place], [place] [id number] SEND TO IC? YES Normal [facility] Comment on above: Result Comment: SARS-CoV-2 THIS TEST IS BEING USED UNDE R THE FDA EUA PROCEDURE. THIS ASSAY HAS BEEN VALIDATED AT [facility] FOR USE WITH NASAL AND NASOPHARYNGEAL SWAB [...] WITH PUBLIC HEALTH AUTHORITIES. Performed By: #### [id number] ## ## [facility],[address] [place], [place] [id number] AMMONIA on 12-28-2022 Ammonia (P) [Moles/Vol] 100.0 umol/L High 11.0 - 32.0 [facility] Comment on above: Performed By: #### [id number] ## ## [place] [address] CBC + DIFF DAILY on 12-28-2022 Baso # 0.00 x10EE3/UL Normal 0.00 - 0.10 [facility] Comment on above: Performed By: #### [id number] ## ## [address] [address] Basophils/100 WBC (Bld) 1.0 % Normal 0.0 - 2.0 [facility] Comment on above: Performed By: #### [id number] ## ## [address] [address] CBC + DIFF DAILY Normal [facility] Comment on above: Result Comment: CBC-COMPLETE BLOOD COUNT Performed By: #### [id number] ## ## [address] [address] EO # 0.30 x10EE3/UL Normal 0.00 - 0.50 [facility] Comment on above: Performed By: #### [id number] ## ## [address] [address] Eosinophils/100 WBC (Bld) 8.9 % High 0.0 - 7.0 [facility] Comment on above: Performed By: #### [id number] ## ## [facility],[address] [place] [address] Erythrocyte distribution width 16.6 % High 12.0 - 15. 6 [facility] (RBC) [Ratio] Hospital Comment on above: Performed By: #### [id number] ## ## [facility],[address] [place] [address] Hematocrit (Bld) [Volume 37.6 % Normal 34.0 - 46.0 [facility] Comment on above: Performed By: #### [id number] ## ## [facility],[address] [place] [address] Hemoglobin (Bld) [Mass/Vol] 12.5 g/dL Normal 12.0 - 16.0 [facility] Comment on above: Performed By: #### [id number] ## ## [facility],[address] [place] [address] Lymph # 1.00 x10EE3/UL Normal 0.80 - 2.80 [facility] Comment on above: Performed By: #### [id number] ## ## [place] [address] Lymphocytes/100 WBC (Bld) 33.6 % Normal 20.0 - 45.0 [facility] Comment on above: Performed By: #### [id number] ## ## [facility],[address] [place] [address] MANUAL DIFF REVIEWED Normal [facility] Comment on above: Performed By: #### [id number] ## ## [facility],[address] [place] [address] MCH (RBC) [Entitic mass] 30 pg Normal 27 - 33 [facility] Comment on above: Performed By: #### [id number] ## ## [facility],[address] [place], [place] [id number] MCHC 33 X10 3 Normal 32 - 36 [facility] Comment on above: Performed By: #### [id number] ## ## [facility],[address] [place] [address] 06903 MCV (RBC) [Entitic vol] 91 fL Normal 80 - 99 [facility] Comment on above: Performed By: #### [id number] ## ## [facility],[address] [place] [address] [place] # 0.40 x10EE3/UL Normal 0.20 - 1.00 [facility] Comment on above: Performed By: #### [id number] ## ## [facility],[address] [place], [place] [id number] MONOS % 13.6 % High 0.0 - 10.0 [facility] Comment on above: Performed By: #### [id number] ## ## [facility],[address] [place], [place] [id number] Morphology Giovanni (Bld) [Interp] SEE BELOW Normal [facility] Comment on above: Performed By: #### [id number] ## ## [facility],[address] [place], [place] [id number] Neut # 1.20 x10EE3/UL Low 1.50 - 7.10 [facility] Comment on above: Performed By: #### [id number] ## ## [facility],[address] [place], [place] [id number] Neutrophils/100 WBC (Bld) 42.9 % Low 46.0 - 76.0 [facility] Comment on above: Performed By: #### [id number] ## ## [facility],[address] [place], [place] [id number] PLATELET 60 x10EE3/UL Low 150 - 450 [facility] Comment on above: Performed By: #### [id number] ## ## [facility],[address] [place] [address] 33244 Platelet mean volume (Bld) 8.7 fL Normal 6.6 - 10.5 [facility] [[facility]] [facility] Comment on above: Result Comment: AUTOMATED DI FFERENTIAL Performed By: #### [id number] ## ## [facility],[address] [place] [address] 16320 PLT EST DECREASED Normal [facility] Comment on above: Performed By: #### [id number] ## ## [facility],[address] [place] [address] 12311 RBC 4.14 x 10EE6/UL Normal 4.10 - 5.30 [facility] Comment on above: Performed By: #### [id number] ## ## [facility],[address] [place] [address] 48418 WBC 2.9 x 10EE3/UL Low 4.5 - 10.8 [facility] Comment on above: Performed By: #### [id number] ## ## [facility],[address] [place] [address] 80972 AMMONIA on 12-27-2022 Ammonia (P) [Moles/Vol] 114.0 umol/L High 11.0 - 32.0 [facility] Comment on above: Performed By: #### [id number] ## ## [facility],[address] [place] [address] 36150 AMMONIA on 12-26-2022 Ammonia (P) [Moles/Vol] 119.0 umol/L High 11.0 - 32.0 [facility] Comment on above: Performed By: #### [id number] ## ## [facility],[address] [place] [address] 59870 EMERGENCY REPORT on 12-26-2022 EMERGENCY REPORT [facility] Normal [facility] EMERGENCY ROOM REPORT NAME ACCOUNT SEX AGE ADMIT DISCHARGE PT MED. RECORD# NUMBER DATE DATE TYPE LINDA, [id number] F 52 12/23/22 1 EVER [id number] ROOM: 302 DATE OF : 1970 DICTATING [...] to Vaibhav is her medical power of claims attorney at this time. She has her own medical power of claims attorney which and she has not been [...] try to get her a dmitted to [facility]. She has been here for over 15 hours. We still do not have a bed f or her, but in light of her issues I think her main issue has been noncompliance with not taking her lactulose. I think if we admit her here and she takes her lactulose we can t hen get her hopefully admitted to a shelter or group home where she can be cared for. I [...] Report EVER MCKEON : 1970 JOB #: [id number] Transcribed By: [email or web address] 12/23/22 19:39 Electronically signed by: NORBERT Gandhi DO 12/26/22 08:34 Page 2 of 2 [facility] Emergency Room Report AMMONIA on 12-25-2022 Ammonia (P) [Moles/Vol] 177.0 umol/L High 11.0 - 32.0 [facility] Comment on above: Performed By: #### [id number] ## ## [facility],[address] [place] [address] Ammonia (P) [Moles/Vol] 185.0 umol/L High 11.0 - 32.0 [facility] Comment on above: Performed By: #### [id number] ## ##[facility],[address] [place], [place] [id number] CBC + DIFF on 12-25-2022 Baso # 0.00 x10EE3/UL Normal 0.00 - 0.10 [facility] Comment on above: Performed By: #### [id number] ## ## [facility],[address] [place] [address] 19237 Basophils/100 WBC (Bld) 0.6 % Normal 0.0 - 2.0 [facility] Comment on above: Performed By: #### [id number] ## ## [facility],[address] [place], [place] [address] CBC + DIFF Normal [facility] Comment on above: Result Comment: CBC-COMPLETE BLOOD COUNT Performed By: #### [id number] ## ## [facility],[address] [place] [address] 89525 EO # 0.30 x10EE3/UL Normal 0.00 - 0.50 [facility] Comment on above: Performed By: #### [id number] ## ## [facility],[address] [place], [place] [id number] Eosinophils/100 WBC (Bld) 6.9 % Normal 0.0 - 7.0 [facility] Comment on above: Performed By: #### [id number] ## ## [facility],[address] [place] [address] Erythrocyte distribution width 16.9 % High 12.0 - 15. 6 [facility] (RBC) [Ratio] [facility] Comment on above: Performed By: #### [id number] ## ## [place] [address] Hematocrit (Bld) [Volume 39.7 % Normal 34.0 - 46.0 [facility] Comment on above: Performed By: #### [id number] ## ## [facility],[address] [place], [place] [id number] Hemoglobin (Bld) [Mass/Vol] 13.3 g/dL Normal 12.0 - 16.0 [facility] Comment on above: Performed By: #### [id number] ## ## [facility],[address] [place] [address] 43318 Lymph # 1.30 x10EE3/UL Normal 0.80 - 2.80 [facility] Comment on above: Performed By: #### [id number] ## ## [facility],[address] [place], [place] [id number] Lymphocytes/100 WBC (Bld) 31.3 % Normal 20.0 - 45.0 [facility] Comment on above: Performed By: #### [id number] ## ## [facility] [place] [address] MANUAL DIFF REVIEWED Normal [facility] Comment on above: Performed By: #### [id number] ## ## [facility],[address] [place] [address] MCH (RBC) [Entitic mass] 30 pg Normal 27 - 33 [facility] Comment on above: Performed By: #### [id number] ## ## [facility],[address] [place] [address] MCHC 34 X10 3 Normal 32 - 36 [facility] Comment on above: Performed By: #### [id number] ## ## [facility],[address] [place] [address] MCV (RBC) [Entitic vol] 91 fL Normal 80 - 99 [facility] Comment on above: Performed By: #### [id number] ## ## [facility],[address] [place] [address] [place] # 0.70 x10EE3/UL Normal 0.20 - 1.00 [facility] Comment on above: Performed By: #### [id number] ## ## [facility],[address] [place] [address] MONOS % 15.8 % High 0.0 - 10.0 [facility] Comment on above: Performed By: #### [id number] ## ## [facility],[address] [place], [place] [id number] Morphology Giovanni (Bld) [Interp] REVIEWED Normal [facility] Comment on above: Performed By: #### [id number] ## ## [facility],[address] [place] [address] Neut # 1.90 x10EE3/UL Normal 1.50 - 7.10 [facility] Comment on above: Performed By: #### [id number] ## ## [facility],[address] [place] [address] 70678 Neutrophils/100 WBC (Bld) 45.4 % Low 46.0 - 76.0 [facility] Comment on above: Performed By: #### [id number] ## ## [facility],[address] [place] [address] 36005 PLATELET 74 x10EE3/UL Low 150 - 450 [facility] Comment on above: Performed By: #### [id number] ## ## [facility],[address] [place] [address] 19942 Platelet mean volume (Bld) 9.0 fL Normal 6.6 - 10.5 [facility] [[facility]] [facility] Comment on above: Result Comment: AUTOMATED DI FFERENTIAL Performed By: #### [id number] ## ## [facility],[address] [place] [address] 56497 RBC 4.37 x 10EE6/UL Normal 4.10 - 5.30 [facility] Comment on above: Performed By: #### [id number] ## ## [facility],[address] [place] [address] 00950 WBC 4.1 x 10EE3/UL Low 4.5 - 10.8 [facility] Comment on above: Performed By: #### [id number] ## ## [facility],[address] [place] [address] 89808 CMP with eGFR on 12-25-2022 AGE 52 years Normal [facility] Comment on above: Performed By: #### [id number] ## ## [facility],[address] [place] [address] 07092 Albumin [Mass/Vol] 2.5 g/dL Low 3.4 - 5.0 [facility] Comment on above: Performed By: #### [id number] ## ## [facility],[address] [place] [address] 04124 Albumin/Globulin [Mass ratio] 0.8 {ratio} Low 0.9 - 1.6 [facility] Comment on above: Performed By: #### [id number] ## ## [facility],[address] [place] [address] 37146 ALK PHOS 141 U/L High 46 - 116 [facility] Comment on above: Performed By: #### [id number] ## ## [facility],[address] [place] [address] 65234 ALT [Catalytic activity/Vol] 29 U/L Normal 14 - 59 [facility] Comment on above: Performed By: #### [id number] ## ## [facility],[address] [place] [address] 72598 Anion gap [Moles/Vol] 8 mmol/L Low 10 - 20 [facility] Comment on above: Performed By: #### [id number] ## ## [facility],[address] [place] [address] 74757 AST [Catalytic activity/Vol] 34 U/L Normal 13 - 39 [facility] Comment on above: Performed By: #### [id number] ## ## [facility],[address] [place] [address] 63992 B/C RATIO 16 ratio Normal 0 - 30 [facility] Comment on above: Performed By: #### [id number] ## ## [facility],[address] [place] [address] 51239 Bilirubin [Mass/Vol] 0.8 mg/dL Normal 0.2 - 1.0 [facility] Comment on above: Performed By: #### [id number] ## ## [facility],[address] [place] [address] 73863 Calcium [Mass/Vol] 9.6 mg/dL Normal 8.5 - 10.1 [facility] Comment on above: Performed By: #### [id number] ## ## [facility],[address] [facility] [address] Chloride [Moles/Vol] 105 mmol/L Normal 98 - 107 [facility] Comment on above: Performed By: #### [id number] ## ## [facility],[address] [facility] [address]230 CMP with eGFR Normal [facility] Comment on above: Result Comment: COMPREHENSIV E METABOLIC PANEL Performed By: #### [id number] ## ## [facility],[address] [facility] [address] CO2 [Moles/Vol] 27.4 mmol/L Normal 21.0 - 32.0 [facility] Comment on above: Performed By: #### [id number] ## ## [facility],[address] [place] [address] 70752 Creatinine [Mass/Vol] 0.86 mg/dL Normal 0.55 - 1.02 [facility] Comment on above: Performed By: #### [id number] ## ## [facility],[address] [place] [address] 49993 GFR/1.73 sq M.predicted mL/min/{1.73_m2} Normal 60 - 999 [facility] among non-blacks MDRD Hospit al (S/P/Bld) [Vol rate/Area] Comment on above: Performed By: #### [id number] ## ## [facility],[address] [place] [address] 10280 Result Comment: ACCORDING TO THE NATIONAL KIDNEY [...] g/dL Normal 1.5 - 3.8 [facility] Comment on above: Performed By: #### [id number] ## ## [facility],[address] [place] [address] 17738 Glucose [Mass/Vol] 123 mg/dL High 74 - 106 [facility] Comment on above: Performed By: #### [id number] ## ## [facility],[address] [place] [address] 44796 Potassium [Moles/Vol] 3.8 mmol/L Normal 3.5 - 5.1 [facility] Comment on above: Performed By: #### [id number] ## ## [facility],[address] [place] [address] 12084 Protein [Mass/Vol] 5.6 g/dL Low 6.4 - 8.2 [facility] Comment on above: Performed By: #### [id number] ## ## [facility],[address] [place] [address] 88223 Sodium [Moles/Vol] 137 mmol/L Normal 136 - 145 [facility] Comment on above: Performed By: #### [id number] ## ## [facility],[address] [place] [address] 99432 Urea nitrogen [Mass/Vol] 14 mg/dL Normal 7 - 18 [facility] Comment on above: Performed By: #### [id number] ## ## [facility],[address] [place] [address] 15899 TROPONIN I, HIGH SENSITIVITY on 023 HS TROPONIN 5.5 pg/mL Normal 0.0 - 51.4 [facility] Comment on above: Performed By: #### [id number] ## ## [facility],[address] [place] [address] 26071 AMMONIA on 12-24-2022 Ammonia (P) [Moles/Vol] 66.0 umol/L High 11.0 - 32.0 [facility] Comment on above: Performed By: #### [id number] ## ## [facility],[address] [place] [address] 06458 CBC + DIFF on 12-24-2022 Baso # 0.00 x10EE3/UL Normal 0.00 - 0.10 [facility] Comment on above: Performed By: #### [id number] ## ##[facility],[address] [place] [address] 63984 Basophils/100 WBC (Bld) 0.8 % Normal 0.0 - 2.0 [facility] Comment on above: Performed By: #### [id number] ## ##[facility],[address] [place] [address] 73091 CBC + DIFF Normal [facility] Comment on above: Result Comment: CBC-COMPLETE BLOOD COUNT Performed By: #### [id number] ## ##[facility],[address] [place] [address] 94996 EO # 0.30 x10EE3/UL Normal 0.00 - 0.50 [facility] Comment on above: Performed By: #### [id number] ## ##[facility],[address] [place] [address] 78115 Eosinophils/100 WBC (Bld) 6.8 % Normal 0.0 - 7.0 [facility] Comment on above: Performed By: #### [id number] ## ##[facility],[address] [place] [address] 55172 Erythrocyte distribution width 17.1 % High 12.0 - 15. 6 [facility] (RBC) [Ratio] [facility] Comment on above: Performed By: #### [id number] ## ##[facility],[address] [place] [address] 48481 Hematocrit (Bld) [Volume 40.1 % Normal 34.0 - 46.0 [facility] Comment on above: Performed By: #### [id number] ## ##[facility],[address] [place] [address] 12364 Hemoglobin (Bld) [Mass/Vol] 13.5 g/dL Normal 12.0 - 16.0 [facility] Comment on above: Performed By: #### [id number] ## ##[facility],[address] [place] [address] Lymph # 1.50 x10EE3/UL Normal 0.80 - 2.80 [facility] Comment on above: Performed By: #### [id number] ## ##[facility],[address] [place] [address] Lymphocytes/100 WBC (Bld) 35.0 % Normal 20.0 - 45.0 [facility] Comment on above: Performed By: #### [id number] ## ##[facility],[address] [place] [address] MANUAL DIFF REVIEWED Normal [facility] Comment on above: Performed By: #### [id number] ## ##[facility],[address] [place] [address] MCH (RBC) [Entitic mass] 30 pg Normal 27 - 33 [facility] Comment on above: Performed By: #### [id number] ## ##[facility],[address] [place] [address] MCHC 34 X10 3 Normal 32 - 36 [facility] Comment on above: Performed By: #### [id number] ## ##[facility],[address] [place] [address] MCV (RBC) [Entitic vol] 89 fL Normal 80 - 99 [facility] Comment on above: Performed By: #### [id number] ## ##[facility],[address] [place] [address] 03870 [place] # 0.60 x10EE3/UL Normal 0.20 - 1.00 [facility] Comment on above: Performed By: #### [id number] ## ##[facility],[address] [place] [address] MONOS % 13.8 % High 0.0 - 10.0 [facility] Comment on above: Performed By: #### [id number] ## ##[facility],[address] [place] [address] 66424 Morphology Giovanni (Bld) [Interp] REVIEWED Normal [facility] Comment on above: Performed By: #### [id number] ## ##[facility],[address] [place] [address] 28922 Neut # 1.90 x10EE3/UL Normal 1.50 - 7.10 [facility] Comment on above: Performed By: #### [id number] ## ##[facility],[address] [place] [address] 38226 Neutrophils/100 WBC (Bld) 43.6 % Low 46.0 - 76.0 [facility] Comment on above: Performed By: #### [id number] ## ##[facility],[address] [place] [address] 80301 PLATELET 73 x10EE3/UL Low 150 - 450 [facility] Comment on above: Performed By: #### [id number] ## ##[facility],[address] [place] [address] 94759 Platelet mean volume (Bld) 8.5 fL Normal 6.6 - 10.5 [facility] [[facility]] [facility] Comment on above: Result Comment: AUTOMATED DI FFERENTIAL Performed By: #### [id number] ## ##[facility],[address] [place] [address] 85980 RBC 4.50 x 10EE6/UL Normal 4.10 - 5.30 [facility] Comment on above: Performed By: #### [id number] ## ##[facility],[address] [place] [address] 79149 WBC 4.4 x 10EE3/UL Low 4.5 - 10.8 [facility] Comment on above: Performed By: #### [id number] ## ##[facility],[address] [place] [address] 74547 CMP with eGFR on 12-24-2022 AGE 52 years Normal [facility] Comment on above: Performed By: #### [id number] ## ## [facility],[address] [place] [address] 88993 Albumin [Mass/Vol] 2.8 g/dL Low 3.4 - 5.0 [facility] Comment on above: Performed By: #### [id number] ## ## [facility],[address] [place], [place] [id number] Albumin/Globulin [Mass ratio] 0.9 {ratio} Normal 0.9 - 1.6 [facility] Comment on above: Performed By: #### [id number] ## ## [facility],[address] [place] [address] 51970 ALK PHOS 119 U/L High 46 - 116 [facility] Comment on above: Performed By: #### [id number] ## ## [facility],[address] [place], [place] [id number] ALT [Catalytic activity/Vol] 25 U/L Normal 14 - 59 [facility] Comment on above: Performed By: #### [id number] ## ## [facility],[address] [place] [address] 87269 Anion gap [Moles/Vol] 12 mmol/L Normal 10 - 20 [facility] Comment on above: Performed By: #### [id number] ## ## [facility],[address] [place] [address] 96168 AST [Catalytic activity/Vol] 39 U/L Normal 13 - 39 [facility] Comment on above: Performed By: #### [id number] ## ## [facility],[address] [place] [address] 05144 B/C RATIO 16 ratio Normal 0 - 30 [facility] Comment on above: Performed By: #### [id number] ## ## [facility],[address] [place] [address] 89186 Bilirubin [Mass/Vol] 1.4 mg/dL High 0.2 - 1.0 [facility] Comment on above: Performed By: #### [id number] ## ## [facility],[address] [facility] [address] Calcium [Mass/Vol] 9.2 mg/dL Normal 8.5 - 10.1 [facility] Comment on above: Performed By: #### [id number] ## ## [facility],[address] [facility] [address]40 Chloride [Moles/Vol] 111 mmol/L High 98 - 107 [facility] Comment on above: Performed By: #### [id number] ## ## [facility],[address] [place], [place] [id number] CMP with eGFR Normal [facility] Comment on above: Result Comment: COMPREHENSIV E METABOLIC PANEL Performed By: #### [id number] ## ## [facility],[address] [place] [address] 82655 CO2 [Moles/Vol] 23.6 mmol/L Normal 21.0 - 32.0 [facility] Comment on above: Performed By: #### [id number] ## ## [facility],[address] [place] [address] 40802 Creatinine [Mass/Vol] 0.75 mg/dL Normal 0.55 - 1.02 [facility] Comment on above: Performed By: #### [id number] ## ## [facility],[address] [place] [address] 65659 GFR/1.73 sq M.predicted mL/min/{1.73_m2} Normal 60 - 999 [facility] among non-blacks MDRD Hospit al (S/P/Bld) [Vol rate/Area] Comment on above: Performed By: #### [id number] ## ## [facility],[address] [place] [address] 71000 Result Comment: ACCORDING TO THE NATIONAL KIDNEY [...] g/dL Normal 1.5 - 3.8 [facility] Comment on above: Performed By: #### [id number] ## ## [facility],[address] [place] [address] 84555 Glucose [Mass/Vol] 95 mg/dL Normal 74 - 106 [facility] Comment on above: Performed By: #### [id number] ## ## [facility],[address] [place] [address] 59339 Potassium [Moles/Vol] 3.8 mmol/L Normal 3.5 - 5.1 [facility] Comment on above: Performed By: #### [id number] ## ## [facility],[address] [place] [address] 67090 Protein [Mass/Vol] 6.0 g/dL Low 6.4 - 8.2 [facility] Comment on above: Performed By: #### [id number] ## ## [facility],[address] [place] [address] 96317 Sodium [Moles/Vol] 143 mmol/L Normal 136 - 145 [facility] Comment on above: Performed By: #### [id number] ## ## [facility],[address] [place] [address] 03268 Urea nitrogen [Mass/Vol] 12 mg/dL Normal 7 - 18 [facility] Comment on above: Performed By: #### [id number] ## ## [facility],[address] [place] [address] 48722 AMMONIA on 12-23-2022 Ammonia (P) [Moles/Vol] 90.0 umol/L High 11.0 - 32.0 [facility] Comment on above: Performed By: #### [id number] ## ## [facility],[address] [place] [address]57 CBC + DIFF on 12-23-2022 Baso # 0.10 x10EE3/UL Normal 0.00 - 0.10 [facility] Comment on above: Performed By: #### [id number] ## ## [facility],[address] [place] [address] 15707 Basophils/100 WBC (Bld) 0.9 % Normal 0.0 - 2.0 [facility] Comment on above: Performed By: #### [id number] ## ## [facility],[address] [place] [address] 82429 CBC + DIFF Normal [facility] Comment on above: Result Comment: CBC-COMPLETE BLOOD COUNT Performed By: #### [id number] ## ## [facility],[address] [place] [address] 90844 EO # 0.30 x10EE3/UL Normal 0.00 - 0.50 [facility] Comment on above: Performed By: #### [id number] ## ## [facility],[address] [place] [address] 87210 Eosinophils/100 WBC (Bld) 5.7 % Normal 0.0 - 7.0 [facility] Comment on above: Performed By: #### [id number] ## ## [facility],[address] [place] [address] 77211 Erythrocyte distribution width 17.5 % High 12.0 - 15. 6 [facility] (RBC) [Ratio] [facility] Comment on above: Performed By: #### [id number] ## ## [facility],[address] [place] [address] 47118 Hematocrit (Bld) [Volume 41.5 % Normal 34.0 - 46.0 [facility]] [facility] Comment on above: Performed By: #### [id number] ## ## [facility],[address] [place] [address] Hemoglobin (Bld) [Mass/Vol] 13.8 g/dL Normal 12.0 - 16.0 [facility] Comment on above: Performed By: #### [id number] ## ## [facility],[address] [place] [address] Lymph # 1.50 x10EE3/UL Normal 0.80 - 2.80 [facility] Comment on above: Performed By: #### [id number] ## ## [facility],[address] [place] [address] Lymphocytes/100 WBC (Bld) 24.6 % Normal 20.0 - 45.0 [facility] Comment on above: Performed By: #### [id number] ## ## [facility],[address] [place] [address] MANUAL DIFF REVIEWED Normal [facility] Comment on above: Performed By: #### [id number] ## ## [facility],[address] [place] [address] MCH (RBC) [Entitic mass] 30 pg Normal 27 - 33 [facility] Comment on above: Performed By: #### [id number] ## ## [facility],[address] [place] [address] MCHC 33 X10 3 Normal 32 - 36 [facility] Comment on above: Performed By: #### [id number] ## ## [facility],[address] [place], [place] [id number] MCV (RBC) [Entitic vol] 90 fL Normal 80 - 99 [facility] Comment on above: Performed By: #### [id number] ## ## [facility],[address] [place] [address] [place] # 1.00 x10EE3/UL Normal 0.20 - 1.00 [facility] Comment on above: Performed By: #### [id number] ## ## [facility],[address] [place] [address] 79468 MONOS % 16.3 % High 0.0 - 10.0 [facility] Comment on above: Performed By: #### [id number] ## ## [facility],[address] [place] [address] Morphology Giovanni (Bld) [Interp] REVIEWED Normal [facility] Comment on above: Result Comment: {CD] Performed By: #### [id number] ## ## [facility],[address] [place] [address] Neut # 3.20 x10EE3/UL Normal 1.50 - 7.10 [facility] Comment on above: Performed By: #### [id number] ## ## [facility],[address] [place] [address] Neutrophils/100 WBC (Bld) 52.5 % Normal 46.0 - 76.0 [facility] Comment on above: Performed By: #### [id number] ## ## [facility],[address] [place] [address] PLATELET 86 x10EE3/UL Low 150 - 450 [facility] Comment on above: Performed By: #### [id number] ## ## [facility],[address] [place] [address] Platelet mean volume (Bld) 8.6 fL Normal 6.6 - 10.5 [facility] [[facility]] [facility] Comment on above: Result Comment: AUTOMATED DI FFERENTIAL Performed By: #### [id number] ## ## [facility],[address] [place], [place] [id number] RBC 4.62 x 10EE6/UL Normal 4.10 - 5.30 [facility] Comment on above: Performed By: #### [id number] ## ## [facility],[address] [facility] [address] WBC 6.0 x 10EE3/UL Normal 4.5 - 10.8 [facility] Comment on above: Performed By: #### [id number] ## ## [facility],[address] [facility] [address] CMP with eGFR on 12-23-2022 AGE 52 years Normal [facility] Comment on above: Performed By: #### [id number] ## ## [facility],[address] [facility] [address] Albumin [Mass/Vol] 3.0 g/dL Low 3.4 - 5.0 [facility] Comment on above: Performed By: #### [id number] ## ## [facility] [address] Albumin/Globulin [Mass ratio] 0.9 {ratio} Normal 0.9 - 1.6 [facility] Comment on above: Performed By: #### [id number] ## ## [facility] [facility] [address] ALK PHOS 129 U/L High 46 - 116 [facility] Comment on above: Performed By: #### [id number] ## ## [facility],[address] [facility] [address] ALT [Catalytic activity/Vol] 28 U/L Normal 14 - 59 [facility] Comment on above: Performed By: #### [id number] ## ## [facility],[address] [facility] [address] Anion gap [Moles/Vol] 10 mmol/L Normal 10 - 20 [facility] Comment on above: Performed By: #### [id number] ## ## [facility],[address] [facility] [address] AST [Catalytic activity/Vol] 41 U/L High 13 - 39 [facility] Comment on above: Performed By: #### [id number] ## ## [facility],[address] [facility] [address] B/C RATIO 20 ratio Normal 0 - 30 [facility] Comment on above: Performed By: #### [id number] ## ## [facility],[address] [facility] [address] Bilirubin [Mass/Vol] 1.2 mg/dL High 0.2 - 1.0 [facility] Comment on above: Performed By: #### [id number] ## ## [facility],[address] [facility] [address] Calcium [Mass/Vol] 9.4 mg/dL Normal 8.5 - 10.1 [facility] Comment on above: Performed By: #### [id number] ## ## [facility] [facility] [address] Chloride [Moles/Vol] 111 mmol/L High 98 - 107 [facility] Comment on above: Performed By: #### [id number] ## ## [facility],[address] [facility] [address] CMP with eGFR Normal [facility] Comment on above: Result Comment: COMPREHENSIV E METABOLIC PANEL Performed By: #### [id number] ## ## [facility],[address] [facility] [address] CO2 [Moles/Vol] 26.5 mmol/L Normal 21.0 - 32.0 [facility] Comment on above: Performed By: #### [id number] ## ## [facility],[address] [facility] [address] Creatinine [Mass/Vol] 0.98 mg/dL Normal 0.55 - 1.02 [facility] Comment on above: Performed By: #### [id number] ## ## [facility] [address] eGFR 59 ML/MINUTE Low 60 - 999 [facility] Comment on above: Performed By: #### [id number] ## ## [facility],[address] [place] [address] 07235 GFR/1.73 sq M.predicted mL/min/{1.73_m2} Normal 60 - 999 [facility] among non-blacks MDRD Hospit al (S/P/Bld) [Vol [...] OF AGE AND OLDER. Performed By: #### [id number] ## ## [facility],[address] [place] [address] 07174 Globulin (S) [Mass/Vol] 3.3 g/dL Normal 1.5 - 3.8 [facility] Comment on above: Performed By: #### [id number] ## ## [facility],[address] [place] [address] 57524 Glucose [Mass/Vol] 128 mg/dL High 74 - 106 [facility] Comment on above: Performed By: #### [id number] ## ## [facility],[address] [place] [address] 41801 Potassium [Moles/Vol] 4.0 mmol/L Normal 3.5 - 5.1 [facility] Comment on above: Performed By: #### [id number] ## ## [facility],[address] [place] [address] 32485 Protein [Mass/Vol] 6.3 g/dL Low 6.4 - 8.2 [facility] Comment on above: Performed By: #### [id number] ## ## [facility],[address] [place] [address] 69865 Sodium [Moles/Vol] 143 mmol/L Normal 136 - 145 [facility] Comment on above: Performed By: #### [id number] ## ## [facility],[address] [place], [place] [id number] Urea nitrogen [Mass/Vol] 20 mg/dL High 7 - 18 [facility] Comment on above: Performed By: #### [id number] ## ## [facility],[address] [place], [place] [id number] CORONAVIRUS PCR - [place] on 3 SARS-CoV-2 (COVID-19) RNA Negative Normal NORMAL: NEGATIV E [facility] SAADIA+probe Ql (Unsp spec) [facility] Comment on above: Performed By: #### [id number] ## ## [facility],[address] [place] [address] SEND TO IC? YES Normal [facility] Comment on above: Result Comment: RESULTS FAXE D TO INFECTION CONTROL. SARS-CoV-2 THIS TEST IS BEING USED UNDE R THE FDA EUA PROCEDURE. THIS ASSAY HAS BEEN VALIDATED IN THE [facility] FOR USE WITH NASOPHARYNGEAL SPECIMENS IN [facility]. INTERPRETIVE DATA LABORATORY TEST RESULTS SHOU LD [...] WITH PUBLIC HEALTH AUTHORITIES. Performed By: #### [id number] ## ## [facility],[address] [place], [place] [address] DRUG SCREEN URINE MEDIC on 12-23-2022 AMPHETAMINES Negative [facility] Comment on above: Performed By: #### [id number] ## ## [facility],[address] [place], [place] [address] B-DIAZEPINES Negative [facility] Comment on above: Performed By: #### [id number] ## ## [facility],[address] [place], [place] [address] BARBITURATES Negative [facility] Comment on above: Performed By: #### [id number] ## ## [facility],[address] [place], [place] [address] COCAINE Negative [facility] Comment on above: Performed By: #### [id number] ## ## [facility],[address] [place], [place] [id number] DRUG SCREEN URINE MEDIC Normal [facility] Comment on above: Result Comment: DRUG SCREEN - URINE Performed By: #### [id number] ## ## [facility],[address] [place] [address] 788[address] METHADONE Negative [facility] Comment on above: Performed By: #### [id number] ## ## [facility],[address] [place] [address] 47157 OPIATES Negative [facility] Comment on above: Performed By: #### [id number] ## ## [facility],[address] [place] [address] 40379 PCP Negative Normal [facility] Comment on above: Performed By: #### [id number] ## ## [facility],[address] [place] [address] 02487 THC Negative Normal [facility] Comment on above: Result Comment: PATIENTS REC EIVING PROTON PUMP INHIBITORS MAY DEMONSTRATE FALSE POSITIVE THC/CANNABINOID RESULTS. AN ALTERNATIVE CONFIRMATORY METHOD SHOULD BE CONSIDERED TO VERIFY POSITIVE RESULTS. Performed By: #### [id number] ## ## [facility],[address] [place] [address] URINALYSIS on 12-23-2022 Amorphous 2+ Normal [facility] Comment on above: Performed By: #### [id number] ## ##[facility],[address] [place] [address] 91936 Bacteria 3+ Normal [facility] Comment on above: Performed By: #### [id number] ## ##[facility],[address] [place] [address] 52953 Bilirubin Ql (U) Negative Normal NORMAL: NEGATIVE [facility] Comment on above: Performed By: #### [id number] ## ##[facility],[address] [place] [address] 73589 Casts NONE Normal [facility] Comment on above: Performed By: #### [id number] ## ##[facility],[address] [place] [address] 03954 Clarity (U) very cloudy Normal NORMAL: CLEAR [facility] Comment on above: Performed By: #### [id number] ## ##[facility],[address] [place] [address] 67409 Color (U) ART Normal NORMAL: YELLOW [facility] Comment on above: Performed By: #### [id number] ## ##[facility],[address] [place] [address] 76595 Crystals LM Nom (Urine sed) NONE Normal [facility] Comment on above: Performed By: #### [id number] ## ##[facility],[address] [place] [address] 83095 Epi Cells MANY Normal [facility] Comment on above: Performed By: #### [id number] ## ##[facility],[address] [place] [address] 51407 Glucose Ql (U) NORM Normal NORMAL: NORMAL [facility] Comment on above: Performed By: #### [id number] ## ##[facility],[address] [place] [address] 95934 Hemoglobin Ql (U) 50 Abnormal NORMAL: NEGATIVE [facility] Comment on above: Performed By: #### [id number] ## ##[facility],[address] [place] [address] 75359 Ketone 5 Abnormal NORMAL: NEGATIVE [facility] Comment on above: Performed By: #### [id number] ## ##[facility],[address] [place] [address] 80989 Leukocytes 25 Abnormal NORMAL: NEGATIVE [facility] Comment on above: Performed By: #### [id number] ## ##[facility],[address] [place] [address] 69257 Mucous 2+ Normal [facility] Comment on above: Performed By: #### [id number] ## ##[facility],[address] [place] [address] 47321 Nitrite Ql (U) Negative Normal NORMAL: NEGATIVE [facility] Comment on above: Performed By: #### [id number] ## ##[facility],[address] [place] [address] 28448 pH (U) 6 [pH] Normal NORMAL: 5.0-8.0 [facility] Comment on above: Performed By: #### [id number] ## ##[facility],[address] [place] [address] 77025 Protein Ql (U) 15 Abnormal NORMAL: NEGATIVE [facility] Comment on above: Performed By: #### [id number] ## ##[facility],[address] [place] [address] Rbc 10-15 Normal 0-3/hpf [facility] Comment on above: Performed By: #### [id number] ## ##[facility],[address] [place] [address] Sp Trilla 1.025 Normal NORMAL: 1.010-1.030 [facility] Comment on above: Performed By: #### [id number] ## ##[facility],[address] [place] [address] Specimen Type UNSPECIFIED Normal [facility] Comment on above: Performed By: #### [id number] ## ##[facility],[address] [place] [address] Urinalysis dipstick W Reflex SEE BELOW Normal [facility] Microscopic panel (U) Comment on above: Result Comment: MICROSCOPIC Performed By: #### [id number] ## ##[facility],[address] [place] [address] Urobilinog 8 Abnormal NORMAL: NORMAL [facility] Comment on above: Performed By: #### [id number] ## ##[facility],[address] [place] [address] Wbc 6-10 Normal 0-5/hpf [facility] Comment on above: Performed By: #### [id number] ## ##[facility],[address] [place] [address] Yeast NONE Normal [facility] Comment on above: Performed By: #### [id number] ## ##[facility],[address] [place] [address] ACETAMINOPHEN on 12-22-2022 ACETAMINOPHEN <0.0 Low 10.0 - 30.0 [facility] Comment on above: Performed By: #### [id number] ## ## [facility],[address] [place] [address] ALCOHOL-BLOOD MEDICAL on 12-22-2022 Ethanol [Mass/Vol] mg/dL Normal 0 - 50 [facility] Comment on above: Performed By: #### [id number] ## ## [facility],[address] [place] [address] AMMONIA on 12-22-2022 Ammonia (P) [Moles/Vol] 94.0 umol/L High 11.0 - 32.0 [facility] Comment on above: Performed By: #### [id number] ## ## [facility],[address] [facility] [address] ARTERIAL BLOOD GAS ANALYSIS on 12-22-19 23 ALLENS TEST + Normal [facility] Comment on above: Result Comment: { TIME CHACON D 1810 Performed By: #### [id number] ## ## [facility],[address] [place] [address] ARTERIAL BLOOD GAS ANALYSIS Normal [facility] Comment on above: Result Comment: ARTERIAL BLO OD GAS Performed By: #### [id number] ## ## [facility],[address] [place] [address] 45303 BE 0 Normal -2 - 3 [facility] Comment on above: Performed By: #### [id number] ## ## [facility],[address] [facility] [address] HCO3 (Bld) [Moles/Vol] 25 mmol/L High 20 - 24 [facility] Comment on above: Performed By: #### [id number] ## ## [facility],[address] [facility] [address] Heart rate 106 /min Normal [facility] Comment on above: Performed By: #### [id number] ## ## [facility],[address] [place] [address] 69012 MODALITY . Normal [facility] Comment on above: Performed By: #### [id number] ## ## [facility] [facility] [address] PCO2 42 mm Hg Normal 35 - 45 [facility] Comment on above: Performed By: #### [id number] ## ## [facility],[address] [facility] [address] pH (Bld) 7.39 [pH] Normal 7.35 - 7.45 [facility] Comment on above: Performed By: #### [id number] ## ## [facility],[address] [facility] [address] PO2 66 mm Hg Low 80 - 105 [facility] Comment on above: Performed By: #### [id number] ## ## [facility] [facility] [address] SAMPLE SITE LT RAD Normal [facility] Comment on above: Performed By: #### [id number] ## ## [facility],[address] [facility] [address] SaO2 92 Low 95 - 98 [facility] Comment on above: Result Comment: TIME RESULT CALLED _[id number] 12/22/[id number].[id number]. { FIO2/LPM RA Performed By: #### [id number] ## ## [facility],[address] [facility] [address] TOTAL RR 20 Normal [facility] Comment on above: Performed By: #### [id number] ## ## [facility],[address] [facility] [address] VENT N/A Normal [facility] Comment on above: Performed By: #### [id number] ## ## [facility],[address] [facility] [address] C-REACTIVE PROTEIN on 12-22-2022 CRP [Mass/Vol] mg/L Normal 0.00 - 0.90 [facility] Comment on above: Performed By: #### [id number] ## ## [facility],[address] [place] [address] CBC + DIFF on 12-22-2022 Baso # 0.00 x10EE3/UL Normal 0.00 - 0.10 [facility] Comment on above: Performed By: #### [id number] ## ##[facility],[address] [place] [address] Basophils/100 WBC (Bld) 1.0 % Normal 0.0 - 2.0 [facility] Comment on above: Performed By: #### [id number] ## ##[place] [address] CBC + DIFF Normal [facility] Comment on above: Result Comment: CBC-COMPLETE BLOOD COUNT Performed By: #### [id number] ## ##[place] [address] EO # 0.30 x10EE3/UL Normal 0.00 - 0.50 [facility] Comment on above: Performed By: #### [id number] ## ##[place] [address] Eosinophils/100 WBC (Bld) 5.7 % Normal 0.0 - 7.0 [facility] Comment on above: Performed By: #### [id number] ## ##[place] [address] Erythrocyte distribution width 17.3 % High 12.0 - 15. 6 [facility] (RBC) [Ratio] [facility] Comment on above: Performed By: #### [id number] ## ##[place] [address] Hematocrit (Bld) [Volume 46.2 % High 34.0 - 46.0 [facility]] [facility] Comment on above: Performed By: #### [id number] ## ##[place] [address] Hemoglobin (Bld) [Mass/Vol] 15.2 g/dL Normal 12.0 - 16.0 [facility] Comment on above: Performed By: #### [id number] ## ##[facility],[address] [place] [address] Lymph # 1.20 x10EE3/UL Normal 0.80 - 2.80 [facility] Comment on above: Performed By: #### [id number] ## ##[facility],[address] [place] [address] Lymphocytes/100 WBC (Bld) 24.3 % Normal 20.0 - 45.0 [facility] Comment on above: Performed By: #### [id number] ## ##[facility],[address] [place] [address] MANUAL DIFF REVIEWED Normal [facility] Comment on above: Performed By: #### [id number] ## ##[facility],[address] [place] [address] MCH (RBC) [Entitic mass] 30 pg Normal 27 - 33 [facility] Comment on above: Performed By: #### [id number] ## ##[facility],[address] [place] [address] MCHC 33 X10 3 Normal 32 - 36 [facility] Comment on above: Performed By: #### [id number] ## ##[facility],[address] [place] [address] MCV (RBC) [Entitic vol] 91 fL Normal 80 - 99 [facility] Comment on above: Performed By: #### [id number] ## ##[place] [address] [place] # 0.60 x10EE3/UL Normal 0.20 - 1.00 [facility] Comment on above: Performed By: #### [id number] ## ##[place] [address] MONOS % 11.9 % High 0.0 - 10.0 [facility] Comment on above: Performed By: #### [id number] ## ##[facility],[address] [place] [address]84[address] Morphology Giovanni (Bld) [Interp] SEE BELOW Normal [facility] [facility] Comment on above: Performed By: #### [id number] ## ##[facility],[address] [place] [address] 90829 Neut # 2.90 x10EE3/UL Normal 1.50 - 7.10 [facility] Comment on above: Performed By: #### [id number] ## ##[facility],[address] [place] [address] 91560 Neutrophils/100 WBC (Bld) 57.1 % Normal 46.0 - 76.0 [facility] Comment on above: Performed By: #### [id number] ## ##[facility],[address] [place] [address] 97396 PLATELET 99 x10EE3/UL Low 150 - 450 [facility] Comment on above: Performed By: #### [id number] ## ##[facility],[address] [place] [address] 35672 Platelet mean volume (Bld) 9.0 fL Normal 6.6 - 10.5 [facility] [[facility]] [facility] Comment on above: Result Comment: AUTOMATED DI FFERENTIAL Performed By: #### [id number] ## ##[facility],[address] [place] [address] 64968 PLT EST DECREASED Normal [facility] Comment on above: Performed By: #### [id number] ## ##[facility],[address] [place] [address] 01926 RBC 5.09 x 10EE6/UL Normal 4.10 - 5.30 [facility] Comment on above: Performed By: #### [id number] ## ##[facility],[address] [place] [address] 65635 WBC 5.1 x 10EE3/UL Normal 4.5 - 10.8 [facility] Comment on above: Performed By: #### [id number] ## ##[facility],[address] [place] [address] 76096 Other RARE GIANT PLATELET Normal [facility] Comment on above: Result Comment: {CD] Performed By: #### [id number] ## ##[facility],[address] [place] [address] 85782 CMP with eGFR on 12-22-2022 AGE 52 years Normal [facility] Comment on above: Performed By: #### [id number] ## ## [facility],[address] [place] [address] 93845 Albumin [Mass/Vol] 3.5 g/dL Normal 3.4 - 5.0 [facility] Comment on above: Performed By: #### [id number] ## ## [facility],[address] [place], [place] [id number] Albumin/Globulin [Mass ratio] 0.9 {ratio} Normal 0.9 - 1.6 [facility] Comment on above: Performed By: #### [id number] ## ## [facility],[address] [place] [address] 91822 ALK PHOS 167 U/L High 46 - 116 [facility] Comment on above: Performed By: #### [id number] ## ## [facility],[address] [place] [address] 92050 ALT [Catalytic activity/Vol] 27 U/L Normal 14 - 59 [facility] Comment on above: Performed By: #### [id number] ## ## [facility],[address] [place] [address] 83584 Anion gap [Moles/Vol] 12 mmol/L Normal 10 - 20 [facility] Comment on above: Performed By: #### [id number] ## ## [facility],[address] [facility] 38868 AST [Catalytic activity/Vol] 43 U/L High 13 - 39 [facility] Comment on above: Performed By: #### [id number] ## ## [facility],[address] [facility] 95948 B/C RATIO 17 ratio Normal 0 - 30 [facility] Comment on above: Performed By: #### [id number] ## ## [facility] [facility] 69721 Bilirubin [Mass/Vol] 1.2 mg/dL High 0.2 - 1.0 [facility] Comment on above: Performed By: #### [id number] ## ## [facility],[address] [facility] 97933 Calcium [Mass/Vol] 9.7 mg/dL Normal 8.5 - 10.1 [facility] Comment on above: Performed By: #### [id number] ## ## [facility] [facility] 26027 Chloride [Moles/Vol] 110 mmol/L High 98 - 107 [facility] Comment on above: Performed By: #### [id number] ## ## [facility],[address] [facility] 50041 CMP with eGFR Normal [facility] Comment on above: Result Comment: COMPREHENSIV E METABOLIC PANEL Performed By: #### [id number] ## ## [facility],[address] [facility] 25043 CO2 [Moles/Vol] 27.9 mmol/L Normal 21.0 - 32.0 [facility] Comment on above: Performed By: #### [id number] ## ## [facility] [address] Creatinine [Mass/Vol] 0.84 mg/dL Normal 0.55 - 1.02 [facility] Comment on above: Performed By: #### [id number] ## ## [facility],1 [facility] 13201 GFR/1.73 sq M.predicted mL/min/{1.73_m2} Normal 60 - 999 [facility] among non-blacks MDRD Hospit al (S/P/Bld) [Vol rate/Area] Comment on above: Performed By: #### [id number] ## ## [facility],[address] [place] [address] 06934 Result Comment: ACCORDING TO THE NATIONAL KIDNEY [...] g/dL High 1.5 - 3.8 [facility] Comment on above: Performed By: #### [id number] ## ## [facility],[address] [place] [address] 65660 Glucose [Mass/Vol] 104 mg/dL Normal 74 - 106 [facility] Comment on above: Performed By: #### [id number] ## ## [facility],[address] [place] [address] 81486 Potassium [Moles/Vol] 4.5 mmol/L Normal 3.5 - 5.1 [facility] Comment on above: Performed By: #### [id number] ## ## [facility],[address] [place] [address] 90553 Protein [Mass/Vol] 7.4 g/dL Normal 6.4 - 8.2 [facility] Comment on above: Performed By: #### [id number] ## ## [facility],[address] [place] [address] 18201 Sodium [Moles/Vol] 145 mmol/L Normal 136 - 145 [facility] Comment on above: Performed By: #### [id number] ## ## [facility],[address] [place] [address] 62958 Urea nitrogen [Mass/Vol] 14 mg/dL Normal 7 - 18 [facility] Comment on above: Performed By: #### [id number] ## ## [facility],[address] [place] [address] 58814 CPK on 12-22-2022 CPK 184 U/L Normal 26 - 192 [facility] Comment on above: Performed By: #### [id number] ## ## [facility],[address] [place] [address] BRAIN W/O CONTRAST on 12-22-2022 CT BRAIN W/O CONTRAST [facility] Normal [place] [address] Patient: EVER MCKEON Phone#: : 1970 Age: 52 Gender: F Pt. Type: ER Account: [id number] Location: [facility] Ordering: PAULO GARCIA Exam Date: 12/22/2022/19:36 Family Phys: Charge Code: [id number] Physician: [place] Order #: [id number] Dose#: [id number] PROCEDURE: CT BRAIN WITHOUT CONTRAST COMPARISON: [facility], CT, BRAIN W/O CON, 11/17, 16:21. INDICATIONS: Altered mental status. TECHNIQUE: CT images were obtained without contrast hi saman. All CT scans at this facilit [...] 12-22-2022 Microscopic CULTURE BLOOD [DIANA] Normal [facility] examination of blood, _BLOOD CULTURE_ [facility] FOR SCANNED REPO RT 12/29/[email or web address] Comment on above: Performed By: #### [id number] ## ## [facility],[address] [place] [address] 93184 Microscopic CULTURE BLOOD [DIANA] Normal [facility] examination of blood, _BLOOD CULTURE_ [facility] culture [facility]ACH[facility] FOR SCANNED REPO RT 12/29/[email or web address] Comment on above: Performed By: #### [id number] ## ## [facility],[address] [place] [address] 30102 LACTATE on 12-22-2022 Lactate [Moles/Vol] 1.3 mmol/L Normal 0.4 - 2.0 [facility] Comment on above: Performed By: #### [id number] ## ## [address] [address] MAGNESIUM on 12-22-2022 Magnesium [Mass/Vol] 2.4 mg/dL Normal 1.8 - 2.4 [facility] Comment on above: Performed By: #### [id number] ## ## [facility],[address] [place] [address] 85201 NT-proBNP on 12-22-2022 Natriuretic peptide B (Bld) 44 pg/mL Normal 0 - 125 [facility] [[facility]] [facility] Comment on above: Performed By: #### [id number] ## ## [facility],[address] [place] [address] PROTHROMBIN TIME AND INR on 12-22-2022 INR Coag (PPP) [Relative time] 1.1 {INR} Normal 0.8 - 1.2 [facility] Comment on above: Result Comment: [...] MECHANICAL HEART V JOSEPH Performed By: #### [id number] ## ##[facility],[address] [place] [address] PROTHROMBIN TIME AND INR Normal [facility] Comment on above: Result Comment: PROTHROMBIN TIME AND INR Performed By: #### [id number] ## ##[place] [address] PT-COUMADIN 13.3 sec Normal 9.3 - 14.1 [facility] Comment on above: Performed By: #### [id number] ## ##[place] [address] SEDRATE on 12-22-2022 SEDRATE 3 mm/hr Normal 0 - 30 [facility] Comment on above: Performed By: #### [id number] ## ##[place] [id number] TROPONIN I, HIGH SENSITIVITY on 023 HS TROPONIN 7.4 pg/mL Normal 0.0 - 51.4 [facility] Comment on above: Performed By: #### [id number] ## ## [facility],[address] [place] [address] 17638 HS TROPONIN 6.5 pg/mL Normal 0.0 - 51.4 [facility] Comment on above: Performed By: #### [id number] ## ## [facility],[address] [place] [address] 64079 TSH on 12-22-2022 TSH Qn 2.93 m[IU]/L Normal 0.35 - 3.74 [facility] Comment on above: Performed By: #### [id number] ## ## [facility],[address] [place] [address] 88255 EMERGENCY REPORT on 11-21-2022 EMERGENCY REPORT [facility] Normal [facility] EMERGENCY ROOM REPORT NAME ACCOUNT SEX AGE ADMIT DISCHARGE PT MED. RECORD# NUMBER DATE DATE TYPE LINDA, [id number] F 52 11/17/22 1 [facility] [id number] ROOM: [facility] DATE OF : 1970 DICTATING PHYSICIAN: Eyal [...] Eyal Franco DO 11/17/22 19:25 JOB #: [id number] Transcribed By: am 11/18/22 12:09 Page 1 of 2 EVER MCKEON Emergency Room Report LINDA EVER : 1970 Electronically signed by: Dr. Eyal Franco DO 11/21/22 07:12 Page 2 of 2 EVER MCKEON Emergency Room Report EMERGENCY REPORT [facility] Normal [facility] EMERGENCY ROOM REPORT NAME ACCOUNT SEX AGE ADMIT DISCHARGE PT MED. RECORD# NUMBER DATE DATE TYPE LINDA [id number] F 52 11/17/22 1 EVER [id number] ROOM: [facility] DATE OF : 1970 DICTATING PHYSICIAN: Eyal [...] Room Report EVER MCKEON : 1970 minute. [place] is normal. NE, QRS, and QT intervals are grossly normal. [place] is normal. There is no acute ST-T [...] By: Eyal Franco, 11/17/22 17:49 JOB #: [id number] Transcribed By: am 11/18/22 11:46 Electronically signed by: Dr. Eyal Franco, 11/21/22 07:12 Page 2 of 2 EVER MCKENO Emergency Room Report CBC + DIFF on 11-18-2022 ANISO 2+ Normal [facility] Comment on above: Performed By: #### [id number] ## ## [place] [address] Baso # 0.00 x10EE3/UL Normal 0.00 - 0.10 [facility] Comment on above: Performed By: #### [id number] ## ## [place] [address] Basophils/100 WBC (Bld) 1.0 % Normal 0.0 - 2.0 [facility] Comment on above: Performed By: #### [id number] ## ## [facility],[address] [place] [address] CBC + DIFF Normal [facility] Comment on above: Result Comment: CBC-COMPLETE BLOOD COUNT Performed By: #### [id number] ## ## [place] [address] EO # 0.30 x10EE3/UL Normal 0.00 - 0.50 [facility] Comment on above: Performed By: #### [id number] ## ## [place] [address] Eosinophils/100 WBC (Bld) 6.8 % Normal 0.0 - 7.0 [facility] Comment on above: Performed By: #### [id number] ## ## [facility],[address] [place], [place] [id number] Erythrocyte distribution width 25.2 % High 12.0 - 15. 6 [facility] (RBC) [Ratio] [facility] Comment on above: Performed By: #### [id number] ## ## [facility],[address] [place] [address] Hematocrit (Bld) [Volume 36.0 % Normal 34.0 - 46.0 [facility] Comment on above: Performed By: #### [id number] ## ## [facility],[address] [place], [place] [id number] Hemoglobin (Bld) [Mass/Vol] 11.8 g/dL Low 12.0 - 16.0 [facility] Comment on above: Performed By: #### [id number] ## ## [facility],[address] [place] [address] HYPOCHROM 1+ Normal [facility] Comment on above: Performed By: #### [id number] ## ## [facility],[address] [place], [place] [id number] Lymph # 1.20 x10EE3/UL Normal 0.80 - 2.80 [facility] Comment on above: Performed By: #### [id number] ## ## [facility],[address] [place] [address] 52067 Lymphocytes/100 WBC (Bld) 26.2 % Normal 20.0 - 45.0 [facility] Comment on above: Performed By: #### [id number] ## ## [facility],[address] [place] [address] MANUAL DIFF N/A Normal [facility] Comment on above: Performed By: #### [id number] ## ## [facility] [facility] [address] MCH (RBC) [Entitic mass] 28 pg Normal 27 - 33 [facility] Comment on above: Performed By: #### [id number] ## ## [facility] [facility] [address] MCHC 33 X10 3 Normal 32 - 36 [facility] Comment on above: Performed By: #### [id number] ## ## [facility],[address] [place] [address] 50971 MCV (RBC) [Entitic vol] 85 fL Normal 80 - 99 [facility] Comment on above: Performed By: #### [id number] ## ## [facility],[address] [place] [address] MICROCYTES 2+ Normal [facility] Comment on above: Performed By: #### [id number] ## ## [facility],[address] [place] [address] [place] # 0.60 x10EE3/UL Normal 0.20 - 1.00 [facility] Comment on above: Performed By: #### [id number] ## ## [facility],[address] [place] [address] 15546 MONOS % 13.1 % High 0.0 - 10.0 [facility] Comment on above: Performed By: #### [id number] ## ## [facility],[address] [place] [address] 79913 Morphology Giovanni (Bld) [Interp] SEE BELOW Normal [facility] Comment on above: Performed By: #### [id number] ## ## [facility],[address] [facility] [address]404 Neut # 2.40 x10EE3/UL Normal 1.50 - 7.10 [facility] Comment on above: Performed By: #### [id number] ## ## [facility],[address] [place] [address] 27730 Neutrophils/100 WBC (Bld) 52.9 % Normal 46.0 - 76.0 [facility] Comment on above: Performed By: #### [id number] ## ## [facility],[address] [place] [address] 28227 PLATELET 87 x10EE3/UL Low 150 - 450 [facility] Comment on above: Performed By: #### [id number] ## ## [facility],[address] [place] [address] 90696 Platelet mean volume (Bld) 8.2 fL Normal 6.6 - 10.5 [facility] [[facility]] [facility] Comment on above: Result Comment: AUTOMATED DI FFERENTIAL Performed By: #### [id number] ## ## [facility],[address] [place], [place] [id number] POIKILO 1+ Normal [facility] Comment on above: Result Comment: {CD] Performed By: #### [id number] ## ## [facility],[address] [place] [address] 17776 RBC 4.24 x 10EE6/UL Normal 4.10 - 5.30 [facility] Comment on above: Performed By: #### [id number] ## ## [facility],[address] [place] [address] 89837 WBC 4.6 x 10EE3/UL Normal 4.5 - 10.8 [facility] Comment on above: Performed By: #### [id number] ## ## [facility],[address] [place] [address] 12156 CMP with eGFR on 11-18-2022 AGE 52 years Normal [facility] Comment on above: Performed By: #### [id number] ## ##[facility],[address] [place] [address] 02490 Albumin [Mass/Vol] 2.7 g/dL Low 3.4 - 5.0 [facility] Comment on above: Performed By: #### [id number] ## ##[facility],[address] [place] [address] 16593 Albumin/Globulin [Mass ratio] 0.8 {ratio} Low 0.9 - 1.6 [facility] Comment on above: Performed By: #### [id number] ## ##[facility],[address] [place] [address] 09886 ALK PHOS 125 U/L High 46 - 116 [facility] Comment on above: Performed By: #### [id number] ## ##[facility],[address] [place] [address] 10383 ALT [Catalytic activity/Vol] 29 U/L Normal 14 - 59 [facility] Comment on above: Performed By: #### [id number] ## ##[facility],[address] [place] [address] 89333 Anion gap [Moles/Vol] 13 mmol/L Normal 10 - 20 [facility] Comment on above: Performed By: #### [id number] ## ##[facility],[address] [place] [address] 68766 AST [Catalytic activity/Vol] 47 U/L High 13 - 39 [facility] Comment on above: Performed By: #### [id number] ## ##[facility],[address] [place] [address] 74302 B/C RATIO 17 ratio Normal 0 - 30 [facility] Comment on above: Performed By: #### [id number] ## ##[facility],[address] [place] [address] 24043 Bilirubin [Mass/Vol] 0.8 mg/dL Normal 0.2 - 1.0 [facility] Comment on above: Performed By: #### [id number] ## ##[facility],[address] [place] [address] 21047 Calcium [Mass/Vol] 9.2 mg/dL Normal 8.5 - 10.1 [facility] Comment on above: Performed By: #### [id number] ## ##[facility],[address] [place] [address] 10214 Chloride [Moles/Vol] 113 mmol/L High 98 - 107 [facility] Comment on above: Performed By: #### [id number] ## ##[facility],[address] [place] [address] 97648 CMP with eGFR Normal [facility] Comment on above: Result Comment: COMPREHENSIV E METABOLIC PANEL Performed By: #### [id number] ## ##[facility],[address] [place] [address] 14565 CO2 [Moles/Vol] 25.5 mmol/L Normal 21.0 - 32.0 [facility] Comment on above: Performed By: #### [id number] ## ##[facility],[address] [place] [address] 45604 Creatinine [Mass/Vol] 0.82 mg/dL Normal 0.55 - 1.02 [facility] Comment on above: Performed By: #### [id number] ## ##[facility],[address] [place] [address] 36360 GFR/1.73 sq M.predicted mL/min/{1.73_m2} Normal 60 - 999 [facility] among non-blacks MDRD Hospit al (S/P/Bld) [Vol rate/Area] Comment on above: Performed By: #### [id number] ## ##[facility],[address] [place], [place] [id number] Result Comment: ACCORDING TO THE NATIONAL KIDNEY [...] g/dL Normal 1.5 - 3.8 [facility] Comment on above: Performed By: #### [id number] ## ##[facility],[address] [place] [address] 44079 Glucose [Mass/Vol] 93 mg/dL Normal 74 - 106 [facility] Comment on above: Performed By: #### [id number] ## ##[facility],[address] [place] [address] 30267 Potassium [Moles/Vol] 4.1 mmol/L Normal 3.5 - 5.1 [facility] Comment on above: Performed By: #### [id number] ## ##[facility],[address] [place] [address] 97347 Protein [Mass/Vol] 6.2 g/dL Low 6.4 - 8.2 [facility] Comment on above: Performed By: #### [id number] ## ##[facility],[address] [place] [address] 52306 Sodium [Moles/Vol] 147 mmol/L High 136 - 145 [facility] Comment on above: Performed By: #### [id number] ## ##[facility],[address] [place] [address] 52085 Urea nitrogen [Mass/Vol] 14 mg/dL Normal 7 - 18 [facility] Comment on above: Performed By: #### [id number] ## ##[facility],[address] [place] [address] 30824 TROPONIN I, HIGH SENSITIVITY on 023 HS TROPONIN 7.1 pg/mL Normal 0.0 - 51.4 [facility] Comment on above: Performed By: #### [id number] ## ## [facility],[address] [place] [address] 83472 HS TROPONIN 7.3 pg/mL Normal 0.0 - 51.4 [facility] Comment on above: Performed By: #### [id number] ## ## [facility],[address] [place] [address] ALCOHOL-BLOOD MEDICAL on 11-17-2022 Ethanol [Mass/Vol] 5 mg/dL Normal 0 - 50 [facility] Comment on above: Performed By: #### [id number] ## ##[place] [address] AMMONIA on 11-17-2022 Ammonia (P) [Moles/Vol] 99.0 umol/L High 11.0 - 32.0 [facility] Comment on above: Performed By: #### [id number] ## ## [facility],[address] [place] [address] APTT on 11-17-2022 aPTT Coag (Bld) [Time] 29.8 s Normal 25.4 - 38.4 [facility] Comment on above: Performed By: #### [id number] ## ##[facility],[address] [place] [address] Bacteria Ur Cult on 11-17-2022 Bacteria identified Cx Nom ORGANISM ID: 1 Normal [facility] (U) >=100,000 CFU/ml Normal urogenital [facility] [place] Comment on above: Performed By: #### [id number] ### # [facility] CLIA [id number] [address] [place] [address] [place] CBC + DIFF on 11-17-2022 ANISO 3+ Normal [facility] Comment on above: Result Comment: {CD] Performed By: #### [id number] ## ## [facility],[address] [place] [address] Baso # 0.00 x10EE3/UL Normal 0.00 - 0.10 [facility] Comment on above: Performed By: #### [id number] ## ## [facility],[address],[place] [address] Basophils/100 WBC (Bld) 0.9 % Normal 0.0 - 2.0 [facility] Comment on above: Performed By: #### [id number] ## ## [facility],[address] [place], [place] [id number] CBC + DIFF Normal [facility] Comment on above: Result Comment: CBC-COMPLETE BLOOD COUNT Performed By: #### [id number] ## ## [facility],[address] [place] [address] EO # 0.30 x10EE3/UL Normal 0.00 - 0.50 [facility] Comment on above: Performed By: #### [id number] ## ## [facility],[address] [place] [address] Eosinophils/100 WBC (Bld) 6.8 % Normal 0.0 - 7.0 [facility] Comment on above: Performed By: #### [id number] ## ## [facility],[address] [place] [address] Erythrocyte distribution width 25.7 % High 12.0 - 15. 6 [facility] (RBC) [Ratio] [facility] Comment on above: Performed By: #### [id number] ## ## [facility],[address] [place] [address] Hematocrit (Bld) [Volume 43.3 % Normal 34.0 - 46.0 [facility]] [facility] Comment on above: Performed By: #### [id number] ## ## [facility],[address] [place], [place] [id number] Hemoglobin (Bld) [Mass/Vol] 13.8 g/dL Normal 12.0 - 16.0 [facility] Comment on above: Performed By: #### [id number] ## ## [facility],[address] [place] [address] Lymph # 0.70 x10EE3/UL Low 0.80 - 2.80 [facility] Comment on above: Performed By: #### [id number] ## ## [facility],[address] [place] [address] 57819 Lymphocytes/100 WBC (Bld) 16.6 % Low 20.0 - 45.0 [facility] Comment on above: Performed By: #### [id number] ## ## [facility],[address] [place] [address] 26932 MANUAL DIFF REVIEWED Normal [facility] Comment on above: Performed By: #### [id number] ## ## [facility],[address] [place] [address] 99425 MCH (RBC) [Entitic mass] 27 pg Normal 27 - 33 [facility] Comment on above: Performed By: #### [id number] ## ## [facility],[address] [place] [address] 38662 MCHC 32 X10 3 Normal 32 - 36 [facility] Comment on above: Performed By: #### [id number] ## ## [facility],[address] [place] [address] 77927 MCV (RBC) [Entitic vol] 86 fL Normal 80 - 99 [facility] Comment on above: Performed By: #### [id number] ## ## [facility],[address] [place] [address] 66328 [place] # 0.40 x10EE3/UL Normal 0.20 - 1.00 [facility] Comment on above: Performed By: #### [id number] ## ## [facility],[address] [place] [address] 49821 MONOS % 9.5 % Normal 0.0 - 10.0 [facility] Comment on above: Performed By: #### [id number] ## ## [facility],[address] [place] [address] 18067 Morphology Giovanni (Bld) [Interp] SEE BELOW Normal [facility] Comment on above: Performed By: #### [id number] ## ## [facility],[address] [place] [address] 61483 Neut # 2.80 x10EE3/UL Normal 1.50 - 7.10 [facility] Comment on above: Performed By: #### [id number] ## ## [facility],[address] [place] [address] 50033 Neutrophils/100 WBC (Bld) 66.2 % Normal 46.0 - 76.0 [facility] Comment on above: Performed By: #### [id number] ## ## [facility],[address] [place] [address] 10575 PLATELET 95 x10EE3/UL Low 150 - 450 [facility] Comment on above: Performed By: #### [id number] ## ## [facility],[address] [place] [address] 50386 Platelet mean volume (Bld) 8.8 fL Normal 6.6 - 10.5 [facility] [[facility] Comment on above: Result Comment: AUTOMATED DI FFERENTIAL Performed By: #### [id number] ## ## [facility],[address] [place] [address] 61394 RBC 5.05 x 10EE6/UL Normal 4.10 - 5.30 [facility] Comment on above: Performed By: #### [id number] ## ## [facility],[address] [place] [address] 70984 WBC 4.3 x 10EE3/UL Low 4.5 - 10.8 [facility] Comment on above: Performed By: #### [id number] ## ## [facility],[address] [place] [address] 20064 CHEST 1 VIEW on 11-17-[address] [facility] Normal [place] [address] Patient: EVER MCKEON Phone#: : 1970 Age: 52 Gender: F Pt. Type: ER Account: [id number] Location: 052 Ordering: EYAL FRANCO Exam Date: 11/17/2022/16:38 Family Phys: Charge Code: 622174 Physician: Wharton Order #: [id number] Dose#: PROCEDURE: X-RAY CHEST 1 VIEW COMPARISON: [facility], XR, CHEST 1 VIEW, 2022, 19:10. [...] eGFR on 11-17-2022 AGE 52 years Normal [facility] Comment on above: Performed By: #### [id number] ## ## [facility],[address] [place] [address] 42488 Albumin [Mass/Vol] 3.4 g/dL Normal 3.4 - 5.0 [facility] Comment on above: Performed By: #### [id number] ## ## [facility],[address] [place] [address] 17781 Albumin/Globulin [Mass ratio] 0.9 {ratio} Normal 0.9 - 1.6 [facility] Comment on above: Performed By: #### [id number] ## ## [facility],[address] [place] [address] 26664 ALK PHOS 173 U/L High 46 - 116 [facility] Comment on above: Performed By: #### [id number] ## ## [facility],[address] [place] [address] 40949 ALT [Catalytic activity/Vol] 38 U/L Normal 14 - 59 [facility] Comment on above: Performed By: #### [id number] ## ## [facility],[address] [place] [address] 09866 Anion gap [Moles/Vol] 13 mmol/L Normal 10 - 20 [facility] Comment on above: Performed By: #### [id number] ## ## [facility],[address] [place] [address] 44238 AST [Catalytic activity/Vol] 58 U/L High 13 - 39 [facility] Comment on above: Performed By: #### [id number] ## ## [facility],[address] [place] [address] 88887 B/C RATIO 17 ratio Normal 0 - 30 [facility] Comment on above: Performed By: #### [id number] ## ## [facility],[address] [place] [address] 73117 Bilirubin [Mass/Vol] 1.0 mg/dL Normal 0.2 - 1.0 [facility] Comment on above: Performed By: #### [id number] ## ## [facility],[address] [place] [address] 15377 Calcium [Mass/Vol] 9.5 mg/dL Normal 8.5 - 10.1 [facility] Comment on above: Performed By: #### [id number] ## ## [facility],[address] [place] [address] 95057 Chloride [Moles/Vol] 111 mmol/L High 98 - 107 [facility] Comment on above: Performed By: #### [id number] ## ## [facility],[address] [place] [address] 48087 CMP with eGFR Normal [facility] Comment on above: Result Comment: COMPREHENSIV E METABOLIC PANEL Performed By: #### [id number] ## ## [facility],[address] [place] [address] 18782 CO2 [Moles/Vol] 27.7 mmol/L Normal 21.0 - 32.0 [facility] Comment on above: Performed By: #### [id number] ## ## [facility],[address] [place], [place] [id number] Creatinine [Mass/Vol] 0.64 mg/dL Normal 0.55 - 1.02 [facility] Comment on above: Performed By: #### [id number] ## ## [facility],[address] [place], [place] [address] GFR/1.73 sq M.predicted mL/min/{1.73_m2} Normal 60 - 999 [facility] among non-blacks MDRD Hospit al (S/P/Bld) [Vol rate/Area] Comment on above: Performed By: #### [id number] ## ## [facility],[address] [place], [place] [address] Result Comment: ACCORDING TO THE NATIONAL KIDNEY [...] g/dL Normal 1.5 - 3.8 [facility] Comment on above: Performed By: #### [id number] ## ## [facility],[address] [place], [place] [address] Glucose [Mass/Vol] 73 mg/dL Low 74 - 106 [facility] Comment on above: Performed By: #### [id number] ## ## [facility],[address] [place] [address] 59677 Potassium [Moles/Vol] 4.8 mmol/L Normal 3.5 - 5.1 [facility] Comment on above: Performed By: #### [id number] ## ## [facility],[address] [place] [address] 59722 Protein [Mass/Vol] 7.2 g/dL Normal 6.4 - 8.2 [facility] Comment on above: Performed By: #### [id number] ## ## [facility],[address] [place] [address] Sodium [Moles/Vol] 147 mmol/L High 136 - 145 [facility] Comment on above: Performed By: #### [id number] ## ## [facility],[address] [place] [address] Urea nitrogen [Mass/Vol] 11 mg/dL Normal 7 - 18 [facility] Comment on above: Performed By: #### [id number] ## ## [facility],[address] [place], [place] [id number] CORONAVIRUS PCR - [place] on 3 SARS-CoV-2 (COVID-19) RNA Negative Normal NORMAL: NEGATIV E [facility] SAADIA+probe Ql (Unsp spec) [facility]ital Comment on above: Performed By: #### [id number] ## ## [facility],[address] [place] [address] SEND TO IC? YES Normal [facility] Comment on above: Result Comment: RESULTS FAXE D TO INFECTION CONTROL. SARS-CoV-2 THIS TEST IS BEING USED UNDE R THE FDA EUA PROCEDURE. THIS ASSAY HAS BEEN VALIDATED IN THE [facility] FOR USE WITH NASOPHARYNGEAL SPECIMENS IN [facility]. INTERPRETIVE DATA LABORATORY TEST RESULTS SHOU LD [...] WITH PUBLIC HEALTH AUTHORITIES. Performed By: #### [id number] ## ## [facility],[address] [place] [address] CT BRAIN W/O CONTRAST on 11-17-2022 CT BRAIN W/O CONTRAST [facility] Normal [place] [address] Patient: EVER MCKEON Phone#: : 1970 Age: 52 Gender: F Pt. Type: ER Account: [id number] Location: [facility] Ordering: EYAL CSERDARELLIK Exam Date: 11/17/2022/16:21 Family Phys: Charge Code: 853327 Physician: Wharton Order #: [id number] Dose#: [id number] PROCEDURE: CT BRAIN WITHOUT CONTRAST COMPARISON: [facility], CT, BRAIN W/O CON, 10/30, 18:38. [...] 11-17-2022 Microscopic CULTURE BLOOD [DIANA] Normal [facility] examination of blood, _BLOOD CULTURE_ [facility] FOR SCANNED REPO RT 11/24/[email or web address] Comment on above: Performed By: #### [id number] ## ## [place] [address] Microscopic CULTURE BLOOD [DIANA] Normal [facility] examination of blood, _BLOOD CULTURE_ [facility] culture [facility] AND [facility]ACH[facility] FOR SCANNED REPO RT 11/24/[email or web address] Comment on above: Performed By: #### [id number] ## ## [place] [address] DRUG SCREEN URINE MEDIC on 11-17-2022 AMPHETAMINES Negative Normal [facility] Comment on above: Performed By: #### [id number] ## ##[place] [address] B-DIAZEPINES Negative Normal [facility] Comment on above: Performed By: #### [id number] ## ##[facility],[address] [place] [address] 84357 BARBITURATES Negative [facility] Comment on above: Performed By: #### [id number] ## ##[facility],[address] [place] [address] 19757 COCAINE Negative [facility] Comment on above: Performed By: #### [id number] ## ##[facility],[address] [place] [address] 18952 DRUG SCREEN URINE MEDIC [facility] Comment on above: Result Comment: DRUG SCREEN - URINE Performed By: #### [id number] ## ##[facility],[address] [place] [address] 04313 METHADONE Negative [facility] Comment on above: Performed By: #### [id number] ## ##[facility],[address] [place] [address] 35793 OPIATES Negative [facility] Comment on above: Performed By: #### [id number] ## ##[facility],[address] [place] [address] 44156 PCP Negative [facility] Comment on above: Performed By: #### [id number] ## ##[facility],[address] [place] [address] 13531 THC Negative [facility] Comment on above: Result Comment: PATIENTS REC EIVING PROTON PUMP INHIBITORS MAY DEMONSTRATE FALSE POSITIVE THC/CANNABINOID RESULTS. AN ALTERNATIVE CONFIRMATORY METHOD SHOULD BE CONSIDERED TO VERIFY POSITIVE RESULTS. Performed By: #### [id number] ## ##[facility],[address] [place] [address] 15229 INFLUENZA VIRUS RAPID A/B on 3 INFLUENZA VIRUS RAPID INFLUENZA A [facility] B NEGATIVE INTERNAL NEG QC [...] NO Comment on above: Performed By: #### [id number] ## ##[place] [id number] LACTATE on 11-17-2022 Lactate [Moles/Vol] 0.7 mmol/L Normal 0.4 - 2.0 [facility] Comment on above: Performed By: #### [id number] ## ## [facility],[address] [place], [place] [address] PROTHROMBIN TIME AND INR on 11-17-2022 INR Coag (PPP) [Relative time] 1.1 {INR} Normal 0.8 - 1.2 [facility] Comment on above: Result Comment: [...] MECHANICAL HEART V JOSEPH Performed By: #### [id number] ## ## [facility],[address] [place], [place] [address] PROTHROMBIN TIME AND INR Normal [facility] Comment on above: Result Comment: PROTHROMBIN TIME AND INR Performed By: #### [id number] ## ## [facility],[address],[place] [address] PT-COUMADIN 13.3 sec Normal 9.3 - 14.1 [facility] Comment on above: Performed By: #### [id number] ## ## [facility],[address] [place] [address] 61492 TROPONIN I, HIGH SENSITIVITY on 023 HS TROPONIN 7.8 pg/mL Normal 0.0 - 51.4 [facility] Comment on above: Performed By: #### [id number] ## ##[facility],[address] [place] [address] 31661 HS TROPONIN 7.9 pg/mL Normal 0.0 - 51.4 [facility] Comment on above: Performed By: #### [id number] ## ## [facility],[address] [place] [address] 02019 URINALYSIS on 11-17-2022 Amorphous NONE Normal [facility] Comment on above: Performed By: #### [id number] ## ## [facility],[address] [place] [address] 84959 Bacteria 2+ Normal [facility] Comment on above: Performed By: #### [id number] ## ## [facility],[address] [place] [address] 24801 Bilirubin Ql (U) Negative Normal NORMAL: NEGATIVE [facility] Comment on above: Performed By: #### [id number] ## ## [facility],[address] [place] [address] 44404 Casts NONE Normal [facility] Comment on above: Performed By: #### [id number] ## ## [facility],[address] [place] [address] 82473 Clarity (U) clear Normal NORMAL: CLEAR [facility] Comment on above: Performed By: #### [id number] ## ## [facility],[address] [place] [address] 01694 Color (U) p.yel Normal NORMAL: YELLOW [facility] Comment on above: Performed By: #### [id number] ## ## [facility],[address] [place] [address] 53079 Crystals LM Nom (Urine sed) NONE Normal [facility] Comment on above: Performed By: #### [id number] ## ## [facility],[address] [place] [address] 72562 Epi Cells FEW Normal [facility] Comment on above: Performed By: #### [id number] ## ## [facility],[address] [place] [address],[facility] [address] Glucose Ql (U) NORM Normal NORMAL: NORMAL [facility] Comment on above: Performed By: #### [id number] ## ## [facility],[address] [place] [address] 84373 Hemoglobin Ql (U) 10 Abnormal NORMAL: NEGATIVE [facility] Comment on above: Performed By: #### [id number] ## ## [facility],[address] [place] [address] 69588 Ketone Negative Normal NORMAL: NEGATIVE [facility] Comment on above: Performed By: #### [id number] ## ## [facility],[address] [place] [address] 04570 Leukocytes Negative Normal NORMAL: NEGATIVE [facility] Comment on above: Performed By: #### [id number] ## ## [facility],[address] [place] [address] 35792 Mucous NONE Normal [facility] Comment on above: Performed By: #### [id number] ## ## [facility],[address] [place] [address] 32706 Nitrite Ql (U) Negative Normal NORMAL: NEGATIVE [facility] Comment on above: Performed By: #### [id number] ## ## [facility],[address] [place] [address] pH (U) 7 [pH] Normal NORMAL: 5.0-8.0 [facility] Comment on above: Performed By: #### [id number] ## ## [facility],[address] [place] [address] Protein Ql (U) Negative Normal NORMAL: NEGATIVE [facility] Comment on above: Performed By: #### [id number] ## ## [facility],[address] [place] [address] Rbc 0-5 Normal 0-3/hpf [facility] Comment on above: Performed By: #### [id number] ## ## [facility],[address] [place] [address] Sp Trilla 1.005 Low NORMAL: 1.010-1.030 [facility] Comment on above: Performed By: #### [id number] ## ## [facility],[address] [place] [address] Specimen Type UNSPECIFIED Normal [facility] Comment on above: Performed By: #### [id number] ## ## [facility],[address] [place] [address] Urinalysis dipstick W Reflex SEE BELOW Normal [facility] Microscopic panel (U) Comment on above: Result Comment: MICROSCOPIC Performed By: #### [id number] ## ## [facility],[address] [place] [address] Urobilinog 1 Abnormal NORMAL: NORMAL [facility] Comment on above: Performed By: #### [id number] ## ## [facility],[address] [place] [address] Wbc 1-5 Normal 0-5/hpf [facility] Comment on above: Performed By: #### [id number] ## ## [facility],[address] [place] [address] Yeast NONE Normal [facility] Comment on above: Performed By: #### [id number] ## ## [facility],[address] [place] [address] 18315 URINE CULTURE [CCL] on 11-17-2022 Bacteria identified Cx URCUL Normal [facility] Nom (U) See Results Below Hospital See Below CULTURE, URINE NORMAL UROGENITAL SHANEKA >=100,000 CFU/ml Normal urogenital shaneka SOURCE: URINE [facility] [address] [place] [address] Aristeo Malloy III, M.D. [id number] Comment on above: Performed By: #### [id number] ## ## [facility],[address] [place] [address] 53145 EMERGENCY REPORT on 11-12-2022 EMERGENCY REPORT [facility] Normal [facility] EMERGENCY ROOM REPORT NAME ACCOUNT SEX AGE ADMIT DISCHARGE PT MED. RECORD# NUMBER DATE DATE TYPE LINDA, [id number] F 52 10/30/22 10/31/22 3 [facility] [id number] ROOM: ER DATE OF : 1970 DICTATING [...] to consult. So I spoke with the [facility] transfer line since this patient had been admitted up there at [facility] in September of 2022 for same problem. I spo ke with Dr. Woodward[facility]. He d id accept the patient for admission, direct admission to their regular medical floor under his service. Presently we are awaiting a bed assignment. Once we have that we will ca ll an ambulance for EMS transfer to [facility] for direct admission and for the therapy. DIAGNOSES: 1. Hepatic encephalopathy. 2. Altered mental status secondary to number one. 3. Influenza A. Dictated By: [place] DO 10/30/22 21:41 JOB #: [id number] Transcribed By: [email or web address] 11/02/22 00:53 Electronically signed by: E-Sign: Dr. [place] D.O. 11/12/22 06:41 Page 1 of 2 EVER MCKEON Emergency Room Report EVER MCKEON : 1970 Page 2 of 2 EVER MCKEON Emergency Room Report CNPN on 11-10-2022 [place]ERT[place] Telephone (ROSALBA) Normal [facility] EVER MCKEON ([id number]) 1970 F Medical Date Time Provider Department [...] Basophil, Absolute 0.0 10 3/mcL Normal 0.0-0.3 [facility] ([place] Comment on above: Performed By: #### CMP, GFR, AMM, LAC, HEPAC #### [facility] [address] [place], [place] [address] Basophils/100 WBC (Bld) 0.7 % Normal 0.0-2.5 [facility] ([place]) Comment on above: Performed By: #### CMP, GFR, AMM, LAC, HEPAC #### [address] [address] Eosinophil, Absolute 0.3 10 3/mcL Normal 0.0-0.7 [facility] ([place] Comment on above: Performed By: #### CMP, GFR, AMM, LAC, HEPAC #### [address] [address] Eosinophils/100 WBC (Bld) 6.0 % Normal 0.0-6.0 [facility] ([place]) Comment on above: Performed By: #### CMP, GFR, AMM, LAC, HEPAC #### [address] [address] Lymphocyte, Absolute 1.5 10 3/mcL Normal 0.9-4.3 [facility] ([place] Comment on above: Performed By: #### CMP, GFR, AMM, LAC, HEPAC #### [address] [address] Lymphocytes/100 WBC (Bld) 25.3 % Normal 20.0-40.0 [facility] ([place] Comment on above: Performed By: #### CMP, GFR, AMM, LAC, HEPAC #### [address] [address] Monocyte, Absolute 0.8 10 3/mcL Normal 0.1-1.4 [facility] ([place] Comment on above: Performed By: #### CMP, GFR, AMM, LAC, HEPAC #### [address] [address] Monocytes/100 WBC (Bld) 14.4 % High 2.0-13.0 [facility] ([place] Comment on above: Performed By: #### CMP, GFR, AMM, LAC, HEPAC #### [address] [address] Neutrophils/100 WBC (Bld) 53.6 % Normal 50.0-75.0 [facility] ([place]) Comment on above: Performed By: #### CMP, GFR, AMM, LAC, HEPAC #### [address] [address] .GFR on 11-02-2022 GFR Non- >60 Normal [facility] ([place]) Comment on above: Result Comment: GFR Population mean for Afri can B[place]ian, Non- Americans Ages 20-29 = 116 mL/min/1.73 [...] #### CMP, GFR, AMM, LAC, HEPAC #### [place] [address] GFR >60 Normal [facility] ([place]) Comment on above: Result Comment: GFR Population mean for Afri can Berm[place]ian, Non- Americans Ages 20-29 = 116 mL/min/1.73 [...] #### CMP, GFR, AMM, LAC, HEPAC #### [address] [address] .Morph on 11-02-2022 Anisocytosis Ql (Bld) 2+ Normal [facility] ([place]) Comment on above: Performed By: #### CMP, GFR, AMM, LAC, HEPAC #### [address] [address] Ovalocytes 1+ Normal [facility] ([place] Comment on above: Performed By: #### CMP, GFR, AMM, LAC, HEPAC #### [place] [address] Platelet Estimate Decreased Normal [facility] ([place]) Comment on above: Performed By: #### CMP, GFR, AMM, LAC, HEPAC #### [address] [address] Poik 1+ Normal [facility] ([place]) Comment on above: Performed By: #### CMP, GFR, AMM, LAC, HEPAC #### [place] [address] Tear Cell 1+ Normal [facility] ([place]) Comment on above: Performed By: #### CMP, GFR, AMM, LAC, HEPAC #### [address] [address] .NEUABS on 11-02-2022 Neutrophil, Absolute 3.1 10 3/mcL Normal 2.3-8.1 [facility] ([place] Comment on above: Performed By: #### CMP, GFR, AMM, LAC, HEPAC #### [place] [id number] AMM on 11-02-2022 Ammonia 111 mcmol/l High 11-32 [facility] ([place]) Comment on above: Performed By: #### CMP, GFR, AMM, LAC, HEPAC #### [address] [address] BMP on 11-02-2022 BUN/Creatinine Ratio 23.7 ratio High 10.0-22.0 [facility] ([place]) Comment on above: Performed By: #### CMP, GFR, AMM, LAC, HEPAC #### [place] [address] Calcium [Mass/Vol] 9.5 mg/dL Normal 8.7-10.4 [facility] ([place] Comment on above: Performed By: #### CMP, GFR, AMM, LAC, HEPAC #### [address] [address] Chloride [Moles/Vol] 110 mmol/L Normal 98-110 [facility] ([place] Comment on above: Performed By: #### CMP, GFR, AMM, LAC, HEPAC #### [address] [address] CO2 [Moles/Vol] 27 mmol/L Normal 22-32 formerly [facility] ([place] Comment on above: Performed By: #### CMP, GFR, AMM, LAC, HEPAC #### [address] [address] Creatinine [Mass/Vol] 0.76 mg/dL Normal 0.50-1.20 [facility] ([place]) Comment on above: Performed By: #### CMP, GFR, AMM, LAC, HEPAC #### [address] [address] Electrolyte Balance 4.0 mEq/L Normal 4.0-15.0 [facility] ([place]) Comment on above: Performed By: #### CMP, GFR, AMM, LAC, HEPAC #### [address] [address] Glucose [Mass/Vol] 82 mg/dL Normal 70-110 [facility] ([place] Comment on above: Performed By: #### CMP, GFR, AMM, LAC, HEPAC #### [address] [address] Potassium [Moles/Vol] 3.8 mmol/L Normal 3.5-5.0 [facility] ([place] Comment on above: Performed By: #### CMP, GFR, AMM, LAC, HEPAC #### [address] [address] Sodium [Moles/Vol] 141 mmol/L Normal 136-145 [facility] ([place] Comment on above: Performed By: #### CMP, GFR, AMM, LAC, HEPAC #### [place] [id number] Urea nitrogen [Mass/Vol] 18.0 mg/dL Normal 8.0-22.0 [facility] ([place]) Comment on above: Performed By: #### CMP, GFR, AMM, LAC, HEPAC #### [place] [id number] CBC on 11-02-2022 Erythrocyte distribution width 27.7 % High 11.5-15.5 [facility] ([place]) (RBC) [Ratio] Comment on above: Performed By: #### CMP, GFR, AMM, LAC, HEPAC #### [place] [id number] Hematocrit (Bld) [Volume 35.6 % Normal 34.0-46.0 [facility] ([place]) fraction] Comment on above: Performed By: #### CMP, GFR, AMM, LAC, HEPAC #### [place] [id number] Hgb 11.7 G/dL Low 12.0-16.0 [facility] ([place] Comment on above: Performed By: #### CMP, GFR, AMM, LAC, HEPAC #### [place] [address] MCH (RBC) [Entitic mass] 27.1 pg Normal 27.0-33.0 [facility] ([place]) Comment on above: Performed By: #### CMP, GFR, AMM, LAC, HEPAC #### [place] [id number] MCHC 32.9 G/dL Normal 32.0-36.0 [facility] ([place]) Comment on above: Performed By: #### CMP, GFR, AMM, LAC, HEPAC #### [place] [address] MCV (RBC) [Entitic vol] 82.5 fL Normal 80.0-99.0 [facility] ([place]) Comment on above: Performed By: #### CMP, GFR, AMM, LAC, HEPAC #### [facility] [address] [place] [address] Platelet 69 10 3/mcL Low 150-450 [facility] ([place]) Comment on above: Performed By: #### CMP, GFR, AMM, LAC, HEPAC #### [facility] [address] [place] [address] Platelet mean volume (Bld) 8.6 fL Normal 6.6-10.5 [facility] ([place]) [Entitic vol] Comment on above: Performed By: #### CMP, GFR, AMM, LAC, HEPAC #### [address] [address] RBC 4.31 10 6/mcL Normal 4.10-5.30 [facility] ([place] Comment on above: Performed By: #### CMP, GFR, AMM, LAC, HEPAC #### [address] [address] WBC 5.8 10 3/mcL Normal 4.5-10.8 [facility] ([place] Comment on above: Performed By: #### CMP, GFR, AMM, LAC, HEPAC #### [address] [address] LABORATORY Ordered By: Gogo Campbell on 11-02-2022 Blood Glucose Routine [facility] al Testing Reason (11/02/22 8:11 AM) Work Phon e: Glucose 94 mg/dL Invalid Interpretation 70 - 110 [facility] [Mass/Vol] Code mg/dL Work Phone: LABORATORY [...] Basophil, Absolute 0.0 10 3/mcL Normal 0.0-0.3 [facility] ([place] Comment on above: Performed By: #### CMP, GFR, AMM, LAC, HEPAC #### [address] [address] Basophils/100 WBC (Bld) 0.7 % Normal 0.0-2.5 [facility] ([place]) Comment on above: Performed By: #### CMP, GFR, AMM, LAC, HEPAC #### [address] [address] Eosinophil, Absolute 0.3 10 3/mcL Normal 0.0-0.7 [facility] ([place] Comment on above: Performed By: #### CMP, GFR, AMM, LAC, HEPAC #### [address] [address] Eosinophils/100 WBC (Bld) 4.6 % Normal 0.0-6.0 [facility] ([place]) Comment on above: Performed By: #### CMP, GFR, AMM, LAC, HEPAC #### [address] [address] Lymphocyte, Absolute 1.0 10 3/mcL Normal 0.9-4.3 [facility] ([place]) Comment on above: Performed By: #### CMP, GFR, AMM, LAC, HEPAC #### [address] [address] Lymphocytes/100 WBC (Bld) 16.9 % Low 20.0-40.0 [facility] ([place]) Comment on above: Performed By: #### CMP, GFR, AMM, LAC, HEPAC #### [address] [address] Monocyte, Absolute 0.8 10 3/mcL Normal 0.1-1.4 [facility] ([place] Comment on above: Performed By: #### CMP, GFR, AMM, LAC, HEPAC #### [address] [address] Monocytes/100 WBC (Bld) 14.5 % High 2.0-13.0 [facility] ([place] Comment on above: Performed By: #### CMP, GFR, AMM, LAC, HEPAC #### [address] [address] Neutrophils/100 WBC (Bld) 63.3 % Normal 50.0-75.0 [facility] ([place]) Comment on above: Performed By: #### CMP, GFR, AMM, LAC, HEPAC #### [address] [address] .GFR on 11-01-2022 GFR >60 Normal [facility] ([place]) Comment on above: Result Comment: GFR Population mean for Afri can [place]ian, Non- Americans Ages 20-29 = 116 mL/min/1.73 [...] #### CMP, GFR, AMM, LAC, HEPAC #### [address] [address] GFR Non- >60 Normal [facility] ([place]) Comment on above: Result Comment: GFR Population mean for Afri can [place]ian, Non- Americans Ages 20-29 = 116 mL/min/1.73 [...] #### CMP, GFR, AMM, LAC, HEPAC #### [address] [address] .Morph on 11-01-2022 Anisocytosis Ql (Bld) 2+ Normal [facility] ([place]) Comment on above: Performed By: #### CMP, GFR, AMM, LAC, HEPAC #### [place] [address] Ovalocytes 1+ Normal [facility] ([place]) Comment on above: Performed By: #### CMP, GFR, AMM, LAC, HEPAC #### [place] [address] Platelet Estimate Decreased Normal [facility] ([place]) Comment on above: Performed By: #### CMP, GFR, AMM, LAC, HEPAC #### [place] [address] Poik 1+ Normal [facility] ([place]) Comment on above: Performed By: #### CMP, GFR, AMM, LAC, HEPAC #### [place] [address] Tear Cell 1+ Normal [facility] ([place]) Comment on above: Performed By: #### CMP, GFR, AMM, LAC, HEPAC #### [place] [address] .NEUABS on 11-01-2022 Neutrophil, Absolute 3.6 10 3/mcL Normal 2.3-8.1 [facility] ([place]) Comment on above: Performed By: #### CMP, GFR, AMM, LAC, HEPAC #### [place] [address] AMM on 11-01-2022 Ammonia 77 mcmol/l High 11-32 [facility] ([place]) Comment on above: Performed By: #### CMP, GFR, AMM, LAC, HEPAC #### [address] [address] BMP on 11-01-2022 BUN/Creatinine Ratio 21.4 ratio Normal 10.0-22.0 [facility] ([place]) Comment on above: Performed By: #### CMP, GFR, AMM, LAC, HEPAC #### [address] [address] Calcium [Mass/Vol] 9.6 mg/dL Normal 8.7-10.4 [facility] ([place]) Comment on above: Performed By: #### CMP, GFR, AMM, LAC, HEPAC #### [place] [id number] Chloride [Moles/Vol] 109 mmol/L Normal 98-110 [facility] ([place] Comment on above: Performed By: #### CMP, GFR, AMM, LAC, HEPAC #### [place] [id number] CO2 [Moles/Vol] 24 mmol/L Normal 22-32 [facility] ([place] Comment on above: Performed By: #### CMP, GFR, AMM, LAC, HEPAC #### [place] [id number] Creatinine [Mass/Vol] 0.70 mg/dL Normal 0.50-1.20 [facility] ([place]) Comment on above: Performed By: #### CMP, GFR, AMM, LAC, HEPAC #### [place] [id number] Electrolyte Balance 8.0 mEq/L Normal 4.0-15.0 [facility] ([place]) Comment on above: Performed By: #### CMP, GFR, AMM, LAC, HEPAC #### [place] [id number] Glucose [Mass/Vol] 132 mg/dL High 70-110 [facility] ([place] Comment on above: Performed By: #### CMP, GFR, AMM, LAC, HEPAC #### [place] [id number] Potassium [Moles/Vol] 3.9 mmol/L Normal 3.5-5.0 [facility] ([place]) Comment on above: Performed By: #### CMP, GFR, AMM, LAC, HEPAC #### [address] [address] Sodium [Moles/Vol] 141 mmol/L Normal 136-145 [facility] ([place] Comment on above: Performed By: #### CMP, GFR, AMM, LAC, HEPAC #### [place] [id number] Urea nitrogen [Mass/Vol] 15.0 mg/dL Normal 8.0-22.0 [facility] ([place]) Comment on above: Performed By: #### CMP, GFR, AMM, LAC, HEPAC #### [address] [address] CBC on 11-01-2022 Erythrocyte distribution width 27.9 % High 11.5-15.5 [facility] ([place] (RBC) [Ratio] Comment on above: Performed By: #### CMP, GFR, AMM, LAC, HEPAC #### [place] [address] Hematocrit (Bld) [Volume 38.7 % Normal 34.0-46.0 [facility] ([place]) fraction] Comment on above: Performed By: #### CMP, GFR, AMM, LAC, HEPAC #### [place] [id number] Hgb 12.4 G/dL Normal 12.0-16.0 [facility] ([place]) Comment on above: Performed By: #### CMP, GFR, AMM, LAC, HEPAC #### [address] [address] MCH (RBC) [Entitic mass] 26.7 pg Low 27.0-33.0 [facility] ([place]) Comment on above: Performed By: #### CMP, GFR, AMM, LAC, HEPAC #### [place] [id number] MCHC 32.0 G/dL Normal 32.0-36.0 [facility] ([place] Comment on above: Performed By: #### CMP, GFR, AMM, LAC, HEPAC #### [address] [address] MCV (RBC) [Entitic vol] 83.2 fL Normal 80.0-99.0 [facility] ([place] Comment on above: Performed By: #### CMP, GFR, AMM, LAC, HEPAC #### [place] [id number] Platelet 70 10 3/mcL Low 150-450 [facility] ([place]) Comment on above: Performed By: #### CMP, GFR, AMM, LAC, HEPAC #### [place] [id number] Platelet mean volume (Bld) 8.6 fL Normal 6.6-10.5 [facility] ([place] [Entitic vol] Comment on above: Performed By: #### CMP, GFR, AMM, LAC, HEPAC #### [place] [id number] RBC 4.66 10 6/mcL Normal 4.10-5.30 [facility] ([place] Comment on above: Performed By: #### CMP, GFR, AMM, LAC, HEPAC #### [place] [id number] WBC 5.8 10 3/mcL Normal 4.5-10.8 [facility] ([place] Comment on above: Performed By: #### CMP, GFR, AMM, LAC, HEPAC #### [place] [id number] EMERGENCY REPORT on 11-01-2022 EMERGENCY REPORT [facility] Normal [facility] EMERGENCY ROOM REPORT NAME ACCOUNT SEX AGE ADMIT DISCHARGE PT MED. RECORD# NUMBER DATE DATE TYPE LINDA [id number] F [id number] 10/30/22 10/31/22 3 [facility] [id number] ROOM: ER DATE OF : 1970 DICTATING [...] We did ask her to do the [id number] test, and she did that very poorly. [...] [Mass/Vol] 106 mg/dL Invalid 70 - 110 [facility] Interpretation Code mg/dL Work Adolfo ne: Blood Glucose Routine [facility] al Testing Reason (11/01/22 4:34 PM) Work Phon e: Glucose [Mass/Vol] 112 mg/dL Invalid 70 - 110 [facility] Interpretation Code mg/dL Work Adolfo ne: LABORATORY Ordered By: Wolf Choi on 0 11-01-2022 Blood Glucose Testing Reason Routine [facility] (11/01/22 12:57 PM) Blood Glucose Interventions Administered food/juice [facility] (11/01/22 12:11 PM) LABORATORY Ordered By: [employer] on 11-01-2022 Ammonia (P) 77 umol/L Invalid [...] Basophil, Absolute 0.0 10 3/mcL Normal 0.0-0.3 [facility] ([place] Comment on above: Performed By: #### GFR, MG, PRO, CMP, AMM #### [address] [address] Basophils/100 WBC (Bld) 1.0 % Normal 0.0-2.5 [facility] ([place] Comment on above: Performed By: #### GFR, MG, PRO, CMP, AMM #### [address] [address] Eosinophil, Absolute 0.3 10 3/mcL Normal 0.0-0.7 [facility] ([place]) Comment on above: Performed By: #### GFR, MG, PRO, CMP, AMM #### [address] [address] Eosinophils/100 WBC (Bld) 7.3 % High 0.0-6.0 [facility] ([place]) Comment on above: Performed By: #### GFR, MG, PRO, CMP, AMM #### [address] [address] Lymphocyte, Absolute 1.2 10 3/mcL Normal 0.9-4.3 [facility] ([place]) Comment on above: Performed By: #### GFR, MG, PRO, CMP, AMM #### [address] [address] Lymphocytes/100 WBC (Bld) 27.6 % Normal 20.0-40.0 [facility] ([place]) Comment on above: Performed By: #### GFR, MG, PRO, CMP, AMM #### [address] [address] Monocyte, Absolute 0.6 10 3/mcL Normal 0.1-1.4 [facility] ([place]) Comment on above: Performed By: #### GFR, MG, PRO, CMP, AMM #### [address] [address] Monocytes/100 WBC (Bld) 13.2 % High 2.0-13.0 [facility] ([place]) Comment on above: Performed By: #### GFR, MG, PRO, CMP, AMM #### [address] [address] Neutrophils/100 WBC (Bld) 50.9 % Normal 50.0-75.0 [facility] ([place]) Comment on above: Performed By: #### GFR, MG, PRO, CMP, AMM #### [address] [address] .GFR on 10-31-2022 GFR Non- >60 Normal [facility] ([place]) Comment on above: Result Comment: GFR Population mean for Afri can B[place]ian, Non- Americans Ages 20-29 = 116 mL/min/1.73 [...] square meters Performed By: #### LAC #### [place] [address] GFR >60 Normal [facility] ([place]) Comment on above: Result Comment: GFR Population mean for Afri can [place]ian, Non- Americans Ages 20-29 = 116 mL/min/1.73 [...] square meters Performed By: #### LAC #### [address] [address] .Morph on 10-31-2022 Anisocytosis Ql (Bld) 2+ Normal [facility] ([place]) Comment on above: Performed By: #### GFR, MG, PRO, CMP, AMM #### [place] [address] Ovalocytes 1+ Normal [facility] ([place]) Comment on above: Performed By: #### GFR, MG, PRO, CMP, AMM #### [place] [address] Platelet Estimate Decreased Normal [facility] ([place] Comment on above: Performed By: #### GFR, MG, PRO, CMP, AMM #### [place] [address] Poik 1+ Normal [facility] ([place]) Comment on above: Performed By: #### GFR, MG, PRO, CMP, AMM #### [place] [address] Tear Cell 1+ Normal [facility] ([place]) Comment on above: Performed By: #### GFR, MG, PRO, CMP, AMM #### [place] [address] .NEUABS on 10-31-2022 Neutrophil, Absolute 2.2 10 3/mcL Low 2.3-8.1 [facility]) Comment on above: Performed By: #### GFR, MG, PRO, CMP, AMM #### [place] [address] AMM on 10-31-2022 Ammonia 127 mcmol/l High 11-32 [facility] ([place]) Comment on above: Performed By: #### LAC #### [place] [address] CBC on 10-31-2022 Erythrocyte distribution width 28.4 % High 11.5-15.5 [facility] ([place] (RBC) [Ratio] Comment on above: Performed By: #### LAC #### [place] [address] Hematocrit (Bld) [Volume 37.5 % Normal 34.0-46.0 [facility] ([place]) fraction] Comment on above: Performed By: #### LAC #### [place] [address] Hgb 12.1 G/dL Normal 12.0-16.0 [facility] ([place]) Comment on above: Performed By: #### LAC #### [address] [address] MCH (RBC) [Entitic mass] 26.8 pg Low 27.0-33.0 [facility] ([place]) Comment on above: Performed By: #### LAC #### [place] [id number] MCHC 32.3 G/dL Normal 32.0-36.0 [facility] ([place] Comment on above: Performed By: #### LAC #### [place] [id number] MCV (RBC) [Entitic vol] 83.1 fL Normal 80.0-99.0 [facility] ([place] Comment on above: Performed By: #### LAC #### [place] [address] Platelet 80 10 3/mcL Low 150-450 [facility] ([place] Comment on above: Performed By: #### LAC #### [place] [address] Platelet mean volume (Bld) 8.6 fL Normal 6.6-10.5 [facility] ([place] [Entitic vol] Comment on above: Performed By: #### LAC #### [place] [address] RBC 4.51 10 6/mcL Normal 4.10-5.30 [facility] ([place] Comment on above: Performed By: #### LAC #### [place] [address] WBC 4.3 10 3/mcL Low 4.5-10.8 [facility] ([place]) Comment on above: Performed By: #### LAC #### [place] [id number] CMP on 10-31-2022 Albumin Level 3.3 G/dL Normal 3.2-4.8 [facility] ([place] Comment on above: Performed By: #### LAC #### [place] [address] Albumin/Globulin [Mass ratio] 1.0 {ratio} Normal 0.9-1.6 [facility] ([place] Comment on above: Performed By: #### LAC #### [address] [address] ALP [Catalytic activity/Vol] 135 U/L High 38-126 [facility] ([place]) Comment on above: Performed By: #### LAC #### [address] [address] ALT [Catalytic activity/Vol] 25 U/L Normal 10-49 [facility] ([place]) Comment on above: Performed By: #### LAC #### [address] [address] AST [Catalytic activity/Vol] 41 U/L High 8-34 [facility] ([place] Comment on above: Performed By: #### LAC #### [address] [address] Bili Total 1.40 mg/dL High 0.20-1.20 [facility] ([place] Comment on above: Result Comment: Use of this assay is not recommended for patients undergoing treatment with eltrombopag d ue to the potential for falsely elevated results. Performed By: #### LAC #### [place] [id number] BUN/Creatinine Ratio 18.3 ratio Normal 10.0-22.0 [facility] ([place]) Comment on above: Performed By: #### LAC #### [address] [address] Calcium [Mass/Vol] 9.4 mg/dL Normal 8.7-10.4 [facility] ([place] Comment on above: Performed By: #### LAC #### [address] [address] Chloride [Moles/Vol] 111 mmol/L High 98-110 [facility] ([place] Comment on above: Performed By: #### LAC #### [address] [address] CO2 [Moles/Vol] 22 mmol/L Normal 22-32 [facility] ([place] Comment on above: Performed By: #### LAC #### [address] [address] Creatinine [Mass/Vol] 0.82 mg/dL Normal 0.50-1.20 [facility] ([place]) Comment on above: Performed By: #### LAC #### [address] [address] Electrolyte Balance 9.0 mEq/L Normal 4.0-15.0 [facility] ([place] Comment on above: Performed By: #### LAC #### [address] [address] Globulin 3.2 G/dL Normal 1.5-3.8 [facility] ([place] Comment on above: Performed By: #### LAC #### [place] [id number] Glucose [Mass/Vol] 244 mg/dL High 70-110 [facility] ([place] Comment on above: Performed By: #### LAC #### [place] [id number] Potassium [Moles/Vol] 4.0 mmol/L Normal 3.5-5.0 [facility] ([place]) Comment on above: Performed By: #### LAC #### [place] [id number] Sodium [Moles/Vol] 142 mmol/L Normal 136-145 [facility] ([place] Comment on above: Performed By: #### LAC #### [place] [id number] Total Protein 6.5 G/dL Normal 5.7-8.2 [facility] ([place]) Comment on above: Result Comment: Note - New Reference Range in effect 20 Performed By: #### LAC #### [address] [address] Urea nitrogen [Mass/Vol] 15.0 mg/dL Normal 8.0-22.0 [facility] ([place]) Comment on above: Performed By: #### LAC #### [address] [address] LABORATORY Ordered By: SYSTEM SYSTEM on 10-31-2022 [...] 10-31-2022 Magnesium [Mass/Vol] 2.0 mg/dL Normal 1.6-2.4 [facility] ([place]) Comment on above: Performed By: #### LAC #### [address] [address] PRO on 10-31-2022 INR Coag (PPP) [Relative time] 1.2 {INR} Normal [facility] ([place]) Comment on above: Result Comment: The [place] [employer] (CHEST, 1992, 102:312S-25S) recommended therapeutic rang e for oral anticoagulant therapy is: LOW RISK: Prophylaxis of starr ous thrombosis INR: 2.0-3.0 Treatment of pulmonary embol ism 2.0-3.0 Prevention of systemic embol ism 2.0-3.0 HIGH RISK: Mechanical prosth etic valves 2.5-3.5 Performed By: #### LAC #### [address] [address] PT Coag (PPP) [Time] 15.0 s High 9.0-14.9 [facility] ([place]) Comment on above: Result Comment: Effective , Protime results may be affected by some antibiotics (i.e. Ci profloxacin, Azithromycin, Bactrim) which may potentiate the act ion of oral anticoagulants, with further increases in Protime /INR. Performed By: #### LAC #### [place] [address] ALCOHOL-BLOOD MEDICAL on 10-30-2022 Ethanol [Mass/Vol] mg/dL Normal 0 - 50 [facility] Comment on above: Performed By: #### [id number] ## ## [facility],[address] [place] [address] AMMONIA on 10-30-2022 Ammonia (P) [Moles/Vol] 110.0 umol/L High 11.0 - 32.0 [facility] Comment on above: Performed By: #### [id number] ## ## [facility],[address] [place] [address] CBC (NO DIFF) on 10-30-2022 CBC panel Auto (Bld) Normal [facility] Comment on above: Result Comment: CBC(WITHOUT DIFFERENTIAL) Performed By: #### [id number] ## ## [facility],[address] [place] [address] Erythrocyte distribution width 27.7 % High 12.0 - 15. 6 [facility] (RBC) [Ratio] [facility] Comment on above: Performed By: #### [id number] ## ## [facility],[address] [place], [place] [id number] Hematocrit (Bld) [Volume 41.3 % Normal 34.0 - 46.0 [facility] Comment on above: Performed By: #### [id number] ## ## [facility],[address] [place], [place] [id number] Hemoglobin (Bld) [Mass/Vol] 13.2 g/dL Normal 12.0 - 16.0 [facility] Comment on above: Performed By: #### [id number] ## ## [facility],[address] [place], [place] [id number] MCH (RBC) [Entitic mass] 26 pg Low 27 - 33 [facility] Comment on above: Performed By: #### [id number] ## ## [facility],[address] [place], [place] [id number] MCHC 32 X10 3 Normal 32 - 36 [facility] Comment on above: Performed By: #### [id number] ## ## [facility],[address] [place], [place] [id number] MCV (RBC) [Entitic vol] 82 fL Normal 80 - 99 [facility] Comment on above: Performed By: #### [id number] ## ## [facility],[address] [place] [address] PLATELET 84 x10EE3/UL Low 150 - 450 [facility] Comment on above: Performed By: #### [id number] ## ## [facility],[address] [place], [place] [id number] Platelet mean volume (Bld) 8.5 fL Normal 6.6 - 10.5 [facility] [[facility]] [facility] Comment on above: Result Comment: {CB] Performed By: #### [id number] ## ## [facility] [place] [address] RBC 5.03 x 10EE6/UL Normal 4.10 - 5.30 [facility] Comment on above: Performed By: #### [id number] ## ## [facility],[address] [place] [address] WBC 4.1 x 10EE3/UL Low 4.5 - 10.8 [facility] Comment on above: Performed By: #### [id number] ## ## [facility],[address] [place] [address] CHEST 1 VIEW on 10-30-2022 CHEST 1 VIEW [place] [address] Patient: VEER MCKEON Phone#: : 1970 Age: 52 Gender: F Pt. Type: ER Account: [id number] Location: [facility] Ordering: SAW RIVER Exam Date: 10/30/2022/19:10 Family Phys: Charge Code: [id number] Physician: Wharton Order #: [id number] Dose#: PROCEDURE: X-RAY CHEST 1 VIEW COMPARISON: [facility], XR, CHEST 1 VIEW, 10/02, 23:20. [...] eGFR on 10-30-2022 AGE 52 years Normal [facility] Comment on above: Performed By: #### [id number] ## ##[facility],[address] [place] [address] Albumin [Mass/Vol] 3.6 g/dL Normal 3.4 - 5.0 [facility] Comment on above: Performed By: #### [id number] ## ##[facility],[address] [place] [address] Albumin/Globulin [Mass ratio] 0.9 {ratio} Normal 0.9 - 1.6 [facility] Comment on above: Performed By: #### [id number] ## ##[facility],[address] [place] [address] ALK PHOS 179 U/L High 46 - 116 [facility] Comment on above: Performed By: #### [id number] ## ##[facility],[address] [place] [address] ALT [Catalytic activity/Vol] 33 U/L Normal 14 - 59 [facility] Comment on above: Performed By: #### [id number] ## ##[facility],[address] [place] [address] Anion gap [Moles/Vol] 15 mmol/L Normal 10 - 20 [facility] Comment on above: Performed By: #### [id number] ## ##[facility],[address] [place] [address] 88303 AST [Catalytic activity/Vol] 47 U/L High 13 - 39 [facility] Comment on above: Performed By: #### [id number] ## ##[facility],[address] [place] [address] 33793 B/C RATIO 15 ratio Normal 0 - 30 [facility] Comment on above: Performed By: #### [id number] ## ##[facility],[address] [place] [address] 68450 Bilirubin [Mass/Vol] 1.2 mg/dL High 0.2 - 1.0 [facility] Comment on above: Performed By: #### [id number] ## ##[facility],[address] [place] [address] 99971 Calcium [Mass/Vol] 9.4 mg/dL Normal 8.5 - 10.1 [facility] Comment on above: Performed By: #### [id number] ## ##[facility],[address] [place] [address] 68580 Chloride [Moles/Vol] 108 mmol/L High 98 - 107 [facility] Comment on above: Performed By: #### [id number] ## ##[facility],[address] [place] [address] 09539 CMP with eGFR Normal [facility] Comment on above: Result Comment: COMPREHENSIV E METABOLIC PANEL Performed By: #### [id number] ## ##[facility],[address] [place] [address] 74998 CO2 [Moles/Vol] 24.0 mmol/L Normal 21.0 - 32.0 [facility] Comment on above: Performed By: #### [id number] ## ##[facility],[address] [place] [address] 27303 Creatinine [Mass/Vol] 0.67 mg/dL Normal 0.55 - 1.02 [facility] Comment on above: Performed By: #### [id number] ## ##[facility],[address] [place] [address] 10617 GFR/1.73 sq M.predicted mL/min/{1.73_m2} Normal 60 - 999 [facility] among non-blacks MDRD Hospit al (S/P/Bld) [Vol rate/Area] Comment on above: Performed By: #### [id number] ## ##[facility],[address] [place] [address] 31048 Result Comment: ACCORDING TO THE NATIONAL KIDNEY [...] g/dL High 1.5 - 3.8 [facility] Comment on above: Performed By: #### [id number] ## ##[facility],[address] [place] [address] 66223 Glucose [Mass/Vol] 95 mg/dL Normal 74 - 106 [facility] Comment on above: Performed By: #### [id number] ## ##[facility],[address] [place] [address] 49809 Potassium [Moles/Vol] 4.5 mmol/L Normal 3.5 - 5.1 [facility] Comment on above: Performed By: #### [id number] ## ##[facility],[address] [place] [address] 86932 Protein [Mass/Vol] 7.6 g/dL Normal 6.4 - 8.2 [facility] Comment on above: Performed By: #### [id number] ## ##[facility],[address] [place] [address] 69279 Sodium [Moles/Vol] 142 mmol/L Normal 136 - 145 [facility] Comment on above: Performed By: #### [id number] ## ##[facility],[address] [place] [address] 40798 Urea nitrogen [Mass/Vol] 10 mg/dL Normal 7 - 18 [facility] Comment on above: Performed By: #### [id number] ## ##[facility],[address] [place] [address] 55682 CORONAVIRUS PCR - [place] on 3 SARS-CoV-2 (COVID-19) RNA Negative Normal NORMAL: NEGATIV E [facility] SAADIA+probe Ql (Unsp spec) Hos pital Comment on above: Performed By: #### [id number] ## ## [facility],[address] [place] [address] SEND TO ? YES Normal [facility] Comment on above: Result Comment: RESULTS FAXE D TO INFECTION CONTROL. SARS-CoV-2 THIS TEST IS BEING USED UNDE R THE FDA EUA PROCEDURE. THIS ASSAY HAS BEEN VALIDATED IN THE [facility] FOR USE WITH NASOPHARYNGEAL SPECIMENS IN [facility]. INTERPRETIVE DATA LABORATORY TEST RESULTS SHOU LD [...] WITH PUBLIC HEALTH AUTHORITIES. Performed By: #### [id number] ## ## [facility],[address] [place] [address] CT BRAIN W/O CONTRAST on 10-30-2022 CT BRAIN W/O CONTRAST [facility] Normal [address] [place] [id number] [place], [place] [address] Patient: EVER MCKEON Phone#: : 1970 Age: 52 Gender: F Pt. Type: ER Account: [id number] Location: [id number] Ordering: PAULO GARCIA Exam Date: 10/30/2022/18:38 Family Phys: Charge Code: [id number] Physician: [place]arton Order #: [id number] Dose#: [id number] PROCEDURE: CT BRAIN WITHOUT CONTRAST COMPARISON: [facility], CT, BRAIN W/O CON, 06/2022, 23:14. INDICATIONS: Altered mental status. TECHNIQUE: CT images were obtained without contrast hi saman. All CT scans at this facilit [...] Maria examination of blood, _BLOOD CULTURE_ Mem [facility] culture GO TO [employer] REPORTS AND ATTACHMENTS FOR SCANNED REPO RT 11/06/[email or web address] Comment on above: Performed By: #### [id number] ## ## [facility],[address] [facility] [address] Microscopic CULTURE BLOOD [DIANA] Normal [facility] examination of blood, _BLOOD CULTURE_ [facility] culture [facility] FOR SCANNED REPO RT 11/06/[email or web address].COMPLETE Comment on above: Performed By: #### [id number] ## ## [facility],[address] [facility] [address] DRUG SCREEN URINE MEDIC on 10-30-2022 AMPHETAMINES Negative Normal [facility] Comment on above: Performed By: #### [id number] ## ## [facility],[address] [place] [address] 47792 B-DIAZEPINES Negative [facility] Comment on above: Performed By: #### [id number] ## ## [facility],[address] [place] [address] 09196 BARBITURATES Negative [facility] Comment on above: Performed By: #### [id number] ## ## [facility],[address] [place] [address] 16846 COCAINE Negative [facility] Comment on above: Performed By: #### [id number] ## ## [facility],[address] [place] [address] 51432 DRUG SCREEN URINE MEDIC Normal [facility] Comment on above: Result Comment: DRUG SCREEN - URINE Performed By: #### [id number] ## ## [facility],[address] [facility] [address] METHADONE Negative [facility] Comment on above: Performed By: #### [id number] ## ## [facility],[address] [place] [address] 65375 OPIATES Negative [facility] Comment on above: Performed By: #### [id number] ## ## [facility],[address] [place] [address] 78804 PCP Negative Normal [facility] Comment on above: Performed By: #### [id number] ## ## [facility],[address] [place] [address] 09140 THC Negative Normal [facility] Comment on above: Result Comment: PATIENTS REC EIVING PROTON PUMP INHIBITORS MAY DEMONSTRATE FALSE POSITIVE THC/CANNABINOID RESULTS. AN ALTERNATIVE CONFIRMATORY METHOD SHOULD BE CONSIDERED TO VERIFY POSITIVE RESULTS. Performed By: #### [id number] ## ## [facility],[address] [place] [address] 46688 INFLUENZA VIRUS RAPID A/B on INFLUENZA VIRUS RAPID INFLUENZA A Normal Gigi oliver A/B POSITIVE [facility] al INFLUENZA B NEGATIVE INTERNAL NEG QC [...] BY Comment on above: Performed By: #### [id number] ## ## [facility],[address] [place] [address] 13795 LACTATE on 10-30-2022 Lactate [Moles/Vol] 1.0 mmol/L Normal 0.4 - 2.0 [facility] Comment on above: Performed By: #### [id number] ## ## [facility],[address] [place] [address] 06155 NT-proBNP on 10-30-2022 Natriuretic peptide B (Bld) 67 pg/mL Normal 0 - 125 [facility] [[facility]] [facility] Comment on above: Performed By: #### [id number] ## ##[facility],[address] [place] [address] 81148 TROPONIN I, HIGH SENSITIVITY on 023 HS TROPONIN 7.3 pg/mL Normal 0.0 - 51.4 [facility] Comment on above: Performed By: #### [id number] ## ## [facility],[address] [place] [address] 09956 URINALYSIS on 10-30-2022 Bilirubin Ql (U) Negative Normal NORMAL: NEGATIVE [facility] Comment on above: Performed By: #### [id number] ## ## [facility],[address] [place] [address] 05290 Clarity (U) clear Normal NORMAL: CLEAR [facility] Comment on above: Performed By: #### [id number] ## ## [facility],[address] [place] [address] 04333 Color (U) art Normal NORMAL: YELLOW [facility] Comment on above: Performed By: #### [id number] ## ## [facility],[address] [place] [address] 39849 Glucose Ql (U) NORM Normal NORMAL: NORMAL [facility] Comment on above: Performed By: #### [id number] ## ## [facility],[address] [place] [address] 74536 Hemoglobin Ql (U) Negative Normal NORMAL: NEGATIVE [facility] Comment on above: Performed By: #### [id number] ## ## [facility],[address] [place] [address] 70339 Ketone Negative Normal NORMAL: NEGATIVE [facility] Comment on above: Performed By: #### [id number] ## ## [facility],[address] [place] [address] 39703 Leukocytes Negative Normal NORMAL: NEGATIVE [facility] Comment on above: Performed By: #### [id number] ## ## [facility] Hospi tristin,[address] [facility] [address] Nitrite Ql (U) Negative Normal NORMAL: NEGATIVE [facility] Comment on above: Performed By: #### [id number] ## ## [facility] Hospi tristin,[address] [facility] [address] pH (U) 7 [pH] Normal NORMAL: 5.0-8.0 [facility] Comment on above: Performed By: #### [id number] ## ## [facility] Hospi tristin,[address] [facility] [address] Protein Ql (U) 15 Abnormal NORMAL: NEGATIVE [facility] Comment on above: Performed By: #### [id number] ## ## [facility] [facility] [address] Sp Trilla 1.005 Low NORMAL: 1.010-1.030 [facility] Comment on above: Performed By: #### [id number] ## ## [facility],[address] [place] [address] 78652 Specimen Type Void Normal [facility] Comment on above: Performed By: #### [id number] ## ## [facility],[address] [place] [address] 42417 Urinalysis dipstick W Reflex NOT INDICATED Normal [facility] Microscopic panel (U) Hospit al Comment on above: Performed By: #### [id number] ## ## [facility] Hospi tristin,1 [facility] [address] Urobilinog 1 Abnormal NORMAL: NORMAL [facility] Comment on above: Performed By: #### [id number] ## ## [facility] Hospi tristin,1 [facility] [address] Progress Note on 10-16-2022 Progress Note . Normal [facility] S ystem [facility] E [address] [facility] [address] Dept: [phone] Dept Visit type: Established patient Reason for Visit: Follow-up Assessment and Plan 1. Hepatic encephalopathy 2. Alcoholic cirrhosis, unspecified whether ascites pr esent (HCC) - Chronic, uncontrolled. Rec ommenrobbie continuing lactulose and scheduling her tests that were requested from [facility] discharge instruction s. Patient plans on establishing with a new PCP and offal trimmer that are closer to her new home in [place] because she has difficulty getting to [place]. Follow up in about 3 months (around 01/14/2023). Subjective Patient presents today for hospital follow up. According to patient she was admitted at [facility] 10/02- 10/07. Ran out of lactulose and [...] established with them due to moving to [facility] and not having a ride. She [...] Reviewed and Summarized Labs: Imaging/Testing: Tim Drew, LOSS PREVENTION COORDINATOR - EXCELLENCE CONSULTANT EMERGENCY REPORT on 10-09-2022 EMERGENCY REPORT [facility] Normal Gigi P [facility] EMERGENCY ROOM REPORT NAME ACCOUNT SEX AGE ADMIT DISCHARGE PT MED. RECORD# NUMBER DATE DATE TYPE LINDA, [id number] F 51 10/02/22 10/03/22 3 [facility] [id number] ROOM: ER DATE OF : 1970 DICTATING [...] acute S T segment changes are noted. [place] is approximately [address] scan of [...] the case with Dr. Melgar, our hospitalist manager digital ad operations but he felt that the patient should be transferred to a higher level of care. I did talk to [facility]. They presently h ave no beds right now. They can put us on a waiting list, which they did. I also spoke with [facility] and Dr. Garcia, the hospitalist manager digital ad [facility] the patie nt for admission to their stepdown unit with a monitored bed. They do not have a bed right now but they do anticipate having a bed later this morning. At this point, it looks like the patient will be admitted to [facility] once we obtain Page 1 of [...] will most likely admit the patient to [facility]. Please see the written document for final patient disposition. Dictated By: [place] DO 10/03/22 05:15 JOB #: [id number] Transcribed By: mike 10/04/22 07:48 Electronically signed by: E-Sign: Dr. [place] D.O. 10/09/22 06:47 Page 2 of 2 EVER MCKEON Emergency Room Report EMERGENCY REPORT [facility] Normal Gigi P [facility] EMERGENCY ROOM REPORT NAME ACCOUNT SEX AGE ADMIT DISCHARGE PT MED. RECORD# NUMBER DATE DATE TYPE LNIDA [id number] F 51 10/02/22 10/03/22 3 EVER [id number] ROOM: ER DATE OF : 1970 DICTATING [...] motor or sensory deficits are noted. Hand machine container washer is strong, symmetric. Skin is somewhat pale [...] Basophil, Absolute 0.0 10 3/mcL Normal 0.0-0.3 [facility] ([place]) Comment on above: Performed By: #### CMP, GFR, AMM, LAC, HEPAC #### [address] [address] Basophils/100 WBC (Bld) 0.8 % Normal 0.0-2.5 [facility] ([place]) Comment on above: Performed By: #### CMP, GFR, AMM, LAC, HEPAC #### [address] [address] Eosinophil, Absolute 0.4 10 3/mcL Normal 0.0-0.7 [facility] ([place]) Comment on above: Performed By: #### CMP, GFR, AMM, LAC, HEPAC #### [address] [address] Eosinophils/100 WBC (Bld) 9.6 % High 0.0-6.0 [facility] ([place]) Comment on above: Performed By: #### CMP, GFR, AMM, LAC, HEPAC #### [address] [address] Lymphocyte, Absolute 0.9 10 3/mcL Normal 0.9-4.3 [facility] ([place]) Comment on above: Performed By: #### CMP, GFR, AMM, LAC, HEPAC #### [address] [address] Lymphocytes/100 WBC (Bld) 22.9 % Normal 20.0-40.0 [facility] ([place]) Comment on above: Performed By: #### CMP, GFR, AMM, LAC, HEPAC #### [address] [address] Monocyte, Absolute 0.7 10 3/mcL Normal 0.1-1.4 [facility] ([place]) Comment on above: Performed By: #### CMP, GFR, AMM, LAC, HEPAC #### [address] [address] Monocytes/100 WBC (Bld) 16.4 % High 2.0-13.0 [facility] ([place]) Comment on above: Performed By: #### CMP, GFR, AMM, LAC, HEPAC #### [address] [address] Neutrophils/100 WBC (Bld) 50.3 % Normal 50.0-75.0 [facility] ([place] Comment on above: Performed By: #### CMP, GFR, AMM, LAC, HEPAC #### [address] [address] .GFR on 10-07-2022 GFR Non- >60 Normal [facility] ([place]) Comment on above: Result Comment: GFR Population mean for Afri can Berm[place]ian, Non- Americans Ages 20-29 = 116 mL/min/1.73 [...] #### CMP, GFR, AMM, LAC, HEPAC #### [address] [address] GFR >60 Normal [facility] ([place]) Comment on above: Result Comment: GFR Population mean for Afri can Berm[place]ian, Non- Americans Ages 20-29 = 116 mL/min/1.73 [...] #### CMP, GFR, AMM, LAC, HEPAC #### [address] [address] .NEUABS on 10-07-2022 Neutrophil, Absolute 2.0 10 3/mcL Low 2.3-8.1 [facility] ([place]) Comment on above: Performed By: #### CMP, GFR, AMM, LAC, HEPAC #### [address] [address] AMM on 10-07-2022 Ammonia 69 mcmol/l High 11-32 [facility] ([place] Comment on above: Result Comment: Specimen sli ghtly hemolyzed. Performed By: #### CMP, GFR, AMM, LAC, HEPAC #### [address] [address] CBC on 10-07-2022 Erythrocyte distribution width 18.1 % High 11.5-15.5 [facility] ([place] (RBC) [Ratio] Comment on above: Performed By: #### CMP, GFR, AMM, LAC, HEPAC #### [address] [address] Hematocrit (Bld) [Volume 29.5 % Low 34.0-46.0 [facility] ([place]) fraction] Comment on above: Performed By: #### CMP, GFR, AMM, LAC, HEPAC #### [address] [address] Hgb 9.3 G/dL Low 12.0-16.0 [facility] ([place] Comment on above: Performed By: #### CMP, GFR, AMM, LAC, HEPAC #### [address] [address] MCH (RBC) [Entitic mass] 23.2 pg Low 27.0-33.0 l [facility] ([place]) Comment on above: Performed By: #### CMP, GFR, AMM, LAC, HEPAC #### [place] [address] MCHC 31.5 G/dL Low 32.0-36.0 [facility] ([place]) Comment on above: Performed By: #### CMP, GFR, AMM, LAC, HEPAC #### [place] [address] MCV (RBC) [Entitic vol] 73.6 fL Low 80.0-99.0 [facility] ([place]) Comment on above: Performed By: #### CMP, GFR, AMM, LAC, HEPAC #### [place] [address] Platelet 82 10 3/mcL Low 150-450 [facility] ([place] Comment on above: Performed By: #### CMP, GFR, AMM, LAC, HEPAC #### [place] [address] Platelet mean volume (Bld) 9.1 fL Normal 6.6-10.5 [facility] ([place]) [Entitic vol] Comment on above: Performed By: #### CMP, GFR, AMM, LAC, HEPAC #### [place] [address] RBC 4.01 10 6/mcL Low 4.10-5.30 [facility] ([place] Comment on above: Performed By: #### CMP, GFR, AMM, LAC, HEPAC #### [place] [address] WBC 4.0 10 3/mcL Low 4.5-10.8 [facility] ([place] Comment on above: Performed By: #### CMP, GFR, AMM, LAC, HEPAC #### [place] [address] CMP on 10-07-2022 Albumin Level 3.4 G/dL Normal 3.2-4.8 [facility] ([place]) Comment on above: Performed By: #### CMP, GFR, AMM, LAC, HEPAC #### [facility] [address] [place], [place] [address] Albumin/Globulin [Mass ratio] 1.3 {ratio} Normal 0.9-1.6 [facility] ([place] Comment on above: Performed By: #### CMP, GFR, AMM, LAC, HEPAC #### [address] [address] ALP [Catalytic activity/Vol] 122 U/L Normal 38-126 [facility] ([place] Comment on above: Performed By: #### CMP, GFR, AMM, LAC, HEPAC #### [address] [address] ALT [Catalytic activity/Vol] 26 U/L Normal 10-49 [facility] ([place] Comment on above: Performed By: #### CMP, GFR, AMM, LAC, HEPAC #### [address] [address] AST [Catalytic activity/Vol] 56 U/L High 8-34 [facility] ([place] Comment on above: Performed By: #### CMP, GFR, AMM, LAC, HEPAC #### [address] [address] Bili Total 0.70 mg/dL Normal 0.20-1.20 [facility] ([place]) Comment on above: Result Comment: Use of this assay is not recommended for patients undergoing treatment with eltrombopag d ue to the potential for falsely elevated results. Performed By: #### CMP, GFR, AMM, LAC, HEPAC #### [place] [id number] BUN/Creatinine Ratio 16.4 ratio Normal 10.0-22.0 [facility] ([place] Comment on above: Performed By: #### CMP, GFR, AMM, LAC, HEPAC #### [address] [address] Calcium [Mass/Vol] 9.5 mg/dL Normal 8.7-10.4 [facility] ([place] Comment on above: Performed By: #### CMP, GFR, AMM, LAC, HEPAC #### [address] [address] Chloride [Moles/Vol] 110 mmol/L Normal 98-110 [facility] ([place] Comment on above: Performed By: #### CMP, GFR, AMM, LAC, HEPAC #### [address] [address] CO2 [Moles/Vol] 28 mmol/L Normal 22-32 [facility] ([place]) Comment on above: Performed By: #### CMP, GFR, AMM, LAC, HEPAC #### [address] [address] Creatinine [Mass/Vol] 0.61 mg/dL Normal 0.50-1.20 [facility] ([place]) Comment on above: Performed By: #### CMP, GFR, AMM, LAC, HEPAC #### [address] [address] Electrolyte Balance 7.0 mEq/L Normal 4.0-15.0 [facility] ([place] Comment on above: Performed By: #### CMP, GFR, AMM, LAC, HEPAC #### [address] [address] Globulin 2.6 G/dL Normal 1.5-3.8 [facility] ([place] Comment on above: Performed By: #### CMP, GFR, AMM, LAC, HEPAC #### [address] [address] Glucose [Mass/Vol] 81 mg/dL Normal 70-110 [facility] ([place] Comment on above: Performed By: #### CMP, GFR, AMM, LAC, HEPAC #### [address] [address] Potassium [Moles/Vol] 3.6 mmol/L Normal 3.5-5.0 [facility] ([place]) Comment on above: Performed By: #### CMP, GFR, AMM, LAC, HEPAC #### [address] [address] Sodium [Moles/Vol] 145 mmol/L Normal 136-145 [facility] ([place] Comment on above: Performed By: #### CMP, GFR, AMM, LAC, HEPAC #### [place] [id number] [place], [place] [id number] Total Protein 6.0 G/dL Normal 5.7-8.2 [facility] ([place] Comment on above: Result Comment: Note - New Reference Range in effect 20 Performed By: #### CMP, GFR, AMM, LAC, HEPAC #### [place] [id number] Urea nitrogen [Mass/Vol] 10.0 mg/dL Normal 8.0-22.0 [facility] ([place]) Comment on above: Performed By: #### CMP, GFR, AMM, LAC, HEPAC #### [place] [id number] ENDO on 10-07-2022 TGT Ab (IGA) <20.0 Normal <=20.0 [facility] ([place]) Comment on above: Result Comment: Effective : [...] used interchangeably. Performed By: #### LAC #### [place] [address] LABORATORY Ordered By: SYSTEM SYSTEM on 10-07-2022 [...] 10-07-2022 Magnesium [Mass/Vol] 2.0 mg/dL Normal 1.6-2.4 [facility] ([place] Comment on above: Performed By: #### CMP, GFR, AMM, LAC, HEPAC #### [place] [address] PRO on 10-07-2022 INR Coag (PPP) [Relative time] 1.3 {INR} Normal [facility] ([place] Comment on above: Result Comment: The [place] [employer] (CHEST, 1992, 102:312S-25S) recommended therapeutic rang e for oral anticoagulant therapy is: LOW RISK: Prophylaxis of starr ous thrombosis INR: 2.0-3.0 Treatment of pulmonary embol ism 2.0-3.0 Prevention of systemic embol ism 2.0-3.0 HIGH RISK: Mechanical prosth etic valves 2.5-3.5 Performed By: #### CMP, GFR, AMM, LAC, HEPAC #### [address] [address] PT Coag (PPP) [Time] 15.7 s High 9.0-14.9 [facility] ([place]) Comment on above: Result Comment: Effective , Protime results may be affected by some antibiotics (i.e. Ci profloxacin, Azithromycin, Bactrim) which may potentiate the act ion of oral anticoagulants, with further increases in Protime /INR. Performed By: #### CMP, GFR, AMM, LAC, HEPAC #### [address] [address] .Auto Diff on 10-06-2022 Basophil, Absolute 0.0 10 3/mcL Normal 0.0-0.3 [facility] ([place] Comment on above: Performed By: #### CMP, GFR, AMM, LAC, HEPAC #### [address] [address] Basophils/100 WBC (Bld) 1.1 % Normal 0.0-2.5 [facility] ([place] Comment on above: Performed By: #### CMP, GFR, AMM, LAC, HEPAC #### [address] [id number] Eosinophil, Absolute 0.3 10 3/mcL Normal 0.0-0.7 [facility] ([place] Comment on above: Performed By: #### CMP, GFR, AMM, LAC, HEPAC #### [address] [address] Eosinophils/100 WBC (Bld) 9.2 % High 0.0-6.0 [facility] ([place]) Comment on above: Performed By: #### CMP, GFR, AMM, LAC, HEPAC #### [address] [address] Lymphocyte, Absolute 0.7 10 3/mcL Low 0.9-4.3 [facility] ([place] Comment on above: Performed By: #### CMP, GFR, AMM, LAC, HEPAC #### [address] [address] Lymphocytes/100 WBC (Bld) 24.2 % Normal 20.0-40.0 [facility] ([place]) Comment on above: Performed By: #### CMP, GFR, AMM, LAC, HEPAC #### [address] [address] Monocyte, Absolute 0.5 10 3/mcL Normal 0.1-1.4 [facility] ([place] Comment on above: Performed By: #### CMP, GFR, AMM, LAC, HEPAC #### [address] [address] Monocytes/100 WBC (Bld) 15.9 % High 2.0-13.0 [facility] ([place]) Comment on above: Performed By: #### CMP, GFR, AMM, LAC, HEPAC #### [address] [address] Neutrophils/100 WBC (Bld) 49.6 % Low 50.0-75.0 [facility] ([place]) Comment on above: Performed By: #### CMP, GFR, AMM, LAC, HEPAC #### [address] [address] .GFR on 10-06-2022 GFR >60 Normal [facility] ([place]) Comment on above: Result Comment: GFR Population mean for Afri can [place], Non- Americans Ages 20-29 = 116 mL/min/1.73 [...] #### CMP, GFR, AMM, LAC, HEPAC #### [address] [address] GFR Non- >60 Normal [facility] ([place]) Comment on above: Result Comment: GFR Population mean for Afri can [place], Non- Americans Ages 20-29 = 116 mL/min/1.73 [...] #### CMP, GFR, AMM, LAC, HEPAC #### [address] [address] .MITOT on 10-06-2022 Mitochondrial Ab Titer Pos 320 or > Normal [facility] ([place]) Comment on above: Result Comment: An Anti-ora chondrial Antibody (AMA) titer of 1:160 or greater is seen in more than 90% of patients with Primary Biliary Cirrhosis (PBC). AMA may be seen in low titers in 25%-30% of patients with Chronic Active Hepatitis or Cryptogenic Cirrhosis. Performed By: #### LAC #### [address] [address] .NEUABS on 10-06-2022 Neutrophil, Absolute 1.5 10 3/mcL Low 2.3-8.1 [facility] ([place] Comment on above: Performed By: #### CMP, GFR, AMM, LAC, HEPAC #### [address] [address] AMM on 10-06-2022 Ammonia 217 mcmol/l High 11-32 [facility] ([place] Comment on above: Performed By: #### CMP, GFR, AMM, LAC, HEPAC #### [address] [address] CBC on 10-06-2022 Erythrocyte distribution width 18.2 % High 11.5-15.5 [facility] ([place]) (RBC) [Ratio] Comment on above: Performed By: #### CMP, GFR, AMM, LAC, HEPAC #### [place] [id number] Hematocrit (Bld) [Volume 28.1 % Low 34.0-46.0 [facility] ([place]) fraction] Comment on above: Performed By: #### CMP, GFR, AMM, LAC, HEPAC #### [place] [id number] Hgb 8.7 G/dL Low 12.0-16.0 [facility] ([place] Comment on above: Performed By: #### CMP, GFR, AMM, LAC, HEPAC #### [place] [id number] MCH (RBC) [Entitic mass] 22.8 pg Low 27.0-33.0 [facility] ([place]) Comment on above: Performed By: #### CMP, GFR, AMM, LAC, HEPAC #### [place] [id number] MCHC 31.0 G/dL Low 32.0-36.0 [facility] ([place]) Comment on above: Performed By: #### CMP, GFR, AMM, LAC, HEPAC #### [place] [id number] MCV (RBC) [Entitic vol] 73.7 fL Low 80.0-99.0 [facility] ([place]) Comment on above: Performed By: #### CMP, GFR, AMM, LAC, HEPAC #### [place] [id number] Platelet 68 10 3/mcL Low 150-450 [facility] ([place]) Comment on above: Performed By: #### CMP, GFR, AMM, LAC, HEPAC #### [place] [address] Platelet mean volume (Bld) 8.5 fL Normal 6.6-10.5 [facility] ([place]) [Entitic vol] Comment on above: Performed By: #### CMP, GFR, AMM, LAC, HEPAC #### [address] [address] RBC 3.81 10 6/mcL Low 4.10-5.30 [facility] ([place]) Comment on above: Performed By: #### CMP, GFR, AMM, LAC, HEPAC #### [address] [address] WBC 3.0 10 3/mcL Low 4.5-10.8 [facility] ([place] Comment on above: Performed By: #### CMP, GFR, AMM, LAC, HEPAC #### [address] [address] CMP on 10-06-2022 Albumin Level 3.5 G/dL Normal 3.2-4.8 [facility] ([place]) Comment on above: Performed By: #### CMP, GFR, AMM, LAC, HEPAC #### [address] [address] Albumin/Globulin [Mass ratio] 1.3 {ratio} Normal 0.9-1.6 [facility] ([place]) Comment on above: Performed By: #### CMP, GFR, AMM, LAC, HEPAC #### [address] [address] ALP [Catalytic activity/Vol] 124 U/L Normal 38-126 [facility] ([place] Comment on above: Performed By: #### CMP, GFR, AMM, LAC, HEPAC #### [address] [address] ALT [Catalytic activity/Vol] 22 U/L Normal 10-49 [facility] ([place] Comment on above: Performed By: #### CMP, GFR, AMM, LAC, HEPAC #### [address] [address] AST [Catalytic activity/Vol] 38 U/L High 8-34 [facility] ([place] Comment on above: Performed By: #### CMP, GFR, AMM, LAC, HEPAC #### [address] [address] Bili Total 0.70 mg/dL Normal 0.20-1.20 [facility] ([place]) Comment on above: Result Comment: Use of this assay is not recommended for patients undergoing treatment with eltrombopag d ue to the potential for falsely elevated results. Performed By: #### CMP, GFR, AMM, LAC, HEPAC #### [address] [address] BUN/Creatinine Ratio 17.5 ratio Normal 10.0-22.0 [facility] ([place] Comment on above: Performed By: #### CMP, GFR, AMM, LAC, HEPAC #### [place] [id number] Calcium [Mass/Vol] 9.3 mg/dL Normal 8.7-10.4 [facility] ([place] Comment on above: Performed By: #### CMP, GFR, AMM, LAC, HEPAC #### [place] [id number] Chloride [Moles/Vol] 111 mmol/L High 98-110 [facility] ([place] Comment on above: Performed By: #### CMP, GFR, AMM, LAC, HEPAC #### [address] [address] CO2 [Moles/Vol] 26 mmol/L Normal 22-32 [facility] ([place] Comment on above: Performed By: #### CMP, GFR, AMM, LAC, HEPAC #### [address] [address] Creatinine [Mass/Vol] 0.63 mg/dL Normal 0.50-1.20 [facility] ([place]) Comment on above: Performed By: #### CMP, GFR, AMM, LAC, HEPAC #### [address] [address] Electrolyte Balance 8.0 mEq/L Normal 4.0-15.0 [facility] ([place] Comment on above: Performed By: #### CMP, GFR, AMM, LAC, HEPAC #### [address] [address] Globulin 2.7 G/dL Normal 1.5-3.8 [facility] ([place] Comment on above: Performed By: #### CMP, GFR, AMM, LAC, HEPAC #### [address] [address] Glucose [Mass/Vol] 126 mg/dL High 70-110 [facility] ([place] Comment on above: Performed By: #### CMP, GFR, AMM, LAC, HEPAC #### [address] [address] Potassium [Moles/Vol] 3.9 mmol/L Normal 3.5-5.0 [facility] ([place]) Comment on above: Performed By: #### CMP, GFR, AMM, LAC, HEPAC #### [address] [address] Sodium [Moles/Vol] 145 mmol/L Normal 136-145 [facility] ([place] Comment on above: Performed By: #### CMP, GFR, AMM, LAC, HEPAC #### [place] [id number] Total Protein 6.2 G/dL Normal 5.7-8.2 [facility] ([place]) Comment on above: Result Comment: Note - New Reference Range in effect 20 Performed By: #### CMP, GFR, AMM, LAC, HEPAC #### [address] [address] Urea nitrogen [Mass/Vol] 11.0 mg/dL Normal 8.0-22.0 [facility] ([place]) Comment on above: Performed By: #### CMP, GFR, AMM, LAC, HEPAC #### [address] [address] LABORATORY Ordered By: SYSTEM SYSTEM on 10-06-2022 [...] 10-06-2022 Magnesium [Mass/Vol] 2.0 mg/dL Normal 1.6-2.4 [facility] ([place]) Comment on above: Performed By: #### CMP, GFR, AMM, LAC, HEPAC #### [address] [address] OCC (LAB) on 10-06-2022 Occult Blood Fecal Negative Normal Negative [facility] ([place]) Comment on above: Result Comment: This test ut ilizes the guaiac fecal blood method, which detects peroxidase activity (heme) indicating bleeding from stomach, small intestin e, or large intestine. If bleeding from either upper o r lower gastrointestinal tract is a clinical consider ation, the [facility] recommends the use of both t he guaiac fecal blood test and the Immunochemical fecal blo od test. Performed By: #### CMP, GFR, AMM, LAC, HEPAC #### [address] [address] .KASHIF on 2022 SELIN Pattern 1 Speckled Normal [facility] ([place] Comment on above: Result Comment: At [facility], an SELIN titer of less than 160 is not considered suggestive of sig nificant rheumatoid disease. If clinical suspicion is high, suggest repeat testing in 1-2 months. Performed By: #### LAC #### [address] [address] SELIN Titer 1 40 Normal [facility] ([place]) Comment on above: Result Comment: strong cytop lasmic (ora) Performed By: #### LAC #### [address] [address] .Auto Diff on 2022 Basophil, Absolute 0.0 10 3/mcL Normal 0.0-0.3 [facility] ([place] Comment on above: Performed By: #### CMP, GFR, AMM, LAC, HEPAC #### [address] [address] Basophils/100 WBC (Bld) 0.9 % Normal 0.0-2.5 [facility] ([place]) Comment on above: Performed By: #### CMP, GFR, AMM, LAC, HEPAC #### [address] [address] Eosinophil, Absolute 0.2 10 3/mcL Normal 0.0-0.7 [facility] ([place] Comment on above: Performed By: #### CMP, GFR, AMM, LAC, HEPAC #### [address] [address] Eosinophils/100 WBC (Bld) 5.5 % Normal 0.0-6.0 [facility] ([place]) Comment on above: Performed By: #### CMP, GFR, AMM, LAC, HEPAC #### [address] [address] Lymphocyte, Absolute 1.0 10 3/mcL Normal 0.9-4.3 [facility] ([place] Comment on above: Performed By: #### CMP, GFR, AMM, LAC, HEPAC #### [address] [address] Lymphocytes/100 WBC (Bld) 30.7 % Normal 20.0-40.0 [facility] ([place]) Comment on above: Performed By: #### CMP, GFR, AMM, LAC, HEPAC #### [address] [address] Monocyte, Absolute 0.4 10 3/mcL Normal 0.1-1.4 [facility] ([place] Comment on above: Performed By: #### CMP, GFR, AMM, LAC, HEPAC #### [address] [address] Monocytes/100 WBC (Bld) 13.8 % High 2.0-13.0 [facility] ([place] Comment on above: Performed By: #### CMP, GFR, AMM, LAC, HEPAC #### [address] [address] Neutrophils/100 WBC (Bld) 49.1 % Low 50.0-75.0 [facility] ([place]) Comment on above: Performed By: #### CMP, GFR, AMM, LAC, HEPAC #### [address] [address] .GFR on 2022 GFR >60 Normal [facility] ([place] Comment on above: Result Comment: GFR Population mean for Afri can [place], Non- Americans Ages 20-29 = 116 mL/min/1.73 [...] #### CMP, GFR, AMM, LAC, HEPAC #### [address] [address] GFR Non- >60 Normal [facility] ([place]) Comment on above: Result Comment: GFR Population mean for Afri can [place], Non- Americans Ages 20-29 = 116 mL/min/1.73 [...] #### CMP, GFR, AMM, LAC, HEPAC #### [address] [address] .NEUABS on 2022 Neutrophil, Absolute 1.6 10 3/mcL Low 2.3-8.1 [facility] ([place] Comment on above: Performed By: #### CMP, GFR, AMM, LAC, HEPAC #### [place] [id number] AMM on 2022 Ammonia 137 mcmol/l High 11-32 [facility] ([place] Comment on above: Performed By: #### CMP, GFR, AMM, LAC, HEPAC #### [place] [id number] SELIN on 2022 SELIN See Titer Normal Neg 40 [facility] ([place]) Comment on above: Result Comment: SELIN Screen a nd Titer methodology is an immunofluorescent technique utilizing Hep2 Substrate. Performed By: #### LAC #### [address] [address] CBC on 2022 Erythrocyte distribution width 17.9 % High 11.5-15.5 [facility] ([place] (RBC) [Ratio] Comment on above: Performed By: #### GFR, MG, PRO, CMP, AMM #### [address] [address] Hematocrit (Bld) [Volume 28.6 % Low 34.0-46.0 [facility] ([place]) fraction] Comment on above: Performed By: #### GFR, MG, PRO, CMP, AMM #### [address] [address] Hgb 9.0 G/dL Low 12.0-16.0 [facility] ([place] Comment on above: Performed By: #### GFR, MG, PRO, CMP, AMM #### [address] [address] MCH (RBC) [Entitic mass] 22.9 pg Low 27.0-33.0 [facility] ([place]) Comment on above: Performed By: #### GFR, MG, PRO, CMP, AMM #### [place] [address] MCHC 31.6 G/dL Low 32.0-36.0 [facility] ([place] Comment on above: Performed By: #### GFR, MG, PRO, CMP, AMM #### [place] [address] MCV (RBC) [Entitic vol] 72.6 fL Low 80.0-99.0 [facility] ([place] Comment on above: Performed By: #### GFR, MG, PRO, CMP, AMM #### [place] [address] Platelet 74 10 3/mcL Low 150-450 [facility] ([place] Comment on above: Performed By: #### GFR, MG, PRO, CMP, AMM #### [place] [address] Platelet mean volume (Bld) 8.3 fL Normal 6.6-10.5 [facility] ([place] [Entitic vol] Comment on above: Performed By: #### GFR, MG, PRO, CMP, AMM #### [place] [address] RBC 3.94 10 6/mcL Low 4.10-5.30 [facility] ([place] Comment on above: Performed By: #### GFR, MG, PRO, CMP, AMM #### [place] [address] WBC 3.2 10 3/mcL Low 4.5-10.8 [facility] ([place] Comment on above: Performed By: #### GFR, MG, PRO, CMP, AMM #### [place] [address] CMP on 2022 Albumin Level 3.5 G/dL Normal 3.2-4.8 [facility] ([place] Comment on above: Performed By: #### CMP, GFR, AMM, LAC, HEPAC #### [address] [address] Albumin/Globulin [Mass ratio] 1.2 {ratio} Normal 0.9-1.6 [facility] ([place] Comment on above: Performed By: #### CMP, GFR, AMM, LAC, HEPAC #### [address] [address] ALP [Catalytic activity/Vol] 117 U/L Normal 38-126 [facility] ([place] Comment on above: Performed By: #### CMP, GFR, AMM, LAC, HEPAC #### [place] [id number] ALT [Catalytic activity/Vol] 24 U/L Normal 10-49 [facility] ([place] Comment on above: Performed By: #### CMP, GFR, AMM, LAC, HEPAC #### [place] [id number] AST [Catalytic activity/Vol] 37 U/L High 8-34 [facility] ([place] Comment on above: Performed By: #### CMP, GFR, AMM, LAC, HEPAC #### [address] [address] Bili Total 1.00 mg/dL Normal 0.20-1.20 [facility] ([place] Comment on above: Result Comment: Use of this assay is not recommended for patients undergoing treatment with eltrombopag d ue to the potential for falsely elevated results. Performed By: #### CMP, GFR, AMM, LAC, HEPAC #### [place] [id number] BUN/Creatinine Ratio 29.0 ratio High 10.0-22.0 [facility] ([place] Comment on above: Performed By: #### CMP, GFR, AMM, LAC, HEPAC #### [place] [id number] Calcium [Mass/Vol] 9.4 mg/dL Normal 8.7-10.4 [facility] ([place] Comment on above: Performed By: #### CMP, GFR, AMM, LAC, HEPAC #### [address] [address] Chloride [Moles/Vol] 110 mmol/L Normal 98-110 [facility] ([place] Comment on above: Performed By: #### CMP, GFR, AMM, LAC, HEPAC #### [address] [address] CO2 [Moles/Vol] 24 mmol/L Normal 22-32 [facility] ([place] Comment on above: Performed By: #### CMP, GFR, AMM, LAC, HEPAC #### [address] [address] Creatinine [Mass/Vol] 0.62 mg/dL Normal 0.50-1.20 [facility] ([place]) Comment on above: Performed By: #### CMP, GFR, AMM, LAC, HEPAC #### [address] [address] Electrolyte Balance 11.0 mEq/L Normal 4.0-15.0 [facility] ([place] Comment on above: Performed By: #### CMP, GFR, AMM, LAC, HEPAC #### [address] [address] Globulin 2.8 G/dL Normal 1.5-3.8 [facility] ([place] Comment on above: Performed By: #### CMP, GFR, AMM, LAC, HEPAC #### [address] [address] Glucose [Mass/Vol] 113 mg/dL High 70-110 [facility] ([place] Comment on above: Performed By: #### CMP, GFR, AMM, LAC, HEPAC #### [address] [address] Potassium [Moles/Vol] 4.0 mmol/L Normal 3.5-5.0 [facility] ([place]) Comment on above: Performed By: #### CMP, GFR, AMM, LAC, HEPAC #### [place] [id number] [address] [place] [address] Sodium [Moles/Vol] 145 mmol/L Normal 136-145 [facility] ([place] Comment on above: Performed By: #### CMP, GFR, AMM, LAC, HEPAC #### [address] [address] Total Protein 6.3 G/dL Normal 5.7-8.2 [facility] ([place] Comment on above: Result Comment: Note - New Reference Range in effect 20 Performed By: #### CMP, GFR, AMM, LAC, HEPAC #### [address] [address] Urea nitrogen [Mass/Vol] 18.0 mg/dL Normal 8.0-22.0 [facility] ([place]) Comment on above: Performed By: #### CMP, GFR, AMM, LAC, HEPAC #### [address] [address] LABORATORY Ordered By: SYSTEM SYSTEM on 2022 [...] 2022 Magnesium [Mass/Vol] 2.1 mg/dL Normal 1.6-2.4 [facility] ([place] Comment on above: Performed By: #### CMP, GFR, AMM, LAC, HEPAC #### [address] [address] ORA on 2022 Mitochondrial Ab See Titer Normal Neg 20 [facility] ([place]) Comment on above: Result Comment: Mitochondria l Ab Screen and Titer methodology is an immunofluorescent technique utilizing MSK Substrate. Performed By: #### CMP, GFR, AMM, LAC, HEPAC #### [address] [address] PRO on 2022 INR Coag (PPP) [Relative time] 1.2 {INR} Normal [facility] ([place]) Comment on above: Result Comment: The [employer] [employer] (CHEST, 1992, [id number]) recommended therapeutic rang e for oral anticoagulant therapy is: LOW RISK: Prophylaxis of starr ous thrombosis INR: 2.0-3.0 Treatment of pulmonary embol ism 2.0-3.0 Prevention of systemic embol ism 2.0-3.0 HIGH RISK: Mechanical prosth etic valves 2.5-3.5 Performed By: #### CMP, GFR, AMM, LAC, HEPAC #### [address] [address] PT Coag (PPP) [Time] 14.5 s Normal 9.0-14.9 [facility] ([place]) Comment on above: Result Comment: Effective , Protime results may be affected by some antibiotics (i.e. Ci profloxacin, Azithromycin, Bactrim) which may potentiate the act ion of oral anticoagulants, with further increases in Protime /INR. Performed By: #### CMP, GFR, AMM, LAC, HEPAC #### [address] [address] SMUSC on 2022 Smooth Muscle Ab Neg 20 Normal Neg 20 [facility] ([place] Comment on above: Result Comment: Smooth Muscl e Ab Screen and Titer methodology is an immunofluorescent technique utilizing MSK Substrate. Performed By: #### CMP, GFR, AMM, LAC, HEPAC #### [address] [address] .Auto Diff on 10-04-2022 Basophil, Absolute 0.0 10 3/mcL Normal 0.0-0.3 [facility] ([place] Comment on above: Performed By: #### CMP, GFR, AMM, LAC, HEPAC #### [address] [address] Basophils/100 WBC (Bld) 1.1 % Normal 0.0-2.5 [facility] ([place]) Comment on above: Performed By: #### CMP, GFR, AMM, LAC, HEPAC #### [address] [address] Eosinophil, Absolute 0.3 10 3/mcL Normal 0.0-0.7 [facility] ([place] Comment on above: Performed By: #### CMP, GFR, AMM, LAC, HEPAC #### [address] [address] Eosinophils/100 WBC (Bld) 7.0 % High 0.0-6.0 [facility] ([place]) Comment on above: Performed By: #### CMP, GFR, AMM, LAC, HEPAC #### [address] [address] Lymphocyte, Absolute 1.3 10 3/mcL Normal 0.9-4.3 [facility] ([place] Comment on above: Performed By: #### CMP, GFR, AMM, LAC, HEPAC #### [address] [address] Lymphocytes/100 WBC (Bld) 32.4 % Normal 20.0-40.0 [facility] ([place]) Comment on above: Performed By: #### CMP, GFR, AMM, LAC, HEPAC #### [address] [address] Monocyte, Absolute 0.6 10 3/mcL Normal 0.1-1.4 [facility] ([place] Comment on above: Performed By: #### CMP, GFR, AMM, LAC, HEPAC #### [address] [address] Monocytes/100 WBC (Bld) 15.6 % High 2.0-13.0 [facility] ([place] Comment on above: Performed By: #### CMP, GFR, AMM, LAC, HEPAC #### [address] [address] Neutrophils/100 WBC (Bld) 43.9 % Low 50.0-75.0 [facility] ([place]) Comment on above: Performed By: #### CMP, GFR, AMM, LAC, HEPAC #### [address] [address] .GFR on 10-04-2022 GFR >60 Normal [facility] ([place] Comment on above: Result Comment: GFR Population mean for Afri can [place], Non- Americans Ages 20-29 = 116 mL/min/1.73 [...] #### CMP, GFR, AMM, LAC, HEPAC #### [address] [address] GFR Non- >60 Normal [facility] ([place]) Comment on above: Result Comment: GFR Population mean for Afri can [place], Non- Americans Ages 20-29 = 116 mL/min/1.73 [...] #### CMP, GFR, AMM, LAC, HEPAC #### [address] [address] .NEUABS on 10-04-2022 Neutrophil, Absolute 1.7 10 3/mcL Low 2.3-8.1 [facility] ([place] Comment on above: Performed By: #### CMP, GFR, AMM, LAC, HEPAC #### [address] [address] AMM on 10-04-2022 Ammonia 117 mcmol/l High [facility] ([place] Comment on above: Performed By: #### CMP, GFR, AMM, LAC, HEPAC #### [address] [address] CBC on 10-04-2022 Erythrocyte distribution width 18.2 % High 11.5-15.5 [facility] ([place] (RBC) [Ratio] Comment on above: Performed By: #### CMP, GFR, AMM, LAC, HEPAC #### [place] [id number] Hematocrit (Bld) [Volume 28.0 % Low 34.0-46.0 [facility] ([place]) fraction] Comment on above: Performed By: #### CMP, GFR, AMM, LAC, HEPAC #### [place] [id number] Hgb 8.9 G/dL Low 12.0-16.0 [facility] ([place] Comment on above: Performed By: #### CMP, GFR, AMM, LAC, HEPAC #### [address] [address] MCH (RBC) [Entitic mass] 23.0 pg Low 27.0-33.0 [facility] ([place]) Comment on above: Performed By: #### CMP, GFR, AMM, LAC, HEPAC #### [place] [address] MCHC 31.8 G/dL Low 32.0-36.0 [facility] ([place] Comment on above: Performed By: #### CMP, GFR, AMM, LAC, HEPAC #### [place] [address] MCV (RBC) [Entitic vol] 72.3 fL Low 80.0-99.0 [facility] ([place] Comment on above: Performed By: #### CMP, GFR, AMM, LAC, HEPAC #### [place] [address] Platelet 84 10 3/mcL Low 150-450 [facility] ([place] Comment on above: Performed By: #### CMP, GFR, AMM, LAC, HEPAC #### [place] [address] Platelet mean volume (Bld) 8.4 fL Normal 6.6-10.5 [facility] ([place] [Entitic vol] Comment on above: Performed By: #### CMP, GFR, AMM, LAC, HEPAC #### [place] [address] RBC 3.87 10 6/mcL Low 4.10-5.30 [facility] ([place] Comment on above: Performed By: #### CMP, GFR, AMM, LAC, HEPAC #### [place] [address] WBC 3.9 10 3/mcL Low 4.5-10.8 [facility] ([place] Comment on above: Performed By: #### CMP, GFR, AMM, LAC, HEPAC #### [place] [address] CMP on 10-04-2022 Albumin Level 2.9 G/dL Low 3.2-4.8 [facility] ([place] Comment on above: Performed By: #### CMP, GFR, AMM, LAC, HEPAC #### [address] [address] Albumin/Globulin [Mass ratio] 1.0 {ratio} Normal 0.9-1.6 [facility] ([place] Comment on above: Performed By: #### CMP, GFR, AMM, LAC, HEPAC #### [address] [address] ALP [Catalytic activity/Vol] 122 U/L Normal 38-126 [facility] ([place] Comment on above: Performed By: #### CMP, GFR, AMM, LAC, HEPAC #### [address] [address] ALT [Catalytic activity/Vol] 25 U/L Normal 10-49 [facility] ([place] Comment on above: Performed By: #### CMP, GFR, AMM, LAC, HEPAC #### [place] [id number] AST [Catalytic activity/Vol] 37 U/L High 8-34 [facility] ([place] Comment on above: Performed By: #### CMP, GFR, AMM, LAC, HEPAC #### [address] [address] Bili Total 1.10 mg/dL Normal 0.20-1.20 [facility] ([place] Comment on above: Result Comment: Use of this assay is not recommended for patients undergoing treatment with eltrombopag d ue to the potential for falsely elevated results. Performed By: #### CMP, GFR, AMM, LAC, HEPAC #### [address] [address] BUN/Creatinine Ratio 23.9 ratio High 10.0-22.0 [facility] ([place] Comment on above: Performed By: #### CMP, GFR, AMM, LAC, HEPAC #### [address] [address] Calcium [Mass/Vol] 9.0 mg/dL Normal 8.7-10.4 [facility] ([place]) Comment on above: Performed By: #### CMP, GFR, AMM, LAC, HEPAC #### [address] [address] Chloride [Moles/Vol] 113 mmol/L High 98-110 [facility] ([place] Comment on above: Performed By: #### CMP, GFR, AMM, LAC, HEPAC #### [address] [address] CO2 [Moles/Vol] 25 mmol/L Normal 22-32 [facility] ([place]) Comment on above: Performed By: #### CMP, GFR, AMM, LAC, HEPAC #### [address] [address] Creatinine [Mass/Vol] 0.67 mg/dL Normal 0.50-1.20 [facility] ([place] Comment on above: Performed By: #### CMP, GFR, AMM, LAC, HEPAC #### [address] [address] Electrolyte Balance 9.0 mEq/L Normal 4.0-15.0 [facility] ([place] Comment on above: Performed By: #### CMP, GFR, AMM, LAC, HEPAC #### [address] [address] Globulin 3.0 G/dL Normal 1.5-3.8 [facility] ([place] Comment on above: Performed By: #### CMP, GFR, AMM, LAC, HEPAC #### [address] [address] Glucose [Mass/Vol] 102 mg/dL Normal 70-110 [facility] ([place] Comment on above: Performed By: #### CMP, GFR, AMM, LAC, HEPAC #### [address] [address] Potassium [Moles/Vol] 3.9 mmol/L Normal 3.5-5.0 [facility] ([place] Comment on above: Performed By: #### CMP, GFR, AMM, LAC, HEPAC #### [address] [address] Sodium [Moles/Vol] 147 mmol/L High 136-145 [facility] ([place] Comment on above: Performed By: #### CMP, GFR, AMM, LAC, HEPAC #### [place] [id number] [place] [address] Total Protein 5.9 G/dL Normal 5.7-8.2 [facility] ([place]) Comment on above: Result Comment: Note - New Reference Range in effect 20 Performed By: #### CMP, GFR, AMM, LAC, HEPAC #### [facility] [address] [place] [address] Urea nitrogen [Mass/Vol] 16.0 mg/dL Normal 8.0-22.0 [facility] ([place]) Comment on above: Performed By: #### CMP, GFR, AMM, LAC, HEPAC #### [address] [address] LABORATORY Ordered By: Ysabel Soto on 10-04-2022 [...] Culture Urine No growth at 48 hours. [facility] Work Phone: UA on 10-04-2022 Color (U) Dark Yellow Normal [facility] ([place] Comment on above: Performed By: #### CMP, GFR, AMM, LAC, HEPAC #### [address] [address] Glucose (U) [Mass/Vol] Negative Normal Negative [facility] ([place]) Comment on above: Performed By: #### CMP, GFR, AMM, LAC, HEPAC #### [address] [address] Ketones Ql (U) Trace Normal Neg-Trace [facility] ([place]) Comment on above: Performed By: #### CMP, GFR, AMM, LAC, HEPAC #### [address] [address] UA Appear Clear Normal Clear [facility] ([place] Comment on above: Performed By: #### CMP, GFR, AMM, LAC, HEPAC #### [address] [address] UA Blood Negative Normal Neg-Trace [facility] ([place] Comment on above: Performed By: #### CMP, GFR, AMM, LAC, HEPAC #### [address] [address] UA Leuk Est Small Abnormal Negative [facility] ([place] Comment on above: Performed By: #### CMP, GFR, AMM, LAC, HEPAC #### [address] [address] UA Nitrite Negative Normal Negative [facility] ([place] Comment on above: Performed By: #### CMP, GFR, AMM, LAC, HEPAC #### [address] [address] UA pH 5.5 Normal 5.0 - 8.0 [facility] ([place] Comment on above: Performed By: #### CMP, GFR, AMM, LAC, HEPAC #### [address] [address] UA Protein Negative Normal Negative [facility] ([place] Comment on above: Performed By: #### CMP, GFR, AMM, LAC, HEPAC #### [address] [address] UA Spec Grav >=1.030 Abnormal 1.006-1.029 [facility] ([place] Comment on above: Performed By: #### CMP, GFR, AMM, LAC, HEPAC #### [address] [address] UA Specimen Type Void Normal [facility] ([place] Comment on above: Performed By: #### CMP, GFR, AMM, LAC, HEPAC #### [address] [address] UA Urobilinogen 2.0 E.U./dL Abnormal 0.2-1.0 [facility] ([place] Comment on above: Performed By: #### CMP, GFR, AMM, LAC, HEPAC #### [address] [address] Urobilinogen (U) [Mass/Vol] Negative Normal Neg-Trace [facility] ([place] Comment on above: Result Comment: Bilirubin co nfirmed by alternate method Performed By: #### CMP, GFR, AMM, LAC, HEPAC #### [address] [address] UAMIC on 10-04-2022 UA RBC Rare Normal 0-2 [facility] ([place] Comment on above: Performed By: #### CMP, GFR, AMM, LAC, HEPAC #### [address] [address] UA Squam Epithelial 3-5 Normal 0-20 [facility] ([place] Comment on above: Performed By: #### CMP, GFR, AMM, LAC, HEPAC #### [address] [address] UA Transitional Epithelial 0-2 Normal [facility] ([place] Comment on above: Performed By: #### CMP, GFR, AMM, LAC, HEPAC #### [address] [address] UA WBC 5-10 Abnormal 0-5 [facility] ([place] Comment on above: Performed By: #### CMP, GFR, AMM, LAC, HEPAC #### [address] [address] US ABDOMEN/ELASTOGRAPHY/DOPPLER ABDOMEN on 10-04-2022 US ABDOMEN/ELASTOGRAPHY/DOPPLER ORIGINAL Normal [facility] ABDOMEN EXAMINATION: [facility] ([place]) Hepatic elastography TECHNIQUE: 2D Shear Wave Elastography [...] 1.66-1.77 m/s (8.29 kPa - 9.40 kPa) [id number] risk of clinically significant liver fibrosis. (METAVIR [...] Basophil, Absolute 0.0 10 3/mcL Normal 0.0-0.3 [facility] ([place] Comment on above: Performed By: #### CMP, GFR, AMM, LAC, HEPAC #### [address] [address] Basophils/100 WBC (Bld) 0.8 % Normal 0.0-2.5 [facility] ([place] Comment on above: Performed By: #### CMP, GFR, AMM, LAC, HEPAC #### [address] [address] Eosinophil, Absolute 0.3 10 3/mcL Normal 0.0-0.7 [facility] ([place] Comment on above: Performed By: #### CMP, GFR, AMM, LAC, HEPAC #### [address] [address] Eosinophils/100 WBC (Bld) 5.6 % Normal 0.0-6.0 [facility] ([place]) Comment on above: Performed By: #### CMP, GFR, AMM, LAC, HEPAC #### [address] [address] Lymphocyte, Absolute 1.0 10 3/mcL Normal 0.9-4.3 [facility] ([place] Comment on above: Performed By: #### CMP, GFR, AMM, LAC, HEPAC #### [address] [address] Lymphocytes/100 WBC (Bld) 20.8 % Normal 20.0-40.0 [facility] ([place]) Comment on above: Performed By: #### CMP, GFR, AMM, LAC, HEPAC #### [address] [address] Monocyte, Absolute 0.6 10 3/mcL Normal 0.1-1.4 [facility] ([place] Comment on above: Performed By: #### CMP, GFR, AMM, LAC, HEPAC #### [address] [address] Monocytes/100 WBC (Bld) 12.6 % Normal 2.0-13.0 [facility] ([place] Comment on above: Performed By: #### CMP, GFR, AMM, LAC, HEPAC #### [address] [address] Neutrophils/100 WBC (Bld) 60.2 % Normal 50.0-75.0 [facility] ([place]) Comment on above: Performed By: #### CMP, GFR, AMM, LAC, HEPAC #### [address] [address] .GFR on 10-03-2022 GFR Non- >60 Normal [facility] ([place]) Comment on above: Result Comment: GFR Population mean for Afri can B[place]ian, Non- Americans Ages 20-29 = 116 mL/min/1.73 [...] #### CMP, GFR, AMM, LAC, HEPAC #### [address] [address] GFR >60 Normal [facility] ([place] Comment on above: Result Comment: GFR Population mean for Afri can [place]ian, Non- Americans Ages 20-29 = 116 mL/min/1.73 [...] #### CMP, GFR, AMM, LAC, HEPAC #### [place] [address] .NEUABS on 10-03-2022 Neutrophil, Absolute 3.0 10 3/mcL Normal 2.3-8.1 [facility] ([place] Comment on above: Performed By: #### CMP, GFR, AMM, LAC, HEPAC #### [address] [address] AAT on 10-03-2022 Alpha 1 Antitrypsin 150 mg/dL Normal 78-200 [facility] ([place] Comment on above: Result Comment: Note - New Reference Range in effect 20 Performed By: #### CMP, GFR, AMM, LAC, HEPAC #### [place] [id number] ACETAMINOPHEN on 10-03-2022 Acetaminophen [Mass/Vol] ug/mL Low 10.0 - 30.0 [facility] Comment on above: Performed By: #### [id number] ## ## [facility],[address] [place] [address] AFPS on 10-03-2022 AFP, Tumor Marker 3.3 ng/mL Normal 0.0-8.5 [facility] ([place]) Comment on above: Result Comment: Patient resu lts determined by assays using different manufacturers for methods may not be comparable. Performed By: #### CMP, GFR, AMM, LAC, HEPAC #### [address] [address] ALCOHOL-BLOOD MEDICAL on 10-03-2022 Ethanol [Mass/Vol] mg/dL Normal 0 - 50 [facility] Comment on above: Performed By: #### [id number] ## ## [facility],[address] [place] [address] AMM on 10-03-2022 Ammonia 65 mcmol/l High 11-32 [facility] ([place]) Comment on above: Performed By: #### CMP, GFR, AMM, LAC, HEPAC #### [place] [id number] AMMONIA on 10-03-2022 Ammonia (P) [Moles/Vol] 115.0 umol/L High 11.0 - 32.0 [facility] Comment on above: Performed By: #### [id number] ## ## [facility],[address] [place] [address] B12 on 10-03-2022 Cobalamin (Vitamin B12) 682 pg/mL Normal 211-911 [facility] ([place]) [Mass/Vol] Comment on above: Performed By: #### CMP, GFR, AMM, LAC, HEPAC #### [address] [address] CBC on 10-03-2022 Erythrocyte distribution width 18.2 % High 11.5-15.5 [facility] ([place]) (RBC) [Ratio] Comment on above: Performed By: #### CMP, GFR, AMM, LAC, HEPAC #### [facility] [address] [place] [address] Hematocrit (Bld) [Volume 32.0 % Low 34.0-46.0 [facility] ([place]) fraction] Comment on above: Performed By: #### CMP, GFR, AMM, LAC, HEPAC #### [place] [address] Hgb 10.1 G/dL Low 12.0-16.0 [facility] ([place] Comment on above: Performed By: #### CMP, GFR, AMM, LAC, HEPAC #### [place] [id number] MCH (RBC) [Entitic mass] 22.9 pg Low 27.0-33.0 [facility] ([place]) Comment on above: Performed By: #### CMP, GFR, AMM, LAC, HEPAC #### [place] [address] MCHC 31.5 G/dL Low 32.0-36.0 [facility] ([place] Comment on above: Performed By: #### CMP, GFR, AMM, LAC, HEPAC #### [place] [address] MCV (RBC) [Entitic vol] 72.5 fL Low 80.0-99.0 [facility] ([place] Comment on above: Performed By: #### CMP, GFR, AMM, LAC, HEPAC #### [place] [address] Platelet 103 10 3/mcL Low 150-450 [facility] ([place] Comment on above: Performed By: #### CMP, GFR, AMM, LAC, HEPAC #### [place] [address] Platelet mean volume (Bld) 8.6 fL Normal 6.6-10.5 [facility] ([place]) [Entitic vol] Comment on above: Performed By: #### CMP, GFR, AMM, LAC, HEPAC #### [place] [address] RBC 4.41 10 6/mcL Normal 4.10-5.30 [facility] ([place] Comment on above: Performed By: #### CMP, GFR, AMM, LAC, HEPAC #### [facility] [address] [place] [address] WBC 5.0 10 3/mcL Normal 4.5-10.8 [facility] ([place] Comment on above: Performed By: #### CMP, GFR, AMM, LAC, HEPAC #### [facility] [address] [place] [address] CBC + DIFF on 10-03-2022 Baso # 0.00 x10EE3/UL Normal 0.00 - 0.10 [facility] Comment on above: Performed By: #### [id number] ## ## [facility],[address] [place] [address] Basophils/100 WBC (Bld) 0.7 % Normal 0.0 - 2.0 [facility] Comment on above: Performed By: #### [id number] ## ## [facility],[address] [place] [address] CBC + DIFF Normal [facility] Comment on above: Result Comment: CBC-COMPLETE BLOOD COUNT Performed By: #### [id number] ## ## [facility],[address] [place] [address] EO # 0.20 x10EE3/UL Normal 0.00 - 0.50 [facility] Comment on above: Performed By: #### [id number] ## ## [facility],[address] [place] [address] Eosinophils/100 WBC (Bld) 4.7 % Normal 0.0 - 7.0 [facility] Comment on above: Performed By: #### [id number] ## ## [facility],[address] [place] [address] Erythrocyte distribution width 18.6 % High 12.0 - 15. 6 [facility] (RBC) [Ratio] [facility] Comment on above: Performed By: #### [id number] ## ## [facility],[address] [place] [address] Hematocrit (Bld) [Volume 31.5 % Low 34.0 - 46.0 [facility] Comment on above: Performed By: #### [id number] ## ## [facility],[address] [place] [address] Hemoglobin (Bld) [Mass/Vol] 9.6 g/dL Low 12.0 - 16.0 [facility] Comment on above: Performed By: #### [id number] ## ## [facility],[address] [place] [address] Lymph # 0.70 x10EE3/UL Low 0.80 - 2.80 [facility] Comment on above: Performed By: #### [id number] ## ## [facility],[address] [place] [address] Lymphocytes/100 WBC (Bld) 17.3 % Low 20.0 - 45.0 [facility] Comment on above: Performed By: #### [id number] ## ## [facility],[address] [place] [address] MANUAL DIFF N/A Normal [facility] Comment on above: Performed By: #### [id number] ## ## [facility],[address] [place] [address] MCH (RBC) [Entitic mass] 22 pg Low 27 - 33 [facility] Comment on above: Performed By: #### [id number] ## ## [facility],[address] [place] [address] MCHC 30 X10 3 Low 32 - 36 [facility] Comment on above: Performed By: #### [id number] ## ## [facility],[address] [place] [address] MCV (RBC) [Entitic vol] 74 fL Low 80 - 99 [facility] Comment on above: Performed By: #### [id number] ## ## [facility],[address] [place] [address] MICROCYTES 1+ Normal [facility] Comment on above: Result Comment: {CD] Performed By: #### [id number] ## ## [facility] tristin,981 [facility] [address] [place] # 0.50 x10EE3/UL Normal 0.20 - 1.00 [facility] Comment on above: Performed By: #### [id number] ## ## [facility],[address] [place] [address] MONOS % 13.2 % High 0.0 - 10.0 [facility] Comment on above: Performed By: #### [id number] ## ## [facility] [facility] [address] Morphology Giovanni (Bld) [Interp] SEE BELOW Normal [facility] Comment on above: Performed By: #### [id number] ## ## [facility]81 [facility] [address] Neut # 2.70 x10EE3/UL Normal 1.50 - 7.10 [facility] Comment on above: Performed By: #### [id number] ## ## [facility],[address] [place] [address] Neutrophils/100 WBC (Bld) 64.1 % Normal 46.0 - 76.0 [facility] Comment on above: Performed By: #### [id number] ## ## [facility] [facility] [address] PLATELET 99 x10EE3/UL Low 150 - 450 [facility] Comment on above: Performed By: #### [id number] ## ## [facility]81 [facility] [address] Platelet mean volume (Bld) 8.3 fL Normal 6.6 - 10.5 [facility] [[facility]] [facility] Comment on above: Result Comment: AUTOMATED DI FFERENTIAL Performed By: #### [id number] ## ## [facility],[address] [place] [address] RBC 4.28 x 10EE6/UL Normal 4.10 - 5.30 [facility] Comment on above: Performed By: #### [id number] ## ## [facility],[address] [place] [address] WBC 4.1 x 10EE3/UL Low 4.5 - 10.8 [facility] Comment on above: Performed By: #### [id number] ## ## [facility],[address] [place] [address] CERUL on 10-03-2022 Ceruloplasmin 26.0 mg/dL Normal 22.0-58.0 [facility] ([place] Comment on above: Performed By: #### CMP, GFR, AMM, LAC, HEPAC #### [place] [address] CHEST 1 VIEW on 10-03-[address] [facility] Normal [place] [address] Patient: EVER MCKEON Phone#: : [phone] Age: 51 Gender: F Pt. Type: ER Account: [id number] Location: [id number] Ordering: [place] Exam Date: 10/02/2022/23:20 Family Phys: Charge Code: 223336 Physician: [place] Order #: [id number] Dose#: PROCEDURE: X-RAY CHEST 1 VIEW COMPARISON: [...] 10-03-2022 Albumin Level 3.4 G/dL Normal 3.2-4.8 [facility] ([place] Comment on above: Performed By: #### CMP, GFR, AMM, LAC, HEPAC #### [address] [address] Albumin/Globulin [Mass ratio] 1.0 {ratio} Normal 0.9-1.6 [facility] ([place]) Comment on above: Performed By: #### CMP, GFR, AMM, LAC, HEPAC #### [address] [address] ALP [Catalytic activity/Vol] 147 U/L High 38-126 [facility] ([place] Comment on above: Performed By: #### CMP, GFR, AMM, LAC, HEPAC #### [address] [address] ALT [Catalytic activity/Vol] 29 U/L Normal 10-49 [facility] ([place]) Comment on above: Performed By: #### CMP, GFR, AMM, LAC, HEPAC #### [address] [address] AST [Catalytic activity/Vol] 44 U/L High 8-34 [facility] ([place] Comment on above: Performed By: #### CMP, GFR, AMM, LAC, HEPAC #### [address] [address] Bili Total 1.20 mg/dL Normal 0.20-1.20 [facility] ([place]) Comment on above: Result Comment: Use of this assay is not recommended for patients undergoing treatment with eltrombopag d ue to the potential for falsely elevated results. Performed By: #### CMP, GFR, AMM, LAC, HEPAC #### [address] [address] BUN/Creatinine Ratio 18.3 ratio Normal 10.0-22.0 [facility] ([place] Comment on above: Performed By: #### CMP, GFR, AMM, LAC, HEPAC #### [address] [address] Calcium [Mass/Vol] 9.5 mg/dL Normal 8.7-10.4 [facility] ([place] Comment on above: Performed By: #### CMP, GFR, AMM, LAC, HEPAC #### [address] [address] Chloride [Moles/Vol] 115 mmol/L High 98-110 [facility] ([place] Comment on above: Performed By: #### CMP, GFR, AMM, LAC, HEPAC #### [address] [address] CO2 [Moles/Vol] 23 mmol/L Normal 22-32 [facility] ([place] Comment on above: Performed By: #### CMP, GFR, AMM, LAC, HEPAC #### [address] [address] Creatinine [Mass/Vol] 0.60 mg/dL Normal 0.50-1.20 [facility] ([place] Comment on above: Performed By: #### CMP, GFR, AMM, LAC, HEPAC #### [address] [address] Electrolyte Balance 9.0 mEq/L Normal 4.0-15.0 [facility] ([place] Comment on above: Performed By: #### CMP, GFR, AMM, LAC, HEPAC #### [address] [address] Globulin 3.4 G/dL Normal 1.5-3.8 [facility] ([place] Comment on above: Performed By: #### CMP, GFR, AMM, LAC, HEPAC #### [address] [address] Glucose [Mass/Vol] 104 mg/dL Normal 70-110 [facility] ([place] Comment on above: Performed By: #### CMP, GFR, AMM, LAC, HEPAC #### [address] [address] Potassium [Moles/Vol] 3.7 mmol/L Normal 3.5-5.0 [facility] ([place] Comment on above: Performed By: #### CMP, GFR, AMM, LAC, HEPAC #### [address] [address] Sodium [Moles/Vol] 147 mmol/L High 136-145 [facility] ([place] Comment on above: Performed By: #### CMP, GFR, AMM, LAC, HEPAC #### [address] [address] Total Protein 6.8 G/dL Normal 5.7-8.2 [facility] ([place] Comment on above: Result Comment: Note - New Reference Range in effect 20 Performed By: #### CMP, GFR, AMM, LAC, HEPAC #### [address] [address] Urea nitrogen [Mass/Vol] 11.0 mg/dL Normal 8.0-22.0 [facility] ([place]) Comment on above: Performed By: #### CMP, GFR, AMM, LAC, HEPAC #### [address] [address] CMP with eGFR on 10-03-2022 AGE 51 years Normal [facility] Comment on above: Performed By: #### [id number] ## ## [facility],[address] [place] [address] Albumin [Mass/Vol] 3.3 g/dL Low 3.4 - 5.0 [facility] Comment on above: Performed By: #### [id number] ## ## [facility],[address] [place] [address] Albumin/Globulin [Mass ratio] 0.9 {ratio} Normal 0.9 - 1.6 [facility] Comment on above: Performed By: #### [id number] ## ## [facility] tr[place],981 [facility] [address] ALK PHOS 189 U/L High 46 - 116 [facility] Comment on above: Performed By: #### [id number] ## ## [facility] [facility] [address] ALT [Catalytic activity/Vol] 31 U/L Normal 14 - 59 [facility] Comment on above: Performed By: #### [id number] ## ## [facility],[address] [place] [id number] Anion gap [Moles/Vol] 12 mmol/L Normal 10 - 20 [facility] Comment on above: Performed By: #### [id number] ## ## [facility],[address] [place] [address] AST [Catalytic activity/Vol] 38 U/L Normal 13 - 39 [facility] Comment on above: Performed By: #### [id number] ## ## [facility]81 [facility] [address] B/C RATIO 12 ratio Normal 0 - 30 [facility] Comment on above: Performed By: #### [id number] ## ## [facility]81 [facility] [address] Bilirubin [Mass/Vol] 0.7 mg/dL Normal 0.2 - 1.0 [facility] Comment on above: Performed By: #### [id number] ## ## [facility]81 [facility] [address] Calcium [Mass/Vol] 8.9 mg/dL Normal 8.5 - 10.1 [facility] Comment on above: Performed By: #### [id number] ## ## [facility]81 [facility] [address] Chloride [Moles/Vol] 113 mmol/L High 98 - 107 [facility] Comment on above: Performed By: #### [id number] ## ## [facility],[address] [place] [address] CMP with eGFR Normal [facility] Comment on above: Result Comment: COMPREHENSIV E METABOLIC PANEL Performed By: #### [id number] ## ## [facility],[address] [place] [address] CO2 [Moles/Vol] 23.3 mmol/L Normal 21.0 - 32.0 [facility] Comment on above: Performed By: #### [id number] ## ## [facility],[address] [place] [address] Creatinine [Mass/Vol] 0.84 mg/dL Normal 0.55 - 1.02 [facility] Comment on above: Performed By: #### [id number] ## ## [facility],[address] [place] [address] GFR/1.73 sq M.predicted mL/min/{1.73_m2} Normal 60 - 999 [facility] among non-blacks MDRD Hospit al (S/P/Bld) [Vol rate/Area] Comment on above: Performed By: #### [id number] ## ## [facility],[address] [place] [address] Result Comment: ACCORDING TO THE NATIONAL KIDNEY [...] g/dL Normal 1.5 - 3.8 [facility] Comment on above: Performed By: #### [id number] ## ## [facility],[address] [place] [address]97 Glucose [Mass/Vol] 203 mg/dL High 74 - 106 [facility] Comment on above: Performed By: #### [id number] ## ## [facility],[address] [place] [address] 70045 Potassium [Moles/Vol] 3.5 mmol/L Normal 3.5 - 5.1 [facility] Comment on above: Performed By: #### [id number] ## ## [facility],[address] [place], [place] [id number] Protein [Mass/Vol] 6.9 g/dL Normal 6.4 - 8.2 [facility] Comment on above: Performed By: #### [id number] ## ## [facility],[address] [place] [address] Sodium [Moles/Vol] 145 mmol/L Normal 136 - 145 [facility] Comment on above: Performed By: #### [id number] ## ## [facility],[address] [place] [address] Urea nitrogen [Mass/Vol] 10 mg/dL Normal 7 - 18 [facility] Comment on above: Performed By: #### [id number] ## ## [facility],[address] [place] [address] CORONAVIRUS (SARS) ANTIGEN TEST on 09-24 EXTERNAL QC DONE? YES Normal [facility] Comment on above: Performed By: #### [id number] ## ## [facility],[address] [place] [address] INTERNAL CONTROL PASS Normal [facility] Comment on above: Performed By: #### [id number] ## ## [facility],[address] [place], [place] [id number] SARS ANTIGEN Negative Normal NORMAL: NEGATIVE [facility] Comment on above: Performed By: #### [id number] ## ## [facility],[address] [place], [place] [id number] SEND TO ? NO Normal [facility] Comment on above: Result Comment: SARS-CoV-2 THIS TEST IS BEING USED UNDE R THE FDA EUA PROCEDURE. THIS ASSAY HAS BEEN VALIDATED AT [facility] FOR USE WITH NASAL AND NASOPHARYNGEAL SWAB [...] WITH PUBLIC HEALTH AUTHORITIES. Performed By: #### [id number] ## ## [facility],[address] [place] [address] CT ABDOMEN/PELVIS WO on 10-03-2022 CT ABDOMEN/PELVIS WO [facility] Normal [place] [address] Patient: EVER MCKENO Phone#: : 1970 Age: 51 Gender: F Pt. Type: ER Account: [id number] Location: 052 Ordering: [place] Exam Date: 10/03/2022/3:22 Family Phys: Charge Code: 310091 Physician: Wharton Order #: [id number] Dose#: 26.00 PROCEDURE: CT ABDOMEN/PELVIS WITHOUT CONTRAST [...] 51 Gender: F Pt. Type: ER Account: [id number] Location: 052 Ordering: [place] Exam Date: 10/03/2022/3:22 Family Phys: Charge Code: 097601 Physician: Wharton Order #: [id number] Dose#: 26.00 LUNG BASES: Normal. No visible pulmonary or pleural di sease. OTHER: Negative. CONCLUSION: 1. Splenomegaly. 2. Probable cirrhotic changes the liver. Dictated by: Danette Welsh MD on 10/04/2022 at 12:26 Approved by: Danette Welsh MD on 10/04/2022 at 12:31 CT BRAIN W/O CONTRAST on 10-03-2022 CT BRAIN W/O CONTRAST [facility] Normal [address] [place] [address] Patient: EVER MCKEON Phone#: : 1970 Age: 51 Gender: F Pt. Type: ER Account: [id number] Location: [facility] Ordering: [place] Exam Date: 10/02/2022/23:14 Family Phys: Charge Code: 684105 Physician: Wharton Order #: [id number] Dose#: 52.30 PROCEDURE: CT BRAIN WITHOUT CONTRAST COMPARISON: None. INDICATIONS: Altered mental status. TECHNIQUE: CT images were obtained without contrast [facility]. All CT scans at this facilit y [...] 10-03-2022 Microscopic CULTURE BLOOD [DIANA] Normal Gigi Pomerewv examination of blood, _BLOOD CULTURE_ [facility] culture [facility] FOR SCANNED REPO RT 10/09/22.1520.TLJ.COMPLETE Comment on above: Performed By: #### [id number] ## ## [facility],[address] [place] [address] Microscopic CULTURE BLOOD [DIANA] Normal Gigi Pomerewv examination of blood, _BLOOD CULTURE_ [facility] culture [facility] AND ATTACH[facility] FOR SCANNED REPO RT 10/09/22.1523.TLJ.COMPLETE Comment on above: Performed By: #### [id number] ## ## [facility],[address] [place] [address] FERR on 10-03-2022 Ferritin [Mass/Vol] 6.3 ng/mL Low 8.0-252.0 [facility] ([place] Comment on above: Performed By: #### CMP, GFR, AMM, LAC, HEPAC #### [address] [address] FES on 10-03-2022 Iron [Mass/Vol] 34 ug/dL Low 50-170 [facility] ([place]) Comment on above: Performed By: #### CMP, GFR, AMM, LAC, HEPAC #### [address] [address] Iron Sat 9 % Normal [facility] ([place] Comment on above: Performed By: #### CMP, GFR, AMM, LAC, HEPAC #### [address] [address] TIBC 397 mcg/dL Normal 250-500 [facility] ([place] Comment on above: Performed By: #### CMP, GFR, AMM, LAC, HEPAC #### [address] [address] FOL on 10-03-2022 Folate 20.61 ng/mL Normal 5.38-24.00 [facility] ([place] Comment on above: Performed By: #### CMP, GFR, AMM, LAC, HEPAC #### [address] [address] HEPAC on 10-03-2022 Hep A IgM Ab Non-Reactive Normal Non-Reactive [facility] ([place] Comment on above: Performed By: #### CMP, GFR, AMM, LAC, HEPAC #### [place] [id number] Hep A IgM Ab Int Normal [facility] ([place] Comment on above: Result Comment: No serologic al evidence of a current Hepatitis A infection. See Interp Performed By: #### CMP, GFR, AMM, LAC, HEPAC #### [place] [id number] Hep B Core IgM Ab Non-Reactive Normal Non-Reactive [facility] ([place] Comment on above: Performed By: #### CMP, GFR, AMM, LAC, HEPAC #### [place] [id number] Hep B Core IgM Ab Int [facility] ([place] Comment on above: Result Comment: Samples with a value < 0.80 Index are considered nonreactive (negative) for IgM antibodies to hepatitis B core antigen. See Interp Performed By: #### CMP, GFR, AMM, LAC, HEPAC #### [place] [id number] Hep C Ab Non-Reactive Normal Non-Reactive [facility] ([place] Comment on above: Performed By: #### CMP, GFR, AMM, LAC, HEPAC #### [place] [id number] Hep C Ab Int [facility] ([place] Comment on above: Result Comment: Nonreactive: Samples with a value < 0.80 are considered nonreactive (negative) for antibodies to HCV. A negative test result does not exclude the possibility of exposure to or infection with HCV. HCV antibodies may be undetectable in some stages of the infection and in some clinical conditions. See Interp Performed By: #### CMP, GFR, AMM, LAC, HEPAC #### [address] [address] Hep A IgM Ab Non-Reactive Normal Non-Reactive [facility] ([place] Comment on above: Performed By: #### CMP, GFR, AMM, LAC, HEPAC #### [address] [address] Hep A IgM Ab Int Normal [facility] ([place] Comment on above: Result Comment: No serologic al evidence of a current Hepatitis A infection. See Interp Performed By: #### CMP, GFR, AMM, LAC, HEPAC #### [address] [address] Hep B Core IgM Ab Non-Reactive Normal Non-Reactive [facility] ([place] Comment on above: Performed By: #### CMP, GFR, AMM, LAC, HEPAC #### [address] [address] Hep B Core IgM Ab Int [facility] ([place] Comment on above: Result Comment: Samples with a value < 0.80 Index are considered nonreactive (negative) for IgM antibodies to hepatitis B core antigen. See Interp Performed By: #### CMP, GFR, AMM, LAC, HEPAC #### [place] [id number] Hep C Ab Non-Reactive Normal Non-Reactive [facility] ([place] Comment on above: Performed By: #### CMP, GFR, AMM, LAC, HEPAC #### [place] [id number] Hep C Ab Int [facility] ([place] Comment on above: Result Comment: Nonreactive: Samples with a value < 0.80 are considered nonreactive (negative) for antibodies to HCV. A negative test result does not exclude the possibility of exposure to or infection with HCV. HCV antibodies may be undetectable in some stages of the infection and in some clinical conditions. See Interp Performed By: #### CMP, GFR, AMM, LAC, HEPAC #### [address] [address] Hep B Surf Ag Non-Reactive Normal Non-Reactive [facility] ([place] Comment on above: Performed By: #### CMP, GFR, AMM, LAC, HEPAC #### [facility] [address] [place] [address] Hep B Surf Ag Non-Reactive Normal Non-Reactive [facility] ([place] Comment on above: Performed By: #### CMP, GFR, AMM, LAC, HEPAC #### [facility] [address] [place] [address] IGA on 10-03-2022 IgA [Mass/Vol] 269 mg/dL Normal 40-350 [facility] ([place] Comment on above: Result Comment: Note - New Reference Range in effect 20 Performed By: #### CMP, GFR, AMM, LAC, HEPAC #### [address] [address] LABORATORY Ordered By: Greg Ely on 10-03-2022 Lactate [Moles/Vol] 1.8 mmol/L Invalid Interpretation 0.2 - 2.0 m mol/L Auto Chem Code SS LABORATORY Ordered By: Greg Champagne on 10-03-2022 Lactate [Moles/Vol] 2.1 mmol/L Invalid Interpretation 0.2 - 2.0 m mol/L AH Auto Chem Code SS LABORATORY Ordered By: [employer] on 10-03-2022 Phosphate [Mass/Vol] 3.3 mg/dL Invalid [...] SS Comment on above: Result Comment: At [place], an SELIN titer of less than 160 [...] Lactic Acid Lvl 1.8 mmol/L Normal 0.2-2.0 [facility] ([place]) Comment on above: Order Comment: Ordered carissa carreno to Lactic Acid result greater than or equal to 2.0 Performed By: #### LAC #### [facility] [address] [place] [address] Lactic Acid Lvl 2.1 mmol/L High 0.2-2.0 [facility] ([place]) Comment on above: Performed By: #### CMP, GFR, AMM, LAC, HEPAC #### [address] [address] LACTATE on 10-03-2022 Lactate [Moles/Vol] 1.5 mmol/L Normal 0.4 - 2.0 [facility] Comment on above: Performed By: #### [id number] ## ## [facility],[address] [place] [address] Lactate [Moles/Vol] 3.0 mmol/L High 0.4 - 2.0 [facility] Comment on above: Result Comment: LACTATE 3 HR NOTIFIED TO: _PEYTON 10/03/22.0035.AEL. . . LACTATE 3 HR NOTIFIED BY: _A EL 10/03/22.0035.AEL. . . Performed By: #### [id number] ## ##[facility],[address] [place] [address] Laboratory - Microbiology and Antimicrob ial susceptibility [...] 10-03-2022 Magnesium [Mass/Vol] 1.9 mg/dL Normal 1.6-2.4 [facility] ([place] Comment on above: Performed By: #### CMP, GFR, AMM, LAC, HEPAC #### [place] [address] NT-proBNP on 10-03-2022 Natriuretic peptide B (Bld) 19 pg/mL Normal 0 - 125 [facility] [Mass/Vol] [facility] Comment on above: Performed By: #### [id number] ## ##[facility],[address] [place] [address] PHOS on 10-03-2022 Phosphate [Mass/Vol] 3.3 mg/dL Normal 2.4-5.1 [facility] ([place] Comment on above: Result Comment: Note - New Reference Range in effect 20 Performed By: #### CMP, GFR, AMM, LAC, HEPAC #### [place] [address] PRO on 10-03-2022 INR Coag (PPP) [Relative time] 1.2 {INR} Normal [facility] ([place]) Comment on above: Result Comment: The [place] [employer] (CHEST, 1992, 102:312S-25S) recommended therapeutic rang e for oral anticoagulant therapy is: LOW RISK: Prophylaxis of starr ous thrombosis INR: 2.0-3.0 Treatment of pulmonary embol ism 2.0-3.0 Prevention of systemic embol ism 2.0-3.0 HIGH RISK: Mechanical prosth etic valves 2.5-3.5 Performed By: #### CMP, GFR, AMM, LAC, HEPAC #### [address] [address] PT Coag (PPP) [Time] 14.1 s Normal 9.0-14.9 [facility] ([place]) Comment on above: Result Comment: Effective , Protime results may be affected by some antibiotics (i.e. Ci profloxacin, Azithromycin, Bactrim) which may potentiate the act ion of oral anticoagulants, with further increases in Protime /INR. Performed By: #### CMP, GFR, AMM, LAC, HEPAC #### [place] [id number] [place] [address] SALICYLATE on 10-03-2022 SALICYLATE 0.3 mg/dl Low 2.8 - 20.0 [facility] Comment on above: Result Comment: *PATIENTS TR EATED WITH SULFASALAZINE MAY GENERATE A FALSE HIGH RESULT FOR SALICYLATE. *PATIENTS TREATED WITH SULFA PYRIDINE MAY GENERATE A FALSE LOW RESULT FOR SALICYLATE. Performed By: #### [id number] ## ## [facility],[address] [place] [address] TROPONIN I, HIGH SENSITIVITY on 022 HS TROPONIN 6.5 pg/mL Normal 0.0 - 51.4 [facility] Comment on above: Performed By: #### [id number] ## ## [facility],[address] [place] [address] XR CHEST 1 VIEW on 10-03-2022 XR CHEST 1 VIEW ORIGINAL Normal [facility] EXAMINATION: ([place]) ONE XRAY VIEW OF THE [...] CR Chest Portable Patient Name: EVER MCKEON [facility] Diagnostic Radiology ACCESSION EXAM DATE/TIME PROCEDURE ORDERING PROVIDER [phone] 08/11/2022 10:55 EDT CR Chest Portable Crow OGDEN MD, DONTE CPT code 89607 Reason For Exam (CR Chest Portable) cough [...] Time PCR (Cepheid) Test Performed by [facility] - [facility], [address] Work Phone: Group A Strep Screen by PCR on 08-11-20 Group A Strep Screen by Group A Strep Screen by PCR --> Status: F N ormal [facility] PCR NOT Detected Expected Result: Not Detected Methodology - Real Time PCR (Cepheid) Expected Result: Not Detected Methodology - Real Time PCR (Cepheid) Comment on above: Performed By: #### [facility] ### # [place] [id number] [place] [address] XR CHEST PORTABLE on 08-11-2022 Patient Name: EVER MCKEON Diagnostic Radiology ACCESSION EXAM DATE/TIME PROCEDURE ORDERING PROVIDER [phone] 08/11/2022 10:55 EDT CR Chest Portable MD CARUSO VIJAY CPT code 99123 Reason For Exam (CR Chest Portable) cough [...] Time: 08/11/2022 11:08 Owen Culver MD - [facility] Patient Name: EVER MCKEON Work Phone: Diagnostic Radiology ACCESSION EXAM DATE/TIME PROCEDURE ORDERING PROVIDER [phone] 08/11/2022 10:55 EDT CR Chest Portable Crow OGDEN MD, VIJAY CPT code 37695 Reason For Exam (CR Chest Portable) cough [...] Phone: CNDS on 06-15-2022 CNDS HNO ID: [id number] Normal [place] Author: MD Lakhwinder Gunn Service: [facility] Author Type: Resident Center Type: Discharge Summary Filed: 06/15/2022 4:40 PM Note Text: Attestation signed by Calvin Urban MD at 6:47 PM Attending Note I personally saw and examined the patient on 06/15/22 . I reviewed the resident's note. I agree with the resident's assessmen t and plan unless otherwise noted. Signature: Calvin Urban MD Attending, [facility] edicine Date: 06/15/2022 Time: 6:47 PM DISCHARGE [...] anxiety, depression, insomnia, seasonal allergies presented to [facility] for evaluation of strokelike symptoms. CT brain [...] derlying encephalopathy. [facility]. [...] 06-15-2022 Albumin [Mass/Vol] 3.2 g/dL Low 3.9-4.9 [facility] Comment on above: Order Comment: Specimen Type : BLOOD SPECIMEN Ordering Facility: [facility] Address: [address] [place] [address] Performed By: #### 3298-7, 4 024-6, 5643-2 #### [facility] [id number] 1 [place] [address] [place] ALP [Catalytic activity/Vol] 163 U/L High 34-123 [facility] Comment on above: Order Comment: Specimen Type : BLOOD SPECIMEN Ordering Facility: [facility] Address: [address] [place] [address] Performed By: #### 3298-7, 4 024-6, 5643-2 #### [facility] CLIA [id number] [address] ALT With P-5'-P [Catalytic 28 U/L Normal 7-38 [facility] activity/Vol] Comment on above: Order Comment: Specimen Type : BLOOD SPECIMEN Ordering Facility: [facility] Address: [address] [place] [address] Performed By: #### 3298-7, 4 024-6, 5643-2 #### [facility] CLIA [id number] [address] Anion gap [Moles/Vol] 7 mmol/L Low 9-18 [facility] Comment on above: Order Comment: Specimen Type : BLOOD SPECIMEN Ordering Facility: [facility] Address: [facility] [address] [place] [address] Performed By: #### 3298-7, 4 024-6, 5643-2 #### [facility] CLIA [id number] [address] AST With P-5'-P [Catalytic 39 U/L High 13-35 A [facility] activity/Vol] Comment on above: Order Comment: Specimen Type : BLOOD SPECIMEN Ordering Facility: [facility] Address: [address] [place] [address] Performed By: #### 3298-7, 4 024-6, 5643-2 #### [facility] CLIA [id number] [address] Bilirubin [Mass/Vol] 0.3 mg/dL Normal 0.2-1.3 [facility] Comment on above: Order Comment: Specimen Type : BLOOD SPECIMEN Ordering Facility: [facility] Address: [address] [place] [address] Performed By: #### 3298-7, 4 024-6, 5643-2 #### [facility] CLIA [id number] 1 [place] [address] [place] Calcium [Mass/Vol] 8.5 mg/dL Normal 8.5-10.2 [facility] Comment on above: Order Comment: Specimen Type : BLOOD SPECIMEN Ordering Facility: [facility] Address: [address] [place] [address] Performed By: #### 3298-7, 4 024-6, 5643-2 #### [facility] CLIA [id number] [address] [place] [address] [place] Chloride [Moles/Vol] 108 mmol/L High 97-105 [facility] Comment on above: Order Comment: Specimen Type : BLOOD SPECIMEN Ordering Facility: [facility] Address: [address] [place] [address] Performed By: #### 3298-7, 4 024-6, 5643-2 #### [facility] CLIA [id number] [address] STATE S OF [facility] CO2 [Moles/Vol] 22 mmol/L Normal 22-30 [facility] Comment on above: Order Comment: Specimen Type : BLOOD SPECIMEN Ordering Facility: [facility] Address: [address] [place] [address] Performed By: #### 3298-7, 4 024-6, 5643-2 #### [facility] CLIA [id number] [address] [place] [address] [place] Creatinine [Mass/Vol] 0.66 mg/dL Normal 0.58-0.96 [facility] Comment on above: Order Comment: Specimen Type : BLOOD SPECIMEN Ordering Facility: [facility] Address: [address] [place] [address] Performed By: #### 3298-7, 4 024-6, 5643-2 #### [facility] CLIA [id number] [address] [place] [address] [place] ESTIMATED GLOMERULAR 105 mL/min/1.73m??? Normal >=60 [facility] Comment on above: Order Comment: Specimen Type : BLOOD SPECIMEN Ordering Facility: [facility] Address: [address] [place], [place] [address] [address] Result Comment: Estimated Gl omerular Filtration Rate [...] By: #### 3298-7, 4 024-6, 5643-2 #### [facility] CLIA [id number] [address] [place] [address] [place] Glucose [Mass/Vol] 70 mg/dL Low 74-99 [facility] Comment on above: Order Comment: Specimen Type : BLOOD SPECIMEN Ordering Facility: [facility] Address: [address] [place] [id number] Result Comment: The [place] [employer] Association (ADA) provides guidance for cutoff [...] for diagnosis of diabetes. Reference: Standards of [facility] in Diabetes 2016, [place] [employer] Association. Diabetes Care. 2016.39(Suppl 1). Performed By: #### 3298-7, 4 024-6, 5643-2 #### [facility] CLIA [id number] [address] [place] [address] [place] Potassium [Moles/Vol] 3.6 mmol/L Low 3.7-5.1 [facility] Comment on above: Order Comment: Specimen Type : BLOOD SPECIMEN Ordering Facility: [facility] Address: [facility] [address] [place] [address] Performed By: #### 3298-7, 4 024-6, 5643-2 #### [facility] CLIA [id number] [address] Protein [Mass/Vol] 5.6 g/dL Low 6.3-8.0 [facility] Comment on above: Order Comment: Specimen Type : BLOOD SPECIMEN Ordering Facility: [facility] Address: [facility] [place] [address] Performed By: #### 3298-7, 4 024-6, 5643-2 #### [facility] CLIA [id number] [address] [place] [address] Sodium [Moles/Vol] 137 mmol/L Normal 136-144 [facility] Comment on above: Order Comment: Specimen Type : BLOOD SPECIMEN Ordering Facility: [facility] Address: [facility] [address] [place] [address] Performed By: #### 3298-7, 4 024-6, 5643-2 #### [facility] CLIA [id number] [address] [place] [address] Urea nitrogen [Mass/Vol] 17 mg/dL Normal 7-21 [facility] Comment on above: Order Comment: Specimen Type : BLOOD SPECIMEN Ordering Facility: [facility] Address: [facility] [place] [address] Performed By: #### 3298-7, 4 024-6, 5643-2 #### [facility] CLIA [id number] [address] THERAPY NT on 06-15-2022 THERAPY NT HNO ID: [id number] Normal [facility] Author: Ronna Lion, PT Ce nter Service: Physical Therapy Author Type: Physical Therapist Type: Therapy (PT/OT/Speech/Resp) Filed: 06/15/2022 11:55 AM Note Text: Physical Therapy Evaluation SERVICE DATE: 06/15/2022 SERVICE TIME: 918 to 933 ROOM: [id number] Recommended Discharge Disposition: Home Recommended Discharge Disposition [...] Gait D evice: None Gait Distance (feet): [id number] initally CGA but quickly progresses to stand [...] Skilled Need Interventions Provided: Evaluation $ Evaluation-Low (66247) Billed Units: 1 unit Training AND education [...] TIME: 11:55 AM THERAPY NT HNO ID: [id number] Normal [facility] Author: CHELSEY [facility] Service: Occupational Therapy Author Type: Occupational Therapist Type: Therapy (PT/OT/Speech/Resp) Filed: 06/15/2022 9:34 AM Note Text: OCCUPATIONAL THERAPY MISSED VISIT SERVICE DATE: 06/15/2022 SERVICE TIME: 932 to 09 ROOM: [place] [address] Patient not seen due to No Skilled [...] Erythrocyte distribution width 15.8 % High 11.5-15.0 [facility] (RBC) [Ratio] Comment on above: Order Comment: Specimen Type : BLOOD SPECIMEN Ordering Facility: [facility] Address: [address] [place] [address] Performed By: #### 3298-7, 4 024-6, 5643-2 #### [facility] CLIA [id number] [address] Hematocrit (Bld) [Volume fraction] 28.0 % Low 36.0-4 6.0 [facility] Comment on above: Order Comment: Specimen Type : BLOOD SPECIMEN Ordering Facility: [facility] Address: [address] [place] [address] Performed By: #### 3298-7, 4 024-6, 5643-2 #### [facility] CLIA [id number] [address] Hemoglobin (Bld) [Mass/Vol] 8.7 g/dL Low 11.5-15.5 [facility] Comment on above: Order Comment: Specimen Type : BLOOD SPECIMEN Ordering Facility: [facility] Address: [address] [place] [address] Performed By: #### 3298-7, 4 024-6, 5643-2 #### [facility] CLIA [id number] [address] MCH (RBC) [Entitic mass] 24.0 pg Low 26.0-34.0 [facility] Comment on above: Order Comment: Specimen Type : BLOOD SPECIMEN Ordering Facility: [facility] Address: [address] [place] [address] Performed By: #### 3298-7, 4 024-6, 5643-2 #### [facility] CLIA [id number] [address] MCHC (RBC) [Mass/Vol] 31.1 g/dL Normal 30.5-36.0 [facility] Comment on above: Order Comment: Specimen Type : BLOOD SPECIMEN Ordering Facility: [facility] Address: [address] [place] [address] Performed By: #### 3298-7, 4 024-6, 5643-2 #### [facility] CLIA [id number] [address] MCV (RBC) [Entitic vol] 77.3 fL Low 80.0-100.0 [facility] Comment on above: Order Comment: Specimen Type : BLOOD SPECIMEN Ordering Facility: [facility] Address: [address] [place] [address] Performed By: #### 3298-7, 4 024-6, 5643-2 #### [facility] CLIA [id number] [address] Nucleated RBC (Bld) [#/Vol] 10*3/uL Normal <0.01 [facility] Comment on above: Order Comment: Specimen Type : BLOOD SPECIMEN Ordering Facility: [facility] Address: [address] [place] [address] Performed By: #### 3298-7, 4 024-6, 5643-2 #### [facility] CLIA [id number] [address] Platelet mean volume (Bld) 10.7 fL Normal 9.0-12.7 [facility] [Entitic vol] Comment on above: Order Comment: Specimen Type : BLOOD SPECIMEN Ordering Facility: [facility] Address: [facility] [place] [address] Performed By: #### 3298-7, 4 024-6, 5643-2 #### [facility] CLIA [id number] [address] Platelets (Bld) [#/Vol] 78 10*3/uL Low 150-400 [facility] Comment on above: Order Comment: Specimen Type : BLOOD SPECIMEN Ordering Facility: [facility] Address: [address] [place] [address] Result Comment: Results chec ked and verified Performed By: #### 3298-7, 4 024-6, 5643-2 #### [facility] CLIA [id number] [address] OF [place] RBC (Bld) [#/Vol] 3.62 10*6/uL Low 3.90-5.20 [facility] Comment on above: Order Comment: Specimen Type : BLOOD SPECIMEN Ordering Facility: [facility] Address: [address] [place] [address] Performed By: #### 3298-7, 4 024-6, 5643-2 #### [facility] CLIA [id number] [address] WBC (Bld) [#/Vol] 5.69 10*3/uL Normal 3.70-11.00 [facility] Comment on above: Order Comment: Specimen Type : BLOOD SPECIMEN Ordering Facility: [facility] Address: [address] [place] [address] Performed By: #### 3298-7, 4 024-6, 5643-2 #### [facility] CLIA [id number] [address] Comprehensive metabolic 2000 panel on 0 06-14-2022 Albumin [Mass/Vol] 3.2 g/dL Low 3.9-4.9 [facility] Comment on above: Order Comment: Specimen Type : BLOOD SPECIMEN Ordering Facility: [facility] Address: [address] [place] [address] Performed By: #### 3298-7, 4 024-6, 5643-2 #### [facility] CLIA [id number] [address] [facility] ALP [Catalytic activity/Vol] 159 U/L High 34-123 [facility] Comment on above: Order Comment: Specimen Type : BLOOD SPECIMEN Ordering Facility: [facility] Address: [address] [place] [address] Performed By: #### 3298-7, 4 024-6, 5643-2 #### [facility] CLIA [id number] [address] ALT With P-5'-P [Catalytic 27 U/L Normal 7-38 [facility] activity/Vol] Comment on above: Order Comment: Specimen Type : BLOOD SPECIMEN Ordering Facility: [facility] Address: [facility] [place] [address] Performed By: #### 3298-7, 4 024-6, 5643-2 #### [facility] CLIA [id number] [address] [facility] Anion gap [Moles/Vol] 9 mmol/L Normal 9-18 [facility] Comment on above: Order Comment: Specimen Type : BLOOD SPECIMEN Ordering Facility: [facility] Address: [facility] [place] [address] Performed By: #### 3298-7, 4 024-6, 5643-2 #### [facility] CLIA [id number] [address] STATE S OF [facility] AST With P-5'-P [Catalytic 37 U/L High 13-35 A [facility] activity/Vol] Comment on above: Order Comment: Specimen Type : BLOOD SPECIMEN Ordering Facility: [facility] Address: [facility] [place] [address] Performed By: #### 3298-7, 4 024-6, 5643-2 #### [facility] CLIA [id number] [address] [place] Bilirubin [Mass/Vol] 0.4 mg/dL Normal 0.2-1.3 [facility] Comment on above: Order Comment: Specimen Type : BLOOD SPECIMEN Ordering Facility: [facility] Address: [address] [place] [place] [place] [address] Performed By: #### 3298-7, 4 024-6, 5643-2 #### [facility] CLIA [id number] [address] [place] Calcium [Mass/Vol] 8.5 mg/dL Normal 8.5-10.2 [facility] Comment on above: Order Comment: Specimen Type : BLOOD SPECIMEN Ordering Facility: [facility] Address: [address] Performed By: #### 3298-7, 4 024-6, 5643-2 #### [facility] CLIA [id number] 1 [place] [address] [place] Chloride [Moles/Vol] 110 mmol/L High 97-105 [facility] Comment on above: Order Comment: Specimen Type : BLOOD SPECIMEN Ordering Facility: [facility] Address: [address] [place] [address] Performed By: #### 3298-7, 4 024-6, 5643-2 #### [facility] CLIA [id number] 1 [place] [address] [place] CO2 [Moles/Vol] 21 mmol/L Low 22-30 [facility] Comment on above: Order Comment: Specimen Type : BLOOD SPECIMEN Ordering Facility: [facility] Address: [address] [place] [address] Performed By: #### 3298-7, 4 024-6, 5643-2 #### [facility] CLIA [id number] 1 [place] [address] [place] Creatinine [Mass/Vol] 0.65 mg/dL Normal 0.58-0.96 [facility] Comment on above: Order Comment: Specimen Type : BLOOD SPECIMEN Ordering Facility: [facility] Address: [address] [place] [address] Performed By: #### 3298-7, 4 024-6, 5643-2 #### [facility] CLIA [id number] [address] [place] ESTIMATED GLOMERULAR 105 mL/min/1.73m??? Normal >=60 [facility] Comment on above: Order Comment: Specimen Type : BLOOD SPECIMEN Ordering Facility: [facility] Address: [address] [place] [address] Result Comment: Estimated Gl omerular Filtration Rate [...] 4 024-6, 5643-2 #### [facility] CLIA [id number] 1 [place] [address] [place] Glucose [Mass/Vol] 192 mg/dL High 74-99 [facility] Comment on above: Order Comment: Specimen Type : BLOOD SPECIMEN Ordering Facility: [facility] Address: [address] [place] [id number] Result Comment: The [place] Diabetes Association (ADA) provides guidance for cutoff [...] for diagnosis of diabetes. Reference: Standards of [facility] in Diabetes 2016, [place] [employer]. Diabetes Care. 2016.39(Suppl 1). Performed By: #### 3298-7, 4 024-6, 5643-2 #### [facility] CLIA [id number] 1 [place] [address] [place] Potassium [Moles/Vol] 3.8 mmol/L Normal 3.7-5.1 [facility] Comment on above: Order Comment: Specimen Type : BLOOD SPECIMEN Ordering Facility: [facility] Address: [address] [place] [address] Performed By: #### 3298-7, 4 024-6, 5643-2 #### [facility] CLIA [id number] [address] [place] Protein [Mass/Vol] 5.4 g/dL Low 6.3-8.0 [facility] Comment on above: Order Comment: Specimen Type : BLOOD SPECIMEN Ordering Facility: [facility] Address: [address] [place] [address] Performed By: #### 3298-7, 4 024-6, 5643-2 #### [facility] CLIA [id number] [address] Sodium [Moles/Vol] 140 mmol/L Normal 136-144 [facility] Comment on above: Order Comment: Specimen Type : BLOOD SPECIMEN Ordering Facility: [facility] Address: [facility] [place] [address] Performed By: #### 3298-7, 4 024-6, 5643-2 #### [facility] CLIA [id number] [address] [place] [address] Urea nitrogen [Mass/Vol] 17 mg/dL Normal 7-21 [facility] Comment on above: Order Comment: Specimen Type : BLOOD SPECIMEN Ordering Facility: [facility] Address: [facility] [place] [address] Performed By: #### 3298-7, 4 024-6, 5643-2 #### [facility] CLIA [id number] [address] CBC panel Auto (Bld) on 06-13-2022 Erythrocyte distribution width 15.6 % High 11.5-15.0 [facility] (RBC) [Ratio] Comment on above: Order Comment: Specimen Type : BLOOD SPECIMEN Ordering Facility: [facility] Address: [address] [place] [address] Performed By: #### 3298-7, 4 024-6, 5643-2 #### [facility] CLIA [id number] [address] OF [facility] Hematocrit (Bld) [Volume fraction] 26.4 % Low 36.0-4 6.0 [facility] Comment on above: Order Comment: Specimen Type : BLOOD SPECIMEN Ordering Facility: [facility] Address: [address] [place] [address] Performed By: #### 3298-7, 4 024-6, 5643-2 #### [facility] CLIA [id number] [address] S OF [facility] Hemoglobin (Bld) [Mass/Vol] 8.3 g/dL Low 11.5-15.5 [facility] Comment on above: Order Comment: Specimen Type : BLOOD SPECIMEN Ordering Facility: [facility] Address: [address] [place] [address] Performed By: #### 3298-7, 4 024-6, 5643-2 #### [facility] CLIA [id number] [address] [place] [address] S OF [place] MCH (RBC) [Entitic mass] 24.4 pg Low 26.0-34.0 [facility] Comment on above: Order Comment: Specimen Type : BLOOD SPECIMEN Ordering Facility: [facility] Address: [address] [place] [place] [address] Performed By: #### 3298-7, 4 024-6, 5643-2 #### [facility] CLIA [id number] [address] [place] [address] S OF [facility] MCHC (RBC) [Mass/Vol] 31.4 g/dL Normal 30.5-36.0 [facility] Comment on above: Order Comment: Specimen Type : BLOOD SPECIMEN Ordering Facility: [facility] Address: [address] [place] [place] [address] Performed By: #### 3298-7, 4 024-6, 5643-2 #### [facility] CLIA [id number] [address] S OF [facility] MCV (RBC) [Entitic vol] 77.6 fL Low 80.0-100.0 [facility] Comment on above: Order Comment: Specimen Type : BLOOD SPECIMEN Ordering Facility: [facility] Address: [address] Performed By: #### 3298-7, 4 024-6, 5643-2 #### [facility] CLIA [id number] 1 [place] [address] [place] Nucleated RBC (Bld) [#/Vol] 10*3/uL Normal <0.01 [facility] Comment on above: Order Comment: Specimen Type : BLOOD SPECIMEN Ordering Facility: [facility] Address: [address] [place] [address] Performed By: #### 3298-7, 4 024-6, 5643-2 #### [facility] CLIA [id number] [address] [facility] Platelet mean volume (Bld) 10.2 fL Normal 9.0-12.7 [facility] [Entitic vol] Comment on above: Order Comment: Specimen Type : BLOOD SPECIMEN Ordering Facility: [facility] Address: [facility] [place] [address] Performed By: #### 3298-7, 4 024-6, 5643-2 #### [facility] CLIA [id number] [address] [place] Platelets (Bld) [#/Vol] 76 10*3/uL Low 150-400 [facility] Comment on above: Order Comment: Specimen Type : BLOOD SPECIMEN Ordering Facility: [facility] Address: [address] [place] [address] Result Comment: Platelet cou nt confirmed by manual review of peripheral blood smear Performed By: #### 3298-7, 4 024-6, 5643-2 #### [facility] CLIA [id number] 1 [place] [address] [place] [facility] [place] RBC (Bld) [#/Vol] 3.40 10*6/uL Low 3.90-5.20 [facility] Comment on above: Order Comment: Specimen Type : BLOOD SPECIMEN Ordering Facility: [facility] Address: [address] [place] [address] Performed By: #### 3298-7, 4 024-6, 5643-2 #### [facility] CLIA [id number] [address] OF [facility] WBC (Bld) [#/Vol] 3.36 10*3/uL Low 3.70-11.00 [facility] Comment on above: Order Comment: Specimen Type : BLOOD SPECIMEN Ordering Facility: [facility] Address: [address] [place] [address] Performed By: #### 3298-7, 4 024-6, 5643-2 #### [facility] CLIA [id number] [address] Comprehensive metabolic 2000 panel on 0 06-13-2022 Albumin [Mass/Vol] 3.2 g/dL Low 3.9-4.9 [facility] Comment on above: Order Comment: Specimen Type : BLOOD SPECIMEN Ordering Facility: [facility] Address: [address] [place] [place] [address] Performed By: #### 3298-7, 4 024-6, 5643-2 #### [facility] CLIA [id number] [address] ALP [Catalytic activity/Vol] 155 U/L High 34-123 [facility] Comment on above: Order Comment: Specimen Type : BLOOD SPECIMEN Ordering Facility: [facility] Address: [address] [place] [address] Performed By: #### 3298-7, 4 024-6, 5643-2 #### [facility] CLIA [id number] [address] ALT With P-5'-P [Catalytic 29 U/L Normal 7-38 A [facility] activity/Vol] Comment on above: Order Comment: Specimen Type : BLOOD SPECIMEN Ordering Facility: [facility] Address: [address] [place] [address] Performed By: #### 3298-7, 4 024-6, 5643-2 #### [facility] CLIA [id number] 1 [place] [address] [place] Anion gap [Moles/Vol] 9 mmol/L Normal 9-18 [facility] Comment on above: Order Comment: Specimen Type : BLOOD SPECIMEN Ordering Facility: [facility] Address: [address] [place] [address] [place] [address] Performed By: #### 3298-7, 4 024-6, 5643-2 #### [facility] CLIA [id number] 1 [place] [address] [place] AST With P-5'-P [Catalytic 44 U/L High 13-35 [facility] activity/Vol] Comment on above: Order Comment: Specimen Type : BLOOD SPECIMEN Ordering Facility: [facility] Address: [address] [place] [address] Performed By: #### 3298-7, 4 024-6, 5643-2 #### [facility] CLIA [id number] [address] [place] Bilirubin [Mass/Vol] 0.7 mg/dL Normal 0.2-1.3 [facility] Comment on above: Order Comment: Specimen Type : BLOOD SPECIMEN Ordering Facility: [facility] Address: [facility] [place] [address] Performed By: #### 3298-7, 4 024-6, 5643-2 #### [facility] CLIA [id number] [address] [place] Calcium [Mass/Vol] 8.7 mg/dL Normal 8.5-10.2 [facility] Comment on above: Order Comment: Specimen Type : BLOOD SPECIMEN Ordering Facility: [facility] Address: [address] [place] [address] [place] [address] Performed By: #### 3298-7, 4 024-6, 5643-2 #### [facility] CLIA [id number] [address] [place] Chloride [Moles/Vol] 109 mmol/L High 97-105 [facility] Comment on above: Order Comment: Specimen Type : BLOOD SPECIMEN Ordering Facility: [facility] Address: [address] [place] [address] Performed By: #### 3298-7, 4 024-6, 5643-2 #### [facility] CLIA [id number] [address] S OF [facility] CO2 [Moles/Vol] 23 mmol/L Normal 22-30 [facility] Comment on above: Order Comment: Specimen Type : BLOOD SPECIMEN Ordering Facility: [facility] Address: [address] [place] [address] Performed By: #### 3298-7, 4 024-6, 5643-2 #### [facility] CLIA [id number] [address] Creatinine [Mass/Vol] 0.53 mg/dL Low 0.58-0.96 [facility] Comment on above: Order Comment: Specimen Type : BLOOD SPECIMEN Ordering Facility: [facility] Address: [address] [place] [address] Performed By: #### 3298-7, 4 024-6, 5643-2 #### [facility] CLIA [id number] [address] ESTIMATED GLOMERULAR 111 mL/min/1.73m??? Normal >=60 [facility] Comment on above: Order Comment: Specimen Type : BLOOD SPECIMEN Ordering Facility: [facility] Address: [address] [place] [address] Result Comment: Estimated Gl omerular Filtration Rate [...] By: #### 3298-7, 4 024-6, 5643-2 #### [facility] CLIA [id number] 1 [place] [address] [place] Glucose [Mass/Vol] 102 mg/dL High 74-99 [facility] Comment on above: Order Comment: Specimen Type : BLOOD SPECIMEN Ordering Facility: [facility] Address: [address] [place] [place] [address] Result Comment: The [place] Diabetes Association (ADA) provides guidance for cutoff [...] for diagnosis of diabetes. Reference: Standards of [facility] Diabetes 2016, [place] [employer]. Diabetes Care. 2016.39(Suppl 1). Performed By: #### 3298-7, 4 024-6, 5643-2 #### [facility] CLIA [id number] 1 [place] [address] [place] Potassium [Moles/Vol] 3.6 mmol/L Low 3.7-5.1 [facility] Comment on above: Order Comment: Specimen Type : BLOOD SPECIMEN Ordering Facility: [facility] Address: [address] [phone] Performed By: #### 3298-7, 4 024-6, 5643-2 #### [facility] CLIA [id number] 1 [place] [address] [place] Protein [Mass/Vol] 5.8 g/dL Low 6.3-8.0 [facility] Comment on above: Order Comment: Specimen Type : BLOOD SPECIMEN Ordering Facility: [facility] Address: [address] [place] [place] [address] Performed By: #### 3298-7, 4 024-6, 5643-2 #### [facility] CLIA [id number] [address] STATE S OF [facility] Sodium [Moles/Vol] 141 mmol/L Normal 136-144 [facility] Comment on above: Order Comment: Specimen Type : BLOOD SPECIMEN Ordering Facility: [facility] Address: [address] [place], [place] [address] Performed By: #### 3298-7, 4 024-6, 5643-2 #### [facility] CLIA [id number] [address] STATE S OF [facility] Urea nitrogen [Mass/Vol] 14 mg/dL Normal 7-21 [facility] Comment on above: Order Comment: Specimen Type : BLOOD SPECIMEN Ordering Facility: [facility] Address: [address] [place] [address] Performed By: #### 3298-7, 4 024-6, 5643-2 #### [facility] CLIA [id number] [address] [place] US ASCITES SURVEY on 06-13-2022 ASCITES SURVEY * * *Final Report* * * Normal [facility] DATE OF EXAM: Jun 13 2022 11:17AM [facility] 1016 - ASCITES SURVEY / PROCEDURE REASON: [...] liver. Probable splenomegaly. IMPRESSION: No ascites identified. Security Public Safety Officer: PSCB Transcribe Date/Time: Jun 13 2022 12:18P Dictated by : RAMSES VILLALTA MD This examination was interpreted and the report review ed and electronically signed by: RAMSES VILLALTA MD on Jun 13 2022 12:19PM EST [id number] APAP SerPl-mCnc on 06-12-2022 Acetaminophen [Mass/Vol] ug/mL Low 10-30 [facility] Comment on above: Order Comment: Specimen Type : BLOOD SPECIMEN Ordering Facility: [facility] Address: [address] [place] [phone] Result Comment: Toxic > 150 ug/mL 4 hours post ingestion The Kacy Panda nomogram can be used to estimate the probability of hepatotoxicity via the relationship of plasma acetaminophen concentration to the post ingestion interval. (Myles. Pedi atrics. 1975. 55:871 to 876 and Kacy et al. Arch Rn Gyn Med. 1981. 141:380 to 385). Reference ranges and high/lo w indicator flags are provided as general guidelines only. The treating physician must determine appropriate target levels/dosing based on the specific clinical situation. Performed By: #### 3298-7, 4 024-6, 5643-2 #### [facility] CLIA [id number] 1 [place] [address] [place] Ammonia Plas-sCnc on 06-12-2022 Ammonia (P) [Moles/Vol] 107 umol/L High 11-51 [facility] Comment on above: Order Comment: Specimen Type : BLOOD SPECIMEN Ordering Facility: [facility] Address: [address] [place] [phone] Performed By: #### 3298-7, 4 024-6, 5643-2 #### [facility] CLIA [id number] 1 [place] [address] [place] Bacteria Ur Cult on 06-12-2022 Bacteria identified Cx >=100,000 CFU/mL Three or Abnormal [facility] (U) more organisms, no one type Center predominant, suggesting contamination during collection. Recollect if clinically indicated. Comment on above: Order Comment: Specimen Type : URINE SPECIMENOrdering Facility: [facility] Address: [address] [phone] Performed By: #### 630-4 ### #[facility] [id number] [place] [address] [place] Basic metabolic 2000 panel on 2 Anion gap [Moles/Vol] 9 mmol/L Normal 9-18 [facility] Comment on above: Order Comment: Specimen Type : BLOOD SPECIMEN Ordering Facility: [facility] Address: [address] [place] [address] Performed By: #### 3298-7, 4 024-6, 5643-2 #### [facility] CLIA [id number] [address] [place] [address] [place] Calcium [Mass/Vol] 9.5 mg/dL Normal 8.5-10.2 [facility] Comment on above: Order Comment: Specimen Type : BLOOD SPECIMEN Ordering Facility: [facility] Address: [address] [place] [address] Performed By: #### 3298-7, 4 024-6, 5643-2 #### [facility] CLIA [id number] [address] [place] [address] [place] Chloride [Moles/Vol] 109 mmol/L High 97-105 [facility] Comment on above: Order Comment: Specimen Type : BLOOD SPECIMEN Ordering Facility: [facility] Address: [address] [place] [address] Performed By: #### 3298-7, 4 024-6, 5643-2 #### [facility] CLIA [id number] 1 [place] [address] [place] CO2 [Moles/Vol] 22 mmol/L Normal 22-30 [facility] Comment on above: Order Comment: Specimen Type : BLOOD SPECIMEN Ordering Facility: [facility] Address: [address] [place] [address] Performed By: #### 3298-7, 4 024-6, 5643-2 #### [facility] CLIA [id number] 1 [place] [address] [place] Creatinine [Mass/Vol] 0.58 mg/dL Normal 0.58-0.96 [facility] Comment on above: Order Comment: Specimen Type : BLOOD SPECIMEN Ordering Facility: [facility] Address: [address] [place] [address] Performed By: #### 3298-7, 4 024-6, 5643-2 #### [facility] CLIA [id number] 1 [place] [address] [place] ESTIMATED GLOMERULAR 108 mL/min/1.73m??? Normal >=60 [facility] Comment on above: Order Comment: Specimen Type : BLOOD SPECIMEN Ordering Facility: [facility] Address: [address] [place] [address] Result Comment: Estimated Gl omerular Filtration Rate [...] By: #### 3298-7, 4 024-6, 5643-2 #### [facility] CLIA [id number] [address] [place] [address] [place] Glucose [Mass/Vol] 114 mg/dL High 74-99 [facility] Comment on above: Order Comment: Specimen Type : BLOOD SPECIMEN Ordering Facility: [facility] Address: [address] [place] [address] Result Comment: The [place] Diabetes Association (ADA) provides guidance for cutoff [...] for diagnosis of diabetes. Reference: Standards of [facility] in Diabetes 2016, [place] Diabetes Association. Diabetes Care. 2016.39(Suppl 1). Performed By: #### 3298-7, 4 024-6, 5643-2 #### [facility] CLIA [id number] [address] STATE S OF [facility] Potassium [Moles/Vol] 3.7 mmol/L Normal 3.7-5.1 [facility] Comment on above: Order Comment: Specimen Type : BLOOD SPECIMEN Ordering Facility: [facility] Address: [facility] [place] [place] [address] Performed By: #### 3298-7, 4 024-6, 5643-2 #### [facility] CLIA [id number] [address] S OF [facility] Sodium [Moles/Vol] 140 mmol/L Normal 136-144 [facility] Comment on above: Order Comment: Specimen Type : BLOOD SPECIMEN Ordering Facility: [facility] Address: [facility] [place] [place] [address] Performed By: #### 3298-7, 4 024-6, 5643-2 #### [facility] CLIA [id number] [address] Urea nitrogen [Mass/Vol] 15 mg/dL Normal 7-21 [facility] Comment on above: Order Comment: Specimen Type : BLOOD SPECIMEN Ordering Facility: [facility] Address: [facility] [place] [place] [address] Performed By: #### 3298-7, 4 024-6, 5643-2 #### [facility] CLIA [id number] [address] S OF [facility] CBC panel Auto (Bld) on 06-12-2022 Erythrocyte distribution width 15.7 % High 11.5-15.0 [facility] (RBC) [Ratio] Comment on above: Order Comment: Specimen Type : BLOOD SPECIMEN Ordering Facility: [facility] Address: [facility] [place] [place] [address] Performed By: #### 3298-7, 4 024-6, 5643-2 #### [facility] CLIA [id number] [address] [place] [address] [place] Hematocrit (Bld) [Volume fraction] 31.5 % Low 36.0-4 6.0 [facility] Comment on above: Order Comment: Specimen Type : BLOOD SPECIMEN Ordering Facility: [facility] Address: [facility] [place] [place] [address] Performed By: #### 3298-7, 4 024-6, 5643-2 #### [facility] CLIA [id number] [address] S OF [facility] Hemoglobin (Bld) [Mass/Vol] 9.9 g/dL Low 11.5-15.5 [facility] Comment on above: Order Comment: Specimen Type : BLOOD SPECIMEN Ordering Facility: [facility] Address: [facility] [place] [address] Performed By: #### 3298-7, 4 024-6, 5643-2 #### [facility] CLIA [id number] [address] [place] [address] S OF [facility] MCH (RBC) [Entitic mass] 24.7 pg Low 26.0-34.0 [facility] Comment on above: Order Comment: Specimen Type : BLOOD SPECIMEN Ordering Facility: [facility] Address: [facility] [place] [address] Performed By: #### 3298-7, 4 024-6, 5643-2 #### [facility] CLIA [id number] [address] [place] [address] S OF [facility] MCHC (RBC) [Mass/Vol] 31.4 g/dL Normal 30.5-36.0 [facility] Comment on above: Order Comment: Specimen Type : BLOOD SPECIMEN Ordering Facility: [facility] Address: [facility] [place] [address] Performed By: #### 3298-7, 4 024-6, 5643-2 #### [facility] CLIA [id number] [address] S OF [place] MCV (RBC) [Entitic vol] 78.6 fL Low 80.0-100.0 [facility] Comment on above: Order Comment: Specimen Type : BLOOD SPECIMEN Ordering Facility: [facility] Address: [address] [place] [address] Performed By: #### 3298-7, 4 024-6, 5643-2 #### [facility] CLIA [id number] 1 [place] [address] [place] Nucleated RBC (Bld) [#/Vol] 10*3/uL Normal <0.01 [facility] Comment on above: Order Comment: Specimen Type : BLOOD SPECIMEN Ordering Facility: [facility] Address: [address] [place] [address] Performed By: #### 3298-7, 4 024-6, 5643-2 #### [facility] CLIA [id number] [address] [place] Platelet mean volume (Bld) 10.0 fL Normal 9.0-12.7 [facility] [Entitic vol] Comment on above: Order Comment: Specimen Type : BLOOD SPECIMEN Ordering Facility: [facility] Address: [address] [place] [address] Performed By: #### 3298-7, 4 024-6, 5643-2 #### [facility] CLIA [id number] [address] STATE S [place] Platelets (Bld) [#/Vol] 99 10*3/uL Low 150-400 [facility] Comment on above: Order Comment: Specimen Type : BLOOD SPECIMEN Ordering Facility: [facility] Address: [address] [place] [address] Performed By: #### 3298-7, 4 024-6, 5643-2 #### [facility] CLIA [id number] 1 [place] [address] [place] RBC (Bld) [#/Vol] 4.01 10*6/uL Normal 3.90-5.20 [facility] Comment on above: Order Comment: Specimen Type : BLOOD SPECIMEN Ordering Facility: [facility] Address: [address], [place] [address] Performed By: #### 3298-7, 4 024-6, 5643-2 #### [facility] CLIA [id number] 1 [place] [address] [place] WBC (Bld) [#/Vol] 5.11 10*3/uL Normal 3.70-11.00 [facility] Comment on above: Order Comment: Specimen Type : BLOOD SPECIMEN Ordering Facility: [facility] Address: [address] [place] [address] Performed By: #### 3298-7, 4 024-6, 5643-2 #### [facility] IA [id number] 1 [place] [id number] [facility] S OF [place] CONSULT on 06-12-2022 CONSULT HNO ID: [id number] Normal [facility] Medical Author: Roderick Benavidez MD [facility] er Service: Neurology General Author Type: Physician [...] small stroke could not be entirely dismissed. [place] IVT risks outweigh benefits at this time. Pre-morbid mRS: Premorbid Modified [place] Score: 0 - N o symptoms at [...] * *Final Report* * * Invalid Interpretation [facility] WO IVCON DATE OF EXAM: Jun 12 2022 9:40AM [facility] 0502 - CT BRAIN ATTACK WO IVCON / [id number] PROCEDURE REASON: Focal neuro deficit, new, fixed, [...] an d extracranial soft tissues are normal. Parking Officer (topogram) images: No additional findings. IMPRESSION: Focal white matter hypodensity in the left frontal cor arron radiata is new from 2013, which may represent age-indeterminate lacun ar infarct. CRITICAL TEST/RESULTS: Communicated with on at 9:48 AM. CR_1 Security Public Safety Officer: NGOC Transcribe Date/Time: Jun 12 2022 9:43A Dictated by : PHILL WALLIS MD This examination was interpreted and the report review ed and electronically signed by: PHILL WALLIS MD on Jun 12 2022 9:48AM EST [id number] CRITICAL!! CTA HEAD W IVCON on 06-12-2022 CTA HEAD W IVCON * * *Final Report* * * Normal A [facility] DATE OF EXAM: Jun 12 2022 9:50AM [facility] 0022 - CTA HEAD W IVCON [...] artery. The basilar artery is pat ent. development educator are patent. SCAs are patent. No significant stenosis. No a neurysm. The major dural sinuses and draining veins are patent. Parking Officer (topogram) images: No additional findings. IMPRESSION: Diffuse [...] between software and imaging review: Lindsey bell. Security Public Safety Officer: PSCP[employer] Transcribe Date/Time: Jun 12 2022 9:56A Dictated by : PHILL WALLIS MD This examination was interpreted and the report review ed and electronically signed by: PHILL WALLIS MD on Jun 12 2022 10:17AM EST [id number] CTA NECK W IVCON on 06-12-2022 CTA NECK W IVCON * * *Final Report* * * Normal A [facility] DATE OF EXAM: Jun 12 2022 9:50AM Center [facility] 0024 - CTA NECK W IVCON / [...] artery. The basilar artery is pat ent. development educator are patent. SCAs are patent. No significant stenosis. No a neurysm. The major dural sinuses and draining veins are patent. Parking Officer (topogram) images: No additional findings. IMPRESSION: Diffuse [...] between software and imaging review: Lindsey bell. Security Public Safety Officer: NGOC Transcribe Date/Time: Jun 12 2022 9:56A Dictated by : PHILL WALLIS MD This examination was interpreted and the report review ed and electronically signed by: PHILL WALLIS MD on Jun 12 2022 10:17AM EST [id number] ECG COMPLETE on 06-12-2022 ECG COMPLETE Ventricular Rate : 112 BPM Normal A [facility] General [facility] Atrial Rate : 112 BPM Center P-R Interval : 166 ms QRS Duration : 88 ms Q-T Interval : 358 ms QTC Calculation(Bazett) : 488 ms Calculated P [place] : 66 degrees Calculated R [place] : 46 degrees Calculated T [place] : 40 degrees SINUS TACHYCARDIA OTHERWISE NORMAL ECG NO PREVIOUS ECGS AVAILABLE Confirmed by MD WADE THOMAS ([id number]) on 06/19/2022 4: 41:58 PM NAME : EVER MCKEON PID : [id number] : 1970 Gender : Female Race : ORD : [id number] Procedure Date : Jun 12 2022 09:57:44 Edit Date : Jun 19 2022 16:42:02 Diagnosis: SINUS TACHYCARDIA OTHERWISE NORMAL ECG NO PREVIOUS ECGS AVAILABLE Confirmed by MD WADE THOMAS ([id number]) on 06/19/2022 4: 41:58 PM Test Reason : Stroke Location : 4 : [facility] EM Overread By : MD WADE THOMAS Edited By : MD WADE THOMAS Referred By : , Acquired by : SOSA DELANEY ED NOTE on 06-12-2022 ED NOTE HNO ID: [id number] [facility] Author: Paula Vital RN Service: Emergency Medicine Author Type: Registered Nurse Type: ED Notes Filed: 06/12/2022 11:21 AM Note Text: To bathroom with steady gait ED NOTE HNO ID: [id number] [facility] Author: Paula Vital RN Service: Emergency Medicine Author Type: Registered Nurse Type: ED Notes Filed: 06/12/2022 10:33 AM Note Text: Error in charting time @0833 actual time 0933 ED PROV NOTE on 06-12-2022 ED HNO ID: [id number] [facility] Author: Manish Huddleston MD General NOTE Service: [...] emergency department. Blood glucose was 121. Patient's care director rn came in later and states that patient [...] (more content not included)... ED HNO ID: [id number] Normal [place] PROV Author: MD Lakhwinder Hein al NOTE [...] on 06-12-2022 Ethanol [Mass/Vol] mg/dL Normal <11 [facility] Comment on above: Order Comment: Specimen Type : BLOOD SPECIMEN Ordering Facility: [facility] Address: [address] [place] [address] Performed By: #### 3298-7, 4 024-6, 5643-2 #### [facility] CLIA [id number] 1 [place] [address] [place] HIGH SENSITIVITY TROPONIN T on 06-12-20 HIGH SENSITIVITY JEFFERY 8 ng/L Normal <12 [facility] Comment on above: Order Comment: Specimen Type : BLOOD SPECIMEN Ordering Facility: [facility] Address: [address] [place] [address] Result Comment: When assessi ng risk for [...] By: #### 3298-7, 4 024-6 5643-2 #### [facility] CLIA [id number] 1 [place] [address] [place] HISTORY PHYSICAL on 06-12-2022 HISTORY HNO ID: [id number] Normal [place] PHYSICAL Author: Neel juarez Service: [facility] Author Type: ? Center Type: [facility] Filed: 06/12/2022 6:54 PM Note Text: Attestation [...] Urban MD Date: 06/12/2022 Time: 8:48 PM [facility] Patient Name: Ever Mckeon Admission: Altered Mental Status Date:June 12, 2022 Subjective HPI Ms. Ever Mckeon is a 51 year old female with PMH: a lcohol dependence (Quit in 2021), cirrhosis of liver without ascites, IB S, depression with anxiety, Iron defiency anemia, obesity, insomnia, and Osteoarthritis Patient presented to [facility] 06/12/2022 for evaluation of altered mental status. Her last known well was 8:15 in the morning of 06/12. She was tearful and anxious on arrival and was confused for th e reason for being in the hospital. The patient's care director rn reported t hat she has a history [...] (more content not included)... HISTORY HNO ID: [id number] Normal [place] PHYSICAL Author: DO Omkar Good Service: [facility] Medicine santos Author Type: Resident [...] Urban MD Date: 06/12/2022 Time: 8:48 PM [place] [facility] HANDP Patient Name: Ever Mckeon [...] Insomnia Prior ED visit for aphasia [at [facility] on 08/23/2021]: The patient presented with difficulty [...] moderat e hiatal hernia She presented to [facility] 06/12/2022 for evaluation of stro ke-like [...] adequate saturations on room air. The patient's caseworker protective services was present, a nd reports that in the last 6 months that she has been working with the [employer], the patient has not had any relapse [...] 06-12-20 Albumin [Mass/Vol] 3.8 g/dL Low 3.9-4.9 [facility] Comment on above: Order Comment: Specimen Type : BLOOD SPECIMEN Ordering Facility: [facility] Address: [address] [place] [address] [place] [address] Performed By: #### 3298-7, 4 024-6, 5643-2 #### [facility] CLIA [id number] [address] [facility] ALP [Catalytic activity/Vol] 224 U/L High 34-123 [facility] Comment on above: Order Comment: Specimen Type : BLOOD SPECIMEN Ordering Facility: [facility] Address: [address] [place] [address] [place] [address] Performed By: #### 3298-7, 4 024-6, 5643-2 #### [facility] CLIA [id number] [address] [facility] ALT With P-5'-P [Catalytic 32 U/L Normal 7-38 [facility] activity/Vol] Comment on above: Order Comment: Specimen Type : BLOOD SPECIMEN Ordering Facility: [facility] Address: [address] [place] [address] Performed By: #### 3298-7, 4 024-6, 5643-2 #### [facility] CLIA [id number] [address] [facility] AST With P-5'-P [Catalytic 49 U/L High 13-35 [facility] activity/Vol] Comment on above: Order Comment: Specimen Type : BLOOD SPECIMEN Ordering Facility: [facility] Address: [address] Performed By: #### 3298-7, 4 024-6, 5643-2 #### [facility] [facility] CLIA [id number] [address] S [place] Bilirubin [Mass/Vol] 0.5 mg/dL Normal 0.2-1.3 [facility] Comment on above: Order Comment: Specimen Type : BLOOD SPECIMEN Ordering Facility: [facility] Address: [address] [place] [address] Performed By: #### 3298-7, 4 024-6, 5643-2 #### [place] [facility] CLIA [id number] [address] Bilirubin.conjugated [Mass/Vol] mg/dL Normal <0.2 [facility] Comment on above: Order Comment: Specimen Type : BLOOD SPECIMEN Ordering Facility: [facility] Address: [address] [place] [address] Performed By: #### 3298-7, 4 024-6, 5643-2 #### [facility] CLIA [id number] [address] Protein [Mass/Vol] 6.8 g/dL Normal 6.3-8.0 [facility] Comment on above: Order Comment: Specimen Type : BLOOD SPECIMEN Ordering Facility: [facility] Address: [address] [place] [address] Performed By: #### 3298-7, 4 024-6, 5643-2 #### [facility] [facility] CLIA [id number] [address] PT panel Coag (PPP) on 06-12-2022 INR Coag (PPP) [Relative time] 1.1 {INR} Normal 0.9-1.3 [facility] Comment on above: Order Comment: Specimen Type : BLOOD SPECIMEN Ordering Facility: [facility] Address: [address] [place] [address] Result Comment: Vitamin K An tagonist (VKA) Therapeutic Range: INR 2 to 3 (Target INR of 2.5) Note: For patients treated w ith VKA drugs, such as warfarin, the [place] [employer] 2012 Guideline recommends a therapeutic INR range of 2 to 3 (target INR of 2.5). This recommendation includes high-risk patients with antiphospholipid syndrome with previous arterial or venous thromboembolism, current-generation mechanical or bioprosthetic aortic heart valve replacement. Note: Patients with boat mechanic al aortic valve replacement and additional risk factors for thromboembolic events (atrial fibrillation, previous thromboembolism, LV dysfunction, hypercoagulable conditions) or an older generation mecha nical AVR (i.e., ball in-Cage) or any mechanical MVR should have a INR therapeutic range of 2.5 to 3.5 (target INR of 3). Xochitl ZEPEDA, et al. Chest 2012 , 141:7S-47S Denisse MCKEON et al. [facility] 20 , 70: 252-289 Performed By: #### 3298-7, 4 024-6, 5643-2 #### [facility] CLIA [id number] 1 [place] [address] [place] PT Coag (PPP) [Time] 11.6 s Normal 9.7-13.0 [facility] Comment on above: Order Comment: Specimen Type : BLOOD SPECIMEN Ordering Facility: [facility] Address: [address] [place] [address] Performed By: #### 3298-7, 4 024-6, 5643-2 #### [facility] CLIA [id number] 1 [place] [address] [place] SARS-CoV-2 RNA Resp Ql SAADIA+probe on SARS-CoV-2 (COVID-19) SARS-CoV-2 (Agent of Normal Not Detecte d [facility] RNA SAADIA+probe Ql (Resp) COVID-19) Not Detected [facility] by RT-PCR or equivalent method. Comment on above: Order Comment: Specimen Type : SWAB OF INTERNAL NOSEOrdering Facility: [facility] Address: [address] [place] [phone] Result Comment: This test prado s been authorized by FDA under an Emergency Use Authorization (EUA). Performed By: #### 25815-7 # ###[facility] [id number] [facility] OF [place] Salicylates SerPl-mCnc on 06-12-2022 Salicylates [Mass/Vol] mg/dL Low 3.0-30.0 [facility] Comment on above: Order Comment: Specimen Type : BLOOD SPECIMEN Ordering Facility: [facility] Address: [address] [place] [address] Result Comment: The therapeu tic range varies and has been reported to be 3.0 to 10.0 mg/dL for anti pyretic/analgesic conditions and 15.0 to 30.0 mg/dL for anti inflammatory/rheumatic fever conditions. Ranges published by the inst rument call worker person. Reference ranges and high/lo w indicator flags are provided as general guidelines only. The treating physician must determine appropriate target levels/dosing based on the specific clinical situation. Performed By: #### 3298-7, 4 024-6, 5643-2 #### [facility] CLIA [id number] [address] [place] [address] [place] TOX SCREEN ROUT UR on 06-12-2022 Amphetamines Confirm (U) Negative Normal Negative [facility] [Mass/Vol] Center Comment on above: Order Comment: Specimen Type : URINE SPECIMEN Ordering Facility: [facility] Address: [address] [place] [address] Result Comment: Cutoff thres hold at 1000 ng/mL. Performed By: #### UTOX2 ### # [facility] CLIA [id number] [address] [place] BARBITURATES, URINE Negative Normal Negative [facility] Comment on above: Order Comment: Specimen Type : URINE SPECIMEN Ordering Facility: [facility] Address: [address] [place], [place] [id number] Result Comment: Cutoff thres hold at 200 ng/mL. Performed By: #### UTOX2 ### # [facility] CLIA [id number] [address] [facility] BENZODIAZEPINES, UR Negative Normal Negative [facility] Comment on above: Order Comment: Specimen Type : URINE SPECIMEN Ordering Facility: [facility] Address: [address] [place] [address] Result Comment: Cutoff thres hold at 200 ng/mL. Performed By: #### UTOX2 ### # [place] [facility] CLIA [id number] [address] [facility] CANNABINOIDS,URINE Negative Normal Negative [facility] Comment on above: Order Comment: Specimen Type : URINE SPECIMEN Ordering Facility: [facility] Address: [address] [place] [address] Result Comment: Cutoff thres hold at 50 ng/mL. Performed By: #### UTOX2 ### # [facility] CLIA [id number] [address] Cocaine Ql (U) Negative Normal Negative [facility] Comment on above: Order Comment: Specimen Type : URINE SPECIMEN Ordering Facility: [facility] Address: [address] [place] [address] Result Comment: Cutoff thres hold at 300 ng/mL. Performed By: #### UTOX2 ### # [facility] CLIA [id number] [address] Ethanol (U) [Mass/Vol] <11 Normal <11 [facility] Comment on above: Order Comment: Specimen Type : URINE SPECIMEN Ordering Facility: [facility] Address: [address] [place] [address] Performed By: #### UTOX2 ### # [facility] CLIA [id number] [address] Opiates Screen Ql (U) Negative Normal Negative [facility] Comment on above: Order Comment: Specimen Type : URINE SPECIMEN Ordering Facility: [facility] Address: [address] [place] [address] Result Comment: Cutoff thres hold at 300 ng/mL. Performed By: #### UTOX2 ### # [facility] [facility] CLIA [id number] [address] oxyCODONE cutoff Screen (U) Negative Normal Negative [facility] [Mass/Vol] Comment on above: Order Comment: Specimen Type : URINE SPECIMEN Ordering Facility: [facility] Address: [address] [place] [address] Result Comment: Cutoff thres hold at 100 ng/mL. Performed By: #### UTOX2 ### # [facility] CLIA [id number] [address] Phencyclidine Ql (U) Negative Normal Negative [facility] Comment on above: Order Comment: Specimen Type : URINE SPECIMEN Ordering Facility: [facility] Address: [address] [place] [address] Result Comment: Cutoff thres hold at 25 ng/mL. Performed By: #### UTOX2 ### # [facility] CLIA [id number] [address] Urinalysis complete panel (U) on 2021 Bilirubin Ql (U) Negative Normal Negative [facility] Comment on above: Order Comment: Specimen Type : BLOOD SPECIMEN Ordering Facility: [facility] Address: [address] [place] [address] Performed By: #### 3298-7, 4 024-6, 5643-2 #### [facility] CLIA [id number] [address] Clarity (Unsp spec) Clear Normal Clear [facility] Comment on above: Order Comment: Specimen Type : BLOOD SPECIMEN Ordering Facility: [facility] Address: [address] [place] [address] Performed By: #### 3298-7, 4 024-6, 5643-2 #### [facility] CLIA [id number] [address] Color (U) Light Yellow Normal yellow [facility] Comment on above: Order Comment: Specimen Type : BLOOD SPECIMEN Ordering Facility: [facility] Address: [address] [place] [address] Performed By: #### 3298-7, 4 024-6, 5643-2 #### [facility] CLIA [id number] [address] Glucose Test strip (U) Negative Normal Negative [facility] [Mass/Vol] Comment on above: Order Comment: Specimen Type : BLOOD SPECIMEN Ordering Facility: [facility] Address: [address] [place] [address] Performed By: #### 3298-7, 4 024-6, 5643-2 #### [facility] CLIA [id number] [address] Hemoglobin Ql (U) Negative Normal Negative [facility] Comment on above: Order Comment: Specimen Type : BLOOD SPECIMEN Ordering Facility: [facility] Address: [address] [place] [address] Performed By: #### 3298-7, 4 024-6, 5643-2 #### [facility] CLIA [id number] [address] Ketones Ql (U) Negative Normal Negative [facility] Comment on above: Order Comment: Specimen Type : BLOOD SPECIMEN Ordering Facility: [facility] Address: [address] [place] [address] Performed By: #### 3298-7, 4 024-6, 5643-2 #### [facility] CLIA [id number] [address] Leukocyte esterase Test strip Negative Normal Negative [facility] Ql (U) Comment on above: Order Comment: Specimen Type : BLOOD SPECIMEN Ordering Facility: [facility] Address: [address], [place] [address] Performed By: #### 3298-7, 4 024-6, 5643-2 #### [facility] CLIA [id number] [address] [place] Nitrite Ql (U) 2+ Abnormal Negative [facility] Comment on above: Order Comment: Specimen Type : BLOOD SPECIMEN Ordering Facility: [facility] Address: [address] [place] [address] [place] [address] Performed By: #### 3298-7, 4 024-6, 5643-2 #### [facility] CLIA [id number] [address] [place] pH (U) 7.0 [pH] Normal 5.0-8.0 [facility] Comment on above: Order Comment: Specimen Type : BLOOD SPECIMEN Ordering Facility: [facility] Address: [address] [place] [address] Performed By: #### 3298-7, 4 024-6, 5643-2 #### [facility] CLIA [id number] [address] [place] [address] S [facility] Protein (U) [Mass/Vol] Negative Normal Negative [facility] Comment on above: Order Comment: Specimen Type : BLOOD SPECIMEN Ordering Facility: [facility] Address: [address] [place] [address] Performed By: #### 3298-7, 4 024-6, 5643-2 #### [facility] CLIA [id number] [address] [facility] RBC LM.HPF (Urine sed) 3-5 /HPF Abnormal 0-3 /HPF [facility] [#/Area] Comment on above: Order Comment: Specimen Type : BLOOD SPECIMEN Ordering Facility: [facility] Address: [address] [place] [address] Performed By: #### 3298-7, 4 024-6, 5643-2 #### [facility] CLIA [id number] [address] [place] [address] S [facility] Specific gravity (U) [Rel 1.030 Normal 1.005-1.030 [facility] density] Comment on above: Order Comment: Specimen Type : BLOOD SPECIMEN Ordering Facility: [facility] Address: [address] Performed By: #### 3298-7, 4 024-6, 5643-2 #### [facility] CLIA [id number] [address] Urobilinogen Ql (U) Normal Normal Negative [facility] Comment on above: Order Comment: Specimen Type : BLOOD SPECIMEN Ordering Facility: [facility] Address: [facility] [place] [address] Performed By: #### 3298-7, 4 024-6, 5643-2 #### [facility] CLIA [id number] [address] [place] [address] WBC LM.HPF (Urine sed) [#/Area] 0-5 /HPF Normal 0-5 /HPF [facility] Comment on above: Order Comment: Specimen Type : BLOOD SPECIMEN Ordering Facility: [facility] Address: [facility] [place] [address] Performed By: #### 3298-7, 4 024-6, 5643-2 #### [facility] CLIA [id number] [address] [place] [address] aPTT PPP on 06-12-2022 aPTT Coag (PPP) [Time] 26.2 s Normal 23.0-32.4 [facility] Comment on above: Order Comment: Specimen Type : BLOOD SPECIMEN Ordering Facility: [facility] Address: [facility] [place] [place] [address] Performed By: #### 3298-7, 4 024-6, 5643-2 #### [facility] CLIA [id number] [address] [place] [address] ED PROV NOTE on 05-06-2022 ED PROV NOTE HNO ID: [id number] Normal [facility] Author: Bharat Lane PA-C Center Service: Emergency Medicine Author Type: Physician Inside Sales Professional Type: ED Provider Notes Filed: 05/07/2022 12:20 [...] and crackers. Patient will be discharged ho nh. Will prescribe Zofran if she feels any [...] all questions. This note was generated using [employer] voice dictation. All resonable efforts were made to correct dictation errors but they still may occur given the nature of the software. Clinical Impressions (more content not included)... RPR on 10-08-2021 Reagin Ab RPR Ql (S) REAC Abnormal Non Reactive [facility] Comment on above: Performed By: #### RPR, RPRQ NT, SYPHTX #### [facility] [address] [place] [phone] RPR Quant Titer on 10-08-2021 RPR Quant Titer D[address] [facility] Comment on above: Performed By: #### RPR, RPRQ NT, SYPHTX #### [facility] [address] [place] [phone] Syphilis Ttl w/Reflx on 10-08-2021 Syphilis Interp SYPH2 Normal [facility] Comment on above: Performed By: #### RPR, RPRQ NT, SYPHTX #### [facility] [address] [place] [phone] Syphilis Ttl w/Reflx on 10-07-2021 Syphilis Screen Rslt REAC Abnormal Non Reactive [facility] Comment on above: Performed By: #### RPR, RPRQ NT, SYPHTX #### [facility] [address] [place] [phone] T. pallidum Ab IgG on 10-07-2021 T. pallidum IgG Qual Abnormal Negative [facility] Comment on above: Result Comment: Incorrect te st ordered. Correct order placed. Results to follow. SEE [id number] CHANGED PER CLIENT SERVICES CALL WITH [employer] [phone] Account Credited T. pallidum, IgG Normal [facility] Comment on above: Result Comment: Incorrect te st ordered. Correct order placed. Results to follow. SEE [id number] CHANGED PER CLIENT SERVICES CALL WITH [employer] CR [phone] Account Credited GC/Chlamydia Amplif on 12-01-2021 Chlamydia Amplif Normal [facility] Comment on above: Result [...] consistent with infection. GC Amplification NGPOS Normal [facility] RPR on 09-24-2021 Reagin Ab RPR Ql (S) Reactive Abnormal Non Reactive [facility] Comment on above: Performed By: #### RPR, RPRQ NT #### [facility] [address] [address] RPR Quant Titer on 09-24-2021 RPR Quant Titer D1024 Normal [facility] in Reference Lab Comment on above: Performed By: #### RPR, RPRQ NT #### [facility] [address] [place] [address] Trich vaginalis Ampl on 09-24-[address] [facility] Comment on above: Result Comment: Negative for This test was developed and its performance characteristics determined by [facility] [place] ([facility] It has not been cleared or approved by the FDA. [facility] is regul ated under CLIA as qualified to perform high complexity testing. This test is used for clinical purposes. It should not be regarded as investigational or for research. Trichomonas This test was developed and its performance characteristics determined by [facility]'s [facility] [place] ([facility] It has not been cleared or approved by the FDA. [facility] is regul ated under CLIA as qualified to perform high complexity testing. This test is used for clinical purposes. It should not be regarded as investigational or for research. vaginalis by This test was developed and its performance characteristics determined by [facility] [place] ([facility] It has not been cleared or approved by the FDA. [facility] is regul ated under CLIA as qualified to perform high complexity testing. This test is used for clinical purposes. It should not be regarded as investigational or for research. amplification This test was developed and its performance characteristics determined by [facility] [place] ([facility] It has not been cleared or approved by the FDA. [facility] is regul ated under CLIA as qualified to perform high complexity testing. This test is used for clinical purposes. It should not be regarded as investigational or for research. GC/Chlamydia Amplif on 09-23-2021 GC/Chlam Amp Source Vaginal Normal [facility] Trich vaginalis Ampl on 09-23-2021 Trich vag Amp Source Urine Normal [facility] Basic Metabolic Panel on 08-23-2021 Anion gap [Moles/Vol] 7 mmol/L Normal 3-13 [facility] Comment on above: Performed By: #### BMP3, HEM DF, TROPN #### [facility] [address] [place] [address] Calcium [Mass/Vol] 9.3 mg/dL Normal 8.4-10.4 [facility] Comment on above: Performed By: #### BMP3, HEM DF, TROPN #### [facility] [employer] [facility] [address] [place] [address] CO2 [Moles/Vol] 23 mmol/L Normal -30 [facility] Comment on above: Performed By: #### BMP3, HEM DF, TROPN #### [facility] [employer] [facility] [address] [place] [address] Glucose [Mass/Vol] 121 mg/dL High 70-100 [facility] Comment on above: Performed By: #### BMP3, HEM DF, TROPN #### [facility] [address] [place] [address] Urea nitrogen [Mass/Vol] 21 mg/dL High 9-20 [facility] Comment on above: Performed By: #### BMP3, HEM DF, TROPN #### [facility] [address] [place] [address] Creatinine [Mass/Vol] 0.69 mg/dL Normal 0.52-1.25 [facility] Comment on above: Performed By: #### BMP3, HEM DF, TROPN #### [facility] [address] [place] [address] eGFR OTHER > 90.0 Normal >60 [facility] stem Comment on above: Result Comment: [...] By: #### BMP3, HEM DF, TROPN #### [facility] [employer] [facility] [address] [place] [address] GFR/1.73 sq M.predicted among blacks mL/min/{1.73_m2} Normal >60 [facility] MDRD (S/P/Bld) [Vol rate/Area] Comment on above: Performed By: #### BMP3, HEM DF, TROPN #### [facility] [address] [place] [address] Potassium [Moles/Vol] 3.9 mmol/L Normal 3.5-5.1 [facility] Comment on above: Performed By: #### BMP3, HEM DF, TROPN #### [facility] [address] [place] [address] Sodium [Moles/Vol] 137 mmol/L Normal 135-145 [facility] Comment on above: Performed By: #### BMP3, HEM DF, TROPN #### [facility] [address] [place] [address] Chloride [Moles/Vol] 107 mmol/L Normal 98-107 [facility] Comment on above: Performed By: #### BMP3, HEM DF, TROPN #### [facility] [address] [place] [address] Basic Metabolic Panel Ordered By: Ace Diamond on 08-23-2021 Anion gap [Moles/Vol] 7 mmol/L 3 - 13 mmol/L [facility] Work Phone: Calcium [Mass/Vol] 9.3 mg/dL 8.4 - 10.4 mg/dL [facility] Work Phone: Chloride [Moles/Vol] 107 mmol/L 98 - 107 mmol/L [facility] Work Phone: CO2 [Moles/Vol] 23 mmol/L 22 - 30 mmol/L [facility] Work Phone: [phone] Creatinine [Mass/Vol] 0.69 mg/dL 0.52 - 1.25 mg/dL [facility] Work Phone: EGFR IF NonAfrican >90.0 >60 mL/min [facility] [employer] Work Phone: [phone] Comment on above: KDIGO guidelines provide the [...] 70 - 100 [facility] mg/dL Work Phone: [phone] Interpretation and Abnormal [facility] review of laboratory Work Ph one: results Potassium [Moles/Vol] 3.9 mmol/L 3.5 - 5.1 [facility] mmol/L Work Phone: [phone] Sodium [Moles/Vol] 137 mmol/L 135 - 145 [facility] mmol/L Work Phone: [phone] Urea nitrogen (BldV) 21 mg/dL High 9 - 20 mg/dL [facility] [Mass/Vol] Work Phone: [phone] Test Performed by [facility] [employer], [address] [place]: [place] [address] [facility] Work Phone: [phone] CBC WITH AUTO DIFFERENTIAL Ordered By: Rodrigo Diamond on 08-23-2021 Absolute Baso # 0.0 10*3/uL 0.0 - 0.2 [facility] 10*3/uL Work Phone: [phone] Absolute Neut # 4.5 10*3/uL 1.8 - 7.0 [facility] 10*3/uL Work Phone: [phone] Basophils/100 WBC (Bld) 0.6 % 0.0 - 2.0 % [facility] Work Phone: [phone] Eosinophils (Bld) [...] [facility] 10*3/uL Work Phone: Test Performed by [employer] Work Phone: System, [address] [place] [phone] [employer] Work Phone: CR Chest Portable on 08-23-2021 CR Chest Portable Patient Name: EVER MCKEON [facility] [employer] [facility] Diagnostic Radiology ACCESSION EXAM DATE/TIME PROCEDURE ORDERING PROVIDER [phone] 08/23/2021 21:28 EDT CR Chest Portable SANDRA CAVAZOS CHARLES G CPT code 52503 Reason For Exam (CR Chest Portable) sob [...] Abs Baso Cnt 0.0 10*3/uL Normal 0.0-0.2 [facility] stem Comment on above: Performed By: #### BMP3, HEM DF, TROPN #### [address] [place] [address] Abs Neutrophile Cnt 4.5 10*3/uL Normal 1.8-7.0 [facility] Comment on above: Performed By: #### BMP3, HEM DF, TROPN #### [address] [place] [address] Basophils/100 WBC (Bld) 0.6 % Normal 0.0-2.0 [facility] Comment on above: Performed By: #### BMP3, HEM DF, TROPN #### [address] [address] Eosinophils (Bld) [#/Vol] 0.0 10*3/uL Normal 0.0-0.5 [facility] Comment on above: Performed By: #### BMP3, HEM DF, TROPN #### [address] [address] Eosinophils/100 WBC (Bld) 0.4 % Low 1.0-6.0 [facility] Comment on above: Performed By: #### BMP3, HEM DF, TROPN #### [address] [address] Erythrocyte distribution width (RBC) 14.6 % High 11.5 -14.5 [facility] [Ratio] Comment on above: Performed By: #### BMP3, HEM DF, TROPN #### [address] [address] Granulocytes/100 WBC (Bld) 59.9 % Normal 40.0-80.0 [facility] Comment on above: Performed By: #### BMP3, HEM DF, TROPN #### [address] [address] Hematocrit (Bld) [Volume fraction] 35.8 % Normal 35.0-4 7.0 [facility] Comment on above: Performed By: #### BMP3, HEM DF, TROPN #### [address] [place] [address] Hemoglobin (Bld) [Mass/Vol] 12.0 g/dL Normal 11.7-16.0 [facility] Comment on above: Performed By: #### BMP3, HEM DF, TROPN #### [address] [place] [address] Lymphocytes (Bld) [#/Vol] 1.8 10*3/uL Normal 1.0-4.3 [facility] Comment on above: Performed By: #### BMP3, HEM DF, TROPN #### [address] [address] [place] [address] Lymphocytes/100 WBC (Bld) 24.1 % Normal 20.0-40.0 [facility] Comment on above: Performed By: #### BMP3, HEM DF, TROPN #### [address] [address] MCH (RBC) [Entitic mass] 30.6 pg Normal 26.0-34.0 [facility] Comment on above: Performed By: #### BMP3, HEM DF, TROPN #### [address] [address] [place] [address] MCHC 33.7 % Normal 32.0-36.0 [facility] stem Comment on above: Performed By: #### BMP3, HEM DF, TROPN #### [address] [place] [address] MCV (RBC) [Entitic vol] 91.0 fL Normal 79.0-98.0 [facility] Comment on above: Performed By: #### BMP3, HEM DF, TROPN #### [address] [place] [address] Monocytes (Bld) [#/Vol] 1.1 10*3/uL High 0.0-0.8 [facility] Comment on above: Performed By: #### BMP3, HEM DF, TROPN #### [address] [address] Monocytes/100 WBC (Bld) 15.0 % High 2.0-10.0 [facility] Comment on above: Performed By: #### BMP3, HEM DF, TROPN #### [address] [address] [place] [address] Platelet mean volume (Bld) [Entitic vol] 8.4 fL Normal 7.4-10.4 [facility] Comment on above: Performed By: #### BMP3, HEM DF, TROPN #### [address] [address] Platelets (Bld) [#/Vol] 301 10*3/uL Normal 140-440 [facility] Comment on above: Performed By: #### BMP3, HEM DF, TROPN #### [address] [address] RBC (Bld) [#/Vol] 3.93 10*6/uL Normal 3.80-5.20 [facility] Comment on above: Performed By: #### BMP3, HEM DF, TROPN #### [address] [address] WBC (Bld) [#/Vol] 7.5 10*3/uL Normal 3.6-10.7 [facility] Comment on above: Performed By: #### BMP3, HEM DF, TROPN #### [address] [address] Troponin Ordered By: Rodrigo Diamond on Troponin I.cardiac [Mass/Vol] ng/mL 0.000 - 0.0 34 ng/mL [facility] Work Phone: Comment on above: . Test Performed by [facility], [address] [place] [address] Work Phone: [facility] Work Phone: Troponin I on 08-23-2021 Troponin I.cardiac [Mass/Vol] ng/mL Normal 0.000-0.034 [facility] Comment on above: Result Comment: . Performed By: #### BMP3, HEM DF, TROPN #### [facility] [address] [place] [address] XR CHEST PORTABLE Ordered By: Rodrigo zamudio on 08-23-2021 Patient Name: EVER MCKEON [facility]ct[id number] Diagnostic Radiology ACCESSION EXAM Work Phone: DATE/TIME PROCEDURE ORDERING PROVIDER [phone] 08/23/2021 21:28 EDT CR Chest Portable SANDRA DIAMOND CHARLES G CPT code 88054 Reason For Exam (CR Chest Portable) sob [...] Transcribed Date and Time: 08/23/2021 9:36 Ricky, [facility] Incoming Radiolog y Results From [facility] - 08/23/2021 9:[address] [facility] Patient Name: EVER MCKEON Work Phone: Diagnostic Radiology ACCESSION EXAM DATE/TIME PROCEDURE ORDERING PROVIDER [phone] 08/23/2021 21:28 EDT CR Chest Portable SANDRA CAVAZOS CHARLES G CPT code 96702 Reason For Exam (CR Chest Portable) sob [...] on 08-08-2020 Patient Name: EVER MCKEON FIN: [place], [place] [id number] ---MRI--- Exam Date/Time 08/08/2020 12:11 :55 EDT Exam MRI Abdomen w/o Contrast Ordering Physician ROLAND DENISE MAUREEN CLAIRE Accession Number [id number] CPT4 Codes 53606 () Reason For Exam bili akbar obstruction [...] Results From [facility] - 3:02 PM EDT [place], [place] Patient Name: EVER MCKEON ---MRI--- Exam Date/Time 08/08/2020 12:11:55 EDT Exam MRI Abdomen w/o Contrast Ordering Physician ROLAND DENISE MAUREEN CLAIRE Accession Number [id number] CPT4 Codes 58829 () Reason For Exam biliary obstruction Report [...] n 05-22-2020 Anion gap [Moles/Vol] 7 mmol/L [place], [place] Calcium [Mass/Vol] 8.2 mg/dL Low 8.4 - 10.4 mg/dL [place], [place] Chloride [Moles/Vol] 100 mmol/L 98 - 107 mmol/L [place], [place] CO2 [Moles/Vol] 24 mmol/L 22 - 30 mmol/L [place], [place] Creatinine [Mass/Vol] 0.48 mg/dL Low 0.52 - 1.25 mg/dL [place], [place] EGFR IF NonAfrican [place] >90.0 >60 mL/min [place], [place] Comment on above: KDIGO guidelines provide [...] (GFR) from serum creatinine in children is [facility] Bedside Kumar equation. It is less accurate in patie nts with extremes of muscle mass, restriction of dietary protein, ingestion of creatine, extra-renal metabolism of cr eatinine, or treatment with medications that affect sofía l tubular creatinine secretion. GFR/1.73 sq M predicted mL/min/{1.73_m2} >60 mL/min [facility]- among blacks MDRD [place], [place] (S/P/Bld) [Vol rate/Area] Glucose [Mass/Vol] 74 mg/dL 70 - 100 mg/dL [place], [place] Interpretation and Abnormal [facility]- review of laboratory [place], [place] results Potassium [Moles/Vol] 3.6 mmol/L 3.5 - 5.1 [facility]- mmol/L [place] Sodium [Moles/Vol] 132 mmol/L Low 135 - 145 [facility]- mmol/L [place], [place] Urea nitrogen [Mass/Vol] 9 mg/dL 7 - 20 mg/dL [place], [place] Test Performed by [facility], [address] [place] [address] CBC Auto Differential on 05-22-2020 Absolute Baso # 0.1 10*3/uL 0 - 0.2 10*3/uL [employer] [place], [place] Absolute Neut # 4.2 10*3/uL 1.8 - 7 10*3/uL [employer] [place], [place] Basophils/100 WBC (Bld) 1.1 % 0 - 2 % [facility], [place] Eosinophils (Bld) [#/Vol] 0.2 10*3/uL 0 - 0.5 10*3/uL [facility], [place] Eosinophils/100 WBC (Bld) 1.9 % 1 - 6 % [facility], [place] Erythrocyte distribution 15.6 % High 11.5 - 14.5 % [facility], width (RBC) [Ratio] [place] Granulocytes/100 WBC 53.8 % 40 - 80 % [facility], (Bld) [place] Hematocrit (Bld) [Volume 30.8 % Low 35 - 47 % [facility], fraction] [place] Hemoglobin (Bld) 10.4 g/dL Low 11.7 - 16 g/dL [facility], [Mass/Vol] [place] Interpretation and review Abnormal [facility], of laboratory results [place] Lymphocytes (Bld) [#/Vol] 2.1 10*3/uL 1 - 4.3 10*3/uL [facility], [place] Lymphocytes/100 WBC (Bld) 26.7 % 20 - 40 % [facility], [place] MCH (RBC) [Entitic mass] 30.4 pg 26 - 34 pg [facility], [place] MCHC (RBC) [Mass/Vol] 33.7 % 32 - 36 % [facility], [place] MCV (RBC) [Entitic vol] 90.1 fL 79 - 98 fL [facility], [place] Monocytes (Bld) [#/Vol] 1.3 10*3/uL High 0 - 0.8 10*3/uL [facility], [place] Monocytes/100 WBC (Bld) 16.5 % High 2 - 10 % [facility], [place] Platelet mean volume 7.4 fL 7.4 - 10.4 fL [facility], (Bld) [Entitic vol] [place] Platelets (Bld) [#/Vol] 174 10*3/uL 140 - 440 10*3/uL [facility], [place] RBC (Bld) [#/Vol] 3.42 10*6/uL Low 3.8 - 5.2 10*6/uL [place], [place] WBC (Bld) [#/Vol] 7.8 10*3/uL 3.6 - 10.7 10*3/uL [place], [place] Test Performed by [facility], [facility], [place] [address] [address] Cytology, non gyne on 05-22-2020 Cytology report Cyto SEE BELOW [place], [place] stain.thin prep Doc (Cvx/Vag) 1 [facility] [id number] [place], [place] DEPARTMENT OF PATHOLOGY AND [facility] LABORATORY MEDICINE [address] [place] [address] FINAL MEDICAL CYTOLOGY REPORT ____ NAME: EVER MCKEON Kiel : 1970 49 Y F BILLING NO.: [id number] LOCATION: [address] [place] [address] PROCEDURE 05/20/2020 A DATE: PHYSICIAN: LUZ MARIA [...] characteristics determined by the clinical laboratories of [facility]. They have not been cleared [...] negativity on decalcified specimens. Case reviewed at [place] [address] [place] [address]. 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: JONNY FLANAGANB: 1970 Requested By: Sergio RAZA Order Number: [id number] Reading MD: Cinthya Li Measurements Intervals [place] Rate: 84 P: 76 NE: 170 QRS: 48 QRSD: 100 T: -20 QT: 460 QTc: 544 Interpretive Statements Sinus rhythm Borderline T abnormalities, inferior leads Prolonged QT interval Compared to ECG 05/20/2020 12:22:13 No significant changes Electronically Signed On 05-22-2020 7:04:27 EDT by Trista sal johnson [facility] Test Date: 2020-05-21 [facility]: [facility] Room: 1539 Gen jose: F Roofing Machine Tender: JONNY FLANAGANB: 1970 Requested By: Sergio OTTO DO Order Number: [id number] Reading : Cinthya Li Measurements Intervals [place] Rate: 84 P: 76 NE: 170 QR S: 48 QRSD: 100 T: -20 QT: 460 QTc: 544 Interpretive Statements Sinus rhythm Borderline T abnormalities, inferior leads Prolonged QT interval Compared to ECG 05/20/2020 12:22:13 No significant changes Nirav asencio Signed On 05-22-2020 7:04:27 EDT by Cinthya Yaakovjohnson Troponin on 05-22-2020 Troponin I.cardiac [Mass/Vol] ng/mL 0 - 0.034 n g/mL [place], [place] Comment on above: . Test Performed by [facility], [address] [place] [address] US PARACENTESIS INITIAL on 05-22-2020 Ricky, [facility] Incoming Radiology Results From Radnet - 1:45 PM EDT [place], [place] Patient Name: EVER MCKEON ---Ultrasound--- Exam Date/Time 05/20/2020 16:23:27 EDT Exam US Paracentesis Initial Ordering Physician MD RADHA, [facility] Accession Number [id number] CPT4 Codes 21089 () Reason For Exam perihepatic fluid collection [...] 05/22/2020 1:41 Patient Name: EVER MCKEON FIN: [place], [place] [id number] ---Ultrasound--- Exam Date/Time 0 16:23:27 EDT Exam US Paracentesis Initial Ordering Physician MD RADHA, [facility] Accession Number [id number] CPT4 Codes 16646 () Reason For Exam perihepatic fluid collection Report ULTRASOUND GUIDED PARACENTESIS: Indication: Ascites. Procedure: Followin g discussion with the patient regarding risks, benefits and alternatives, the skin was sterilely prepared and loca l anesthesia was applied. Ultrasound shows small perihep atic fluid collection with internal septations, suggesting loculations. A Flexis catheter was advanced under ultras ound guidance [...] Lab Test on 05-21-2020 Sodium [Moles/Vol] Accepted [place], [place] Comment on above: Specimen available & accepta ble for analysis. Test Performed by [email or web address] [facility], [facility] [address] [place] [address] Albumin, Fluid on 05-21-2020 Albumin, Fluid 1.5 g/dL No Range [place], [place] Basic Metabolic Panel w/ Reflex to MG on 05-21-2020 Anion gap [Moles/Vol] 7 mmol/L [place], [place] Calcium [Mass/Vol] 8.2 mg/dL Low 8.4 - 10.4 mg/dL [place], [place] Chloride [Moles/Vol] 101 mmol/L 98 - 107 mmol/L [place], [place] CO2 [Moles/Vol] 25 mmol/L 22 - 30 mmol/L [facility], [place] Creatinine [Mass/Vol] 0.47 mg/dL Low 0.52 - 1.25 mg/dL [place], [place] EGFR IF NonAfrican [place]ian >90.0 >60 mL/min [place], [place] Comment on above: KDIGO guidelines provide [...] (GFR) from serum creatinine in children is [facility] Bedside Kumar equation. It is less accurate in patie nts with extremes of muscle mass, restriction of dietary protein, ingestion of creatine, extra-renal metabolism of cr eatinine, or treatment with medications that affect sofía l tubular creatinine secretion. GFR/1.73 sq M predicted mL/min/{1.73_m2} >60 mL/min [facility]- among blacks MDRD [place], [place] (S/P/Bld) [Vol rate/Area] Glucose [Mass/Vol] 79 mg/dL 70 - 100 mg/dL [place], [place] Interpretation and Abnormal [facility]- review of laboratory [place], [place] results Potassium [Moles/Vol] 3.4 mmol/L Low 3.5 - 5.1 [facility]- mmol/L [place] Sodium [Moles/Vol] 133 mmol/L Low 135 - 145 [facility]- mmol/L [place], [place] Urea nitrogen [Mass/Vol] 8 mg/dL 7 - 20 mg/dL [place], [place] Test Performed by [facility], [address], [place] [address] Body Fluid Cell Count with Differential on 05-21-2020 Nucl Cell, Fluid 269 {cells}/uL [place], [place] Comment on above: clumped cells founded, inter pret with caution RED BLOOD CELLS, BODY FLUID 620 {RBC}/uL [place], [place] Sodium [Moles/Vol] Ascites [place] Test Performed by [place] System, [facility] [place] [address] CBC Auto Differential on 05-21-2020 Erythrocyte distribution 15.6 % High 11.5 - 14.5 % [place], [place] width (RBC) [Ratio] Hematocrit (Bld) [Volume 31.1 % Low 35 - 47 % [place], [place] fraction] Hemoglobin (Bld) [Mass/Vol] 10.6 g/dL Low 11.7 - 16 g/d L [place], [place] Interpretation and review of Abnormal [place] laboratory results MCH (RBC) [Entitic mass] 30.5 pg 26 - 34 pg [place], [place] MCHC (RBC) [Mass/Vol] 34.3 % 32 - 36 % [place], [place] MCV (RBC) [Entitic vol] 88.9 fL 79 - 98 fL [place], [place] Platelet mean volume (Bld) 7.3 fL Low 7.4 - 10.4 fL [place], [place] [Entitic vol] Platelets (Bld) [#/Vol] 177 10*3/uL 140 - 440 10*3/uL [place], [place] RBC (Bld) [#/Vol] 3.49 10*6/uL Low 3.8 - 5.2 10*6/uL [place], [place] WBC (Bld) [#/Vol] 8.2 10*3/uL 3.6 - 10.7 10*3/uL [place], [place] Culture, Anaerobic on 05-21-2020 Anaerobic Culture No growth of anaerobes at 5 days. [place], [place] Test Performed by [facility], [address] [place], [place] [address] Differential, Body Fluid on 05-21-2020 Eosinophils/100 WBC (Bld) 3 % [place], [place] Lymphocytes/100 WBC (Bld) 10 % [facility], [place] Macrophage count 1 % [facility], [place] Monocytes/100 WBC (Bld) 5 % [facility], [place] Neutrophils/100 WBC (Bld) 81 % [facility], [place] Sodium [Moles/Vol] 100 mmol/L [facility], [place] EKG 12 Lead on 05-21-2020 [facility] Test Date: 2020-05-20 Pat Name: [facility] MONICA Mckeon Department: 1A5W Room: [address] [place] [address] er: F 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1970 Requested By: PAU GARCIA Order Number: [id number] Reading MD: Lela rGajeda Measurements Intervals [place] Rate: 82 P: 52 NE: 181 QRS: 42 QRSD: 83 T: -15 QT: 443 QTc: 518 Interpretive Statements Sinus rhythm Low voltage, precordial leads Borderline T abnormalities, diffuse leads Prolonged QT interval Electronically Signed On 05-21-2020 17:07:18 E DT by Lela Grajeda [facility] Results From Merge/Epiphany - 05/21/2020 5:08 PM EDT [facility], [place] Test Date: 2020-05-20 Pat Name: Ever Mckeon Department: 1A5W Room: [facility] Gender: F 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1970 Requested By: LUZ MARIA GARCIA Order Number: [id number] Reading MD: Lela Grajeda Measurements Intervals [place] Rate: 82 P: 52 NE: 181 QRS: 42 QRSD: 83 T: -15 QT: 443 QTc: 518 Interpretive Statements Sinus rhythm Low voltage, precordial leads Borderline T abnormalities, diffuse leads Prolonged QT interval Electronically Signed On 05-21-2020 17:07:18 EDT by Ector Grajeda Glucose, Body Fluid on 05-21-2020 Glucose, Body Fluid 25 mg/dL No Range [facility], [place] Sodium [Moles/Vol] Acites [facility], [place] Test Performed by [place] System, [address] [place] [address] Gram stain on 05-21-2020 INR Coag (Bld) [Relative Many polymorphonuclear cells/lpf. [place], [place] time] No organisms seen. Cytocentrifugation performed. Microscopic observation and enumeration of white blood cells should be confirmed b Cell Count with Differential. Test Performed by [place] System, [address] [place] [address] Specimen Source Comment:Ascitic Fluid Hepatic Function Panel on 05-21-2020 Albumin [Mass/Vol] 2.5 g/dL Low 3.5 - 5 g/dL [place], [place] ALP [Catalytic activity/Vol] 124 U/L 38 - 126 U/L [place], [place] ALT [Catalytic activity/Vol] 12 U/L 0 - 34 U/L [place], [place] Comment on above: The ALT test is performed by an updated assay method. Please note that the referen ce intervals have been changed and are now sex spec ific. AST [Catalytic 45 U/L 15 - 46 U/L [facility], activity/Vol] [place] Bilirubin Ql (U) 1.0 mg/dL 0.2 - 1.3 mg/dL [place], [place] Bilirubin.direct [Mass/Vol] 0.0 mg/dL 0 - 0.3 mg/dL [place], [place] Interpretation and review Abnormal [facility], of laboratory results [place] Protein [Mass/Vol] 6.3 g/dL 6.3 - 8.2 g/dL [place], [place] Test Performed by [facility], [place], [place] [address] [place] [address] Lactate Dehydrogenase, Body Fluid on LD, Fluid 992 U/L No Range [place], [place] Magnesium on 05-21-2020 Magnesium [Mass/Vol] 2.1 mg/dL 1.6 - 2.3 mg/dL [place], [place] Test Performed by [place] Health System, [address] [place] [address] Manual Differential on 05-21-2020 Absolute Baso # 0.1 10*3/uL 0 - 0.2 10*3/uL [facility] [place] [place] Absolute Eos # 0.1 10*3/uL 0 - 0.5 10*3/uL [facility] [place], [place] Absolute Lymph # 0.9 10*3/uL Low 1.1 - 4.5 10*3/uL [facility] [place], [place] Absolute [place] # 0.5 10*3/uL 0.2 - 1.1 10*3/uL [...] [facility] [place], [place] Interpretation and Abnormal [facility]- review of laboratory [place], [place] results Lymphocytes 11 % Low 20 - 40 % [facility] [place] Monocytes 6 % 2 - 10 % [facility] [place] Myelocytes 1 % Abnormal <1 [facility] [place] Ovalocytes Slight [facility] [place] Poikilocytes Slight [facility] [place] Polychromasia Slight [facility] [place] RBC morphology finding ABNORMAL [facility]- Nom (Bld) [place], [place] Seg Neutrophils 75 % 40 - 80 % [facility] [place], [place] Stomatocytes Slight [facility] [place] TOTAL CELLS COUNTED 100 [facility] [place], [place] Toxic Granulation Slight [facility] [place] TOXIC VACUOLES Slight [facility]- [place], [place] Test Performed by [facility] [place], [place] System, [address] [place] [address] Other on 05-21-2020 Test Performed by [facility], [address] [facility] [place], [place] [address] Test Performed by [employer], [address] [facility] [place], [place] [address] Total Protein, Fluid on 05-21-2020 Protein, body fluid 4.0 g/dL No Range [place], [place] Troponin on 05-21-2020 Troponin I.cardiac [Mass/Vol] ng/mL 0 - 0.034 n g/mL [place], [place] Comment on above: . Test Performed by [facility] [employer], [address] [facility], [place] [address] Add On Lab Test on 05-20-2020 Sodium [Moles/Vol] Accepted [place], [place] Comment on above: Specimen available & accepta ble for analysis. Test Performed by [facility], [address] [facility], [place] [address] Basic Metabolic Panel w/ Reflex to MG o n 05-20-2020 Anion gap [Moles/Vol] 8 mmol/L [place], [place] Calcium [Mass/Vol] 8.5 mg/dL 8.4 - 10.4 mg/dL [place], [place] Chloride [Moles/Vol] 100 mmol/L 98 - 107 mmol/L [place], [place] CO2 [Moles/Vol] 26 mmol/L 22 - 30 mmol/L [place], [place] Creatinine [Mass/Vol] 0.5 mg/dL Low 0.52 - 1.25 mg/dL [place] EGFR IF NonAfrican [place] >90.0 >60 mL/min [place], [place] Comment on above: KDIGO guidelines provide [...] neither GFR category G1 nor G2 fulfill [facility] criteria for CKD. The CKD-EPI equation is [...] GFR/1.73 sq M predicted mL/min/{1.73_m2} >60 mL/min [facility]- among blacks MDRD [place], [place] (S/P/Bld) [Vol rate/Area] Glucose [Mass/Vol] 75 mg/dL 70 - 100 mg/dL [place], [place] Interpretation and Abnormal [facility]- review of laboratory [place], [place] results Potassium [Moles/Vol] 3.2 mmol/L Low 3.5 - 5.1 [facility]- mmol/L [place], [place] Sodium [Moles/Vol] 133 mmol/L Low 135 - 145 [facility]- mmol/L [place], [place] Urea nitrogen [Mass/Vol] 9 mg/dL 7 - 20 mg/dL [facility], [place] Test Performed by [facility], [address], [place] [address] CBC Auto Differential on 05-20-2020 Absolute Baso # 0.0 10*3/uL 0 - 0.2 10*3/uL [facility], [place] Absolute Neut # 5.6 10*3/uL 1.8 - 7 10*3/uL [facility], [place] Basophils/100 WBC (Bld) 0.4 % 0 - 2 % [facility], [place] Eosinophils (Bld) [#/Vol] 0.1 10*3/uL 0 - 0.5 10*3/uL [facility], [place] Eosinophils/100 WBC (Bld) 1.3 % 1 - 6 % [facility], [place] Erythrocyte distribution 15.3 % High 11.5 - 14.5 % [facility], width (RBC) [Ratio] [place] Granulocytes/100 WBC 66.5 % 40 - 80 % [facility], (Bld) [place] Hematocrit (Bld) [Volume 31.1 % Low 35 - 47 % [facility], fraction] [place] Hemoglobin (Bld) 10.6 g/dL Low 11.7 - 16 g/dL [facility], [Mass/Vol] [place] Interpretation and review Abnormal [facility], of laboratory results [place] Lymphocytes (Bld) [#/Vol] 1.3 10*3/uL 1 - 4.3 10*3/uL [place], [place] Lymphocytes/100 WBC (Bld) 15.4 % Low 20 - 40 % [place] MCH (RBC) [Entitic mass] 30.5 pg 26 - 34 pg [place], [place] MCHC (RBC) [Mass/Vol] 34.2 % 32 - 36 % [place], [place] MCV (RBC) [Entitic vol] 89.2 fL 79 - 98 fL [place], [place] Monocytes (Bld) [#/Vol] 1.4 10*3/uL High 0 - 0.8 10*3/uL [place] Monocytes/100 WBC (Bld) 16.4 % High 2 - 10 % [place], [place] Platelet mean volume 7.2 fL Low 7.4 - 10.4 fL [facility], (Bld) [Entitic vol] [place] Platelets (Bld) [#/Vol] 181 10*3/uL 140 - 440 10*3/uL [place], [place] RBC (Bld) [#/Vol] 3.48 10*6/uL Low 3.8 - 5.2 10*6/uL [place] WBC (Bld) [#/Vol] 8.4 10*3/uL 3.6 - 10.7 10*3/uL [place], [place] Test Performed by [facility], [place], [place] [address] [place] [address] Culture, Blood 1 on 05-20-2020 Blood Culture, Routine No growth at 5 days. [place], [place] Test Performed by [place] System, [address] [place] [address] Specimen Source Comment:Blood Culture, Blood 2 on 05-20-2020 Blood Culture, Routine No growth at 5 days. [place], [place] Test Performed by [place] System, [address] [place] [address] Specimen Source Comment:Blood Magnesium on 05-20-2020 Magnesium [Mass/Vol] 2.1 mg/dL 1.6 - 2.3 mg/dL [place], [place] Test Performed by [place] [employer] [facility], [address] [place] [address] PROTIME INR on 05-20-2020 INR Coag (PPP) [Relative time] 1.7 {INR} High [place], [place] Comment on above: Recommended Anticoagulant Th [...] Infarction Interpretation and review of laboratory Abnormal [place], [place] results PT Coag (PPP) [Time] 18.2 s High 9 - 12 s [place], [place] Comment on above: . Test Performed by [facility], [address] [place] [address] Procalcitonin on 05-20-2020 Interpretation and review of laboratory Abnormal [place], [place] results Procalcitonin 0.3 ng/mL Abnormal <0.10 [place], [place] Sodium [Moles/Vol] See Below [employer] [place], [place] Comment on above: PCT <0.50 = Low risk of haris re sepsis and/or septic shock. PCT >2.00 = High risk of sev ere sepsis and/or septic shock. Test Performed by [employer], [place] [address] VITAMIN D 25 HYDROXY on 05-20-2020 Interpretation and review of Abnormal [place], [place] laboratory results Vit D, 25-Hydroxy 14 ng/mL Low 30 - 100 ng/mL [place], [place] Comment on above: Therapy is based on measurem ent of Total 25-OHD with the following classification lev els: Less than 20 ng/mL: Indicati ve of Vit D deficiency 20-30 ng/mL: Suggests Vit D insufficiency Optimal: Greater than or equ al to 30 ng/mL Test performed by [employer] Immuno[employer], measuring Total Vitamin D, n ot individual fractions. Test Performed by [email or web address] [facility], [address], [facility], [place], [place] [address] Add On Lab Test on 05-19-2020 Sodium [Moles/Vol] Accepted [place], [place] Comment on above: Specimen available & accepta ble for analysis. Test Performed by [facility], [address] [facility], [place] [address] Ammonia on 05-19-2020 Ammonia (P) [Mass/Vol] 37 umol/L High 9 - 30 umol/L [place], [place] Interpretation and review Abnormal [facility], of laboratory results [place] Test Performed by [facility], [facility], [place] [address] [place] [address] Basic Metabolic Panel w/ Reflex to MG o n 05-19-2020 Anion gap [Moles/Vol] 8 mmol/L [place] Calcium [Mass/Vol] 8.3 mg/dL Low 8.4 - 10.4 mg/dL [place], [place] Chloride [Moles/Vol] 100 mmol/L 98 - 107 mmol/L [place], [place] CO2 [Moles/Vol] 24 mmol/L 22 - 30 mmol/L [place], [place] Creatinine [Mass/Vol] 0.53 mg/dL 0.52 - 1.25 mg/dL [place] EGFR IF NonAfrican [place] >90.0 >60 mL/min [place] Comment on above: KDIGO guidelines provide [...] criteria for CKD. The CKD-EPI equation is arjesh dated in individuals 18 years of age [...] GFR/1.73 sq M predicted mL/min/{1.73_m2} >60 mL/min [facility]- among blacks MDRD [place], [place] (S/P/Bld) [Vol rate/Area] Glucose [Mass/Vol] 91 mg/dL 70 - 100 mg/dL [place], [place] Interpretation and Abnormal [facility]- review of laboratory [place], [place] results Potassium [Moles/Vol] 3.5 mmol/L 3.5 - 5.1 [facility]- mmol/L [place], [place] Sodium [Moles/Vol] 131 mmol/L Low 135 - 145 [facility]- mmol/L [place], [place] Urea nitrogen [Mass/Vol] 9 mg/dL 7 - 20 mg/dL [place], [place] Test Performed by [facility], [address] [place], [place] [address] CBC Auto Differential on 05-19-2020 Absolute Baso # 0.0 10*3/uL 0 - 0.2 10*3/uL [place], [place] Absolute Neut # 7.0 10*3/uL 1.8 - 7 10*3/uL [place], [place] Basophils/100 WBC (Bld) 0.3 % 0 - 2 % [place], [place] Eosinophils (Bld) [#/Vol] 0.1 10*3/uL 0 - 0.5 10*3/uL [place], [place] Eosinophils/100 WBC (Bld) 0.7 % Low 1 - 6 % [place] Erythrocyte distribution 14.8 % High 11.5 - 14.5 % [facility], width (RBC) [Ratio] [place] Granulocytes/100 WBC 71.5 % 40 - 80 % [facility], (Bld) [place] Hematocrit (Bld) [Volume 30.7 % Low 35 - 47 % [facility], fraction] [place] Hemoglobin (Bld) 10.3 g/dL Low 11.7 - 16 g/dL [facility], [Mass/Vol] [place] Interpretation and review Abnormal [facility], of laboratory results [place] Lymphocytes (Bld) [#/Vol] 1.3 10*3/uL 1 - 4.3 10*3/uL [place] Lymphocytes/100 WBC (Bld) 12.8 % Low 20 - 40 % [place] MCH (RBC) [Entitic mass] 30.0 pg 26 - 34 pg [facility], [place] MCHC (RBC) [Mass/Vol] 33.7 % 32 - 36 % [place], [place] MCV (RBC) [Entitic vol] 89.0 fL 79 - 98 fL [place], [place] Monocytes (Bld) [#/Vol] 1.4 10*3/uL High 0 - 0.8 10*3/uL [facility], [place] Monocytes/100 WBC (Bld) 14.7 % High 2 - 10 % [place], [place] Platelet mean volume 7.1 fL Low 7.4 - 10.4 fL [facility], (Bld) [Entitic vol] NE Platelets (Bld) [#/Vol] 195 10*3/uL 140 - 440 10*3/uL [place], [place] RBC (Bld) [#/Vol] 3.45 10*6/uL Low 3.8 - 5.2 10*6/uL [facility], [place] WBC (Bld) [#/Vol] 10.0 10*3/uL 3.6 - 10.7 10*3/uL [place] Test Performed by [facility], [facility], [address] [address] [address] ABDOMEN PELVIS W CONTRAST on Patient Name: EVER MCKEON FIN: [place], [place] [id number] ---CT--- Exam Date/Time 05/19/2020 17:24: [address] Abdomen/Pelvis w/ IV Contrast (IV Onl [facility] Physician MD RADHA, [facility] Accession Number [id number] CPT4 Codes 75183 (CT Abdomen/Pelvis w/ I V Contrast (IV Onl), Q9967 (CT ISOVUE 370MG/ML&[id number]&ML&1) Reason For Exam abdominal p ain Report [...] 5:48 Ricky, [facility] Incoming Radiology Results From [facility] - 5:59 PM EDT [place] Patient Name: EVER MCKEON ---CT--- Exam Date/Time 05/19/2020 17:24:[address] Abdomen/Pelvis w/ IV Contrast (IV Onl Ordering Physician MD RADHACOX MONETT Accession Number [id number] CPT4 Codes 96071 (CT Abdomen/Pelvis w/ IV Contrast (IV Onl), Q996 7 (CT ISOVUE 370MG/ML&[id number]&ML&1) Reason For Exam abdominal pain Report CT [...] Aerobic Culture No growth at 3 days. [employer] INR Coag (Bld) [Relative Many polymorphonuclear cells/lpf. [employer] time] No organisms seen. 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1970 Requested By: LUZ MARIA GARCIA Order Number: [id number] Reading MD: Chriss Kimbrough Measurements Intervals [place] Rate: 93 P: 73 NE: 180 QRS: 38 QRSD: 98 T: -27 QT: 405 QTc: 504 Interpretive Statements Sinus rhythm Ventricular premature complex Low voltage, precordial leads Borderline T abnormalities, diffuse leads Borderline prolonged QT interval Electronically Signed On 05-19-2020 16:31:45 EDT by Brendan Kimbrough [facility] Test Date: 2020-05-18 [facility]: [facility] Room: 1539 [facility] er: F 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 Machine 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: CHRIS : 1970 Requested By: PAU GARCIA Order Number: [id number] Reading MD: Chriss Kimbrough Measurements Intervals [place] Rate: 93 P: 73 NE: 180 QRS : 38 QRSD: 98 T: -27 QT: 405 QTc: 504 Interpretive Stateme nts Sinus rhythm Ventricular premature complex Low voltage , precordial leads Borderline T abnormalities, diffuse l adrian Borderline prolonged QT interval Magnesium [Mass/Vol] 2.0 mg/dL 1.6 - 2.3 mg/dL [facility] [employer] Test Performed by [facility] [employer] [facility] [employer] System, [facility] [place] [address] TSH without Reflex on 05-19-2020 TSH Qn 2.695 u[IU]/mL 0.465 - 4.68 u[IU]/mL [facility] [employer] Test Performed by [facility] [employer] [facility], [facility] [employer] [place] [address] Vitamin B12 on 05-19-2020 Cobalamin (Vitamin B12) 927 pg/mL 239 - 931 pg/mL [facility] [place] [Mass/Vol] Test Performed by [facility], [address] [place] [address] Add On Lab Test on 05-18-2020 Ammonia (P) [Mass/Vol] Test Performed by [facility], [address] [place] [address] Lft added, unable to add ammonia- needs green top sent on ice. 05/18/2020 11:18 Sodium [Moles/Vol] see comment [place] Basic Metabolic Panel w/ Reflex to MG o n 05-18-2020 Anion gap [Moles/Vol] 9 mmol/L [place] Calcium [Mass/Vol] 8.3 mg/dL Low 8.4 - 10.4 mg/dL [place] Chloride [Moles/Vol] 99 mmol/L 98 - 107 mmol/L [place], [place] CO2 [Moles/Vol] 23 mmol/L 22 - 30 mmol/L [place], [place] Creatinine [Mass/Vol] 0.57 mg/dL 0.52 - 1.25 mg/dL [place] EGFR IF NonAfrican [place] >90.0 >60 mL/min [place], [place] Comment on above: KDIGO guidelines provide [...] (GFR) from serum creatinine in children is [facility] Bedside Kumar equation. It is less accurate in patie nts with extremes of muscle mass, restriction of dietary protein, ingestion of creatine, extra-renal metabolism of cr eatinine, or treatment with medications that affect sofía l tubular creatinine secretion. GFR/1.73 sq M predicted mL/min/{1.73_m2} >60 mL/min [facility]- among blacks MDRD [place] (S/P/Bld) [Vol rate/Area] Glucose [Mass/Vol] 92 mg/dL 70 - 100 mg/dL [place], [place] Interpretation and Abnormal [facility]- review of laboratory [place], [place] results Potassium [Moles/Vol] 3.4 mmol/L Low 3.5 - 5.1 [facility]- mmol/L [place], [place] Sodium [Moles/Vol] 131 mmol/L Low 135 - 145 [facility]- mmol/L [place] Urea nitrogen [Mass/Vol] 11 mg/dL 7 - 20 mg/dL [facility], [place] Test Performed by [facility] [place] [address] CBC Auto Differential on 05-18-2020 Absolute Baso # 0.1 10*3/uL 0 - 0.2 10*3/uL [place] Absolute Neut # 7.7 10*3/uL High 1.8 - 7 10*3/uL [place] Basophils/100 WBC (Bld) 0.6 % 0 - 2 % [place], [place] Eosinophils (Bld) [#/Vol] 0.1 10*3/uL 0 - 0.5 10*3/uL [place] Eosinophils/100 WBC (Bld) 0.8 % Low 1 - 6 % [facility], [place] Erythrocyte distribution 14.9 % High 11.5 - 14.5 % [facility], width (RBC) [Ratio] [place] Granulocytes/100 WBC 75.8 % 40 - 80 % [facility], (Bld) [place] Hematocrit (Bld) [Volume 30.3 % Low 35 - 47 % [facility], fraction] [place] Hemoglobin (Bld) 10.3 g/dL Low 11.7 - 16 g/dL [facility], [Mass/Vol] [place] Interpretation and review Abnormal [facility], of laboratory results [place] Lymphocytes (Bld) [#/Vol] 1.2 10*3/uL 1 - 4.3 10*3/uL [place], [place] Lymphocytes/100 WBC (Bld) 11.7 % Low 20 - 40 % [place] MCH (RBC) [Entitic mass] 30.7 pg 26 - 34 pg [place], [place] MCHC (RBC) [Mass/Vol] 34.1 % 32 - 36 % [place], [place] MCV (RBC) [Entitic vol] 90.1 fL 79 - 98 fL [place], [place] Monocytes (Bld) [#/Vol] 1.1 10*3/uL High 0 - 0.8 10*3/uL [place], [place] Monocytes/100 WBC (Bld) 11.1 % High 2 - 10 % [place], [place] Platelet mean volume 7.3 fL Low 7.4 - 10.4 fL [facility], (Bld) [Entitic vol] [place] Platelets (Bld) [#/Vol] 187 10*3/uL 140 - 440 10*3/uL [place], [place] RBC (Bld) [#/Vol] 3.36 10*6/uL Low 3.8 - 5.2 10*6/uL [place], [place] WBC (Bld) [#/Vol] 10.1 10*3/uL 3.6 - 10.7 10*3/uL [place] Test Performed by [address] [address] Hepatic Function Panel on 05-18-2020 Albumin [Mass/Vol] 2.5 g/dL Low 3.5 - 5 g/dL [place], [place] ALP [Catalytic activity/Vol] 134 U/L High 38 - 126 U/L [place], [place] ALT [Catalytic activity/Vol] 12 U/L 0 - 34 U/L [place] Comment on above: The ALT test is performed by an updated assay method. Please note that the referen ce intervals have been changed and are now sex spec ific. AST [Catalytic 31 U/L 15 - 46 U/L [facility], activity/Vol] [place] Bilirubin Ql (U) 0.9 mg/dL 0.2 - 1.3 mg/dL [place], [place] Bilirubin.direct 0.0 mg/dL 0 - 0.3 mg/dL [facility], [Mass/Vol] [place] Interpretation and review Abnormal [facility], of laboratory results [place] Protein [Mass/Vol] 6.1 g/dL Low 6.3 - 8.2 g/dL [place], [place] Test Performed by [facility], [facility], [place] [address] [place] [address] Magnesium on 05-18-2020 Magnesium [Mass/Vol] 1.9 mg/dL 1.6 - 2.3 mg/dL [place], [place] Test Performed by [facility], [facility] [place] [address] [place] [address] Basic Metabolic Panel w/ Reflex to MG o n 05-17-2020 Anion gap [Moles/Vol] 11 mmol/L [place], [place] Calcium [Mass/Vol] 8.4 mg/dL 8.4 - 10.4 mg/dL [place], [place] Chloride [Moles/Vol] 98 mmol/L 98 - 107 mmol/L [place], [place] CO2 [Moles/Vol] 22 mmol/L 22 - 30 mmol/L [place], [place] Creatinine [Mass/Vol] 0.6 mg/dL 0.52 - 1.25 mg/dL [place], [place] EGFR IF NonAfrican [place] >90.0 >60 mL/min [place], [place] Comment on above: KDIGO guidelines provide [...] (GFR) from serum creatinine in children is [facility] Bedside Kumar equation. It is less accurate in patie nts with extremes of muscle mass, restriction of dietary protein, ingestion of creatine, extra-renal metabolism of cr eatinine, or treatment with medications that affect sofía l tubular creatinine secretion. GFR/1.73 sq M predicted mL/min/{1.73_m2} >60 mL/min [facility]- among blacks MDRD [place] (S/P/Bld) [Vol rate/Area] Glucose [Mass/Vol] 86 mg/dL 70 - 100 mg/dL [place], [place] Interpretation and Abnormal [facility]- review of laboratory [place], [place] results Potassium [Moles/Vol] 3.5 mmol/L 3.5 - 5.1 [facility]- mmol/L [place], [place] Sodium [Moles/Vol] 131 mmol/L Low 135 - 145 [facility]- mmol/L [place], [place] Urea nitrogen [Mass/Vol] 11 mg/dL 7 - 20 mg/dL [facility], [place] Test Performed by [facility], [address] [place] [address] CBC Auto Differential on 05-17-2020 Absolute Baso # 0.1 10*3/uL 0 - 0.2 10*3/uL [place] Absolute Neut # 12.6 10*3/uL High 1.8 - 7 10*3/uL [place], [place] Basophils/100 WBC (Bld) 0.4 % 0 - 2 % [place], [place] Eosinophils (Bld) [#/Vol] 0.2 10*3/uL 0 - 0.5 10*3/uL [place] Eosinophils/100 WBC (Bld) 1.5 % 1 - 6 % [facility], [place] Erythrocyte distribution 14.7 % High 11.5 - 14.5 % [facility], width (RBC) [Ratio] [place] Granulocytes/100 WBC 78.8 % 40 - 80 % [facility], (Bld) [place] Hematocrit (Bld) [Volume 31.2 % Low 35 - 47 % [facility], fraction] [place] Hemoglobin (Bld) 10.5 g/dL Low 11.7 - 16 g/dL [facility], [Mass/Vol] [place] Interpretation and review Abnormal [facility], of laboratory results [place] Lymphocytes (Bld) [#/Vol] 1.6 10*3/uL 1 - 4.3 10*3/uL [place], [place] Lymphocytes/100 WBC (Bld) 9.9 % Low 20 - 40 % [place] MCH (RBC) [Entitic mass] 30.3 pg 26 - 34 pg [place], [place] MCHC (RBC) [Mass/Vol] 33.5 % 32 - 36 % [place], [place] MCV (RBC) [Entitic vol] 90.4 fL 79 - 98 fL [place], [place] Monocytes (Bld) [#/Vol] 1.5 10*3/uL High 0 - 0.8 10*3/uL [place], [place] Monocytes/100 WBC (Bld) 9.4 % 2 - 10 % [place], [place] Platelet mean volume 7.7 fL 7.4 - 10.4 fL [facility], (Bld) [Entitic vol] [place] Platelets (Bld) [#/Vol] 192 10*3/uL 140 - 440 10*3/uL [place], [place] RBC (Bld) [#/Vol] 3.46 10*6/uL Low 3.8 - 5.2 10*6/uL [place], [place] WBC (Bld) [#/Vol] 15.9 10*3/uL High 3.6 - 10.7 10*3/uL [place], [place] Test Performed by [facility], [address] [address] Culture, Urine on 05-17-2020 Bacteria identified Cx Nom (U) No growth (<1,000 CFU/ml). 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1970 Requested By: WOLF DREW Order Number: [id number] Reading MD: Pineda oconnell Measurements Intervals [place] Rate: 97 P: 71 NE: 158 QRS: 24 QRSD: 100 T: 3 QT: 406 QTc: 516 Interpretive Statements Sinus rhythm Probable left atrial enlargement Nonspecific ST-T wave changes Prolonged QT interval Electronically Signed On 05-17-2020 17:15:48 EDT by José Gonzalez [facility] Test Date: 2020-05-15 Pat Name: Prateek schmid [facility] MONICA Mckeon Department: 1A Room: 1539 Gen jose: F Roofing Machine Tender: : 1970 Requested By: WOLF DREW Order Number: [id number] Reading MD: Pineda Gonzalez Measurements Intervals [place] Rate: 97 P: 7 1 NE: 158 QRS: 24 QRSD: 100 T: 3 QT: 406 QTc: 516 Interpretive Statements Sinus rhythm Probable left atr ial enlargement Nonspecific ST-T wave changes Prolonged QT interval Magnesium [Mass/Vol] 1.7 mg/dL 1.6 - 2.3 mg/dL [place], [place] Test Performed by [facility], [address] [place] [address] Add On Lab Test on 05-16-2020 Sodium [Moles/Vol] Accepted [place], [place] Comment on above: Specimen available & accepta ble for analysis. Basic Metabolic Panel w/ Reflex to MG o n 05-16-2020 Anion gap [Moles/Vol] 7 mmol/L [place], [place] Calcium [Mass/Vol] 7.9 mg/dL Low 8.4 - 10.4 mg/dL [place], [place] Chloride [Moles/Vol] 99 mmol/L 98 - 107 mmol/L [place], [place] CO2 [Moles/Vol] 24 mmol/L 22 - 30 mmol/L [place], [place] Creatinine [Mass/Vol] 0.57 mg/dL 0.52 - 1.25 mg/dL [place], [place] EGFR IF NonAfrican [place] >90.0 >60 mL/min [place], [place] Comment on above: KDIGO guidelines provide [...] neither GFR category G1 nor G2 fulfill [facility] criteria for CKD. The CKD-EPI equation is rajesh dated in individuals 18 years of age and older. Currently the best equation for estimating glomerular filtra tion rate (GFR) from serum creatinine in children is [facility] Bedside Kumar equation. It is less accurate in patie nts with extremes of muscle mass, restriction of dietary protein, ingestion of creatine, extra-renal metabolism of cr eatinine, or treatment with medications that affect sofía l tubular creatinine secretion. GFR/1.73 sq M predicted mL/min/{1.73_m2} >60 mL/min [facility]- among blacks MDRD [place] (S/P/Bld) [Vol rate/Area] Glucose [Mass/Vol] 79 mg/dL 70 - 100 mg/dL [place], [place] Interpretation and Abnormal [facility]- review of laboratory [place], [place] results Potassium [Moles/Vol] 3.4 mmol/L Low 3.5 - 5.1 [facility]- mmol/L [place], [place] Sodium [Moles/Vol] 131 mmol/L Low 135 - 145 [facility]- mmol/L [place], [place] Urea nitrogen [Mass/Vol] 10 mg/dL 7 - 20 mg/dL [place], [place] Test Performed by [facility], [address] [place], [place] [address] CBC on 05-16-2020 Erythrocyte distribution 14.4 % 11.5 - 14.5 % [facility] (RBC) [Ratio] [place] Hematocrit (Bld) [Volume 32.9 % Low 35 - 47 % [facility], fraction] [place] Hemoglobin (Bld) 10.9 g/dL Low 11.7 - 16 g/dL [facility], [Mass/Vol] [place] Interpretation and review Abnormal Me [facility], of laboratory results [place] MCH (RBC) [Entitic mass] 30.1 pg 26 - 34 pg [facility], [place] MCHC (RBC) [Mass/Vol] 33.1 % 32 - 36 % [facility], [place] MCV (RBC) [Entitic vol] 91.0 fL 79 - 98 fL [facility], [place] Platelet mean volume (Bld) 7.6 fL 7.4 - 10.4 fL [facility], [Entitic vol] [place] Platelets (Bld) [#/Vol] 206 10*3/uL 140 - 440 [facility], 10*3/uL [place] RBC (Bld) [#/Vol] 3.61 10*6/uL Low 3.8 - 5.2 [facility], 10*6/uL [place] WBC (Bld) [#/Vol] 21.0 10*3/uL High 3.6 - 10.7 [facility], 10*3/uL [place] Test Performed by [facility], [facility], [address] [address] [address] ABSCESS DRAIN PERITONEAL on 05-16-20 20 [facility] Incoming Radiology Results From [facility] - 4:36 PM EDT [place] Patient Name: EVER MCKEON ---CT--- Exam Date/Time 05/16/2020 14:57:[address] Drainage Peritoneal Ordering Physician MD ANTONELLA,ISAEL Dyson Accession Number [id number] CPT4 Codes 68973 (CT Drainage Peritoneal/Retroperitoneal), 55522 () Reason For Exam right pararenal/ hepatic [...] moder ate sedation time was [address] scans were obtained with the patient [...] serial dilators, and then a n 8 Burmese pigtail drain was placed into the collection [...] 05/16/2020 4:33 Patient Name: EVER MCKEON FIN: [place], [place] [id number] ---CT--- Exam Date/Time 05/16/2020 14:57: [address] Drainage Peritoneal Ordering Physician MD ANTONELLA,ISAEL Dyson Accession Number [id number] PT4 Codes 18748 (CT Drainage Peritoneal/Retroperitoneal), 93122 () Reason For Exam right pararenal/ hepatic [...] moder ate sedation time was [address] scans were obta ined with the [...] with serial dilators, and then an 8 Burmese pig tail drain was placed into the [...] [Moles/Vol] 1.7 mmol/L 0.7 - 2 mmol/L [employer] [place] Test Performed by [facility], [place] [facility] [place] [address] Legionella Antigen, Urine on 05-16-2020 LEGIONELLA ANTIGEN Legionella antigen NOT DETECTED. [employer] [place] Magnesium on 05-16-2020 Magnesium [Mass/Vol] 1.7 mg/dL 1.6 - 2.3 mg/dL [facility] [employer] [place], [place] Other on 05-16-2020 Test Performed by [facility] [address] [place] [address] Test Performed by [facility] [address] [place] [address] Specimen Source Comment:Urine, clean c atch Procalcitonin on 05-16-2020 Interpretation and review of Abnormal [place], [place] laboratory results Procalcitonin 1.13 ng/mL Abnormal <0.10 [place], [place] Sodium [Moles/Vol] See Below [place] [place], [place] Comment on above: PCT <0.50 = Low risk of haris re sepsis and/or septic shock. PCT >2.00 = High risk of sev ere sepsis and/or septic shock. Test Performed by [facility] [address] [place] [address] Respiratory Virus PCR Panel on 05-16-20 20 Respiratory Panel PCR NEGATIVE: No targets were detected by the [employer] [place], [place] Respiratory Pathogens PCR Panel. PLEASE NOTE: This assay DOES NOT detect SARS-CoV-2/COV ID-19. _ The [employer] [place] Respiratory Pathogens PCR Panel can detect the following targets: Adenovirus, Coronavirus 229E, Coronavirus HKU1, Coronavirus NL63, Coronavirus OC43, Human Metapneumovirus, Human Rhinovirus/Enterovirus, Influenza A, Influenza B, Parainfluenza Virus 1, Parainfluenza Virus 2, Parainfluenza Virus 3, Parainfluenza Virus 4, Respiratory Syncytial Virus, Bordetella pertussis, Bordetella parapertussis, Chlamydia pneumoniae, Mycoplasma pneumoniae Test Performed by [facility], [place], [place] [address] [place] [address] Specimen Source Comment:Nasopharyngeal STREP PNEUMONIAE ANTIGEN on 05-16-2020 Interpretation and review of Abnormal [place] laboratory results STREP PNEUMONIAE ANTIGEN, Strep pneumo antigen Abnormal [place], [place] URINE DETECTED. Basic Metabolic Panel on 05-15-2020 Anion gap [Moles/Vol] 9 mmol/L [place], [place] Calcium [Mass/Vol] 8.4 mg/dL 8.4 - 10.4 mg/dL [place], [place] Chloride [Moles/Vol] 97 mmol/L Low 98 - 107 mmol/L [place], [place] CO2 [Moles/Vol] 24 mmol/L 22 - 30 mmol/L [place], [place] Creatinine [Mass/Vol] 0.51 mg/dL Low 0.52 - 1.25 mg/dL [place], [place] EGFR IF NonAfrican [place] >90.0 >60 mL/min [place], [place] Comment on above: KDIGO guidelines provide [...] (GFR) from serum creatinine in children is [facility] Bedside Kumar equation. It is less accurate in patie nts with extremes of muscle mass, restriction of dietary protein, ingestion of creatine, extra-renal metabolism of cr eatinine, or treatment with medications that affect sofía l tubular creatinine secretion. GFR/1.73 sq M predicted mL/min/{1.73_m2} >60 mL/min [place] among blacks MDRD (S/P/Bld) [Vol rate/Area] Glucose [Mass/Vol] 151 mg/dL High 70 - 100 mg/dL [place], [place] Potassium [Moles/Vol] 3.5 mmol/L 3.5 - 5.1 mmol/L [place], [place] Sodium [Moles/Vol] 131 mmol/L Low 135 - 145 mmol/L [place], [place] Urea nitrogen [Mass/Vol] 9 mg/dL 7 - 20 mg/dL [place], [place] CT ABDOMEN PELVIS W CONTRAST on 020 Patient Name: EVER MCKEON FIN: [place], [place] [id number] ---CT--- Exam Date/Time 05/15/2020 21:31: [address] Abdomen/Pelvis w/ IV Contrast (IV Onl Orde ring Physician MD JORGE, AYSHA Blank Accession Number [id number] CPT4 Codes 28877 (CT Abdomen/Pelvis w/ I V Contrast (IV Onl), Q9967 (CT ISOVUE 370MG/ML&[id number]&ML&1) Reason For Exam abdominal p ain and [...] Results From [facility] - 9:41 PM EDT [place], [place] Patient Name: EVER MCKEON ---CT--- Exam Date/Time 05/15/2020 21:31:[address] Abdomen/Pelvis w/ IV Contrast (IV Onl Ordering Physician MD JORGE, AYSHA D Accession Number [id number] CPT4 Codes 63308 (CT Abdomen/Pelvis w/ IV Contrast (IV Onl), Q996 7 (CT ISOVUE 370MG/ML&[id number]&ML&1) Reason For Exam abdominal pain and fever [...] 10*3/uL 0 - 0.2 10*3/uL [facility], [place] Absolute Neut # 20.7 10*3/uL High 1.8 - 7 10*3/uL [facility], [place] Basophils/100 WBC (Bld) 0.4 % 0 - 2 % [place], [place] Eosinophils (Bld) [#/Vol] 0.0 10*3/uL 0 - 0.5 10*3/uL [facility], [place] Eosinophils/100 WBC (Bld) 0.2 % Low 1 - 6 % [facility], [place] Erythrocyte distribution 14.7 % High 11.5 - 14.5 % [facility], width (RBC) [Ratio] [place] Granulocytes/100 WBC 86.1 % High 40 - 80 % [facility], (Bld) [place] Hematocrit (Bld) [Volume 36.9 % 35 - 47 % [facility], fraction] [place] Hemoglobin (Bld) 12.4 g/dL 11.7 - 16 g/dL [facility], [Mass/Vol] [place] Interpretation and review Abnormal [facility], of laboratory results [place] Lymphocytes (Bld) [#/Vol] 1.7 10*3/uL 1 - 4.3 10*3/uL [facility], [place] Lymphocytes/100 WBC (Bld) 7.3 % Low 20 - 40 % [facility], [place] MCH (RBC) [Entitic mass] 30.0 pg 26 - 34 pg [facility], [place] MCHC (RBC) [Mass/Vol] 33.6 % 32 - 36 % [facility], [place] MCV (RBC) [Entitic vol] 89.4 fL 79 - 98 fL [place], [place] Monocytes (Bld) [#/Vol] 1.5 10*3/uL High 0 - 0.8 10*3/uL [facility], [place] Monocytes/100 WBC (Bld) 6.0 % 2 - 10 % [facility], [place] Platelet mean volume 7.3 fL Low 7.4 - 10.4 fL [facility], (Bld) [Entitic vol] [place] Platelets (Bld) [#/Vol] 268 10*3/uL 140 - 440 10*3/uL [facility], [place] RBC (Bld) [#/Vol] 4.13 10*6/uL 3.8 - 5.2 10*6/uL [facility], [place] WBC (Bld) [#/Vol] 24.0 10*3/uL High 3.6 - 10.7 10*3/uL [place], [place] Test Performed by [facility], [facility], [place] [address] [place] [address] Hepatic Function Panel on 05-15-2020 Albumin [Mass/Vol] 2.8 g/dL Low 3.5 - 5 g/dL [employer] [place], [place] ALP [Catalytic activity/Vol] 148 U/L High 38 - 126 U/L [place], [place] ALT [Catalytic activity/Vol] 15 U/L 0 - 34 U/L [place], [place] Comment on above: The ALT test is performed by an updated assay method. Please note that the referen ce intervals have been changed and are now sex spec ific. AST [Catalytic activity/Vol] 29 U/L 15 - 46 U/L [place], [place] Bilirubin Ql (U) 1.5 mg/dL High 0.2 - 1.3 mg/dL [place], [place] Bilirubin.direct [Mass/Vol] 0.0 mg/dL 0 - 0.3 mg/dL [place], [place] Interpretation and review of Abnormal [place], [place] laboratory results Protein [Mass/Vol] 6.7 g/dL 6.3 - 8.2 g/dL [place], [place] Lactic Acid, Plasma on 05-15-2020 Interpretation and review Abnormal [facility] laboratory results [place] Lactate [Moles/Vol] 3 mmol/L Critically high 0.7 - 2 mmol/L [place], [place] Comment on above: Critical Panic Lactate has f ivanna below the [facility] CCL/ED Panic Call Protocol. For [facility] ED patients ONLY the Lactate Levels greater than 2.0 and less than or equal to 4.0 mmol/L fall under the Panic Call Po licy. Test Performed by [facility], [place] [address] [place] [address] Lactate [Moles/Vol] 2.7 mmol/L Critically high 0.7 - 2 [facility] mmol/L [place] Comment on above: Critical Panic Lactate has f ivanna below the [facility] CCL/ED Panic Call Protocol. For [facility] ED patients ONLY the Lactate Levels greater than 2.0 and less than or equal to 4.0 mmol/L fall under the Panic Call Po licy. Lipase on 05-15-2020 Lipase [Catalytic activity/Vol] 39 U/L 23 - 300 U/L [place], [place] Other on 05-15-2020 Test Performed by [facility], [facility] [place] [address] Interpretation and review of Abnormal [place], [place] laboratory results Test Performed by [facility], [facility] [place] [address] Protime-INR on 05-15-2020 INR Coag (PPP) [Relative time] 1.5 {INR} High [place], [place] Comment on above: Recommended Anticoagulant Th [...] Infarction Interpretation and review of laboratory Abnormal [place], [place] results PT Coag (PPP) [Time] 15.5 s High 9 - 12 s [place], [place] Comment on above: . Test Performed by [facility], [facility] [address] [facility] [address] [place] [address] Urinalysis on 05-15-2020 Appearance (U) Clear Clear NA [place], [place] Comment on above: . Bacteria, UA Negative Negative /[HPF] [place], [place] Comment on above: . Bilirubin Urine Negative Negative mg/dL [place], [place] Comment on above: . Color (U) Yellow Lt. Yellow NA [place], [place] Comment on above: . Glucose, Ur Normal Normal (<70) mg/dL [employer] [place], [place] Comment on above: . Hyaline Casts, UA Negative Negative /[LPF] [place], [place] Comment on above: . Interpretation and review of Abnormal [place] laboratory results Ketones Ql (U) Negative Negative mg/dL [place], [place] Comment on above: . LEUKOCYTES, UA Negative Negative Mario/uL [place], [place] Comment on above: . Mucous Threads Few Negative /[LPF] [place], [place] Comment on above: . Nitrite, Urine Negative Negative NA [place], [place] Comment on above: . Occult Blood,Urine Negative Negative mg/dL [place], [place] Comment on above: . pH (U) 6.5 [pH] [place], [place] Comment on above: . Protein (U) [Mass/Vol] 10 mg/dL Abnormal Negative [place], [place] Comment on above: . RBC (U) [#/Vol] 0-2 0 - 2 /[HPF] [place], [place] Comment on above: . Specific Trilla, Urine >1.030 Abnormal [place], [place] Comment on above: . Squam Epithel, UA 11-25 Abnormal 3 - 5 /[HPF] [place], [place] Comment on above: . Urobilinogen, Urine 4 mg/dL Abnormal Normal (0-1) [place], [place] Comment on above: . WBC, UA 0-2 0 - 5 /[HPF] [place], [place] Comment on above: . Test Performed by [facility] [employer] [facility], [address] [place] [address] XR CHEST (2 VW) on 05-15-2020 Ricky, [facility] Incoming Radiology Results From [facility] - 6:47 PM EDT [place] Patient Name: EVER MCKEON ---Diagnostic Radiology--- Exam Date/Time 05/15/2020 18:41:40 EDT Exam CR Chest PA/LAT Ordering Physician WOLF DELGADO Accession Number [id number] CPT4 Codes 45844 () Reason For Exam sepsis Report Indication: [...] 05/15/2020 6:45 Patient Name: EVER MCKEON FIN: [place], [place] [id number] ---Diagnostic Radiology--- Exam Date/Time 05/15/2020 18:41:40 EDT Exam CR Chest PA/LAT Ordering Physician WOLF DELGADO Accession Number [id number] CPT4 Codes 21551 () Reason For Exam seps is Report [...] Lab Test on 05-11-2020 Sodium [Moles/Vol] Accepted [place] Comment on above: Specimen available & accepta ble for analysis. Test Performed by [email or web address] [facility], [address] [facility], [place] [address] Basic Metabolic Panel on 05-11-2020 Anion gap [Moles/Vol] 7 mmol/L [place] Calcium [Mass/Vol] 9.0 mg/dL 8.4 - 10.4 mg/dL [place] Chloride [Moles/Vol] 96 mmol/L Low 98 - 107 mmol/L [place] CO2 [Moles/Vol] 29 mmol/L 22 - 30 mmol/L [place], [place] Creatinine [Mass/Vol] 0.61 mg/dL 0.52 - 1.25 mg/dL [place] EGFR IF NonAfrican [place]ian >90.0 >60 mL/min [place] Comment on above: KDIGO guidelines provide [...] (GFR) from serum creatinine in children is [facility] Bedside Kumar equation. It is less accurate in patie nts with extremes of muscle mass, restriction of dietary protein, ingestion of creatine, extra-renal metabolism of cr eatinine, or treatment with medications that affect sofía l tubular creatinine secretion. GFR/1.73 sq M predicted mL/min/{1.73_m2} >60 mL/min [facility] among blacks MDRD [place] (S/P/Bld) [Vol rate/Area] Glucose [Mass/Vol] 115 mg/dL High 70 - 100 mg/dL [place], [place] Interpretation and Abnormal [facility]- review of laboratory [place] results Potassium [Moles/Vol] 3.7 mmol/L 3.5 - 5.1 [facility]- mmol/L [place] Sodium [Moles/Vol] 132 mmol/L Low 135 - 145 [facility]- mmol/L [place] Urea nitrogen [Mass/Vol] 8 mg/dL 7 - 20 mg/dL [place] Test Performed by [facility], [address] [place], [place] [address] C-Reactive Protein on 05-11-2020 CRP [Mass/Vol] 210 mg/L High 0 - 6 mg/L [place] Comment on above: . Interpretation and review of Abnormal [place] laboratory results Test Performed by [facility], [address] [place] [address] CBC Auto Differential on 05-11-2020 Absolute Baso # 0.1 10*3/uL 0 - 0.2 10*3/uL [place] Absolute Neut # 6.1 10*3/uL 1.8 - 7 10*3/uL [facility], [place] Basophils/100 WBC (Bld) 0.7 % 0 - 2 % [place], [place] Eosinophils (Bld) [#/Vol] 0.2 10*3/uL 0 - 0.5 10*3/uL [place] Eosinophils/100 WBC (Bld) 2.2 % 1 - 6 % [place] Erythrocyte distribution 13.9 % 11.5 - 14.5 % [facility] width (RBC) [Ratio] NE Granulocytes/100 WBC 69.3 % 40 - 80 % [facility], (Bld) NE Hematocrit (Bld) [Volume 34.2 % Low 35 - 47 % [facility], fraction] NE Hemoglobin (Bld) 11.6 g/dL Low 11.7 - 16 g/dL [facility], [Mass/Vol] [place] Interpretation and review Abnormal [facility], of laboratory results [place] Lymphocytes (Bld) [#/Vol] 1.3 10*3/uL 1 - 4.3 10*3/uL [place] Lymphocytes/100 WBC (Bld) 14.8 % Low 20 - 40 % [place] MCH (RBC) [Entitic mass] 30.3 pg 26 - 34 pg [place] MCHC (RBC) [Mass/Vol] 33.8 % 32 - 36 % [place] MCV (RBC) [Entitic vol] 89.8 fL 79 - 98 fL [place], [place] Monocytes (Bld) [#/Vol] 1.1 10*3/uL High 0 - 0.8 10*3/uL [place] Monocytes/100 WBC (Bld) 13.0 % High 2 - 10 % [place] Platelet mean volume 8.0 fL 7.4 - 10.4 fL [facility], (Bld) [Entitic vol] NE Platelets (Bld) [#/Vol] 245 10*3/uL 140 - 440 10*3/uL [place] RBC (Bld) [#/Vol] 3.81 10*6/uL 3.8 - 5.2 10*6/uL [place], [place] WBC (Bld) [#/Vol] 8.8 10*3/uL 3.6 - 10.7 10*3/uL [place] Test Performed by [place] [address] [place] [address] Procalcitonin on 05-11-2020 Interpretation and review of Abnormal [place] laboratory results Procalcitonin 0.32 ng/mL Abnormal <0.10 [place] Sodium [Moles/Vol] See Below [employer] [place] Comment on above: PCT <0.50 = Low risk of haris re sepsis and/or septic shock. PCT >2.00 = High risk of sev ere sepsis and/or septic shock. Test Performed by [place] [address], [place] [address] Sedimentation Rate on 05-11-2020 Interpretation and review Abnormal [facility] laboratory results NE Sed Rate 71 mm/h High 0 - 20 mm/h [place], [place] Test Performed by [place] [address] [place] [address] Add On Lab Test on 05-10-2020 Sodium [Moles/Vol] Accepted [place] Comment on above: Specimen available & accepta ble for analysis. Test Performed by [facility] [employer] [place] [address] [place] [address] Basic Metabolic Panel on 05-10-2020 Anion gap [Moles/Vol] 9 mmol/L [place] Calcium [Mass/Vol] 8.8 mg/dL 8.4 - 10.4 mg/dL [place] Chloride [Moles/Vol] 97 mmol/L Low 98 - 107 mmol/L [place], [place] CO2 [Moles/Vol] 25 mmol/L 22 - 30 mmol/L [place] Creatinine [Mass/Vol] 0.57 mg/dL 0.52 - 1.25 mg/dL [place] EGFR IF NonAfrican [place] >90.0 >60 mL/min [place] Comment on above: KDIGO guidelines provide [...] (GFR) from serum creatinine in children is [facility] Bedside Kumar equation. It is less accurate in patie nts with extremes of muscle mass, restriction of dietary protein, ingestion of creatine, extra-renal metabolism of cr eatinine, or treatment with medications that affect sofía l tubular creatinine secretion. GFR/1.73 sq M predicted mL/min/{1.73_m2} >60 mL/min [place] among blacks MDRD (S/P/Bld) [Vol rate/Area] Glucose [Mass/Vol] 104 mg/dL High 70 - 100 mg/dL [place], [place] Potassium [Moles/Vol] 3.7 mmol/L 3.5 - 5.1 mmol/L [place] Sodium [Moles/Vol] 131 mmol/L Low 135 - 145 mmol/L [place], [place] Urea nitrogen [Mass/Vol] 9 mg/dL 7 - 20 mg/dL [place] C-Reactive Protein on 05-10-2020 CRP [Mass/Vol] 246.1 mg/L High 0 - 6 mg/L [place] Comment on above: . Interpretation and review of Abnormal [place] laboratory results Test Performed by [facility], [address] [place] [address] CBC Auto Differential on 05-10-2020 Absolute Baso # 0.1 10*3/uL 0 - 0.2 10*3/uL [place] Absolute Neut # 7.2 10*3/uL High 1.8 - 7 10*3/uL [place] Basophils/100 WBC (Bld) 0.6 % 0 - 2 % [place], [place] Eosinophils (Bld) [#/Vol] 0.2 10*3/uL 0 - 0.5 10*3/uL [place] Eosinophils/100 WBC (Bld) 1.7 % 1 - 6 % [place] Erythrocyte distribution 13.7 % 11.5 - 14.5 % [facility] width (RBC) [Ratio] NE Granulocytes/100 WBC 68.8 % 40 - 80 % [facility], (Bld) NE Hematocrit (Bld) [Volume 33.3 % Low 35 - 47 % [facility], fraction] NE Hemoglobin (Bld) 11.4 g/dL Low 11.7 - 16 g/dL [facility], [Mass/Vol] NE Interpretation and review Abnormal [facility] of laboratory results NE Lymphocytes (Bld) [#/Vol] 1.7 10*3/uL 1 - 4.3 10*3/uL [place] Lymphocytes/100 WBC (Bld) 15.7 % Low 20 - 40 % [place] MCH (RBC) [Entitic mass] 30.5 pg 26 - 34 pg [place], [place] MCHC (RBC) [Mass/Vol] 34.2 % 32 - 36 % [place], [place] MCV (RBC) [Entitic vol] 89.4 fL 79 - 98 fL [place], [place] Monocytes (Bld) [#/Vol] 1.4 10*3/uL High 0 - 0.8 10*3/uL [place] Monocytes/100 WBC (Bld) 13.2 % High 2 - 10 % [place] Platelet mean volume 8.6 fL 7.4 - 10.4 fL [facility], (Bld) [Entitic vol] NE Platelets (Bld) [#/Vol] 248 10*3/uL 140 - 440 10*3/uL [place] RBC (Bld) [#/Vol] 3.72 10*6/uL Low 3.8 - 5.2 10*6/uL [place], [place] WBC (Bld) [#/Vol] 10.5 10*3/uL 3.6 - 10.7 10*3/uL [place] Test Performed by [facility], [address] [address] [address] Abdomen Pelvis W Contrast on 020 Ricky, [facility] Incoming Radiology Results From [facility] - 1:12 PM EDT [place] Patient Name: EVER MCKEON ---CT--- Exam Date/Time 05/10/2020 12:12:[address] Abdomen/Pelvis w/ IV Contrast (IV Onl Ordering Physician [id number] ANUPAMA SAMER Accession Number [id number] CPT4 Codes 12430 (CT Abdomen/Pelvis w/ IV Contrast (IV Onl), Q996 7 (CT ISOVUE 370MG/ML&[id number]&ML&1) Reason For Exam Eval progression of perinephric [...] and sp lenomegaly. Report Dictated on Workstation: Emergent Views2 --- Final --- Dictated: 05/10/2020 1:03 pm Dictating Physician: MD GUEVARA BRIAN Signed Date and Time: 05/10/2020 1:11 pm Signed by: MD GUEVARA BRIAN Transcribed Date and Time: 05/10/2020 1:03 Patient Name: EVER MCKEON FIN: [place], [place] [id number] ---CT--- Exam Date/Time 05/10/2020 12:12: [address] Abdomen/Pelvis w/ IV Contrast (IV Onl Ordering Physician [id number] ALTMAN SAMER Accession Num [id number] CPT4 Codes 74499 (CT Abdomen/Pelvis w/ IV Contrast (IV Onl), Q9967 (CT ISOVUE 370MG/ML&[id number]&ML&1) Reason For Exam Eval progression of perinephric [...] 165 U/L High 38 - 126 U/L [place] ALT [Catalytic activity/Vol] 16 U/L 0 - 34 U/L [place] Comment on above: The ALT test is performed by an updated assay method. Please note that the referen ce intervals have been changed and are now sex spec ific. AST [Catalytic activity/Vol] 36 U/L 15 - 46 U/L [place] Bilirubin Ql (U) 1.0 mg/dL 0.2 - 1.3 mg/dL [place] Bilirubin.direct [Mass/Vol] 0.0 mg/dL 0 - 0.3 mg/dL [place] Interpretation and review of Abnormal [place] laboratory results Protein [Mass/Vol] 6.6 g/dL 6.3 - 8.2 g/dL [place], [place] Lipase on 05-10-2020 Lipase [Catalytic activity/Vol] 105 U/L 23 - 300 U/L [place] Other on 05-10-2020 Test Performed by [address] [address] Interpretation and review of Abnormal [place] laboratory results Test Performed by [address] [address] Sedimentation Rate on 05-10-2020 Sed Rate 68 mm/h High 0 - 20 mm/h [place], [place] US DOPPLER ABD/PEL/RETRO/LMTD on 2019 Ricky, [facility] Incoming Radiology Results From [facility] - 2:45 PM EDT [place] Patient Name: EVER MCKEON ---Ultrasound--- Exam Date/Time 05/10/2020 14:23:24 EDT Exam US Art/Vein Abd/Pelvis/Scrotal Complete Ordering Physician [id number] PANTOJA Accession Number [id number] CPT4 Codes 22219 () Reason For Exam Eval for budd [...] 05/10/2020 2:26 Patient Name: EVER MCKEON FIN: [place], [place] [id number] ---Ultrasound--- Exam Date/Time 0 14:23:24 EDT Exam US Art/Vein Abd/Pelvis/Scrotal Compl ete Ordering Physician [id number] PANTOJA Accession Num [id number] CPT4 Codes 56756 () Reason For Exam Eval for budd [...] on 05-09-2020 Anion gap [Moles/Vol] 10 mmol/L [place] Calcium [Mass/Vol] 8.9 mg/dL 8.4 - 10.4 mg/dL [place] Chloride [Moles/Vol] 95 mmol/L Low 98 - 107 mmol/L [place] CO2 [Moles/Vol] 26 mmol/L 22 - 30 mmol/L [place], [place] Creatinine [Mass/Vol] 0.62 mg/dL 0.52 - 1.25 mg/dL [place] EGFR IF NonAfrican [place] >90.0 >60 mL/min [place], [place] Comment on above: KDIGO guidelines provide [...] GFR/1.73 sq M predicted mL/min/{1.73_m2} >60 mL/min [facility]- among blacks MDRD [place] (S/P/Bld) [Vol rate/Area] Glucose [Mass/Vol] 127 mg/dL High 70 - 100 mg/dL [place], [place] Interpretation and Abnormal [facility]- review of laboratory [place], [place] results Potassium [Moles/Vol] 3.2 mmol/L Low 3.5 - 5.1 [facility]- mmol/L [place] Sodium [Moles/Vol] 130 mmol/L Low 135 - 145 [facility]- mmol/L [place] Urea nitrogen [Mass/Vol] 11 mg/dL 7 - 20 mg/dL [place] Test Performed by [facility], [address] [place], [place] [address] CBC Auto Differential on 05-09-2020 Absolute Baso # 0.0 10*3/uL 0 - 0.2 10*3/uL [place] Absolute Neut # 9.8 10*3/uL High 1.8 - 7 10*3/uL [place] Basophils/100 WBC (Bld) 0.2 % 0 - 2 % [place] Eosinophils (Bld) [#/Vol] 0.2 10*3/uL 0 - 0.5 10*3/uL [place] Eosinophils/100 WBC (Bld) 1.4 % 1 - 6 % [facility], [place] Erythrocyte distribution 14.0 % 11.5 - 14.5 % [facility], width (RBC) [Ratio] NE Granulocytes/100 WBC 74.8 % 40 - 80 % [facility], (Bld) [place] Hematocrit (Bld) [Volume 35.9 % 35 - 47 % [facility], fraction] NE Hemoglobin (Bld) 12.1 g/dL 11.7 - 16 g/dL [facility], [Mass/Vol] [place] Interpretation and review Abnormal [facility], of laboratory results NE Lymphocytes (Bld) [#/Vol] 1.8 10*3/uL 1 - 4.3 10*3/uL [facility], [place] Lymphocytes/100 WBC (Bld) 13.7 % Low 20 - 40 % [facility], [place] MCH (RBC) [Entitic mass] 30.1 pg 26 - 34 pg [facility], [place] MCHC (RBC) [Mass/Vol] 33.6 % 32 - 36 % [facility], [place] MCV (RBC) [Entitic vol] 89.3 fL 79 - 98 fL [place], [place] Monocytes (Bld) [#/Vol] 1.3 10*3/uL High 0 - 0.8 10*3/uL [facility], [place] Monocytes/100 WBC (Bld) 9.9 % 2 - 10 % [place], [place] Platelet mean volume 7.9 fL 7.4 - 10.4 fL [facility], (Bld) [Entitic vol] NE Platelets (Bld) [#/Vol] 264 10*3/uL 140 - 440 10*3/uL [facility], [place] RBC (Bld) [#/Vol] 4.02 10*6/uL 3.8 - 5.2 10*6/uL [facility], [place] WBC (Bld) [#/Vol] 13.0 10*3/uL High 3.6 - 10.7 10*3/uL [place] Test Performed by [facility], [place] [address] [place] [address] Hemoglobin and Hematocrit, Blood on Hematocrit (Bld) [Volume 33.9 % Low 35 - 47 % [facility]] [place] Hemoglobin (Bld) [Mass/Vol] 11.5 g/dL Low 11.7 - 16 g/d L [place] Interpretation and review Abnormal [facility], of laboratory results NE Test Performed by [facility], [facility], [facility] [place] [address] Add On Lab Test on 05-08-2020 Sodium [Moles/Vol] see comment [place] Test Performed by [facility], [facility], [address] [address] cbc w/diff added. Manual diff not possible to be added on. Basic Metabolic Panel on 05-08-2020 Anion gap [Moles/Vol] 10 mmol/L [place] Calcium [Mass/Vol] 8.9 mg/dL 8.4 - 10.4 mg/dL [place] Chloride [Moles/Vol] 98 mmol/L 98 - 107 mmol/L [place] CO2 [Moles/Vol] 25 mmol/L 22 - 30 mmol/L [place], [place] Creatinine [Mass/Vol] 0.66 mg/dL 0.52 - 1.25 mg/dL [place] EGFR IF NonAfrican [place] >90.0 >60 mL/min [place] Comment on above: KDIGO guidelines provide [...] GFR/1.73 sq M predicted mL/min/{1.73_m2} >60 mL/min [facility] among blacks MDRD [place] (S/P/Bld) [Vol rate/Area] Glucose [Mass/Vol] 136 mg/dL High 70 - 100 mg/dL [facility]- [place], [place] Interpretation and Abnormal [facility]- review of laboratory [place], [place] results Potassium [Moles/Vol] 3.3 mmol/L Low 3.5 - 5.1 [facility] mmol/L [place], [place] Sodium [Moles/Vol] 132 mmol/L Low 135 - 145 [facility]- mmol/L [place] Urea nitrogen [Mass/Vol] 12 mg/dL 7 - 20 mg/dL [facility], [place] Test Performed by [facility], [address] [place], [place] [address] CBC Auto Differential on 05-08-2020 Erythrocyte distribution 14.0 % 11.5 - 14.5 % [facility], width (RBC) [Ratio] NE Hematocrit (Bld) [Volume 37.5 % 35 - 47 % [facility], fraction] NE Hemoglobin (Bld) 12.7 g/dL 11.7 - 16 g/dL [facility]- [place], [Mass/Vol] [place] Interpretation and review Abnormal [facility], of laboratory results NE MCH (RBC) [Entitic mass] 30.6 pg 26 - 34 pg [facility], [place] MCHC (RBC) [Mass/Vol] 34.0 % 32 - 36 % [place] MCV (RBC) [Entitic vol] 90.0 fL 79 - 98 fL [facility], [place] Platelet mean volume (Bld) 8.3 fL 7.4 - 10.4 fL [facility], [Entitic vol] NE Platelets (Bld) [#/Vol] 297 10*3/uL 140 - 440 [facility], 10*3/uL [place] RBC (Bld) [#/Vol] 4.16 10*6/uL 3.8 - 5.2 [facility], 10*6/uL [place] WBC (Bld) [#/Vol] 17.3 10*3/uL High 3.6 - 10.7 [facility], 10*3/uL [place] Test Performed by [facility], [facility], [facility] [place] [address] EKG 12 Lead on 05-08-2020 [facility] Test Date: 2020-05-07 Pat Name: Prateek schmid [facility], [place] Department: 1A Room: [address] [place] [address] er: F 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1970 Requested By: MARISA PETERS Order Number: [id number] Reading MD: Regan lan Measurements Intervals [place] Rate: 101 P: 75 NE: 160 QR S: 34 QRSD: 86 T: -2 QT: 343 QTc: 445 Interpretive Statements Sinus tachycardia Electronically Signed On 05-08-2020 13:00:43 EDT by Regan García [facility] Incoming Cardiolo gy Results From [employer] - 05/08/2020 1:01 PM EDT [facility], [place] Test Date: 2020-05-07 Pat Name: Ever Mckeon Department: [facility] Room: [facility] Gender: F 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1970 Requested By: MARISA PETERS Order Number: [id number] Reading MD: Regan Cortez Measurements Intervals [place] Rate: 101 P: 75 NE: 160 QRS: 34 QRSD: 86 T: -2 QT: 343 QTc: 445 Interpretive Statements Sinus tachycardia Electronically Signed On 05-08-2020 13:00:43 EDT by Chris Cortez Hemoglobin and Hematocrit, Blood on Hematocrit (Bld) [Volume 35.9 % 35 - 47 % [place], [place] fraction] Hemoglobin (Bld) 12.1 g/dL 11.7 - 16 g/dL [facility], [place] [Mass/Vol] Test Performed by [facility], [facility], [facility] [place] [address] Manual Differential on 05-08-2020 Absolute Baso # 0.0 10*3/uL 0 - 0.2 10*3/uL [place] Absolute Eos # 0.2 10*3/uL 0 - 0.5 10*3/uL [place] Absolute Lymph # 1.2 10*3/uL 1.1 - 4.5 10*3/uL [place] Absolute [place] # 0.9 10*3/uL 0.2 - 1.1 10*3/uL [place], [place] Absolute Neut # 15.1 10*3/uL High 2.2 - 8.2 10*3/uL [place], [place] Bands 21 % [place], [place] Basophils 0 % 0 - 2 % [place], [place] Comment SLIDE SCANNED [place], [place] Eosinophils 1 % [place], [place] Interpretation and review Abnormal Me [facility] of laboratory results [place] Lymphocytes 7 % [place], [place] Monocytes 5 % [place], [place] RBC morphology finding NORMAL [facility] Nom (Bld) NE Seg Neutrophils 66 % [place], [place] TOTAL CELLS COUNTED 100 [place], [place] Test Performed by [facility], [facility] [place] [address] , Urine on 05-08-2020 Beta HCG ( test) Ql (U) Negative Negative NA [place] Comment on above: is the most common reason for HCG in urine, although choriocarcinoma, hydatidifor m mole, and certain nontropho- blastic malignancies also re sult in detectable urinary HCG levels. Sensitivity = 20mIU/ mL. Test Performed by [place] [address] [place] [address] Add On Lab Test on 05-07-2020 Sodium [Moles/Vol] Accepted [place] Comment on above: Specimen available & accepta ble for analysis. Test Performed by [facility], [place] [address] [facility], [place] [address] Sodium [Moles/Vol] Accepted [place] Comment on above: Specimen available & accepta ble for analysis. Test Performed by [facility] [employer] [facility], [facility] [address] [facility] [address] [place] [address] Basic Metabolic Panel on 05-07-2020 Anion gap [Moles/Vol] 9 mmol/L [place], [place] Calcium [Mass/Vol] 8.9 mg/dL 8.4 - 10.4 mg/dL [place] Chloride [Moles/Vol] 96 mmol/L Low 98 - 107 mmol/L [place], [place] CO2 [Moles/Vol] 25 mmol/L 22 - 30 mmol/L [place], [place] Creatinine [Mass/Vol] 0.67 mg/dL 0.52 - 1.25 mg/dL [place] EGFR IF NonAfrican [place] >90.0 >60 mL/min [place] Comment on above: KDIGO guidelines provide [...] (GFR) from serum creatinine in children is [facility] Bedside Kumar equation. It is less accurate in patie nts with extremes of muscle mass, restriction of dietary protein, ingestion of creatine, extra-renal metabolism of cr eatinine, or treatment with medications that affect sofía l tubular creatinine secretion. GFR/1.73 sq M predicted mL/min/{1.73_m2} >60 mL/min [place] among [place] MDRD (S/P/Bld) [Vol rate/Area] Glucose [Mass/Vol] 168 mg/dL High 70 - 100 mg/dL [place], [place] Potassium [Moles/Vol] 3.3 mmol/L Low 3.5 - 5.1 mmol/L [place] Sodium [Moles/Vol] 130 mmol/L Low 135 - 145 mmol/L [place], [place] Urea nitrogen [Mass/Vol] 10 mg/dL 7 - 20 mg/dL [place], [place] Brain Natriuretic Peptide on 05-07-2020 Interpretation and review of Abnormal [place] laboratory results Natriuretic peptide B (Bld) 383 pg/mL High 0 - 125 pg/mL [place] [Mass/Vol] C-Reactive Protein on 05-07-2020 CRP [Mass/Vol] 232.3 mg/L High 0 - 6 mg/L [place] Comment on above: . COVID-19 on 05-07-2020 SARS-CoV-2 Not Detected [place], [place] Expected Result: Not Detected _ Real-time, RT-PCR performed on the [employer] System by the [facility] Microbiology Service. Negative results do not preclude SARS-CoV-2 infection and should not be used as the sole basis for treatment or other patient management decisions. This assay was developed by [employer] and distributed under an Emergency Use Authorization (EUA) granted by the FDA for the qualitative detection of SARS-CoV-2 nucleic acid. Test Performed by [facility] [employer] [facility], [address] [place] [address] Specimen Source Comment:Nasopharyngeal Swab CT Abdomen Pelvis W Contrast on 020 Patient Name: EVER MCKEON FIN: [place], [place] [id number] ---CT--- Exam Date/Time 05/07/2020 22:36: [address] Abdomen/Pelvis w/ IV Contrast (IV Onl Ordering Physician MD LORRAINE, MARISA [place] [id number] CPT4 Codes 80286 (CT Abdomen/Pelvis w/ IV Contrast (IV Onl), Q9967 (CT ISOVUE 370MG/ML&[id number]&ML&1) Reason For Exam RUQ and RLQ pain [...] 11:03 [place], [facility] Incoming Radiology Results From [facility] - 11:09 PM EDT [place] Patient Name: EVER MCKEON ---CT--- Exam Date/Time 05/07/2020 22:36:[address] Abdomen/Pelvis w/ IV Contrast (IV Onl Ordering Physician MD PETERS JAMES Accession Number [id number] CPT4 Codes 98437 (CT Abdomen/Pelvis w/ IV Contrast (IV Onl), Q996 7 (CT ISOVUE 370MG/ML&[id number]&ML&1) Reason For Exam RUQ and RLQ pain [...] distribution 14.0 % 11.5 - 14.5 % [facility]- [place], width (RBC) [Ratio] [place] Hematocrit (Bld) [Volume 37.2 % 35 - 47 % [facility]- [place], fraction] [place] Hemoglobin (Bld) 12.6 g/dL 11.7 - 16 g/dL [facility], [Mass/Vol] [place] Interpretation and review Abnormal [facility], of laboratory results [place] MCH (RBC) [Entitic mass] 30.3 pg 26 - 34 pg [place], [place] MCHC (RBC) [Mass/Vol] 34.0 % 32 - 36 % [place], [place] MCV (RBC) [Entitic vol] 89.1 fL 79 - 98 fL [place], [place] Platelet mean volume (Bld) 8.4 fL 7.4 - 10.4 fL [facility], [Entitic vol] NE Platelets (Bld) [#/Vol] 325 10*3/uL 140 - 440 [facility], 10*3/uL [place] RBC (Bld) [#/Vol] 4.18 10*6/uL 3.8 - 5.2 [facility], 10*6/uL [place] WBC (Bld) [#/Vol] 17.7 10*3/uL High 3.6 - 10.7 [facility], 10*3/uL [place] Test Performed by [facility], [place] [address] [place] [address] Hepatic Function Panel on 05-07-2020 Albumin [Mass/Vol] 3.0 g/dL Low 3.5 - 5 g/dL [place] ALP [Catalytic activity/Vol] 181 U/L High 38 - 126 U/L [place] ALT [Catalytic activity/Vol] 21 U/L 0 - 34 U/L [place] Comment on above: The ALT test is performed by an updated assay method. Please note that the referen ce intervals have been changed and are now sex spec ific. AST [Catalytic activity/Vol] 37 U/L 15 - 46 U/L [place] Bilirubin Ql (U) 1.1 mg/dL 0.2 - 1.3 mg/dL [place] Bilirubin.direct [Mass/Vol] 0.0 mg/dL 0 - 0.3 mg/dL [place] Interpretation and review of Abnormal [place] laboratory results Protein [Mass/Vol] 7.3 g/dL 6.3 - 8.2 g/dL [place], [place] Lipase on 05-07-2020 Lipase [Catalytic activity/Vol] 111 U/L 23 - 300 U/L [place], [place] Other on 05-07-2020 Test Performed by [facility] [facility], [facility] [place] [address] Interpretation and review of Abnormal [place], [place] laboratory results Test Performed by [facility], [facility] [place] [address] Test Performed by [facility], [facility] [place] [address] Troponin on 05-07-2020 Troponin I.cardiac [Mass/Vol] ng/mL 0 - 0.034 n g/mL [place], [place] Comment on above: . Urinalysis on 05-07-2020 Appearance (U) Clear Clear [place], [place] Comment on above: . Bacteria, UA Few Abnormal Negative /[HPF] [place], [place] Comment on above: . Bilirubin Urine Negative Negative mg/dL [place], [place] Comment on above: . Color (U) Yellow Lt. Yellow [place], [place] Comment on above: . Glucose, Ur Normal Normal (<70) mg/dL [employer] [place], [place] Comment on above: . Hyaline Casts, UA Negative Negative /[LPF] [place], [place] Comment on above: . Interpretation and review of Abnormal [place] laboratory results Ketones Ql (U) Negative Negative mg/dL [place], [place] Comment on above: . LEUKOCYTES, UA 25 Abnormal Negative Mario/uL [place] Comment on above: . Mucous Threads Few Negative /[LPF] [place] Comment on above: . Nitrite, Urine Negative Negative [place], [place] Comment on above: . Occult Blood,Urine Negative Negative mg/dL [place], [place] Comment on above: . pH (U) 6.5 [pH] [place], [place] Comment on above: . Protein (U) [Mass/Vol] Negative Negative mg/dL [place], [place] Comment on above: . RBC (U) [#/Vol] 0-2 0 - 2 /[HPF] [place], [place] Comment on above: . Specific Trilla, Urine 1.010 [place], [place] Comment on above: . Squam Epithel, UA 3-5 3 - 5 /[HPF] [place] Comment on above: . Urobilinogen, Urine 12 mg/dL Abnormal Normal (0-1) [place], [place] Comment on above: . WBC, UA 3-5 0 - 5 /[HPF] [place], [place] Comment on above: . Test Performed by [facility], [facility] [address] [place] [address] XR CHEST PORTABLE on 05-07-2020 Patient Name: EVER MCKEON FIN: [place], [place] [id number] ---Diagnostic Radiology--- Exam Date/Time 05/07/2020 21:27:00 EDT Exam CR Chest Portable Orderin g Physician [id number] NEIL OLSEN Accession Number [id number] CPT4 Codes 42709 () Reason For Exam sob, cough and [...] Transcribed Date and Time: 05/07/2020 9:25 Ricky, [facility] Results From [facility] - 9:27 PM EDT [place] Patient Name: EVER MCKEON ---Diagnostic Radiology--- Exam Date/Time 05/07/2020 21:27:00 EDT Exam CR Chest Portable Ordering Physician [id number] -SANCHEZNEIL Accession Number [id number] CPT4 Codes 09638 () Reason For Exam sob, cough and [...] Coronavirus 2019 on 04-26-2020 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 Comment on above: Result Comment: This test wa s developed and its performance characteristics determined by [facility]'s [facility] [place]. This test has been authorized by FDA [...] 2019. Performed By: #### COVID ### # [facility] Laboratory [address] [phone] [facility] [address] [place], [place] [address] COVID 19 Source H[employer]ESS [employer]ER Nasopharyngeal Swab Normal [facility] Comment on above: Performed By: #### COVID ### # [facility] Laboratory [address] [phone] [facility] [address] [place], [place] [address] ED NOTE on 04-26-2020 ED NOTE HNO ID: [id number] Normal Berta sorensen Author: Carla (Rn) BECKA [...] on 04-26-2020 ED PROV NOTE HNO ID: [id number] Normal Berta sorensen Author: Thaddeus Alexis) Ernesto Service: ? Author Type: Physician Inside Sales Professional Type: ED Provider Notes Filed: 04/26/2020 9:20 [...] no difficulty breathing. History provided by: Patient bilingual interpreter used: No PAST MEDICAL HISTORY Diagnosis Date [...] above: Performed By: #### CBCWD ### # [facility] [address] [place] [address] Hypochromia 1+ Normal [facility] Comment on above: Performed By: #### CBCWD ### # [facility] [address] [place] [address] Microcytic 1+ Normal [facility] Comment on above: Performed By: #### CBCWD ### # [facility] r [address] [place] [address] Basophils #/vol (Bld) 0.0 10*3/uL Normal 0.0-0.2 [facility] Comment on above: Performed By: #### CBCWD ### # [facility] r [address] [place] [address] Basophils/100 WBC (Bld) 1.1 % Normal [facility] Comment on above: Performed By: #### CBCWD ### # [facility] r [address] [place] [address] Eosinophils #/vol (Bld) 0.2 10*3/uL Normal 0.0-0.7 [facility] Comment on above: Performed By: #### CBCWD ### # [facility] r [address] [place] [address] Eosinophils/100 WBC (Bld) 5.6 % Normal [facility] Comment on above: Performed By: #### CBCWD ### # [facility] r [address] [place] [address] Erythrocyte distribution 17.3 % Critically high 11.5-14.5 [facility] width Ratio (RBC) Center Comment on above: Performed By: #### CBCWD ### # [facility] [address] [place] [address] Hematocrit Volume Fraction (Bld) 29.4 % Low 37.0-47. 0 [facility] Comment on above: Performed By: #### CBCWD ### # [facility] [address] [place] [address] Hemoglobin mass conc (Bld) 9.6 g/dL Low 12.0-16.0 [facility] Comment on above: Performed By: #### CBCWD ### # [facility] [address] [place] [address] Lymphocytes #/vol (Bld) 1.2 10*3/uL Normal 1.0-4.8 [facility] Comment on above: Performed By: #### CBCWD ### # [facility] [address] [place] [address] Lymphocytes/100 WBC (Bld) 27.8 % Normal [facility] Comment on above: Performed By: #### CBCWD ### # [facility] [address] [place] [address] MCH Entitic mass (RBC) 24.2 pg Low 27.0-31.3 [facility] Comment on above: Performed By: #### CBCWD ### # [facility] [address] [place] [address] MCHC mass conc (RBC) 32.7 % Low 33.0-37.0 [facility] Comment on above: Performed By: #### CBCWD ### # [facility] r [address] [place] [address] MCV Entitic volume (RBC) 74.1 fL Low 82.0-100.0 [facility] Comment on above: Performed By: #### CBCWD ### # [facility] [address] [place] [address] Monocytes #/vol (Bld) 0.5 10*3/uL Normal 0.2-0.8 [facility] Comment on above: Performed By: #### CBCWD ### # [facility] [address] [place] [address] Monocytes/100 WBC (Bld) 12.4 % Normal [facility] Comment on above: Performed By: #### CBCWD ### # [facility] [address] [place] [address] Neutrophils #/vol (Bld) 2.2 10*3/uL Normal 1.4-6.5 [facility] Comment on above: Performed By: #### CBCWD ### # [facility] [address] [place] [address] Neutrophils/100 WBC (Bld) 53.1 % Normal [facility] Comment on above: Performed By: #### CBCWD ### # [facility] [address] [place] [address] Platelets #/vol (Bld) 154 10*3/uL Normal 130-400 [facility] Comment on above: Performed By: #### CBCWD ### # [facility] [address] [place] [address] RBC #/vol (Bld) 3.97 10*6/uL Low 4.20-5.40 [facility] Comment on above: Performed By: #### CBCWD ### # [facility] [address] [place] [address] WBC #/vol (Bld) 4.2 10*3/uL Low 4.8-10.8 [facility] Comment on above: Performed By: #### CBCWD ### # [facility] [address] [place] [address] Comprehensive Metabolic Panel on 2018 Albumin mass conc 3.6 g/dL Normal 3.5-4.6 [facility] Comment on above: Result Comment: Effective: New reference range for this analyte has been established. Performed By: #### CMP #### [facility] [address] [place] [address] ALP enzyme act/vol 189 U/L Critically high 40-130 [facility] Comment on above: Performed By: #### CMP #### [facility] r [address] [place] [address] ALT enzyme act/vol 49 U/L Critically high 0-33 [facility] Comment on above: Performed By: #### CMP #### [facility] r [address] [place] [address] Anion gap molar conc 9 mmol/L Normal 9-15 [facility] Comment on above: Result Comment: Effective: New reference range for this analyte has been established. Performed By: #### CMP #### [facility] [address] [place] [address] AST enzyme act/vol 51 U/L Critically high 0-35 [facility] Comment on above: Performed By: #### CMP #### [facility] [address] [place] [address] Bilirubin mass conc 0.3 mg/dL Normal 0.2-0.7 [facility] Comment on above: Result Comment: Effective: New reference range for this analyte has been established. Performed By: #### CMP #### [facility] [address] [place] [address] Calcium mass conc 8.9 mg/dL Normal 8.5-9.9 [facility] Comment on above: Result Comment: Effective: New reference range for this analyte has been established. Performed By: #### CMP #### [facility] [address] [place] [address] Chloride molar conc 107 mmol/L Normal 95-107 [facility] Comment on above: Result Comment: Effective: New reference range for this analyte has been established. Performed By: #### CMP #### [facility] r [address] [place] [address] CO2 molar conc 25 mmol/L Normal 20-31 [facility] Comment on above: Result Comment: Effective: New reference range for this analyte has been established. Performed By: #### CMP #### [facility] r [address] [place] [address] Creatinine mass conc 0.42 mg/dL Low 0.50-0.90 [facility] Comment on above: Performed By: #### CMP #### [facility] [address] [place] [address] GFR/1.73 sq M predicted among mL/min/{1.73_m2} Normal >60 [facility]area n[facility] (S/P/Bld) Comment on above: Result Comment: >60 mL/min/1 .73m2 EGFR, calc. for ages 18 and older using the MDRD formula (not corrected for weight), is valid for stable renal function. Performed By: #### CMP #### [facility] [address] [place] [address] GFR/1.73 sq M.predicted MDRD mL/min/{1.73_m2} Normal >60 [facility] vol rate/area Center Comment on above: Result Comment: >60 mL/min/1 .73m2 EGFR, calc. for ages 18 and older using the MDRD formula (not corrected for weight), is valid for stable renal function. Performed By: #### CMP #### [facility] r [address] [place] [address] Globulin mass conc (S) 3.4 g/dL Normal 2.3-3.5 [facility] Comment on above: Performed By: #### CMP #### [facility] r [address] [place] [address] Glucose mass conc 90 mg/dL Normal 70-99 [facility] Comment on above: Result Comment: Effective: New reference range for this analyte has been established. Performed By: #### CMP #### [facility] [address] [place] [address] Potassium molar conc 4.3 mmol/L Normal 3.4-4.9 [facility] Comment on above: Result Comment: Effective: New reference range for this analyte has been established. Performed By: #### CMP #### [facility] r [address] [place] [address] Protein mass conc 7.0 g/dL Normal 6.3-8.0 [facility] Comment on above: Result Comment: Effective: New reference range for this analyte has been established. Performed By: #### CMP #### [facility] r [address] [place] [address] Sodium molar conc 141 mmol/L Normal 135-144 [facility] Comment on above: Result Comment: Effective: New reference range for this analyte has been established. Performed By: #### CMP #### [facility] r [address] [place] [address] Urea nitrogen mass conc 14 mg/dL Normal 6-20 [facility] Comment on above: Performed By: #### CMP #### [facility] r [address] [place] [address] Creatine Kinase on 02-15-2019 CK enzyme act/vol 70 U/L Normal 0-170 [facility] Comment on above: Performed By: #### CPK #### [facility] r [address] [place] [address] Culture, Blood 2 on 02-15-2019 Culture, Blood 2 ORDERED BY: BRENT YESSI Normal [facility] SOURCE: Blood COLLECTED: 02/15/19 10:51 Center ANTIBIOTICS AT BARRIE.: RECEIVED : 02/15/19 10:53 Culture, Blood 2 FINAL 02/20/19 12:15 No growth after 5 days of incubation. Comment on above: Performed By: #### CXBL2 ### # [facility] [address] [facility] [address] Troponin on 02-15-2019 Troponin I.cardiac mass conc ng/mL Normal 0.000-0.01 [facility] Comment on above: Result Comment: Methodology by Troponin T. Performed By: #### TROP #### [facility] r [address] [facility] [address] XR CHEST (2 VW) on 02-15-2019 XR CHEST (2 VW) EXAMINATION: XR CHEST (2 VW) Normal [facility] CLINICAL HISTORY: cough . Ce nter COMPARISONS: [...] 2006;27:330-337 Performed By: #### BNPPR ### # [facility] [address] [place] [address] Hemoglobin A1c on 01-19-2019 Hemoglobin A1c/Hemoglobin.total mass 5.4 % Normal 4.8- 5.9 [facility] (d) Center Comment on above: Performed By: #### A1C #### [facility] [address] [place] [address] XR LUMBAR SPINE (MIN 4 VIEWS) on 2018 XR LUMBAR SPINE (MIN EXAMINATION: XR LUMBAR SPINE (MIN 4 VIEWS) Nor mal [facility] 4 VIEWS) CLINICAL HISTORY: M54.31 Right sided [...] on above: Order Comment: CALL doctor L 5072 tel. [phone], Please fax results to [phone] Result Comment: The specimen was non-reactive for [...] ). Performed by BHARATI lozada, [address] [facility] [address] [email or web address], Hugo Garcia do, MD - Lab. Director Glucose on 01-02-2019 Glucose mass conc 93 mg/dL Normal 70-99 [facility] Comment on above: Order Comment: CALL doctor Chin 8055 tel. [phone], Please fax results to [phone] Result Comment: Effective: New reference range for this analyte has been established. Hepatitis Acute Panel on 01-02-2019 Protein mass conc see below Normal [facility] Comment on above: Order Comment: CALL doctor Chin 8055 tel. [phone], Please fax results to [phone] Result Comment: The acute he patitis panel is negative. There is no evidence of acute hepatitis A, B, C. Hepatitis A Antibody (IgM) Interp Non-reactive [facility] Comment on above: Order Comment: CALL doctor Chin 8055 tel. [phone], Please fax results to [phone] Hepatitis B Core Ab IgM Interp Non-reactive [facility] Comment on above: Order Comment: CALL doctor L 8055 tel. [phone], Please fax results to [phone] Hepatitis B Surface Ag Interp Non-reactive [facility] Comment on above: Order Comment: CALL doctor L 8055 tel. [phone], Please fax results to [phone] Hepatitis C Antibody Interp Non-reactive [facility] Comment on above: Order Comment: CALL doctor L 8055 tel. [phone], Please fax results to [phone] Liver Panel on 01-02-2019 Albumin mass conc 4.0 g/dL Normal 3.5-4.6 [facility] Comment on above: Order Comment: CALL doctor Chin 8055 tel. [phone], Please fax results to [phone] Result Comment: Effective: New reference range for this analyte has been established. ALP enzyme act/vol 179 U/L Critically high 40-130 [facility] Comment on above: Order Comment: CALL doctor L 8055 tel. [phone], Please fax results to [phone] ALT enzyme act/vol 50 U/L Critically high 0-33 [facility] Comment on above: Order Comment: CALL doctor L 8055 tel. [phone], Please fax results to [phone] AST enzyme act/vol 63 U/L Critically high 0-35 [facility] Comment on above: Order Comment: CALL doctor L 8055 tel. [phone], Please fax results to [phone] Bilirubin Indirect see below Normal 0.0-0.6 [facility] Comment on above: Order Comment: CALL doctor L 8055 tel. [phone], Please fax results to [phone] Result Comment: Indirect Duarte irubin cannot be calculated since Total Bilirubin and/or Direct Bilirubin is b elow measurable range. Bilirubin mass conc 0.5 mg/dL Normal 0.2-0.7 [facility] Comment on above: Order Comment: CALL doctor L 8055 tel. [phone], Please fax results to [phone] Result Comment: Effective: New reference range for this analyte has been established. Bilirubin.direct mass conc mg/dL Normal 0.0-0.4 [facility] Comment on above: Order Comment: CALL doctor L 8055 tel. [phone], Please fax results to [phone] Result Comment: Effective: New reference range for this analyte has been established. Protein mass conc 7.5 g/dL Normal 6.3-8.0 [facility] Comment on above: Order Comment: CALL doctor L 8055 tel. [phone], Please fax results to [phone] Result Comment: Effective: New reference range for this analyte has been established. Vital Signs Date Time Vital Sign Value Performing Clinician Facilit y 12-22-2022 SaO2% (BldA) [Mass 93 % PAULO GARCIA Gigi Lopez maira 20:22-0500 fraction] [facility] Comment on above: Performed By: #### [id number] ## ## [facility]igi [facility],[address] [place] [id number] 11-02-[address] MUSTAPHA WOODWARD MD [facility] ospital 06:59-0500 Location 11-02-[address] MUSTAPHA WOODWARD MD [facility] 06:59-0500 Method 11-02-[address] MUSTAPHA WOODWARD [facility] 06:59-0500 [degF] 11-02-2022 Diastolic Blood [address] MUSTAPHA WOODWARD MD [facility] 06:59-0500 Pressure Non-Invasive 11-02-2022 Heart rate 78 /min DR MUSTAPHA WOODWARD MD [facility] 06:59-0500 11-02-2022 Mean blood pressure 97 mm[Hg] DR MUSTAPHA WOODWARD MD [facility] 06:59-0500 11-02-2022 Respiratory rate 18 /min DR MUSTAPHA WOODWARD [facility] 06:59-0500 11-02-2022 Systolic Blood [address] MUSTAPHA WOODWARD MD [facility] 06:59-0500 Pressure Non-Invasive 11-02-[address] MUSTAPHA WOODWARD MD [facility] 00:54-0500 [degF] 11-02-2022 Diastolic Blood [address] MUSTAPHA WOODWARD MD [facility] 00:54-0500 Pressure Non-Invasive 11-02-2022 Heart rate 68 /min DR MUSTAPHA WOODWARD MD [facility] 00:54-0500 11-02-2022 Systolic Blood [address] MUSTAPHA WOODWARD MD [facility] 00:54-0500 Pressure Non-Invasive 11-01-[address] MUSTAPHA WOODWARD MD [facility] 21:140500 [degF] 11-01-2022 Diastolic Blood [address] MUSTAPHA WOODWARD MD [facility] 21:140500 Pressure Non-Invasive 11-01-2022 Heart rate 64 /min DR MUSTAPHA WOODWARD MD [facility] 21:140500 11-01-2022 Respiratory rate 18 /min DR MUSTAPHA WOODWARD MD [facility] 21:140500 11-01-2022 Systolic Blood [address] MUSTAPHA WOODWARD MD [facility] 21:140500 Pressure Non-Invasive 11-01-2022 Respiratory rate 17 /min DR MUSTAPHA WOODWARD [facility] 14:280500 10-31-2022 Body height 165.[address] MUSTAPHA WOODWARD MD [facility] 01:250500 10-31-2022 Body weight 128.[address] MUSTAPHA WOODWARD MD [facility] 01:250500 10-31-2022 Body weight 47.29 kg/m2 DR MUSTAPHA WOODWARD MD [facility] 01:250500 10-07-2022 Body temperature 98.42 BENSON GARCIA MD [facility] 11:0500 [degF] 10-07-2022 Diastolic Blood 54 1 BENSON GARCIA MD [facility] 11:050500 Pressure Non-Invasive 10-07-2022 Heart rate 78 /min BENSON GARCIA MD [facility] 11:05-0500 10-07-2022 Reason For Taking BENSON GARCIA MD [facility] 11:05-0500 VItal Signs 10-07-2022 Respiratory rate 18 /min BENSON GARCIA MD [facility] 11:05-0500 10-07-2022 Systolic Blood 100 1 BENSON GARCIA MD [facility] spital 11:05-0500 Pressure Non-Invasive 10-07-2022 Body temperature 98.6 [degF] BENSON GARCIA MD [facility] 02:52-0500 10-07-2022 Diastolic Blood 68 1 BENSON GARCIA MD [facility] 02:52-0500 Pressure Non-Invasive 10-07-2022 Heart rate 71 /min BENSON GARCIA MD [facility] ital 02:52-0500 10-07-2022 Respiratory rate 18 /min BENSON GARCIA MD [facility] 02:52-0500 10-07-2022 Systolic Blood 133 1 BENSON GARCIA MD [facility] spital 02:52-0500 Pressure Non-Invasive 10-06-2022 Body temperature 97.88 BENSON GARCIA MD [facility] 22:45-0500 [degF] 10-06-2022 Diastolic Blood 67 1 BENSON GARCIA MD [facility] 22:45-0500 Pressure Non-Invasive 10-06-2022 Heart rate 70 /min BENSON GARCIA MD [facility] ital 22:45-0500 10-06-2022 Reason For Taking BENSON GARCIA MD [facility] 22:45-0500 VItal Signs 10-06-2022 Respiratory rate 18 /min BENSON GARCIA MD [facility] 22:45-0500 10-06-2022 Systolic Blood 118 1 BENSON GARCIA MD [facility] spital 22:45-0500 Pressure Non-Invasive 10-06-2022 Reason For Taking BENSON GARCIA MD [facility] 14:53-0500 VItal Signs 2022 Heart rate 85 /min BENSON GARCIA MD [facility] ital 22:50-0500 2022 Heart rate 86 /min BENSON GARCIA MD [facility] ital 18:57-0500 2022 Heart rate 90 /min BENSON GARCIA MD [facility] ital 15:12-0500 2022 Body temperature 97.16 BENSON GARCIA MD [facility] 03:08-0500 [degF] 10-04-2022 Body temperature 98.6 [degF] BENSON GARCIA MD [facility] 03:35-0500 10-03-2022 Body height 165 cm BENSON GARCIA MD [facility] ital 11:32-0500 10-03-2022 Body weight 120.6 kg BENSON GARCIA MD [facility] ital 11:32-0500 10-03-2022 Body weight 44.3 kg/m2 BENSON GARCIA MD [facility] ital 11:32-0500 08-11-2022 Body mass index 37.59 kg/m2 Donte SAM 10:0400 (BMI) [Ratio] Work Phone: 10-18-2022 Body temperature 97.81 Donte Caruso MD [facility] 10:-0400 [degF] Work Phone: 08-11-2022 Body weight 108.86 kg Donte Caruso MD [facility] 10:-0400 Work Phone: 08-11-2022 Diastolic blood 75 mm[Hg] Donte Caruso MD [facility] 10:0400 pressure Work Phone: 08-11-2022 Heart rate 97 /min Donte Caruso MD [facility] 10:0400 Work Phone: 08-11-2022 Respiratory rate 24 /min Donte Caruso MD [facility] 10:0400 Work Phone: 08-11-2022 SaO2% (BldA) [Mass 97 % Donte Caruso MD [employer] 10:0400 fraction] Work Phone: 08-11-2022 Systolic blood 115 mm[Hg] Donte Caruso MD [facility] 10[facility]0400 pressure Work Phone: 08-23-2021 Diastolic [...] mass index 29.6 kg/m2 Chevy Whittington MD [facility] 19:58-0400 (BMI) [Ratio] Work Phone: Work Phone: 08-23-2021 Body temperature 97.5 [degF] Chevy Whittington MD [facility] 19:58-0400 Work Phone: W ork Phone: 08-23-2021 Body weight 85.73 kg Chevy Whittington MD [facility] 19:58-0400 Work Phone: W ork Phone: 07-18-2020 BP Diastolic 87 mm[Hg] Nadine Gaxiola [facility]- 10:40-0400 [place], 07-18-2020 BP Systolic 139 mm[Hg] [employer] [facility]- 10:40-0400 [place], 07-18-2020 Pulse (Heart Rate) 80 /min Nadine Carranza [facility]- 10:40-0400 [place], 07-18-2020 Pulse Oximetry 96 % Nadine Carranza [employer] [facility]- 10:40-0400 [place], 07-18-2020 Respiratory Rate 18 /min Nadine Carranza [facility] lt- 10:40-0400 [place], 07-18-2020 BMI (Body Mass 37.59 kg/m2 Nadine Carranza [facility]- 08:31-0400 Index) [place], 07-18-2020 Body Temperature 97.39 Nadine Singh [facility]- 08:31-0400 [degF] [place], 07-18-2020 Body weight 108.86 kg [employer] [facility]- 08:31-0400 [place], 07-18-2020 Height 170.2 cm Nadine [employer]- 08:310400 [place], 05-22-2020 Body Temperature 97.39 [facility] - 11:46-0400 [degF] [place], 05-22-2020 BP Diastolic 51 mm[Hg] [facility] 11:46-0400 [place], 05-22-2020 BP Systolic 124 mm[Hg] [facility]- 11:460400 [place], 05-22-2020 Pulse (Heart Rate) 89 /min [facility]- 11:460400 [place], 05-22-2020 Pulse Oximetry 96 % [facility] 11:460400 [place], 05-22-2020 Respiratory Rate 18 /min [facility]- 11:46-0400 [place], 05-22-2020 BMI (Body Mass 42.32 kg/m2 [facility] - :0 Index) [place], 05-22-2020 Body weight 122.56 kg [facility] 04:0400 [place], 05-15-2020 Height 170.2 cm [facility]- 17:020400 [place], 05-11-2020 Body Temperature 97.3 [degF] Marisa Carranza [facility]- 15:0400 [place], 05-11-2020 BP Diastolic 47 mm[Hg] [facility]- 15:0400 [place], 05-11-2020 BP Systolic 96 mm[Hg] [facility]- 15:0400 [place], 05-11-2020 Pulse (Heart Rate) 83 /min [facility] 15:0400 [place], 05-11-2020 Pulse Oximetry 93 % [facility]- 15:0400 [place], 05-11-2020 Respiratory Rate 14 /min Marisa Carranza [facility] lt- 15:0400 [place], 05-11-2020 BMI (Body Mass 39.37 kg/m2 [facility]- 03:10-0400 Index) [place], [place] 05-11-2020 Body weight 114.03 kg Marisa [facility]- 03:0400 [place] 05-08-2020 Height 170.2 cm Marisa [facility]- 14:29-0400 [place], [place] 06-08-2019 BP Diastolic 68 mm[Hg] [facility]uco Guerrier [facility] 14:39-0400 [place], [place] 06-08-2019 BP Systolic 107 mm[Hg] [facility]uco Guerrier [facility] 14:39-0400 [place], [place] 06-08-2019 Pulse (Heart Rate) 79 /min Cuco Carranza [facility]- 14:39-0400 [place], [place] 06-08-2019 Pulse Oximetry 94 % Cuco Carranza [facility]- 14:39-0400 [place] 06-08-2019 Respiratory Rate 18 /min Cuco Carranza [facility]- 14:39-0400 [place] 06-08-2019 BMI (Body Mass 40.57 kg/m2 [facility] 12:0400 Index) [place] 06-08-2019 Body Temperature 98.29 Cuco Carranza [facility]- 12:04-0400 [degF] [place] 06-08-2019 Body weight 117.48 kg [facility] 12:0400 [place] 06-08-2019 Height 170.2 cm [facility] 12:0400 [place] Encounters Encounter Date Encounter Type Care Provider Facility Start: 12-23-2022 Evaluation and CONSTANTINE JACOBSON [facility] End: 01-01-2023 management of inpatient Hospital Start: 11-19-2022 ambulatory LYNDSEY JARRELL [facility] Start: 11-17-2022 ambulatory LOIS MELGAR [facility] End: 11-18-2022 Hospital Start: 11-16-2022 Telephone encounter [...] inpatient Start: 10-31-[address] [facility]: 11-02-2022 management of Work P giovanni: inpatient Start: 10-30-2022 Emergency department PAULO GARCIA [facility] End: 10-31-2022 patient visit Hospital Start: 10-15-2022 ambulatory [facility] End: 10-16-2022 [facility] Start: 10-03-2022 Evaluation and BENSON GARCIA Facility:A End: 10-07-2022 management of inpatient Start: 10-03-2022 Evaluation and BENSON GARCIA MD [facility] End: 10-07-2022 management of Work P giovanni: inpatient Start: 10-03-2022 Emergency department SAW KEARNEY [facility] End: 10-03-2022 patient visit Hospital Start: 08-11-2022 Emergency department DONTE CARUSO [facility] End: 08-11-2022 patient visit Start: 08-11-2022 Emergency department Donte davila Emergency End: 08-11-2022 patient visit Work Phone: Dept Comment on above: Bronchitis (Primary Dx); Throat pain Start: 06-12-2022 Evaluation and CALVIN URBAN [facility] End: 06-15-2022 management of inpatient Start: 05-06-2022 Emergency department DAYO BELL Facility :[facility] End: 05-06-2022 patient visit Start: 08-23-2021 Emergency department CHEVY Sam [facility] End: 08-24-2021 patient visit Start: 08-23-2021 Emergency department Chevy peguero Emergency Dept End: 08-24-2021 patient visit Work Phone: Comment on above: Anxiety state (Primary Dx); Shortness of breath; Shaking Start: 08-08-2020 Subsequent hospital [facility] [address] [facility] End: 08-08-2020 visit by physician Work Phone: MR Morales Comment on above: Arrived Start: 07-18-2020 Subsequent hospital Nadine Gaxiola [facility] [address] End: 07-18-2020 visit by physician Work Phone: En doscopy Comment on above: Arrived Start: 07-03-2020 Subsequent [facility] [address] MRI End: 07-03-2020 visit by physician Work Phone: Comment on above: Light stools; Other cirrhosis of liver (HC C) Start: 05-15-2020 Evaluation and Luis Avalos [facility] 5W TELEMET RY End: 05-22-2020 management of [...] above: Arrived Start: 02-15-2019 [facility] End: 02-15-2019 patient visit Center Start: 01-19-2019 Patient encounter procedure JAY KINGSTON [facility] End: 01-22-2019 Center Start: 10-09-2018 Emergency department Saw Sam [facility] Start: 08-27-2018 Emergency department [facility] patient visit Procedures Date Procedure Procedure Detail Performing Clin ician Start: 12-23-2022 Urinalysis PAULO GARCIA Comment on above: Result Comment: URINALYSIS Performed By: #### [id number] ## ##[facility],[address] [place] [address] Start: 11-17-2022 Urinalysis PAULO GARCIA Comment on above: Result Comment: URINALYSIS Performed By: #### [id number] ## ## [facility],[address] [place] [address] Start: 10-30-2022 Urinalysis PAULO GARCIA Comment on above: Result Comment: URINALYSIS Performed By: #### [id number] ## ## [facility],[address] [place] [address] Start: 08-11-2022 Radiologic exam chest single view [...] troponin quantitative Moises Subichin Work Phone: [phone] Start: 05-22-2020 BASIC METABOLIC PANEL W/ REFLEX [...] Maria Bobda each specimen Work Phone: [phone] Start: 05-20-2020 Smr prim src gram/giemsa stain bct Taralexa Bobda fungi/cell Work Phone: Start: 05-20-2020 TOTAL PROTEIN, FLUID Luz Maria Bobda Work Phone: [phone] Start: 05-20-2020 ADD ON LAB TEST Luz [...] view Neil U Sanchez Work Phone: [phone] Start: 05-07-2020 Assay of lipase Neil U Sanchez Work Phone: Start: 05-07-2020 Assay of troponin quantitative Neil U Sanchez Work Phone: Start: 05-07-2020 Basic metabolic panel calcium total Neil U Sanchez Work Phone: Start: 05-07-2020 Blood count complete automated Neil U Sanchez Work Phone: Start: 05-07-2020 C-reactive protein Neil U Sanchez Work Phone: [phone] Start: 05-07-2020 COVID-19 Neil U Sanchez Work Phone: [phone] Start: 05-07-2020 Hepatic function panel Neil U [...] on above: Performed By: #### CXBL #### [facility] [address] [place] [address] Start: 02-15-2019 Assay of troponin quantitative [...] DTaP/Tdap/Td vaccine DTaP/Tdap/Td vaccine (2 - S [facility] 06-09-2032 (2 - Td or Tdap) Td or Tdap) Start: Urine microalbumin DTAP,TDAP,TD (2 - Td or [facility] 06-09-2032 profile Tdap) Start: Lipid panel Lipids [facility] 06-09-2027 Start: DIABETES SCREEN DIABETES SCREEN [facility] 06-15-2025 Start: Diabetes screen Diabetes screen [facility] 06-09-2025 Start: Depression Monitoring Depression Monitoring [facility] 06-05-2023 Start: 08-13-2022 Patient encounter 08/13/2022 Office Visit [facility] End: 08-13-2022 procedure Internal Medicine [employer] [facility] Internal Drew, Tim, LOSS PREVENTION COORDINATOR - Medici ne EXCELLENCE CONSULTANT [address] [place] [address] Start: Influenza vaccination INFLUENZA (#1) [facility] 06-25-2022 Start: Screening for [facility] 06-08-2022 malignant neoplasm of colon Start: Influenza vaccination Flu vaccine (#1) [facility] 05-25-2022 Start: Diabetes screen Diabetes screen [place], [place] 01-18-2022 Start: Influenza vaccination Flu vaccine (#1) [facility] 06-25-2021 Work Phone: Start: Creatinine Creatinine monitoring [facility] 05-22-2021 measurement Start: Potassium monitoring Potassium monitoring [place], [place] 05-22-2021 Start: Breast cancer screen Breast cancer screen [place], [place] 05-17-2021 Start: Screening for Breast cancer screen [facility] 05-17-2021 malignant neoplasm of breast Start: 08-21-2020 Virtual Visit 08/21/2020 Virtual Visit [facility] End: 08-21-2020 Gastroenterology Tierra Denise PA-C [address] [place] [address] [phone] Start: 08-01-2020 Virtual Visit 08/01/2020 Virtual Visit [facility] End: 08-01-2020 Gastroenterology Tierra Denise PA-C [address] [place] [address] [phone] Start: 07-18-2020 Appointment 07/18/2020 Appointment IP [facility] End: 07-18-2020 Unit Nadine Gaxiola MD [address] [place] [address] Start: Influenza vaccination Flu vaccine (#1) [facility] [place] 06-25-2020 Start: 05-29-2020 Basic metabolic 2000 Basic Metabolic Panel Lab [place] End: 05-22-2021 panel Routine Hypokalemia Sepsis without acute organ dysfunction, due to unspecified organism (HCC) Expected: 05/29/2020, Expires: 05/22/2021 Comment on above: Expected: 05/29/2020, s: 05/22/2021 Start: 05-29-2020 CBC CBC Lab Routine Other elevated white [place] End: 05-22-2021 blood cell (WBC) count Sepsis wi thout acute organ dysfunction, due to unspecified organism (HCC) Expec dori: 05/29/2020, Expires: 05/22/2021 Comment on above: Expected: 05/29/2020, s: 05/22/2021 Start: 05-29-2020 Procalcitonin Procalcitonin Lab Routine [place] End: 05-22-2021 Sepsis without acute organ dysfunction, due to unspecified organism (HCC) Expected: 05/29/2020, Expires: 05/22/2021 Comment on above: Expected: 05/29/2020, s: 05/22/2021 Start: 05-29-2020 Virtual Visit 05/29/2020 Virtual Visit [facility] Second Decimal End: 05-29-2020 Internal Medicine Frida, Med ica Center Delia Morales MD [address] [place] [address] [phone] Start: 05-17-2020 CBC CBC Lab Routine [facility] [place] End: 05-11-2021 right kidney, initial encounter Expected: 05/17/2020, Expires: 05/11/2021 Comment on above: Expected: 05/17/2020, s: 05/11/2021 Start: 08-22-2019 Office Visit 08/22/2019 Office Visit [facility] End: 08-22-2019 Internal Medicine [facility] Bushra Harkins, LOSS PREVENTION COORDINATOR - EXCELLENCE CONSULTANT [address] [place] [address] Start: 08-10-2019 [facility] Start: 08-10-2019 Lipid screen [facility] Start: 06-25-2019 Influenza vaccination Flu vaccine (#1) [facility] Start: 06-23-2019 Office Visit 06/23/2019 Office Visit Gastro enterology [facility] End: 06-23-2019 Gastroenterology Simi Navarrete, LOSS PREVENTION COORDINATOR - EXCELLENCE CONSULTANT [address] [address] Start: 2018 Colon cancer screen Colon cancer screen [facility] colonoscopy colonoscopy Start: 2018 Shingles Vaccine (1 Shingles Vaccine (1 of [facility] of 2) 2) Start: 2018 SHINGRIX VACCINE (1 SHINGRIX VACCINE (1 of [facility] of 2) 2) Start: 2013 COLOGUARD (FIT-DNA) COLOGUARD (FIT-DNA) [facility] Start: 2013 [facility] Start: 2013 COLORECTAL CANCER COLORECTAL CANCER [facility] SCREENING SCREENING Start: [address] [facility] Start: 2013 FECAL OCCULT BLOOD FECAL OCCULT BLOOD [facility] Start: 2013 LIPID SCREEN L[facility]ID SCREEN [facility] Start: 2013 Screening for [facility] malignant neoplasm of colon Start: 2013 SIGMOIDOSCOPY [facility]OS[facility] Start: 2008 Mammography MAMMOGRAM [facility] Start: 1998 HPV TESTING HPV TESTING [facility] Start: 1998 Screening for [facility] malignant neoplasm of cervix Start: 1989 Cervical cancer Cervical cancer screen [facility] screen Start: 1989 PAP TESTING PAP TESTING [facility] Start: 1989 Screening for [facility] malignant neoplasm of cervix Start: 1987 DTaP/Tdap/Td vaccine DTaP/Tdap/Td vaccine (1 M [place] (1 - Tdap) - Tdap) Start: 1987 Hepatitis B vaccine Hepatitis B vaccine (1 [facility] (1 of 3 - Risk 3-dose of 3 - Risk 3-dose series) series) Start: 1986 HIV SCREENING HIV SCREENING [facility] ic Start: 1980 COVID-19 Vaccine (1) COVID-19 Vaccine (1) [facility] Work Phone: Start: 1974 PNEUMOCOCCAL (1 - PNEUMOCOCCAL (1 - PCV) [facility] PCV) Start: 1974 Pneumococcal 0-64 Pneumococcal 0-64 years [facility] A years Vaccine (1 - Vaccine (1 - PCV) PCV) Start: 1974 Pneumococcal 0-64 Pneumococcal 0-64 years [place] years Vaccine (1 of 1 Vaccine (1 of 1 - - PPSV23) PPSV23) Start: 1974 Pneumococcal 0-64 Pneumococcal 0-64 years [facility] A years Vaccine (1 of 2 Vaccine (1 of 2 - Work Adolfo ne: - PPSV23) PPSV23) Start: 1969 HEPATITIS A (1 of 2 - HEPATITIS A (1 of 2 - Cl [facility] Risk 2-dose series) Risk 2-dose series) Start: 1969 Hepatitis A vaccine Hepatitis A vaccine (1 [facility] (1 of 2 - Risk 2-dose of 2 - Risk 2-dose series) series) Start: 04-05-1969 COVID-19 Vaccine (#1) COVID-19 Vaccine (#1) [facility] Albumin, fluid Albumin, fluid Lab [place] End: 05-20-2020 Routine One Time for 1 Occurrences starting 05/20/2020 until 05/20/2020 Comment on above: One Time for 1 Occurrences s tarting 05/20/2020 until 05/20/2020 Basic metabolic 2000 panel Basic Metabolic Panel Lab Routine [place] Daily until discontinued startin g 05/08/2020, 4 completed Comment on above: Daily until discontinued sta rting 05/08/2020, 4 completed Basic Metabolic Panel w/ Basic Metabolic Panel w / Reflex [place] Reflex to MG to MG Lab Routine Daily until discontinued starting 05/16/2020, 7 completed Comment on above: Daily until discontinued sta rting 05/16/2020, 7 completed Blood glucose - POCT Blood glucose - POCT [place] End: 06-08-2019 of Care Testing Routine One Time for 1 Occurrences starting 06/08/2019 until 06/08/2019 Comment on above: One Time for 1 Occurrences s tarting 06/08/2019 until 06/08/2019 Body fluid cell count Body fluid cell count [facility], End: 05-20-2020 with differential with differential Lab [place] Routine One Time for 1 Occurrences starting 05/20/2020 until 05/20/2020 Comment on above: One Time for 1 Occurrences s tarting 05/20/2020 until 05/20/2020 CBC Auto Differential CBC Auto Differential Lab [place] End: 05-19-2020 Routine Daily for 10 Occurrences starting 05/10/2020 until 05/19/2020, 2 completed Comment on above: Daily for 10 Occurrences sta rting 05/10/2020 until 05/19/2020, 2 completed CBC Auto Differential CBC Auto Differential Lab [place] End: 06-17-2020 Routine Daily for 30 Occurrences starting 05/19/2020 until 06/17/2020, 3 completed Comment on above: Daily for 30 Occurrences sta rting 05/19/2020 until 06/17/2020, 3 completed CBC Auto Differential CBC Auto Differential Lab [place] Routine 05/22/2020 2:43 AM EDT Culture, Anaerobic and Culture, Anaerobic and Me [place], [place] Aerobic Aerobic Microbiology Routine 05/20/2020 12:15 PM EDT Culture, Blood 1 Culture, Blood 1 [place] Microbiology STAT 05/08/2020 5:59 AM EDT Culture, Blood 2 Culture, Blood 2 [place] Microbiology STAT 05/08/2020 6:04 AM EDT Culture, Body Fluid Culture, Body Fluid [place], [place] Microbiology Routine 05/20/2020 12:15 PM EDT Culture, Respiratory Culture, Respiratory [place] End: 05-16-2020 Microbiology Routine One Time for 1 Occurrences starting 05/16/2020 until 05/16/2020 Comment on above: One Time for 1 Occurrences s tarting 05/16/2020 until 05/16/2020 Glucose, body fluid Glucose, body fluid Lab [place], [place] End: 05-20-2020 Routine One Time for 1 Occurrences starting 05/20/2020 until 05/20/2020 Comment on above: One Time for 1 Occurrences s tarting 05/20/2020 until 05/20/2020 Hemoglobin and Hematocrit, Hemoglobin and Hemato crit, [place] Blood Blood Lab Routine 05/09/2020 2:51 AM EDT Incentive spirometry Incentive spirometry RT [place], [place] Respiratory Care Routine Every 2hr while awake until discontinued starting 05/21/2020 Comment on above: Every 2hr while awake until discontinued starting 05/21/2020 Initiate Oxygen Therapy Initiate Oxygen Therapy Protocol [place], [place] Protocol Respiratory Care Routine Daily until discontinued starting 05/08/2020 Comment on above: Daily until discontinued sta rting 05/08/2020 Lactate dehydrogenase, Lactate dehydrogenase, [facility], End: 05-20-2020 body fluid body fluid Lab Routine [place] One Time for 1 Occurrences starting 05/20/2020 until 05/20/2020 Comment on above: One Time for 1 Occurrences s tarting 05/20/2020 until 05/20/2020 Microscopic observation GRAM STAIN Microbiology [facility], End: 05-16-2020 Gram stain Nom (Unsp Routine One Time for 1 [place] spec) Occurrences starting 05/16/2020 until 05/16/2020 Comment on above: One Time for 1 Occurrences s tarting 05/16/2020 until 05/16/2020 Oxygen therapy Initiate Oxygen Therapy Protocol Respiratory [place] Care Routine Daily until discont inued starting 05/16/2020 Comment on above: Daily until discontinued sta rting 05/16/2020 , URINE , URINE Lab [facility] [place] End: 05-08-2020 One Time for 1 Occurrences starting 05/08/2020 until 05/08/2020 Comment on above: One Time for 1 Occurrences s tarting 05/08/2020 until 05/08/2020 Protein, body fluid Protein, body fluid Lab [place] End: 05-20-2020 Routine One Time for 1 Occurrences starting 05/20/2020 until 05/20/2020 Comment on above: One Time for 1 Occurrences s tarting 05/20/2020 until 05/20/2020 Pulse Oximetry Spot Pulse Oximetry Spot Check [place] End: 06-08-2019 Check Respiratory Care Routine One Time for 1 Occurrences starting 06/08/2019 until 06/08/2019 Comment on above: One Time for 1 Occurrences s tarting 06/08/2019 until 06/08/2019 Sputum induction Sputum induction Respiratory Ca re Routine [place] Daily until discontinued startin g 05/16/2020 Comment on above: Daily until discontinued sta rting 05/16/2020 Troponin I.cardiac Troponin Lab [facility] [place] End: 05-21-2020 [Mass/Vol] Time for 1 Occurrences starting 05/21/2020 until 05/21/2020 Comment on above: One Time for 1 Occurrences s tarting 05/21/2020 until 05/21/2020 [facility] Immunizations Immunization Date Immunization Notes Care Provider Facility 06-09-2022 tetanus toxoid, reduced Donte Caruso MD [facility] dip[facility] toxoid, and Work Phone: acellular pertussis vaccine, adsorbed 10-03-2019 influenza, injectable, Marilynn Trill LOSS PREVENTION COORDINATOR .EXCELLENCE CONSULTANT [facility] quadrivalent, contains Work Phone: preservative 08-25-2017 influenza nasal, Marilynn Trill LOSS PREVENTION COORDINATOR.EXCELLENCE CONSULTANT [facility] unspecified formulation Work Phone: 08-25-2017 influenza virus Cuco Guerrier [facility] vaccine, unspecified formulation 08-25-2017 influenza, seasonal, Marilynn Trill LOSS PREVENTION COORDINATOR.C HARNESS CLEANER [facility] injectable Work Phone: 08-10-2014 influenza virus Cuco Guerrier [facility] vaccine, unspecified formulation 08-10-2014 influenza virus Marilynn Trill LOSS PREVENTION COORDINATOR.EXCELLENCE CONSULTANT [facility] vaccine, whole virus Work Phone: Payers Date Payer Category Payer Unknown [facility] xxxxxxx xxxx MEDICAID xxxxxxxxxxx [id number] 2015-Present [id number] CLAIMS DEPARTMENT [address] [place] [address] 2015 Unknown [facility] xxxxxxx 3400 MEDICAID [id number] 2015-Present [id number] CLAIMS DEPARTMENT [address] [place] [address] 2015 Medicaid [facility] MEDICA[facility] [id number] [facility] [id number] 2015-Present [phone] [address] [place] [address] Medicaid 2015 Unknown [id number] 1968 Unknown [id number] 3.3.579.2. 668 1968 Unknown [id number] 3.3.579.2. 668 1968 Unknown [id number] 3.3.579.2. 182 1968 Unknown [id number] 3.3.579.2. 182 1968 Unknown [id number] 3.3.579.2. 668 1968 Unknown [id number] 3.3.579.2. 668 1968 Unknown [id number] 3.3.579.2. 627 1968 Unknown [id number] 3.3.579.2. 627 1968 Unknown [id number] 3.3.579.2. 651 1968 Unknown [id number] 3.3.579.2. 651 1968 Unknown [id number] 3.3.579.2. 651 1968 Unknown [id number] 3.3.579.2. 651 Unknown Unknown [id number] Worker's Compensation Social History Date Type Detail Facility Start: 06-08-2019 Tobacco smoking status Former smoker Tere carney [facility] End: 04-26-2020 [facility] Start: 10-25-1986 History of tobacco use Current smoker [facility] End: 09-24-2018 Start: 06-08-2019 Cigarettes smoked Tere Valderrama [facility] End: 04-26-2020 current (pack per day) - Reported Start: 06-08-2019 Alcohol intake [facility] Start: 04-20-2019 History SDOH Physical 7 [facility] Activity DPW Start: 04-20-2019 History SDOH Physical 3 [facility] End: 06-05-2022 Activity MPS Start: 04-20-2019 History SDOH Stress 2 Tere Graf [place] Start: 04-20-2019 History SDOH Financial 5 [place] Start: 04-20-2019 History SDOH Food Worry 1 [place] Start: 05-25-2019 Tobacco Comment pt quit 09/2018, off Tere [place] and smoker Start: 05-25-2019 Alcohol Comment Last Drinking 10/2017, Tere figuero[place], [place] hx EtoH for 20 years, attended AA program 2001 to 2013 Start: 1970 Sex Assigned At Not on [facility] Start: 04-26-2020 Tobacco use and Never used Tere Valderrama[place], [place] End: 05-07-2020 exposure Start: 05-07-2020 Alcohol intake [facility] End: 05-16-2020 alcohol (finding) Start: 08-01-2022 Exposure to SARS-CoV-2 Not sure [facility] End: 08-11-2022 (event) Start: 06-17-2020 Alcohol intake Ex-drinker (finding) Tere Singh [place] End: 08-11-2022 Start: 06-17-2020 Tobacco Comment pt quit 09/2018, off Adey He[facility] [place], [place] and on smoker Start: 06-17-2020 Alcohol Comment Last Drinking May [facility], [place] 2018, hx EtoH for 20 years, [...] Phone: Tobacco smoking status No Smoking Status [facility] Entered Work Phone: Sex Assigned At Female Diana Jace sorensen Start: 04-26-2020 Alcohol intake Current drinker of Rajesh farah alcohol (finding) Start: 04-26-2020 Tobacco Comment quit 17 months ago Rajesh farah Start: 07-19-2017 Alcohol Comment social [facility] ic Medical Equipment Procedure Code Equipment Code Equipment Original Equipment Identifi er Dates Text Cement Simplex Bone [id number] Start: High Viscosity - 02-08-2018 [id number] Insert Triathlon 3 [id number] Start: X3 9mm Tibial 02-08-2018 Condylar Stabilized Knee - [id number] Component Triathlon [id number] Start: 32mm Asymmetric X3 8 10mm Patellar Knee - [id number] Baseplate Triathlon [id number] Start: 3 Tibial Primary 02-08-2018 Cement Knee - [id number] Functional Status Date Assessment Result Facility 11-02-2022 Functional Status Room check performed [facility] 11-02-2022 Functional Status Mobile home [facility] 11-02-2022 Functional Status [facility] 11-02-2022 Functional Status [facility] 11-02-2022 Functional Status [facility] 11-01-2022 Functional Status Done [facility] 11-01-2022 Functional Status Activity Assistance Independ t [facility] 11-01-2022 Functional Status Assistive Device None [facility] 11-01-2022 Functional Status Ambulation in [facility] 10-31-2022 Functional Status [facility] 10-31-2022 Functional Status Done [facility] 10-07-2022 Functional Status Done [facility] 10-07-2022 [facility] Functional Status Mod I [facility] 2022 Functional Status Yes [facility] 2022 Functional Status Mobile home [facility] 10-04-2022 Functional Status [facility] 10-04-2022 Functional Status [facility] 10-04-2022 Functional Status [facility] 10-03-2022 Functional Status Sensory Deficits None [facility] Mental Status Date Assessment Result Facility 11-02-2022 Mental Status Oriented x [address] [facility] 11-01-2022 Mental [address] [facility] 11-01-2022 Mental [address] [facility] 10-07-2022 Mental Status Orientation Oriented x [address] [facility] 10-07-2022 Mental [address] [facility] 10-07-2022 Mental Status [facility] 10-06-2022 Mental Status Orientation Assessment Oriented x [address] [facility] 2022 Mental Status [facility] 2022 Mental Status [facility] Clinical Notes 05-06-2022 to 12-28-2022 Telephone Encounter - Nadege Morales - 11/16/2022 2:18 PM ESTTelephone Encounter - Krysten Iris - 11/10/2022 2:38 PM EST Note Date & Type Note Facility 12-28-2022 Note . [facility] Found ation MICRO - Microbiology ([place]) PROCEDURE: Blood Culture [id number] (bacterial) [*1] SOURCE: Blood BODY SITE: COLLECTED [...] Locations *1: This test was performed at: [address], [address]- , 12-28-2022 Note . [facility] MICRO - Microbiology [place] PROCEDURE: Blood Culture [id number] (bacterial) [*1] SOURCE: Blood BODY SITE: COLLECTED [...] Locations *1: This test was performed at: [address], [address] , 11-24-2022 Note [facility] HISTORY & PHYSICAL/DISCHARGE SUMMARY NAME ACCOUNT SEX AGE ADMIT DISCHARGE PT MED. RECORD# NUMBER DATE DATE TYPE LINDA, [id number] F 52 11/17/22 1 [facility] [id number] ROOM: [facility] DATE OF : 66 DICTATING PHYSICIAN: Lois [...] (more content not included)... 11-23-2022 Note . [facility] Found stephaniion MICRO - Microbiology ([place]) PROCEDURE: Blood Culture [id number] (bacterial) [*1] SOURCE: Blood BODY SITE: COLLECTED [...] Locations *1: This test was performed at: [address], [address]- [facility] 11-23-2022 Note . [facility] Found atrhiannon MICRO - Microbiology ([place]) PROCEDURE: Blood Culture [id number] (bacterial) [*1] SOURCE: Blood BODY SITE: COLLECTED [...] Locations *1: This test was performed at: [address], [address]- , 11-16-2022 Miscellaneous Formatting of this note migh t be different from the original. [facility] Notes No Show Documentation Ever Mckeon no showed for an appointment on 11/16/22 with Marilynn Carballo APRN.EXCELLENCE CONSULTANT at 2:00pm. She was scheduled for Hospital [...] is the patients third no show in [facility] last 12 months. Patient was not rescheduled at this time . Letter mailed : No Is this the Third or Fourth No Show ? N o Nadege Morales November 16, 2022 2:19 PM documented in this encounter 11-10-2022 Miscellaneous Formatting of this note migh t be different from the original. [facility] Notes No Show Documentation Ever Mckeon [...] is the patients first no show in [facility] last 12 months. Patient was rescheduled for 11/16/22 at 2:00 pm. Letter mailed : N/A Is this the Third or Fourth No Show ? N o Krysten Simmons November 10, 2022 2:39 PM documented in this encounter 11-05-2022 Note . [facility] ([place] PROCEDURE: Blood Culture [id number] (bacterial) [*1] SOURCE: Blood BODY SITE: COLLECTED [...] Locations *1: This test was performed at: [address], [address]- , [place] 11-05-2022 Note . [facility] MICRO - Microbiology [place] PROCEDURE: Blood Culture [id number] (bacterial) [O1 *1] SOURCE: Blood BODY SITE: [...] Comments O1: Blood Culture (bacterial) fax to [phone] Collection date on specimen label Performing Locations *1: This test was performed at: [address], [address]- , [place] 11-02-2022 Discharge summary [facility] Date of Service 11/02/2022 Discharge [...] mL, 0 Refill(s), 12/02/22 7:43:00 EST, Pharmacy: [facility], 165.1, cm, 10/31/22 1:25:00 EST, Height Other status: Discharge,11/02/22 7:44:0 0 EST, Discharged to: Home(Complete) Ordered: Discharge Activity ,Resume your pre-hospitalization activity, 11/02/22 7:44:00 EST Ordered: Discharge Diet,Fol low the diet changes as instructed by the dietitian, 11/02/22 7:44:00 EST Discontinued: Discharge Andrew e Equipment,Bedside commode, 99 month(s), 11/02/22 8:59:00 [facility] Hospital Course 52-year-old female with mul tiple [...] (2) times a day as needed Anxiety. [id number] Milligram by mouth every 6 hours as [...] three (3) times a day. Refills: 0. [id number] Milligram by mouth daily a t bedtime. rifaximin (Xifaxan 550 mg oral tablet)1 tab(s) by mouth two (2) times a day. rifaximin (Xifaxan 550 mg or al tablet)1 tab(s) by mouth two (2) times a day. Refills: 0. Follow Up Follow Up with TIM ROBLEDO CNP When Within 1-2 days Why: Please call the office to schedule a follow up appointment Where: [address] [place] [address]- Follow Up Appointments No qualifying data available. [...] Education 11/02/2022 10:06:32 Ammonia Test Ammonia Test [facility] instructions Why am I having this [...] Reference ranges may vary among labs a [facility]. For this test, common reference ranges are: [...] 6 Document Revised: 09/23/2018 Document Reviewed: 05/10/2018 [employer] Patient Education 2020 Vimbly. Follow Up Care 10/31/2022 01:02:36 With:TIM ROBLEDO CNP Address: [address] [place] [address]- When:1-2 days Comments:Please call the office to stormy álvarez a follow up appointment 11-02-[address] [facility] Discharge Instructions Thank you for allowing Preshosergio herron to assist you with your healthcare [...] schedule a follow up appointment Where: [address] [place] [address] [address] [place] [address]- The Following Activity and Diet Have Bee [...] a day Duration: 30 Days Pickup at [facility] 7790 Unchanged buPROPion (buPROPi on 300 mg/ 24 [...] Two (2) times a day Pharmacy Information [facility]: [address] [place], [place] [id number] [phone] Please take this list to you r [...] may report side effects to FDA at 8-048-TIT-9807. What other drugs will affect lactulose? Other drugs may affect lact ulose, including prescription and bhim-zit-kswrvzq medicines, vitamins, and herbal products. Tell your [...] to ensure that the information provided by [employer]. ('[employer]') is accurate, up-to-date, and complete, but no guarantee is made to that effect. Drug information con tained herein may be time se nsitive. [employer] information has been compiled for use by healthcare practitioners and consumers in the [place] and therefore [employer] does not warrant that uses outside o f the [place] are appr opriate, unless specifically indicated otherwise. [employer]'s drug information does not endorse drugs, diagnose patients or recommend therapy. [employer] drug information is an in formational resource [...] or ap propriate for any given patient. [employer] does not assume any responsibility for any aspect of healthcare administered with the aid of information [employer] provides. The informat ion contained herein is not intended to cover all possible uses, directions, precautions, warnings, drug interactions, allergic reactions, or adverse effects. If you have questions about the drugs you a re taking, check with your doctor, nurse or pharmacist. Copyright 4558-1049 [employer]. Version: 3.01. Revision Date: 07/29/2021. Education Materials [...] Reference ranges may vary among labs a [facility]. For this test, common reference ranges are: Adult: 10 80 mcg/dL or 6 47 micromol/L ( SI units). Child: 40 80 mcg/dL. [place]: 90 150 mcg/dL. What do the results [...] to receive it can visit one of [facility] vaccine clinics. There are many vaccine clinic locations within the [facility]. For locations and available times, please visit https://[email or web address].[place].gov/. It is important to note that some COVID mobile vaccine clinics are held outdoors and may be canceled in rainy or stormy conditions. To learn more about pediatr ic vaccinations (ages 5-11), we invite you to visit the [employer] webpage. https://www.[employer].org/pages/7143-Pwdjp-Xuokywyfauh-Edmfnwykdq-Aeleq-Bkt stions.html T o learn more about the COVID -19 vaccine, we invite you to visit the [employer] website for a list of frequently asked questions. [email or web address]://Chasqui Bus/[email or web address]-aow-Mbtgpbcg/asqbo-Kkmpbep-Noszacsxfv_ Asked-Questions.pdf [facility] Patient Portal Access I nstructions: Stay connected with your [facility] and access your personal medical information anytime with the [facility] Patient Portal.If you would like a full copy of your medical records, please conta ct the [facility] Records Department, Wednesday through Wednesday between 8a.m. and 4:30p.m. Please follow the directions below to access the portal: 1.Access the email account y jaquan provided upon registration to the hospital.2.Look for an invitation email from [facility].3.Open the email and access the invitation link: Accept Invitation to [facility] an [facility]4.Fill in the required gonzáles to create your account. Sign into www.[email or web address] Bus wi th your username and password that [...] you will allow to register on the [employer] Patient Portal for access to your information. You can also access the [employer] Patient Portal on the gamigo kingsley. Simply click on Health Records under Health Data and then click on the [employer] logo. HOW TO SAFELY DISPOSE OF PRESCRIPTION [...] Call your local pharmacy or go to [email or web address] to find one close to you.3.Make use of ho usehold items: Use cat litte r or old coffee grounds to dispose medications if other options are not available. Mix your drugs with these household products, seal them in an airtight container and throw it into the garbage. Call [place] EPA: [phone] to be sure your drugs can be [...] aware that I should contact my doctor. Patient/Front Tender Signcrow ture: Date/Time: Relationship to Patient: Witness Name/Signature: Date/Time: 11-01-2022 Note Subjective: Patient seen for hepatic enc ephalopathy [facility] patient was examined and nette luated [...] Resp Rate17(NOV 01:)16(OCT 31 23:53 )18(OCT 31:) CWW910(NOV 01:)131(NOV 01:)C 1 60(OCT 31:) DBP75(NOV 01:)74(NOV [...] from: Title:Clinical Document Author:MUSTAPHA WOODWARD MD Date:10/31/22 [facility] Hospitalist History and Physical Date of Admission: 10/31/2022 Chief complaint: Change in mental status History of present illness: History is t aken from talking with the emergency room physician at [facility] as well as talking with the patient. [...] discharged to follow- up with her primary wreath inspector at [facility]. Patient is not able to tell [...] Denies abdominal pain. Labs and imaging from [facility] CT head without contrast per emergency r [...] her transferred to where they had a wreath inspector. Past medical history: anxiety/depression, alcohol abuse, hyper [...] cloNIDine 0.1 mg oral tablet 0.01 mg, NE N, Oral ferrous sulfate 325 mg (65 [...] plan: Patient presents as a transfer from [facility] emergency room due to having encephalopathy. Hepatic [...] Patient can follow-up outpatient with her primary wreath inspector in [place]. Prophylaxis SCDs CODE STATUS full code [facility] 01-07-2023 NoteSubjective: Patient seen for hepatic encephalopathy patient was examined and evaluated today, patient was admitted and seen earlier by one of our executive officer special warfare team, I examined her again this morning she [...] 31:45) Resp Rate16(OCT 31:09)16(OCT 31 07:09)17(OCT 31:45) WUX807(OCT 31:09)103(OCT 31:09)129(MELANIE 07 01:45) DBPC 49(OCT 31:09)C [...] by SOHA DANIELS MD on 10/31/2022 08:21 [facility]01-07-2023 History and physical note [facility] Hospitalist History and Physical Date of Admission: 10/31/2022 Chief complaint: Change in mental status History of present illness: History is taken from talking with the emergency room physician at [facility] as well as talking with the patient. [...] ultimately discharged to follow-up with her primary wreath inspector at [facility]. Patient is not able to tell me for how long she has been getting progressively worsening confusion. She did tell me that she is compliant with her medications. She states that she takes the lactulose and that she has been having around 3 bowel movements a day. She denies fevers, chills or night sweats. Denies abdominal pain. Labs and imaging from [facility] CT head without contrast per emergency room [...] her transferred to where they had a wreath inspector. Past medical history: anxiety/depression, alcohol abuse, hypertension, [...] plan: Patient presents as a transfer from [facility] emergency room due to having encephalopathy. Hepatic [...] Patient can follow-up outpatient with her primary wreath inspector in [place]. Prophylaxis SCDs CODE STATUS full code Digitally Signed by MUSTAPHA WOODWARD MD on 10/31/2022 02:11 [facility]12-15-2022 Note. MICRO - Microbiology PROCEDURE: Blood [...] Order Comments O1: Blood Culture (bacterial) fax [phone] Performing Locations *1: This test was performed at: [facility], [address] [place] [address], [facility] , [facility] ([place])10-08-2022 Note. MICRO - Microbiology PROCEDURE: Blood Culture [...] Order Comments O1: Blood Culture (bacterial) fax [phone] Performing Locations *1: This test was performed at: [facility], [address] [place] [address], [place], [address]- , [facility] ([place])10-07-2022 Note Discharge Instructions Thank you for allowing [facility] to assist you with your healthcare needs. The following is important discharge information regarding your hospital visit. Your Care Team TIM ROBLEDO CNP Your Diagnosis Cirrhosis Hepatic encephalopathy What to do next Instructions From Your Doctor Thank you for choosing [facility] - it has been a pleasure [...] to schedule follow up appointment. Where: [address] [facility] [address] [place] [phone] Follow Up with PREMA STAHL MD When In 1 week Why: Please call the office to schedule follow up appointment. Where: [address] [place] [address] Hematology [place] [phone] Follow Up with RAYA ALMAZAN MD When Within 1-2 days Why: Please call the office to schedule appointment Where: [address] [facility] [address] [place] [phone] Follow Up with MAINOR COLE MD When Within 1-2 days Why: Choice #1 Where: [facility] [address] [place] [address]- Follow Up with FRANCESCA VILLEGAS MD When Within 1-2 days Why: Choice #2 Where: [address] [facility] [address] [place] [address]- Follow Up with JIMBO DURANT DO When Within 1-2 days Why: Choice #3 Where: [facility] [address] [facility] [place] [address]- The Following Activity and Diet Have Been [...] 10 days, Results Notify to: TIM ROBLEDO EXCELLENCE CONSULTANT, 10/07/22 12:00:00 EST Discharge Radiology No qualifying [...] Once a day Pickup at [facility] New furosemide (Lasix 20 mg oral tablet) 1 tab(s) by mouth Two (2) times a day Pickup at [facility] #13817 New lactulose (lactulose 10 g/ 15 mL oral syrup) 45 Milliliter by mouth Every 6 hours Duration: 30 Days Pickup at [facility] #30116 New propranolol (propranolol 10 mg oral tablet) 1 tab(s) by mouth Three (3) times a day Pickup at [facility] #45156 New rifaximin (Xifaxan 550 mg oral tablet) 1 tab(s) by mouth Two (2) times a day Pickup at [facility] #42516 Unchanged busPIRone (busPIRone 10 mg oral tablet) [...] Daily at bedtime Pharmacy Information [facility] #[id number]: [address] [place], [place] [id number] [phone] Please take this list to your next [...] care provider or a diet and nutrition technician (dietitian) to develop an eating plan. ? [...] provider before taking any new medicines, including fpju-eib-cswjhuu medicines. Rest as needed. Eat a well-balanced [...] Document Reviewed: 08/31/2018 Elsevier Patient Education 2020 [employer] Additional Information VACCINATE! IT SAVES LIVES! Members of the community who have not yet received the COVID-19 vaccine and would like to receive itcan visit one of [facility] vaccine clinics. There are many vaccine clinic locations within the [facility].For locations and available times, please visit https://gettheshot.[email or web address].[place].gov/. It is important to note that some COVID mobile vaccine clinics are held outdoors and may be canceled in rainy or stormy conditions. To learn more about pediatric vaccinations (ages 5-11), we invite you to visit the [facility] webpage. https://www.[employer].org/pages/5248-Yhozi-Yvviqrzxoei-Yjvtrpmueu-Tdqxc-Bnj stions.html To learn more about the COVID-19 vaccine, we invite you to visit the [employer] website for a list of frequently asked questions. [email or web address]://Chasqui Bus/[email or web address]-[email or web address]/[email or web address]-Wlubgzxuqt_Xm ked-Questions.pdf [facility] Patient Portal Access Instructions: Stay connected with your healthcare team and access your personal medical information anytime with the [facility] Patient Portal.If you would like a full copy of your medical records, please contact the [facility] Medical Records Department, Wednesday through Wednesday between 8a.m. and 4:30p.m.Please follow the directions below to access the portal: 1.Access the email account you provided upon registration to the hospital.2.Look for an invitation email from [facility].3.Open the email and access the invitation link: Accept Invitation to [facility]4.Fill in the required gonzáles to create your account. Sign into www.[email or web address] Bus with your username and password that you [...] who you will allow to register onthe [employer] Patient Portal for access to your information. You can also access the [employer] Patient Portal on the gamigo kingsley. Simply click on Health Records under Health Data and then click on the [employer] logo. HOW TO SAFELY DISPOSE OF PRESCRIPTION [...] Call your local pharmacy or go to [email or web address] to find one close to you.3.Make use of household items: Use cat litter or old coffee grounds to dispose medications if other options are not available. Mix your drugs with these household products, seal them in an airtight container and throwit into the garbage. Call [facility]: [phone] to be sure your drugs can be [...] that I should contact my doct or. Patient/Front Tender Signature: Date/Time: Relationship to Patient: Witness Name/Signature: Date/Time[id number] Discharge summary Date of Service 10/07/2022 Discharge [...] 10 days, Results Notify to: TIM SPAIN EXCELLENCE CONSULTANT, 10/07/22 12:00:00 EST Ordered: Lasix 20 mg oral tablet,Dose : 20 mg = 1 tab(s), Oral, BID, # 60 tab(s), 0 Refill(s), Pharmacy: [facility][id number], 165, cm, 10/03/22 11:32:00 EST, Height Other status: Magnesium Level,10/07/22 5:01:00 EST, Next AM Draw (one day only), Blood, Once, Stop date 10/07/22 4:00:00 EST(Complete) Ordered: Xifaxan 550 mg oral tablet,Dose : 550 mg = 1 tab(s), Oral, BID, # 60 tab(s), 0 Refill(s), Pharmacy: [facility] #[id number], 165, cm, 10/03/22 11:32:00 EST, Height Ordered: ferrous sulfate 325 mg (65 mg elemental iron) oral delayed release tablet,Dose : 325 mg = 1 tab(s), Oral, qDay, # 30 tab(s), 0 Refill(s), Pharmacy: [facility] #[id number], 165, cm, 10/03/22 11:32:00EST, Height Ordered: lactulose 10 g/15 mL oral syrup,Dose : 30 gram(s) = 45 mL, Oral, q6h, X 30 day(s), # 5,400mL, 0 Refill(s), 11/06/22 11:45:00 EST, Pharmacy: [facility] #[id number], 165, cm, 10/03/22 11:32:00 EST, Height Ordered: propranolol 10 mg oral tablet,Dose : 10 mg = 1 tab(s), Oral, TID, # 90 tab(s), 0 Refill(s), Pharmacy: [facility] #[id number], 165, cm, 10/03/22 11:32:00 EST, [facility] Hospital Course 52-year-old female PMH HTN, depression, anxiety, bipolar psychosis, alcohol abuse in the past. Patient presented to outside hospital with altered mental status transferred to [facility] 10/03 for GI/hepatology evaluation. CT brain negative [...] recommending outpatient EGD/colonoscopy with Dr. Almazan in [place]. Patient with pancytopenia including thrombocytopenia and splenomegaly [...] F1 1.66-1.77 m/s (8.29 kPa - 9.40 kPa)Aoch-jn-yzocgsft risk of clinically significant liver fibrosis. (METAVIRStage [...] 10/07/2022 Patient Instructions Thank you for choosing [facility] - it has been a pleasure [...] to schedule follow up appointment. Where: [address] [facility] [address] [place] [address]- [phone] Follow Up with PREMA STAHL MD When In 1 week Why: Please call the office to schedule follow up appointment. Where: [address] [facility] Hematology [place] [address]- [phone] Follow Up with RAYA ALMAZAN MD When Within 1-2 days Why: Please call the office to schedule appointment [facility]: [address] [facility] [address] [place], [place] [phone] Follow Up with MAINOR COLE MD When Within 1-2 days Why: Choice #1 Where: [facility] [address] [facility] [address] [address] [place] [address]- Follow Up with FRANCESCA VILLEGAS MD When Within 1-2 days Why: Choice #2 Where: [address] [facility] [address] [place] [address]- Follow Up with JIMBO DURANT DO When Within 1-2 days Why: Choice #3 Where: [facility] [address] [facility] [place] [address]- Follow Up Appointments No qualifying data available. [...] AMEE RICCI HARMAN Maria on 10/07/2022 12:11 [facility]12-14-2022 Gastroenterology Progress note Date of Service 10/07/2022 [...] Signed by JENNIFER SMITH on 10/07/2022 09:05 [facility]12-13-2022 Hematology Consult note Date of Service 10/06/2022 Reason for Consultation pancytopenia This is a split/shared visit between Dr. Stahl and myself History of Present Illness Patient is a 51-year-old female with past medical history of HTN, depression, anxiety, bipolar psychosis, alcohol abuse. Patient presented to [facility] with AMS. She was transferred to [facility] on 10/03 for GI evaluation. Per [...] Signed by SWAPNIL STRATTON on 10/06/2022 12:28 [facility]12-13-2022 Note Date of Service 10/06/2022 Chief Complaint Hepatic encephalopathy Subjective 51-year-old female PMH HTN, depression, anxiety, bipolar psychosis, alcohol abuse in the past. Patient presented to outside hospital with altered mental status transferred to [facility] 10/03 for GI/hepotology evaluation. CT brain negative [...] F1 1.66-1.77 m/s (8.29 kPa - 9.40 kPa)Xqmm-wv-vgmjpndf risk of clinically significant liver fibrosis. (METAVIRStage [...] by HARMAN LUBIN MD on 10/06/2022 05:15 [facility]12-13-2022 Hematology Consult note Date of Service 10/06/2022 Reason for Consultation pancytopenia This is a split/shared visit between Dr. Stahl and myself History of Present Illness Patient is a 51-year-old female with past medical history of HTN, depression, anxiety, bipolar psychosis, alcohol abuse. Patient presented to [facility] with AMS. She was transferred to [facility] on 10/03 for GI evaluation. Per [...] Signed by SWAPNIL STRATTON on 10/06/2022 12:28 [facility]12-13-2022 Gastroenterology Progress note Date of Service October [...] by HAN YOUNG MD on 10/06/2022 09:44 [facility]12-13-2022 Gastroenterology Progress note Date of Service [...] by HAN YOUNG MD on 10/06/2022 09:44 [facility]12-13-2022 Note. MICRO - Microbiology PROCEDURE: Urine [...] Locations *1: This test was performed at: [facility], [address] [place] [address], [address] , [facility] ([place])2022 Note Date of Service 2022 Chief Complaint [...] by ANAM KAISER DO on 2022 07:23 [facility]12-12-2022 Nurse Progress note2 bottles of med. & inhaler in med. room Digitally Signed by Charmaine Levy LPN on 2022 12:07 [facility]12-12-2022 Hospital Discharge instructions Patient Jyazjtkmc30/12/2022 09:44:38CirrhosisCirrhosis Cirrhosis is long-term (chronic) liver injury. [...] care provider or a diet and nutrition technician (dietitian) to develop an eating plan. ?Restricting [...] provider before taking any new medicines, including lzjq-bbf-myhmgmq medicines. Rest as needed. Eat a well-balanced [...] 10/11/2006 Document Revised: 01/31/2020 Document Reviewed: 08/31/2018 [employer] Patient Education 2020 [employer] Follow Up Care10/03/2022 11:19:14With:TIM ROBLEDO CNP Address: [address] [place] [address] [phone] When:1-2 days Comments:Please call the office to schedule follow up appointment.With: PREMA STAHL MD Address: [address] [place] [address] Hematology [place] [phone] When:Within 1 Week(s) Comments:Please call the office to schedule follow up appointment.With:RAYA ALMAZAN MD Address: [address] [place], [place] [address]- [phone] When:1-2 days Comments:Please call the office to schedule appointmentWith:MAINOR COLE MD Address: [facility] [address] [facility] [address] [place] [address]- When:1-2 days Comments:Choice #1With:FRANCESCA VILLEGAS MD Address: [address] [facility] [address] [place] [address]- When:1-2 days Comments:Choice #2With:JIMBO DURANT DO Address: [facility] [address] [place] [address] [place] [address]- When:1-2 days [facility] Progress note Date of [...] improved. She mentioned she lives far from [place]. I gave her the name of Dr. Barbosa in [place] for follow-up Digitally Signed by HAN YOUNG MD on 2022 09:46 [facility]12-12-2022 Nurse Progress noteAttempted to call Vaibhav as patient wanted to talk to him. First call resulted in a busy tone, and the second call said that number was no loner in service. Digitally Signed by Art Peralta LPN on 2022 01:32 [facility]12-11-2022 Note ORIGINAL EXAMINATION: Hepatic elastography TECHNIQUE: [...] 1.66-1.77 m/s (8.29 kPa - 9.40 kPa) Lnoj-nf-dliljmtg risk of clinically significant liver fibrosis. (METAVIR [...] Sign Date: 10/04/2022 8:40:55 PM Ordering Provider: [facility]12-11-2022 Note Date of Service 10/04/2022 Chief [...] by ANAM KAISER DO on 10/04/2022 02:49 [facility]12-11-2022 Gastroenterology Progress note Date of Service October [...] by HAN YOUNG MD on 10/04/2022 10:25 [facility]12-11-2022 Note ORIGINAL EXAMINATION: Hepatic elastography TECHNIQUE: [...] 1.66-1.77 m/s (8.29 kPa - 9.40 kPa) Jvqc-fg-mqzrgmjo risk of clinically significant liver fibrosis. (METAVIR [...] Sign Date: 10/04/2022 8:40:55 PM Ordering Provider: [facility]12-10-2022 Note ORIGINAL EXAMINATION: ONE XRAY VIEW [...] Sign Date: 10/03/2022 3:48:50 PM Ordering Provider: [facility]12-10-2022 Note ORIGINAL EXAMINATION: ONE XRAY VIEW [...] Sign Date: 10/03/2022 3:48:50 PM Ordering Provider: [facility]12-10-2022 Evaluation + Plan noteExtracted from: Title:History [...] Monitoring Bedside PRN Call Parameters Call Parameters Language And Literature Division Chair Code Status Communication Order (continuous) Communication Order [...] tachycardic on presenta tion and also at [facility] in the 110s. Presenting here at 102. [...] recognition software and may contain typographical errors. [facility] 12-10-2022 Gastroenterology Consult note Date of [...] her home medications). Patient initially presented to [facility] in [facility] for further evaluation and treatment of shortness of breath, confusion and altered mentalstatus. Reportedly patient lives alone but was not acting quite right and had been noncompliant withmedications. On arrival to [facility] she was noted to have multiple lab abnormalities including hyperammonemia with ammonia level of 115. LFTs were also noted to be abnormal with T bili 0.7, AST 38, ALT 31, and alk phos 189. She was transferred to [facility] for further management. Noted to have [...] does not believe she follows with a wreath inspector. Her endoscopy history is questionable. She has no known family history for GI disease or malignancies. She states that she has a current smoker and drinker. Transfer sheet from [facility] states that she has been sober for [...] Signed by NIRALI OZUNA on 10/03/2022 01:06 [facility]12-10-2022 Gastroenterology Consult note Date of Service 10/03/2022 Reason for Consultation Decompensated cirrhosis, hepatic encephalopathy Referring Physician Dr. Perez History of Present Illness The patient is a 51-year-old female, who has a past medical history significant for probable cirrhosis likely secondary to alcohol versus other, HTN and likely underlying psych disease possibly depression/anxiety (per review of her home medications). Patient initially presented to [facility] in [facility] for further evaluation and treatment of shortness of breath, confusion and altered mentalstatus. Reportedly patient lives alone but was not acting quite right and had been noncompliant withmedications. On arrival to [facility] she was noted to have multiple lab abnormalities including hyperammonemia with ammonia level of 115. LFTs were also noted to be abnormal with T bili 0.7, AST 38, ALT 31, and alk phos 189. She was transferred to [facility] for further management. Noted to have [...] does not believe she follows with a wreath inspector. Her endoscopy history is questionable. She has no known family history for GI disease or malignancies. She states that she has a currentsmoker and drinker. Transfer sheet from [facility] states that she has been sober for [...] . CT scan of abdomen pelvis at [facility] was notable for small, nodular appearing liver, [...] Signed by NIRALI OZUNA on 10/03/2022 01:06 [facility]12-10-2022 History and physical note Date of Service 10/03/22 Chief Complaint Altered mental status History of Present Illness 51-year-old lady past medical history of alcohol abuse, hypertension, depression anxiety, bipolar psychosis presents due to altered mental status from [facility]. Per family she has not been taking [...] Monitoring Bedside PRN Call Parameters Call Parameters Language And Literature Division Chair Code Status Communication Order (continuous) Communication Order [...] slightly tachycardic on presentation and also at [facility] in the 110s. Presenting here at102. She [...] by JALEESA PEREZ MD on 10/03/2022 12:22 [facility]10-18-2022 Hospital Discharge instructions Discharge InstructionsDonte Caruso MD - 08/11/2022 12:02 PM EDT Strep swab was negative; Would get covid testing' Follow with your doctor AttachmentsThe following attachments cannot be sent through Care Everywhere.Sore Throat (Australian)documented in this encounterSUMMA Work Phone: [phone]) 105-932308-22-2022 NoteHNO ID: [id number] Author: Priya David Service: Pharmacy Author Type: ? Type: Plan of Care Filed: 06/15/2022 2:08 PM Note Text: PHARMACY BEDSIDE DELIVERY SERVICE Patient Name: Ever Mckeon The marked outpatient medications were Filled at: [place] and delivered to the patient's bedside to [...] Commonly known as: NAPROSYN Priya Frankie PAGER: [phone] June 15, 2022 2:07 [facility]08-22-2022 NoteHNO ID: [id number] Author: Emmett Meadows RPh Service: Pharmacy Author Type: Pharmacist Type: Plan of Care Filed: 06/15/2022 12:50 PM Note Text: PHARMACY MEDICATION REVIEW Patient Name: Ever Mckeon : 1970 The following medications were updated within the MANAGER OF BROADCAST CONTENT medication list: Medications ADDED to MANAGER OF BROADCAST CONTENT medication list None Medications CHANGED on MANAGER OF BROADCAST CONTENT medication list None Medications REMOVED from MANAGER OF BROADCAST CONTENT medication list Aspirin Additional comments: Patient states [...] name, Medication dose, and Medication frequency and [facility] records Medication nonadherence identified: No barriers noted Reconciliation completed: Yes Completed by: [facility] MANAGER OF BROADCAST CONTENT medications addressed by LIP Patient interested in Bedside Delivery Services or using CC OP Pharmacy at discharge? Yes. Discharge Pharmacy Updated Preferred outpatient pharmacy: [id number] [place] [address] [address] [facility] [facility] [phone] [address] [facility] Allergies: Vicodin [Hydrocodon* GI Upset [...] bedtime. Facility-Administered Medications: None Emmett Meadows RPh 06/15/2022[facility]08-22-2022 NoteHNO ID: [id number] Author: Yeni Rose RN Service: Care Management Author Type: Registered Nurse Type: Care Mgt Initial Assessment Filed: 06/15/2022 11:17 AM Note Text: CARE MANAGEMENT: ASSESSMENT AND DISCHARGE PLAN SERVICE DATE: June 15, 2022 SERVICE TIME: 11:14 AM PRIMARY CARE PHYSICIAN: No primary care provider on file. Phone: None Primary Contact: Extended Emergency Contact Information Primary Emergency Contact: Lida Green Mobile Relation: Assistance Specialist ADMISSION STATUS: Inpatient Insurance Provider: [employer] MEDICAID NEEDS PRIOR TO DISCHARGE Needs Prior to Discharge: To Be Determined POTENTIAL TRANSITION PLANS Based on clinical judgement, Care Management will address the following needs: Social Patient's perception of need for this admission: confusion ADVANCE DIRECTIVES Current Advance Directive: Health Care Power of Director Of Marketing Analytics In Chart: Yes Up To Date and [...] discharge within 30 days: No PATIENT SCREEN Patient/Front Tender Stated Goals: To have reduction in symptoms;To improve my functional status Under the care of a PCP?: Yes, Internal Provider Provider Name: Patient has new PCP at [facility]. She cannot recall the name. but last saw her Wednesday or . Does the patient have transportation upon discharge?: (unsure) Situation: Patient from a sober living home Use of any community resources?: Yes Situation: Patient has caseworker protective services through [employer], resides in a sober living home at [...] in regards to releasing information to the warehouse specialist . At this time, I do not anticipate any dc TCC needs. SIGNATURE: Yeni Rose RN PATIENT NAME: Ever Mckeon DATE: June 15, 2022 TIME: 11:14 AM CONTACT #: [phone]022 NoteHNO ID: [id number] Author: Robby Caldera MD Service: Hospital Medicine [...] Internal Medicine Date: 06/15/2022 Time: 6:[address] [facility]GRESS NOTE Patient Name: Ever Mckeon Date: [...] Insomnia Prior ED visit for aphasia [at [facility] on 08/23/2021]: The patient presented with difficulty [...] a moderate hiatal hernia She presented to [facility] 06/12/2022 for evaluation of stroke-like symptoms. [...] adequate saturations on room air. The patient's caseworker protective services was present, and reports that in the [...] ammonia elevated at 107 (more content not included)...[facility]08-21-2022 NoteHNO ID: [id number] Author: Fabby Frances MD Service: Hospital Medicine [...] PM: You may reach the House Medicine graphic design intern currently assigned to this patient by finding their pager number on the treatment team (they will be assigned as the graphic design intern or resident). It is the last four digits in the phone number beginning with ([phone]). We encourage the use of [employer] [facility] Secure Chat. SUBJECTIVE HPI: Ms. Ever Mckeon [...] Insomnia Prior ED visit for aphasia [at [facility] on 08/23/2021]: The patient presented with difficulty [...] a moderate hiatal hernia She presented to [facility] 06/12/2022 for evaluation of stroke-like symptoms. [...] adequate saturations on room air. The patient's caseworker protective services was present, and reports that in the last 6 months that she has been working with the patient, the patient has not had any relapse of drug or alcohol use. Stroke Team was called for the patient's symptoms, and Dr. Itrat [Neurology] came to bedside to (more content not included)...[facility]08-20-2022 NoteHNO ID: [id number] Author: Shravan Huitron MD Service: Critical Care [...] PM: You may reach the House Medicine graphic design intern currently assigned to this patient by finding their pager number on the treatment team (they will be assigned as the graphic design intern or resident). It is the last four digits in the phone number beginning with ([phone]). We encourage the use of [facility] [facility] Secure Chat. SUBJECTIVE HPI: Ms. Ever Mckeon [...] Insomnia Prior ED visit for aphasia [at [facility] on 08/23/2021]: The patient presented with difficulty [...] a moderate hiatal hernia She presented to [facility] 06/12/2022 for evaluation of stroke-like symptoms. [...] adequate saturations on room air. The patient's caseworker protective services was present, and reports that in the last 6 months that she has been working with the patient, the patient has not had any relapse of drug or alcohol use. Stroke Team was called for the patient's symptoms, and Dr. Benavidez [Neurology] came to bedside to evaluate the patient. Initial lab work showed microcytic anemia with hemoglobin 9.9, platelets 99, (more content not included)...[facility]08-19-2022 History of Past illness Narrative Problem Noted Date Resolved Date Encephalopathy acute 06/12/2022 06/15/2022 documented as of this encounter (statuses as of 11/10/2022)[facility] 06-12-2022 History of Past illness Narrative Problem Noted Date Resolved Date Encephalopathy acute 06/12/2022 06/15/2022 documented as of this encounter (statuses as of 11/16/2022)[facility] 06-12-2022 NoteHNO ID: [id number] Author: Ivonne Montoya RPh Service: Pharmacy Author [...] No TNKase Signature: Aurora Montoya RPh Pager/Phone: [phone] Date of Service: 06/12/2022 Time of Service: 10:41 [facility]07-13-2022 NoteCOVID 19 RESULT: SARS-CoV-2 (Agent of COVID-19) Not Detected by RT-PCR or equivalent method. This test has been authorized by FDA under an Emergency Use Authorization (EUA). INFLUENZA A PCR: Negative for Influenza A by RT-PCR INFLUENZA B PCR: Negative for Influenza B by RT-PCR RSV PCR: Negative for Respiratory Syncytial Virus (RSV) by PCRLincolnhealthComment on above:Performed By: #### [id number] ####[facility] LABORATORYCLIA [id number] [place] [address] [place] OF AMERICAEvaluation note Diagnosis Anxiety state- Primary Anxiety state, unspecified Shortness of breath Shaking Abnormal involuntary movements documented in this [facility] Work Phone: Evaluation note Diagnosis Bronchitis- Primary Bronchitis, not specified as acute or ch ronic Throat pain documented in this [facility] Work Phone: Hospital course NarrativeNo data available for this [facility] Hospital Discharge instructionsAttachmentsThe following attachments cannot be sent through Care Everywhere.Anxiety Disorder (Australian) Video: Anxiety: How to Change Anxious Thoughts (Australian)Video: Anxiety: Treatment Options (Australian)SOB (Shortness of Breath) (Australian)documented in this [facility] Work Phone: Summary Purpose Family History [...] Documents on File Type Date Recorded Patient Front Tender Explanati on Advance Directives and Living Will Power of Director Of Marketing Analytics Documents on File Type Date Recorded Patient Front Tender Explanati on Advance Directives and Living Will Power of Director Of Marketing Analytics Latest Code Status on File Code Status Date Activated Date Inactivated Comments Full Code 05/08/2020 5:40 AM Documents on File Type Date Recorded Patient Front Tender Explanati on ACP-Advance Directive ACP-Power of Director Of Marketing Analytics Latest Code Status on File Code Status [...] Documents on File Type Date Recorded Patient Front Tender Explanati on ACP-Advance Directive ACP-Power of Director Of Marketing Analytics Latest Code Status on File Code Status Date Activated Date Inactivated Comments Full Code 07/18/2020 8:18 AM 07/18/2020 12:49 PM Full Code 05/16/2020 2:06 AM 05/23/2020 1:06 AM Full Code 05/08/2020 5:40 AM 05/11/2020 6:29 PM Documents on File Type Date Recorded Patient Front Tender Explanati on Advance Directive(s) 02/09/2018 2:59 PM [...] mild sore throat. You may use an kbkk-cco-mflflwk chloraseptic spray, gargle with warm salt water, [...] mild sore throat. You may use an nzbn-kay-mxpfizd chloraseptic spray, gargle with warm salt water, [...] Sveta Richards [facility] Op[facility] [address] [place] [phone] [place], [place] Phone: [phone] Phone: Scheduling Instructions [facility] [place] Ophthalmology - [address] [address] Status Reason Specialty Diagnoses / Referred By Referred To Procedures Contact Contact Open Specialty Gastroenterology Diagnoses Primary biliary cirrhosis (HCC) Sveta Richards [facility] Gastro Services [facility] [address] [address] Phone: Fax: Scheduling Instructions [facility] [place] Gastroenterology [address] [place] [address], [address] [address] Fax: Status Reason Specialty Diagnoses / Referred By Referred To Procedures Contact Contact Open Specialty Behavioral Diagnoses Anxiety state Chevy Whittington CM [facility] Health MD [facility] Required [address] [place] [address] Phone: Fax: Fax: Scheduling Instructions [place] [facility] - [facility] [address] [place] [address] Status Reason Specialty Diagnoses / Referred By Referred To Procedures Contact Contact Open Specialty Family Medicine Diagnoses Anxiety state Chevy Whittington [facility] / Internal MD [facility] Required Medicine [address] [facility] [address] [place] [address] Phone: Fax: Scheduling Instructions [facility] Medicine [address] [place] [address] History of Present Illness Delia Hurd RN - 05/11/2020 4:03 PM EDTAVS, medication list, and follow up appointments reviewed with pt. Pt given printed papers for eye doctor, labs and GI doctor. Paper script for oxycodone given to pt. Pt aware that 2 medications need to be picked up at [facility]. . Sveta Leslie MD - 05/11/2020 11:13 AM EDT [facility] Progress Note Ever Dyson Linda : 1970(49 y.o.) Date: 05/11/20 Subjective: CC: Abd pain Feels like abd pain is improving, although later says pain meds are no longer working. Is having intermittent nausea. States vision is continuing to improve. Scheduled Meds: b ysbypkt-R-J-zinc 1 tablet Oral Daily vitamin C 250 [...] wellbutrin. DVTProphylaxis: SCDs Disposition:await test results, await road consultant recommendations, await clinical improvement and anticipate discharge 1-2 days I spent over 51% of total time providing counseling or incoordination of care: > 35 minutes discussed with nurse, patient and family updated, I personally examined the patient and I personallyreviewed chart, data, labs radiology reports. Reviewed plan w/ pt and discussed GI hx. 6AM-6PM please page: 6PM-6AM please page: [facility] – [place] Internal Medicine Sveta Leslie MD - 05/10/2020 6:41 AM EDT [facility] Progress Note Ever Mckeon : 1970(49 y.o.) Date: 05/10/20 Subjective: CC: Abd pain Feels like her abd pain is improving, but now pain is along RUQ rather than RLQ. Able to urinate again w/o issue. Blurry vision improving. Scheduled Meds: b acgbzhq-A-L-zinc 1 tablet Oral Daily vitamin C 250 [...] wellbutrin. DVTProphylaxis: SCDs Disposition:await test results, await road consultant recommendations, await clinical improvement and anticipate discharge 1-2 days I spent over 51% of total time providing counseling or incoordination of care: > 35 minutes discussed with nurse, discussed with TCC/SW, patient and family updated, I personally examined the patient and I personally reviewed chart, data, labs radiology reports. Touched base w/ urology. 6AM-6PM please page: 6PM-6AM please page: [facility] – [place] Internal Medicine ineda Soto MD - 05/09/2020 [...] mEq Oral Once Samer MD prateek Richards tpkqjjx-R-B-zinc (STRESS FORMULA W/ ZINC) 1 tablet 1 [...] CT Abdomen Pelvis W Contrast Patient Name: VEER MCKEON ---CT--- Exam Date/Time 05/07/2020 22:36:[address] Abdomen/Pelvis w/ IV Contrast (IV Onl Ordering Physician MD PETERS JAMES Accession Number [id number] CPT4 Codes 25617 (CT Abdomen/Pelvis w/ IV Contrast (IV Onl), Q9967 (CT ISOVUE 370MG/ML&[id number]&ML&1) Reason For Exam RUQ and RLQ pain [...] EDT Exam CR Chest Portable Ordering Physician [id number] DUGGAN Accession Number [id number] CPT4 Codes 54483 () Reason For Exam sob, cough and [...] Norris MD 7:52 AM 05/09/2020 - Page manager digital ad operations resident with questions. Discussed with the urology resident. I concur with the assessment and plan. Pineda Soto M.D. Sveta Leslie MD - 05/09/2020 6:29 AM EDT [facility] Progress Note Ever Mckeon : 1970(49 [...] the last week. Has never seen an molding supervisor, but has reading glasses she uses as needed. Noted that her vision became blurry, but doesn't think itsworsened since it started. Denies eye pain, itching, discharge (occasional tearing, but no more thanbaseline), and photophobia. Mentions at first she felt like her eyes were both 'burning', but that it hasn't happened since it started. Scheduled Meds: b mtqnvzx-K-S-zinc 1 tablet Oral Daily vitamin C 250 [...] wellbutrin. DVTProphylaxis: SCDs Disposition:await test results, await road consultant recommendations, await clinical improvement and anticipate discharge 2-3 days I spent over 51% of total time providing counseling or incoordination of care: > 35 minutes discussed with nurse, patient and family updated, I personally examined the patient and I personallyreviewed chart, data, labs radiology reports. Reviewed plan w/ patient. 6AM-6PM please page: 6PM-6AM please page: [facility] – [place] Internal Medicine Natalya Jorge MS, RD, LD [...] Intake: Unable to assess(Pt reports poor PO MANAGER OF BROADCAST CONTENT d/t n/v) Weight Loss: No significant weight loss Body Fat Loss: Unable to assess Muscle Mass Loss: Unable to assess Fluid Accumulation: No significant fluid accumulation Retail Account Specialist Strength: Not Performed Estimated Daily Nutrient Needs: Energy (kcal): 7008-2988; Weight Used for Energy Requirements: [place] Protein (g): 49-61; Weight Used for Protein Requirements: [place] Fluid (ml/day): per MD; Nutrition Related Findings: +I&O. Hypoactive BS. No edema. Daren 18. Glucose 136, Na+ 132 Wounds: None Current Nutrition Therapies: DIET GENERAL; Anthropometric Measures: Height: 5' 7 (170.2 cm) Current Body Weight: 250 lb (113.4 kg) Usual Body Weight: 259 lb (117.5 kg)(per [facility] 06/08) [place] Body Weight: 135 lbs; 185.2 lbs BMI: [...] Edema, Skin,Weight, Nutrition Focused Physical Findings Contact: [phone] documented in this encounterSTierra Hutchinson DTR - 05/22/2020 7:50 AM EDT Nutrition update completed. Chart reviewed. Refer patient to the Dietitian. Daniella Patten DO - 05/21/2020 11:41 AM EDT [facility] - Infectious Diseases Attending [...] Negative Lines: PIV Radiography/Echo/Other: CT abdomen and [id number] 05-19-2020 Antimicrobials, Start/End Dates: Zosyn 3.375 g [...] Will sign-off please call with questions Pager: [phone] Winston Jacobson DO - 05/21/2020 9:55 AM EDT [facility] Progress Note Ever Mckeon [...] with portal HTN -Previous work up from [facility] in 2002. Continue home ursodiol, after discussion [...] creatinine clearance >30 Disposition:await test results, await road consultant recommendations and await clinical improvement I spent over 51% of total time providing counseling or incoordination of care: > 35 minutes discussed with nurse, discussed with the patient and Sosa FLORES, I personally examined the patientand I personally reviewed chart, data, labs radiology reports 6AM-6PM please page: 6PM-6AM please page: [facility] – [place] Internal Medicine Sosa Noriega PA-C - 05/21/2020 [...] cells/uL 269 05/21/2020 12:19 AM - [facility] Results From Soft/Medlab Component Value Ref Range & Units Status Collected Lab Protein, body fluid 4.0 05/21/2020 3:00 AM - [facility], [facility] Incoming Lab Results From Soft/Medlab Component Value Ref Range & Units Status Collected Lab Neutrophils % 81 % Final 05/20/2020 12:15 PM [facility] Lymphocytes 10 % Final 05/20/2020 12:15 PM [facility] Monocytes 5 % Final 05/20/2020 12:15 PM [facility] Eosinophils 3 % Final 05/20/2020 12:15 PM [facility] Macrophage count 1 % Final 05/20/2020 12:15 PM [facility] Differential Count 100 NA Final 05/20/2020 12:15 PM [facility] Component Collected Lab Gram Stain Result 05/20/2020 12:15 PM [facility] Many polymorphonuclear cells/lpf. No organisms seen. Cytocentrifugation performed. Microscopic observation and enumeration of white blood cells should be confirmed by Cell Count with Differential. Radiology Review: RUQ Fluid aspiration 05/20/2020 12 ccs clear yellow fluid obtained. Bandaid applied to site. ASSESSMENT AND PLAN ?Biliary cirrhosis - follows outpatient at [facility], last note from 2002, thought ot be [...] physician or call our GI clinic at [phone] to make f/u appointment as soon as [...] PM EDTPatient arrived to ultrasound department from [facility] for a RUQ fluid aspiration . Dr. Lynchum in to discuss procedure with patient and informed consent obtained.. electronic device monitor on. 12 ccs clear yellow fluid obtained. Bandaid applied to site. Patient tolerated procedure well. Report called to Delmy CAMPBELL. and patient transferred to [facility]. Daniella Arndt DO - 05/20/2020 10:38 AM EDT [facility] - Infectious Diseases Attending [...] Negative Lines: PIV Radiography/Echo/Other: CT abdomen and [id number]-4-26-2020 05-19-2020 Antimicrobials, Start/End Dates: Zosyn 3.375 g IV q8h 05/15- Impression: 1. Fever and leukocytosis 2. New subcapsular hepatic collection 3. R hemorrhagic renal cyst 4. Known biliary cirrhosis 5. Positive HBcAb (+), HBsAb (-), HBsAg (-), HCV (-) 6. Previous EtOH abuse sober x 1 year Plan: 1. DC piperacillin-tazobactam 2. Care per primary and GI Pager: [phone] Luz Maria Arredondo MD - 05/20/2020 8:40 AM EDT [facility] Progress Note Ever Mckeon : 1970(49 [...] with portal HTN -Per a note from [facility] in 2002. Was on ursodiol, recently restarted [...] creatinine clearance >30 Disposition:await test results, await road consultant recommendations and await clinical improvement I [...] Luz Maria Garcia MD 6PM-6AM please page: [facility] – [place] Internal Medicine Luz Maria Arredondo MD - 05/19/2020 9:08 AM EDT [facility] Progress Note Ever Mckeon [...] cirrhosis Portal HTN -Per a note from [place] in 2002. Was on ursodiol, but hasn't taken it in years. Resumed it lastweekend; will continue until pt follows up w/ GI outpatient. Prolonged QTc - Monitor Depression, anxiety -Continuing celexa and wellbutrin. Prior meth/ETOH abuse - Sober x1 yr DVTProphylaxis: lovenox 40 q 24hr - creatinine clearance >30 Disposition:await test results, await road consultant recommendations and await clinical improvement I spent over 51% of total time providing counseling or incoordination of care: > 35 minutes discussed with nurse, discussed with TCC/SW, patient and family updated, I personally examined the patient and I personally reviewed chart, data, labs radiology reports. 6AM-6PM please page: Electronically signed by Luz Maria Garcia MD 6PM-6AM please page: [facility] – [place] Internal Medicine Luz Maria Arredondo MD - 05/18/2020 9:18 AM EDT [facility] Progress Note Ever Mckeon : 1970(49 [...] cirrhosis Portal HTN -Per a note from [facility] in 2002. Was on ursodiol, but hasn't taken it in years. Resumed it lastweekend; will continue until pt follows up w/ GI outpatient. Prolonged QTc - Monitor Depression, anxiety -Continuing celexa and wellbutrin. Prior meth/ETOH abuse - Sober x1 yr DVTProphylaxis: lovenox 40 q 24hr - creatinine clearance >30 Disposition:await test results, await road consultant recommendations and await clinical improvement I spent over 51% of total time providing counseling or incoordination of care: > 35 minutes discussed with nurse, discussed with TCC/SW, patient and family updated, I personally examined the patient and I personally reviewed chart, data, labs radiology reports. D/W RN 6AM-6PM please page: Electronically signed by Luz Maria Garcia MD 6PM-6AM please page: [facility] – [place] Internal Medicine ITMTim brown - 05/17/2020 11:32 AM EDT Nutrition rescreen completed. Chart reviewed. Patient to be monitored and followed by the diet permit technician. BRANDON Bunn angMarisa MD - 05/17/2020 10:00 AM EDT [facility] - Infectious Diseases Attending Progress [...] couple weeks. Patient was recently admitted to [facility] for similar abdominal pain and fever from [...] for patient. Time spent 25 minutes. Pager: [phone] Kamryn Avila MD - 05/17/2020 6:42 AM [...] 05/17/2020 6:43 AM For questions/concerns please page manager digital ad operations Urology resident Associated attestation - Corbin Solares MD - 05/17/2020 9:55 AM EDTI agree with residents assessment and plan. This patient was seen and examined by me personally. I performed a history and physical examination of the patient and discussed the management with the resident. Sveta Richards MD - 05/17/2020 6:39 AM EDT [facility] Progress Note Ever Mckeon : 1970(49 [...] abx. Biliary cirrhosis -Per a note from [place] in 2002. Was on ursodiol, but hasn't taken it in years. Resumed it lastweekend; will continue until pt follows up w/ GI outpatient. Depression, anxiety -Continuing celexa and wellbutrin. DVTProphylaxis: lovenox 40 q 24hr - creatinine clearance >30 Disposition:await test results, await road consultant recommendations, await clinical improvement and anticipate [...] urology. 6AM-6PM please page: 6PM-6AM please page: [facility] – [place] Internal Medicine Kayla Dumont RN - 05/16/2020 3:02 PM EDT[address] arrived to CT department from room 539A for a pararenal/hepatic fluid collection drain placement . Dr. Boswell in to discuss procedure with patient and informed consent obtained. Patient assisted to CT table electronic device monitor on.#8 fr. Pigtail drain to accordian placed right flankregion. Sutured in place.Specimen obtained. Stayfix and tegaderm applied to site.Patient tolerated procedure well. Report called to Niki Campbell on and patient transferred to room 539A. oAba staples, [facility] - 05/16/2020 10:31 AM EDTInfectious Diseases has been consulted and will manage Vancomycin at this time. Thank you for the consult. Pharmacy signing off for vancomycin dosing. Aba Kendrick [facility] Date: 05/16/20 Time: 10:31 AM documented in [...] Winston Flannery, - 05/22/2020 9:50 AM EDT [facility] Discharge Summary with Discharge DayProgress [...] Medication Changes: Ever Mckeon Home Medication Instructions THERESA:[id number] Printed on:05/22/20 7005 Medication Information b complex vitamins capsule Take [...] WITH IRON vitamin D (ERGOCALCIFEROL) 1.25 MG (18985 UT) CAPS capsule Take 1 capsule by mouth once a week DIET: regular ACTIVITY: resume regular activity SIGNIFICANT DIAGNOSTIC STUDIES: CT abd/pelvis COMPLEXITY OF FOLLOW UP: [] Moderate Complexity: follow up within 7-14 calendar days (53478) [x] Severe Complexity: follow up within 7 calendar days (71701) FOLLOW UP TESTING, PENDING RESULTS ORREFERRALS AT [...] DATE CREATED AUTHOR AUTHOR'S ORGANIZ ATION 10/14/2018 [facility] DATE CREATED AUTHOR AUTHOR'S ORGANIZATIO N 01/22/2019 [facility] [place] DATE CREATED AUTHOR AUTHOR'S ORGANIZATIO N 02/23/2019 [facility] DATE CREATED AUTHOR AUTHOR'S ORGANIZATIO N 05/17/2020 [facility] DATE CREATED AUTHOR AUTHOR'S ORGANIZATIO N 10/09/2021 [facility] DATE CREATED AUTHOR AUTHOR'S ORGANIZATIO N 08/19/2022 [facility] DATE CREATED AUTHOR AUTHOR'S ORGANIZATIO N 10/17/2022 [facility] DATE CREATED AUTHOR AUTHOR'S ORGANIZATIO N 11/[facility]/2022 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 [facility] the event this information is protected by [facility] Confidentiality of Alcohol and Drug Abuse Patient Records regulations: This information has been disclosed to you from records protected by Federal confid entiality rules ( The Federal rules restrict any use of th e information to criminally investigate or prosecute any alcohol or drug abuse trisha ent. [facility] FOR RECORDS PERTAINING TO PATIENTS WHO [...] BE BASED ON THE PRIMARY CLINICAL RECORDS. [facility]. provides no warranty or guarantee of the accuracy or completeness of information in this document.
[2023-01-02] MEDS: 0.9% Normal Saline 1,000 ML 100 ML IV (18:37)
[2023-01-02] MEDS: Lactulose 20 GM/30 ML PHA UDC PO ×2 (19:43→23:51)
[2023-01-02] MEDS: rifAXIMin 550 MG Tablet PO (19:59)
[2023-01-02] MEDS: Doxazosin 1 MG Tablet 2 MG PO (19:59)
[2023-01-02] MEDS: Ursodiol 250 MG Tablet PO (19:59)
[2023-01-02] MEDS: Propranolol 10 MG Tablet 20 MG PO (19:59)
--- NOTE | 2023-01-02 20:30 | RAD_ITS ---
STUDY: X-RAY - RIGHT KNEE REASON FOR EXAM: Female, 52 years old. Right knee pain after fall. TECHNIQUE: 2 view(s) of the knee. COMPARISON: None. FINDINGS: Normal visualized distal femur. Normal visualized proximal tibia and fibula. Normal proximal tibiofibular articulation. No fracture or dislocation. There is moderate degenerative arthrosis of the medial femorotibial compartment with moderate joint space narrowing. There is mild degenerative arthrosis of the lateral femorotibial compartment. There is mild degenerative arthrosis of the patellofemoral articulation. There is no demonstrated joint effusion. The soft tissue structures are unremarkable. RAD/Knee 1 or 2 Views IMPRESSION: Arthrosis of the right knee without acute fracture or dislocation. Electronically Signed: Jr Kathleen DO at 20:55 EST ,
[2023-01-02 21:34] LABS: Alcohol, Blood (Medical)-Serum < 3.0 mg/dL
[2023-01-02] MEDS: Lidocaine 5% Patch 2 PATCH TOPICAL (23:50)
[2023-01-02] MEDS: Menthol/Lanolin/Calamine/Znox 113 GM Tube 1 APPLIC TOPICAL (23:50)
[2023-01-02] MEDS: Nystatin Powder 15gm Bottle 1 APPLIC TOPICAL (23:51)
--- NOTE | 2023-01-03 00:48 | NURSING ---
pt called staff to room stated give me more blankets this rn placed 2 blankets on pt and pt became angry stated these are wet reassured pt these were new blankets and were dry and removed old blankets from her bed. pt stated you come back when you can be nice a..hole and I will get my own blankets bed exit on.
[2023-01-03 04:41] VITALS: BP 98/56; PULSE 65; RESP 16; TEMP 37.3; O2SAT 96
[2023-01-03 06:17] VITALS: BMI 43.2
[2023-01-03 06:41] LABS: Absolute Lymphocyte Count 0.94 X10^3/uL (0.83-4.51); Absolute Neutrophil Count 1.2 X10^3/uL (2.0-7.7); Basophil# 0.03 X10^3/uL; Eosinophil# 0.26 X10^3/uL; Eosinophils% 8.5 % (0-5); Hemoglobin 12.6 g/dL (12.0-15.0); Lymphocyte # 0.94 X10^3/ul (0.83-4.51); Lymphocyte % 30.8 % (19-41); Mean Corp Hgb Conc 32.3 g/dL (32-36); Mean Corpuscular Hgb 30.1 pg (27.0-32.0); Mean Corpuscular Volume 93.3 fL (81-99); Mean Platelet Vol. 11.2 fl (6.2-12.0); Monocyte# 0.59 X10^3/uL; Monocyte% 19.3 % (0-10); NRBC Flagged by Analyzer 0 % (0-5); Neutrophil # 1.22 X10^3/uL (2.7-7.7); Neutrophil % 40.1 % (47-70); POSITIVE COUNT YES; Platelet Count 69 K/mm3 (150-450); RBC Distribution Width CV 14.7 % (11.6-14.6); RBC Distribution Width SD 49.8 fl (35.1-43.9); Red Blood Count 4.18 M/mm3 (4.2-5.4); White Blood Count 3.1 K/mm3 (4.4-11.0)
[2023-01-03 07:03] LABS: ALB/GLOB Ratio 0.9 RATIO (0.9-2.4); AST(SGOT) 39 U/L (15-37); Alanine Aminotransfer ALT/SGPT 29 U/L (13-56); Albumin, Serum 2.5 g/dL (3.2-5.0); Alkaline Phosphatase 133 U/L (45-117); Anion Gap 6 (5-15); BUN 10 mg/dL (7-18); BUN/Creat Ratio 15.8 RATIO (10-20); Calcium,Total 8.5 mg/dL (8.5-10.1); Chloride 109 mmol/L (98-107); Creatinine, Serum 0.63 mg/dL (0.55-1.02); EST Glomerular Filtration Rate 104 mL/min (>60); Est Glom Filt Rate - Afr Amer 126 mL/min (>60); Estimated Creatinine Clearance 95.57 ml/min; Globulin 2.9 g/dL (2.2-4.2); Glucose 125 mg/dL (74-106); Potassium 3.9 mmol/L (3.5-5.1); Protein, Total 5.4 g/dL (6.4-8.2); Sodium Level 141 mmol/L (136-145)
[2023-01-03 07:09] VITALS: O2SAT 95
--- NOTE | 2023-01-03 07:28 | PCM.PN.HOSP ---
Reason for Visit Reason for Visit: Diagnoses Hepatic encephalopathy (01/02/23) Subjective Subjective Follow-up for acute encephalopathy. Objective Data Objective Data Vital Signs: Vital Signs Temp Pulse Resp BP Pulse Ox O2 Del Method 99.1 F 65 16 98/56 L 95 Room Air 01/03/23 04:41 01/03/23 04:41 01/03/23 04:41 01/03/23 04:41 01/03/23 07:09 01/03/23 07:09 Oxygen Delivery Method Room Air Weight: 275 lb 9.245 oz Body Mass Index (BMI) 43.2 Intake & Output: Intake and Output for Last 24 Hours 01/01/23 01/02/23 01/04/23 23:59 23:59 00:59 Intake Total 1005 / 1005 Balance 1005 / 1005 Lab / Micro Data Result Diagrams: 01/03/23 06:12 01/03/23 06:12 Labs: Laboratory Results - last 24 hr 01/02/23 15:31: POC Glucose 71 L 01/02/23 15:38: WBC 3.5 L, RBC 4.31, Hgb 13.2, Hct 39.7, MCV 92.1, MCH 30.6, MCHC 33.2, RDW Std Deviation 49.6 H, RDW Coeff of Stephon 14.8 H, Plt Count 76 L, MPV 10.4, Immature Gran % (Auto) 0.300, Neut % (Auto) 52.2, Lymph % (Auto) 21.6, Dixie % (Auto) 15.9 H, Eos % (Auto) 9.1 H, Baso % (Auto) 0.9, Absolute Neuts (auto) 1.8 L, Absolute Lymphs (auto) 0.76 L, Nucleated RBC % 0 01/02/23 15:38: Sodium 141, Potassium 4.1, Chloride 109 H, Carbon Dioxide 27.0, Anion Gap 5, BUN 13, Creatinine 0.62, Estim Creat Clear Calc 100.87, Est GFR (MDRD) Af Amer 129, Est GFR (MDRD) Non-Af 107, BUN/Creatinine Ratio 21.0 H, Glucose 79, Calcium 9.1, Total Bilirubin 0.80, AST 37, ALT 32, Alkaline Phosphatase 171 H, Total Protein 6.3 L, Albumin 2.8 L, Globulin 3.5, Albumin/Globulin Ratio 0.8 L, Lipase 227 01/02/23 15:38: Ammonia 119.0 H 01/02/23 16:11: Urine Color Elena, Urine Clarity Clear, Urine pH 6.0, Ur Specific [place] 1.020, Urine Protein Negative, Urine Glucose (UA) Normal, Urine Ketones 5 H, Urine Occult Blood Negative, Urine Nitrite Negative, Urine Bilirubin Negative, Urine Urobilinogen 4 H, Ur Leukocyte Esterase 25 H, Urine RBC 0 SEEN, Urine WBC 0 SEEN, Ur Squamous Epith Cells 0-5 SEEN, Urine Bacteria 0 SEEN, Urine Mucus 0 SEEN 01/02/23 16:11: Ur Drug Screen Comment 01/02/23 20:05: Ethyl Alcohol < 3.0 01/03/23 06:12: WBC 3.1 L, RBC 4.18 L, Hgb 12.6, Hct 39.0, MCV 93.3, MCH 30.1, MCHC 32.3, RDW Std Deviation 49.8 H, RDW Coeff of Stephon 14.7 H, Plt Count 69 L, MPV 11.2, Immature Gran % (Auto) 0.300, Neut % (Auto) 40.1 L, Lymph % (Auto) 30.8, Dixie % (Auto) 19.3 H, Eos % (Auto) 8.5 H, Baso % (Auto) 1.0, Absolute Neuts (auto) 1.2 L, Absolute Lymphs (auto) 0.94, Nucleated RBC % 0 01/03/23 06:12: Sodium 141, Potassium 3.9, Chloride 109 H, Carbon Dioxide 26.0, Anion Gap 6, BUN 10, Creatinine 0.63, Estim Creat Clear Calc 95.57, Est GFR (MDRD) Af Amer 126, Est GFR (MDRD) Non-Af 104, BUN/Creatinine Ratio 15.8, Glucose 125 H, Calcium 8.5, Total Bilirubin 0.80, AST 39 H, ALT 29, Alkaline Phosphatase 133 H, Total Protein 5.4 L, Albumin 2.5 L, Globulin 2.9, Albumin/Globulin Ratio 0.9 Radiography Diagnostic Testing: Radiology Impression Knee X-Ray 01/02/23 20:30 IMPRESSION: Arthrosis of the right knee without acute fracture or dislocation. Electronically Signed: Jr Kathleen DO at 20:55 EST Reading Location ID and State: [address] [place] [address] Tel [phone], Service support , Physical Exam Narrative Patient has history of decompensated alcoholic cirrhosis and possible PBC. Patient follows Dr. Ramos. He ordered a lot of outpatient tests for PBC as per the patient. Patient is more awake but states her confusion and disorientation fluctuates. Physical exam General: Alert, Oriented x3, Cooperative but fluctuating level of consciousness. HEENT: Atraumatic, PERRLA, EOMI, Normocephalic Oral: Oral mucosa moist. No Gingival or Mucosal Lesions/ Ulcerations Neck: Supple, No JVD, Negative Carotid Bruits Lungs: Air entry diminished in bilateral lung bases. No crepitation/rhonchi Cardiovascular: Regular rate, Regular Rhythm, Normal S1, Normal S2, No murmurs Abdomen: Bowel Sounds Present, Soft, Non Tender, Non-Distended, no clinically palpable fluid thrill or ascites : No renal angle tenderness. No suprapubic tenderness. Extremities: No edema, Capillary Refill Less than 3 Seconds Skin: No rashes, No breakdown Musculoskeletal: Mild tenderness in right knee. ROM restricted overnight knee, chronic arthritis. Status post left TKR. Neurological: Cranial nerves II-XII grossly intact, DTR 2+/4, muscle strength could not be checked in the left knee due to pain. Left knee and hip 4+/5. Psych/Mental Status: Flat affect. Assessment & Plan Assessment/Plan (1) Acute hepatic encephalopathy: PLAN: Plan 52-year-old woman with history of alcoholic cirrhosis and hepatic encephalopathy was admitted with confusion, disoriented to time and place, unable to answer simple questions. 1. Acute hepatic encephalopathy with hx alcoholic cirrhosis: Patient is being admitted to the floor. Her mental status is improved since admission but he still has fluctuating level of consciousness and sometimes inattention. On lactulose and Xifaxan. Ammonia 119. Continue IV fluid for mild dehydration and hold Lasix and spironolactone. Continue Colleen. As per ED physician note, his brother Vaibhav Esposito made comment to outside facility ED physician that he cannot take care of her further. 2. Decompensated alcoholic cirrhosis with portal hypertension, varices and gastropathy:-Recently established with gastroenterology 12/10/2022. She is to have outpatient endoscopy to eval for varices and gastropathy. As an outpatient see had HIV hep B surface antibody ferritin and complete work-up for causes of cirrhosis including AFP. -Based on documentation has been sober from alcohol for 1 year, he is alcohol less than 3. Urine tox screen shows positive ecstasy. -Case management and social work consult to assist with DC dispo given brothers report that he cannot care for her any further -If not improving can consider inpatient GI consult #Thrombocytopenia -Secondary to her cirrhosis -Appears to be at baseline #History of depression, anxiety, PTSD -Continue Wellbutrin, citalopram, prazosin -Patient tired and altered so plan to hold Seroquel until mental status improves the low threshold to resume #Morbid obesity -BMI 45.8 -Complicates treatment, prognosis, outcomes -Recommend weight loss and lifestyle changes #DVT ppx: SCDs given thrombocytopenia Charges/Coding Visit Charges Inpatient E&M: 20849 Subs Hosp L2
[2023-01-03 07:46] LABS: Amphetamine Urine VISTA NEGATIVE (<1000 ng/mL); Barbiturate Urine VISTA NEGATIVE (< 200 ng/mL); Benzodiazepine Urine VISTA NEGATIVE (< 200 ng/mL); Cocaine Urine VISTA NEGATIVE (< 300 ng/mL); Ecstacy Urine VISTA POSITIVE (< 500 ng/mL); Methadone Urine VISTA NEGATIVE (< 300 ng/mL); PCP Urine VISTA NEGATIVE (< 25 ng/mL); THC Urine VISTA NEGATIVE (< 50 ng/mL); Vista UDS pH Range 6
[2023-01-03] MEDS: Nystatin Powder 15gm Bottle 1 APPLIC TOPICAL ×2 (08:48→21:06)
[2023-01-03] MEDS: Lactulose 20 GM/30 ML PHA UDC PO ×4 (08:48→21:06)
[2023-01-03] MEDS: Ursodiol 250 MG Tablet PO ×2 (08:49→21:07)
[2023-01-03] MEDS: Citalopram 40 MG TABLET PO (08:49)
[2023-01-03] MEDS: rifAXIMin 550 MG Tablet PO ×2 (08:49→21:07)
[2023-01-03] MEDS: Lidocaine 5% Patch 2 PATCH TOPICAL (08:49)
[2023-01-03] MEDS: buPROPion (XL) 300 MG TABLET.XL PO (08:51)
[2023-01-03 09:30] VITALS: BP 104/74; PULSE 68; RESP 18; TEMP 36.8; O2SAT 98
[2023-01-03] MEDS: 0.9% Saline Lock 10 ML Syringe IV (10:03)
[2023-01-03] MEDS: Morphine 2 MG/ML Syringe IV (10:03)
[2023-01-03] MEDS: Menthol/Lanolin/Calamine/Znox 113 GM Tube 1 APPLIC TOPICAL ×2 (10:04→21:05)
[2023-01-03 11:02] LABS: GGTP 77 U/L (5-55)
[2023-01-03 14:33] VITALS: BP 107/62; PULSE 59; RESP 18; TEMP 37; O2SAT 97
[2023-01-03 15:00] VITALS: RESP 18
[2023-01-03] MEDS: oxyCODONE 5 MG Tablet PO (16:48)
[2023-01-03] MEDS: Propranolol 10 MG Tablet 20 MG PO (21:18)
[2023-01-03] MEDS: Doxazosin 1 MG Tablet 2 MG PO (21:18)
[2023-01-03 21:31] VITALS: BP 120/68; PULSE 62; RESP 16; TEMP 36.3; O2SAT 98
[2023-01-04 04:14] VITALS: BP 108/48; PULSE 63; RESP 16; TEMP 36.7; O2SAT 98
[2023-01-04] MEDS: Propranolol 10 MG Tablet 20 MG PO ×3 (04:19→22:53)
[2023-01-04] MEDS: oxyCODONE 5 MG Tablet PO ×3 (04:25→21:53)
[2023-01-04 05:12] VITALS: BMI 43.0
[2023-01-04 08:01] VITALS: BP 89/72; PULSE 59; RESP 16; TEMP 36.8; O2SAT 98
--- NOTE | 2023-01-04 09:20 | PCM.PN.HOSP ---
Subjective Subjective Confused, does not know why she is here Objective Data Objective Data Vital Signs: Vital Signs Temp Pulse Resp BP Pulse Ox O2 Del Method 98.3 F 59 L 16 89/72 L 98 Room Air 01/04/23 08:01 01/04/23 08:01 01/04/23 08:01 01/04/23 08:01 01/04/23 08:01 01/04/23 08:01 Oxygen Delivery Method Room Air Weight: 273 lb 13.026 oz Body Mass Index (BMI) 43.0 Intake & Output: Intake and Output for Last 24 Hours 01/03/23 01/04/23 01/05/23 03:59 03:59 03:59 Intake Total 1949 Balance 1949 Lab / Micro Data Result Diagrams: 01/03/23 06:12 01/03/23 06:12 Labs: Laboratory Results - last 24 hr 01/03/23 06:12: GGT 77 H Physical Exam Narrative General: Alert, disoriented, Cooperative, No apparent distress HEENT: Atraumatic, PERRLA, EOMI, Normocephalic Oral: Moist Mucosa Neck: Supple, No JVD Lungs: Diminished, Normal air movement, No rhonchi, No wheeze, No rales Cardiovascular: Regular rate, Regular Rhythm, Normal S1, Normal S2, No murmurs Abdomen: Soft, Non Tender, Non-Distended, No Hepato-splenomegaly Extremities: No edema, Capillary Refill Less than 3 Seconds Skin: No rashes, No breakdown Musculoskeletal: Right knee tenderness but does not limit her mobility Neurological: Moves all extremities, sensations intact Psych/Mental Status: Flat Assessment & Plan Assessment/Plan (1) Acute hepatic encephalopathy: PLAN: Plan 1. Acute hepatic encephalopathy with hx alcoholic cirrhosis: Patient is being admitted to the floor. Her mental status is improved since admission but he still has fluctuating level of consciousness and sometimes inattention. On lactulose and Xifaxan. Ammonia 119. Continue IV fluid for mild dehydration and hold Lasix and spironolactone. Continue Colleen. As per ED physician note, his brother Vaibhav Esposito made comment to outside facility ED physician that he cannot take care of her further. 2. Decompensated alcoholic cirrhosis with portal hypertension, varices and gastropathy:-Recently established with gastroenterology 12/10/2022. She is to have outpatient endoscopy to eval for varices and gastropathy. As an outpatient see had HIV hep B surface antibody ferritin and complete work-up for causes of cirrhosis including AFP. -Based on documentation has been sober from alcohol for 1 year, he is alcohol less than 3. Urine tox screen shows positive ecstasy. ? Case management and social work consult to assist with DC dispo given brothers report that he cannot care for her any further, will consult [facility] as she is able to ambulate throughout the entire unit to see if we can place her into an inpatient psych unit given the fact that she is continuing to be confused and encephalopathic #Thrombocytopenia -Secondary to her cirrhosis -Appears to be at baseline #History of depression, anxiety, PTSD -Continue Wellbutrin, citalopram, prazosin -Patient tired and altered so plan to hold Seroquel until mental status improves the low threshold to resume #Morbid obesity -BMI 45.8 -Complicates treatment, prognosis, outcomes -Recommend weight loss and lifestyle changes DVT: SCDs Charges/Coding Visit Charges Inpatient E&M: 55619 Subs Hosp L2
--- NOTE | 2023-01-04 09:30 | CASEMGMT ---
Pt nurse made CM aware that pt is in need of gerispsych eval. Noted in hospitalist progress note the same. Updated SW. TC to [facility], which was set up for pt on last admission. Spoke with Arin who states pt just dc'd from [facility] on Wednesday. She reports insurance denied pt SNF stay and they are actively seeing pt 2x/wk for med mgmt.
--- NOTE | 2023-01-04 09:53 | CASEMGMT ---
Social Work SW received update from RN that pt nurse informed MD wants pt evaluated by crisis for possible mike psych placement d/t altered mental state. SW [facility]. ADALBERTO Hernandez
--- NOTE | 2023-01-04 10:41 | NURSING ---
Pt is on phone, wanting this nurse to assist in her application with social security disability. Pt is notified that this is not something that the nurse can do. She is unable to comprehend this. weigh and charge worker consulted and further phone call to pt brother and he states that pt has a counselor at the Center in [place].
[2023-01-04] MEDS: Nystatin Powder 15gm Bottle 1 APPLIC TOPICAL ×2 (10:58→22:49)
[2023-01-04] MEDS: Ursodiol 250 MG Tablet PO ×2 (10:58→22:53)
[2023-01-04] MEDS: buPROPion (XL) 300 MG TABLET.XL PO (10:58)
[2023-01-04] MEDS: Lidocaine 5% Patch 2 PATCH TOPICAL (10:58)
[2023-01-04] MEDS: rifAXIMin 550 MG Tablet PO ×2 (10:59→22:53)
[2023-01-04] MEDS: Citalopram 40 MG TABLET PO (11:00)
[2023-01-04] MEDS: Lactulose 20 GM/30 ML PHA UDC PO (11:00)
[2023-01-04] MEDS: Menthol/Lanolin/Calamine/Znox 113 GM Tube 1 APPLIC TOPICAL ×2 (11:01→22:49)
[2023-01-04 14:33] VITALS: BP 112/70; PULSE 65; RESP 18; TEMP 36.9; O2SAT 97
[2023-01-04] MEDS: Lactulose 20 GM/30 ML UDC PO ×3 (15:27→22:49)
[2023-01-04 15:30] VITALS: BP 147/66; PULSE 66; RESP 18; TEMP 36.6; O2SAT 96
--- NOTE | 2023-01-04 17:34 | EX.PCM.CON.G ---
HPI Consult Data Date of Consult: 01/04/23 HPI Narrative Reason for Consultation: Cirrhosis HPI Narrative: EVER VERDUZCO, is a 52 F who presents with altered mental status. She has a past medical history of recurrent hepatic encephalopathy, cirrhosis, PTSD who presented to [facility] 01/02/2023 with worsening mental status and disorientation.? She reportedly was admitted to [facility] 12/23 and just discharged yesterday but had increasing confusion and was brought to the ED.? Her brother Vaibhav has been her fish icer but per documentation he has had increasing difficulty caring for her and there was a comment made to an ED physician outlying facility regarding this difficulty caring for her.? In the ED she had elevated ammonia of 119, ALP 171, AST ALT within normal limits as was bilirubin, lipase 227, UA negative, platelets of 76 and white blood cell count 3.5.? Blood pressure 135/62 with a heart rate of 61, 97% on room air.? Hospitalist consulted for admission for hepatic encephalopathy. She has been hospitalized multiple times for HE since 06/2022, most recently in 09/2022, reports she gets crazy from HE. She takes xifaxan BID and lactulose TID--if she misses lactulose then HE flares. She was treated by GI in the hospital but this is her first outpatient GI visit. Elastography indicated a mild to moderate risk of clinically significant fibrosis, cirrhotic morphology of liver. No prior CT. No liver biopsy. She reports she was told her liver enzymes were elevated for many years, then when she was sober for 12 yrs her numbers were good. Sober again for one yr now. Diagnosed in 06/2022 with cirrhosis when hospitalized. No generalized pruritus. No jaundice. No ascites. Edema better since starting furosemide and spironolactone.? Was started on propranolol for essential tremor during one hospitalization. Always tired. Chronic nausea--takes ondansetron prn, nausea worse with lactulose. Intermittent pain in RUQ. No heartburn, acid reflux, dysphagia. Intermittent diarrhea from lactulose. No melena or hematochezia. Hx hepatitis B age 15, told she was immune She has iron deficiency anemia, takes ferrous sulfate, she was evaluated by hematology ? Colonoscopy approx 5 yrs ago. Has had EGDs, none recently. [facility] Medical History Acidosis Alcohol abuse Alcohol use Alcoholic cirrhosis of liver without ascites Anxiety and depression Bipolar disorder Cirrhosis Easy bruising Edema Essential (primary) hypertension Former smoker Gastric reflux Hepatic encephalopathy Hepatitis History of edema History of IBS History of pain when walking Hx of scarlet fever Immunity status testing Iron deficiency anemia Lactic acidosis Low urine output Pancytopenia Portal hypertension Post-menopausal Restless legs Shortness of breath on exertion Splenomegaly Thrombocytopenia Urea cycle metabolism disorder UTI (urinary tract infection) Wears dentures Wears glasses Home Medications citalopram 40 mg tablet 40 mg PO DAILY depression 10/28/22 [History Last Taken Unknown] furosemide 20 mg tablet 20 mg PO TID diuretic 10/28/22 [History Last Taken Unknown] prazosin 2 mg capsule 3 mg PO QHS sleep 10/28/22 [History Last Taken Unknown] propranolol 10 mg tablet 20 mg PO TID tremors 10/28/22 [History Last Taken Unknown] quetiapine 50 mg tablet (Seroquel) 100 mg PO QHS sleep 10/28/22 [History Last Taken Unknown] rifaximin 550 mg tablet (Xifaxan) 550 mg PO BID cirrhosis 10/28/22 [History Last Taken Unknown] bupropion HCl 300 mg 24 hr tablet, extended release 300 mg PO DAILY depression 11/18/22 [History Last Taken Unknown] ferrous sulfate 325 mg (65 mg iron) tablet 325 mg PO QODAY supplement #30 tabs 11/20/22 [Rx Last Taken Unknown] lactulose 10 gram/15 mL oral solution 30 ml PO TID cirrhosis #473 mL 11/20/22 [Rx Last Taken Unknown] spironolactone 25 mg tablet 50 mg PO DAILY 30 days #60 tabs 11/20/22 [Rx Last Taken Unknown] diazepam 10 mg tablet (Valium) 10 mg PO .COMPLEX #1 TAB 12/15/22 [Rx Last Taken Unknown] ursodiol 300 mg capsule 300 mg PO BID #180 caps 12/15/22 [Rx Last Taken Unknown] buspirone 10 mg tablet 10 - 20 mg PO TID PRN PRN Anxiety 12/17/22 [History Last Taken Unknown] ondansetron 4 mg disintegrating tablet 4 mg PO PRN PRN Nausea 12/17/22 [History Last Taken Unknown] Allergy/AdvReac Type Severity Reaction Status Date / Time No Known Allergies Allergy Verified 01/02/23 15:42 Family History Grandmother Breast cancer Surgical History History of ankle surgery Hx of section Hx of cholecystectomy Hx of hand surgery Hx of shoulder surgery Hx of total knee replacement Social History Smoking Status: Former smoker Electronic Cigarette Use: with nicotine how long ago did patient quit smoking: Transitioned from cig tob to vaping, heavy currently. alcohol intake: former year quit: 2021 details: 11/26/21 substance use type: other details: Former amphetamine/meth use, clean since 11/26/21. ROS ROS Narrative Unable to obtain full ROS secondary to mental status, reported occasionally having some abdominal discomfort but cannot describe this any further, denies chest pain or shortness of breath, unable to provide other ROS Physical Exam Narrative General: Alert, oriented, Cooperative, No apparent distress HEENT: Atraumatic, PERRLA, EOMI, Normocephalic Oral: Moist Mucosa Neck: Supple, No JVD Lungs: Diminished, Normal air movement, No rhonchi, No wheeze, No rales Cardiovascular: Regular rate, Regular Rhythm, Normal S1, Normal S2, No murmurs Abdomen: Soft, Non Tender, Non-Distended, No Hepato-splenomegaly Extremities: No edema, Capillary Refill Less than 3 Seconds Skin: No rashes, No breakdown Musculoskeletal: Right knee tenderness but does not limit her mobility Neurological: Moves all extremities, sensations intact Psych/Mental Status: Normal affect Lab / Micro Data Result Diagrams: 01/05/23 06:00 01/05/23 06:00 Labs: Laboratory Results - last 24 hr 01/05/23 06:00: WBC 4.5, RBC 4.34, Hgb 13.1, Hct 40.3, MCV 92.9, MCH 30.2, MCHC 32.5, RDW Std Deviation 50.4 H, RDW Coeff of Stephon 14.7 H, Plt Count 92 L, MPV 10.5, Immature Gran % (Auto) 0.200, Neut % (Auto) 41.2 L, Lymph % (Auto) 34.1, [place] % (Auto) 12.9 H, Eos % (Auto) 10.7 H, Baso % (Auto) 0.9, Absolute Neuts (auto) 1.9 L, Absolute Lymphs (auto) 1.53, Nucleated RBC % 0 01/05/23 06:00: Sodium 140, Potassium 3.9, Chloride 108 H, Carbon Dioxide 28.0, Anion Gap 4 L, BUN 9, Creatinine 0.68, Estim Creat Clear Calc 88.54, Est GFR (MDRD) Af Amer 116, Est GFR (MDRD) Non-Af 96, BUN/Creatinine Ratio 13.3, Glucose 132 H, Calcium 9.0, Magnesium 1.8, Total Bilirubin 0.90, AST 38 H, ALT 28, Alkaline Phosphatase 139 H, Total Protein 5.9 L, Albumin 2.7 L, Globulin 3.2, Albumin/Globulin Ratio 0.8 L 01/05/23 06:00: PT 15.0 H, INR 1.2, APTT 33.2 01/05/23 06:00: Phosphorus 3.5 01/05/23 16:23: Ammonia 133.0 H Micro: Microbiology 01/05/23 11:15 Nasal Secretion SARS-CoV-2 Antigen (Rapid) - Final Radiology Impression Chest X-Ray 01/05/23 13:45 IMPRESSION: No acute pulmonary process Electronically Signed: Enrique Garcia MD at 14:03 EDT , Assessment & Plan Assessment/Plan (1) Hepatic encephalopathy: PLAN: Plan The patient is a 52 y/o F with history of alcoholic cirrhosis was admitted for confusion, altered mental status consistent with hepatic encephalopathy. 1. Acute hepatic encephalopathy due to decompensated alcoholic cirrhosis with portal hypertension, thrombocytopenia and ascites: Patient was not taking lactulose on admission. Patient is still mildly confused. Continue lactulose, rifaximin, Lasix and add spironolactone. Strict intake and output, fluid restriction less than 1500 mL, daily weight monitoring, kidney and electrolytes monitoring. Denies recent history of hematemesis or melena. Patient is states he is sober for about 1 year. She needs to be further follow-up with tertiary care for liver transplant evaluation and listing. Plan is for EGD while she is inpatient in the hospital. #2. Anxiety and depression: Discontinue citalopram and BuSpar as well as Seroquel as needed regimen as patient is confused and resume once she is more alert. #3. Chronic anemia, iron deficiency anemia: Admission hemoglobin 13, and mild ascites hemoglobin is on baseline. #4. Hypertension: Continue home regimen including Lasix, prazosin, propranolol with hold parameters as needed, PRN hydralazine. #5. Hyperlipidemia: Not on statin therapy, defer given underlying history. #6. Tobacco Abuse: Prior cigarette tobacco use with transition to vaping encouraged vaping tobacco cessation, inpatient consultation per RT, NR if desired. #7. Former alcohol abuse with associated chronic alcoholic liver cirrhosis as noted #1: Encourage continued sobriety, case management consulted. #8. Former polysubstance abuse: Notes history of previous amphetamine/methamphetamine, encourage continued clean status, reports clean since 11/26/2021. Charges/Coding Visit Charges Inpatient E&M: 29836 Init Hosp L3
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
[2023-01-04 21:12] VITALS: BP 120/77; PULSE 61; RESP 18; TEMP 36.8; O2SAT 96
[2023-01-04 22:47] VITALS: BP 135/69; PULSE 63
[2023-01-04] MEDS: 0.9% Saline Lock 10 ML Syringe IV (22:48)
[2023-01-04] MEDS: Doxazosin 1 MG Tablet 2 MG PO (22:53)
[2023-01-05 04:27] VITALS: BP 120/70; PULSE 62; RESP 18; TEMP 36.2; O2SAT 97
[2023-01-05] MEDS: oxyCODONE 5 MG Tablet PO ×3 (04:29→22:06)
[2023-01-05 05:20] VITALS: BP 112/56; PULSE 64
[2023-01-05] MEDS: Propranolol 10 MG Tablet 20 MG PO ×3 (05:21→21:57)
[2023-01-05 06:00] VITALS: BMI 43.3
[2023-01-05 06:14] LABS: Absolute Lymphocyte Count 1.53 X10^3/uL (0.83-4.51); Absolute Neutrophil Count 1.9 X10^3/uL (2.0-7.7); Basophil# 0.04 X10^3/uL; Basophil% 0.9 % (0-1); Eosinophil# 0.48 X10^3/uL; Eosinophils% 10.7 % (0-5); Hematocrit 40.3 % (37-47); Hemoglobin 13.1 g/dL (12.0-15.0); Lymphocyte # 1.53 X10^3/ul (0.83-4.51); Lymphocyte % 34.1 % (19-41); Mean Corp Hgb Conc 32.5 g/dL (32-36); Mean Corpuscular Hgb 30.2 pg (27.0-32.0); Mean Corpuscular Volume 92.9 fL (81-99); Mean Platelet Vol. 10.5 fl (6.2-12.0); Monocyte# 0.58 X10^3/uL; Monocyte% 12.9 % (0-10); NRBC Flagged by Analyzer 0 % (0-5); Neutrophil # 1.85 X10^3/uL (2.7-7.7); Neutrophil % 41.2 % (47-70); POSITIVE COUNT YES; Platelet Count 92 K/mm3 (150-450); RBC Distribution Width CV 14.7 % (11.6-14.6); RBC Distribution Width SD 50.4 fl (35.1-43.9); Red Blood Count 4.34 M/mm3 (4.2-5.4); White Blood Count 4.5 K/mm3 (4.4-11.0)
[2023-01-05 06:21] LABS: International Normalized Ratio 1.2
[2023-01-05 06:22] LABS: Partial Thromboplast Time 33.2 Seconds (24.1-36.2)
[2023-01-05 06:40] LABS: ALB/GLOB Ratio 0.8 RATIO (0.9-2.4); AST(SGOT) 38 U/L (15-37); Alanine Aminotransfer ALT/SGPT 28 U/L (13-56); Albumin, Serum 2.7 g/dL (3.2-5.0); Alkaline Phosphatase 139 U/L (45-117); Anion Gap 4 (5-15); BUN 9 mg/dL (7-18); BUN/Creat Ratio 13.3 RATIO (10-20); Chloride 108 mmol/L (98-107); Creatinine, Serum 0.68 mg/dL (0.55-1.02); EST Glomerular Filtration Rate 96 mL/min (>60); Est Glom Filt Rate - Afr Amer 116 mL/min (>60); Estimated Creatinine Clearance 88.54 ml/min; Globulin 3.2 g/dL (2.2-4.2); Glucose 132 mg/dL (74-106); Magnesium 1.8 mg/dL (1.6-2.6); Potassium 3.9 mmol/L (3.5-5.1); Protein, Total 5.9 g/dL (6.4-8.2); Sodium Level 140 mmol/L (136-145)
[2023-01-05 06:43] LABS: Phosphorus 3.5 mg/dL (2.5-4.9)
[2023-01-05 07:41] VITALS: BP 111/61; PULSE 57; RESP 16; TEMP 37; O2SAT 95
[2023-01-05] MEDS: Menthol/Lanolin/Calamine/Znox 113 GM Tube 1 APPLIC TOPICAL ×2 (08:23→21:52)
[2023-01-05] MEDS: Nystatin Powder 15gm Bottle 1 APPLIC TOPICAL ×2 (08:26→22:00)
[2023-01-05] MEDS: Ursodiol 250 MG Tablet PO ×2 (08:31→21:57)
[2023-01-05] MEDS: rifAXIMin 550 MG Tablet PO ×2 (08:31→21:57)
[2023-01-05] MEDS: Citalopram 40 MG TABLET PO (08:31)
[2023-01-05] MEDS: Lactulose 20 GM/30 ML UDC PO ×4 (08:31→21:57)
[2023-01-05] MEDS: buPROPion (XL) 300 MG TABLET.XL PO (08:31)
[2023-01-05] MEDS: Lidocaine 5% Patch 2 PATCH TOPICAL (08:33)
--- NOTE | 2023-01-05 09:26 | PCM.PN.HOSP ---
Subjective Subjective Doing well, no issues overnight. She does admit to having hallucinations Objective Data Objective Data Vital Signs: Vital Signs Temp Pulse Resp BP Pulse Ox O2 Del Method 98.6 F 57 L 16 111/61 95 Room Air 01/05/23 07:41 01/05/23 07:41 01/05/23 07:41 01/05/23 07:41 01/05/23 07:41 01/05/23 07:41 Oxygen Delivery Method Room Air Weight: 276 lb 3.827 oz Body Mass Index (BMI) 43.3 Intake & Output: Intake and Output for Last 24 Hours 01/04/23 01/05/23 01/06/23 03:59 03:59 03:59 Intake Total 1949 3200 / 3200 500 / 500 Balance 1949 3200 / 3200 500 / 500 Lab / Micro Data Result Diagrams: 01/05/23 06:00 01/05/23 06:00 Labs: Laboratory Results - last 24 hr 01/05/23 06:00: WBC 4.5, RBC 4.34, Hgb 13.1, Hct 40.3, MCV 92.9, MCH 30.2, MCHC 32.5, RDW Std Deviation 50.4 H, RDW Coeff of Stephon 14.7 H, Plt Count 92 L, MPV 10.5, Immature Gran % (Auto) 0.200, Neut % (Auto) 41.2 L, Lymph % (Auto) 34.1, [place] % (Auto) 12.9 H, Eos % (Auto) 10.7 H, Baso % (Auto) 0.9, Absolute Neuts (auto) 1.9 L, Absolute Lymphs (auto) 1.53, Nucleated RBC % 0 01/05/23 06:00: Sodium 140, Potassium 3.9, Chloride 108 H, Carbon Dioxide 28.0, Anion Gap 4 L, BUN 9, Creatinine 0.68, Estim Creat Clear Calc 88.54, Est GFR (MDRD) Af Amer 116, Est GFR (MDRD) Non-Af 96, BUN/Creatinine Ratio 13.3, Glucose 132 H, Calcium 9.0, Magnesium 1.8, Total Bilirubin 0.90, AST 38 H, ALT 28, Alkaline Phosphatase 139 H, Total Protein 5.9 L, Albumin 2.7 L, Globulin 3.2, Albumin/Globulin Ratio 0.8 L 01/05/23 06:00: PT 15.0 H, INR 1.2, APTT 33.2 01/05/23 06:00: Phosphorus 3.5 Physical Exam Narrative General: Alert, oriented, Cooperative, No apparent distress HEENT: Atraumatic, PERRLA, EOMI, Normocephalic Oral: Moist Mucosa Neck: Supple, No JVD Lungs: Diminished, Normal air movement, No rhonchi, No wheeze, No rales Cardiovascular: Regular rate, Regular Rhythm, Normal S1, Normal S2, No murmurs Abdomen: Soft, Non Tender, Non-Distended, No Hepato-splenomegaly Extremities: No edema, Capillary Refill Less than 3 Seconds Skin: No rashes, No breakdown Musculoskeletal: Right knee tenderness but does not limit her mobility Neurological: Moves all extremities, sensations intact Psych/Mental Status: Normal affect Assessment & Plan Assessment/Plan (1) Acute hepatic encephalopathy: PLAN: Plan 1. Acute hepatic encephalopathy with hx alcoholic cirrhosis: Patient is being admitted to the floor. Her mental status is improved since admission but he still has fluctuating level of consciousness and sometimes inattention. On lactulose and Xifaxan. Ammonia 119. Continue IV fluid for mild dehydration and hold Lasix and spironolactone. Continue Colleen. As per ED physician note, his brother Vaibhav Esposito made comment to outside facility ED physician that he cannot take care of her further. 2. Decompensated alcoholic cirrhosis with portal hypertension, varices and gastropathy:-Recently established with gastroenterology 12/10/2022. She is to have outpatient endoscopy to eval for varices and gastropathy. As an outpatient see had HIV hep B surface antibody ferritin and complete work-up for causes of cirrhosis including AFP. -Based on documentation has been sober from alcohol for 1 year, he is alcohol less than 3. Urine tox screen shows positive ecstasy. ? Case management and social work consult to assist with DC dispo given brothers report that he cannot care for her any further, will consult [facility] as she is able to ambulate throughout the entire unit to see if we can place her into an inpatient psych unit given the fact that she is continuing to be confused and encephalopathic #Thrombocytopenia -Secondary to her cirrhosis -Appears to be at baseline #History of depression, anxiety, PTSD -Continue Wellbutrin, citalopram, prazosin -We will restart Seroquel tonight. Appreciate [facility]'s evaluation plan for discharge to facility #Morbid obesity -BMI 45.8 -Complicates treatment, prognosis, outcomes -Recommend weight loss and lifestyle changes DVT: SCDs Charges/Coding Visit Charges Inpatient E&M: 98915 Subs Hosp L2
--- NOTE | 2023-01-05 12:26 | CASEMGMT ---
Social Work Note JOSE given update by speed belt sander tender that the patient has been tearful and on the phone this morning. SW met with patient in patient room. Patient was tearful and reports her aunt . Patient also reports anxiety in regards to placement and her living situation. Patient reports being told by her MD that she is crazy and will likely never be independent safely. SW provided patient with emotional support. SW discussed a transfer to a [facility] hospital to better assist patient with her medical and mental health concerns. Patient reports she does not feel like her medication is helping her due to continuing to have these black out experiences. Patient also reports she didn't sleep a lick last night after hearing her aunt . Patient reports having high anxiety and pain from her liver. Patient is agreeable to [facility] and requested this SW assist her with talking to her children as she does not want to become overly negative when she explains where she is going. Patient also inquired about SW's ability to talk with her counselor, Elis Feldman, with [facility], explaining the patient was talking with Elis today and was confused about social security. SW continued to provide patient with emotional support and encouragement and will follow up with patient's counselor and assist patient with talking to her sons. Patient requesting to go for a walk in the halls to decrease anxiety. Patient's RN in agreement and going to assist patient as needed. JOSE contacted [facility] to inquire about bed availability and was informed they had beds available. JOSE faxed referral. JOSE contacted [facility] as they also have a [facility] inpatient unit and inquired about their bed availability. Admissions staff took verbal referral. JOSE discussed concerns regarding discharge home. Admissions staff report they have a social media assistant on staff that can assist with discharge planning and is aware of [facility]. JOSE faxed referral. JOSE updated MD Chapman of referrals. [facility] called JOSE with acceptance. Admissions staff report they need a negative covid and chest xray. Admissions staff will be faxing consent forms for SW to assist patient with and fax back to their facility. JOSE updated MS speed belt sander tender and MD Chapman with acceptance. MD to order covid test and test xray. Plan: [facility] Janna Montano MSW, DIANELYS
[2023-01-05 12:50] VITALS: BP 106/55; PULSE 62; RESP 18; TEMP 36.4; O2SAT 98
--- NOTE | 2023-01-05 13:45 | RAD_ITS ---
STUDY: X-RAY CHEST REASON FOR EXAM: Female, 52 years old. Medical clearance TECHNIQUE: Single AP portable view of the chest. COMPARISON: None. FINDINGS: The lungs are clear and expanded. There is no demonstrated pleural abnormality. Normal size heart. Normal mediastinum and marlen. Normal visualized pulmonary arteries. Normal visualized aortic arch and descending thoracic aorta. Normal visualized thoracic spine. Normal visualized ribs, clavicles, and shoulders. Evidence previous right glenoid labral repair There is no demonstrated abnormality of the visualized soft tissue structures of the upper abdomen. RAD/Chest 1 View IMPRESSION: No acute pulmonary process Electronically Signed: Enrique Garcia MD at 14:03 EDT ,
--- NOTE | 2023-01-05 15:10 | NURSING ---
[facility] called and said to fax information to the following number : [phone]
--- NOTE | 2023-01-05 17:30 | PCM.PROGNOTE ---
Subjective Subjective Patient is doing better and regarding her hepatic encephalopathy. She is eating. She is having bowel movements. However she does admit to some hallucinations and intermittent nightmares secondary to posttraumatic stress disorder. Objective Data Objective Data Vital Signs: Vital Signs Temp Pulse Resp BP Pulse Ox O2 Del Method 97.6 F L 62 18 106/55 L 98 Room Air 01/05/23 12:50 01/05/23 12:50 01/05/23 12:50 01/05/23 12:50 01/05/23 12:50 01/05/23 12:50 Oxygen Delivery Method Room Air Weight: 276 lb 3.827 oz Body Mass Index (BMI) 43.3 Intake & Output: Intake and Output for Last 24 Hours 01/03/23 01/04/23 01/05/23 23:59 23:59 23:59 Intake Total 3200 / 3200 500 / 500 Balance 3200 / 3200 500 / 500 Lab / Micro Data Result Diagrams: 01/05/23 06:00 01/05/23 06:00 Labs: Laboratory Results - last 24 hr 01/05/23 06:00: WBC 4.5, RBC 4.34, Hgb 13.1, Hct 40.3, MCV 92.9, MCH 30.2, MCHC 32.5, RDW Std Deviation 50.4 H, RDW Coeff of Stephon 14.7 H, Plt Count 92 L, MPV 10.5, Immature Gran % (Auto) 0.200, Neut % (Auto) 41.2 L, Lymph % (Auto) 34.1, [place] % (Auto) 12.9 H, Eos % (Auto) 10.7 H, Baso % (Auto) 0.9, Absolute Neuts (auto) 1.9 L, Absolute Lymphs (auto) 1.53, Nucleated RBC % 0 01/05/23 06:00: Sodium 140, Potassium 3.9, Chloride 108 H, Carbon Dioxide 28.0, Anion Gap 4 L, BUN 9, Creatinine 0.68, Estim Creat Clear Calc 88.54, Est GFR (MDRD) Af Amer 116, Est GFR (MDRD) Non-Af 96, BUN/Creatinine Ratio 13.3, Glucose 132 H, Calcium 9.0, Magnesium 1.8, Total Bilirubin 0.90, AST 38 H, ALT 28, Alkaline Phosphatase 139 H, Total Protein 5.9 L, Albumin 2.7 L, Globulin 3.2, Albumin/Globulin Ratio 0.8 L 01/05/23 06:00: PT 15.0 H, INR 1.2, APTT 33.2 01/05/23 06:00: Phosphorus 3.5 01/05/23 16:23: Ammonia 133.0 H Micro: Microbiology 01/05/23 11:15 Nasal Secretion SARS-CoV-2 Antigen (Rapid) - Final Radiography Diagnostic Testing: Radiology Impression Chest X-Ray 01/05/23 13:45 IMPRESSION: No acute pulmonary process Electronically Signed: Enrique Garcia MD at 14:03 EDT , Physical Exam Narrative General: Alert, oriented, Cooperative, No apparent distress HEENT: Atraumatic, PERRLA, EOMI, Normocephalic Oral: Moist Mucosa Neck: Supple, No JVD Lungs: Diminished, Normal air movement, No rhonchi, No wheeze, No rales Cardiovascular: Regular rate, Regular Rhythm, Normal S1, Normal S2, No murmurs Abdomen: Soft, Non Tender, Non-Distended, No Hepato-splenomegaly Extremities: No edema, Capillary Refill Less than 3 Seconds Skin: No rashes, No breakdown Musculoskeletal: Right knee tenderness but does not limit her mobility Neurological: Moves all extremities, sensations intact Psych/Mental Status: Normal affect Assessment & Plan Assessment/Plan (1) Hepatic encephalopathy: PLAN: Plan The patient is a 52 y/o F with history of alcoholic cirrhosis was admitted for confusion, altered mental status consistent with hepatic encephalopathy. 1. Acute hepatic encephalopathy due to decompensated alcoholic cirrhosis with portal hypertension, thrombocytopenia and ascites: Patient was not taking lactulose on admission. Patient is still mildly confused. Continue lactulose, rifaximin, Lasix and add spironolactone. Strict intake and output, fluid restriction less than 1500 mL, daily weight monitoring, kidney and electrolytes monitoring. Denies recent history of hematemesis or melena. Patient is states he is sober for about 1 year. She needs to be further follow-up with tertiary care for liver transplant evaluation and listing. Plan is for EGD while she is inpatient in the hospital. #2. Anxiety and depression: Discontinue citalopram and BuSpar as well as Seroquel as needed regimen as patient is confused and resume once she is more alert. #3. Chronic anemia, iron deficiency anemia: Admission hemoglobin 13, and mild ascites hemoglobin is on baseline. #4. Hypertension: Continue home regimen including Lasix, prazosin, propranolol with hold parameters as needed, PRN hydralazine. #5. Hyperlipidemia: Not on statin therapy, defer given underlying history. #6. Tobacco Abuse: Prior cigarette tobacco use with transition to vaping encouraged vaping tobacco cessation, inpatient consultation per RT, NR if desired. #7. Former alcohol abuse with associated chronic alcoholic liver cirrhosis as noted #1: Encourage continued sobriety, case management consulted. #8. Former polysubstance abuse: Notes history of previous amphetamine/methamphetamine, encourage continued clean status, reports clean since 11/26/2021. Charges/Coding Visit Charges Inpatient E&M: 89096 Subs Hosp L3
--- NOTE | 2023-01-05 19:45 | CASEMGMT ---
Social Work Note Marketing Project Lead contacted patient's counselor per patient's request to provide update regarding patient's placement. Elis Feldman. AOD counselor with [facility] at [phone], spoke with this SW via phone. SW to fax LINDA to Elis at [phone]. SW updated patient's counselor regarding the plan for patient to be transferred to [facility] for mike psych. Elis reports the patient has a lot of medical issues that have been impacting her thought process. Elis also explained their agency does not have caseworker intake at the current time, however, she recalled the patient had made contact with [facility] recently but was unsure of what services. Elis also reported the patient was concerned about social security benefits but had offered the patient assistance if she is able. Elis then explained she would follow up with patient and discuss scheduling a visit while at [facility]. JOSE contacted [facility] on [facility] and was directed to contact [facility] with [place] at [phone]. JOSE received a call back from Valerie, a member of the screening department, and informed this SW the patient had an assessment on January 01 and is pending the [place] [facility] Waiver. JOSE inquired about [facility] binder caser and the assisted Living Waiver. Valerie explained they don't typically change the waiver once it is pending but when the patient returned from mike psych placement to a county they serve, their agency could further assist patient with an assessment for addition services. Valerie in agreement for this social work supervisor to provide [facility] with her contact information to be contacted close to discharge to schedule an appointment with patient. Valerie's direct line with [facility] is [phone]. JOSE met with patient to provide her with an update as well as assist her with completing consent forms needed for [facility] as they were accepting her into their mike psych Assisted unit. Patient reports talking with her sons about mike psych placement and felt supported. Patient also reported previous positive experiences with [facility]. Patient explained she was contacted by a [facility] binder caser named Natalie, [phone], in response to an appointment she had in May. SW encouraged patient to contact the binder caser to have her assist the patient with applying for Social Security benefits. SW then assisted patient in signing consent forms for [facility]. Patient inquired about her ability to leave for a night if needed, her ability to have her phone and explained her policy officer needed the patient to be able to take random drug tests at her request as it is apart of her probation. SW to follow up regarding patient's questions but explained the patient would not be able to leave and come back as she would be admitted to their hospital. Patient reported an understanding and explained she was interested in the Covid vaccine and to remain at the hospital until she had her outpatient appointments. SW explained the appointments could be rescheduled as she does not have to be inpatient to attend them and SW would inquire about the covid vaccine. Patient then voiced that her group home housing goal is to move to [facility] to be with her sons. JOSE attempted to contact patient's brother, however he did not answer and there was no option to leave a voicemail. 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 JOSE faxed consent forms, chest xray and negative covid test to [facility]. JOSE was contacted by admissions staff with [facility] and informed the patient was now declined due to her ammonia levels they received from [facility] staff, as they feel the patient is not medically ready. JOSE informed MD Chapman. Janna HICKS, DIANELYS
[2023-01-05 21:48] VITALS: BP 115/72; PULSE 65; RESP 18; TEMP 36.6; O2SAT 99
[2023-01-05] MEDS: 0.9% Saline Lock 10 ML Syringe IV (21:52)
[2023-01-05] MEDS: Doxazosin 1 MG Tablet 2 MG PO (22:06)
[2023-01-05] MEDS: MELATONIN 3 MG TABLET PO (22:06)
[2023-01-06] VITALS (10 sets, daily range): BP systolic 102–137; BP diastolic 59–101; PULSE 58–72; RESP 18; TEMP 36.3–37.2; O2SAT 92–100; BMI 46.2
--- NOTE | 2023-01-06 | GASB_PTH ---
PATHOLOGY RESULTS PATIENT: EVER VERDUZCO LOC: MS3 U#:[id number] AGE/SX: 52/F ROOM: [facility] RE01/02/[address]: Dr. Irina Eid MD : 1970 BED: 1 DIS: 01/16/2023 SPEC #: [id number] RECD: 01/06/23 13:33 STATUS: ISH CROWDER #: [id number] BARRIE: 01/06/23 00:[address]: Samir Ramos DEPT: SURGICAL PATHOLOGY RECD BY: Michele Ballard ENTERED: 01/07/23 09:27 SP TYPE: Gastric Bx OTHR DR: MD Dr. Placido Rubio MD Dr. Paige Pierce, MD Danielle Byler, BACK HANGER-C Tissues: Gastric mucous membrane Procedures: Surgery Specimen Level IV Comments: @ Ordering doctor for SUIV edited from to @ malia MARTINEZ at 01/07/23 1232 @ Submitting doctor edited from to @ by LACHOOD at 01/07/23 1232 HEADER OPERATION: EGD ([facility]) PRE-OP DIAGNOSIS: Hepatic encephalopathy, alcoholic cirrhosis TISSUE SUBMITTED: Gastritis ? gastric biopsy MICROSCOPIC DIAGNOSIS Gastric biopsy: Moderate chronic active gastritis. See comment. SAIMA:gardenia 01/08/2023 COMMENT The results of immunohistochemistry for Helicobacter pylori will be reported separately ([id number]). MICROSCOPIC DESCRIPTION Slides are reviewed. GROSS DESCRIPTION Received in fixative is one container labeled with the patient's name and designated gastric biopsy. The specimen consists of multiple irregular fragments of light dodson soft tissue that in aggregate measure 0.8 x 0.5 x 0.1 cm. The specimen is totally submitted in one cassette. / SAIMA:gardenia 01/07/2023 TC:2 CPT: 23422
[2023-01-06] MEDS: oxyCODONE 5 MG Tablet PO ×2 (05:19→20:52)
[2023-01-06] MEDS: Propranolol 10 MG Tablet 20 MG PO ×3 (05:19→20:53)
[2023-01-06] MEDS: Citalopram 40 MG TABLET PO (08:16)
[2023-01-06] MEDS: buPROPion (XL) 300 MG TABLET.XL PO (08:16)
[2023-01-06] MEDS: Ursodiol 250 MG Tablet PO ×2 (08:16→20:53)
[2023-01-06] MEDS: Lidocaine 5% Patch 2 PATCH TOPICAL (08:16)
[2023-01-06] MEDS: rifAXIMin 550 MG Tablet PO ×2 (08:16→20:54)
[2023-01-06] MEDS: Lactulose 20 GM/30 ML UDC PO ×4 (08:16→20:54)
[2023-01-06] MEDS: Nystatin Powder 15gm Bottle 1 APPLIC TOPICAL (08:19)
--- NOTE | 2023-01-06 09:51 | PCM.PN.HOSP ---
Subjective Subjective Continues to demonstrate odd behavior as reported by nursing staff. No issues overnight Objective Data Objective Data Vital Signs: Vital Signs Temp Pulse Resp BP Pulse Ox O2 Del Method 98.9 F 58 L 18 124/73 H 98 Room Air 01/06/23 08:12 01/06/23 08:12 01/06/23 08:12 01/06/23 08:12 01/06/23 08:12 01/06/23 08:12 Oxygen Delivery Method Room Air Weight: 294 lb 9.6 oz Body Mass Index (BMI) 46.2 Intake & Output: Intake and Output for Last 24 Hours 01/05/23 01/06/23 01/07/23 03:59 03:59 03:59 Intake Total 3200 / 3200 900 / 900 Balance 3200 / 3200 900 / 900 Lab / Micro Data Result Diagrams: 01/05/23 06:00 01/05/23 06:00 Labs: Laboratory Results - last 24 hr 01/05/23 16:23: Ammonia 133.0 H Micro: Microbiology 01/05/23 11:15 Nasal Secretion SARS-CoV-2 Antigen (Rapid) - Final Radiography Diagnostic Testing: Radiology Impression Chest X-Ray 01/05/23 13:45 IMPRESSION: No acute pulmonary process Electronically Signed: Enrique Garcia MD at 14:03 EDT , Physical Exam Narrative General: Alert, oriented, Cooperative, No apparent distress HEENT: Atraumatic, PERRLA, EOMI, Normocephalic Oral: Moist Mucosa Neck: Supple, No JVD Lungs: Diminished, Normal air movement, No rhonchi, No wheeze, No rales Cardiovascular: Regular rate, Regular Rhythm, Normal S1, Normal S2, No murmurs Abdomen: Soft, Non Tender, Non-Distended, No Hepato-splenomegaly Extremities: No edema, Capillary Refill Less than 3 Seconds Skin: No rashes, No breakdown Musculoskeletal: Right knee tenderness but does not limit her mobility Neurological: Moves all extremities, sensations intact Psych/Mental Status: Normal affect, has endorsed hallucination of a cat Assessment & Plan Assessment/Plan (1) Acute hepatic encephalopathy: PLAN: Plan 1. Acute hepatic encephalopathy with hx alcoholic cirrhosis/decompensated alcoholic cirrhosis with portal hypertension and varices and gastropathy/thrombocytopenia ? She is continued on lactulose and rifaximin however it continues to demonstrate odd behavior ? She has been refused at [facility] facility secondary to an elevated ammonia which is an unreliable marker to gauge improvement in encephalopathy however they will not accept her until her ammonia is below an arbitrary level ? She continues to be medically clear for discharge however she is not safe for discharge home ? We will continue to with lactulose, Xifaxan, ursodiol ? Appreciate GIs assistance 2. Depression/anxiety/PTSD ? We will resume all of her home medications ? Continue with Seroquel 3. Morbid obesity ? Discussed lifestyle modifications DVT: SCDs Charges/Coding Visit Charges Inpatient E&M: 23167 Subs Hosp L2
[2023-01-06] MEDS: Lactated Ringers 1,000 ML 15 ML IV (12:09)
--- NOTE | 2023-01-06 12:45 | IMM_PTH ---
PATHOLOGY RESULTS PATIENT: EVER VERDUZCO LOC: 3 U#:[id number] AGE/SX: 52/F ROOM: [facility] RE01/02/[address]: Dr. Irina Eid MD : 1970 BED: 1 DIS: 01/16/2023 SPEC #: [id number] RECD: 01/07/23 12:32 STATUS: ISH REQ #: [id number] BARRIE: 01/06/23 12:[address]: Samir Ramos DEPT: IMMUNOHISTOCHEMISTRY RECD BY: Mariangel Murray ENTERED: 01/07/23 12:33 SP TYPE: IMMUNO OTHR DR: MD Dr. Placido Rubio MD Dr. Paige Pierce, MD Danielle Byler, CASH POSTER-C Tissues: Stomach, NOS Procedures: H Pylori (initial) PHYSICIAN & INSTITUTION [place] [address] SPECIMEN INFORMATION: Tissue Source: Gastric biopsy Clinical Info: Hepatic encephalopathy, alcoholic cirrhosis Specimen Number: [id number] CPT code: 54239 METHODOLOGY: Deparaffinized sections of prefer/formalin-fixed tissue or PAP/DQ stained slides are incubated with monoclonal/polyclonal antibodies/oligonucleotide probes. Localization is made via biotin free immunoperoxidase method. Appropriate controls are performed and reacted as expected. Results on target cell population are indicated in the following table: RESULTS: ANTIBODY / CLONE RESULT H Pylori (polyclonal) negative These tests were developed and their performance characteristics determined by [facility]. They may not have been cleared or approved by the U.S. Food and Drug Administration. The FDA has determined that such clearance or approval is not necessary. The above immunohistochemical/dualISH markers are ordered and reviewed by the Pathologist. INTERPRETATION: Gastric biopsy: Negative for Helicobacter pylori organisms. SJ:gardenia 01/08/2023
--- NOTE | 2023-01-06 13:33 | OP.EGD_ITS ---
Patient Name: Patt Mckeon Procedure Date: 01/06/2023 1:06 PM Date of : 1970 Age: 52 Procedure: Upper GI endoscopy Indications: Epigastric abdominal pain, Cirrhosis rule out esophageal varices Providers: Samir Ramos DO Medicines: Monitored Anesthesia Care Patient Profile: This is a 52 year old female. Refer to note in patient chart for documentation of history and physical. Patient has symptoms of chronic epigastric abdominal pain and chronic nausea. Complications: No immediate complications. Procedure: Pre-Anesthesia Assessment: - Prior to the procedure, a History and Physical was performed, and patient medications and allergies were reviewed. The risks and benefits of the procedure and the sedation options and risks were discussed with the patient. All questions were answered and informed consent was obtained. Patient identification and proposed procedure were verified by the physician in the pre-procedure area. Mental Status Examination: alert and oriented. Respiratory Examination: clear to auscultation. CV Examination: normal. Prophylactic Antibiotics: The patient does not require prophylactic antibiotics. Prior Anticoagulants: The patient has taken no previous anticoagulant or antiplatelet agents. ASA Grade Assessment: II - A patient with mild systemic disease. After reviewing the risks and benefits, the patient was deemed in satisfactory condition to undergo the procedure. The anesthesia plan was to use monitored anesthesia care (MAC). Immediately prior to administration of medications, the patient was re-assessed for adequacy to receive sedatives. The heart rate, respiratory rate, oxygen saturations, blood pressure, adequacy of pulmonary ventilation, and response to care were monitored throughout the procedure. The physical status of the patient was re-assessed after the procedure. After obtaining informed consent, the endoscope was passed under direct vision. Throughout the procedure, the patient's blood pressure, pulse, and oxygen saturations were monitored continuously. The gastroscope was introduced through the mouth, and advanced to the second part of duodenum. The upper GI endoscopy was accomplished with ease. The patient tolerated the procedure well. Scope In: 1:18:31 PM Scope Out: 1:21:40 PM Total Procedure Duration Time 0 hours 3 minutes 9 seconds Findings: LA Grade A (one or more mucosal breaks less than 5 mm, not extending between tops of 2 mucosal folds) esophagitis with no bleeding was found 35 to 37 cm from the incisors. A large hiatal hernia was present. Mild portal hypertensive gastropathy was found in the stomach. Multiple bleeding localized erosions were found in the cardia. There were stigmata of recent bleeding. Coagulation for hemostasis using argon plasma at 0.3 liters/minute and 20 calvert was successful. Segmental severe inflammation characterized by congestion (edema), erosions and erythema was found in the gastric body. Biopsies were taken with a cold forceps for histology. Verification of patient identification for the specimen was done. Estimated blood loss was minimal. No gross lesions were noted in the first portion of the duodenum. Type 1 isolated gastric varices (IGV1, varices located in the fundus) with no bleeding were found in the cardia. There were no stigmata of recent bleeding. They were 5 mm in largest diameter. Impression: - LA Grade A erosive esophagitis. - Large hiatal hernia. - Portal hypertensive gastropathy. - Gastric erosions with stigmata of recent bleeding. Treated with argon plasma coagulation (APC). - Bile gastritis. Biopsied. - No gross lesions in the first portion of the duodenum. Recommendation: - [facility]. - Resume previous diet. - Continue present medications. - Await pathology results. Procedure Code(s): --- Professional --- 52078, 59, Esophagogastroduodenoscopy, flexible, transoral; with control of bleeding, any method 50547, 51, Esophagogastroduodenoscopy, flexible, transoral; with biopsy, single or multiple CPT copyright 2017 [employer]. All rights reserved. The codes documented in this report are preliminary and upon carpenters supervisor review may be revised to meet current compliance requirements. Samir Ramos DO 01/06/2023 1:33:08 PM This report has been signed electronically. Number of Addenda: 0 Note Initiated On: 01/06/2023 1:06 PM
--- NOTE | 2023-01-06 13:33 | OP.CCLET_ITS ---
01/06/2023 [facility]ulty Re : Upper GI endoscopy procedure for Patt Mckeon Dear Isra This procedure was performed on Friday, January 06, 2023. My impressions and recommendations are as follows: Impressions : - LA Grade A erosive esophagitis. - Large hiatal hernia. - Portal hypertensive gastropathy. - Gastric erosions with stigmata of recent bleeding. Treated with argon plasma coagulation (APC). - Bile gastritis. Biopsied. - No gross lesions in the first portion of the duodenum. Recommendations : - [facility]. - Resume previous diet. - Continue present medications. - Await pathology results. My findings are described in the full procedure note, which is enclosed. If I can be of further assistance, please feel free to contact me at . Sincerely, Samir Ramos, 01/06/2023 1:33:08 PM This report has been signed electronically.
--- NOTE | 2023-01-06 15:09 | CASEMGMT ---
Social Work SW following up on ammonia level, which is cause of interrupted discharge to inpatient facility. SW informed MD Adela Marcos not willing to accept pt until this level is down and a new ammonia lab is needed. ADALBERTO Hernandez
[2023-01-06] MEDS: QUEtiapine 100 MG Tablet PO (20:53)
[2023-01-06] MEDS: Doxazosin 1 MG Tablet 2 MG PO (20:53)
[2023-01-07 03:30] VITALS: BP 136/74; PULSE 74; RESP 18; TEMP 36.8; O2SAT 92
[2023-01-07 06:00] VITALS: BMI 43.2
[2023-01-07] MEDS: Propranolol 10 MG Tablet 20 MG PO ×3 (06:03→20:27)
[2023-01-07 07:49] LABS: Absolute Lymphocyte Count 1.36 X10^3/uL (0.83-4.51); Absolute Neutrophil Count 1.2 X10^3/uL (2.0-7.7); Basophil# 0.03 X10^3/uL; Basophil% 0.9 % (0-1); Eosinophil# 0.26 X10^3/uL; Eosinophils% 7.7 % (0-5); Hematocrit 38.5 % (37-47); Hemoglobin 12.7 g/dL (12.0-15.0); Lymphocyte # 1.36 X10^3/ul (0.83-4.51); Lymphocyte % 40.5 % (19-41); Mean Corpuscular Hgb 30.6 pg (27.0-32.0); Mean Corpuscular Volume 92.8 fL (81-99); Mean Platelet Vol. 10.6 fl (6.2-12.0); Monocyte# 0.53 X10^3/uL; Monocyte% 15.8 % (0-10); NRBC Flagged by Analyzer 0 % (0-5); Neutrophil # 1.18 X10^3/uL (2.7-7.7); Neutrophil % 35.1 % (47-70); POSITIVE COUNT YES; Platelet Count 83 K/mm3 (150-450); RBC Distribution Width CV 14.6 % (11.6-14.6); RBC Distribution Width SD 48.8 fl (35.1-43.9); Red Blood Count 4.15 M/mm3 (4.2-5.4); White Blood Count 3.4 K/mm3 (4.4-11.0)
[2023-01-07 09:09] LABS: ALB/GLOB Ratio 0.9 RATIO (0.9-2.4); AST(SGOT) 34 U/L (15-37); Alanine Aminotransfer ALT/SGPT 27 U/L (13-56); Albumin, Serum 2.6 g/dL (3.2-5.0); Alkaline Phosphatase 121 U/L (45-117); Anion Gap 4 (5-15); BUN 15 mg/dL (7-18); BUN/Creat Ratio 22.3 RATIO (10-20); Calcium,Total 8.9 mg/dL (8.5-10.1); Chloride 111 mmol/L (98-107); Creatinine, Serum 0.67 mg/dL (0.55-1.02); EST Glomerular Filtration Rate 97 mL/min (>60); Est Glom Filt Rate - Afr Amer 117 mL/min (>60); Estimated Creatinine Clearance 89.86 ml/min; Glucose 113 mg/dL (74-106); Protein, Total 5.6 g/dL (6.4-8.2); Sodium Level 143 mmol/L (136-145)
[2023-01-07 09:30] VITALS: BP 126/75; PULSE 62; RESP 18; TEMP 36.6; O2SAT 98
--- NOTE | 2023-01-07 10:29 | PCM.PN.HOSP ---
Subjective Subjective EGD yesterday with gastritis no issues overnight Objective Data Objective Data Vital Signs: Vital Signs Temp Pulse Resp BP Pulse Ox O2 Del Method 98.2 F 74 18 136/74 H 92 Room Air 01/07/23 03:30 01/07/23 03:30 01/07/23 03:30 01/07/23 03:30 01/07/23 03:30 01/07/23 03:30 Oxygen Delivery Method Room Air Weight: 606 lb 14.921 oz Body Mass Index (BMI) 95.2 Intake & Output: Intake and Output for Last 24 Hours 01/06/23 01/07/23 01/08/23 03:59 03:59 03:59 Intake Total 900 / 900 182.75 / 182.75 100 / 100 Balance 900 / 900 182.75 / 182.75 100 / 100 Lab / Micro Data Result Diagrams: 01/07/23 07:00 01/07/23 08:15 Labs: Laboratory Results - last 24 hr 01/06/23 16:01: Ammonia 136.0 H 01/07/23 07:00: WBC 3.4 L, RBC 4.15 L, Hgb 12.7, Hct 38.5, MCV 92.8, MCH 30.6, MCHC 33.0, RDW Std Deviation 48.8 H, RDW Coeff of Stephon 14.6, Plt Count 83 L, MPV 10.6, Immature Gran % (Auto) 0.000, Neut % (Auto) 35.1 L, Lymph % (Auto) 40.5, [place] % (Auto) 15.8 H, Eos % (Auto) 7.7 H, Baso % (Auto) 0.9, Absolute Neuts (auto) 1.2 L, Absolute Lymphs (auto) 1.36, Nucleated RBC % 0 01/07/23 07:00: Sodium Cancelled, Potassium Cancelled, Chloride Cancelled, Carbon Dioxide Cancelled, Anion Gap Cancelled, BUN Cancelled, Creatinine Cancelled, Estim Creat Clear Calc Cancelled, Est GFR (MDRD) Af Amer Cancelled, Est GFR (MDRD) Non-Af Cancelled, BUN/Creatinine Ratio Cancelled, Glucose Cancelled, Calcium Cancelled, Total Bilirubin Cancelled, AST Cancelled, ALT Cancelled, Alkaline Phosphatase Cancelled, Total Protein Cancelled, Albumin Cancelled, Globulin Cancelled, Albumin/Globulin Ratio Cancelled 01/07/23 08:15: Sodium 143, Potassium 4.0, Chloride 111 H, Carbon Dioxide 28.0, Anion Gap 4 L, BUN 15, Creatinine 0.67, Estim Creat Clear Calc 89.86, Est GFR (MDRD) Af Amer 117, Est GFR (MDRD) Non-Af 97, BUN/Creatinine Ratio 22.3 H, Glucose 113 H, Calcium 8.9, Total Bilirubin 0.80, AST 34, ALT 27, Alkaline Phosphatase 121 H, Total Protein 5.6 L, Albumin 2.6 L, Globulin 3.0, Albumin/Globulin Ratio 0.9 Micro: Microbiology 01/05/23 11:15 Nasal Secretion SARS-CoV-2 Antigen (Rapid) - Final Physical Exam Narrative General: Alert, oriented, Cooperative, No apparent distress HEENT: Atraumatic, PERRLA, EOMI, Normocephalic Oral: Moist Mucosa Neck: Supple, No JVD Lungs: Diminished, Normal air movement, No rhonchi, No wheeze, No rales Cardiovascular: Regular rate, Regular Rhythm, Normal S1, Normal S2, No murmurs Abdomen: Soft, Non Tender, Non-Distended, No Hepato-splenomegaly Extremities: No edema, Capillary Refill Less than 3 Seconds Skin: No rashes, No breakdown Musculoskeletal: Right knee tenderness but does not limit her mobility Neurological: Moves all extremities, sensations intact Psych/Mental Status: Normal affect, has endorsed hallucination of a cat Assessment & Plan Assessment/Plan (1) Acute hepatic encephalopathy: PLAN: Plan 1. Acute hepatic encephalopathy with hx alcoholic cirrhosis/decompensated alcoholic cirrhosis with portal hypertension and varices and gastropathy/thrombocytopenia ? She is continued on lactulose and rifaximin however it continues to demonstrate odd behavior ? She has been refused at [facility] facility secondary to an elevated ammonia which is an unreliable marker to gauge improvement in encephalopathy however they will not accept her until her ammonia is below an arbitrary level ? She continues to be medically clear for discharge however she is not safe for discharge home ? We will continue to with lactulose, Xifaxan, ursodiol ? We will place her on a PPI, she had an EGD on 01/06/2023 with gastritis ? Appreciate GIs assistance 2. Depression/anxiety/PTSD ? We will resume all of her home medications ? Continue with Seroquel 3. Morbid obesity ? Discussed lifestyle modifications DVT: SCDs Charges/Coding Visit Charges Inpatient E&M: 86631 Subs Hosp L2
[2023-01-07] MEDS: Citalopram 40 MG TABLET PO (10:33)
[2023-01-07] MEDS: rifAXIMin 550 MG Tablet PO ×2 (10:33→20:28)
[2023-01-07] MEDS: Lactulose 20 GM/30 ML UDC PO ×4 (10:33→20:28)
[2023-01-07] MEDS: buPROPion (XL) 300 MG TABLET.XL PO (10:33)
[2023-01-07] MEDS: Ursodiol 250 MG Tablet PO ×2 (10:33→20:27)
[2023-01-07] MEDS: oxyCODONE 5 MG Tablet PO ×2 (10:42→17:21)
[2023-01-07] MEDS: 0.9% Saline Lock 10 ML Syringe IV (10:44)
[2023-01-07] MEDS: Menthol/Lanolin/Calamine/Znox 113 GM Tube 1 APPLIC TOPICAL (12:40)
[2023-01-07] MEDS: Nystatin Powder 15gm Bottle 1 APPLIC TOPICAL ×2 (12:41→20:28)
[2023-01-07] MEDS: Pantoprazole Sodium 40 MG Tablet PO ×2 (12:42→20:27)
[2023-01-07 14:21] VITALS: BP 112/52; PULSE 73; RESP 112; TEMP 36.5; O2SAT 97
--- NOTE | 2023-01-07 16:30 | CASEMGMT ---
Social Work Note SW spoke with MD Chapman regarding patient's ammonia levels, MD to order. SW contacted [facility] to inquire about [facility] Admissions staff reviewed patient's referral and recent updates. Admissions staff to review again with their MD. Admissions staff contacted this SW and explained their MD continued to decline the referral explaining the patient is a little younger than they typically accept and due to her previous alcohol use, they feel they can not provide the care the patient needs. SW contacted [facility] to inquire about available beds, admissions staff report no beds available. SW contacted [facility] to inquire about available beds, admissions staff report patient has to be 55 or older to be admitted at their facility. SW contacted [facility] to inquire about available beds, admissions staff report there are mike beds available and adult beds available tomorrow. SW faxed referral. SW contacted [facility] at [facility] to inquire about available beds, SW provided a verbal referral and inquired about their ability to provide random drug tests. Admissions staff to contact this SW with more information. SW contacted [facility] to inquire about available beds, admissions staff report available beds, faxing referral. Plan: referrals pending at [facility] and [facility]
[2023-01-07] MEDS: metroNIDAZOLE 500 MG Tablet PO ×2 (17:20→20:27)
[2023-01-07] MEDS: Azithromycin 250 MG Tablet 500 MG PO (17:20)
--- NOTE | 2023-01-07 18:25 | PN_ITS ---
Subjective Subjective Patient has been compliant with her medicines. She seems alert awake and oriented x3. Objective Data Objective Data Vital Signs: Vital Signs Temp Pulse Resp BP Pulse Ox O2 Del Method 97.7 F L 73 112 H 112/52 L 97 Room Air 01/07/23 14:21 01/07/23 14:21 01/07/23 14:21 01/07/23 14:21 01/07/23 14:21 01/07/23 14:21 Oxygen Delivery Method Room Air Weight: 606 lb 14.921 oz Body Mass Index (BMI) 95.2 Intake & Output: Intake and Output for Last 24 Hours 01/05/23 01/06/23 01/07/23 23:59 23:59 23:59 Intake Total 900 / 900 182.75 / 182.75 820 / 820 Balance 900 / 900 182.75 / 182.75 820 / 820 Lab / Micro Data Result Diagrams: 01/07/23 07:00 01/07/23 08:15 Labs: Laboratory Results - last 24 hr 01/07/23 07:00: WBC 3.4 L, RBC 4.15 L, Hgb 12.7, Hct 38.5, MCV 92.8, MCH 30.6, MCHC 33.0, RDW Std Deviation 48.8 H, RDW Coeff of Stephon 14.6, Plt Count 83 L, MPV 10.6, Immature Gran % (Auto) 0.000, Neut % (Auto) 35.1 L, Lymph % (Auto) 40.5, [place] % (Auto) 15.8 H, Eos % (Auto) 7.7 H, Baso % (Auto) 0.9, Absolute Neuts (auto) 1.2 L, Absolute Lymphs (auto) 1.36, Nucleated RBC % 0 01/07/23 07:00: Sodium Cancelled, Potassium Cancelled, Chloride Cancelled, Carbon Dioxide Cancelled, Anion Gap Cancelled, BUN Cancelled, Creatinine Canc elled, Estim Creat Clear Calc Cancelled, Est GFR (MDRD) Af Amer Cancelled, Est GFR (MDRD) Non-Af Cancelled, BUN/Creatinine Ratio Cancelled, Glucose Cancelled, Calcium Cancelled, Total Bilirubin Cancelled, AST Cancelled, ALT Cancelled, Alkaline Phosphatase Cancelled, Total Protein Cancelled, Albumin Cancelled, Globulin Cancelled, Albumin/Globulin Ratio Cancelled 01/07/23 08:15: Sodium 143, Potassium 4.0, Chloride 111 H, Carbon Dioxide 28.0, Anion Gap 4 L, BUN 15, Creatinine 0.67, Estim Creat Clear Calc 89.86, Est GFR (MDRD) Af Amer 117, Est GFR (MDRD) Non-Af 97, BUN/Creatinine Ratio 22.3 H, Glucose 113 H, Calcium 8.9, Total Bilirubin 0.80, AST 34, ALT 27, Alkaline P hosphatase 121 H, Total Protein 5.6 L, Albumin 2.6 L, Globulin 3.0, Albumin/Globulin Ratio 0.9 01/07/23 15:43: Ammonia 109.0 H Micro: Microbiology 01/05/23 11:15 Nasal Secretion SARS-CoV-2 Antigen (Rapid) - Final Physical Exam Narrative General: Alert, oriented, Cooperative, No apparent distress HEENT: Atraumatic, PERRLA, EOMI, Normocephalic Oral: Moist Mucosa Neck: Supple, No JVD Lungs: Diminished, Normal air movement, No rhonchi, No wheeze, No rales Cardiovascular: Regular rate, Regular Rhythm, Normal S1, Normal S2, No murmurs Abdomen: Soft, Non Tender, Non-Distended, No Hepato-splenomegaly Extremities: No edema, Capillary Refill Less than 3 Seconds Skin: No rashes, No breakdown Musculoskeletal: Right knee tenderness but does not limit her mobility Neurological: Moves all extremities, sensations intact Psych/Mental Status: Normal affect, has endorsed hallucination of a cat Assessment & Plan Assessment/Plan (1) Acute hepatic encephalopathy: PLAN: Plan 52-year-old woman with history of alcoholic cirrhosis and hepatic encephalopathy was admitted with confusion. Currently she is awake and alert and oriented x3. Acute hepatic encephalopathy with hx alcoholic cirrhosis: . Her mental status is improved since admission but he still has fluctuating level of consciousness and sometimes inattention. On lactulose and Xifaxan, azithromycin and Flagyl. I would not rely on her ammonia level. Continue IV fluid for mild dehydration a nd hold Lasix and spironolactone. Continue Colleen. As per ED physician note, his brother Vaibhav Esposito made comment to outside facility ED physician that he cannot take care of her further. Decompensated alcoholic cirrhosis with portal hypertension, varices and gastropathy: Her upper endoscopy did not show any signs of varices. She does not need prophylaxis for varices at this time. #Thrombocytopenia -Secondary to her cirrhosis -Appears to be at baseline #History of depression, anxiety, PTSD -Continue Wellbutrin, citalopram, prazosin #Morbid obesity -BMI 45.8 -Complicates treatment, prognosis, outcomes -Recommend weight loss and lifestyle changes Charges/Coding Visit Charges Inpatient E&M: 91798 Subs Hosp L3
--- NOTE | 2023-01-07 19:54 | EKG12_ITS ---
Test Reason : Blood Pressure : / mmHG Vent. Rate : 064 BPM Atrial Rate : 064 BPM P-R Int : 168 ms QRS Dur : 084 ms QT Int : 436 ms P-R-T Axes : 036 050 037 degrees QTc Int : 449 ms Normal sinus rhythm Normal ECG No previous ECGs available Confirmed by EDMAR RICCI, RONAL ([id number]), editor dictionary MAGDALENE DUBON ([id number]) on 01/12/2023 8:47:47 AM Referred By: JUJU Confirmed By:RONAL HYATT MD
--- NOTE | 2023-01-07 20:23 | NURSING ---
ekg sent to [facility]
[2023-01-07 20:24] VITALS: BP 121/74; PULSE 63; RESP 18; TEMP 37.4; O2SAT 98
[2023-01-07] MEDS: Doxazosin 1 MG Tablet 2 MG PO (20:28)
[2023-01-07] MEDS: QUEtiapine 100 MG Tablet PO (20:28)
--- NOTE | 2023-01-07 21:07 | NURSING ---
[facility] called regarding patient and stated they are going to deny patient admission.
--- NOTE | 2023-01-07 21:16 | NURSING ---
call received from [facility] in [place]. states that we cannot accept her because of her insurance and that there is no psych reason to treat her, it appears all medical
[2023-01-08 03:15] VITALS: BP 126/54; PULSE 72; RESP 18; TEMP 37; O2SAT 95
[2023-01-08] MEDS: metroNIDAZOLE 500 MG Tablet PO ×3 (04:05→21:11)
[2023-01-08] MEDS: Propranolol 10 MG Tablet 20 MG PO ×3 (04:06→21:11)
[2023-01-08 05:20] VITALS: BMI 46.4
--- NOTE | 2023-01-08 09:03 | CASEMGMT ---
Addendum entered by Jnana Montano 01/08/23 15:49: [facility] declined patient due to patient needing a higher level of care than what their facility can provide. [facility] declined due to patient not meeting criteria for their inpatient unit. [facility] declined due to medical complexity. JOSE contacted [facility] to inquire about available beds, beds available, JOSE faxed referral. [facility] declined due to patient's medical complexity but explained if her ammonia levels were under 75 they could possibly review again. JOSE contacted [facility] to inquire about bed availability, beds available, JOSE faxed referral. JOSE contacted [facility] to inquire about a referral for patient. Admissions staff report their inpatient psych unit is closed to admissions due to covid outbreak and wouldn't be opened until Wednesday. SW contacted [facility] to discuss a referral for patient. Admissions staff report due to no documentation of mental health issues that would cause the hallucinations, patient's symptoms appear medical and would not be appropriate to admit. Plan: referral pending at [facility] Original Note: Social Work Note JOSE contacted [facility] to inquire about bed availability, beds available, JOSE faxing referral. JOSE contacted [facility] to inquire about bed availability, beds available, JOSE faxing referral. JOSE contacted [facility] at [facility] to inquire about bed availability, beds available and admissions staff report they would be able to comply with random drug screens as requested by JOSE PEACE faxing referral. Plan: referrals pending with [facility] and [facility] at [facility]
[2023-01-08 09:15] VITALS: BP 99/54; PULSE 70; RESP 18; TEMP 37.1; O2SAT 98
[2023-01-08] MEDS: Citalopram 40 MG TABLET PO (09:52)
[2023-01-08] MEDS: Lactulose 20 GM/30 ML UDC PO ×4 (09:52→21:12)
[2023-01-08] MEDS: Ursodiol 250 MG Tablet PO ×2 (09:53→21:11)
[2023-01-08] MEDS: rifAXIMin 550 MG Tablet PO ×2 (09:53→21:11)
[2023-01-08] MEDS: buPROPion (XL) 300 MG TABLET.XL PO (09:53)
[2023-01-08] MEDS: Azithromycin 250 MG Tablet 500 MG PO (09:53)
[2023-01-08] MEDS: Lidocaine 5% Patch 2 PATCH TOPICAL (09:53)
[2023-01-08] MEDS: Pantoprazole Sodium 40 MG Tablet PO ×2 (09:53→21:11)
[2023-01-08] MEDS: Nystatin Powder 15gm Bottle 1 APPLIC TOPICAL ×2 (09:54→21:12)
--- NOTE | 2023-01-08 09:58 | PN.HOSP_ITS ---
Subjective Subjective Continues to have subtly abnormal behavior Objective Data Objective Data Vital Signs: Vital Signs Temp Pulse Resp BP Pulse Ox O2 Del Method 98.6 F 72 18 126/54 H 95 Room Air 01/08/23 03:15 01/08/23 03:15 01/08/23 03:15 01/08/23 03:15 01/08/23 03:15 01/08/23 08:16 Oxygen Delivery Method Room Air Weight: 296 lb 1.293 oz Body Mass Index (BMI) 46.4 Intake & Output: Intake and Output for Last 24 Hours 01/07/23 01/08/23 01/09/23 03:59 03:59 03:59 Intake Total 182.75 / 182.75 920 / 920 Balance 182.75 / 182.75 920 / 920 Lab / Micro Data Result Diagrams: 01/07/23 07:00 01/07/23 08:15 Labs: Laboratory Results - last 24 hr 01/07/23 15:43: Ammonia 109.0 H Micro: Microbiology 01/05/23 11:15 Nasal Secretion SARS-CoV-2 Antigen (Rapid) - Final Physical Exam Narrative General: Alert, oriented, Cooperative, No apparent distress HEENT: Atraumatic, PERRLA, EOMI, Normocephalic Oral: Moist Mucosa Neck: Supple, No JVD Lungs: Diminished, Normal air movement, No rhonchi, No wheeze, No rales Cardiovascular: Regular rate, Regular Rhythm, Normal S1, Normal S2, No murmurs Abdomen: Soft, Non Tender, Non-Distended, No Hepato-splenomegaly Extremities: No edema, Capillary Refill Less than 3 Seconds Skin: No rashes, No breakdown Musculoskeletal: Right knee tenderness but does not limit her mobility Neurological: Moves all extremities, sensations intact Psych/Mental Status: Normal affect, has endorsed hallucinations of a cat, and there are reports of abnormal inappropriate behavior at night and hypersexual behavior Assessment & Plan Assessment/Plan (1) Acute hepatic encephalopathy: PLAN: Plan 1. Acute hepatic encephalopathy with hx alcoholic cirrhosis/decompensated alcoholic cirrhosis with portal hypertension and varices and gastropathy/thrombocytopenia ? She is continued on lactulose and rifaximin however she continues to demonstrate odd behavior ? She has been refused at [facility] secondary to an elevated ammonia which is an unreliable marker to gauge improvement in encephalopathy however they will not accept her until her ammonia is below an arbitrary level, currently at 109 started on azithromycin and Flagyl ? She continues to be medically clear for discharge however she is not safe for discharge home ? We will continue to with lactulose, Xifaxan, ursodiol ? We will place her on a PPI, she had an EGD on 01/06/2023 with gastritis ? Appreciate GIs assistance 2. Depression/anxiety/PTSD ? We will resume all of her home medications ? Continue with Seroquel 3. Morbid obesity ? Discussed lifestyle modifications DVT: SCDs Charges/Coding Visit Charges Inpatient E&M: 44398 Subs Hosp L2
[2023-01-08] MEDS: oxyCODONE 5 MG Tablet PO ×3 (10:02→23:39)
--- NOTE | 2023-01-08 13:50 | CASEMGMT ---
Social Work SW spoke with JOSE Saldivar to discussed psychiatric placement. JOSE then followed up with pt. Pt frustrated that placement has not been found at this point. JOSE informed pt that [facility] declined pt. Acceptance still pending at [facility]. JOSE Saldiv[facility] continues to work on placement. Emotional support provided to pt. JOSE will continue to work on psych placement. ADALBERTO العراقي
[2023-01-08 14:34] VITALS: BP 123/63; PULSE 71; RESP 18; TEMP 36.7; O2SAT 94
--- NOTE | 2023-01-08 18:52 | PCM.PROGNOTE ---
Subjective Subjective She continues to have inappropriate responses. However she is alert awake and oriented x3. Objective Data Objective Data Vital Signs: Vital Signs Temp Pulse Resp BP Pulse Ox O2 Del Method 98.1 F 71 18 123/63 H 94 Room Air 01/08/23 14:34 01/08/23 14:34 01/08/23 14:34 01/08/23 14:34 01/08/23 14:34 01/08/23 14:34 Oxygen Delivery Method Room Air Weight: 296 lb 1.293 oz Body Mass Index (BMI) 46.4 Intake & Output: Intake and Output for Last 24 Hours 01/06/23 01/07/23 01/08/23 23:59 23:59 23:59 Intake Total 182.75 / 182.75 920 / 920 1226 / 1226 Balance 182.75 / 182.75 920 / 920 1226 / 1226 Lab / Micro Data Result Diagrams: 01/07/23 07:00 01/07/23 08:15 Micro: Microbiology 01/05/23 11:15 Nasal Secretion SARS-CoV-2 Antigen (Rapid) - Final Physical Exam Narrative General: Alert, oriented, Cooperative, No apparent distress HEENT: Atraumatic, PERRLA, EOMI, Normocephalic Oral: Moist Mucosa Neck: Supple, No JVD Lungs: Diminished, Normal air movement, No rhonchi, No wheeze, No rales Cardiovascular: Regular rate, Regular Rhythm, Normal S1, Normal S2, No murmurs Abdomen: Soft, Non Tender, Non-Distended, No Hepato-splenomegaly Extremities: No edema, Capillary Refill Less than 3 Seconds Skin: No rashes, No breakdown Musculoskeletal: Right knee tenderness but does not limit her mobility Neurological: Moves all extremities, sensations intact Psych/Mental Status: Normal affect, has endorsed hallucinations of a cat, and there are reports of abnormal inappropriate behavior at night and hypersexual behavior Assessment & Plan Assessment/Plan (1) Acute hepatic encephalopathy: PLAN: Plan 52-year-old woman with history of alcoholic cirrhosis and hepatic encephalopathy was admitted with confusion. Currently she is awake and alert and oriented x3. Acute hepatic encephalopathy with hx alcoholic cirrhosis: . Her mental status is improved since admission but he still has fluctuating level of consciousness and sometimes inattention. On lactulose and Xifaxan, azithromycin and Flagyl. I would not rely on her ammonia level. Continue IV fluid for mild dehydration and hold Lasix and spironolactone. Continue Colleen. As per ED physician note, his brother Vaibhav Esposito made comment to outside facility ED physician that he cannot take care of her further. Decompensated alcoholic cirrhosis with portal hypertension, varices and gastropathy: Her upper endoscopy did not show any signs of varices. She does not need prophylaxis for varices at this time. #Thrombocytopenia -Secondary to her cirrhosis -Appears to be at baseline #History of depression, anxiety, PTSD -Continue Wellbutrin, citalopram, prazosin #Morbid obesity -BMI 45.8 -Complicates treatment, prognosis, outcomes -Recommend weight loss and lifestyle changes Charges/Coding Visit Charges Inpatient E&M: 32906 Subs Hosp L3
[2023-01-08 20:49] VITALS: BP 121/59; PULSE 63; RESP 20; TEMP 37.4; O2SAT 93
[2023-01-08] MEDS: Doxazosin 1 MG Tablet 2 MG PO (21:11)
[2023-01-08] MEDS: QUEtiapine 100 MG Tablet PO (21:11)
[2023-01-08] MEDS: Menthol/Lanolin/Calamine/Znox 113 GM Tube 1 APPLIC TOPICAL (21:12)
[2023-01-08] MEDS: MELATONIN 3 MG TABLET PO (23:40)
[2023-01-09] MEDS: metroNIDAZOLE 500 MG Tablet PO ×3 (04:15→21:37)
[2023-01-09 04:16] VITALS: BP 118/68; PULSE 69; RESP 18; TEMP 36.7; O2SAT 94
[2023-01-09] MEDS: Propranolol 10 MG Tablet 20 MG PO ×3 (04:17→21:35)
[2023-01-09 04:47] VITALS: BMI 45.8
[2023-01-09 07:45] LABS: Absolute Lymphocyte Count 0.83 X10^3/uL (0.83-4.51); Absolute Neutrophil Count 1.3 X10^3/uL (2.0-7.7); Basophil# 0.04 X10^3/uL; Basophil% 1.4 % (0-1); Eosinophil# 0.27 X10^3/uL; Eosinophils% 9.6 % (0-5); Hematocrit 37.9 % (37-47); Hemoglobin 12.4 g/dL (12.0-15.0); Lymphocyte # 0.83 X10^3/ul (0.83-4.51); Lymphocyte % 29.4 % (19-41); Mean Corp Hgb Conc 32.7 g/dL (32-36); Mean Corpuscular Volume 94.8 fL (81-99); Mean Platelet Vol. 10.4 fl (6.2-12.0); Monocyte# 0.41 X10^3/uL; Monocyte% 14.5 % (0-10); NRBC Flagged by Analyzer 0 % (0-5); Neutrophil # 1.27 X10^3/uL (2.7-7.7); Neutrophil % 45.1 % (47-70); POSITIVE COUNT YES; Platelet Count 73 K/mm3 (150-450); RBC Distribution Width CV 14.6 % (11.6-14.6); RBC Distribution Width SD 50.4 fl (35.1-43.9); White Blood Count 2.8 K/mm3 (4.4-11.0)
[2023-01-09 07:57] LABS: Anion Gap 6 (5-15); BUN 16 mg/dL (7-18); BUN/Creat Ratio 22.1 RATIO (10-20); Calcium,Total 8.8 mg/dL (8.5-10.1); Chloride 110 mmol/L (98-107); Creatinine, Serum 0.72 mg/dL (0.55-1.02); EST Glomerular Filtration Rate 89 mL/min (>60); Est Glom Filt Rate - Afr Amer 108 mL/min (>60); Estimated Creatinine Clearance 83.62 ml/min; Glucose 107 mg/dL (74-106); Potassium 4.4 mmol/L (3.5-5.1); Sodium Level 146 mmol/L (136-145)
[2023-01-09] MEDS: Lidocaine 5% Patch 2 PATCH TOPICAL (07:59)
[2023-01-09] MEDS: Menthol/Lanolin/Calamine/Znox 113 GM Tube 1 APPLIC TOPICAL ×2 (08:00→21:39)
[2023-01-09] MEDS: Nystatin Powder 15gm Bottle 1 APPLIC TOPICAL ×2 (08:01→21:39)
[2023-01-09] MEDS: Pantoprazole Sodium 40 MG Tablet PO ×2 (08:01→21:40)
[2023-01-09] MEDS: Lactulose 20 GM/30 ML UDC PO ×3 (08:02→17:43)
[2023-01-09] MEDS: Citalopram 40 MG TABLET PO (08:02)
[2023-01-09] MEDS: buPROPion (XL) 300 MG TABLET.XL PO (08:03)
[2023-01-09] MEDS: rifAXIMin 550 MG Tablet PO ×2 (08:03→21:37)
[2023-01-09] MEDS: Azithromycin 250 MG Tablet 500 MG PO (08:04)
[2023-01-09] MEDS: Ursodiol 250 MG Tablet PO ×2 (08:04→21:44)
[2023-01-09] MEDS: 0.9% Saline Lock 10 ML Syringe IV (08:05)
[2023-01-09] MEDS: oxyCODONE 5 MG Tablet PO ×3 (08:11→21:35)
--- NOTE | 2023-01-09 08:37 | CASEMGMT ---
Social Work SW called [facility], pt is denied as they state pt's symptoms are medical, not psychiatric. BETTY Velásquez
[2023-01-09 10:16] VITALS: BP 119/71; PULSE 56; RESP 16; TEMP 37.2; O2SAT 94
--- NOTE | 2023-01-09 13:56 | PN_ITS ---
Subjective Subjective Patient seen and examined. She had no complaints. Patient was upset because she says she still does not have anywhere to go since we have not been able to place.. Review of systems otherwise negative. She has remained hemodynamically stable. Objective Data Objective Data Vital Signs: Vital Signs Temp Pulse Resp BP Pulse Ox O2 Del Method 98.9 F 56 L 16 119/71 94 Room Air 01/09/23 10:16 01/09/23 10:16 01/09/23 10:16 01/09/23 10:16 01/09/23 10:16 01/09/23 10:16 Oxygen Delivery Method Room Air Weight: 292 lb 5.327 oz Body Mass Index (BMI) 45.8 Intake & Output: Intake and Output for Last 24 Hours 01/07/23 01/08/23 01/09/23 23:59 23:59 23:59 Intake Total 920 / 920 1526 / 1526 60 / 60 Balance 920 / 920 1526 / 1526 60 / 60 Lab / Micro Data Result Diagrams: 01/09/23 07:19 01/09/23 07:19 Labs: Laboratory Results - last 24 hr 01/09/23 07:19: WBC 2.8 L, RBC 4.00 L, Hgb 12.4, Hct 37.9, MCV 94.8, MCH 31.0, MCHC 32.7, RDW Std Deviation 50.4 H, RDW Coeff of Stephon 14.6, Plt Count 73 L, MPV 10.4, Immature Gran % (Auto) 0.000, Neut % (Auto) 45.1 L, Lymph % (Auto) 29.4, [place] % (Auto) 14.5 H, Eos % (Auto) 9.6 H, Baso % (Auto) 1.4 H, Absolute Neuts (auto) 1.3 L, Absolute Lymphs (auto) 0.83, Nucleated RBC % 0 01/09/23 07:19: Sodium 146 H, Potassium 4.4, Chloride 110 H, Carbon Dioxide 30.0, Anion Gap 6, BUN 16, Creatinine 0.72, Estim Creat Clear Calc 83.62, Est GFR (MDRD) Af Amer 108, Est GFR (MDRD) Non-Af 89, BUN/Creatinine Ratio 22.1 H, Glucose 107 H, Calcium 8.8 01/09/23 10:29: Ammonia 130.0 H Micro: Microbiology 01/05/23 11:15 Nasal Secretion SARS-CoV-2 Antigen (Rapid) - Final Physical Exam Const alert, oriented x3 and no apparent distress General Appearance: cooperative HEENT normocephalic, head/scalp atraumatic and moist oral mucous membranes Eyes PERRL and EOMs intact bilaterally Neck supple and no JVD Lymph Lymphatic: no lymphadenopathy noted and no lymphedema noted Resp normal respiratory effort, normal air movement and clear to auscultation bilaterally Cardio regular rate, regular rhythm, S1 normal heart sound, S2 normal heart sound and no murmurs GI normal to inspection, nondistended, normoactive bowel sounds, soft to palpation, non-tender and non-distended Extremity Extremity Narrative: 1+ bipedal edema Skin General Skin Exam: no breakdown Neuro CN's II-XII intact bilaterally, no focal motor deficits and no sensory deficits noted Psych thought process normal, cooperative and affect normal Appearance: appropriate Assessment & Plan Assessment/Plan (1) Iron deficiency anemia: (2) Acute hepatic encephalopathy: PLAN: Plan #Acute hepatic encephalopatahy due to alcoholic liver cirrhosis * on lactulose and rifaximin * ammonia level has remained elevated. * on azithromycin and flagyl * awaiting placement in geropsych unit * Ammonia is 130 today. * #Alcoholic liver cirrhosis with portal hypertension, varices and gastropathy * gastroenterology on board * on lactulose and rifaximin as above * had EGD on 01/06/2023 which showed gastritis * also on ursodiol * #Depression; on seroquel ad bupropion as well as celexa. Morbid obesity: complicates acute care, expected recovery and prognosis #Thrombocytopenia: Platelets down to 73 today. Chronically low. This likely due to alcohol use disorder. Will trend. #Leukopenia: WBC is down to 2.8 from 3.4. This likely also due to alcohol abuse. Will monitor and trend. DVT prophylaxis: SCDs Charges/Coding Visit Charges Inpatient E&M: 41806 Subs Hosp L2
--- NOTE | 2023-01-09 15:51 | PN_ITS ---
Subjective Subjective Patient seems to be alert, awake and oriented x3. She denies any abdominal pain or fatigue. She states that she would like to go back to her brothers but he would not allow her to go back. Objective Data Objective Data Vital Signs: Vital Signs Temp Pulse Resp BP Pulse Ox O2 Del Method 98.9 F 56 L 16 119/71 94 Room Air 01/09/23 10:16 01/09/23 10:16 01/09/23 10:16 01/09/23 10:16 01/09/23 10:16 01/09/23 14:00 Oxygen Delivery Method Room Air Weight: 292 lb 5.327 oz Body Mass Index (BMI) 45.8 Intake & Output: Intake and Output for Last 24 Hours 01/07/23 01/08/23 01/09/23 23:59 23:59 23:59 Intake Total 920 / 920 1526 / 1526 540 / 540 Balance 920 / 920 1526 / 1526 540 / 540 Lab / Micro Data Result Diagrams: 01/09/23 07:19 01/09/23 07:19 Labs: Laboratory Results - last 24 hr 01/09/23 07:19: WBC 2.8 L, RBC 4.00 L, Hgb 12.4, Hct 37.9, MCV 94.8, MCH 31.0, MCHC 32.7, RDW Std Deviation 50.4 H, RDW Coeff of Stephon 14.6, Plt Count 73 L, MPV 10.4, Immature Gran % (Auto) 0.000, Neut % (Auto) 45.1 L, Lymph % (Auto) 29.4, [place] % (Auto) 14.5 H, Eos % (Auto) 9.6 H, Baso % (Auto) 1.4 H, Absolute Neuts (auto) 1.3 L, Absolute Lymphs (auto) 0.83, Nucleated RBC % 0 01/09/23 07:19: Sodium 146 H, Potassium 4.4, Chloride 110 H, Carbon Dioxide 30.0, Anion Gap 6, BUN 16, Creatinine 0.72, Estim Creat Clear Calc 83.62, Est GFR (MDRD) Af Amer 108, Est GFR (MDRD) Non-Af 89, BUN/Creatinine Ratio 22.1 H, Glucose 107 H, Calcium 8.8 01/09/23 10:29: Ammonia 130.0 H Micro: Microbiology 01/05/23 11:15 Nasal Secretion SARS-CoV-2 Antigen (Rapid) - Final Physical Exam Const alert, oriented x3 and no apparent distress General Appearance: cooperative HEENT normocephalic, head/scalp atraumatic and moist oral mucous membranes Eyes PERRL and EOMs intact bilaterally Neck supple and no JVD Lymph Lymphatic: no lymphadenopathy noted and no lymphedema noted Resp normal respiratory effort, normal air movement and clear to auscultation bilaterally Cardio regular rate, regular rhythm, S1 normal heart sound, S2 normal heart sound and no murmurs GI normal to inspection, nondistended, normoactive bowel sounds, soft to palpation, non-tender and non-distended Extremity Extremity Narrative: 1+ bipedal edema Skin General Skin Exam: no breakdown Neuro CN's II-XII intact bilaterally, no focal motor deficits and no sensory deficits noted Psych thought process normal, cooperative and affect normal Appearance: appropriate Assessment & Plan Assessment/Plan (1) Acute hepatic encephalopathy: PLAN: Plan 52-year-old woman with history of alcoholic cirrhosis and hepatic encephalopathy was admitted with confusion. Currently she is awake and alert and oriented x3. Acute hepatic encephalopathy with hx alcoholic cirrhosis: . Her mental status is improved since admission but he still has fluctuating level of consciousness and sometimes inattention. Her ammonia level is up but her affect is the same as it was yesterday. On lactulose and Xifaxan, azithromycin and Flagyl. I would not rely on her ammonia level. Continue IV fluid for mild dehydration and hold Lasix and spironolactone. Continue Colleen. As per ED physician note, his brother Vaibhav Esposito made comment to outside facility ED physician that he cannot take care of her further. Decompensated alcoholic cirrhosis with portal hypertension, varices and gastropathy: Her upper endoscopy did not show any signs of varices. She does not need prophylaxis for varices at this time. #Thrombocytopenia -Secondary to her cirrhosis -Appears to be at baseline #History of depression, anxiety, PTSD -Continue Wellbutrin, citalopram, prazosin #Morbid obesity -BMI 45.8 -Complicates treatment, prognosis, outcomes -Recommend weight loss and lifestyle changes Charges/Coding Visit Charges Inpatient E&M: 09663 Subs Hosp L3
[2023-01-09 16:16] VITALS: BP 103/71; PULSE 57; RESP 16; TEMP 36.8; O2SAT 94
[2023-01-09 21:30] VITALS: BP 118/76; PULSE 65; RESP 18; TEMP 36.8; O2SAT 95
[2023-01-09] MEDS: MELATONIN 3 MG TABLET PO (21:35)
[2023-01-09] MEDS: QUEtiapine 100 MG Tablet PO (21:37)
[2023-01-09] MEDS: Doxazosin 1 MG Tablet 2 MG PO (21:38)
[2023-01-10 04:18] VITALS: BP 103/51; PULSE 54; RESP 16; TEMP 36.6; O2SAT 95
[2023-01-10 05:00] VITALS: BMI 46.1
[2023-01-10] MEDS: metroNIDAZOLE 500 MG Tablet PO ×3 (05:43→21:51)
[2023-01-10] MEDS: Lidocaine 5% Patch 2 PATCH TOPICAL (08:07)
[2023-01-10] MEDS: oxyCODONE 5 MG Tablet PO ×3 (08:07→21:54)
[2023-01-10] MEDS: Nystatin Powder 15gm Bottle 1 APPLIC TOPICAL ×2 (08:08→21:59)
[2023-01-10] MEDS: Menthol/Lanolin/Calamine/Znox 113 GM Tube 1 APPLIC TOPICAL ×2 (08:08→21:59)
[2023-01-10] MEDS: buPROPion (XL) 300 MG TABLET.XL PO (08:09)
[2023-01-10] MEDS: Lactulose 20 GM/30 ML UDC PO ×4 (08:09→21:52)
[2023-01-10] MEDS: rifAXIMin 550 MG Tablet PO ×2 (08:10→21:51)
[2023-01-10] MEDS: Pantoprazole Sodium 40 MG Tablet PO ×2 (08:10→21:51)
[2023-01-10] MEDS: Citalopram 40 MG TABLET PO (08:10)
[2023-01-10] MEDS: Ursodiol 250 MG Tablet PO ×2 (08:11→21:51)
[2023-01-10] MEDS: Azithromycin 250 MG Tablet 500 MG PO (08:11)
[2023-01-10] MEDS: 0.9% Saline Lock 10 ML Syringe IV (08:12)
[2023-01-10 10:00] VITALS: BP 100/61; PULSE 58; RESP 18; TEMP 37.2; O2SAT 95
--- NOTE | 2023-01-10 10:44 | PN_ITS ---
Subjective Subjective Patient seen and examined. She had no complaints this morning. She is still anxious about the fact that she cannot get placement. Review of systems otherwise negative. Her ammonia was rechecked yesterday and it remained elevated at 130. Objective Data Objective Data Vital Signs: Vital Signs Temp Pulse Resp BP Pulse Ox O2 Del Method 98.9 F 58 L 18 100/61 95 Room Air 01/10/23 10:00 01/10/23 10:00 01/10/23 10:00 01/10/23 10:00 01/10/23 10:00 01/10/23 10:00 Oxygen Delivery Method Room Air Weight: 294 lb 1.546 oz Body Mass Index (BMI) 46.1 Intake & Output: Intake and Output for Last 24 Hours 01/08/23 01/09/23 01/10/23 23:59 23:59 23:59 Intake Total 1526 / 1526 1020 / 1020 Balance 1526 / 1526 1020 / 1020 Lab / Micro Data Result Diagrams: 01/09/23 07:19 01/09/23 07:19 Labs: Laboratory Results - last 24 hr 01/09/23 10:29: Ammonia 130.0 H Micro: Microbiology 01/05/23 11:15 Nasal Secretion SARS-CoV-2 Antigen (Rapid) - Final Physical Exam Const alert, oriented x3 and no apparent distress General Appearance: cooperative HEENT normocephalic, head/scalp atraumatic and moist oral mucous membranes Eyes PERRL and EOMs intact bilaterally Neck supple and no JVD Lymph Lymphatic: no lymphadenopathy noted and no lymphedema noted Resp normal respiratory effort, normal air movement and clear to auscultation bilaterally Cardio regular rate, regular rhythm, S1 normal heart sound, S2 normal heart sound and no murmurs GI normal to inspection, nondistended, normoactive bowel sounds, soft to palpation, non-tender and non-distended Extremity Extremity Narrative: 1+ bipedal edema Skin General Skin Exam: no breakdown Neuro CN's II-XII intact bilaterally, no focal motor deficits and no sensory deficits noted Psych thought process normal, cooperative and affect normal Appearance: appropriate Assessment & Plan Assessment/Plan (1) Iron deficiency anemia: (2) Acute hepatic encephalopathy: PLAN: Plan #Acute hepatic encephalopatahy due to alcoholic liver cirrhosis * on lactulose and rifaximin * ammonia level has remained elevated and was 130 yesterday * on azithromycin and flagyl * #Alcoholic liver cirrhosis with portal hypertension, varices and gastropathy * gastroenterology on board * on lactulose and rifaximin as above * had EGD on 01/06/2023 which showed gastritis * also on ursodiol * #Depression; on seroquel ad bupropion as well as celexa. Morbid obesity: complicates acute care, expected recovery and prognosis #Thrombocytopenia: platelets are chronically low. Will monitor #Leukopenia: will monitor wbc. DVT prophylaxis: SCDs Disposition: Awaiting placement. Charges/Coding Visit Charges Inpatient E&M: 92658 Subs Hosp L2
[2023-01-10] MEDS: Propranolol 10 MG Tablet 20 MG PO ×2 (13:09→21:50)
[2023-01-10 16:00] VITALS: BP 104/63; PULSE 61; RESP 16; TEMP 36.9; O2SAT 96
[2023-01-10] MEDS: MELATONIN 3 MG TABLET PO (21:50)
[2023-01-10] MEDS: Doxazosin 1 MG Tablet 2 MG PO (21:50)
[2023-01-10] MEDS: QUEtiapine 100 MG Tablet PO (21:52)
[2023-01-10 22:00] VITALS: BP 124/60; PULSE 66; RESP 16; TEMP 36.9; O2SAT 98
[2023-01-11 06:00] VITALS: BP 105/57; PULSE 56; RESP 18; TEMP 36.4; O2SAT 94
[2023-01-11] MEDS: metroNIDAZOLE 500 MG Tablet PO ×3 (06:15→21:37)
--- NOTE | 2023-01-11 07:59 | CT_ITS ---
INDICATION: cirrhosis and persistent hyperammonemia EXAMINATION: CT ABDOMEN AND PELVIS WITH CONTRAST - CT Abdomen And Pelvis W/ Contrast Injection TECHNIQUE: Helically acquired images were obtained of the abdomen and pelvis following IV contrast. A radiation dose optimization technique was used for this scan. IV Contrast dosage and agent: 100 cc of Isovue-300 Oral contrast: None. COMPARISON: Ultrasound dated November 20, 2022 FINDINGS: LOWER CHEST: Lung bases are clear. No cardiomegaly or pericardial effusion. LIVER: The liver has a cirrhotic morphology. There is recanalization of the umbilical vein. There is no discrete hepatic lesion visualized. GALLBLADDER AND BILIARY TREE: There are surgical clips within the gallbladder fossa consistent with prior cholecystectomy. No intra- or extrahepatic biliary ductal dilation. PANCREAS: No focal cystic or solid mass. SPLEEN: There is splenomegaly. ADRENAL GLANDS: No nodules. KIDNEYS AND URETERS: There is a too small to characterize low-attenuation focus arising from the left kidney suggestive of a cyst. No hydronephrosis. PERITONEUM: There are varicosities within the upper abdomen and pelvis, more pronounced on the left side. No ascites or free air. No other fluid collection. BOWEL: There is a moderate size hiatal hernia. No evidence of acute appendicitis. No stomach or bowel distension. There is a moderate amount of stool throughout the colon. No focal inflammatory change. LYMPH NODES: No enlarged mesenteric or retroperitoneal lymph nodes. VESSELS: Aorta is non-dilated. There are scattered peripheral calcifications of the abdominal aorta consistent with atherosclerosis. URINARY BLADDER: Unremarkable. REPRODUCTIVE ORGANS: No pelvic masses. ABDOMINAL WALL: There is a small fat-containing umbilical hernia. There is subcutaneous edema within the anterior abdominal wall. BONES: No lytic or blastic abnormality. CT/Abdomen/Pelvis W IV Cont ONLY IMPRESSION: Cirrhotic liver with findings consistent with portal hypertension including splenomegaly and abdominal varices. Hiatal hernia. Atherosclerosis. Electronically Signed: Acacia Ignacio MD at 11:09 EDT ,
[2023-01-11] MEDS: Pantoprazole Sodium 40 MG Tablet PO ×2 (09:13→21:38)
[2023-01-11] MEDS: Lactulose 20 GM/30 ML UDC PO ×4 (09:13→21:37)
[2023-01-11] MEDS: buPROPion (XL) 300 MG TABLET.XL PO (09:13)
[2023-01-11] MEDS: Ursodiol 250 MG Tablet PO ×2 (09:13→21:38)
[2023-01-11] MEDS: Azithromycin 250 MG Tablet 500 MG PO (09:14)
[2023-01-11] MEDS: Lidocaine 5% Patch 2 PATCH TOPICAL (09:14)
[2023-01-11] MEDS: rifAXIMin 550 MG Tablet PO ×2 (09:14→21:39)
[2023-01-11] MEDS: Citalopram 40 MG TABLET PO (09:14)
[2023-01-11] MEDS: oxyCODONE 5 MG Tablet PO ×3 (09:14→21:39)
[2023-01-11] MEDS: Menthol/Lanolin/Calamine/Znox 113 GM Tube 1 APPLIC TOPICAL ×2 (09:48→21:37)
[2023-01-11] MEDS: Nystatin Powder 15gm Bottle 1 APPLIC TOPICAL ×2 (09:49→21:38)
[2023-01-11 10:42] VITALS: BP 110/60; PULSE 60; RESP 16; TEMP 36.7; O2SAT 96
--- NOTE | 2023-01-11 11:00 | CASEMGMT ---
Social Work Note SW returned phone call to patient's therapist, Elis, and provided her with an update regarding patient's placement. SW explained the current plan is patient will be going back to her brother's home with [facility] as she was declined for psych placement. RNCM and floor SW will continue to assist with discharge planning. Elis voiced understanding and will contact patient to schedule a session. Janna Montano PUBLICATIONS WRITER, DIANELYS
--- NOTE | 2023-01-11 11:13 | PN_ITS ---
Subjective Subjective Patient seen and examined. She had no complaints today. She now tells me that since she has not been hallucinating, her brother states he is okay with her going back to his house if she is able to get some help. He had an uneventful night and review of systems otherwise negative. Objective Data Objective Data Vital Signs: Vital Signs Temp Pulse Resp BP Pulse Ox O2 Del Method 98.0 F 60 16 110/60 96 Room Air 01/11/23 10:42 01/11/23 10:42 01/11/23 10:42 01/11/23 10:42 01/11/23 10:42 01/11/23 10:43 Oxygen Delivery Method Room Air Weight: 294 lb 1.546 oz Body Mass Index (BMI) 46.1 Intake & Output: Intake and Output for Last 24 Hours 01/09/23 01/10/23 01/11/23 23:59 23:59 23:59 Intake Total 1020 / 1020 750 / 750 240 / 240 Balance 1020 / 1020 750 / 750 240 / 240 Lab / Micro Data Result Diagrams: 01/09/23 07:19 01/09/23 07:19 Micro: Microbiology 01/05/23 11:15 Nasal Secretion SARS-CoV-2 Antigen (Rapid) - Final Radiography Diagnostic Testing: Radiology Impression Abdomen/Pelvis CT 01/11/23 07:59 IMPRESSION: Cirrhotic liver with findings consistent with portal hypertension including splenomegaly and abdominal varices. Hiatal hernia. Atherosclerosis. Electronically Signed: Acacia Ignacio MD at 11:09 EDT , Physical Exam Const alert, oriented x3 and no apparent distress General Appearance: cooperative HEENT normocephalic, head/scalp atraumatic and moist oral mucous membranes Eyes PERRL and EOMs intact bilaterally Neck supple and no JVD Lymph Lymphatic: no lymphadenopathy noted and no lymphedema noted Resp normal respiratory effort, normal air movement and clear to auscultation bilaterally Cardio regular rate, regular rhythm, S1 normal heart sound, S2 normal heart sound and no murmurs GI normal to inspection, nondistended, normoactive bowel sounds, soft to palpation, non-tender and non-distended Extremity Extremity Narrative: 1+ bipedal edema Skin General Skin Exam: no breakdown Neuro CN's II-XII intact bilaterally, no focal motor deficits and no sensory deficits noted Psych thought process normal, cooperative and affect normal Appearance: appropriate Assessment & Plan Assessment/Plan (1) Iron deficiency anemia: (2) Acute hepatic encephalopathy: PLAN: Plan #Acute hepatic encephalopatahy due to alcoholic liver cirrhosis * on lactulose and rifaximin * ammonia level has remained elevated, though she has remained cognitively intact. * on azithromycin and flagyl * #Alcoholic liver cirrhosis with portal hypertension, varices and gastropathy * gastroenterology on board * on lactulose and rifaximin as above * had EGD on 01/06/2023 which showed gastritis * also on ursodiol * #Depression; on seroquel and bupropion as well as celexa. Morbid obesity: complicates acute care, expected recovery and prognosis #Thrombocytopenia: platelets are chronically low. Will monitor #Leukopenia: Stable. DVT prophylaxis: SCDs Disposition: Nausea several days with him to take her home if she is able to help so help of home. Case management on board to help with discharge planning. Charges/Coding Visit Charges Inpatient E&M: 43845 Subs Hosp L2
[2023-01-11 13:28] LABS: CPK Total, Creatine Kinase 52 U/L (26-192)
[2023-01-11] MEDS: Propranolol 10 MG Tablet 20 MG PO ×2 (13:48→21:37)
[2023-01-11 14:37] LABS: Amphetamine Urine VISTA NEGATIVE (<1000 ng/mL); Barbiturate Urine VISTA NEGATIVE (< 200 ng/mL); Benzodiazepine Urine VISTA NEGATIVE (< 200 ng/mL); Cocaine Urine VISTA NEGATIVE (< 300 ng/mL); Ecstacy Urine VISTA POSITIVE (< 500 ng/mL); Methadone Urine VISTA NEGATIVE (< 300 ng/mL); PCP Urine VISTA NEGATIVE (< 25 ng/mL); THC Urine VISTA NEGATIVE (< 50 ng/mL); Vista UDS pH Range 6
--- NOTE | 2023-01-11 14:56 | CASEMGMT ---
BECKA JESSICA: Face to face with pt this AM at bedside to discuss discharge plan. Pt states that her brother will allow her to come back to his home but she cannot be left alone while he is at work. Reviewed current options including resumption of home health and discussed that this option would provide only intermittent assistance and not continuous as her brother was requesting. Pt states she was receiving one nurse visit a week from [facility]. Pt provided this RN CM with permission to contact her brother to discuss her discharge plan. Call placed to Sonny at [employer] [facility] regarding pt's application for services. Voicemail left requesting a return call. Call placed to pt's brother Vaibhav. Vaibhav states that he is single, has his daughter every other weekend and does not have any other family or friends who could stay with pt while he is at work. Vaibhav states he leaves for work around 0430 and returns around 1900. States he has a younger brother but he has seizures and has been staying away from the home with a S.O. Vaibhav expressed concern with pt returning home and becoming confused and potentially going out onto [address]. Discussed home waiver application and possible assistance but that this process takes time and would be dependent on what is approved and staffing being available. Discussed the possibility of adult day care also. Vaibhav expressed frustration that he took pt in to help and is not burdened with her care needs in addition to his mother being in a ECF and his aunt's . Will follow-up with the waiver application for timeline of services and any additional assistance that might be available. Call received from Sonny who confirmed that pt's waiver application was received on 01/01 and is now with [facility] for next steps. Call placed to [facility] and per Kendell, pt's application is in the cue for an in-home assessment to be completed. This RN CM spoke with Teofilo with [facility] who states pt should receive a call tomorrow to schedule an in-home assessment to determine pt's care needs. Teofilo states adult day care may be an option if pt qualifies. Pt's assessment is due by 02/04 and cannot be moved up in front of other applicants. Will communicate this time line to pt and pt's brother Vaibhav for next steps. Verónica Hooks RN CM
--- NOTE | 2023-01-11 15:43 | PCM.PROGNOTE ---
Subjective Subjective She has been up and out of bed and walking around. She is alert awake oriented x3. She says that she has not been having any hallucinations. Objective Data Objective Data Vital Signs: Vital Signs Temp Pulse Resp BP Pulse Ox O2 Del Method 98.0 F 60 16 110/60 96 Room Air 01/11/23 10:42 01/11/23 10:42 01/11/23 10:42 01/11/23 10:42 01/11/23 10:42 01/11/23 10:43 Oxygen Delivery Method Room Air Weight: 294 lb 1.546 oz Body Mass Index (BMI) 46.1 Intake & Output: Intake and Output for Last 24 Hours 01/09/23 01/10/23 01/11/23 23:59 23:59 23:59 Intake Total 1020 / 1020 750 / 750 902 / 902 Balance 1020 / 1020 750 / 750 902 / 902 Lab / Micro Data Result Diagrams: 01/09/23 07:19 01/09/23 07:19 Labs: Laboratory Results - last 24 hr 01/11/23 12:20: Total Creatine Kinase 52 01/11/23 14:15: Urine Opiates Screen NEGATIVE, Urine Methadone Screen NEGATIVE, Ur Barbiturates Screen NEGATIVE, Ur Phencyclidine Scrn NEGATIVE, Ur Amphetamines Screen NEGATIVE, MDMA (Ecstasy) Screen POSITIVE H, U Benzodiazepines Scrn NEGATIVE, Urine Cocaine Screen NEGATIVE, U Cannabinoids Screen NEGATIVE, Ur Drug Screen Comment Micro: Microbiology 01/05/23 11:15 Nasal Secretion SARS-CoV-2 Antigen (Rapid) - Final Radiography Diagnostic Testing: Radiology Impression Abdomen/Pelvis CT 01/11/23 07:59 IMPRESSION: Cirrhotic liver with findings consistent with portal hypertension including splenomegaly and abdominal varices. Hiatal hernia. Atherosclerosis. Electronically Signed: Acacia Ignacio MD at 11:09 EDT , Physical Exam Const alert, oriented x3 and no apparent distress General Appearance: cooperative HEENT normocephalic, head/scalp atraumatic and moist oral mucous membranes Eyes PERRL and EOMs intact bilaterally Neck supple and no JVD Lymph Lymphatic: no lymphadenopathy noted and no lymphedema noted Resp normal respiratory effort, normal air movement and clear to auscultation bilaterally Cardio regular rate, regular rhythm, S1 normal heart sound, S2 normal heart sound and no murmurs GI normal to inspection, nondistended, normoactive bowel sounds, soft to palpation, non-tender and non-distended Extremity Extremity Narrative: 1+ bipedal edema Skin General Skin Exam: no breakdown Neuro CN's II-XII intact bilaterally, no focal motor deficits and no sensory deficits noted Psych thought process normal, cooperative and affect normal Appearance: appropriate Assessment & Plan Assessment/Plan (1) Acute hepatic encephalopathy: PLAN: Plan 52-year-old woman with history of alcoholic cirrhosis and hepatic encephalopathy was admitted with confusion. Currently she is awake and alert and oriented x3. Acute hepatic encephalopathy with hx alcoholic cirrhosis: . Her mental status is improved since admission but he still has fluctuating level of consciousness and sometimes inattention. Her ammonia level is up but her affect is the same as it was yesterday. On lactulose and Xifaxan, azithromycin and Flagyl. I would not rely on her ammonia level. Continue IV fluid for mild dehydration and hold Lasix and spironolactone. Continue Colleen. Her ammonia level has been persistently higher. I ordered a CT scan of the abdomen pelvis to look for any signs of Systemic shunts that may be contributing to her hyperammonia anemia. I also tin a serum and urine amino acids to see if there is any signs of hyperammonemia secondary to urea cycle deficiency. I cannot see any medications that she is on that may be associated with hyperammonia anemia without confusion. Continue current recommendations Noncompensated alcoholic cirrhosis with a child Gonzalez score a and meld of 8 complicated by with portal hypertension, varices and gastropathy: Her upper endoscopy did not show any signs of varices. She does not need prophylaxis for varices at this time. #Thrombocytopenia -Secondary to her cirrhosis -Appears to be at baseline #History of depression, anxiety, PTSD -Continue Wellbutrin, citalopram, prazosin #Morbid obesity -BMI 45.8 -Complicates treatment, prognosis, outcomes -Recommend weight loss and lifestyle changes Charges/Coding Visit Charges Inpatient E&M: 84059 Subs Hosp L3
[2023-01-11 15:59] VITALS: BP 121/60; PULSE 58; RESP 16; TEMP 36.8; O2SAT 95
[2023-01-11 18:27] LABS: Blood Gas Specimen Type VEN; O2 Delivery Device RA; VBG pCO2 46.6 mmHg (41-51)
[2023-01-11 18:28] LABS: VBG BASE EXCESS 4 mmol/L (-1.0-3.5); VBG Bicarbonate 29 mmol/L (22-26); VBG PO2 179 mmHg (25-40); VBG SO2 100 % (50-70); VBG TCO2 30 mmol/L (23-33)
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
[2023-01-11 21:26] VITALS: BP 137/85; PULSE 62; RESP 18; TEMP 36.6; O2SAT 97
[2023-01-11] MEDS: Doxazosin 1 MG Tablet 2 MG PO (21:37)
[2023-01-11] MEDS: QUEtiapine 100 MG Tablet PO (21:38)
[2023-01-11] MEDS: MELATONIN 3 MG TABLET PO (21:39)
[2023-01-12] VITALS: BMI 46.4
[2023-01-12 04:28] VITALS: BP 122/72; PULSE 60; RESP 15; TEMP 36.8; O2SAT 93
[2023-01-12] MEDS: metroNIDAZOLE 500 MG Tablet PO ×3 (04:39→20:35)
[2023-01-12] MEDS: oxyCODONE 5 MG Tablet PO ×3 (04:39→17:51)
[2023-01-12] MEDS: Propranolol 10 MG Tablet 20 MG PO ×2 (04:39→14:01)
[2023-01-12 09:27] VITALS: BP 96/53; PULSE 63; RESP 18; TEMP 36.7; O2SAT 95
[2023-01-12] MEDS: Lactulose 20 GM/30 ML UDC PO ×4 (09:31→20:34)
[2023-01-12] MEDS: Menthol/Lanolin/Calamine/Znox 113 GM Tube 1 APPLIC TOPICAL (09:31)
[2023-01-12] MEDS: Azithromycin 250 MG Tablet 500 MG PO (09:31)
[2023-01-12] MEDS: buPROPion (XL) 300 MG TABLET.XL PO (09:31)
[2023-01-12] MEDS: Citalopram 40 MG TABLET PO (09:31)
[2023-01-12] MEDS: rifAXIMin 550 MG Tablet PO ×2 (09:32→20:34)
[2023-01-12] MEDS: Pantoprazole Sodium 40 MG Tablet PO ×2 (09:32→20:34)
[2023-01-12] MEDS: Ursodiol 250 MG Tablet PO ×2 (09:32→20:34)
--- NOTE | 2023-01-12 09:34 | CASEMGMT ---
BECKA CM: Medical record documents including face sheet, H&P, 01.11.23 progress notes, and MAR sent confidentially to [facility] per her request and continuity of care for pt's waiver application process. Verónica Hooks RN CM
[2023-01-12] MEDS: Nystatin Powder 15gm Bottle 1 APPLIC TOPICAL (09:35)
--- NOTE | 2023-01-12 09:35 | CASEMGMT ---
Social Work SW met with pt to verify AD. Pt does not have HCPOA/LW. ADALBERTO Hernandez
--- NOTE | 2023-01-12 10:53 | PN_ITS ---
Subjective Subjective Patient seen and examined. She had no complaints and had an uneventful night. Review of systems is otherwise negative. Objective Data Objective Data Vital Signs: Vital Signs Temp Pulse Resp BP Pulse Ox O2 Del Method 98.0 F 63 18 96/53 L 95 Room Air 01/12/23 09:27 01/12/23 09:27 01/12/23 09:27 01/12/23 09:27 01/12/23 09:27 01/12/23 09:27 Oxygen Delivery Method Room Air Weight: 295 lb 13.765 oz Body Mass Index (BMI) 46.4 Intake & Output: Intake and Output for Last 24 Hours 01/10/23 01/11/23 01/12/23 23:59 23:59 23:59 Intake Total 750 / 750 1182 / 1300 358 / 358 Balance 750 / 750 1182 / 1300 358 / 358 Lab / Micro Data Result Diagrams: 01/09/23 07:19 01/09/23 07:19 Labs: Laboratory Results - last 24 hr 01/11/23 12:20: Total Creatine Kinase 52 01/11/23 14:15: Urine Opiates Screen NEGATIVE, Urine Methadone Screen NEGATIVE, Ur Barbiturates Screen NEGATIVE, Ur Phencyclidine Scrn NEGATIVE, Ur Amphetamines Screen NEGATIVE, MDMA (Ecstasy) Screen POSITIVE H, U Benzodiazepines Scrn NEGATIVE, Urine Cocaine Screen NEGATIVE, U Cannabinoids Screen NEGATIVE, Ur Drug Screen Comment Micro: Microbiology 01/05/23 11:15 Nasal Secretion SARS-CoV-2 Antigen (Rapid) - Final ABG Data ABG results: ABG 01/11/23 17:08 Specimen Type CHRISTOFER Sample Site N/A VBG pH 7.40 VBG pO2 179 H VBG HCO3 29 H VBG Total CO2 30 VBG O2 Sat (Calc) 100 H VBG Base Excess 4 H POC Mix VBG pCO2 Pt Tmp 46.6 O2 Delivery Device RA Radiography Diagnostic Testing: Radiology Impression Abdomen/Pelvis CT 01/11/23 07:59 IMPRESSION: Cirrhotic liver with findings consistent with portal hypertension including splenomegaly and abdominal varices. Hiatal hernia. Atherosclerosis. Electronically Signed: Acacia Ignacio MD at 11:09 EDT , Physical Exam Const alert, oriented x3 and no apparent distress General Appearance: cooperative HEENT normocephalic, head/scalp atraumatic and moist oral mucous membranes Eyes PERRL and EOMs intact bilaterally Neck supple and no JVD Lymph Lymphatic: no lymphadenopathy noted and no lymphedema noted Resp normal respiratory effort, normal air movement and clear to auscultation bilaterally Cardio regular rate, regular rhythm, S1 normal heart sound, S2 normal heart sound and no murmurs GI normal to inspection, nondistended, normoactive bowel sounds, soft to palpation, non-tender and non-distended Extremity Extremity Narrative: 1+ bipedal edema Skin General Skin Exam: no breakdown Neuro CN's II-XII intact bilaterally, no focal motor deficits and no sensory deficits noted Psych thought process normal, cooperative and affect normal Appearance: appropriate Assessment & Plan Assessment/Plan (1) Iron deficiency anemia: (2) Acute hepatic encephalopathy: PLAN: Plan #Acute hepatic encephalopatahy due to alcoholic liver cirrhosis * on lactulose and rifaximin * ammonia level has remained elevated, though she has remained cognitively intact. * on azithromycin and flagyl * #Alcoholic liver cirrhosis with portal hypertension, varices and gastropathy * gastroenterology on board * on lactulose and rifaximin as above * had EGD on 01/06/2023 which showed gastritis * also on ursodiol * #Depression; on seroquel and bupropion as well as celexa. Morbid obesity: complicates acute care, expected recovery and prognosis #Thrombocytopenia: platelets are chronically low. Will monitor #Leukopenia: Stable. DVT prophylaxis: SCDs Disposition: * still awaiting discharge as brother says he wont take her back in to his home unless she had someone stay with her whilst he was at work. * She has also been denied placement in several psych facilities o/a of her persistently elevated ammonia level Charges/Coding Visit Charges Inpatient E&M: 66377 Subs Hosp L2
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
[2023-01-12 11:36] VITALS: BP 122/71; PULSE 62
--- NOTE | 2023-01-12 12:15 | CASEMGMT ---
Addendum entered by Elena Wu 01/12/23 14:57: JOSE faxed H&P, FaceSheet, Recent progress notes and current med list to [facility] for review and to assist in staff making determination on being able to accept pt. Will await application and review/assit pt in completing this document tomorrow. Addendum entered by Elena Wu 01/12/23 14:26: SW in to speak to pt and discuss option of [facility]. Pt voiced frustration and feelings of being overwhelmed and some mild anxiety. SW offered emotional support and reviewed coping skills with pt. Pt was receptive to this and shared would use coping skills of walking and watching TV. Pt listened as SW explained [facility] and pt stated would be open to this plan if can be accepted there. SW explained nothing is promised and it would be a process of being accepted if the staff there feel pt is a good fit. Pt voiced understanding, stated I'll tr not to get my hopes up but that's not likely. JOSE explained the application process and that the information is to be faxed here this evening. SW explained will revisit with pt tomorrow when the application arrives via fax. Pt voiced understanding. Addendum entered by lEena Wu 01/12/23 14:05: Upon review of pt case with Priya, it was suggested to contact [facility] to inquire about open beds. JOSE called and spoke to Rosa Elena Drew- the house superintendent there. Rosa Elena explained there are some open beds available for residents that are more independent and would need less supervision. JOSE gave brief background information for pt and explained pt is waiting for PASSPORT services and AL waiver through [facility]. Rosa Elena informed there is an application process and that the staff would want some past medical history and basic demographic information for pt to review in order to make a determination on acceptance. JOSE provided fax number and Rosa Elena shared intent to fax over a [facility] application. JOSE also obtained the fax for Rosa Elena and will send requested information following permission from pt. Original Note: Social Work RN CM spoke to JOSE regarding pt concerns for safety in the home and possibility of pt going to SNF for safe. JOSE explained pt not appropriate to go to SNF for skilled level of care. Only other possibility for SNF placement would be with LOC and assistance with ADL's. JOSE called lead JOSEPriya, to review and discuss appropriateness of a LOC for pt. Left message. Will await call back for discussion. ADALBERTO Hernandez
--- NOTE | 2023-01-12 12:45 | PCM.PROGNOTE ---
Subjective Subjective Patient is still awaiting placement. She is alert , awake and oriented x3. She says she feels about the same. She denies any jaundice, chest pain, shortness of breath, nausea, fever or chills. Objective Data Objective Data Vital Signs: Vital Signs Temp Pulse Resp BP Pulse Ox O2 Del Method 98.0 F 62 18 122/71 H 95 Room Air 01/12/23 09:27 01/12/23 11:36 01/12/23 09:27 01/12/23 11:36 01/12/23 09:27 01/12/23 09:27 Oxygen Delivery Method Room Air Weight: 295 lb 13.765 oz Body Mass Index (BMI) 46.4 Intake & Output: Intake and Output for Last 24 Hours 01/10/23 01/11/23 01/12/23 23:59 23:59 23:59 Intake Total 750 / 750 1182 / 1300 418 / 418 Balance 750 / 750 1182 / 1300 418 / 418 Lab / Micro Data Result Diagrams: 01/09/23 07:19 01/09/23 07:19 Labs: Laboratory Results - last 24 hr 01/11/23 12:20: Total Creatine Kinase 52 01/11/23 14:15: Urine Opiates Screen NEGATIVE, Urine Methadone Screen NEGATIVE, Ur Barbiturates Screen NEGATIVE, Ur Phencyclidine Scrn NEGATIVE, Ur Amphetamines Screen NEGATIVE, MDMA (Ecstasy) Screen POSITIVE H, U Benzodiazepines Scrn NEGATIVE, Urine Cocaine Screen NEGATIVE, U Cannabinoids Screen NEGATIVE, Ur Drug Screen Comment Micro: Microbiology 01/05/23 11:15 Nasal Secretion SARS-CoV-2 Antigen (Rapid) - Final ABG Data ABG results: ABG 01/11/23 17:08 Specimen Type CHRISTOFER Sample Site N/A VBG pH 7.40 VBG pO2 179 H VBG HCO3 29 H VBG Total CO2 30 VBG O2 Sat (Calc) 100 H VBG Base Excess 4 H POC Mix VBG pCO2 Pt Tmp 46.6 O2 Delivery Device RA Physical Exam Const alert, oriented x3 and no apparent distress General Appearance: cooperative HEENT normocephalic, head/scalp atraumatic and moist oral mucous membranes Eyes PERRL and EOMs intact bilaterally Neck supple and no JVD Lymph Lymphatic: no lymphadenopathy noted and no lymphedema noted Resp normal respiratory effort, normal air movement and clear to auscultation bilaterally Cardio regular rate, regular rhythm, S1 normal heart sound, S2 normal heart sound and no murmurs GI normal to inspection, nondistended, normoactive bowel sounds, soft to palpation, non-tender and non-distended Extremity Extremity Narrative: 1+ bipedal edema Skin General Skin Exam: no breakdown Neuro CN's II-XII intact bilaterally, no focal motor deficits and no sensory deficits noted Psych thought process normal, cooperative and affect normal Appearance: appropriate Assessment & Plan Assessment/Plan (1) Acute hepatic encephalopathy: PLAN: Plan 52-year-old woman with history of alcoholic cirrhosis and hepatic encephalopathy was admitted with confusion. Currently she is awake and alert and oriented x3. Acute hepatic encephalopathy with hx alcoholic cirrhosis: . Her mental status is improved since admission but he still has fluctuating level of consciousness and sometimes inattention. Her ammonia level is up but her affect is the same as it was yesterday. On lactulose and Xifaxan, azithromycin and Flagyl. I would not rely on her ammonia level. Continue IV fluid for mild dehydration and hold Lasix and spironolactone. Continue Colleen. Her ammonia level has been persistently higher. I ordered a CT scan of the abdomen pelvis to look for any signs of Systemic shunts that may be contributing to her hyperammonia anemia. I also tin a serum and urine amino acids to see if there is any signs of hyperammonemia secondary to urea cycle deficiency. Continue current recommendations. Work-up in progress regarding refractory hyperammonemia in the setting of no portosystemic shunts causing elevated hyperammonemia. Noncompensated alcoholic cirrhosis with a child Gonzalez score a and meld of 8 complicated by with portal hypertension, varices and gastropathy: Her upper endoscopy did not show any signs of varices. She does not need prophylaxis for varices at this time. #Thrombocytopenia -Secondary to her cirrhosis -Appears to be at baseline #History of depression, anxiety, PTSD -Continue Wellbutrin, citalopram, prazosin #Morbid obesity -BMI 45.8 -Complicates treatment, prognosis, outcomes -Recommend weight loss and lifestyle changes Charges/Coding Visit Charges Inpatient E&M: 42707 Subs Hosp L3
[2023-01-12 13:59] VITALS: BP 123/62; PULSE 63; RESP 18; TEMP 36.9; O2SAT 93
--- NOTE | 2023-01-12 15:14 | CASEMGMT ---
RN CM: Call received from ARACELY Conway with [employer]. Discussed discharge needs of pt and challenges as well as the list of inpt psych facilities that were tried. Zoraida states she will research for additional options also and reach out to this RN CM with any possible suggestions. Zoraida can be reached at [phone]. Verónica Hooks RN CM
[2023-01-12 20:00] VITALS: BP 127/67; PULSE 59; RESP 18; TEMP 36.9; O2SAT 94
[2023-01-12] MEDS: 0.9% Saline Lock 10 ML Syringe IV (20:34)
[2023-01-12] MEDS: QUEtiapine 100 MG Tablet PO (20:34)
[2023-01-12] MEDS: Ondansetron 4 MG/2 ML Vial IV (20:34)
[2023-01-12] MEDS: Doxazosin 1 MG Tablet 2 MG PO (20:35)
[2023-01-12] MEDS: MELATONIN 3 MG TABLET PO (21:58)
[2023-01-13] MEDS: oxyCODONE 5 MG Tablet PO ×4 (01:23→22:35)
[2023-01-13 02:06] VITALS: BP 121/66; PULSE 59; RESP 18; TEMP 36.5; O2SAT 95
[2023-01-13 06:00] VITALS: BMI 46.5
[2023-01-13] MEDS: metroNIDAZOLE 500 MG Tablet PO ×3 (06:54→22:09)
[2023-01-13 06:56] VITALS: BP 126/51; PULSE 59; RESP 18; TEMP 36.8; O2SAT 94
[2023-01-13 08:22] VITALS: BP 109/48; PULSE 56; RESP 18; TEMP 36.6; O2SAT 95
[2023-01-13] MEDS: rifAXIMin 550 MG Tablet PO ×2 (10:05→22:10)
[2023-01-13] MEDS: Ursodiol 250 MG Tablet PO ×2 (10:06→22:10)
[2023-01-13] MEDS: buPROPion (XL) 300 MG TABLET.XL PO (10:06)
[2023-01-13] MEDS: Azithromycin 250 MG Tablet 500 MG PO (10:06)
[2023-01-13] MEDS: Pantoprazole Sodium 40 MG Tablet PO ×2 (10:07→22:09)
[2023-01-13] MEDS: Lidocaine 5% Patch 2 PATCH TOPICAL (10:07)
[2023-01-13] MEDS: Lactulose 20 GM/30 ML UDC PO ×4 (10:07→22:08)
[2023-01-13] MEDS: Citalopram 40 MG TABLET PO (10:07)
--- NOTE | 2023-01-13 11:13 | CASEMGMT ---
Addendum entered by Elena Wu 01/13/23 15:08: Pt completed application. SW faxed to Rosa Elena Drew at [facility] at this time. Addendum entered by Elena Wu 01/13/23 14:47: SW in to review application for [facility] with pt. SW went over application with pt briefly and pt expressed confidence in being able to complete application on own. SW to check back with pt for completed application and will fax back to Rosa Elena Drew, the superintendant at [facility]. SW did receive pc from Rosa Elena following the application being received. Rosa Elena shared staffing is low at there facility and it could be up to 1-2 weeks before pt can be considered for placement. Rosa Elena encourage SW to send application back and stated things change often . Original Note: Social Work SW called [facility] to confirm fax was received and to inquire about application that was supposed to be faxed to this SW. Left message for Rosa Elena Drew to call and discuss. SW provided call back number. ADALBERTO Hernandez
--- NOTE | 2023-01-13 12:37 | PN_ITS ---
Subjective Subjective Patient seen and examined. She had no complaints. REview of systems is otherwise negative. She is still awaiting placement. Objective Data Objective Data Vital Signs: Vital Signs Temp Pulse Resp BP Pulse Ox O2 Del Method 97.9 F 56 L 18 109/48 L 95 Room Air 01/13/23 08:22 01/13/23 08:22 01/13/23 08:22 01/13/23 08:22 01/13/23 08:22 01/13/23 08:22 Oxygen Delivery Method Room Air Weight: 296 lb 8.348 oz Body Mass Index (BMI) 46.5 Intake & Output: Intake and Output for Last 24 Hours 01/11/23 01/12/23 01/13/23 23:59 23:59 23:59 Intake Total 1182 / 1300 418 / 418 240 / 240 Balance 1182 / 1300 418 / 418 240 / 240 Lab / Micro Data Result Diagrams: 01/09/23 07:19 01/09/23 07:19 Micro: Microbiology 01/05/23 11:15 Nasal Secretion SARS-CoV-2 Antigen (Rapid) - Final Physical Exam Const alert, oriented x3 and no apparent distress General Appearance: cooperative HEENT normocephalic, head/scalp atraumatic and moist oral mucous membranes Eyes PERRL and EOMs intact bilaterally Neck no lymphadenopathy, supple and no JVD Lymph Lymphatic: no lymphadenopathy noted and no lymphedema noted Resp normal respiratory effort, normal air movement and clear to auscultation bilaterally Cardio regular rate, regular rhythm, S1 normal heart sound, S2 normal heart sound and no murmurs GI normal to inspection, nondistended, normoactive bowel sounds, soft to palpation, non-tender and non-distended Extremity Extremity Narrative: 1+ bipedal edema Skin General Skin Exam: no breakdown Neuro CN's II-XII intact bilaterally, no focal motor deficits and no sensory deficits noted Psych thought process normal, cooperative and affect normal Appearance: appropriate Assessment & Plan Assessment/Plan (1) Iron deficiency anemia: (2) Acute hepatic encephalopathy: PLAN: Plan #Acute hepatic encephalopatahy due to alcoholic liver cirrhosis * on lactulose and rifaximin * ammonia level has remained elevated, though she has remained cognitively intact. * on azithromycin and flagyl as per GI * #Alcoholic liver cirrhosis with portal hypertension, varices and gastropathy * gastroenterology on board * on lactulose and rifaximin as above * had EGD on 01/06/2023 which showed gastritis * also on ursodiol * #Depression; on seroquel and bupropion as well as celexa. Morbid obesity: complicates acute care, expected recovery and prognosis #Thrombocytopenia: platelets are chronically low. Will monitor #Leukopenia: Stable. DVT prophylaxis: SCDs Disposition: * still awaiting discharge as brother says he wont take her back in to his home unless she had someone stay with her whilst he was at work. * She has also been denied placement in several psych facilities o/a of her persistently elevated ammonia level Charges/Coding Visit Charges Inpatient E&M: 95394 Subs Hosp L2
[2023-01-13 13:30] VITALS: BP 119/63; PULSE 60; RESP 18; TEMP 36.6; O2SAT 97
[2023-01-13] MEDS: Propranolol 10 MG Tablet 20 MG PO ×2 (13:31→22:16)
[2023-01-13] MEDS: 0.9% Saline Lock 10 ML Syringe IV (13:38)
[2023-01-13] MEDS: Ondansetron 4 MG/2 ML Vial IV (13:38)
[2023-01-13] MEDS: MELATONIN 3 MG TABLET PO (22:07)
[2023-01-13] MEDS: Doxazosin 1 MG Tablet 2 MG PO (22:09)
[2023-01-13] MEDS: Nystatin Powder 15gm Bottle 1 APPLIC TOPICAL (22:10)
[2023-01-13] MEDS: QUEtiapine 100 MG Tablet PO (22:10)
[2023-01-13] MEDS: Menthol/Lanolin/Calamine/Znox 113 GM Tube 1 APPLIC TOPICAL (22:11)
[2023-01-13 22:21] VITALS: BP 129/69; PULSE 58; RESP 16; TEMP 36.9; O2SAT 100
[2023-01-14 05:24] VITALS: BMI 46.4
[2023-01-14] MEDS: metroNIDAZOLE 500 MG Tablet PO ×2 (06:28→22:43)
[2023-01-14] MEDS: Propranolol 10 MG Tablet 20 MG PO ×3 (06:28→22:42)
[2023-01-14 06:33] VITALS: BP 125/77; PULSE 61; RESP 16; TEMP 36.5; O2SAT 95
[2023-01-14] MEDS: Lidocaine 5% Patch 2 PATCH TOPICAL (07:39)
[2023-01-14] MEDS: Ursodiol 250 MG Tablet PO ×2 (07:42→22:44)
[2023-01-14] MEDS: Azithromycin 250 MG Tablet 500 MG PO (07:42)
[2023-01-14] MEDS: Citalopram 40 MG TABLET PO (07:42)
[2023-01-14] MEDS: oxyCODONE 5 MG Tablet PO ×3 (07:42→22:50)
[2023-01-14] MEDS: rifAXIMin 550 MG Tablet PO ×2 (07:42→22:44)
[2023-01-14] MEDS: buPROPion (XL) 300 MG TABLET.XL PO (07:42)
[2023-01-14] MEDS: Pantoprazole Sodium 40 MG Tablet PO ×2 (07:42→22:42)
[2023-01-14] MEDS: Lactulose 20 GM/30 ML UDC PO (07:43)
[2023-01-14] MEDS: Nystatin Powder 15gm Bottle 1 APPLIC TOPICAL (07:45)
[2023-01-14] MEDS: Menthol/Lanolin/Calamine/Znox 113 GM Tube 1 APPLIC TOPICAL (07:45)
[2023-01-14 09:11] VITALS: BP 115/67; PULSE 55; RESP 16; TEMP 36.8; O2SAT 95
[2023-01-14 11:27] VITALS: BP 101/58; PULSE 62; RESP 16; TEMP 37.1; O2SAT 93
--- NOTE | 2023-01-14 11:28 | PN_ITS ---
Subjective Subjective Patient seen and examined. She complained of feeling excessively tired, and said she usually felt that way when her ammonia went high. She would like her lactulose dose increased. Review of systems is otherwise negative. She is still awaiting placement. Objective Data Objective Data Vital Signs: Vital Signs Temp Pulse Resp BP Pulse Ox O2 Del Method 98.7 F 62 16 101/58 L 93 Room Air 01/14/23 11:27 01/14/23 11:27 01/14/23 11:27 01/14/23 11:27 01/14/23 11:27 01/14/23 11:27 Oxygen Delivery Method Room Air Weight: 296 lb 1.293 oz Body Mass Index (BMI) 46.4 Intake & Output: Intake and Output for Last 24 Hours 01/12/23 01/13/23 01/14/23 23:59 23:59 23:59 Intake Total 418 / 418 440 / 440 Balance 418 / 418 440 / 440 Lab / Micro Data Result Diagrams: 01/09/23 07:19 01/09/23 07:19 Micro: Microbiology 01/05/23 11:15 Nasal Secretion SARS-CoV-2 Antigen (Rapid) - Final Physical Exam Const alert, oriented x3 and no apparent distress General Appearance: cooperative HEENT normocephalic, head/scalp atraumatic and moist oral mucous membranes Eyes PERRL and EOMs intact bilaterally Neck no lymphadenopathy, supple and no JVD Lymph Lymphatic: no lymphadenopathy noted and no lymphedema noted Resp normal respiratory effort, normal air movement and clear to auscultation bilaterally Cardio regular rate, regular rhythm, S1 normal heart sound, S2 normal heart sound and no murmurs GI normal to inspection, nondistended, normoactive bowel sounds, soft to palpation, non-tender and non-distended Extremity normal capillary refill Extremity Narrative: 1+ bipedal edema Skin General Skin Exam: no breakdown Neuro CN's II-XII intact bilaterally, no focal motor deficits and no sensory deficits noted Psych thought process normal, cooperative and affect normal Appearance: appropriate Assessment & Plan Assessment/Plan (1) Iron deficiency anemia: (2) Acute hepatic encephalopathy: PLAN: Plan #Acute hepatic encephalopatahy due to alcoholic liver cirrhosis * on lactulose and rifaximin * ammonia level has remained elevated, though she has remained cognitively intac t. * on azithromycin and flagyl as per GI * will increase lactulose dose today as she is feeling quite lethargic * #Alcoholic liver cirrhosis with portal hypertension, varices and gastropathy * gastroenterology on board * on lactulose and rifaximin as above * had EGD on 01/06/2023 which showed gastritis * also on ursodiol * #Depression; on seroquel and bupropion as well as celexa. Morbid obesity: complicates acute care, expected recovery and prognosis #Thrombocytopenia: platelets are chronically low. Will monitor #Leukopenia: Stable. DVT prophylaxis: SCDs Disposition: * still awaiting discharge as brother says he wont take her back in to his home unless she had someone stay with her whilst he was at work. * She has also been denied placement in several psych facilities o/a of her persistently elevated ammonia level Charges/Coding Visit Charges Inpatient E&M: 03019 Subs Hosp L2
[2023-01-14] MEDS: Lactulose 20 GM/30 ML UDC 30 GM PO ×3 (12:31→22:41)
--- NOTE | 2023-01-14 13:00 | CASEMGMT ---
Social Work SW spoke with Rosa Elena Drew at the [facility]. [facility] referral received and will not be reviewed for 1-2 weeks for admission. SW inquired about the Adult Day Care Program at the Home and [facility] pt can be evaluated for that program at the same time but no sooner. Several calls and VM left for [facility] with no return calls. ADALBERTO العراقي
[2023-01-14] MEDS: Ondansetron 8 MG Tablet PO (13:06)
[2023-01-14 14:41] VITALS: BP 118/59; PULSE 58; RESP 16; TEMP 37.2; O2SAT 95
--- NOTE | 2023-01-14 17:16 | PCM.PROGNOTE ---
Subjective Subjective The patient complains of fatigue and weakness. She says that her diet is poor. She does not like the food in the hospital. She is waiting transfer to a psychiatric facility. Objective Data Objective Data Vital Signs: Vital Signs Temp Pulse Resp BP Pulse Ox O2 Del Method 98.9 F 58 L 16 118/59 L 95 Room Air 01/14/23 14:41 01/14/23 14:41 01/14/23 14:41 01/14/23 14:41 01/14/23 14:41 01/14/23 14:41 Oxygen Delivery Method Room Air Weight: 296 lb 1.293 oz Body Mass Index (BMI) 46.4 Intake & Output: Intake and Output for Last 24 Hours 01/12/23 01/13/23 01/14/23 23:59 23:59 23:59 Intake Total 418 / 418 440 / 440 Balance 418 / 418 440 / 440 Lab / Micro Data Result Diagrams: 01/09/23 07:19 01/09/23 07:19 Labs: Laboratory Results - last 24 hr 01/14/23 12:55: Ammonia 97.0 H Micro: Microbiology 01/05/23 11:15 Nasal Secretion SARS-CoV-2 Antigen (Rapid) - Final Physical Exam Const alert, oriented x3 and no apparent distress General Appearance: cooperative HEENT normocephalic, head/scalp atraumatic and moist oral mucous membranes Eyes PERRL and EOMs intact bilaterally Neck no lymphadenopathy, supple and no JVD Lymph Lymphatic: no lymphadenopathy noted and no lymphedema noted Resp normal respiratory effort, normal air movement and clear to auscultation bilaterally Cardio regular rate, regular rhythm, S1 normal heart sound, S2 normal heart sound and no murmurs GI normal to inspection, nondistended, normoactive bowel sounds, soft to palpation, non-tender and non-distended Extremity normal capillary refill Extremity Narrative: 1+ bipedal edema Skin General Skin Exam: no breakdown Neuro CN's II-XII intact bilaterally, no focal motor deficits and no sensory deficits noted Psych thought process normal, cooperative and affect normal Appearance: appropriate Assessment & Plan Assessment/Plan (1) Acute hepatic encephalopathy: PLAN: Plan 52-year-old woman with history of alcoholic cirrhosis and hepatic encephalopathy was admitted with confusion. Currently she is awake and alert and oriented x3. Acute hepatic encephalopathy with hx alcoholic cirrhosis: . Her mental status is improved since admission but he still has fluctuating level of consciousness and sometimes inattention. Her ammonia level is up but her affect is the same as it was yesterday. On lactulose and Xifaxan, azithromycin and Flagyl. I would not rely on her ammonia level. Continue IV fluid for mild dehydration and hold Lasix and spironolactone. Continue Colleen. Her ammonia level has been persistently higher. I ordered a CT scan of the abdomen pelvis to look for any signs of Systemic shunts that may be contributing to her hyperammonia anemia. I also tin a serum and urine amino acids to see if there is any signs of hyperammonemia secondary to urea cycle deficiency. Continue current recommendations. Work-up in progress regarding refractory hyperammonemia in the setting of no portosystemic shunts causing elevated hyperammonemia. Noncompensated alcoholic cirrhosis with a child Gonzalez score a and meld of 8 complicated by with portal hypertension, varices and gastropathy: Her upper endoscopy did not show any signs of varices. She does not need prophylaxis for varices at this time. 01/14-ammonia level is down to 97. On her diagnosis at previous facility she was diagnosed with a urea cycle deficiency. She is not on any typical medicines for urea cycle deficiency. It would not be common to have a urea cycle deficiency in the setting of cirrhosis however it is possible. I will put her on neomycin 500 mg p.o. twice daily and Flagyl 500 mg p.o. twice daily along with lactulose therapy. She should be on phenyl butyrate if possible. I did send off labs for urea cycle deficiency but they are pending. #Thrombocytopenia -Secondary to her cirrhosis -Appears to be at baseline #History of depression, anxiety, PTSD -Continue Wellbutrin, citalopram, prazosin #Morbid obesity -BMI 45.8 -Complicates treatment, prognosis, outcomes -Recommend weight loss and lifestyle changes Charges/Coding Visit Charges Inpatient E&M: 17772 Subs Hosp L3
[2023-01-14] MEDS: MELATONIN 3 MG TABLET PO (22:41)
[2023-01-14] MEDS: Doxazosin 1 MG Tablet 2 MG PO (22:41)
[2023-01-14] MEDS: QUEtiapine 100 MG Tablet PO (22:44)
[2023-01-14 22:58] VITALS: BP 107/46; PULSE 61; RESP 18; TEMP 36.2; O2SAT 95
[2023-01-15 06:00] VITALS: BMI 47.3
[2023-01-15] MEDS: Propranolol 10 MG Tablet 20 MG PO ×3 (06:30→21:34)
[2023-01-15 06:36] VITALS: BP 108/61; PULSE 62; RESP 16; TEMP 36.3; O2SAT 96
[2023-01-15] MEDS: oxyCODONE 5 MG Tablet PO ×3 (07:30→21:35)
[2023-01-15] MEDS: Ursodiol 250 MG Tablet PO ×2 (07:31→21:34)
[2023-01-15] MEDS: Pantoprazole Sodium 40 MG Tablet PO ×2 (07:31→21:34)
[2023-01-15] MEDS: Lidocaine 5% Patch 2 PATCH TOPICAL (07:31)
[2023-01-15] MEDS: metroNIDAZOLE 500 MG Tablet PO ×2 (07:31→21:34)
[2023-01-15] MEDS: buPROPion (XL) 300 MG TABLET.XL PO (07:33)
[2023-01-15] MEDS: Citalopram 40 MG TABLET PO (07:34)
[2023-01-15] MEDS: rifAXIMin 550 MG Tablet PO ×2 (07:34→21:34)
[2023-01-15] MEDS: Lactulose 20 GM/30 ML UDC 30 GM PO ×4 (07:34→21:33)
[2023-01-15 08:30] VITALS: BP 120/85; PULSE 57; RESP 16; TEMP 36.6; O2SAT 93
[2023-01-15 11:28] VITALS: BP 91/52; PULSE 60; RESP 16; TEMP 36.6; O2SAT 93
[2023-01-15] MEDS: Ondansetron 8 MG Tablet PO (11:46)
--- NOTE | 2023-01-15 13:26 | PN_ITS ---
Subjective Subjective Patient seen and examined. She had no complaints today and felt well. She had an uneventful night and review of systems otherwise negative She has remained hemodynamically stable. Objective Data Objective Data Vital Signs: Vital Signs Temp Pulse Resp BP Pulse Ox O2 Del Method 97.8 F 60 16 91/52 L 93 Room Air 01/15/23 11:28 01/15/23 11:28 01/15/23 11:28 01/15/23 11:28 01/15/23 11:28 01/15/23 11:28 Oxygen Delivery Method Room Air Weight: 301 lb 13.005 oz Body Mass Index (BMI) 47.3 Intake & Output: Intake and Output for Last 24 Hours 01/13/23 01/14/23 01/15/23 23:59 23:59 23:59 Intake Total 440 / 440 600 / 600 Balance 440 / 440 600 / 600 Lab / Micro Data Result Diagrams: 01/09/23 07:19 01/09/23 07:19 Labs: Laboratory Results - last 24 hr 01/14/23 12:55: Ammonia 97.0 H 01/15/23 08:35: Ammonia 65.0 H Micro: Microbiology 01/05/23 11:15 Nasal Secretion SARS-CoV-2 Antigen (Rapid) - Final Physical Exam Const alert, oriented x3 and no apparent distress General Appearance: cooperative HEENT normocephalic, head/scalp atraumatic and moist oral mucous membranes Eyes PERRL and EOMs intact bilaterally Neck no lymphadenopathy, supple and no JVD Lymph Lymphatic: no lymphadenopathy noted and no lymphedema noted Resp normal respiratory effort, normal air movement and clear to auscultation bilaterally Cardio regular rate, regular rhythm, S1 normal heart sound, S2 normal heart sound and no murmurs GI normal to inspection, nondistended, normoactive bowel sounds, soft to palpation, non-tender and non-distended Extremity normal capillary refill Extremity Narrative: 1+ bipedal edema Skin General Skin Exam: no breakdown Neuro CN's II-XII intact bilaterally, no focal motor deficits and no sensory deficits noted Psych thought process normal, cooperative and affect normal Appearance: appropriate Assessment & Plan Assessment/Plan (1) Iron deficiency anemia: (2) Acute hepatic encephalopathy: PLAN: Plan #Acute hepatic encephalopatahy due to alcoholic liver cirrhosis * on lactulose and rifaximin * ammonia level has remained elevated, though she has remained cognitively intact. * azithromycin and flagyl dc'd * * #Alcoholic liver cirrhosis with portal hypertension, varices and gastropathy * gastroenterology on board * on lactulose and rifaximin as above * had EGD on 01/06/2023 which showed gastritis * also on ursodiol * #Depression; on seroquel and bupropion as well as celexa. Morbid obesity: complicates acute care, expected recovery and prognosis #Thrombocytopenia: platelets are chronically low. Will monitor #Leukopenia: Stable. DVT prophylaxis: SCDs Disposition: * still awaiting discharge as brother says he wont take her back in to his home unless she had someone stay with her whilst he was at work. * She has also been denied placement in several psych facilities o/a of her persistently elevated ammonia level * case management on board Charges/Coding Visit Charges Inpatient E&M: 26080 Subs Hosp L2
[2023-01-15 16:17] VITALS: BP 115/58; PULSE 54; RESP 16; TEMP 36.9; O2SAT 94
--- NOTE | 2023-01-15 16:42 | PCM.PROGNOTE ---
Subjective Subjective Patient denies any complaints and says she feels about the same. She denies any headache, nausea, abdominal pain. She is having 3-4 bowel movements a day. Objective Data Objective Data Vital Signs: Vital Signs Temp Pulse Resp BP Pulse Ox O2 Del Method 98.5 F 54 L 16 115/58 L 94 Room Air 01/15/23 16:17 01/15/23 16:17 01/15/23 16:17 01/15/23 16:17 01/15/23 16:17 01/15/23 16:17 Oxygen Delivery Method Room Air Weight: 301 lb 13.005 oz Body Mass Index (BMI) 47.3 Intake & Output: Intake and Output for Last 24 Hours 01/13/23 01/14/23 01/15/23 23:59 23:59 23:59 Intake Total 440 / 440 600 / 600 Balance 440 / 440 600 / 600 Lab / Micro Data Result Diagrams: 01/09/23 07:19 01/09/23 07:19 Labs: Laboratory Results - last 24 hr 01/15/23 08:35: Ammonia 65.0 H Micro: Microbiology 01/05/23 11:15 Nasal Secretion SARS-CoV-2 Antigen (Rapid) - Final Physical Exam Const alert, oriented x3 and no apparent distress General Appearance: cooperative HEENT normocephalic, head/scalp atraumatic and moist oral mucous membranes Eyes PERRL and EOMs intact bilaterally Neck no lymphadenopathy, supple and no JVD Lymph Lymphatic: no lymphadenopathy noted and no lymphedema noted Resp normal respiratory effort, normal air movement and clear to auscultation bilaterally Cardio regular rate, regular rhythm, S1 normal heart sound, S2 normal heart sound and no murmurs GI normal to inspection, nondistended, normoactive bowel sounds, soft to palpation, non-tender and non-distended Extremity normal capillary refill Extremity Narrative: 1+ bipedal edema Skin General Skin Exam: no breakdown Neuro CN's II-XII intact bilaterally, no focal motor deficits and no sensory deficits noted Psych thought process normal, cooperative and affect normal Appearance: appropriate Assessment & Plan Assessment/Plan (1) Acute hepatic encephalopathy: PLAN: Plan 52-year-old woman with history of alcoholic cirrhosis and hepatic encephalopathy was admitted with confusion. Currently she is awake and alert and oriented x3. Acute hepatic encephalopathy with hx alcoholic cirrhosis: . Her mental status is improved since admission but he still has fluctuating level of consciousness and sometimes inattention. Her ammonia level is up but her affect is the same as it was yesterday. On lactulose and Xifaxan, azithromycin and Flagyl. I would not rely on her ammonia level. Continue IV fluid for mild dehydration and hold Lasix and spironolactone. Continue Colleen. Her ammonia level has been persistently higher. I ordered a CT scan of the abdomen pelvis to look for any signs of Systemic shunts that may be contributing to her hyperammonia anemia. I also tin a serum and urine amino acids to see if there is any signs of hyperammonemia secondary to urea cycle deficiency. Continue current recommendations. Work-up in progress regarding refractory hyperammonemia in the setting of no portosystemic shunts causing elevated hyperammonemia. Noncompensated alcoholic cirrhosis with a child Gonzalez score a and meld of 8 complicated by with portal hypertension, varices and gastropathy: Her upper endoscopy did not show any signs of varices. She does not need prophylaxis for varices at this time. 01/14-ammonia level is down to 97. On her diagnosis at previous facility she was diagnosed with a urea cycle deficiency. She is not on any typical medicines for urea cycle deficiency. It would not be common to have a urea cycle deficiency in the setting of cirrhosis however it is possible. I will put her on neomycin 500 mg p.o. twice daily and Flagyl 500 mg p.o. twice daily along with lactulose therapy. She should be on phenyl butyrate if possible. I did send off labs for urea cycle deficiency but they are pending. 01/15-we added Flagyl 500 mg p.o. twice daily, neomycin 500 mg p.o. twice daily in with her lactulose for the suspicion of urea cycle deficiency. Her ammonia level is down from 130-97-65 today. Patient is doing well. Recommend to continue current medication regimen. #Thrombocytopenia -Secondary to her cirrhosis -Appears to be at baseline #History of depression, anxiety, PTSD -Continue Wellbutrin, citalopram, prazosin #Morbid obesity -BMI 45.8 -Complicates treatment, prognosis, outcomes -Recommend weight loss and lifestyle changes Charges/Coding Visit Charges Inpatient E&M: 99234 Subs Hosp L3
--- NOTE | 2023-01-15 18:33 | CASEMGMT ---
Social Work Phone call placed to [facility] and spoke with Admission Coordinator Lyndsey. They do accept pts private pay until the Assisted Living Waiver program is put in place. Cost is $874/month. VM left with Lele at [facility] and updated on discharge plan. JOSE spoke with Vernon Merida at the [facility] [place] [facility] and an assessment for home care services has been scheduled for 02/02/23 with pt. JOSE spoke with Landry at [facility] and requested assessment for the Assisted Living Waiver program. Landry states pt will be contacted in the next two weeks to set up this assessment. Pt's care team has collaborated and discussed discharge options. Pt is medically ready for discharge from acute hospital. JOSE met with pt to discuss discharge plan. Pt confirms that she is feeling very well at this time and is understanding that it is time for discharge. SW explained to pt resources that have been set up and that it will take time for them to be implemented. Pt is agreeable to return to her brother's home but is concerned he will not accept her back. Pt agreeable to SW calling her brother. Phone call placed to pt brother Vaibhav and explained pt is medically ready for discharge and that resources have been set up but will take a few weeks to be put in place. Pt will need to be taken home at this time. Vaibhav very upset and does not feel pt should return home. JOSE offered for pt to go to [facility] private pay and Vaibhav declines. JOSE offered pt go to [facility] and Vaibhav declines. Vaibhav states he cannot picker operator pt as he is out of state. JOSE offered to set up transportation through pt insurance and Vaibhav declines. After extensive conversation, Vaibhav is agreeable for pt to return home. Vaibhav is out of state and will be returning late tonight. Vaibhav states he will be in tomorrow morning to pick pt up. JOSE met with pt and informed of conversation with brother and plan for discharge tomorrow morning. Pt is agreeable. JOSE provided pt with Written List of all resources and contact information that has been initiated on her behalf. SW also return [facility] application to pt and provided her with a [facility] card. JOSE encourage pt to continued taking medication as scheduled and discussed setting alarms on phone as reminders. SW also encouraged pt to reach out to agencies if she does not hear from them in the next two weeks. Pt appreciative of information. Dr. Eid and charge nurse updated that pt brother plans to pick pt up for discharge in the morning. ADALBERTO العراقي
[2023-01-15 21:29] VITALS: BP 122/68; PULSE 63; RESP 16; TEMP 37.2; O2SAT 97
[2023-01-15] MEDS: Doxazosin 1 MG Tablet 2 MG PO (21:33)
[2023-01-15] MEDS: QUEtiapine 100 MG Tablet PO (21:34)
[2023-01-15] MEDS: MELATONIN 3 MG TABLET PO (21:35)
[2023-01-16] MEDS: Ondansetron 8 MG Tablet PO (00:48)
[2023-01-16 05:41] VITALS: BMI 47.3
[2023-01-16 05:44] VITALS: BP 110/59; PULSE 57; RESP 16; TEMP 36.6; O2SAT 94
[2023-01-16] MEDS: oxyCODONE 5 MG Tablet PO ×2 (05:45→12:01)
[2023-01-16 09:55] VITALS: BP 120/55; PULSE 60; RESP 16; TEMP 36.4; O2SAT 94
[2023-01-16] MEDS: Ursodiol 250 MG Tablet PO (09:55)
[2023-01-16] MEDS: rifAXIMin 550 MG Tablet PO (09:55)
[2023-01-16] MEDS: Pantoprazole Sodium 40 MG Tablet PO (09:55)
[2023-01-16] MEDS: buPROPion (XL) 300 MG TABLET.XL PO (09:56)
[2023-01-16] MEDS: Citalopram 40 MG TABLET PO (09:56)
[2023-01-16] MEDS: metroNIDAZOLE 500 MG Tablet PO (09:56)
[2023-01-16] MEDS: Lidocaine 5% Patch 2 PATCH TOPICAL (09:57)
[2023-01-16] MEDS: Lactulose 20 GM/30 ML UDC 30 GM PO (09:58)
[2023-01-16 12:00] VITALS: BP 125/70; PULSE 61; RESP 16; TEMP 36.4; O2SAT 94
--- NOTE | 2023-01-16 12:08 | DCINST_ITS ---
Discharge Instructions Diet Discharge Diet: Low fat / Low cholesterol Activity Discharge Activity: Return to Normal Activity Weight Bearing Status: Weight bearing as tolerated Dressing / Incision Call your doctor if you observe: Fever of 101 or Higher, Shortness of breath, Dizziness, Swelling in the ankles, Chest pain and Increased palpitations (irregular heartbeat) Follow Up Care Test Results: Test results from this visit will be discussed in further detail at your follow- up appointment, if applicable. Discharge Plan Admission Admit Date/Time: 01/02/23 17:38 Primary Reason for Your Visit: hepatic encephalopathy Attending Provider: Irina Eid Primary Care Provider: Luz Dhaliwal NP Consulting Providers: Zaina Champagne ; Placido Aponte ; Owen Chapman Instructions Patient Instructions: Hepatic Encephalopathy Discharge Orders/Prescriptions Prescriptions: Continued furosemide 20 mg tablet 20 mg PO TID propranolol 10 mg tablet 20 mg PO TID Xifaxan 550 mg tablet 550 mg PO BID Label Comments: TAKE 1 TABLET BY MOUTH TWICE DAILY citalopram 40 mg tablet 40 mg PO DAILY prazosin 2 mg capsule 3 mg PO QHS Label Comments: take 1 capsule by mouth at bedtime; 1 hour before bedtime quetiapine [Seroquel] 50 mg tablet 100 mg PO QHS bupropion HCl 300 mg tablet extended release 24 hr 300 mg PO DAILY Label Comments: take 1 tablet by mouth once daily spironolactone 25 mg Tablet 50 mg PO DAILY 30 Days Qty: 60 2RF Rx Instructions: Hold if serum potassium more than 5.0. ferrous sulfate 325 mg (65 mg iron) tablet 325 mg PO QODAY Qty: 30 0RF lactulose 10 gram/15 mL solution 30 ml PO TID Qty: 473 2RF Rx Instructions: Titrate the dose of lactulose to have a goal of 2-3 soft bowel movements per day buspirone 10 mg tablet 10 - 20 mg PO TID PRN PRN (Reason: Anxiety) Label Comments: take 2 tablets by mouth three times a day if needed ondansetron 4 mg tablet,disintegrating 4 mg PO PRN PRN (Reason: Nausea) ursodiol 300 mg capsule 300 mg PO BID Qty: 180 3RF diazepam [Valium] 10 mg tablet 10 mg PO .COMPLEX Qty: 1 0RF Rx Instructions: take 1 hour prior to MRI Referrals / Follow Up: Samir Ramos DO [Med Staff - Active Staff] - Within 1 Month Luz Dhaliwal VP ANALYTICS, VP ANALYT[employer]-C [Primary Care Provider] - Within 2 Weeks Disposition Disposition (needs filled in before D/C Order can be placed): Home, Self Care
--- NOTE | 2023-01-16 12:11 | DS.PCM_ITS ---
Providers Date of Admission: 01/02/23 Date of Discharge: 01/16/23 Primary Care Physician: Luz Dhaliwal, TERELL-C Reason For Visit: HEPATIC ENCEPHALOPATHY Diagnosis Discharge Diagnosis (1) Acute hepatic encephalopathy: Status: Acute Code(s): K76.82 - Hepatic encephalopathy Plan #Acute hepatic encephalopatahy due to alcoholic liver cirrhosis * on lactulose and rifaximin * ammonia level has remained elevated, though she has remained cognitively intact. * azithromycin and flagyl dc'd * * #Alcoholic liver cirrhosis with portal hypertension, varices and gastropathy * gastroenterology on board * on lactulose and rifaximin as above * had EGD on 01/06/2023 which showed gastritis * also on ursodiol * #Depression; on seroquel and bupropion as well as celexa. Morbid obesity: complicates acute care, expected recovery and prognosis #Thrombocytopenia: platelets are chronically low. Will monitor #Leukopenia: Stable. DVT prophylaxis: SCDs Disposition: * still awaiting discharge as brother says he wont take her back in to his home unless she had someone stay with her whilst he was at work. * She has also been denied placement in several psych facilities o/a of her persistently elevated ammonia level * case management on board Medications at Discharge Home Medications citalopram 40 mg tablet 40 mg PO DAILY depression 10/28/22 furosemide 20 mg tablet 20 mg PO TID diuretic 10/28/22 prazosin 2 mg capsule 3 mg PO QHS sleep 10/28/22 propranolol 10 mg tablet 20 mg PO TID tremors 10/28/22 quetiapine 50 mg tablet (Seroquel) 100 mg PO QHS sleep 10/28/22 rifaximin 550 mg tablet (Xifaxan) 550 mg PO BID cirrhosis 10/28/22 bupropion HCl 300 mg 24 hr tablet, extended release 300 mg PO DAILY depression 11/18/22 ferrous sulfate 325 mg (65 mg iron) tablet 325 mg PO QODAY supplement #30 tabs 11/20/22 lactulose 10 gram/15 mL oral solution 30 ml PO TID cirrhosis #473 mL 11/20/22 spironolactone 25 mg tablet 50 mg PO DAILY 30 days #60 tabs 11/20/22 diazepam 10 mg tablet (Valium) 10 mg PO .COMPLEX #1 TAB 02/21/23 ursodiol 300 mg capsule 300 mg PO BID #180 caps 12/15/22 buspirone 10 mg tablet 10 - 20 mg PO TID PRN PRN Anxiety 12/17/22 ondansetron 4 mg disintegrating tablet 4 mg PO PRN PRN Nausea 12/17/22 oxycodone 5 mg tablet 5 mg PO Q6H PRN pain 3 days #12 tabs 01/16/23 Hospital Course Operations None Procedures None Summary of Care Provided Minutes Spent on Discharge: 45 Hospital Course: Patient is a 52 y/o female with a PMH as outlined including cirrhosis and recurrent hepatic encephalopathy as well as PTSD was admitted through the ED on 01/02/2023 with a complaint of worsening mental status and disorientation. She had been seen at outside hospital and discharged just the day prior to admission. However she was more confused when she was brought to the ED. 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 She was admitted and managed for acute hepatic encephalopathy. She was placed on lactulose. Her ammonia was elevated. Her mentation increase and she felt much better. However her ammonia level remained elevated. Her hospital course was prolonged and protracted because there was difficulty with placement as her brother was not willing to take her back home due to concerns that her confusion may recur and worsen. There were attempts made to place her in a psych facility because there was concern that she was hallucinating but this was unsuccessful as her ammonia level was elevated. Her brother finally agreed to take her back home and she was discharged on 01/16/2023. She was discharged on lactulose to titrate until she was having 2-3 loose stools daily. She was also discharged on 3-day course of p.o. oxycodone 5 mg every 6 hours as needed for pain. OARRS score was checked and no red flags were seen. Patient was seen and examined prior to discharge. She felt well and had an uneventful night. Review of systems otherwise negative. Labs and vitals reviewed. Home medication reviewed and reconciled. Physical Exam Const alert, oriented x3 and no apparent distress General Appearance: cooperative and comfortable Orientation / Consciousness: awake Exam Limitations: no limitations HEENT normocephalic, head/scalp atraumatic, hearing grossly normal bilaterally and moist oral mucous membranes Mouth: oral and palatal mucosa normal Eyes PERRL and EOMs intact bilaterally Neck no lymphadenopathy, supple and no JVD Lymph Lymphatic: no lymphadenopathy noted and no lymphedema noted Resp normal respiratory effort, normal air movement and clear to auscultation bilaterally Cardio regular rate, regular rhythm, S1 normal heart sound, S2 normal heart sound and no murmurs GI normal to inspection, nondistended, normoactive bowel sounds, soft to palpation, non-tender and non-distended Extremity normal capillary refill Extremity Narrative: 1+ bipedal edema Skin no rashes or lesions noted General Skin Exam: no breakdown Neuro oriented x3, CN's II-XII intact bilaterally, moves all extremities, no focal motor deficits and no sensory deficits noted Sensorium / Orientation: awake and alert Psych thought process normal, cooperative and affect normal Appearance: appropriate Weight / BMI Weight Weight: 301 lb 9.478 oz Body Mass Index (BMI) 47.3 ABG / Lab / Microbiology Data Result Diagrams: 01/09/23 07:19 01/09/23 07:19 Microbiology: Microbiology 01/05/23 11:15 Nasal Secretion SARS-CoV-2 Antigen (Rapid) - Final D/C Instructions Discharge Diet: Low fat / Low cholesterol Discharge Activity: Return to Normal Activity Weight Bearing Status: Weight bearing as tolerated Call your doctor if you observe: Fever of 101 or Higher, Shortness of breath, Dizziness, Swelling in the ankles, Chest pain and Increased palpitations (irregular heartbeat) Meaningful Use Info Meaningful Use Diagnoses (Choose all that apply): None applicable Discharge Plan Admission Admit Date/Time: 01/02/23 17:38 Primary Reason for Your Visit: hepatic encephalopathy Attending Provider: Irina Eid Primary Care Provider: Luz Dhaliwal NP Consulting Providers: Zaina Champagne ; Placido Aponte ; Owen Chapman Instructions Patient Instructions: Hepatic Encephalopathy Discharge Orders/Prescriptions Prescriptions: New oxycodone 5 mg tablet 5 mg PO Q6H PRN (Reason: pain) 3 Days Qty: 12 0RF Continued furosemide 20 mg tablet 20 mg PO TID propranolol 10 mg tablet 20 mg PO TID Xifaxan 550 mg tablet 550 mg PO BID Label Comments: TAKE 1 TABLET BY MOUTH TWICE DAILY citalopram 40 mg tablet 40 mg PO DAILY prazosin 2 mg capsule 3 mg PO QHS Label Comments: take 1 capsule by mouth at bedtime; 1 hour before bedtime quetiapine [Seroquel] 50 mg tablet 100 mg PO QHS bupropion HCl 300 mg tablet extended release 24 hr 300 mg PO DAILY Label Comments: take 1 tablet by mouth once daily spironolactone 25 mg Tablet 50 mg PO DAILY 30 Days Qty: 60 2RF Rx Instructions: Hold if serum potassium more than 5.0. ferrous sulfate 325 mg (65 mg iron) tablet 325 mg PO QODAY Qty: 30 0RF lactulose 10 gram/15 mL solution 30 ml PO TID Qty: 473 2RF Rx Instructions: Titrate the dose of lactulose to have a goal of 2-3 soft bowel movements per day buspirone 10 mg tablet 10 - 20 mg PO TID PRN PRN (Reason: Anxiety) Label Comments: take 2 tablets by mouth three times a day if needed ondansetron 4 mg tablet,disintegrating 4 mg PO PRN PRN (Reason: Nausea) ursodiol 300 mg capsule 300 mg PO BID Qty: 180 3RF diazepam [Valium] 10 mg tablet 10 mg PO .COMPLEX Qty: 1 0RF Rx Instructions: take 1 hour prior to MRI Referrals / Follow Up: Samir Ramos DO [Med Staff - Active Staff] - Within 1 Month Luz Dhaliwal NP, ON SITE MANAGER-C [Primary Care Provider] - Within 2 Weeks Disposition Disposition (needs filled in before D/C Order can be placed): Home, Self Care Charges/Coding Visit Charges Inpatient E&M: 31605 Disch Hosp >30min
== END 2023-01-16 12:50 | disposition home or self-care (01) | DRG 280 ==
LOC: ED 17:04 → MS3 17:40
PROVIDERS: Anesthesiology; Family Medicine; Internal Medicine; Internal Medicine Gastroenterology; Admitting Provider Internal Medicine; Emergency Provider Emergency Medicine; PCP Nurse Practitioner Family; Visit Provider Student in an Organized Health Care Education/Training Program
PROC: 0DJ08ZZ Inspection of Upper Intestinal Tract, Via Natural or Artificial Opening Endoscopic (ICD-10-PCS; CPT 43235; principal; 2023-01-06 12:40)
DX: K76.82 Hepatic encephalopathy (principal); K70.31 Alcoholic cirrhosis of liver with ascites; K25.4 Chronic or unspecified gastric ulcer with hemorrhage; D72.10 Eosinophilia, unspecified; I85.00 Esophageal varices without bleeding; D50.9 Iron deficiency anemia, unspecified; F10.10 Alcohol abuse, uncomplicated; E66.01 Morbid (severe) obesity due to excess calories; F31.9 Bipolar disorder, unspecified; K76.6 Portal hypertension; Z68.41 Body mass index [BMI] 40.0-44.9, adult; K31.89 Other diseases of stomach and duodenum; K44.9 Diaphragmatic hernia without obstruction or gangrene; K29.70 Gastritis, unspecified, without bleeding; Z87.891 Personal history of nicotine dependence; F43.10 Post-traumatic stress disorder, unspecified
CPT/HCPCS: 36415; 71045; 73560; 74177; 80048; 80053; 80307; 80320; 81001; 82140; 82550; 82803; 82962; 82977; 83690; 83735; 84100; 85025; 85610; 85730; 87426; 88305; 88342; 93005; 94668; 99252; 99285; J7030; J7120; P9612; Q9967; A4216; G0463; G0480; J2405

== ENCOUNTER 2023-02-20 20:48 | Inpatient (IN) | payer MEDICAID, SELFPAY ==
[2023-02-20 20:49] VITALS: BP 133/97; PULSE 69; RESP 15; TEMP 36; O2SAT 96
[2023-02-20 21:08] VITALS: BMI 43.6
[2023-02-20 21:36] LABS: Color, Urine Yellow (Yellow); Glucose, Dipstick Normal (Normal); Ketone-Dipstick 5 mg/dl (Negative); Leukocyte Esterase-Dipstick 25 /ul (Negative); Mucous, Urine 0 SEEN /hpf (<or=2+); Nitrite-Dipstick Negative (Negative); Occult Blood-Urine 10 /ul (Negative); Protein-Dipstick 30 mg/dl (Negative); Specific Gravity, Urine 1.015 (1.002-1.030); Urine Bilirubin Dipstick 1 mg/dL (Negative); Urine Clarity Sl. Cloudy (Clear); Urine Urobilinogen 8 mg/dl (Normal)
--- NOTE | 2023-02-20 21:37 | EX.ED.DYSGE1 ---
HPI History of Present Illness Chief Complaint: Confusion Informant: family (Brother) Onset/Context/Timing Onset: Yesterday Context: Gradual Onset Timing: Continuous Quality: Confusion Location: Generalized Worsened by: Nothing Relieved by: Nothing Narrative Narrative: Patient presents with confusion that has been getting worse since yesterday. Brother states patient lives with him. Brother states that his examination he does not think that the patient took any of her lactulose today. Brother states that when her ammonia levels become elevated she starts acting similar to this. Brother states that patient patient was recently admitted to the hospital here and her ammonia levels were going up and down despite treatment with lactulose. Brother denies any fevers but admits to some chills. Brother states the patient was complaining of some nausea yesterday. [facility] Medical History Acidosis Alcohol abuse Alcohol use Alcoholic cirrhosis of liver without ascites Anxiety and depression Bipolar disorder Cirrhosis Depression Easy bruising Edema Eosinophilia, unspecified Essential (primary) hypertension Former smoker Gastric reflux Hepatic encephalopathy Hepatitis History of edema History of IBS History of pain when walking Hx of scarlet fever Immunity status testing Iron deficiency anemia Lactic acidosis Low urine output Neutropenia Pancytopenia Portal hypertension Post-menopausal Restless legs Shortness of breath on exertion Splenomegaly Thrombocytopenia Urea cycle metabolism disorder UTI (urinary tract infection) Wears dentures Wears glasses Home Medications citalopram 40 mg tablet 40 mg PO DAILY depression 10/28/22 [History Last Taken Unknown] furosemide 20 mg tablet 20 mg PO TID diuretic 10/28/22 [History Last Taken Unknown] propranolol 10 mg tablet 20 mg PO TID tremors 10/28/22 [History Last Taken Unknown] quetiapine 50 mg tablet (Seroquel) 100 mg PO QHS sleep 10/28/22 [History Last Taken Unknown] rifaximin 550 mg tablet (Xifaxan) 550 mg PO BID cirrhosis 10/28/22 [History Last Taken Unknown] bupropion HCl 300 mg 24 hr tablet, extended release 300 mg PO DAILY depression 11/18/22 [History Last Taken Unknown] ferrous sulfate 325 mg (65 mg iron) tablet 325 mg PO QODAY supplement #30 tabs 11/20/22 [Rx Last Taken Unknown] lactulose 10 gram/15 mL oral solution 30 ml PO TID cirrhosis #473 mL 11/20/22 [Rx Last Taken Unknown] spironolactone 25 mg tablet 50 mg PO DAILY 30 days #60 tabs 11/20/22 [Rx Last Taken Unknown] diazepam 10 mg tablet (Valium) 10 mg PO .COMPLEX #1 TAB 12/15/22 [Rx Last Taken Unknown] ursodiol 300 mg capsule 300 mg PO BID #180 caps 12/15/22 [Rx Last Taken Unknown] buspirone 10 mg tablet 10 - 20 mg PO TID PRN PRN Anxiety 12/17/22 [History Last Taken Unknown] ondansetron 4 mg disintegrating tablet 4 mg PO PRN PRN Nausea 12/17/22 [History Last Taken Unknown] oxycodone 5 mg tablet 5 mg PO Q6H PRN pain 3 days #12 tabs 01/16/23 [Rx Last Taken Unknown] prazosin 1 mg capsule 3 mg PO QHS 02/20/23 [History Last Taken Unknown] Allergy/AdvReac Type Severity Reaction Status Date / Time No Known Allergies Allergy Verified 01/02/23 15:42 Family History Grandmother Breast cancer Surgical History History of ankle surgery Hx of section Hx of cholecystectomy Hx of hand surgery Hx of shoulder surgery Hx of total knee replacement Social History Smoking Status: Former smoker Electronic Cigarette Use: with nicotine how long ago did patient quit smoking: Transitioned from cig tob to vaping, heavy currently. alcohol intake: former year quit: 2021 details: 11/26/21 substance use type: other details: Former amphetamine/meth use, clean since 11/26/21. ROS ROS ED Constitutional Constitutional ED: Reports chills and subjective; Denies fever(s) Eyes Eyes: Denies blurry vision or change in vision ENT ENT ED: Denies rhinorrhea or sore throat Cardiovascular Cardiovascular: Denies chest pain or palpitations Respiratory/Chest Respiratory/Chest: Reports dyspnea; Denies cough Gastrointestinal Gastrointestinal: Reports nausea; Denies vomiting Genitourinary Genitourinary ED: Denies dysuria or hematuria Musculoskeletal Musculoskeletal: Reports back pain; Denies neck pain Integumentary Denies abscess or rash Neurologic Neurologic: Denies headache(s) or weakness Allergic/Immunologic Allergic/Immunologic ED: Denies mouth swelling or urticaria EXAM Physical Exam Const Vital Signs: 02/20/23 20:49 Temperature 96.8 F L Temperature Source Temporal Pulse Rate 69 Respiratory Rate 15 Blood Pressure 133/97 H Blood Pressure Mean 109 Pulse Ox 96 Oxygen Delivery Method Room Air Positive well nourished, well developed and obese General Appearance ED: well developed and NAD Nutritional Appearance: obese HEENT Reports moist mucous membranes Neck supple and no JVD Resp normal respiratory effort and clear to auscultation bilaterally Cardio regular rate and regular rhythm GI non-tender GI Narrative: Abdomen is soft. Bowel sounds are normal. There is ascites noted. There is no rebound. There is no tenderness. Palpation: soft Extremity normal to inspection General Extremety ED: Negative for edema or tenderness General Extremity: Negative for edema Neuro CN's II-XII intact bilaterally and no sensory deficits noted Sensorium / Orientation: alert and orientation impaired Motor Exam: strength 5/5 throughout Skin no rashes or lesions noted MDM MDM MDM Narrative Medical decision making narrative: Differential diagnosis includes hepatic encephalopathy, infection, sepsis, urinary tract infection, coagulopathy, and anemia. CBC will be obtained to assess for leukocytosis and anemia. Comprehensive metabolic profile will be obtained to assess for hepatic function, renal function, and electrolyte abnormality. Urinalysis will be obtained to assess for urinary tract infection. Serum ammonia level will be obtained to assess for hepatic encephalopathy. Serum lactate will be obtained to assess for sepsis. PT with INR and PTT will be obtained to assess for coagulopathy. Lab Data Attestation: I reviewed the patient's lab results. Lab results narrative: Comprehensive metabolic profile was reviewed. Alkaline phosphatase was mildly elevated at 148. The remainder was essentially within normal limits. PT with INR and PTT were reviewed. Pro time was 15.2 and INR is 1.2. PTT was normal at 28.4. Urinalysis was reviewed. There is no evidence of urinary tract infection or hematuria. Serum lactate was reviewed and was 2.0. Serum ammonia level was reviewed and was elevated at 153. CBC was reviewed. Platelets were slightly low at 87. The remainder was essentially within normal limits. Labs: Laboratory Results - last 24 hr 02/20/23 02/20/23 02/20/23 21:15 21:25 21:25 WBC 6.0 RBC 4.80 Hgb 15.0 Hct 45.4 MCV 94.6 MCH 31.3 MCHC 33.0 RDW Std Deviation 53.3 H RDW Coeff of Stephon 15.3 H Plt Count 87 L MPV 10.3 Immature Gran % (Auto) 0.300 Neut % (Auto) 53.9 Lymph % (Auto) 25.7 [place] % (Auto) 13.4 H Eos % (Auto) 6.0 H Baso % (Auto) 0.7 Absolute Neuts (auto) 3.3 Absolute Lymphs (auto) 1.55 Nucleated RBC % 0 Platelet Estimate MOD DEC RBC Morphology N CHROM Anisocytosis RARE Macrocytosis RARE PT 15.2 H INR 1.2 APTT 28.4 Sodium Potassium Chloride Carbon Dioxide Anion Gap BUN Creatinine Estim Creat Clear Calc Est GFR (MDRD) Af Amer Est GFR (MDRD) Non-Af BUN/Creatinine Ratio Glucose Lactic Acid Calcium Total Bilirubin AST ALT Alkaline Phosphatase Ammonia Total Protein Albumin Globulin Albumin/Globulin Ratio Urine Color Yellow Urine Clarity Sl. Cloudy Urine pH 7.0 Ur Specific [place] 1.015 Urine Protein 30 H Urine Glucose (UA) Normal Urine Ketones 5 H Urine Occult Blood 10 H Urine Nitrite Negative Urine Bilirubin 1 H Urine Urobilinogen 8 H Ur Leukocyte Esterase 25 H Urine RBC 0-5 SEEN Urine WBC 0-5 SEEN Ur Squamous Epith Cells 5-10 SEEN Urine Bacteria 1+ Urine Mucus 0 SEEN 02/20/23 02/20/23 02/20/23 21:25 21:25 21:25 WBC RBC Hgb Hct MCV MCH MCHC RDW Std Deviation RDW Coeff of Stephon Plt Count MPV Immature Gran % (Auto) Neut % (Auto) Lymph % (Auto) [place] % (Auto) Eos % (Auto) Baso % (Auto) Absolute Neuts (auto) Absolute Lymphs (auto) Nucleated RBC % Platelet Estimate RBC Morphology Anisocytosis Macrocytosis PT INR APTT Sodium 140 Potassium 4.3 Chloride 113 H Carbon Dioxide 25.0 Anion Gap 2 L BUN 14 Creatinine 0.91 Estim Creat Clear Calc 68.73 Est GFR (MDRD) Af Amer 82 Est GFR (MDRD) Non-Af 68 BUN/Creatinine Ratio 15.3 Glucose 124 H Lactic Acid 2.0 Calcium 9.4 Total Bilirubin 1.00 AST 33 ALT 24 Alkaline Phosphatase 148 H Ammonia 153.0 H Total Protein 7.0 Albumin 3.1 L Globulin 3.9 Albumin/Globulin Ratio 0.8 L Urine Color Urine Clarity Urine pH Ur Specific [place] Urine Protein Urine Glucose (UA) Urine Ketones Urine Occult Blood Urine Nitrite Urine Bilirubin Urine Urobilinogen Ur Leukocyte Esterase Urine RBC Urine WBC Ur Squamous Epith Cells Urine Bacteria Urine Mucus Management Discussion w/another healthcare provider: Hospitalist Treatment and Re-Evaluation :: Patient was given a dose of lactulose here. Case was discussed with the hospitalist for admission. He will admit the patient to his service. Patient and family understood and were agreeable with the plan. All questions were answered. Discharge Plan Dx/Rx/DC Orders Clinical Impression: Acute hepatic encephalopathy, Cirrhosis Disposition Disposition: Acute Care [facility]
[2023-02-20 21:42] LABS: Bacteria 1+ /hpf (None Seen); Red Blood Cells-Urine 0-5 SEEN /hpf (0-5); Squamous Epithelial Cells - UA 5-10 SEEN /hpf (5-10); White Blood Cells 0-5 SEEN /hpf (0-5)
[2023-02-20 21:46] LABS: Absolute Lymphocyte Count 1.55 X10^3/uL (0.83-4.51); Absolute Neutrophil Count 3.3 X10^3/uL (2.0-7.7); Basophil# 0.04 X10^3/uL; Basophil% 0.7 % (0-1); Eosinophil# 0.36 X10^3/uL; Hematocrit 45.4 % (37-47); Lymphocyte # 1.55 X10^3/ul (0.83-4.51); Lymphocyte % 25.7 % (19-41); Mean Corpuscular Hgb 31.3 pg (27.0-32.0); Mean Corpuscular Volume 94.6 fL (81-99); Mean Platelet Vol. 10.3 fl (6.2-12.0); Monocyte# 0.81 X10^3/uL; Monocyte% 13.4 % (0-10); NRBC Flagged by Analyzer 0 % (0-5); Neutrophil # 3.25 X10^3/uL (2.7-7.7); Neutrophil % 53.9 % (47-70); POSITIVE COUNT YES; Platelet Count 87 K/mm3 (150-450); RBC Distribution Width CV 15.3 % (11.6-14.6); RBC Distribution Width SD 53.3 fl (35.1-43.9)
[2023-02-20 21:49] LABS: International Normalized Ratio 1.2; Partial Thromboplast Time 28.4 Seconds (24.1-36.2); Prothrombin Time (Protime)PT. 15.2 SECONDS (11.7-14.9)
[2023-02-20 21:52] LABS: ALB/GLOB Ratio 0.8 RATIO (0.9-2.4); AST(SGOT) 33 U/L (15-37); Alanine Aminotransfer ALT/SGPT 24 U/L (13-56); Albumin, Serum 3.1 g/dL (3.2-5.0); Alkaline Phosphatase 148 U/L (45-117); Anion Gap 2 (5-15); BUN 14 mg/dL (7-18); BUN/Creat Ratio 15.3 RATIO (10-20); Calcium,Total 9.4 mg/dL (8.5-10.1); Chloride 113 mmol/L (98-107); Creatinine, Serum 0.91 mg/dL (0.55-1.02); EST Glomerular Filtration Rate 68 mL/min (>60); Est Glom Filt Rate - Afr Amer 82 mL/min (>60); Estimated Creatinine Clearance 68.73 ml/min; Globulin 3.9 g/dL (2.2-4.2); Glucose 124 mg/dL (74-106); Potassium 4.3 mmol/L (3.5-5.1); Sodium Level 140 mmol/L (136-145)
[2023-02-20 22:30] LABS: Differential Indicated SCAN CRITERIA MET
[2023-02-20 22:31] LABS: Platelet Estimate MOD DEC (ADEQ); Red Cell Morphology N CHROM NORMAL (NORM C&C)
[2023-02-20 22:32] LABS: Anisocytosis RARE; Macrocytosis RARE
[2023-02-20] MEDS: Lactulose 20 GM/30 ML UDC PO (22:38)
[2023-02-20 22:49] VITALS: BP 147/77; PULSE 66; RESP 18; TEMP 36.2; O2SAT 94
--- NOTE | 2023-02-20 22:51 | HP.PCM.HOS_ITS ---
HPI - General General Date of Admission: 02/20/23 Date of Service: 02/20/23 Chief Complaint: Confusion HPI Narrative EVER VERDUZCO, is a 52 F with a significant history of cirrhosis of the liver and hepatic encephalopathy who presents emergency department with confusion that started a day before presentation. History was taken for emergency department doctor who discussed case with patient's brother. Reportedly patient's brother who is a mechanic welder truck driver called patient over the phone and noticed that patient was confused and was changing h er statements that she had taken her lactulose. Her confusion worsened. [facility] [place] Medical History Acidosis Alcohol abuse Alcohol use Alcoholic cirrhosis of liver without ascites Anxiety and depression Bipolar disorder Cirrhosis Depression Easy bruising Edema Eosinophilia, unspecified Essential (primary) hypertension Former smoker Gastric reflux Hepatic encephalopathy Hepatitis History of edema History of IBS History of pain when walking Hx of scarlet fever Immunity status testing Iron deficiency anemia Lactic acidosis Low urine output Neutropenia Pancytopenia Portal hypertension Post-menopausal Restless legs Shortness of breath on exertion Splenomegaly Thrombocytopenia Urea cycle metabolism disorder UTI (urinary tract infection) Wears dentures Wears glasses Home Medications citalopram 40 mg tablet 40 mg PO DAILY depression 10/28/22 [History Last Taken Unknown] furosemide 20 mg tablet 20 mg PO TID diuretic 10/28/22 [History Last Taken Unknown] propranolol 10 mg tablet 20 mg PO TID tremors 10/28/22 [History Last Taken Unknown] quetiapine 50 mg tablet (Seroquel) 100 mg PO QHS sleep 10/28/22 [History Last Taken Unknown] rifaximin 550 mg tablet (Xifaxan) 550 mg PO BID cirrhosis 10/28/22 [History Last Taken Unknown] bupropion HCl 300 mg 24 hr tablet, extended release 300 mg PO DAILY depression 11/18/22 [History Last Taken Unknown] ferrous sulfate 325 mg (65 mg iron) tablet 325 mg PO QODAY supplement #30 tabs 11/20/22 [Rx Last Taken Unknown] lactulose 10 gram/15 mL oral solution 30 ml PO TID cirrhosis #473 mL 11/20/22 [Rx Last Taken Unknown] spironolactone 25 mg tablet 50 mg PO DAILY 30 days #60 tabs 11/20/22 [Rx Last Ta robin Unknown] diazepam 10 mg tablet (Valium) 10 mg PO .COMPLEX #1 TAB 02/21/23 [Rx Last Taken Unknown] ursodiol 300 mg capsule 300 mg PO BID #180 caps 12/15/22 [Rx Last Taken Unknown] buspirone 10 mg tablet 10 - 20 mg PO TID PRN PRN Anxiety 12/17/22 [History Last Taken Unknown] ondansetron 4 mg disintegrating tablet 4 mg PO PRN PRN Nausea 12/17/22 [History Last Taken Unknown] oxycodone 5 mg tablet 5 mg PO Q6H PRN pain 3 days #12 tabs 01/16/23 [Rx Last Taken Unknown] prazosin 1 mg capsule 3 mg PO QHS 02/20/23 [History Last Taken Unknown] Allergy/AdvReac Type Severity Reaction Status Date / Time No Known Allergies Allergy Verified 01/02/23 15:42 Family History Grandmother Breast cancer Surgical History History of ankle surgery Hx of section Hx of cholecystectomy Hx of hand surgery Hx of shoulder surgery Hx of total knee replacement Social History Smoking Status: Former smoker Electronic Cigarette Use: with nicotine how long ago did patient quit smoking: Transitioned from cig tob to vaping, heavy currently. alcohol intake: former year quit: 2021 details: 11/26/21 substance use type: other details: Former amphetamine/meth use, clean since 11/26/21. ROS Review of Systems ROS Unobtainable: due to mental condition Vital Signs Vital Signs Vital Signs: 02/20/23 20:49 Temperature 96.8 F L Temperature Source Temporal Pulse Rate 69 Respiratory Rate 15 Blood Pressure 133/97 H Blood Pressure Mean 109 Pulse Ox 96 Oxygen Delivery Method Room Air Weight Weight: 126.3 kg Body Mass Index (BMI) 43.6 Physical Exam Narrative Physical exam: General: Well-nourished, well-developed. Head: Normocephalic, atraumatic, no tenderness Eyes: Vision is grossly intact. EOMI ENT, no trauma, moist mucous membranes, no rhinorrhea Neck: Nontender, No thyromegaly. CVS: Regular rate and rhythm. S1-S2 present. No murmur, gallop or rub. Respiratory : clear to auscultation bilaterally, chest wall nontender Abdomen: Soft, nontender, nondistended, normal bowel sounds, no masses : Deferred Back: Nontender, no CVA tenderness, no midline spinal tenderness, deformities, step-offs Extremities: Nontender full range of motion, no trauma Skin: Normal color, no trauma, abrasions Neuro: Alert, confused cranial nerves II through XII grossly intact. Psychiatry: Normal mood. Normal affect. Not depressed. Not anxious. Results Lab / Micro Data Result Diagrams: 02/21/23 02:05 02/21/23 02:05 Labs: Laboratory Results - last 24 hr 02/20/23 21:15: Urine Color Yellow, Urine Clarity Sl. Cloudy, Urine pH 7.0, Ur Specific [place] 1.015, Urine Protein 30 H, Urine Glucose (UA) Normal, Urine Ketones 5 H, Urine Occult Blood 10 H, Urine Nitrite Negative, Urine Bilirubin 1 H, Urine Urobilinogen 8 H, Ur Leukocyte Esterase 25 H, Urine RBC 0-5 SEEN, Urine WBC 0-5 SEEN, Ur Squamous Epith Cells 5-10 SEEN, Urine Bacteria 1+, Urine Mucus 0 SEEN 02/20/23 21:25: WBC 6.0, RBC 4.80, Hgb 15.0, Hct 45.4, MCV 94.6, MCH 31.3, MCHC 33.0, RDW Std Deviation 53.3 H, RDW Coeff of Stephon 15.3 H, Plt Count 87 L, MPV 10.3, Immature Gran % (Auto) 0.300, Neut % (Auto) 53.9, Lymph % (Auto) 25.7, [place] % (Auto) 13.4 H, Eos % (Auto) 6.0 H, Baso % (Auto) 0.7, Absolute Neuts (auto) 3.3, Absolute Lymphs (auto) 1.55, Nucleated RBC % 0, Platelet Estimate MOD DEC, RBC Morphology N CHROM, Anisocytosis RARE, Macrocytosis RARE 02/20/23 21:25: PT 15.2 H, INR 1.2, APTT 28.4 02/20/23 21:25: Sodium 140, Potassium 4.3, Chloride 113 H, Carbon Dioxide 25.0, Anion Gap 2 L, BUN 14, Creatinine 0.91, Estim Creat Clear Calc 68.73, Est GFR (MDRD) Af Amer 82, Est GFR (MDRD) Non-Af 68, BUN/Creatinine Ratio 15.3, Glucose 124 H, Calcium 9.4, Total Bilirubin 1.00, AST 33, ALT 24, Alkaline Phosphatase 148 H, Total Protein 7.0, Albumin 3.1 L, Globulin 3.9, Albumin/Globulin Ratio 0.8 L 02/20/23 21:25: Ammonia 153.0 H 02/20/23 21:25: Lactic Acid 2.0 Assessment & Plan Assessment/Plan (1) Acute hepatic encephalopathy: PLAN: Plan Acute hepatic encephalopathy Ammonia level on presentation was 153. Highest on file so far. Per patient's brother typically when patient's ammonia gets high she gets confused. Lactulose and rifaximin resumed. Start patient on neomycin. Of note abdomen and pelvis CT did not show ascites. We will start patient on prophylaxis for SBP. Ceftriaxone ordered. Radiologist impression of abdomen/pelvis CT: Cirrhotic liver with findings cons istent with portal hypertension including splenomegaly and abdominal varices. Hiatal Hernia. Atherosclerosis. Hospitalist independent interpretation of abdomen/pelvis CT: Agrees with radiology interpretation. Urinalysis on presentation was not impressive CBC and CMP was unrevealing. Alkaline phosphatase was elevated but is chronic. Trend CBC and BMP. Charges/Coding Visit Charges Inpatient E&M: 18866 Init Hosp L2
[2023-02-21 00:28] VITALS: BP 131/104; PULSE 72; RESP 18; TEMP 36.7; O2SAT 96; BMI 42.7
[2023-02-21] MEDS: 0.9% Saline Lock 10 ML Syringe IV (01:00)
[2023-02-21 01:12] VITALS: O2SAT 96
[2023-02-21 01:32] LABS: Reflex Lactate? Y
[2023-02-21 02:26] LABS: Absolute Neutrophil Count 3.1 X10^3/uL (2.0-7.7); Basophil# 0.03 X10^3/uL; Basophil% 0.6 % (0-1); Eosinophil# 0.14 X10^3/uL; Hematocrit 45.7 % (37-47); Hemoglobin 14.9 g/dL (12.0-15.0); Lymphocyte % 21.6 % (19-41); Mean Corp Hgb Conc 32.6 g/dL (32-36); Mean Corpuscular Hgb 31.2 pg (27.0-32.0); Mean Corpuscular Volume 95.8 fL (81-99); Mean Platelet Vol. 10.6 fl (6.2-12.0); Monocyte# 0.34 X10^3/uL; Monocyte% 7.3 % (0-10); NRBC Flagged by Analyzer 0 % (0-5); Neutrophil # 3.12 X10^3/uL (2.7-7.7); Neutrophil % 67.5 % (47-70); POSITIVE COUNT YES; Platelet Count 80 K/mm3 (150-450); RBC Distribution Width CV 15.2 % (11.6-14.6); RBC Distribution Width SD 54.3 fl (35.1-43.9); Red Blood Count 4.77 M/mm3 (4.2-5.4); White Blood Count 4.6 K/mm3 (4.4-11.0)
[2023-02-21 02:45] LABS: Anion Gap 2 (5-15); BUN 15 mg/dL (7-18); BUN/Creat Ratio 17.4 RATIO (10-20); Calcium,Total 9.3 mg/dL (8.5-10.1); Chloride 112 mmol/L (98-107); Creatinine, Serum 0.86 mg/dL (0.55-1.02); EST Glomerular Filtration Rate 73 mL/min (>60); Est Glom Filt Rate - Afr Amer 88 mL/min (>60); Estimated Creatinine Clearance 72.72 ml/min; Glucose 201 mg/dL (74-106); Potassium 3.9 mmol/L (3.5-5.1); Sodium Level 139 mmol/L (136-145)
[2023-02-21 02:48] LABS: Lactic Acid 1.5 mmol/L (0.4-1.9)
[2023-02-21 06:00] VITALS: BP 121/77; PULSE 66; RESP 16; TEMP 36.7; O2SAT 97
[2023-02-21] MEDS: Lactulose 20 GM/30 ML UDC PO ×3 (06:11→21:39)
[2023-02-21] MEDS: Furosemide 20 MG Tablet PO ×3 (06:12→21:40)
[2023-02-21] MEDS: Propranolol 10 MG Tablet 20 MG PO ×3 (06:13→21:40)
[2023-02-21] MEDS: rifAXIMin 550 MG Tablet PO ×2 (09:08→21:41)
[2023-02-21] MEDS: Enoxaparin 40 MG/0.4 ML Syringe SC (09:09)
[2023-02-21] MEDS: Ursodiol 250 MG Tablet PO ×2 (09:09→16:44)
[2023-02-21] MEDS: buPROPion (XL) 300 MG TABLET.XL PO (09:10)
[2023-02-21] MEDS: Spironolactone 50 MG Tablet PO (09:10)
[2023-02-21] MEDS: Citalopram 40 MG TABLET PO (09:11)
[2023-02-21 09:16] VITALS: BP 136/81; PULSE 70; RESP 18; TEMP 36.7; O2SAT 95
--- NOTE | 2023-02-21 13:50 | PCM.PN.HOSP ---
Reason for Visit Reason for Visit: Diagnoses Hepatic encephalopathy (02/20/23) Subjective Subjective Patient was seen and examined today, she still has confusion, she does not know why she is in the hospital. Objective Data Objective Data Vital Signs: Vital Signs Temp Pulse Resp BP Pulse Ox O2 Del Method 98.1 F 70 18 136/81 H 95 Room Air 02/21/23 09:16 02/21/23 09:16 02/21/23 09:16 02/21/23 09:16 02/21/23 09:16 02/21/23 10:00 Oxygen Delivery Method Room Air Weight: 123.9 kg Body Mass Index (BMI) 42.7 Intake & Output: Intake and Output for Last 24 Hours 02/19/23 02/20/23 02/21/23 23:59 23:59 23:59 Intake Total 50 / 50 Balance 50 / 50 Lab / Micro Data Result Diagrams: 02/21/23 02:05 02/21/23 02:05 Labs: Laboratory Results - last 24 hr 02/20/23 21:15: Urine Color Yellow, Urine Clarity Sl. Cloudy, Urine pH 7.0, Ur Specific [place] 1.015, Urine Protein 30 H, Urine Glucose (UA) Normal, Urine Ketones 5 H, Urine Occult Blood 10 H, Urine Nitrite Negative, Urine Bilirubin 1 H, Urine Urobilinogen 8 H, Ur Leukocyte Esterase 25 H, Urine RBC 0-5 SEEN, Urine WBC 0-5 SEEN, Ur Squamous Epith Cells 5-10 SEEN, Urine Bacteria 1+, Urine Mucus 0 SEEN 02/20/23 21:25: WBC 6.0, RBC 4.80, Hgb 15.0, Hct 45.4, MCV 94.6, MCH 31.3, MCHC 33.0, RDW Std Deviation 53.3 H, RDW Coeff of Stephon 15.3 H, Plt Count 87 L, MPV 10.3, Immature Gran % (Auto) 0.300, Neut % (Auto) 53.9, Lymph % (Auto) 25.7, [place] % (Auto) 13.4 H, Eos % (Auto) 6.0 H, Baso % (Auto) 0.7, Absolute Neuts (auto) 3.3, Absolute Lymphs (auto) 1.55, Nucleated RBC % 0, Platelet Estimate MOD DEC, RBC Morphology N CHROM, Anisocytosis RARE, Macrocytosis RARE 02/20/23 21:25: PT 15.2 H, INR 1.2, APTT 28.4 02/20/23 21:25: Sodium 140, Potassium 4.3, Chloride 113 H, Carbon Dioxide 25.0, Anion Gap 2 L, BUN 14, Creatinine 0.91, Estim Creat Clear Calc 68.73, Est GFR (MDRD) Af Amer 82, Est GFR (MDRD) Non-Af 68, BUN/Creatinine Ratio 15.3, Glucose 124 H, Calcium 9.4, Total Bilirubin 1.00, AST 33, ALT 24, Alkaline Phosphatase 148 H, Total Protein 7.0, Albumin 3.1 L, Globulin 3.9, Albumin/Globulin Ratio 0.8 L 02/20/23 21:25: Ammonia 153.0 H 02/20/23 21:25: Lactic Acid 2.0 02/21/23 02:05: WBC 4.6, RBC 4.77, Hgb 14.9, Hct 45.7, MCV 95.8, MCH 31.2, MCHC 32.6, RDW Std Deviation 54.3 H, RDW Coeff of Stephon 15.2 H, Plt Count 80 L, MPV 10.6, Immature Gran % (Auto) 0.000, Neut % (Auto) 67.5, Lymph % (Auto) 21.6, [place] % (Auto) 7.3, Eos % (Auto) 3.0, Baso % (Auto) 0.6, Absolute Neuts (auto) 3.1, Absolute Lymphs (auto) 1.00, Nucleated RBC % 0 02/21/23 02:05: Sodium 139, Potassium 3.9, Chloride 112 H, Carbon Dioxide 25.0, Anion Gap 2 L, BUN 15, Creatinine 0.86, Estim Creat Clear Calc 72.72, Est GFR (MDRD) Af Amer 88, Est GFR (MDRD) Non-Af 73, BUN/Creatinine Ratio 17.4, Glucose 201 H, Calcium 9.3 02/21/23 02:05: Ammonia 45.0 H 02/21/23 02:05: Lactic Acid 1.5 Physical Exam Const alert and no apparent distress Constitutional Narrative: Patient is morbidly obese General Appearance: cooperative, well kempt and well developed Orientation / Consciousness: awake and oriented to person HEENT normocephalic, head/scalp atraumatic and moist oral mucous membranes Eyes PERRL, EOMs intact bilaterally and conjunctivae normal Neck supple, no JVD, thyroid normal and no carotid bruits General: trachea midline Resp normal respiratory effort, no retractions, no use of accessory muscles and clear to auscultation bilaterally Auscultation: Negative for rales, rhonchi or wheezes Cardio regular rate, regular rhythm, S1 normal heart sound, S2 normal heart sound, no murmurs, no rub and no gallops GI normal to inspection, nondistended, normoactive bowel sounds, soft to palpation, non-tender and non-distended Extremity no clubbing, cyanosis or edema Skin no rashes or lesions noted General Skin Exam: no breakdown Neuro oriented x3, CN's II-XII intact bilaterally, moves all extremities, no focal motor deficits and no sensory deficits noted Sensorium / Orientation: awake and alert Speech: speech normal Psych Psych Narrative: Patient is confused Assessment & Plan Assessment/Plan (1) Acute hepatic encephalopathy: PLAN: Plan 1. Hepatic encephalopathy-continue lactulose and rifaximin, she is also on Rocephin #2 morbid obesity-complicates care, medical course, recovery, and prognosis #3 chronic depression-patient is on Lexapro and Wellbutrin #4 cirrhosis of the liver secondary to alcohol use-patient remains on lactulose, Lasix, spironolactone, and rifaximin #5 PTSD-patient is on prazosin #6 history of tremors-patient is on propranolol Total clinical time spent by myself addressing the patient's medical issues, reviewing all of her data, and collaborating with patient's care team: 37 minutes Charges/Coding Visit Charges Inpatient E&M: 32980 Subs Hosp L2
[2023-02-21 14:42] VITALS: BP 100/85; PULSE 74; RESP 18; TEMP 37.2; O2SAT 95
[2023-02-21 20:03] VITALS: BP 149/97; PULSE 75; RESP 16; TEMP 37; O2SAT 96
[2023-02-21] MEDS: Doxazosin 1 MG Tablet 2.5 MG PO (21:39)
[2023-02-21] MEDS: QUEtiapine 100 MG Tablet PO (21:40)
[2023-02-22 01:29] VITALS: BP 98/55; PULSE 65; RESP 16; TEMP 36.9; O2SAT 95
[2023-02-22] MEDS: Propranolol 10 MG Tablet 20 MG PO ×3 (05:04→22:10)
[2023-02-22] MEDS: Furosemide 20 MG Tablet PO ×3 (05:04→22:10)
[2023-02-22] MEDS: Lactulose 20 GM/30 ML UDC PO ×3 (05:04→22:09)
[2023-02-22 07:56] VITALS: O2SAT 93
[2023-02-22 08:12] VITALS: BP 123/60; PULSE 65; RESP 18; TEMP 36.9; O2SAT 96
[2023-02-22] MEDS: Ursodiol 250 MG Tablet PO ×2 (08:14→17:19)
[2023-02-22] MEDS: Ferrous Sulfate 325 MG Tablet PO (08:14)
[2023-02-22] MEDS: Spironolactone 50 MG Tablet PO (08:15)
[2023-02-22] MEDS: buPROPion (XL) 300 MG TABLET.XL PO (08:15)
[2023-02-22] MEDS: rifAXIMin 550 MG Tablet PO ×2 (08:15→22:10)
[2023-02-22] MEDS: Enoxaparin 40 MG/0.4 ML Syringe SC (08:15)
[2023-02-22] MEDS: Citalopram 40 MG TABLET PO (08:15)
--- NOTE | 2023-02-22 08:52 | PCM.PN.HOSP ---
Reason for Visit Reason for Visit: Diagnoses Hepatic encephalopathy (02/20/23) Subjective Subjective Patient is a 52-year-old lady with history of cirrhosis of the liver secondary to alcohol use admitted with altered mental status and assessment of acute hepatic encephalopathy made admitted to a monitored bed where patient has since been managed Objective Data Objective Data Vital Signs: Vital Signs Temp Pulse Resp BP Pulse Ox O2 Del Method 98.5 F 65 18 123/60 H 96 Room Air 02/22/23 08:12 02/22/23 08:12 02/22/23 08:12 02/22/23 08:12 02/22/23 08:12 02/22/23 08:12 Oxygen Delivery Method Room Air Weight: 123.9 kg Body Mass Index (BMI) 42.7 Intake & Output: Intake and Output for Last 24 Hours 02/20/23 02/21/23 02/22/23 23:59 23:59 23:59 Intake Total 1850 / 1850 600 / 600 Balance 1850 / 1850 600 / 600 Lab / Micro Data Result Diagrams: 02/21/23 02:05 02/21/23 02:05 Labs: Laboratory Results - last 24 hr 02/22/23 05:02: Ammonia 87.0 H Physical Exam Narrative GENERAL: Awake but with intermittent confusion HEENT: Atraumatic; normocephalic EYES; Anicteric, Normal Conjunctiva NECK; supple, normal thyroid, RESPIRATORY: Diminished to auscultation CARDIOVASCULAR: Regular S1 S2, GI: soft, normoactive bowel sounds, : No Renal angle tenderness; EXTREMITIES: No edema, no clubbing, MUSCULOSKELETAL: no muscle wasting NEURO: Awake; no lateralizing signs. SKIN: No Rash PSYCH; Flat affect Assessment & Plan Assessment/Plan (1) Acute hepatic encephalopathy: PLAN: Plan Patient is a 52-year-old lady with history of cirrhosis of the liver secondary to alcohol use admitted with altered mental status and assessment of acute hepatic encephalopathy made admitted to a monitored bed where patient has since been managed 1. Acute hypoxic encephalopathy GEN admitted to a monitored bed managed with lactulose as well as rifaximin was empirically treated with Rocephin. Patient level of sensorium continues to wax and wane. Her ammonia level this a.m. is 87 2. Cirrhosis of the liver ? Secondary to chronic alcohol.. Patient is on furosemide, Aldactone in addition to rifaximin and lactulose 3. Physical deconditioning - Requested for PT OT eval and social professionals to assist with discharge planning 4. PTSD ? Patient is on prazosin Depression ? Patient is on Wellbutrin and Lexapro 6. Class III obesity with BMI of 42.8 ? Weight loss advised 7. Essential tremors ? Patient is on propranolol 8. Thrombocytopenia ? Secondary to patient cirrhosis of the liver monitoring with daily CBC 9. DVT prophylaxis - On enoxaparin Time spent in the patient's overall evaluation,decision-making process, review of diagnostic data, adjustment of management, discussion patient's family his brother and with other providers, nursing nursing and ancillary staff involved in patient's care documentation, 55-minute. Minutes Charges/Coding Visit Charges Inpatient E&M: 11851 Subs Hosp L3
[2023-02-22] MEDS: busPIRone 5 MG Tablet 10 MG PO (10:34)
--- NOTE | 2023-02-22 10:35 | NURSING ---
PT IS CONFUSED AND DISORIENTED. ATTEMPTING TO GET OOB MULTIPLE TIMES. PT DOES NOT KNOW WHERE SHE IS OR WHY SHE'S HERE. KEEPS REPEATING THAT SHE WANTS TO GET OUT OF HERE. ATTEMPTS TO REORIENT AND EDUCATE PT NOT SUCCESSFUL. MED WITH [facility] TO HELP WITH ANXIETY. WILL CONTINUE TO MONITOR.
--- NOTE | 2023-02-22 12:27 | CASEMGMT ---
Social Work JOSE reviewed chart, pt was here in December. SW on the last admission made several phone calls, made multiple referrals, and gave pt all of the information. Pt was alert and oriented when she left after the last hospitalization. SW called pt's brother Vaibhav, with who she lives, to see how things have been going at home. As per Vaibhav, pt has been managing at home fine until she got confused again. Vaibhav states as long as pt is not confused, she manages fine at home. He states pt has not been drinking or using, has not drank in a year. She has no access to alcohol, she does not drive and he does not buy it for her. Vaibhav states he is gone daily from 4am-7pm driving the to[employer]. SW inquired if anything came through in regard to all of the referrals made. He states pt was approved for the assisted living waiver, he states it's somewhere in [place], he does not remember where. He states pt also applied for social security and will be able to go to assisted living once social security is approved, this may take several months. SW reviewed how pt was doing prior to this hospitalization and anticipated discharge plan. PCP: Luz Nieto, TERELL Pharmacy: [facility] in [place] Living arrangements/Prior level of care: SW lives with brother in a trailer with 3 steps in. When pt is not confused, she is managing fine at home. Pt's brother states she is wobbly on her feet but manages okay, can complete her ADLs. When pt is confused however, it is difficult for pt to manage ADLS, and has more difficulty walking. Pt uses no DME at baseline. Pt does not drive, brother drives or she uses transportation. DME: Pt needs a walker and a shower chair, has no DME LNOK: 2 brothers, 2 sons. Sons Leo and Soto live together in [place]. LW/POA: Pt has not completed these. Pt's brother states pt does not want to complete them, has been fighting him on this. SW explained that without the documents, decisions if needed would go to the sons. Vaibhav states understanding, states they are all on the same page. HHC/SNF: Pt has had [facility] in the past, has not been to SNF. As per pt's brother, once pt was ready for discharge she did not qualify for SNF as she was alert and oriented and doing fine. SW explained that we will continue to follow as pt is here, and if needed will look into group home referral. Plan: TBD, SNF vs home, if home, possibly home health and DME(walker and shower chair) SW will continue to follow. BETTY Velásquez
[2023-02-22 14:00] VITALS: BP 137/62; PULSE 67; RESP 16; TEMP 36.7; O2SAT 94
[2023-02-22 17:17] VITALS: BP 132/84; PULSE 67; RESP 20; TEMP 36.9; O2SAT 94
[2023-02-22] MEDS: 0.9% Saline Lock 10 ML Syringe IV ×2 (18:03→22:09)
[2023-02-22 20:30] VITALS: BP 114/75; PULSE 73; RESP 16; TEMP 36.8; O2SAT 94
[2023-02-22] MEDS: Doxazosin 1 MG Tablet 2.5 MG PO (22:10)
[2023-02-22] MEDS: QUEtiapine 100 MG Tablet PO (22:10)
[2023-02-23 00:01] VITALS: BMI 42.7
[2023-02-23 02:30] VITALS: BP 100/43; PULSE 69; RESP 16; TEMP 36.6; O2SAT 94
[2023-02-23 05:27] LABS: Absolute Lymphocyte Count 1.49 X10^3/uL (0.83-4.51); Absolute Neutrophil Count 2.9 X10^3/uL (2.0-7.7); Basophil# 0.06 X10^3/uL; Basophil% 1.1 % (0-1); Eosinophils% 5.4 % (0-5); Hematocrit 44.7 % (37-47); Hemoglobin 14.8 g/dL (12.0-15.0); Lymphocyte # 1.49 X10^3/ul (0.83-4.51); Mean Corp Hgb Conc 33.1 g/dL (32-36); Mean Corpuscular Hgb 31.2 pg (27.0-32.0); Mean Corpuscular Volume 94.3 fL (81-99); Monocyte# 0.81 X10^3/uL; Monocyte% 14.7 % (0-10); NRBC Flagged by Analyzer 0 % (0-5); Neutrophil # 2.85 X10^3/uL (2.7-7.7); Neutrophil % 51.6 % (47-70); POSITIVE COUNT YES; Platelet Count 66 K/mm3 (150-450); RBC Distribution Width SD 52.3 fl (35.1-43.9); Red Blood Count 4.74 M/mm3 (4.2-5.4); White Blood Count 5.5 K/mm3 (4.4-11.0)
[2023-02-23] MEDS: Propranolol 10 MG Tablet 20 MG PO ×2 (05:37→14:31)
[2023-02-23] MEDS: Lactulose 20 GM/30 ML UDC PO ×2 (05:37→14:31)
[2023-02-23] MEDS: Furosemide 20 MG Tablet PO ×2 (05:37→14:31)
[2023-02-23 05:38] VITALS: BP 113/65; PULSE 72; RESP 16; TEMP 36.7; O2SAT 99
[2023-02-23 05:49] LABS: AST(SGOT) 31 U/L (15-37); Alanine Aminotransfer ALT/SGPT 26 U/L (13-56); Albumin, Serum 2.9 g/dL (3.2-5.0); Alkaline Phosphatase 145 U/L (45-117); Anion Gap 6 (5-15); BUN 15 mg/dL (7-18); BUN/Creat Ratio 20.8 RATIO (10-20); Bilirubin, Direct 0.38 mg/dL (0.00-0.30); Calcium,Total 9.1 mg/dL (8.5-10.1); Chloride 108 mmol/L (98-107); Creatinine, Serum 0.72 mg/dL (0.55-1.02); EST Glomerular Filtration Rate 89 mL/min (>60); Est Glom Filt Rate - Afr Amer 108 mL/min (>60); Estimated Creatinine Clearance 86.86 ml/min; Globulin 3.7 g/dL (2.2-4.2); Glucose 95 mg/dL (74-106); Phosphorus 3.8 mg/dL (2.5-4.9); Potassium 3.1 mmol/L (3.5-5.1); Protein, Total 6.6 g/dL (6.4-8.2); Sodium Level 139 mmol/L (136-145)
--- NOTE | 2023-02-23 07:23 | PCM.PN.HOSP ---
Reason for Visit Reason for Visit: Diagnoses Hepatic encephalopathy (02/20/23) Subjective Subjective Patient seen level of sensorium markedly improved. Ammonia level down to 56. Plan is to discuss patient's condition with her brother prior to being discharged for possible discharge Objective Data Objective Data Vital Signs: Vital Signs Temp Pulse Resp BP Pulse Ox O2 Del Method 98.1 F 72 16 113/65 99 Room Air 02/23/23 05:38 02/23/23 05:38 02/23/23 05:38 02/23/23 05:38 02/23/23 05:38 02/23/23 05:38 Oxygen Delivery Method Room Air Weight: 123.831 kg Body Mass Index (BMI) 42.7 Intake & Output: Intake and Output for Last 24 Hours 02/21/23 02/22/23 02/23/23 23:59 23:59 23:59 Intake Total 1850 / 1850 652.75 / 652.75 Balance 1850 / 1850 652.75 / 652.75 Lab / Micro Data Result Diagrams: 02/23/23 05:19 02/23/23 05:19 Labs: Laboratory Results - last 24 hr 02/23/23 05:19: Ammonia 56.0 H 02/23/23 05:19: WBC 5.5, RBC 4.74, Hgb 14.8, Hct 44.7, MCV 94.3, MCH 31.2, MCHC 33.1, RDW Std Deviation 52.3 H, RDW Coeff of Stephon 15.0 H, Plt Count 66 L, MPV 10.0, Immature Gran % (Auto) 0.200, Neut % (Auto) 51.6, Lymph % (Auto) 27.0, [place] % (Auto) 14.7 H, Eos % (Auto) 5.4 H, Baso % (Auto) 1.1 H, Absolute Neuts (auto) 2.9, Absolute Lymphs (auto) 1.49, Nucleated RBC % 0 02/23/23 05:19: Sodium 139, Potassium 3.1 L, Chloride 108 H, Carbon Dioxide 25.0, Anion Gap 6, BUN 15, Creatinine 0.72, Estim Creat Clear Calc 86.86, Est GFR (MDRD) Af Amer 108, Est GFR (MDRD) Non-Af 89, BUN/Creatinine Ratio 20.8 H, Glucose 95, Calcium 9.1, Phosphorus 3.8, Magnesium 2.0, Total Bilirubin 1.00, Direct Bilirubin 0.38 H, AST 31, ALT 26, Alkaline Phosphatase 145 H, Total Protein 6.6, Albumin 2.9 L, Globulin 3.7 Physical Exam Narrative GENERAL: Cooperative HEENT: Atraumatic; normocephalic EYES; Anicteric, Normal Conjunctiva NECK; supple, normal thyroid, RESPIRATORY: Diminished to auscultation CARDIOVASCULAR: Regular S1 S2, GI: soft, normoactive bowel sounds, : No Renal angle tenderness; EXTREMITIES: No edema, no clubbing, MUSCULOSKELETAL: no muscle wasting NEURO: Awake; no lateralizing signs. SKIN: No Rash PSYCH; Flat affect Assessment & Plan Assessment/Plan (1) Acute hepatic encephalopathy: PLAN: Plan Patient is a 52-year-old lady with history of cirrhosis of the liver secondary to alcohol use admitted with altered mental status and assessment of acute hepatic encephalopathy made admitted to a monitored bed where patient has since been managed 1. Acute hypoxic encephalopathy ?Admitted to a monitored bed managed with lactulose as well as rifaximin was empirically treated with Rocephin. Patient level of sensorium continues to wax and wane. Her ammonia level this a.m. is 87 ? 02/23/2023 level of sensorium markedly improved ammonia down to 56 2. Cirrhosis of the liver ? Secondary to chronic alcohol.. Patient is on furosemide, Aldactone in addition to rifaximin and lactulose 3. Physical deconditioning - Requested for PT OT eval and social problems specialist to assist with discharge planning 4. PTSD ? Patient is on prazosin Depression ? Patient is on Wellbutrin and Lexapro 6. Class III obesity with BMI of 42.8 ? Weight loss advised 7. Essential tremors ? Patient is on propranolol 8. Thrombocytopenia ? Secondary to patient cirrhosis of the liver monitoring with daily CBC 9. DVT prophylaxis - On enoxaparin 10. Hypokalemia -Corrected per protocol Time spent in the patient's overall evaluation,decision-making process, review of diagnostic data, adjustment of management, discussion patient's family his brother and with other providers, nursing nursing and ancillary staff involved in patient's care documentation, 35-minute. Minutes Charges/Coding Visit Charges Inpatient E&M: 29423 Subs Hosp L2
[2023-02-23 07:41] VITALS: BP 119/69; PULSE 74; RESP 16; TEMP 36.8; O2SAT 97
--- NOTE | 2023-02-23 09:04 | DS.PCM_ITS ---
Providers Date of Admission: 02/20/23 Date of Discharge: 02/23/23 Primary Care Physician: Luz Dhaliwal, TERELL-C Reason For Visit: HEPATIC ENCEPHALOPATHY Diagnosis Discharge Diagnosis (1) Acute hepatic encephalopathy: Status: Acute Code(s): K76.82 - Hepatic encephalopathy Plan Patient is a 52-year-old lady with history of cirrhosis of the liver secondary to alcohol use admitted with altered mental status and assessment of acute hepatic encephalopathy made admitted to a monitored bed where patient has since been managed 1. Acute hypoxic encephalopathy ?Admitted to a monitored bed managed with lactulose as well as rifaximin was empirically treated with Rocephin. Patient level of sensorium continues to wax and wane. Her ammonia level this a.m. is 87 ? 02/23/2023 level of sensorium markedly improved ammonia down to 56 2. Cirrhosis of the liver ? Secondary to chronic alcohol.. Patient is on furosemide, Aldactone in addition to rifaximin and lactulose 3. Physical deconditioning - Requested for PT OT eval and bilingual social worker to assist with discharge planning 4. PTSD ? Patient is on prazosin Depression ? Patient is on Wellbutrin and Lexapro 6. Class III obesity with BMI of 42.8 ? Weight loss advised 7. Essential tremors ? Patient is on propranolol 8. Thrombocytopenia ? Secondary to patient cirrhosis of the liver monitoring with daily CBC 9. DVT prophylaxis - On enoxaparin 10. Hypokalemia -Corrected per protocol Time spent in the patient's overall evaluation,decision-making process, review of diagnostic data, adjustment of management, discussion patient's family his brother and with other providers, nursing nursing and ancillary staff involved in patient's care documentation, 35-minute. Minutes Medications at Discharge Home Medications citalopram 40 mg tablet 40 mg PO DAILY depression 10/28/22 furosemide 20 mg tablet 20 mg PO TID diuretic 10/28/22 propranolol 10 mg tablet 20 mg PO TID tremors 10/28/22 quetiapine 50 mg tablet (Seroquel) 100 mg PO QHS sleep 10/28/22 rifaximin 550 mg tablet (Xifaxan) 550 mg PO BID cirrhosis 10/28/22 bupropion HCl 300 mg 24 hr tablet, extended release 300 mg PO DAILY depression 11/18/22 ferrous sulfate 325 mg (65 mg iron) tablet 325 mg PO QODAY supplement #30 tabs 11/20/22 lactulose 10 gram/15 mL oral solution 30 ml PO TID cirrhosis #473 mL 11/20/22 spironolactone 25 mg tablet 50 mg PO DAILY 30 days #60 tabs 11/20/22 ursodiol 300 mg capsule 300 mg PO BID #180 caps 12/15/22 buspirone 10 mg tablet 10 - 20 mg PO TID PRN PRN Anxiety 12/17/22 ondansetron 4 mg disintegrating tablet 4 mg PO PRN PRN Nausea 12/17/22 prazosin 1 mg capsule 3 mg PO QHS 02/20/23 Hospital Course Summary of Care Provided Minutes Spent on Discharge: 35 Physical Exam Narrative GENERAL: Cooperative HEENT: Atraumatic; normocephalic EYES; Anicteric, Normal Conjunctiva NECK; supple, normal thyroid, RESPIRATORY: Diminished to auscultation CARDIOVASCULAR: Regular S1 S2, GI: soft, normoactive bowel sounds, : No Renal angle tenderness; EXTREMITIES: No edema, no clubbing, MUSCULOSKELETAL: no muscle wasting NEURO: Awake; no lateralizing signs. SKIN: No Rash PSYCH; Flat affect Weight / BMI Weight Weight: 123.831 kg Body Mass Index (BMI) 42.7 ABG / Lab / Microbiology Data Result Diagrams: 02/23/23 05:19 02/23/23 05:19 Laboratory: Laboratory Results - last 24 hr 02/23/23 05:19: Ammonia 56.0 H 02/23/23 05:19: WBC 5.5, RBC 4.74, Hgb 14.8, Hct 44.7, MCV 94.3, MCH 31.2, MCHC 33.1, RDW Std Deviation 52.3 H, RDW Coeff of Stephon 15.0 H, Plt Count 66 L, MPV 10.0, Immature Gran % (Auto) 0.200, Neut % (Auto) 51.6, Lymph % (Auto) 27.0, Peach % (Auto) 14.7 H, Eos % (Auto) 5.4 H, Baso % (Auto) 1.1 H, Absolute Neuts (auto) 2.9, Absolute Lymphs (auto) 1.49, Nucleated RBC % 0 02/23/23 05:19: Sodium 139, Potassium 3.1 L, Chloride 108 H, Carbon Dioxide 25.0, Anion Gap 6, BUN 15, Creatinine 0.72, Estim Creat Clear Calc 86.86, Est GFR (MDRD) Af Amer 108, Est GFR (MDRD) Non-Af 89, BUN/Creatinine Ratio 20.8 H, Glucose 95, Calcium 9.1, Phosphorus 3.8, Magnesium 2.0, Total Bilirubin 1.00, Direct Bilirubin 0.38 H, AST 31, ALT 26, Alkaline Phosphatase 145 H, Total Protein 6.6, Albumin 2.9 L, Globulin 3.7 D/C Instructions Discharge Diet: No restrictions Discharge Activity: Return to Normal Activity Call your doctor if you observe: Fever of 101 or Higher, Shortness of breath, Fainting spells and Chest pain Meaningful Use Info Meaningful Use Diagnoses (Choose all that apply): None applicable Discharge Plan Admission Admit Date/Time: 02/20/23 22:36 Attending Provider: Ervin Blevins Primary Care Provider: Luz Dhaliwal NP Consulting Providers: Pineda Slater ; Hua May Discharge Orders/Prescriptions Prescriptions: Continued furosemide 20 mg tablet 20 mg PO TID propranolol 10 mg tablet 20 mg PO TID Xifaxan 550 mg tablet 550 mg PO BID Label Comments: TAKE 1 TABLET BY MOUTH TWICE DAILY citalopram 40 mg tablet 40 mg PO DAILY quetiapine [Seroquel] 50 mg tablet 100 mg PO QHS bupropion HCl 300 mg tablet extended release 24 hr 300 mg PO DAILY Label Comments: take 1 tablet by mouth once daily spironolactone 25 mg Tablet 50 mg PO DAILY 30 Days Qty: 60 2RF Rx Instructions: Hold if serum potassium more than 5.0. ferrous sulfate 325 mg (65 mg iron) tablet 325 mg PO QODAY Qty: 30 0RF lactulose 10 gram/15 mL solution 30 ml PO TID Qty: 473 2RF Rx Instructions: Titrate the dose of lactulose to have a goal of 2-3 soft bowel movements per day buspirone 10 mg tablet 10 - 20 mg PO TID PRN PRN (Reason: Anxiety) Label Comments: take 2 tablets by mouth three times a day if needed ondansetron 4 mg tablet,disintegrating 4 mg PO PRN PRN (Reason: Nausea) prazosin 1 mg capsule 3 mg PO QHS Label Comments: TAKE 3 CAPSULES BY MOUTH AT BEDTIME ursodiol 300 mg capsule 300 mg PO BID Qty: 180 3RF Discontinued oxycodone 5 mg tablet 5 mg PO Q6H PRN (Reason: pain) 3 Days Qty: 12 0RF diazepam [Valium] 10 mg tablet 10 mg PO .COMPLEX Qty: 1 0RF Rx Instructions: take 1 hour prior to MRI Referrals / Follow Up: Luz Dhaliwal CROSS [employer]IE MAKER, CR[employer] MAKER-C [Primary Care Provider] - In 1 Week Disposition Disposition (needs filled in before D/C Order can be placed): Home, Self Care Charges/Coding Visit Charges Inpatient E&M: 06674 Disch Hosp >30min
--- NOTE | 2023-02-23 09:20 | PHA.DC.MR ---
Pharmacy Service has performed discharge medication reconciliation for this patient. The patient's discharge medication list was reviewed for discrepancies and discrepancies were resolved. Home Medications citalopram 40 mg tablet 40 mg PO DAILY depression 10/28/22 furosemide 20 mg tablet 20 mg PO TID diuretic 10/28/22 propranolol 10 mg tablet 20 mg PO TID tremors 10/28/22 quetiapine 50 mg tablet (Seroquel) 100 mg PO QHS sleep 10/28/22 rifaximin 550 mg tablet (Xifaxan) 550 mg PO BID cirrhosis 10/28/22 bupropion HCl 300 mg 24 hr tablet, extended release 300 mg PO DAILY depression 11/18/22 ferrous sulfate 325 mg (65 mg iron) tablet 325 mg PO QODAY supplement #30 tabs 11/20/22 lactulose 10 gram/15 mL oral solution 30 ml PO TID cirrhosis #473 mL 11/20/22 spironolactone 25 mg tablet 50 mg PO DAILY 30 days #60 tabs 11/20/22 ursodiol 300 mg capsule 300 mg PO BID #180 caps 12/15/22 buspirone 10 mg tablet 10 - 20 mg PO TID PRN PRN Anxiety 12/17/22 ondansetron 4 mg disintegrating tablet 4 mg PO PRN PRN Nausea 12/17/22 prazosin 1 mg capsule 3 mg PO QHS 02/20/23
[2023-02-23] MEDS: Potassium Chloride Oral Tablet 20 MEQ PO (10:13)
[2023-02-23] MEDS: Citalopram 40 MG TABLET PO (10:14)
[2023-02-23] MEDS: Potassium Chloride 10mEq/100mL 10 MEQ/100 ML IV.SOLN. 100 MEQ IV BOLUS ×4 (10:14→13:42)
[2023-02-23] MEDS: Spironolactone 50 MG Tablet PO (10:14)
[2023-02-23] MEDS: buPROPion (XL) 300 MG TABLET.XL PO (10:15)
[2023-02-23] MEDS: Ursodiol 250 MG Tablet PO (10:15)
[2023-02-23] MEDS: rifAXIMin 550 MG Tablet PO (10:15)
[2023-02-23] MEDS: 0.9% Saline Lock 10 ML Syringe IV (10:15)
[2023-02-23] MEDS: Enoxaparin 40 MG/0.4 ML Syringe SC (10:15)
--- NOTE | 2023-02-23 11:55 | CASEMGMT ---
Addendum entered by Adriana Root 02/23/23 13:39: Pt made BECKA CM aware that when her IV is done, she will call her insurance back and they will dispatch someone to transport her home. Addendum entered by Adriana Root 02/23/23 13:33: BECKA JESSICA into pt room to make aware that [facility] van cannot transport her home. Pt states that her brother does not get off work until 8pm and cannot pick her up because he has to be back at work at 4am. She states she has no other contacts locally. Pt states she does not have funds to obtain a taxi unless they take her food stamps. Pt states other hospitals has paid for a taxi for her. Spoke with SW, recommend pt calling her insurance. BECKA JESSICA back into pt room, provided her with the phone number to her insurance. She states she will call and then notify this RN CM of her findings. Original Note: RN ARACELY into pt room, pt lying in bed. She states she does not have transportation home. Pt is interested in the hospital van to take her home. Made her aware this RN CM will check and see if they have availability. Pt states she has a [employer] CM named Natalie who is working on getting pt a walker and a shower chair. Pt states she doesn't need it currently but it is in process in case she does. Pt states she is in need of an aide to stay with her while her brother is not home. She is unsure if she has been evaluated for these services yet. Discussed HHC with patient, she declines this and states this is not what is needed. She states she had this before and it wasn't for me. Pt denies any further homegoing needs. TC to [facility] transportation, they do not have availability to transport pt home.
[2023-02-23 14:00] VITALS: BP 140/69; PULSE 64; RESP 18; TEMP 37.2; O2SAT 95
[2023-02-23 15:24] VITALS: BP 140/69; PULSE 64; RESP 16; TEMP 37.2; O2SAT 95
--- NOTE | 2023-02-23 18:57 | NURSING ---
pt's ride here and dc'd home with all belongings.
--- NOTE | 2023-02-24 17:05 | CASEMGMT ---
BECKA CM: Pt returned call made in follow-up to pt's discharge. Pt states she is doing well since discharge and inquired about need for continued antibiotics for her UTI and for a script for lactulose as she is almost out of doses. Pt states she has an appointment with Dr. Ramos next week and plans to call her PCP to schedule a follow-up appointment. Backline sent to Dr. Blevins with pt's requests. States he will send in a script for lactulose in the AM and states pt completed the necessary antibiotics while hospitalized and does not require any additional following DC. Will follow-up with pt. Verónica Hooks RN CM
--- NOTE | 2023-02-25 12:39 | CASEMGMT ---
BECKA JESSICA Follow-up: Dr. Blevins sent script for Lactulose to pt's pharmacy. Call placed to pt and pt identifying voicemail received and message left informing pt of script and that tx for UTI had been completed. Return call information also provided if pt has any additional questions. Verónica Hooks RN CM
== END 2023-02-23 18:47 | disposition home or self-care (01) | DRG 280 ==
LOC: ED 22:24 → PCU 23:12 → MS3 02-22 16:40
PROVIDERS: Admitting Provider Hospitalist; Emergency Provider Emergency Medicine; PCP Nurse Practitioner Family; Visit Provider Internal Medicine
DX: K76.82 Hepatic encephalopathy (principal); K70.30 Alcoholic cirrhosis of liver without ascites; D69.6 Thrombocytopenia, unspecified; E66.01 Morbid (severe) obesity due to excess calories; D50.9 Iron deficiency anemia, unspecified; E87.6 Hypokalemia; F10.10 Alcohol abuse, uncomplicated; K76.6 Portal hypertension; Z68.41 Body mass index [BMI] 40.0-44.9, adult; K44.9 Diaphragmatic hernia without obstruction or gangrene; I86.4 Gastric varices; G25.0 Essential tremor; F43.10 Post-traumatic stress disorder, unspecified; Z87.891 Personal history of nicotine dependence; R16.1 Splenomegaly, not elsewhere classified; R09.02 Hypoxemia; F32.A Depression, unspecified; Y90.9 Presence of alcohol in blood, level not specified
CPT/HCPCS: 36415; 80048; 80053; 80076; 81001; 82140; 83605; 83735; 84100; 85025; 85610; 85730; 97162; 97166; 99283; J7030; J7050; A4216; J0696

== ENCOUNTER 2023-03-22 19:14 | Emergency (ER) | payer MEDICAID, SELFPAY ==
[2023-03-22 19:15] VITALS: BP 122/74; PULSE 59; RESP 18; TEMP 36.4; O2SAT 99; BMI 45.1
[2023-03-22 19:48] VITALS: PULSE 60; RESP 12
[2023-03-22 20:11] LABS: Absolute Lymphocyte Count 1.09 X10^3/uL (0.83-4.51); Absolute Neutrophil Count 2.4 X10^3/uL (2.0-7.7); Basophil# 0.04 X10^3/uL; Basophil% 0.9 % (0-1); Eosinophil# 0.26 X10^3/uL; Eosinophils% 5.8 % (0-5); Hematocrit 41.6 % (37-47); Lymphocyte # 1.09 X10^3/ul (0.83-4.51); Lymphocyte % 24.4 % (19-41); Mean Corp Hgb Conc 33.7 g/dL (32-36); Mean Corpuscular Hgb 32.5 pg (27.0-32.0); Mean Corpuscular Volume 96.5 fL (81-99); Mean Platelet Vol. 10.8 fl (6.2-12.0); Monocyte# 0.62 X10^3/uL; Monocyte% 13.9 % (0-10); NRBC Flagged by Analyzer 0 % (0-5); Neutrophil # 2.44 X10^3/uL (2.7-7.7); Neutrophil % 54.8 % (47-70); POSITIVE COUNT YES; Platelet Count 87 K/mm3 (150-450); RBC Distribution Width CV 14.8 % (11.6-14.6); Red Blood Count 4.31 M/mm3 (4.2-5.4); White Blood Count 4.5 K/mm3 (4.4-11.0)
[2023-03-22 20:25] LABS: ALB/GLOB Ratio 0.8 RATIO (0.9-2.4); AST(SGOT) 25 U/L (15-37); Alanine Aminotransfer ALT/SGPT 21 U/L (13-56); Alkaline Phosphatase 212 U/L (45-117); Anion Gap 7 (5-15); BUN 10 mg/dL (7-18); BUN/Creat Ratio 11.8 RATIO (10-20); Calcium,Total 9.5 mg/dL (8.5-10.1); Chloride 108 mmol/L (98-107); Creatinine, Serum 0.85 mg/dL (0.55-1.02); EST Glomerular Filtration Rate 74 mL/min (>60); Est Glom Filt Rate - Afr Amer 89 mL/min (>60); Estimated Creatinine Clearance 73.58 ml/min; Globulin 3.6 g/dL (2.2-4.2); Glucose 151 mg/dL (74-106); Potassium 4.3 mmol/L (3.5-5.1); Protein, Total 6.6 g/dL (6.4-8.2); Sodium Level 142 mmol/L (136-145)
[2023-03-22 21:17] VITALS: BP 112/58; BP 114/61; BP 127/80; PULSE 59; PULSE 60; PULSE 70
--- NOTE | 2023-03-22 21:27 | EDS_ITS ---
HPI History of Present Illness Chief Complaint: Abn Labs Narrative Narrative: 52-year-old female with history of hepatic encephalopathy and cirrhosis presenting due to concern that her ammonia level might be high. She states that sometimes is between 160 and 180s. Her brother accompanied her here today because if she calls 911 she will be transported to [facility] in [place]. She states that they always send her home and then her brother has to bring her to [facility]. She states she seen Dr. Ramos in the past but has been lost to follow-up a couple of times because she was in the hospital during her appointments. She did make an appointment to see a new GI specialist and has not seen this person yet. The GI person is in the [facility] system. Patient states that she is always shaky but she is a little more shaky today. Per her brother she is minimally confused but is concerned she might get worse. [facility] Medical History Acidosis Alcohol abuse Alcohol use Alcoholic cirrhosis of liver without ascites Anxiety and depression Bipolar disorder Cirrhosis Depression Easy bruising Edema Eosinophilia, unspecified Essential (primary) hypertension Former smoker Gastric reflux Hepatic encephalopathy Hepatitis History of edema History of IBS History of pain when walking Hx of scarlet fever Immunity status testing Iron deficiency anemia Lactic acidosis Low urine output Neutropenia Pancytopenia Portal hypertension Post-menopausal Restless legs Shortness of breath on exertion Splenomegaly Thrombocytopenia Urea cycle metabolism disorder UTI (urinary tract infection) Wears dentures Wears glasses Home Medications citalopram 40 mg tablet 40 mg PO DAILY depression 10/28/22 [History Last Taken Unknown] furosemide 20 mg tablet 20 mg PO TID diuretic 10/28/22 [History Last Taken Unknown] propranolol 10 mg tablet 20 mg PO TID tremors 10/28/22 [History Last Taken Unkno wn] quetiapine 50 mg tablet (Seroquel) 100 mg PO QHS sleep 10/28/22 [History Last Taken Unknown] rifaximin 550 mg tablet (Xifaxan) 550 mg PO BID cirrhosis 10/28/22 [History Last Taken Unknown] bupropion HCl 300 mg 24 hr tablet, extended release 300 mg PO DAILY depression 11/18/22 [History Last Taken Unknown] ferrous sulfate 325 mg (65 mg iron) tablet 325 mg PO QODAY supplement #30 tabs 11/20/22 [Rx Last Taken Unknown] spironolactone 25 mg tablet 50 mg PO DAILY 30 days #60 tabs 11/20/22 [Rx Last Taken Unknown] ursodiol 300 mg capsule 300 mg PO BID #180 caps 12/15/22 [Rx Last Taken Unknown] buspirone 10 mg tablet 10 - 20 mg PO TID PRN PRN Anxiety 12/17/22 [History Last Taken Unknown] ondansetron 4 mg disintegrating tablet 4 mg PO PRN PRN Nausea 12/17/22 [History Last Taken Unknown] prazosin 1 mg capsule 3 mg PO QHS 02/20/23 [History Last Taken Unknown] lactulose 10 gram/15 mL oral solution 30 ml PO TID cirrhosis 60 days #473 mL 02/25/23 [Rx Last Taken Unknown] ondansetron 4 mg disintegrating tablet 4 mg PO Q8H PRN PRN Nausea #14 tabs 03/22/23 [Rx Last Taken Unknown] Allergy/AdvReac Type Severity Reaction Status Date / Time No Known Allergies Allergy Verified 03/22/23 19:15 Family History Grandmother Breast cancer Surgical History History of ankle surgery Hx of section Hx of cholecystectomy Hx of hand surgery Hx of shoulder surgery Hx of total knee replacement Social History Smoking Status: Former smoker Electronic Cigarette Use: with nicotine how long ago did patient quit smoking: Transitioned from cig tob to vaping, hea vy currently. alcohol intake: former year quit: 2021 details: 11/26/21 substance use type: other details: Former amphetamine/meth use, clean since 11/26/21. ROS ROS ED Constitutional Constitutional ED: Denies chills or fever(s) Eyes Eyes: Denies blurry vision or change in vision ENT ENT ED: Denies rhinorrhea or sore throat Cardiovascular Cardiovascular: Denies chest pain or palpitations Respiratory/Chest Respiratory/Chest: Denies cough or dyspnea Gastrointestinal Gastrointestinal: Reports nausea; Denies abdominal pain or constipation Genitourinary Genitourinary ED: Denies dysuria or hematuria Musculoskeletal Musculoskeletal: Denies arthralgias or back pain Integumentary Denies abscess EXAM Physical Exam Const Vital Signs: 03/22/23 19:15 03/22/23 19:48 03/22/23 19:48 Temperature 97.6 F L Temperature Source Temporal Pulse Rate 59 L 60 Pulse Rate [Lying] Pulse Rate [Sitting (for 1 minute prior to obtaining)] Pulse Rate [Standing (for 1 minute prior to obtaining)] Respiratory Rate 18 12 Respiratory Pattern Normal Blood Pressure 122/74 H Blood Pressure [Lying] Blood Pressure [Sitting (for 1 minute prior to obtaining)] Blood Pressure [Standing (for 1 minute prior to obtaining)] Blood Pressure Mean 90 Blood Pressure Mean [Lying] Blood Pressure Mean [Sitting (for 1 minute prior to obtaining)] Blood Pressure Mean [Standing (for 1 minute prior to obtaining)] Pulse Ox 99 Oxygen Delivery Method Room Air 03/22/23 21:17 03/22/23 21:28 Temperature Temperature Source Pulse Rate 60 Pulse Rate [Lying] 59 L Pulse Rate [Sitting (for 1 minute prior to obtaining)] 60 Pulse Rate [Standing (for 1 minute prior to obtaining)] 70 Respiratory Rate 16 Respiratory Pattern Blood Pressure Blood Pressure [Lying] 114/61 Blood Pressure [Sitting (for 1 minute prior to obtaining)] 112/58 L Blood Pressure [Standing (for 1 minute prior to obtaining)] 127/80 H Blood Pressure Mean Blood Pressure Mean [Lying] 78 Blood Pressure Mean [Sitting (for 1 minute prior to obtaining)] 76 Blood Pressure Mean [Standing (for 1 minute prior to obtaining)] 95 Pulse Ox 95 Oxygen Delivery Method Positive well nourished General Appearance ED: NAD; Negative for pallor HEENT Reports moist mucous membranes Negative for trauma Eyes PERRL and EOMs intact bilaterally Chest Wall inspection of chest normal Resp normal respiratory effort and clear to auscultation bilaterally Effort and Inspection: Negative for retractions Auscultation: Negative for rales or rhonchi Cardio regular rate and regular rhythm GI normal to inspection, nondistended, normoactive bowel sounds Extremity normal to inspection Neuro oriented x3 and CN's II-XII intact bilaterally Sensorium / Orientation: alert Psych mental status grossly normal Skin no rashes or lesions noted and no wounds General Skin Exam: Negative for elasticity normal, jaundice or pallor MDM MDM MDM Narrative Medical decision making narrative: 52-year-old female with history of hepatic encephalopathy she is alert and awake and in no acute distress. She speaking in full sentences and she does not appear to be confused at all. She states that she is shaky but I do not see any shakiness. States he for the lightheaded as well. Orthostatic vital signs were negative. I obtained lab work and her CBC and CMP are fairly unremarkable with exception of an alkaline phosphatase of 212. Ammonia level is 160 and this is the highest that we have in our system here but she states that she has been between 160 and 180. I discussed the case with Dr. Ramos who cares for her and he stated that there really is not a reason to keep her in the hospital as she would probably just need to increase her lactulose. He recommended that she take this every hour for the rest of the evening and when she goes to bed and then tomorrow. After that she should be taking this 4 times a day. Patient is amenable to this. She states he has plenty of lactulose leftover. Return precautions were discussed. Impression: 1. Elevated ammonia level 2. History of cirrhosis Lab Data Labs: Laboratory Results - last 24 hr 03/22/23 03/22/23 03/22/23 20:00 20:00 20:00 WBC 4.5 RBC 4.31 Hgb 14.0 Hct 41.6 MCV 96.5 MCH 32.5 H MCHC 33.7 RDW Std Deviation 53.0 H RDW Coeff of Stephon 14.8 H Plt Count 87 L MPV 10.8 Immature Gran % (Auto) 0.200 Neut % (Auto) 54.8 Lymph % (Auto) 24.4 [place] % (Auto) 13.9 H Eos % (Auto) 5.8 H Baso % (Auto) 0.9 Absolute Neuts (auto) 2.4 Absolute Lymphs (auto) 1.09 Nucleated RBC % 0 Sodium 142 Potassium 4.3 Chloride 108 H Carbon Dioxide 27.0 Anion Gap 7 BUN 10 Creatinine 0.85 Estim Creat Clear Calc 73.58 Est GFR (MDRD) Af Amer 89 Est GFR (MDRD) Non-Af 74 BUN/Creatinine Ratio 11.8 Glucose 151 H Calcium 9.5 Total Bilirubin 0.70 AST 25 ALT 21 Alkaline Phosphatase 212 H Ammonia 160.0 H Total Protein 6.6 Albumin 3.0 L Globulin 3.6 Albumin/Globulin Ratio 0.8 L Discharge Plan Triage Chief Complaint: Abn Labs ED Provider: Oni Valle Dx/Rx/DC Orders Instructions: Hepatic Encephalopathy Prescriptions: New ondansetron 4 mg tablet,disintegrating 4 mg PO Q8H PRN PRN (Reason: Nausea) Qty: 14 0RF No Action furosemide 20 mg tablet 20 mg PO TID propranolol 10 mg tablet 20 mg PO TID Xifaxan 550 mg tablet 550 mg PO BID Label Comments: TAKE 1 TABLET BY MOUTH TWICE DAILY citalopram 40 mg tablet 40 mg PO DAILY quetiapine [Seroquel] 50 mg tablet 100 mg PO QHS bupropion HCl 300 mg tablet extended release 24 hr 300 mg PO DAILY Label Comments: take 1 tablet by mouth once daily spironolactone 25 mg Tablet 50 mg PO DAILY 30 Days Qty: 60 2RF Rx Instructions: Hold if serum potassium more than 5.0. ferrous sulfate 325 mg (65 mg iron) tablet 325 mg PO QODAY Qty: 30 0RF buspirone 10 mg tablet 10 - 20 mg PO TID PRN PRN (Reason: Anxiety) Label Comments: take 2 tablets by mouth three times a day if needed ondansetron 4 mg tablet,disintegrating 4 mg PO PRN PRN (Reason: Nausea) prazosin 1 mg capsule 3 mg PO QHS Label Comments: TAKE 3 CAPSULES BY MOUTH AT BEDTIME lactulose 10 gram/15 mL solution 30 ml PO TID 60 Days Qty: 473 2RF Rx Instructions: Titrate the dose of lactulose to have a goal of 2-3 soft bowel movements per day ursodiol 300 mg capsule 300 mg PO BID Qty: 180 3RF Primary Care Provider: Luz Dhaliwal NP Referrals: Samir Ramos DO [Med Staff - Active Staff] - 3-5 Days Luz Dhaliwal NP, WEASAND TRIMMER-C [Primary Care Provider] - Disposition Disposition: Home, Self Care Discharge Date/Time: 03/22/23 21:53
[2023-03-22 21:28] VITALS: PULSE 60; RESP 16; O2SAT 95
== END 2023-03-22 21:53 | disposition home or self-care (01) ==
PROVIDERS: Emergency Provider Student in an Organized Health Care Education/Training Program; PCP Nurse Practitioner Family; Visit Provider Student in an Organized Health Care Education/Training Program
DX: R79.9 Abnormal finding of blood chemistry, unspecified (principal); K74.60 Unspecified cirrhosis of liver; I10 Essential (primary) hypertension; Z87.891 Personal history of nicotine dependence; F41.8 Other specified anxiety disorders; Z79.899 Other long term (current) drug therapy; Z90.49 Acquired absence of other specified parts of digestive tract; Z96.659 Presence of unspecified artificial knee joint
CPT/HCPCS: 80053; 82140; 85025; 99284

== ENCOUNTER 2023-04-07 17:28 | Emergency (ER) | payer MEDICAID, SELFPAY ==
[2023-04-07 17:29] VITALS: BP 137/69; PULSE 56; RESP 16; TEMP 36.6; O2SAT 93; BMI 44.1
--- NOTE | 2023-04-07 17:47 | EKG12_ITS ---
Test Reason : CONFUSION Blood Pressure : / mmHG Vent. Rate : 055 BPM Atrial Rate : 055 BPM P-R Int : 174 ms QRS Dur : 086 ms QT Int : 438 ms P-R-T Axes : 024 032 019 degrees QTc Int : 419 ms Sinus bradycardia Otherwise normal ECG Confirmed by EDMAR RICCI, RONAL ([id number]), art editor MAGDALENE DUBON ([id number]) on 04/09/2023 10:17:34 AM Referred By: Confirmed By:RONAL HYATT MD
--- NOTE | 2023-04-07 17:50 | EX.ED.DYSGE1 ---
HPI History of Present Illness Chief Complaint: Abn Labs Detail of Chief Complaint: Concern for elevated ammonia Informant: patient and family Narrative Narrative: Patient presents with her brother due to concern for elevated ammonia. She has a history of cirrhosis and hepatic encephalopathy. Brother states that she is loopy today and has had some intermittent nausea and vomiting. She is taking her lactulose at least 4 times a day if not more and having diarrhea with this. Patient was seen on April 22 and found to have an ammonia elevated to 160. She was alert and appropriate at that time. She was advised to increase her lactulose but family states that her levels have not been rechecked since that time. [facility] Medical History Acidosis Alcohol abuse Alcohol use Alcoholic cirrhosis of liver without ascites Anxiety and depression Bipolar disorder Cirrhosis Depression Easy bruising Edema Eosinophilia, unspecified Essential (primary) hypertension Former smoker Gastric reflux Hepatic encephalopathy Hepatitis History of edema History of IBS History of pain when walking Hx of scarlet fever Immunity status testing Iron deficiency anemia Lactic acidosis Low urine output Neutropenia Pancytopenia Portal hypertension Post-menopausal Restless legs Shortness of breath on exertion Splenomegaly Thrombocytopenia Urea cycle metabolism disorder UTI (urinary tract infection) Wears dentures Wears glasses Home Medications citalopram 40 mg tablet 40 mg PO DAILY depression 10/28/22 [History Last Taken Unknown] furosemide 20 mg tablet 20 mg PO TID diuretic 10/28/22 [History Last Taken Unknown] propranolol 10 mg tablet 20 mg PO TID tremors 10/28/22 [History Last Taken Unknown] quetiapine 50 mg tablet (Seroquel) 100 mg PO QHS sleep 10/28/22 [History Last Taken Unknown] rifaximin 550 mg tablet (Xifaxan) 550 mg PO BID cirrhosis 10/28/22 [History Last Taken Unknown] bupropion HCl 300 mg 24 hr tablet, extended release 300 mg PO DAILY depression 11/18/22 [History Last Taken Unknown] ferrous sulfate 325 mg (65 mg iron) tablet 325 mg PO QODAY supplement #30 tabs 11/20/22 [Rx Last Taken Unknown] spironolactone 25 mg tablet 50 mg PO DAILY 30 days #60 tabs 11/20/22 [Rx Last Taken Unknown] ursodiol 300 mg capsule 300 mg PO BID #180 caps 12/15/22 [Rx Last Taken Unknown] buspirone 10 mg tablet 10 - 20 mg PO TID PRN PRN Anxiety 12/17/22 [History Last Taken Unknown] ondansetron 4 mg disintegrating tablet 4 mg PO PRN PRN Nausea 12/17/22 [History Last Taken Unknown] prazosin 1 mg capsule 3 mg PO QHS 02/20/23 [History Last Taken Unknown] lactulose 10 gram/15 mL oral solution 30 ml PO TID cirrhosis 60 days #473 mL 02/25/23 [Rx Last Taken Unknown] ondansetron 4 mg disintegrating tablet 4 mg PO Q8H PRN PRN Nausea #14 tabs 03/22/23 [Rx Last Taken Unknown] dicyclomine 20 mg tablet 20 mg PO BID PRN abdominal pain #14 tabs 04/07/23 [Rx Last Taken Unknown] lactulose 10 gram/15 mL oral solution 30 ml PO Q6H #946 mL 04/07/23 [Rx Last Taken Unknown] Allergy/AdvReac Type Severity Reaction Status Date / Time No Known Allergies Allergy Verified 04/07/23 17:29 Family History Grandmother Breast cancer Surgical History History of ankle surgery Hx of section Hx of cholecystectomy Hx of hand surgery Hx of shoulder surgery Hx of total knee replacement Social History Smoking Status: Never smoker Electronic Cigarette Use: with nicotine how long ago did patient quit smoking: Transitioned from cig tob to vaping, heavy currently. alcohol intake: former year quit: 2021 details: 11/26/21 substance use type: other details: Former amphetamine/meth use, clean since 11/26/21. ROS ROS ED Constitutional Constitutional ED: Denies chills or fever(s) Eyes Eyes: Denies change in vision or discharge from eye(s) ENT ENT ED: Denies discharge from eye(s), rhinorrhea or sore throat Cardiovascular Cardiovascular: Denies chest pain or palpitations Respiratory/Chest Respiratory/Chest: Denies cough or dyspnea Gastrointestinal Gastrointestinal: Reports diarrhea, nausea and vomiting Genitourinary Genitourinary ED: Denies difficulty urinating or dysuria Musculoskeletal Musculoskeletal: Denies back pain or extremity pain Integumentary Denies Abrasions or rash Neurologic Neurologic: Denies headache(s) or weakness Psychiatric Psychiatric: Denies anxiety or depression Allergic/Immunologic Allergic/Immunologic ED: Denies lip swelling or urticaria EXAM Physical Exam Const Vital Signs: 04/07/23 17:29 04/07/23 17:50 04/07/23 20:13 Temperature 98 F Temperature Source Temporal Pulse Rate 56 L 53 L Respiratory Rate 16 17 Respiratory Pattern Normal Blood Pressure 137/69 H 130/64 H Blood Pressure Mean 91 86 Pulse Ox 93 93 Oxygen Delivery Method Room Air Room Air Positive well nourished and well developed General Appearance ED: well developed HEENT Reports normocephalic and head/scalp atraumatic Eyes PERRL and EOMs intact bilaterally Neck supple Chest Wall inspection of chest normal and palpation of chest normal Resp normal respiratory effort and clear to auscultation bilaterally Cardio regular rate and regular rhythm GI normal to inspection, nondistended, normoactive bowel sounds Palpation: soft Extremity normal to inspection Neuro oriented x3 and no sensory deficits noted Sensorium / Orientation: alert Motor Exam: strength 5/5 throughout Psych mental status grossly normal Skin no rashes or lesions noted MDM MDM MDM Narrative Medical decision making narrative: EKG obtained to evaluate for cardiac arrhythmia/ischemia. Labwork obtained to evaluate for leukocytosis, anemia, and electrolyte derangement. Urinalysis obtained to evaluate for infection/hematuria. Lab Data Attestation: I reviewed the patient's lab results. Labs: Laboratory Results - last 24 hr 04/07/23 04/07/23 04/07/23 18:00 18:00 18:00 WBC 7.5 RBC 4.47 Hgb 14.8 Hct 42.8 MCV 95.7 MCH 33.1 H MCHC 34.6 RDW Std Deviation 50.2 H RDW Coeff of Stephon 14.3 Plt Count 87 L MPV 11.1 Immature Gran % (Auto) 0.100 Neut % (Auto) 58.8 Lymph % (Auto) 19.3 [place] % (Auto) 14.4 H Eos % (Auto) 6.7 H Baso % (Auto) 0.7 Absolute Neuts (auto) 4.4 Absolute Lymphs (auto) 1.45 Nucleated RBC % 0 Sodium 138 Potassium 4.5 Chloride 110 H Carbon Dioxide 25.0 Anion Gap 3 L BUN 10 Creatinine 0.80 Estim Creat Clear Calc 78.18 Est GFR (MDRD) Af Amer 96 Est GFR (MDRD) Non-Af 79 BUN/Creatinine Ratio 12.5 Glucose 117 H Calcium 10.1 Total Bilirubin 1.50 H Direct Bilirubin 0.46 H AST 27 ALT 23 Alkaline Phosphatase 159 H Ammonia 77.0 H Total Protein 6.7 Albumin 3.0 L Globulin 3.7 Lipase 40 Urine Color Urine Clarity Urine pH Ur Specific [place] Urine Protein Urine Glucose (UA) Urine Ketones Urine Occult Blood Urine Nitrite Urine Bilirubin Urine Urobilinogen Ur Leukocyte Esterase Urine RBC Urine WBC Ur Squamous Epith Cells Urine Bacteria Urine Mucus 04/07/23 18:42 WBC RBC Hgb Hct MCV MCH MCHC RDW Std Deviation RDW Coeff of Stephon Plt Count MPV Immature Gran % (Auto) Neut % (Auto) Lymph % (Auto) [place] % (Auto) Eos % (Auto) Baso % (Auto) Absolute Neuts (auto) Absolute Lymphs (auto) Nucleated RBC % Sodium Potassium Chloride Carbon Dioxide Anion Gap BUN Creatinine Estim Creat Clear Calc Est GFR (MDRD) Af Amer Est GFR (MDRD) Non-Af BUN/Creatinine Ratio Glucose Calcium Total Bilirubin Direct Bilirubin AST ALT Alkaline Phosphatase Ammonia Total Protein Albumin Globulin Lipase Urine Color Yellow Urine Clarity Clear Urine pH 7.0 Ur Specific [place] 1.010 Urine Protein 15 H Urine Glucose (UA) Normal Urine Ketones Negative Urine Occult Blood 10 H Urine Nitrite Negative Urine Bilirubin Negative Urine Urobilinogen 1 H Ur Leukocyte Esterase Negative Urine RBC 0 SEEN Urine WBC 0 SEEN Ur Squamous Epith Cells 0-5 SEEN Urine Bacteria 0 SEEN Urine Mucus 0 SEEN Radiography Diagnostic Testing: Clinical Impression(s) from Imaging Studies Chest X-Ray 04/07/23 18:15 IMPRESSION: Lower lung atelectasis or infiltrates. Hiatal hernia. Electronically Signed: Shaun Garsia MD at 18:32 EDT , Abdomen/Pelvis CT 04/07/23 19:35 IMPRESSION: Cirrhotic liver. Abdominal varices. Splenomegaly. Hiatal hernia. Electronically Signed: Shaun Garsia MD at 20:16 EDT , EKG Initial EKG: Interpretation: Sinus Bradycardia (Sinus bradycardia 55 bpm. QTc is 419. No acute ischemia.) Treatment and Re-Evaluation :: CBC was normal white count and hemoglobin. Chemistry studies reveal normal renal function. Total bilirubin is 1.5 and direct bilirubin 0.46. Alk phos is 159. Ammonia is 77. This is compared to an ammonia level of 160 on March 22. Urinalysis reveals no evidence of acute infection. Patient started complaining of increased nausea and abdominal cramping. She was given a dose of Zofran along with Bentyl. CT scan of the abdomen pelvis with IV contrast obtained to ensure no evidence of diverticulitis. This reveals evidence of a cirrhotic liver and hiatal hernia but no other acute findings noted. I discussed with patient and brother at bedside the patient may very well have a viral gastroenteritis superimposed on her chronic diarrhea from her lactulose use. At this time I see no evidence of acute infection. I will write her for some Bentyl for home as well as another prescription for lactulose as she states she is almost out. Discharge Plan Triage Chief Complaint: Abn Labs ED Provider: Carla Landis Dx/Rx/DC Orders Clinical Impression: Abdominal pain Instructions: ED Abdominal Pain Unkn Cause Fem Prescriptions: New lactulose 10 gram/15 mL solution 30 ml PO Q6H Qty: 946 0RF dicyclomine 20 mg tablet 20 mg PO BID PRN (Reason: abdominal pain) Qty: 14 0RF No Action furosemide 20 mg tablet 20 mg PO TID propranolol 10 mg tablet 20 mg PO TID Xifaxan 550 mg tablet 550 mg PO BID Label Comments: TAKE 1 TABLET BY MOUTH TWICE DAILY citalopram 40 mg tablet 40 mg PO DAILY quetiapine [Seroquel] 50 mg tablet 100 mg PO QHS bupropion HCl 300 mg tablet extended release 24 hr 300 mg PO DAILY Label Comments: take 1 tablet by mouth once daily spironolactone 25 mg Tablet 50 mg PO DAILY 30 Days Qty: 60 2RF Rx Instructions: Hold if serum potassium more than 5.0. ferrous sulfate 325 mg (65 mg iron) tablet 325 mg PO QODAY Qty: 30 0RF buspirone 10 mg tablet 10 - 20 mg PO TID PRN PRN (Reason: Anxiety) Label Comments: take 2 tablets by mouth three times a day if needed ondansetron 4 mg tablet,disintegrating 4 mg PO PRN PRN (Reason: Nausea) prazosin 1 mg capsule 3 mg PO QHS Label Comments: TAKE 3 CAPSULES BY MOUTH AT BEDTIME lactulose 10 gram/15 mL solution 30 ml PO TID 60 Days Qty: 473 2RF Rx Instructions: Titrate the dose of lactulose to have a goal of 2-3 soft bowel movements per day ondansetron 4 mg tablet,disintegrating 4 mg PO Q8H PRN PRN (Reason: Nausea) Qty: 14 0RF ursodiol 300 mg capsule 300 mg PO BID Qty: 180 3RF Primary Care Provider: Luz Dhaliwal NP Referrals: Luz Dhaliwal NP, [employer] [Primary Care Provider] - 1 Week if not improving Disposition Disposition: Home, Self Care
[2023-04-07] MEDS: 0.9% Normal Saline 1,000 ML 150 ML IV (18:11)
--- NOTE | 2023-04-07 18:15 | RAD_ITS ---
STUDY: X-RAY CHEST REASON FOR EXAM: Female, 52 years old. Cough TECHNIQUE: Single AP portable view of the chest. COMPARISON: January 05, 2023 FINDINGS: There are monitoring devices. There are mild lower lung linear increased opacities. There is no demonstrated pleural abnormality. Normal size heart. There is retrocardiac hiatal hernia. Normal visualized pulmonary arteries. Normal visualized aortic arch and descending thoracic aorta. Normal visualized thoracic spine. There is postoperative change of the right shoulder. There is no demonstrated abnormality of the visualized soft tissue structures of the upper abdomen. RAD/Chest 1 View (Portable) IMPRESSION: Lower lung atelectasis or infiltrates. Hiatal hernia. Electronically Signed: Shaun Garsia MD at 18:32 EDT ,
[2023-04-07 18:22] LABS: Absolute Lymphocyte Count 1.45 X10^3/uL (0.83-4.51); Absolute Neutrophil Count 4.4 X10^3/uL (2.0-7.7); Basophil# 0.05 X10^3/uL; Basophil% 0.7 % (0-1); Eosinophils% 6.7 % (0-5); Hematocrit 42.8 % (37-47); Hemoglobin 14.8 g/dL (12.0-15.0); Lymphocyte # 1.45 X10^3/ul (0.83-4.51); Lymphocyte % 19.3 % (19-41); Mean Corp Hgb Conc 34.6 g/dL (32-36); Mean Corpuscular Hgb 33.1 pg (27.0-32.0); Mean Corpuscular Volume 95.7 fL (81-99); Mean Platelet Vol. 11.1 fl (6.2-12.0); Monocyte# 1.08 X10^3/uL; Monocyte% 14.4 % (0-10); NRBC Flagged by Analyzer 0 % (0-5); Neutrophil # 4.41 X10^3/uL (2.7-7.7); Neutrophil % 58.8 % (47-70); POSITIVE COUNT YES; Platelet Count 87 K/mm3 (150-450); RBC Distribution Width CV 14.3 % (11.6-14.6); RBC Distribution Width SD 50.2 fl (35.1-43.9); Red Blood Count 4.47 M/mm3 (4.2-5.4); White Blood Count 7.5 K/mm3 (4.4-11.0)
[2023-04-07 18:30] LABS: AST(SGOT) 27 U/L (15-37); Alanine Aminotransfer ALT/SGPT 23 U/L (13-56); Alkaline Phosphatase 159 U/L (45-117); Anion Gap 3 (5-15); BUN 10 mg/dL (7-18); BUN/Creat Ratio 12.5 RATIO (10-20); Bilirubin, Direct 0.46 mg/dL (0.00-0.30); Calcium,Total 10.1 mg/dL (8.5-10.1); Chloride 110 mmol/L (98-107); EST Glomerular Filtration Rate 79 mL/min (>60); Est Glom Filt Rate - Afr Amer 96 mL/min (>60); Estimated Creatinine Clearance 78.18 ml/min; Globulin 3.7 g/dL (2.2-4.2); Glucose 117 mg/dL (74-106); Lipase 40 U/L (13-75); Potassium 4.5 mmol/L (3.5-5.1); Protein, Total 6.7 g/dL (6.4-8.2); Sodium Level 138 mmol/L (136-145)
[2023-04-07 18:47] LABS: Bacteria 0 SEEN /hpf (None Seen); Mucous, Urine 0 SEEN /hpf (<or=2+); Red Blood Cells-Urine 0 SEEN /hpf (0-5); White Blood Cells 0 SEEN /hpf (0-5)
[2023-04-07 18:49] LABS: Color, Urine Yellow (Yellow); Glucose, Dipstick Normal (Normal); Ketone-Dipstick Negative (Negative); Leukocyte Esterase-Dipstick Negative /ul (Negative); Nitrite-Dipstick Negative (Negative); Occult Blood-Urine 10 /ul (Negative); Protein-Dipstick 15 mg/dl (Negative); Urine Bilirubin Dipstick Negative (Negative); Urine Clarity Clear (Clear); Urine Urobilinogen 1 mg/dl (Normal)
[2023-04-07 18:54] LABS: Squamous Epithelial Cells - UA 0-5 SEEN /hpf (5-10)
--- NOTE | 2023-04-07 19:35 | CT_ITS ---
STUDY: CT ABDOMEN AND PELVIS WITH CONTRAST REASON FOR EXAM: Female, 52 years old. Abdominal pain RADIATION DOSAGE (If Supplied By Facility): CTDIvol = ( 17.07 ) mGy, DLP = ( 1314.31 ) mGycm TECHNIQUE: Transaxial images were obtained from the dome of the diaphragm to the symphysis pubis without oral contrast. IV 100mL [id number]-300 was administered. Sagittal and coronal images were reconstructed. Individualized dose optimization techniques were used for this CT. COMPARISON: January 11, 2023 FINDINGS: The visualized lung bases are unremarkable. The visualized portions of the heart are within normal limits. There is a diffuse contour abnormality of the liver consistent with cirrhotic changes. There are surgical clips in the gallbladder fossa consistent with a prior cholecystectomy. There is moderate splenomegaly. There are multiple abdominal and pelvic varices including splenorenal shunt. Normal pancreas. Normal bilateral adrenal glands. Normal right kidney. Normal left kidney. There is a moderate hiatal hernia. Normal small intestine. Normal colon. The appendix is visualized and appears normal. There is atherosclerotic calcification of the abdominal aorta, without a demonstrated aneurysm. 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 Normal retroperitoneum. Normal urinary bladder. Normal visualized uterus. There is no free fluid in the abdomen or pelvis. Normal abdominal wall. There is mild degenerative change of the spine. CT/Abdomen/Pelvis W IV Cont ONLY IMPRESSION: Cirrhotic liver. Abdominal varices. Splenomegaly. Hiatal hernia. Electronically Signed: Shaun Garsia MD at 20:16 EDT ,
[2023-04-07] MEDS: Dicyclomine 10 MG Capsule 20 MG PO (19:45)
[2023-04-07] MEDS: Ondansetron 4 MG/2 ML Vial IV (19:45)
[2023-04-07 20:13] VITALS: BP 130/64; PULSE 53; RESP 17; O2SAT 93
[2023-04-07] MEDS: Contrast Allergy Safety Check IV (21:03)
== END 2023-04-07 21:24 | disposition home or self-care (01) ==
PROVIDERS: Emergency Provider Emergency Medicine; PCP Nurse Practitioner Family; Visit Provider Emergency Medicine
DX: R10.9 Unspecified abdominal pain (principal); K74.60 Unspecified cirrhosis of liver; I10 Essential (primary) hypertension; Z79.899 Other long term (current) drug therapy; F41.8 Other specified anxiety disorders; Z90.49 Acquired absence of other specified parts of digestive tract; Z96.659 Presence of unspecified artificial knee joint; F17.290 Nicotine dependence, other tobacco product, uncomplicated
CPT/HCPCS: 71045; 74177; 80048; 80076; 81001; 82140; 83690; 85025; 93005; 96361; 96374; 99283; J7030; Q9967; A4216; J2405

== ENCOUNTER 2023-05-28 14:29 | Inpatient (IN) | payer MEDICAID, SELFPAY ==
[2023-05-28 14:24] VITALS: BP 148/73; PULSE 55; RESP 18; TEMP 36.4; O2SAT 94
--- NOTE | 2023-05-28 14:41 | PCM.HP.STD ---
HPI - General General Date of Admission: 05/28/23 Date of Service: 05/28/23 Chief Complaint: Altered mental status, direct transfer from [facility] ED HPI Narrative EVER VERDUZCO, is a 52 F who was directly admitted in PCU from [facility] ED for altered mental status. ER physician Dr. Robson Gandhi talked to Dr. May and accepted the patient. Patient has history of cirrhosis, liver cancer, anxiety depression substance use history. She has a history of multiple recurrent admissions. It is not clear that duration of altered mental status but patient had NG tube insertion and lactulose and 1 mg IV Ativan given in ED. Her vitals in ED was afebrile, pulse 63 respiration rate 14, blood pressure 134/56 pulse of 93% on room air. She has been unresponsive except to painful stimuli. In ED her ammonia level was high. History mainly taken from the review of the chart. Patient was last admitted in February 2023 for hepatic encephalopathy. She has chronic alcoholic cirrhosis decompensated with hepatic encephalopathy and thrombocytopenia. [place] [facility] [place] head and chest x-ray reviewed. Twelve-lead EKG sinus bradycardia 54 bpm, QTc 445 ms. [facility] Medical History (Updated 05/28/23 @ 14:[address] Placido Aponte MD) Acidosis Alcohol abuse Alcohol use Alcoholic cirrhosis of liver without ascites Anxiety and depression Bipolar disorder Cirrhosis Depression Easy bruising Edema Eosinophilia, unspecified Essential (primary) hypertension Former smoker Gastric reflux Hepatic encephalopathy Hepatitis History of edema History of IBS History of pain when walking Hx of scarlet fever Immunity status testing Iron deficiency anemia Lactic acidosis Low urine output Neutropenia Pancytopenia Portal hypertension Post-menopausal Restless legs Shortness of breath on exertion Splenomegaly Thrombocytopenia Urea cycle metabolism disorder UTI (urinary tract infection) Wears dentures Wears glasses Home Medications citalopram 40 mg tablet 40 mg PO DAILY depression 10/28/22 [History Last Taken Unknown] furosemide 20 mg tablet 20 mg PO TID diuretic 10/28/22 [History Last Taken Unknown] propranolol 10 mg tablet 20 mg PO TID tremors 10/28/22 [History Last Taken Unknown] quetiapine 50 mg tablet (Seroquel) 100 mg PO QHS sleep 10/28/22 [History Last Taken Unknown] rifaximin 550 mg tablet (Xifaxan) 550 mg PO BID cirrhosis 10/28/22 [History Last Taken Unknown] bupropion HCl 300 mg 24 hr tablet, extended release 300 mg PO DAILY depression 11/18/22 [History Last Taken Unknown] ferrous sulfate 325 mg (65 mg iron) tablet 325 mg PO QODAY supplement #30 tabs 11/20/22 [Rx Last Taken Unknown] spironolactone 25 mg tablet 50 mg (2 x 25 mg) PO DAILY 30 days #60 tabs 11/20/22 [Rx Last Taken Unknown] ursodiol 300 mg capsule 300 mg PO BID #180 caps 12/15/22 [Rx Last Taken Unknown] buspirone 10 mg tablet 10 - 20 mg PO TID PRN PRN Anxiety 12/17/22 [History Last Taken Unknown] prazosin 1 mg capsule 3 mg PO QHS 02/20/23 [History Last Taken Unknown] lactulose 10 gram/15 mL oral solution 30 ml PO TID cirrhosis 60 days #473 mL 02/25/23 [Rx Last Taken Unknown] ondansetron 4 mg disintegrating tablet 4 mg PO Q8H PRN PRN Nausea #14 tabs 03/22/23 [Rx Last Taken Unknown] dicyclomine 20 mg tablet 20 mg PO BID PRN abdominal pain #14 tabs 04/07/23 [Rx Last Taken Unknown] lactulose 10 gram/15 mL oral solution 30 ml PO Q6H #946 mL 04/07/23 [Rx Last Taken Unknown] loratadine 10 mg tablet (Claritin) 10 mg PO DAILY 04/19/23 [History Last Taken Unknown] Allergy/AdvReac Type Severity Reaction Status Date / Time No Known Allergies Allergy Verified 04/07/23 17:29 Family History Grandmother Breast cancer Surgical History History of ankle surgery Hx of section Hx of cholecystectomy Hx of hand surgery Hx of shoulder surgery Hx of total knee replacement Social History Smoking Status: Never smoker Electronic Cigarette Use: with nicotine how long ago did patient quit smoking: Transitioned from cig tob to vaping, heavy currently. alcohol intake: former year quit: 2021 details: 11/26/21 substance use type: other details: Former amphetamine/meth use, clean since 11/26/21. ROS ROS Narrative 14 system ROS not abdominal due to hepatic encephalopathy. Review of Systems ROS Unobtainable: due to encephalopathy Vital Signs Vital Signs Vital Signs: 05/28/23 14:24 Temperature 97.5 F L Temperature Source Temporal Pulse Rate 55 L Respiratory Rate 18 Blood Pressure 148/73 H Blood Pressure Mean 98 Blood Pressure Source Monitor Blood Pressure Position Semi-Fowlers Blood Pressure Location Left Forearm Pulse Ox 94 Oxygen Delivery Method Room Air Physical Exam Narrative General: Minimally responsive only to pain is April. Semiconscious. HEENT: Pupil mildly dilated but reactive. Had IV Ativan in ED. Atraumatic, PERRLA, EOMI, Normocephalic Oral: Oral mucosa dry. NG tube inserted with 2020 in NG tube. Patient has saliva in mouth but closing her mouth tightly. Neck: Supple, No JVD, Negative Carotid Bruits Lungs: Air entry diminished in bilateral lung bases. No crepitation/rhonchi Cardiovascular: Regular rate, Regular Rhythm, Normal S1, Normal S2, No murmurs Abdomen: Fat abdomen. Bowel Sounds Present, Soft, Non Tender, Non-Distended. No clinically palpable ascites, fluid thrill negative. : No renal angle tenderness. No suprapubic tenderness. Extremities: minimal 1+ ankle edema, Capillary Refill Less than 3 Seconds Skin: No rashes, No breakdown Musculoskeletal: No Tenderness to Palpation of Joints or Extremities. Bilateral TKR. ROM and muscle strength could not be evaluated Neurological: Generalized encephalopathy, confused. Minimally responsive. Detailed neuro exam unobtainable Psych/Mental Status: Responsive to painful stimuli only Assessment & Plan Assessment/Plan (1) Hepatic encephalopathy: PLAN: Plan 1. Hepatic encephalopathy due to decompensated alcoholic cirrhosis with thrombocytopenia: Patient is being admitted in PCU, direct transfer from pulmonary in ED. NG tube is inserted. CT head was done in ED shows no evidence of acute intracranial abnormality. NG tube position checked with auscultation but will do portable chest x-ray to confirm the position. No chest x-ray found in the chart. Labs reviewed. Platelet count 76,000. Electrolytes in normal limit except alkaline phosphatase 194. Low albumin 3.2. Transaminases normal limit. Glucose 155. Serum ammonia high 319 and then 282. Troponin normal. Alcohol level negative. Lactulose ordered 30 mill NG every 6 hourly along with Xifaxan 550 mg twice daily. Monitor CBC with differential, CMP, magnesium and phosphorus. 2. History of chronic alcohol use in the past, PTSD, anxiety and depression: Patient on bupropion, buspirone, citalopram, Claritin quetiapine and prazosin. Will hold it until patient wakes up. 3. Physical deconditioning: PT and OT evaluation along with mental health case manager to assist with discharge planning. 4. Morbid obesity: Morbid obesity. BMI 42.1 kg/m?. Weight loss advised. Consult. 5 Essential tremors hold propanol as patient heart rate is 55/min. 6. Chronic thrombocytopenia due to cirrhosis: Monitor CBC daily. 7. DVT prophylaxis confirmed Cle[place] discontinued due to thrombocytopenia and 76,000. Bilateral SCDs. CODE STATUS:Full code as per [facility]. Patient is semiconscious therefore advanced directive could not be discussed. Full code unverified. Charges/Coding Visit Charges Inpatient E&M: 60053 Init Hosp L3
--- NOTE | 2023-05-28 15:20 | RAD_ITS ---
STUDY: X-RAY CHEST REASON FOR EXAM: Female, 52 years old. NG tube position -- To include left hemidiaphragm and upper abdomen. TECHNIQUE: Single AP portable view of the chest. COMPARISON: None. FINDINGS: The tip of the nasogastric tube is at the gastroesophageal junction. Vascular congestion and mild CHF. There is no demonstrated pleural abnormality. There is borderline cardiomegaly. Normal mediastinum and marlen. Normal visualized pulmonary arteries. There is atherosclerotic tortuosity of the aortic arch and descending thoracic aorta. There are diffuse degenerative changes of the visualized thoracic spine. Normal visualized ribs, clavicles, and shoulders. RAD/Chest 1 View (Portable) IMPRESSION: The tip of the nasogastric tube is at the gastroesophageal junction. Electronically Signed: Ronaldo Edwards MD at 15:32 EDT ,
[2023-05-28 15:25] LABS: Magnesium 2.2 mg/dL (1.6-2.6)
[2023-05-28 16:31] VITALS: BMI 45.3
[2023-05-28 16:44] LABS: Mucous, Urine 0 SEEN /hpf (<or=2+); Squamous Epithelial Cells - UA 0 SEEN /hpf (5-10)
[2023-05-28 16:55] LABS: Color, Urine Yellow (Yellow); Glucose, Dipstick Normal (Normal); Ketone-Dipstick Negative (Negative); Leukocyte Esterase-Dipstick 25 /ul (Negative); Nitrite-Dipstick Negative (Negative); Occult Blood-Urine 10 /ul (Negative); Protein-Dipstick Negative (Negative); Urine Bilirubin Dipstick Negative (Negative); Urine Clarity Sl. Cloudy (Clear); Urine Urobilinogen Normal (Normal)
[2023-05-28 17:03] LABS: Bacteria 2+ /hpf (None Seen)
[2023-05-28 17:04] LABS: Red Blood Cells-Urine 0-5 SEEN /hpf (0-5); White Blood Cells 0-5 SEEN /hpf (0-5)
[2023-05-28] MEDS: 0.9% Normal Saline 1,000 ML 75 ML IV (17:31)
[2023-05-28] MEDS: rifAXIMin 550 MG Tablet NG (17:32)
[2023-05-28] MEDS: Lactulose 20 GM/30 ML UDC NG (17:32)
[2023-05-28 21:00] VITALS: BP 148/63; PULSE 61; RESP 16; TEMP 36.1; O2SAT 96
[2023-05-28] MEDS: Ondansetron 4 MG/2 ML Vial IV (22:21)
--- NOTE | 2023-05-28 22:30 | RAD_ITS ---
STUDY: X-RAY - ABDOMEN/PELVIS REASON FOR EXAM: Female, 52 years old. NG tube verification TECHNIQUE: Single AP view of the abdomen / pelvis. COMPARISON: 05/28/2023 at 1514 FINDINGS: Nasogastric tube is coiled in the inferior aspect of the chest likely in the distal esophagus or hiatal hernia. There is an unremarkable bowel gas pattern. The visualized liver, spleen and kidneys are grossly normal in size and morphology. Normal soft tissue structures. Normal visualized osseous structures. RAD/Abdomen Single View (Portable) IMPRESSION: Nasogastric tube coiled in the distal esophagus or hiatal hernia. Electronically Signed: Aba Kebede MD at 23:03 EDT ,
--- NOTE | 2023-05-28 22:35 | RAD_ITS ---
STUDY: X-RAY - ABDOMEN/PELVIS REASON FOR EXAM: Female, 52 years old. revision in room for NG TECHNIQUE: Single AP view of the abdomen / pelvis. COMPARISON: None. FINDINGS: Nasogastric tube with the tip of overlying the distal esophagus. There is an unremarkable bowel gas pattern. The visualized liver, spleen and kidneys are grossly normal in size and morphology. Normal soft tissue structures. Normal visualized osseous structures. RAD/Abdomen Single View (Portable) IMPRESSION: Nasogastric tube with tip overlying the distal esophagus. Electronically Signed: Aba Kebede MD at 23:04 EDT ,
--- NOTE | 2023-05-29 00:30 | NURSING ---
Aid on the floor, walking past pt's room and noted that pt had lowered self in bed and was able to left hand to NG tube and was yanked on without removel of NG tube. KUB was ordered for verification of NG tube placement. KUB showed that NG was coilded in the distal esophagus. Plan was to try and reinsert NG tube but was unsuccesful by several nurses and ICU nurse. MD was made aware. Plan is to reinsert NG tube in the AM with fluoro. Plan is for lactulose to be given rectually. Pt was removed from restraints.
[2023-05-29] MEDS: Lactulose 20 GM/30 ML UDC 200 GM RC (00:49)
[2023-05-29 03:14] VITALS: BP 127/71; PULSE 56; RESP 16; TEMP 36.4; O2SAT 99
[2023-05-29 04:15] VITALS: BMI 45.1
[2023-05-29] MEDS: Lactulose 20 GM/30 ML UDC PO ×2 (05:40→12:44)
[2023-05-29] MEDS: 0.9% Normal Saline 1,000 ML 75 ML IV (05:40)
[2023-05-29 06:21] LABS: Absolute Lymphocyte Count 1.81 X10^3/uL (0.83-4.51); Absolute Neutrophil Count 4.4 X10^3/uL (2.0-7.7); Basophil# 0.05 X10^3/uL; Basophil% 0.7 % (0-1); Eosinophils% 5.4 % (0-5); Hematocrit 45.4 % (37-47); Hemoglobin 15.1 g/dL (12.0-15.0); Lymphocyte # 1.81 X10^3/ul (0.83-4.51); Lymphocyte % 24.2 % (19-41); Mean Corp Hgb Conc 33.3 g/dL (32-36); Mean Corpuscular Hgb 32.8 pg (27.0-32.0); Mean Corpuscular Volume 98.7 fL (81-99); Mean Platelet Vol. 10.5 fl (6.2-12.0); Monocyte# 0.85 X10^3/uL; Monocyte% 11.4 % (0-10); NRBC Flagged by Analyzer 0 % (0-5); Neutrophil # 4.35 X10^3/uL (2.7-7.7); Neutrophil % 58.2 % (47-70); POSITIVE COUNT YES; Platelet Count 87 K/mm3 (150-450); RBC Distribution Width CV 13.2 % (11.6-14.6); RBC Distribution Width SD 48.1 fl (35.1-43.9); White Blood Count 7.5 K/mm3 (4.4-11.0)
[2023-05-29 07:06] LABS: ALB/GLOB Ratio 0.9 RATIO (0.9-2.4); AST(SGOT) 32 U/L (15-37); Alanine Aminotransfer ALT/SGPT 28 U/L (13-56); Alkaline Phosphatase 122 U/L (45-117); Anion Gap 5 (5-15); BUN 11 mg/dL (7-18); BUN/Creat Ratio 17.1 RATIO (10-20); Calcium,Total 9.3 mg/dL (8.5-10.1); Chloride 114 mmol/L (98-107); Creatinine, Serum 0.64 mg/dL (0.55-1.02); EST Glomerular Filtration Rate 102 mL/min (>60); Est Glom Filt Rate - Afr Amer 123 mL/min (>60); Estimated Creatinine Clearance 94.07 ml/min; Globulin 3.4 g/dL (2.2-4.2); Glucose 114 mg/dL (74-106); Phosphorus 2.7 mg/dL (2.5-4.9); Potassium 4.1 mmol/L (3.5-5.1); Protein, Total 6.4 g/dL (6.4-8.2); Sodium Level 144 mmol/L (136-145)
[2023-05-29 09:10] VITALS: BP 119/50; PULSE 59; RESP 16; TEMP 36.8; O2SAT 97
[2023-05-29] MEDS: rifAXIMin 550 MG Tablet NG ×2 (09:10→22:20)
[2023-05-29] MEDS: Nystatin Powder 15gm Bottle 1 APPLIC TOPICAL ×2 (09:10→22:20)
--- NOTE | 2023-05-29 09:35 | PCM.PN.HOSP ---
Reason for Visit Reason for Visit: Diagnoses Hepatic encephalopathy (05/28/23) Subjective Subjective Patient was seen and examined today, she remains confused, she does not carry on a conversation, nursing states that she is able to take her oral medications however. Objective Data Objective Data Vital Signs: Vital Signs Temp Pulse Resp BP Pulse Ox O2 Del Method 98.3 F 59 L 16 119/50 L 97 Room Air 05/29/23 09:10 05/29/23 09:10 05/29/23 09:10 05/29/23 09:10 05/29/23 09:10 05/29/23 09:10 Oxygen Delivery Method Room Air Weight: 130.4 kg Body Mass Index (BMI) 45.1 Intake & Output: Intake and Output for Last 24 Hours 05/27/23 05/28/23 05/29/23 23:59 23:59 23:59 Intake Total 515 / 515 911.25 / 911.25 Output Total 1400 / 1400 245 / 245 Balance -885 / -885 666.25 / 666.25 Lab / Micro Data 05/29/23 06:07 05/29/23 06:07 Labs: Laboratory Results - last 24 hr 05/28/23 15:00: Magnesium 2.2 05/28/23 16:35: Urine Color Yellow, Urine Clarity Sl. Cloudy, Urine pH 8.0, Ur Specific [place] 1.010, Urine Protein Negative, Urine Glucose (UA) Normal, Urine Ketones Negative, Urine Occult Blood 10 H, Urine Nitrite Negative, Urine Bilirubin Negative, Urine Urobilinogen Normal, Ur Leukocyte Esterase 25 H, Urine RBC 0-5 SEEN, Urine WBC 0-5 SEEN, Ur Squamous Epith Cells 0 SEEN, Urine Bacteria 2+, Urine Mucus 0 SEEN 05/29/23 06:07: WBC 7.5, RBC 4.60, Hgb 15.1 H, Hct 45.4, MCV 98.7, MCH 32.8 H, MCHC 33.3, RDW Std Deviation 48.1 H, RDW Coeff of Stephon 13.2, Plt Count 87 L, MPV 10.5, Immature Gran % (Auto) 0.100, Neut % (Auto) 58.2, Lymph % (Auto) 24.2, [place] % (Auto) 11.4 H, Eos % (Auto) 5.4 H, Baso % (Auto) 0.7, Absolute Neuts (auto) 4.4, Absolute Lymphs (auto) 1.81, Nucleated RBC % 0, Sodium 144, Potassium 4.1, Chloride 114 H, Carbon Dioxide 25.0, Anion Gap 5, BUN 11, Creatinine 0.64, Estim Creat Clear Calc 94.07, Est GFR (MDRD) Af Amer 123, Est GFR (MDRD) Non-Af 102, BUN/Creatinine Ratio 17.1, Glucose 114 H, Calcium 9.3, Phosphorus 2.7, Total Bilirubin 1.50 H, AST 32, ALT 28, Alkaline Phosphatase 122 H, Total Protein 6.4, Albumin 3.0 L, Globulin 3.4, Albumin/Globulin Ratio 0.9 Radiography Diagnostic Testing: Radiology Impression Chest X-Ray 05/28/23 15:20 IMPRESSION: The tip of the nasogastric tube is at the gastroesophageal junction. Electronically Signed: Ronaldo Edwards MD at 15:32 EDT , KUB X-Ray 05/28/23 22:30 IMPRESSION: Nasogastric tube coiled in the distal esophagus or hiatal hernia. Electronically Signed: Aba Kebede MD at 23:03 EDT , KUB X-Ray 05/28/23 22:35 IMPRESSION: Nasogastric tube with tip overlying the distal esophagus. Electronically Signed: Aba Kebede MD at 23:04 EDT , Physical Exam Const alert Constitutional Narrative: Patient is morbidly obese, she is confused General Appearance: cooperative, well kempt and well developed Orientation / Consciousness: awake HEENT normocephalic, head/scalp atraumatic and moist oral mucous membranes Eyes PERRL, EOMs intact bilaterally and conjunctivae normal Neck supple, no JVD, thyroid normal and no carotid bruits General: trachea midline Resp normal respiratory effort, no retractions, no use of accessory muscles and clear to auscultation bilaterally Auscultation: Negative for rales, rhonchi or wheezes Cardio regular rate, regular rhythm, S1 normal heart sound, S2 normal heart sound, no murmurs, no rub and no gallops GI normal to inspection, nondistended, normoactive bowel sounds, soft to palpation, non-tender and non-distended Extremity no clubbing, cyanosis or edema Skin no rashes or lesions noted General Skin Exam: no breakdown Neuro CN's II-XII intact bilaterally, moves all extremities, no focal motor deficits and no sensory deficits noted Neuro Narrative: Patient is confused Sensorium / Orientation: awake and alert Psych Psych Narrative: Patient is confused Assessment & Plan Assessment/Plan (1) Hepatic encephalopathy: PLAN: Plan 1. Recurrent hepatic encephalopathy-patient is to remain on lactulose and Xifaxan, supportive care will be given #2 cirrhosis secondary to previous alcohol usage-complicates care, medical course, recovery, and prognosis #3 chronic anxiety/depression-patient will remain on her present medications #4 morbid obesity-complicates care, medical course, recovery, and prognosis Total clinical time spent by myself addressing the patient's medical issues, reviewing all of her data, and collaborating with patient's care team: 35-minute Charges/Coding Visit Charges Inpatient E&M: 15996 Subs Hosp L2
[2023-05-29] MEDS: Furosemide 20 MG Tablet PO ×2 (10:41→22:20)
[2023-05-29] MEDS: Propranolol 40 MG Tablet PO ×2 (10:41→22:20)
[2023-05-29] MEDS: Spironolactone 50 MG Tablet PO (10:41)
[2023-05-29] MEDS: buPROPion (XL) 300 MG TABLET.XL PO (10:41)
[2023-05-29] MEDS: Citalopram 40 MG TABLET PO (10:41)
[2023-05-29 15:10] VITALS: BP 116/60; PULSE 55; RESP 16; TEMP 37.1; O2SAT 96
--- NOTE | 2023-05-29 17:15 | CM.ED ---
Social Work SW contacted patient's brother and introduced self and role as [facility] SW. Patient's brother agreeable to speak with SW as patient is not currently alert and oriented. Patient's brother reviewed recent events including patient applying for SSI a couple of months ago and being approved for the assisted living [facility] pending SSI. Patient's brother unable to recall name or contact information for patient's supervisor case loading. Patient's brother voiced frustration, explaining he continues to talk to SW and [facility] about solutions for the patient, however, nothing has been done because the patient eventually returns to baseline. Patient's brother explained the patient is independent when she is taking her medications, however, due to his work schedule he is unable to assist the patient with taking her medications daily and she eventually stops taking her medication. Patient's brother explained the patient has a daily pill container but often sleeps late in the day and misses doses. Patient's brother explained the patient will then have loopy days when she experiences hallucinations, undresses and can't control BM. Patient's brother further explained he does not want to kick his sister out or make her go to a long term, however, he feels he can not physically or emotionally care for the patient as it is negatively impacting his functioning and career. Patient's brother inquired about speaking with a mine engineering supervisor to discuss alternative programs or waivers the patient could have explaining supervisors usually have access to things you don't. SW provided emotional support and validated patient's brother's concerns. SW reviewed previously discussed solutions such as [facility] and progress towards assisted living. Patient's brother reports both would require the patient to have SSI or additional funding so the patient can not afford those options currently. Patient's brother also explained the patient was working with [facility] to be admitted to their long term and have housing assistance through their programming. SW to review with team and discuss possible D/C options. JOSE performed chart review and attempted to contact ARACELY Padilla at the phone number listed, however, the VM box indicated it was a staff member named Natalie so JOSE did not leave a VM. JOSE contacted [facility] to inquire about their involvement with the patient. [facility] staff report not being familiar with patient's name but explained she doesn't work at the long term often. Staff reports the patient will need to contact their long term closer to discharge to discuss their programs and long term availability. Plan: CHRIS HICKS, DIANELYS
[2023-05-29] MEDS: Lactulose 20 GM/30 ML UDC 30 GM PO ×2 (17:17→22:21)
[2023-05-29 22:18] VITALS: BP 149/73; PULSE 58; RESP 17; TEMP 36.3; O2SAT 97
[2023-05-29] MEDS: QUEtiapine 100 MG Tablet PO (22:20)
[2023-05-29] MEDS: busPIRone 5 MG Tablet PO (23:37)
[2023-05-30 02:04] VITALS: BP 115/58; PULSE 62; RESP 18; TEMP 36.2; O2SAT 96
[2023-05-30 04:48] VITALS: BP 115/60; PULSE 57; RESP 18; TEMP 36.6; O2SAT 95
[2023-05-30] MEDS: Furosemide 20 MG Tablet PO ×2 (04:50→14:48)
[2023-05-30] MEDS: Lactulose 20 GM/30 ML UDC 30 GM PO ×4 (04:50→23:32)
[2023-05-30 08:05] VITALS: BMI 43.9
[2023-05-30 09:17] VITALS: BP 108/47; PULSE 92; RESP 18; TEMP 37; O2SAT 95
[2023-05-30] MEDS: Propranolol 40 MG Tablet PO ×2 (09:25→21:49)
[2023-05-30] MEDS: Spironolactone 50 MG Tablet PO (09:25)
[2023-05-30] MEDS: rifAXIMin 550 MG Tablet NG ×2 (09:25→21:49)
[2023-05-30] MEDS: buPROPion (XL) 300 MG TABLET.XL PO (09:26)
[2023-05-30] MEDS: Citalopram 40 MG TABLET PO (09:26)
[2023-05-30] MEDS: Nystatin Powder 15gm Bottle 1 APPLIC TOPICAL ×2 (09:26→21:49)
[2023-05-30] MEDS: Menthol/Lanolin/Calamine/Znox 113 GM Tube 1 APPLIC TOPICAL (09:26)
[2023-05-30 09:40] VITALS: BP 131/69; PULSE 62; RESP 18; TEMP 36.9; O2SAT 96
--- NOTE | 2023-05-30 12:38 | PN.HOSP_ITS ---
Reason for Visit Reason for Visit: Diagnoses Hepatic encephalopathy (05/28/23) Subjective Subjective Patient was seen and examined today, she is alert and appropriate, nursing tells me that the patient's brother who she lives with is unable to care for the patient at home and request that she be placed at another facility. I am not sure if the patient knows this, I initially had a conversation about her being discharged today but it appears the patient has no living arrangements at the present time. I feel the patient safe to shower today. I talked with her at length about her lactulose usage and told her that she must have 4-5 bowel mo vements a day in order to prevent encephalopathy. Objective Data Objective Data Vital Signs: Vital Signs Temp Pulse Resp BP Pulse Ox O2 Del Method 98.6 F 92 18 108/47 L 95 Room Air 05/30/23 09:17 05/30/23 09:17 05/30/23 09:17 05/30/23 09:17 05/30/23 09:17 05/30/23 09:17 Oxygen Delivery Method Room Air Weight: 127 kg Body Mass Index (BMI) 43.9 Intake & Output: Intake and Output for Last 24 Hours 05/28/23 05/29/23 05/30/23 23:59 23:59 23:59 Intake Total 515 / 515 2092.50 / 2092.50 Output Total 1400 / 1400 245 / 245 Balance -885 / -885 1847.50 / 1847.50 Lab / Micro Data 05/29/23 06:07 05/29/23 06:07 Physical Exam Const alert, oriented x3, no apparent distress and average body habitus Constitutional Narrative: Patient is morbidly obese General Appearance: cooperative, well kempt and well developed Orientation / Consciousness: awake, oriented to person, oriented to place and oriented to time HEENT normocephalic, head/scalp atraumatic and moist oral mucous membranes Eyes PERRL, EOMs intact bilaterally and conjunctivae normal Neck supple, no JVD, thyroid normal and no carotid bruits General: trachea midline Resp normal respiratory effort, no retractions, no use of accessory muscles and clear to auscultation bilaterally Auscultation: Negative for rales, rhonchi or wheezes Cardio regular rate, regular rhythm, no murmurs, no rub and no gallops GI normal to inspection, nondistended, normoactive bowel sounds, soft to palpation, non-tender and non-distended Extremity no clubbing, cyanosis or edema Skin no rashes or lesions noted General Skin Exam: no breakdown Neuro oriented x3, CN's II-XII intact bilaterally, moves all extremities, no focal motor deficits and no sensory deficits noted Sensorium / Orientation: awake and alert Speech: speech normal Psych affect normal Assessment & Plan Assessment/Plan (1) Hepatic encephalopathy: PLAN: Plan 1. 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 Total clinical time spent by myself addressing the patient's medical issues, reviewing all of her data, and collaborating with patient's care team: 35- minutes Charges/Coding Visit Charges Inpatient E&M: 17849 Subs Hosp L2
[2023-05-30 15:19] VITALS: BP 114/56; PULSE 58; RESP 18; TEMP 36.5; O2SAT 95
--- NOTE | 2023-05-30 16:56 | NURSING ---
Vaibhav, patient's brother, called to check on patient and the plans for her. I informed him that the doctor was ready to discharge her today but it is our understanding she is not able to go back to where she had been staying. Vaibhav confirmed that she had been living with him but he feels unable to continue to care for her and make sure she is taking her meds appropriately as he often works at job sites far away and away from cell service.
--- NOTE | 2023-05-30 18:35 | NURSING ---
Reviewed charting with Mike Elam RN
[2023-05-30] MEDS: QUEtiapine 100 MG Tablet PO (21:49)
[2023-05-30] MEDS: busPIRone 5 MG Tablet PO (21:52)
[2023-05-31 03:26] VITALS: BP 113/52; PULSE 66; RESP 16; TEMP 36.4; O2SAT 93
[2023-05-31 06:00] VITALS: BMI 44.1
[2023-05-31] MEDS: Furosemide 20 MG Tablet PO ×2 (06:12→10:06)
[2023-05-31] MEDS: Lactulose 20 GM/30 ML UDC 30 GM PO ×5 (06:13→21:25)
--- NOTE | 2023-05-31 09:01 | PCM.PN.HOSP ---
Reason for Visit Reason for Visit: Diagnoses Hepatic encephalopathy (05/28/23) Subjective Subjective Patient is a 52-year-old lady with history of cirrhosis of the liver secondary to alcohol use admitted with altered mental status. Assessment of acute hepatic encephalopathy made admitted to a monitored bed where patient has since been managed Objective Data Objective Data Vital Signs: Vital Signs Temp Pulse Resp BP Pulse Ox O2 Del Method 97.6 F L 66 16 113/52 L 93 Room Air 05/31/23 03:26 05/31/23 03:26 05/31/23 03:26 05/31/23 03:26 05/31/23 03:26 05/31/23 03:30 Oxygen Delivery Method Room Air Weight: 127.8 kg Body Mass Index (BMI) 44.1 Intake & Output: Intake and Output for Last 24 Hours 05/29/23 05/30/23 05/31/23 23:59 23:59 23:59 Intake Total 2092.50 / 2092.50 1160 / 1160 Output Total 245 / 245 Balance 1847.50 / 1847.50 1160 / 1160 Lab / Micro Data 05/29/23 06:07 05/29/23 06:07 Physical Exam Narrative GENERAL: Cooperative HEENT: Atraumatic; normocephalic EYES; Anicteric, Normal Conjunctiva NECK; supple, normal thyroid, RESPIRATORY: Diminished to auscultation CARDIOVASCULAR: Regular S1 S2, GI: soft, normoactive bowel sounds, : No Renal angle tenderness; EXTREMITIES: No edema, no clubbing, MUSCULOSKELETAL: no muscle wasting NEURO: Awake; no lateralizing signs. SKIN: No Rash PSYCH; Flat affect Assessment & Plan Assessment/Plan (1) Hepatic encephalopathy: PLAN: Plan Patient is a 52-year-old lady with history of cirrhosis of the liver secondary to alcohol use admitted with altered mental status. Assessment of acute hepatic encephalopathy made admitted to a monitored bed where patient has since been managed 1. Acute hypoxic encephalopathy -admitted to a monitored bed managed with lactulose as well as rifaximin 2. Cirrhosis of the liver ? Secondary to chronic alcohol.. Patient is on furosemide, Aldactone in addition to rifaximin and lactulose 3. Physical deconditioning - Requested for PT OT eval and social worker delinquency prevention to assist with discharge planning 4. PTSD ? Patient is on prazosin 5. Depression ? Patient is on Wellbutrin and Lexapro 6. Class III obesity with BMI of 42.8 ? Weight loss advised 7. Essential tremors ? Patient is on propranolol 8. Thrombocytopenia ? Secondary to patient cirrhosis of the liver monitoring with daily CBC 9. DVT prophylaxis - On enoxaparin Time spent in the patient's overall evaluation,decision-making process, review of diagnostic data, adjustment of management, discussion patient's family his brother and with other providers, nursing nursing and ancillary staff involved in patient's care documentation, 35 -minutes Charges/Coding Visit Charges Inpatient E&M: 40976 Subs Hosp L2
[2023-05-31 09:25] VITALS: BP 126/60; PULSE 62; RESP 18; TEMP 36.7; O2SAT 95
[2023-05-31] MEDS: rifAXIMin 550 MG Tablet NG ×2 (10:02→21:21)
[2023-05-31] MEDS: Propranolol 40 MG Tablet PO ×2 (10:02→21:21)
[2023-05-31] MEDS: Citalopram 40 MG TABLET PO (10:02)
[2023-05-31] MEDS: Spironolactone 50 MG Tablet PO (10:03)
[2023-05-31] MEDS: Menthol/Lanolin/Calamine/Znox 113 GM Tube 1 APPLIC TOPICAL ×2 (10:03→21:20)
[2023-05-31] MEDS: buPROPion (XL) 300 MG TABLET.XL PO (10:03)
[2023-05-31] MEDS: Nystatin Powder 15gm Bottle 1 APPLIC TOPICAL ×2 (10:03→21:22)
[2023-05-31 10:52] VITALS: O2SAT 91
[2023-05-31 11:31] VITALS: O2SAT 91
--- NOTE | 2023-05-31 14:21 | CASEMGMT ---
Patient is now alert and oriented X4. Patient is also walking 400' and per therapy patient does not need any assistance with her ADL's. The only thing patient needs assistance with would be medications which would not qualify patient for a prison facility even under intermediate level of care. SW met with patient. Introduced self and role at [facility]. Patient said she has been waiting to talk with SW. SW explained to patient SW is not going to be able to get her to a shelter as she is too independent. SW mentioned the assisted living waiver. Patient knew nothing about this and said she never finished the paperwork because she did not think she was going to need it. Patient did confirm she applied for disability. SW asked patient what is happening that she is getting confused. Patient said she isn't taking her Lactulose. SW asked patient why she is not taking her Lactulose. Patient said she is concerned that when she goes to appointments she might have to use the bathroom and not be able to get to one. Patient uses [facility] through her insurance to get to appointments and she is worried she will have to have a bowel movement on her way to an appt. Patient did say she thinks she would learn to just take her medicine, but she forgets how bad it can get. Patient did say this time she is mortified. Patient said she was sitting on the couch with her 9 year old niece. Patient had not take her Lactulose so she passed out and defecated all over the couch. Patient's niece was terrified. Patient feels horrible about this. SW asked patient if she has someone that could call her at the times when she needs to take her medications. Patient said she could call her friend and/or her other brother's girlfriend. Patient said she is going to have to go home. SW asked patient if she thinks her brother will allow her to return. Patient said he told her he would never let her out on the streets. SW told patient SW will make some phone calls to check on the AL waiver. JOSE called [facility] and patient's waiver application was denied by [employer] as patient did not follow through. The individual also told SW patient has no income and in order to get into the AL waiver patient would need income. Patient did apply for Social Security Disability. JOSE called [facility] and they do not have that patient has an active AL waiver. SW was told that if patient wants and AL waiver patient would just need to call [facility] and tell them and they will get the referral sent. Darlin IVORY
--- NOTE | 2023-05-31 15:21 | CASEMGMT ---
SW called patient's brother Vaibhav. Introduced self and role at [facility]. JOSE explained JOSE is not sure SW is going to be able to get patient anywhere from [facility]. Vaibhav was upset and said no one can ever help. Vaibhav went on to express his frustrations. SW listened and provided emotional support. JOSE let Vaibhav know JOSE is not sure about the assisted living waiver whether it is active or not. JOSE let Vaibhav know JOSE called [facility] as well as [facility] and both places said there is no waiver in place. Vaibhav said he got a call from someone that said she has been approved for an assisted living in [place] pending her disability going through. Vaibhav did not remember who this person was or where there were from. Vaibhav said he doesn't know what to do with patient. Vaibhav is worried that one of these times he is going to come home and find her . JOSE listened and provided emotional support. JOSE let Vaibhav know SW will continue to make phone calls, but just wanted to talk with him. JOSE did let him k now physician may d/c patient tomorrow. Darlin Hurd GLASS SETTER DIANELYS
--- NOTE | 2023-05-31 15:48 | CASEMGMT ---
JOSE called [facility] and spoke with Rosa Elena. Rosa Elena said she did receive an application from patient, but now she needs medical information. Rosa Elena said a note from a primary care DrClovis's office visit would be fine. Rosa Elena said they would then do an assessment to make sure they could meet her needs. Ideally this could take place in a week or two, but she is not sure. Their fax number is [phone]. Per Rosa Elena this application was for daycare. Darlin IVORY
[2023-05-31 16:00] VITALS: BP 133/72; PULSE 61; RESP 18; TEMP 36.6; O2SAT 96
--- NOTE | 2023-05-31 16:01 | CASEMGMT ---
Patient sees Luz Dhaliwal at [facility] as her primary care. SW called [facility] and left a voice mail requesting a return call. Darlin IVORY
[2023-05-31] MEDS: QUEtiapine 100 MG Tablet PO (21:21)
[2023-05-31 22:00] VITALS: BP 119/59; PULSE 68; RESP 18; TEMP 36.8; O2SAT 95
[2023-05-31] MEDS: busPIRone 5 MG Tablet PO (22:09)
[2023-06-01 03:28] VITALS: BP 123/64; PULSE 65; RESP 16; TEMP 36.9; O2SAT 96
[2023-06-01 05:27] VITALS: BMI 44.2
[2023-06-01] MEDS: Furosemide 20 MG Tablet PO (05:53)
[2023-06-01] MEDS: Lactulose 20 GM/30 ML UDC 30 GM PO ×2 (05:53→08:03)
[2023-06-01] MEDS: rifAXIMin 550 MG Tablet NG (08:02)
[2023-06-01] MEDS: Spironolactone 50 MG Tablet PO (08:02)
[2023-06-01] MEDS: Propranolol 40 MG Tablet PO (08:02)
[2023-06-01] MEDS: Citalopram 40 MG TABLET PO (08:03)
[2023-06-01] MEDS: Menthol/Lanolin/Calamine/Znox 113 GM Tube 1 APPLIC TOPICAL (08:03)
[2023-06-01] MEDS: Nystatin Powder 15gm Bottle 1 APPLIC TOPICAL (08:04)
--- NOTE | 2023-06-01 08:24 | PCM.PN.HOSP ---
Reason for Visit Reason for Visit: Diagnoses Hepatic encephalopathy (05/28/23) Subjective Subjective Patient seen back to baseline plan for patient to be assessed for possible discharge Objective Data Objective Data Vital Signs: Vital Signs Temp Pulse Resp BP Pulse Ox O2 Del Method 98.4 F 65 16 123/64 H 96 Room Air 06/01/23 03:28 06/01/23 03:28 06/01/23 03:28 06/01/23 03:28 06/01/23 03:28 06/01/23 03:28 Oxygen Delivery Method Room Air Weight: 127.9 kg Body Mass Index (BMI) 44.2 Intake & Output: Intake and Output for Last 24 Hours 05/30/23 05/31/23 06/01/23 23:59 23:59 23:59 Intake Total 1160 / 1160 120 / 360 480 / 480 Balance 1160 / 1160 120 / 360 480 / 480 Lab / Micro Data 05/29/23 06:07 05/29/23 06:07 Physical Exam Narrative GENERAL: Cooperative HEENT: Atraumatic; normocephalic EYES; Anicteric, Normal Conjunctiva NECK; supple, normal thyroid, RESPIRATORY: Diminished to auscultation CARDIOVASCULAR: Regular S1 S2, GI: soft, normoactive bowel sounds, : No Renal angle tenderness; EXTREMITIES: No edema, no clubbing, MUSCULOSKELETAL: no muscle wasting NEURO: Awake; no lateralizing signs. SKIN: No Rash PSYCH; Flat affect Assessment & Plan Assessment/Plan (1) Hepatic encephalopathy: PLAN: Plan Patient is a 52-year-old lady with history of cirrhosis of the liver secondary to alcohol use admitted with altered mental status. Assessment of acute hepatic encephalopathy made admitted to a monitored bed where patient has since been managed 1. Acute hypoxic encephalopathy -admitted to a monitored bed managed with lactulose as well as rifaximin 2. Cirrhosis of the liver ? Secondary to chronic alcohol.. Patient is on furosemide, Aldactone in addition to rifaximin and lactulose 3. Physical deconditioning - Requested for PT OT eval and case management social worker to assist with discharge planning 4. PTSD ? Patient is on prazosin 5.Depression ? Patient is on Wellbutrin and Lexapro 6. Class III obesity with BMI of 42.8 ? Weight loss advised 7. Essential tremors ? Patient is on propranolol 8. Thrombocytopenia ? Secondary to patient cirrhosis of the liver monitoring with daily CBC 9. DVT prophylaxis - On enoxaparin 10. Incontinence ? Secondary to frequent use of lactulose to prevent patient from going into hepatic encephalopathy. Patient will need depends . Time spent in the patient's overall evaluation,decision-making process, review of diagnostic data, adjustment of management, discussion patient's family his brother and with other providers, nursing nursing and ancillary staff involved in patient's care documentation, 35 -minutes Charges/Coding Visit Charges Inpatient E&M: 21780 Subs Hosp L2
--- NOTE | 2023-06-01 08:47 | PCM.DC.SUM ---
Providers Date of Admission: 05/28/23 Date of Discharge: 06/01/23 Primary Care Physician: Luz Dhaliwal, TERELL-C Reason For Visit: HEPATIC ENCEPHALOPATHY Diagnosis Discharge Diagnosis (1) Hepatic encephalopathy: Status: Acute Code(s): K76.82 - Hepatic encephalopathy Plan Patient is a 52-year-old lady with history of cirrhosis of the liver secondary to alcohol use admitted with altered mental status. Assessment of acute hepatic encephalopathy made admitted to a monitored bed where patient has since been managed 1. Acute hypoxic encephalopathy -admitted to a monitored bed managed with lactulose as well as rifaximin 2. Cirrhosis of the liver ? Secondary to chronic alcohol.. Patient is on furosemide, Aldactone in addition to rifaximin and lactulose 3. Physical deconditioning - Requested for PT OT eval and renal social worker to assist with discharge planning 4. PTSD ? Patient is on prazosin 5.Depression ? Patient is on Wellbutrin and Lexapro 6. Class III obesity with BMI of 42.8 ? Weight loss advised 7. Essential tremors ? Patient is on propranolol 8. Thrombocytopenia ? Secondary to patient cirrhosis of the liver monitoring with daily CBC 9. DVT prophylaxis - On enoxaparin 10. Incontinence ? Secondary to frequent use of lactulose to prevent patient from going into hepatic encephalopathy. Patient will need depends . Time spent in the patient's overall evaluation,decision-making process, review of diagnostic data, adjustment of management, discussion patient's family his brother and with other providers, nursing nursing and ancillary staff involved in patient's care documentation, 35 -minutes Medications at Discharge Home Medications citalopram 40 mg tablet 40 mg PO DAILY depression 10/28/22 furosemide 20 mg tablet 20 mg PO TID diuretic 10/28/22 propranolol 10 mg tablet 40 mg PO Q12H tremors 10/28/22 quetiapine 50 mg tablet (Seroquel) 100 mg PO QHS sleep 10/28/22 rifaximin 550 mg tablet (Xifaxan) 550 mg PO BID cirrhosis 10/28/22 bupropion HCl 300 mg 24 hr tablet, extended release 300 mg PO DAILY depression 11/18/22 spironolactone 25 mg tablet 50 mg (2 x 25 mg) PO DAILY diuretic 30 days #60 tabs 11/20/22 ursodiol 300 mg capsule 300 mg PO BID cholesterol #180 caps 12/15/22 buspirone 10 mg tablet 10 - 20 mg PO TID PRN PRN Anxiety 12/17/22 lactulose 10 gram/15 mL oral solution 30 ml PO Q6H #946 mL 04/07/23 loratadine 10 mg tablet (Claritin) 10 mg PO DAILY allergies 04/19/23 Hospital Course Summary of Care Provided Minutes Spent on Discharge: 35 Physical Exam Narrative GENERAL: Cooperative HEENT: Atraumatic; normocephalic EYES; Anicteric, Normal Conjunctiva NECK; supple, normal thyroid, RESPIRATORY: Diminished to auscultation CARDIOVASCULAR: Regular S1 S2, GI: soft, normoactive bowel sounds, : No Renal angle tenderness; EXTREMITIES: No edema, no clubbing, MUSCULOSKELETAL: no muscle wasting NEURO: Awake; no lateralizing signs. SKIN: No Rash PSYCH; Flat affect Weight / BMI Weight Weight: 127.9 kg Body Mass Index (BMI) 44.2 ABG / Lab / Microbiology Data 05/29/23 06:07 05/29/23 06:07 D/C Instructions Discharge Diet: No restrictions Discharge Activity: Return to Normal Activity Call your doctor if you observe: Fever of 101 or Higher, Shortness of breath, Fainting spells and Chest pain Meaningful Use Info Meaningful Use Diagnoses (Choose all that apply): None applicable Discharge Plan Admission Admit Date/Time: 05/28/23 14:29 Attending Provider: Ervin Blevins Primary Care Provider: Luz Dhaliwal NP Consulting Providers: Hua May Discharge Orders/Prescriptions Prescriptions: Continued furosemide 20 mg tablet 20 mg PO TID propranolol 10 mg tablet 40 mg PO Q12H Xifaxan 550 mg tablet 550 mg PO BID Patient Comments: TAKE 1 TABLET BY MOUTH TWICE DAILY citalopram 40 mg tablet 40 mg PO DAILY quetiapine [Seroquel] 50 mg tablet 100 mg PO QHS loratadine [Claritin] 10 mg tablet 10 mg PO DAILY bupropion HCl 300 mg tablet extended release 24 hr 300 mg PO DAILY Patient Comments: take 1 tablet by mouth once daily spironolactone 25 mg Tablet 50 mg PO DAILY 30 Days Qty: 60 2RF Rx Instructions: Hold if serum potassium more than 5.0. buspirone 10 mg tablet 10 - 20 mg PO TID PRN PRN (Reason: Anxiety) Patient Comments: take 2 tablets by mouth three times a day if needed lactulose 10 gram/15 mL solution 30 ml PO Q6H Qty: 946 0RF ursodiol 300 mg capsule 300 mg PO BID Qty: 180 3RF Referrals / Follow Up: Samir Ramos DO [Med Staff - Active Staff] - Within 2 Weeks Luz Dhaliwal NP, ASSISTANT HOUSEKEEPING MANAGER-C [Primary Care Provider] - In 1 Week Disposition Disposition (needs filled in before D/C Order can be placed): Home, Self Care Charges/Coding Visit Charges Inpatient E&M: 47683 Disch Hosp >30min
[2023-06-01 08:49] VITALS: BP 100/67; PULSE 67; RESP 18; TEMP 36.4; O2SAT 96
[2023-06-01 09:00] VITALS: BP 100/67; PULSE 67; RESP 18; TEMP 36.3; O2SAT 96
--- NOTE | 2023-06-01 09:10 | PHA.DC.MR.R ---
Pharmacy [place] Med Reconciliation Pharmacy Service has performed discharge medication reconciliation for this patient. The patient's discharge medication list was reviewed for discrepancies and discrepancies were resolved. Medications at Discharge Home Medications citalopram 40 mg tablet 40 mg PO DAILY depression 10/28/22 furosemide 20 mg tablet 20 mg PO TID diuretic 10/28/22 propranolol 10 mg tablet 40 mg PO Q12H tremors 10/28/22 quetiapine 50 mg tablet (Seroquel) 100 mg PO QHS sleep 10/28/22 rifaximin 550 mg tablet (Xifaxan) 550 mg PO BID cirrhosis 10/28/22 bupropion HCl 300 mg 24 hr tablet, extended release 300 mg PO DAILY depression 11/18/22 spironolactone 25 mg tablet 50 mg (2 x 25 mg) PO DAILY diuretic 30 days #60 tabs 11/20/22 ursodiol 300 mg capsule 300 mg PO BID cholesterol #180 caps 12/15/22 buspirone 10 mg tablet 10 - 20 mg PO TID PRN PRN Anxiety 12/17/22 lactulose 10 gram/15 mL oral solution 30 ml PO Q6H #946 mL 04/07/23 loratadine 10 mg tablet (Claritin) 10 mg PO DAILY allergies 04/19/23
[2023-06-01] MEDS: buPROPion (XL) 300 MG TABLET.XL PO (09:30)
--- NOTE | 2023-06-01 09:40 | CASEMGMT ---
JOSE spoke with patient this am. SW strongly reinforced with patient she has to take her medication. Patient verbalized that she understands she needs to take her medication. Patient is agreeable to wear a depends when she goes places. Physician wrote a prescription for depends. BECKA JESSICA called [facility] to see if they could take patient. Awaiting return call. JOSE spoke with Rosa Elena at [facility] regarding daycare. They need an office visit note from patient's physician to learn more about patient's medical conditions to see if they are able to manage patient. SW does have a phone call out to patient's PCP regarding this matter. JOSE also placed a call to patient's [facility] Sausage Linker Natalie. Awaiting a return call from her as well. Plan would hopefully be home with [facility] RN and JOSE. Darlin IVORY
--- NOTE | 2023-06-01 10:14 | CASEMGMT ---
Addendum entered by Zainab Mckeon 06/01/23 10:41: RN ARACELY received call back from [facility] and they are not able to accept the patient. RN CM updated SW. Original Note: RN CM notified by hospitalist and received scripts for incontinence supplies, RN CM provided to patient to fill at pharmacy of choice. BECKA JESSICA updated by SW to inquire about [facility] referral. BECKA JESSICA called [facility] and placed referral for nursing and SW for at discharge. Yeni at [facility] to review and provide call back. CM will to assist SW with discharge planning.
--- NOTE | 2023-06-01 11:10 | CASEMGMT ---
JOSE called [facility] on [address] and made a referral for the assisted living waiver. (since JOSE could not verify this was in place) JOSE also called [facility] and they will start delivering groceries 8-16. There is no fee if the groceries are $35 or over. JOSE also called Feliciano with [facility] and made a referral. JOSE updated patient on this information. Patient stated she still does not have a ride home. JOSE called [facility] and arranged transport. Tekmi will forklift picker patient between 1145 and noon at the main entrance. JOSE notified RN and patient. Patient told JOSE [facility] on [address] told her that she has an active AL waiver and they are just waiting on her to get her award letter from Social Security Disability. The individual at [facility] recommended a referral be made for the [place] [facility]. JOSE sent this referral to [facility]. JOSE has tried to call patient's brother to update him, but he is out of the service area now. JOSE will continue to try and reach him. Plan: d/c home with referral to [facility] and [place] [facility]. Patient does have an active AL waiver, but they are waiting on patient's social security to go through. JOSE did leave a message for patient's Aldo Estrada. JOSE also left a message for patient's 's office regarding getting an office visit note to [facility]. Darlin Hurd MSW DIANELYS
--- NOTE | 2023-06-01 12:04 | NURSING ---
Patient discharged per orders. Taken to main entrance in wheelchair and staff assist. Leaving premises via van transport services.
== END 2023-06-01 11:50 | disposition home or self-care (01) | DRG 280 ==
PROVIDERS: Internal Medicine; Admitting Provider Internal Medicine; PCP Nurse Practitioner Family; Visit Provider Internal Medicine
DX: K76.82 Hepatic encephalopathy (principal); K70.30 Alcoholic cirrhosis of liver without ascites; D69.6 Thrombocytopenia, unspecified; E66.01 Morbid (severe) obesity due to excess calories; D50.9 Iron deficiency anemia, unspecified; F15.90 Other stimulant use, unspecified, uncomplicated; F32.A Depression, unspecified; Z68.41 Body mass index [BMI] 40.0-44.9, adult; I10 Essential (primary) hypertension; G25.0 Essential tremor; Z87.891 Personal history of nicotine dependence; F43.10 Post-traumatic stress disorder, unspecified; R09.02 Hypoxemia
CPT/HCPCS: 36415; 71045; 74018; 80053; 81001; 83735; 84100; 85025; 97110; 97116; 97162; 97166; 97530; 97535; 97803; J7030; J2405

== ENCOUNTER 2023-08-02 13:30 | Outpatient (RCR) | payer MEDICAID, SELFPAY ==
--- NOTE | 2023-05-11 11:02 | HP.PTEVAL ---
Patient's Visit Information Visit Information Visit Information: EVER VERDUZCO is a 52 year old F referred to Physical Therapy by Dr. Pineda Langston DO with a diagnosis of Right Knee OA. Date of Evaluation: 05/11/23 Physical Therapist: Maryjo Cruz DPT Visit Plan Frequency: 2x /Week Duration: 4 Weeks Plan: Aquatic Therapy- focus on LE and core strength/stabilization and functional mobility. Subjective Subjective: Left TKR 2018 and now the right one is bad. The MD told her she needs to lose weight prior to having a total knee replacement. She is having a hard time loosing weight- so she is coming to therapy to get the knee better or be able to lose some weight. The right knee has been bothering her for about a year. Pain is located along the medial knee and sometimes goes down to the distal patella on the medial side. No radiating pain. Describes the pain as sharp and shooting but is always aware of it. Takes her a long time to get out of the car when she travels too long. Worst: 7/10 Agg: getting in/out of the car, standing. John gave her a walker [facility]. She rides the cart due to the pain. Eases: heat and ice alt, massage. Best: 0/10. She is not currently able to work due to her knee pain and some other issues- she is working on getting disability. She has not had any recent falls- no buckling of the knee. She has had recent x-rays. She had a cortisone injection a few weeks ago it helped but does not last very long. Sleep: disturbed- side sleeper and with a pillow between her knees. PMHx/Meds: no changes since Dr. Messina 04/19/23 Objective Objective: Posture: FH, RS- can correct with verbal cues but does not maintain Gait: antalgic- decreased stance time on the left LE with poor heel strike due to lack of extn HR/TR: able with UE A SLS: weight shift but unable to SLS Palpation: tender along medial joint line Sensation: WFL to gross touch bilateral ROM: 20 degrees from full extension to 120 degrees of flexion- pain at end ranges Strength: Ankle: 5/5, Knee: 4+/5 in available range, Hip: 4/5, Core: fair minus Flex: HS: severe, Gastroc: severe Balance/Special Test Scores Lower Extremity Functional Score: 30 Goals Goal 1:: Patient will be I with HEP and progression Goal Time Frame: 4-6 Weeks Goal 2:: Patient will asc/desc 8 recip with 1 HR Goal Time Frame: 4-6 Weeks Goal 3:: Patient will ambulate >300 feet with a normalized gait pattern Goal Time Frame: 4-6 Weeks Goal 4:: Patient will maintain proper posture t/o tx session to demo increased core s/s Goal Time Frame: 4-6 Weeks Goal 5:: Patient will report 80% improvement Goal Time Frame: 4-6 Weeks Rehabilitation Potential Physical Therapy Diagnosis: Patient presents with hypomobility- she has decreased LE and core strength/stabilization, flex, ROM and muscular endurance leading to increased pain and decreased ability to perform ADL's. Rehabilitation Potential: Good Anticipated Interventions Patient/Client Instruction: Educate patient on: Benefits of Fitness Program Therapeutic Exercise to Include: Strength training, Endurance training, Balance training, Coordination, Agility training, Body mechanics, Postural training, Flexibilty training, Gait and locomotor training, Neuromotor development, In an aquatic setting, Dynamic Lumbar Stabilization and Scapular Strength/Stabilization For the Purpose of:: To improve muscle performance and motor function Text: Thank you for the opportunity to evaluate your patient. For Medicare and Medicare HMO plans, please review the plan of care and approve it. It will need to be FAXED BACK to us at [phone] for Medicare purposes. For Medicare only, by signing this I certify the plan of care. Please let me know if there are questions or concerns regarding this plan of care. Physician Signature: Date:
--- NOTE | 2023-06-24 13:58 | HP.PTREVAL ---
Re-Evaluation Intro: Dr. Pineda Langston, DO, It has been my pleasure to treat EVER VERDUZCO over the last 5 visits for Right Knee OA. Please see the progress note below for an update on the physical therapy plan of care! Subjective Subjective: Patient reports that she has a bad liver- she was in/out of the hospital for like 8 days. She really feels that she has not been able to give water therapy a fair chance since she has not been in the pool enough. Worst: 05/03. Pain is located along the whole anterior portion of the knee. Objective Objective/Function: Posture: FH, RS- can correct with verbal cues but does not maintain Gait: antalgic- decreased stance time on the left LE with poor heel strike due to lack of extn HR/TR: able with UE A SLS: weight shift but unable to SLS Palpation: tender along medial joint line Sensation: WFL to gross touch bilateral ROM: 20 degrees from full extension to 120 degrees of flexion- pain at end ranges Strength: Ankle: 5/5, Knee: 4+/5 in available range, Hip: 4/5, Core: fair minus Flex: HS: severe, Gastroc: severe Plan Plan Plan: 06/24/23: Aquatic Therapy- focus on LE and core strength/stabilization and functional mobility.- she was in/out of the hospital- will re-start PT Aquatic Therapy- focus on LE and core strength/stabilization and functional mobility. Balance/Gait/Functional tests Balance/Special Test Scores Lower Extremity Functional Score: 25 Goals Goals Goal 1:: Patient will be I with HEP and progression Goal Time Frame: 4-6 Weeks Goal 2:: Patient will asc/desc 8 recip with 1 HR Goal Time Frame: 4-6 Weeks Goal 3:: Patient will ambulate >300 feet with a normalized gait pattern Goal Time Frame: 4-6 Weeks Goal 4:: Patient will maintain proper posture t/o tx session to demo increased core s/s Goal Time Frame: 4-6 Weeks Goal 5:: Patient will report 80% improvement Goal Time Frame: 4-6 Weeks Anticipated Interventions Anticipated Interventions Patient/Client Instruction: Educate patient on: Benefits of Fitness Program Therapeutic Exercise to Include: Strength training, Endurance training, Balance training, Coordination, Agility training, Body mechanics, Postural training, Flexibilty training, Gait and locomotor training, Neuromotor development, In an aquatic setting, Dynamic Lumbar Stabilization and Scapular Strength/Stabilization For the Purpose of:: To improve muscle performance and motor function Re-Evaluation Ending Re-evaluation ending: Please do not hesitate to contact me at [phone] by phone or if you have questions or concerns regarding this new plan of care! Sincerely, JODEE RamirezT
--- NOTE | 2023-10-21 08:15 | HP.PT.NRP ---
Patient Information Patient Information: EVER VERDUZCO was seen in my office for initial evaluation on 05/11/23. The following Plan of Care was established for this patient: POC Established Initial Frequency: 2x /Week Initial Duration: 4 Weeks Anticipated Interventions Patient/Client Instruction: Educate patient on: Benefits of Fitness Program Therapeutic Exercise to Include: Strength training, Endurance training, Balance training, Coordination, Agility training, Body mechanics, Postural training, Flexibilty training, Gait and locomotor training, Neuromotor development, In an aquatic setting, Dynamic Lumbar Stabilization and Scapular Strength/Stabilization For the Purpose of:: To improve muscle performance and motor function Last Seen Last Seen: This patient was last seen in our office . Pertinent comments regarding their Physical therapy will appear below: Patient has been in/out of the hospital and is appropriate to be d/c from PT at this time until medically stable. At this point I will be discontinuing this patient from physical therapy. I would be happy to see this patient again in the future if found appropriate by the physician. Thank you! Maryjo Cruz, JODEET Balance/Gait/Functional tests Balance/Special Test Scores Lower Extremity Functional Score: 25
== END 2023-08-02 19:00 | disposition home or self-care (01) ==
LOC: PT 13:30
PROVIDERS: PCP Nurse Practitioner Family; Referring Provider Orthopaedic Surgery; Visit Provider Orthopaedic Surgery
DX: M17.11 Unilateral primary osteoarthritis, right knee (principal)
CPT/HCPCS: 97113; 97162; 97164

== ENCOUNTER 2023-08-16 18:30 | Emergency (ER) | payer MEDICAID, SELFPAY ==
[2023-08-16 18:31] VITALS: BP 136/67; PULSE 63; RESP 17; TEMP 36.6; O2SAT 94; BMI 47.8
[2023-08-16 18:46] LABS: Bacteria 0 SEEN /hpf (None Seen); Mucous, Urine 0 SEEN /hpf (<or=2+); Red Blood Cells-Urine 0 SEEN /hpf (0-5); White Blood Cells 0 SEEN /hpf (0-5)
[2023-08-16 18:52] LABS: Color, Urine Yellow (Yellow); Glucose, Dipstick 1000 mg/dl (Normal); Ketone-Dipstick Negative (Negative); Leukocyte Esterase-Dipstick Negative /ul (Negative); Nitrite-Dipstick Negative (Negative); Occult Blood-Urine 10 /ul (Negative); Protein-Dipstick Negative (Negative); Urine Bilirubin Dipstick Negative (Negative); Urine Clarity Clear (Clear); Urine Urobilinogen Normal (Normal)
[2023-08-16 19:20] LABS: Squamous Epithelial Cells - UA 0-5 SEEN /hpf (5-10)
--- NOTE | 2023-08-16 19:53 | ED.RN ---
called for pt multiple times with no answer.
== END 2023-08-16 19:50 | disposition left against medical advice (07) ==
LOC: ED 19:56
PROVIDERS: PCP Nurse Practitioner Family
DX: R10.9 Unspecified abdominal pain (principal)
CPT/HCPCS: 81001

== ENCOUNTER → 2023-08-24 | Outpatient (CLI) | payer MEDICAID, SELFPAY ==
[2023-08-24 16:00] LABS: Absolute Lymphocyte Count 1.15 X10^3/uL (0.83-4.51); Absolute Neutrophil Count 3.3 X10^3/uL (2.0-7.7); Basophil# 0.04 X10^3/uL; Basophil% 0.8 % (0-1); Eosinophil# 0.22 X10^3/uL; Eosinophils% 4.2 % (0-5); Hematocrit 45.7 % (37-47); Hemoglobin 16.1 g/dL (12.0-15.0); Lymphocyte # 1.15 X10^3/ul (0.83-4.51); Lymphocyte % 21.8 % (19-41); Mean Corp Hgb Conc 35.2 g/dL (32-36); Mean Corpuscular Hgb 34.3 pg (27.0-32.0); Mean Corpuscular Volume 97.2 fL (81-99); Mean Platelet Vol. 10.5 fl (6.2-12.0); Monocyte# 0.57 X10^3/uL; Monocyte% 10.8 % (0-10); NRBC Flagged by Analyzer 0 % (0-5); Neutrophil # 3.26 X10^3/uL (2.7-7.7); Neutrophil % 61.8 % (47-70); POSITIVE COUNT YES; Platelet Count 98 K/mm3 (150-450); RBC Distribution Width SD 46.9 fl (35.1-43.9); White Blood Count 5.3 K/mm3 (4.4-11.0)
[2023-08-24 16:13] LABS: Erythrocyte Sedimentation Rate 7 mm/hr (0-30)
[2023-08-24 16:33] LABS: ALB/GLOB Ratio 0.9 RATIO (0.9-2.4); AST(SGOT) 27 U/L (15-37); Alanine Aminotransfer ALT/SGPT 28 U/L (13-56); Albumin, Serum 3.1 g/dL (3.2-5.0); Alkaline Phosphatase 202 U/L (45-117); Anion Gap 2 (5-15); BUN 8 mg/dL (7-18); BUN/Creat Ratio 10.1 RATIO (10-20); CRP 5.44 mg/L (0.0-3.0); Calcium,Total 9.2 mg/dL (8.5-10.1); Chloride 109 mmol/L (98-107); Creatinine, Serum 0.79 mg/dL (0.55-1.02); EST Glomerular Filtration Rate 80 mL/min (>60); Est Glom Filt Rate - Afr Amer 97 mL/min (>60); Globulin 3.6 g/dL (2.2-4.2); Glucose 155 mg/dL (74-106); LDH 268 U/L (84-246); Potassium 4.4 mmol/L (3.5-5.1); Protein, Total 6.7 g/dL (6.4-8.2); Sodium Level 139 mmol/L (136-145)
[2023-08-24 20:21] LABS: International Normalized Ratio 1.2; Prothrombin Time (Protime)PT. 14.9 SECONDS (11.7-14.9)
== END | disposition home or self-care (01) ==
LOC: LAB 15:26
PROVIDERS: PCP Nurse Practitioner Family; Referring Provider Internal Medicine Gastroenterology; Visit Provider Internal Medicine Gastroenterology
DX: K74.60 Unspecified cirrhosis of liver (principal)
CPT/HCPCS: 36415; 80053; 82140; 83615; 85025; 85610; 85652; 86140

== ENCOUNTER 2023-09-13 17:52 | Inpatient (IN) | payer MEDICAID, SELFPAY ==
[2023-09-13 17:53] VITALS: BP 169/79; PULSE 59; RESP 16; TEMP 36.6; O2SAT 96; BMI 47.3
[2023-09-13 18:58] LABS: Absolute Lymphocyte Count 1.31 X10^3/uL (0.83-4.51); Absolute Neutrophil Count 2.9 X10^3/uL (2.0-7.7); Basophil# 0.04 X10^3/uL; Basophil% 0.8 % (0-1); Eosinophil# 0.36 X10^3/uL; Eosinophils% 6.9 % (0-5); Hematocrit 46.1 % (37-47); Hemoglobin 15.6 g/dL (12.0-15.0); Lymphocyte # 1.31 X10^3/ul (0.83-4.51); Lymphocyte % 25.1 % (19-41); Mean Corp Hgb Conc 33.8 g/dL (32-36); Mean Corpuscular Hgb 33.8 pg (27.0-32.0); Mean Corpuscular Volume 99.8 fL (81-99); Mean Platelet Vol. 11.3 fl (6.2-12.0); Monocyte# 0.63 X10^3/uL; Monocyte% 12.1 % (0-10); NRBC Flagged by Analyzer 0 % (0-5); Neutrophil # 2.85 X10^3/uL (2.7-7.7); Neutrophil % 54.7 % (47-70); POSITIVE COUNT YES; Platelet Count 72 K/mm3 (150-450); RBC Distribution Width CV 13.1 % (11.6-14.6); RBC Distribution Width SD 47.8 fl (35.1-43.9); Red Blood Count 4.62 M/mm3 (4.2-5.4); White Blood Count 5.2 K/mm3 (4.4-11.0)
[2023-09-13 19:04] LABS: Bacteria 0 SEEN /hpf (None Seen); Mucous, Urine 0 SEEN /hpf (<or=2+); White Blood Cells 0 SEEN /hpf (0-5)
--- NOTE | 2023-09-13 19:05 | ED.RN ---
Thick. bulky dressing applied.
[2023-09-13 19:07] LABS: Color, Urine Yellow (Yellow); Glucose, Dipstick 1000 mg/dl (Normal); Ketone-Dipstick Negative (Negative); Leukocyte Esterase-Dipstick Negative /ul (Negative); Nitrite-Dipstick Negative (Negative); Occult Blood-Urine 10 /ul (Negative); Protein-Dipstick Negative (Negative); Urine Bilirubin Dipstick Negative (Negative); Urine Clarity Clear (Clear); Urine Urobilinogen 1 mg/dl (Normal)
[2023-09-13 19:11] LABS: International Normalized Ratio 1.2; Prothrombin Time (Protime)PT. 15.5 SECONDS (11.7-14.9)
[2023-09-13 19:15] LABS: Red Blood Cells-Urine 0-5 SEEN /hpf (0-5); Squamous Epithelial Cells - UA 0-5 SEEN /hpf (5-10)
[2023-09-13 19:19] LABS: AST(SGOT) 24 U/L (15-37); Alanine Aminotransfer ALT/SGPT 26 U/L (13-56); Alkaline Phosphatase 204 U/L (45-117); Amylase 77 U/L (25-115); Anion Gap 2 (5-15); BUN 12 mg/dL (7-18); BUN/Creat Ratio 12.5 RATIO (10-20); Bilirubin, Direct 0.43 mg/dL (0.00-0.30); Chloride 107 mmol/L (98-107); Creatinine, Serum 0.96 mg/dL (0.55-1.02); EST Glomerular Filtration Rate 64 mL/min (>60); Est Glom Filt Rate - Afr Amer 78 mL/min (>60); Estimated Creatinine Clearance 65.15 ml/min; Globulin 3.7 g/dL (2.2-4.2); Glucose 315 mg/dL (74-106); Lipase 77 U/L (13-75); Potassium 4.6 mmol/L (3.5-5.1); Protein, Total 6.7 g/dL (6.4-8.2); Sodium Level 138 mmol/L (136-145)
--- NOTE | 2023-09-13 19:25 | EX.ED.DYSGE1 ---
HPI <ALFRED Meier - Last Filed: 09/13/23 20:01> History of Present Illness Chief Complaint: Abn Labs Narrative Narrative: Patient is a 52-year-old female with history of alcoholic cirrhosis, primary biliary cholangitis history of elevated ammonia levels. Patient was recently admitted at hospital in [place]. Patient was there for 1 night, her ammonia was elevated then, she was then discharged today and her ammonia was 100. They told her to continue her lactulose and follow-up outpatient. Per the brother, the patient still acting confused, and he is here for reevaluation. The reason why he did not go back to the hospital [place] is because he is not happy with the care there. Patient is alert and orient x1-2 per her brother, but he is concerned because she is more confused than normal. PFSH <ALFRED Meier - Last Filed: 09/13/23 20:01> [facility] Medical History Acidosis Alcohol abuse Alcohol use Alcoholic cirrhosis of liver without ascites Anxiety and depression Bipolar disorder Cirrhosis Depression Easy bruising Edema Eosinophilia, unspecified Essential (primary) hypertension Former smoker Gastric reflux Hepatic encephalopathy Hepatitis History of edema History of IBS History of pain when walking Hx of scarlet fever Immunity status testing Iron deficiency anemia Lactic acidosis Low urine output Neutropenia Pancytopenia Portal hypertension Post-menopausal Restless legs Shortness of breath on exertion Splenomegaly Thrombocytopenia Urea cycle metabolism disorder UTI (urinary tract infection) Wears dentures Wears glasses Home Medications citalopram 40 mg tablet 40 mg PO DAILY depression 10/28/22 [History Last Taken Unknown] quetiapine 50 mg tablet (Seroquel) 100 mg PO QHS sleep 10/28/22 [History Last Taken Unknown] rifaximin 550 mg tablet (Xifaxan) 550 mg PO BID cirrhosis 10/28/22 [History Last Taken Unknown] bupropion HCl 300 mg 24 hr tablet, extended release 300 mg PO DAILY depression 11/18/22 [History Last Taken Unknown] spironolactone 25 mg tablet 50 mg (2 x 25 mg) PO DAILY diuretic 30 days #60 tabs 11/20/22 [Rx Last Taken Unknown] ursodiol 300 mg capsule 300 mg PO BID cholesterol #180 caps 12/15/22 [Rx Last Taken Unknown] buspirone 10 mg tablet 10 - 20 mg PO TID PRN PRN Anxiety 12/17/22 [History Last Taken Unknown] lactulose 10 gram/15 mL oral solution 30 ml PO Q6H #946 mL 04/07/23 [Rx Last Taken Unknown] loratadine 10 mg tablet (Claritin) 10 mg PO DAILY allergies 04/19/23 [History Last Taken Unknown] ondansetron 4 mg disintegrating tablet mg 06/09/23 [History Last Taken Unknown] prazosin 1 mg capsule mg 06/09/23 [History Last Taken Unknown] ferrous sulfate 325 mg (65 mg iron) tablet (FeroSul) 325 mg PO Q OTHER DAY 08/30/23 [History Last Taken Unknown] furosemide 40 mg tablet 40 mg PO BID 1 month #60 tabs 08/30/23 [Rx Last Taken Unknown] propranolol 40 mg tablet 60 mg (1.5 x 40 mg) PO BID 30 days #90 tabs 08/30/23 [Rx Last Taken Unknown] Allergy/AdvReac Type Severity Reaction Status Date / Time No Known Allergies Allergy Verified 09/13/23 17:55 Family History Grandmother Breast cancer Surgical History History of ankle surgery Hx of section Hx of cholecystectomy Hx of hand surgery Hx of shoulder surgery Hx of total knee replacement Social History household members: family Smoking Status: Never smoker Electronic Cigarette Use: with nicotine how long ago did patient quit smoking: Transitioned from cig tob to vaping, heavy currently. alcohol intake: former year quit: 2021 details: 11/26/21 substance use type: other details: Former amphetamine/meth use, clean since 11/26/21. ROS <ALFRED Meier - Last Filed: 09/13/23 20:01> ROS ED ROS Narrative Constitutional: Negative for fever, chills, weight loss. Positive for weakness and a feeling of not right Eyes: Negative for vision loss, vision change, double vision ENT: Negative for any sore throat, ear pain, congestion Cardiovascular: Negative for any chest pain, tightness, palpitations Respiratory: Negative for any cough, sputum production, hemoptysis, dyspnea, dyspnea on exertion, orthopnea Gastrointestinal: Negative for any abdominal pain, nausea, vomiting, diarrhea, constipation, blood in stool, blood in vomit : Negative for any urinary frequency, dysuria, retention, blood in urine Muscle skeletal: Negative for any myalgias, arthralgias, neck pain, back pain Neurological: Negative for any headache, syncope, numbness or tingling, dizziness. Patient states that she can tell that she is not taking properly Skin: Negative for any rashes, lumps, itching, abrasions, lacerations Psychiatric: Negative for any depression, anxiety, stress, suicidal ideation, homicidal ideation Hematologic: Negative for any easy bruising, excessive bruising, easy bleeding Allergies: Negative for any eczema, hives, rash EXAM <ALFRED Meier - Last Filed: 09/13/23 20:01> Physical Exam Narrative Exam Narrative: Vital signs reviewed. Patient does answer her name, birthdate correctly. Patient does know she is at [facility]. Patient was unable to tell me the day, month or even the year. Per the brother, she is much more confused than usual. HEET: Head normocephalic atraumatic, TMs clear bilaterally. Posterior pharynx is clear, dry mucous membranes. Nares clear bilaterally. Neck: Supple with no lymphadenopathy or tenderness. No signs of meningismus. Cardiac: Regular rate and rhythm no murmurs gallops or rubs, equal peripheral pulses bilaterally. Respiratory: Lungs clear to auscultation bilaterally. No chest tenderness. Abdomen: Soft, nontender, nondistended. No abdominal bruit or pulsatile masses. No hepatosplenomegaly Extremities: No peripheral edema, no signs of gross trauma or deformity. Active full range of motion of all extremities. Neuro: Cranial nerves II through XII intact, no focal neurological deficits. Skin: Clean dry and intact with no rash, purpura, petechiae, vesicles or pustules. Backs/flank: No CVA tenderness, no midline spinal tenderness, no deformity. Psych: Normal mood and affect. No SI, HI or acute psychosis. Const Vital Signs: 09/13/23 17:53 09/13/23 18:43 Temperature 98 F Temperature Source Temporal Pulse Rate 59 L Respiratory Rate 16 Respiratory Pattern Normal Blood Pressure 169/79 H Blood Pressure Mean 109 Pulse Ox 96 Oxygen Delivery Method Room Air <Dr. Eyal Landers DO - Last Filed: 09/13/23 19:58> Physical Exam Const Vital Signs: 09/13/23 17:53 09/13/23 18:43 Temperature 98 F Temperature Source Temporal Pulse Rate 59 L Respiratory Rate 16 Respiratory Pattern Normal Blood Pressure 169/79 H Blood Pressure Mean 109 Pulse Ox 96 Oxygen Delivery Method Room Air MDM <ALFRED Meier - Last Filed: 09/13/23 20:01> [facility] Lab Data Labs: Laboratory Results - last 24 hr 09/13/23 09/13/23 09/13/23 18:34 18:39 18:59 WBC 5.2 RBC 4.62 Hgb 15.6 H Hct 46.1 MCV 99.8 H MCH 33.8 H MCHC 33.8 RDW Std Deviation 47.8 H RDW Coeff of Stephon 13.1 Plt Count 72 L MPV 11.3 Immature Gran % (Auto) 0.400 Neut % (Auto) 54.7 Lymph % (Auto) 25.1 [place] % (Auto) 12.1 H Eos % (Auto) 6.9 H Baso % (Auto) 0.8 Absolute Neuts (auto) 2.9 Absolute Lymphs (auto) 1.31 Nucleated RBC % 0 PT 15.5 H INR 1.2 Sodium 138 Potassium 4.6 Chloride 107 Carbon Dioxide 29.0 Anion Gap 2 L BUN 12 Creatinine 0.96 Estim Creat Clear Calc 65.15 Est GFR (MDRD) Af Amer 78 Est GFR (MDRD) Non-Af 64 BUN/Creatinine Ratio 12.5 Glucose 315 H Calcium 9.0 Total Bilirubin 1.20 H Direct Bilirubin 0.43 H AST 24 ALT 26 Alkaline Phosphatase 204 H Ammonia 165.0 H Total Protein 6.7 Albumin 3.0 L Globulin 3.7 Amylase 77 Lipase 77 H Urine Color Yellow Urine Clarity Clear Urine pH 7.0 Ur Specific [place] 1.010 Urine Protein Negative Urine Glucose (UA) 1000 H Urine Ketones Negative Urine Occult Blood 10 H Urine Nitrite Negative Urine Bilirubin Negative Urine Urobilinogen 1 H Ur Leukocyte Esterase Negative Urine RBC 0-5 SEEN Urine WBC 0 SEEN Ur Squamous Epith Cells 0-5 SEEN Urine Bacteria 0 SEEN Urine Mucus 0 SEEN Treatment and Re-Evaluation :: Patient is in no respiratory distress, vital signs are stable. Patient is alert and orient x1-2 however is confused. She is responsive, is unable to give the year, time of year, month or date. Differential diagnosis includes elevated ammonia, TIA, CVA, infectious process. Patient's laboratory values showed hemoconcentrated with a hemoglobin of 15.6. Patient's PT was 15.5 with a INR within normal limits at 1.2. Patient's ammonia level was greatly elevated at 165 creatinine 1.2. Bilirubin 0.43. Patient's alkaline phosphatase is 204, this seems to be baseline from February 2023. Lipase was slightly elevated at 77. At this time, secondary to the elevated ammonia level, patient showing signs and symptoms of headache encephalopathy, I do believe the patient needs to be admitted to the hospital. I will reach out to the hospitalist. Urinalysis was negative for infection. I spoke with hospitalist, patient will be admitted. <Dr. Eyal Landers, DO - Last Filed: 09/13/23 19:58> [facility] Narrative Medical decision making narrative: I have personally performed a face to face assessment of the patient and have reviewed the NORY Note. I performed a substantive portion of the visit including all aspects of the following. My carey findings include: History: Patient presents with worsening confusion that became worse today. Patient was recently admitted to [facility] for hepatic encephalopathy. Spouse states that patient's ammonia level had been improving and was down to 100. Patient was discharged from there today. Patient became more confused today. Patient was then brought back to the emergency department here. Patient states she feels shaky at times. Patient admits to nausea but denies any vomiting. Patient denies any fevers or chills. Exam: Vital signs are stable. Patient is afebrile. Patient is in no acute distress. Oral mucosa is pink and moist. Cranial nerves II through XII are intact. Strength is 5/5 bilaterally in the upper and lower extremities. There are no focal motor or sensory deficits noted. Patient is somewhat confused. Patient does not answer questions appropriately. Heart was regular rate and rhythm. Lungs are clear and equal bilaterally. Abdomen is soft. Bowel sounds are normal. There is some mild epigastric tenderness. There is no rebound or guarding noted. Medical Decision Making: Differential diagnosis includes cirrhosis, hepatic encephalopathy, electrolyte abnormality, and anemia. CBC will be obtained to assess for leukocytosis and anemia. Comprehensive metabolic profile will be obtained to assess for hepatic function, renal function, and electrolyte abnormality. PT with INR will be obtained to assess for coagulopathy. Ammonia level will be obtained to assess for hepatic encephalopathy. Lipase will be obtained to assess for pancreatitis. Urinalysis will be obtained to assess for urinary tract infection. CBC was reviewed. Platelets were low at 72. This is essentially unchanged from previous results. PT with INR was reviewed. PT was 15.5 and INR is 1.2. Comprehensive metabolic profile was reviewed. Glucose was elevated at 315. Total bilirubin was slightly elevated at 1.2. Direct bilirubin was slightly elevated at 0.43. AST and ALT were within normal limits. Alkaline phosphatase was mildly elevated at 204. Serum ammonia level was reviewed and was elevated at 165. Amylase was reviewed and was normal at 77. Lipase was reviewed and was slightly elevated at 77. Urinalysis was reviewed. There is no evidence of urinary tract infection or hematuria. Patient was given a dose of lactulose here. Case was discussed with the hospitalist. He will admit the patient to his service. Family understood and was agreeable with the plan. All questions were answered. Lab Data Labs: Laboratory Results - last 24 hr 09/13/23 09/13/23 09/13/23 18:34 18:39 18:59 WBC 5.2 RBC 4.62 Hgb 15.6 H Hct 46.1 MCV 99.8 H MCH 33.8 H MCHC 33.8 RDW Std Deviation 47.8 H RDW Coeff of Stephon 13.1 Plt Count 72 L MPV 11.3 Immature Gran % (Auto) 0.400 Neut % (Auto) 54.7 Lymph % (Auto) 25.1 [place] % (Auto) 12.1 H Eos % (Auto) 6.9 H Baso % (Auto) 0.8 Absolute Neuts (auto) 2.9 Absolute Lymphs (auto) 1.31 Nucleated RBC % 0 PT 15.5 H INR 1.2 Sodium 138 Potassium 4.6 Chloride 107 Carbon Dioxide 29.0 Anion Gap 2 L BUN 12 Creatinine 0.96 Estim Creat Clear Calc 65.15 Est GFR (MDRD) Af Amer 78 Est GFR (MDRD) Non-Af 64 BUN/Creatinine Ratio 12.5 Glucose 315 H Calcium 9.0 Total Bilirubin 1.20 H Direct Bilirubin 0.43 H AST 24 ALT 26 Alkaline Phosphatase 204 H Ammonia 165.0 H Total Protein 6.7 Albumin 3.0 L Globulin 3.7 Amylase 77 Lipase 77 H Urine Color Yellow Urine Clarity Clear Urine pH 7.0 Ur Specific [place] 1.010 Urine Protein Negative Urine Glucose (UA) 1000 H Urine Ketones Negative Urine Occult Blood 10 H Urine Nitrite Negative Urine Bilirubin Negative Urine Urobilinogen 1 H Ur Leukocyte Esterase Negative Urine RBC 0-5 SEEN Urine WBC 0 SEEN Ur Squamous Epith Cells 0-5 SEEN Urine Bacteria 0 SEEN Urine Mucus 0 SEEN Discharge Plan Dx/Rx/DC Orders Clinical Impression: Cirrhosis, Acute hepatic encephalopathy Disposition Disposition: Acute Care Hospital [facility]
[2023-09-13] MEDS: Lactulose 20 GM/30 ML UDC PO ×2 (19:57→22:46)
[2023-09-13 20:01] VITALS: BP 112/59; PULSE 78; RESP 16; O2SAT 97
--- NOTE | 2023-09-13 20:10 | HP.PCM.HOS_ITS ---
[facility] - General General Date of Admission: 09/13/23 Date of Service: 09/13/23 Chief Complaint: Confusion. HPI Narrative EVER MCKEON, is a 52 F with a past medical history of essential hypertension, morbid obesity; with BMI of 47.3 this admission, Bipolar disorder, history of tobacco abuse (quit 2012), BARBARA, RLS, history of methamphetamine abuse (quit 2021), history of primary biliary cholangitis, history of hepatitis B, previous EtOH Abuse (allegedly sober for the past 2 years) with subsequent cirrhosis and portal hypertension, gastroesophageal varices, splenomegaly and thrombocytopenia plus Hepatic Encephalopathy followed by Dr. Aponte of Hepatology for ESLD; already prescribed lactulose and Rifaximin and apparently on the transplant list with a recent MELD score of 10 and Child-Gonzalez class B earlier this month who presents [facility] ER complaining of confusion. Ms. Mckeon is not a fully-reliable historian at this time so information was gathered from chart, medical staff, computer and her brother, Vaibhav, who was present at the bedside in the ER. According to Vaibhav she was just discharged from [facility] with Hyperammonemia of 100 after she clinically improved after receiving her regularly scheduled medications. He reports she missed her last 4 doses of her medications over the past 24 hours prior to her recent hospitalization. She became increasingly confused and the staff at [place] recommended he bring her here because her electrical maintenance man is here. Vaibhav's job is driving the [employer] around and he therefore cannot attend to her during the day; in spite of his best efforts. He claims someone tried to set up home health care in the recent past but it was not yet able to be arranged. The patient is pleasantly confused (with her intermittently oriented to person and place but not time) and she denies pain, fever, chills, nausea or vomiting. She does know her alarm is going off at home that signals that it is time to take her medications - but she is apparently not mentally able to take her complex medical regimen as prescribed without consistent, responsible supervision. She was then diagnosed with Hepatic Encephalopathy evidenced by Hyperammonemia of 165 present on admission due to Medical Noncompliance and thrombocytopenia of 72 present on admission with apparently new onset diabetes mellitus type 2 evidenced by hyperglycemia of 315 mg/dL present on admission in the setting of end-stage liver disease and she was then admitted to the general medical floor for ongoing care under observation status for a stay that is expected to be less than 48 hours. [facility], LAT[facility] Medical History Acidosis Alcohol abuse Alcohol use Alcoholic cirrhosis of liver without ascites Anxiety and depression Bipolar disorder Cirrhosis Depression Easy bruising Edema Eosinophilia, unspecified Essential (primary) hypertension Former smoker Gastric reflux Hepatic encephalopathy Hepatitis History of edema History of IBS History of pain when walking Hx of scarlet fever Immunity status testing Iron deficiency anemia Lactic acidosis Low urine output Neutropenia Pancytopenia Portal hypertension Post-menopausal Restless legs Shortness of breath on exertion Splenomegaly Thrombocytopenia Urea cycle metabolism disorder UTI (urinary tract infection) Wears dentures Wears glasses Home Medications citalopram 40 mg tablet 40 mg PO DAILY depression 10/28/22 [History Last Taken Unknown] quetiapine 50 mg tablet (Seroquel) 100 mg PO QHS sleep 10/28/22 [History Last Taken Unknown] rifaximin 550 mg tablet (Xifaxan) 550 mg PO BID cirrhosis 10/28/22 [History Last Taken Unknown] bupropion HCl 300 mg 24 hr tablet, extended release 300 mg PO DAILY depression 11/18/22 [History Last Taken Unknown] spironolactone 25 mg tablet 50 mg (2 x 25 mg) PO DAILY diuretic 30 days #60 tabs 11/20/22 [Rx Last Taken Unknown] ursodiol 300 mg capsule 300 mg PO BID cholesterol #180 caps 12/15/22 [Rx Last Taken Unknown] buspirone 10 mg tablet 10 - 20 mg PO TID PRN PRN Anxiety 12/17/22 [History Last Taken Unknown] lactulose 10 gram/15 mL oral solution 30 ml PO Q6H #946 mL 04/07/23 [Rx Last Taken Unknown] loratadine 10 mg tablet (Claritin) 10 mg PO DAILY allergies 04/19/23 [History Last Taken Unknown] ondansetron 4 mg disintegrating tablet mg 06/09/23 [History Last Taken Unknown] prazosin 1 mg capsule mg 06/09/23 [History Last Taken Unknown] ferrous sulfate 325 mg (65 mg iron) tablet (FeroSul) 325 mg PO Q OTHER DAY 08/30/23 [History Last Taken Unknown] furosemide 40 mg tablet 40 mg PO BID 1 month #60 tabs 08/30/23 [Rx Last Taken Unknown] propranolol 40 mg tablet 60 mg (1.5 x 40 mg) PO BID 30 days #90 tabs 08/30/23 [Rx Last Taken Unknown] Allergy/AdvReac Type Severity Reaction Status Date / Time No Known Allergies Allergy Verified 09/13/23 17:55 Family History Grandmother Breast cancer Surgical History History of ankle surgery Hx of section Hx of cholecystectomy Hx of hand surgery Hx of shoulder surgery Hx of total knee replacement Social History household members: family Smoking Status: Never smoker Electronic Cigarette Use: with nicotine how long ago did patient quit smoking: Transitioned from cig tob to vaping, heavy currently. alcohol intake: former year quit: 2021 details: 11/26/21 substance use type: other details: Former amphetamine/meth use, clean since 11/26/21. ROS ROS Narrative Full review of systems was not able to be completed at this time due to patient' s severe hepatic encephalopathy. Review of Systems ROS Unobtainable: due to encephalopathy Vital Signs Vital Signs Vital Signs: 09/13/23 17:53 09/13/23 18:43 09/13/23 20:01 Temperature 98 F Temperature Source Temporal Pulse Rate 59 L 78 Respiratory Rate 16 16 Respiratory Pattern Normal Blood Pressure 169/79 H 112/59 L Blood Pressure Mean 109 76 Pulse Ox 96 97 Oxygen Delivery Method Room Air Room Air Weight Weight: 302 lb 2 oz Body Mass Index (BMI) 47.3 Physical Exam Const alert and no apparent distress Constitutional Narrative: Patient appears morbidly obese and is pleasantly confused. General Appearance: cooperative Orientation / Consciousness: confused HEENT normocephalic, head/scalp atraumatic, hearing grossly normal bilaterally, moist oral mucous membranes and oropharynx normal Mouth: oral and palatal mucosa normal Eyes PERRL Neck no lymphadenopathy Resp normal respiratory effort, no retractions, no use of accessory muscles and clear to auscultation bilaterally Cardio regular rate, regular rhythm, S1 normal heart sound and S2 normal heart sound GI normal to inspection, nondistended, normoactive bowel sounds, soft to palpation, non-tender and non-distended Extremity normal to inspection and full ROM Neuro CN's II-XII intact bilaterally, moves all extremities and no focal motor deficits Sensorium / Orientation: awake, alert, oriented to person and oriented to place Speech: speech normal Motor Exam: strength 5/5 throughout Psych affect normal Psych Narrative: Patient is pleasantly confused. She can answer some yes/no questions but cannot give detailed answers to complex questions at this time. Results Medical Records Data Attestation: I reviewed the patient's medical records Lab / Micro Data Attestation: I reviewed the patient's lab results. 09/13/23 18:34 09/13/23 18:34 Labs: Laboratory Results - last 24 hr 09/13/23 18:34: WBC 5.2, RBC 4.62, Hgb 15.6 H, Hct 46.1, MCV 99.8 H, MCH 33.8 H, MCHC 33.8, RDW Std Deviation 47.8 H, RDW Coeff of Stephon 13.1, Plt Count 72 L, MPV 11.3, Immature Gran % (Auto) 0.400, Neut % (Auto) 54.7, Lymph % (Auto) 25.1, Towns % (Auto) 12.1 H, Eos % (Auto) 6.9 H, Baso % (Auto) 0.8, Absolute Neuts (auto) 2.9, Absolute Lymphs (auto) 1.31, Nucleated RBC % 0, PT 15.5 H, INR 1.2, Sodium 138, Potassium 4.6, Chloride 107, Carbon Dioxide 29.0, Anion Gap 2 L, BUN 12, Creatinine 0.96, Estim Creat Clear Calc 65.15, Est GFR (MDRD) Af Amer 78, Est GFR (MDRD) Non-Af 64, BUN/Creatinine Ratio 12.5, Glucose 315 H, Calcium 9.0, Total Bilirubin 1.20 H, Direct Bilirubin 0.43 H, AST 24, ALT 26, Alkaline Phosphatase 204 H, Total Protein 6.7, Albumin 3.0 L, Globulin 3.7, Amylase 77, Lipase 77 H 09/13/23 18:39: Ammonia 165.0 H 09/13/23 18:59: Urine Color Yellow, Urine Clarity Clear, Urine pH 7.0, Ur Specific Crum 1.010, Urine Protein Negative, Urine Glucose (UA) 1000 H, Urine Ketones Negative, Urine Occult Blood 10 H, Urine Nitrite Negative, Urine Bilirubin Negative, Urine Urobilinogen 1 H, Ur Leukocyte Esterase Negative, Urine RBC 0-5 SEEN, Urine WBC 0 SEEN, Ur Squamous Epith Cells 0-5 SEEN, Urine Bacteria 0 SEEN, Urine Mucus 0 SEEN Assessment & Plan Assessment/Plan (1) Acute hepatic encephalopathy: (2) Cirrhosis: QUALIFIERS: Hepatic cirrhosis type: alcoholic cirrhosis Ascites presence: without ascites Qualified Code(s): K70.30 - Alcoholic cirrhosis of liver without ascites (3) Medical non-compliance: (4) Diabetes mellitus, type 2: QUALIFIERS: Diabetes mellitus intermission coordinator insulin use: without shelter use Diabetes mellitus complication status: with hyperglycemia Qualified Code(s): E11.65 - Type 2 diabetes mellitus with hyperglycemia PLAN: Plan 1. Hepatic encephalopathy with hyperammonemia of 165 present on admission; recurrent - Admit to general medical floor under observation status. Restart lactulose and rifaximin already reinitiated in the ER. Check daily ammonia level to follow trend. Finally, we will consult Dr. Aponte of the hepatology service to see this patient on rounds in the a.m. with help appreciated in advance. 2. Medical noncompliance with complex medical regimen as the underlying cause of #1 - This patient will need home health care and as much assistance as can be given to prevent further serial readmission. She knows she needs to take her medications but she does not have the intellectual capacity to take them as prescribed. 3. End-stage liver disease with history of primary biliary cholangitis, hepatitis B and previous heavy alcohol abuse with subsequent cirrhosis, portal hypertension, splenomegaly with thrombocytopenia followed by Dr. Aponte of the hepatology service complicating #1 & #2 - Noted. Follow CMP daily. Also check PT/INR to objectively evaluate current status of her liver synthetic function. Avoid Tylenol due to potential worsening hepatotoxicity and give low-dose ibuprofen as needed for 1-10 out of 10 pain or fever. 4. Hyperglycemia of 315 mg/dL present on admission consistent with diabetes me llitus type 2 uncontrolled with hyperglycemia compounding #1 - #3 is there is no mention of this diagnosis and her previous problem lists - Patient has now apparently developed diabetes mellitus type 2. Check hemoglobin A1c to confirm suspicion. This may at least partially explain her recent sharp clinical decline. 5. Essential hypertension - Continue home medications as previous. Give hydral azine IV as needed for systolic blood pressure greater than 160 mmHg. 6. Morbid obesity; with BMI of 47.3 this admission - Weight loss will be recommended when patient's mental status clears. Check TSH. 7. Bipolar disorder - Resume home medications as previous. 8. Iron deficiency anemia - Continue iron supplementation. 9. Restless leg syndrome - Stable. Patient to be continued on her previous medications. 10. History of methamphetamine abuse - Noted. Check urine drug screen this adm ission. 11. DVT prophylaxis - SCD's only with thrombocytopenia of 72 present on admission. Total time: Approximately 70 minutes. Charges/Coding Visit Charges OBSV E&M: 34660 Observ/hosp same date L2
[2023-09-13 20:50] VITALS: BMI 45.3
[2023-09-13 21:05] VITALS: BP 133/75; PULSE 50; RESP 16; TEMP 36.9; O2SAT 97
[2023-09-13] MEDS: 0.9% Normal Saline (1000mL) 1,000 ML 30 ML IV (21:08)
[2023-09-13 21:33] LABS: Hemoglobin A1c 6.5 % (3.8-5.6)
[2023-09-13 21:58] LABS: Amphetamine Urine VISTA NEGATIVE (<1000 ng/mL); Barbiturate Urine VISTA NEGATIVE (< 200 ng/mL); Benzodiazepine Urine VISTA NEGATIVE (< 200 ng/mL); Cocaine Urine VISTA NEGATIVE (< 300 ng/mL); Ecstacy Urine VISTA NEGATIVE (< 500 ng/mL); Methadone Urine VISTA NEGATIVE (< 300 ng/mL); PCP Urine VISTA NEGATIVE (< 25 ng/mL); THC Urine VISTA NEGATIVE (< 50 ng/mL); Vista UDS pH Range 7
[2023-09-13] MEDS: Furosemide 40 MG Tablet PO (22:47)
[2023-09-13 22:48] VITALS: O2SAT 97
[2023-09-13] MEDS: QUEtiapine 100 MG Tablet PO (23:04)
[2023-09-13] MEDS: Ursodiol 250 MG Tablet 300 MG PO (23:04)
[2023-09-13] MEDS: rifAXIMin 550 MG Tablet PO (23:05)
[2023-09-13] MEDS: Propranolol 40 MG Tablet 60 MG PO (23:05)
[2023-09-14 03:15] VITALS: BP 116/62; PULSE 54; RESP 16; TEMP 35.7; O2SAT 96
[2023-09-14 05:59] VITALS: BMI 45.2
[2023-09-14 06:34] LABS: Absolute Lymphocyte Count 1.49 X10^3/uL (0.83-4.51); Absolute Neutrophil Count 2.6 X10^3/uL (2.0-7.7); Basophil# 0.05 X10^3/uL; Basophil% 0.9 % (0-1); Eosinophils% 7.6 % (0-5); Hematocrit 46.2 % (37-47); Hemoglobin 15.6 g/dL (12.0-15.0); Lymphocyte # 1.49 X10^3/ul (0.83-4.51); Lymphocyte % 28.2 % (19-41); Mean Corp Hgb Conc 33.8 g/dL (32-36); Mean Corpuscular Hgb 33.1 pg (27.0-32.0); Mean Corpuscular Volume 97.9 fL (81-99); Mean Platelet Vol. 10.9 fl (6.2-12.0); Monocyte# 0.69 X10^3/uL; Monocyte% 13.1 % (0-10); NRBC Flagged by Analyzer 0 % (0-5); Neutrophil # 2.63 X10^3/uL (2.7-7.7); Neutrophil % 49.8 % (47-70); POSITIVE COUNT YES; Platelet Count 75 K/mm3 (150-450); RBC Distribution Width SD 46.6 fl (35.1-43.9); Red Blood Count 4.72 M/mm3 (4.2-5.4); White Blood Count 5.3 K/mm3 (4.4-11.0)
[2023-09-14] MEDS: Lactulose 20 GM/30 ML UDC PO ×4 (06:34→21:47)
[2023-09-14 06:47] LABS: International Normalized Ratio 1.2; Prothrombin Time (Protime)PT. 15.6 SECONDS (11.7-14.9)
[2023-09-14 07:16] LABS: ALB/GLOB Ratio 0.9 RATIO (0.9-2.4); AST(SGOT) 27 U/L (15-37); Alanine Aminotransfer ALT/SGPT 26 U/L (13-56); Alkaline Phosphatase 145 U/L (45-117); Anion Gap 3 (5-15); BUN 10 mg/dL (7-18); BUN/Creat Ratio 13.9 RATIO (10-20); Chloride 110 mmol/L (98-107); Creatinine, Serum 0.72 mg/dL (0.55-1.02); EST Glomerular Filtration Rate 90 mL/min (>60); Est Glom Filt Rate - Afr Amer 108 mL/min (>60); Estimated Creatinine Clearance 86.86 ml/min; Globulin 3.2 g/dL (2.2-4.2); Glucose 103 mg/dL (74-106); Phosphorus 2.8 mg/dL (2.5-4.9); Potassium 3.7 mmol/L (3.5-5.1); Protein, Total 6.2 g/dL (6.4-8.2); Sodium Level 140 mmol/L (136-145); Thyroid Stim Hormone (TSH) 2.52 uIU/mL (0.358-3.74)
[2023-09-14 07:20] VITALS: O2SAT 93
[2023-09-14 08:36] LABS: Magnesium 2.3 mg/dL (1.6-2.6); Phosphorus 2.9 mg/dL (2.5-4.9)
[2023-09-14 08:58] LABS: Hepatitis B Surface Antibody Reactive; Hepatitis B Surface Antigen Non-Reactive (Nonreactive)
[2023-09-14 09:54] VITALS: BP 124/59; PULSE 60; RESP 15; TEMP 36.6; O2SAT 95
[2023-09-14] MEDS: Propranolol 40 MG Tablet 60 MG PO ×2 (09:59→21:44)
[2023-09-14] MEDS: Ferrous Sulfate 325 MG Tablet PO (09:59)
[2023-09-14] MEDS: Citalopram 40 MG TABLET PO (09:59)
[2023-09-14] MEDS: buPROPion (XL) 300 MG TABLET.XL PO (09:59)
[2023-09-14] MEDS: Furosemide 40 MG Tablet PO ×2 (09:59→17:16)
[2023-09-14] MEDS: Ursodiol 250 MG Tablet 300 MG PO ×2 (10:00→21:46)
[2023-09-14] MEDS: Loratadine 10 MG Tablet PO (10:01)
[2023-09-14] MEDS: Spironolactone 50 MG Tablet PO (10:01)
[2023-09-14] MEDS: rifAXIMin 550 MG Tablet PO ×2 (10:02→21:46)
--- NOTE | 2023-09-14 11:35 | PCM.PN.HOSP ---
Reason for Visit Reason for Visit: Diagnoses Type 2 diabetes mellitus with hyperglycemia (09/13/23) Alcoholic cirrhosis of liver without ascites (09/13/23) Hepatic encephalopathy (09/13/23) Patient's noncompliance with other medical treatment and regimen due to unspecified reason (09/13/23) Objective Data Objective Data Vital Signs: Vital Signs Temp Pulse Resp BP Pulse Ox O2 Del Method 98 F 60 15 124/59 H 95 Room Air 09/14/23 09:54 09/14/23 09:54 09/14/23 09:54 09/14/23 09:54 09/14/23 09:54 09/14/23 09:54 Oxygen Delivery Method Room Air Weight: 288 lb 12.889 oz Body Mass Index (BMI) 45.2 Intake & Output: Intake and Output for Last 24 Hours 09/12/23 09/13/23 09/14/23 23:59 23:59 23:59 Intake Total 320 / 320 220 / 220 Output Total 600 / 600 150 / 150 Balance -280 / -280 70 / 70 Lab / Micro Data 09/14/23 06:10 09/14/23 06:10 Labs: Laboratory Results - last 24 hr 09/13/23 18:34: WBC 5.2, RBC 4.62, Hgb 15.6 H, Hct 46.1, MCV 99.8 H, MCH 33.8 H, MCHC 33.8, RDW Std Deviation 47.8 H, RDW Coeff of Stephon 13.1, Plt Count 72 L, MPV 11.3, Immature Gran % (Auto) 0.400, Neut % (Auto) 54.7, Lymph % (Auto) 25.1, Caroline % (Auto) 12.1 H, Eos % (Auto) 6.9 H, Baso % (Auto) 0.8, Absolute Neuts (auto) 2.9, Absolute Lymphs (auto) 1.31, Nucleated RBC % 0, PT 15.5 H, INR 1.2, Sodium 138, Potassium 4.6, Chloride 107, Carbon Dioxide 29.0, Anion Gap 2 L, BUN 12, Creatinine 0.96, Estim Creat Clear Calc 65.15, Est GFR (MDRD) Af Amer 78, Est GFR (MDRD) Non-Af 64, BUN/Creatinine Ratio 12.5, Glucose 315 H, Hemoglobin A1c 6.5 H, Calcium 9.0, Total Bilirubin 1.20 H, Direct Bilirubin 0.43 H, AST 24, ALT 26, Alkaline Phosphatase 204 H, Total Protein 6.7, Albumin 3.0 L, Globulin 3.7, Amylase 77, Lipase 77 H 09/13/23 18:39: Ammonia 165.0 H 09/13/23 18:59: Urine Color Yellow, Urine Clarity Clear, Urine pH 7.0, Ur Specific [place] 1.010, Urine Protein Negative, Urine Glucose (UA) 1000 H, Urine Ketones Negative, Urine Occult Blood 10 H, Urine Nitrite Negative, Urine Bilirubin Negative, Urine Urobilinogen 1 H, Ur Leukocyte Esterase Negative, Urine RBC 0-5 SEEN, Urine WBC 0 SEEN, Ur Squamous Epith Cells 0-5 SEEN, Urine Bacteria 0 SEEN, Urine Mucus 0 SEEN, Urine Opiates Screen NEGATIVE, Urine Methadone Screen NEGATIVE, Ur Barbiturates Screen NEGATIVE, Ur Phencyclidine Scrn NEGATIVE, Ur Amphetamines Screen NEGATIVE, MDMA (Ecstasy) Screen NEGATIVE, U Benzodiazepines Scrn NEGATIVE, Urine Cocaine Screen NEGATIVE, U Cannabinoids Screen NEGATIVE, Ur Drug Screen Comment 09/14/23 06:10: WBC 5.3, RBC 4.72, Hgb 15.6 H, Hct 46.2, MCV 97.9, MCH 33.1 H, MCHC 33.8, RDW Std Deviation 46.6 H, RDW Coeff of Stephon 13.0, Plt Count 75 L, MPV 10.9, Immature Gran % (Auto) 0.400, Neut % (Auto) 49.8, Lymph % (Auto) 28.2, Caroline % (Auto) 13.1 H, Eos % (Auto) 7.6 H, Baso % (Auto) 0.9, Absolute Neuts (auto) 2.6, Absolute Lymphs (auto) 1.49, Nucleated RBC % 0, PT 15.6 H, INR 1.2, Sodium 140, Potassium 3.7, Chloride 110 H, Carbon Dioxide 27.0, Anion Gap 3 L, BUN 10, Creatinine 0.72, Estim Creat Clear Calc 86.86, Est GFR (MDRD) Af Amer 108, Est GFR (MDRD) Non-Af 90, BUN/Creatinine Ratio 13.9, Glucose 103, Calcium 9.0, Phosphorus 2.8 09/14/23 06:10: Phosphorus 2.9, Magnesium 2.3, Total Bilirubin 1.60 H, AST 27, ALT 26, Alkaline Phosphatase 145 H, Ammonia 101.0 H, Total Protein 6.2 L, Albumin 3.0 L, Globulin 3.2, Albumin/Globulin Ratio 0.9, TSH 2.52, Hep Bs Antigen Non-Reactive, Hep Bs Antibody Reactive Physical Exam Narrative Seen and examined. Detailed history taken from the patient and then the brother on the phone. Physical exam General: Awake, Oriented x3, Cooperative, sometimes does not remember/forgetfulness, confused. HEENT: Atraumatic, PERRLA, EOMI, Normocephalic Oral: Oral mucosa dry. No Gingival or Mucosal Lesions/ Ulcerations Neck: Supple, No JVD, Negative Carotid Bruits Lungs: Air entry diminished in bilateral lung bases. No crepitation/rhonchi Cardiovascular: Regular rate, Regular Rhythm, Normal S1, Normal S2, No murmurs Abdomen: Bowel Sounds Present, Soft, Non Tender, Non-Distended : No renal angle tenderness. No suprapubic tenderness. Extremities: No edema, Capillary Refill Less than 3 Seconds Skin: No rashes, No breakdown Musculoskeletal: No Tenderness to Palpation of Joints or Extremities Neurological: Cranial nerves II-XII grossly intact, DTR 2+/4. No acute focal neurological deficit. Psych/Mental Status: Flat affect. Assessment & Plan Assessment/Plan (1) Acute hepatic encephalopathy: (2) Cirrhosis: QUALIFIERS: Hepatic cirrhosis type: alcoholic cirrhosis Ascites presence: without ascites Qualified Code(s): K70.30 - Alcoholic cirrhosis of liver without ascites (3) Medical non-compliance: (4) Diabetes mellitus, type 2: QUALIFIERS: Diabetes mellitus mcfp insulin use: without terminal operations supervisor use Diabetes mellitus complication status: with hyperglycemia Qualified Code(s): E11.65 - Type 2 diabetes mellitus with hyperglycemia PLAN: Plan This 48-year-old female being admitted for confusion and altered mental status and was just discharged from [facility] for hepatic encephalopathy but she still confused and therefore got admitted in [facility]. 1. Acute on recurrent hepatic encephalopathy from decompensated cirrhosis: Patient admitted in PCU. On lactulose and Xifaxan. I talked to the patient and tried to explain the disease process and then I called her brother who is fixated on serum ammonia level. He was told by other care provider that her ammonia should be below 50-60 and if it high, to take her to ED. Tried to explain him that pneumonia helps in making diagnosis but hepatic encephalopathy with the clinical diagnosis. During last clinic visit she was taking lactulose 60 mL 3 times daily and having 5-6 loose bowel movements. I advised her 30 to 45 mL every 4 hourly as she was having symptoms of burping, nausea, gas dyspeptic symptoms. It seems patient is not taking lactulose as prescribed in last 2 days and her brother who is main caregiver and lives with him also has to work they are hoping for home health aide. 2. Decompensated alcoholic cirrhosis with portal hypertension, gastroesophageal varices, splenomegaly, thrombocytopenia with possibility of PBC: Lab work reviewed. She had elevated AMA. She further states he had hepatitis B infection in the past as told by But not vaccinated. After lab review, her hepatitis B surface antigen, core IgM and hepatitis B antibody are negative. Her MELD score is 10 with child score 7 class B. Referred to the [facility] for transplant evaluation was made during last clinic visit on 08/30/2023. [facility] history is that there processing the referral but have not scheduled any visit yet but might call next week. Repeat hepatitis profile shows surface antigen nonreactive, surface antibody reactive but core antibody pending. 3. Diabetes mellitus type 2 with uncontrolled hyperglycemia: Hyperglycemia of 315 mg/dL present on admission: A1c 6.5. Repeat glucose 103. Last A1c was 5.5 in November 2022. A1c 6.5 is clinical criteria for diabetes mellitus type 2. 4. Essential hypertension - Continue home medications as previous. Give hydralazine IV as needed for systolic blood pressure greater than 160 mmHg. 5. Morbid obesity; with BMI of 47.3 this admission - Weight loss. Check TSH. 6.. Bipolar disorder - Resume home medications as previous. 7.. Iron deficiency anemia - Continue iron supplementation. 8. Essential tremor: She has uncontrolled tremors during last clinical visit therefore propanolol dose increased to 60 mg twice daily with instructions to hold for heart less than 50 or systolic blood pressure less than 100 mmHg. 9. Restless leg syndrome - Patient to be continued on her previous medications. 10. History of methamphetamine abuse - 11. DVT prophylaxis - SCD. Charges/Coding Addendum Addendum: Total time of the visit including total time spent in counseling or coordination of care, (more than 50% of the total time, spent in obtaining medical information from nurses and other ancillary care providers,explaining to the patient about labs, imaging, diagnosis and management of active complex medical conditions), complex history from patient and clinical update from the caregiver her brother, review of labs and imaging is 45 minutes. Visit Charges Inpatient E&M: 74278 Subs Hosp L3
[2023-09-14 15:15] VITALS: BP 124/53; PULSE 56; RESP 16; TEMP 36.7; O2SAT 96
[2023-09-14] MEDS: Ibuprofen 400 MG Tablet PO ×2 (15:44→22:05)
[2023-09-14] MEDS: Ondansetron ODT 4 MG Tablet PO (15:45)
--- NOTE | 2023-09-14 16:37 | CASEMGMT ---
RN CM NOTE: RN CM to room. Introduced self and role. Pt declines needing SN or therapy in the home, stating, I just need someone like an aide to check on me every day and to make sure I'm taking my medications and do some menial tasks in the home. A referral to [facility] was placed during a prior admission and RN ARACELY inquired about this. Pt states she decided to go against that d/t how much they stated they would take from her checks, stating, I've worked too hard all my life to just get a little bit back. Pt provided w/list of mental health aides teacher agency's and pt states, I can't afford that. Pt states she does have a SW, Jessa, from [facility] who has been assisting her w/trying to find subsidized housing and states she just applied @ [facility] in [place] but they are needing some further information. SW, Darlin, made aware. Message sent to Feliciano santa/YUNIER to notify her pt was admitted to [facility]. Sean DUKES RN CM
[2023-09-14 21:39] VITALS: BP 142/66; PULSE 56; RESP 18; TEMP 36.9; O2SAT 96
[2023-09-14] MEDS: QUEtiapine 100 MG Tablet PO (21:43)
[2023-09-14] MEDS: Doxazosin 1 MG Tablet 2.5 MG PO (21:45)
[2023-09-15 05:17] VITALS: BMI 45.3
[2023-09-15] MEDS: Lactulose 20 GM/30 ML UDC PO ×3 (05:49→13:45)
[2023-09-15 05:51] VITALS: BP 99/47; PULSE 56; RESP 16; TEMP 36.6; O2SAT 97
[2023-09-15 06:08] LABS: Hepatitis B Core AB IgM Negative (Negative); Hepatitis B Core Ab Total Positive (Negative)
[2023-09-15 06:44] LABS: Absolute Lymphocyte Count 1.46 X10^3/uL (0.83-4.51); Absolute Neutrophil Count 2.2 X10^3/uL (2.0-7.7); Basophil# 0.04 X10^3/uL; Basophil% 0.8 % (0-1); Eosinophil# 0.36 X10^3/uL; Eosinophils% 7.4 % (0-5); Hemoglobin 14.6 g/dL (12.0-15.0); Lymphocyte # 1.46 X10^3/ul (0.83-4.51); Lymphocyte % 30.2 % (19-41); Mean Corp Hgb Conc 33.2 g/dL (32-36); Mean Corpuscular Volume 99.3 fL (81-99); Mean Platelet Vol. 11.1 fl (6.2-12.0); Monocyte# 0.72 X10^3/uL; Monocyte% 14.9 % (0-10); NRBC Flagged by Analyzer 0.4 % (0-5); Neutrophil # 2.24 X10^3/uL (2.7-7.7); Neutrophil % 46.3 % (47-70); POSITIVE COUNT YES; Platelet Count 65 K/mm3 (150-450); RBC Distribution Width SD 47.6 fl (35.1-43.9); Red Blood Count 4.43 M/mm3 (4.2-5.4); White Blood Count 4.8 K/mm3 (4.4-11.0)
[2023-09-15 07:15] LABS: ALB/GLOB Ratio 0.8 RATIO (0.9-2.4); AST(SGOT) 23 U/L (15-37); Alanine Aminotransfer ALT/SGPT 24 U/L (13-56); Albumin, Serum 2.6 g/dL (3.2-5.0); Alkaline Phosphatase 191 U/L (45-117); Anion Gap 2 (5-15); BUN 15 mg/dL (7-18); BUN/Creat Ratio 18.2 RATIO (10-20); Calcium,Total 8.8 mg/dL (8.5-10.1); Chloride 109 mmol/L (98-107); Creatinine, Serum 0.82 mg/dL (0.55-1.02); EST Glomerular Filtration Rate 76 mL/min (>60); Est Glom Filt Rate - Afr Amer 93 mL/min (>60); Estimated Creatinine Clearance 76.27 ml/min; GGTP 62 U/L (5-55); Globulin 3.3 g/dL (2.2-4.2); Glucose 168 mg/dL (74-106); Potassium 4.4 mmol/L (3.5-5.1); Protein, Total 5.9 g/dL (6.4-8.2); Sodium Level 138 mmol/L (136-145)
[2023-09-15 07:38] VITALS: O2SAT 94
[2023-09-15 08:41] LABS: Vitamin D,25 Hydroxy 26.1 ng/mL
[2023-09-15 09:26] VITALS: BP 122/71; PULSE 55; RESP 14; TEMP 36.6; O2SAT 97
[2023-09-15] MEDS: Spironolactone 50 MG Tablet PO (09:32)
[2023-09-15] MEDS: Ursodiol 250 MG Tablet 300 MG PO (09:32)
[2023-09-15] MEDS: buPROPion (XL) 300 MG TABLET.XL PO (09:33)
[2023-09-15] MEDS: rifAXIMin 550 MG Tablet PO (09:33)
[2023-09-15] MEDS: Furosemide 40 MG Tablet PO (09:33)
[2023-09-15] MEDS: Loratadine 10 MG Tablet PO (09:34)
[2023-09-15] MEDS: Citalopram 40 MG TABLET PO (09:34)
[2023-09-15] MEDS: Propranolol 40 MG Tablet 60 MG PO (09:34)
--- NOTE | 2023-09-15 10:28 | PCM.DC ---
Discharge Instructions Diet Discharge Diet: Low fat / Low cholesterol (High protein diet) and 2000 mg Sodium Diet Activity Discharge Activity: May Not Drive Weight Bearing Status: Weight bearing as tolerated Dressing / Incision Call your doctor if you observe: Fever of 101 or Higher, Coldness, Increased Pain, Numbness or Tingling, Change in Color, Inability to urinate, Inability to have a bowel movement, Shortness of breath, Dizziness, Fainting spells, Swelling in the ankles, Chest pain, Prolonged hiccupping, Increased palpitations (irregular heartbeat) and Calf discomfort Follow Up Care When: IN 2 WEEKS Test Results: Test results from this visit will be discussed in further detail at your follow-up appointment, if applicable. Discharge Plan Admission Admit Date/Time: 09/14/23 16:53 Primary Reason for Your Visit: Chronic decompensated alcoholic cirrhosis Attending Provider: Placido Aponte Primary Care Provider: Luz Dhaliwal NP Consulting Providers: Ervin Zelaya Instructions Additional Instructions / Restrictions: Follow-up in [facility] transplant clinic as per the appointment. Antidepressant and antipsychotic medications dose is decreased at the chances of going into withdrawal on sudden cessation or withdrawal of medications. Discharge Orders/Prescriptions Prescriptions: Continued Xifaxan 550 mg tablet 550 mg PO BID Patient Comments: TAKE 1 TABLET BY MOUTH TWICE DAILY loratadine [Claritin] 10 mg tablet 10 mg PO DAILY propranolol 40 mg tablet 60 mg PO BID 30 Days Qty: 90 2RF furosemide 40 mg tablet 40 mg PO BID 30 Days Qty: 60 2RF Rx Instructions: Hold for SBP less than 100 mmHg ferrous sulfate [FeroSul] 325 mg (65 mg iron) tablet 325 mg PO Q OTHER DAY Patient Comments: take 1 tablet by mouth every other day bupropion HCl 300 mg tablet extended release 24 hr 300 mg PO DAILY Patient Comments: take 1 tablet by mouth once daily spironolactone 25 mg Tablet 50 mg PO DAILY 30 Days Qty: 60 2RF Rx Instructions: Hold if serum potassium more than 5.0. prazosin 1 mg capsule 3 mg PO QHS ondansetron 4 mg tablet,disintegrating 4 mg PO Q8H PRN (Reason: nausea and vomiting) Patient Comments: DISSOLVE 1 TABLET IN MOUTH TWICE DAILY NEEDED FOR NAUSEA ursodiol 300 mg capsule 300 mg PO BID Qty: 180 3RF Changed citalopram 40 mg tablet 20 mg PO DAILY Qty: 30 0RF lactulose 10 gram/15 mL solution 30 ml PO Q4H Qty: 946 0RF quetiapine [Seroquel] 50 mg tablet 50 mg PO QHS Qty: 30 0RF Discontinued buspirone 10 mg tablet 10 - 20 mg PO TID PRN PRN (Reason: Anxiety) Patient Comments: take 2 tablets by mouth three times a day if needed Referrals / Follow Up: Luz Dhaliwal [employer] ADMINISTRATOR, [facility] ADMINISTRATOR-[facility] [Primary Care Provider] - Within 2 Weeks (Please call the office to schedule a follow-up appt within the next 10-14 days. ) Placido Aponte MD [Med Staff - Active Staff] - Within 1 Month (Follow-up in GI/hepatology clinic.) Disposition Disposition (needs filled in before D/C Order can be placed): Home Health Service
--- NOTE | 2023-09-15 10:45 | CASEMGMT ---
RN ARACELY Assessment: RN?CM?to room to meet with patient for initial transition planning/care coordination?assessment.?RN?CM?introduced self and role at [facility].? Pt voices understanding and consents to?assessment?at this time.? Pt sitting up in chair in room in no distress at this time.? Pt is A/O at this time and answers all questions appropriately.?? Care providers, pharmacy, and demographics verified/updated at this time. PCP: Luz Nieto, [facility]OR Specialists: Dr Aopnte-hepatology. Pt also sees a psychiatrist and counselor Pharmacy: [facility] Retail Living arrangements: SW lives with brother in a mobile home with 3 steps to enter. Transportation: Pt does not drive, brother drives or she uses [id number]. She states her brother does not get off of work until 7 PM today and she does not know if he can come pick her up to take her home. She would like to use [facility] Van transportation @ ne. Call to Tanya who states they do not have any openings to take her home this afternoon. Pt made aware. She states she will call [employer] to try and schedule a ride to go home later today. SAMPLE SEWER ARACELY, Zainab, made aware and RNJulieta, made aware. DME: Pt has a walker and shower chair. She states she could use a RTS and incontinence supplies. BECKA JESSICA advised her to talk w/her CM, Natalie, through [facility] re: these items. LNOK: 2 brothers, 2 sons. Sons Leo and Soto live together in [place]. HHC/SNF: Pt has had [facility] in the past, has not been to SNF. [facility]: Pt is active w/[facility]. Per Feliciano @ [facility], they have an alarm set to go off 4 x'/day to remind her to take her medications, but pt turns it off at times. Pt informed this BECKA JESSICA that she does not intentionally turn it off, rather, she forgets to charge it. Pt states Jessa w/[facility] is currently working on getting MOW for her and she declines wanting any resources by today for this. Plan: Home w/continuation of [facility] and family support. Sean DUKES RN, CM
--- NOTE | 2023-09-15 13:54 | PCM.DC.SUM ---
Providers Date of Admission: 09/14/23 Date of Discharge: 09/15/23 Primary Care Physician: Luz Dhaliwal, ALFRED Reason For Visit: hepatic encephalopathy Diagnosis Discharge Diagnosis (1) Acute hepatic encephalopathy: Status: Acute Code(s): K76.82 - Hepatic encephalopathy (2) Cirrhosis: Status: Chronic Code(s): K74.60 - Unspecified cirrhosis of liver Qualifiers: Ascites presence: without ascites Hepatic cirrhosis type: alcoholic cirrhosis Qualified Code(s): K70.30 - Alcoholic cirrhosis of liver without ascites (3) Medical non-compliance: Status: Acute Code(s): Z91.199 - Patient's noncompliance with other medical treatment and regimen due to unspecified reason (4) Diabetes mellitus, type 2: Status: Acute Code(s): E11.9 - Type 2 diabetes mellitus without complications Qualifiers: Diabetes mellitus complication status: with hyperglycemia Diabetes mellitus halfway insulin use: without termite treater use Qualified Code(s): E11.65 - Type 2 diabetes mellitus with hyperglycemia Plan This 48-year-old female being admitted for confusion and altered mental status and was just discharged from [facility] for hepatic encephalopathy but she still confused and therefore got admitted in [facility]. 1. Acute on recurrent hepatic encephalopathy from decompensated cirrhosis: Patient admitted in PCU. On lactulose and Xifaxan. I talked to the patient and tried to explain the disease process and then I called her brother who is fixated on serum ammonia level. He was told by other care provider that her ammonia should be below 50-60 and if it high, to take her to ED. Tried to explain him that pneumonia helps in making diagnosis but hepatic encephalopathy with the clinical diagnosis. During last clinic visit she was taking lactulose 60 mL 3 times daily and having 5-6 loose bowel movements. I advised her 30 to 45 mL every 4 hourly as she was having symptoms of burping, nausea, gas dyspeptic symptoms. It seems patient is not taking lactulose as prescribed in last 2 days and her brother who is main caregiver and lives with him also has to work they are hoping for home health aide. 09/15: Patient encephalopathic symptoms have resolved. I advised to take lactulose 30 mL every 4 hours to have a soft to liquid 3 bowel movements per day. Patient is also on multiple enticed depression/antipsychotic medications including citalopram, Seroquel and Wellbutrin. She is not taking BuSpar. Wellbutrin continued. Citalopram and Seroquel which is mainly hepatically metabolized dosages decreased to avoid withdrawal symptoms on abrupt discontinuation. We might try to discontinue later on. Follow with PCP. Patient was educated on ammonia level. If still elevated but better than morning but patient has improved clinically. 2. Decompensated alcoholic cirrhosis with portal hypertension, gastroesophageal varices, splenomegaly, thrombocytopenia with possibility of PBC: Lab work reviewed. She had elevated AMA. She further states he had hepatitis B infection in the past as told by But not vaccinated. After lab review, her hepatitis B surface antigen, core IgM and hepatitis B antibody are negative. Her MELD score is 10 with child score 7 class B. Referred to the [facility] for transplant evaluation was made during last clinic visit on 08/30/2023. [facility] history is that there processing the referral but have not scheduled any visit yet but might call next week. Repeat hepatitis profile shows surface antigen nonreactive, surface antibody reactive but core antibody positive.. 3. Diabetes mellitus type 2 with uncontrolled hyperglycemia: Hyperglycemia of 315 mg/dL present on admission: A1c 6.5. Repeat glucose 103. Last A1c was 5.5 in November 2022. A1c 6.5 is clinical criteria for diabetes mellitus type 2. 4. Essential hypertension - Continue home medications as previous. Give hydralazine IV as needed for systolic blood pressure greater than 160 mmHg. 5. Morbid obesity; with BMI of 47.3 this admission - Weight loss. Check TSH. 6.. Bipolar disorder - Resume home medications as previous. 7.. Iron deficiency anemia - Continue iron supplementation. 8. Essential tremor: She has uncontrolled tremors during last clinical visit therefore propanolol dose increased to 60 mg twice daily with instructions to hold for heart less than 50 or systolic blood pressure less than 100 mmHg. 9. Restless leg syndrome - Patient to be continued on her previous medications. 10. History of methamphetamine abuse - 11. DVT prophylaxis - SCD. Medications at Discharge Home Medications rifaximin 550 mg tablet (Xifaxan) 550 mg PO BID cirrhosis 10/28/22 bupropion HCl 300 mg 24 hr tablet, extended release 300 mg PO DAILY depression 11/18/22 spironolactone 25 mg tablet 50 mg (2 x 25 mg) PO DAILY diuretic 30 days #60 tabs 11/20/22 ursodiol 300 mg capsule 300 mg PO BID cholesterol #180 caps 12/15/22 loratadine 10 mg tablet (Claritin) 10 mg PO DAILY allergies 04/19/23 ondansetron 4 mg disintegrating tablet 4 mg PO Q8H PRN nausea and vomiting 06/09/23 prazosin 1 mg capsule 3 mg PO QHS 06/09/23 ferrous sulfate 325 mg (65 mg iron) tablet (FeroSul) 325 mg PO Q OTHER DAY anemia 08/30/23 furosemide 40 mg tablet 40 mg PO BID diuretic 1 month #60 tabs 08/30/23 propranolol 40 mg tablet 60 mg (1.5 x 40 mg) PO BID 30 days #90 tabs 08/30/23 citalopram 40 mg tablet 20 mg (1/2 x 40 mg) PO DAILY depression #30 tabs 09/15/23 lactulose 10 gram/15 mL oral solution 30 ml PO Q4H liver #946 mL 09/15/23 quetiapine 50 mg tablet (Seroquel) 50 mg PO QHS sleep #30 tabs 09/15/23 Physical Exam Narrative Seen and examined. Detailed history taken from the patient. Patient is talking [place]. She wants to go home. She has been having soft to liquid bowel movement Physical exam General: Awake, Oriented x3, Cooperative, HEENT: Atraumatic, PERRLA, EOMI, Normocephalic Oral: Oral mucosa moist. No Gingival or Mucosal Lesions/ Ulcerations Neck: Supple, No JVD, Negative Carotid Bruits Lungs: Air entry diminished in bilateral lung bases. No crepitation/rhonchi Cardiovascular: Regular rate, Regular Rhythm, Normal S1, Normal S2, No murmurs Abdomen: Bowel Sounds Present, Soft, Non Tender, Non-Distended : No renal angle tenderness. No suprapubic tenderness. Extremities: No edema, Capillary Refill Less than 3 Seconds Skin: No rashes, No breakdown Musculoskeletal: No Tenderness to Palpation of Joints or Extremities Neurological: Cranial nerves II-XII grossly intact, DTR 2+/4. No acute focal neurological deficit. Currently speech. Psych/Mental Status: Flat affect. Weight / BMI Weight Weight: 289 lb 10.998 oz Body Mass Index (BMI) 45.3 ABG / Lab / Microbiology Data 09/15/23 06:30 09/15/23 06:30 Laboratory: Laboratory Results - last 24 hr 09/14/23 06:10: Hep B Core Total Ab Positive H, Hep B Core IgM Ab Negative 09/15/23 06:30: WBC 4.8, RBC 4.43, Hgb 14.6, Hct 44.0, MCV 99.3 H, MCH 33.0 H, MCHC 33.2, RDW Std Deviation 47.6 H, RDW Coeff of Stephon 13.0, Plt Count 65 L, MPV 11.1, Immature Gran % (Auto) 0.400, Neut % (Auto) 46.3 L, Lymph % (Auto) 30.2, Andrew % (Auto) 14.9 H, Eos % (Auto) 7.4 H, Baso % (Auto) 0.8, Absolute Neuts (auto) 2.2, Absolute Lymphs (auto) 1.46, Nucleated RBC % 0.4, Sodium 138, Potassium 4.4, Chloride 109 H, Carbon Dioxide 27.0, Anion Gap 2 L, BUN 15, Creatinine 0.82, Estim Creat Clear Calc 76.27, Est GFR (MDRD) Af Amer 93, Est GFR (MDRD) Non-Af 76, BUN/Creatinine Ratio 18.2, Glucose 168 H, Calcium 8.8, Total Bilirubin 1.10 H, GGT 62 H, AST 23, ALT 24, Alkaline Phosphatase 191 H, Ammonia 271.0 H, Total Protein 5.9 L, Albumin 2.6 L, Globulin 3.3, Albumin/Globulin Ratio 0.8 L, Vitamin D 25-Hydroxy 26.1 09/15/23 11:55: Ammonia 173.0 H D/C Instructions Discharge Diet: Low fat / Low cholesterol (High protein diet) and 2000 mg Sodium Diet Weight Bearing Status: Weight bearing as tolerated Call your doctor if you observe: Fever of 101 or Higher, Coldness, Increased Pain, Numbness or Tingling, Change in Color, Inability to urinate, Inability to have a bowel movement, Shortness of breath, Dizziness, Fainting spells, Swelling in the ankles, Chest pain, Prolonged hiccupping, Increased palpitations (irregular heartbeat) and Calf discomfort When: IN 2 WEEKS Meaningful Use Info Meaningful Use Diagnoses (Choose all that apply): None applicable Discharge Plan Admission Admit Date/Time: 09/14/23 16:53 Primary Reason for Your Visit: Chronic decompensated alcoholic cirrhosis Attending Provider: Placido Aponte Primary Care Provider: Luz Dhaliwal NP Consulting Providers: Ervin Zelaya Instructions Additional Instructions / Restrictions: Follow-up in [facility] transplant clinic as per the appointment. Antidepressant and antipsychotic medications dose is decreased at the chances of going into withdrawal on sudden cessation or withdrawal of medications. Discharge Orders/Prescriptions Prescriptions: Continued Xifaxan 550 mg tablet 550 mg PO BID Patient Comments: TAKE 1 TABLET BY MOUTH TWICE DAILY loratadine [Claritin] 10 mg tablet 10 mg PO DAILY propranolol 40 mg tablet 60 mg PO BID 30 Days Qty: 90 2RF furosemide 40 mg tablet 40 mg PO BID 30 Days Qty: 60 2RF Rx Instructions: Hold for SBP less than 100 mmHg ferrous sulfate [FeroSul] 325 mg (65 mg iron) tablet 325 mg PO Q OTHER DAY Patient Comments: take 1 tablet by mouth every other day bupropion HCl 300 mg tablet extended release 24 hr 300 mg PO DAILY Patient Comments: take 1 tablet by mouth once daily spironolactone 25 mg Tablet 50 mg PO DAILY 30 Days Qty: 60 2RF Rx Instructions: Hold if serum potassium more than 5.0. prazosin 1 mg capsule 3 mg PO QHS ondansetron 4 mg tablet,disintegrating 4 mg PO Q8H PRN (Reason: nausea and vomiting) Patient Comments: DISSOLVE 1 TABLET IN MOUTH TWICE DAILY NEEDED FOR NAUSEA ursodiol 300 mg capsule 300 mg PO BID Qty: 180 3RF Changed citalopram 40 mg tablet 20 mg PO DAILY Qty: 30 0RF lactulose 10 gram/15 mL solution 30 ml PO Q4H Qty: 946 0RF quetiapine [Seroquel] 50 mg tablet 50 mg PO QHS Qty: 30 0RF Discontinued buspirone 10 mg tablet 10 - 20 mg PO TID PRN PRN (Reason: Anxiety) Patient Comments: take 2 tablets by mouth three times a day if needed Referrals / Follow Up: Luz Dhaliwal NP, CLINICAL INFORMAT[facility] SPEC-C [Primary Care Provider] - 09/27/23 10:45 am ( ) Disposition Disposition (needs filled in before D/C Order can be placed): Home Health Service Charges/Coding Visit Charges Inpatient E&M: 42675 Disch Hosp >30min
[2023-09-15 14:54] VITALS: BP 112/42; PULSE 57; RESP 14; TEMP 36.9; O2SAT 96
[2023-09-15 17:07] LABS: ANTINUCLEAR ANTIBODIES DIRECT Positive (Negative); Anti-Centromere B Ab <0.2 AI (0.0-0.9); Anti-Chromatin 0.2 AI (0.0-0.9); Anti-Jo <0.2 AI (0.0-0.9); Anti-Mitochondrial AB 173.4 Units (0.0-20.0); Anti-Scleroderma-70 AB <0.2 AI (0.0-0.9); Anti-Smooth Muscle ABS 10 Units (0-19); Anti-dsDNA Ab 2 IU/mL (0-9); RNP Ab 1.2 AI (0.0-0.9); SJOGREN'S Anti-SS-A test < 0.2 AI (0.0-0.9); SJOGREN'S Anti-SS-B test < 0.2 AI (0.0-0.9); Smith Ab <0.2 AI (0.0-0.9)
== END 2023-09-15 14:54 | disposition home health service (06) | DRG 280 ==
LOC: ED 19:58 → PCU 20:29
PROVIDERS: Nurse Practitioner; Admitting Provider Internal Medicine; Emergency Provider Emergency Medicine; PCP Nurse Practitioner Family; Visit Provider Internal Medicine
DX: K70.31 Alcoholic cirrhosis of liver with ascites (principal); K72.10 Chronic hepatic failure without coma; K76.6 Portal hypertension; E11.65 Type 2 diabetes mellitus with hyperglycemia; E66.01 Morbid (severe) obesity due to excess calories; D50.9 Iron deficiency anemia, unspecified; F31.9 Bipolar disorder, unspecified; Z68.42 Body mass index [BMI] 45.0-49.9, adult; K76.82 Hepatic encephalopathy; G25.81 Restless legs syndrome; F15.90 Other stimulant use, unspecified, uncomplicated; G25.0 Essential tremor; Z91.199 Patient's noncompliance with other medical treatment and regimen due to unspecified reason; Z87.891 Personal history of nicotine dependence
CPT/HCPCS: 36415; 80048; 80053; 80076; 80307; 81001; 82140; 82150; 82306; 82977; 83036; 83516; 83690; 83735; 84100; 84443; 85025; 85610; 86038; 86225; 86235; 86704; 86705; 86706; 87340; 97161; 97166; 99282; J7030; A4216

== ENCOUNTER 2023-09-20 18:48 | Emergency (ER) | payer MEDICAID, SELFPAY ==
[2023-09-20 18:50] VITALS: BP 122/84; PULSE 54; RESP 18; TEMP 36.6; O2SAT 96
--- NOTE | 2023-09-20 19:23 | EKG12_ITS ---
Test Reason : DYSRHYTHMIA Blood Pressure : / mmHG Vent. Rate : 049 BPM Atrial Rate : 049 BPM P-R Int : 172 ms QRS Dur : 090 ms QT Int : 488 ms P-R-T Axes : 027 021 008 degrees QTc Int : 440 ms Sinus bradycardia Otherwise normal ECG Confirmed by EDMAR RICCI, RONAL ([id number]), visual effects editor MAGDALENE DUBON ([id number]) on 09/21/2023 7:54:04 AM Referred By: Confirmed By:RONAL HYATT MD
--- NOTE | 2023-09-20 20:15 | RAD_ITS ---
STUDY: X-RAY CHEST REASON FOR EXAM: Female, 52 years old. Stroke TECHNIQUE: AP portable COMPARISON: May 28, 2023 FINDINGS: There is less than optimal inspiratory effort.. Mild bilateral perihilar interstitial thickening and bronchovascular cuffing possibly representing mild pulmonary interstitial edema There is no demonstrated pleural abnormality. Heart is enlarged.. Normal mediastinum and marlen. Normal visualized pulmonary arteries. Mildly calcified aortic arch and descending thoracic aorta. Normal visualized thoracic spine. Normal visualized ribs, and clavicles. There are degenerative changes of the left shoulder and postsurgical changes on the right. Moderate sized hiatal hernia noted There is no demonstrated abnormality of the visualized soft tissue structures of the upper abdomen. RAD/Chest 1 View (Portable) IMPRESSION: Question mild pulmonary interstitial edema. Clinical correlation recommended. Electronically Signed: Vinicius Chavez MD at 20:32 EST ,
[2023-09-20 20:22] LABS: Absolute Lymphocyte Count 1.43 X10^3/uL (0.83-4.51); Absolute Neutrophil Count 3.3 X10^3/uL (2.0-7.7); Basophil# 0.07 X10^3/uL; Basophil% 1.2 % (0-1); Eosinophil# 0.33 X10^3/uL; Eosinophils% 5.7 % (0-5); Hemoglobin 16.1 g/dL (12.0-15.0); Lymphocyte # 1.43 X10^3/ul (0.83-4.51); Lymphocyte % 24.9 % (19-41); Mean Corp Hgb Conc 33.5 g/dL (32-36); Mean Corpuscular Hgb 32.9 pg (27.0-32.0); Mean Platelet Vol. 11.2 fl (6.2-12.0); Monocyte# 0.58 X10^3/uL; Monocyte% 10.1 % (0-10); NRBC Flagged by Analyzer 0 % (0-5); Neutrophil # 3.33 X10^3/uL (2.7-7.7); Neutrophil % 57.9 % (47-70); POSITIVE COUNT YES; Platelet Count 88 K/mm3 (150-450); RBC Distribution Width CV 13.1 % (11.6-14.6); RBC Distribution Width SD 47.2 fl (35.1-43.9); White Blood Count 5.8 K/mm3 (4.4-11.0)
[2023-09-20 20:33] LABS: AST(SGOT) 26 U/L (15-37); Alanine Aminotransfer ALT/SGPT 27 U/L (13-56); Albumin, Serum 3.1 g/dL (3.2-5.0); Alcohol, Blood (Medical)-Serum < 3.0 mg/dL; Alkaline Phosphatase 168 U/L (45-117); Anion Gap 2 (5-15); BUN 10 mg/dL (7-18); Bilirubin, Direct 0.51 mg/dL (0.00-0.30); Calcium,Total 9.5 mg/dL (8.5-10.1); Chloride 112 mmol/L (98-107); Creatinine, Serum 0.84 mg/dL (0.55-1.02); EST Glomerular Filtration Rate 75 mL/min (>60); Est Glom Filt Rate - Afr Amer 91 mL/min (>60); Globulin 3.8 g/dL (2.2-4.2); Glucose 125 mg/dL (74-106); Potassium 4.5 mmol/L (3.5-5.1); Protein, Total 6.9 g/dL (6.4-8.2); Sodium Level 142 mmol/L (136-145)
[2023-09-20] MEDS: Lactulose 20 GM/30 ML UDC PO (21:04)
[2023-09-20] MEDS: rifAXIMin 550 MG Tablet PO (21:04)
--- NOTE | 2023-09-20 21:29 | EX.ED.DYSGE1 ---
HPI History of Present Illness Chief Complaint: Confusion Informant: patient and family Narrative Narrative: Here with brother for worsening confusion since yesterday. History of alcoholic cirrhosis last drink 2 years ago. She is on lactulose and rifaximin. Reports time she does not take her medications, her last dosing was yesterday morning. She did not take it yesterday evening or any throughout the day. He works throughout the day and unable to make sure she takes her medications. She was just discharged 5 days ago for similar and worsening symptoms then. Denies cough or any urinary symptoms. Denies any vomiting. States she is unstable walking into the emergency department. Prior similar symptoms: Yes PFSH [facility] Medical History Acidosis Alcohol abuse Alcohol use Alcoholic cirrhosis of liver without ascites Anxiety and depression Bipolar disorder Cirrhosis Depression Easy bruising Edema Eosinophilia, unspecified Essential (primary) hypertension Former smoker Gastric reflux Hepatic encephalopathy Hepatitis History of edema History of IBS History of pain when walking Hx of scarlet fever Immunity status testing Iron deficiency anemia Lactic acidosis Low urine output Neutropenia Pancytopenia Portal hypertension Post-menopausal Restless legs Shortness of breath on exertion Splenomegaly Thrombocytopenia Urea cycle metabolism disorder UTI (urinary tract infection) Wears dentures Wears glasses Home Medications rifaximin 550 mg tablet (Xifaxan) 550 mg PO BID cirrhosis 10/28/22 [History Last Taken Unknown] bupropion HCl 300 mg 24 hr tablet, extended release 300 mg PO DAILY depression 11/18/22 [History Last Taken Unknown] spironolactone 25 mg tablet 50 mg (2 x 25 mg) PO DAILY diuretic 30 days #60 tabs 11/20/22 [Rx Last Taken Unknown] ursodiol 300 mg capsule 300 mg PO BID cholesterol #180 caps 12/15/22 [Rx Last Taken Unknown] loratadine 10 mg tablet (Claritin) 10 mg PO DAILY allergies 04/19/23 [History Last Taken Unknown] ondansetron 4 mg disintegrating tablet 4 mg PO Q8H PRN nausea and vomiting 06/09/23 [History Last Taken Unknown] prazosin 1 mg capsule 3 mg PO QHS 06/09/23 [History Last Taken Unknown] ferrous sulfate 325 mg (65 mg iron) tablet (FeroSul) 325 mg PO Q OTHER DAY anemia 08/30/23 [History Last Taken Unknown] furosemide 40 mg tablet 40 mg PO BID diuretic 1 month #60 tabs 08/30/23 [Rx Last Taken Unknown] propranolol 40 mg tablet 60 mg (1.5 x 40 mg) PO BID 30 days #90 tabs 08/30/23 [Rx Last Taken Unknown] citalopram 40 mg tablet 20 mg (1/2 x 40 mg) PO DAILY depression #30 tabs 09/15/23 [Rx Last Taken Unknown] lactulose 10 gram/15 mL oral solution 30 ml PO Q4H liver #946 mL 09/15/23 [Rx Last Taken Unknown] quetiapine 50 mg tablet (Seroquel) 50 mg PO QHS sleep #30 tabs 09/15/23 [Rx Last Taken Unknown] Allergy/AdvReac Type Severity Reaction Status Date / Time No Known Allergies Allergy Verified 09/20/23 18:50 Family History Grandmother Breast cancer Surgical History History of ankle surgery Hx of section Hx of cholecystectomy Hx of hand surgery Hx of shoulder surgery Hx of total knee replacement Social History household members: family Smoking Status: Never smoker Electronic Cigarette Use: with nicotine how long ago did patient quit smoking: Transitioned from cig tob to vaping, heavy currently. alcohol intake: former year quit: 2021 details: 11/26/21 substance use type: other details: Former amphetamine/meth use, clean since 11/26/21. ROS ROS ED Constitutional Constitutional ED: Denies chills, fever(s) or sweats Eyes Eyes: Denies change in vision ENT ENT ED: Denies dysphagia or sore throat Cardiovascular Cardiovascular: Denies chest pain, leg edema, palpitations or racing heartbeat Respiratory/Chest Respiratory/Chest: Denies cough, dyspnea or dyspnea on exertion Gastrointestinal Gastrointestinal: Denies abdominal pain, diarrhea, nausea or vomiting Genitourinary Genitourinary ED: Denies dysuria, hematuria or urinary frequency Musculoskeletal Musculoskeletal: Denies back pain, extremity pain or neck pain Integumentary Denies rash or wounds Neurologic Neurologic: Reports other Details: Confusion. ; Denies headache(s), paresthesias or weakness EXAM Physical Exam Const Vital Signs: 09/20/23 18:50 09/20/23 20:32 Temperature 97.9 F Temperature Source Temporal Pulse Rate 54 L Respiratory Rate 18 Blood Pressure 122/84 H Blood Pressure Mean 96 Pulse Ox 96 Oxygen Delivery Method Room Air Room Air Positive well nourished and well developed Constitutional Narrative: Nontoxic General Appearance ED: well developed and NAD HEENT Reports moist mucous membranes normocephalic and atraumatic Eyes PERRL, EOMs intact bilaterally and conjunctivae normal General Eye ED: Yes normal appearance of both eyes Neck no lymphadenopathy and supple General: Negative for tenderness Chest Wall Chest: Negative for tenderness Resp normal respiratory effort and normal air movement Effort and Inspection: symmetric chest movement; Negative for respiratory distress Cardio regular rate, regular rhythm and no murmurs Peripheral Pulses: pulses 2+ throughout GI normal to inspection, nondistended, normoactive bowel sounds and non-tender Palpation: Negative for guarding or rebound tenderness present Back/Spine no CVA tenderness and no thoracic nor lumbar tenderness Extremity normal to inspection General Extremety ED: Negative for edema or tenderness General Extremity: Negative for edema Neuro no sensory deficits noted Neuro Narrative: Alert to person place could not tell me the year. Sensorium / Orientation: awake and alert Skin no rashes or lesions noted and no wounds MDM MDM MDM Narrative Medical decision making narrative: Interventions / MDM: Differential diagnosis: Hepatic encephalopathy, history of cirrhosis, medication noncompliance Diagnosis considered but do not suspect: N/A My EKG interpretation: Sinus rate of 49, no ST changes isolated T wave version leads III. Nonspecific. Imaging independently reviewed and interpreted by myself: 1 view chest x-ray question interstitial edema External documents reviewed: N/A Test considered but not ordered:N/A ED course: Patient on time oxygen, vital signs stable slight bradycardia however she is on propranolol. Workup initiated through triage for increasing confusion with cirrhosis. EKG is nonspecific findings chest x-ray negative. Labs with ammonia level of 87. Reported by brother she was unstable gait. She was treated with her lactulose and rifaximin in the ED she took it orally well. She is ambulated with a stable gait. Discussed with patient and brother, take her medication she is stable for potential outpatient management with continuation of her medications. However brother states he works throughout the day and is unable to make sure she takes her medications. She does have slight encephalopathy, therefore I spoke with hospitalist Dr. Naylor who will evaluate for admission. Noted questionable interstitial edema on chest x-ray, she denies any cough or any dyspnea symptoms pulse ox 96% on room air. 2215: Patient evaluated by hospitalist, Dr. Naylor, he spent time with patient and brother. He discussed his plan of care as an inpatient with her home dosing, and no different plan with her current home regimen. Brother states he would prefer to take her home if that is the case. Encourage patient him to continue her home regimen. If symptoms worsen to return to ED for reevaluation. Re-evaluation: stable Disposition discussed with patient/family/significant other: Patient and brother Case discussed with consulting clinician: Hospitalist This note was generated with [employer] dictation software. It may contain incorrect words, spelling, and punctuation that were not noted in checking the note before signing. Lab Data Attestation: I reviewed the patient's lab results. Labs: Laboratory Results - last 24 hr 09/20/23 09/20/23 20:00 21:30 WBC 5.8 RBC 4.90 Hgb 16.1 H Hct 48.0 H MCV 98.0 MCH 32.9 H MCHC 33.5 RDW Std Deviation 47.2 H RDW Coeff of Stephon 13.1 Plt Count 88 L MPV 11.2 Immature Gran % (Auto) 0.200 Neut % (Auto) 57.9 Lymph % (Auto) 24.9 Rhea % (Auto) 10.1 H Eos % (Auto) 5.7 H Baso % (Auto) 1.2 H Absolute Neuts (auto) 3.3 Absolute Lymphs (auto) 1.43 Nucleated RBC % 0 Sodium 142 Potassium 4.5 Chloride 112 H Carbon Dioxide 28.0 Anion Gap 2 L BUN 10 Creatinine 0.84 Est GFR (MDRD) Af Amer 91 Est GFR (MDRD) Non-Af 75 BUN/Creatinine Ratio 12.0 Glucose 125 H Calcium 9.5 Total Bilirubin 1.40 H Direct Bilirubin 0.51 H AST 26 ALT 27 Alkaline Phosphatase 168 H Ammonia 87.0 H Total Protein 6.9 Albumin 3.1 L Globulin 3.8 Urine Color Yellow Urine Clarity Sl. Cloudy Urine pH 7.0 Ur Specific [place] 1.015 Urine Protein 30 H Urine Glucose (UA) Normal Urine Ketones 5 H Urine Occult Blood 10 H Urine Nitrite Negative Urine Bilirubin 1 H Urine Urobilinogen 8 H Ur Leukocyte Esterase 25 H Urine RBC 0 SEEN Urine WBC 0-5 SEEN Ur Squamous Epith Cells 0-5 SEEN Urine Bacteria 1+ Urine Mucus 0 SEEN Ethyl Alcohol < 3.0 Radiography Diagnostic Testing: Clinical Impression(s) from Imaging Studies Chest X-Ray 09/20/23 20:15 IMPRESSION: Question mild pulmonary interstitial edema. Clinical correlation recommended. Electronically Signed: Vinicius Chavez MD at 20:32 EST Reading Location ID and State: [facility] / [place] Tel , Service support , Discharge Plan Triage Chief Complaint: Confusion ED Provider: Harjeet Mccarty Dx/Rx/DC Orders Clinical Impression: Hepatic encephalopathy, Cirrhosis, Medical non-compliance Instructions: Hepatic Encephalopathy Prescriptions: No Action Xifaxan 550 mg tablet 550 mg PO BID Patient Comments: TAKE 1 TABLET BY MOUTH TWICE DAILY loratadine [Claritin] 10 mg tablet 10 mg PO DAILY propranolol 40 mg tablet 60 mg PO BID 30 Days Qty: 90 2RF furosemide 40 mg tablet 40 mg PO BID 30 Days Qty: 60 2RF Rx Instructions: Hold for SBP less than 100 mmHg ferrous sulfate [FeroSul] 325 mg (65 mg iron) tablet 325 mg PO Q OTHER DAY Patient Comments: take 1 tablet by mouth every other day bupropion HCl 300 mg tablet extended release 24 hr 300 mg PO DAILY Patient Comments: take 1 tablet by mouth once daily spironolactone 25 mg Tablet 50 mg PO DAILY 30 Days Qty: 60 2RF Rx Instructions: Hold if serum potassium more than 5.0. citalopram 40 mg tablet 20 mg PO DAILY Qty: 30 0RF lactulose 10 gram/15 mL solution 30 ml PO Q4H Qty: 946 0RF quetiapine [Seroquel] 50 mg tablet 50 mg PO QHS Qty: 30 0RF prazosin 1 mg capsule 3 mg PO QHS ondansetron 4 mg tablet,disintegrating 4 mg PO Q8H PRN (Reason: nausea and vomiting) Patient Comments: DISSOLVE 1 TABLET IN MOUTH TWICE DAILY NEEDED FOR NAUSEA ursodiol 300 mg capsule 300 mg PO BID Qty: 180 3RF Primary Care Provider: Luz Dhaliwal NP Referrals: Luz Dhaliwal NP, [facility] [Primary Care Provider] - 1 Day Activity Restrictions/Additional Instructions: Take your home lactulose and rifaximin as scheduled. Follow-up with your doctor. Return to the ED for reevaluation if any worsening symptoms. Disposition Disposition: Home, Self Care Discharge Date/Time: 09/20/23 22:45
[2023-09-20 21:37] LABS: Color, Urine Yellow (Yellow); Glucose, Dipstick Normal (Normal); Ketone-Dipstick 5 mg/dl (Negative); Leukocyte Esterase-Dipstick 25 /ul (Negative); Mucous, Urine 0 SEEN /hpf (<or=2+); Nitrite-Dipstick Negative (Negative); Occult Blood-Urine 10 /ul (Negative); Protein-Dipstick 30 mg/dl (Negative); Red Blood Cells-Urine 0 SEEN /hpf (0-5); Specific Gravity, Urine 1.015 (1.002-1.030); Urine Clarity Sl. Cloudy (Clear); Urine Urobilinogen 8 mg/dl (Normal)
[2023-09-20 21:53] LABS: Urine Bilirubin Dipstick 1 mg/dL (Negative)
[2023-09-20 21:54] LABS: Bacteria 1+ /hpf (None Seen); Squamous Epithelial Cells - UA 0-5 SEEN /hpf (5-10); White Blood Cells 0-5 SEEN /hpf (0-5)
--- NOTE | 2023-09-20 23:09 | CON.PCM.HO_ITS ---
Assessment & Plan Assessment/Plan (1) Hepatic encephalopathy: PLAN: Due to compliance issues. Patient to continue taking her lactulose and rifaximin as normally scheduled. Brother says it is that he is going to take her home when I told him that I would not be do anything differently than she is doing at home. Did review her numbers and stated that they are actually better than they were on the . Did also review with them both that case management's assessment in regards to additional home services but those were declined by the patient due to finances. He is stating that something needs to be figured out for that. But sounds like things are already underway in regards to getting her disability. PLAN: Plan Greater than 45 minutes of which greater than 50% of time was at bedside, reviewing the patient's case with her and her brother. Also review seeing case management notes with them. HPI Consult Data Date of Consult: 09/20/23 HPI Narrative Reason for Consultation: Consult requested for admission for confusion. HPI Narrative: EVER VERDUZCO, is a 52 F who presents with confusion. Patient had not been feeling well and when she does not feel well she does not take her lactulose and she gets more confused. Patient lives with her brother who brought her here. Ammonia level was noted to be 87. Patient has been in and out of various hospitals over the past couple weeks. Was just here on the where her ammonia level at that time was 271. Brother is overwhelmed as he drives the [employer] and cannot be there to attend to her [id number]. He states that they do not have proper set up at home where she does not have [id number] care that feels that she should have. I did review case management notes and some these issues have been addressed with them before but they have not been willing to pay for services at home. He states that they cannot afford it at this time as she does not have disability yet. He feels that she needs to get multitude lactulose to get her numbers normal. I told him that I would not be doing that as she did receive lactulose already in the emergency room and just have her on her normal dosing. He stated that he mise will just take her home then. [facility] Medical History Acidosis Alcohol abuse Alcohol use Alcoholic cirrhosis of liver without ascites Anxiety and depression Bipolar disorder Cirrhosis Depression Easy bruising Edema Eosinophilia, unspecified Essential (primary) hypertension Former smoker Gastric reflux Hepatic encephalopathy Hepatitis History of edema History of IBS History of pain when walking Hx of scarlet fever Immunity status testing Iron deficiency anemia Lactic acidosis Low urine output Neutropenia Pancytopenia Portal hypertension Post-menopausal Restless legs Shortness of breath on exertion Splenomegaly Thrombocytopenia Urea cycle metabolism disorder UTI (urinary tract infection) Wears dentures Wears glasses Home Medications rifaximin 550 mg tablet (Xifaxan) 550 mg PO BID cirrhosis 10/28/22 [History Last Taken Unknown] bupropion HCl 300 mg 24 hr tablet, extended release 300 mg PO DAILY depression 11/18/22 [History Last Taken Unknown] spironolactone 25 mg tablet 50 mg (2 x 25 mg) PO DAILY diuretic 30 days #60 tabs 11/20/22 [Rx Last Taken Unknown] ursodiol 300 mg capsule 300 mg PO BID cholesterol #180 caps 12/15/22 [Rx Last Taken Unknown] loratadine 10 mg tablet (Claritin) 10 mg PO DAILY allergies 04/19/23 [History Last Taken Unknown] ondansetron 4 mg disintegrating tablet 4 mg PO Q8H PRN nausea and vomiting 06/09/23 [History Last Taken Unknown] prazosin 1 mg capsule 3 mg PO QHS 06/09/23 [History Last Taken Unknown] ferrous sulfate 325 mg (65 mg iron) tablet (FeroSul) 325 mg PO Q OTHER DAY anemia 08/30/23 [History Last Taken Unknown] furosemide 40 mg tablet 40 mg PO BID diuretic 1 month #60 tabs 08/30/23 [Rx Last Taken Unknown] propranolol 40 mg tablet 60 mg (1.5 x 40 mg) PO BID 30 days #90 tabs 08/30/23 [Rx Last Taken Unknown] citalopram 40 mg tablet 20 mg (1/2 x 40 mg) PO DAILY depression #30 tabs 09/15/23 [Rx Last Taken Unknown] lactulose 10 gram/15 mL oral solution 30 ml PO Q4H liver #946 mL 09/15/23 [Rx Last Taken Unknown] quetiapine 50 mg tablet (Seroquel) 50 mg PO QHS sleep #30 tabs 09/15/23 [Rx Last Taken Unknown] Allergy/AdvReac Type Severity Reaction Status Date / Time No Known Allergies Allergy Verified 09/20/23 18:50 Family History Grandmother Breast cancer Surgical History History of ankle surgery Hx of section Hx of cholecystectomy Hx of hand surgery Hx of shoulder surgery Hx of total knee replacement Social History household members: family Smoking Status: Never smoker Electronic Cigarette Use: with nicotine how long ago did patient quit smoking: Transitioned from cig tob to vaping, heavy currently. alcohol intake: former year quit: 2021 details: 11/26/21 substance use type: other details: Former amphetamine/meth use, clean since 11/26/21. ROS Review of Systems ROS Unobtainable: due to encephalopathy Physical Exam Narrative Confused but pleasant. Nontoxic. Remainder the exam was discontinued as the patient's brother and was going to be taken out of the hospital. Lab / Micro Data 09/20/23 20:00 09/20/23 20:00 Labs: Laboratory Results - last 24 hr 09/20/23 20:00: WBC 5.8, RBC 4.90, Hgb 16.1 H, Hct 48.0 H, MCV 98.0, MCH 32.9 H, MCHC 33.5, RDW Std Deviation 47.2 H, RDW Coeff of Stephon 13.1, Plt Count 88 L, MPV 11.2, Immature Gran % (Auto) 0.200, Neut % (Auto) 57.9, Lymph % (Auto) 24.9, [place] % (Auto) 10.1 H, Eos % (Auto) 5.7 H, Baso % (Auto) 1.2 H, Absolute Neuts (auto) 3.3, Absolute Lymphs (auto) 1.43, Nucleated RBC % 0, Sodium 142, Potassium 4.5, Chloride 112 H, Carbon Dioxide 28.0, Anion Gap 2 L, BUN 10, Creatinine 0.84, Est GFR (MDRD) Af Amer 91, Est GFR (MDRD) Non-Af 75, BUN/Creatinine Ratio 12.0, Glucose 125 H, Calcium 9.5, Total Bilirubin 1.40 H, Direct Bilirubin 0.51 H, AST 26, ALT 27, Alkaline Phosphatase 168 H, Ammonia 87.0 H, Total Protein 6.9, Albumin 3.1 L, Globulin 3.8, Ethyl Alcohol < 3.0 09/20/23 21:30: Urine Color Yellow, Urine Clarity Sl. Cloudy, Urine pH 7.0, Ur Specific [place] 1.015, Urine Protein 30 H, Urine Glucose (UA) Normal, Urine Ketones 5 H, Urine Occult Blood 10 H, Urine Nitrite Negative, Urine Bilirubin 1 H, Urine Urobilinogen 8 H, Ur Leukocyte Esterase 25 H, Urine RBC 0 SEEN, Urine WBC 0-5 SEEN, Ur Squamous Epith Cells 0-5 SEEN, Urine Bacteria 1+, Urine Mucus 0 SEEN Imagaing Radiology Impression Chest X-Ray 09/20/23 20:15 IMPRESSION: Question mild pulmonary interstitial edema. Clinical correlation recommended. Electronically Signed: Vinicius Chavez MD at 20:32 EST Reading Location ID and State: [address] [place] [address] Tel , Service support , Charges/Coding Visit Charges Office Visits / Consults: [id number] OP Consult L2
== END 2023-09-20 22:45 | disposition home or self-care (01) ==
PROVIDERS: Emergency Provider Emergency Medicine; PCP Nurse Practitioner Family; Visit Provider Emergency Medicine
DX: R41.0 Disorientation, unspecified (principal); K76.82 Hepatic encephalopathy; K70.30 Alcoholic cirrhosis of liver without ascites; Z91.199 Patient's noncompliance with other medical treatment and regimen due to unspecified reason; Z87.891 Personal history of nicotine dependence; I10 Essential (primary) hypertension; Z79.899 Other long term (current) drug therapy; F41.8 Other specified anxiety disorders; R60.9 Edema, unspecified; Z90.49 Acquired absence of other specified parts of digestive tract; Z96.659 Presence of unspecified artificial knee joint
CPT/HCPCS: 71045; 80048; 80076; 81001; 82077; 82140; 85025; 93005; 99284; A4216